=== PATIENT | female | born 1960 | race Caucasian/White ===

== ENCOUNTER 2019-08-12 12:23 | Outpatient (CLI) | payer OTHER, SELFPAY ==
[2019-08-12 12:47] LABS: Basophils Absolute Auto 0.04 K/mm3 (0.00-0.10); Basophils Percent Auto 0.6 % (0.0-1.0); Eosinophils Absolute Auto 0.31 K/mm3 (0.02-0.50); Eosinophils Percent Auto 4.7 % (1.0-6.0); Hematocrit 38.7 % (35.0-49.0); Hemoglobin 12.4 g/dL (12.0-15.0); Immature Granulocyte Absolute 0.02 K/mm3 (0.00-0.00); Immature Granulocyte Percent A 0.3 % (0.0-0.0); Lymphocytes Absolute Auto 1.89 K/mm3 (1.10-4.50); Lymphocytes Percent Auto 28.4 % (18.0-42.0); Mean Corpuscular Hemoglobin 27.1 pg (27.0-31.0); Mean Corpuscular Volume 84.7 fL (78.0-102.0); Mean Platelet Volume 9.3 fl (9.2-11.8); Monocytes Absolute Auto 0.66 K/mm3 (0.10-0.90); Monocytes Percent Auto 9.9 % (2.0-11.0); Neutrophils Absolute Auto 3.7 K/mm3 (1.7-7.2); Neutrophils Percent Auto 56.1 % (50.0-70.0); Platelet Count Result 254 K/mm3 (150-420); Red Blood Count 4.57 M/mm3 (4.20-5.40); Red Cell Distribution Width 15.1 % (11.6-14.4); White Blood Count 6.7 K/mm3 (4.8-10.8)
[2019-08-12 12:48] LABS: Add Urine Microscopic? YES; Appearance Urine Clear (Clear); Bilirubin Urine Negative (Negative); Blood Urine Negative (Negative); Color Urine Yellow (Yellow); Glucose Urine UA Negative (Negative); Ketones Urine Negative (Negative); Leukocyte Esterase Ur 1+ (Negative); Nitrate Urine Negative (Negative); Protein Urine Negative (Negative); Urobilinogen Urine 0.2 mg/dL (0.2-1.0)
[2019-08-12 13:01] LABS: Bacteria Urine 2+ /hpf; RBC Urine 0-2 /hpf (0-2); Squamous Epithelial Cell Urine Moderate /hpf (Few); WBC Urine 16-20 /hpf (0-3)
[2019-08-12 13:37] LABS: Alanine Aminotransferase 39 U/L (14-59); Albumin Level 3.3 g/dL (3.4-5.0); Alkaline Phosphatase 72 U/L (46-116); Anion Gap 13.4 mmol/L (7-16); Aspartate Amino Transferase 25 U/L (15-37); Bilirubin,Total 0.4 mg/dL (0.00-1.00); Blood Urea Nitrogen 18 mg/dL (7-18); Calcium 8.5 mg/dL (8.5-10.1); Carbon Dioxide 26 mmol/L (21-32); Chloride 107 mmol/L (98-108); Cholesterol 158 mg/dL (0-200); Estimated Glomerular Filt Rate 56; Free T3 2.25 pg/mL (2.18-3.98); Free T4 Free Thyroxine 0.89 ng/dL (0.76-1.46); Glucose 88 mg/dL (70-99); HDL Direct 44 mg/dL (40-60); LDL Cholesterol Calculated 97 mg/dL (<130); Osmolality Calculated 294 mOsm/kg (285-295); Potassium 4.4 mmol/L (3.5-5.1); Sodium 142 mmol/L (136-145); Thyroid Stimulating Hormone 4.94 uIU/mL (0.36-3.74); Total Protein 6.9 g/dL (6.4-8.2); Triglycerides 83 mg/dL (0-150)
[2019-08-14 20:14] LABS: Vitamin D 25 Hydroxy 32 ng/mL (30-100)
== END 2019-08-12 12:24 | disposition home or self-care (01) ==
LOC: CHSLAB 12:27
PROVIDERS: PCP Internal Medicine; Visit Provider Internal Medicine
DX: I12.9 Hypertensive chronic kidney disease with stage 1 through stage 4 chronic kidney disease, or unspecified chronic kidney disease (principal); N18.2 Chronic kidney disease, stage 2 (mild); M81.0 Age-related osteoporosis without current pathological fracture; E03.4 Atrophy of thyroid (acquired); E78.2 Mixed hyperlipidemia; E87.2 Acidosis; E21.0 Primary hyperparathyroidism
CPT/HCPCS: 36415; 80053; 80061; 81001; 82306; 84439; 84443; 84481; 85025

== ENCOUNTER 2019-10-24 10:34 | Emergency (ER) | payer OTHER, SELFPAY ==
--- NOTE | ~2019-10-24 | XR_ITS ---
XR chest 2V DATE: 10/24/2019 11:48 INDICATION: Hemoptysis this morning TECHNIQUE: 2 views COMPARISON: 09/08/2012 PA and lateral chest FINDINGS: Normal heart size. There is mild aortic unfolding/tortuosity. No hilar or mediastinal enlar gement is evident. No pulmonary infiltrate or consolidation, pleural effusion or pulmonary vascular congestion or pneumo thorax. Surgical clips, right upper quadrant, likely due to cholecystectomy. Diffuse osteopenia. Rounded approximately 1.5 cm opacity of uncertain significance overlying a mid to lower lumbar verteb ral body on the lateral view. Consider lumbar spine radiographic examination. IMPRESSION: No active cardiopulmonary disease Reviewed, dictated and finalized at location A.
--- NOTE | ~2019-10-24 | CT_ITS ---
EXAMINATION: CTA chest PE protocol DATE: 10/24/2019 12:50 INDICATION: Positive d-dimer. Hemoptysis. TECHNIQUE: Computed tomography angiography (CTA) of the chest was performed with 100 mL Omnipaque-350 intravenous contrast timed to evaluate the pulmonary arteries. Coronal maximum intensity projection 3D-reconstructions were created by the technologist. Automated exposure control and iterative reconst ruction technique were employed. Exam dose: 480.63 mGy-cm total exam DLP. COMPARISON: 10/23/2021 view chest FINDINGS: There is diagnostic contrast enhancement of the pulmonary arteries and no evidence of pulmo nary embolism. No thoracic aortic aneurysm or dissection. No hilar or mediastinal mass lesion or lymphadenopathy. There is mild patchy groundglass density of the lungs which may indicate small airways disease. No pu lmonary consolidation or pulmonary mass lesion is evident. No pleural effusion. No pneumothorax. Postoperative change of the stomach consistent with gastric bypass surgery. Status post cholecystectomy. Prominent bilateral nephrolithiasis. Hemangioma of T12. IMPRESSION: No evidence of pulmonary embolism Status post cholecystectomy Status post gastric bypass surgery. Reviewed, dictated and finalized at Location A. Reviewed, dictated and finalized at location A.
[2019-10-24 11:00] VITALS: BP 152/75; PULSE 57; RESP 16; TEMP 36.7; O2SAT 96
--- NOTE | 2019-10-24 11:15 | ECG_ITS ---
Measurements Intervals [place] Rate: 48 P: 56 OR: 173 QRS: -24 QRSD: 105 T: -23 QT: 453 QTc: 408 Interpretive Statements SINUS BRADYCARDIA EARLY PRECORDIAL R/S TRANSITION VOLTAGE CRITERIA FOR LVH T WAVE ABNORMALITY IN INFERIOR LEADS- CONSIDER ISCHEMIA ABNORMAL ECG Electronically Signed On 10-24-2019 11:30:57 CDT by Jean Mantilla D.O.
[2019-10-24 11:34] LABS: Basophils Absolute Auto 0.04 K/mm3 (0.00-0.10); Basophils Percent Auto 0.4 % (0.0-1.0); Eosinophils Absolute Auto 0.23 K/mm3 (0.02-0.50); Eosinophils Percent Auto 2.6 % (1.0-6.0); Hematocrit 37.6 % (35.0-49.0); Immature Granulocyte Absolute 0.03 K/mm3 (0.00-0.00); Immature Granulocyte Percent A 0.3 % (0.0-0.0); Lymphocytes Absolute Auto 1.68 K/mm3 (1.10-4.50); Lymphocytes Percent Auto 18.8 % (18.0-42.0); Mean Corpuscular HGB Conc 31.9 g/dL (32.0-36.0); Mean Corpuscular Hemoglobin 27.6 pg (27.0-31.0); Mean Corpuscular Volume 86.6 fL (78.0-102.0); Mean Platelet Volume 9.4 fl (9.2-11.8); Monocytes Absolute Auto 0.74 K/mm3 (0.10-0.90); Monocytes Percent Auto 8.3 % (2.0-11.0); Neutrophils Absolute Auto 6.2 K/mm3 (1.7-7.2); Neutrophils Percent Auto 69.6 % (50.0-70.0); Platelet Count Result 321 K/mm3 (150-420); Red Blood Count 4.34 M/mm3 (4.20-5.40); Red Cell Distribution Width 14.6 % (11.6-14.4); White Blood Count 8.9 K/mm3 (4.8-10.8)
[2019-10-24 11:49] LABS: INR 1.1; Partial Thromboplastin Time 26.9 SEC (22.3-31.6); Prothrombin Time 11.4 Seconds (9.64-11.0)
[2019-10-24 11:55] LABS: Alanine Aminotransferase 47 U/L (14-59); Alkaline Phosphatase 84 U/L (46-116); Anion Gap 15.3 mmol/L (7-16); Aspartate Amino Transferase 33 U/L (15-37); Bilirubin,Total 0.3 mg/dL (0.00-1.00); Blood Urea Nitrogen 26 mg/dL (7-18); Calcium 8.9 mg/dL (8.5-10.1); Carbon Dioxide 25 mmol/L (21-32); Chloride 105 mmol/L (98-108); Estimated Glomerular Filt Rate 49; Glucose 95 mg/dL (70-99); Osmolality Calculated 296 mOsm/kg (285-295); Potassium 4.3 mmol/L (3.5-5.1); Sodium 141 mmol/L (136-145); Total Protein 7.6 g/dL (6.4-8.2); Troponin I < 0.02 ng/mL (0.00-0.056)
[2019-10-24 11:56] LABS: D Dimer 0.85 mg/L (0.19-0.50)
[2019-10-24 12:17] LABS: Appearance Urine Sl Cloudy (Clear); Bilirubin Urine Negative (Negative); Color Urine Yellow (Yellow); Glucose Urine UA Negative (Negative); Ketones Urine Negative (Negative); Leukocyte Esterase Ur 3+ (Negative); Nitrate Urine Negative (Negative); Protein Urine 1+ (Negative); Specific Grav Ur 1.015 (1.010-1.020); Urobilinogen Urine 0.2 mg/dL (0.2-1.0); pH Urine 7.5 (5.0-8.0)
[2019-10-24 12:25] LABS: Add Urine Microscopic? YES; Bacteria Urine 1+ /hpf; Blood Urine Trace-Intact (Negative); RBC Urine 0-2 /hpf (0-2); Squamous Epithelial Cell Urine Rare /hpf (Few); WBC Urine 31-50 /hpf (0-3)
--- NOTE | 2019-10-24 13:12 | ED.GENADULT ---
HPI - General Adult General Chief complaint: Upper Respiratory Infection Stated complaint: Coughing up blood Source: patient Mode of arrival: ambulatory History of Present Illness HPI narrative: this is a 59-year-old female with some history of a chronic cough that she has had for 4 months with some nasal discharge and drainage and quite a bit of sputum production that presents with an episode of hemoptysis, where she saw some blood is tinged sputum, with no fever chills no shortness of breath no chest pain no nausea vomiting no diarrhea constipation. Patient has a history of a renal tubular acidosis, with some hyperparathyroidism, with history of trichotillomania and history of kidney stones. Currently the patient denies having shortness of breath cough is currently productive of blood-tinged sputum otherwise mainly related to postnasal drip and chronic cough possibly related to sinus congestion. Patient was also treated for urinary tract infection and recently finished a course of antibiotics, currently there is no dysuria no suprapubic tenderness. Onset (ago): day(s) Severity: mild Exacerbating factors: other ( Coughing) Associated symptoms: cough Treatments prior to arrival: none Related Data Home Medications Medication Instructions Recorded Confirmed amitriptyline 10/24/19 calcitriol 10/24/19 cetirizine [Allergy Relief mg 10/24/19 (cetirizine)] fluoxetine mg 10/24/19 levothyroxine 10/24/19 lisinopril 10/24/19 metoprolol succinate PO 10/24/19 nitrofurantoin monohyd/m-cryst 10/24/19 potassium chloride meq PO 10/24/19 sodium bicarbonate 10/24/19 10/24/19 Allergies Allergy/AdvReac Type Severity Reaction Status Date / Time ciprofloxacin [From Cipro] Allergy Hives Verified 10/24/19 13:04 Review of Systems Review of Systems: All systems reviewed & are unremarkable except as noted in HPI and below [facility] Past Medical History Medical History HTN (hypertension) Hyperparathyroidism Renal tubular acidosis Trichotillomania Exam Const: General: no acute distress and alert Orientation/consciousness: patient oriented x3 HENMT: Head: normal to inspection Ears: TM's normal bilaterally Mouth: Yes Normal oral and palatal mucosa present and Yes moist mucous membranes Throat: posterior oropharynx normal Eyes: Conjunctivae: conjunctivae normal Pupils: Equal, round and reactive pupils present EOM: EOMs intact bilaterally Neck: Neck: normal visual inspection and no lymphadenopathy Chest: Chest palpation & inspection: normal inspection of the chest Resp: Effort & Inspection: normal respiratory effort Auscultation: clear to auscultation bilaterally Cardio: Rate: regular rate and bradycardic GI: GI Palp: Yes Soft to palpation Urinary Catheter: Urinary Catheter: patent and draining Back/Spine/Pelvis: Back: no CVA tenderness Skin: General skin exam: normal color Rashes: no rashes Neuro: General: patient oriented x3 Extrem: General: normal to inspection Course Course Emergency Course: reassessment of patient, patient vitals are stable she is breathing easily and comfortably with currently no cough no fever or chills and no chest pain. Vital Signs Vital signs: Vital Signs Temperature 36.7 C 10/24/19 11:00 Pulse Rate 57 L 10/24/19 11:00 Respiratory Rate 16 10/24/19 11:00 Blood Pressure 152/75 H 10/24/19 11:00 Pulse Oximetry 96 10/24/19 11:00 Temperature 36.7 C 10/24/19 11:00 Pulse Rate 57 L 10/24/19 11:00 Respiratory Rate 16 10/24/19 11:00 Blood Pressure 152/75 H 10/24/19 11:00 Pulse Oximetry 96 10/24/19 11:00 Medical Decision Making Vital Signs Vital Signs: Vital Signs Temperature 36.7 C 10/24/19 11:00 Pulse Rate 57 L 10/24/19 11:00 Respiratory Rate 16 10/24/19 11:00 Blood Pressure 152/75 H 10/24/19 11:00 Pulse Oximetry 96 10/24/19 11:00 Temperature 36.7 C
[2019-10-24 13:28] VITALS: BP 111/62
== END 2019-10-24 13:29 | disposition home or self-care (01) ==
PROVIDERS: Emergency Provider Emergency Medicine; PCP Internal Medicine
DX: J40 Bronchitis, not specified as acute or chronic (principal); R04.2 Hemoptysis
CPT/HCPCS: 36415; 71046; 71275; 80053; 81001; 84484; 85025; 85380; 85610; 85730; 93005; 99284; Q9965

== ENCOUNTER 2019-11-14 09:28 | Outpatient (CLI) | payer OTHER, SELFPAY ==
--- NOTE | ~2019-11-14 | US_ITS ---
EXAMINATION: US retroperitoneal comp DATE: 11/14/2019 11:28 INDICATION: hypertension. Stage III chronic kidney disease. TECHNIQUE: Multiple ultrasound grayscale images of the kidneys were obtained. COMPARISON: CT chest dated 10/24/2019 FINDINGS: The right kidney measures 11.2 x 4.0 x 4.4 cm. The left kidney measures 9.4 x 4.1 x 4.4 cm. The kidne ys demonstrate normal echogenicity. Prominent shadowing stones in calyces throughout the right kidney the largest measuring 1.6 cm. There is no hydronephrosis in either kidney. The bladder is normal. IMPRESSION: 1. Right-sided nephrolithiasis. No hydronephrosis. Reviewed, dictated and finalized at location A.
== END 2019-11-14 09:29 | disposition home or self-care (01) ==
PROVIDERS: PCP Internal Medicine; Visit Provider Internal Medicine Nephrology
DX: I12.9 Hypertensive chronic kidney disease with stage 1 through stage 4 chronic kidney disease, or unspecified chronic kidney disease (principal); N18.3 Chronic kidney disease, stage 3 (moderate)
CPT/HCPCS: 76770

== ENCOUNTER 2019-11-20 11:40 | Outpatient (CLI) | payer OTHER, SELFPAY ==
--- NOTE | ~2019-11-20 | XR_ITS ---
MODIFIED ESOPHAGRAM HISTORY: Dysphagia. TECHNIQUE: Modified barium esophagram was performed on 11/20/2019. I administered fluoroscopy and perf ormed the exam with speech pathologist. Patient was seated for lateral fluoroscopic imaging for rosaline stion of thin liquids, pudding, solids and quantified amounts, followed by thin liquids in uncontroll ed amounts. This was recorded on tape. No fluoroscopic images were recorded. The DAP for this procedu re was 0.994 Gycm2. The amount of fluoroscopy time used during this procedure was 1.3 minutes. FINDINGS: Oral stage: Adequate function. Pharyngeal stage: Adequate function. Cervical/esophageal stage: Adequate function. IMPRESSION: Patient tolerated regular consistency oral feedings in the upright position. Please wesley elate with speech pathologist findings and specific feeding recommendations. Reviewed, dictated and finalized at location D. IMPRESSION: Patient tolerated regular consistency oral feedings in the upright position. Please correlate with speech pathologist findings and specific feedi ng recommendations.
[2019-11-20 13:22] LABS: Add Urine Microscopic? YES; Appearance Urine Clear (Clear); Bilirubin Urine Negative (Negative); Blood Urine Negative (Negative); Color Urine Yellow (Yellow); Glucose Urine UA Negative (Negative); Ketones Urine Negative (Negative); Leukocyte Esterase Ur 1+ (Negative); Nitrate Urine Negative (Negative); Protein Urine Negative (Negative); Specific Grav Ur 1.015 (1.010-1.020); Urobilinogen Urine 0.2 mg/dL (0.2-1.0)
[2019-11-20 13:26] LABS: RBC Urine 0-2 /hpf (0-2); WBC Urine 16-20 /hpf (0-3)
[2019-11-20 13:27] LABS: Bacteria Urine 1+ /hpf; Squamous Epithelial Cell Urine Moderate /hpf (Few)
--- NOTE | 2019-11-20 17:35 | STOPEVAL ---
MODIFED BARIUM SWALLOW EVALUATION: Thank you for referring Louise Moore to [facility]. Attending Provider: Priyank Zepeda MD Referring Provider: ANSON Outpatient Evaluation: BERTA Start: 11/20/19 17:28 Freq: Status: Active Protocol: Document 11/20/19 12:00 BECHERERT (Rec: 11/20/19 17:35 BECHERERT [email or web address]) Therapy Assessment Status Assessment Status Assessment Status Evaluation Outpatient Past Medical History Past Medical History Source of Past Medical History Patient Neurological History Hx Neurological Disorders No Significant History Cardiovascular History Hx Cardiac Disorders No Significant History Respiratory History Hx Respiratory Disorders No Significant History Gastrointestinal History Hx Appendectomy Yes Hx Cholecystectomy Yes Hx Gastric Bypass Surgery Yes Genitourinary History Hx Kidney Stones Yes Endocrine History Hx Hyperthyroidism Yes Hx Other Endocrine Disorders Yes: THYROID SURGERY Psychosocial History Hx Other Psychiatric Disorders Yes: TRICHOTILLOMANIA Evaluation Information Problem Diagnosis dysphagia Onset few years Prior Level of Function Prior Swallow Level Prior Intake Method Oral Prior Diet Regular (Level 7 Diet) Prior Liquid Consistency Thin (Level 0 Diet) Comments Additional Prior Level of Function Reports that she can swallow Comments wrong even with saliva Pain Assessment Timing of Pain Assessment Timing of Pain Assessment Assessment Self Report Self Report Pain Level 0 Pain Scale Pain Scale Used Numeric (1 - 10) Pain Score Pain Score 0: Self Report Modified Barium Swallow Evaluation Recent Swallowing History Reports Dysphagia Yes: I swallow wrong and choke then I have a coughing fit Duration of Dysphagia few years per pt Dentition Comments good Consistency Thin Uncontrolled 1 Other Amount cup and straw Oral Preparatory Symptoms None Oral Phase Symptoms None Pharyngeal Phase Symptoms None Severity of Vallecular Residue None - 0% No Residue Severity of Pyriform Sinus Residue None - 0% No Residue 8 Point Laryngeal Penetration-Aspiration Material Does Not Enter Airway Scale Cervical/Esophageal Symptoms None Solid Consistency Method of Presentation Spoon Oral Preparatory Symptoms None Oral Phase Symptoms None Pharyngeal Phase Symptoms None Severity of Vallecular Residue None - 0% No Residue Severity of Pyriform Sinus Residue None - 0% No Residue 8 Point Laryngeal Penetration-Aspiration Material Does Not Enter Airway Scale
== END 2019-11-20 11:41 | disposition home or self-care (01) ==
LOC: CHSIMG 11:41
PROVIDERS: PCP Internal Medicine; Visit Provider Internal Medicine
DX: R13.10 Dysphagia, unspecified (principal); R31.9 Hematuria, unspecified
CPT/HCPCS: 81001; 87086; 87088; 92611

== ENCOUNTER 2020-06-29 12:06 | Outpatient (CLI) | payer OTHER, SELFPAY ==
[2020-06-29 12:43] LABS: Anion Gap 10 mmol/L (8-16); Blood Urea Nitrogen 18 mg/dL (7-18); Calcium 8.6 mg/dL (8.5-10.1); Carbon Dioxide 26 mmol/L (21-32); Chloride 103 mmol/L (98-108); Estimated Glomerular Filt Rate 46; Glucose 93 mg/dL (70-99); Osmolality Calculated 289 mOsm/kg (285-295); Phosphorus 4.6 mg/dL (2.6-4.7); Potassium 4.3 mmol/L (3.5-5.1); Sodium 139 mmol/L (136-145)
[2020-07-02 12:14] LABS: Vitamin D 25 Hydroxy 29 ng/mL (30-100)
[2020-07-03 14:18] LABS: Parathyroid Intact 48 pg/mL (14-64)
== END 2020-06-29 12:07 | disposition home or self-care (01) ==
PROVIDERS: PCP Internal Medicine
DX: E21.1 Secondary hyperparathyroidism, not elsewhere classified (principal)
CPT/HCPCS: 36415; 80048; 82306; 83970; 84100

== ENCOUNTER 2021-02-01 10:51 | Outpatient (CLI) | payer OTHER, SELFPAY ==
[2021-02-01 11:04] LABS: Collection Time Urine 24 HOURS
[2021-02-01 11:07] LABS: Basophils Absolute Auto 0.04 K/mm3 (0.00-0.10); Basophils Percent Auto 0.4 % (0.0-1.0); Eosinophils Absolute Auto 0.24 K/mm3 (0.02-0.50); Eosinophils Percent Auto 2.3 % (1.0-6.0); Hematocrit 34.4 % (35.0-49.0); Hemoglobin 10.7 g/dL (12.0-15.0); Immature Granulocyte Absolute 0.03 K/mm3 (0.00-0.00); Immature Granulocyte Percent A 0.3 % (0.0-0.0); Lymphocytes Percent Auto 19.5 % (18.0-42.0); Mean Corpuscular HGB Conc 31.1 g/dL (32.0-36.0); Mean Corpuscular Hemoglobin 26.2 pg (27.0-31.0); Mean Corpuscular Volume 84.1 fL (78.0-102.0); Mean Platelet Volume 9.6 fl (9.2-11.8); Monocytes Absolute Auto 0.93 K/mm3 (0.10-0.90); Monocytes Percent Auto 9.1 % (2.0-11.0); Neutrophils Percent Auto 68.4 % (50.0-70.0); Platelet Count Result 300 K/mm3 (150-420); Red Blood Count 4.09 M/mm3 (4.20-5.40); Red Cell Distribution Width 15.1 % (11.6-14.4); White Blood Count 10.2 K/mm3 (4.8-10.8)
[2021-02-01 11:16] LABS: Creatinine Urine 24.95 mg/dL (40-278); Patient Weight 221 Lbs
[2021-02-01 11:18] LABS: Total Volume 24 Hour Urine 3700 ml
[2021-02-01 11:32] LABS: Creatinine Clearance Urine 17.3 ml/min (97-137); Serum Creat 3.11
[2021-02-01 11:35] LABS: Alanine Aminotransferase 35 U/L (14-59); Albumin Level 3.2 g/dL (3.4-5.0); Alkaline Phosphatase 69 U/L (46-116); Anion Gap 9 mmol/L (8-16); Aspartate Amino Transferase 21 U/L (15-37); Bilirubin,Total 0.3 mg/dL (0.00-1.00); Blood Urea Nitrogen 37 mg/dL (7-18); Calcium 9.7 mg/dL (8.5-10.1); Carbon Dioxide 28 mmol/L (21-32); Chloride 103 mmol/L (98-108); Cholesterol 145 mg/dL (0-200); Estimated Glomerular Filt Rate 15; Glucose 91 mg/dL (70-99); HDL Direct 40 mg/dL (40-60); LDL Cholesterol Calculated 79 mg/dL (<130); Osmolality Calculated 298 mOsm/kg (285-295); Potassium 4.5 mmol/L (3.5-5.1); Sodium 140 mmol/L (136-145); Total Protein 7.2 g/dL (6.4-8.2); Triglycerides 129 mg/dL (0-150)
[2021-02-03 10:41] LABS: Parathyroid Intact 6 pg/mL (14-64)
== END 2021-02-01 10:52 | disposition home or self-care (01) ==
LOC: CHSLAB 10:53
PROVIDERS: PCP Internal Medicine; Visit Provider Internal Medicine Nephrology
DX: E21.1 Secondary hyperparathyroidism, not elsewhere classified (principal); I12.9 Hypertensive chronic kidney disease with stage 1 through stage 4 chronic kidney disease, or unspecified chronic kidney disease; N18.2 Chronic kidney disease, stage 2 (mild); E03.4 Atrophy of thyroid (acquired); E78.2 Mixed hyperlipidemia; R73.01 Impaired fasting glucose
CPT/HCPCS: 36415; 80053; 80061; 82575; 83036; 83970; 84100; 85025

== ENCOUNTER 2021-02-02 08:02 | Outpatient (NON) | payer OTHER, SELFPAY ==
[2021-02-02 08:09] LABS: Add Urine Microscopic? YES; Appearance Urine Clear (Clear); Bilirubin Urine Negative (Negative); Blood Urine Negative (Negative); Color Urine Light Yellow (Yellow); Glucose Urine UA Negative (Negative); Ketones Urine Negative (Negative); Leukocyte Esterase Ur 2+ (Negative); Nitrate Urine Negative (Negative); Protein Urine Negative (Negative); Urobilinogen Urine 0.2 mg/dL (0.2-1.0)
[2021-02-02 08:18] LABS: Bacteria Urine Trace /hpf; RBC Urine 0-2 /hpf (0-2); Squamous Epithelial Cell Urine Moderate /hpf (Few)
== END 2021-02-02 08:03 | disposition home or self-care (01) ==
LOC: CHSLAB 08:04
PROVIDERS: Visit Provider Internal Medicine
DX: E03.4 Atrophy of thyroid (acquired) (principal); I12.9 Hypertensive chronic kidney disease with stage 1 through stage 4 chronic kidney disease, or unspecified chronic kidney disease; N18.30 Chronic kidney disease, stage 3 unspecified; E78.2 Mixed hyperlipidemia; R73.01 Impaired fasting glucose
CPT/HCPCS: 81001

== ENCOUNTER 2021-02-05 10:13 | Outpatient (CLI) | payer OTHER, SELFPAY ==
--- NOTE | ~2021-02-05 | US_ITS ---
EXAMINATION: US retroperitoneal comp EXAM DATE: 02/05/2021 10:58 INDICATION: Acute renal impairment. History of kidney stones. TECHNIQUE: Multiple grayscale and Doppler images of the kidneys were obtained (by a technologist who performed the scan) and subsequently reviewed. There is no prior study for comparison. FINDINGS: Diffusely echogenic renal medullas bilaterally, multiple kidney stones. Some of these regio ns do demonstrate shadowing, or focal nephrolithiasis. No hydronephrosis. Bladder is unremarkable. Ri ght kidney measures 10.4 x 4.1 x 3.9 cm, left measuring 9.9 x 4.3 x 4.4 cm. IMPRESSION: Chronic bilateral nephrolithiasis. No hydronephrosis. Reviewed, dictated and finalized at location B.
== END 2021-02-05 10:14 | disposition home or self-care (01) ==
LOC: CHSIMG 10:15
PROVIDERS: PCP Internal Medicine; Visit Provider Internal Medicine Nephrology
DX: Z87.442 Personal history of urinary calculi (principal); N28.9 Disorder of kidney and ureter, unspecified
CPT/HCPCS: 76770

== ENCOUNTER 2021-02-10 09:23 | Outpatient (CLI) | payer OTHER, SELFPAY ==
--- NOTE | ~2021-02-10 | CT_ITS ---
EXAMINATION: CT abdomen pelvis wo con EXAM DATE: 02/10/2021 10:08 INDICATION: Acute the oblique kidney failure/metabolic acidosis/hypoalbuminemia. Abnormal ultrasound. TECHNIQUE: Spiral CT of the abdomen and pelvis was performed without contrast. Axial, coronal and s agittal images of the abdomen and pelvis were reviewed. The dose-length product (DLP) for this exami nation was 1227.44 mGy-cm. The exposure was tailored according to patient size (auto mA exposure con trol), and iterative reconstruction (ASIR) was used as additional dose reduction technique. Correlati on is made to ultrasound 02/05/2021. FINDINGS: The liver, spleen, adrenal glands and pancreas are unremarkable. There are cholecystectomy clips. Large bilateral calyceal stones, up to 2 cm on the right. Probably also medullary nephrocalc inosis. No hydronephrosis or ureteral stones. The uterus is unremarkable. The bladder is unremarka ble. There is no retroperitoneal or pelvic lymphadenopathy. Ileocolic anastomosis material. There are surgical changes consistent with gastric sleeve procedure. There is expected amount of colonic stool. No free intraperitoneal gas. The heart is normal in size. There are no pericardial or pleural effusions. The lung bases are unremarkable. There are no osteoblastic or osteolytic lesions identified. IMPRESSION: 1. Large bilateral nephrolithiasis and probably nephrocalcinosis. 2. Surgical changes. Reviewed, dictated and finalized at location A.
[2021-02-10 10:56] LABS: Appearance Urine Sl Cloudy (Clear); Bilirubin Urine Negative (Negative); Color Urine Light Yellow (Yellow); Glucose Urine UA Negative (Negative); Ketones Urine Negative (Negative); Leukocyte Esterase Ur 3+ (Negative); Nitrate Urine Negative (Negative); Protein Urine Negative (Negative); Specific Grav Ur 1.015 (1.010-1.020); Urobilinogen Urine 0.2 mg/dL (0.2-1.0)
[2021-02-10 11:02] LABS: Add Urine Microscopic? YES; Bacteria Urine Trace /hpf; Blood Urine Trace-lysed (Negative); RBC Urine 0-2 /hpf (0-2); Squamous Epithelial Cell Urine Moderate /hpf (Few)
[2021-02-10 17:16] LABS: Albumin Level 3.4 g/dL (3.4-5.0); Anion Gap 7 mmol/L (8-16); Blood Urea Nitrogen 45 mg/dL (7-18); Calcium 10.1 mg/dL (8.5-10.1); Carbon Dioxide 34 mmol/L (21-32); Chloride 104 mmol/L (98-108); Estimated Glomerular Filt Rate 17; Glucose 77 mg/dL (70-99); Osmolality Calculated 310 mOsm/kg (285-295); Phosphorus 4.7 mg/dL (2.6-4.7); Potassium 4.3 mmol/L (3.5-5.1); Sodium 145 mmol/L (136-145)
[2021-02-13 12:36] LABS: Parathyroid Intact 4 pg/mL (14-64)
== END 2021-02-10 09:24 | disposition home or self-care (01) ==
PROVIDERS: PCP Internal Medicine; Visit Provider Internal Medicine Nephrology
DX: E87.2 Acidosis (principal); N17.8 Other acute kidney failure; Z87.442 Personal history of urinary calculi; E88.09 Other disorders of plasma-protein metabolism, not elsewhere classified
CPT/HCPCS: 36415; 74176; 80069; 81001; 83970; 87086

== ENCOUNTER 2021-03-17 13:01 | Outpatient (CLI) | payer OTHER, SELFPAY ==
[2021-03-17 13:16] LABS: Basophils Absolute Auto 0.03 K/mm3 (0.00-0.10); Basophils Percent Auto 0.4 % (0.0-1.0); Eosinophils Absolute Auto 0.29 K/mm3 (0.02-0.50); Eosinophils Percent Auto 3.9 % (1.0-6.0); Hematocrit 35.8 % (35.0-49.0); Hemoglobin 11.2 g/dL (12.0-15.0); Immature Granulocyte Absolute 0.03 K/mm3 (0.00-0.00); Immature Granulocyte Percent A 0.4 % (0.0-0.0); Lymphocytes Absolute Auto 1.52 K/mm3 (1.10-4.50); Lymphocytes Percent Auto 20.5 % (18.0-42.0); Mean Corpuscular HGB Conc 31.3 g/dL (32.0-36.0); Mean Corpuscular Hemoglobin 26.4 pg (27.0-31.0); Mean Corpuscular Volume 84.4 fL (78.0-102.0); Monocytes Absolute Auto 0.58 K/mm3 (0.10-0.90); Monocytes Percent Auto 7.8 % (2.0-11.0); Platelet Count Result 285 K/mm3 (150-420); Red Blood Count 4.24 M/mm3 (4.20-5.40); Red Cell Distribution Width 16.6 % (11.6-14.4); White Blood Count 7.4 K/mm3 (4.8-10.8)
[2021-03-17 14:10] LABS: Albumin Level 3.1 g/dL (3.4-5.0); Anion Gap 8 mmol/L (8-16); Blood Urea Nitrogen 17 mg/dL (7-18); Calcium 7.9 mg/dL (8.5-10.1); Carbon Dioxide 29 mmol/L (21-32); Chloride 107 mmol/L (98-108); Estimated Glomerular Filt Rate 44; Glucose 97 mg/dL (70-99); Osmolality Calculated 299 mOsm/kg (285-295); Phosphorus 2.4 mg/dL (2.6-4.7); Potassium 4.8 mmol/L (3.5-5.1); Sodium 144 mmol/L (136-145)
[2021-03-20 12:16] LABS: Parathyroid Intact 163 pg/mL (14-64)
[2021-03-21 14:48] LABS: Total Volume 3000 mL; Urine Calcium 2.3 mg/dL
== END 2021-03-17 13:02 | disposition home or self-care (01) ==
LOC: CHSLAB 13:04
PROVIDERS: PCP Internal Medicine; Visit Provider Internal Medicine Nephrology
DX: I12.9 Hypertensive chronic kidney disease with stage 1 through stage 4 chronic kidney disease, or unspecified chronic kidney disease (principal); N18.4 Chronic kidney disease, stage 4 (severe); N25.81 Secondary hyperparathyroidism of renal origin
CPT/HCPCS: 36415; 80069; 82340; 83945; 83970; 85025

== ENCOUNTER 2021-05-06 14:03 | Outpatient (CLI) | payer OTHER, SELFPAY ==
--- NOTE | ~2021-05-06 | XR_ITS ---
EXAMINATION: XR chest 2V 05/06/2021 14:57 INDICATION: Hypertension. Renal surgery. PROCEDURE: 2 view chest COMPARISON: 10/24/2019 FINDINGS: The lungs are clear. The cardiomediastinal silhouette is within normal limits. There are no pleural effusions. There is no pneumothorax suspected. There are healed left rib fractures. IMPRESSION: 1: NO ACUTE CARDIOPULMONARY DISEASE. Reviewed, dictated and finalized at location B. ERTY CLAIM REP
[2021-05-06 14:27] LABS: Basophils Absolute Auto 0.05 K/mm3 (0.00-0.10); Basophils Percent Auto 0.6 % (0.0-1.0); Eosinophils Absolute Auto 0.31 K/mm3 (0.02-0.50); Eosinophils Percent Auto 3.6 % (1.0-6.0); Hematocrit 34.9 % (35.0-49.0); Hemoglobin 10.5 g/dL (12.0-15.0); Immature Granulocyte Absolute 0.02 K/mm3 (0.00-0.00); Immature Granulocyte Percent A 0.2 % (0.0-0.0); Lymphocytes Percent Auto 18.8 % (18.0-42.0); Mean Corpuscular HGB Conc 30.1 g/dL (32.0-36.0); Mean Corpuscular Hemoglobin 25.2 pg (27.0-31.0); Mean Corpuscular Volume 83.7 fL (78.0-102.0); Mean Platelet Volume 9.7 fl (9.2-11.8); Monocytes Absolute Auto 0.64 K/mm3 (0.10-0.90); Monocytes Percent Auto 7.5 % (2.0-11.0); Neutrophils Absolute Auto 5.9 K/mm3 (1.7-7.2); Neutrophils Percent Auto 69.3 % (50.0-70.0); Platelet Count Result 316 K/mm3 (150-420); Red Blood Count 4.17 M/mm3 (4.20-5.40); Red Cell Distribution Width 14.7 % (11.6-14.4); White Blood Count 8.5 K/mm3 (4.8-10.8)
[2021-05-06 14:28] LABS: Add Urine Microscopic? YES; Appearance Urine Clear (Clear); Bilirubin Urine Negative (Negative); Blood Urine Negative (Negative); Color Urine Light Yellow (Yellow); Glucose Urine UA Negative (Negative); Ketones Urine Negative (Negative); Leukocyte Esterase Ur 3+ (Negative); Nitrate Urine Negative (Negative); Protein Urine Negative (Negative); Urobilinogen Urine 0.2 mg/dL (0.2-1.0); pH Urine 7.5 (5.0-8.0)
--- NOTE | 2021-05-06 14:28 | ECG_ITS ---
Measurements Intervals [place] Rate: 58 P: 43 NE: 171 QRS: -36 QRSD: 104 T: 5 QT: 423 QTc: 418 Interpretive Statements SINUS BRADYCARDIA LEFT AXIS DEVIATION EARLY PRECORDIAL R/S TRANSITION VOLTAGE CRITERIA FOR LVH MINIMAL Q WAVES- ANT/HIGH LAT LEADS BORDERLINE T WAVE ABNORMALITY- INFERIOR LEADS BORDERLINE ECG Electronically Signed On 05-06-2021 14:54:52 [employer] by Jean Mantilla D.O.
[2021-05-06 14:36] LABS: Squamous Epithelial Cell Urine Few /hpf (Few); WBC Urine 51-75 /hpf (0-3)
[2021-05-06 14:37] LABS: Bacteria Urine 1+ /hpf
[2021-05-06 14:55] LABS: Alanine Aminotransferase 33 U/L (14-59); Albumin Level 3.1 g/dL (3.4-5.0); Alkaline Phosphatase 89 U/L (46-116); Anion Gap 10 mmol/L (8-16); Aspartate Amino Transferase 18 U/L (15-37); Bilirubin,Total 0.3 mg/dL (0.00-1.00); Blood Urea Nitrogen 21 mg/dL (7-18); Calcium 8.4 mg/dL (8.5-10.1); Carbon Dioxide 27 mmol/L (21-32); Chloride 106 mmol/L (98-108); Estimated Glomerular Filt Rate 42; Glucose 92 mg/dL (70-99); Osmolality Calculated 299 mOsm/kg (285-295); Potassium 4.7 mmol/L (3.5-5.1); Sodium 143 mmol/L (136-145); Total Protein 7.5 g/dL (6.4-8.2)
[2021-05-06 15:31] LABS: Free T4 Free Thyroxine 0.84 ng/dL (0.76-1.46); Thyroid Stimulating Hormone 3.72 uIU/mL (0.36-3.74)
== END 2021-05-06 14:04 | disposition home or self-care (01) ==
PROVIDERS: PCP Internal Medicine; Visit Provider Internal Medicine
DX: Z01.810 Encounter for preprocedural cardiovascular examination (principal); Z01.812 Encounter for preprocedural laboratory examination; I10 Essential (primary) hypertension; E03.9 Hypothyroidism, unspecified; N39.0 Urinary tract infection, site not specified; E87.2 Acidosis
CPT/HCPCS: 36415; 71046; 80053; 81001; 84439; 84443; 84481; 85025; 87086; 87088; 93005

== ENCOUNTER 2021-05-13 12:01 | Outpatient (CLI) | payer OTHER, SELFPAY ==
--- NOTE | ~2021-05-13 | XR_ITS ---
EXAMINATION: XR abdomen/kub 1V EXAM DATE: 05/13/2021 12:31 INDICATION: Back Pain, R Kidney Stone. TECHNIQUE: Frontal projection of the upper abdomen, frontal projection lower abdomen/pelvis for inter pretation. There is no prior study for comparison. FINDINGS: Dense bilateral nephrolithiasis. Cholecystectomy clips. Upper abdominal suture material. M oderate amount of colonic stool. There is no organomegaly. IMPRESSION: Bilateral nephrolithiasis. Reviewed, dictated and finalized at location A. NT INSIGHTS CONSULTANT IMPRESSION: Bilateral nephrolithiasis.
--- NOTE | ~2021-05-13 | XR_ITS ---
EXAMINATION: XR lumbar spine 2-3V EXAM DATE: 05/13/2021 12:31 INDICATION: Back Pain, R Kidney Stone. TECHNIQUE: Lumber spine frontal, lateral, lateral L5-S1 projections for interpretation. There is no prior study for comparison. FINDINGS: Sizable bilateral nephrolithiasis, right more than left. No calcifications identified over the course of the ureters. Moderate lumbar facet arthropathy. The disc heights are maintained. Minima l compression fracture of the L1 vertebral body, which was not present on a CT scan in February, pot entially could be acute and causing patient's back pain. Minimal lumbar levocurvature. Cholecystectom y clips and upper abdominal suture material. IMPRESSION: 1. L1 minimal compression which could be acute. 2. Moderate facet arthropathy. Reviewed, dictated and finalized at location A. ITE HEATER
[2021-05-13 12:56] LABS: Add Urine Microscopic? YES; Appearance Urine Clear (Clear); Bilirubin Urine Negative (Negative); Blood Urine 1+ (Negative); Color Urine Light Yellow (Yellow); Glucose Urine UA Negative (Negative); Ketones Urine Negative (Negative); Leukocyte Esterase Ur 2+ (Negative); Nitrate Urine Negative (Negative); Protein Urine Negative (Negative); Urobilinogen Urine 0.2 mg/dL (0.2-1.0)
[2021-05-13 13:06] LABS: Squamous Epithelial Cell Urine Few /hpf (Few)
[2021-05-13 13:07] LABS: Bacteria Urine Trace /hpf
== END 2021-05-13 12:02 | disposition home or self-care (01) ==
LOC: CHSLAB 12:03
PROVIDERS: PCP Internal Medicine; Visit Provider Nurse Practitioner Family
DX: M54.9 Dorsalgia, unspecified (principal); N20.0 Calculus of kidney
CPT/HCPCS: 72100; 74018; 81001; 87086; 87088

== ENCOUNTER 2021-05-14 19:43 | Emergency (ER) | payer OTHER, SELFPAY ==
--- NOTE | 2021-05-14 19:58 | ED.BACK ---
HPI - Back Pain/Injury General Chief Complaint: Back Pain/Injury Stated Complaint: back pain Source: patient and RN notes reviewed Mode of arrival: ambulatory Limitations: no limitations History of Present Illness HPI Narrative: Patient states that she was coughing significantly about 4 days ago when the pain got much worse. She called her primary care physician had an outpatient x-ray of lumbar spine which showed compression fracture of L1. She said that she is supposed to be getting the possible MRI. She is going to have surgery for a kidney stone with percutaneous lithotripsy in approximately 9 days. MD elicited complaint: back pain Onset (ago): week(s) (1) Timing: intermittent and progressively worsening Severity: moderate Quality: sharp and aching Exacerbating factors: movement Context: other (coughing) Associated symptoms: denies other symptoms Treatments prior to arrival: NSAIDS (yesterday) Work related injury: No Related Data Home Medications Medication Instructions Recorded Confirmed amitriptyline 10 mg PO DAILY 10/24/19 05/14/21 calcitriol 0.5 mcg PO DAILY 10/24/19 05/14/21 cetirizine [Allergy Relief 10 mg PO DAILY 10/24/19 05/14/21 (cetirizine)] fluoxetine 40 mg PO DAILY 10/24/19 05/14/21 levothyroxine 50 mcg PO DAILY 10/24/19 05/14/21 metoprolol succinate 50 mg PO DAILY 10/24/19 05/14/21 potassium chloride 20 meq PO DAILY 10/24/19 05/14/21 sodium bicarbonate 650 mg PO DAILY 10/24/19 05/14/21 Allergies Allergy/AdvReac Type Severity Reaction Status Date / Time ciprofloxacin [From Cipro] Allergy Hives Verified 10/24/19 13:04 Review of Systems Review of Systems: All systems reviewed & are unremarkable except as noted in HPI and below Constitutional: Constitutional: Denies chills and Denies fever(s) [facility] Past Medical History Medical History (Updated 05/14/21 @ 21:31 by Parminder Hensley MD) HTN (hypertension) Hyperparathyroidism Renal tubular acidosis Trichotillomania Surgical History Surgical History (Updated 05/14/21 @ 21:29 by Parminder Hensley MD) H/O gastric bypass H/O knee surgery H/O parathyroidectomy Social History Social History (Updated 05/14/21 @ 21:29 by Parminder Hensley MD) Smoking status: Never smoker Exam Const: General: healthy appearing and no acute distress Nutritional Appearance: well nourished Orientation/consciousness: patient oriented x3 HENMT: Head: normal to inspection Ears: external ears normal Face and sinus: normal facial exam Mouth: Yes moist mucous membranes Eyes: Conjunctivae: conjunctivae normal Pupils: Equal, round and reactive pupils present EOM: EOMs intact bilaterally Neck: Neck: normal visual inspection Resp: Effort & Inspection: normal respiratory effort Auscultation: clear to auscultation bilaterally Cardio: Rate: regular rate Rhythm: regular rhythm GI: GI Palp: Yes Soft to palpation and No Tenderness to palpation present (GI) Auscultation: normal bowel sounds Back/Spine/Pelvis: Cervical Spine: cervical ROM normal Thoracic/Lumbar Spine: straight leg raise negative bilaterally, pain with thoraco-lumbar ROM ( For flexion and backward extension) and lumbar spinal tenderness at L1 and at L2 Skin: General skin exam: normal color Rashes: no rashes Neuro: General: patient oriented x3, moves all extremities and no focal motor deficits Speech: normal speech Gait exam (Neuro): Normal gait present Motor exam (neuro): 5/5 motor strength present throughout Deep tendon reflexes (DTR's): Right patellar reflex intensity grade: 2+, Left patellar reflex intensity grade: 2+, Right ankle reflex intensity grade: 2+ and Left ankle reflex intensity grade: 2+ Extrem: General: normal to inspection and no clubbing, cyanosis or edema Psych: Appearance: grossly normal and well kempt Mental Status: mental status grossly normal Affect: normal affect Attitude: cooperative Thought content: Yes Normal thought content present Course Course Emergency C
[2021-05-14 20:07] VITALS: BP 129/83; PULSE 63; RESP 19; TEMP 37; O2SAT 98
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
[2021-05-14] MEDS: KETOROLAC (*BKC) 60 MG/2 ML VIAL IM (20:59)
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
[2021-05-14 21:40] VITALS: BP 134/95; PULSE 59; RESP 17; O2SAT 95
== END 2021-05-14 21:44 | disposition home or self-care (01) ==
PROVIDERS: Emergency Provider Emergency Medicine; PCP Internal Medicine
DX: S32.010A Wedge compression fracture of first lumbar vertebra, initial encounter for closed fracture (principal)
CPT/HCPCS: 96372; 99283; J1885

== ENCOUNTER 2021-06-04 10:31 | Outpatient (CLI) | payer OTHER, SELFPAY ==
--- NOTE | ~2021-06-04 | XR_ITS ---
EXAMINATION: XR lumbar spine 2-3V EXAM DATE: 06/04/2021 11:23 INDICATION: L1 fracture follow-up. TECHNIQUE: Lumber spine frontal, lateral, lateral L5-S1 projections for interpretation. Comparison is made to prior examination from 05/13/2021. FINDINGS: Development of sclerosis at the previously identified L1 compression fracture, has mild ant erior wedging today, mild progression of height loss compared to prior study. Sclerosis indicates rep arative response. Posterior cortex height appears maintained. The vertebral body and disc heights are otherwise well maintained. No other fractures identified. Mild to moderate lumbar facet arthropathy. Mild lumbar levoscoliosis. Bilateral nephrolithiasis. Sacrum, sacroiliac joints, sacral arcuate line s are intact. IMPRESSION: 1. Mild progression in L1-loss, but also development of sclerosis, reparative response. 2. Mild to moderate facet arthropathy. 3. Nephrolithiasis. Reviewed, dictated and finalized at location A. CONTROLLER
== END 2021-06-04 10:32 | disposition home or self-care (01) ==
LOC: CHSLAB 10:33 → CHSIMG 10:34
PROVIDERS: PCP Internal Medicine; Visit Provider Internal Medicine
DX: S32.019D Unspecified fracture of first lumbar vertebra, subsequent encounter for fracture with routine healing (principal)
CPT/HCPCS: 72100

== ENCOUNTER 2021-06-16 11:44 | Outpatient (CLI) | payer OTHER, SELFPAY ==
[2021-06-16 12:49] LABS: Albumin Level 3.3 g/dL (3.4-5.0); Anion Gap 10 mmol/L (8-16); Blood Urea Nitrogen 14 mg/dL (7-18); Calcium 8.8 mg/dL (8.5-10.1); Carbon Dioxide 27 mmol/L (21-32); Chloride 102 mmol/L (98-108); Estimated Glomerular Filt Rate 43; Glucose 92 mg/dL (70-99); Osmolality Calculated 288 mOsm/kg (285-295); Phosphorus 4.3 mg/dL (2.6-4.7); Potassium 4.5 mmol/L (3.5-5.1); Sodium 139 mmol/L (136-145)
== END 2021-06-16 11:45 | disposition home or self-care (01) ==
LOC: CHSLAB 11:48
PROVIDERS: PCP Internal Medicine; Visit Provider Internal Medicine Nephrology
DX: E87.2 Acidosis (principal); N18.32 Chronic kidney disease, stage 3b
CPT/HCPCS: 36415; 80069

== ENCOUNTER 2021-07-05 12:46 | Outpatient (CLI) | payer OTHER, SELFPAY ==
[2021-07-05 14:06] LABS: Alanine Aminotransferase 71 U/L (14-59); Albumin Level 3.3 g/dL (3.4-5.0); Alkaline Phosphatase 141 U/L (46-116); Anion Gap 10 mmol/L (8-16); Aspartate Amino Transferase 54 U/L (15-37); Bilirubin,Total 0.3 mg/dL (0.00-1.00); Blood Urea Nitrogen 17 mg/dL (7-18); Calcium 8.8 mg/dL (8.5-10.1); Carbon Dioxide 25 mmol/L (21-32); Chloride 103 mmol/L (98-108); Estimated Glomerular Filt Rate 50; Glucose 89 mg/dL (70-99); Osmolality Calculated 286 mOsm/kg (285-295); Phosphorus 4.2 mg/dL (2.6-4.7); Potassium 4.5 mmol/L (3.5-5.1); Sodium 138 mmol/L (136-145); Total Protein 7.4 g/dL (6.4-8.2)
[2021-07-07 22:35] LABS: Vitamin D 25 Hydroxy 29 ng/mL (30-100)
[2021-07-10 22:55] LABS: Parathyroid Intact 140 pg/mL (14-64)
== END 2021-07-05 12:47 | disposition home or self-care (01) ==
LOC: CHSLAB 12:48
PROVIDERS: PCP Internal Medicine
DX: E83.51 Hypocalcemia (principal)
CPT/HCPCS: 36415; 80053; 82306; 83970; 84100

== ENCOUNTER 2021-07-13 16:30 | Outpatient (CLI) | payer OTHER, SELFPAY ==
[2021-07-13 17:10] LABS: Basophils Absolute Auto 0.05 K/mm3 (0.00-0.10); Basophils Percent Auto 0.7 % (0.0-1.0); Eosinophils Absolute Auto 0.22 K/mm3 (0.02-0.50); Hematocrit 33.4 % (35.0-49.0); Immature Granulocyte Absolute 0.01 K/mm3 (0.00-0.00); Immature Granulocyte Percent A 0.1 % (0.0-0.0); Mean Corpuscular HGB Conc 29.9 g/dL (32.0-36.0); Mean Corpuscular Hemoglobin 23.1 pg (27.0-31.0); Mean Corpuscular Volume 77.3 fL (78.0-102.0); Mean Platelet Volume 9.7 fl (9.2-11.8); Monocytes Absolute Auto 0.67 K/mm3 (0.10-0.90); Monocytes Percent Auto 9.3 % (2.0-11.0); Neutrophils Absolute Auto 4.2 K/mm3 (1.7-7.2); Neutrophils Percent Auto 57.9 % (50.0-70.0); Platelet Count Result 307 K/mm3 (150-420); Red Blood Count 4.32 M/mm3 (4.20-5.40); Red Cell Distribution Width 17.3 % (11.6-14.4); White Blood Count 7.2 K/mm3 (4.8-10.8)
[2021-07-13 17:29] LABS: Albumin Level 3.3 g/dL (3.4-5.0); Anion Gap 13 mmol/L (8-16); Blood Urea Nitrogen 16 mg/dL (7-18); Calcium 8.6 mg/dL (8.5-10.1); Carbon Dioxide 23 mmol/L (21-32); Chloride 100 mmol/L (98-108); Estimated Glomerular Filt Rate 43; Glucose 83 mg/dL (70-99); Osmolality Calculated 282 mOsm/kg (285-295); Phosphorus 3.9 mg/dL (2.6-4.7); Sodium 136 mmol/L (136-145)
[2021-07-15 14:55] LABS: Parathyroid Intact 140 pg/mL (14-64)
== END 2021-07-13 16:31 | disposition home or self-care (01) ==
LOC: CHSLAB 16:32
PROVIDERS: PCP Internal Medicine; Visit Provider Internal Medicine Nephrology
DX: E21.0 Primary hyperparathyroidism (principal); I12.9 Hypertensive chronic kidney disease with stage 1 through stage 4 chronic kidney disease, or unspecified chronic kidney disease; N18.32 Chronic kidney disease, stage 3b
CPT/HCPCS: 36415; 80069; 83970; 85025

== ENCOUNTER 2021-08-06 12:39 | Outpatient (CLI) | payer OTHER, SELFPAY ==
[2021-08-06 14:03] LABS: Anion Gap 13 mmol/L (8-16); Blood Urea Nitrogen 14 mg/dL (7-18); Calcium 8.6 mg/dL (8.5-10.1); Carbon Dioxide 24 mmol/L (21-32); Chloride 104 mmol/L (98-108); Estimated Glomerular Filt Rate 52; Ferritin 6 ng/mL (8-252); Glucose 91 mg/dL (70-99); Iron 30 ug/dL (50-170); Osmolality Calculated 292 mOsm/kg (285-295); Percent Iron Saturation 6 % (12-57); Phosphorus 3.5 mg/dL (2.6-4.7); Potassium 4.5 mmol/L (3.5-5.1); Sodium 141 mmol/L (136-145)
[2021-08-09 07:53] LABS: Citric Acid/Creatinine Ratio 294 mg/24 h (100-1300); Total Volume 3300 mL; Urine Calcium 3.4 mg/dL
[2021-08-10 12:55] LABS: Parathyroid Intact 135 pg/mL (14-64); Vitamin D 25 Hydroxy 25 ng/mL (30-100)
== END 2021-08-06 12:40 | disposition home or self-care (01) ==
PROVIDERS: PCP Internal Medicine
DX: N18.31 Chronic kidney disease, stage 3a (principal); D50.8 Other iron deficiency anemias; N25.81 Secondary hyperparathyroidism of renal origin; E83.51 Hypocalcemia; M81.0 Age-related osteoporosis without current pathological fracture; K91.2 Postsurgical malabsorption, not elsewhere classified
CPT/HCPCS: 36415; 80048; 82306; 82340; 82507; 82570; 82728; 83540; 83550; 83970; 84100

== ENCOUNTER 2021-08-07 11:53 | Outpatient (CLI) | payer OTHER, SELFPAY ==
[2021-08-07 12:09] LABS: Occult Blood Negative (Negative)
[2021-08-07 12:10] LABS: Occult Blood Negative (Negative)
[2021-08-07 12:10] LABS: Occult Blood Negative (Negative)
== END 2021-08-07 11:54 | disposition home or self-care (01) ==
LOC: CHSLAB 11:59
PROVIDERS: PCP Internal Medicine; Visit Provider Internal Medicine Nephrology
DX: N18.31 Chronic kidney disease, stage 3a (principal); D50.8 Other iron deficiency anemias; N25.81 Secondary hyperparathyroidism of renal origin
CPT/HCPCS: 82272

== ENCOUNTER 2021-10-12 12:00 | Outpatient (CLI) | payer OTHER, SELFPAY ==
[2021-10-12 12:25] LABS: Appearance Urine Clear (Clear); Basophils Absolute Auto 0.04 K/mm3 (0.00-0.10); Basophils Percent Auto 0.6 % (0.0-1.0); Bilirubin Urine Negative (Negative); Color Urine Light Yellow (Yellow); Eosinophils Absolute Auto 0.27 K/mm3 (0.02-0.50); Eosinophils Percent Auto 4.3 % (1.0-6.0); Glucose Urine UA Negative (Negative); Hematocrit 35.4 % (35.0-49.0); Hemoglobin 10.3 g/dL (12.0-15.0); Immature Granulocyte Absolute 0.01 K/mm3 (0.00-0.00); Immature Granulocyte Percent A 0.2 % (0.0-0.0); Ketones Urine Negative (Negative); Leukocyte Esterase Ur 3+ (Negative); Lymphocytes Absolute Auto 2.03 K/mm3 (1.10-4.50); Lymphocytes Percent Auto 32.1 % (18.0-42.0); Mean Corpuscular HGB Conc 29.1 g/dL (32.0-36.0); Mean Corpuscular Volume 75.5 fL (78.0-102.0); Mean Platelet Volume 9.7 fl (9.2-11.8); Monocytes Absolute Auto 0.62 K/mm3 (0.10-0.90); Monocytes Percent Auto 9.8 % (2.0-11.0); Neutrophils Absolute Auto 3.4 K/mm3 (1.7-7.2); Nitrate Urine Negative (Negative); Platelet Count Result 345 K/mm3 (150-420); Protein Urine Negative (Negative); Red Blood Count 4.69 M/mm3 (4.20-5.40); Red Cell Distribution Width 18.4 % (11.6-14.4); Urobilinogen Urine 0.2 mg/dL (0.2-1.0); White Blood Count 6.3 K/mm3 (4.8-10.8)
[2021-10-12 12:29] LABS: Add Urine Microscopic? YES; Blood Urine Trace-lysed (Negative); RBC Urine None seen /hpf (0-2); WBC Urine 16-20 /hpf (0-3)
[2021-10-12 12:30] LABS: Bacteria Urine 1+ /hpf; Squamous Epithelial Cell Urine Few /hpf (Few)
[2021-10-12 12:41] LABS: Alanine Aminotransferase 35 U/L (14-59); Albumin Level 3.1 g/dL (3.4-5.0); Alkaline Phosphatase 144 U/L (46-116); Anion Gap 6 mmol/L (8-16); Aspartate Amino Transferase 23 U/L (15-37); Bilirubin Direct 0.1 mg/dL (0-0.2); Bilirubin,Total 0.4 mg/dL (0.00-1.00); Blood Urea Nitrogen 9 mg/dL (7-18); Calcium 8.1 mg/dL (8.5-10.1); Carbon Dioxide 28 mmol/L (21-32); Chloride 105 mmol/L (98-108); Estimated Glomerular Filt Rate 55; Glucose 88 mg/dL (70-99); Osmolality Calculated 285 mOsm/kg (285-295); Phosphorus 3.6 mg/dL (2.6-4.7); Potassium 4.1 mmol/L (3.5-5.1); Sodium 139 mmol/L (136-145); Total Protein 7.5 g/dL (6.4-8.2)
[2021-10-13 15:15] LABS: Ferritin 7 ng/mL (8-252); Iron 37 ug/dL (50-170); Percent Iron Saturation 8 % (12-57)
[2021-10-15 04:03] LABS: Parathyroid Intact 199 pg/mL (14-64)
== END 2021-10-12 12:01 | disposition home or self-care (01) ==
PROVIDERS: PCP Internal Medicine; Visit Provider Internal Medicine Nephrology
DX: N18.31 Chronic kidney disease, stage 3a (principal); N39.0 Urinary tract infection, site not specified; D64.0 Hereditary sideroblastic anemia
CPT/HCPCS: 36415; 80053; 81001; 82248; 82728; 83540; 83550; 83970; 84100; 85025; 87077; 87086; 87088; 87186

== ENCOUNTER 2021-11-11 12:22 | Outpatient (CLI) | payer OTHER, SELFPAY ==
--- NOTE | ~2021-11-11 | US_ITS ---
US retroperitoneal comp 11/11/2021 12:58 Procedure: Realtime transabdominal ultrasound of the kidneys and bladder. Indication: Nephrolithiasis Comparison: CT dated 02/10/2021 Findings: Renal echotexture is normal bilaterally without hydronephrosis, contour deforming mass. The re are multiple echogenic foci in both kidneys, consistent with renal stones. No hydronephrosis The r ight kidney measures 9.5 cm and left kidney measures 9.6 cm. Bladder within normal limits. Impression: 1: Bilateral nonobstructing nephrolithiasis. Reviewed, dictated and finalized at location B. Impression: 1: Bilateral nonobstructing nephrolithiasis.
== END 2021-11-11 12:23 | disposition home or self-care (01) ==
LOC: CHSIMG 12:23
PROVIDERS: PCP Internal Medicine; Visit Provider Urology
DX: N20.9 Urinary calculus, unspecified (principal)
CPT/HCPCS: 76770

== ENCOUNTER 2021-11-23 11:51 | Outpatient (CLI) | payer OTHER, SELFPAY ==
--- NOTE | ~2021-11-23 | MM_ITS ---
EXAMINATION: MM screening sammie BI w ally HISTORY: Screening mammogram TECHNIQUE: Craniocaudal and mediolateral oblique 3-D tomosynthesis images were obtained and synthetic 2-D images were generated. CAD analysis was submitted and interpreted. COMPARISON: 09/17/2018, 09/21/2017, 09/08/2016 bilateral screening mammogram examinations BREAST PARENCHYMAL COMPOSITION: The breasts are almost entirely fatty. FINDINGS: There is no evidence of suspicious mass, calcification, or architectural distortion to sugg est malignancy in either breast. There has been no suspicious interval change. IMPRESSION: 1. No mammographic evidence of malignancy. 2. Recommend routine screening mammography in one year. BI-RADS Category 1: Negative Reviewed, dictated and finalized at location A.
[2021-11-23 12:12] LABS: Basophils Absolute Auto 0.04 K/mm3 (0.00-0.10); Basophils Percent Auto 0.6 % (0.0-1.0); Eosinophils Absolute Auto 0.21 K/mm3 (0.02-0.50); Eosinophils Percent Auto 3.1 % (1.0-6.0); Hematocrit 38.3 % (35.0-49.0); Hemoglobin 11.8 g/dL (12.0-15.0); Immature Granulocyte Absolute 0.02 K/mm3 (0.00-0.00); Immature Granulocyte Percent A 0.3 % (0.0-0.0); Lymphocytes Absolute Auto 1.97 K/mm3 (1.10-4.50); Lymphocytes Percent Auto 29.3 % (18.0-42.0); Mean Corpuscular HGB Conc 30.8 g/dL (32.0-36.0); Mean Corpuscular Hemoglobin 24.4 pg (27.0-31.0); Mean Corpuscular Volume 79.1 fL (78.0-102.0); Mean Platelet Volume 9.4 fl (9.2-11.8); Monocytes Absolute Auto 0.61 K/mm3 (0.10-0.90); Monocytes Percent Auto 9.1 % (2.0-11.0); Neutrophils Absolute Auto 3.9 K/mm3 (1.7-7.2); Neutrophils Percent Auto 57.6 % (50.0-70.0); Platelet Count Result 318 K/mm3 (150-420); Red Blood Count 4.84 M/mm3 (4.20-5.40); Red Cell Distribution Width 26.5 % (11.6-14.4); White Blood Count 6.7 K/mm3 (4.8-10.8)
[2021-11-23 12:17] LABS: Add Urine Microscopic? YES; Appearance Urine Clear (Clear); Bilirubin Urine Negative (Negative); Blood Urine Negative (Negative); Color Urine Light Yellow (Yellow); Glucose Urine UA Negative (Negative); Ketones Urine Negative (Negative); Leukocyte Esterase Ur 1+ (Negative); Nitrate Urine Negative (Negative); Protein Urine Negative (Negative); Urobilinogen Urine 0.2 mg/dL (0.2-1.0); pH Urine 7.5 (5.0-8.0)
[2021-11-23 12:24] LABS: Bacteria Urine 1+ /hpf; RBC Urine None seen /hpf (0-2); Squamous Epithelial Cell Urine Few /hpf (Few)
[2021-11-23 12:54] LABS: Ferritin 403 ng/mL (8-252); Iron 86 ug/dL (50-170)
== END 2021-11-23 11:52 | disposition home or self-care (01) ==
PROVIDERS: PCP Internal Medicine
DX: Z12.31 Encounter for screening mammogram for malignant neoplasm of breast (principal); N39.0 Urinary tract infection, site not specified; D50.9 Iron deficiency anemia, unspecified
CPT/HCPCS: 36415; 77063; 77067; 81001; 82728; 83540; 85025; 87086

== ENCOUNTER 2022-02-15 00:33 | Emergency (ER) | payer OTHER, SELFPAY ==
[2022-02-15] VITALS (7 sets, daily range): BP systolic 132–151; BP diastolic 70–95; PULSE 46–60; RESP 16–20; TEMP 35.6–37.2; O2SAT 96–100
--- NOTE | ~2022-02-15 | CT_ITS ---
EXAMINATION: CT abdomen pelvis w con DATE: 02/15/2022 02:35 INDICATION: Abdominal pain, nausea and vomiting TECHNIQUE: Computed tomography (CT) of the abdomen and pelvis was performed with 100 mL Omnipaque-350 intravenous contrast. Automated exposure control and iterative reconstruction technique were employe d. The dose-length product was 990.05 mGy-cm. COMPARISON: 02/10/2021 FINDINGS: The lung bases are clear. Heart size is normal. No pericardial or pleural effusion. Small sliding-typ e hiatal hernia. Postoperative change of prior sleeve gastrectomy with suture line along the greater curvature of the stomach. Cholecystectomy clips the gallbladder fossa. Liver, spleen, pancreas and bi lateral adrenal glands are normal. There are multiple bilateral subcentimeter renal cysts. Bilateral nephrolithiasis with at least 8 stones in the right kidney measuring up to 3 mm and with at least one stones in the left kidney the largest measuring up to 6 mm . Cortical scarring at both kidneys likel y sequela of prior infection or infarction. There is some high attenuation material within the depend ent aspect of the left renal pelvis, unclear whether this represents attenuation fluid such as blood, early excreted contrast or potentially enhancing soft tissue. Bladder, anteverted uterus and bilater al adnexa are unremarkable. Cecal volvulus with prominent dilation of the gas and stool-filled cecum which measures up to 12 cm in maximal diameter with transition point where the proximal descending co moe was twisted around the mesenteric vessels in the region of a surgical clip which may be related t o a reported prior appendectomy. The colon at and distal to the transition point is decompressed. The re is mild dilation of several loops of gas-filled more proximal ileum. No pneumatosis, abscess or fr ee intraperitoneal gas or fluid. No pathologically enlarged abdominal or pelvic lymphadenopathy. A fe w age-indeterminate compression fractures including at L1, L2 and L4 which are new since 02/10/2021. T1 2 hemangioma. IMPRESSION: 1. Obstructing cecal volvulus. 2. Bilateral nonobstructing nephrolithiasis. 3. Some high attenuation material in the dependent aspect of the left renal pelvis which could repres ent hematuria versus less likely excreted contrast or enhancing neoplasm. Correlate with urinalysis a nd would consider follow-up with multiphase pre and postcontrast MRI or when clinically improved. 4. Small sliding-type hiatal hernia. 5. Age-indeterminate L1, L2 and L4 compression fractures new since 02/10/2021. Reviewed, dictated and finalized at location A. IMPRESSION: 1. Obstructing cecal volvulus. 2. Bilateral nonobstructing nephrolithiasis. 3. Some high attenuation material in the dependent aspect of the left renal pel vis which could represent hematuria versus less likely excreted contrast or enh ancing neoplasm. Correlate with urinalysis and would consider follow-up with mu ltiphase pre and postcontrast MRI or when clinically improved. 4. Small sliding-type hiatal hernia. 5. Age-indeterminate L1, L2 and L4 compression fractures new since 02/10/2021.
--- NOTE | 2022-02-15 00:35 | ED.ABDPAIN ---
HPI - Abdominal Pain General Chief Complaint: Abdominal Pain Stated Complaint: abd pain Time Seen by Provider: 02/15/22 00:35 Source: patient Mode of arrival: EMS History of Present Illness HPI narrative: 61-year-old female with a history of hypertension, renal tubular acidosis, hyperparathyroidism status post parathyroidectomy,Trichotillomania, compression fractures, hypothyroidism, iron deficiency anemia, Kidney stones,gastric bypass, status post appendectomy, status post kidney stone removal in May of 2021, presents to the ER with a 4 hour history of -- diffuse abdominal pain. she had similar episodes of abdominal pain in the past. She had a negative colonoscopy in May of last year. -- nausea with multiple episodes of vomiting. No hematemesis or melena. No diarrhea.\ the patient was recently diagnosed with fungal infection for the nails for which she has been started on Terbinafine and fluconazole MD elicited complaint: abdominal pain Pertinent past history: gastritis and kidney stones Onset (ago): hour(s) ( started 4 hours ago) Location: diffuse Severity: severe Quality: aching Radiation: none Migration to: no migration Exacerbating factors: nothing Relieving factors: nothing Associated symptoms: nausea and vomiting Related Data Patient : No Home Medications Medication Instructions Recorded Confirmed amitriptyline 10 mg tablet 10 mg PO BID 10/24/19 02/15/22 calcitriol 0.5 mcg capsule 0.25 mcg PO DAILY 10/24/19 02/15/22 cetirizine 10 mg tablet (Allergy 10 mg PO DAILY 10/24/19 02/15/22 Relief (cetirizine)) fluoxetine 40 mg capsule 40 mg PO BID 10/24/19 02/15/22 levothyroxine 50 mcg tablet 50 mcg PO DAILY 10/24/19 02/15/22 metoprolol succinate 50 mg 50 mg PO DAILY 10/24/19 02/15/22 tablet,extended release 24 hr potassium chloride 20 mEq 20 meq PO DAILY 10/24/19 02/15/22 tablet,extended release(part/cryst) sodium bicarbonate 650 mg tablet 650 mg PO DAILY 10/24/19 02/15/22 cyanocobalamin (vitamin B-12) 2,500 mcg DAILY 02/15/22 02/15/22 doxycycline monohydrate 100 mg 100 mg BID 02/15/22 02/15/22 capsule ferrous sulfate 325 mg (65 mg 325 mg DAILY 02/15/22 02/15/22 iron) tablet (FeroSul) fluconazole 100 mg tablet 100 mg DAILY 02/15/22 02/15/22 fluticasone furoate 2 spray DAILY 02/15/22 02/15/22 terbinafine HCl 250 mg tablet 250 mg DAILY 02/15/22 02/15/22 Allergies Allergy/AdvReac Type Severity Reaction Status Date / Time ciprofloxacin [From Cipro] Allergy Hives Verified 02/15/22 00:44 Review of Systems Review of Systems: All systems reviewed & are unremarkable except as noted in HPI and below Constitutional: Constitutional: Reports as per HPI and Reports no additional constitutional complaints Eyes: Eyes: Reports as per HPI and Reports no additional eye complaints ENT: Reports system reviewed and no additional complaints, except as documented and Reports as per HPI Cardiovascular: Cardiovascular: Reports as per HPI and Reports no additional cardiovascular complaints Respiratory: Respiratory: Reports as per HPI and Reports no additional respiratory complaints Gastrointestinal: Gastrointestinal: Reports as per HPI, Reports no additional gastrointestinal complaints, Reports abdominal pain, Reports nausea and Reports vomiting Genitourinary: Genitourinary: Reports no additional female genitourinary complaints and Reports as per HPI Musculoskeletal: Musculoskeletal: Reports no additional musculoskeletal complaints and Reports as per HPI Integumentary/Breasts: Skin/Breast: Reports system reviewed and no additional complaints, except as docu and Reports as per HPI Neurologic: Reports system reviewed and no additional complaints, except as documented and Reports as per HPI Psychiatric: Psychiatric: Reports no additional psychiatric complaints and Reports as per HPI Endocrine: Endocrine: Reports no additional endocrine complaints and Reports as per HPI Hematologic/Lymphatic: Hematolo
--- NOTE | 2022-02-15 01:08 | ECG_ITS ---
Measurements Intervals [place] Rate: 44 P: 49 MO: 160 QRS: -31 QRSD: 109 T: -5 QT: 510 QTc: 441 Interpretive Statements SINUS BRADYCARDIA LEFT AXIS DEVIATION PATTERN CONSISTENT WITH PULMONARY DISEASE VOLTAGE CRITERIA FOR LVH BORDERLINE T WAVE ABNORMALITY- INFERIOR LEADS BASELINE ARTIFACT- I, II, III, AVR, AVL, AVF, V1-V6 BORDERLINE ECG COMPARED TO ECG 05/06/2021 14:38:50 NO SIGNIFICANT CHANGES Electronically Signed On 02-15-2022 6:34:08 CDT by Jean Mantilla D.O.
[2022-02-15] MEDS: HYDROmorphone HCL INJ (*CRX) 2 MG/ML VIAL 0.5 MG IM (01:18)
[2022-02-15] MEDS: LACTATED RINGERS 1,000 ML 999 ML IV CONT (01:18)
[2022-02-15] MEDS: ONDANSETRON INJ 4 MG/2 ML VIAL IV PUSH ×2 (01:18→06:30)
[2022-02-15] MEDS: diphenhydrAMINE HCl INJ 50 MG/ML VIAL 25 MG IV PUSH (01:18)
[2022-02-15 01:32] LABS: Basophils Absolute Auto 0.04 K/mm3 (0.00-0.10); Basophils Percent Auto 0.3 % (0.0-1.0); Eosinophils Absolute Auto 0.08 K/mm3 (0.02-0.50); Eosinophils Percent Auto 0.7 % (1.0-6.0); Hemoglobin 14.7 g/dL (12.0-15.0); Immature Granulocyte Absolute 0.05 K/mm3 (0.00-0.00); Immature Granulocyte Percent A 0.4 % (0.0-0.0); Lymphocytes Absolute Auto 1.37 K/mm3 (1.10-4.50); Mean Corpuscular HGB Conc 31.3 g/dL (32.0-36.0); Mean Corpuscular Hemoglobin 29.1 pg (27.0-31.0); Mean Corpuscular Volume 93.1 fL (78.0-102.0); Mean Platelet Volume 10.1 fl (9.2-11.8); Monocytes Absolute Auto 0.42 K/mm3 (0.10-0.90); Monocytes Percent Auto 3.7 % (2.0-11.0); Neutrophils Absolute Auto 9.5 K/mm3 (1.7-7.2); Neutrophils Percent Auto 82.9 % (50.0-70.0); Platelet Count Result 239 K/mm3 (150-420); Red Blood Count 5.05 M/mm3 (4.20-5.40); Red Cell Distribution Width 15.7 % (11.6-14.4); White Blood Count 11.4 K/mm3 (4.8-10.8)
[2022-02-15 01:39] LABS: Add Urine Microscopic? YES; Appearance Urine Clear (Clear); Bilirubin Urine Negative (Negative); Blood Urine Negative (Negative); Color Urine Light Yellow (Yellow); Glucose Urine UA Negative (Negative); Ketones Urine Negative (Negative); Leukocyte Esterase Ur Trace (Negative); Nitrate Urine Negative (Negative); Protein Urine Trace (Negative); Urobilinogen Urine 0.2 mg/dL (0.2-1.0)
[2022-02-15 01:43] LABS: INR 1.1; Partial Thromboplastin Time 24.5 SEC (23.90-30.70); Prothrombin Time 12.3 Seconds (9.50-12.10)
[2022-02-15 01:45] LABS: Alanine Aminotransferase 44 U/L (14-59); Albumin Level 3.6 g/dL (3.4-5.0); Alkaline Phosphatase 130 U/L (46-116); Anion Gap 12 mmol/L (8-16); Aspartate Amino Transferase 37 U/L (15-37); Bilirubin,Total 0.3 mg/dL (0.00-1.00); Blood Urea Nitrogen 21 mg/dL (7-18); Calcium 8.5 mg/dL (8.5-10.1); Carbon Dioxide 22 mmol/L (21-32); Chloride 104 mmol/L (98-108); Estimated CRCL calculation 51 ml/min; Estimated Glomerular Filt Rate 50; Glucose 146 mg/dL (70-99); Lipase 390 U/L (73-393); Magnesium 2.6 mg/dL (1.8-2.4); Osmolality Calculated 292 mOsm/kg (285-295); Potassium 4.9 mmol/L (3.5-5.1); Sodium 138 mmol/L (136-145); Total Protein 8.5 g/dL (6.4-8.2)
[2022-02-15 01:57] LABS: Bacteria Urine None seen /hpf; Lactic Acid Reflex 2.5 mmol/L (0.4-2.0); RBC Urine 0-2 /hpf (0-2); Squamous Epithelial Cell Urine Rare /hpf (Few)
[2022-02-15] MEDS: GLUCAGON FOR INJ 1 MG VIAL IV PUSH (01:57)
--- NOTE | 2022-02-15 01:59 | PC.NURSE ---
Pt given glucagon to reverse beta isabela toxicity per ERP.
[2022-02-15 02:23] LABS: Thyroid Stimulating Hormone 24.36 uIU/mL (0.36-3.74)
[2022-02-15] MEDS: SODIUM CHLORIDE 0.9% IV 1,000 ML 999 ML IV CONT (04:01)
[2022-02-15] MEDS: LEVOTHYROXINE SODIUM INJ 100 MCG/5 ML VIAL 50 MCG IV PUSH (04:04)
[2022-02-15 04:28] LABS: Reflex Lactic Acid Yes or No Add Lactic
[2022-02-15 05:22] LABS: Lactic Acid 2.5 mmol/L (0.4-2.0)
== END 2022-02-15 06:47 | disposition short-term general hospital (02) ==
PROVIDERS: Emergency Provider Internal Medicine Critical Care Medicine; PCP Internal Medicine
DX: R10.9 Unspecified abdominal pain (principal); E03.9 Hypothyroidism, unspecified; K56.2 Volvulus; R00.1 Bradycardia, unspecified
CPT/HCPCS: 36415; 74177; 80053; 81001; 83605; 83690; 83735; 84443; 84484; 85025; 85610; 85730; 93005; 96361; 96372; 96374; 96375; 96376; 99285; J1170; J1200; J1610; J2405; J7030; J7120; Q9967

== ENCOUNTER 2022-02-15 08:46 | Inpatient (IN) | payer OTHER, SELFPAY ==
[2022-02-15] VITALS (11 sets, daily range): BP systolic 112–172; BP diastolic 61–86; PULSE 48–74; RESP 14–23; TEMP 35.6–37.2; O2SAT 90–100; BMI 31.2
--- NOTE | ~2022-02-15 | XR_ITS ---
EXAMINATION: XR abdomen NG/feed tube insert DATE: 02/15/2022 11:00 INDICATION: Nasogastric tube placement. TECHNIQUE: An upright view of the abdomen was obtained. COMPARISON: CT abdomen and pelvis 02/15/2022 FINDINGS: The lower abdomen is excluded. There is dilated colon in left upper quadrant, consistent wi th cecal volvulus. Surgical clips in the right upper quadrant are likely from cholecystectomy. IMPRESSION: 1. Nasogastric tube tip in the stomach. 2. Cecal volvulus. Reviewed, dictated and finalized at location A.
[2022-02-15] MEDS: SODIUM CHLORIDE 0.9% IV 1,000 ML 100 ML IV CONT (08:16)
[2022-02-15] MEDS: MORPHINE SULFATE (*CRX) 2 MG/ML INJ IV PUSH (08:17)
[2022-02-15] MEDS: ONDANSETRON INJ 4 MG/2 ML VIAL IV PUSH (08:17)
--- NOTE | 2022-02-15 08:46 | ADMGEN ---
This patient, Louise Moore, was admitted to Medical Room 346-01. Patient/family oriented to hospital policies and general routines including ID bracelet, bed and alarms, visiting hours, pain management, procedures, bathroom and other care routines, personal items, smoking policy, room service/diet, and visiting hours. Information on how to activate the Rapid Response Team has been discussed. Patient/Family are encouraged to report perceived risks to care and to ask questions if they do not understand what they are told or what they should do.
[2022-02-15] MEDS: SODIUM CHLORIDE 0.9% IV 1,000 ML 999 ML IV CONT (09:27)
--- NOTE | 2022-02-15 09:39 | PM.CNGS ---
Assessment and Plan Assessment and plan (1) Cecal volvulus: Code(s): K56.2 - Volvulus Status: Acute Assessment and Plan: CT scan from [facility] reviewed and discussed with the patient in detail. She has evidence of a cecal volvulus and now showing signs of an obstruction. Will place an NG tube for decompression, continue NPO status, IV fluids, and analgesics/antiemetics. She is still having a significant amount of abdominal pain and is very tender on exam. Her lactic acid is 2.5 and WBC 11K. No signs of perforation on the CT, although her cecum is severely dilated. Given the possibility of bowel ischemia, will also add IV Zosyn. I discussed the case with Dr. Manley. We would recommend proceeding with urgent surgical intervention and will work on adding her onto the surgery schedule today. (2) Large bowel obstruction: Code(s): K56.609 - Unspecified intestinal obstruction, unspecified as to partial versus complete obstruction Status: Acute Assessment and Plan: The patient is now showing signs of obstruction secondary to the cecal volvulus. Will place an NG tube for decompression. Continue NPO status, IV fluids, and antiemetics as needed. Will adjust her pain medication, as she is not getting adequate pain control with the IV Morphine. (3) Bradycardia: Code(s): R00.1 - Bradycardia, unspecified Status: Chronic Assessment and Plan: Nursing is working on getting the patient on telemetry. Hospitalist is reviewing her home medications given she is on a beta isabela. (4) Hyperparathyroidism: Code(s): E21.3 - Hyperparathyroidism, unspecified Status: Chronic (5) HTN (hypertension): Code(s): I10 - Essential (primary) hypertension Status: Chronic (6) Renal tubular acidosis: Code(s): N25.89 - Other disorders resulting from impaired renal tubular function Status: Chronic (7) Obesity (BMI 30-39.9): Code(s): E66.9 - Obesity, unspecified Status: Acute Plan I have discussed the patient's case and plan of care with Dr. Manley. History of Present Illness Consult details Consult date: 02/15/22 Reason for consult: other (Cecal volvulus) Requesting physician: Serg Crawley APN-C Narrative: This is a 61-year-old women with a history of hypertension, hyperparathyroidism, renal tubular acidosis, and previous BPD with duodenal switch in 2002. She had a sudden onset of cramping central abdominal pain around 8:00 pm last night. She thought this was related to gas-pains and tried going to the bathroom. She had 2 small soft stools without relief. Her abdominal pain continued to intensify and began radiating across her lower abdomen. She developed nausea and had multiple episodes of vomiting. She then decided to go to [facility] for evaluation. CT scan of the abdomen and pelvis showed a cecal volvulus. Labs showed a WBC count of 11,400, lactic acid 2.5, BUN 21, and creatinine 1.1. Our service was contacted by the ED physician for surgical evaluation of the cecal volvulus and the patient was transferred to our facility for direct admission. She is now seen on the medical floor. She is still having a significant amount of generalized abdominal pain and nausea. She has vomited a few times since admission. She denies any flatus today or through the night. No other complaints at this time. Her last colonoscopy was in May of 2021 reportedly with benign polypectomy. Other than her bariatric surgery, she has had a laparoscopic appendectomy. She reportedly had her gallbladder removed at the time of her gastric surgery. Review of Systems Review of Systems: All systems reviewed & are unremarkable except as noted in HPI and below Constitutional: Constitutional: Reports no additional constitutional complaints, Denies chills, Denies fatigue, Denies fever(s), Denies headache(s) and Denies weakness Eyes: Eyes: Reports no additional eye complaints ENT:
--- NOTE | 2022-02-15 09:58 | PM.IMHP ---
H&P: HPI History of Present Illness Date/Time: 02/15/22 09:58 Chief Complaint: Cecal Volvulus Narrative: This 61-year-old female patient is being admitted to [facility] after being accepted as a transfer patient from outside facility, [facility]. She has a significant past medical history of hypertension, hyperparathyroidism, renal tubular acidosis, trichotillomania, gastric bypass, parathyroidectomy in knee surgery. She presented to outside facility last evening after complaining of a few days of severe abdominal pain that was only worsening and then the development nausea and vomiting. Their workup was performed and CT of the abdomen and pelvis demonstrated an obstructive cecal volvulus, bilateral nonobstructive nephrolithiasis, an age indeterminate compression fractures of the spine. Initial labs demonstrated a lactic acid of 2.5 here as well as an alk-phos of 130, TSH of 24.3 which is not characteristic of patient's normal TSH as review of her previous values was found. Urinalysis also demonstrates trace leukocytosis. Patient has been evaluated by General surgery and they are attempting to add her to the schedule today. In the meantime patient has received a fluid bolus and we will repeat lactic acid, we will order blood cultures x2, and according to surgery patient will be placed on Zosyn. A T4 reflex is ordered as patient may require adjustment of her thyroid medication. She will be kept NPO and we will provide medications for comfort as she does appear to be in distress. At the time of my assessment she has no complaints of chest pain, dyspnea, urinary symptoms, headache, lightheadedness or dizziness. Review of Systems Review of Systems: All systems reviewed & are unremarkable except as noted in HPI and below [facility] Past Medical History Medical History Bradycardia HTN (hypertension) Hyperparathyroidism Hypothyroidism Renal tubular acidosis Trichotillomania Surgical History Surgical History H/O gastric bypass 2002 in [place] - laparoscopic duodenal switch procedure H/O knee surgery H/O parathyroidectomy History of colonoscopy with polypectomy May 2021 with benign polypectomy History of extraction of renal calculus History of laparoscopic appendectomy History of laparoscopic cholecystectomy cholecystectomy during her laparoscopic gastric surgery Family History Family History Other No pertinent family history Social History Social History Smoking status: Never smoker Alcohol intake: never Substance use: current Substance use type: painkillers and prescription drug Occupation/Education: other Additional occupation/education comments: on disability Spiritual care concerns: No Meds Home Medications and Allergies Home Medications Medication Instructions Recorded Confirmed Type amitriptyline 10 mg tablet 10 mg PO BID 10/24/19 02/15/22 History calcitriol 0.5 mcg capsule 0.25 mcg PO DAILY 10/24/19 02/15/22 History cetirizine 10 mg tablet (Allergy 10 mg PO DAILY 10/24/19 02/15/22 History Relief (cetirizine)) fluoxetine 40 mg capsule 40 mg PO BID 10/24/19 02/15/22 History levothyroxine 50 mcg tablet 50 mcg PO DAILY 10/24/19 02/15/22 History metoprolol succinate 50 mg 50 mg PO DAILY 10/24/19 02/15/22 History tablet,extended release 24 hr potassium chloride 20 mEq 20 meq PO DAILY 10/24/19 02/15/22 History tablet,extended release(part/cryst) sodium bicarbonate 650 mg tablet 650 mg PO DAILY 10/24/19 02/15/22 History cyanocobalamin (vitamin B-12) 2,500 mcg PO DAILY 02/15/22 02/15/22 History ferrous sulfate 325 mg (65 mg 325 mg DAILY 02/15/22 02/15/22 History iron) tablet (FeroSul) fluticasone furoate 2 spray DAILY 02/03
[2022-02-15] MEDS: HYDROmorphone HCL INJ (*CRX) 1 MG/ML SYR 0.5 MG IV PUSH (10:41)
[2022-02-15 10:49] LABS: Lactic Acid Reflex 1.4 mmol/L (0.7-2.0)
[2022-02-15 11:21] LABS: Hematocrit 44.3 % (37.0-47.0); Hemoglobin 14.4 g/dL (12.0-15.0)
[2022-02-15 11:27] LABS: Procalcitonin 0.7 ng/mL
[2022-02-15 11:28] LABS: Free T4 Free Thyroxine 1.66 ng/mL (0.78-2.19)
[2022-02-15] MEDS: LACTATED RINGERS 1,000 ML 30 ML IV CONT ×2 (14:20→16:39)
--- NOTE | 2022-02-15 14:26 | WPDHPUPDATE1 ---
History and Physical Update Update Date/Time: 02/15/22 14:26 History and Physical has been reviewed, including an updated exam of the patient. There are NO changes in the patient's condition. Risks, benefits, and alternatives have been discussed and questions answered. Patient agrees to proceed with procedure.
--- NOTE | 2022-02-15 14:37 | WPDANESEPPF ---
Anes - Initial Pre Proc Eval Procedure: Operation Date: 02/15/22 15:00 Proposed Procedures p Open Right Hemicolectomy - Deep Manley DO Date/Time: 02/15/22 14:37 Surgeon: ANDREINA Powell Pre Op Diagnosis: cecal volvulus Patient Data Age: 61 Gender: F Height: 1.65 m Weight: 85.275 kg Last Vital Signs Temp 36.5 C 02/15/22 12:00 Pulse 66 02/15/22 12:00 Resp 15 02/15/22 12:00 BP 153/70 H 02/15/22 12:00 Pulse Ox 94 02/15/22 12:00 O2 Del Method Room Air 02/15/22 07:30 Allergies Allergy/AdvReac Type Severity Reaction Status Date / Time ciprofloxacin [From Cipro] Allergy Hives Verified 02/15/22 00:44 Home Medications Medication Instructions Recorded Confirmed Type amitriptyline 10 mg tablet 10 mg PO BID 10/24/19 02/15/22 History calcitriol 0.5 mcg capsule 0.25 mcg PO DAILY 10/24/19 02/15/22 History cetirizine 10 mg tablet (Allergy 10 mg PO DAILY 10/24/19 02/15/22 History Relief (cetirizine)) fluoxetine 40 mg capsule 40 mg PO BID 10/24/19 02/15/22 History levothyroxine 50 mcg tablet 50 mcg PO DAILY 10/24/19 02/15/22 History metoprolol succinate 50 mg 50 mg PO DAILY 10/24/19 02/15/22 History tablet,extended release 24 hr potassium chloride 20 mEq 20 meq PO DAILY 10/24/19 02/15/22 History tablet,extended release(part/cryst) sodium bicarbonate 650 mg tablet 650 mg PO DAILY 10/24/19 02/15/22 History cyanocobalamin (vitamin B-12) 2,500 mcg PO DAILY 02/15/22 02/15/22 History ferrous sulfate 325 mg (65 mg 325 mg DAILY 02/15/22 02/15/22 History iron) tablet (FeroSul) fluticasone furoate 2 spray DAILY 02/15/22 02/15/22 History Laboratory Tests 02/15/22 02/15/22 02/15/22 09:53 09:53 10:29 Hgb 14.4 g/dL g/dL (12.0-15.0) Hct 44.3 % % (37.0-47.0) Lactic Acid Procalcitonin Free T4 1.66 ng/mL ng/mL (0.78-2.19) Blood Type B Positive Antibody Screen Negative 02/15/22 02/15/22 10:29 10:29 Hgb Hct Lactic Acid 1.4 mmol/L mmol/L (0.7-2.0) Procalcitonin 0.7 ng/mL ng/mL Free T4 Blood Type Antibody Screen Patient hx anesthesia problems: pseudocholinesterase deficiency Family hx anesthesia problems: none Results Review: All pre-operative results and documents have been reviewed as part of the pre-operative evaluation. PENDING SALE TO [facility] Past Medical History Medical History Bradycardia HTN (hypertension) Hyperparathyroidism Hypothyroidism Renal tubular acidosis Trichotillomania Surgical History Surgical History H/O gastric bypass 2002 in [place] - laparoscopic duodenal switch procedure H/O knee surgery H/O parathyroidectomy History of colonoscopy with polypectomy May 2021 with benign polypectomy History of extraction of renal calculus History of laparoscopic appendectomy History of laparoscopic cholecystectomy cholecystectomy during her laparoscopic gastric surgery Family History Family History Other No pertinent family history Social History Social History Smoking status: Never smoker Alcohol intake: never Substance use: current Substance use type: painkillers and prescription drug Occupation/Education: other Additional occupation/education comments: on disability Spiritual care concerns: No Anes - Eval Final PreProcedure Day of Procedure 02/15/22 14:37 Patient weight: obese Heart: regular rate and rhythm Lungs: clear to auscultation Neurological: alert and oriented Last oral intake: >/= 8 hours ASA classification: III Emergent: yes Anesthetic plan: proceed Anesthesia type and monitoring: general ETT and standard monitoring Results Review: All pre-operative
--- NOTE | 2022-02-15 16:31 | W.PM.PROC2 ---
Procedure Note - Detailed Date of Procedure 02/15/22 Pre-op Diagnosis cecal volvulus Post-op Diagnosis Same Procedure Performed Open right hemicolectomy with ileocolic anastomosis Surgeon Deep Manley DO Health Editor Tiarra Coleman NP Anesthesia General Indications This is a 61-year-old woman who began having acute onset of generalized abdominal pain yesterday evening. She presented to [facility] CT was performed showed evidence of a cecal volvulus. She has a significant past surgical history including duodenal switch gastric bypass, appendectomy, and cholecystectomy. She was transferred to [facility] for further treatment. Discussions were made with the patient and decision was made to proceed with open right hemicolectomy. Findings Open right hemicolectomy was performed. The cecum was identified in the left upper quadrant and was massively dilated and twisted. Once the volvulus was untwisted, I was able to adequately assess the cecum for viability. There did appear to be some signs of serosal tear on the surface of the cecum and the cecum was massively dilated and near perforation. Decision was made to perform a right hemicolectomy. I took down some of the ascending colon and hepatic flexure lateral peritoneal attachments to mobilize the ascending colon for resection and anastomosis. The terminal ileum was transected just before the ileocecal valve to preserve as much small bowel as possible with the patient's prior duodenal switch surgery. A [id number] ileocolic anastomosis was performed. The right colon was sent to the lab for pathology. Description of Procedure Procedure as well as risks, benefits, and alternatives were discussed with the patient. Written was obtained placed in chart prior to procedure. Patient was brought to surgical suite. She was placed supine on operating table. Time-out was done to confirm patient and procedure. She was then intubated by the anesthesia department. Her abdomen was prepped and draped in sterile fashion using chlorhexidine prep. A 15 cm vertical midline incision was made using a 10 blade scalpel. Electrocautery was used for hemostasis and for dissection through the subcutaneous tissue. The linea alba was identified and incised at the umbilicus using electrocautery. The peritoneal cavity was entered and the fascial incision was then extended throughout the length of the skin incision using electrocautery. The [place] wound protector was then inserted then the abdomen was carefully inspected. The dilated colon was identified the left upper quadrant and was carefully delivered out through the wound protector. Cecum was untwisted to adequately identify the normal orientation and anatomy. The lateral peritoneal attachments to the ascending colon were then taken down using electrocautery and blunt dissection. The hepatic flexure was also taken down using LigaSure bipolar cautery and electrocautery. This freed up the ascending colon enough to perform a resection and anastomosis. A location on the ascending colon just beyond the cecum was identified for resection and anastomosis. A window was created in the mesocolon using blunt dissection and CASTRO 70 staple was advanced across the colon at this point clamped fired. A window was then created in the mesentery at the terminal ileum just proximal to the ileocecal valve using electrocautery. A CASTRO 75 mm blue load stapler was advanced across the ileum at this point in clamped fired. The remaining mesentery and mesocolon attachments were then taken down using LigaSure bipolar cautery. This freed up the specimen completely and it was then removed and sent to the lab for pathology. The 2 ends of the bowel were inspected and appeared healthy and viable. Two ends of the bowel came together in a [id number] fashion without any tension. Enterotomies were made on the anti mesenteric portion of the ascending colon and terminal ileum using
[2022-02-15] MEDS: fentaNYL CITRATE INJ (*CRX) 100 MCG/2 ML VIAL 25 MCG IV PUSH ×5 (16:49→17:09)
[2022-02-15] MEDS: SODIUM CHLORIDE 0.9% IV 1,000 ML 125 ML IV CONT (17:34)
[2022-02-15] MEDS: HYDROmorphone HCL INJ (*CRX) 1 MG/ML SYR IV PUSH (23:28)
[2022-02-16] VITALS (11 sets, daily range): BP systolic 129–145; BP diastolic 52–72; PULSE 63–100; RESP 16–20; TEMP 36.2–36.9; O2SAT 91–96
[2022-02-16] MEDS: SODIUM CHLORIDE 0.9% IV 1,000 ML 125 ML IV CONT ×3 (03:02→20:03)
[2022-02-16] MEDS: LEVOTHYROXINE SODIUM 50 MCG TABLET PO (05:33)
[2022-02-16 05:38] LABS: Basophils Percent Auto 0.1 % (0.2-1.2); Hematocrit 42.3 % (37.0-47.0); Hemoglobin 13.4 g/dL (12.0-15.0); Immature Granulocyte Absolute 0.04 K/mm3 (0.00-0.031); Immature Granulocyte Percent A 0.3 % (0-0.5); Lymphocytes Absolute Auto 1.15 K/mm3 (0.9-3.2); Lymphocytes Percent Auto 8.1 % (18.3-44.2); Mean Corpuscular HGB Conc 31.7 g/dl (32-36); Mean Corpuscular Hemoglobin 29.5 pg (26-34); Mean Platelet Volume 9.7 fl (7.4-10.4); Monocytes Absolute Auto 1.3 K/mm3 (0.1-0.6); Monocytes Percent Auto 8.8 % (2.6-8.5); Neutrophils Absolute Auto 11.7 K/mm3 (1.3-6.7); Neutrophils Percent Auto 82.7 % (45.5-73.1); Platelet Count Result 235 k/mm3 (150-375); Red Blood Count 4.55 M/mm3 (4.2-5.4); Red Cell Distribution Width 16.2 % (11.5-14.5); White Blood Count 14.1 K/mm3 (4.5-10.0)
[2022-02-16 05:47] LABS: Alanine Aminotransferase 32 U/L (6-35); Albumin Level 3.6 g/dL (3.5-5.1); Alkaline Phosphatase 84 U/L (38-126); Anion Gap 13 mmol/L (8-16); Aspartate Amino Transferase 29 U/L (14-36); Bilirubin,Total 0.7 mg/dL (0.2-1.3); Blood Urea Nitrogen 13 mg/dL (7-17); Calcium 7.5 mg/dL (8.4-10.2); Carbon Dioxide 19 mmol/L (22-30); Chloride 110 mmol/L (98-107); Estimated CRCL calculation 56 ml/min; Estimated Glomerular Filt Rate 56; Glucose 130 mg/dL (65-110); Potassium 4.6 mmol/L (3.4-5.0); Sodium 142 mmol/L (137-145)
--- NOTE | 2022-02-16 07:51 | WPDANESPN ---
Anes - Prog Note Post-Op Date/Time: 02/16/22 07:51 Cardiovascular status: normal Respiratory status: normal Airway patency: baseline Mental status: baseline Post-Op hydration status: normal Vital Signs: Last Vital Signs Temp 36.2 C L 02/16/22 07:07 Pulse 66 02/16/22 07:07 Resp 20 02/16/22 07:07 BP 129/52 L 02/16/22 07:07 Pulse Ox 94 02/16/22 07:07 O2 Del Method Nasal Cannula 02/15/22 20:00 O2 Flow Rate 2 02/15/22 20:00 Pain Score (VAS): 12/12 I/O: Intake & Output 02/15/22 02/15/22 02/16/22 15:59 23:59 07:59 Intake Total 50 250 1100 Output Total 276 565 4312 Balance -350 -535 -300 Laboratory Tests 02/16/22 05:22 02/16/22 05:22 02/15/22 02/15/22 02/15/22 09:53 09:53 10:29 WBC RBC Hgb 14.4 Hct 44.3 MCV MCH MCHC RDW Plt Count MPV Immature Gran % (Auto) Neut % (Auto) Lymph % (Auto) King[place]isher % (Auto) Eos % (Auto) Baso % (Auto) Lymph # (Auto) [place] # (Auto) Eos # (Auto) Baso # (Auto) Abs Immat Gran (auto) Absolute Neuts (auto) Absolute Nucleated RBC Nucleated RBC % Sodium Potassium Chloride Carbon Dioxide Anion Gap BUN Creatinine Estim Creat Clear Calc Estimated GFR Glucose Lactic Acid Calcium Magnesium Total Bilirubin AST ALT Alkaline Phosphatase Total Protein Albumin Procalcitonin Free T4 1.66 Blood Type B Positive Antibody Screen Negative 02/15/22 02/15/22 02/16/22 10:29 10:29 05:22 WBC 14.1 H RBC 4.55 Hgb 13.4 Hct 42.3 MCV 93.0 MCH 29.5 MCHC 31.7 L RDW 16.2 H Plt Count 235 MPV 9.7 Immature Gran % (Auto) 0.3 Neut % (Auto) 82.7 H Lymph % (Auto) 8.1 L King[place]isher % (Auto) 8.8 H Eos % (Auto) 0.0 Baso % (Auto) 0.1 L Lymph # (Auto) 1.15 [place]isher # (Auto) 1.3 H Eos # (Auto) 0.0 Baso # (Auto) 0.0 Abs Immat Gran (auto) 0.04 H Absolute Neuts (auto) 11.7 H Absolute Nucleated RBC 0.0 Nucleated RBC % 0.0 Sodium Potassium Chloride Carbon Dioxide Anion Gap BUN Creatinine Estim Creat Clear Calc Estimated GFR Glucose Lactic Acid 1.4 Calcium Magnesium Total Bilirubin AST ALT Alkaline Phosphatase Total Protein Albumin Procalcitonin 0.7 Free T4 Blood Type Antibody Screen 02/16/22 05:22 WBC RBC Hgb Hct MCV MCH MCHC RDW Plt Count MPV Immature Gran % (Auto) Neut % (Auto) Lymph % (Auto) King[place]isher % (Auto) Eos % (Auto) Baso % (Auto) Lymph # (Auto) [place] # (Auto) Eos # (Auto) Baso # (Auto) Abs Immat Gran (auto) Absolute Neuts (auto) Absolute Nucleated RBC Nucleated RBC % Sodium 142 Potassium 4.6 Chloride 110 H Carbon Dioxide 19 L Anion Gap 13 BUN 13 Creatinine 1.00 Estim Creat Clear Calc 56 Estimated GFR 56 L Glucose 130 H Lactic Acid Calcium 7.5 L Magnesium 2.0 Total Bilirubin 0.7 AST 29 ALT 32 Alkaline Phosphatase 84 Total Protein 7.0 Albumin 3.6 Procalcitonin Free T4 Blood Type Antibody Screen Post-procedural complaints: none Patient Feedback: Patient satisfied with anesthetic care. Other Findings: Patient states she should receive pain medication shortly
[2022-02-16] MEDS: FLUoxetine HCL 20 MG CAPSULE 40 MG PO ×2 (08:13→17:20)
[2022-02-16] MEDS: ENOXAPARIN 40 MG/0.4 ML SYRINGE SUB-Q (08:14)
[2022-02-16] MEDS: calcitrioL 0.25 MCG CAPSULE PO (08:14)
[2022-02-16] MEDS: SODIUM BICARBONATE TAB 650 MG TABLET PO (08:14)
[2022-02-16] MEDS: CYANOCOBALAMIN 500 MCG TABLET 2500 MCG PO (08:14)
[2022-02-16] MEDS: AMITRIPTYLINE HCL 10 MG TABLET PO ×2 (08:14→17:20)
[2022-02-16] MEDS: FLUTICASONE PROPIONATE 0.05% NA SPR 16 GM BTL (*BKC) 2 SPRAY NASAL (08:14)
[2022-02-16] MEDS: POTASSIUM CHLORIDE 20 MEQ TABLET.ER PO (08:14)
[2022-02-16] MEDS: LORATADINE 10 MG TABLET PO (08:14)
[2022-02-16] MEDS: HYDROmorphone HCL INJ (*CRX) 1 MG/ML SYR 0.5 MG IV PUSH ×3 (08:19→17:21)
--- NOTE | 2022-02-16 10:17 | PM.PNGS ---
Progress Note: A&P Assessment and Plan (1) Cecal volvulus: Code(s): K56.2 - Volvulus Status: Inactive Assessment and Plan: Doing well post-op day 1. Will remove NG but will keep her NPO with ice chips. Remove Arrieta catheter. Encouraged getting up to the chair and slowly increasing activity as tolerated. (2) Large bowel obstruction: Code(s): K56.609 - Unspecified intestinal obstruction, unspecified as to partial versus complete obstruction Status: Acute Assessment and Plan: Keep NPO with ice chips for today. Await return of bowel function. Plan I have discussed the patient's case and plan of care with Dr. Manley. Subjective Subjective Date/Time Seen: 02/16/22 10:17 Post Op day: 1 (Right hemicolectomy) Patient reports: still having pain (Incisional pain), no flatus, no bowel movement and afebrile Interval history: Patient seen and examined. She has not yet been out of bed since surgery. She said she would get up to the chair this morning. Her incisional pain is being controlled with the IV analgesics. Per nursing, there has been no output from the NG overnight. Review of Systems Review of Systems: All systems reviewed & are unremarkable except as noted in HPI and below Exam Const: General: comfortable and no acute distress Orientation/consciousness: patient oriented x3 GI: Inspection: other (Less distended) GI Palp: Yes Soft to palpation and Yes Tenderness to palpation present (GI) (Incisional) Auscultation: Hypoactive bowel sounds present Extrem: General: no calf tenderness and no edema Psych: Mental Status: mental status grossly normal Insight: Good insight present (Psych) Objective Data Vital Signs Vital Signs: Vital Signs - 24 hr 02/15/22 12:00 02/15/22 12:00 02/15/22 14:42 Temperature 97.7 F 98.9 F Pulse Rate 58 L 66 60 Respiratory Rate 15 16 Blood Pressure 153/70 H 163/86 H Pulse Oximetry 94 96 Oxygen Delivery Room Air Oxygen Flow Rate 02/15/22 16:30 02/15/22 16:45 02/15/22 17:00 Temperature 97.6 F Pulse Rate 74 63 62 Respiratory Rate 14 23 H 20 Blood Pressure 112/61 127/70 127/65 Pulse Oximetry 95 100 90 Oxygen Delivery Simple Face Mask Simple Face Mask Room Air Oxygen Flow Rate 6 6 02/15/22 17:15 02/15/22 19:07 02/15/22 20:00 Temperature 98.0 F 98.0 F Pulse Rate 65 66 68 Respiratory Rate 16 16 16 Blood Pressure 116/68 127/74 130/70 Pulse Oximetry 93 95 95 Oxygen Delivery Nasal Cannula Oxygen Flow Rate 2 02/15/22 20:00 02/15/22 20:00 02/15/22 23:07 Temperature 98.4 F Pulse Rate 68 67 70 Respiratory Rate 16 16 Blood Pressure 137/65 Pulse Oximetry 95 94 Oxygen Delivery Nasal Cannula Oxygen Flow Rate 2 02/15/22 23:55 02/16/22 00:00 02/16/22 03:07 Temperature 98.4 F 98.1 F Pulse Rate 72 84 72 Respiratory Rate 16 16 Blood Pressure 133/66 130/72 Pulse Oximetry 95 96 Oxygen Delivery Oxygen Flow Rate 02/16/22 04:00 02/16/22 04:00 02/16/22 07:07 Temperature 98.4 F 97.2 F L Pulse Rate 68 69 66 Respiratory Rate 16 20 Blood Pressure 145/66 H 129/52 L Pulse Oximetry 93 94 Oxygen Delivery Oxygen Flow Rate 02/16/22 08:00 02/16/22 08:00 02/16/22 08:00 Temperature 97.2 F L Pulse Rate 66 66 Respiratory Rate 20 Blood Pressure 129/52 L Pulse Oximetry 94 93 Oxygen Delivery Room Air Oxygen Flow Rate Intake/Output Intake/Output: Intake & Output 02/13/22 02/14/22 02/15/22 02/16/22 23:59 23:59 23:59 23:59 Intake Total 300 1100 Output Total 1185 1750 Balance -885 -650 Meds/Results Medications: Active Medications Generic Name Dose Route Start Last Admin Trade Name Freq PRN Reason Stop Dose Admin Amitriptyline HCl 10 mg 02/15/22 09:00 02/16/22 08:14 Amitriptyline Hcl 10 Mg Tablet PO 10 mg BID RODRIGO Administration Calcitriol 0.25 mcg 02/15/22 09:00 02/16/22 08:14 Calcitriol 0.25 Mcg Capsule PO 03/17/22 08:59 0.25 mcg
--- NOTE | 2022-02-16 10:49 | PM.IMPN ---
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 Status post open hemicolectomy with ileocecal anastomosis - postop management per general surgery - continue p.r.n. analgesics and anti-emetics prn - continue IV fluids and saline lock when patient is able to take p.o. - general surgery pulled NG tube today 02/16/2022 - continue Zosyn IV q.6 hours per surgery (2) Abdominal pain: Qualifiers: Abdominal location: right lower quadrant Qualified Code(s): R10.31 - Right lower quadrant pain Code(s): R10.9 - Unspecified abdominal pain Status: Acute Assessment and Plan: Secondary to cecal volvulus. Continue as above. (3) Hypothyroidism: Qualifiers: Hypothyroidism type: acquired Qualified Code(s): E03.9 - Hypothyroidism, unspecified Code(s): E03.9 - Hypothyroidism, unspecified Status: Chronic Assessment and Plan: - TSH 7.7, free T4 1.8 - continue current levothyroxine and repeat thyroid panel in 4-6 weeks - Monitor VS. (4) Bradycardia: Code(s): R00.1 - Bradycardia, unspecified Status: Resolved Assessment and Plan: - presumed medication induced, beta-isabela held prior to surgery - Continue metoprolol with hold parameter - heart rate has been 70s to 100 postop (5) Hyperparathyroidism: Code(s): E21.3 - Hyperparathyroidism, unspecified Status: Chronic Assessment and Plan: calcium 7.5 patient has not been taking her calcitriol due to being NPO. Resume monitor chemistry tomorrow Plan code status: Full code Disposition: Home when medically stable Time Spent With Patient Time with patient: 15 - 25 minutes Subjective Date/time seen: 02/16/22 10:49 Interval history: Patient is a 61-year-old female patient with hypertension, hyperparathyroidism, renal tubular acidosis, trichotillomania, and gastric bypass who was tansferred from [facility] for evaluation of severe abdominal pain with nausea and vomiting. CT abd/pelvis demonstrated obstructive cecal volvulus and nonobstructing b/l nephrolithiasis. She underwent open right hemicolectomy with ileocolic anastomosis on 02/15/22.? Patient reports incisional pain today. She has mild SOB when in significant pain. No nausea or vomiting. NG tube with minimal output. Review of Systems Review of Systems: All systems reviewed & are unremarkable except as noted in HPI and below Exam Narrative: General:??? No acute distress.?Non-toxic appearing. HEENT:??? Normocephalic, bald, pupils equal and round, Sclera anicteric.?moist mucous membranes. Neck:??Supple. No JVD Respiratory:??Respirations are nonlabored.? Lung sounds?diminished bilaterally without adventitious breath sounds Cardiovascular:??Regular rate and rhythm with S1-S2. No murmurs, gallops or rubs. Gastrointestinal:??Abdomen soft, nontender, and nondistended with positive bowel sounds. Midline incision dressing clean, dry and intact. Skin:??Warm and dry.? Complexion normal for ethnicity.? Fair turgor Extremities:??No cyanosis, clubbing, or edema. Radial and pedal pulses? palpable and equal. grossly normal range of motion in all 4 extremities Neurological:??Alert and oriented x4.? Cranial nerves 2-12 are grossly intact. Speech is clear and appropriate. Hand director of rotc equal bilaterally.? no facial droop.? Tongue midline.? Hand grasps and Dorsi/plantar flexion equal bilaterally.? no tremors or fasciculations Psychiatric:? Good eye contact.? Neutral mood and affect.? Cooperative with examination.? Objective Data Vital Signs Vital Signs: Vital Signs - 24 hr 02/15/22 12:00 02/15/22 12:00 02/15/22 14:42 Temperature 97.7 F 98.9 F Pulse Rate 58 L 66 60 Respiratory Rate 15 16 Blood Pressure 153/70 H 163/86 H Pulse Oximetry 94 96 Oxygen Delivery Room Air Oxygen Flow Ra
[2022-02-16 12:53] LABS: Free T4 Free Thyroxine Reflex 1.84 ng/dL (0.78-2.19)
[2022-02-16] MEDS: ACETAMINOPHEN 325 MG TABLET 650 MG PO (15:59)
[2022-02-16] MEDS: HYDROmorphone HCL INJ (*CRX) 1 MG/ML SYR IV PUSH (23:11)
[2022-02-17] VITALS (8 sets, daily range): BP systolic 124–137; BP diastolic 55–69; PULSE 60–78; RESP 16; TEMP 36.3–36.7; O2SAT 95–97
[2022-02-17 02:52] LABS: Total Triiodothyronine (T3) 1.06 NG/ML (0.97-1.69)
[2022-02-17 05:52] LABS: Hematocrit 40.2 % (37.0-47.0); Hemoglobin 12.5 g/dL (12.0-15.0); Mean Corpuscular HGB Conc 31.1 g/dl (32-36); Mean Corpuscular Hemoglobin 29.2 pg (26-34); Mean Corpuscular Volume 93.9 fl (80-100); Mean Platelet Volume 9.6 fl (7.4-10.4); Platelet Count Result 187 k/mm3 (150-375); Red Blood Count 4.28 M/mm3 (4.2-5.4); White Blood Count 9.6 K/mm3 (4.5-10.0)
[2022-02-17 05:52] LABS: Anion Gap 9 mmol/L (8-16); Blood Urea Nitrogen 13 mg/dL (7-17); Calcium 8.4 mg/dL (8.4-10.2); Carbon Dioxide 17 mmol/L (22-30); Chloride 113 mmol/L (98-107); Estimated CRCL calculation 56 ml/min; Estimated Glomerular Filt Rate 56; Glucose 102 mg/dL (65-110); Potassium 4.2 mmol/L (3.4-5.0); Sodium 139 mmol/L (137-145)
[2022-02-17] MEDS: HYDROmorphone HCL INJ (*CRX) 1 MG/ML SYR IV PUSH ×2 (05:59→23:57)
[2022-02-17] MEDS: SODIUM CHLORIDE 0.9% IV 1,000 ML 125 ML IV CONT (06:02)
[2022-02-17] MEDS: LEVOTHYROXINE SODIUM 50 MCG TABLET PO (06:53)
[2022-02-17] MEDS: POTASSIUM CHLORIDE 20 MEQ TABLET.ER PO (09:12)
[2022-02-17] MEDS: LORATADINE 10 MG TABLET PO (09:12)
[2022-02-17] MEDS: FLUoxetine HCL 20 MG CAPSULE 40 MG PO ×2 (09:12→17:24)
[2022-02-17] MEDS: AMITRIPTYLINE HCL 10 MG TABLET PO ×2 (09:12→17:24)
[2022-02-17] MEDS: CYANOCOBALAMIN 500 MCG TABLET 2500 MCG PO (09:12)
[2022-02-17] MEDS: FLUTICASONE PROPIONATE 0.05% NA SPR 16 GM BTL (*BKC) 2 SPRAY NASAL (09:13)
[2022-02-17] MEDS: SODIUM BICARBONATE TAB 650 MG TABLET PO (09:13)
[2022-02-17] MEDS: ENOXAPARIN 40 MG/0.4 ML SYRINGE SUB-Q (09:13)
[2022-02-17] MEDS: calcitrioL 0.25 MCG CAPSULE PO (09:13)
[2022-02-17] MEDS: METOPROLOL SUCCINATE EXT REL 50 MG TABCR PO (09:13)
[2022-02-17] MEDS: ACETAMINOPHEN 325 MG TABLET 650 MG PO (09:16)
--- NOTE | 2022-02-17 09:22 | PM.IMPN ---
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 Status post open hemicolectomy with ileocecal anastomosis - postop management per general surgery - continue p.r.n. analgesics and anti-emetics prn - continue IV fluids and saline lock when patient is able to take p.o. - general surgery pulled NG tube 02/16/2022 - continue Zosyn IV q.6 hours per surgery 02/17/22 awaiting return of bowel function for diet advancement. Encouraged to ambulate frequently in the halls. (2) Abdominal pain: Qualifiers: Abdominal location: right lower quadrant Qualified Code(s): R10.31 - Right lower quadrant pain Code(s): R10.9 - Unspecified abdominal pain Status: Acute Assessment and Plan: Secondary to cecal volvulus. Continue as above. (3) Hypothyroidism: Qualifiers: Hypothyroidism type: acquired Qualified Code(s): E03.9 - Hypothyroidism, unspecified Code(s): E03.9 - Hypothyroidism, unspecified Status: Chronic Assessment and Plan: - TSH 7.7, free T4 1.8 - continue current levothyroxine and repeat thyroid panel in 4-6 weeks - Monitor VS. (4) Bradycardia: Code(s): R00.1 - Bradycardia, unspecified Status: Resolved Assessment and Plan: - presumed medication induced, beta-isabela held prior to surgery - Continue metoprolol with hold parameter - heart rate has been 70s to 100 postop - HR 56-78 bpm. No ectopy. Patient is bradycardic at night. Check Apnea test overnight for GENIA screening (5) Hyperparathyroidism: Code(s): E21.3 - Hyperparathyroidism, unspecified Status: Chronic Assessment and Plan: calcium 7.5 patient has not been taking her calcitriol due to being NPO. Resume monitor chemistry tomorrow 02/17/22 Calcium 8.5. Continue calcitriol. Plan code status: Full code Disposition: Home when medically stable Time Spent With Patient Time with patient: 15 - 25 minutes Subjective Date/time seen: 02/17/22 09:22 Interval history: Patient is a 61-year-old female patient with hypertension, hyperparathyroidism, renal tubular acidosis, trichotillomania, and gastric bypass who was tansferred from [facility] for evaluation of severe abdominal pain with nausea and vomiting. CT abd/pelvis demonstrated obstructive cecal volvulus and nonobstructing b/l nephrolithiasis. She underwent open right hemicolectomy with ileocolic anastomosis on 02/15/22.? No new complaints or overnight events. NG tube was pulled yesterday, but she still is not passing flatus. Review of Systems Review of Systems: All systems reviewed & are unremarkable except as noted in HPI and below Exam Narrative: General:??? No acute distress.?Non-toxic appearing. HEENT:??? Normocephalic, bald, pupils equal and round, Sclera anicteric.?moist mucous membranes. Neck:??Supple. No JVD Respiratory:??Respirations are nonlabored.? Lung sounds?diminished bilaterally without adventitious breath sounds Cardiovascular:??Regular rate and rhythm with S1-S2. No murmurs, gallops or rubs. Gastrointestinal:??Abdomen soft, nontender, and nondistended with hypoative bowel sounds. Midline incision dressing clean, dry and intact. Skin:??Warm and dry.? Complexion normal for ethnicity.? Fair turgor Extremities:??No cyanosis, clubbing, or edema. Radial and pedal pulses? palpable and equal. grossly normal range of motion in all 4 extremities Neurological:??Alert and oriented x4.? Cranial nerves 2-12 are grossly intact. Speech is clear and appropriate. Hand content management specialist equal bilaterally.? no facial droop.? Tongue midline.? Hand grasps and Dorsi/plantar flexion equal bilaterally.? no tremors or fasciculations Psychiatric:? Good eye contact.? Neutral mood and affect.? Cooperative with examination.? Objective Data Vital Signs Vital Signs: Vital Signs - 24 h
--- NOTE | 2022-02-17 13:04 | PM.PNGS ---
Progress Note: A&P Assessment and Plan (1) Cecal volvulus: Code(s): K56.2 - Volvulus Status: Acute Assessment and Plan: Slowly improving. Will allow sips of clear liquids today. Pain is well-controlled. Encouraged increasing activity and ambulating in the halls. Pathology reviewed now but was pending when I saw the patient this morning. (2) Large bowel obstruction: Code(s): K56.609 - Unspecified intestinal obstruction, unspecified as to partial versus complete obstruction Status: Acute Assessment and Plan: Awaiting return of bowel function. Will allow sips of clear liquids today. Plan I have discussed the patient's case and plan of care with Dr. Manley. Subjective Subjective Date/Time Seen: 02/17/22 10:04 Post Op day: 2 (Right hemicolectomy) Patient reports: voiding w/o difficulty, no flatus, no bowel movement and afebrile Interval history: Patient seen and examined. Pain is controlled. She is tolerating activity and sitting in the chair this morning. No specific complaints at this time. Review of Systems Review of Systems: All systems reviewed & are unremarkable except as noted in HPI and below Exam Const: General: comfortable and no acute distress Orientation/consciousness: patient oriented x3 GI: Inspection: incision (healing well, dry and ranulfo intact, no erythema) and other (Less distended) GI Palp: Yes Soft to palpation and Yes Tenderness to palpation present (GI) (incisional) Auscultation: Hypoactive bowel sounds present Extrem: General: no calf tenderness and no edema Psych: Mental Status: mental status grossly normal Insight: Good insight present (Psych) Objective Data Vital Signs Vital Signs: Vital Signs - 24 hr 02/16/22 15:07 02/16/22 16:00 02/16/22 16:00 Temperature 97.5 F L 97.5 F L Pulse Rate 76 76 100 Respiratory Rate 20 20 Blood Pressure 133/62 133/62 Pulse Oximetry 92 92 Oxygen Delivery 02/16/22 19:31 02/16/22 20:00 02/16/22 20:00 Temperature 97.6 F Pulse Rate 63 63 67 Respiratory Rate 16 16 Blood Pressure 131/69 Pulse Oximetry 93 93 Oxygen Delivery Room Air 02/17/22 00:00 02/17/22 04:00 02/17/22 05:51 Temperature 97.4 F L Pulse Rate 67 65 78 Respiratory Rate 16 Blood Pressure 137/55 L Pulse Oximetry 95 Oxygen Delivery 02/17/22 09:13 02/17/22 11:04 02/17/22 09:00 Temperature Pulse Rate 78 Respiratory Rate Blood Pressure Pulse Oximetry Oxygen Delivery Room Air Room Air Intake/Output Intake/Output: Intake & Output 02/14/22 02/15/22 02/16/22 02/17/22 23:59 23:59 23:59 23:59 Intake Total 300 4075 1200 Output Total 1185 2170 800 Balance -885 1905 400 Meds/Results Medications: Active Medications Generic Name Dose Route Start Last Admin Trade Name Freq PRN Reason Stop Dose Admin Acetaminophen 650 mg 02/16/22 15:55 02/17/22 09:16 Acetaminophen 325 Mg Tablet PO 650 mg Q4H PRN Administration Mild Pain (1-3) or Fever Amitriptyline HCl 10 mg 02/15/22 09:00 02/17/22 09:12 Amitriptyline Hcl 10 Mg Tablet PO 10 mg BID RODRIGO Administration Calcitriol 0.25 mcg 02/15/22 09:00 02/17/22 09:13 Calcitriol 0.25 Mcg Capsule PO 03/17/22 08:59 0.25 mcg DAILY RODRIGO Administration Cyanocobalamin 2,500 mcg 02/15/22 09:00 02/17/22 09:12 Cyanocobalamin 500 Mcg Tablet PO 03/17/22 08:59 2,500 mcg DAILY RODRIGO Administration Enoxaparin Sodium 40 mg 02/16/22 09:00 02/17/22 09:13 Enoxaparin 40 Mg/0.4 Ml Syringe SUB-Q 40 mg DAILY RODRIGO Administration Fluoxetine HCl 40 mg 02/15/22 09:00 02/17/22 09:12 Fluoxetine Hcl 20 Mg Capsule PO 40 mg BID RODRIGO Administration Fluticasone Propionate 2 spray 02/15/22 09:00 02/17/22 09:13 Fluticasone Propionate 0.05% Na Spr 16 Gm Btl (*Bkc) NASAL 03/17/22 08:59 2 spray DAILY RODRIGO Administration Hydromorphone HCl 0.5 mg 02/15/22 09:38 02/16/22 17:21 Hydromorphone Hcl Inj (*
[2022-02-17] MEDS: HYDROmorphone HCL INJ (*CRX) 1 MG/ML SYR 0.5 MG IV PUSH (17:23)
[2022-02-17] MEDS: SODIUM CHLORIDE 0.9% IV 1,000 ML 75 ML IV CONT (17:25)
[2022-02-18 04:07] VITALS: BP 111/69; PULSE 62; RESP 18; TEMP 36.3; O2SAT 95
[2022-02-18] MEDS: LEVOTHYROXINE SODIUM 50 MCG TABLET PO (05:49)
[2022-02-18 06:37] LABS: Hematocrit 36.7 % (37.0-47.0); Hemoglobin 11.7 g/dL (12.0-15.0); Mean Corpuscular HGB Conc 31.9 g/dl (32-36); Mean Corpuscular Hemoglobin 29.3 pg (26-34); Mean Platelet Volume 9.5 fl (7.4-10.4); Platelet Count Result 162 k/mm3 (150-375); Red Blood Count 3.99 M/mm3 (4.2-5.4); Red Cell Distribution Width 15.8 % (11.5-14.5); White Blood Count 7.6 K/mm3 (4.5-10.0)
[2022-02-18 06:54] LABS: Anion Gap 13 mmol/L (8-16); Blood Urea Nitrogen 11 mg/dL (7-17); Calcium 7.9 mg/dL (8.4-10.2); Carbon Dioxide 14 mmol/L (22-30); Chloride 113 mmol/L (98-107); Estimated CRCL calculation 63 ml/min; Estimated Glomerular Filt Rate > 60; Glucose 103 mg/dL (65-110); Potassium 3.5 mmol/L (3.4-5.0); Sodium 140 mmol/L (137-145)
--- NOTE | 2022-02-18 09:00 | PM.IMPN ---
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 Status post open hemicolectomy with ileocecal anastomosis - postop management per general surgery - continue p.r.n. analgesics and anti-emetics prn - IV fluid stopped as she is tolerating a diet - general surgery pulled NG tube 02/16/2022 - continue Zosyn IV q.6 hours per surgery - Continuing activity (2) Abdominal pain: Qualifiers: Abdominal location: right lower quadrant Qualified Code(s): R10.31 - Right lower quadrant pain Code(s): R10.9 - Unspecified abdominal pain Status: Acute Assessment and Plan: Secondary to cecal volvulus. Continue as above. (3) Hypothyroidism: Qualifiers: Hypothyroidism type: acquired Qualified Code(s): E03.9 - Hypothyroidism, unspecified Code(s): E03.9 - Hypothyroidism, unspecified Status: Chronic Assessment and Plan: - TSH 7.7, free T4 1.8 - continue current levothyroxine and repeat thyroid panel in 4-6 weeks - Monitor VS. (4) Bradycardia: Code(s): R00.1 - Bradycardia, unspecified Status: Resolved Assessment and Plan: - presumed medication induced, beta-isabela held prior to surgery - Continue metoprolol with hold parameter - heart rate has been 70s to 100 postop - HR 56-78 bpm. No ectopy. Patient is bradycardic at night. Check Apnea test overnight for GENIA screening (5) Hyperparathyroidism: Code(s): E21.3 - Hyperparathyroidism, unspecified Status: Chronic Assessment and Plan: calcium 7.5 patient has not been taking her calcitriol due to being NPO. Resume monitor chemistry tomorrow Current calcium is 7.9 Continue to trend labs Time Spent With Patient Time with patient: Greater than 35 minutes Subjective Date/time seen: 02/18/22 9:00 Interval history: 02/18/22 0900 Patient denies any complaints today. She did state that she was having pain with coughing. She was pretty upset about her cough as she stated that she has drainage in is clear. Her loratadine was continued however I did add a decongestant to try to dry up some of her exercise creations. She did state that she is not having any gas however she is having some rumbling in cramping in her abdomen. She also stated that she is tolerating her diet. She denied any chest pain, shortness of breath, nausea, vomiting. She stated that she is tolerating her tray at this time as well. 02/17/22? 09:22 Patient is a 61-year-old female patient with hypertension, hyperparathyroidism, renal tubular acidosis, trichotillomania, and gastric bypass who was tansferred from [facility] for evaluation of severe abdominal pain with nausea and vomiting. CT abd/pelvis demonstrated obstructive cecal volvulus and nonobstructing b/l nephrolithiasis. She underwent open right hemicolectomy with ileocolic anastomosis on 02/15/22.? No new complaints or overnight events. NG tube was pulled yesterday, but she still is not passing flatus. Review of Systems Review of Systems: All systems reviewed & are unremarkable except as noted in HPI and below Exam Const: General: cooperative, healthy appearing, comfortable, no acute distress, alert, awake and Physically active Nutritional Appearance: average body habitus and well nourished Orientation/consciousness: oriented to person, oriented to place and oriented to time Limitations: no limitations HENMT: General nose exam: Normal nares present Mouth: Yes moist mucous membranes Other: Pt. with noted trichotillomania. Eyes: General: appearance normal, both eyes and all related structures Sclera: sclerae normal Pupils: Equal, round and reactive pupils present EOM: EOMs intact bilaterally Neck: Neck: supple and no JVD Lymphatic: lymphadenopathy not noted Chest: Other: Non tender to palpa
[2022-02-18] MEDS: FLUoxetine HCL 20 MG CAPSULE 40 MG PO ×2 (10:11→16:10)
[2022-02-18] MEDS: POTASSIUM CHLORIDE 20 MEQ TABLET.ER PO (10:11)
[2022-02-18] MEDS: LORATADINE 10 MG TABLET PO (10:11)
--- NOTE | 2022-02-18 10:11 | PM.PNGS ---
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 Tolerating clears. No nausea or vomiting. Pain controlled. Exam GI: Inspection: non-distended and incision (intact with ranulfo) GI Palp: Yes Soft to palpation and Yes Tenderness to palpation present (GI) (incisional) Objective Data Vital Signs Vital Signs: Vital Signs - 24 hr 02/17/22 11:04 02/17/22 14:00 02/17/22 21:11 Temperature 36.7 C 36.3 C L Pulse Rate 60 61 Respiratory Rate 16 16 Blood Pressure 124/69 130/65 Pulse Oximetry 97 96 Oxygen Delivery Room Air 02/17/22 20:00 02/17/22 22:50 02/18/22 04:07 Temperature 36.3 C L Pulse Rate 61 62 Respiratory Rate 16 18 Blood Pressure 111/69 Pulse Oximetry 96 96 95 Oxygen Delivery Room Air Room Air Intake/Output Intake/Output: Intake & Output 02/15/22 02/16/22 02/17/22 02/18/22 23:59 23:59 23:59 23:59 Intake Total 300 4075 3310 1910 Output Total 1185 2170 1700 975 Balance -885 1905 1610 935 Meds/Results Medications: Active Medications Generic Name Dose Route Start Last Admin Trade Name Jerq PRN Reason Stop Dose Admin Acetaminophen 650 mg 02/16/22 15:55 02/17/22 09:16 Acetaminophen 325 Mg Tablet PO 650 mg Q4H PRN Administration Mild Pain (1-3) or Fever Amitriptyline HCl 10 mg 02/15/22 09:00 02/17/22 17:24 Amitriptyline Hcl 10 Mg Tablet PO 10 mg BID RODRIGO Administration Calcitriol 0.25 mcg 02/15/22 09:00 02/17/22 09:13 Calcitriol 0.25 Mcg Capsule PO 03/17/22 08:59 0.25 mcg DAILY RODRIGO Administration Cyanocobalamin 2,500 mcg 02/15/22 09:00 02/17/22 09:12 Cyanocobalamin 500 Mcg Tablet PO 03/17/22 08:59 2,500 mcg DAILY RODRIGO Administration Enoxaparin Sodium 40 mg 02/16/22 09:00 02/17/22 09:13 Enoxaparin 40 Mg/0.4 Ml Syringe SUB-Q 40 mg DAILY RODRIGO Administration Fluoxetine HCl 40 mg 02/15/22 09:00 02/17/22 17:24 Fluoxetine Hcl 20 Mg Capsule PO 40 mg BID RODRIGO Administration Fluticasone Propionate 2 spray 02/15/22 09:00 02/17/22 09:13 Fluticasone Propionate 0.05% Na Spr 16 Gm Btl (*Bkc) NASAL 03/17/22 08:59 2 spray DAILY RODRIGO Administration Hydromorphone HCl 0.5 mg 02/15/22 09:38 02/17/22 17:23 Hydromorphone Hcl Inj (*Crx) 1 Mg/Ml Syr IV PUSH 0.5 mg Q2H PRN Administration Pain Rated 4-6 Hydromorphone HCl 1 mg 02/15/22 09:38 02/17/22 23:57 Hydromorphone Hcl Inj (*Crx) 1 Mg/Ml Syr IV PUSH 1 mg Q2H PRN Administration Pain Rated 7-10 Piperacillin/Tazobactam/Dextrose 3.375 gm in 50 mls @ 100 mls/hr 02/15/22 12:00 02/18/22 06:20 Zosyn 3.375 Gm/D5w 50ml Pm IVPB Infused Q6HR RODRIGO Infusion Levothyroxine Sodium 50 mcg 02/16/22 06:30 02/18/22 05:49 Levothyroxine Sodium 50 Mcg Tablet PO 50 mcg DAILY@0630 RODRIGO Administration Loratadine 10 mg 02/15/22 09:00 02/17/22 09:12 Loratadine 10 Mg Tablet PO 10 mg QAM RODRIGO Administration Metoprolol Succinate 50 mg 02/15/22 09:00 02/17/22 09:13 Metoprolol Succinate Ext Rel 50 Mg Tabcr PO 50 mg DAILY RODRIGO Administration Ondansetron HCl 4 mg 02/15/22 08:02 02/15/22 08:17 Ondansetron Inj 4 Mg/2 Ml Vial IV PUSH 4 mg Q6H PRN Administration Nausea And Vomiting Potassium Chloride 20 meq 02/15/22 09:00 02/17/22 09:12 Potassium Chloride 20 Meq Tablet.Er PO 20 meq DAILY RODRIGO Administration Sodium Bicarbonate 650 mg 02/15/22 09:00 02/17/22 09:13 Sodium Bicarbonate Tab 650 Mg Tablet PO 650 mg DAILY RODRIGO Administration Radiology Results: ITS Impressions Abdomen X-Ray 02/15/22 11:01 IMPRESSION: 1. Nasogastric tube tip in the stomach. 2. Cecal vol
[2022-02-18 10:12] VITALS: PULSE 68
[2022-02-18] MEDS: METOPROLOL SUCCINATE EXT REL 50 MG TABCR PO (10:12)
[2022-02-18] MEDS: calcitrioL 0.25 MCG CAPSULE PO (10:12)
[2022-02-18] MEDS: SODIUM BICARBONATE TAB 650 MG TABLET PO (10:12)
[2022-02-18] MEDS: CYANOCOBALAMIN 500 MCG TABLET 2500 MCG PO (10:13)
[2022-02-18] MEDS: AMITRIPTYLINE HCL 10 MG TABLET PO ×2 (10:14→16:09)
[2022-02-18] MEDS: ENOXAPARIN 40 MG/0.4 ML SYRINGE SUB-Q (10:14)
[2022-02-18] MEDS: FLUTICASONE PROPIONATE 0.05% NA SPR 16 GM BTL (*BKC) 2 SPRAY NASAL (10:15)
[2022-02-18] MEDS: LORATADINE/PSEUDOEPHEDRINE (*CRX) 10/240 MG TABLET ER 24 HR 1 TAB PO (14:01)
[2022-02-18 14:47] VITALS: BP 144/64; PULSE 61; RESP 20; TEMP 36.6; O2SAT 97
[2022-02-18] MEDS: ACETAMINOPHEN 325 MG TABLET 650 MG PO (16:08)
[2022-02-18 19:34] VITALS: BP 123/68; PULSE 62; RESP 18; TEMP 36.1; O2SAT 98
[2022-02-18 20:00] VITALS: PULSE 62; RESP 18; O2SAT 98
[2022-02-19 04:41] VITALS: BP 137/71; PULSE 56; RESP 18; TEMP 36.3; O2SAT 97
[2022-02-19 05:44] LABS: Basophils Percent Auto 0.4 % (0.2-1.2); Eosinophils Absolute Auto 0.2 K/mm3 (0-0.3); Eosinophils Percent Auto 3.6 % (0-4.4); Hematocrit 39.2 % (37.0-47.0); Hemoglobin 12.8 g/dL (12.0-15.0); Immature Granulocyte Absolute 0.04 K/mm3 (0.00-0.031); Immature Granulocyte Percent A 0.6 % (0-0.5); Lymphocytes Absolute Auto 1.11 K/mm3 (0.9-3.2); Lymphocytes Percent Auto 16.6 % (18.3-44.2); Mean Corpuscular HGB Conc 32.7 g/dl (32-36); Mean Corpuscular Hemoglobin 29.8 pg (26-34); Mean Corpuscular Volume 91.4 fl (80-100); Monocytes Absolute Auto 0.7 K/mm3 (0.1-0.6); Monocytes Percent Auto 10.3 % (2.6-8.5); Neutrophils Absolute Auto 4.6 K/mm3 (1.3-6.7); Neutrophils Percent Auto 68.5 % (45.5-73.1); Platelet Count Result 229 k/mm3 (150-375); Red Blood Count 4.29 M/mm3 (4.2-5.4); White Blood Count 6.7 K/mm3 (4.5-10.0)
[2022-02-19 06:08] LABS: Alanine Aminotransferase 27 U/L (6-35); Albumin Level 3.3 g/dL (3.5-5.1); Alkaline Phosphatase 97 U/L (38-126); Anion Gap 10 mmol/L (8-16); Aspartate Amino Transferase 23 U/L (14-36); Bilirubin,Total 0.4 mg/dL (0.2-1.3); Blood Urea Nitrogen 10 mg/dL (7-17); Calcium 8.4 mg/dL (8.4-10.2); Carbon Dioxide 16 mmol/L (22-30); Chloride 115 mmol/L (98-107); Estimated CRCL calculation 70 ml/min; Estimated Glomerular Filt Rate > 60; Glucose 105 mg/dL (65-110); Potassium 3.1 mmol/L (3.4-5.0); Sodium 141 mmol/L (137-145)
[2022-02-19] MEDS: LEVOTHYROXINE SODIUM 50 MCG TABLET PO (06:09)
[2022-02-19] MEDS: BENZOCAINE/MENTHOL (*BKC) 18 EA LOZENGE 1 LOZENGE PO (06:10)
[2022-02-19 09:22] VITALS: PULSE 64
[2022-02-19] MEDS: METOPROLOL SUCCINATE EXT REL 50 MG TABCR PO (09:22)
[2022-02-19] MEDS: calcitrioL 0.25 MCG CAPSULE PO (09:22)
[2022-02-19] MEDS: POTASSIUM CHLORIDE 20 MEQ TABLET.ER PO (09:27)
[2022-02-19] MEDS: FLUoxetine HCL 20 MG CAPSULE 40 MG PO (09:28)
[2022-02-19] MEDS: CYANOCOBALAMIN 500 MCG TABLET 2500 MCG PO (09:28)
[2022-02-19] MEDS: SODIUM BICARBONATE TAB 650 MG TABLET PO (09:28)
[2022-02-19] MEDS: FLUTICASONE PROPIONATE 0.05% NA SPR 16 GM BTL (*BKC) 2 SPRAY NASAL (09:28)
[2022-02-19] MEDS: ENOXAPARIN 40 MG/0.4 ML SYRINGE SUB-Q (09:28)
[2022-02-19] MEDS: AMITRIPTYLINE HCL 10 MG TABLET PO (09:29)
--- NOTE | 2022-02-19 09:30 | PM.DS ---
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 Status post open hemicolectomy with ileocecal anastomosis - postop management per general surgery - continue p.r.n. analgesics and anti-emetics prn - IV fluid stopped as she is tolerating a diet - general surgery pulled NG tube 02/16/2022 - continue Zosyn IV q.6 hours per surgery - Continuing activity (2) Abdominal pain: Qualifiers: Abdominal location: right lower quadrant Qualified Code(s): R10.31 - Right lower quadrant pain Code(s): R10.9 - Unspecified abdominal pain Status: Acute Assessment and Plan: Secondary to cecal volvulus. Continue as above. (3) Hypothyroidism: Qualifiers: Hypothyroidism type: acquired Qualified Code(s): E03.9 - Hypothyroidism, unspecified Code(s): E03.9 - Hypothyroidism, unspecified Status: Chronic Assessment and Plan: - TSH 7.7, free T4 1.8 - continue current levothyroxine and repeat thyroid panel in 4-6 weeks - Monitor VS. (4) Bradycardia: Code(s): R00.1 - Bradycardia, unspecified Status: Resolved Assessment and Plan: - presumed medication induced, beta-isabela held prior to surgery - Continue metoprolol with hold parameter - heart rate has been 70s to 100 postop - HR 56-78 bpm. No ectopy. Patient is bradycardic at night. Check Apnea test overnight for GENIA screening (5) Hyperparathyroidism: Code(s): E21.3 - Hyperparathyroidism, unspecified Status: Chronic Assessment and Plan: calcium 7.5 patient has not been taking her calcitriol due to being NPO. Resume monitor chemistry tomorrow Current calcium is 7.9 Continue to trend labs DS: Summary Hospital Course Hospital Course: Patient is a 5-year-old female with a past medical history of hypertension, hyperparathyroidism, renal tubular acidosis, gastric bypass who presented to the ED from [place] for severe abdominal pain. CT of the abdomen and pelvis demonstrated an obstructive cecal pole this and bilateral nonobstructing nephrolithiasis. Lactic acid was 2.5 upon arrival. General surgery was consulted and patient was taken to the OR. Open right hemicolectomy with ileocolic anastomosis was performed. Postoperatively patient was able to get the NG tube out and tolerating foods. Labs have been stabilized. Abdominal pain has been better and patient is able to move around. Patient has been walking up and down the halls. She has been able to tolerate her pain with just Tylenol. She does have a midline incision with no signs of infection. She denies any current chest pain, shortness of breath, nausea, vomiting, diarrhea, constipation, weakness or fatigue. Labs and vital signs are stable at this time. She is stable for discharge at this time. She did also have a cough and some congestion which has been resolved with loratine D. Status at Discharge Functional status at discharge: independent ambulation Overall status at discharge: patient is progressing back to baseline Time Spent with Patient Time attestation: Total time spent providing and/or coordinating discharge services: 37 minutes Time spent: Greater than 30 minutes Specific discharge activities: Diagnostic testing, chart review, developing a treatment plan, education, care coordination documentation, physical exam, result review Exam Const: General: cooperative, healthy appearing, comfortable, no acute distress, alert, awake and Physically active Nutritional Appearance: average body habitus and well nourished Orientation/consciousness: oriented to person, oriented to place and oriented to time Limitations: no limitations HENMT: General nose exam: Normal nares present Mouth: Yes
[2022-02-19] MEDS: LORATADINE/PSEUDOEPHEDRINE (*CRX) 10/240 MG TABLET ER 24 HR 1 TAB PO (09:33)
--- NOTE | 2022-02-19 10:51 | PM.PNGS ---
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 Transition to oral pain meds Taking only Tylenol so no prescription given. Increase activity home today if Okay with hospitalist. See Dr. Manley in approximately 1 week. Subjective Subjective Date/Time Seen: 02/19/22 09:51 Post Op day: 4 ( Improving nicely) Patient reports: no new complaints, feels better and tolerating a regular diet Review of Systems Review of Systems: All systems reviewed & are unremarkable except as noted in HPI and below Exam GI: Inspection: non-distended and incision (intact with ranulfo) GI Palp: Yes Soft to palpation and Yes Tenderness to palpation present (GI) (incisional) Other: dressing changed. Incision clean and dry. Discussed care with patient. Objective Data Vital Signs Vital Signs: Vital Signs - 24 hr 02/18/22 14:47 02/18/22 19:34 02/18/22 20:00 Temperature 36.6 C 36.1 C L Pulse Rate 61 62 62 Respiratory Rate 20 18 18 Blood Pressure 144/64 H 123/68 Pulse Oximetry 97 98 98 Oxygen Delivery Room Air 02/19/22 04:41 02/19/22 09:22 Temperature 36.3 C L Pulse Rate 56 L 64 Respiratory Rate 18 Blood Pressure 137/71 Pulse Oximetry 97 Oxygen Delivery Intake/Output Intake/Output: Intake & Output 02/16/22 02/17/22 02/18/22 02/19/22 23:59 23:59 23:59 23:59 Intake Total 4075 3310 3510 640 Output Total 2170 1700 2675 1650 Balance 1905 1610 835 -1010 Meds/Results Medications: Active Medications Generic Name Dose Route Start Last Admin Trade Name Freq PRN Reason Stop Dose Admin Acetaminophen 650 mg 02/16/22 15:55 02/18/22 16:08 Acetaminophen 325 Mg Tablet PO 650 mg Q4H PRN Administration Mild Pain (1-3) or Fever Hydrocodone Bitart/Acetaminophen 1 tab 02/18/22 10:10 Hydrocodone/Acetaminophen (*Crx) 5-325 Mg Tablet PO Q4H PRN Pain Rated 4-6 Hydrocodone Bitart/Acetaminophen 2 tab 02/18/22 10:10 Hydrocodone/Acetaminophen (*Crx) 5-325 Mg Tablet PO Q4H PRN Pain Rated 7-10 Amitriptyline HCl 10 mg 02/15/22 09:00 02/19/22 09:29 Amitriptyline Hcl 10 Mg Tablet PO 10 mg BID RODRIGO Administration Benzocaine 1 lozenge 02/19/22 05:25 02/19/22 06:10 Benzocaine/Menthol (*Bkc) 18 Ea Lozenge PO 1 lozenge PRN PRN Administration Sore Throat Calcitriol 0.25 mcg 02/15/22 09:00 02/19/22 09:22 Calcitriol 0.25 Mcg Capsule PO 03/17/22 08:59 0.25 mcg DAILY RODRIGO Administration Cyanocobalamin 2,500 mcg 02/15/22 09:00 02/19/22 09:28 Cyanocobalamin 500 Mcg Tablet PO 03/17/22 08:59 2,500 mcg DAILY RODRIGO Administration Enoxaparin Sodium 40 mg 02/16/22 09:00 02/19/22 09:28 Enoxaparin 40 Mg/0.4 Ml Syringe SUB-Q 40 mg DAILY RODRIGO Administration Fluoxetine HCl 40 mg 02/15/22 09:00 02/19/22 09:28 Fluoxetine Hcl 20 Mg Capsule PO 40 mg BID RODRIGO Administration Fluticasone Propionate 2 spray 02/15/22 09:00 02/19/22 09:28 Fluticasone Propionate 0.05% Na Spr 16 Gm Btl (*Bkc) NASAL 03/17/22 08:59 2 spray DAILY RODRIGO Administration Levothyroxine Sodium 50 mcg 02/16/22 06:30 02/19/22 06:09 Levothyroxine Sodium 50 Mcg Tablet PO 50 mcg DAILY@0630 RODRIGO Administration Loratadine/Pseudoephedrine Sulfate 1 tab 02/18/22 12:30 02/19/22 09:33 Loratadine/Pseudoephedrine (*Crx) 10/240 Mg Tablet Er 24 Hr PO 1 tab QAM RODRIGO Administration Metoprolol Succinate 50 mg 02/15/22 09:00 02/19/22 09:22 Metoprolol Succinate Ext Rel 50 Mg Tabcr PO 50 mg DAILY RODRIGO Administration Ondansetron HCl 4 mg 02/15/22 08:02 02/15/22 08:17 Ondansetron Inj 4 Mg/2 Ml Vial IV PUSH 4 mg Q6H PRN Administration Nausea And Vomiting Potassium Chloride 20 meq 02/15/22 09:00 02/19/22 09:27 Potassium Chloride 20 Meq Tablet.Er PO 20 meq DAILY RODRIGO Admini
== END 2022-02-19 15:13 | disposition home or self-care (01) | DRG 231 ==
PROVIDERS: Nurse Practitioner Adult Health; Nurse Practitioner Family; Surgery; Admitting Provider Internal Medicine; PCP Internal Medicine; Visit Provider Nurse Practitioner
PROC: 0DTF0ZZ Resection of Right Large Intestine, Open Approach (ICD-10-PCS; CPT 44160; principal; 2022-02-15 15:00)
DX: K56.2 Volvulus (principal); N25.89 Other disorders resulting from impaired renal tubular function; E03.9 Hypothyroidism, unspecified; T44.7X5A Adverse effect of beta-adrenoreceptor antagonists, initial encounter; E21.3 Hyperparathyroidism, unspecified; E66.9 Obesity, unspecified; I10 Essential (primary) hypertension; R00.1 Bradycardia, unspecified; R09.81 Nasal congestion; F63.3 Trichotillomania; N20.0 Calculus of kidney; Z98.84 Bariatric surgery status; Z90.89 Acquired absence of other organs; Z90.49 Acquired absence of other specified parts of digestive tract; Z86.010 Personal history of colon polyps; Z68.31 Body mass index [BMI] 31.0-31.9, adult
CPT/HCPCS: 36415; 80048; 80053; 83605; 83735; 84145; 84439; 84443; 84480; 85014; 85018; 85025; 85027; 86850; 86900; 86901; 87040; 88307; 94762; 97161; 97165; 97530; A9270; J1100; J1170; J1650; J2250; J2270; J2405; J2543; J2704; J2710; J3010; J7030; J7120

== ENCOUNTER 2022-03-07 13:38 | Outpatient (CLI) | payer OTHER, SELFPAY ==
--- NOTE | ~2022-03-07 | XR_ITS ---
EXAM: XR sinus min 3V DATE: 03/07/2022 14:06 HISTORY: Right maxillary sinus lump , pain w/ palpation . COMPARISON: None available. FINDINGS: Normal mineralization. The orbits are intact and symmetric. The aerated spaces are clear. No abnormal intracranial calcification. No fracture. IMPRESSION: Normal sinus radiograph findings. Reviewed, dictated and finalized at location K.
== END 2022-03-07 13:39 | disposition home or self-care (01) ==
PROVIDERS: PCP Internal Medicine; Visit Provider Nurse Practitioner Family
DX: M79.89 Other specified soft tissue disorders (principal); R51.9 Headache, unspecified
CPT/HCPCS: 70220

== ENCOUNTER 2022-03-25 14:28 | Outpatient (CLI) | payer OTHER, SELFPAY ==
[2022-03-25 15:26] LABS: Anion Gap 9 mmol/L (8-16); Blood Urea Nitrogen 12 mg/dL (7-18); Calcium 8.2 mg/dL (8.5-10.1); Carbon Dioxide 27 mmol/L (21-32); Chloride 103 mmol/L (98-108); Estimated Glomerular Filt Rate 47; Glucose 86 mg/dL (70-99); Osmolality Calculated 286 mOsm/kg (285-295); Phosphorus 3.9 mg/dL (2.6-4.7); Potassium 4.9 mmol/L (3.5-5.1); Sodium 139 mmol/L (136-145)
[2022-03-28 15:02] LABS: Parathyroid Intact 241 pg/mL (14-64)
[2022-03-29 18:37] LABS: Vitamin D 25 Hydroxy 34 ng/mL (30-100)
== END 2022-03-25 14:29 | disposition home or self-care (01) ==
LOC: CHSLAB 14:31
PROVIDERS: PCP Internal Medicine
DX: E21.1 Secondary hyperparathyroidism, not elsewhere classified (principal)
CPT/HCPCS: 36415; 80048; 82306; 83970; 84100

== ENCOUNTER 2022-03-30 12:55 | Outpatient (CLI) | payer OTHER, SELFPAY ==
[2022-03-30 13:53] LABS: Alanine Aminotransferase 48 U/L (14-59); Albumin Level 3.1 g/dL (3.4-5.0); Alkaline Phosphatase 125 U/L (46-116); Anion Gap 6 mmol/L (8-16); Aspartate Amino Transferase 33 U/L (15-37); Bilirubin,Total 0.3 mg/dL (0.00-1.00); Blood Urea Nitrogen 11 mg/dL (7-18); Carbon Dioxide 27 mmol/L (21-32); Chloride 107 mmol/L (98-108); Estimated Glomerular Filt Rate 57; Glucose 92 mg/dL (70-99); Osmolality Calculated 289 mOsm/kg (285-295); Potassium 4.5 mmol/L (3.5-5.1); Sodium 140 mmol/L (136-145); Total Protein 6.9 g/dL (6.4-8.2)
== END 2022-03-30 12:56 | disposition home or self-care (01) ==
LOC: CHSLAB 12:56
PROVIDERS: PCP Internal Medicine; Visit Provider Internal Medicine
DX: E83.51 Hypocalcemia (principal)
CPT/HCPCS: 36415; 80053

== ENCOUNTER 2022-04-15 11:46 | Outpatient (CLI) | payer OTHER, SELFPAY ==
[2022-04-15 12:03] LABS: Basophils Absolute Auto 0.03 K/mm3 (0.00-0.10); Basophils Percent Auto 0.3 % (0.0-1.0); Eosinophils Absolute Auto 0.35 K/mm3 (0.02-0.50); Eosinophils Percent Auto 3.8 % (1.0-6.0); Hematocrit 43.7 % (35.0-49.0); Hemoglobin 14.3 g/dL (12.0-15.0); Immature Granulocyte Absolute 0.02 K/mm3 (0.00-0.00); Immature Granulocyte Percent A 0.2 % (0.0-0.0); Lymphocytes Absolute Auto 1.84 K/mm3 (1.10-4.50); Lymphocytes Percent Auto 20.2 % (18.0-42.0); Mean Corpuscular HGB Conc 32.7 g/dL (32.0-36.0); Mean Corpuscular Hemoglobin 30.9 pg (27.0-31.0); Mean Corpuscular Volume 94.4 fL (78.0-102.0); Mean Platelet Volume 9.4 fl (9.2-11.8); Monocytes Absolute Auto 0.73 K/mm3 (0.10-0.90); Neutrophils Absolute Auto 6.1 K/mm3 (1.7-7.2); Neutrophils Percent Auto 67.5 % (50.0-70.0); Platelet Count Result 228 K/mm3 (150-420); Red Blood Count 4.63 M/mm3 (4.20-5.40); Red Cell Distribution Width 14.1 % (11.6-14.4); White Blood Count 9.1 K/mm3 (4.8-10.8)
[2022-04-15 13:11] LABS: Albumin Level 3.1 g/dL (3.4-5.0); Anion Gap 10 mmol/L (8-16); Blood Urea Nitrogen 12 mg/dL (7-18); Calcium 8.1 mg/dL (8.5-10.1); Carbon Dioxide 23 mmol/L (21-32); Chloride 108 mmol/L (98-108); Estimated Glomerular Filt Rate 53; Ferritin 44 ng/mL (8-252); Glucose 101 mg/dL (70-99); Iron 68 ug/dL (50-170); Osmolality Calculated 291 mOsm/kg (285-295); Percent Iron Saturation 20 % (12-57); Phosphorus 4.2 mg/dL (2.6-4.7); Potassium 4.7 mmol/L (3.5-5.1); Sodium 141 mmol/L (136-145)
== END 2022-04-15 11:47 | disposition home or self-care (01) ==
LOC: CHSLAB 11:49
PROVIDERS: PCP Internal Medicine; Visit Provider Internal Medicine Nephrology
DX: N25.81 Secondary hyperparathyroidism of renal origin (principal); N18.31 Chronic kidney disease, stage 3a; D63.1 Anemia in chronic kidney disease
CPT/HCPCS: 36415; 80069; 82728; 83540; 83550; 83970; 85025

== ENCOUNTER 2022-04-26 12:21 | Outpatient (CLI) | payer OTHER, SELFPAY ==
[2022-04-26 12:48] LABS: Appearance Urine Clear (Clear); Bilirubin Urine Negative (Negative); Blood Urine Negative (Negative); Glucose Urine UA Negative (Negative); Ketones Urine Negative (Negative); Leukocyte Esterase Ur 3+ (Negative); Nitrate Urine Positive (Negative); Protein Urine Negative (Negative); Urobilinogen Urine 0.2 mg/dL (0.2-1.0)
[2022-04-26 12:51] LABS: Add Urine Microscopic? YES; Color Urine Light Yellow (Yellow)
[2022-04-26 12:55] LABS: Bacteria Urine 3+ /hpf; RBC Urine None seen /hpf (0-2); Squamous Epithelial Cell Urine Few /hpf (Few)
== END 2022-04-26 12:22 | disposition home or self-care (01) ==
LOC: CHSLAB 12:23
PROVIDERS: PCP Internal Medicine; Visit Provider Internal Medicine Nephrology
DX: N18.31 Chronic kidney disease, stage 3a (principal)
CPT/HCPCS: 81001

== ENCOUNTER 2022-05-02 13:12 | Outpatient (CLI) | payer OTHER, SELFPAY ==
[2022-05-02 14:19] LABS: Anion Gap 10 mmol/L (8-16); Blood Urea Nitrogen 13 mg/dL (7-18); Calcium 8.3 mg/dL (8.5-10.1); Carbon Dioxide 25 mmol/L (21-32); Chloride 108 mmol/L (98-108); Estimated Glomerular Filt Rate 58; Glucose 90 mg/dL (70-99); Osmolality Calculated 296 mOsm/kg (285-295); Phosphorus 4.2 mg/dL (2.6-4.7); Potassium 4.9 mmol/L (3.5-5.1); Sodium 143 mmol/L (136-145); Thyroid Stimulating Hormone 5.89 uIU/mL (0.36-3.74)
[2022-05-04 22:29] LABS: Parathyroid Intact 177 pg/mL (14-64)
== END 2022-05-02 13:13 | disposition home or self-care (01) ==
LOC: CHSLAB 13:15
PROVIDERS: PCP Internal Medicine
DX: E83.51 Hypocalcemia (principal); E03.9 Hypothyroidism, unspecified
CPT/HCPCS: 36415; 80048; 83970; 84100; 84443

== ENCOUNTER 2022-07-20 11:50 | Outpatient (CLI) | payer OTHER, SELFPAY ==
[2022-07-20 13:31] LABS: Anion Gap 8 mmol/L (8-16); Blood Urea Nitrogen 20 mg/dL (7-18); Calcium 8.4 mg/dL (8.5-10.1); Carbon Dioxide 24 mmol/L (21-32); Chloride 104 mmol/L (98-108); Estimated Glomerular Filt Rate 54; Glucose 90 mg/dL (70-99); Osmolality Calculated 284 mOsm/kg (285-295); Phosphorus 4.4 mg/dL (2.6-4.7); Potassium 4.9 mmol/L (3.5-5.1); Sodium 136 mmol/L (136-145); Thyroid Stimulating Hormone 3.29 uIU/mL (0.36-3.74)
[2022-07-22 20:48] LABS: Parathyroid Intact 191 pg/mL (14-64)
[2022-07-24 11:00] LABS: Vitamin D 25 Hydroxy 23 ng/mL (30-100)
== END 2022-07-20 11:51 | disposition home or self-care (01) ==
LOC: CHSLAB 11:53
PROVIDERS: PCP Internal Medicine
DX: E21.1 Secondary hyperparathyroidism, not elsewhere classified (principal); E83.51 Hypocalcemia
CPT/HCPCS: 36415; 80048; 82306; 83970; 84100; 84443

== ENCOUNTER 2022-07-28 10:39 | Outpatient (CLI) | payer OTHER, SELFPAY ==
--- NOTE | ~2022-07-28 | CT_ITS ---
EXAMINATION: CT sinus wo con DATE: 07/28/2022 11:04 INDICATION: Sinusitis. TECHNIQUE: Computed tomography (CT) of the paranasal sinuses was performed without intravenous contra st. The dose-length product was 316.52 mGy-cm. Automated exposure control and iterative reconstructio n technique were employed. COMPARISON: None FINDINGS: There is mild mucosal thickening of the ethmoid and maxillary sinuses. Mastoids are pneumat ized. There is demineralization. No air-fluid levels. Rightward nasal septal deviation. Ostiomeatal u nits are patent. IMPRESSION: 1. Mild sinus disease. Reviewed, dictated and finalized at location L. [employer] IMPRESSION: 1. Mild sinus disease.
== END 2022-07-28 10:40 | disposition home or self-care (01) ==
LOC: CHSIMG 10:40
PROVIDERS: PCP Internal Medicine; Visit Provider Otolaryngology
DX: D49.1 Neoplasm of unspecified behavior of respiratory system (principal); J32.9 Chronic sinusitis, unspecified
CPT/HCPCS: 70486

== ENCOUNTER 2022-08-23 11:45 | Outpatient (CLI) | payer OTHER, SELFPAY ==
[2022-08-23 12:23] LABS: Anion Gap 10 mmol/L (8-16); Blood Urea Nitrogen 12 mg/dL (7-18); Calcium 8.5 mg/dL (8.5-10.1); Carbon Dioxide 25 mmol/L (21-32); Chloride 108 mmol/L (98-108); Estimated Glomerular Filt Rate 56; Glucose 92 mg/dL (70-99); Osmolality Calculated 295 mOsm/kg (285-295); Potassium 4.6 mmol/L (3.5-5.1); Sodium 143 mmol/L (136-145)
[2022-08-30 15:21] LABS: Parathyroid Intact 130 pg/mL (14-64)
== END 2022-08-23 11:46 | disposition home or self-care (01) ==
LOC: CHSLAB 11:48
PROVIDERS: PCP Internal Medicine
DX: E21.1 Secondary hyperparathyroidism, not elsewhere classified (principal)
CPT/HCPCS: 36415; 80048; 83970

== ENCOUNTER 2022-10-12 13:21 | Outpatient (CLI) | payer OTHER, SELFPAY ==
[2022-10-12 13:37] LABS: Basophils Absolute Auto 0.05 K/mm3 (0.00-0.10); Basophils Percent Auto 0.8 % (0.0-1.0); Hematocrit 42.9 % (35.0-49.0); Hemoglobin 13.7 g/dL (12.0-15.0); Immature Granulocyte Absolute 0.01 K/mm3 (0.00-0.00); Immature Granulocyte Percent A 0.2 % (0.0-0.0); Lymphocytes Absolute Auto 1.71 K/mm3 (1.10-4.50); Lymphocytes Percent Auto 28.5 % (18.0-42.0); Mean Corpuscular HGB Conc 31.9 g/dL (32.0-36.0); Mean Corpuscular Hemoglobin 30.1 pg (27.0-31.0); Mean Corpuscular Volume 94.3 fL (78.0-102.0); Mean Platelet Volume 9.6 fl (9.2-11.8); Monocytes Absolute Auto 0.59 K/mm3 (0.10-0.90); Monocytes Percent Auto 9.8 % (2.0-11.0); Neutrophils Absolute Auto 3.3 K/mm3 (1.7-7.2); Neutrophils Percent Auto 55.7 % (50.0-70.0); Platelet Count Result 235 K/mm3 (150-420); Red Blood Count 4.55 M/mm3 (4.20-5.40); Red Cell Distribution Width 13.1 % (11.6-14.4)
[2022-10-12 13:58] LABS: Albumin Level 3.2 g/dL (3.4-5.0); Anion Gap 8 mmol/L (8-16); Blood Urea Nitrogen 12 mg/dL (7-18); Calcium 8.5 mg/dL (8.5-10.1); Carbon Dioxide 30 mmol/L (21-32); Chloride 107 mmol/L (98-108); Estimated Glomerular Filt Rate 57; Glucose 83 mg/dL (70-99); Iron 68 ug/dL (50-170); Osmolality Calculated 298 mOsm/kg (285-295); Percent Iron Saturation 15 % (12-57); Phosphorus 3.7 mg/dL (2.6-4.7); Potassium 4.5 mmol/L (3.5-5.1); Sodium 145 mmol/L (136-145)
[2022-10-17 15:35] LABS: Parathyroid Intact 147 pg/mL (14-64)
== END 2022-10-12 13:22 | disposition home or self-care (01) ==
LOC: CHSLAB 13:23
PROVIDERS: PCP Internal Medicine; Visit Provider Internal Medicine Nephrology
DX: N18.31 Chronic kidney disease, stage 3a (principal); N25.81 Secondary hyperparathyroidism of renal origin; I12.9 Hypertensive chronic kidney disease with stage 1 through stage 4 chronic kidney disease, or unspecified chronic kidney disease
CPT/HCPCS: 36415; 80069; 83540; 83550; 83970; 85025

== ENCOUNTER 2022-10-21 15:20 | Emergency (ER) | payer OTHER, SELFPAY ==
[2022-10-21 15:20] VITALS: BP 143/97; PULSE 56; RESP 16; TEMP 36.2; O2SAT 97
--- NOTE | 2022-10-21 16:08 | PC.NURSE ---
pt currently drinking water as she is unable to urinate at this time
--- NOTE | 2022-10-21 16:35 | ED.FEMALEGU ---
HPI - Female Genitourinary General Chief complaint: Urogenital-Female Stated complaint: blood in urine Time Seen by Provider: 10/21/22 16:30 History of Present Illness HPI Narrative: 62-year-old female patient is here with complaints of having blood in the urine x3 today. She has had some burning sensation on urination. She has no abdominal pain. He reports no nausea vomiting or diarrhea. She reports no fever or chills. She is not on any blood thinners. Related Data Home Medications Medication Instructions Recorded Confirmed amitriptyline 10 mg tablet 10 mg PO BID 10/24/19 07/15/22 calcitriol 0.5 mcg capsule 0.25 mcg PO DAILY 10/24/19 07/15/22 cetirizine 10 mg tablet (Allergy 10 mg PO DAILY 10/24/19 07/15/22 Relief (cetirizine)) fluoxetine 40 mg capsule 40 mg PO BID 10/24/19 07/15/22 levothyroxine 50 mcg tablet 50 mcg PO DAILY 10/24/19 07/15/22 metoprolol succinate 50 mg 50 mg PO DAILY 10/24/19 07/15/22 tablet,extended release 24 hr potassium chloride 20 mEq 20 meq PO DAILY 10/24/19 07/15/22 tablet,extended release(part/cryst) sodium bicarbonate 650 mg tablet 650 mg PO DAILY 10/24/19 07/15/22 cyanocobalamin (vitamin B-12) 2,500 mcg PO DAILY 02/15/22 07/15/22 ferrous sulfate 325 mg (65 mg 325 mg DAILY 02/15/22 07/15/22 iron) tablet (FeroSul) fluticasone furoate 2 spray DAILY 02/15/22 07/15/22 beta carotene 30 mg capsule mg PO 02/25/22 07/15/22 calcium carbonate 300 mg (750 mg) 300 mg PO DAILY 02/25/22 07/15/22 chewable tablet (Tums Extra Strength Smoothies) fluconazole 100 mg tablet 100 mg PO DAILY 02/25/22 07/15/22 multivitamin 1 tablet PO DAILY 02/25/22 07/15/22 terbinafine HCl 250 mg tablet 250 mg PO DAILY 02/25/22 07/15/22 sodium bicarbonate 650 mg tablet 650 mg PO BID 07/15/22 07/15/22 Allergies Allergy/AdvReac Type Severity Reaction Status Date / Time ciprofloxacin [From Cipro] Allergy Other Verified 07/15/22 08:53 Review of Systems Review of Systems: All systems reviewed & are unremarkable except as noted in HPI and below PMFSH Past Medical History Medical History Bradycardia HTN (hypertension) Hyperparathyroidism Hypothyroidism Renal tubular acidosis Trichotillomania Surgical History Surgical History H/O gastric bypass 2002 in [place] - laparoscopic duodenal switch procedure H/O knee surgery H/O parathyroidectomy History of colon surgery 02/15/22 Open right hemicolectomy with ileocolic anastomosis History of colonoscopy with polypectomy May 2021 with benign polypectomy History of extraction of renal calculus History of laparoscopic appendectomy History of laparoscopic cholecystectomy cholecystectomy during her laparoscopic gastric surgery Family History Family History (Updated 07/15/22 @ 09:02 by Mady Galvin [facility]) Father Asthma Hypertension Mother Breast cancer Sibling Diabetes mellitus Hypertension Grandparent Cancer Grandparent Diabetes mellitus Cancer Other No pertinent family history Social History Social History Smoking status: Never smoker Alcohol intake: never Substance use: current Substance use type: painkillers and prescription drug Lack of Transportation: No Lack of Food: Never True Current Housing: I Have Housing Concerned About Future Housing: No Difficulty Paying Gas/Electric Bills: No Difficulty Paying for Meds: YES Currently Unemployed: No Education: Bachelor's Degree Difficulty w/ Childcare or Family Care: No Occupation/Education: other Additional occupation/education comments: on disability Spiritual care concerns: No Exam Narrative: Patient is alert and appears in no acute distress. Vital signs are stable and patient is afebrile. HEENT is normal. Lungs are clear bilaterally. Heart tones are regular. Abdomen is soft w
[2022-10-21 17:02] LABS: Appearance Urine Clear (Clear); Bilirubin Urine Negative (Negative); Blood Urine 3+ (Negative); Color Urine Light Yellow (Yellow); Glucose Urine UA Negative (Negative); Ketones Urine Negative (Negative); Leukocyte Esterase Ur 3+ (Negative); Nitrate Urine Negative (Negative); Protein Urine Negative (Negative); Urobilinogen Urine 0.2 mg/dL (0.2-1.0)
[2022-10-21 17:07] LABS: Add Urine Microscopic? YES; Bacteria Urine 1+ /hpf; Squamous Epithelial Cell Urine Few /hpf (Few); WBC Urine >75 /hpf (0-3)
[2022-10-21] MEDS: SULFAMETHOXAZOLE/TRIMETHOPRIM 800/160 MG DS TABLET 1 TAB PO (18:30)
[2022-10-21 18:31] VITALS: BP 144/88; PULSE 54; RESP 20; TEMP 36.9; O2SAT 97
== END 2022-10-21 18:33 | disposition home or self-care (01) ==
PROVIDERS: Emergency Provider Emergency Medicine; PCP Internal Medicine
DX: N39.0 Urinary tract infection, site not specified (principal); I10 Essential (primary) hypertension; E03.9 Hypothyroidism, unspecified
CPT/HCPCS: 81001; 99283; A9270

== ENCOUNTER 2022-10-31 05:01 | Emergency (ER) | payer OTHER, SELFPAY ==
--- NOTE | ~2022-10-31 | XR_ITS ---
EXAMINATION: XR toe 1st LT min 2V DATE: 10/31/2022 05:23 INDICATION: Left great toe pain. Fall. TECHNIQUE: 4 views of left great toe were obtained. COMPARISON: Left foot radiographs 04/06/2014 FINDINGS: Bone alignment is normal. There is a fracture of dorsal base of first distal phalanx with 1 .5 mm displacement. 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 IMPRESSION: 1. Fracture of dorsal base of first distal phalanx. Reviewed, dictated and finalized at location A.
[2022-10-31 05:03] VITALS: BP 141/85; PULSE 68; RESP 18; TEMP 36.8; O2SAT 97
--- NOTE | 2022-10-31 05:26 | ED.GENADULT ---
HPI - General Adult General Chief complaint: Extremity Injury, Lower Stated complaint: Extremity Injury, Lower Source: patient Mode of arrival: ambulatory Limitations: no limitations History of Present Illness HPI narrative: 62-year-old white female actually stubbed her left great toe On her CT post this morning causing it to hyper flex. complains of pain in her left great toe and has 1 spot of blood where it bled out from underneath the nailbed. Hurts to walk on it. she was a little nauseous shortly after doing this. Denies any vomiting otherwise she has no complaints she has been eating drinking stooling voiding fine no other swelling pain injury or cough fever sore throat runny nose rash or itching dizziness or lightheadedness or any other complaints. Related Data Home Medications Medication Instructions Recorded Confirmed amitriptyline 10 mg tablet 10 mg PO BID 10/24/19 10/31/22 calcitriol 0.5 mcg capsule 0.25 mcg PO DAILY 10/24/19 10/31/22 cetirizine 10 mg tablet (Allergy 10 mg PO DAILY 10/24/19 10/31/22 Relief (cetirizine)) fluoxetine 40 mg capsule 40 mg PO BID 10/24/19 10/31/22 levothyroxine 50 mcg tablet 50 mcg PO DAILY 10/24/19 10/31/22 metoprolol succinate 50 mg 50 mg PO DAILY 10/24/19 10/31/22 tablet,extended release 24 hr potassium chloride 20 mEq 20 meq PO DAILY 10/24/19 10/31/22 tablet,extended release(part/cryst) cyanocobalamin (vitamin B-12) 2,500 mcg PO DAILY 02/15/22 10/31/22 ferrous sulfate 325 mg (65 mg 325 mg DAILY 02/15/22 10/31/22 iron) tablet (FeroSul) fluticasone furoate 2 spray DAILY 02/15/22 10/31/22 beta carotene 30 mg capsule mg PO 02/25/22 07/15/22 calcium carbonate 300 mg (750 mg) 300 mg PO DAILY 02/25/22 10/31/22 chewable tablet (Tums Extra Strength Smoothies) fluconazole 100 mg tablet 100 mg PO DAILY 02/25/22 10/31/22 multivitamin 1 tablet PO DAILY 02/25/22 10/31/22 terbinafine HCl 250 mg tablet 250 mg PO DAILY 02/25/22 07/15/22 sodium bicarbonate 650 mg tablet 650 mg PO BID 07/15/22 10/31/22 Allergies Allergy/AdvReac Type Severity Reaction Status Date / Time ciprofloxacin [From Cipro] Allergy Other Verified 10/31/22 05:08 Review of Systems Review of Systems: All systems reviewed & are unremarkable except as noted in HPI and below PMFSH Past Medical History Medical History Bradycardia HTN (hypertension) Hyperparathyroidism Hypothyroidism Renal tubular acidosis Trichotillomania Surgical History Surgical History H/O gastric bypass 2002 in [place] - laparoscopic duodenal switch procedure H/O knee surgery H/O parathyroidectomy History of colon surgery 02/15/22 Open right hemicolectomy with ileocolic anastomosis History of colonoscopy with polypectomy May 2021 with benign polypectomy History of extraction of renal calculus History of laparoscopic appendectomy History of laparoscopic cholecystectomy cholecystectomy during her laparoscopic gastric surgery Family History Family History Father Asthma Hypertension Mother Breast cancer Sibling Diabetes mellitus Hypertension Grandparent Cancer Grandparent Diabetes mellitus Cancer Other No pertinent family history Social History Social History Smoking status: Never smoker Alcohol intake: never Substance use: current Substance use type: painkillers and prescription drug Lack of Transportation: No Lack of Food: Never True Current Housing: I Have Housing Concerned About Future Housing: No Difficulty Paying Gas/Electric Bills: No Difficulty Paying for Meds: YES Currently Unemployed: No Education: Bachelor's Degree Difficulty w/ Childcare or Family Care: No Occupation/Education: other Additional occupation/education comments: on disab
[2022-10-31] MEDS: HYDROcodone/acetaminophen (*CRX) 5-325 MG TABLET 1 TAB PO (05:53)
== END 2022-10-31 06:08 | disposition home or self-care (01) ==
PROVIDERS: Emergency Provider Emergency Medicine; PCP Internal Medicine
DX: S92.422A Displaced fracture of distal phalanx of left great toe, initial encounter for closed fracture (principal); W22.8XXA Striking against or struck by other objects, initial encounter; I10 Essential (primary) hypertension; E03.9 Hypothyroidism, unspecified; E21.3 Hyperparathyroidism, unspecified; Z98.84 Bariatric surgery status; Z90.49 Acquired absence of other specified parts of digestive tract
CPT/HCPCS: 73660; 99283; A9270

== ENCOUNTER 2022-11-23 11:49 | Outpatient (CLI) | payer OTHER, SELFPAY ==
[2022-11-23 12:47] LABS: Anion Gap 9 mmol/L (8-16); Blood Urea Nitrogen 19 mg/dL (7-18); Calcium 8.5 mg/dL (8.5-10.1); Carbon Dioxide 25 mmol/L (21-32); Chloride 107 mmol/L (98-108); Estimated Glomerular Filt Rate 54; Glucose 89 mg/dL (70-99); Osmolality Calculated 293 mOsm/kg (285-295); Phosphorus 3.9 mg/dL (2.6-4.7); Potassium 4.9 mmol/L (3.5-5.1); Sodium 141 mmol/L (136-145)
[2022-11-26 14:04] LABS: Vitamin D 25 Hydroxy 24 ng/mL (30-100)
[2022-11-27 16:08] LABS: Parathyroid Intact 203 pg/mL (14-64)
== END 2022-11-23 11:50 | disposition home or self-care (01) ==
LOC: CHSLAB 11:53
PROVIDERS: PCP Internal Medicine
DX: E03.9 Hypothyroidism, unspecified (principal); E55.9 Vitamin D deficiency, unspecified
CPT/HCPCS: 36415; 80048; 82306; 83970; 84100

== ENCOUNTER 2022-11-25 13:43 | Outpatient (CLI) | payer OTHER, SELFPAY ==
--- NOTE | ~2022-11-25 | MM_ITS ---
EXAMINATION: MM screening sammie BI w ally HISTORY: Screening mammogram TECHNIQUE: Craniocaudal and mediolateral oblique 3-D tomosynthesis images were obtained and synthetic 2-D images were generated. CAD analysis was submitted and interpreted. COMPARISON: 11/23/2021, 09/17/2018, 09/11/2017 BREAST PARENCHYMAL COMPOSITION:The breasts are almost entirely fatty FINDINGS: No suspicious mass, calcification, or architectural distortion are identified in either angely ast to suggest malignancy. There has been no suspicious interval change. IMPRESSION: No mammographic evidence of malignancy. Recommend routine screening mammography in one year. BI-RADS Category 1: Negative Reviewed, dictated and finalized at location .
== END 2022-11-25 13:44 | disposition home or self-care (01) ==
LOC: CHSIMG 13:43
PROVIDERS: PCP Internal Medicine
DX: Z12.31 Encounter for screening mammogram for malignant neoplasm of breast (principal)
CPT/HCPCS: 77063; 77067

== ENCOUNTER 2022-12-08 12:15 | Outpatient (CLI) | payer OTHER, SELFPAY ==
--- NOTE | ~2022-12-08 | XR_ITS ---
AP, oblique, and lateral views of the left great toe Clinical history: Fracture follow-up COMPARISON: 10/31/2022 FINDINGS: There is been partial interval healing of the fractured the dorsal aspect of the distal walters creas of the great toe. Osseous alignment unchanged. There is disuse osteopenia. IMPRESSION: Partial interval healing of fracture of the distal phalanx of the great toe. Reviewed, dictated and finalized at location .
== END 2022-12-08 12:16 | disposition home or self-care (01) ==
LOC: CHSIMG 12:17
PROVIDERS: PCP Internal Medicine; Visit Provider Internal Medicine
DX: S92.422D Displaced fracture of distal phalanx of left great toe, subsequent encounter for fracture with routine healing (principal)
CPT/HCPCS: 73660

== ENCOUNTER 2022-12-30 12:05 | Outpatient (CLI) | payer OTHER, SELFPAY ==
[2022-12-30 12:51] LABS: Cholesterol 154 mg/dL (0-200); HDL Direct 43 mg/dL (40-60); LDL Cholesterol Calculated 91 mg/dL (<130); Triglycerides 100 mg/dL (0-150)
== END 2022-12-30 12:06 | disposition home or self-care (01) ==
LOC: CHSLAB 12:07
PROVIDERS: PCP Internal Medicine; Visit Provider Internal Medicine Cardiovascular Disease
DX: I10 Essential (primary) hypertension (principal)
CPT/HCPCS: 36415; 80061

== ENCOUNTER 2023-01-12 10:21 | Outpatient (CLI) | payer OTHER, SELFPAY ==
--- NOTE | ~2023-01-12 | XR_ITS ---
EXAMINATION: XR toe 1st LT min 2V DATE: 01/12/2023 10:39 INDICATION: Left great toe fracture TECHNIQUE: Dorsal plantar, lateral and oblique views of the left great toe were obtained. COMPARISON: 12/08/2022 and 10/31/2022 FINDINGS: Oblique band of sclerosis extending across the distal aspect of the left first proximal phalanx consi stent with a healing nondisplaced intra-articular fracture which remains in essentially anatomic alig nment without evident fracture gap or step-off at the articular cortex. There is a still ununited min imally distracted small intra-articular fracture involving the dorsal base of the distal phalanx. The fracture margins are smooth but without evident cortication to suggest nonunion but also without rene dent bridging callus. There is a chronic corticated ossicle dorsal to the head of the first proximal phalanx which can be seen dating back to radiograph dated 04/06/2014 which could be either enthesopath ic or sequela of an earlier old trauma. Diffuse osteopenia. No other fractures identified. Mild polya rticular osteoarthritis involving multiple joints throughout the left foot. IMPRESSION: 1. Healing intra-articular fracture at the head of the left first proximal phalanx which remains in e ssentially anatomic alignment. 2. Unchanged minimal distraction of an intra-articular distal ununited likely avulsion fracture at th e dorsal base of the first distal phalanx. Reviewed, dictated and finalized at location L. IMPRESSION: 1. Healing intra-articular fracture at the head of the left first proximal phal anx which remains in essentially anatomic alignment. 2. Unchanged minimal distraction of an intra-articular distal ununited likely a vulsion fracture at the dorsal base of the first distal phalanx.
== END 2023-01-12 10:22 | disposition home or self-care (01) ==
LOC: CHSIMG 10:23
PROVIDERS: PCP Internal Medicine; Visit Provider Internal Medicine
DX: S92.412D Displaced fracture of proximal phalanx of left great toe, subsequent encounter for fracture with routine healing (principal); S92.422A Displaced fracture of distal phalanx of left great toe, initial encounter for closed fracture
CPT/HCPCS: 73660

== ENCOUNTER 2023-03-27 11:51 | Outpatient (CLI) | payer OTHER, SELFPAY ==
[2023-03-27 12:45] LABS: Alanine Aminotransferase 42 U/L (14-59); Albumin Level 3.4 g/dL (3.4-5.0); Alkaline Phosphatase 97 U/L (46-116); Anion Gap 10 mmol/L (8-16); Aspartate Amino Transferase 27 U/L (15-37); Bilirubin,Total 0.3 mg/dL (0.00-1.00); Blood Urea Nitrogen 15 mg/dL (7-18); Calcium 8.9 mg/dL (8.5-10.1); Carbon Dioxide 26 mmol/L (21-32); Chloride 106 mmol/L (98-108); Estimated Glomerular Filt Rate 59; Glucose 86 mg/dL (70-99); Osmolality Calculated 293 mOsm/kg (285-295); Phosphorus 4.2 mg/dL (2.6-4.7); Potassium 4.8 mmol/L (3.5-5.1); Sodium 142 mmol/L (136-145); Total Protein 7.5 g/dL (6.4-8.2)
[2023-03-29 12:23] LABS: Vitamin D 25 Hydroxy 28 ng/mL (30-100)
[2023-03-30 18:57] LABS: Parathyroid Intact 167 pg/mL (14-64)
== END 2023-03-27 11:52 | disposition home or self-care (01) ==
LOC: CHSLAB 11:54
PROVIDERS: PCP Internal Medicine
DX: E21.1 Secondary hyperparathyroidism, not elsewhere classified (principal); K91.2 Postsurgical malabsorption, not elsewhere classified
CPT/HCPCS: 36415; 80053; 82306; 83970; 84100

== ENCOUNTER 2023-04-12 12:06 | Outpatient (CLI) | payer OTHER, SELFPAY ==
[2023-04-12 13:05] LABS: Basophils Absolute Auto 0.04 K/mm3 (0.00-0.10); Basophils Percent Auto 0.6 % (0.0-1.0); Eosinophils Absolute Auto 0.21 K/mm3 (0.02-0.50); Eosinophils Percent Auto 2.9 % (1.0-6.0); Hematocrit 44.4 % (35.0-49.0); Hemoglobin 13.9 g/dL (12.0-15.0); Immature Granulocyte Absolute 0.01 K/mm3 (0.00-0.00); Immature Granulocyte Percent A 0.1 % (0.0-0.0); Lymphocytes Absolute Auto 0.78 K/mm3 (1.10-4.50); Lymphocytes Percent Auto 10.8 % (18.0-42.0); Mean Corpuscular HGB Conc 31.3 g/dL (32.0-36.0); Mean Corpuscular Hemoglobin 28.1 pg (27.0-31.0); Mean Corpuscular Volume 89.7 fL (78.0-102.0); Mean Platelet Volume 9.1 fl (9.2-11.8); Monocytes Absolute Auto 0.53 K/mm3 (0.10-0.90); Monocytes Percent Auto 7.4 % (2.0-11.0); Neutrophils Absolute Auto 5.6 K/mm3 (1.7-7.2); Neutrophils Percent Auto 78.2 % (50.0-70.0); Platelet Count Result 258 K/mm3 (150-420); Red Blood Count 4.95 M/mm3 (4.20-5.40); Red Cell Distribution Width 13.4 % (11.6-14.4); White Blood Count 7.2 K/mm3 (4.8-10.8)
[2023-04-12 13:32] LABS: Albumin Level 3.1 g/dL (3.4-5.0); Anion Gap 10 mmol/L (8-16); Blood Urea Nitrogen 12 mg/dL (7-18); Calcium 8.5 mg/dL (8.5-10.1); Carbon Dioxide 26 mmol/L (21-32); Chloride 104 mmol/L (98-108); Estimated Glomerular Filt Rate 54; Glucose 91 mg/dL (70-99); Osmolality Calculated 289 mOsm/kg (285-295); Phosphorus 3.7 mg/dL (2.6-4.7); Potassium 4.4 mmol/L (3.5-5.1); Sodium 140 mmol/L (136-145)
[2023-04-13 10:38] LABS: Alanine Aminotransferase 40 U/L (14-59); Alkaline Phosphatase 103 U/L (46-116); Aspartate Amino Transferase 29 U/L (15-37); Bilirubin Direct 0.1 mg/dL (0-0.2); Bilirubin,Total 0.4 mg/dL (0.00-1.00); Total Protein 7.4 g/dL (6.4-8.2)
[2023-04-15 21:24] LABS: Parathyroid Intact 156 pg/mL (14-64)
== END 2023-04-12 12:07 | disposition home or self-care (01) ==
LOC: CHSLAB 12:10
PROVIDERS: PCP Internal Medicine
DX: I12.9 Hypertensive chronic kidney disease with stage 1 through stage 4 chronic kidney disease, or unspecified chronic kidney disease (principal); E03.9 Hypothyroidism, unspecified; N18.2 Chronic kidney disease, stage 2 (mild); N25.81 Secondary hyperparathyroidism of renal origin; E87.22 Chronic metabolic acidosis
CPT/HCPCS: 36415; 80069; 80076; 83970; 84443; 85025

== ENCOUNTER 2023-07-11 13:56 | Outpatient (CLI) | payer OTHER, SELFPAY ==
[2023-07-11 14:09] LABS: Basophils Absolute Auto 0.04 K/mm3 (0.00-0.10); Basophils Percent Auto 0.8 % (0.0-1.0); Eosinophils Percent Auto 5.7 % (1.0-6.0); Hematocrit 42.3 % (35.0-49.0); Hemoglobin 13.2 g/dL (12.0-15.0); Immature Granulocyte Absolute 0.01 K/mm3 (0.00-0.00); Immature Granulocyte Percent A 0.2 % (0.0-0.0); Lymphocytes Absolute Auto 1.51 K/mm3 (1.10-4.50); Lymphocytes Percent Auto 28.5 % (18.0-42.0); Mean Corpuscular HGB Conc 31.2 g/dL (32.0-36.0); Mean Corpuscular Hemoglobin 27.4 pg (27.0-31.0); Mean Corpuscular Volume 87.9 fL (78.0-102.0); Mean Platelet Volume 9.4 fl (9.2-11.8); Monocytes Absolute Auto 0.58 K/mm3 (0.10-0.90); Monocytes Percent Auto 10.9 % (2.0-11.0); Neutrophils Absolute Auto 2.9 K/mm3 (1.7-7.2); Neutrophils Percent Auto 53.9 % (50.0-70.0); Platelet Count Result 291 K/mm3 (150-420); Red Blood Count 4.81 M/mm3 (4.20-5.40); Red Cell Distribution Width 14.7 % (11.6-14.4); White Blood Count 5.3 K/mm3 (4.8-10.8)
[2023-07-11 14:12] LABS: Bilirubin Urine Negative (Negative); Glucose Urine UA Negative (Negative); Ketones Urine Negative (Negative); Leukocyte Esterase Ur 3+ (Negative); Nitrate Urine Positive (Negative); Protein Urine Negative (Negative); Specific Grav Ur 1.015 (1.010-1.020); Urobilinogen Urine 0.2 mg/dL (0.2-1.0)
[2023-07-11 14:16] LABS: Blood Urine Trace-lysed (Negative); Color Urine Yellow (Yellow)
[2023-07-11 14:17] LABS: Add Urine Microscopic? YES; Appearance Urine Slightly Cloudy (Clear); Bacteria Urine 1+ /hpf; RBC Urine 0-2 /hpf (0-2); Squamous Epithelial Cell Urine Moderate /hpf (Few)
[2023-07-11 14:57] LABS: Alanine Aminotransferase 99 U/L (14-59); Albumin Level 2.9 g/dL (3.4-5.0); Alkaline Phosphatase 128 U/L (46-116); Anion Gap 7 mmol/L (8-16); Aspartate Amino Transferase 75 U/L (15-37); Bilirubin,Total 0.4 mg/dL (0.00-1.00); Blood Urea Nitrogen 14 mg/dL (7-18); Calcium 8.3 mg/dL (8.5-10.1); Carbon Dioxide 28 mmol/L (21-32); Chloride 105 mmol/L (98-108); Cholesterol 140 mg/dL (0-200); Estimated Glomerular Filt Rate > 60; Ferritin 16 ng/mL (8-252); Free T3 2.21 pg/mL (2.18-3.98); Free T4 Free Thyroxine 1.08 ng/dL (0.76-1.46); Glucose 88 mg/dL (70-99); HDL Direct 43 mg/dL (40-60); Iron 77 ug/dL (50-170); LDL Cholesterol Calculated 84 mg/dL (<130); Osmolality Calculated 289 mOsm/kg (285-295); Potassium 4.8 mmol/L (3.5-5.1); Sodium 140 mmol/L (136-145); Thyroid Stimulating Hormone 3.49 uIU/mL (0.36-3.74); Total Protein 7.1 g/dL (6.4-8.2); Triglycerides 66 mg/dL (0-150)
== END 2023-07-11 13:57 | disposition home or self-care (01) ==
LOC: CHSLAB 13:58
PROVIDERS: PCP Internal Medicine; Visit Provider Internal Medicine
DX: E87.20 Acidosis, unspecified (principal); E03.4 Atrophy of thyroid (acquired); D50.0 Iron deficiency anemia secondary to blood loss (chronic); E53.8 Deficiency of other specified B group vitamins; E78.2 Mixed hyperlipidemia
CPT/HCPCS: 36415; 80053; 80061; 81001; 82728; 83540; 84439; 84443; 84481; 85025

== ENCOUNTER 2023-07-28 08:08 | Outpatient (CLI) | payer OTHER, SELFPAY ==
--- NOTE | ~2023-07-28 | DEXA_ITS ---
Bone Density Report Name: SARAHY RODRIGUEZ Age: 63 Sex: Female Ethnicity: White Date of : 1960 Indication: hyperparathyroidism; prior fracture; end stage renal disease; Referring Provider: UNKNOWN, UNKNOWN Study: Bone densitometry was performed. Exam Date: July 28, 2023 Accession number: [id number] Bone Density: Region BMD T-score Z-score Classification AP Spine(L1-L4) 0.811 -2.1 -0.4 Osteopenia Femoral Neck (Left) 0.550 -2.7 -1.2 Osteoporosis Total Hip (Left) 0.650 -2.4 -1.2 Osteopenia Femoral Neck (Right) 0.500 -3.1 -1.7 Osteoporosis Total Hip (Right) 0.519 -3.5 -2.3 Osteoporosis Femoral Neck Mean 0.525 -2.9 -1.5 Osteoporosis Total Hip Mean 0.584 -2.9 -1.8 Osteoporosis World Health Organization criteria for BMD impression classify patients as: Normal (T-score at or above -1.0), Osteopenia (T-score between -1.0 and -2.5), or Osteoporosis (T-score at or below -2.5). 10-year Fracture Risk: FRAX not reported because: Some T-score for Spine Total or Hip Total or Femoral Neck at or below -2.5 Prior hip or vertebral fracture Treated for osteoporosis Clinical Information Provided by Patient: Have had a previous hip or vertebral fracture Has had a low trauma fracture Is being treated for osteoporosis Has used the following medications: Fosamax (i.e. alendronate) Has the following medical conditions: End stage renal disease, Hyperparathyroidism Patient maximum height was 56 Menopause Age: 44 No regular weight bearing exercise Onset of menses at age 11 Number of children 0 Impression: The patient has established osteoporosis, based on the Right Total Hip T-score and the existence of a prior fracture. The patient has risk factors, including: previous fracture. Discussion: It is important to ask patients whether they are taking their medications and to encourage continued and appropriate compliance with their osteoporosis therapies to reduce fracture risk. It is also important to review their risk factors and encourage appropriate calcium and vitamin D intakes, exercise, fall prevention and other lifestyle measures. Follow-Up: Consider a repeat BMD and Vertebral Fracture Assessment (VFA) exam in 2 years or sooner if medically necessary, to reassess this patient's status. Reported by: Dr. Quinten Driscoll on 07/28/2023 8:43:00 AM. Reviewed, dictated and finalized at location A.
--- NOTE | ~2023-07-28 | US_ITS ---
Limited Abdominal Sonogram: Real-time sonographic imaging of the right upper quadrant was performed. Clinical History: Abnormal liver enzymes Findings: The liver appears mildly echogenic, with no evidence of mass lesion or bile duct dilatatio n. Main portal vein demonstrates normal direction of flow. The gallbladder is absent, compatible prio r cholecystectomy. The common bile duct measures 5 mm. The visualized pancreas, aorta, and IVC are u nremarkable. Impression: Probable fatty infiltration of liver. Status post cholecystectomy. Reviewed, dictated and finalized at location [facility] [employer] Impression: Probable fatty infiltration of liver. Status post cholecystectomy.
== END 2023-07-28 08:09 | disposition home or self-care (01) ==
LOC: CHSIMG 08:15
PROVIDERS: PCP Internal Medicine; Visit Provider Internal Medicine
DX: M81.0 Age-related osteoporosis without current pathological fracture (principal); R74.01 Elevation of levels of liver transaminase levels; Z90.49 Acquired absence of other specified parts of digestive tract; M85.89 Other specified disorders of bone density and structure, multiple sites
CPT/HCPCS: 76705; 77080

== ENCOUNTER 2023-09-25 14:50 | Outpatient (CLI) | payer OTHER, SELFPAY ==
[2023-09-25 15:18] LABS: Basophils Absolute Auto 0.04 K/mm3 (0.00-0.10); Basophils Percent Auto 0.4 % (0.0-1.0); Eosinophils Absolute Auto 0.09 K/mm3 (0.02-0.50); Eosinophils Percent Auto 0.8 % (1.0-6.0); Hematocrit 41.8 % (35.0-49.0); Hemoglobin 13.3 g/dL (12.0-15.0); Immature Granulocyte Absolute 0.04 K/mm3 (0.00-0.00); Immature Granulocyte Percent A 0.4 % (0.0-0.0); Lymphocytes Absolute Auto 1.25 K/mm3 (1.10-4.50); Mean Corpuscular HGB Conc 31.8 g/dL (32-36); Mean Corpuscular Hemoglobin 28.1 pg (27.0-31.0); Mean Corpuscular Volume 88.2 fL (78.0-102.0); Mean Platelet Volume 10.1 fl (9.2-11.8); Monocytes Absolute Auto 1.22 K/mm3 (0.10-0.90); Monocytes Percent Auto 10.7 % (2.0-11.0); Neutrophils Absolute Auto 8.73 K/mm3 (1.70-7.20); Neutrophils Percent Auto 76.7 % (50.0-70.0); Platelet Count Result 244 K/mm3 (150-420); Red Blood Count 4.74 M/mm3 (4.20-5.40); Red Cell Distribution Width 15.3 % (11.6-14.4); White Blood Count 11.4 K/mm3 (4.8-10.8)
[2023-09-25 15:20] LABS: Bilirubin Urine Negative (Negative); Blood Urine Trace-intact (Negative); Color Urine Light Yellow (Yellow); Glucose Urine UA Negative (Negative); Ketones Urine Negative (Negative); Leukocyte Esterase Ur 3+ (Negative); Nitrate Urine Positive (Negative); Protein Urine Trace (Negative); Specific Grav Ur <= 1.005 (1.010-1.020); Urobilinogen Urine 0.2 mg/dL (0.2-1.0)
[2023-09-25 15:30] LABS: Add Urine Microscopic? YES; Appearance Urine Cloudy (Clear); Bacteria Urine 2+ /hpf; RBC Urine 0-2 /hpf (0-2); Squamous Epithelial Cell Urine Few /hpf (Few)
[2023-09-25 15:53] LABS: Alanine Aminotransferase 83 U/L (14-59); Alkaline Phosphatase 179 U/L (46-116); Amylase 42 U/L (25-115); Anion Gap 13 mmol/L (4-12); Aspartate Amino Transferase 55 U/L (15-37); Bilirubin,Total 0.8 mg/dL (0.00-1.00); Blood Urea Nitrogen 15 mg/dL (7-18); CRP 2.6 mg/dL (0.0-0.9); Calcium 8.7 mg/dL (8.5-10.1); Carbon Dioxide 25 mmol/L (21-32); Chloride 102 mmol/L (98-108); Estimated Glomerular Filt Rate 50; Glucose 105 mg/dL (70-99); Lipase 42 U/L (16-77); Osmolality Calculated 290 mOsm/kg (285-295); Potassium 4.2 mmol/L (3.5-5.1); Sodium 140 mmol/L (136-145); Total Protein 7.9 g/dL (6.4-8.2)
[2023-09-25 16:27] LABS: Erythrocyte Sedimentation Rate 16 mm/hr (0-20)
== END 2023-09-25 14:51 | disposition home or self-care (01) ==
LOC: CHSLAB 14:53
PROVIDERS: PCP Internal Medicine; Visit Provider Internal Medicine
DX: R10.84 Generalized abdominal pain (principal)
CPT/HCPCS: 36415; 80053; 81001; 82150; 83605; 83690; 85025; 85652; 86140; 87077; 87086; 87088; 87186

== ENCOUNTER 2023-09-26 14:37 | Outpatient (CLI) | payer OTHER, SELFPAY ==
[2023-09-26 15:49] LABS: Toxigenic C. Diff NEGATIVE (NEGATIVE)
== END 2023-09-26 14:38 | disposition home or self-care (01) ==
LOC: CHSLAB 14:38
PROVIDERS: PCP Internal Medicine; Visit Provider Internal Medicine
DX: R10.84 Generalized abdominal pain (principal)
CPT/HCPCS: 87045; 87177; 87209; 87427; 87449; 87493

== ENCOUNTER 2023-09-27 16:28 | Emergency (ER) | payer OTHER, SELFPAY ==
[2023-09-27] VITALS (14 sets, daily range): BP systolic 127–151; BP diastolic 66–88; PULSE 74–93; RESP 18–20; TEMP 36.1; O2SAT 96–97
--- NOTE | ~2023-09-27 | CT_ITS ---
EXAMINATION: CT abdomen pelvis w con DATE: 09/27/2023 18:33 INDICATION: Low abdominal pain. TECHNIQUE: Computed tomography (CT) of the abdomen and pelvis was performed with 100 mL Omnipaque 350 intravenous contrast. Automated exposure control and iterative reconstruction technique were employe d. The dose-length product was 764.16 mGy-cm. COMPARISON: CT abdomen and pelvis 02/15/2022 FINDINGS: The visualized portions of the lung bases demonstrate minimal atelectasis on the right. No pleural effusion. The heart size is normal. No pericardial effusion. The liver and spleen are normal. There is thrombosis of main portal vein, right and left portal veins and portions of superior mesent nelson vein and splenic vein. There is fat stranding around these veins, consistent with edema and infl ammation. 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 The pancreas and adrenal glands are normal. There is cortical thinning of the kidneys. There are cysts in the kidneys measuring up to 13 mm on the right. There are proximally 7 stones in right kidney measuring up to 5 mm. There are greate r than 10 stones in left kidney measuring up to 5 mm. There is mesenteric gas around the sigmoid colo n. There is mesenteric gas in left upper quadrant. There is a periumbilical ventral hernia containing nonobstructed small bowel. There are changes of right hemicolectomy. There are changes of gastric sl eeve procedure. There are no pathologically enlarged lymph nodes. There is no free intraperitoneal fl uid. There is mild chronic height loss of multiple vertebral bodies. There is a hemangioma in T12 tameka tebral body. IMPRESSION: 1. Acute/subacute thrombosis of main portal vein, right and left portal veins, and portions of superi or mesenteric vein and splenic vein. Developmental of collateral veins around main portal vein (nasim nous transformation of main portal vein). 2. Foci of mesenteric gas in the left upper quadrant and left lower quadrant. 3. Periumbilical ventral hernia containing nonobstructed small bowel. Reviewed, dictated and finalized at location E. IMPRESSION: 1. Acute/subacute thrombosis of main portal vein, right and left portal veins, and portions of superior mesenteric vein and splenic vein. Developmental of col lateral veins around main portal vein (cavernous transformation of main portal vein). 2. Foci of mesenteric gas in the left upper quadrant and left lower quadrant. 3. Periumbilical ventral hernia containing nonobstructed small bowel.
--- NOTE | 2023-09-27 16:41 | ED.ABDPAIN ---
HPI - Abdominal Pain General Chief Complaint: Abdominal Pain Stated Complaint: abdominal pain, vomiting, and dizziness Time Seen by Provider: 09/27/23 16:41 Source: patient Mode of arrival: ambulatory Limitations: no limitations History of Present Illness HPI narrative: 63-year-old female with a history of hypertension, CKD, renal tubular acidosis, hyperparathyroidism status post partial parathyroidectomy, hypothyroidism, compression fracture, iron deficiency anemia kidney stones, status post gastric bypass in 2002, status post right hemicolectomy for cecal volvulus with ileocolic anastomosis on 02/15/2022, status post appendectomy, Status post cholecystectomy, status post kidney stone removal presents to the ER with a 4 day history of -- diffuse abdominal pain. Pain is intermittent. -- Multiple episodes of vomiting today. -- Patient is passing flatus and had a bowel movement this morning. -- Abdominal distension -- patient feels dry and has had decreased urine output no fever or chills. MD elicited complaint: abdominal pain Onset (ago): day(s) ( 4 days) Pain Consistency: intermittent Location: diffuse Severity: moderate Quality: aching Radiation: none Migration to: no migration Exacerbating factors: nothing Relieving factors: nothing Associated symptoms: denies other symptoms, nausea and vomiting Related Data Home Medications Medication Instructions Recorded Confirmed amitriptyline 10 mg tablet 10 mg PO BID 10/24/19 09/27/23 calcitriol 0.5 mcg capsule See Rx Instructions .Route .COMPLEX 10/24/19 09/27/23 cetirizine 10 mg tablet (Allergy 10 mg PO DAILY 10/24/19 09/27/23 Relief (cetirizine)) fluoxetine 40 mg capsule 40 mg PO BID 10/24/19 09/27/23 levothyroxine 50 mcg tablet 50 mcg PO DAILY 10/24/19 09/27/23 metoprolol succinate 50 mg 50 mg PO DAILY 10/24/19 09/27/23 tablet,extended release 24 hr potassium chloride 20 mEq 20 meq PO BID 10/24/19 09/27/23 tablet,extended release(part/cryst) cyanocobalamin (vitamin B-12) 2,500 mcg PO DAILY 02/15/22 09/27/23 beta carotene 30 mg capsule 30 mg PO DAILY 02/25/22 09/27/23 sodium bicarbonate 650 mg tablet See Rx Instructions .Route .COMPLEX 07/15/22 09/27/23 calcium citrate 250 mg PO BID 09/27/23 09/27/23 ergocalciferol (vitamin D2) 1,250 1,250 mcg PO WEEKLY 09/27/23 09/27/23 mcg (50,000 unit) capsule (Vitamin D2) Allergies Allergy/AdvReac Type Severity Reaction Status Date / Time ciprofloxacin [From Cipro] Allergy Other Verified 12/26/22 15:41 Review of Systems Review of Systems: All systems reviewed & are unremarkable except as noted in HPI and below Constitutional: Constitutional: Reports as per HPI and Reports no additional constitutional complaints Eyes: Eyes: Reports as per HPI and Reports no additional eye complaints ENT: Reports system reviewed and no additional complaints, except as documented and Reports as per HPI Cardiovascular: Cardiovascular: Reports as per HPI and Reports no additional cardiovascular complaints Respiratory: Respiratory: Reports as per HPI and Reports no additional respiratory complaints Gastrointestinal: Gastrointestinal: Reports as per HPI, Reports no additional gastrointestinal complaints, Reports abdominal pain, Reports nausea and Reports vomiting Genitourinary: Genitourinary: Reports no additional female genitourinary complaints Musculoskeletal: Musculoskeletal: Reports no additional musculoskeletal complaints and Reports as per HPI Integumentary/Breasts: Skin/Breast: Reports system reviewed and no additional complaints, except as docu and Reports as per HPI Neurologic: Reports system reviewed and no additional complaints, except as documented and Reports as per HPI Psychiatric: Psychiatric: Reports no additional psychiatric complaints and Reports as per HPI Endocrine: Endocrine: Reports no additional endocrine complaints and Reports as per HPI Hematologic/Lymphatic: Hematologic/Lymphatic: Reports no additional hem
--- NOTE | 2023-09-27 16:58 | ECG_ITS ---
SEE SCANNED COPY FOR CONFIRMED REPORT MTDD
[2023-09-27] MEDS: LACTATED RINGERS 1,000 ML 999 ML IV CONT (17:09)
[2023-09-27 17:25] LABS: Basophils Absolute Auto 0.03 K/mm3 (0.00-0.10); Basophils Percent Auto 0.3 % (0.0-1.0); Hematocrit 37.2 % (35.0-49.0); Hemoglobin 12.1 g/dL (12.0-15.0); Immature Granulocyte Absolute 0.04 K/mm3 (0.00-0.00); Immature Granulocyte Percent A 0.4 % (0.0-0.0); Lymphocytes Absolute Auto 0.53 K/mm3 (1.10-4.50); Lymphocytes Percent Auto 5.8 % (18.0-42.0); Mean Corpuscular HGB Conc 32.5 g/dL (32-36); Mean Corpuscular Hemoglobin 27.8 pg (27.0-31.0); Mean Corpuscular Volume 85.5 fL (78.0-102.0); Monocytes Absolute Auto 0.69 K/mm3 (0.10-0.90); Monocytes Percent Auto 7.5 % (2.0-11.0); Platelet Count Result 232 K/mm3 (150-420); Red Blood Count 4.35 M/mm3 (4.20-5.40); Red Cell Distribution Width 15.1 % (11.6-14.4); White Blood Count 9.2 K/mm3 (4.8-10.8)
[2023-09-27 17:39] LABS: INR 1.7; Partial Thromboplastin Time 33.7 Sec (23.9-30.70); Prothrombin Time 17.5 Seconds (9.50-12.1)
--- NOTE | 2023-09-27 17:40 | PC.NURSE ---
Pt resting and reading her book, VSS, call live in reach. POC discussed c pt, awaiting lab results and pt will have CT as ordered.
[2023-09-27 17:48] LABS: Lactic Acid Reflex 1.1 mmol/L (0.4-2.0)
[2023-09-27 17:49] LABS: Alanine Aminotransferase 71 U/L (14-59); Albumin Level 2.6 g/dL (3.4-5.0); Alkaline Phosphatase 166 U/L (46-116); Anion Gap 15 mmol/L (4-12); Aspartate Amino Transferase 46 U/L (15-37); Bilirubin,Total 0.6 mg/dL (0.00-1.00); Blood Urea Nitrogen 16 mg/dL (7-18); Calcium 8.7 mg/dL (8.5-10.1); Carbon Dioxide 20 mmol/L (21-32); Chloride 103 mmol/L (98-108); Estimated CRCL calculation 46 ml/min; Estimated Glomerular Filt Rate 47; Glucose 115 mg/dL (70-99); Lipase 27 U/L (16-77); Magnesium 1.8 mg/dL (1.8-2.4); NT Pro B Type Natriuretic Pept 581 pg/mL (0-125); Osmolality Calculated 288 mOsm/kg (285-295); Potassium 3.6 mmol/L (3.5-5.1); Sodium 138 mmol/L (136-145); Thyroid Stimulating Hormone 4.02 uIU/mL (0.36-3.74); Total Protein 7.7 g/dL (6.4-8.2); Troponin I 12.9 ng/L (0.00-60.4)
[2023-09-27] MEDS: ONDANSETRON INJ 4 MG/2 ML VIAL IV PUSH ×2 (18:29→22:53)
[2023-09-27 18:51] LABS: Appearance Urine Clear (Clear); Bilirubin Urine Negative (Negative); Blood Urine Trace-intact (Negative); Color Urine Light Yellow (Yellow); Glucose Urine UA Negative (Negative); Ketones Urine Negative (Negative); Leukocyte Esterase Ur 3+ LEU/UL (Negative); Nitrate Urine Positive (Negative); Protein Urine Negative (Negative); Specific Grav Ur <= 1.005 (1.010-1.020); Urobilinogen Urine 0.2 mg/dL (0.2-1.0); pH Urine 6.5 (5.0-8.0)
[2023-09-27 18:57] LABS: Add Urine Microscopic? YES; Bacteria Urine 2+ /hpf; Squamous Epithelial Cell Urine Rare /hpf (Few); WBC Urine 16-20 /hpf (0-3)
--- NOTE | 2023-09-27 19:09 | PC.NURSE ---
Report given to LIZET Rodriguez. Pt resting and VSS, POC discussed c pt for transfer. Results of CT discussed c pt.
[2023-09-27] MEDS: PIPERACILLN/TAZ 3.375GM/NS50ML 3.375 GM/50 ML BAG IVPB (19:29)
[2023-09-27] MEDS: HEPARIN SOD/D5W 100 UNITS/ML 25,000 UNITS/250 ML BAG 12 UNITS IV CONT (20:12)
[2023-09-27] MEDS: HEPARIN SODIUM 5,000 UNITS/ML VIAL 5500 UNITS IV PUSH (20:12)
[2023-09-27 20:13] LABS: Immature Reticulocyte Fraction 25.6 % (2.0-16.52); Reticulocyte Hemoglobin Conten 30.3 pg (28.0-35.0); Reticulocyte Percent 1.13 % (0.50-1.50); Reticulocytes Absolute 0.05 M/mm3 (0.02-0.10)
[2023-09-27 20:28] LABS: Lactate Dehydrogenase 208 U/L (81-234)
[2023-09-27 20:35] LABS: Lactic Acid Reflex 0.8 mmol/L (0.4-2.0)
[2023-09-27] MEDS: fentaNYL CITRATE INJ (*CRX) 100 MCG/2 ML VIAL 25 MCG IV PUSH (20:55)
[2023-09-27 20:57] LABS: D Dimer 4.82 mg/L (0.19-0.50)
[2023-09-27] MEDS: LACTATED RINGERS 1,000 ML 150 ML IV CONT (22:10)
--- NOTE | 2023-10-01 12:56 | PC.NURSE ---
URINE CULTURE FINAL REPORT POSITIVE FOR E COLI REPORT FAXED TO [facility] NURSE TO NURSE REPORT GIVEN TO PHILIP HINDS
[2023-10-02 13:24] LABS: Homocysteine 6.2 umol/L (<10.4)
[2023-10-03 21:39] LABS: PS/PT AB IgG <9 U (< OR = 30); PS/PT AB IgM 17 U (< OR = 30)
[2023-10-04 04:43] LABS: Antithrombin III Activity 92 % normal (80-135)
[2023-10-04 13:04] LABS: Anti Cardio Antibody IgM <2.0 MPL-U/mL; Anti Cardiolipin Antibody IgA <2.0 APL-U/mL; Anti Cardiolipin Antibody IgG <2.0 GPL-U/mL
[2023-10-05 14:43] LABS: Factor V (Leiden) Mutation POSITIVE
[2023-10-05 22:58] LABS: Block/Specimen ID NG; CALR Exon 9 Mutation NOT DETECTED (NOT DETECTED); CSF3R Exon 14/17 Mutation NOT DETECTED (NOT DETECTED); Clinical Indication NG; JAK2 Exon 12 Mutation NOT DETECTED (NOT DETECTED); JAK2 V617F Mutation NOT DETECTED (NOT DETECTED); MPL Exon 10 Mutation NOT DETECTED (NOT DETECTED); Specimen Source BLOOD
== END 2023-09-27 22:10 | disposition short-term general hospital (02) ==
PROVIDERS: Emergency Provider Internal Medicine Critical Care Medicine; PCP Internal Medicine
DX: I81 Portal vein thrombosis (principal); K55.9 Vascular disorder of intestine, unspecified; N30.00 Acute cystitis without hematuria; I10 Essential (primary) hypertension; E03.9 Hypothyroidism, unspecified; E21.3 Hyperparathyroidism, unspecified; Z98.84 Bariatric surgery status; Z90.49 Acquired absence of other specified parts of digestive tract; Z98.0 Intestinal bypass and anastomosis status
CPT/HCPCS: 36415; 74177; 80053; 81001; 81219; 81240; 81241; 81270; 81279; 81291; 81339; 81479; 83090; 83605; 83615; 83690; 83735; 83880; 84443; 84484; 85025; 85046; 85300; 85303; 85306; 85380; 85610; 85730; 86146; 86880; 87077; 87086; 87088; 87186; 93005; 96361; 96365; 96366; 96375; 96376; 99285; J1644; J2405; J2543; J3010; J7120; Q9967

== ENCOUNTER 2023-10-09 16:10 | Outpatient (CLI) | payer OTHER, SELFPAY ==
[2023-10-09 16:50] LABS: Albumin Level 2.8 g/dL (3.4-5.0); Anion Gap 8 mmol/L (4-12); Blood Urea Nitrogen 13 mg/dL (7-18); Calcium 7.7 mg/dL (8.5-10.1); Carbon Dioxide 28 mmol/L (21-32); Chloride 104 mmol/L (98-108); Estimated Glomerular Filt Rate 52; Glucose 89 mg/dL (70-99); Osmolality Calculated 289 mOsm/kg (285-295); Phosphorus 3.2 mg/dL (2.6-4.7); Potassium 4.7 mmol/L (3.5-5.1); Sodium 140 mmol/L (136-145)
== END 2023-10-09 16:11 | disposition home or self-care (01) ==
LOC: CHSLAB 16:12
PROVIDERS: PCP Internal Medicine; Visit Provider Internal Medicine Nephrology
DX: E87.22 Chronic metabolic acidosis (principal); N18.2 Chronic kidney disease, stage 2 (mild); E87.6 Hypokalemia
CPT/HCPCS: 36415; 80069

== ENCOUNTER 2023-10-22 03:39 | Emergency (ER) | payer OTHER, SELFPAY ==
[2023-10-22] VITALS (32 sets, daily range): BP systolic 83–119; BP diastolic 47–73; PULSE 58–73; RESP 10–25; TEMP 36.4–36.7; O2SAT 93–100
--- NOTE | ~2023-10-22 | XR_ITS ---
EXAMINATION: XR knee LT min 4V DATE: 10/22/2023 04:52 INDICATION: Left knee pain. Fall. TECHNIQUE: 4 views of left knee were obtained. COMPARISON: Left knee radiographs 12/24/2016 FINDINGS: Bone alignment is normal. No fracture. There is mild tricompartmental osteoarthritis. No kn ee joint effusion. IMPRESSION: 1. Mild left knee osteoarthritis. Reviewed, dictated and finalized at location A.
--- NOTE | ~2023-10-22 | XR_ITS ---
EXAMINATION: XR ribs LT 2V DATE: 10/22/2023 04:52 INDICATION: Left rib pain. TECHNIQUE: 2 views of the left ribs on 3 radiographs were obtained. COMPARISON: Chest 2 views 05/06/2021 FINDINGS: There is no left-sided pneumonia, pleural effusion, or pneumothorax. There are old healed f ractures of left third, fourth, and sixth ribs. IMPRESSION: 1. No acute rib fracture. Reviewed, dictated and finalized at location A. IMPRESSION: 1. No acute rib fracture.
--- NOTE | ~2023-10-22 | CT_ITS ---
EXAMINATION: CT abdomen pelvis w con DATE: 10/22/2023 06:59 INDICATION: Abdominal pain. Diarrhea. TECHNIQUE: Computed tomography (CT) of the abdomen and pelvis was performed with 100 mL Omnipaque 350 intravenous contrast. Automated exposure control and iterative reconstruction technique were employe d. The dose-length product was 727.08 mGy-cm. COMPARISON: CT abdomen and pelvis 09/27/2023 FINDINGS: The visualized portions of the lung bases demonstrate mild atelectasis. No pleural effusion . The heart size is normal. No pericardial effusion. The liver is normal. There is subacute thrombosi s of right and left portal veins, main portal vein, and adjacent portions of the splenic vein and sup erior mesenteric vein with cavernous transformation of main portal vein. There is gas in inferior mes enteric vein. There are surgical changes of the stomach. There are changes of cholecystectomy. The sp chago, pancreas, adrenal glands are normal. There is mild atrophy of the kidneys. There are cysts in t he kidneys measuring up to 13 mm on the right. There are approximately 10 stones in right kidney emigdio uring up to 4 mm. There are greater than 10 stones in left kidney measuring up to 6 mm. There is a ve ntral hernia containing nonobstructed small bowel. There are changes of right hemicolectomy. There ar e no pathologically enlarged lymph nodes. There is no free intraperitoneal fluid. There is edema of t he intra-abdominal fat. There is mild thoracic and lumbar spondylosis. There are chronic compression fractures of L1 and L2. IMPRESSION: 1. Ventral hernia containing nonobstructed small bowel. 2. 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 3. Gas in inferior mesenteric vein, which is nonspecific and can be clinically insignificant or can b e a sign of bowel ischemia/infarct. Reviewed, dictated and finalized at location A. IMPRESSION: 1. Ventral hernia containing nonobstructed small bowel. 2. 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 3. Gas in inferior mesenteric vein, which is nonspecific and can be clinically insignificant or can be a sign of bowel ischemia/infarct.
--- NOTE | ~2023-10-22 | CT_ITS ---
EXAMINATION: CT brain wo con DATE: 10/22/2023 04:53 INDICATION: Dizziness. TECHNIQUE: Computed tomography (CT) of the head was performed without intravenous contrast. The mA wa s adjusted according to patient size. Iterative reconstruction technique was employed. The dose-lengt h product was 605.33 mGy-cm. COMPARISON: None FINDINGS: There is no intracranial hemorrhage, acute infarction, or abnormal intracranial mass lesion . There is an empty sella. The ventricles are normal in size. The orbits are normal. There is mild mu cosal thickening in the paranasal sinuses. The mastoid air cells are normal. IMPRESSION: 1. No etiology for the patient's symptoms. Reviewed, dictated and finalized at location A.
--- NOTE | 2023-10-22 03:51 | PC.NURSE ---
ER provider notified that patient is in room one. Notified provider that blood pressure is low. Patient is alert x 4. Ambulatory to room with aid of cane. Slow to ambulate. When getting into room, patient reports that she was dizzy. Drove herself to the ED
--- NOTE | 2023-10-22 04:02 | ECG_ITS ---
SEE SCANNED COPY FOR CONFIRMED REPORT MTDD
--- NOTE | 2023-10-22 04:04 | PC.NURSE ---
cardiopulmonary notified that ekg was needed. patient talking with staff without difficulty
[2023-10-22] MEDS: SODIUM CHLORIDE 0.9% IV 1,000 ML 999 ML IV CONT (04:12)
--- NOTE | 2023-10-22 04:19 | PC.NURSE ---
blood pressure cuff moved to the left arm. encouraged patient to not move arm while bp pressure is being taken. iv fluids infusing to her right ac. xray at the bedside
--- NOTE | 2023-10-22 04:24 | PC.NURSE ---
lab notified that blood work was ordered
--- NOTE | 2023-10-22 04:42 | PC.NURSE ---
patient returned from radiology. lab at the bedside
[2023-10-22 05:04] LABS: Basophils Absolute Auto 0.03 K/mm3 (0.00-0.10); Basophils Percent Auto 0.4 % (0.0-1.0); Eosinophils Absolute Auto 0.21 K/mm3 (0.02-0.50); Eosinophils Percent Auto 2.9 % (1.0-6.0); Hematocrit 33.5 % (35.0-49.0); Hemoglobin 10.3 g/dL (12.0-15.0); Immature Granulocyte Absolute 0.04 K/mm3 (0.00-0.00); Immature Granulocyte Percent A 0.6 % (0.0-0.0); Lymphocytes Absolute Auto 0.95 K/mm3 (1.10-4.50); Lymphocytes Percent Auto 13.1 % (18.0-42.0); Mean Corpuscular HGB Conc 30.7 g/dL (32-36); Mean Corpuscular Hemoglobin 27.6 pg (27.0-31.0); Mean Corpuscular Volume 89.8 fL (78.0-102.0); Monocytes Absolute Auto 0.72 K/mm3 (0.10-0.90); Monocytes Percent Auto 9.9 % (2.0-11.0); Neutrophils Percent Auto 73.1 % (50.0-70.0); Platelet Count Result 198 K/mm3 (150-420); Red Blood Count 3.73 M/mm3 (4.20-5.40); Red Cell Distribution Width 17.2 % (11.6-14.4); White Blood Count 7.3 K/mm3 (4.8-10.8)
[2023-10-22 05:19] LABS: INR 1.8; Partial Thromboplastin Time 30.1 Sec (23.9-30.70); Prothrombin Time 19.3 Seconds (9.50-12.1)
--- NOTE | 2023-10-22 05:26 | PC.NURSE ---
warm blankets given
--- NOTE | 2023-10-22 06:25 | PC.NURSE ---
patient appears to be sleeping. resp even and unlabored. call light in is reach. pending lab work for ct
[2023-10-22 06:35] LABS: Lactic Acid Reflex 0.9 mmol/L (0.7-2.0)
[2023-10-22 06:37] LABS: Alanine Aminotransferase 58 U/L (6-35); Albumin Level 3.3 g/dL (3.5-5.1); Alkaline Phosphatase 119 U/L (38-126); Anion Gap 6 mmol/L (4-12); Aspartate Amino Transferase 71 U/L (14-36); Bilirubin,Total 0.5 mg/dL (0.2-1.3); Blood Urea Nitrogen 13 mg/dL (7-17); CRP < 0.5 mg/dL (<1.0); Calcium 7.9 mg/dL (8.4-10.2); Carbon Dioxide 23 mmol/L (22-30); Chloride 109 mmol/L (98-107); Estimated CRCL calculation 59 ml/min; Estimated Glomerular Filt Rate > 60; Glucose 100 mg/dL (65-110); Osmolality Calculated 286 mOsm/kg (285-295); Potassium 4.4 mmol/L (3.4-5.0); Sodium 138 mmol/L (137-145)
--- NOTE | 2023-10-22 06:43 | PC.NURSE ---
patient being transported to ct via stretcher
[2023-10-22 06:45] LABS: NT Pro B Type Natriuretic Pept 445 pg/mL (19.9-100); Troponin I < 0.012 ng/mL (0.000-0.034)
--- NOTE | 2023-10-22 06:45 | ED.FALL ---
HPI - Fall General Chief Complaint: Fall <Daniel Martinez MD - Last Filed: 10/22/23 06:51> Stated Complaint: fall, knee pain <Daniel Martinez MD - Last Filed: 10/22/23 06:51> Time Seen by Provider: 10/22/23 07:06 <Daniel Martinez MD - Last Filed: 10/22/23 06:51> Source: patient <Daniel Martinez MD - Last Filed: 10/22/23 06:51> Mode of arrival: ambulatory <Daniel Martinez MD - Last Filed: 10/22/23 06:51> Limitations: no limitations <Daniel Martinez MD - Last Filed: 10/22/23 06:51> History of Present Illness HPI Narrative: this 63-year-old female that presents after she had a dizzy spell and had fall and blood pressure initially 83/72. Patient was complaining of left knee pain and left rib and upper abdomen pain common with no chest pain no shortness of breath no fever chills. Dizziness started earlier in the day and had a fall. Patient with history of hypertension and hypothyroidism with an extensive abdominal surgical history status post right hemicolectomy with ileal colic anastomosis. Thrombosis of the portal veins and is currently on Eliquis and history of gastric bypass. Otherwise no nausea vomiting no dysuria no flank pain. <Daniel Martinez MD - Last Filed: 10/22/23 06:51> MD complaint: fall <Daniel Martinez MD - Last Filed: 10/22/23 06:51> Onset (ago): hour(s) <Daniel Martinez MD - Last Filed: 10/22/23 06:51> Fall from: standing <Daniel Martinez MD - Last Filed: 10/22/23 06:51> Fall witnessed: no <Daniel Martinez MD - Last Filed: 10/22/23 06:51> Prolonged down time: no <Daniel Martinez MD - Last Filed: 10/22/23 06:51> Symptoms prior to fall: dizziness <Daniel Martinez MD - Last Filed: 10/22/23 06:51> Context: tripped/slipped <Daniel Martinez MD - Last Filed: 10/22/23 06:51> Location of injury - extremities: Left: knee ( pain and tenderness) <Daniel Martinez MD - Last Filed: 10/22/23 06:51> Severity: mild <Daniel Martinez MD - Last Filed: 10/22/23 06:51> Related Data Home Medications: Home Medications Medication Instructions Recorded Confirmed amitriptyline 10 mg tablet 10 mg PO BID 10/24/19 10/22/23 calcitriol 0.5 mcg capsule See Rx Instructions .Route .COMPLEX 10/24/19 10/22/23 cetirizine 10 mg tablet (Allergy 10 mg PO DAILY 10/24/19 10/22/23 Relief (cetirizine)) fluoxetine 40 mg capsule 40 mg PO BID 10/24/19 10/22/23 levothyroxine 50 mcg tablet 50 mcg PO DAILY 10/24/19 10/22/23 metoprolol succinate 50 mg 50 mg PO DAILY 10/24/19 10/22/23 tablet,extended release 24 hr potassium chloride 20 mEq 20 meq PO BID 10/24/19 10/22/23 tablet,extended release(part/cryst) cyanocobalamin (vitamin B-12) 2,500 mcg PO DAILY 02/15/22 10/22/23 beta carotene 30 mg capsule 30 mg PO DAILY 02/25/22 10/22/23 sodium bicarbonate 650 mg tablet See Rx Instructions .Route .COMPLEX 07/15/22 10/22/23 calcium citrate 250 mg PO BID 09/27/23 10/22/23 ergocalciferol (vitamin D2) 1,250 1,250 mcg PO WEEKLY 09/27/23 10/22/23 mcg (50,000 unit) capsule (Vitamin D2) <Daniel Martinez MD - Last Filed: 10/22/23 06:51> Allergies/Adverse Reactions: Allergies Allergy/AdvReac Type Severity Reaction Status Date / Time ciprofloxacin [From Cipro] Allergy Other Verified 12/26/22 15:41 <Daniel Martinez MD - Last Filed: 10/22/23 06:51> Review of Systems Review of Systems: All systems reviewed & are unremarkable except as noted in HPI and below <Daniel Martinez MD - Last Filed: 10/22/23 06:51> PMFSH Past Medical History Medical History: Medical History Bradycardia HTN (hypertension) Hyperparathyroidism Hypothyroidism Renal tubular acidosis Trichotillomania <Daniel Martinez MD - Last Filed: 10/22/23 06:51> Surgical History Surgical History: Surgical History (Reviewed 10/22/23 @ 06:48 by Daniel
--- NOTE | 2023-10-22 06:55 | PC.NURSE ---
patient returned from ct
--- NOTE | 2023-10-22 07:01 | PC.NURSE ---
report given to valeria blanton
[2023-10-22] MEDS: ACETAMINOPHEN 325 MG TABLET 650 MG PO (07:35)
[2023-10-22 07:37] LABS: Appearance Urine Clear (Clear); Bilirubin Urine Negative (Negative); Color Urine Light Yellow (Yellow); Glucose Urine UA Negative (Negative); Ketones Urine Negative (Negative); Leukocyte Esterase Ur Negative LEU/UL (Negative); Nitrate Urine Negative (Negative); Protein Urine Negative (Negative); Urobilinogen Urine 0.2 mg/dL (0.2-1.0)
[2023-10-22 07:42] LABS: Add Urine Microscopic? YES; Blood Urine Trace-Lysed (Negative); RBC Urine 0-2 /hpf (0-2)
--- NOTE | 2023-10-28 13:14 | PC.NURSE ---
Final blood culture report: No growth after 5 days, no further action or treatment needed.
== END 2023-10-22 08:00 | disposition home or self-care (01) ==
PROVIDERS: Emergency Medicine; Emergency Provider Emergency Medicine; PCP Internal Medicine
DX: S20.212A Contusion of left front wall of thorax, initial encounter (principal); R10.12 Left upper quadrant pain; E86.0 Dehydration; M25.562 Pain in left knee; W19.XXXA Unspecified fall, initial encounter; I10 Essential (primary) hypertension; E03.9 Hypothyroidism, unspecified; Z90.49 Acquired absence of other specified parts of digestive tract; Z98.0 Intestinal bypass and anastomosis status; Z98.84 Bariatric surgery status; Z79.01 Long term (current) use of anticoagulants
CPT/HCPCS: 36415; 70450; 71100; 73564; 74177; 80053; 81001; 83605; 83735; 83880; 84484; 85025; 85610; 85730; 86140; 87040; 93005; 96360; 99284; A9270; J7030; Q9967

== ENCOUNTER 2023-10-31 11:15 | Outpatient (CLI) | payer OTHER, SELFPAY ==
[2023-10-31 11:43] LABS: Basophils Absolute Auto 0.07 K/mm3 (0.00-0.10); Eosinophils Absolute Auto 0.47 K/mm3 (0.02-0.50); Eosinophils Percent Auto 6.8 % (1.0-6.0); Hematocrit 36.5 % (35.0-49.0); Hemoglobin 11.4 g/dL (12.0-15.0); Immature Granulocyte Absolute 0.03 K/mm3 (0.00-0.00); Immature Granulocyte Percent A 0.4 % (0.0-0.0); Lymphocytes Absolute Auto 1.51 K/mm3 (1.10-4.50); Lymphocytes Percent Auto 21.7 % (18.0-42.0); Mean Corpuscular HGB Conc 31.2 g/dL (32-36); Mean Corpuscular Hemoglobin 27.3 pg (27.0-31.0); Mean Corpuscular Volume 87.3 fL (78.0-102.0); Mean Platelet Volume 9.8 fl (9.2-11.8); Monocytes Absolute Auto 0.74 K/mm3 (0.10-0.90); Monocytes Percent Auto 10.6 % (2.0-11.0); Neutrophils Absolute Auto 4.13 K/mm3 (1.70-7.20); Neutrophils Percent Auto 59.5 % (50.0-70.0); Platelet Count Result 259 K/mm3 (150-420); Red Blood Count 4.18 M/mm3 (4.20-5.40); Red Cell Distribution Width 16.8 % (11.6-14.4)
[2023-10-31 12:49] LABS: Alanine Aminotransferase 76 U/L (14-59); Albumin Level 2.6 g/dL (3.4-5.0); Alkaline Phosphatase 141 U/L (46-116); Anion Gap 9 mmol/L (4-12); Aspartate Amino Transferase 80 U/L (15-37); Bilirubin,Total 0.4 mg/dL (0.00-1.00); Blood Urea Nitrogen 6 mg/dL (7-18); Calcium 7.9 mg/dL (8.5-10.1); Carbon Dioxide 29 mmol/L (21-32); Chloride 105 mmol/L (98-108); Estimated Glomerular Filt Rate > 60; Glucose 91 mg/dL (70-99); Osmolality Calculated 293 mOsm/kg (285-295); Phosphorus 3.2 mg/dL (2.6-4.7); Potassium 4.7 mmol/L (3.5-5.1); Sodium 143 mmol/L (136-145); Thyroid Stimulating Hormone 4.31 uIU/mL (0.36-3.74); Total Protein 6.6 g/dL (6.4-8.2)
[2023-11-01 16:09] LABS: Parathyroid Intact 190 pg/mL (16-77)
== END 2023-10-31 11:16 | disposition home or self-care (01) ==
LOC: CHSLAB 11:19
PROVIDERS: PCP Nurse Practitioner Family; Visit Provider Internal Medicine Nephrology
DX: E86.0 Dehydration (principal); D64.9 Anemia, unspecified
CPT/HCPCS: 36415; 80053; 83970; 84100; 84443; 85025

== ENCOUNTER 2023-11-13 16:21 | Outpatient (CLI) | payer OTHER, SELFPAY ==
[2023-11-13 16:53] LABS: Hematocrit 35.9 % (35.0-49.0); Hemoglobin 11.3 g/dL (12.0-15.0); Immature Reticulocyte Fraction 27.5 % (2.0-16.52); Mean Corpuscular HGB Conc 31.5 g/dL (32-36); Mean Corpuscular Hemoglobin 27.6 pg (27.0-31.0); Mean Corpuscular Volume 87.6 fL (78.0-102.0); Mean Platelet Volume 10.2 fl (9.2-11.8); Platelet Count Result 220 K/mm3 (150-420); Red Cell Distribution Width 16.7 % (11.6-14.4); Reticulocyte Hemoglobin Conten 28.9 pg (28.0-35.0); Reticulocytes Absolute 0.05 M/mm3 (0.02-0.10)
[2023-11-13 17:10] LABS: INR 1.5; Prothrombin Time 15.5 Seconds (9.50-12.1)
[2023-11-13 17:24] LABS: Alanine Aminotransferase 45 U/L (14-59); Albumin Level 2.6 g/dL (3.4-5.0); Alkaline Phosphatase 125 U/L (46-116); Anion Gap 8 mmol/L (4-12); Aspartate Amino Transferase 51 U/L (15-37); Bilirubin,Total 0.4 mg/dL (0.00-1.00); Blood Urea Nitrogen 9 mg/dL (7-18); Calcium 7.6 mg/dL (8.5-10.1); Carbon Dioxide 27 mmol/L (21-32); Chloride 105 mmol/L (98-108); Estimated Glomerular Filt Rate 52; Ferritin 20 ng/mL (8-252); Glucose 89 mg/dL (70-99); Iron 35 ug/dL (50-170); Osmolality Calculated 287 mOsm/kg (285-295); Potassium 4.3 mmol/L (3.5-5.1); Sodium 140 mmol/L (136-145); Total Protein 6.5 g/dL (6.4-8.2)
== END 2023-11-13 16:22 | disposition home or self-care (01) ==
LOC: CHSLAB 16:23
PROVIDERS: PCP Internal Medicine; Visit Provider Internal Medicine
DX: K92.1 Melena (principal)
CPT/HCPCS: 36415; 80053; 82728; 83540; 85027; 85046; 85610; 85730

== ENCOUNTER 2023-11-16 19:07 | Emergency (ER) | payer OTHER, SELFPAY ==
[2023-11-16] VITALS (25 sets, daily range): BP systolic 103–127; BP diastolic 67–86; PULSE 63–73; RESP 12–32; TEMP 36.1; O2SAT 94–100
--- NOTE | 2023-11-16 19:25 | ECG_ITS ---
Test Date: 2023-11-16 19:39:05 Measurements Intervals Meherrin Rate: 71 P: 37 LA: 167 QRS: -34 QRSD: 106 T: -6 QT: 410 QTc: 446 Interpretive Statements SINUS RHYTHM LEFT AXIS DEVIATION [QRS AXIS < -30] BORDERLINE ECG No previous ECG available for comparison Electronically Signed On 11-17-2023 07:21:17 CDT by Daniel Yip M.D.
[2023-11-16 19:39] LABS: Hemoglobin 10.3 g/dL (12.0-15.0); Mean Corpuscular HGB Conc 31.2 g/dL (32-36); Mean Corpuscular Hemoglobin 27.2 pg (27.0-31.0); Mean Corpuscular Volume 87.1 fL (78.0-102.0); Mean Platelet Volume 9.7 fl (9.2-11.8); Platelet Count Result 210 K/mm3 (150-420); Red Blood Count 3.79 M/mm3 (4.20-5.40); Red Cell Distribution Width 16.5 % (11.6-14.4); White Blood Count 6.9 K/mm3 (4.8-10.8)
[2023-11-16 19:41] LABS: Occult Blood Positive (Negative)
[2023-11-16 19:53] LABS: Alanine Aminotransferase 56 U/L (14-59); Albumin Level 2.4 g/dL (3.4-5.0); Alkaline Phosphatase 111 U/L (46-116); Ammonia 55 umol/L (11-32); Anion Gap 9 mmol/L (4-12); Aspartate Amino Transferase 48 U/L (15-37); Bilirubin,Total 0.4 mg/dL (0.00-1.00); Blood Urea Nitrogen 13 mg/dL (7-18); Calcium 7.5 mg/dL (8.5-10.1); Carbon Dioxide 24 mmol/L (21-32); Chloride 108 mmol/L (98-108); Estimated CRCL calculation 48 ml/min; Estimated Glomerular Filt Rate 50; Glucose 104 mg/dL (70-99); INR 1.4; Lipase 48 U/L (16-77); Osmolality Calculated 292 mOsm/kg (285-295); Partial Thromboplastin Time 28.5 Sec (23.9-30.70); Potassium 4.6 mmol/L (3.5-5.1); Sodium 141 mmol/L (136-145); Total Protein 6.5 g/dL (6.4-8.2)
[2023-11-16 19:56] LABS: Lactic Acid Reflex 0.9 mmol/L (0.4-2.0)
--- NOTE | 2023-11-16 20:00 | ED.GIBLEED ---
HPI - GI Bleed General Chief complaint: GI Bleed Stated complaint: blood in stool Time Seen by Provider: 11/16/23 19:16 Source: patient Mode of arrival: ambulatory Limitations: no limitations History of Present Illness HPI Narrative: This is a 63-year-old female that presents with rectal bleed has been persistent over the last couple of days of bright red blood, patient denies abdominal pain no chest pain or shortness of breath no fever chills. Patient is diagnosed with portal vein thrombosis and has been on Eliquis. Patient denies nausea vomiting and no hematuria no dysuria no flank pain. MD complaint: gross hematochezia Onset (ago): day(s) Pain Consistency: constant Severity: moderate Related Data Home Medications Medication Instructions Recorded Confirmed amitriptyline 10 mg tablet 10 mg PO BID 10/24/19 11/16/23 calcitriol 0.5 mcg capsule See Rx Instructions .Route .COMPLEX 10/24/19 11/16/23 cetirizine 10 mg tablet (Allergy 10 mg PO DAILY 10/24/19 11/16/23 Relief (cetirizine)) fluoxetine 40 mg capsule 40 mg PO BID 10/24/19 11/16/23 levothyroxine 50 mcg tablet 50 mcg PO DAILY 10/24/19 11/16/23 metoprolol succinate 50 mg 50 mg PO DAILY 10/24/19 11/16/23 tablet,extended release 24 hr potassium chloride 20 mEq 20 meq PO BID 10/24/19 11/16/23 tablet,extended release(part/cryst) cyanocobalamin (vitamin B-12) 2,500 mcg PO DAILY 02/15/22 11/16/23 beta carotene 30 mg capsule 30 mg PO DAILY 02/25/22 11/16/23 sodium bicarbonate 650 mg tablet See Rx Instructions .Route .COMPLEX 07/15/22 11/16/23 calcium citrate 250 mg PO BID 09/27/23 11/16/23 ergocalciferol (vitamin D2) 1,250 1,250 mcg PO WEEKLY 09/27/23 11/16/23 mcg (50,000 unit) capsule (Vitamin D2) apixaban 5 mg tablet (Eliquis) 5 mg PO BID 11/16/23 11/16/23 Allergies Allergy/AdvReac Type Severity Reaction Status Date / Time ciprofloxacin [From Cipro] Allergy Other Verified 11/16/23 19:18 Review of Systems Review of Systems: All systems reviewed & are unremarkable except as noted in HPI and below PMFSH Past Medical History Medical History Bradycardia HTN (hypertension) Hyperparathyroidism Hypothyroidism Renal tubular acidosis Trichotillomania Surgical History Surgical History H/O gastric bypass 2002 in [place] - laparoscopic duodenal switch procedure H/O knee surgery H/O parathyroidectomy History of colon surgery 02/15/22 Open right hemicolectomy with ileocolic anastomosis History of colonoscopy with polypectomy May 2021 with benign polypectomy History of extraction of renal calculus History of laparoscopic appendectomy History of laparoscopic cholecystectomy cholecystectomy during her laparoscopic gastric surgery Family History Family History Father Asthma Hypertension Mother Breast cancer Sibling Diabetes mellitus Hypertension Grandparent Cancer Grandparent Diabetes mellitus Cancer Other No pertinent family history Social History Social History Smoking status: Never smoker Alcohol intake: never Substance use: current Substance use type: painkillers and prescription drug Lack of Transportation: No Lack of Food: Never True Current Housing: I Have Housing Concerned About Future Housing: No Difficulty Paying Gas/Electric Bills: No Difficulty Paying for Meds: YES Currently Unemployed: No Education: Bachelor's Degree Difficulty w/ Childcare or Family Care: No Occupation/Education: other Additional occupation/education comments: on disability Spiritual care concerns: No Exam Const: General: healthy appearing and no acute distress Nutritional Appearance: well nourished Orientation/consciousness: patient oriented x3 Limitations: no limitations Chest: Chest pa
[2023-11-16] MEDS: SODIUM CHLORIDE 0.9% IV 1,000 ML 999 ML IV CONT (20:05)
[2023-11-16 20:08] LABS: CRP < 0.5 mg/dL (0.0-0.9)
[2023-11-16 20:20] LABS: Band Neutrophils Percent 0 % (0-6); Basophils Absolute Manual 0.06 K/mm3 (0-0.1); Basophils Percent Manual 1 % (0-1); Eosinophils Absolute Manual 0.82 K/mm3 (0.02-0.50); Eosinophils Percent Manual 12 % (1-6); Lymphocytes Absolute Manual 1.58 K/mm3 (1.1-4.5); Lymphocytes Percent Manual 23 % (18-44); Monocytes Absolute Manual 0.62 K/mm3 (0.1-0.90); Monocytes Percent Manual 9 % (3-9); Neutrophils Absolute Manual 3.79 K/mm3 (1.7-7.2); Neutrophils Percent Manual 55 % (46-73); Total Cells Counted 100
[2023-11-16 20:21] LABS: Platelet Estimate Adequate (Adequate); Schistocytes None Seen
[2023-11-16] MEDS: PANTOPRAZOLE SODIUM IV 40 MG VIAL 80 MG IV PUSH (20:53)
== END 2023-11-16 22:24 | disposition short-term general hospital (02) ==
PROVIDERS: Emergency Provider Emergency Medicine; PCP Internal Medicine
DX: K92.2 Gastrointestinal hemorrhage, unspecified (principal); I10 Essential (primary) hypertension; E03.9 Hypothyroidism, unspecified; Z79.01 Long term (current) use of anticoagulants; Z79.899 Other long term (current) drug therapy
CPT/HCPCS: 36415; 80053; 82140; 82272; 83605; 83690; 83735; 85025; 85610; 85730; 86140; 86850; 86900; 86901; 93005; 96361; 96374; 99285; C9113; J7030

== ENCOUNTER 2023-11-22 09:41 | Outpatient (CLI) | payer OTHER, SELFPAY ==
--- NOTE | ~2023-11-22 | US_ITS ---
EXAMINATION: US venous doppler [facility] DATE: 11/22/2023 10:50 INDICATION: Left lower limb swelling. TECHNIQUE: Grayscale ultrasound images without and with compression and Doppler ultrasound images of the left lower extremity veins were obtained. COMPARISON: None. FINDINGS: The visualized portions of left common femoral vein, profunda (deep) femoral vein, femoral vein, popl iteal vein, peroneal veins, posterior tibial veins, and greater saphenous vein outflow are patent. IMPRESSION: 1. No deep venous thrombosis. Reviewed, dictated and finalized at location A.
[2023-11-22 09:57] LABS: Basophils Absolute Auto 0.05 K/mm3 (0.00-0.10); Eosinophils Absolute Auto 0.41 K/mm3 (0.02-0.50); Eosinophils Percent Auto 8.4 % (1.0-6.0); Hematocrit 31.6 % (35.0-49.0); Hemoglobin 10.1 g/dL (12.0-15.0); Immature Granulocyte Absolute 0.02 K/mm3 (0.00-0.00); Immature Granulocyte Percent A 0.4 % (0.0-0.0); Lymphocytes Absolute Auto 1.17 K/mm3 (1.10-4.50); Mean Corpuscular Hemoglobin 27.8 pg (27.0-31.0); Mean Corpuscular Volume 87.1 fL (78.0-102.0); Mean Platelet Volume 9.5 fl (9.2-11.8); Monocytes Absolute Auto 0.55 K/mm3 (0.10-0.90); Monocytes Percent Auto 11.3 % (2.0-11.0); Neutrophils Absolute Auto 2.68 K/mm3 (1.70-7.20); Neutrophils Percent Auto 54.9 % (50.0-70.0); Platelet Count Result 215 K/mm3 (150-420); Red Blood Count 3.63 M/mm3 (4.20-5.40); Red Cell Distribution Width 17.2 % (11.6-14.4); White Blood Count 4.9 K/mm3 (4.8-10.8)
[2023-11-22 10:29] LABS: Alanine Aminotransferase 55 U/L (14-59); Albumin Level 2.5 g/dL (3.4-5.0); Alkaline Phosphatase 89 U/L (46-116); Anion Gap 9 mmol/L (4-12); Aspartate Amino Transferase 63 U/L (15-37); Bilirubin,Total 0.4 mg/dL (0.00-1.00); Blood Urea Nitrogen 10 mg/dL (7-18); Calcium 7.3 mg/dL (8.5-10.1); Carbon Dioxide 22 mmol/L (21-32); Chloride 110 mmol/L (98-108); Estimated Glomerular Filt Rate > 60; Ferritin 18 ng/mL (8-252); Glucose 97 mg/dL (70-99); Iron 19 ug/dL (50-170); Osmolality Calculated 291 mOsm/kg (285-295); Potassium 4.2 mmol/L (3.5-5.1); Sodium 141 mmol/L (136-145); Total Protein 6.1 g/dL (6.4-8.2)
== END 2023-11-22 09:42 | disposition home or self-care (01) ==
PROVIDERS: PCP Internal Medicine; Visit Provider Internal Medicine
DX: D50.9 Iron deficiency anemia, unspecified (principal); I10 Essential (primary) hypertension; M79.89 Other specified soft tissue disorders
CPT/HCPCS: 36415; 80053; 82728; 83540; 85025; 93971

== ENCOUNTER 2023-12-04 14:39 | Outpatient (CLI) | payer OTHER, SELFPAY ==
[2023-12-04 15:04] LABS: Basophils Absolute Auto 0.02 K/mm3 (0.00-0.10); Basophils Percent Auto 0.4 % (0.0-1.0); Eosinophils Absolute Auto 0.23 K/mm3 (0.02-0.50); Eosinophils Percent Auto 4.9 % (1.0-6.0); Hematocrit 30.3 % (35.0-49.0); Hemoglobin 9.5 g/dL (12.0-15.0); Immature Granulocyte Absolute 0.01 K/mm3 (0.00-0.00); Immature Granulocyte Percent A 0.2 % (0.0-0.0); Lymphocytes Absolute Auto 0.86 K/mm3 (1.10-4.50); Lymphocytes Percent Auto 18.3 % (18.0-42.0); Mean Corpuscular HGB Conc 31.4 g/dL (32-36); Mean Corpuscular Hemoglobin 27.1 pg (27.0-31.0); Mean Corpuscular Volume 86.6 fL (78.0-102.0); Mean Platelet Volume 10.5 fl (9.2-11.8); Monocytes Absolute Auto 0.56 K/mm3 (0.10-0.90); Monocytes Percent Auto 11.9 % (2.0-11.0); Neutrophils Absolute Auto 3.01 K/mm3 (1.70-7.20); Neutrophils Percent Auto 64.3 % (50.0-70.0); Platelet Count Result 169 K/mm3 (150-420); Red Cell Distribution Width 16.7 % (11.6-14.4); White Blood Count 4.7 K/mm3 (4.8-10.8)
== END 2023-12-04 14:40 | disposition home or self-care (01) ==
LOC: CHSLAB 14:43
PROVIDERS: PCP Internal Medicine
DX: K92.2 Gastrointestinal hemorrhage, unspecified (principal)
CPT/HCPCS: 36415; 85025

== ENCOUNTER 2023-12-25 14:35 | Outpatient (CLI) | payer OTHER, SELFPAY ==
[2023-12-25 15:11] LABS: Hematocrit 30.5 % (35.0-49.0); Hemoglobin 9.8 g/dL (12.0-15.0); Mean Corpuscular HGB Conc 32.1 g/dL (32-36); Mean Platelet Volume 9.7 fl (9.2-11.8); Platelet Count Result 241 K/mm3 (150-420); Red Blood Count 3.63 M/mm3 (4.20-5.40); White Blood Count 5.8 K/mm3 (4.8-10.8)
[2023-12-25 15:27] LABS: Alanine Aminotransferase 53 U/L (14-59); Albumin Level 2.4 g/dL (3.4-5.0); Alkaline Phosphatase 180 U/L (46-116); Aspartate Amino Transferase 51 U/L (15-37); Bilirubin Direct 0.2 mg/dL (0-0.2); Bilirubin,Total 0.3 mg/dL (0.00-1.00); Iron 21 ug/dL (50-170); Percent Iron Saturation 7 % (12-57); Total Protein 6.5 g/dL (6.4-8.2)
[2023-12-26 06:58] LABS: Hepatitis B Surface Antigen NON-REACTIVE (NON-REACTIVE); Hepatitis C Virus Antibody NON-REACTIVE (NON-REACTIVE)
[2023-12-26 07:33] LABS: Hepatitis A Antibody IgM NON-REACTIVE (NON-REACTIVE); Hepatitis B Core Antibody NON-REACTIVE (NON-REACTIVE)
[2023-12-26 12:33] LABS: Immunoglobulin G 1353 mg/dL (600-1540)
[2024-01-02 12:58] LABS: Actin Antibody (IgG) <20 U (<20)
== END 2023-12-25 14:36 | disposition home or self-care (01) ==
LOC: CHSLAB 14:39
PROVIDERS: PCP Internal Medicine
DX: I81 Portal vein thrombosis (principal)
CPT/HCPCS: 36415; 80074; 80076; 82784; 83516; 83540; 83550; 85027; 86038; 86039

== ENCOUNTER 2024-01-04 11:12 | Outpatient (CLI) | payer OTHER, SELFPAY ==
[2024-01-04 11:34] LABS: Eosinophils Absolute Auto 0.06 K/mm3 (0.02-0.50); Eosinophils Percent Auto 0.7 % (1.0-6.0); Hematocrit 33.3 % (35.0-49.0); Hemoglobin 10.5 g/dL (12.0-15.0); Immature Granulocyte Absolute 0.02 K/mm3 (0.00-0.00); Immature Granulocyte Percent A 0.2 % (0.0-0.0); Lymphocytes Absolute Auto 0.94 K/mm3 (1.10-4.50); Lymphocytes Percent Auto 10.5 % (18.0-42.0); Mean Corpuscular HGB Conc 31.5 g/dL (32-36); Mean Corpuscular Hemoglobin 26.1 pg (27.0-31.0); Mean Corpuscular Volume 82.8 fL (78.0-102.0); Mean Platelet Volume 9.5 fl (9.2-11.8); Monocytes Absolute Auto 0.61 K/mm3 (0.10-0.90); Monocytes Percent Auto 6.8 % (2.0-11.0); Neutrophils Absolute Auto 7.29 K/mm3 (1.70-7.20); Neutrophils Percent Auto 81.8 % (50.0-70.0); Platelet Count Result 306 K/mm3 (150-420); Red Blood Count 4.02 M/mm3 (4.20-5.40); Red Cell Distribution Width 16.6 % (11.6-14.4); White Blood Count 8.9 K/mm3 (4.8-10.8)
[2024-01-04 12:33] LABS: Albumin Level 2.7 g/dL (3.4-5.0); Anion Gap 8 mmol/L (4-12); Blood Urea Nitrogen 15 mg/dL (7-18); Calcium 7.3 mg/dL (8.5-10.1); Carbon Dioxide 27 mmol/L (21-32); Chloride 106 mmol/L (98-108); Estimated Glomerular Filt Rate 59; Glucose 94 mg/dL (70-99); Osmolality Calculated 292 mOsm/kg (285-295); Phosphorus 4.2 mg/dL (2.6-4.7); Potassium 4.9 mmol/L (3.5-5.1); Sodium 141 mmol/L (136-145)
[2024-01-06 12:43] LABS: Parathyroid Intact 199 pg/mL (16-77)
== END 2024-01-04 11:13 | disposition home or self-care (01) ==
LOC: CHSLAB 11:17
PROVIDERS: PCP Internal Medicine; Visit Provider Internal Medicine Nephrology
DX: N18.2 Chronic kidney disease, stage 2 (mild) (principal); I12.9 Hypertensive chronic kidney disease with stage 1 through stage 4 chronic kidney disease, or unspecified chronic kidney disease; N25.81 Secondary hyperparathyroidism of renal origin; I81 Portal vein thrombosis
CPT/HCPCS: 36415; 80069; 83970; 85025

== ENCOUNTER 2024-01-10 11:14 | Outpatient (CLI) | payer OTHER, SELFPAY | END 2024-01-10 11:15 | disposition home or self-care (01) | LOC: CHSLAB 11:16 | PROVIDERS: PCP Internal Medicine; Visit Provider Internal Medicine Hematology | DX: I81 Portal vein thrombosis (principal) | CPT/HCPCS: 36415; 88184; 88185 ==

== ENCOUNTER 2024-01-24 10:52 | Outpatient (CLI) | payer OTHER, SELFPAY ==
[2024-01-24 11:17] LABS: Hematocrit 33.4 % (35.0-49.0); Hemoglobin 10.2 g/dL (12.0-15.0); Mean Corpuscular HGB Conc 30.5 g/dL (32-36); Mean Corpuscular Hemoglobin 25.4 pg (27.0-31.0); Mean Corpuscular Volume 83.3 fL (78.0-102.0); Mean Platelet Volume 9.6 fl (9.2-11.8); Platelet Count Result 177 K/mm3 (150-420); Red Blood Count 4.01 M/mm3 (4.20-5.40); Red Cell Distribution Width 18.3 % (11.6-14.4); White Blood Count 6.5 K/mm3 (4.8-10.8)
[2024-01-24 11:29] LABS: INR 1.2
[2024-01-24 12:32] LABS: Ferritin 17 ng/mL (8-252); Iron 31 ug/dL (50-170)
== END 2024-01-24 10:53 | disposition home or self-care (01) ==
LOC: CHSLAB 10:54
PROVIDERS: PCP Internal Medicine; Visit Provider Internal Medicine
DX: D50.0 Iron deficiency anemia secondary to blood loss (chronic) (principal); I81 Portal vein thrombosis
CPT/HCPCS: 36415; 82728; 83540; 85027; 85610; 85730

== ENCOUNTER 2024-01-30 09:58 | Outpatient (CLI) | payer OTHER, SELFPAY ==
[2024-01-30 10:10] VITALS: BMI 29.7
[2024-01-30 10:26] VITALS: BP 106/60; PULSE 72; RESP 14; TEMP 36.3; O2SAT 99
[2024-01-30] MEDS: IRON SUCROSE COMPLEX 200 MG, IRON SUCROSE COMPLEX 100 MG in SODIUM CHLORIDE 0.9% IV 250 ML 125 MG IVPB (10:30)
[2024-01-30 10:41] LABS: INR 3.9
--- NOTE | 2024-01-30 12:40 | PC.NURSE ---
Patient here for #1 of 3 Venofer infusions. Education given. NO concerns voiced. Infusion administered. SEE MAR. Tolerated well.
[2024-01-30 12:41] VITALS: BP 116/63; PULSE 72; RESP 14; O2SAT 99
== END 2024-01-30 09:59 | disposition home or self-care (01) ==
PROVIDERS: PCP Internal Medicine; Visit Provider Internal Medicine
DX: D50.0 Iron deficiency anemia secondary to blood loss (chronic) (principal)
CPT/HCPCS: 36415; 85610; 96365; 96366; J1756; J7050

== ENCOUNTER 2024-02-06 12:50 | Outpatient (RCR) | payer OTHER, SELFPAY ==
[2024-02-06 13:38] LABS: Prothrombin Time > 90.0 Seconds (9.64-11.0)
[2024-02-06 13:40] LABS: INR 31.1
== END 2024-05-06 23:59 | disposition home or self-care (01) ==
LOC: CHSLAB 12:50
PROVIDERS: PCP Internal Medicine; Visit Provider Internal Medicine
DX: I81 Portal vein thrombosis (principal); Z79.01 Long term (current) use of anticoagulants
CPT/HCPCS: 36415; 85610

== ENCOUNTER 2024-02-06 14:50 | Observation (INO) | payer OTHER, SELFPAY ==
--- NOTE | ~2024-02-06 | CT_ITS ---
EXAMINATION: CT brain wo con DATE: 02/06/2024 17:38 INDICATION: Anticoagulated. TECHNIQUE: Computed tomography (CT) of the head was performed without intravenous contrast. The mA wa s adjusted according to patient size. Iterative reconstruction technique was employed. The dose-lengt h product was 605.33 mGy-cm. COMPARISON: Head CT 10/22/2023 FINDINGS: There is no intracranial hemorrhage, acute infarction, or abnormal intracranial mass lesion . The ventricles are normal in size. There is mild mucosal thickening in the paranasal sinuses. The m astoid air cells are normal. The orbits are normal. IMPRESSION: 1. Normal brain. Reviewed, dictated and finalized at location A. IMPRESSION: 1. Normal brain.
[2024-02-06 14:50] VITALS: BP 125/75; PULSE 65; RESP 18; TEMP 36.6; O2SAT 100
--- NOTE | 2024-02-06 14:51 | ED.RECABL ---
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 She is not bleeding. 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 Patient had elevated INR last week without bleeding and the doctor decreased her Coumadin dose. They rechecked it today and it was still elevated so they sent her to the ER. Initial visit (ago): day(s) (5) Initial visit for: other ( Hepatic venous thrombosis and Coumadin use) Symptoms since prior visit: no new symptoms Context: called for abnormal lab result Associated symptoms: none Treatments prior to arrival: other medications ( Coumadin) Related Data Home Medications Medication Instructions Recorded Confirmed amitriptyline 10 mg tablet 10 mg PO BID 10/24/19 02/06/24 fluoxetine 40 mg capsule 40 mg PO BID 10/24/19 02/06/24 levothyroxine 50 mcg tablet 50 mcg PO DAILY 10/24/19 02/06/24 metoprolol succinate 50 mg 50 mg PO DAILY 10/24/19 02/06/24 tablet,extended release 24 hr potassium chloride 20 mEq 20 meq PO BID 10/24/19 02/06/24 tablet,extended release(part/cryst) cyanocobalamin (vitamin B-12) 2,500 mcg PO DAILY 02/15/22 02/06/24 beta carotene 30 mg capsule 30 mg PO DAILY 02/25/22 02/06/24 sodium bicarbonate 650 mg tablet See Rx Instructions .Route .COMPLEX 07/15/22 02/06/24 calcium citrate 250 mg PO BID 09/27/23 02/06/24 ergocalciferol (vitamin D2) 1,250 1,250 mcg PO WEEKLY 09/27/23 02/06/24 mcg (50,000 unit) capsule (Vitamin D2) calcitriol 0.5 mcg capsule See Rx Instructions .Route .COMPLEX 12/25/23 02/06/24 calcium carbonate (Tums) 200 mg PO BID 12/25/23 02/06/24 pantoprazole 40 mg tablet,delayed 40 mg PO DAILY 12/25/23 02/06/24 release ferrous sulfate 325 mg (65 mg 325 mg PO TID 02/06/24 02/06/24 iron) tablet (FeroSul) warfarin 4 mg tablet 4.5 mg PO DAILY 02/06/24 02/06/24 Allergies Allergy/AdvReac Type Severity Reaction Status Date / Time ciprofloxacin [From Cipro] Allergy Other Verified 02/06/24 14:57 Review of Systems Review of Systems: All systems reviewed & are unremarkable except as noted in HPI and below Constitutional: Constitutional: Reports no additional constitutional complaints Eyes: Eyes: Reports no additional eye complaints ENT: Reports system reviewed and no additional complaints, except as documented Cardiovascular: Cardiovascular: Reports no additional cardiovascular complaints Respiratory: Respiratory: Reports no additional respiratory complaints Gastrointestinal: Gastrointestinal: Reports no additional gastrointestinal complaints Genitourinary: Genitourinary: Reports no additional female genitourinary complaints Musculoskeletal: Musculoskeletal: Reports no additional musculoskeletal complaints Integumentary/Breasts: Skin/Breast: Reports system reviewed and no additional complaints, except as docu Neurologic: Reports system reviewed and no additional complaints, except as documented Psychiatric: Psychiatric: Reports no additional psychiatric complaints Endocrine: Endocrine: Reports no additional endocrine complaints Hematologic/Lymphatic: Hematologic/Lymphatic: Reports no additional hematologic/lymphatic complaints Allergic/Immunologic: Allergic/Immunologic: Reports no additional allergic/immunologic complaints [facility] Past Medical History Medical History Bradycardia HTN (hypertension) Hyperparathyroidism Hypothyroidism Renal tubular acidosis Trichotillomania Surgical History Surgical History H/O gastric bypass 2002 in [place] - laparoscopic duodenal switch procedure H/O knee surgery H/O parathyroidectomy History of colon surgery 02/15/22 [facility]
[2024-02-06 15:20] LABS: Basophils Absolute Auto 0.02 K/mm3 (0.00-0.10); Basophils Percent Auto 0.5 % (0.0-1.0); Eosinophils Absolute Auto 0.06 K/mm3 (0.02-0.50); Eosinophils Percent Auto 1.4 % (1.0-6.0); Hematocrit 33.5 % (35.0-49.0); Hemoglobin 10.4 g/dL (12.0-15.0); Immature Granulocyte Absolute 0.02 K/mm3 (0.00-0.00); Immature Granulocyte Percent A 0.5 % (0.0-0.0); Lymphocytes Absolute Auto 0.86 K/mm3 (1.10-4.50); Lymphocytes Percent Auto 19.5 % (18.0-42.0); Mean Corpuscular Hemoglobin 25.8 pg (27.0-31.0); Mean Corpuscular Volume 83.1 fL (78.0-102.0); Mean Platelet Volume 9.5 fl (9.2-11.8); Monocytes Absolute Auto 0.41 K/mm3 (0.10-0.90); Monocytes Percent Auto 9.3 % (2.0-11.0); Neutrophils Absolute Auto 3.05 K/mm3 (1.70-7.20); Neutrophils Percent Auto 68.8 % (50.0-70.0); Platelet Count Result 160 K/mm3 (150-420); Red Blood Count 4.03 M/mm3 (4.20-5.40); Red Cell Distribution Width 20.3 % (11.6-14.4); White Blood Count 4.4 K/mm3 (4.8-10.8)
--- NOTE | 2024-02-06 15:36 | PC.NURSE ---
PT IS LYING ON STRETCHER TEXTING ON CELL PHONE AT THIS TIME. NAD NOTED. PT IS AWAITING RESULTS. WILL CONTINUE TO MONITOR.
[2024-02-06 15:40] LABS: Partial Thromboplastin Time 56.5 SEC (22.3-31.6)
[2024-02-06 15:44] LABS: Alanine Aminotransferase 75 U/L (14-59); Albumin Level 2.7 g/dL (3.4-5.0); Alkaline Phosphatase 124 U/L (46-116); Anion Gap 8 mmol/L (4-12); Aspartate Amino Transferase 47 U/L (15-37); Bilirubin,Total 0.3 mg/dL (0.00-1.00); Blood Urea Nitrogen 12 mg/dL (7-18); Calcium 8.2 mg/dL (8.5-10.1); Carbon Dioxide 25 mmol/L (21-32); Chloride 106 mmol/L (98-108); Estimated CRCL calculation 52 ml/min; Estimated Glomerular Filt Rate 59; Glucose 88 mg/dL (70-99); INR 31.1; Osmolality Calculated 286 mOsm/kg (285-295); Potassium 3.9 mmol/L (3.5-5.1); Prothrombin Time > 90.0 Seconds (9.64-11.0); Sodium 139 mmol/L (136-145); Total Protein 6.6 g/dL (6.4-8.2)
[2024-02-06] MEDS: PHYTONADIONE 5 MG TABLET 10 MG PO (16:02)
--- NOTE | 2024-02-06 16:49 | PC.NURSE ---
PT IS AWAITING HEAD CT AT THIS TIME. SHE IS AWARE OF PLAN OF CARE. DENIES ANY NEEDS OR COMPLAINTS. WILL CONTINUE TO MONITOR.
[2024-02-06 16:50] VITALS: BP 130/70; PULSE 60; RESP 18; TEMP 36.2; O2SAT 98
[2024-02-06 17:45] VITALS: BP 134/68; PULSE 66; RESP 18; O2SAT 98
--- NOTE | 2024-02-06 18:00 | PC.NURSE ---
PT HAS CHANGED INTO A GOWN, BELONGINGS LIST COMPLETED. PT IS WORKING A CROSSWORD PUZZLE AT THIS TIME. PT DENIES ANY NEEDS OR COMPLAINTS, HAS BEEN CLEARED FOR ADMISSION TO ROOM 203.
[2024-02-06 18:08] VITALS: BP 122/70; PULSE 88; RESP 18; TEMP 36.6; O2SAT 98
--- NOTE | 2024-02-06 18:30 | ADMGEN ---
This patient, Louise Moore, was admitted to 2nd Floor Room 203-1. Patient/family oriented to hospital policies and general routines including ID bracelet, bed and alarms, visiting hours, pain management, procedures, bathroom and other care routines, personal items, smoking policy, room service/diet, and visiting hours. Information on how to activate the Rapid Response Team has been discussed. Patient/Family are encouraged to report perceived risks to care and to ask questions if they do not understand what they are told or what they should do.
[2024-02-06 18:32] VITALS: BP 134/84; PULSE 57; RESP 18; TEMP 36.1; O2SAT 96
[2024-02-06 18:36] VITALS: BMI 28.4
[2024-02-06] MEDS: FLUoxetine HCL 20 MG CAPSULE 40 MG PO (21:08)
[2024-02-06] MEDS: AMITRIPTYLINE HCL 10 MG TABLET PO (21:09)
[2024-02-06] MEDS: SODIUM BICARBONATE TAB 650 MG TABLET 2600 MG PO (21:09)
[2024-02-06 22:40] LABS: Prothrombin Time > 90.0 Seconds (9.64-11.0)
[2024-02-06 22:41] LABS: INR 28.4
--- NOTE | 2024-02-06 22:45 | PC.NURSE ---
Message left for Greg Mcneal, MOSAICIST/Hospitalist, letting her know current Protime is >90 and INR is 28.4. Waiting for call back and new orders.
--- NOTE | 2024-02-06 23:10 | PC.NURSE ---
Attempted to contact Greg Mcneal NP to report critical PT/INR results. No answer, so a message was left on her voice mail.
--- NOTE | 2024-02-06 23:25 | PC.NURSE ---
New orders received and noted for medication and labs.
[2024-02-06 23:44] VITALS: BP 129/74; PULSE 60; RESP 18; TEMP 36.1; O2SAT 100
[2024-02-07] MEDS: PHYTONADIONE 5 MG TABLET 10 MG PO ×2 (03:45→10:27)
[2024-02-07] MEDS: SODIUM BICARBONATE TAB 650 MG TABLET 2600 MG PO (05:42)
[2024-02-07] MEDS: LEVOTHYROXINE SODIUM 50 MCG TABLET PO (05:42)
[2024-02-07 08:00] VITALS: BP 120/70; PULSE 60; RESP 18; TEMP 35.8; O2SAT 97
[2024-02-07 08:56] VITALS: PULSE 60
[2024-02-07] MEDS: FERROUS SULFATE 325 MG TABLET DR BY MOUTH (08:56)
[2024-02-07] MEDS: CYANOCOBALAMIN 1,000 MCG TABLET 2000 MCG PO (08:56)
[2024-02-07] MEDS: CALCIUM CARBONATE (TUMS) 500 MG (200 MG ELEMENTAL) PO (08:56)
[2024-02-07] MEDS: FLUoxetine HCL 20 MG CAPSULE 40 MG PO (08:56)
[2024-02-07] MEDS: CALCIUM CITRATE 200 MG TABLET BY MOUTH (08:56)
[2024-02-07] MEDS: POTASSIUM CHLORIDE 20 MEQ ER TABLET PO (08:56)
[2024-02-07] MEDS: METOPROLOL SUCCINATE EXT REL 50 MG TABCR PO (08:56)
[2024-02-07] MEDS: AMITRIPTYLINE HCL 10 MG TABLET PO (08:57)
[2024-02-07] MEDS: CHOLECALCIFEROL 5,000 UNITS TABLET 5000 UNITS PO (08:57)
[2024-02-07] MEDS: PANTOPRAZOLE 40 MG TABLET PO (08:57)
--- NOTE | 2024-02-07 09:04 | PM.SD2 ---
Same Day Admit/Disch: HPI History of Present Illness Chief complaint: Supratheraputic INR Narrative: Louise Moore is a 63 year old female with a significant past medical history of hypertension, hyperparathyroidism status post parathyroidectomy, trichotillomania, portal vein thrombus, status post cholecystectomy, appendectomy, gastric bypass who presents with abnormal labs. Patient has been under the care of a scientific illustrator for a hepatic venous thrombosis and has been treated with Coumadin however she was noted to have an elevated INR last week without bleeding and the doctor decreased her Coumadin dose at that time. She had a recheck of her labs yesterday which showed that it was still elevated. She was sent to the ER for further workup. Workup in the hospital included a head CT which was negative. Initial labs showed a white blood cell count of 4.4, RBC 4.03, hemoglobin 10.4, PTT greater than 90, INR 31.1, PTT 56.5, AST 47, ALT 75, alk-phos 124. She was given 2 oral doses of vitamin K overnight. [facility] Past Medical History Medical History Bradycardia HTN (hypertension) Hyperparathyroidism Hypothyroidism Renal tubular acidosis Trichotillomania Surgical History Surgical History H/O gastric bypass 2002 in [place] - laparoscopic duodenal switch procedure H/O knee surgery H/O parathyroidectomy History of colon surgery 02/15/22 Open right hemicolectomy with ileocolic anastomosis History of colonoscopy with polypectomy May 2021 with benign polypectomy History of extraction of renal calculus History of laparoscopic appendectomy History of laparoscopic cholecystectomy cholecystectomy during her laparoscopic gastric surgery Family History Family History Father Asthma Hypertension Mother Breast cancer Sibling Diabetes mellitus Hypertension Grandparent Cancer Grandparent Diabetes mellitus Cancer Other No pertinent family history Social History Social History Smoking status: Never smoker Alcohol intake: never Substance use: never Substance use type: does not use Other substance usage details: none Do You Feel Safe in your Home?: Yes Lack of Transportation: No Lack of Food: Never True Current Housing: I Have Housing Concerned About Future Housing: No Difficulty Paying Gas/Electric Bills: No Difficulty Paying for Meds: No Currently Unemployed: No Education: Decline to Answer Difficulty w/ Childcare or Family Care: No Occupation/Education: other Additional occupation/education comments: on disability Spiritual care concerns: No Same Day Admit/Disch: Med Pre-admit Medications Home Medications Medication Instructions Recorded Confirmed Type amitriptyline 10 mg tablet 10 mg PO BID 10/24/19 02/06/24 History fluoxetine 40 mg capsule 40 mg PO BID 10/24/19 02/06/24 History levothyroxine 50 mcg tablet 50 mcg PO DAILY 10/24/19 02/06/24 History metoprolol succinate 50 mg 50 mg PO DAILY 10/24/19 02/06/24 History tablet,extended release 24 hr potassium chloride 20 mEq 20 meq PO BID 10/24/19 02/06/24 History tablet,extended release(part/cryst) cyanocobalamin (vitamin B-12) 2,500 mcg PO DAILY 02/15/22 02/06/24 History beta carotene 30 mg capsule 30 mg PO DAILY 02/25/22 02/06/24 History sodium bicarbonate 650 mg tablet See Rx Instructions .Route .COMPLEX 07/15/22 02/06/24 History calcium citrate 250 mg PO BID 09/27/23 02/06/24 History ergocalciferol (vitamin D2) 1,250 1,250 mcg PO WEEKLY 09/27/23 02/06/24 History mcg (50,000 unit) capsule (Vitamin D2) calcitriol 0.5 mcg capsule See Rx Instructions .Route .COMPLEX 12/25/23 02/06/24 History calcium carbonate (Tums) 200 mg PO BID 12/25/23 02/06/24 History pantoprazole 40 mg tablet,delayed 40 mg
[2024-02-07 09:07] LABS: Hemoglobin 10.7 g/dL (12.0-15.0); Mean Corpuscular HGB Conc 30.6 g/dL (32-36); Mean Corpuscular Hemoglobin 25.5 pg (27.0-31.0); Mean Corpuscular Volume 83.3 fL (78.0-102.0); Mean Platelet Volume 9.7 fl (9.2-11.8); Platelet Count Result 177 K/mm3 (150-420); Red Cell Distribution Width 20.3 % (11.6-14.4); White Blood Count 4.2 K/mm3 (4.8-10.8)
[2024-02-07 09:34] LABS: Prothrombin Time 63.1 Seconds (9.50-12.1)
[2024-02-07 09:36] LABS: INR 6.6
[2024-02-07 10:57] LABS: Alanine Aminotransferase 76 U/L (6-35); Albumin Level 3.4 g/dL (3.5-5.1); Alkaline Phosphatase 107 U/L (38-126); Anion Gap 8 mmol/L (4-12); Aspartate Amino Transferase 74 U/L (14-36); Bilirubin,Total 0.6 mg/dL (0.2-1.3); Blood Urea Nitrogen 13 mg/dL (7-17); Carbon Dioxide 25 mmol/L (22-30); Chloride 105 mmol/L (98-107); Estimated CRCL calculation 57 ml/min; Estimated Glomerular Filt Rate > 60; Glucose 109 mg/dL (65-110); Osmolality Calculated 287 mOsm/kg (285-295); Potassium 3.7 mmol/L (3.4-5.0); Sodium 138 mmol/L (137-145)
--- NOTE | 2024-02-07 11:30 | PC.NURSE ---
Discharge instructions reviewed with patient. All questions answered. Pt ambulated self out for discharge.
--- NOTE | 2024-02-15 09:01 | PC.NURSE ---
discharge call back complete, doing well, sees dr robles oct 2, he had her switch back to eliquis at this time and dc warfarin, no questions about care or dc instructions
== END 2024-02-07 11:30 | disposition home or self-care (01) ==
LOC: CHSED 16:41 → CHS2ND 18:02
PROVIDERS: Nurse Practitioner Family; Admitting Provider Internal Medicine; Emergency Provider Emergency Medicine; PCP Internal Medicine; Visit Provider Internal Medicine
DX: R79.1 Abnormal coagulation profile (principal); I10 Essential (primary) hypertension; E03.9 Hypothyroidism, unspecified; F63.3 Trichotillomania; Z98.84 Bariatric surgery status; Z90.49 Acquired absence of other specified parts of digestive tract; Z98.0 Intestinal bypass and anastomosis status; Z79.01 Long term (current) use of anticoagulants
CPT/HCPCS: 36415; 70450; 80053; 85025; 85027; 85610; 85730; 99285; A9270; G0378

== ENCOUNTER 2024-02-08 12:23 | Outpatient (CLI) | payer OTHER, SELFPAY ==
[2024-02-08 12:55] LABS: INR 2.2
== END 2024-02-08 12:24 | disposition home or self-care (01) ==
LOC: CHSLAB 12:24
PROVIDERS: PCP Internal Medicine; Visit Provider Nurse Practitioner Acute Care
DX: R79.1 Abnormal coagulation profile (principal); I81 Portal vein thrombosis
CPT/HCPCS: 36415; 85610

== ENCOUNTER 2024-02-13 09:57 | Outpatient (CLI) | payer OTHER, SELFPAY ==
[2024-02-13 13:19] LABS: INR 1.4; Prothrombin Time 15.2 Seconds (9.50-12.1)
== END 2024-02-13 09:58 | disposition home or self-care (01) ==
LOC: CHSTREATRM 11:31
PROVIDERS: PCP Internal Medicine; Visit Provider Internal Medicine
DX: D50.0 Iron deficiency anemia secondary to blood loss (chronic) (principal); I81 Portal vein thrombosis; Z79.01 Long term (current) use of anticoagulants
CPT/HCPCS: 36415; 85610; J1756; J7050

== ENCOUNTER 2024-02-24 13:22 | Emergency (ER) | payer OTHER, SELFPAY ==
[2024-02-24 13:26] VITALS: BP 107/73; PULSE 60; RESP 16; TEMP 36.2; O2SAT 97
--- NOTE | 2024-02-24 13:46 | ED.FALL ---
HPI - Fall General Chief Complaint: Fall Stated Complaint: fall injury History of Present Illness HPI Narrative: Patient reports that she suffered a mechanical fall from standing while walking out of her house. She is unsure the exact details but believe she tripped on some combination of the door threshold and or her storm door. She fell forward out of the door and knocked over her garden gnome. She fell forward onto her hands to break her fall. She presents to the emergency department today with complaint of several minor musculoskeletal injuries including an, right rib tenderness, abrasion on her right elbow a little bit of soreness in both of her hands, and a small abrasion on her right knee. Patient feels certain this is a mechanical fall and was not a syncopal event. She denies any LOC in the event. She did knock her hearing aid out of but she does not feel that she hit her head on anything per se more that she rubbed it against something on the ground once she had fallen. Remainder of ROS was negative for fever, chills, nausea, vomiting, headache, vision changes, chest pain, sob, abdominal pain, or changes in diet, bladder, or bowel habits. Related Data Home Medications Medication Instructions Recorded Confirmed amitriptyline 10 mg tablet 10 mg PO BID 10/24/19 02/06/24 fluoxetine 40 mg capsule 40 mg PO BID 10/24/19 02/06/24 levothyroxine 50 mcg tablet 50 mcg PO DAILY 10/24/19 02/06/24 metoprolol succinate 50 mg 50 mg PO DAILY 10/24/19 02/06/24 tablet,extended release 24 hr potassium chloride 20 mEq 20 meq PO BID 10/24/19 02/06/24 tablet,extended release(part/cryst) cyanocobalamin (vitamin B-12) 2,500 mcg PO DAILY 02/15/22 02/06/24 beta carotene 30 mg capsule 30 mg PO DAILY 02/25/22 02/06/24 sodium bicarbonate 650 mg tablet See Rx Instructions .Route .COMPLEX 07/15/22 02/06/24 calcium citrate 250 mg PO BID 09/27/23 02/06/24 ergocalciferol (vitamin D2) 1,250 1,250 mcg PO WEEKLY 09/27/23 02/06/24 mcg (50,000 unit) capsule (Vitamin D2) calcitriol 0.5 mcg capsule See Rx Instructions .Route .COMPLEX 12/25/23 02/06/24 calcium carbonate (Tums) 200 mg PO BID 12/25/23 02/06/24 pantoprazole 40 mg tablet,delayed 40 mg PO DAILY 12/25/23 02/06/24 release ferrous sulfate 325 mg (65 mg 325 mg PO TID 02/06/24 02/06/24 iron) tablet (FeroSul) warfarin 4 mg tablet 4.5 mg PO DAILY 02/06/24 02/06/24 Allergies Allergy/AdvReac Type Severity Reaction Status Date / Time ciprofloxacin [From Cipro] Allergy Other Verified 02/06/24 14:57 [facility] Past Medical History Medical History Bradycardia HTN (hypertension) Hyperparathyroidism Hypothyroidism Renal tubular acidosis Trichotillomania Surgical History Surgical History H/O gastric bypass 2002 in [place] - laparoscopic duodenal switch procedure H/O knee surgery H/O parathyroidectomy History of colon surgery 02/15/22 Open right hemicolectomy with ileocolic anastomosis History of colonoscopy with polypectomy May 2021 with benign polypectomy History of extraction of renal calculus History of laparoscopic appendectomy History of laparoscopic cholecystectomy cholecystectomy during her laparoscopic gastric surgery Family History Family History Father Asthma Hypertension Mother Breast cancer Sibling Diabetes mellitus Hypertension Grandparent Cancer Grandparent Diabetes mellitus Cancer Other No pertinent family history Social History Social History Smoking status: Never smoker Alcohol intake: never Substance use: never Substance use type: does not use Other substance usage details: none Do You Feel Safe in your Home?: Yes Lack of Transportation: No Lack of Food: Never True Current Housing: I Have Housing C
== END 2024-02-24 14:07 | disposition home or self-care (01) ==
PROVIDERS: Emergency Provider Family Medicine; PCP Internal Medicine
DX: S50.311A Abrasion of right elbow, initial encounter (principal); S80.211A Abrasion, right knee, initial encounter; I10 Essential (primary) hypertension; E03.9 Hypothyroidism, unspecified; W01.0XXA Fall on same level from slipping, tripping and stumbling without subsequent striking against object, initial encounter; Y92.008 Other place in unspecified non-institutional (private) residence as the place of occurrence of the external cause
CPT/HCPCS: 99282

== ENCOUNTER 2024-02-27 10:05 | Outpatient (CLI) | payer OTHER, SELFPAY ==
[2024-02-27 10:50] VITALS: BP 102/64; PULSE 60; RESP 18; TEMP 35.7; O2SAT 99
[2024-02-27] MEDS: IRON SUCROSE COMPLEX 300 MG in SODIUM CHLORIDE 0.9% IV 250 ML 125 MG IVPB (11:00)
[2024-02-27 12:33] VITALS: BMI 29.8
[2024-02-27 12:33] LABS: Anion Gap 5 mmol/L (4-12); Blood Urea Nitrogen 9 mg/dL (7-18); Calcium 8.3 mg/dL (8.5-10.1); Carbon Dioxide 29 mmol/L (21-32); Chloride 107 mmol/L (98-108); Estimated Glomerular Filt Rate 56; Glucose 90 mg/dL (70-99); Osmolality Calculated 290 mOsm/kg (285-295); Phosphorus 3.6 mg/dL (2.6-4.7); Potassium 4.1 mmol/L (3.5-5.1); Sodium 141 mmol/L (136-145)
[2024-03-01 15:29] LABS: Parathyroid Intact 138 pg/mL (16-77)
== END 2024-02-27 13:30 | disposition home or self-care (01) ==
PROVIDERS: PCP Internal Medicine
DX: D50.0 Iron deficiency anemia secondary to blood loss (chronic) (principal); E21.1 Secondary hyperparathyroidism, not elsewhere classified; K91.2 Postsurgical malabsorption, not elsewhere classified; Z79.899 Other long term (current) drug therapy
CPT/HCPCS: 36415; 80048; 83970; 84100; 96365; 96366; 96367; J1756; J7050

== ENCOUNTER 2024-03-05 16:14 | Outpatient (CLI) | payer OTHER, SELFPAY ==
[2024-03-05 16:49] LABS: Hematocrit 36.1 % (35.0-49.0); Hemoglobin 11.3 g/dL (12.0-15.0); Mean Corpuscular HGB Conc 31.3 g/dL (32-36); Mean Corpuscular Hemoglobin 27.4 pg (27.0-31.0); Mean Corpuscular Volume 87.4 fL (78.0-102.0); Mean Platelet Volume 10.9 fl (9.2-11.8); Platelet Count Result 174 K/mm3 (150-420); Red Blood Count 4.13 M/mm3 (4.20-5.40); Red Cell Distribution Width 23.2 % (11.6-14.4)
[2024-03-05 17:39] LABS: Add Urine Microscopic? YES; Appearance Urine Clear (Clear); Bilirubin Urine Negative (Negative); Blood Urine 1+ (Negative); Color Urine Light Yellow (Yellow); Glucose Urine UA Negative (Negative); Ketones Urine Negative (Negative); Leukocyte Esterase Ur Trace LEU/UL (Negative); Nitrate Urine Negative (Negative); Protein Urine Negative (Negative); Specific Grav Ur 1.015 (1.010-1.020); Urobilinogen Urine 0.2 mg/dL (0.2-1.0)
[2024-03-05 17:44] LABS: Bacteria Urine Trace /hpf; RBC Urine 0-2 /hpf (0-2); Squamous Epithelial Cell Urine Rare /hpf (Few); WBC Urine 0-3 /hpf (0-3)
[2024-03-05 17:45] LABS: Alanine Aminotransferase 71 U/L (14-59); Albumin Level 2.8 g/dL (3.4-5.0); Alkaline Phosphatase 110 U/L (46-116); Anion Gap 9 mmol/L (4-12); Aspartate Amino Transferase 43 U/L (15-37); Bilirubin,Total 0.3 mg/dL (0.00-1.00); Blood Urea Nitrogen 13 mg/dL (7-18); Calcium 8.4 mg/dL (8.5-10.1); Carbon Dioxide 23 mmol/L (21-32); Chloride 109 mmol/L (98-108); Cholesterol 129 mg/dL (0-200); Estimated Glomerular Filt Rate 46; Ferritin 360 ng/mL (8-252); Free T3 2.07 pg/mL (2.18-3.98); Free T4 Free Thyroxine 0.88 ng/dL (0.76-1.46); Glucose 87 mg/dL (70-99); HDL Direct 49 mg/dL (40-60); Iron 90 ug/dL (50-170); LDL Cholesterol Calculated 66 mg/dL (<130); Osmolality Calculated 291 mOsm/kg (285-295); Potassium 4.8 mmol/L (3.5-5.1); Sodium 141 mmol/L (136-145); Thyroid Stimulating Hormone 8.22 uIU/mL (0.36-3.74); Total Protein 6.4 g/dL (6.4-8.2); Triglycerides 68 mg/dL (0-150)
[2024-03-05 17:46] LABS: Vitamin B12 > 2000 pg/mL (193-986)
[2024-03-11 09:33] LABS: Thyroid Peroxidase Antibodies 1 IU/mL (<9)
== END 2024-03-05 16:15 | disposition home or self-care (01) ==
LOC: CHSLAB 16:17
PROVIDERS: PCP Internal Medicine; Visit Provider Internal Medicine
DX: D50.0 Iron deficiency anemia secondary to blood loss (chronic) (principal); I10 Essential (primary) hypertension; E78.2 Mixed hyperlipidemia; E03.4 Atrophy of thyroid (acquired); R23.1 Pallor; E53.8 Deficiency of other specified B group vitamins; E03.9 Hypothyroidism, unspecified
CPT/HCPCS: 36415; 80053; 80061; 81001; 82607; 82728; 83036; 83540; 84439; 84442; 84443; 84481; 85027; 86376

== ENCOUNTER 2024-03-12 12:56 | Outpatient (CLI) | payer OTHER, SELFPAY ==
--- NOTE | ~2024-03-12 | US_ITS ---
EXAMINATION: US thyroid DATE: 03/12/2024 13:36 INDICATION: Hypothyroidism. TECHNIQUE: Multiple ultrasound images of the thyroid were obtained. COMPARISON: Ultrasound 12/07/2016 FINDINGS: The right thyroid lobe measures 2.8 x 1.1 x 1.6 cm. The left thyroid lobe measures 3.2 x 0.7 x 0.5 c m. In the right thyroid lobe, there is a 12 mm mixed solid and cystic, isoechoic, wider than tall no dule with ill-defined margin without echogenic foci (TI-RADS TR2). IMPRESSION: 1. Right thyroid nodule, likely benign. No follow-up is needed. Reviewed, dictated and finalized at location A.
[2024-03-19 14:36] LABS: Reference Lab Test Name PTT LA REFLEX HEXAGO
== END 2024-03-12 12:57 | disposition home or self-care (01) ==
LOC: CHSIMG 12:58
PROVIDERS: PCP Internal Medicine; Visit Provider Internal Medicine Hematology
DX: E03.9 Hypothyroidism, unspecified (principal); I81 Portal vein thrombosis; E04.1 Nontoxic single thyroid nodule
CPT/HCPCS: 36415; 76536; 85730

== ENCOUNTER 2024-05-06 10:46 | Outpatient (CLI) | payer OTHER, SELFPAY ==
[2024-05-06 11:47] LABS: Thyroid Stimulating Hormone 3.76 uIU/mL (0.36-3.74)
== END 2024-05-06 10:47 | disposition home or self-care (01) ==
LOC: CHSLAB 10:48
PROVIDERS: PCP Internal Medicine
DX: E03.9 Hypothyroidism, unspecified (principal)
CPT/HCPCS: 36415; 84443

== ENCOUNTER 2024-05-30 12:25 | Outpatient (CLI) | payer OTHER, SELFPAY ==
[2024-05-30 12:51] LABS: Appearance Urine Sl Cloudy (Clear); Basophils Absolute Auto 0.04 K/mm3 (0.00-0.10); Bilirubin Urine Negative (Negative); Blood Urine Trace-intact (Negative); Eosinophils Absolute Auto 0.14 K/mm3 (0.02-0.50); Eosinophils Percent Auto 3.5 % (1.0-6.0); Glucose Urine UA Negative (Negative); Hematocrit 39.3 % (35.0-49.0); Hemoglobin 12.6 g/dL (12.0-15.0); Immature Granulocyte Absolute 0.01 K/mm3 (0.00-0.00); Immature Granulocyte Percent A 0.2 % (0.0-0.0); Ketones Urine Negative (Negative); Leukocyte Esterase Ur 3+ LEU/UL (Negative); Lymphocytes Absolute Auto 0.97 K/mm3 (1.10-4.50); Mean Corpuscular HGB Conc 32.1 g/dL (32-36); Mean Corpuscular Hemoglobin 29.7 pg (27.0-31.0); Mean Corpuscular Volume 92.7 fL (78.0-102.0); Mean Platelet Volume 9.4 fl (9.2-11.8); Monocytes Percent Auto 9.9 % (2.0-11.0); Neutrophils Absolute Auto 2.48 K/mm3 (1.70-7.20); Neutrophils Percent Auto 61.4 % (50.0-70.0); Nitrate Urine Positive (Negative); Platelet Count Result 111 K/mm3 (150-420); Protein Urine Negative (Negative); Red Blood Count 4.24 M/mm3 (4.20-5.40); Red Cell Distribution Width 15.5 % (11.6-14.4); Urobilinogen Urine 0.2 mg/dL (0.2-1.0); pH Urine 7.5 (5.0-8.0)
[2024-05-30 13:04] LABS: Add Urine Microscopic? YES; Color Urine Light Yellow (Yellow)
[2024-05-30 13:05] LABS: Bacteria Urine 2+ /hpf; RBC Urine 0-2 /hpf (0-2); Squamous Epithelial Cell Urine Few /hpf (Few); WBC Urine 21-30 /hpf (0-3)
[2024-05-30 14:06] LABS: Alanine Aminotransferase 70 U/L (14-59); Alkaline Phosphatase 107 U/L (46-116); Anion Gap 9 mmol/L (4-12); Aspartate Amino Transferase 37 U/L (15-37); Bilirubin,Total 0.6 mg/dL (0.00-1.00); Blood Urea Nitrogen 12 mg/dL (7-18); Calcium 7.4 mg/dL (8.5-10.1); Carbon Dioxide 27 mmol/L (21-32); Chloride 110 mmol/L (98-108); Cholesterol 147 mg/dL (0-200); Creatine Kinase 88 U/L (26-192); Estimated Glomerular Filt Rate 36; Ferritin 85 ng/mL (8-252); Free T3 1.79 pg/mL (2.18-3.98); Free T4 Free Thyroxine 0.98 ng/dL (0.76-1.46); Glucose 82 mg/dL (70-99); HDL Direct 46 mg/dL (40-60); Iron 87 ug/dL (50-170); LDL Cholesterol Calculated 90 mg/dL (<130); Osmolality Calculated 300 mOsm/kg (285-295); Potassium 4.8 mmol/L (3.5-5.1); Sodium 146 mmol/L (136-145); Thyroid Stimulating Hormone 5.49 uIU/mL (0.36-3.74); Total Protein 6.3 g/dL (6.4-8.2); Triglycerides 57 mg/dL (0-150); Vitamin B12 > 2000 pg/mL (193-986)
== END 2024-05-30 12:26 | disposition home or self-care (01) ==
PROVIDERS: PCP Internal Medicine; Visit Provider Internal Medicine
DX: R82.90 Unspecified abnormal findings in urine (principal); E03.4 Atrophy of thyroid (acquired); N18.2 Chronic kidney disease, stage 2 (mild); M81.0 Age-related osteoporosis without current pathological fracture; D50.0 Iron deficiency anemia secondary to blood loss (chronic); N39.0 Urinary tract infection, site not specified; E53.9 Vitamin B deficiency, unspecified
CPT/HCPCS: 36415; 80053; 80061; 81001; 82550; 82607; 82728; 83540; 84439; 84443; 84481; 85025; 87077; 87086; 87088; 87186

== ENCOUNTER 2024-06-19 14:45 | Outpatient (CLI) | payer OTHER, SELFPAY ==
[2024-06-19 15:01] LABS: Add Urine Microscopic? YES; Appearance Urine Clear (Clear); Bilirubin Urine Negative (Negative); Blood Urine Trace-intact (Negative); Color Urine Yellow (Yellow); Glucose Urine UA Negative (Negative); Ketones Urine Negative (Negative); Leukocyte Esterase Ur 3+ (Negative); Nitrate Urine Negative (Negative); Protein Urine Negative (Negative); Urobilinogen Urine 0.2 mg/dL (0.2-1.0)
[2024-06-19 15:10] LABS: Bacteria Urine 1+ /hpf; RBC Urine 0-2 /hpf (0-2); Squamous Epithelial Cell Urine Few /hpf (Few); WBC Urine 21-30 /hpf (0-3)
[2024-06-19 15:29] LABS: Alanine Aminotransferase 70 U/L (14-59); Alkaline Phosphatase 128 U/L (46-116); Anion Gap 6 mmol/L (4-12); Aspartate Amino Transferase 41 U/L (15-37); Bilirubin,Total 0.7 mg/dL (0.00-1.00); Blood Urea Nitrogen 9 mg/dL (7-18); Calcium 7.8 mg/dL (8.5-10.1); Carbon Dioxide 29 mmol/L (21-32); Chloride 109 mmol/L (98-108); Estimated Glomerular Filt Rate 56; Glucose 92 mg/dL (70-99); Osmolality Calculated 296 mOsm/kg (285-295); Potassium 4.3 mmol/L (3.5-5.1); Sodium 144 mmol/L (136-145); Total Protein 6.5 g/dL (6.4-8.2)
== END 2024-06-19 14:46 | disposition home or self-care (01) ==
PROVIDERS: PCP Internal Medicine; Visit Provider Internal Medicine
DX: E83.51 Hypocalcemia (principal); N18.30 Chronic kidney disease, stage 3 unspecified
CPT/HCPCS: 36415; 80053; 81001; 87086; 87186

== ENCOUNTER 2024-07-16 14:14 | Outpatient (CLI) | payer OTHER, SELFPAY ==
[2024-07-16 14:36] LABS: Hematocrit 41.3 % (35.0-42.0); Hemoglobin 12.9 g/dL (11.7-13.8); Mean Corpuscular HGB Conc 31.2 g/dL (32-36); Mean Corpuscular Hemoglobin 30.1 pg (27.0-31.0); Mean Corpuscular Volume 96.3 fL (78.0-102.0); Platelet Count Result 150 K/mm3 (150-420); Red Blood Count 4.29 M/mm3 (4.20-5.40); Red Cell Distribution Width 15.9 % (11.6-14.4); White Blood Count 5.4 K/mm3 (4.8-10.8)
[2024-07-16 14:52] LABS: Alanine Aminotransferase 64 U/L (14-59); Alkaline Phosphatase 156 U/L (46-116); Anion Gap 9 mmol/L (4-12); Aspartate Amino Transferase 58 U/L (15-37); Bilirubin,Total 0.9 mg/dL (0.00-1.00); Blood Urea Nitrogen 7 mg/dL (7-18); Calcium 7.6 mg/dL (8.5-10.1); Carbon Dioxide 26 mmol/L (21-32); Chloride 107 mmol/L (98-108); Estimated Glomerular Filt Rate 56; Glucose 91 mg/dL (70-99); Osmolality Calculated 292 mOsm/kg (285-295); Potassium 4.1 mmol/L (3.5-5.1); Sodium 142 mmol/L (136-145); Total Protein 7.2 g/dL (6.4-8.2)
--- OUTSIDE RECORDS SUMMARY | 2024-07-16 15:04 | XMS_ITS | Encounter Summary ---
Author Organization [facility] Address [address] [place] [address] Phone Care Team Providers Care Gas Cutter Name Role Phone Priyank Zepeda MD Primary Care Provider Encounter Details Date Type Department Care Team (Late Contact Info) Description 01/03/2020 Orders Only [facility]. [address] [place] [id number] Kristofer Ortiz MD [address] [place] [address] Chronic kidney disease stage 3 (HCC) Social History Tobacco Use Types Packs/Day Years Used Date Smoking Tobacco: Never Smokeless Tobacco: Never Alcohol Use Standard Drinks/Week Comments Never 0 (1 standard drink = 0.6 oz pur e alcohol) AUDIT-C Answer Date Recorded Frequency of Alcohol Consumption Never 05/14/2019 Average Number of Drinks Not on file 019 Frequency of Binge Drinking Not on file 05/05 Comments Unknown Sex and Gender Information Value Date Recorded Sex Assigned at Not on file Legal Sex Female 6:09 PM EDT Gender Identity Not on file Sexual Orientation Not on file documented as of this encounter Plan of Treatment Upcoming Encounters Date Type Department Care Team (Late Contact Info) Description 10/22/2024 10:45 AM CDT Office Visit [facility]. [address] [place] [phone] Kristofer Ortiz MD [address] [place] [address] [id number] documented as of this encounter Visit Diagnoses Diagnosis Chronic kidney disease stage 3 (HCC) documented in this encounter Care Teams Gas Cutter Relationship Specialty Start Date End Date Priyank Zepeda MD [address] [place] [address] PCP - General Internal Medicine 05/17/19 documented as of this encounter
--- OUTSIDE RECORDS SUMMARY | 2024-07-16 15:04 | XMS_ITS ---
Author Organization Unknown Address [address] [place] [phone] Phone Care Team Providers Care Business Excellence Leader Name Role Phone GARFIELD Ashby Attending Unavailable ELIANA VALADEZ CRNA Unavailable NO PCP Primary Unavailable Immunization Immunization Date Status Additional Notes Code Code System MMR 10/23/1992 Completed 03 CVX MMR 12/18/1992 Completed 03 CVX Td (adult), 2 Lf tetanus toxoid, preservative free, adsorbed 10/23/1992 Completed 09 CVX Tdap 12/20/2015 Completed 115 CVX Influenza, split virus, trivalent, preservative 02/27/2013 Completed 141 CVX Influenza, split virus, trivalent, preservative 04/23/2014 Completed 141 CVX Influenza, split virus, quadrivalent, PF 03/23/2016 Completed 150 CVX Influenza, split virus, quadrivalent, PF 02/10/2021 Completed 150 CVX Influenza, split virus, quadrivalent, PF 03/06/2022 Completed 150 CVX Influenza, split virus, quadrivalent, preservative 03/19/2014 Completed 158 C VX Influenza, split virus, quadrivalent, preservative 03/05/2018 Completed 158 C VX Influenza, split virus, quadrivalent, preservative 03/11/2019 Completed 158 C VX Influenza, MDCK, quadrivalen t, PF 03/05/2020 Completed 171 CVX Influenza, MDCK, quadrivalen t, PF 03/27/2023 Completed 171 CVX zoster recombinant 04/17/2023 Completed 187 CVX zoster recombinant 10/09/2023 Completed 187 CVX COVID-19, mRNA, LNP-S, PF, 1 00 mcg/0.5mL dose or 50 mcg/0.25mL dose 08/07/2020 Completed 207 CVX COVID-19, mRNA, LNP-S, PF, 1 00 mcg/0.5mL dose or 50 mcg/0.25mL dose 09/04/2020 Completed 207 CVX COVID-19, mRNA, LNP-S, PF, 3 0 mcg/0.3 mL dose 05/13/2021 Completed 208 CVX COVID-19, mRNA, LNP-S, PF, 3 0 mcg/0.3 mL dose 09/13/2021 Completed 208 CVX COVID-19, mRNA, LNP-S, bivalent, PF, 30 mcg/0.3 mL dose 03/06/2022 Completed 300 CVX RSV, recombinant, protein subunit RSVpreF, adjuvant reconstituted, 0.5 mL, PF 04/17/2023 Completed 303 CV X COVID-19, mRNA, LNP-S, PF, gustavo-sucrose, 30 mcg/0.3 mL 03/27/2023 Completed 309 CVX Social History Type Status Start Date End Date Code Code Syst em Smoking History Never smoker (Never Smoked) 596686843 SNOMED CT Sex Female Vital Signs Vital Sign Value Unit Pickens Value Pickens Unit Date/Time Recent/Initial? Code Code System Body Mass Index 30.45 kg/m2 11/13/2023 14:43 Initial 86781 -5 INC Systolic Blood Pressure 136 mm[Hg] 12/14/2023 08:17 Initial 8480- 6 LOINC Diastolic Blood Pressure 78 mm[Hg] 12/14/2023 08:17 Initial 8462- 4 INC Body Surface Area 1.95 m2 11/13/2023 14:43 Initial 3140- 1 LOINC Height 165.100 0 cm 65.00 in 11/13/2023 14:43 Initial 8302- 2 INC O2 Saturation 99 % 2023 08:17 Initial 59515 -5 INC Pulse 57.0 /min 12/14/2023 08:17 Initial 8867- 4 LOINC Respiration 20 /min 12/14/19 08:17 Initial 9279- 1 LOINC Temperature 36.2 Kait 97.1 F 12/14/19 24 08:17 Initial 8310- 5 LOINC Weight 83.01 kg 183.00 lbs 11/13/2023 14:43 Initial 01497 -7 [facility] Medications Medication Start Date End Date Route Frequency Dose Code Code System Medication Instructions Home Meds Vitamin B12 1000 MCG Sublingual Tablet 12/14/2023 Unknown SUBLINGUAL ONCE A DAY [address] 1000 MCG SUBLINGUAL ONCE A DAY Tums Extra Strength 750 MG Oral Tablet, Chewable 12/14/2023 Unknown ORAL NEEDED 750 MG 3785414 RxNorm TAKE 750 MG ORAL NEEDED Amitriptyline 10MG Oral Tablet 12/14/2023 Unknown ORAL TWICE A DAY 10 MILLIGRA MS 098350 RxNorm TAKE 10 MILLIGRAMS ORAL TWICE A DAY Calcitriol 0.5MCG Oral Capsule, Liquid Filled 12/14/2023 Unknown ORAL TWICE A DAY 2 CAPSULE 095992 RxNorm TAKE 2 CAPSULE ORAL TWICE A DAY Calcium Citrate Powder 12/14/2023 [address] ROUTE NOT APPLICABLE 1 unit(s) RxNorm 1 EACH ROUTE NOT APPLICABLE Eliquis 5MG Oral Tablet 12/14/2023 12/14/19 24 ORAL TWICE A DAY 5 MILLIGRA MS 2492491 RxNorm TAKE 5 MILLIGRAMS ORAL TWICE A DAY FLUoxetine 20MG/5ML Oral Solution 12/14/2023 Unknown ORAL TWICE A DAY 418468 RxNorm TAKE mL ORAL TWICE A DAY Iron 325MG Oral Tablet 12/14/2023 Unknown ORAL THREE TIMES A DAY 325 MILLIGRA MS 615644 RxNorm TAKE 325 MILLIGRAMS ORAL THREE TIMES A DAY Levothyroxine 125MCG Oral Tablet 12/14/2023 Unknown ORAL ONCE A DAY 0.5 TABLET 077346 RxNorm TAKE 0.5 TABLET ORAL ONCE A DAY Loratadine 10MG Oral Tablet 12/14/2023 Unknown ORAL NEEDED 10 MILLIGRA MS 948275 RxNorm TAKE 10 MILLIGRAMS ORAL NEEDED Metoprolol Succinate 50MG Oral Tablet, Extended Release 12/14/2023 Unknown ORAL ONCE A DAY 50 MILLIGRA MS 216654 RxNorm TAKE 50 MILLIGRAMS ORAL ONCE A DAY Potassium Chloride 20MEQ Oral Tablet, Extended Release 12/14/2023 Unknown ORAL TWICE A DAY 20 MEQ 2599161 RxNorm TAKE 20 MEQ ORAL TWICE A DAY Sodium Bicarbonate 650MG Oral Tablet 12/14/2023 Unknown ORAL THREE TIMES A DAY 650 MILLIGRA MS 884068 RxNorm TAKE 650 MILLIGRAMS ORAL THREE TIMES A DAY Tab-A-Ezio 11VN-23MH-881M U-6MCG Oral Tablet 12/14/2023 Unknown ORAL ONCE A DAY 1 unit(s) 577805 RxNorm TAKE 1 EACH ORAL ONCE A DAY BETA CAROTENE 12/14/2023 Unknown BY MOUTH ONCE A DAY 1 TABLET RxNorm TAKE 1 TABLET BY MOUTH ONCE A DAY VITAMIN D2 12/14/2023 Unknown ORAL 1.25 MILLIGRA MS RxNorm TAKE 1.25 MILLIGRAMS ORAL Assessment You had the following problems:CHRONIC KIDNEY DISEASE, STAGE 3A Hospital Discharge Instructions Should you have any questions prior to discharge, please contact a member of your healthcare team. If you have left the hospital and have any questions, please contact your primary care physician. Reason For Referral No Data Found Procedures Procedure Name Date Status Code Code Syste m Vocal cord nodule completed 51105548 SNOMEDC T Fracture of tibia completed 74510884 SNOMEDC T Volvulus completed 2270343 SNOMEDCT APPENDECTOMY completed 55799720 SNOMEDCT Removal of kidney stone completed 6134299 S NOMEDCT Anesthesia for lower intesti nal endoscopic procedures, endoscope introduce 12/14/2023 completed 14084 CPT Gastric bypass completed 135828220 SNOMEDCT History of parathyroidectomy completed 4815716 63443368 SNOMEDCT Colonoscopy, flexible; with biopsy, single or multiple 12/14/2023 completed 90519 CPT Problems Problem Start Date Resolved Date Status Code Code System CHRONIC KIDNEY DISEASE, STAG E 3A active 789583291 SNOMED-CT Allergies and Adverse Reactions Allergy Substance Reaction Severity Start Date Concern Status Code Code System ADHESIVE Itching (SNOMED-CT: 308376583) Active SUCCINYLCHOLINE CHLORIDE HARD TO WAKE UP (SNOMED-CT: null) Active 3565 RxNorm CIPRO REDNESS IV ONLY (SNOMED-CT: null) Mild Active 507260 RxNorm No Known Drug Allergies Active 345330875 SNOMED-CT Plan of Treatment Colonoscopy 12/14/2023 Encounters Encounter Diagnosis Start Date Code Code Sys tem Noninfective gastroenteritis and colitis, unspecified 12/14/2023 SNOMED-CT Personal Care Team Section Performer Name Performer Role Active Date Inactive KIERAN Gilbert PCP - Primary care physician 2024-04-16
--- OUTSIDE RECORDS SUMMARY | 2024-07-16 15:04 | XMS_ITS | Encounter Summary ---
Author Organization [facility] Address [address] [place] [address] Phone Care Team Providers Care Cadmium Liquor Maker Name Role Phone Priyank Zepeda MD Primary Care Provider [phone] Encounter Details Date Type Department Care Team (Late Contact Info) Description 12/06/2019 Orders Only [facility]. [address] [place] [phone] Kristofer Ortiz MD [address] [place] [address] Chronic kidney disease stage 3 [...] Description 10/22/2024 10:45 AM CDT Office Visit [facility]. [address] [place] [id number] Kristofer Ortiz MD [address] [place] [address] [address] documented as of this encounter Visit Diagnoses Diagnosis Chronic kidney disease stage 3 (HCC) documented in this encounter Care Teams Cadmium Liquor Maker Relationship Specialty Start Date End Date Priyank Zepeda MD [address] [place] [address] PCP - General Internal Medicine 05/17/19 documented as of this encounter
--- OUTSIDE RECORDS SUMMARY | 2024-07-16 15:05 | XMS_ITS | Clinical Summary ---
Author Organization [facility] Address [address] [place] [address] Care Team Providers Care Extractor Operator Name Role Phone Priyank Zepeda MD Primary Care Provider [phone] Allergies Active Allergy Reactions Criticality Noted Date Comments Ciprofloxacin Rash Low 11/17/2023 Tape Redness 09/28/2023 Medications calcitriol (ROCALTROL) 0.5 MCG capsule Take 1 capsule (0.5 mcg total) by mouth daily. Active metoprolol succinate ER (TOPROL-XL) 50 MG 24 hr tablet Take 1 tablet (50 mg total) by mouth daily. Active multivitamin (TAB-A-SUDHIR/BETA CAROTENE) tablet Take 1 tablet by mouth daily. Active sodium bicarbonate 650 MG tablet Take 4-5 tablets (2,600-3,250 mg total) by mouth 3 (three) times daily. TAKE 4 TABLETS BY MOUTH DAILY IN THE MORNING, 5 IN THE AFTERNOON, AND 4 AT BEDTIME Active amitriptyline (ELAVIL) 10 MG tablet Take 1 tablet (10 mg total) by mouth 2 (two) times daily. Active FLUoxetine (PROZAC) 20 MG capsule Take 2 capsules (40 mg total) by mouth 2 (two) times daily. Active levothyroxine (SYNTHROID) 125 MCG tablet Take 0.5 tablets (62.5 mcg total) by mouth every morning. Active vitamin D2, ergocalciferol, (DRISDOL) 1.25 mg capsule Take 1 capsule (1.25 mg total) by mouth daily. Active potassium chloride CR (KLOR-CON M) 20 MEQ tablet Take 1 tablet (20 mEq total) by mouth daily. 60 tablet Active Cyanocobalamin (VITAMIN B 12) 250 MCG Lozenge Take 250 mcg by mouth 2 (two) times daily. Active Active Problems Problem Noted Date Diagnosed Date GI bleed 11/16/2023 Portal vein thrombosis 09/28/2023 Social History Tobacco Use Types Packs/Day Years Used Date Smoking Tobacco: Never [facility] Advisorsities Answer Date Recorded In the past 12 months has e [employer], oil, or water [employer] threatened to shut off services in your home? Patient declined 11/17/2023 Humiliation, Afraid, Rape, and Kick questionnair e Answer Date Recorded Within the last year, have y ou been afraid of your partner or ex-partner? No 11/17/2023 Within the last year, have y ou been humiliated or emotionally abused in other ways by your partner or ex-partner? No Within the last year, have y ou been kicked, hit, slapped, or otherwise physically hurt by your partner or ex-partner? No 11/17/2023 Within the last year, have y ou been raped or forced to have any kind of sexual activity by your partner or ex-partner? No 11/17/2023 Overall Financial Resource Strain (CARDIA) Answe r Date Recorded How hard is it for you to pa y for the very basics like food, housing, medical care, and heating? Patient declined 11/17/2023 Hunger Vital Sign Answer Date Recorded Within the past 12 months, y ou worried that your food would run out before you got the money to buy more. Sometimes true Within the past 12 months, t he food you bought just didn't last and you didn't have money to get more. Patient declined PRAPARE - Transportation Answer Date Re corded In the past 12 months, has l ack of transportation kept you from medical appointments or from getting medications? No 11/03 In the past 12 months, has l ack of transportation kept you from meetings, work, or from getting things needed for daily living? No 11/17/2023 Housing Stability Vital Sign Answer Bobby e Recorded In the last 12 months, was t here a time when you were not able to pay the mortgage or rent on time? No 11/17/2023 In the past 12 months, how m any times have you moved where you were living? 1 11/17/2023 At any time in the past 12 m [facility], were you homeless or living in a senior living (including now)? No 11/17/2023 Comments Unknown Sex and Gender Information Value Date Recorded Sex Assigned at Female 10/06/2023 2:40 PM CDT Legal Sex Female 8:47 PM CDT Gender Identity Female 10/06/2023 2:40 PM CDT Sexual Orientation Choose not to disclose 2023 2:40 PM CDT Last Filed Vital Signs Vital Sign Reading Time Taken Comments Blood Pressure 105/52 11/18/2023 12:05 PM CDT Pulse 67 11/18/2023 12:05 PM CDT Temperature 36.7 C (98.1 F) 11/18/2023 12:05 PM CDT Respiratory Rate 18 11/18/2023 4:26 AM CDT Oxygen Saturation 98% 11/18/2023 12:05 PM CDT Inhaled Oxygen Concentration - - Weight 82.2 kg (181 lb 3.5 oz) 11/18/2023 4:26 A M CDT Height 165.1 cm (5' 5 ) 11/17/2023 12:41 AM CDT Body Mass Index 30.16 11/17/2023 12:41 AM CDT Plan of Treatment Health Maintenance Due Date Last Done Comments Hepatitis C 1978 Colorectal Cancer Screening FIT/FOBT (1 Year) 08/06/2022 08/06/2021 Mammogram Screening 11/18/2022 11/18/2020, 0 COVID-19 Vaccine ( season) 2024 03/27/2023, 03/06/2022, 09/13/2021, Additional history exists Influenza Adult (#1) 2024 03/27/2023, 03/06/2022, 02/10/2021, Additional history exists Dexa Scan (General) 2024 Pneumococcal Vaccine: 65+ Years (1 of 1 - PCV) 2024 DTaP, Tdap and Td Vaccines (2 - Td or Tdap) 12/19/2025 12/20/2015, 10/23/1992 RSV Immunization or 60+ Years Completed 04/17/2023 Zoster Vaccines Completed 10/09/2023, 04/17/2023 Meningococcal B Vaccine Aged Out No l onger eligible based on patient's age to complete this topic Meningococcal Vaccine Aged Out No moe ike eligible based on patient's age to complete this topic Pneumococcal Vaccine: Pediatrics (0 to 5 Years) and At-Risk Patients (6 to 64 Years) Aged Out No longer eligible based on patient's age to complete this topic RSV Immunizations Under 20 Months Aged Out No longer eligible based on patient's age to complete this topic Procedures Procedure Name Priority Date/Time Associated Diagnosis Comments MG SCREENING W KINGA RONEL DIGI Routine 11/18/2020 11:10 AM CDT Visit for screening mammogram from Last 3 Months or Most Recently Relevant to Health Maintenance Results * MG SCREENING W KINGA RONEL DIGI (11/18/2020 11:10 AM CDT) Anatomical Region Laterality Modality Breast Bilateral Mammography 11/19/2020 10:0 5 AM CDT Impressions 11/19/2020 10:08 AM CDT IMPRESSION: No interval features to suggest malignancy. In the absence of clinical symptoms, return for annual screening due in one year. RECOMMENDATION: Routine Screening, Bilateral in 1 year ASSESSMENT: ACR BI-RADS 2 - BENIGN FINDING(S) Referred By: COLTON PORRAS Interpreted By: Vickie Funez MD, 11/19/2020 10:05 AM Narrative 11/19/2020 10:08 AM CDT EXAMINATION: BILATERAL SCREENING MAMMOGRAPHY CLINICAL INDICATION: 60 years of age female routine screening. On current department history sheet reports mother with history breast cancer age of diagnosis unspecified. COMPARISON: Screening mammogram(s) 10/22, 09/21, 09/20 TECHNIQUE: Digital CC & MLO views. Tomosynthesis imaging acquisition Study read with the assistance of a computer-aided detection system. TISSUE DENSITY: The breast tissue is almost entirely fatty. FINDINGS: A few scattered calcifications. No suspicious grouping of microcalcifications, architectural distortion, or new dominant suspicious nodule 3 dimensionally demonstrated in either breast. Colton Porras MD MAMMO Final Result from Last 3 Months or Most Recently Relevant to Health Maintenance Insurance [employer] Advance Directives * Full Code (Latest Code Status on File) Date Activated Date Inactivated Comments 11/17/2023 1:12 AM 11/18/2023 5:01 PM * Full Code Date Activated Date Inactivated Comments 09/28/2023 1:27 AM 10/02/2023 3:59 PM Care Teams Extractor Operator Relationship Specialty Start Date End Date Priyank Zepeda MD [address] [place] [address] PCP - General INTERNAL MEDICINE 09/19/19
--- OUTSIDE RECORDS SUMMARY | 2024-07-16 15:05 | XMS_ITS | Encounter Summary ---
Author Organization [facility] Address [address] [place] [address] Care Team Providers Care Port Warden Name Role Phone Priyank Zepeda MD Primary Care Provider [phone] Encounter Details Date Type Department Care Team (Late st Contact Info) Description 10/03/2023 Hospital Follow-up Call [facility] [address] [place] [address] Chelsea Bishop RN Social History Tobacco Use Types Packs/Day Years Used Date Smoking Tobacco: Never [facility] Utilities Answer Date Recorded In the past 12 months has e electric, gas, oil, or water [employer] threatened to shut off services in your home? No 09/28/2023 Humiliation, Afraid, Rape, and Kick questionnair e Answer Date Recorded Within the last year, have y ou been afraid of your partner or ex-partner? No 09/28/2023 Within the last year, have y ou been humiliated or emotionally abused in other ways by your partner or ex-partner? No Within the last year, have y ou been kicked, hit, slapped, or otherwise physically hurt by your partner or ex-partner? No 09/28/2023 Within the last year, have y ou been raped or forced to have any kind of sexual activity by your partner or ex-partner? No 09/28/2023 Overall Financial Resource Strain (CARDIA) Answe r Date Recorded How hard is it for you to pa y for the very basics like food, housing, medical care, and heating? Hard 09/28/2023 Hunger Vital Sign Answer Date Recorded Within the past 12 months, y ou worried that your food would run out before you got the money to buy more. Sometimes true Within the past 12 months, t he food you bought just didn't last and you didn't have money to get more. Sometimes true PRAPARE - Transportation Answer Date Re corded In the past 12 months, has l ack of transportation kept you from medical appointments or from getting medications? No 09/04 In the past 12 months, has l ack of transportation kept you from meetings, work, or from getting things needed for daily living? No 09/28/2023 Housing Stability Vital Sign Answer Bobby e Recorded In the last 12 months, was t here a time when you were not able to pay the mortgage or rent on time? No 09/28/2023 In the past 12 months, how m any times have you moved where you were living? 1 09/28/2023 At any time in the past 12 m [facility], were you homeless or living in a longterm (including now)? No 09/28/2023 Comments Unknown Sex and Gender Information Value Date Recorded Sex Assigned at Female 10/06/2023 2:40 PM CDT Legal Sex Female 8:47 PM CDT Gender Identity Female 10/06/2023 2:40 PM CDT Sexual Orientation Choose not to disclose 2023 2:40 PM CDT documented as of this encounter Functional Status * Are you deaf or do you have serious difficulty hearing Answer Date of Assessment Author Status Yes 09/28/2023 12:37 AM CDT Aggie Nava RN Active * Are you blind or do you have serious difficulty seeing, even when wearing glasses? Answer Date of Assessment Author Status No 09/28/2023 12:37 AM CDT Aggie Nava RN Active * Do you have serious difficulty walking or climbing stairs? Answer Date of Assessment Author Status No 09/28/2023 12:37 AM Aggie Reese RN Active * Do you have difficulty dressing or bathing? Answer Date of Assessment Author Status No 09/28/2023 12:37 AM Aggie Reese RN Active * Because of a physical, mental, or emotional condition, do you have difficulty doing errands alone such as visiting a doctor's office or shopping? Answer Date of Assessment Author Status No 09/28/2023 12:37 AM Aggie Reese RN Active documented as of this encounter Mental Status * Because of a physical, mental, or emotional condition, do you have serious difficulty concentrating, remembering, or making decisions? Answer Entry Date Author Status No 09/28/2023 12:37 AM Aggie Reese RN Active documented in this encounter Plan of Treatment Not on file documented as of this encounter Visit Diagnoses Not on filedocumented in this encounter Care Teams Port Warden Relationship Specialty Start Date End Date Priyank Zepeda MD [address] [place] [address] PCP - General INTERNAL MEDICINE 09/19/19 documented as of this encounter
--- OUTSIDE RECORDS SUMMARY | 2024-07-16 15:05 | XMS_ITS | Clinical Summary ---
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 Gender Identity Not on file Sexual Orientation Not on file Plan of Treatment Health Maintenance Due Date Last Done Comments CERVICAL CANCER SCREENING 1959 FIT Test 1959 FIT-DNA Test 1959 FLEXIBLE SIGMOIDOSCOPY 1959 HEPATITIS C SCREENING 1959 TDAP/TD VACCINE (1 - Tdap) 1970 DEPRESSION SCREENING 1971 HIV SCREENING 1974 COLONOSCOPY 2004 COLORECTAL CANCER SCREENING 2004 Pneumococcal Vaccine: 65+ Years (1 of 1 - PCV) 010 ZOSTER SERIES VACCINE (1 of 2) 2009 BREAST CANCER SCREENING 05/05/2014 OSTEOPOROSIS SCREENING 05/05/2014 COVID-19 VACCINE (2023- season) 2024 INFLUENZA VACCINE (#1) 2024 Insurance [place] Care Teams Manager Global Communications Relationship Specialty Start Date End Date Gayla Villar [address] [place] [address] PCP - General 03/11/02
--- OUTSIDE RECORDS SUMMARY | 2024-07-16 15:05 | XMS_ITS | Data Portability ---
Author Organization [facility], [address] [place] [address] Neurology ([place]) Address [address] [address] Care Team Providers Care Enrollment Advisor Name Role Phone KIERAN CALL Primary Care Provider [phone] Assessment Encounter Date Assessment Date Assessment LastModified by Organization Details LastModified Time 10/17/2023 10/17/2023 - Keep already scheduled appointment with GI -secure an appointment with hematology -follow up with your PCP if needed -Call this office with any questions or concerns [email or web address] Not available 10/17/2023 14:57:46 Plan of Treatment Reminders Order Date Submit Date Provider Last Modified By Organization Details Last Modified Time Details Appointments None record ed. Lab None record ed. Referral None record ed. Procedures None record ed. Surgeries None record ed. Imaging None record ed. Medication Orders None record ed. Patient TargetsNo targets recorded. Patient InstructionsNo instructions recorded. Reason for Referral None Reported. Results Created Date Observation Date Name Description Value Unit Range Abnormal Flag Note LastModifiedBy Organization Detail LastModifiedTime 10/02/19 24 10/02/2023 vitam in D, 25-hy droxy , total , serum vitamin D (25-hydroxy) 53.3 NG/mL 20.0-5 0.0 high <10 NG/mL (dejan re defic iency ) 10 to 19 NG/mL (mild to moder ate defic iency ) 20 to 50 NG/mL (opti mum level s) 51 to 80 NG/mL (incr eased risk of hyper calci uria) >80 NG/mL (toxi city possi ble) ----- 53.3 Not Available [facility] - All Sites [address] [place] [address] [address], [place], [address], 06/05/2024 01:21:09 10/02/19 24 10/02/2023 PTH (para thyro id hormo ne), intac t, serum or plasm a PTH-intact 182.5 pg/mL 18.4-8 0.1 high assay perfo rmed by chemi lumin escen ce metho dolog y using sieme ns centa ur xpt reage nt. patie nt resul ts deter mined by assay s using diffe rent manuf actur ers for metho ds may not BE anni rable . ----- 182.5 Not Available [facility] [address], [address], 06/05/2024 01:21:09 10/02/19 24 10/02/2023 phosp horus , serum or plasm a phosphorus 2 mg/dL 2.5-4. 9 low Not Available Test [facility] [address] [place], [address], 06/05/2024 01:21:08 10/02/19 24 10/02/2023 BMP, blood sodium 140 mmol/ L 136-14 5 Not Available [facility] [address], [place], [address], 06/05/2024 01:21:02 10/02/19 24 10/02/2023 BMP, blood potassium 2.9 mmol/ L 3.5-5. 1 low criti benjamin resul t(s) dial d to and read back by: vicky blanton at: 16:07 :22 10/01 by assp. ----- 2.9 Not Available [facility] [address], [place], [address], 06/05/2024 01:21:02 10/02/19 24 10/02/2023 BMP, blood chloride 110 mmol/ L 98-107 high Not Available [facility] [address], [place], [address], 06/05/2024 01:21:02 10/02/19 24 10/02/2023 BMP, blood CO2 24.9 mmol/ L 21.0-3 2.0 Not Available [facility] [address], [place], [address], 06/05/2024 01:21:02 10/02/19 24 10/02/2023 BMP, blood anion gap 5.1 mmol/ L 5.0-15 .0 Not Available [facility] [address] [facility] [address], [place], [address], 06/05/2024 01:21:02 10/02/19 24 10/02/2023 BMP, blood glucose 116 mg/dL 74-106 high Not Available [facility] [address], [place], [address], 06/05/2024 01:21:02 10/02/19 24 10/02/2023 BMP, blood BUN 11 mg/dL 7-18 Not Available [facility] [address], [place], [address], 06/05/2024 01:21:02 10/02/19 24 10/02/2023 BMP, blood creatinine 0.91 mg/dL 0.55-1 .02 Not Available [facility] [address], [place], [address], 06/05/2024 01:21:02 10/02/19 24 10/02/2023 BMP, blood calcium 7.8 mg/dL 8.5-10 .1 low Not Available [facility] [address] [facility], [place], [address], 06/05/2024 01:21:02 10/02/19 24 10/02/2023 BMP, blood eGFR 70 mL/mi n/1.7 3_M2 >90 low Not Available [facility] [address] [facility] [address], [place], [address], 06/05/2024 01:21:02 10/02/19 24 10/02/2023 BMP, blood calculated osmolality 290 mOsm/ kg refer ence range not estab lishe d ----- 290 Not Available [facility] [address], [place], [address], 06/05/2024 01:21:02 10/02/19 24 10/02/2023 BMP, blood GFR notes GFR refere nces: the estim ated GFR IS calcu lated using the 2020 CKD-e pi equat ion. the follo wing categ ories for gradi ng renal funct ion are recom bairon d by the inter natio nal socie ty of nephr ology (kdig o 2011 clini benjamin pract ice guide line) . g1,no rmal or high: >89 mL/mi n/1.7 3 m2 g2,mi ldly decre ased: 60-89 mL/mi n/1.7 3 m2 g3a,m ildly to moder ately decre ased: 45-59 mL/mi n/1.7 3 m2 G3B,m odera tely to sever shanell decre ased: 30-44 mL/mi n/1.7 3 m2 g4,se verel y decre ased: 15-29 mL/mi n/1.7 3 m2 g5,ki dney failu re: <15 mL/mi n/1.7 3 m2 ----- Not Available [facility] [address], [place], [address], 06/05/2024 01:21:02 01/18/20 24 12/07/2022 imagi ng/di agnos tic resul t No observ ation record ed. Not Available 01/18/2024 03:50:12 04/01/20 24 07/28/2023 imagi ng/di agnos tic resul t No observ ation record ed. [email or web address] Not Available 22:51:05 Result Notes None recorded. Procedures Surgical History Date Name Laterality Status Provider Name and Address Organization Details Recorded Time Appendectomy completed Not Available Health Note 10/16/2023 16:10:23 Colonoscopy with biopsy completed Not Available Health Note 10/16/2023 16:10:23 Removal of gallbladder completed Not Available Health Note 10/16/2023 16:10:23 Imaging Results Imaging Date Name Status LastModified by Organiz ation Details LastModified Time 12/07/2022 imaging/diag nostic result completed Information not available 01/18/2024 03:50:12 07/28/2023 imaging/diag nostic result completed [email or web address] Information not available 04/01/2024 22:51:05 Procedure Notes None recorded. Medical Equipment None Reported. Allergies Allergen ID Allergen Name Allergen Category Reaction Reaction Severity Criticality Documentation Date Start Date Code Code System Note Provider Name and Address Organization Details Recorded Time 387181 adhesive tape environme nt,medica tion rash Not available Not available 07/03/20232013 31980 UNK React ion: Rash; Comme nt: Adhes messi Tape React ion Date: 27 Jul 2012 ; Not Available Not Available Not Available 632912 Cipro medicatio n Not available Not available Not available 07/03/20232013 31476 3 RxNorm Comme nt: React ion Date: 01 Jan 2013 ; Not Available Not Available Not Available 234413 succinylc holine chloride medicatio n Not available Not available Not available 07/03/20232015 3565 RxNorm Not Available Not Available Not Available Medications Name Sig Start Date Stop Date Status Note LastModified by Organization Details LastModified Time Prescription - New active Parts Clerk: MEGHAN NIMESH (Audiology) , Sergey n Form Not Available Not Available Not Available Vitals Date Recorded Body height Oxygen saturation Oxygen saturation in Arterial blood by Pulse oximetry Heart rate Body temperature Respiratory rate Systolic blood pressure Diastolic blood pressure Provider Name and Address Organization Details Last Updated DateTime 4 166.37 cm 97 % 97 % 64 /min 97.7 [degF] 18 /min 123 mm[Hg] 74 mm[Hg] Tina cuello [facility] 4 14:41:31 Social History Question Answer Notes LastModified by Organizat ion Details LastModified Time Do You Have An Advance Directive? Yes [email or web address] Information not available 10/16/2023 What Is Your Level Of Alcohol Consumption? None [email or web address] Information not available 10/16/2023 What Is Your Level Of Caffeine Consumption? Occasional [email or web address] Information not available 10/16/2023 What Is Your Code Status? Full Code [email or web address] Information not available 10/16/2023 Are You Currently Employed? No [email or web address] Information not available 10/16/2023 What Is Your Occupation? None, ?disabled? [email or web address] Information not available 10/16/2023 How Many Times Per Week Do You Exercise? 1-2 Times Per Week [email or web address] Information not available 10/16/2023 Do You Have A Medical Power Of Senior Technical Editor? Yes [email or web address] Information not available 10/16/2023 What Was The Date Of Your Most Recent Tobacco Screening? 10/17/2023 [email or web address] Information not available 10/16/2023 What Is Your Relationship Status? Single [email or web address] Information not available 10/16/2023 Do You Use Any Illicit Or Recreational Drugs? No [email or web address] Information not available 10/16/2023 Sex: Unknown Functional Status Question Answer Note LastModified by Organizat ion Details LastModified Time What is your exercise level? Occasional [email or web address] Information not available 10/16/2023 Mental Status None recorded. Family History Relationship Description Onset Age of this Age Resolved Age Notes LastModified by Organization Details LastModified Time Maternal Grandmother Alzheimer's disease [email or web address] Not available 2023 16:10:22 Maternal Grandmother Arthritis [email or web address] Not available 10/03 16:10:22 Brother Blood coagulation disorder [email or web address] Not available 2023 16:10:22 Brother Diabetes mellitus [email or web address] Not available 2023 16:10:22 Brother Hypertensive disorder [email or web address] Not available 2023 16:10:22 Brother Kidney disease [email or web address] Not available 2023 16:10:22 Mother Family history of malignant neoplasm [email or web address] Not available 2023 16:10:22 Mother Kidney disease [email or web address] Not available 2023 16:10:22 Paternal Grandfather Family history of malignant neoplasm [email or web address] Not available 2023 16:10:22 Paternal Grandfather Diabetes mellitus [email or web address] Not available 2023 16:10:22 Paternal Grandfather Hypertensive disorder [email or web address] Not available 2023 16:10:22 Paternal Grandmother Family history of malignant neoplasm [email or web address] Not available 2023 16:10:22 Father Chronic obstructive pulmonary disease [email or web address] Not available 2023 16:10:22 Father Hypertensive disorder [email or web address] Not available 2023 16:10:22 Notes:Maternal Grandmother h as alzheimer's disease Maternal Grandmother has arthritis Maternal Grandmother has smorgasboard of kidney issues, including renal tubular acidosis; mom only had one kidney, eventually on dialysis ( from eschemic bowel); non-alcoholic cirrhosis of the liver, and related issues: both brothers from it, youngest while on transplant list); severe rheumatoid arthritis; sinus problems; eye surgery (?glaucoma) Brother has bleeding disorder Brother has diabetes Brother has high blood pressure Brother has kidney disease Brother has smorgasboard of kidney issues, including renal tubular acidosis; mom only had one kidney, eventually on dialysis ( from eschemic bowel); non-alcoholic cirrhosis of the liver, and related issues: both brothers from it, youngest while on transplant list); severe rheumatoid arthritis; sinus problems; eye surgery (?glaucoma) Mother has cancer Mother has kidney disease Mother has smorgasboard of kidney issues, including renal tubular acidosis; mom only had one kidney, eventually on dialysis ( from eschemic bowel); non-alcoholic cirrhosis of the liver, and related issues: both brothers from it, youngest while on transplant list); severe rheumatoid arthritis; sinus problems; eye surgery (?glaucoma) Paternal Grandfather has cancer Paternal Grandfather has diabetes Paternal Grandfather has high blood pressure Paternal Grandfather has smorgasboard of kidney issues, including renal tubular acidosis; mom only had one kidney, eventually on dialysis ( from eschemic bowel); non-alcoholic cirrhosis of the liver, and related issues: both brothers from it, youngest while on transplant list); severe rheumatoid arthritis; sinus problems; eye surgery (?glaucoma) Paternal Grandmother has cancer Paternal Grandmother has smorgasboard of kidney issues, including renal tubular acidosis; mom only had one kidney, eventually on dialysis ( from eschemic bowel); non-alcoholic cirrhosis of the liver, and related issues: both brothers from it, youngest while on transplant list); severe rheumatoid arthritis; sinus problems; eye surgery (?glaucoma) Father has copd (chronic obstructive lung disease) Father has high blood pressure Father has smorgasboard of kidney issues, including renal tubular acidosis; mom only had one kidney, eventually on dialysis ( from eschemic bowel); non-alcoholic cirrhosis of the liver, and related issues: both brothers from it, youngest while on transplant list); severe rheumatoid arthritis; sinus problems; eye surgery (?glaucoma) Maternal Grandfather has smorgasboard of kidney issues, including renal tubular acidosis; mom only had one kidney, eventually on dialysis ( from eschemic bowel); non-alcoholic cirrhosis of the liver, and related issues: both brothers from it, youngest while on transplant list); severe rheumatoid arthritis; sinus problems; eye surgery (?glaucoma) Medical History Condition Response High Blood Pressure Y COPD N Depression Y Anxiety Disorder Y Arthritis Y Cancer N Stroke N Fibromyalgia N Kidney Disease Y Bleeding Disorder N Asthma N Seizures N Attention-deficit Hyperactivity Disorder N Thyroid Problems N Anemia Y Diabetes N Hyperlipidemia N Heart Disease N Osteoporosis Y Gynecological HistoryNo gynecological history recorded. Obstetrics History GPAL:G 0 P 0 0 0 0 Past Encounters Encounter ID Performer Location Encounter Start Date Encounter Closed Date Diagnosis/Indication Diagnosis SNOMED-CT Code Diagnosis ICD10 Code Diagnosis Note [id number] DO Catia Melendrez [facility] ([place]) [address] [place] [address] 10/17/2023 14:31:01 10/18/2023 15:51:26 Hospital inpatient stay within past 30 days [id number] 106 Z76.89 Health Concerns Section Related Observation LastModified by Organization Detmorteza ls LastModified Time None Recorded Concern Status LastModified by Organization Details LastModified Time None Recorded Advance Directives Directive Y: Payers Encounter Date Sequence Insurance Name Policy Number Policy Juares Covered Member ID Juares Member ID Guarantor Name 10/17/2023 1 [facility] ON OR AFTER 12/03/20 (MEDICAID REPLACEMENT - HMO) Louise Griffithjordin [id number] Louise Bailey Teresa Notes Date Note Type Note Provider Name and Address Organization Details Recorded Time 10/17/2023 text/html Pt presents to t he office today for a hospital follow up. She finished her antibiotics as prescribed. She has been having loose watery stools. She reports that this is not necessarily new. She was having loose stools prior to her hospitalization and has stool samples with her primary care provider. She denies inc stool or stool that is malodorous. She denies obvious blood in her stool. She has been trying to get in to hematology and is currently waiting for a call to set up an appointment. She has an appointment scheduled for November 01 with GI COTTON CLASSER AIDE for consultation. She is eating and drinking well. She denies n/v. YULISSA MARTINEZ, PRE WAVE ASSEMBLER-C [address] [place] [address], [phone], [facility] 10/17/2023 14:58:51 OBGyn Episode No OBEpisode recorded.
--- OUTSIDE RECORDS SUMMARY | 2024-07-16 15:05 | XMS_ITS | Clinical Summary ---
Author Organization [facility] Facility Address [address] [address] Care Team Providers Care Distribution Warehouse Manager Name Role Phone Priyank Zepeda MD Primary Care Provider [phone] Allergies Active Allergy Reactions Criticality Noted Date Comments Ciprofloxacin Other (see comments) 05/09/2019 Succinylcholine Chloride Other (see comments) 1 07/10/2018 Medications amitriptyline (ELAVIL) 10 MG tablet Take 1 tablet by mouth 2 (two) times a day Active cyanocobalamin (VITAMIN B-12) 2500 MCG tablet Take 1 tablet by mouth 1 (one) time each day Active acetaminophen (TYLENOL) 500 MG tablet Take 1 tablet by mouth every 4 (four) hours if needed Active sodium bicarbonate 650 MG tablet Take 13 tablets by mouth 1 (one) time each day Active levothyroxine (SYNTHROID, LEVOTHROID) 125 MCG tablet Take 50 mcg by mouth 1 (one) time each day Take 0.5 tab daily Active BETA CAROTENE PO Take 7,500 mg by mouth 1 (one) time each day Active FLUoxetine (PROzac) 40 MG capsule Take 40 mg by mouth 2 (two) times a day Active multivitamin-iro i-pdxxxbyl-nghur acid (CENTRUM) chewable tablet Chew 1 tablet in the morning and 1 tablet in the evening. Active calcitriol (ROCALTROL) 0.25 MCG capsule Take 0.5 mcg by mouth 1 (one) time each day 0.5 mcg in am, 0.25 mcg in the north Active metoprolol succinate XL (TOPROL XL) 50 MG 24 hr tablet Take 1 tablet (50 mg total) by mouth 1 (one) time each day Do not crush or chew 30 tablet 11 4 Active potassium chloride (KLOR-CON M20) 20 MEQ CR tablet Take 1 tablet (20 mEq total) by mouth in the morning and 1 tablet (20 mEq total) in the evening. 60 tablet 4 Active apixaban (Eliquis) 5 MG tablet Take 5 mg by mouth in the morning and 5 mg in the evening. Active ergocalciferol 1.25 MG (93339 UT) capsule Take 50,000 Units by mouth in the morning. Active ferrous sulfate 325 (65 Fe) MG EC tablet Take 325 mg by mouth in the morning and 325 mg at noon and 325 mg in the evening. Take with meals. Do not crush, chew, or split.. Active pantoprazole (PROTONIX) 40 MG EC tablet Take 40 mg by mouth 1 (one) time each day before breakfast Do not crush, chew, or split. Active predniSONE (DELTASONE) 10 MG tablet Take 10 mg by mouth 1 (one) time each day Active hydrOXYzine (ATARAX) 10 MG tablet Take 10 mg by mouth every 8 (eight) hours if needed for itching Active calamine lotion Apply topically if needed for itching Active Active Problems Problem Noted Date Diagnosed Date Acidosis 05/09/2019 Chronic kidney disease stage 2 05/09/2019 Essential hypertension 05/09/2019 Primary hyperparathyroidism 05/09/2019 Encounters Date Type Department Care Team Description 05/22/2024 Documentation Only [facility] [address] [place] [phone] Kristofer Ortiz MD 04/29/2024 11:00 AM SOUND EFFECTS TECHNICIAN Office Visit [facility] [address] [place] [phone] Kristofer Ortiz MD Stage 3a chronic kidney disease (HCC) (Primary Dx); Hypertension; Primary hyperparathyroidism (HCC) 04/17/2024 Documentation Only [facility] [address] [place] [address] [phone] Kristofer Ortiz MD from Last 3 Months Family History Medical History Relation Comments No Known Problems Brother Cancer Mother breast Hypertension Mother Kidney disease Mother Kidney disease Sibling Relation Status Comments Brother Father Mother Sibling Social History Tobacco Use Types Packs/Day Years Used Date Smoking Tobacco: Never Smokeless Tobacco: Never Tobacco Cessation:Counseling Given: Not Answered Alcohol Use Standard Drinks/Week Comments Never 0 [...] on file Sexual Orientation Not on file Last Filed Vital Signs Vital Sign Reading Time Taken Comments Blood Pressure 94/61 01/23/2024 1:26 PM CDT Pulse 72 01/23/2024 1:26 PM CDT Temperature 36.7 C (98 F) 01/23/2024 1:26 PM CDT Respiratory Rate 18 05/15/2018 11:00 AM SOUND EFFECTS TECHNICIAN Oxygen Saturation 96% 01/23/2024 1:26 PM CDT Inhaled Oxygen Concentration - - Weight 77.6 kg (171 lb) 01/23/2024 1:26 PM CDT Height 165.1 cm (5' 5 ) 01/23/2024 1:26 PM CDT Body Mass Index 28.46 01/23/2024 1:26 PM CDT Plan of Treatment Upcoming Encounters Date Type Department Care Team (Late st Contact Info) Description 10/22/2024 10:45 AM CDT Office Visit [facility] [address] [facility] [address] [place] [phone] Kristofer Ortiz MD [address] [facility] [address] [place] [address] Health Maintenance Due Date Last Done Comments Breast Cancer Screening 1960 Pneumococcal Vaccine: 65+ Years (1 of 2 - PCV) 1966 Pneumococcal Vaccine: Pediatrics (0 to 5 Years) and At-Risk Patients (6 to 64 Years) (1 of 2 - PCV) 1966 Influenza Vaccine (#1) 2024 3, 03/06/2022, 02/10/2021, Additional history exists Colorectal Cancer Screening: Colonoscopy Discontinued 12/14/2023, 11/04/2021 Hepatitis B Vaccine Aged Out No longe r eligible based on patient's age to complete this topic Insurance [facility] Advance Directives Documents on File Type Date Recorded Patient Stable Helper Expl anation Power of Block Trader 10/25/2021 11:10 AM Othe r - POA Power of Block Trader 10/25/2021 11:10 AM Othe r - POA Care Teams Distribution Warehouse Manager Relationship Specialty Start Date End Date Priyank Zepeda MD [address] [place] [address] PCP - General Internal Medicine 05/17/19
[2024-07-16 15:11] LABS: Strep Group A RT-PCR NOT DETECTED (Negative)
[2024-07-16 15:20] LABS: SARS-CoV-2 RNA PCR Negative (Negative)
[2024-07-16 15:21] LABS: Influenza A QL RT-PCR Positive (Negative); Influenza B QL RT-PCR Negative (Negative); RSV RNA, RT-PCR Negative (Negative)
== END 2024-07-16 14:15 | disposition home or self-care (01) ==
LOC: CHSLAB 14:15
PROVIDERS: PCP Internal Medicine; Visit Provider Internal Medicine
DX: R19.7 Diarrhea, unspecified (principal); J06.9 Acute upper respiratory infection, unspecified
CPT/HCPCS: 36415; 80053; 85027; 87637; 87651

== ENCOUNTER 2024-07-17 10:50 | Outpatient (CLI) | payer OTHER, SELFPAY ==
--- OUTSIDE RECORDS SUMMARY | 2024-07-17 11:43 | XMS_ITS | Encounter Summary ---
Author Organization [facility] Address [address] [facility] [address] [address] [place] [address] Phone Care Team Providers Care Wind Farm Operations Manager Name Role Phone Priyank Zepeda MD Primary Care Provider [phone] Encounter Details Date Type Department Care Team (Late Contact Info) Description 12/06/2019 Orders Only [facility] [address] [facility] [address] [place] [phone] Kristofer Ortiz MD [address] [facility] [address] [place] [address] Chronic kidney disease stage 3 [...] Description 10/22/2024 10:45 AM CDT Office Visit [facility] [address] [facility] [address] [place] [phone] Kristofer Ortiz MD [address] [place] [address] [address] documented as of this encounter Visit Diagnoses Diagnosis Chronic kidney disease stage 3 (HCC) documented in this encounter Care Teams Wind Farm Operations Manager Relationship Specialty Start Date End Date Priyank Zepeda MD [address] [place] [address] PCP - General Internal Medicine 05/17/19 documented as of this encounter
--- OUTSIDE RECORDS SUMMARY | 2024-07-17 11:43 | XMS_ITS | Encounter Summary ---
Author Organization [facility] Address [address] [place] [address] Phone Care Team Providers Care Restrooms Or Lounges Maid Name Role Phone Priyank Zepeda MD Primary Care Provider [phone] Encounter Details Date Type Department Care Team (Late Contact Info) Description 01/03/2020 Orders Only [facility] [address] [facility] [place] [phone] Kristofer Ortiz MD [address] [facility] [place] [address] Chronic kidney disease stage 3 [...] Description 10/22/2024 10:45 AM CDT Office Visit [facility] [address] [facility] [place] [phone] Kristofer Ortiz MD [address] [place] [address] [address] documented as of this encounter Visit Diagnoses Diagnosis Chronic kidney disease stage 3 (HCC) documented in this encounter Care Teams Restrooms Or Lounges Maid Relationship Specialty Start Date End Date Priyank Zepeda MD [address] [place] [address] PCP - General Internal Medicine 05/17/19 documented as of this encounter
--- OUTSIDE RECORDS SUMMARY | 2024-07-17 11:43 | XMS_ITS | Clinical Summary ---
Author Organization [facility] Address [address] [place] [address] Care Team Providers Care Publishing Director Name Role Phone Priyank Zepeda MD Primary Care Provider [phone] Allergies Active Allergy Reactions Criticality Noted Date [...] Packs/Day Years Used Date Smoking Tobacco: Never [facility] Internet Broadcastingities Answer Date Recorded In the past 12 months has e [employer], [employer], oil, or water [employer] threatened to shut off services in your [...] any time in the past 12 m [facility], were you homeless or living in a nursing home (including now)? No 11/17/2023 Comments Unknown Sex [...] Most Recently Relevant to Health Maintenance Insurance [employer] Advance Directives * Full Code (Latest Code Status on File) Date Activated Date Inactivated Comments 11/17/2023 1:12 AM 11/18/2023 5:01 PM * Full Code Date Activated Date Inactivated Comments 09/28/2023 1:27 AM 10/02/2023 3:59 PM Care Teams Publishing Director Relationship Specialty Start Date End Date Priyank Zepeda MD [address] [place] [address] PCP - General INTERNAL MEDICINE 09/19/19
--- OUTSIDE RECORDS SUMMARY | 2024-07-17 11:43 | XMS_ITS | Clinical Summary ---
Author Organization [facility] Address [address] [place] [address] Care Team Providers Care Brick Cleaner Name Role Phone Gayla Villar Primary Care Provider [phone] Social History Tobacco Use Types Packs/Day Years Used Date Smoking Tobacco: Never Assessed Comments Unknown Sex and Gender Information Value Date Recorded Sex Assigned at Not on file Legal Sex Female 4:22 PM PICKER FEEDER Gender Identity Not on file Sexual Orientation [...] VACCINE (#1) 2024 Insurance [place] Care Teams Brick Cleaner Relationship Specialty Start Date End Date Gayla Villar [address] [place] [address] PCP - General 03/11/02
--- OUTSIDE RECORDS SUMMARY | 2024-07-17 11:43 | XMS_ITS | Clinical Summary ---
Author Organization [facility] Facility Address [address] [address] Care Team Providers Care Poker Prop Player Name Role Phone Priyank Zepeda MD Primary Care Provider [phone] Allergies Active Allergy Reactions Criticality Noted Date [...] 2 (two) times a day Active multivitamin-iro t-rjehffqt-wvnsz acid (CENTRUM) chewable tablet Chew 1 tablet [...] in the evening. Active ergocalciferol 1.25 MG (01981 UT) capsule Take 50,000 Units by mouth [...] Department Care Team Description 05/22/2024 Documentation Only [facility] [place] [phone] Kristofer Ortiz MD 04/29/2024 11:00 AM CRANE MAN Office Visit [facility] [address] [place] [address] [phone] Kristofer Ortiz MD Stage 3a chronic kidney disease (HCC) (Primary Dx); Hypertension; Primary hyperparathyroidism (HCC) 04/17/2024 Documentation Only [facility] [address] [place] [address] [phone] Kristofer Ortiz MD from Last 3 Months [...] CDT Respiratory Rate 18 05/15/2018 11:00 AM CRANE MAN Oxygen Saturation 96% 01/23/2024 1:26 PM CDT Inhaled Oxygen Concentration - - Weight 77.6 kg (171 lb) 01/23/2024 1:26 PM CDT Height 165.1 cm (5' 5 ) 01/23/2024 1:26 PM CDT Body Mass Index 28.46 01/23/2024 1:26 PM CDT Plan of Treatment Upcoming Encounters Date Type Department Care Team (Late st Contact Info) Description 10/22/2024 10:45 AM CDT Office Visit [facility] [address] [facility] [address] [place] [address] Kristofer Ortiz MD [address] [facility] [facility] [address] [place] [address] Health Maintenance Due Date Last Done Comments [...] patient's age to complete this topic Insurance [facility] Advance Directives Documents on File Type Date Recorded Patient Desktop Administrator Expl anation Power of Phlebotomist Supervisor/Instructor 10/25/2021 11:10 AM Othe r - POA Power of Phlebotomist Supervisor/Instructor 10/25/2021 11:10 AM Othe r - POA Care Teams Poker Prop Player Relationship Specialty Start Date End Date Priyank Zepeda MD [address] [place] [address] PCP - General Internal Medicine 05/17/19
--- OUTSIDE RECORDS SUMMARY | 2024-07-17 11:43 | XMS_ITS | Encounter Summary ---
Author Organization [facility] Address [address] [place] [address] Care Team Providers Care Process Engineering Manager Name Role Phone Priyank Zepeda MD Primary Care Provider [phone] Encounter Details Date Type Department Care Team (Late st Contact Info) Description 10/03/2023 Hospital Follow-up Call [facility] [address] [place] [address] Chelsea Bishop RN Social History Tobacco Use Types Packs/Day Years Used Date Smoking Tobacco: Never [facility] Utilities Answer Date Recorded In the past 12 months has e electric, gas, oil, or water [employer] threatened to shut off services in your [...] any time in the past 12 m [facility], were you homeless or living in a prison (including now)? No 09/28/2023 Comments Unknown Sex [...] on filedocumented in this encounter Care Teams Process Engineering Manager Relationship Specialty Start Date End Date Priyank Zepeda MD [address] [place] [address] PCP - General INTERNAL MEDICINE 09/19/19 documented as of this encounter
--- OUTSIDE RECORDS SUMMARY | 2024-07-17 11:43 | XMS_ITS ---
Author Organization Unknown Address [address] [place] [phone] Phone Care Team Providers Care Entry Level Electrical Engineer Name Role Phone GARFIELD Ashby Attending Unavailable [...] em Smoking History Never smoker (Never Smoked) [id number] SNOMED CT Sex Female Vital Signs Vital Sign Value Unit Tehama Value Tehama Unit Date/Time Recent/Initial? Code Code System Body Mass Index 30.45 kg/m2 11/13/2023 14:43 Initial 04406 -5 INC Systolic Blood Pressure 136 mm[Hg] 12/14/2023 08:17 Initial 8480- 6 LOINC Diastolic Blood Pressure 78 mm[Hg] 12/14/2023 08:17 Initial 8462- 4 INC Body Surface Area 1.95 m2 11/13/2023 14:43 Initial 3140- 1 LOINC Height 165.100 0 cm 65.00 in 11/13/2023 14:43 Initial 8302- 2 INC O2 Saturation 99 % 2023 08:17 Initial 13078 -5 INC Pulse 57.0 /min 12/14/2023 08:17 Initial 8867- 4 LOINC Respiration 20 /min 12/14/19 08:17 Initial 9279- 1 LOINC Temperature 36.2 Kait 97.1 F 12/14/19 24 08:17 Initial 8310- 5 LOINC Weight 83.01 kg 183.00 lbs 11/13/2023 14:43 Initial 01449 -7 [facility] Medications Medication Start Date End Date Route Frequency Dose Code Code System Medication Instructions Home Meds Vitamin B12 1000 MCG Sublingual Tablet 12/14/2023 Unknown SUBLINGUAL ONCE A DAY [address] 1000 MCG SUBLINGUAL ONCE A DAY Tums Extra Strength 750 MG Oral Tablet, Chewable 12/14/2023 Unknown ORAL NEEDED 750 MG 4527976 RxNorm TAKE 750 MG ORAL NEEDED Amitriptyline 10MG Oral Tablet 12/14/2023 Unknown ORAL TWICE A DAY 10 [place] MS 457640 RxNorm TAKE 10 MILLIGRAMS ORAL TWICE A DAY Calcitriol 0.5MCG Oral Capsule, Liquid Filled 12/14/2023 Unknown ORAL TWICE A DAY 2 CAPSULE 278895 RxNorm TAKE 2 CAPSULE ORAL TWICE A DAY Calcium Citrate Powder 12/14/2023 Unknown ROUTE NOT APPLICABLE 1 unit(s) RxNorm 1 EACH ROUTE NOT APPLICABLE Eliquis 5MG Oral Tablet 12/14/2023 12/14/19 24 ORAL TWICE A DAY 5 MILLIGRA MS 5329730 RxNorm TAKE 5 MILLIGRAMS ORAL TWICE A DAY FLUoxetine 20MG/5ML Oral Solution 12/14/2023 Unknown ORAL TWICE A DAY 168625 RxNorm TAKE mL ORAL TWICE A DAY Iron 325MG Oral Tablet 12/14/2023 Unknown ORAL THREE TIMES A DAY 325 [address] MS 777227 RxNorm TAKE 325 MILLIGRAMS ORAL THREE TIMES A DAY Levothyroxine 125MCG Oral Tablet 12/14/2023 Unknown ORAL ONCE A DAY 0.5 TABLET 164682 RxNorm TAKE 0.5 TABLET ORAL ONCE A DAY Loratadine 10MG Oral Tablet 12/14/2023 Unknown ORAL NEEDED 10 MILLIGRA MS 296175 RxNorm TAKE 10 MILLIGRAMS ORAL NEEDED Metoprolol Succinate 50MG Oral Tablet, Extended Release 12/14/2023 Unknown ORAL ONCE A DAY 50 MILLIGRA MS 887535 RxNorm TAKE 50 MILLIGRAMS ORAL ONCE A DAY Potassium Chloride 20MEQ Oral Tablet, Extended Release 12/14/2023 Unknown ORAL TWICE A DAY 20 MEQ 9855754 RxNorm TAKE 20 MEQ ORAL TWICE A DAY Sodium Bicarbonate 650MG Oral Tablet 12/14/2023 Unknown ORAL THREE TIMES A DAY 650 [address]ILL[address]RA MS 665023 RxNorm TAKE 650 MILLIGRAMS ORAL THREE TIMES A DAY Tab-A-Ezio [id number] U-6MCG Oral Tablet 12/14/2023 Unknown ORAL ONCE A DAY 1 unit(s) 503136 RxNorm TAKE 1 EACH ORAL ONCE A [...] Code Syste m Vocal cord nodule completed 23072007 SNOMEDC T Fracture of tibia completed 70540807 SNOMEDC T Volvulus completed 7063436 SNOMEDCT APPENDECTOMY completed 47096607 SNOMEDCT Removal of kidney stone completed 7506606 S NOMEDCT Anesthesia for lower intesti nal endoscopic procedures, endoscope introduce 12/14/2023 completed 16779 CPT Gastric bypass completed 166575998 SNOMEDCT History of parathyroidectomy completed 9533797 60542006 SNOMEDCT Colonoscopy, flexible; with biopsy, single or multiple 12/14/2023 completed 28764 CPT Problems Problem Start Date Resolved Date Status Code Code System CHRONIC KIDNEY DISEASE, STAG E 3A active 460262852 SNOMED-CT Allergies and Adverse Reactions Allergy Substance Reaction Severity Start Date Concern Status Code Code System ADHESIVE Itching (SNOMED-CT: 194425214) Active SUCCINYLCHOLINE CHLORIDE HARD TO WAKE UP (SNOMED-CT: null) Active 3565 RxNorm CIPRO REDNESS IV ONLY (SNOMED-CT: null) Mild Active 085268 RxNorm No Known Drug Allergies Active 444871990 SNOMED-CT Plan of Treatment Colonoscopy 12/14/2023 Encounters Encounter Diagnosis Start Date Code Code Sys tem Noninfective gastroenteritis and colitis, unspecified 12/14/2023 SNOMED-CT Personal Care Team Section Performer Name Performer Role Active Date Inactive KIERAN Gilbert PCP - Primary care physician 2024-04-16
[2024-07-17 11:50] LABS: Toxigenic C. Diff NEGATIVE (NEGATIVE)
== END 2024-07-17 10:51 | disposition home or self-care (01) ==
LOC: CHSLAB 10:51
PROVIDERS: PCP Internal Medicine; Visit Provider Internal Medicine
DX: J06.9 Acute upper respiratory infection, unspecified (principal); R19.7 Diarrhea, unspecified
CPT/HCPCS: 87493

== ENCOUNTER 2024-07-19 14:36 | Outpatient (CLI) | payer OTHER, SELFPAY ==
--- NOTE | ~2024-07-19 | XR_ITS ---
EXAMINATION: XR chest 2V DATE: 07/19/2024 14:50 INDICATION: Cough and wheezing. TECHNIQUE: Frontal and lateral views of the chest were obtained. COMPARISON: Chest 2 views 10/24/2019 FINDINGS: There is no pneumonia, pleural effusion, or pneumothorax. The heart size is normal. Surgica l clips in the right upper quadrant are likely from cholecystectomy. There are old healed left rib fr actures. IMPRESSION: 1. No acute cardiopulmonary disease. Reviewed, dictated and finalized at location A. IPITATOR OPERATOR
--- OUTSIDE RECORDS SUMMARY | 2024-07-19 14:39 | XMS_ITS | Encounter Summary ---
Author Organization [facility] Address [address] [facility] [address] [address] [place] [address] Phone Care Team Providers Care Molding Machine Operator Helper Name Role Phone Priyank Zepeda MD Primary Care Provider [phone] Encounter Details Date Type Department Care Team (Late Contact Info) Description 01/03/2020 Orders Only [facility] [address] [facility] [address] [place] [address] Kristofer Ortiz MD [address] [facility] [address] [place] [address] Chronic kidney disease stage 3 [...] Description 10/22/2024 10:45 AM CDT Office Visit [facility] [address] [facility] [address] [place] [address] Kristofer Ortiz MD [address] [place] [address] [address] documented as of this encounter Visit Diagnoses Diagnosis Chronic kidney disease stage 3 (HCC) documented in this encounter Care Teams Molding Machine Operator Helper Relationship Specialty Start Date End Date Priyank Zepeda MD [address] [place] [address] PCP - General Internal Medicine 05/17/19 documented as of this encounter
--- OUTSIDE RECORDS SUMMARY | 2024-07-19 14:39 | XMS_ITS | Encounter Summary ---
Author Organization [facility] Address [address] [place] [address] Phone Care Team Providers Care Lift Driver Name Role Phone Priyank Zepeda MD Primary Care Provider [phone] Encounter Details Date Type Department Care Team (Late Contact Info) Description 12/06/2019 Orders Only [facility] [address] [facility] [address] [place] [address] Kristofer Ortiz MD [address] [facility] [place] [address] Chronic kidney disease stage 3 [...] Description 10/22/2024 10:45 AM CDT Office Visit [facility] [address] [facility] [place] [address] Kristofer Ortiz MD [address] [place] [address] [address] documented as of this encounter Visit Diagnoses Diagnosis Chronic kidney disease stage 3 (HCC) documented in this encounter Care Teams Lift Driver Relationship Specialty Start Date End Date Priyank Zepeda MD [address] [place] [address] PCP - General Internal Medicine 05/17/19 documented as of this encounter
--- OUTSIDE RECORDS SUMMARY | 2024-07-19 14:39 | XMS_ITS ---
Author Organization Unknown Address [address] [place] [phone] Phone Care Team Providers Care Round Boner Name Role Phone GARFIELD Ashby Attending Unavailable [...] em Smoking History Never smoker (Never Smoked) 402828923 SNOMED CT Sex Female Vital Signs Vital Sign Value Unit Ogle Value Ogle Unit Date/Time Recent/Initial? Code Code System Body Mass Index 30.45 kg/m2 11/13/2023 14:43 Initial 21709 -5 INC Systolic Blood Pressure 136 mm[Hg] 12/14/2023 08:17 Initial 8480- 6 LOINC Diastolic Blood Pressure 78 mm[Hg] 12/14/2023 08:17 Initial 8462- 4 INC Body Surface Area 1.95 m2 11/13/2023 14:43 Initial 3140- 1 LOINC Height 165.100 0 cm 65.00 in 11/13/2023 14:43 Initial 8302- 2 INC O2 Saturation 99 % 2023 08:17 Initial 76850 -5 INC Pulse 57.0 /min 12/14/2023 08:17 Initial 8867- 4 LOINC Respiration 20 /min 12/14/19 08:17 Initial 9279- 1 LOINC Temperature 36.2 Kait 97.1 F 12/14/19 24 08:17 Initial 8310- 5 LOINC Weight 83.01 kg 183.00 lbs 11/13/2023 14:43 Initial 29378 -7 [facility] Medications Medication Start Date End Date Route Frequency Dose Code Code System Medication Instructions Home Meds Vitamin B12 1000 MCG Sublingual Tablet 12/14/2023 Unknown SUBLINGUAL ONCE A DAY [address] 1000 MCG SUBLINGUAL ONCE A DAY Tums Extra Strength 750 MG Oral Tablet, Chewable 12/14/2023 Unknown ORAL NEEDED 750 MG 5272290 RxNorm TAKE 750 MG ORAL NEEDED Amitriptyline 10MG Oral Tablet 12/14/2023 Unknown ORAL TWICE A DAY 10 MILLIGRA MS 593217 RxNorm TAKE 10 MILLIGRAMS ORAL TWICE A DAY Calcitriol 0.5MCG Oral Capsule, Liquid Filled 12/14/2023 Unknown ORAL TWICE A DAY 2 CAPSULE 483723 RxNorm TAKE 2 CAPSULE ORAL TWICE A DAY Calcium Citrate Powder 12/14/2023 Unknown ROUTE NOT APPLICABLE 1 unit(s) RxNorm 1 EACH ROUTE NOT APPLICABLE Eliquis 5MG Oral Tablet 12/14/2023 12/14/19 24 ORAL TWICE A DAY 5 MILLIGRA MS 7769533 RxNorm TAKE 5 MILLIGRAMS ORAL TWICE A DAY FLUoxetine 20MG/5ML Oral Solution 12/14/2023 Unknown ORAL TWICE A DAY 653382 RxNorm TAKE mL ORAL TWICE A DAY Iron 325MG Oral Tablet 12/14/2023 Unknown ORAL THREE TIMES A DAY 325 MILL[address] MS 647726 RxNorm TAKE 325 MILLIGRAMS ORAL THREE TIMES A DAY Levothyroxine 125MCG Oral Tablet 12/14/2023 Unknown ORAL ONCE A DAY 0.5 TABLET 759469 RxNorm TAKE 0.5 TABLET ORAL ONCE A DAY Loratadine 10MG Oral Tablet 12/14/2023 Unknown ORAL NEEDED 10 MILLIG[address] MS 223298 RxNorm TAKE 10 MILLIGRAMS ORAL NEEDED Metoprolol Succinate 50MG Oral Tablet, Extended Release 12/14/2023 Unknown ORAL ONCE A DAY 50 MILLIGRA MS 572715 RxNorm TAKE 50 MILLIGRAMS ORAL ONCE A DAY Potassium Chloride 20MEQ Oral Tablet, Extended Release 12/14/2023 Unknown ORAL TWICE A DAY 20 MEQ 9758391 RxNorm TAKE 20 MEQ ORAL TWICE A DAY Sodium Bicarbonate 650MG Oral Tablet 12/14/2023 Unknown ORAL THREE TIMES A DAY 650 MILL[address]RA MS 924262 RxNorm TAKE 650 MILLIGRAMS ORAL THREE TIMES A DAY Tab-A-Ezio [id number] U-6MCG Oral Tablet 12/14/2023 Unknown ORAL ONCE A DAY 1 unit(s) 801359 RxNorm TAKE 1 EACH ORAL ONCE A [...] Code Syste m Vocal cord nodule completed 77917618 SNOMEDC T Fracture of tibia completed 97911493 SNOMEDC T Volvulus completed 1094504 SNOMEDCT APPENDECTOMY completed 79096942 SNOMEDCT Removal of kidney stone completed 3121054 S NOMEDCT Anesthesia for lower intesti nal endoscopic procedures, endoscope introduce 12/14/2023 completed 40585 CPT Gastric bypass completed 371772256 SNOMEDCT History of parathyroidectomy completed 9323885 32424560 SNOMEDCT Colonoscopy, flexible; with biopsy, single or multiple 12/14/2023 completed 58370 CPT Problems Problem Start Date Resolved Date Status Code Code System CHRONIC KIDNEY DISEASE, STAG E 3A active 921007006 SNOMED-CT Allergies and Adverse Reactions Allergy Substance Reaction Severity Start Date Concern Status Code Code System ADHESIVE Itching (SNOMED-CT: 928500596) Active SUCCINYLCHOLINE CHLORIDE HARD TO WAKE UP (SNOMED-CT: null) Active 3565 RxNorm CIPRO REDNESS IV ONLY (SNOMED-CT: null) Mild Active 731075 RxNorm No Known Drug Allergies Active 056494427 SNOMED-CT Plan of Treatment Colonoscopy 12/14/2023 Encounters Encounter Diagnosis Start Date Code Code Sys tem Noninfective gastroenteritis and colitis, unspecified 12/14/2023 SNOMED-CT Personal Care Team Section Performer Name Performer Role Active Date Inactive KIERAN Gilbert PCP - Primary care physician 2024-04-16
--- OUTSIDE RECORDS SUMMARY | 2024-07-19 14:40 | XMS_ITS | Clinical Summary ---
Author Organization [facility] Facility Address [address] [address] Care Team Providers Care Apprentice Lineman Third Step Name Role Phone Priyank Zepeda MD Primary Care Provider [phone] Allergies Active Allergy Reactions Criticality Noted Date [...] 2 (two) times a day Active multivitamin-iro a-vzirlcdf-vtsvs acid (CENTRUM) chewable tablet Chew 1 tablet [...] in the evening. Active ergocalciferol 1.25 MG (82309 UT) capsule Take 50,000 Units by mouth [...] Department Care Team Description 05/22/2024 Documentation Only [facility] [address] [facility] [address] [place] [address] Kristofer Ortiz MD 04/29/2024 11:00 AM THREAD WINDER AUTOMATIC Office Visit [facility] [address] [place] [address] Kristofer Ortiz MD Stage 3a chronic kidney disease (HCC) (Primary Dx); Hypertension; Primary hyperparathyroidism (HCC) from Last 3 Months Family History Medical [...] CDT Respiratory Rate 18 05/15/2018 11:00 AM THREAD WINDER AUTOMATIC Oxygen Saturation 96% 01/23/2024 1:26 PM CDT Inhaled Oxygen Concentration - - Weight 77.6 kg (171 lb) 01/23/2024 1:26 PM CDT Height 165.1 cm (5' 5 ) 01/23/2024 1:26 PM CDT Body Mass Index 28.46 01/23/2024 1:26 PM CDT Plan of Treatment Upcoming Encounters Date Type Department Care Team (Late st Contact Info) Description 10/22/2024 10:45 AM CDT Office Visit [facility] [address] [facility] [address] [place] [address] Kristofer Ortiz MD [address] [facility] [address] [place] [address] Health Maintenance Due Date Last Done Comments [...] patient's age to complete this topic Insurance [facility] Advance Directives Documents on File Type Date Recorded Patient Cosmetologist Expl anation Power of Vascular Technician 10/25/2021 11:10 AM Othe r - POA Power of Vascular Technician 10/25/2021 11:10 AM Othe r - POA Care Teams Apprentice Lineman Third Step Relationship Specialty Start Date End Date Priyank Zepeda MD [address] [place] [address] PCP - General Internal Medicine 05/17/19
--- OUTSIDE RECORDS SUMMARY | 2024-07-19 14:40 | XMS_ITS | Clinical Summary ---
Author Organization [facility] Address [address] [place] [address] Care Team Providers Care Help Desk Support Specialist Name Role Phone Priyank Zepeda MD Primary Care Provider [phone] Allergies Active Allergy Reactions Criticality Noted Date [...] Packs/Day Years Used Date Smoking Tobacco: Never [facility] [employer] Answer Date Recorded In the past 12 months has e [employer], [employer], oil, or water [employer] threatened to shut off services in your [...] any time in the past 12 m [facility], were you homeless or living in a [facility] (including now)? No 11/17/2023 Comments Unknown Sex [...] Most Recently Relevant to Health Maintenance Insurance [employer] Advance Directives * Full Code (Latest Code Status on File) Date Activated Date Inactivated Comments 11/17/2023 1:12 AM 11/18/2023 5:01 PM * Full Code Date Activated Date Inactivated Comments 09/28/2023 1:27 AM 10/02/2023 3:59 PM Care Teams Help Desk Support Specialist Relationship Specialty Start Date End Date Priyank Zepeda MD [address] [place] [address] PCP - General INTERNAL MEDICINE 09/19/19
--- OUTSIDE RECORDS SUMMARY | 2024-07-19 14:40 | XMS_ITS | Encounter Summary ---
Author Organization [facility] Address [address] [place] [address] Care Team Providers Care Mapping Analyst Name Role Phone Priyank Zepeda MD Primary Care Provider [phone] Encounter Details Date Type Department Care Team (Late st Contact Info) Description 10/03/2023 Hospital Follow-up Call [facility] [address] [place] [address] Chelsea Bishop RN Social History Tobacco Use Types Packs/Day Years Used Date Smoking Tobacco: Never [facility] Utilities Answer Date Recorded In the past 12 months has e electric, gas, oil, or water [employer] threatened to shut off services in your [...] any time in the past 12 m [facility], were you homeless or living in a jail (including now)? No 09/28/2023 Comments Unknown Sex [...] on filedocumented in this encounter Care Teams Mapping Analyst Relationship Specialty Start Date End Date Priyank Zepeda MD [address] [place] [address] PCP - General INTERNAL MEDICINE 09/19/19 documented as of this encounter
--- OUTSIDE RECORDS SUMMARY | 2024-07-19 14:40 | XMS_ITS | Clinical Summary ---
Author Organization [facility] Address [address] [place] [address] Care Team Providers Care Gasoline Tester Name Role Phone Gayla Villar Primary Care Provider [phone] Social History Tobacco Use Types Packs/Day Years Used Date Smoking Tobacco: Never Assessed Comments Unknown Sex and Gender Information Value Date Recorded Sex Assigned at Not on file Legal Sex Female 4:22 PM COMPLIANCE REPRESENTATIVE Gender Identity Not on file Sexual Orientation [...] VACCINE (#1) 2024 Insurance [place] Care Teams Gasoline Tester Relationship Specialty Start Date End Date Gayla Villar [address] [place] [address] PCP - General 03/11/02
--- OUTSIDE RECORDS SUMMARY | 2024-07-19 14:40 | XMS_ITS | Data Portability ---
Author Organization [facility], [address] [place] [address] Neurology ([place]) Address [address] [address] Care Team Providers Care Threading Machine Feeder Automatic Name Role Phone KIERAN CALL Primary Care Provider [phone] Assessment Encounter Date Assessment Date Assessment LastModified by Organization Details LastModified Time 10/17/2023 10/17/2023 - Keep already scheduled appointment with GI -secure an appointment with hematology -follow up with your PCP if needed -Call this office with any questions or concerns [email or web address] Not available 10/17/2023 14:57:46 Plan of Treatment [...] Abnormal Flag Note LastModifiedBy Organization Detail LastModifiedTime 10/02/1910/02/2023 vitam in D, 25-hy droxy , total [...] city possi ble) ----- 53.3 Not Available [facility] - All Sites [address] [place] [address] 240, [place], [address], 06/05/2024 01:21:09 10/02/19 24 10/02/2023 PTH (para [...] anni rable . ----- 182.5 Not Available [facility] [address], [address], 06/05/2024 01:21:09 10/02/19 24 10/02/2023 phosp horus , serum or plasm a phosphorus 2 mg/dL 2.5-4. 9 low Not Available Test [facility] [address] [place], [address], 06/05/2024 01:21:08 10/02/19 24 10/02/2023 BMP, blood sodium 140 mmol/ L 136-14 5 Not Available [facility] [address], [place], [address], 06/05/2024 01:21:02 10/02/19 24 10/02/2023 BMP, blood potassium 2.9 mmol/ L 3.5-5. 1 low criti benjamin resul t(s) dial d to and read back by: vikcy blanton at: 16:07 :22 10/01 by assp. ----- 2.9 Not Available [facility] [address], [place], [address], 06/05/2024 01:21:02 10/02/19 24 10/02/2023 BMP, blood chloride 110 mmol/ L 98-107 high Not Available [facility] [address], [place], [address], 06/05/2024 01:21:02 10/02/19 24 10/02/2023 BMP, blood CO2 24.9 mmol/ L 21.0-3 2.0 Not Available [facility] [address], [place], [address], 06/05/2024 01:21:02 10/02/19 24 10/02/2023 BMP, blood anion gap 5.1 mmol/ L 5.0-15 .0 Not Available [facility] [address] [facility] [address], [place], [address], 06/05/2024 01:21:02 10/02/19 24 10/02/2023 BMP, blood glucose 116 mg/dL 74-106 high Not Available [place] [address], [place], [address], 06/05/2024 01:21:02 10/02/19 24 10/02/2023 BMP, blood BUN 11 mg/dL 7-18 Not Available [place] [address], [place], [address], 06/05/2024 01:21:02 10/02/19 24 10/02/2023 BMP, blood creatinine 0.91 mg/dL 0.55-1 .02 Not Available [facility] [address], [place], [address], 06/05/2024 01:21:02 10/02/19 24 10/02/2023 BMP, blood calcium 7.8 mg/dL 8.5-10 .1 low Not Available [facility] [address] [facility] [address], [place], [address], 06/05/2024 01:21:02 10/02/19 24 10/02/2023 BMP, blood eGFR 70 mL/mi n/1.7 3_M2 >90 low Not Available [place] [address] [facility], [place], [address], 06/05/2024 01:21:02 10/02/19 24 10/02/2023 BMP, blood calculated osmolality 290 mOsm/ kg refer ence range not estab lishe d ----- 290 Not Available [facility] [address], [place], [address], 06/05/2024 01:21:02 10/02/19 24 10/02/2023 BMP, blood [...] mL/mi n/1.7 3 m2 ----- Not Available [facility] [address], [place], [address], 06/05/2024 01:21:02 01/18/20 24 12/07/2022 imagi ng/di [...] Name and Address Organization Details Recorded Time 769678 adhesive tape environme nt,medica tion rash Not available Not available 07/03/20232013 97405 UNK React ion: Rash; Comme nt: Adhes messi Tape React ion Date: 27 Jul 2012 ; Not Available Not Available Not Available 799245 Cipro medicatio n Not available Not available Not available 07/03/20232013 95630 3 RxNorm Comme nt: React ion Date: 01 Jan 2013 ; Not Available Not Available Not Available 013191 succinylc holine chloride medicatio n Not available Not available Not available 07/03/20232015 3565 RxNorm Not Available Not Available Not Available Medications Name Sig Start Date Stop Date Status Note LastModified by Organization Details LastModified Time Prescription - New active Dredge Worker: MEGHAN NIMESH (Audiology) , Sergey n Form [...] /min 123 mm[Hg] 74 mm[Hg] Tina cuello [facility] 4 14:41:31 Social History Question Answer [...] Do You Have A Medical Power Of Air Breaker Operator? Yes [email or web address] Information not available 10/16/2023 What [...] Stroke N Fibromyalgia N Kidney Disease Y Attention-deficit Hyperactivity Disorder N Thyroid Problems N Anemia Y Diabetes N Bleeding Disorder N Hyperlipidemia N Asthma N Seizures N Heart Disease N Osteoporosis Y Gynecological HistoryNo gynecological history recorded. Obstetrics History GPAL:G 0 P 0 0 0 0 Past Encounters Encounter ID Performer Location Encounter Start Date Encounter Closed Date Diagnosis/Indication Diagnosis SNOMED-CT Code Diagnosis ICD10 Code Diagnosis Note [id number] DO Catia Melendrez [facility] ([place]) [address] [place] [address] 10/17/2023 14:31:01 10/18/2023 15:51:26 Hospital inpatient stay within past 30 days [id number] 106 Z76.89 Health Concerns Section Related Observation LastModified by Organization Detmorteza ls LastModified Time None Recorded Concern Status LastModified by Organization Details LastModified Time None Recorded Advance Directives Directive Y: Payers Encounter Date Sequence Insurance Name Policy Number Policy Juares Covered Member ID Juares Member ID Guarantor Name 10/17/2023 1 [facility] ON OR AFTER 12/03/20 (MEDICAID REPLACEMENT - HMO) Louise Griffithjordin [id number] Louise Bailey Teresa Notes Date Note Type [...] appointment scheduled for November 01 with GI PHARMACY DIRECTOR for consultation. She is eating and drinking well. She denies n/v. YULISSA MARTINEZ, CANDLE MOLDER MACHINE-C [address] [place] [address], [phone], [facility] 10/17/2023 14:58:51 OBGyn Episode No OBEpisode recorded.
== END 2024-07-19 14:37 | disposition home or self-care (01) ==
LOC: CHSIMG 14:37
PROVIDERS: PCP Internal Medicine; Visit Provider Nurse Practitioner Family
DX: R06.2 Wheezing (principal)
CPT/HCPCS: 71046

== ENCOUNTER 2024-07-27 07:43 | Emergency (ER) | payer OTHER, SELFPAY ==
[2024-07-27] VITALS (10 sets, daily range): BP systolic 124–151; BP diastolic 74–94; PULSE 62–76; RESP 18–20; TEMP 37.1; O2SAT 95–99
--- OUTSIDE RECORDS SUMMARY | 2024-07-27 07:50 | XMS_ITS | Encounter Summary ---
Author Organization [facility] Address [address] [facility] [place] [address] Phone Care Team Providers Care Administrative Support Manager Name Role Phone Priyank Zepeda MD Primary Care Provider [phone] Encounter Details Date Type Department Care Team (Late Contact Info) Description 12/06/2019 Orders Only [facility]. [address] [facility] [facility] [address] [place] [address] Kristofer Ortiz MD [address] [facility] [facility] [address] [place] [address] Chronic kidney disease stage 3 [...] Description 10/22/2024 10:45 AM CDT Office Visit [facility] [address] [facility] [facility] [facility] [address] [place] [address] Kristofer Ortiz MD [address] [place] [address] [address] documented as of this encounter Visit Diagnoses Diagnosis Chronic kidney disease stage 3 (HCC) documented in this encounter Care Teams Administrative Support Manager Relationship Specialty Start Date End Date Priyank Zepeda MD [address] [place] [address] PCP - General Internal Medicine 05/17/19 documented as of this encounter
--- OUTSIDE RECORDS SUMMARY | 2024-07-27 07:50 | XMS_ITS ---
Author Organization Unknown Address [address] [place] [phone] Phone Care Team Providers Care Electronic Security Specialist Name Role Phone GARFIELD Ashby Attending Unavailable [...] em Smoking History Never smoker (Never Smoked) 502840651 SNOMED CT Sex Female Vital Signs Vital Sign Value Unit [place] [facility] Date/Time Recent/Initial? Code Code System Body Mass Index 30.45 kg/m2 11/13/2023 14:43 Initial 67733 -5 INC Systolic Blood Pressure 136 mm[Hg] 12/14/2023 08:17 Initial 8480- 6 LOINC Diastolic Blood Pressure 78 mm[Hg] 12/14/2023 08:17 Initial 8462- 4 INC Body Surface Area 1.95 m2 11/13/2023 14:43 Initial 3140- 1 LOINC Height 165.100 0 cm 65.00 in 11/13/2023 14:43 Initial 8302- 2 INC O2 Saturation 99 % 2023 08:17 Initial 60728 -5 INC Pulse 57.0 /min 12/14/2023 08:17 Initial 8867- 4 LOINC Respiration 20 /min 12/14/19 08:17 Initial 9279- 1 LOINC Temperature 36.2 Kait 97.1 F 12/14/19 24 08:17 Initial 8310- 5 LOINC Weight 83.01 kg 183.00 lbs 11/13/2023 14:43 Initial 90109 -7 [facility] Medications Medication Start Date End Date Route Frequency Dose Code Code System Medication Instructions Home Meds Vitamin B12 1000 MCG Sublingual Tablet 12/14/2023 Unknown SUBLINGUAL ONCE A DAY [address] 1000 MCG SUBLINGUAL ONCE A DAY Tums Extra Strength 750 MG Oral Tablet, Chewable 12/14/2023 Unknown ORAL NEEDED 750 MG 9987724 RxNorm TAKE 750 MG ORAL NEEDED Amitriptyline 10MG Oral Tablet 12/14/2023 Unknown ORAL TWICE A DAY 10 MILLIGRA MS 403020 RxNorm TAKE 10 MILLIGRAMS ORAL TWICE A DAY Calcitriol 0.5MCG Oral Capsule, Liquid Filled 12/14/2023 Unknown ORAL TWICE A DAY 2 CAPSULE 711975 RxNorm TAKE 2 CAPSULE ORAL TWICE A DAY Calcium Citrate Powder 12/14/2023 [address] ROUTE NOT APPLICABLE 1 unit(s) RxNorm 1 EACH ROUTE NOT APPLICABLE Eliquis 5MG Oral Tablet 12/14/2023 12/14/19 24 ORAL TWICE A DAY 5 MILLIGRA MS 7954343 RxNorm TAKE 5 MILLIGRAMS ORAL TWICE A DAY FLUoxetine 20MG/5ML Oral Solution 12/14/2023 Unknown ORAL TWICE A DAY 353316 RxNorm TAKE mL ORAL TWICE A DAY Iron 325MG Oral Tablet 12/14/2023 Unknown ORAL THREE TIMES A DAY 325 MILLIGRA MS 547693 RxNorm TAKE 325 MILLIGRAMS ORAL THREE TIMES A DAY Levothyroxine 125MCG Oral Tablet 12/14/2023 Unknown ORAL ONCE A DAY 0.5 TABLET 528398 RxNorm TAKE 0.5 TABLET ORAL ONCE A DAY Loratadine 10MG Oral Tablet 12/14/2023 Unknown ORAL NEEDED 10 MILLIGRA MS 288589 RxNorm TAKE 10 MILLIGRAMS ORAL NEEDED Metoprolol Succinate 50MG Oral Tablet, Extended Release 12/14/2023 Unknown ORAL ONCE A DAY 50 MILLIGRA MS 672440 RxNorm TAKE 50 MILLIGRAMS ORAL ONCE A DAY Potassium Chloride 20MEQ Oral Tablet, Extended Release 12/14/2023 Unknown ORAL TWICE A DAY 20 MEQ 6363091 RxNorm TAKE 20 MEQ ORAL TWICE A DAY Sodium Bicarbonate 650MG Oral Tablet 12/14/2023 Unknown ORAL THREE TIMES A DAY 650 MILLIGRA MS 999419 RxNorm TAKE 650 MILLIGRAMS ORAL THREE TIMES A DAY Tab-A-Ezio [id number]-82PZ-043S U-6MCG Oral Tablet 12/14/2023 Unknown ORAL ONCE A DAY 1 unit(s) 357047 RxNorm TAKE 1 EACH ORAL ONCE A [...] Code Syste m Vocal cord nodule completed 78074617 SNOMEDC T Fracture of tibia completed 90788944 SNOMEDC T Volvulus completed 0066817 SNOMEDCT APPENDECTOMY completed 67317661 SNOMEDCT Removal of kidney stone completed 3966214 S NOMEDCT Anesthesia for lower intesti nal endoscopic procedures, endoscope introduce 12/14/2023 completed 46006 CPT Gastric bypass completed 061488748 SNOMEDCT History of parathyroidectomy completed 4695507 13812080 SNOMEDCT Colonoscopy, flexible; with biopsy, single or multiple 12/14/2023 completed 66751 CPT Problems Problem Start Date Resolved Date Status Code Code System CHRONIC KIDNEY DISEASE, STAG E 3A active 649632756 SNOMED-CT Allergies and Adverse Reactions Allergy Substance Reaction Severity Start Date Concern Status Code Code System ADHESIVE Itching (SNOMED-CT: 519065139) Active SUCCINYLCHOLINE CHLORIDE HARD TO WAKE UP (SNOMED-CT: null) Active 3565 RxNorm CIPRO REDNESS IV ONLY (SNOMED-CT: null) Mild Active 095396 RxNorm No Known Drug Allergies Active 065387070 SNOMED-CT Plan of Treatment Colonoscopy 12/14/2023 Encounters Encounter Diagnosis Start Date Code Code Sys tem Noninfective gastroenteritis and colitis, unspecified 12/14/2023 SNOMED-CT Personal Care Team Section Performer Name Performer Role Active Date Inactive KIERAN Gilbert PCP - Primary care physician 2024-04-16
--- OUTSIDE RECORDS SUMMARY | 2024-07-27 07:51 | XMS_ITS | Clinical Summary ---
Author Organization 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 [place] [address] PCP - General 03/11/02
--- OUTSIDE RECORDS SUMMARY | 2024-07-27 07:51 | XMS_ITS | Data Portability ---
Author Organization [facility], [address] [place] [address] Neurology ([place]) Address [address] [address] Care Team Providers Care Log Preparer Name Role Phone KIERAN CALL Primary Care Provider [phone] Assessment Encounter Date Assessment Date Assessment LastModified by Organization Details LastModified Time 10/17/2023 10/17/2023 - Keep already scheduled appointment with GI -secure an appointment with hematology -follow up with your PCP if needed -Call this office with any questions or concerns [email or web address] Not available 10/17/2023 14:57:46 Plan of Treatment [...] city possi ble) ----- 53.3 Not Available [facility] - All Sites [address] [place] [address] 240, [place], [address], 06/05/2024 01:21:09 10/02/19 24 10/02/2023 PTH (para [...] anni rable . ----- 182.5 Not Available [facility] [address], [address], 06/05/2024 01:21:09 10/02/19 24 10/02/2023 phosp horus , serum or plasm a phosphorus 2 mg/dL 2.5-4. 9 low Not Available Test [facility] [address] [place], [address], 06/05/2024 01:21:08 10/02/19 24 10/02/2023 BMP, blood sodium 140 mmol/ L 136-14 5 Not Available [facility] [address], [place], [address], 06/05/2024 01:21:02 10/02/19 24 10/02/2023 BMP, blood potassium 2.9 mmol/ L 3.5-5. 1 low criti benjamin resul t(s) dial d to and read back by: vicky blanton at: 16:07 :22 10/01 by assp. ----- 2.9 Not Available [facility] [address], [place], [address], 06/05/2024 01:21:02 10/02/19 24 10/02/2023 BMP, blood chloride 110 mmol/ L 98-107 high Not Available [facility] [address], [place], [address], 06/05/2024 01:21:02 10/02/19 24 10/02/2023 BMP, blood CO2 24.9 mmol/ L 21.0-3 2.0 Not Available [facility] [address], [place], [address], 06/05/2024 01:21:02 10/02/19 24 10/02/2023 BMP, blood anion gap 5.1 mmol/ L 5.0-15 .0 Not Available [facility] [address] [facility], [place], [address], 06/05/2024 01:21:02 10/02/19 24 10/02/2023 BMP, blood glucose 116 mg/dL 74-106 high Not Available [place] [address], [place], [address], 06/05/2024 01:21:02 10/02/19 24 10/02/2023 BMP, blood BUN 11 mg/dL 7-18 Not Available [place] [address], [place], [address], 06/05/2024 01:21:02 10/02/19 24 10/02/2023 BMP, blood creatinine 0.91 mg/dL 0.55-1 .02 Not Available [facility] [address], [place], [address], 06/05/2024 01:21:02 10/02/19 24 10/02/2023 BMP, blood calcium 7.8 mg/dL 8.5-10 .1 low Not Available [facility] [address] [facility], [place], [address], 06/05/2024 01:21:02 10/02/19 24 10/02/2023 BMP, blood eGFR 70 mL/mi n/1.7 3_M2 >90 low Not Available [place] [address] [facility] [address], [place], [address], 06/05/2024 01:21:02 10/02/19 24 10/02/2023 BMP, blood calculated osmolality 290 mOsm/ kg refer ence range not estab lishe d ----- 290 Not Available [facility] [address], [place], [address], 06/05/2024 01:21:02 10/02/19 24 10/02/2023 BMP, blood [...] mL/mi n/1.7 3 m2 ----- Not Available [facility] [address], [place], [address], 06/05/2024 01:21:02 01/18/20 24 12/07/2022 imagi ng/di [...] Name and Address Organization Details Recorded Time 867917 adhesive tape environme nt,medica tion rash Not available Not available 07/03/20232013 41101 UNK React ion: Rash; Comme nt: Adhes messi Tape React ion Date: 27 Jul 2012 ; Not Available Not Available Not Available 506595 Cipro medicatio n Not available Not available Not available 07/03/20232013 69633 3 RxNorm Comme nt: React ion Date: 01 Jan 2013 ; Not Available Not Available Not Available 196018 succinylc holine chloride medicatio n Not available Not available Not available 07/03/20232015 3565 RxNorm Not Available Not Available Not Available Medications Name Sig Start Date Stop Date Status Note LastModified by Organization Details LastModified Time Prescription - New active Couples Therapist: MEGHAN NIMESH (Audiology) , Sergey n Form [...] /min 123 mm[Hg] 74 mm[Hg] Tina cuello [facility] 4 14:41:31 Social History Question Answer [...] Do You Have A Medical Power Of Cdl Driver? Yes [email or web address] Information not available 10/16/2023 What [...] eye surgery (?glaucoma) Medical History Condition Response Anxiety Disorder Y Diabetes N Bleeding Disorder N Attention-deficit Hyperactivity Disorder N High Blood Pressure Y Arthritis Y Hyperlipidemia N Cancer N Thyroid Problems N Stroke N Asthma N Depression Y COPD N Seizures N Anemia Y Heart Disease N Fibromyalgia N Osteoporosis Y Kidney Disease Y Gynecological HistoryNo gynecological history recorded. Obstetrics History GPAL:G 0 P 0 0 0 0 Past Encounters Encounter ID Performer Location Encounter Start Date Encounter Closed Date Diagnosis/Indication Diagnosis SNOMED-CT Code Diagnosis ICD10 Code Diagnosis Note [id number] DO Catia Melendrez [facility] ([place]) [address] [place] [address] 10/17/2023 14:31:01 10/18/2023 15:51:26 Hospital inpatient stay within past 30 days [id number] 106 Z76.89 Health Concerns Section Related Observation LastModified by Organization Rayray ls LastModified Time None Recorded Concern Status LastModified by Organization Details LastModified Time None Recorded Advance Directives Directive Y: Payers Encounter Date Sequence Insurance Name Policy Number Policy Juares Covered Member ID Juares Member ID Guarantor Name 10/17/2023 1 [facility] [facility] [facility] ON OR AFTER 12/03/20 (MEDICAID REPLACEMENT - HMO) Louise Griffithjordin [id number] Louise Bailey Teresa Notes Date Note Type [...] appointment scheduled for November 01 with GI SUPERVISOR ASBESTOS REMOVAL for consultation. She is eating and drinking well. She denies n/v. YULISSA MARTINEZ, PERMASTONE MECHANIC-C [address] [place] [address], [id number], [facility] 10/17/2023 14:58:51 OBGyn Episode No OBEpisode recorded.
--- OUTSIDE RECORDS SUMMARY | 2024-07-27 07:51 | XMS_ITS | Clinical Summary ---
Author Organization [facility] Address [address] [place] [address] Care Team Providers Care Brick Tester Name Role Phone Priyank Zepeda MD Primary Care Provider [phone] Allergies Active Allergy Reactions Criticality Noted Date [...] Packs/Day Years Used Date Smoking Tobacco: Never [facility] [employer] Answer Date Recorded In the past 12 months has e [employer], [employer], oil, or water [employer] threatened to shut off services in your [...] any time in the past 12 m [facility], were you homeless or living in a half-way (including now)? No 11/17/2023 Comments Unknown Sex [...] Most Recently Relevant to Health Maintenance Insurance AGUILA Advance Directives * Full Code (Latest Code Status on File) Date Activated Date Inactivated Comments 11/17/2023 1:12 AM 11/18/2023 5:01 PM * Full Code Date Activated Date Inactivated Comments 09/28/2023 1:27 AM 10/02/2023 3:59 PM Care Teams Brick Tester Relationship Specialty Start Date End Date Priyank Zepeda MD [address] [place] [address] PCP - General INTERNAL MEDICINE 09/19/19
--- OUTSIDE RECORDS SUMMARY | 2024-07-27 07:51 | XMS_ITS | Clinical Summary ---
Author Organization [facility] Address [address] [address] Care Team Providers Care Senior Java Software Developer Name Role Phone Priyank Zepeda MD Primary Care Provider [phone] Allergies Active Allergy Reactions Criticality Noted Date [...] 2 (two) times a day Active multivitamin-iro l-manjypnh-mqtcx acid (CENTRUM) chewable tablet Chew 1 tablet [...] in the evening. Active ergocalciferol 1.25 MG (22360 UT) capsule Take 50,000 Units by mouth [...] Department Care Team Description 05/22/2024 Documentation Only [facility]. [address] [place] [address] Kristofer Ortiz MD 04/29/2024 11:00 AM COMPOSITION PROFESSOR Office Visit [facility] [address] [place] [address] Kristofer Ortiz MD Stage 3a chronic kidney [...] CDT Respiratory Rate 18 05/15/2018 11:00 AM COMPOSITION PROFESSOR Oxygen Saturation 96% 01/23/2024 1:26 PM CDT Inhaled Oxygen Concentration - - Weight 77.6 kg (171 lb) 01/23/2024 1:26 PM CDT Height 165.1 cm (5' 5 ) 01/23/2024 1:26 PM CDT Body Mass Index 28.46 01/23/2024 1:26 PM CDT Plan of Treatment Upcoming Encounters Date Type Department Care Team (Late st Contact Info) Description 10/22/2024 10:45 AM CDT Office Visit [facility] 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
--- OUTSIDE RECORDS SUMMARY | 2024-07-27 07:51 | XMS_ITS | Encounter Summary ---
Author Organization [facility] Address [address] [place] [address] Phone Care Team Providers Care Manager Transfusion Name Role Phone Priyank Zepeda MD Primary Care Provider [phone] Encounter Details Date Type Department Care Team (Late Contact Info) Description 01/03/2020 Orders Only [facility] [address] [place] [address] Kristofer Ortiz MD [address] [place] [address] Chronic kidney disease stage 3 [...] Description 10/22/2024 10:45 AM CDT Office Visit [facility] [address] [place] [address] Kristofer Ortiz MD [address] [place] [address] [address] documented as of this encounter Visit Diagnoses Diagnosis Chronic kidney disease stage 3 (HCC) documented in this encounter Care Teams Manager Transfusion Relationship Specialty Start Date End Date Priyank Zepeda MD [address] [place] [address] PCP - General Internal Medicine 05/17/19 documented as of this encounter
--- OUTSIDE RECORDS SUMMARY | 2024-07-27 07:51 | XMS_ITS | Encounter Summary ---
Author Organization [facility] Address [address] [place] [address] Care Team Providers Care Baker Test Name Role Phone Priyank Zepeda MD Primary Care Provider [phone] Encounter Details Date Type Department Care Team (Late st Contact Info) Description 10/03/2023 Hospital Follow-up Call [facility] [address] [place] [address] Chelsea Bishop RN Social History Tobacco Use Types Packs/Day Years Used Date Smoking Tobacco: Never [facility] Utilities Answer Date Recorded In the past 12 months has e electric, gas, oil, or water [employer] threatened to shut off services in your [...] any time in the past 12 m [facility], were you homeless or living in a detention (including now)? No 09/28/2023 Comments Unknown Sex [...] on filedocumented in this encounter Care Teams Baker Test Relationship Specialty Start Date End Date Priyank Zepeda MD [address] [place] [address] PCP - General INTERNAL MEDICINE 09/19/19 documented as of this encounter
--- OUTSIDE RECORDS SUMMARY | 2024-07-27 08:06 | XMS_ITS ---
Author Organization Unknown Address [address] [place] [phone] Phone Care Team Providers Care Automotive Electrician Helper Name Role Phone GARFIELD Ashby Attending Unavailable [...] em Smoking History Never smoker (Never Smoked) 812878102 SNOMED CT Sex Female Vital Signs Vital Sign Value Unit Woodruff Value Woodruff Unit Date/Time Recent/Initial? Code Code System Body Mass Index 30.45 kg/m2 11/13/2023 14:43 Initial 67917 -5 INC Systolic Blood Pressure 136 mm[Hg] 12/14/2023 08:17 Initial 8480- 6 LOINC Diastolic Blood Pressure 78 mm[Hg] 12/14/2023 08:17 Initial 8462- 4 INC Body Surface Area 1.95 m2 11/13/2023 14:43 Initial 3140- 1 LOINC Height 165.100 0 cm 65.00 in 11/13/2023 14:43 Initial 8302- 2 INC O2 Saturation 99 % 2023 08:17 Initial 57637 -5 INC Pulse 57.0 /min 12/14/2023 08:17 Initial 8867- 4 LOINC Respiration 20 /min 12/14/19 08:17 Initial 9279- 1 LOINC Temperature 36.2 Kait 97.1 F 12/14/19 24 08:17 Initial 8310- 5 LOINC Weight 83.01 kg 183.00 lbs 11/13/2023 14:43 Initial 15049 -7 [facility] Medications Medication Start Date End Date Route Frequency Dose Code Code System Medication Instructions Home Meds Vitamin B12 1000 MCG Sublingual Tablet 12/14/2023 Unknown SUBLINGUAL ONCE A DAY [address] 1000 MCG SUBLINGUAL ONCE A DAY Tums Extra Strength 750 MG Oral Tablet, Chewable 12/14/2023 Unknown ORAL NEEDED 750 MG 5253420 RxNorm TAKE 750 MG ORAL NEEDED Amitriptyline 10MG Oral Tablet 12/14/2023 Unknown ORAL TWICE A DAY 10 MILLIGRA MS 985092 RxNorm TAKE 10 MILLIGRAMS ORAL TWICE A DAY Calcitriol 0.5MCG Oral Capsule, Liquid Filled 12/14/2023 Unknown ORAL TWICE A DAY 2 CAPSULE 074453 RxNorm TAKE 2 CAPSULE ORAL TWICE A DAY Calcium Citrate Powder 12/14/2023 Unknown ROUTE NOT APPLICABLE 1 unit(s) RxNorm 1 EACH ROUTE NOT APPLICABLE Eliquis 5MG Oral Tablet 12/14/2023 12/14/19 24 ORAL TWICE A DAY 5 MILLIGRA MS 1421842 RxNorm TAKE 5 MILLIGRAMS ORAL TWICE A DAY FLUoxetine 20MG/5ML Oral Solution 12/14/2023 Unknown ORAL TWICE A DAY 931949 RxNorm TAKE mL ORAL TWICE A DAY Iron 325MG Oral Tablet 12/14/2023 Unknown ORAL THREE TIMES A DAY 325 MILLIGRA MS 328776 RxNorm TAKE 325 MILLIGRAMS ORAL THREE TIMES A DAY Levothyroxine 125MCG Oral Tablet 12/14/2023 Unknown ORAL ONCE A DAY 0.5 TABLET 259995 RxNorm TAKE 0.5 TABLET ORAL ONCE A DAY Loratadine 10MG Oral Tablet 12/14/2023 Unknown ORAL NEEDED 10 MILLIGRA MS 775445 RxNorm TAKE 10 MILLIGRAMS ORAL NEEDED Metoprolol Succinate 50MG Oral Tablet, Extended Release 12/14/2023 Unknown ORAL ONCE A DAY 50 MILLIGRA MS 918912 RxNorm TAKE 50 MILLIGRAMS ORAL ONCE A DAY Potassium Chloride 20MEQ Oral Tablet, Extended Release 12/14/2023 Unknown ORAL TWICE A DAY 20 MEQ 8332176 RxNorm TAKE 20 MEQ ORAL TWICE A DAY Sodium Bicarbonate 650MG Oral Tablet 12/14/2023 Unknown ORAL THREE TIMES A DAY 650 MILLIGRA MS 319319 RxNorm TAKE 650 MILLIGRAMS ORAL THREE TIMES A DAY Tab-A-Ezio [id number]-45PP-563Y U-6MCG Oral Tablet 12/14/2023 Unknown ORAL ONCE A DAY 1 unit(s) 503515 RxNorm TAKE 1 EACH ORAL ONCE A [...] Code Syste m Vocal cord nodule completed 26791080 SNOMEDC T Fracture of tibia completed 69094618 SNOMEDC T Volvulus completed 3785397 SNOMEDCT APPENDECTOMY completed 85555172 SNOMEDCT Removal of kidney stone completed 3761915 S NOMEDCT Anesthesia for lower intesti nal endoscopic procedures, endoscope introduce 12/14/2023 completed 47544 CPT Gastric bypass completed 120881381 SNOMEDCT History of parathyroidectomy completed 4588396 11887468 SNOMEDCT Colonoscopy, flexible; with biopsy, single or multiple 12/14/2023 completed 70279 CPT Problems Problem Start Date Resolved Date Status Code Code System CHRONIC KIDNEY DISEASE, STAG E 3A active 290082375 SNOMED-CT Allergies and Adverse Reactions Allergy Substance Reaction Severity Start Date Concern Status Code Code System ADHESIVE Itching (SNOMED-CT: 959808937) Active SUCCINYLCHOLINE CHLORIDE HARD TO WAKE UP (SNOMED-CT: null) Active 3565 RxNorm CIPRO REDNESS IV ONLY (SNOMED-CT: null) Mild Active 578800 RxNorm No Known Drug Allergies Active 123646745 SNOMED-CT Plan of Treatment Colonoscopy 12/14/2023 Encounters Encounter Diagnosis Start Date Code Code Sys tem Noninfective gastroenteritis and colitis, unspecified 12/14/2023 SNOMED-CT Personal Care Team Section Performer Name Performer Role Active Date Inactive KIERAN Gilbert PCP - Primary care physician 2024-04-16
--- NOTE | 2024-07-27 08:42 | ED_ITS ---
HPI - General Adult General Chief complaint: Abdominal Pain Stated complaint: cough; blood in stool Time Seen by Provider: 07/27/24 07:56 History of Present Illness HPI narrative: patient with a complex past medical history that includes hypertension, depression, renal tubular acidosis, kidney stones, gastric bypass, bowel obstruction with colon resection, umbilical hernia, and hemorrhoids who is already established with GI presents with bright red blood per rectum. Patient reports this is a chronic problem for her over weeks if not months. She reports her symptoms seem somewhat worse today she believes that her coughing is exacerbating Her bleeding. patient has chronic diarrhea at baseline again following with GI for this problem. She estimates this morning 1-2 tsp of blood in the toilet. She has a photo with her that matches this estimate. She is noted to be on Eliquis due to history of blood clot in her liver. She has a large umbilical hernia which is at baseline for her and she denies any pain or discomfort associated with this even with coughing. she endorses some mild intermittent nausea, but no vomiting. She denies abdominal pain. she denies any rectal itching, burning, pain. she denies any black, tarry, sticky stools Of note, patient was diagnosed with influenza a on 07/16/2024 she has had a couple of followups with her primary care for this. she had a recent chest x- ray which did not show any pneumonia.She denies any shortness of breath at this time. She endorses some lateral pain along the costal margin consistent with pleuritic pain. she denies any fever or chills. Denies any urinary symptoms. her reason for visit to the ER today is her bleeding and not related to her respiratory status. Related Data Home Medications ?Medication ?Instructions ?Recorded ?Confirmed ?Last Taken ?Type amitriptyline 10 mg tablet 10 mg PO BID 10/24/19 02/27/24 02/27/24 History fluoxetine 40 mg capsule 40 mg PO BID 10/24/19 02/27/24 02/27/24 History metoprolol succinate 50 mg 50 mg PO DAILY 10/24/19 02/27/24 02/27/24 History tablet,extended release 24 hr potassium chloride 20 mEq 20 meq PO BID 10/24/19 02/27/24 02/27/24 History tablet,extended release(part/cryst) cyanocobalamin (vitamin B-12) 2,500 mcg PO DAILY 02/15/22 02/27/24 02/27/24 History beta carotene 30 mg capsule 30 mg PO DAILY 02/25/22 02/27/24 02/27/24 History sodium bicarbonate 650 mg tablet See Rx Instructions .Route .COMPLEX 07/15/22 02/27/24 02/27/24 History calcium citrate 250 mg PO TID 09/27/23 02/27/24 02/27/24 History ergocalciferol (vitamin D2) 1,250 1,250 mcg PO WEEKLY 09/27/23 02/27/24 02/26/24 History mcg (50,000 unit) capsule (Vitamin D2) calcitriol 0.5 mcg capsule See Rx Instructions .Route .COMPLEX 12/25/23 02/27/24 02/27/24 History calcium carbonate (Tums) 200 mg PO BID 12/25/23 02/27/24 02/27/24 History pantoprazole 40 mg tablet,delayed 40 mg PO BID 12/25/23 02/27/24 02/27/24 History release ferrous sulfate 325 mg (65 mg 325 mg PO TID 02/06/24 02/27/24 02/27/24 History iron) tablet (FeroSul) albuterol sulfate 90 mcg/actuation inhalation 07/27/24 Unknown History aerosol inhaler alendronate 10 mg tablet mg PO 07/27/24 Unknown History apixaban 5 mg tablet (Eliquis) mg PO BID 07/27/24 Unknown History hydroxyzine HCl 25 mg tablet mg 07/27/24 Unknown History levothyroxine 125 mcg tablet mcg 07/27/24 Unknown History neojemlk-oio-htzos acid 0.4 1 tablet PO DAILY 07/27/24 Unknown History mg-lycopene 300 mcg-lutein 250 mcg tablet (Adults 50 Plus) Allergies Allergy/AdvReac Type Severity Reaction Status Date / Time ciprofloxacin (From Cipro) Allergy Other Verified 07/27/24 08:20 [facility] Past Medical History Medical History Bradycardia HTN (hypertension) Hyperparathyroidism Hypothyroidism Renal tubular acidosis Trichotillomania Surgical History Surgical History H/O gastric bypass 2002 in [place] - laparoscopic duodenal switch procedure H/O knee surgery H/O parathyroidectomy History of colon surgery 02/15/22 Open right hemicolectomy with ileocolic anastomosis History of colonoscopy with polypectomy May 2021 with benign polypectomy History of extraction of renal calculus History of laparoscopic appendectomy History of laparoscopic cholecystectomy cholecystectomy during her laparoscopic gastric surgery Family History Family History Father Asthma Hypertension Mother Breast cancer Sibling Diabetes mellitus Hypertension Grandparent Cancer Grandparent Diabetes mellitus Cancer Other No pertinent family history Social History Social History Smoking status: Never smoker Alcohol intake: never Substance use: never Substance use type: does not use Other substance usage details: none Do You Feel Safe in your Home?: Yes Lack of Transportation: No Lack of Food: Never True Current Housing: I Have Housing Concerned About Future Housing: No Difficulty Paying Gas/Electric Bills: No Difficulty Paying for Meds: No Currently Unemployed: No Education: Decline to Answer Difficulty w/ Childcare or Family Care: No Occupation/Education: other Additional occupation/education comments: on disability Spiritual care concerns: No Exam Narrative: GEN: Awake, alert, and appropriate to situation. Well appearing, well nourished, nontoxic, NAD. Patient walking around the ER without issue. HEENT: No rhinorrhea noted, mucous membranes moist. No scleral icterus or conj unctival injection. Patient noted to have a cough which is nonproductive. CV: Normal rate, regular rhythm, S1S2 no M/G/R. 2+ distal pulses all extremities. No peripheral edema noted. PULM: Non-labored respiration. Clear to auscultation bilaterally. No wheezes, rales, rhonchi. GI: Abdomen soft, non -tender to palpation. No rigidity, distention or guarding.? 10 cm umbilical hernia which is soft and easily reducible. NEURO: Normal speech. No lateralizing or focal deficits noted. Course Vital Signs Vital signs: Vital Signs Temperature 37.1 C 07/27/24 07:43 Pulse Rate 76 07/27/24 07:43 Respiratory Rate 18 07/27/24 07:43 Blood Pressure 151/94 H 07/27/24 07:43 Pulse Oximetry 98 07/27/24 07:43 Oxygen Delivery Room Air 07/27/24 07:43 Temperature 37.1 C 07/27/24 07:43 Pulse Rate 76 07/27/24 07:43 Respiratory Rate 18 07/27/24 07:43 Blood Pressure 151/94 H 07/27/24 07:43 Pulse Oximetry 95 07/27/24 07:43 Oxygen Delivery Room Air 07/27/24 07:43 Medical Decision Making MDM Narrative Medical decision making narrative: Patient was placed in Room #:? 1 Independent Historian: none External Source Review: medication list Differential diagnosis includes but not limited to:? likely bleeding internal hemorrhoids, other considerations include bleeding diverticulosis but likely not diverticulitis is patient is well appearing and not complaining of abdominal pain per se, Could be other GI bleeding associated with her surgical history the likely not too high up in the GI tract she is not having black or tarry stools. Medications were Reviewed: Home medications Independently Interpreted by me: CBC Medications, treatment, ED course: CBC to evaluate for acute blood loss. Social situation impacting patients care: patient lives independently in the community Shared decision making:? discussed with patient that she likely has bleeding hemorrhoids and that this may be worse due to just some increased intra- abdominal pressure from her coughing due to having recent flu. Offered her reassurance that at this point she has not lost that the blood to impact her overall blood count and that she does not have anemia. Accepting physician: Whitney DISCHARGE DIAGNOSIS: bleeding hemorrhoids DISPOSITION: home with self-care CONDITION AT DISCHARGE:? stable Vital Signs Vital Signs: Vital Signs Temperature 37.1 C 07/27/24 07:43 Pulse Rate 76 07/27/24 07:43 Respiratory Rate 18 07/27/24 07:43 Blood Pressure 151/94 H 07/27/24 07:43 Pulse Oximetry 98 07/27/24 07:43 Oxygen Delivery Room Air 07/27/24 07:43 Temperature 37.1 C 07/27/24 07:43 Pulse Rate 76 07/27/24 07:43 Respiratory Rate 18 07/27/24 07:43 Blood Pressure 151/94 H 07/27/24 07:43 Pulse Oximetry 95 07/27/24 07:43 Oxygen Delivery Room Air 07/27/24 07:43 Discharge Plan Discharge Clinical Impression: Bleeding internal hemorrhoids Patient Disposition: Home, Self-Care Condition: Stable Instructions: Antibiotic Form, Hemorrhoids (DC) Additional Instructions: you likely have bleeding internal hemorrhoids which are being exacerbated by frequent coughing causing increase in pressure inside of your belly. I cannot tell you for sure however that she do not another source of bleeding at this time especially given your extensive history of abdominal surgeries. That said overall your examination and her lab work are reassuring that you are not bleeding so much at this point that you are in any danger. Please call your GI doctor 1st thing on Monday morning to schedule follow-up appointment. Please return to the emergency department if your bleeding increases significantly or if you develop bleeding to the point where you feel weak, short of breath, or are pale. Return to the emergency department immediately for signs and symptoms of incarcerated hernia including inability to reduce the hernia, intense pain, fever, chills, nausea, vomiting. it appears that you are recovering reasonably well from the flu your lung sounds are clear today and her oxygen saturation looks good. That said if you have worsening shortness of breath or pain in her chest please return to the emergency department immediately. Patient Language: Kenyan Prescriptions: New ondansetron 4 mg tablet,disintegrating 4 mg PO Q8H Qty: 7 0RF No Action cyanocobalamin (vitamin B-12) 2,500 mcg PO DAILY ergocalciferol (vitamin D2) [Vitamin D2] 1,250 mcg (50,000 unit) Capsule 1,250 mcg PO WEEKLY calcium citrate 250 mg calcium Tablet 250 mg PO TID fluoxetine 40 mg capsule 40 mg PO BID metoprolol succinate 50 mg tablet extended release 24 hr 50 mg PO DAILY potassium chloride 20 mEq tablet,ER particles/crystals 20 meq PO BID amitriptyline 10 mg tablet 10 mg PO BID calcitriol 0.5 mcg capsule See Rx Instructions .ROUTE .COMPLEX Rx Instructions: Take 2 capsules 3 x's daily ferrous sulfate [FeroSul] 325 mg (65 mg iron) tablet 325 mg PO TID alendronate 10 mg tablet PO levothyroxine 125 mcg tablet hydroxyzine HCl 25 mg tablet albuterol sulfate 90 mcg/actuation HFA aerosol inhaler INHALATION Eliquis 5 mg tablet PO BID Adults 50 Plus 0.4 mg-300 mcg- 250 mcg tablet 1 tablet PO DAILY sodium bicarbonate 650 mg tablet See Rx Instructions .ROUTE .COMPLEX Rx Instructions: take 4 tabs in morning, 5 in afternoon, and 4 at HS beta carotene 30 mg capsule 30 mg PO DAILY pantoprazole 40 mg tablet,delayed release (DR/EC) 40 mg PO BID calcium carbonate [Tums] 200 mg calcium (500 mg) tablet,chewable 200 mg PO BID Follow-up/Referrals: Priyank Zepeda MD [Primary Care Provider] - Time of Disposition: 09:21
[2024-07-27 08:54] LABS: Hematocrit 43.6 % (35.0-42.0); Mean Corpuscular HGB Conc 32.1 g/dL (32-36); Mean Corpuscular Hemoglobin 29.8 pg (27.0-31.0); Mean Corpuscular Volume 92.8 fL (78.0-102.0); Mean Platelet Volume 9.5 fl (9.2-11.8); Platelet Count Result 195 K/mm3 (150-420); Red Cell Distribution Width 16.7 % (11.6-14.4); White Blood Count 10.6 K/mm3 (4.8-10.8)
[2024-07-27] MEDS: ONDANSETRON HCL ODT 4 MG TABLET PO (09:25)
== END 2024-07-27 09:29 | disposition home or self-care (01) ==
PROVIDERS: Emergency Provider Family Medicine; PCP Internal Medicine
DX: K64.8 Other hemorrhoids (principal); I10 Essential (primary) hypertension; E03.9 Hypothyroidism, unspecified; Z79.01 Long term (current) use of anticoagulants; Z79.899 Other long term (current) drug therapy
CPT/HCPCS: 36415; 85027; 99283; A9270

== ENCOUNTER 2024-07-28 01:38 | Emergency (ER) | payer OTHER, SELFPAY ==
[2024-07-28] VITALS (33 sets, daily range): BP systolic 103–141; BP diastolic 61–91; PULSE 72–93; RESP 15–24; TEMP 36.6–37; O2SAT 94–97
--- NOTE | ~2024-07-28 | CT_ITS ---
EXAMINATION: CT abdomen pelvis w con DATE: 07/28/2024 04:18 INDICATION: Gastrointestinal hemorrhage. TECHNIQUE: Computed tomography (CT) of the abdomen and pelvis was performed with 100 mL Omnipaque 350 intravenous contrast. Automated exposure control and iterative reconstruction technique were employe d. The dose-length product was 390.26 mGy-cm. COMPARISON: CT abdomen and pelvis 10/22/2023 FINDINGS: The visualized portions of the lung bases are clear without pneumonia or pleural effusion. The heart size is normal. No pericardial effusion. There is diffuse hepatic steatosis. There are fox ges of cholecystectomy. There are surgical changes of the stomach. The spleen, pancreas, and adrenal glands are normal. There is cortical thinning of the kidneys. There are cysts in the kidneys measurin g up to 13 mm on the right. There are approximately 4 stones in right kidney measuring up to 4 mm. Th ere are greater than 10 stones in left kidney measuring up to 5 mm. There is a ventral hernia contain ing nonobstructed small bowel. Paraesophageal varices are noted. There is chronic thrombosis of main portal vein with cavernous transformation. There is widespread mucosal hyperemia in the large and sma ll bowel bowel with bowel wall thickening. There is a small volume of ascites. There are no pathologi javid enlarged lymph nodes. There are chronic compression fractures of L1 and L2 vertebral bodies. Th ere is a hemangioma in T12 vertebral body. IMPRESSION: 1. Ventral hernia containing nonobstructed small bowel. 2. Enterocolitis. 3. Small volume of ascites. 4. 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 Reviewed, dictated and finalized at location A. [employer]IN[employer]ARING OFFICER IMPRESSION: 1. Ventral hernia containing nonobstructed small bowel. 2. Enterocolitis. 3. Small volume of ascites. 4. Chronic thrombosis of main portal vein with cavernous transformation and par aesophageal varices.
--- OUTSIDE RECORDS SUMMARY | 2024-07-28 01:41 | XMS_ITS | Encounter Summary ---
Author Organization [facility] Address [address] [place] [address] Phone Care Team Providers Care Lithographic Proofer Apprentice Name Role Phone Priyank Zepeda MD Primary Care Provider [phone] Encounter Details Date Type Department Care Team (Late Contact Info) Description 12/06/2019 Orders Only [facility] [address] [place] [phone] Kristofer Ortiz MD [address] [place] [address] Chronic kidney disease stage 3 [...] Description 10/22/2024 10:45 AM CDT Office Visit [facility] [address] [place] [phone] Kristofer Ortiz MD [address] [place] [address] [address] documented as of this encounter Visit Diagnoses Diagnosis Chronic kidney disease stage 3 (HCC) documented in this encounter Care Teams Lithographic Proofer Apprentice Relationship Specialty Start Date End Date Priyank Zepeda MD [address] [place] [address] PCP - General Internal Medicine 05/17/19 documented as of this encounter
--- OUTSIDE RECORDS SUMMARY | 2024-07-28 01:41 | XMS_ITS | Encounter Summary ---
Author Organization [facility] Address [address] [place] [address] Phone Care Team Providers Care Field Attendant Name Role Phone Priyank Zepeda MD Primary Care Provider [phone] Encounter Details Date Type Department Care Team (Late Contact Info) Description 01/03/2020 Orders Only [facility] [address] [place] [phone] Kristofer Ortiz MD [address] [place] [address] Chronic kidney disease stage 3 [...] Description 10/22/2024 10:45 AM CDT Office Visit [facility] [address] [place] [phone] Kristofer Ortiz MD [address] [place] [address] [address] documented as of this encounter Visit Diagnoses Diagnosis Chronic kidney disease stage 3 (HCC) documented in this encounter Care Teams Field Attendant Relationship Specialty Start Date End Date Priyank Zepeda MD [address] [place] [address] PCP - General Internal Medicine 05/17/19 documented as of this encounter
--- OUTSIDE RECORDS SUMMARY | 2024-07-28 01:41 | XMS_ITS ---
Author Organization Unknown Address [address] [place] [address] [phone] Phone Care Team Providers Care Pull Out Operator Name Role Phone GARFIELD Ashby Attending Unavailable [...] em Smoking History Never smoker (Never Smoked) 264239311 SNOMED CT Sex Female Vital Signs Vital Sign Value Unit [place] Value [place] Unit Date/Time Recent/Initial? Code Code System Body Mass Index 30.45 kg/m2 11/13/2023 14:43 Initial 66056 -5 INC Systolic Blood Pressure 136 mm[Hg] 12/14/2023 08:17 Initial 8480- 6 LOINC Diastolic Blood Pressure 78 mm[Hg] 12/14/2023 08:17 Initial 8462- 4 INC Body Surface Area 1.95 m2 11/13/2023 14:43 Initial 3140- 1 LOINC Height 165.100 0 cm 65.00 in 11/13/2023 14:43 Initial 8302- 2 INC O2 Saturation 99 % 2023 08:17 Initial 78700 -5 INC Pulse 57.0 /min 12/14/2023 08:17 Initial 8867- 4 LOINC Respiration 20 /min 12/14/19 08:17 Initial 9279- 1 LOINC Temperature 36.2 Kait 97.1 F 12/14/19 24 08:17 Initial 8310- 5 LOINC Weight 83.01 kg 183.00 lbs 11/13/2023 14:43 Initial 22021 -7 [facility] Medications Medication Start Date End Date Route Frequency Dose Code Code System Medication Instructions Home Meds Vitamin B12 1000 MCG Sublingual Tablet 12/14/2023 Unknown SUBLINGUAL ONCE A DAY [address] 1000 MCG SUBLINGUAL ONCE A DAY Tums Extra Strength 750 MG Oral Tablet, Chewable 12/14/2023 Unknown ORAL NEEDED 750 MG 9852160 RxNorm TAKE 750 MG ORAL NEEDED Amitriptyline 10MG Oral Tablet 12/14/2023 Unknown ORAL TWICE A DAY 10 MILLIGRA MS 582034 RxNorm TAKE 10 MILLIGRAMS ORAL TWICE A DAY Calcitriol 0.5MCG Oral Capsule, Liquid Filled 12/14/2023 Unknown ORAL TWICE A DAY 2 CAPSULE 355153 RxNorm TAKE 2 CAPSULE ORAL TWICE A DAY Calcium Citrate Powder 12/14/2023 [address] R[address]TE NOT APPLICABLE 1 unit(s) RxNorm 1 E[address] ROUTE NOT APPLICABLE Eliquis 5MG Oral Tablet 12/14/2023 12/14/19 24 ORAL TWICE A DAY 5 MILLIGRA MS 2022462 RxNorm TAKE 5 MILLIGRAMS ORAL TWICE A DAY FLUoxetine 20MG/5ML Oral Solution 12/14/2023 Unknown ORAL TWICE A DAY 189413 RxNorm TAKE mL ORAL TWICE A DAY Iron 325MG Oral Tablet 12/14/2023 Unknown ORAL THREE TIMES A DAY 325 MILLIGRA MS 257085 RxNorm TAKE 325 MILLIGRAMS ORAL THREE TIMES A DAY Levothyroxine 125MCG Oral Tablet 12/14/2023 Unknown ORAL ONCE A DAY 0.5 TABLET 182646 RxNorm TAKE 0.5 TABLET ORAL ONCE A DAY Loratadine 10MG Oral Tablet 12/14/2023 Unknown ORAL NEEDED 10 MILLIGRA MS 047189 RxNorm TAKE 10 MILLIGRAMS ORAL NEEDED Metoprolol Succinate 50MG Oral Tablet, Extended Release 12/14/2023 Unknown ORAL ONCE A DAY 50 MILLIGRA MS 814786 RxNorm TAKE 50 MILLIGRAMS ORAL ONCE A DAY Potassium Chloride 20MEQ Oral Tablet, Extended Release 12/14/2023 Unknown ORAL TWICE A DAY 20 MEQ 6697400 RxNorm TAKE 20 MEQ ORAL TWICE A DAY Sodium Bicarbonate 650MG Oral Tablet 12/14/2023 Unknown ORAL THREE TIMES A DAY 650 MILLIGRA MS 488269 RxNorm TAKE 650 MILLIGRAMS ORAL THREE TIMES A DAY Tab-A-Ezio [id number] U-6MCG Oral Tablet 12/14/2023 Unknown ORAL ONCE A DAY 1 unit(s) 822468 RxNorm TAKE 1 EACH ORAL ONCE A [...] Code Syste m Vocal cord nodule completed 70429563 SNOMEDC T Fracture of tibia completed 67117168 SNOMEDC T Volvulus completed 9600199 SNOMEDCT APPENDECTOMY completed 09319720 SNOMEDCT Removal of kidney stone completed 9231779 S NOMEDCT Anesthesia for lower intesti nal endoscopic procedures, endoscope introduce 12/14/2023 completed 98000 CPT Gastric bypass completed 662431067 SNOMEDCT History of parathyroidectomy completed 9827903 86129117 SNOMEDCT Colonoscopy, flexible; with biopsy, single or multiple 12/14/2023 completed 19788 CPT Problems Problem Start Date Resolved Date Status Code Code System CHRONIC KIDNEY DISEASE, STAG E 3A active 751808990 SNOMED-CT Allergies and Adverse Reactions Allergy Substance Reaction Severity Start Date Concern Status Code Code System ADHESIVE Itching (SNOMED-CT: 526036930) Active SUCCINYLCHOLINE CHLORIDE HARD TO WAKE UP (SNOMED-CT: null) Active 3565 RxNorm CIPRO REDNESS IV ONLY (SNOMED-CT: null) Mild Active 025353 RxNorm No Known Drug Allergies Active 047073672 SNOMED-CT Plan of Treatment Colonoscopy 12/14/2023 Encounters Encounter Diagnosis Start Date Code Code Sys tem Noninfective gastroenteritis and colitis, unspecified 12/14/2023 SNOMED-CT Personal Care Team Section Performer Name Performer Role Active Date Inactive KIERAN Gilbert PCP - Primary care physician 2024-04-16
--- OUTSIDE RECORDS SUMMARY | 2024-07-28 01:42 | XMS_ITS | Clinical Summary ---
Author Organization [facility] Facility Address [address] [address] Care Team Providers Care Manufacturing Engineer Assembly Name Role Phone Priyank Zepeda MD Primary Care Provider [phone] Allergies Active Allergy Reactions Criticality Noted Date [...] 2 (two) times a day Active multivitamin-iro h-edwycxos-elnbu acid (CENTRUM) chewable tablet Chew 1 tablet [...] in the evening. Active ergocalciferol 1.25 MG (77648 UT) capsule Take 50,000 Units by mouth [...] Department Care Team Description 05/22/2024 Documentation Only [facility] [address] [facility] [place] [address] Kristofer Ortiz MD 04/29/2024 11:00 AM AUTOMOBILE DRIVERS Office Visit [facility] [address] [place] [address] Kristofer Ortiz MD Stage 3a chronic kidney [...] CDT Respiratory Rate 18 05/15/2018 11:00 AM AUTOMOBILE DRIVERS Oxygen Saturation 96% 01/23/2024 1:26 PM CDT Inhaled Oxygen Concentration - - Weight 77.6 kg (171 lb) 01/23/2024 1:26 PM CDT Height 165.1 cm (5' 5 ) 01/23/2024 1:26 PM CDT Body Mass Index 28.46 01/23/2024 1:26 PM CDT Plan of Treatment Upcoming Encounters Date Type Department Care Team (Late st Contact Info) Description 10/22/2024 10:45 AM CDT Office Visit [facility] [address] [facility] [address] [address] [place] [address] Kristofer Ortiz MD [address] [place] [address] Health Maintenance Due Date Last Done Comments [...] patient's age to complete this topic Insurance [facility] Advance Directives Documents on File Type Date Recorded Patient Campus Receptionist Expl anation Power of Conflict Resolution Professional 10/25/2021 11:10 AM Othe r - POA Power of Conflict Resolution Professional 10/25/2021 11:10 AM Othe r - POA Care Teams Manufacturing Engineer Assembly Relationship Specialty Start Date End Date Priyank Zepeda MD [address] [place] [address] PCP - General Internal Medicine 05/17/19
--- OUTSIDE RECORDS SUMMARY | 2024-07-28 01:42 | XMS_ITS | Clinical Summary ---
Author Organization [facility] Address [address] [place] [address] Care Team Providers Care Order Dispatcher Chief Name Role Phone Priyank Zepeda MD Primary Care Provider [phone] Allergies Active Allergy Reactions Criticality Noted Date [...] Packs/Day Years Used Date Smoking Tobacco: Never [facility] [employer] Answer Date Recorded In the past 12 months has e [employer], [employer], oil, or water [employer] threatened to shut off services in your [...] living in a prison (including now)? No 11/17/2023 Comments Unknown Sex [...] Most Recently Relevant to Health Maintenance Insurance [employer] Advance Directives * Full Code (Latest Code Status on File) Date Activated Date Inactivated Comments 11/17/2023 1:12 AM 11/18/2023 5:01 PM * Full Code Date Activated Date Inactivated Comments 09/28/2023 1:27 AM 10/02/2023 3:59 PM Care Teams Order Dispatcher Chief Relationship Specialty Start Date End Date Priyank Zepeda MD [address] [place] [address] PCP - General INTERNAL MEDICINE 09/19/19
--- OUTSIDE RECORDS SUMMARY | 2024-07-28 01:42 | XMS_ITS | Encounter Summary ---
Author Organization [facility] Address [address] [place] [address] Care Team Providers Care Service Learning Coordinator Name Role Phone Priyank Zepeda MD Primary Care Provider [phone] Encounter Details Date Type Department Care Team (Late st Contact Info) Description 10/03/2023 Hospital Follow-up Call [facility] Cardiovascular Care Unit [address] [place] [address] Chelsea Bishop RN Social History Tobacco Use Types Packs/Day Years Used Date Smoking Tobacco: Never [facility] Utilities Answer Date Recorded In the past 12 months has e electric, gas, oil, or water [employer] threatened to shut off services in your [...] any time in the past 12 m [facility], were you homeless or living [...] Author Status No 09/28/2023 12:37 AM Aggie eRese RN Active documented in this encounter Plan of Treatment Not on file documented as of this encounter Visit Diagnoses Not on filedocumented in this encounter Care Teams Service Learning Coordinator Relationship Specialty Start Date End Date Priyank Zepeda MD [address] [place] [address] PCP - General INTERNAL MEDICINE 09/19/19 documented as of this encounter
--- OUTSIDE RECORDS SUMMARY | 2024-07-28 01:42 | XMS_ITS | Clinical Summary ---
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 [place] [address] PCP - General 03/11/02
--- NOTE | 2024-07-28 02:34 | PC.NURSE ---
NOTIFIED ELIZABETH WITH LAB THAT PATIENT HAD ORDERS
--- NOTE | 2024-07-28 02:44 | PC.NURSE ---
PATIENT AMBULATED SELF TO THE BATHROOM AND BACK TO ROOM 3
--- OUTSIDE RECORDS SUMMARY | 2024-07-28 02:47 | XMS_ITS ---
Author Organization Unknown Address [address] [place] [phone] Phone Care Team Providers Care Bleach Mixer Name Role Phone GARFIELD Ashby Attending Unavailable [...] em Smoking History Never smoker (Never Smoked) 377429499 SNOMED CT Sex Female Vital Signs Vital Sign Value Unit [place] Value [place] Unit Date/Time Recent/Initial? Code Code System Body Mass Index 30.45 kg/m2 11/13/2023 14:43 Initial 79957 -5 INC Systolic Blood Pressure 136 mm[Hg] 12/14/2023 08:17 Initial 8480- 6 LOINC Diastolic Blood Pressure 78 mm[Hg] 12/14/2023 08:17 Initial 8462- 4 INC Body Surface Area 1.95 m2 11/13/2023 14:43 Initial 3140- 1 LOINC Height 165.100 0 cm 65.00 in 11/13/2023 14:43 Initial 8302- 2 INC O2 Saturation 99 % 2023 08:17 Initial 21943 -5 INC Pulse 57.0 /min 12/14/2023 08:17 Initial 8867- 4 LOINC Respiration 20 /min 12/14/19 08:17 Initial 9279- 1 LOINC Temperature 36.2 Kait 97.1 F 12/14/19 24 08:17 Initial 8310- 5 LOINC Weight 83.01 kg 183.00 lbs 11/13/2023 14:43 Initial 22243 -7 [facility] Medications Medication Start Date End Date Route Frequency Dose Code Code System Medication Instructions Home Meds Vitamin B12 1000 MCG Sublingual Tablet 12/14/2023 Unknown SUBLINGUAL ONCE A DAY [address] 1000 MCG SUBLINGUAL ONCE A DAY Tums Extra Strength 750 MG Oral Tablet, Chewable 12/14/2023 Unknown ORAL NEEDED 750 MG 4460170 RxNorm TAKE 750 MG ORAL NEEDED Amitriptyline 10MG Oral Tablet 12/14/2023 Unknown ORAL TWICE A DAY 10 MILLIGRA MS 046566 RxNorm TAKE 10 MILLIGRAMS ORAL TWICE A DAY Calcitriol 0.5MCG Oral Capsule, Liquid Filled 12/14/2023 Unknown ORAL TWICE A DAY 2 CAPSULE 906691 RxNorm TAKE 2 CAPSULE ORAL TWICE A DAY Calcium Citrate Powder 12/14/2023 [address] ROUTE NOT APPLICABLE 1 unit(s) RxNorm 1 E[address] ROUTE NOT APPLICABLE Eliquis 5MG Oral Tablet 12/14/2023 12/14/19 24 ORAL TWICE A DAY 5 MILLIGRA MS 3183335 RxNorm TAKE 5 MILLIGRAMS ORAL TWICE A DAY FLUoxetine 20MG/5ML Oral Solution 12/14/2023 Unknown ORAL TWICE A DAY 064722 RxNorm TAKE mL ORAL TWICE A DAY Iron 325MG Oral Tablet 12/14/2023 Unknown ORAL THREE TIMES A DAY 325 MILLIGRA MS 595829 RxNorm TAKE 325 MILLIGRAMS ORAL THREE TIMES A DAY Levothyroxine 125MCG Oral Tablet 12/14/2023 Unknown ORAL ONCE A DAY 0.5 TABLET 902441 RxNorm TAKE 0.5 TABLET ORAL ONCE A DAY Loratadine 10MG Oral Tablet 12/14/2023 Unknown ORAL NEEDED 10 MILLIGRA MS 367709 RxNorm TAKE 10 MILLIGRAMS ORAL NEEDED Metoprolol Succinate 50MG Oral Tablet, Extended Release 12/14/2023 Unknown ORAL ONCE A DAY 50 MILLIGRA MS 857443 RxNorm TAKE 50 MILLIGRAMS ORAL ONCE A DAY Potassium Chloride 20MEQ Oral Tablet, Extended Release 12/14/2023 Unknown ORAL TWICE A DAY 20 MEQ 7457530 RxNorm TAKE 20 MEQ ORAL TWICE A DAY Sodium Bicarbonate 650MG Oral Tablet 12/14/2023 Unknown ORAL THREE TIMES A DAY 650 MILLIGRA MS 160756 RxNorm TAKE 650 MILLIGRAMS ORAL THREE TIMES A DAY Tab-A-Ezio [id number] U-6MCG Oral Tablet 12/14/2023 Unknown ORAL ONCE A DAY 1 unit(s) 131736 RxNorm TAKE 1 EACH ORAL ONCE A [...] Code Syste m Vocal cord nodule completed 56099380 SNOMEDC T Fracture of tibia completed 75515259 SNOMEDC T Volvulus completed 2527585 SNOMEDCT APPENDECTOMY completed 07586124 SNOMEDCT Removal of kidney stone completed 3858275 S NOMEDCT Anesthesia for lower intesti nal endoscopic procedures, endoscope introduce 12/14/2023 completed 11248 CPT Gastric bypass completed 732851171 SNOMEDCT History of parathyroidectomy completed 1143150 33275175 SNOMEDCT Colonoscopy, flexible; with biopsy, single or multiple 12/14/2023 completed 97102 CPT Problems Problem Start Date Resolved Date Status Code Code System CHRONIC KIDNEY DISEASE, STAG E 3A active 385133469 SNOMED-CT Allergies and Adverse Reactions Allergy Substance Reaction Severity Start Date Concern Status Code Code System ADHESIVE Itching (SNOMED-CT: 592489336) Active SUCCINYLCHOLINE CHLORIDE HARD TO WAKE UP (SNOMED-CT: null) Active 3565 RxNorm CIPRO REDNESS IV ONLY (SNOMED-CT: null) Mild Active 617817 RxNorm No Known Drug Allergies Active 256168546 SNOMED-CT Plan of Treatment Colonoscopy 12/14/2023 Encounters Encounter Diagnosis Start Date Code Code Sys tem Noninfective gastroenteritis and colitis, unspecified 12/14/2023 SNOMED-CT Personal Care Team Section Performer Name Performer Role Active Date Inactive KIERAN Gilbert PCP - Primary care physician 2024-04-16
--- OUTSIDE RECORDS SUMMARY | 2024-07-28 02:47 | XMS_ITS | Clinical Summary ---
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 [place] [address] PCP - General 03/11/02
--- OUTSIDE RECORDS SUMMARY | 2024-07-28 02:47 | XMS_ITS | Encounter Summary ---
Author Organization [facility] Address [address] [place] [address] Care Team Providers Care Finger Lift Operator Name Role Phone Priyank Zepeda MD Primary Care Provider [phone] Encounter Details Date Type Department Care Team (Late st Contact Info) Description 10/03/2023 Hospital Follow-up Call [facility] Cardiovascular Care Unit [address] [place] [address] Chelsea Bishop RN Social History Tobacco Use Types Packs/Day Years Used Date Smoking Tobacco: Never [facility] Utilities Answer Date Recorded In the past 12 months has e electric, gas, oil, or water [employer] threatened to shut off services in your [...] any time in the past 12 m [facility], were you homeless or living in a fpc (including now)? No 09/28/2023 Comments Unknown Sex [...] on filedocumented in this encounter Care Teams Finger Lift Operator Relationship Specialty Start Date End Date Priyank Zepeda MD [address] [place] [address] PCP - General INTERNAL MEDICINE 09/19/19 documented as of this encounter
--- OUTSIDE RECORDS SUMMARY | 2024-07-28 02:47 | XMS_ITS | Clinical Summary ---
Author Organization [facility] Address [address] [place] [address] Care Team Providers Care Information Systems Audit Manager Name Role Phone Priyank Zepeda MD Primary Care Provider [phone] Allergies Active Allergy Reactions Criticality Noted Date [...] Packs/Day Years Used Date Smoking Tobacco: Never [facility] [employer] Answer Date Recorded In the past 12 months has e [employer], [employer], oil, or water [employer] threatened to shut off services in your [...] any time in the past [address] [facility], were you homeless or living in a chcf (including now)? No 11/17/2023 Comments Unknown Sex [...] Most Recently Relevant to Health Maintenance Insurance [employer] Advance Directives * Full Code (Latest Code Status on File) Date Activated Date Inactivated Comments 11/17/2023 1:12 AM 11/18/2023 5:01 PM * Full Code Date Activated Date Inactivated Comments 09/28/2023 1:27 AM 10/02/2023 3:59 PM Care Teams Information Systems Audit Manager Relationship Specialty Start Date End Date Priyank Zepeda MD [address] [place] [address] PCP - General INTERNAL MEDICINE 09/19/19
--- OUTSIDE RECORDS SUMMARY | 2024-07-28 02:47 | XMS_ITS | Encounter Summary ---
Author Organization [facility] Address [address] [place] [address] Phone Care Team Providers Care Choir Accompanist Name Role Phone Priyank Zepeda MD Primary Care Provider [phone] Encounter Details Date Type Department Care Team (Late Contact Info) Description 12/06/2019 Orders Only [facility] [address] [facility] [address] [place] [address] Kristofer Ortiz MD [address] [facility] [facility] [address] [place] [address] Chronic kidney disease stage 3 [...] Description 10/22/2024 10:45 AM CDT Office Visit [facility] [address] [facility] [facility] [address] [place] [address] Kristofer Ortiz MD [address] [place] [address] [address] documented as of this encounter Visit Diagnoses Diagnosis Chronic kidney disease stage 3 (HCC) documented in this encounter Care Teams Choir Accompanist Relationship Specialty Start Date End Date Priyank Zepeda MD [address] [place] [address] PCP - General Internal Medicine 05/17/19 documented as of this encounter
--- OUTSIDE RECORDS SUMMARY | 2024-07-28 02:47 | XMS_ITS | Encounter Summary ---
Author Organization [facility] Address [address] [facility] [address] [place] [address] Phone Care Team Providers Care Inserter Promotional Item Name Role Phone Priyank Zepeda MD Primary Care Provider [phone] Encounter Details Date Type Department Care Team (Late Contact Info) Description 01/03/2020 Orders Only [facility] [address] [facility] [address] [place] [address] Kristofer Ortiz MD [address] [facility] [address] [place] [address] Chronic kidney disease stage 3 [...] Description 10/22/2024 10:45 AM CDT Office Visit [facility] [address] [facility] [address] [place] [address] Kristofer Ortiz MD [address] [place] [address] [address] documented as of this encounter Visit Diagnoses Diagnosis Chronic kidney disease stage 3 (HCC) documented in this encounter Care Teams Inserter Promotional Item Relationship Specialty Start Date End Date Priyank Zepeda MD [address] [place] [address] PCP - General Internal Medicine 05/17/19 documented as of this encounter
--- OUTSIDE RECORDS SUMMARY | 2024-07-28 02:47 | XMS_ITS | Clinical Summary ---
Author Organization [facility] Facility Address [address] [address] Care Team Providers Care Building Illuminating Engineer Name Role Phone Priyank Zepeda MD Primary Care Provider [phone] Allergies Active Allergy Reactions Criticality Noted Date [...] 2 (two) times a day Active multivitamin-iro l-eiicdxvz-vmusj acid (CENTRUM) chewable tablet Chew 1 tablet [...] in the evening. Active ergocalciferol 1.25 MG (11305 UT) capsule Take 50,000 Units by mouth [...] Department Care Team Description 05/22/2024 Documentation Only [facility] [address] [facility] [address] [place] [address] Kristofer Ortiz MD 04/29/2024 11:00 AM PLASTIC TILE SETTER Office Visit [facility] [address] [place] [address] Kristofer Ortiz MD Stage 3a chronic kidney [...] CDT Respiratory Rate 18 05/15/2018 11:00 AM PLASTIC TILE SETTER Oxygen Saturation 96% 01/23/2024 1:26 PM CDT Inhaled Oxygen Concentration - - Weight 77.6 kg (171 lb) 01/23/2024 1:26 PM CDT Height 165.1 cm (5' 5 ) 01/23/2024 1:26 PM CDT Body Mass Index 28.46 01/23/2024 1:26 PM CDT Plan of Treatment Upcoming Encounters Date Type Department Care Team (Late st Contact Info) Description 10/22/2024 10:45 AM CDT Office Visit [facility] 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
--- NOTE | 2024-07-28 03:01 | ED.GIBLEED ---
HPI - GI Bleed General Chief complaint: GI Bleed <Joshua Almendarez MD - Last Filed: 07/28/24 06:59> Stated complaint: blood in stool <Joshua Almendarez MD - Last Filed: 07/28/24 06:59> Time Seen by Provider: 07/28/24 01:54 <Joshua Almendarez MD - Last Filed: 07/28/24 06:59> History of Present Illness HPI Narrative: Patient returns to the emergency department for the 2nd time in 24 hours. She was given instructions to return if she has more bleeding or feels dizzy or short of breath. She reports that she had approximately 4 additional episodes of bloody stools these were more melanous compared to the bright red blood that she had before and she does in fact show pictures on her phone of additional bloody stools though it is somewhat difficult to estimate the volume of blood from the photos on her phone. the patient has continued to have bloody bowel movements after arrival in the emergency department. She otherwise denies new or different fever, chills, nausea, vomiting. She does endorse some dizziness and weakness. <Joshua Almendarez MD - Last Filed: 07/28/24 06:59> Related Data Home medications: Home Medications ?Medication ?Instructions ?Recorded ?Confirmed ?Last Taken ?Type amitriptyline 10 mg tablet 10 mg PO BID 10/24/19 02/27/24 02/27/24 History fluoxetine 40 mg capsule 40 mg PO BID 10/24/19 02/27/24 02/27/24 History metoprolol succinate 50 mg 50 mg PO DAILY 10/24/19 02/27/24 02/27/24 History tablet,extended release 24 hr potassium chloride 20 mEq 20 meq PO BID 10/24/19 02/27/24 02/27/24 History tablet,extended release(part/cryst) cyanocobalamin (vitamin B-12) 2,500 mcg PO DAILY 02/15/22 02/27/24 02/27/24 History beta carotene 30 mg capsule 30 mg PO DAILY 02/25/22 02/27/24 02/27/24 History sodium bicarbonate 650 mg tablet See Rx Instructions .Route .COMPLEX 07/15/22 02/27/24 02/27/24 History calcium citrate 250 mg PO TID 0402/27/24 02/27/24 History ergocalciferol (vitamin D2) 1,250 1,250 mcg PO WEEKLY 09/27/23 02/27/24 02/26/24 History mcg (50,000 unit) capsule (Vitamin D2) calcitriol 0.5 mcg capsule See Rx Instructions .Route .COMPLEX 12/25/23 02/27/24 02/27/24 History calcium carbonate (Tums) 200 mg PO BID 12/25/23 02/27/24 02/27/24 History pantoprazole 40 mg tablet,delayed 40 mg PO BID 12/25/23 02/27/24 02/27/24 History release ferrous sulfate 325 mg (65 mg 325 mg PO TID 02/06/24 02/27/24 02/27/24 History iron) tablet (FeroSul) albuterol sulfate 90 mcg/actuation inhalation 07/27/24 Unknown History aerosol inhaler alendronate 10 mg tablet mg PO 07/27/24 Unknown History apixaban 5 mg tablet (Eliquis) mg PO BID 07/27/24 Unknown History hydroxyzine HCl 25 mg tablet mg 07/27/24 Unknown History levothyroxine 125 mcg tablet mcg 07/27/24 Unknown History kuucatsb-opd-ylius acid 0.4 1 tablet PO DAILY 07/27/24 Unknown History mg-lycopene 300 mcg-lutein 250 mcg tablet (Adults 50 Plus) <Joshua Almendarez MD - Last Filed: 07/28/24 06:59> Allergies/Adverse reactions: Allergies Allergy/AdvReac Type Severity Reaction Status Date / Time ciprofloxacin (From Cipro) Allergy Other Verified 07/27/24 08:20 <Joshua Almendarez MD - Last Filed: 07/28/24 06:59> [facility]LY [facility] Past Medical History Medical History: Medical History Bradycardia HTN (hypertension) Hyperparathyroidism Hypothyroidism Renal tubular acidosis Trichotillomania <Joshua Almendarez MD - Last Filed: 07/28/24 06:59> Surgical History Surgical History: Surgical History H/O gastric bypass 2002 in [place] - laparoscopic duodenal switch procedure H/O knee surgery H/O parathyroidectomy History of colon surgery 02/15/22 Open right hemicolectomy with ileocolic anastomosis History of colonoscopy with polypectomy May 2021 with benign polypectomy History of extraction of renal calculus History of laparoscopic appendectomy History of laparoscopic cholecystectomy cholecystectomy during her laparoscopic gastric surgery <Joshua Almendarez MD - Last Filed: 07/28/24 06:59> Family History Family History: Family History Father Asthma Hypertension Mother Breast cancer Sibling Diabetes mellitus Hypertension Grandparent Cancer Grandparent Diabetes mellitus Cancer Other No pertinent family history <Joshua Almendarez MD - Last Filed: 07/28/24 06:59> Social History Social History: Social History Smoking status: Never smoker Alcohol intake: never Substance use: never Substance use type: does not use Other substance usage details: none Do You Feel Safe in your Home?: Yes Lack of Transportation: No Lack of Food: Never True Current Housing: I Have Housing Concerned About Future Housing: No Difficulty Paying Gas/Electric Bills: No Difficulty Paying for Meds: No Currently Unemployed: No Education: Decline to Answer Difficulty w/ Childcare or Family Care: No Occupation/Education: other Additional occupation/education comments: on disability Spiritual care concerns: No <Joshua Almendarez MD - Last Filed: 07/28/24 06:59> Exam Narrative: GEN: Awake, alert, and appropriate to situation. no apparent distress is somewhat pale. HEENT: No rhinorrhea noted, mucous membranes moist. No scleral icterus or conjunctival injection. CV: Normal rate, regular rhythm, S1S2 no M/G/R. 2+ distal pulses all extremities. No peripheral edema noted. PULM: Non-labored respiration. Clear to auscultation bilaterally. No wheezes, rales, rhonchi. GI: Abdomen soft, non -tender to palpation. No rigidity, distention or guarding.? Large umbilical hernia unchanged from previous exam. NEURO: Normal speech. No lateralizing or focal deficits noted. patient with multiple photos of bloody bowel movements on her phone <Joshua Almendarez MD - Last Filed: 07/28/24 06:59> Course Course Emergency Course: 0658 - Calls to multiple facilities for transport awaiting return calls <Joshua Almendarez MD - Last Filed: 07/28/24 06:59> Vital Signs Vital signs: Vital Signs Temperature 37.0 C 07/28/24 06:54 Pulse Rate 81 07/28/24 06:54 Respiratory Rate 16 07/28/24 06:54 Blood Pressure 127/84 07/28/24 06:54 Pulse Oximetry 97 07/28/24 06:54 Oxygen Delivery Room Air 07/28/24 06:54 Temperature 36.6 C 07/28/24 07:20 Pulse Rate 85 07/28/24 07:20 Respiratory Rate 16 07/28/24 07:20 Blood Pressure 108/62 07/28/24 07:20 Pulse Oximetry 97 07/28/24 07:20 Oxygen Delivery Room Air 07/28/24 07:20 <Joshua Almendarez MD - Last Filed: 07/28/24 06:59> Vital Signs Temperature 37.0 C 07/28/24 06:54 Pulse Rate 81 07/28/24 06:54 Respiratory Rate 16 07/28/24 06:54 Blood Pressure 127/84 07/28/24 06:54 Pulse Oximetry 97 07/28/24 06:54 Oxygen Delivery Room Air 07/28/24 06:54 Temperature 36.6 C 07/28/24 07:20 Pulse Rate 85 07/28/24 07:20 Respiratory Rate 16 07/28/24 07:20 Blood Pressure 108/62 07/28/24 07:20 Pulse Oximetry 97 07/28/24 07:20 Oxygen Delivery Room Air 07/28/24 07:20 <Shahriar Doe MD - Last Filed: 07/28/24 09:36> MDM - GI Bleed MDM Narrative Medical decision making narrative: Patient was placed in Room #:? 3 Independent Historian: the patient External Source Review: past medical records Differential diagnosis includes but not limited to:? bleeding hemorrhoids, bleeding diverticula, colitis, other GI bleeding related to past surgical history Medications were Reviewed: home medications Independently Interpreted by me: labs Medications, treatment, ED course: patient is brought back into the emergency room and we repeated her CBC which shows a stable hemoglobin within the margin of lab errors but does show a big increase in her white cell count. CT abdomen pelvis was ordered which shows diffuse colonic wall thickening which likely reflects walters colitis. She is also noted to have cirrhosis with evidence of portal hypertension and varices. patient was started on daily azithromycin for treatment of her bloody diarrhea. She is allergic to fluoroquinolones otherwise would of likely used levofloxacin. Social situation impacting patients care: Patient lives alone in it but independently in the community Shared decision making:? patient will need transfer to a higher level of care for evaluation by Gastroenterology Accepting physician: DISCHARGE DIAGNOSIS: DISPOSITION: CONDITION AT DISCHARGE:? <Joshua Almendarez MD - Last Filed: 07/28/24 06:59> Patient was placed in Room #:? 3 Independent Historian: the patient External Source Review: past medical records Differential diagnosis includes but not limited to:? bleeding hemorrhoids, bleeding diverticula, colitis, other GI bleeding related to past surgical history Medications were Reviewed: home medications Independently Interpreted by me: labs Medications, treatment, ED course: patient is brought back into the emergency room and we repeated her CBC which shows a stable hemoglobin within the margin of lab errors but does show a big increase in her white cell count. CT abdomen pelvis was ordered which shows diffuse colonic wall thickening which likely reflects walters colitis. She is also noted to have cirrhosis with evidence of portal hypertension and varices. patient was started on daily azithromycin for treatment of her bloody diarrhea. She is allergic to fluoroquinolones otherwise would of likely used levofloxacin. Social situation impacting patients care: Patient lives alone in it but independently in the community Shared decision making:? patient will need transfer to a higher level of care for evaluation by Gastroenterology Accepting physician: DISCHARGE DIAGNOSIS: DISPOSITION: CONDITION AT DISCHARGE:? discussed case with patient that she is being transferred for multiple findings on the CT scan and elevated WBC. She has GI bleeding as well. Gastroenterology evaluation transfer at this time. She is on Eliquis and iron. <Shahriar Doe MD - Last Filed: 07/28/24 09:36> Lab Data Result diagrams: 07/28/24 03:05 07/28/24 03:04 <Joshua Almendarez MD - Last Filed: 07/28/24 06:59> Labs: Lab Results 07/28/24 07/28/24 07/28/24 Range/Units 03:04 03:05 08:59 WBC 21.4 H* (4.8-10.8) K/mm3 RBC 4.43 (4.20-5.40) M/mm3 Hgb 13.2 (11.7-13.8) g/dL Hct 39.9 (35.0-42.0) % MCV 90.1 (78.0-102.0) fL MCH 29.8 (27.0-31.0) pg MCHC 33.1 (32-36) g/dL RDW 17.0 H (11.6-14.4) % Plt Count 183 (150-420) K/mm3 MPV 9.8 (9.2-11.8) fl Sodium 138 (136-145) mmol/L Potassium 3.2 L (3.5-5.1) mmol/L Chloride 106 (98-108) mmol/L Carbon Dioxide 15 L (21-32) mmol/L Anion Gap 17 H (4-12) mmol/L BUN 16 (7-18) mg/dL Creatinine 1.09 H (0.55-1.02) mg/dL Estim Creat Clear Calc Not Reportable Estimated GFR 50 L (59 - ) Glucose 114 H (70-99) mg/dL Calculated Osmolality 288 (285-295) mOsm/kg Lactic Acid Pending Calcium 7.5 L (8.5-10.1) mg/dL <Joshua Almendarez MD - Last Filed: 07/28/24 06:59> Lab Results 07/28/24 07/28/24 07/28/24 Range/Units 03:04 03:05 08:59 WBC 21.4 H* (4.8-10.8) K/mm3 RBC 4.43 (4.20-5.40) M/mm3 Hgb 13.2 (11.7-13.8) g/dL Hct 39.9 (35.0-42.0) % MCV 90.1 (78.0-102.0) fL MCH 29.8 (27.0-31.0) pg MCHC 33.1 (32-36) g/dL RDW 17.0 H (11.6-14.4) % Plt Count 183 (150-420) K/mm3 MPV 9.8 (9.2-11.8) fl Sodium 138 (136-145) mmol/L Potassium 3.2 L (3.5-5.1) mmol/L Chloride 106 (98-108) mmol/L Carbon Dioxide 15 L (21-32) mmol/L Anion Gap 17 H (4-12) mmol/L BUN 16 (7-18) mg/dL Creatinine 1.09 H (0.55-1.02) mg/dL Estim Creat Clear Calc Not Reportable Estimated GFR 50 L (59 - ) Glucose 114 H (70-99) mg/dL Calculated Osmolality 288 (285-295) mOsm/kg Lactic Acid Pending Calcium 7.5 L (8.5-10.1) mg/dL <Shahriar Doe MD - Last Filed: 07/28/24 09:36> Imaging Data Radiologist's impression: CT scan of the abdomen and pelvis shows IMPRESSION: 1. Ventral hernia containing nonobstructed small bowel. 2. Enterocolitis. 3. Small volume of ascites. 4. 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 <Shahriar Doe MD - Last Filed: 07/28/24 09:36> Discharge Plan Discharge Clinical Impression: Colitis, Acute GI bleeding <Joshua Almendarez MD - Last Filed: 07/28/24 06:59> Patient Disposition: Acute Care Hospital <Joshua Almendarez MD - Last Filed: 07/28/24 06:59> Condition: Stable <Joshua Almendarez MD - Last Filed: 07/28/24 06:59> Patient Language: Tanzanian <Joshua Almendarez MD - Last Filed: 07/28/24 06:59> Prescriptions: No Action cyanocobalamin (vitamin B-12) 2,500 mcg PO DAILY ergocalciferol (vitamin D2) [Vitamin D2] 1,250 mcg (50,000 unit) Capsule 1,250 mcg PO WEEKLY calcium citrate 250 mg calcium Tablet 250 mg PO TID fluoxetine 40 mg capsule 40 mg PO BID metoprolol succinate 50 mg tablet extended release 24 hr 50 mg PO DAILY potassium chloride 20 mEq tablet,ER particles/crystals 20 meq PO BID amitriptyline 10 mg tablet 10 mg PO BID calcitriol 0.5 mcg capsule See Rx Instructions .ROUTE .COMPLEX Rx Instructions: Take 2 capsules 3 x's daily ferrous sulfate [FeroSul] 325 mg (65 mg iron) tablet 325 mg PO TID alendronate 10 mg tablet PO levothyroxine 125 mcg tablet hydroxyzine HCl 25 mg tablet albuterol sulfate 90 mcg/actuation HFA aerosol inhaler INHALATION Eliquis 5 mg tablet PO BID Adults 50 Plus 0.4 mg-300 mcg- 250 mcg tablet 1 tablet PO DAILY ondansetron 4 mg tablet,disintegrating 4 mg PO Q8H Qty: 7 0RF sodium bicarbonate 650 mg tablet See Rx Instructions .ROUTE .COMPLEX Rx Instructions: take 4 tabs in morning, 5 in afternoon, and 4 at HS beta carotene 30 mg capsule 30 mg PO DAILY pantoprazole 40 mg tablet,delayed release (DR/EC) 40 mg PO BID calcium carbonate [Tums] 200 mg calcium (500 mg) tablet,chewable 200 mg PO BID <Joshua Almendarez MD - Last Filed: 07/28/24 06:59> Follow-up/Referrals: Priyank Zepeda MD [Primary Care Provider] - <Joshua Almendarez MD - Last Filed: 07/28/24 06:59> Time of Disposition: 08:04 <Joshua Almendarez MD - Last Filed: 07/28/24 06:59> 08:04 <Shahriar Doe MD - Last Filed: 07/28/24 09:36>
[2024-07-28 03:10] LABS: Hematocrit 39.9 % (35.0-42.0); Hemoglobin 13.2 g/dL (11.7-13.8); Mean Corpuscular HGB Conc 33.1 g/dL (32-36); Mean Corpuscular Hemoglobin 29.8 pg (27.0-31.0); Mean Corpuscular Volume 90.1 fL (78.0-102.0); Mean Platelet Volume 9.8 fl (9.2-11.8); Platelet Count Result 183 K/mm3 (150-420); Red Blood Count 4.43 M/mm3 (4.20-5.40)
[2024-07-28 03:12] LABS: White Blood Count 21.4 K/mm3 (4.8-10.8)
[2024-07-28 03:54] LABS: Anion Gap 17 mmol/L (4-12); Blood Urea Nitrogen 16 mg/dL (7-18); Calcium 7.5 mg/dL (8.5-10.1); Carbon Dioxide 15 mmol/L (21-32); Chloride 106 mmol/L (98-108); Estimated Glomerular Filt Rate 50; Glucose 114 mg/dL (70-99); Osmolality Calculated 288 mOsm/kg (285-295); Potassium 3.2 mmol/L (3.5-5.1); Sodium 138 mmol/L (136-145)
--- NOTE | 2024-07-28 03:58 | PC.NURSE ---
NOTIFIED [facility] WITH RADIOLOGY THAT BMP RESULTS HAVE POSTED
--- NOTE | 2024-07-28 04:02 | PC.NURSE ---
PATIENT TRANSPORTED TO CT VIA STRETCHER
--- NOTE | 2024-07-28 05:00 | PC.NURSE ---
RESTING QUIETLY ON STRETCHER. WAITING ON CT RESULTS. DENIES ANY NEEDS AT THIS TIME. CALL LIGHT IN REACH
--- NOTE | 2024-07-28 05:52 | PC.NURSE ---
APPEARS TO BE SLEEPING. RESP EVEN AND UNLABORED. CURRENTLY WAITING ON CT RESULTS. CALL LIGHT IN REACH
--- NOTE | 2024-07-28 07:03 | PC.NURSE ---
REPORT GIVEN TO MIYA HINDS
[2024-07-28] MEDS: HYDROcodone/acetaminophen (*CRX) 5-325 MG TABLET 1 TAB PO (09:40)
[2024-07-28 09:46] LABS: Lactic Acid Reflex 0.9 mmol/L (0.4-2.0)
== END 2024-07-28 13:10 | disposition short-term general hospital (02) ==
PROVIDERS: Family Medicine; Emergency Provider Emergency Medicine; PCP Internal Medicine
DX: K52.9 Noninfective gastroenteritis and colitis, unspecified (principal); K92.2 Gastrointestinal hemorrhage, unspecified; I10 Essential (primary) hypertension; E03.9 Hypothyroidism, unspecified; Z79.01 Long term (current) use of anticoagulants; Z79.899 Other long term (current) drug therapy
CPT/HCPCS: 36415; 74177; 80048; 83605; 85027; 96365; 96366; 99285; A9270; J0456; Q9967

== ENCOUNTER 2024-08-13 18:58 | Observation (INO) | payer OTHER, SELFPAY ==
[2024-08-13] VITALS (34 sets, daily range): BP systolic 92–122; BP diastolic 54–103; PULSE 66–81; RESP 14–24; TEMP 36.3; O2SAT 96–100
--- NOTE | ~2024-08-13 | XR_ITS ---
EXAMINATION: XR chest 1V portable DATE: 08/13/2024 20:06 INDICATION: Weakness. TECHNIQUE: A single frontal view of the chest was obtained. COMPARISON: Chest 2 views 07/19/2024 FINDINGS: The lung volumes are small. There is no pneumonia, pleural effusion, or pneumothorax. The h eart size is normal. Surgical clips in the right upper quadrant are likely from cholecystectomy. IMPRESSION: 1. No acute cardiopulmonary disease. Reviewed, dictated and finalized at location A.
--- OUTSIDE RECORDS SUMMARY | 2024-08-13 19:08 | XMS_ITS | Clinical Summary ---
Author Organization [facility] Address [address] [address] Phone Care Team Providers Care Retail Field Representative Name Role Phone Priyank Zepeda MD Primary Care Provider [phone] Allergies No known active allergies Encounters Date Type Department Care Team Description 08/13/2024 2:30 PM CDT [facility] [address] [place] [address] Eloisa Ruiz, PT PT - [facility] START OF CARE 08/13/2024 Plan of Care Documentation [facility] [address] [place], [place] [id number] from Last 3 Months Social History Tobacco Use Types Packs/Day Years Used Date Smoking Tobacco: Never Assessed Comments Unknown Sex and Gender Information Value Date Recorded Sex Assigned at Not on file Legal Sex Female 11:40 PM CDT Gender Identity Not on file Sexual Orientation Not on file Last Filed Vital Signs Vital Sign Reading Time Taken Comments Blood Pressure 114/62 08/13/2024 2:28 PM CDT Pulse 62 08/13/2024 2:28 PM CDT Temperature 36.5 C (97.7 F) 08/13/2024 2:28 PM CDT Respiratory Rate 16 08/13/2024 2:28 PM CDT Oxygen Saturation 97% 08/13/2024 2:28 PM CDT Inhaled Oxygen Concentration - - Weight - - Height 165.1 cm (5' 5 ) 08/13/2024 2:28 PM CDT Body Mass Index - - Plan of Treatment Upcoming Encounters Date Type Department Care Team (Late st Contact Info) Description 08/15/2024 1:00 AM CDT Home Care Visit [address] [address] Viola Richard, CLINICAL SUPERVISOR [place] 08/16/2024 1:00 AM CDT Home Care Visit [address] [address] Moni Mendoza OT 08/20/2024 1:00 AM CDT Home Care Visit [address] [address] Viola Ricahrd, CLINICAL SUPERVISOR [place] 08/22/2024 1:00 AM CDT Home Care Visit [facility] [address] Viola Richard, CLINICAL SUPERVISOR [place] 08/26/2024 1:00 AM CDT Home Care Visit [facility] [address] Viola Richard, CLINICAL SUPERVISOR [place] 08/28/2024 1:00 AM CDT Home Care Visit [address] [address] Viola Richard, CLINICAL SUPERVISOR [place] 09/02/2024 1:00 AM CDT Home Care Visit [address] [address] Eloisa Ruiz, PT 09/04/2024 1:00 AM CDT Home Care Visit [facility] [address] Viola Richard, CLINICAL SUPERVISOR [place] Health Maintenance Due Date Last Done Comments DEXA Bone Density 1959 Hepatitis C Virus (HCV) Screening 1959 Pap Smear 1980 Cervical Cancer Screening (CCS) 1989 HPV/Cotest 1989 Colonoscopy 2004 Colorectal Cancer Screening 2004 Cologuard 2009 Immunochemical Fecal Occult Blood 2009 Mammogram 11/18/2021 11/18/2020, 11/03, 11/01/2019 SARS-COV-2 Immunization ( season) 2024 03/19/2024, 03/27/2023, 03/06/2022, Additional history exists TdaP Immunization Completed 12/20/2015 Respiratory Syncytial Virus (RSV) Immunization (Adult) Completed 04/17/2023 Zoster Immunization Completed 10/09/2023, Influenza Immunization Completed , 03/27/2023, 03/06/2022, Additional history exists Pneumococcal Immunization (50+ years) Completed 03/19/2024 Hepatitis B Immunization Aged Out No longer eligible based on patient's age to complete this topic Meningococcal Immunization (ACWY) Aged Out No longer eligible based on patient's age to complete this topic Rotavirus Immunization Aged Out No lo nger eligible based on patient's age to complete this topic Insurance MEDICAID [employer] Care Teams Retail Field Representative Relationship Specialty Start Date End Date Priyank Zepeda MD [address] [place] [address] PCP - General Internal Medicine 08/08/24
--- OUTSIDE RECORDS SUMMARY | 2024-08-13 19:08 | XMS_ITS | Clinical Summary ---
Author Organization [facility] Facility Address [address] [address] Care Team Providers Care Campus Recruiting Intern Name Role Phone Priyank Zepeda MD Primary Care Provider [phone] Allergies Active Allergy Reactions Criticality Noted Date [...] Active sodium bicarbonate 650 MG tablet Take 650 mg by mouth in the morning and 650 mg in the evening and 650 mg before bedtime. Active levothyroxine (SYNTHROID, LEVOTHROID) 125 MCG tablet Take 50 mcg by mouth 1 (one) time each day Take 0.5 tab daily Active BETA CAROTENE PO Take 7,500 mg by mouth 1 (one) time each day Active FLUoxetine (PROzac) 40 MG capsule Take 40 mg by mouth 2 (two) times a day Active calcitriol (ROCALTROL) 0.25 MCG capsule Take 1 mcg by mouth in the morning and 1 mcg at noon and 1 mcg in the evening. 0.5 mcg in am, 0.25 mcg in the north. Active apixaban (Eliquis) 5 MG tablet Take 5 mg by mouth in the morning and 5 mg in the evening. Active ferrous sulfate 325 (65 Fe) MG EC tablet Take 325 mg by mouth 1 (one) time each day with breakfast Do not crush, chew, or split. Active pantoprazole (PROTONIX) 40 MG EC tablet Take 40 mg by mouth in the morning and 40 mg in the evening. Do not crush, chew, or split.. Active hydrOXYzine (ATARAX) 10 MG tablet Take 10 mg by mouth every 8 (eight) hours if needed for itching Active calamine lotion Apply topically if needed for itching Active folic acid (FOLVITE) 1 MG tablet Take 1 mg by mouth in the morning. 5 Active furosemide (LASIX) 40 MG tablet Take 40 mg by mouth in the morning. 5 Active pancrelipase, Izp-Xpqv-Wcjh, (CREON) 43314-01159 units capsule Take 1 capsule by mouth in the morning and 1 capsule at noon and 1 capsule in the evening. Take with meals. 5 Active Cholecalciferol (Vitamin D3) 1.25 MG (36865 UT) capsule Take 50,000 Units by mouth in the morning and 50,000 Units in the evening. Active multivitamin-ir hp-xnmohlos-fbl ic acid (CENTRUM) chewable tablet Chew 1 tablet in the morning and 1 tablet in the evening. 08/10/19 25 Discontinu ed(Therapy completed) metoprolol succinate XL (TOPROL XL) 50 MG 24 hr tablet Take 1 tablet (50 mg total) by mouth 1 (one) time each day Do not crush or chew 30 tablet 4 08/10/19 25 Discontinu ed(Therapy completed) potassium chloride (KLOR-CON M20) 20 MEQ CR tablet Take 1 tablet (20 mEq total) by mouth in the morning and 1 tablet (20 mEq total) in the evening. 60 tablet 4 08/10/19 25 Discontinu ed(Therapy completed) ergocalciferol 1.25 MG (93128 UT) capsule Take 50,000 Units by mouth in the morning. 08/10/19 25 Discontinu ed(Therapy completed) predniSONE (DELTASONE) 10 MG tablet Take 10 mg by mouth 1 (one) time each day 03/07/20 25 Discontinu ed(Therapy completed) Active Problems Problem Noted Date Diagnosed Date Acidosis 05/09/2019 Chronic kidney disease stage 2 05/09/2019 Essential hypertension 05/09/2019 Primary hyperparathyroidism 05/09/2019 Encounters Date Type Department Care Team Description 05/22/2024 Documentation Only [facility]. [address] [place] [address] Kristofer Ortiz MD from Last 3 Months [...] CDT Respiratory Rate 18 05/15/2018 11:00 AM ASSEMBLY LEADER Oxygen Saturation 96% 01/23/2024 1:26 PM CDT Inhaled Oxygen Concentration - - Weight 77.6 kg (171 lb) 01/23/2024 1:26 PM CDT Height 165.1 cm (5' 5 ) 01/23/2024 1:26 PM CDT Body Mass Index 28.46 01/23/2024 1:26 PM CDT Plan of Treatment Upcoming Encounters Date Type Department Care Team (Late st Contact Info) Description 10/22/2024 10:45 AM CDT Office Visit [facility] [address] [place] [address] Kristofer Ortiz MD [address] [place] [address] Health Maintenance Due Date Last Done Comments Breast Cancer Screening 1960 Pneumococcal Vaccine: 65+ Years (1 of 2 - PCV) 1965 Pneumococcal Vaccine: Pediatrics (0 to 5 Years) and At-Risk Patients (6 to 64 Years) (1 of 2 - PCV) 1965 Colorectal Cancer Screening: Colonoscopy Discontinued 12/14/2023, 11/04/2021 Influenza Vaccine Completed 03/19/2024, , 03/06/2022, Additional history exists Hepatitis B Vaccine Aged Out No longe r eligible based on patient's age to complete this topic Insurance [facility] Advance Directives Documents on File Type Date Recorded 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
--- OUTSIDE RECORDS SUMMARY | 2024-08-13 19:08 | XMS_ITS | Data Portability ---
Author Organization [facility], [address] [place] [address] Neurology ([place]) Address [address] [address] Care Team Providers Care Lung Splitter Name Role Phone KIERAN CALL Primary Care Provider Assessment Encounter Date Assessment Date Assessment LastModified by Organization Details LastModified Time 10/17/2023 10/17/2023 - Keep already scheduled appointment with GI -secure an appointment with hematology -follow up with your PCP if needed -Call this office with any questions or concerns [email or web address] Not available 10/17/2023 14:57:46 Plan of Treatment [...] city possi ble) ----- 53.3 Not Available [facility] - All Sites [address] [place] [address] [address], [place], [address], 06/05/2024 01:21:09 10/02/19 24 10/02/2023 PTH (para [...] anni rable . ----- 182.5 Not Available [facility] [address], [address], 06/05/2024 01:21:09 10/02/19 24 10/02/2023 phosp horus , serum or plasm a phosphorus 2 mg/dL 2.5-4. 9 low Not Available Test [facility] [address] [place], [address], 06/05/2024 01:21:08 10/02/19 24 10/02/2023 BMP, blood sodium 140 mmol/ L 136-14 5 Not Available [facility] [address], [place], [address], 06/05/2024 01:21:02 10/02/19 24 10/02/2023 BMP, blood potassium 2.9 mmol/ L 3.5-5. 1 low criti benjamin resul t(s) dial d to and read back by: vicky blanton at: 16:07 :22 10/01 by assp. ----- 2.9 Not Available [facility] [address], [place], [address], 06/05/2024 01:21:02 10/02/19 24 10/02/2023 BMP, blood chloride 110 mmol/ L 98-107 high Not Available [facility] [address], [place], [address], 06/05/2024 01:21:02 10/02/19 24 10/02/2023 BMP, blood CO2 24.9 mmol/ L 21.0-3 2.0 Not Available [facility] [address], [place], [address], 06/05/2024 01:21:02 10/02/19 24 10/02/2023 BMP, blood anion gap 5.1 mmol/ L 5.0-15 .0 Not Available [facility] [address] [facility] [address], [place], [address], 06/05/2024 01:21:02 10/02/19 24 10/02/2023 BMP, blood glucose 116 mg/dL 74-106 high Not Available [facility] [address], [place], [address], 06/05/2024 01:21:02 10/02/19 24 10/02/2023 BMP, blood BUN 11 mg/dL 7-18 Not Available [facility] [address], [place], [address], 06/05/2024 01:21:02 10/02/19 24 10/02/2023 BMP, blood creatinine 0.91 mg/dL 0.55-1 .02 Not Available [facility] [address], [place], [address], 06/05/2024 01:21:02 10/02/19 24 10/02/2023 BMP, blood calcium 7.8 mg/dL 8.5-10 .1 low Not Available [facility] [address] [facility] [address], [place], [address], 06/05/2024 01:21:02 10/02/19 24 10/02/2023 BMP, blood eGFR 70 mL/mi n/1.7 3_M2 >90 low Not Available [place] [address] [facility] [address], [place], [address], 06/05/2024 01:21:02 10/02/19 24 10/02/2023 BMP, blood calculated osmolality 290 mOsm/ kg refer ence range not estab lishe d ----- 290 Not Available [facility] [address], [place], [address], 06/05/2024 01:21:02 10/02/19 24 10/02/2023 BMP, blood [...] mL/mi n/1.7 3 m2 ----- Not Available [facility] [address], [place], [address], 06/05/2024 01:21:02 01/18/20 24 12/07/2022 imagi ng/di [...] Name and Address Organization Details Recorded Time 424679 adhesive tape environme nt,medica tion rash Not available Not available 07/03/20232013 66395 UNK React ion: Rash; Comme nt: Adhes messi Tape React ion Date: 27 Jul 2012 ; Not Available Not Available Not Available 055663 Cipro medicatio n Not available Not available Not available 07/03/20232013 88971 3 RxNorm Comme nt: React ion Date: 01 Jan 2013 ; Not Available Not Available Not Available 305416 succinylc holine chloride medicatio n Not available Not available Not available 07/03/20232015 3565 RxNorm Not Available Not Available Not Available Medications Name Sig Start Date Stop Date Status Note LastModified by Organization Details LastModified Time Prescription - New active Children[facility]S Program Coordinator: MEGHAN NIMESH (Audiology) , Sergey n Form [...] /min 123 mm[Hg] 74 mm[Hg] Tina cuello [facility] 4 14:41:31 Social History Question Answer [...] Do You Have A Medical Power Of Transition Coach? Yes [email or web address] Information not available 10/16/2023 What [...] eye surgery (?glaucoma) Medical History Condition Response Attention-deficit Hyperactivity Disorder N High Blood Pressure Y Thyroid Problems N COPD N Depression Y Anemia Y Diabetes N Anxiety Disorder Y Bleeding Disorder N Arthritis Y Hyperlipidemia N Cancer N Stroke N Asthma N Seizures N Heart Disease N Fibromyalgia N Osteoporosis Y Kidney Disease Y Gynecological HistoryNo gynecological history recorded. Obstetrics History GPAL:G 0 P 0 0 0 0 Past Encounters Encounter ID Performer Location Encounter Start Date Encounter Closed Date Diagnosis/Indication Diagnosis SNOMED-CT Code Diagnosis ICD10 Code Diagnosis Note [id number] DO Catia Melendrez [facility] ([place]) [address] [place] [address] 10/17/2023 14:31:01 10/18/2023 15:51:26 Hospital inpatient stay within past 30 days 1075731952 106 Z76.89 Health Concerns Section Related Observation LastModified by Organization Detmorteza ls LastModified Time None Recorded Concern Status LastModified by Organization Details LastModified Time None Recorded Advance Directives Directive Y: Payers Encounter Date Sequence Insurance Name Policy Number Policy Juares Covered Member ID Juares Member ID Guarantor Name 10/17/2023 1 [facility] ON OR AFTER 12/03/20 (MEDICAID REPLACEMENT - HMO) Louise Griffithjordin [id number] Louise Bailey Teresa Notes Date Note Type [...] appointment scheduled for November 01 with GI TABLE WORKER PACKAGER for consultation. She is eating and drinking well. She denies n/v. YULISSA MARTINEZ, BACTERIOLOGIST DAIRY-C [address] [place] [address], [id number], [facility] 10/17/2023 14:58:51 OBGyn Episode No OBEpisode recorded.
--- OUTSIDE RECORDS SUMMARY | 2024-08-13 19:08 | XMS_ITS | Encounter Summary ---
Author Organization [facility] Address [address] [place] [address] Phone Care Team Providers Care Receptionist Scheduler Name Role Phone Priyank Zepeda MD Primary Care Provider [phone] Encounter Details Date Type Department Care Team (Late Contact Info) Description 12/06/2019 Orders Only [facility]. [address] [place] [address] Kristofer Ortiz MD [address] [place] [address] Chronic kidney disease stage 3 [...] Description 10/22/2024 10:45 AM CDT Office Visit [facility] [address] [place] [address] Kristofer Ortiz MD [address] [place] [address] [address] documented as of this encounter Visit Diagnoses Diagnosis Chronic kidney disease stage 3 (HCC) documented in this encounter Care Teams Receptionist Scheduler Relationship Specialty Start Date End Date Priyank Zepeda MD [address] [place] [address] PCP - General Internal Medicine 05/17/19 documented as of this encounter
--- OUTSIDE RECORDS SUMMARY | 2024-08-13 19:08 | XMS_ITS | Encounter Summary ---
Author Organization [facility] Address [address] [place] [address] Phone Care Team Providers Care Surg Tech Name Role Phone Priyank Zepeda MD Primary Care Provider [phone] Encounter Details Date Type Department Care Team (Late Contact Info) Description 01/03/2020 Orders Only [facility] [address] [place] [address] Kristofer Ortiz MD [address] [place] [address] Chronic kidney disease stage 3 [...] Description 10/22/2024 10:45 AM CDT Office Visit [facility] [address] [place] [address] Kristofer Ortiz MD [address] [place] [address] [address] documented as of this encounter Visit Diagnoses Diagnosis Chronic kidney disease stage 3 (HCC) documented in this encounter Care Teams Surg Tech Relationship Specialty Start Date End Date Priyank Zepeda MD [address] [place] [address] PCP - General Internal Medicine 05/17/19 documented as of this encounter
--- OUTSIDE RECORDS SUMMARY | 2024-08-13 19:08 | XMS_ITS | Encounter Summary ---
Author Organization [facility] Address [address] [place] [address] Phone Care Team Providers Care Assembler Camper Name Role Phone Priyank Zepeda MD Primary Care Provider [phone] Encounter Details Date Type Department Care Team (Late st Contact Info) Description 08/13/2024 Plan of Care Documentation [address] [address] Social History Tobacco Use Types Packs/Day Years [...] 08/15/2024 1:00 AM CDT Home Care Visit [address] [address] Viola Richard, PANTRY GOODS WORKER [place] 08/16/2024 1:00 AM CDT Home Care Visit [address] [address] Moni Mendoza OT 08/20/2024 1:00 AM CDT Home Care Visit [address] [address] Viola Richard, [employer] [employer] [place] 08/22/2024 1:00 AM CDT Home Care Visit [address] [address] Viola Richard, [employer]TRY [employer] WORK[place] 08/26/2024 1:00 AM CD[facility] [address] [place] [address] Viola Richard, [employer] [place] 08/28/2024 1:00 AM CDT [facility] [address] [place] [address] Viola Richard, [employer] WORK[place] 09/02/2024 1:00 AM CDT [facility] [address] [place] [address] Eloisa Ruiz, PT 09/04/2024 1:00 AM CDT Home Care Visit [address] [address] Viola Richard, [employer]TRY [employer] WORKER [place] documented as of this encounter Visit Diagnoses Not on filedocumented in this encounter Care Teams Assembler Camper Relationship Specialty Start Date End Date Priyank Zepeda MD [address] [place] [address] PCP - General Internal Medicine 08/08/24 documented as of this encounter
--- OUTSIDE RECORDS SUMMARY | 2024-08-13 19:08 | XMS_ITS ---
Author Organization Unknown Address [address] [place] [phone] Phone Care Team Providers Care Accounting Assistant Name Role Phone GARFIELD Ashby Attending Unavailable [...] em Smoking History Never smoker (Never Smoked) [id number] SNOMED CT Sex Female Vital Signs Vital Sign Value Unit Chilton Value Chilton Unit Date/Time Recent/Initial? Code Code System Body Mass Index 30.45 kg/m2 11/13/2023 14:43 Initial 17888 -5 INC Systolic Blood Pressure 136 mm[Hg] 12/14/2023 08:17 Initial 8480- 6 LOINC Diastolic Blood Pressure 78 mm[Hg] 12/14/2023 08:17 Initial 8462- 4 INC Body Surface Area 1.95 m2 11/13/2023 14:43 Initial 3140- 1 LOINC Height 165.100 0 cm 65.00 in 11/13/2023 14:43 Initial 8302- 2 INC O2 Saturation 99 % 2023 08:17 Initial 36008 -5 INC Pulse 57.0 /min 12/14/2023 08:17 Initial 8867- 4 LOINC Respiration 20 /min 12/14/19 08:17 Initial 9279- 1 LOINC Temperature 36.2 Kait 97.1 F 12/14/19 24 08:17 Initial 8310- 5 LOINC Weight 83.01 kg 183.00 lbs 11/13/2023 14:43 Initial 87978 -7 [facility] Medications Medication Start Date End Date Route Frequency Dose Code Code System Medication Instructions Home Meds Vitamin B12 1000 MCG Sublingual Tablet 12/14/2023 Unknown SUBLINGUAL ONCE A DAY [address] 1000 MCG SUBLINGUAL ONCE A DAY Tums Extra Strength 750 MG Oral Tablet, Chewable 12/14/2023 Unknown ORAL NEEDED 750 MG 0139579 RxNorm TAKE 750 MG ORAL NEEDED Amitriptyline 10MG Oral Tablet 12/14/2023 Unknown ORAL TWICE A DAY 10 MILLIGRA MS 073275 RxNorm TAKE 10 MILLIGRAMS ORAL TWICE A DAY Calcitriol 0.5MCG Oral Capsule, Liquid Filled 12/14/2023 Unknown ORAL TWICE A DAY 2 CAPSULE 322681 RxNorm TAKE 2 CAPSULE ORAL TWICE A DAY Calcium Citrate Powder 12/14/[address] NOT APPLICABLE 1 unit(s) RxNorm 1 EACH ROUTE NOT APPLICABLE Eliquis 5MG Oral Tablet 12/14/2023 12/14/19 24 ORAL TWICE A DAY 5 MILLIGRA MS 1690563 RxNorm TAKE 5 MILLIGRAMS ORAL TWICE A DAY FLUoxetine 20MG/5ML Oral Solution 12/14/2023 Unknown ORAL TWICE A DAY 908039 RxNorm TAKE mL ORAL TWICE A DAY Iron 325MG Oral Tablet 12/14/2023 Unknown ORAL THREE TIMES A DAY 325 MILLIGRA MS 648267 RxNorm TAKE 325 MILLIGRAMS ORAL THREE TIMES A DAY Levothyroxine 125MCG Oral Tablet 12/14/2023 Unknown ORAL ONCE A DAY 0.5 TABLET 399352 RxNorm TAKE 0.5 TABLET ORAL ONCE A DAY Loratadine 10MG Oral Tablet 12/14/2023 Unknown ORAL NEEDED 10 MILLIGRA MS 304950 RxNorm TAKE 10 MILLIGRAMS ORAL NEEDED Metoprolol Succinate 50MG Oral Tablet, Extended Release 12/14/2023 Unknown ORAL ONCE A DAY 50 MILLIGRA MS 160347 RxNorm TAKE 50 MILLIGRAMS ORAL ONCE A DAY Potassium Chloride 20MEQ Oral Tablet, Extended Release 12/14/2023 Unknown ORAL TWICE A DAY 20 MEQ 6732583 RxNorm TAKE 20 MEQ ORAL TWICE A DAY Sodium Bicarbonate 650MG Oral Tablet 12/14/2023 Unknown ORAL THREE TIMES A DAY 650 MILLIGRA MS 183300 RxNorm TAKE 650 MILLIGRAMS ORAL THREE TIMES A DAY Tab-A-Ezio [id number]-807D U-6MCG Oral Tablet 12/14/2023 Unknown ORAL ONCE A DAY 1 unit(s) 872762 RxNorm TAKE 1 EACH ORAL ONCE A [...] Code Syste m Vocal cord nodule completed 69227751 SNOMEDC T Fracture of tibia completed 12585652 SNOMEDC T Volvulus completed 7132061 SNOMEDCT APPENDECTOMY completed 24632449 SNOMEDCT Removal of kidney stone completed 1556706 S NOMEDCT Anesthesia for lower intesti nal endoscopic procedures, endoscope introduce 12/14/2023 completed 80412 CPT Gastric bypass completed 334807433 SNOMEDCT History of parathyroidectomy completed 4057707 97297693 SNOMEDCT Colonoscopy, flexible; with biopsy, single or multiple 12/14/2023 completed 64526 CPT Problems Problem Start Date Resolved Date Status Code Code System CHRONIC KIDNEY DISEASE, STAG E 3A active 212867440 SNOMED-CT Allergies and Adverse Reactions Allergy Substance Reaction Severity Start Date Concern Status Code Code System ADHESIVE Itching (SNOMED-CT: 064188242) Active SUCCINYLCHOLINE CHLORIDE HARD TO WAKE UP (SNOMED-CT: null) Active 3565 RxNorm CIPRO REDNESS IV ONLY (SNOMED-CT: null) Mild Active 510184 RxNorm No Known Drug Allergies Active 967678647 SNOMED-CT Plan of Treatment Colonoscopy 12/14/2023 Encounters Encounter Diagnosis Start Date Code Code Sys tem Noninfective gastroenteritis and colitis, unspecified 12/14/2023 SNOMED-CT Personal Care Team Section Performer Name Performer Role Active Date Inactive KIERAN Gilbert PCP - Primary care physician 2024-04-16
--- OUTSIDE RECORDS SUMMARY | 2024-08-13 19:08 | XMS_ITS | Clinical Summary ---
Author Organization [facility] Address [address] [place] [address] Care Team Providers Care Arcade Technician Name Role Phone Priyank Zepead MD Primary Care Provider [phone] Allergies Active Allergy Reactions Criticality Noted Date [...] Packs/Day Years Used Date Smoking Tobacco: Never [facility] [employer] Answer Date Recorded In the past 12 months has e [employer], [employer], oil, or water [employer] threatened to shut off services in your [...] any time in the past 12 m [facility], were you homeless or living in a snf (including now)? No 11/17/2023 Comments Unknown Sex [...] Most Recently Relevant to Health Maintenance Insurance BURNS Advance Directives * Full Code (Latest Code Status on File) Date Activated Date Inactivated Comments 11/17/2023 1:12 AM 11/18/2023 5:01 PM * Full Code Date Activated Date Inactivated Comments 09/28/2023 1:27 AM 10/02/2023 3:59 PM Care Teams Arcade Technician Relationship Specialty Start Date End Date Priyank Zepeda MD [address] [place] [address] PCP - General INTERNAL MEDICINE 09/19/19
--- OUTSIDE RECORDS SUMMARY | 2024-08-13 19:08 | XMS_ITS | Clinical Summary ---
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 [place] [address] PCP - General 03/11/02
--- OUTSIDE RECORDS SUMMARY | 2024-08-13 19:08 | XMS_ITS | Encounter Summary ---
Author Organization [facility] Address [address] [place] [address] Phone Care Team Providers Care Exercise Science Internship Name Role Phone Priyank Zepeda MD Primary Care Provider [phone] Reason for Visit * Auth/Cert (Routine) Specialty Diagnoses / Procedures Referred By Contac t Referred To Contact Referral ID Status Reason Start Date Expiration Date Visits Re quested Visits Authorized [id number] 1 1 Encounter Details Date Type Department Care Team (Late st Contact Info) Description 08/13/2024 2:30 PM CDT [facility] [address] [place] [address] Eloisa Ruiz, PT PT - [place] START OF CARE Social History Tobacco Use Types Packs/Day Years Used Date Smoking Tobacco: Never Assessed Comments Unknown Sex and Gender Information Value Date Recorded Sex Assigned at Not on file Legal Sex Female 11:40 PM CDT Gender Identity Not on file Sexual Orientation Not on file documented as of this encounter Last Filed Vital Signs Vital Sign Reading [...] PM CDT Body Mass Index - - documented in this encounter Plan of Treatment Upcoming Encounters Date Type Department Care Team (Late st Contact Info) Description 08/15/2024 1:00 AM CDT Home Care Visit [address] [address] Viola Richard, MEDICAL CENTER DIRECTOR [place] 08/16/2024 1:00 AM [facility] [address] [place] [address] Moni Mendoza OT 08/20/2024 1:00 AM CDT Home Care Visit [address] [address] Viola Richard, MEDICAL CENTER DIRECTOR [place] 08/22/2024 1:00 AM CD[facility] [address] [address] Viloa Richard, MEDICAL CENTER DIRECT[place] 08/26/2024 1:00 AM CDT Home Care Visit [address] [address] Viola Richard, MEDICAL CENTER DIRECT[place] 08/28/2024 1:00 AM CDT Home Care Visit [address] [address] Viola Richard, MEDICAL CENTER DIRECT[place] 09/02/2024 1:00 AM CDT Home Care Visit [address] [address] Eloisa Ruiz, PT 09/04/2024 1:00 AM CDT [facility] [address] [address] Viola Richard, MEDICAL CENTER DIRECTOR [place] documented as of this encounter Visit Diagnoses Not on filedocumented in this encounter Home Health Visit - Actions and Narratives Narratives Pt was admitted to [facility] ER) from 07/28/24-08/07/24 with c/o bloody and black stool. She had an EGD completed which showed non-bleeding ulcers. She was found to be anemic and to have abnormal labs. She received 3 blood transfusions while inpatient. Pt returned home with orders for [facility] PT/OT. She followed up with her PCP yesterday and had labwork done. Pt does report that she had a fall while in [place] [facility] and has a fracture of her lumbar spine. Pt states that she will have an evaluation for a homemaker soon. PMH : CKD, mood disorder, portal hypertension, portal vein thrombosis, Budd Chiari syndrome, gastric bypass, R tibial plateau fracture documented in this encounter Care Teams Exercise Science Internship Relationship Specialty Start Date End Date Priyank Zepeda MD [address] [place] [address] PCP - General Internal Medicine 08/08/24 documented as of this encounter
--- OUTSIDE RECORDS SUMMARY | 2024-08-13 19:08 | XMS_ITS | Encounter Summary ---
Author Organization [facility] Address [address] [place] [address] Care Team Providers Care Head Waiter Name Role Phone Priyank Zepeda MD Primary Care Provider [phone] Encounter Details Date Type Department Care Team (Late st Contact Info) Description 10/03/2023 Hospital Follow-up Call [facility] Care Unit [address] [place] [address] Chelsea Bishop RN Social History Tobacco Use Types Packs/Day Years Used Date Smoking Tobacco: Never [facility] Utilities Answer Date Recorded In the past 12 months has e electric, gas, oil, or water [employer] threatened to shut off services in your [...] any time in the past 12 [facility], were you homeless or living in a care home (including now)? No 09/28/2023 Comments Unknown Sex [...] on filedocumented in this encounter Care Teams Head Waiter Relationship Specialty Start Date End Date Priyank Zepeda MD [address] [place] [address] PCP - General INTERNAL MEDICINE 09/19/19 documented as of this encounter
--- OUTSIDE RECORDS SUMMARY | 2024-08-13 19:09 | XMS_ITS | Referral Summary ---
Author Organization [facility] Address [address] [place] [address] Care Team Providers Care Manager Transmission Name Role Phone Priyank Zepeda MD Primary Care Provider [phone] Source Comments [facility],non-owned Affiliates and Associated Physician Practices is amultiple site organization consisting of ambulatory clinics and hospital sitesin [place], [place], [place] and [place]. This disclosure is being madepursuant to the Care Everywhere program and may not contain all information available regarding this patient. 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 Alwaysverify current medications with the patient. Medication Sig Dispensed Refills Start Date End Date Status apixaban (Eliquis) 5 MG tablet Take 1 (one) tablet by mouth 2 times daily Active ondansetron (Zofran) 4 MG tablet Take 1 (one) tablet by mouth every 8 hours as needed for Nausea/Vomitin g Active amitriptyline (Elavil) 10 MG tablet Take 1 (one) tablet by mouth 2 times daily Active FLUoxetine (PROzac) 40 MG capsule Take 1 (one) capsule by mouth 2 times daily Active cyanocobalamin (Vitamin B-12) 500 MCG tablet Take 5 (five) tablets by mouth once daily Active Beta Carotene 15 MG Take 30 mg by mouth once daily Active alendronate (Fosamax) 10 MG tablet Take 1 (one) tablet by mouth daily before breakfast Active levothyroxine (Synthroid) 125 MCG tablet Take 1 (one) tablet by mouth daily before breakfast Active Nutritional Supplements (Ensure High Protein) LIQD Take 1 container by mouth 2 times daily for 30 days 5 09/01/19 25 Active cholestyramine light (Questran Light; Prevalite) 4 g packet Mix 1 packet as directed and take by mouth once daily 42 Each 5 Active ferrous sulfate 325 (65 FE) MG tablet Take 1 (one) tablet by mouth once daily after lunch 30 tablet 5 Active folic acid (Folvite) 1 MG tablet Take 1 (one) tablet by mouth once daily 30 tablet 5 Active pantoprazole EC (Protonix) 40 MG tablet Take 1 (one) tablet by mouth 2 times daily, before breakfast and supper 60 tablet 5 Active sucralfate (Carafate) 1 GM/10ML suspension Take 10 mL by mouth 4 times daily - before meals & nightly 420 mL 5 Active Cholecalciferol (vitamin D3) 1.25 MG (30682 UT) capsule Take 1 (one) capsule by mouth every 7 days 5 capsule 5 Active furosemide (Lasix) 40 MG tablet Take 1 (one) tablet by mouth once daily 30 tablet 5 Active Calcium Carbonate Antacid (calcium carbonate, 500 mg elemental Ca/5 mL,) 1250 MG/5ML suspension Take 10 mL by mouth 3 times daily with meals 473 mL 1 5 Active pancrelipase (Creon 24,000) 19819-89442 units capsule Take 1 (one) capsule by mouth 3 times daily with meals 100 capsule 5 Active calcitriol (Rocaltrol) 0.5 MCG capsule Take 2 (two) capsules by mouth 3 times daily 180 capsule 5 Active sodium bicarbonate 650 MG tablet Take 1 (one) tablet by mouth 3 times daily 90 tablet 5 Active metoprolol succinate XL 24hr (Toprol XL) 50 MG tablet Take 1 (one) tablet by mouth once daily 08/08/19 25 Discontinued(Cli nical Decision) potassium chloride ER (Klor-Con M) 20 MEQ tablet Take 1 (one) tablet by mouth 2 times daily 08/08/19 25 Discontinued(Cli nical Decision) sodium bicarbonate 650 MG tablet Take 1 (one) tablet by mouth 4 times daily 08/08/19 25 Discontinued(Dos e Adjustment) Calcium Citrate 250 MG Take 3 (three) tablets by mouth 3 times daily 08/08/19 25 Discontinued(Cli nical Decision) pantoprazole EC (Protonix) 40 MG tablet Take 1 (one) tablet by mouth once daily 08/08/19 25 Discontinued(Dos e Adjustment) calcium carbonate (Tums) 500 MG chew tablet Take 200 mg by mouth 2 times daily 08/08/19 25 Discontinued(Cli nical Decision) calcitriol (Rocaltrol) 0.25 MCG capsule Take 2 (two) capsules by mouth 3 times daily 08/08/19 25 Discontinued(Dos e Adjustment) ferrous sulfate 325 (65 FE) MG tablet Take 1 (one) tablet by mouth 3 times daily 08/08/19 25 Discontinued(Dos e Adjustment) Calcium Carbonate Antacid (calcium carbonate, 500 mg elemental Ca/5 mL,) 1250 MG/5ML suspension Take 10 mL by mouth 3 times daily with meals 473 mL 1 5 08/08/19 25 Discontinued sodium bicarbonate 650 MG tablet Take 1 (one) tablet by mouth 3 times daily 90 tablet 5 08/08/19 25 Discontinued pancrelipase (Creon 24,000) 46066-52852 units capsule Take 1 (one) capsule by mouth 3 times daily with meals 90 capsule 5 08/08/19 25 Discontinued calcitriol (Rocaltrol) 0.5 MCG capsule Take 2 (two) capsules by mouth 3 times daily 180 capsule 5 08/08/19 25 Discontinued Active Problems Problem Noted Date Diagnosed Date Back pain 08/02/2024 Colitis 07/28/2024 Gastrointestinal hemorrhage with melena 07/28/19 Immunizations Name Administration Dates Next Due COVID Blockchain 12+YR 30MCG/0.3mL 03/19/2024 INFLUENZA VACCINE, CELL CULT URE, TRIV. (FLUCELVAX TRIVALENT; 6MO+), 0.5 ML (CCIIV3) 03/19/2024 Zoster Hzv Vacc Recombinant Inj Im 10/09/2023, Social History Tobacco Use Types Packs/Day Years Used Date Smoking Tobacco: Never Smokeless Tobacco: Never Tobacco Cessation:Counseling Given: Not Answered Alcohol Use Standard Drinks/Week Comments Never 0 (1 standard drink = 0.6 oz pur e alcohol) AUDIT-C Answer Date Recorded Q1: How often do you have a drink containing alcohol? Never 07/28/2024 Q2: How many drinks containi ng alcohol do you have on a typical day when you are drinking? Patient does not drink Q3: How often do you have si x or more drinks on one occasion? Never 07/28/2024 Overall Financial Resource Strain (CARDIA) Answe r Date Recorded How hard is it for you to pa y for the very basics like food, housing, medical care, and heating? Somewhat hard 07/28/2024 [facility] [place] [facility] - Occupational Stress Questionnaire Answer Date Recorded Do you feel stress - tense, restless, nervous, or anxious, or unable to sleep at night because your mind is troubled all the time - these days? Not at all 07/28/2024 Hunger Vital Sign Answer Date Recorded Within the past 12 months, y ou worried that your food would run out before you got the money to buy more. Never true 07/28/19 25 Within the past 12 months, t he food you bought just didn't last and you didn't have money to get more. Never true 07/28/2024 PRAPARE - Transportation Answer Date Re corded In the past 12 months, has l ack of transportation kept you from medical appointments or from getting medications? Yes 07/07 In the past 12 months, has l ack of transportation kept you from meetings, work, or from getting things needed for daily living? No 07/28/2024 Housing Stability Vital Sign Answer Bobby e Recorded In the last 12 months, was t here a time when you were not able to pay the mortgage or rent on time? No 07/28/2024 In the past 12 months, how m any times have you moved where you were living? 0 07/28/2024 At any time in the past 12 m [facility], were you homeless or living in a intermediate (including now)? No 07/28/2024 Sex and Gender Information Value Date Recorded Sex Assigned at Not on file Gender Identity Not on file Sexual Orientation Not on file Last Filed Vital Signs Vital Sign Reading Time Taken Comments Blood Pressure 112/78 08/07/2024 2:44 PM [facility] Pulse 93 08/07/2024 2:44 PM [facility] Temperature 37.5 C (99.5 F) 08/07/2024 11:33 AM [facility] Respiratory Rate 18 08/07/2024 11:3 3 AM [facility] Oxygen Saturation 97% 08/07/2024 2:44 PM [facility] Inhaled Oxygen Concentration - - Weight 87.5 kg (192 lb 14.4 oz) 025 12:04 AM [facility] Height 165.1 cm (5' 5 ) 07/28/2024 4:01 PM [facility] Body Mass Index 32.1 07/28/2024 4:01 PM [facility] Functional Status Functional Status Response Date of Assess ment Is person deaf or have serious hearing difficult y? Yes 07/28/2024 Is person blind or have serious difficulty seein g? No 07/28/2024 Does person have serious dif ficulty walking/climbing stairs? No 07/28/2024 Does person have difficulty dressing/bathing? No 07/28/2024 Does person have difficulty doing errands alone? No 07/28/2024 Cognitive Status Response Date of Assessm ent Does person have difficulty concentrating/remembering/making decisions? No 07/28/2024 Plan of Treatment Not on file Procedures Procedure Name Priority Date/Time Associated Diagnosis Comments CARDIAC RHYTHM STRIP ORDER 08/08/2024 11:03 PM [facility] APHERESIS/TRANSFUSIO N ORDER 08/08/2024 11:03 PM [facility] B-TYPE NATRIURETIC PEPTIDE AM Draw 08/07/2024 1:59 AM [facility] COMPREHENSIVE METABOLIC PANEL AM Draw 08/07/2024 1:59 AM [facility] VAS BILATERAL VENOUS DUPLEX LE PENDING DISCHARGE 08/06/2024 2:30 PM [facility] Bilateral leg edema MAGNESIUM BLOOD Routine 08/06/2024 6:07 AM [facility] BASIC METABOLIC PANEL (CALCIUM TOTAL) Routine 08/06/2024 6:07 AM [facility] PHOSPHORUS BLOOD Routine 08/06/2024 6:07 AM [facility] MRI LUMBAR SPINE WO CONTRAST Routine 08/05/2024 9:48 AM [facility] Acute midline low back pain without sciatica PHOSPHORUS BLOOD Routine 08/05/2024 6:53 AM [facility] COMPREHENSIVE METABOLIC PANEL AM Draw 08/05/2024 6:53 AM [facility] MAGNESIUM BLOOD AM Draw 08/05/2024 6:53 AM [facility] CBC W AUTO DIFFERENTIAL AM Draw 08/05/2024 6:53 AM [facility] PROTEIN URINE TIMED QUANTITATIVE Routine 08/04/2024 1:55 PM [facility] URIC ACID URINE TIMED Routine 08/04/2024 1:55 PM [facility] CREATININE CLEARANCE URINE TIMED + BLOOD Routine 08/04/2024 1:55 PM [facility] CALCIUM URINE TIMED Routine 08/04/2024 1 :55 PM [facility] COMPREHENSIVE METABOLIC PANEL AM Draw 08/04/2024 6:55 AM [facility] MAGNESIUM BLOOD AM Draw 08/04/2024 6:55 AM [facility] CBC W AUTO DIFFERENTIAL AM Draw 08/04/2024 6:55 AM [facility] URINALYSIS REFLEX TO MICROSCOPIC NO CULTURE Routine 08/03/2024 12:49 PM [facility] COMPREHENSIVE METABOLIC PANEL AM Draw 08/03/2024 9:26 AM [facility] MAGNESIUM BLOOD AM Draw 08/03/2024 9:26 AM [facility] CBC W AUTO DIFFERENTIAL AM Draw 08/03/2024 9:26 AM [facility] XR LUMBAR SPINE 2 OR 3VW Routine 08/02/2024 2:10 PM [facility] Acute midline low back pain without sciatica PTH INTACT W/O CALCIUM Routine 08/02/2024 3:19 AM [facility] MAGNESIUM BLOOD AM Draw 08/02/2024 3:19 AM [facility] RENAL FUNCTION PANEL AM Draw 08/02/2024 3:19 AM [facility] CBC W AUTO DIFFERENTIAL AM Draw 08/02/2024 3:19 AM [facility] CALCIUM BLOOD STAT 08/01/2024 3:41 AM [facility] MAGNESIUM BLOOD AM Draw 08/01/2024 1:20 AM [facility] RENAL FUNCTION PANEL AM Draw 08/01/2024 1:20 AM [facility] CBC W AUTO DIFFERENTIAL AM Draw 08/01/2024 1:20 AM [facility] HGB HCT PANEL Timed 07/31/2024 7:39 AM [facility] TRANSFUSE RED BLOOD CELL LEUKOREDUCED UNIT(S) Routine 07/31/2024 3:40 AM [facility] PREPARE RBC LEUKOREDUCED UNIT Routine 07/31/2024 3:35 AM [facility] MAGNESIUM BLOOD AM Draw 07/31/2024 2:15 AM [facility] RENAL FUNCTION PANEL AM Draw 07/31/2024 2:15 AM [facility] CBC W AUTO DIFFERENTIAL AM Draw 07/31/2024 2:15 AM [facility] VITAMIN D 25-HYDROXY AM Draw 07/31/2024 2:15 AM [facility] VITAMIN B12 AM Draw 07/31/2024 2:15 AM [facility] FOLATE Routine 07/31/2024 2:15 AM [facility] IRON + TRANSFERRIN PANEL Routine 07/31/2024 2:15 AM [facility] HGB HCT PANEL Timed 07/30/2024 10:03 AM [facility] TRANSFUSE RED BLOOD CELL LEUKOREDUCED UNIT(S) Routine 07/30/2024 5:20 AM [facility] PREPARE RBC LEUKOREDUCED UNIT Routine 07/30/2024 5:15 AM [facility] BLOOD TYPE VERIFICATION Routine 07/30/2024 2:06 AM [facility] CBC W/O DIFFERENTIAL AM Draw 07/30/2024 2:06 AM [facility] PT-INR AM Draw 07/30/2024 2:06 AM [facility] BASIC METABOLIC PANEL (CALCIUM TOTAL) AM Draw 07/30/2024 2:06 AM [facility] HGB HCT PANEL Timed 07/29/2024 9:08 PM [facility] US ABDOMEN LIMITED Routine 07/29/2024 2: 29 PM [facility] Gastrointestinal hemorrhage with melena HGB HCT PANEL Routine 07/29/2024 10:19 AM [facility] PT-INR AM Draw 07/29/2024 10:19 AM [facility] NC ED EGD FLEX TRANSORAL DX 07/29/2024 8:30 AM [facility] EGD Routine 07/29/2024 6:57 AM [facility] CBC W/O DIFFERENTIAL Routine 07/29/2024 6:42 AM [facility] COMPREHENSIVE METABOLIC PANEL Routine 07/29/2024 6:42 AM [facility] MAGNESIUM BLOOD Routine 07/29/2024 6:42 AM [facility] PHOSPHORUS BLOOD Routine 07/29/2024 6:42 AM [facility] CULTURE BLOOD Timed 07/28/2024 10:03 PM [facility] CULTURE BLOOD Timed 07/28/2024 8:16 PM [facility] TYPE + SCREEN PANEL Routine 07/28/2024 6 :52 PM [facility] COMPREHENSIVE METABOLIC PANEL STAT 07/28/2024 5:25 PM [facility] CBC W/O DIFFERENTIAL STAT 07/28/2024 5:25 PM [facility] from Last 3 Months Results * CARDIAC RHYTHM STRIP ORDER (08/08/2024 11:03 PM [facility]) Narrative 08/08/2024 11:03 PM [facility] Ordered by an unspecified provider. Scanned Document CARDIAC SERVICES ORD ERABLES * APHERESIS/TRANSFUSION ORDER (08/08/2024 11:03 PM [facility]) Narrative 08/08/2024 11:03 PM [facility] Ordered by an unspecified provider. Scanned Document NURSING - VITAL SIGN S AND ASSESSMENT * B-TYPE NATRIURETIC PEPTIDE (08/07/2024 1:59 AM [facility]) BNP 35 <=100 pg/mL 08/07/2024 2:52 AM [facility] Blood BLOOD SPECIMEN / Unknown Venipuncture / Unknown 08/07/2024 1:59 AM [facility] 08/07/2024 2:19 AM [facility] Chika Chew MD LAB - CHEMISTRY AIDEN KEVIN [facility] [address] [place] [address] * (ABNORMAL) COMPREHENSIVE METABOLIC PANEL (08/07/2024 1:59 AM [facility]) Only the most recent of6 resultswithin the time period is included. Glucose 97 70 - 99 mg/dL 08/07/2024 2:55 AM [facility] Sodium 136 136 - 145 mmol/L 08/07/2024 2:55 AM [facility] Potassium 3.9 3.5 - 5.1 mmol/L 08/07/2024 2:55 AM [facility] Chloride 104 98 - 107 mmol/L 08/07/2024 2:55 AM [facility] CO2 23 22 - 29 mmol/L 08/07/2024 2:55 AM [facility] Calcium 6.8(L) 8.4 - 10.4 mg/dL 08/07/2024 2:55 AM [facility] Anion Gap 9 6 - 16 mmol/L 08/07/2024 2:55 AM [facility] BUN 9 7 - 26 mg/dL 08/07/2024 2:55 AM [facility] Creatinine 0.95 0.57 - 1.11 mg/dL 08/07/2024 2:55 AM [facility] Alkaline Phosphatase 91 40 - 150 U/L 08/07/2024 2:55 AM [facility] ALT 21 0 - 55 U/L 08/07/2024 2:55 AM [facility] AST 28 5 - 34 U/L 08/07/2024 2:55 AM [facility] Protein Total 4.9(L) 6.4 - 8.3 gm/dL 08/07/2024 2:55 AM [facility] Albumin 2.1(L) 3.4 - 5.0 gm/dL 08/07/2024 2:55 AM [facility] Bilirubin Total 0.6 0.2 - 1.2 mg/dL 08/07/2024 2:55 AM [facility] eGFR by CKD-EPI 66(L) >=90 mL/min/1.7 3 m2 08/07/2024 2:55 AM [facility] Blood BLOOD SPECIMEN / Unknown Venipuncture / Unknown 08/07/2024 1:59 AM [facility] 08/07/2024 2:19 AM [facility] Chika Chew MD LAB - CHEMISTRY ORDE DORITA [facility] Organization Address City/State/[facility] Co de Phone Number [facility] [address] [place], [place] [phone] * VAS Bilateral Venous Duplex Le (08/06/2024 2:30 PM [facility]) Anatomical Region Laterality Modality Lower Extremity Ultrasound 08/06/2024 1:50 PM [facility] Narrative Procedure Note Jorge Barakat MD - 08/07/2024 [facility] [id number] [place] [id number] Lower Extremity Venous Ultrasound Report Pat.Name: SARAHY RODRIGUEZ Pat.ID: [id number] .Date: 08/06/2024 Exam Time: 1:50:00 PM Study Type:LE Venous Age: 1 1960,64Y Sex: FEMALE Sonogrphr: Bihn Eldridge RVT Pat. Stat.:Inpatient Room: 511 ICD - 9: R60.0 CPT - 4: 05574 Reason for Study: Bilateral leg edema History / Clinical: CKD, Liver cirrhosis Procedures: Lower Extremity Venous - Bilateral Race: 1 Visit ID: [id number] ++++++++++++++++++++++++++++++++++++ SUMMARY: ++++++++++++++++++++++++++++++++++++ There is no evidence of an acute deep or superficial venous thrombosis in either the right or left lower extremity. ++++++++++++++++++++++++++++++++++++ FINDINGS: ++++++++++++++++++++++++++++++++++++ Procedure: Venous duplex imaging of both lower extremities was performed using color flow and spectral Doppler analysis. Study Quality: Technically difficult exam due to edema. Bilateral: All vessels seen appear patent and compressible. There was spontaneous and phasic flow seen in all the proximal major veins of both lower extremities. Appropriate augmentation with distal compression. Comments: Significant fluid identified in the superficial tissue of both legs. Signed 08/07/2024 07:57 AM Jorge Barakat MD Chika Chew MD VASCULAR LAB ORDERAB LES * (ABNORMAL) BASIC METABOLIC PANEL (CALCIUM TOTAL) (08/06/2024 6:07 AM [facility]) Only the most recent of2 resultswithin the time period is included. Glucose 87 70 - 99 mg/dL 08/06/2024 8:46 AM [facility] Sodium 137 136 - 145 mmol/L 08/06/2024 8:46 AM [facility] Potassium 3.0(L) 3.5 - 5.1 mmol/L 08/06/2024 8:46 AM [facility] Chloride 103 98 - 107 mmol/L 08/06/2024 8:46 AM [facility] CO2 27 22 - 29 mmol/L 08/06/2024 8:46 AM [facility] Calcium 6.7(L) 8.4 - 10.4 mg/dL 08/06/2024 8:46 AM [facility] Anion Gap 7 6 - 16 mmol/L 08/06/2024 8:46 AM [facility] BUN 7 7 - 26 mg/dL 08/06/2024 8:46 AM [facility] Creatinine 0.81 0.57 - 1.11 mg/dL 08/06/2024 8:46 AM [facility] eGFR by CKD-EPI 81(L) >=90 mL/min/1.7 3 m2 08/06/2024 8:46 AM [facility] Blood BLOOD SPECIMEN / Unknown Venipuncture / Unknown 08/06/2024 6:07 AM [facility] 08/06/2024 6:11 AM [facility] Chika Chew MD LAB - CHEMISTRY ORDKyle KEVIN Performing Organization Address [facility] Co de Phone Number [facility] [id number] [place] [id number] * PHOSPHORUS BLOOD (08/06/2024 6:07 AM [facility]) Only the most recent of3 resultswithin the time period is included. Phosphorus 3.7 2.5 - 4.5 mg/dL 08/06/2024 6:27 AM [facility] Blood BLOOD SPECIMEN / Unknown Venipuncture / Unknown 08/06/2024 6:07 AM [facility] 08/06/2024 6:11 AM [facility] Miguel Angel Mccain MD LAB - CHEMISTRY ORDKyle KEVIN Performing Organization Address [facility] Co de Phone Number [facility] [id number] [place] [address] [phone] * MAGNESIUM BLOOD (08/06/2024 6:07 AM [facility]) Only the most recent of8 resultswithin the time period is included. Magnesium 1.7 1.6 - 2.6 mg/dL 08/06/2024 8:43 AM [facility] Blood BLOOD SPECIMEN / Unknown Venipuncture / Unknown 08/06/2024 6:07 AM [facility] 08/06/2024 6:11 AM [facility] Chika Chew MD LAB - CHEMISTRY AIDEN KEVIN Performing Organization Address [facility] Co de Phone Number [facility] [id number] [place] [address] [phone] * MRI Lumbar Spine Wo Contrast (08/05/2024 9:48 AM [facility]) Anatomical Region Laterality Modality Spine Magnetic Resonan ce 08/05/2024 9:51 AM [facility] Impressions 08/05/2024 11:53 AM [facility] IMPRESSION: Multilevel degenerative disc and joint disease. Mild foraminal narrowing at L3-L4 and L4-L5 levels. No canal narrowing seen. Minimal superior endplate compression at T12, associated with mild marrow edema, less than 25% loss of vertical height. Edited by Tressa Phillips on 08/05/2024 10:17 AM > Interpreting Provider: Stefani Zepeda MD on 08/05/2024 11:53 AM Narrative 08/05/2024 11:53 AM [facility] PROCEDURE: MRI LUMBAR SPINE WO CONTRAST DATE/TIME OF EXAM: 08/05/2024 9:49 AM CLINICAL INFORMATION: None relevant/not provided if blank. Indication: M54.50: Low back pain, unspecified Additional History: COMPARISON: None. TECHNIQUE: Lumbar spine MRI was performed without contrast. FINDINGS: Normal curvature of the lumbar spine is maintained. Vertebral body hemangioma at T12. There is minimal superior endplate compression at T12, associated with mild marrow edema. There is less than 25% loss of vertical height. Also noted, minimal superior endplate compression at L1 without associated marrow edema. Inferior endplate Schmorl's node at L1. Vertebral body hemangioma in right aspect of L1 as well. Conus terminates at L1. Distal cord and conus signal intensity is normal. Visualized portions of the abdomen and pelvis do not reveal significant mass or lymphadenopathy. T12-L1: No disc bulge. No foraminal or canal narrowing seen. L1-L2: There is no disc bulge. No foraminal or canal narrowing seen. L2-L3: There is mild diffuse bulge. Mild facet hypertrophy. Mild left foraminal narrowing. No canal narrowing seen. L3-L4: There is mild diffuse bulge. Mild facet hypertrophy. No canal narrowing. There is mild bilateral foraminal narrowing seen. L4-L5: Diffuse disc bulge. Bilateral facet hypertrophy. No canal narrowing. There is mild bilateral foraminal narrowing seen. L5-S1: There is mild diffuse bulge. Bilateral facet hypertrophy. No canal narrowing. No foraminal narrowing seen. Procedure Note Stefani Zepeda MD - 08/05/2024 PROCEDURE: MRI LUMBAR SPINE WO CONTRAST DATE/TIME OF EXAM: 08/05/2024 9:49 AM CLINICAL INFORMATION: None relevant/not provided if blank. Indication: M54.50: Low back pain, unspecified Additional History: COMPARISON: None. TECHNIQUE: Lumbar spine MRI was performed without contrast. FINDINGS: Normal curvature of the lumbar spine is maintained. Vertebral body hemangioma at T12. There is minimal superior endplate compression atT12, associated with mild marrow edema. There is less than 25% loss ofvertical height. Also noted, minimal superior endplate compression at L1 without associated marrow edema. Inferior endplate Schmorl's node at L1.Vertebral body hemangioma in right aspect of L1 as well. Conus terminates at L1. Distal cord and conus signal intensity is normal. Visualized portions of the abdomen and pelvis do not reveal significant mass orlymphadenopathy. T12-L1: No disc bulge. No foraminal or canal narrowing seen. L1-L2: There is no disc bulge. No foraminal or canal narrowing seen. L2-L3: There is mild diffuse bulge. Mild facet hypertrophy. Mild left foraminal narrowing. No canal narrowing seen. L3-L4: There is mild diffuse bulge. Mild facet hypertrophy. No canal narrowing. There is mild bilateral foraminal narrowing seen. L4-L5: Diffuse disc bulge. Bilateral facet hypertrophy. No canalnarrowing. There is mild bilateral foraminal narrowing seen. L5-S1: There is mild diffuse bulge. Bilateral facet hypertrophy. Nocanal narrowing. No foraminal narrowing seen. IMPRESSION: Multilevel degenerative disc and joint disease. Mild foraminal narrowingat L3-L4 and L4-L5 levels. No canal narrowing seen. Minimal superiorendplate compression at T12, associated with mild marrow edema, less than 25%loss of vertical height. Edited by Tressa Phillips on 08/05/2024 10:17 AM > Interpreting Provider: Stefani Zepeda MD on 08/05/2024 11:53 AM Miguel Angel Mccain MD MR ORDERABLES * (ABNORMAL) CBC W AUTO DIFFERENTIAL (08/05/2024 6:53 AM [facility]) Only the most recent of6 resultswithin the time period is included. WBC 6.8 4.0 - 10.7 x10E9/L 08/05/2024 7:01 AM [facility] RBC Count 2.80(L) 3.90 - 5.20 x10E12/L 08/05/2024 7:01 AM [facility] Hemoglobin 8.6(L) 11.9 - 15.8 g/dL 08/05/2024 7:01 AM [facility] Hematocrit 26.3(L) 34.8 - 46.1 % 08/05/2024 7:01 AM [facility] MCV 93.9 80.0 - 98.0 fL 08/05/2024 7:01 AM [facility] MCH 30.7 26.7 - 33.6 pg 08/05/2024 7:01 AM [facility] MCHC 32.7 31.7 - 36.3 g/dL 08/05/2024 7:01 AM [facility] RDW-CV 17.6(H) 11.3 - 14.8 % 08/05/2024 7:01 AM [facility] Platelet Count 111(L) 150 - 420 x10E9/L 08/05/2024 7:01 AM [facility] MPV 10.1 7.8 - 11.4 fL 08/05/2024 7:01 AM [facility] Neutrophil % 70.0 41.0 - 74.0 % 08/05/2024 7:01 AM [facility] Lymphocyte % 13.8(L) 17.0 - 47.0 % 08/05/2024 7:01 AM [facility] Monocyte % 11.7(H) 3.0 - 11.0 % 08/05/2024 7:01 AM [facility] Eosinophil % 3.7 0.0 - 7.0 % 08/05/2024 7:01 AM [facility] Basophil % 0.4 0.0 - 1.6 % 08/05/2024 7:01 AM [facility] Immature Granulocytes % 0.4 0.0 - 1.0 % 08/05/2024 7:01 AM [facility] Neutrophil Absolute 4.76 1.60 - 7.50 x10E9/L 08/05/2024 7:01 AM [facility] Lymphocyte Absolute 0.94(L) 1.00 - 4.40 x10E9/L 08/05/2024 7:01 AM [facility] Monocyte Absolute 0.80 0.15 - 1.00 x10E9/L 08/05/2024 7:01 AM [facility] Eosinophil Absolute 0.25 0.00 - 0.60 x10E9/L 08/05/2024 7:01 AM [facility] Basophil Absolute 0.03 0.00 - 0.13 x10E9/L 08/05/2024 7:01 AM [facility] Blood BLOOD SPECIMEN / Unknown Venipuncture / Unknown 08/05/2024 6:53 AM [facility] 08/05/2024 6:57 AM [facility] Miguel Angel Mccain MD LAB - HEMATOLOGY ORD ERABLES [facility] [address] [place] [address] * URIC ACID URINE TIMED (08/04/2024 1:55 PM [facility]) Pathologist [facility] Uric Acid 24 Hour Urine 205.0 142.3 - 713.2 mg/24 hr 08/06/2024 11:10 AM [facility] ([facility]) Uric Acid Urine 20.5 Not Estab. mg/dL 08/06/2024 11:10 AM [facility] ([facility]) Urine TIMED URINE SPECIMEN / Unknown Timed Urine Volume Measurement / Unknown 08/04/2024 1:55 PM [facility] 08/04/2024 2:02 PM [facility] Narrative [facility] ([facility]) - 08/06/2024 11:10 AM [facility] Performed at: [address] [id number] [employer] Checker: El Sood PhD, Phone: [phone] Pete Olmos MD LAB - URINE CHEMISTR Y ORDERABLES Performing Organization Address City/[facility]/ZIP Co de Phone Number [facility] ([facility]) [address] [place] [address] * PROTEIN URINE TIMED QUANTITATIVE (08/04/2024 1:55 PM [facility]) Volume 24 Hour Urine 1,000 mL 08/04/2024 2:25 PM [facility] Collection Time Hours 24 hrs 08/04/2024 2:25 PM [facility] Protein 24 Hour Urine 72 <300 mg/24hr 08/04/2024 2:25 PM [facility] Protein Urine 7.2 <11.9 mg/dL 08/04/2024 2:25 PM [facility] Urine TIMED URINE SPECIMEN / Unknown Timed Urine Volume Measurement / Unknown 08/04/2024 1:55 PM [facility] 08/04/2024 2:02 PM [facility] Pete Olmos MD LAB - URINE CHEMISTR Y ORDERABLES [facility] [address] [place], [place] [id number] * CREATININE CLEARANCE URINE TIMED + BLOOD (08/04/2024 1:55 PM [facility]) Volume 24 Hour Urine 1,000 mL 08/04/2024 2:28 PM [facility] Collection Time Hours 24 hrs 08/04/2024 2:28 PM [facility] Height Inches 65 inches 08/04/2024 2:28 PM [facility] Weight in Pounds 160 pounds 08/04/2024 2:28 PM [facility] Surface Area 1.80 08/04/2024 2:28 PM [facility] Creatinine 0.81 0.57 - 1.11 mg/dL 08/04/2024 2:28 PM [facility] Creatinine Urine 82.74 mg/dL 08/04/2024 2:28 PM [facility] Creatinine 24 Hour Urine 827 710 - 1,650 mg/24hr 08/04/2024 2:28 PM [facility] Creatinine Clearance 68 66 - 165 mL/min/1.73 m2 08/04/2024 2:28 PM [facility] Urine TIMED URINE SPECIMEN / Unknown Timed Urine Volume Measurement / Unknown 08/04/2024 1:55 PM [facility] 08/04/2024 2:02 PM [facility] Pete Olmos MD LAB - URINE CHEMISTR Y ORDERABLES [facility] [address] [place] [address] * (ABNORMAL) CALCIUM URINE TIMED (08/04/2024 1:55 PM [facility]) Calcium Random Urine <2.0 Not Established mg/dL 08/04/2024 7:00 PM [facility] Collection Time Timed Urine 24 Hrs 08/04/2024 7:00 PM [facility] Calcium 24 Hour Urine <20(L) 50 - 300 mg/24 hrs 08/04/2024 7:00 PM [facility] Comment:Unable to calculate excretion rate because the analyte concentration is outside the instrument measuring range. Volume Timed Urine 1,000 mL 08/04/2024 7:00 PM [facility] Urine TIMED URINE SPECIMEN / Unknown Timed Urine Volume Measurement / Unknown 08/04/2024 1:55 PM [facility] 08/04/2024 2:02 PM [facility] Pete Olmos MD LAB - URINE CHEMISTR Y ORDERABLES Performing Organization Address City/[facility]/ZIP Co de Phone Number [id number] [place] [address], [facility] [phone] * (ABNORMAL) URINALYSIS REFLEX TO MICROSCOPIC NO CULTURE (08/03/2024 12:49 PM [facility]) Color UA Yellow Yellow, Straw 08/03/2024 1:30 PM [facility] Clarity UA Clear Clear 08/03/2024 1:30 PM [facility] Glucose UA Normal Normal 08/03/2024 1:30 PM [facility] Bilirubin UA Negative Negative 08/03/2024 1:30 PM [facility] Ketone UA Negative Negative 08/03/2024 1:30 PM [facility] Specific [place] UA 1.013 1.005 - 1.030 08/03/2024 1:30 PM [facility] Blood UA Negative Negative 08/03/2024 1:30 PM [facility] pH UA 7.5 5.0 - 9.0 pH 08/03/2024 1:30 PM [facility] Protein UA Negative Negative 08/03/2024 1:30 PM [facility] Urobilinogen UA Normal Normal mg/dL 08/03/2024 1:30 PM [facility] Nitrite UA Negative Negative 08/03/2024 1:30 PM [facility] Leukocyte UA 75 JAQUI/uL(A) Negative 08/03/2024 1:30 PM [facility] RBC UA 0-2 0 - 5 # /hpf 08/03/2024 1:30 PM [facility] WBC UA 6-10(A) 0 - 5 # /hpf 08/03/2024 1:30 PM [facility] Bacteria UA Trace(A) None Seen 08/03/2024 1:30 PM [facility] Squamous Epithelial Cells 0-2 0 - 5 /hpf 08/03/2024 1:30 PM [facility] Budding Yeast Few(A) None seen /hpf 08/03/2024 1:30 PM [facility] Urine URINE SPECIMEN OBTAINED BY CLEAN CATCH PROCEDURE / Unknown Collection / Unknown 08/03/2024 12:49 PM [facility] 08/03/2024 12:53 PM [facility] Narrative [facility] - 08/03/2024 1:30 PM [facility] Pete Olmos MD LAB - URINALYSIS ORD ERABLES [facility] [address] [place] [id number] * XR Lumbar Spine 2 or 3Vw (08/02/2024 2:10 PM [facility]) Anatomical Region Laterality Modality Spine Computed Radiogr aphy 08/02/2024 2:26 PM [facility] Narrative 08/02/2024 2:29 PM [facility] EXAM: XR LUMBAR SPINE 2 OR 3VW INDICATION: M54.50: Low back pain, unspecified COMPARISON: None FINDINGS: The last fully formed disc space will be labeled as L5-S1. There are hypoplastic or absent ribs at T12. Diffuse osteopenia. Normal alignment. Mild anterior wedging of the L1 vertebral body concerning for possible acute compression fracture. Mild degenerative endplate changes scattered throughout the lumbar spine. > Interpreting Provider: Jamarcus Tirado MD on 08/02/2024 2:29 PM Procedure Note Jamarcus Tirado MD - 08/02/2024 EXAM: XR LUMBAR SPINE 2 OR 3VW INDICATION: M54.50: Low back pain, unspecified COMPARISON: None FINDINGS: The last fully formed disc space will be labeled as L5-S1. There are hypoplastic or absent ribs at T12. Diffuse osteopenia. Normal alignment. Mild anterior wedging of the L1 vertebral body concerning for possible acute compression fracture. Mild degenerative endplate changes scattered throughout the lumbar spine. > Interpreting Provider: Jamarcus Tirado MD on 08/02/2024 2:29 PM Miguel Angel Mccain MD DIAGNOSTIC IMAGING O RDERABLES * (ABNORMAL) PTH INTACT W/O CALCIUM (08/02/2024 3:19 AM [facility]) PTH Intact 275.2(H) 8.7 - 77.1 pg/mL 08/02/2024 4:05 AM [facility] Blood BLOOD SPECIMEN / Unknown Venipuncture / Unknown 08/02/2024 3:19 AM [facility] 08/02/2024 3:30 AM [facility] Miguel Angel Mccain MD [facility] Organization Address City/State/ZIP Co de Phone Number [facility] [address] [place] [address] * (ABNORMAL) RENAL FUNCTION PANEL (08/02/2024 3:19 AM [facility]) Only the most recent of3 resultswithin the time period is included. Glucose 112(H) 70 - 99 mg/dL 08/02/2024 4:06 AM [facility] Sodium 140 136 - 145 mmol/L 08/02/2024 4:06 AM [facility] Potassium 3.1(L) 3.5 - 5.1 mmol/L 08/02/2024 4:06 AM [facility] Chloride 103 98 - 107 mmol/L 08/02/2024 4:06 AM [facility] CO2 28 22 - 29 mmol/L 08/02/2024 4:06 AM [facility] Calcium 5.8(LL) 8.4 - 10.4 mg/dL 08/02/2024 4:06 AM [facility] Anion Gap 9 6 - 16 mmol/L 08/02/2024 4:06 AM [facility] BUN 4(L) 7 - 26 mg/dL 08/02/2024 4:06 AM [facility] Creatinine 0.75 0.57 - 1.11 mg/dL 08/02/2024 4:06 AM [facility] Albumin 2.4(L) 3.4 - 5.0 gm/dL 08/02/2024 4:06 AM [facility] Phosphorus 2.4(L) 2.5 - 4.5 mg/dL 08/02/2024 4:06 AM [facility] eGFR by CKD-EPI 88(L) >=90 mL/min/1.7 3 m2 08/02/2024 4:06 AM [facility] Blood BLOOD SPECIMEN / Unknown Venipuncture / Unknown 08/02/2024 3:19 AM [facility] 08/02/2024 3:30 AM [facility] Miguel Angel Mccain MD LAB - CHEMISTRY ORDE DORITA Performing Organization Address City/[facility]/ZIP Co de Phone Number [facility] [address] [place] [address] * (ABNORMAL) CALCIUM BLOOD (08/01/2024 3:41 AM [facility]) [facility] Calcium 5.4(LL) 8.4 - 10.4 mg/dL 08/01/2024 4:21 AM [facility] Blood BLOOD SPECIMEN / Unknown Venipuncture / Unknown 08/01/2024 3:41 AM [facility] 08/01/2024 3:52 AM [facility] Peewee Esquivel DO LAB - CHEMISTRY ORDE DORITA Performing Organization Address [facility] Co de Phone Number [facility] [address] [place] [address] * (ABNORMAL) HGB HCT PANEL (07/31/2024 7:39 AM [facility]) Only the most recent of4 resultswithin the time period is included. Pathologist [facility] Hemoglobin 8.3(L) 11.9 - 15.8 g/dL 07/31/2024 7:47 AM [facility] Hematocrit 23.7(L) 34.8 - 46.1 % 07/31/2024 7:47 AM [facility] Blood BLOOD SPECIMEN / Unknown Venipuncture / Unknown 07/31/2024 7:39 AM [facility] 07/31/2024 7:43 AM [facility] Cruz Whitfield MD LAB - HEMATOLOGY OR DERABLES Performing Organization Address City/[facility]/ZIP Co de Phone Number [facility] [address] [place] [address] * TRANSFUSE RED BLOOD CELL LEUKOREDUCED UNIT(S) (07/31/2024 5:59 AM [facility]) Peewee Esquivel DO NURSING - BLOOD PROD TRANSFUSION * PREPARE (CROSSMATCH) RBC UNIT(S), 1 Units (07/31/2024 3:35 AM [facility]) Only the most recent of2 resultswithin the time period is included. [facility] Unit Description AS1 LR PRBC [facility] B[facility]OD [facility] Unit ABO B [facility] Unit Rh POS [facility] Product Number R02 [facility] B[facility] Unit Donor # [id number] [facility] C BLOOD BANK Unit Status transfused [facility] BL OOD BANK Product Code [id number] [facility] BL OOD BANK Blood Type Barcode 7300 [facility] Expiration Date [id number] [facility] B[facility] Blood Bank BLOOD SPECIMEN / Unknown 07/28/2024 8:53 PM [facility] Miguel Angel Mccain MD LAB - BLOOD BANK ORD ERABLES Performing Organization Address City/[facility]/ZIP Co de Phone Number [facility]ANK [id number] [place] [address], [facility] [phone] * (ABNORMAL) VITAMIN D 25-HYDROXY (07/31/2024 2:15 AM [facility]) [facility] Vitamin D, 25 Hydroxy 12.3(L) 30 - 80 ng/mL 07/31/2024 3:23 AM [facility] Blood BLOOD SPECIMEN / Unknown Venipuncture / Unknown 07/31/2024 2:15 AM [facility] 07/31/2024 2:22 AM [facility] Narrative [facility] - 07/31/2024 3:23 AM [facility] Vitamin D Status: Deficiency <20 ng/mL Insufficiency 20-30 ng/mL Sufficiency 30-100 ng/mL Toxicity >100 ng/mL Miguel Angel Mccain MD LAB - CHEMISTRY AIDEN KEVIN Performing Organization Address City/[facility]/ZIP Co de Phone Number [facility] [id number] [place] [phone] * (ABNORMAL) FOLATE (07/31/2024 2:15 AM [facility]) Pathologist [facility] Folate 5.2(L) 7.0 - 31.4 ng/mL 07/31/2024 3:23 AM [facility] Blood BLOOD SPECIMEN / Unknown Venipuncture / Unknown 07/31/2024 2:15 AM [facility] 07/31/2024 2:22 AM [facility] Miguel Angel Mccain MD LAB - CHEMISTRY AIDEN KEVIN Performing Organization Address [facility] de Phone Number [facility] [id number] [place] [id number] * (ABNORMAL) VITAMIN B12 (07/31/2024 2:15 AM [facility]) Pathologist [facility] Vitamin B12 >2,000(H) 213 - 816 pg/mL 07/31/2024 3:27 AM [facility] Blood BLOOD SPECIMEN / Unknown Venipuncture / Unknown 07/31/2024 2:15 AM [facility] 07/31/2024 2:22 AM [facility] Miguel Angel Mccain MD LAB - CHEMISTRY AIDEN KEVIN Performing Organization Address [facility] de Phone Number [facility] [id number] [place] [phone] * (ABNORMAL) IRON + TRANSFERRIN PANEL (07/31/2024 2:15 AM [facility]) Pathologist [facility] Iron 84 40 - 150 ug/dL 07/31/2024 2:55 AM [facility] Transferrin 123(L) 174 - 382 mg/dL 07/31/2024 2:55 AM [facility] TIBC Calculated 154(L) 240 - 450 ug/dL 07/31/2024 2:55 AM [facility] Iron Saturation % 55(H) 20 - 50 % 07/31/2024 2:55 AM [facility] Blood BLOOD SPECIMEN / Unknown Venipuncture / Unknown 07/31/2024 2:15 AM [facility] 07/31/2024 2:22 AM [facility] Miguel Angel Mccain MD LAB - CHEMISTRY AIDEN KEVIN Performing Organization Address [facility] Co de Phone Number [facility] [address] [place] [address] * TRANSFUSE RED BLOOD CELL LEUKOREDUCED UNIT(S) (07/30/2024 7:41 AM [facility]) Peewee Esquivel DO NURSING - BLOOD PROD TRANSFUSION * BLOOD TYPE VERIFICATION (07/30/2024 2:06 AM [facility]) Pathologist [facility] ABO Rh B POS 07/30/2024 4:2 5 AM [facility] Blood Bank BLOOD SPECIMEN / Unknown Venipuncture / Unknown 07/30/2024 2:06 AM [facility] 07/30/2024 3:11 AM [facility] Yi Grier MD LAB - BLOOD BANK JUJU WASSERMAN Performing Organization Address [facility] Co de Phone Number [facility] B[facility] BANK [address] [place], [place] [id number], [facility] [phone] * (ABNORMAL) PT-INR (07/30/2024 2:06 AM [facility]) Only the most recent of2 resultswithin the time period is included. Pathologist [facility] PT 19.8(H) 12.1 - 14.8 sec 07/30/2024 3:12 AM [facility] Comment:This result represen ts a significant difference from this patient's most recent previous value. Clinical correlation is therefore recommended. INR 1.7(H) 0.9 - 1.1 07/30/2024 3:12 AM [facility] Blood BLOOD SPECIMEN / Unknown Venipuncture / Unknown 07/30/2024 2:06 AM [facility] 07/30/2024 2:27 AM [facility] - 07/30/2024 3:12 AM [facility] Conventional Warfarin Anticoagulant Therapy: INR Reference Range: 2.0-3.0 Intensive Warfarin Anticoagulant Therapy: INR Reference Range: 2.5-3.5 Yi Grier MD LAB - COAGULATION OR DERABLES [facility] [address] [place] [address] * (ABNORMAL) CBC W/O DIFFERENTIAL (07/30/2024 2:06 AM [facility]) Only the most recent of3 resultswithin the time period is included. WBC 12.5(H) 4.0 - 10.7 x10E9/L 07/30/2024 2:30 AM [facility] RBC Count 2.06(L) 3.90 - 5.20 x10E12/L 07/30/2024 2:30 AM [facility] Hemoglobin 6.4(L) 11.9 - 15.8 g/dL 07/30/2024 2:30 AM [facility] Hematocrit 18.7(L) 34.8 - 46.1 % 07/30/2024 2:30 AM [facility] MCV 90.8 80.0 - 98.0 fL 07/30/2024 2:30 AM [facility] MCH 31.1 26.7 - 33.6 pg 07/30/2024 2:30 AM [facility] MCHC 34.2 31.7 - 36.3 g/dL 07/30/2024 2:30 AM [facility] RDW-CV 18.1(H) 11.3 - 14.8 % 07/30/2024 2:30 AM [facility] Platelet Count 161 150 - 420 x10E9/L 07/30/2024 2:30 AM [facility] MPV 10.0 7.8 - 11.4 fL 07/30/2024 2:30 AM [facility] Blood BLOOD SPECIMEN / Unknown Venipuncture / Unknown 07/30/2024 2:06 AM [facility] 07/30/2024 2:27 AM [facility] Yi Grier MD LAB - HEMATOLOGY ORD ERABLES [facility] [address] [place] [address] * US ABDOMEN LIMITED (RUQ) (07/29/2024 2:29 PM [facility]) Anatomical Region Laterality Modality Abdomen Ultrasound 07/29/2024 3:34 PM [facility] Impressions 07/30/2024 10:05 AM [facility] IMPRESSION: 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 Hepatic steatosis with a mass right lobe most consistent with focal fatty sparing. Lack of ability to compare to the outside images result in decreased sensitivity. > Interpreting Provider: Kameron Sprague MD on 07/30/2024 10:05 AM Narrative 07/30/2024 10:05 AM [facility] PROCEDURE: US ABDOMEN LIMITED, DATE/TIME OF EXAM: 07/29/2024 2:29 PM, LOCATION [facility] INDICATION: K92.1: Melena ADDITIONAL CLINICAL INFORMATION: Ordering Provider Reason For Exam: Technologist Note: Additional: Abnormal prior CT scan. Cavernous transformation of the portal vein, history of known portal venous thrombosis COMPARISON None. Technique: Grayscale and color images of the abdomen Findings: Right kidney-9.1 x 4.0 x 4.4 cm CBD-6 mm. Nonvisualization of the gallbladder consistent with post cholecystectomy. The imaged portions of pancreas is obscured by overlying bowel gas. The liver is echogenic consistent with steatosis. Tiny amount of free fluid adjacent liver consistent with small amount of ascites. Absence of normal flow within the portal vein consistent with patient's history of cavernous transformation. CBD caliber is normal at 6 mm. Tortuous vessels in the area the luiza hepatis consistent with cavernous transformation Suggested mass right lobe of the liver cyst in a background of underlying hyper echogenicity consistent with steatosis. This measures 2.5 x 1.6 cm. This most suggestive of focal area of fatty sparing. Blood vessels extend through this region again consistent with focal fatty sparing. Procedure Note Kameron Sprague MD - 07/30/2024 PROCEDURE: US ABDOMEN LIMITED, DATE/TIME OF EXAM: 07/29/2024 2:29 PM, LOCATION [facility] INDICATION: K92.1: Melena ADDITIONAL CLINICAL INFORMATION: Ordering Provider Reason For Exam: Technologist Note: Additional: Abnormal prior CT scan. Cavernous transformation of theportal vein, history of known portal venous thrombosis COMPARISON None. Technique: Grayscale and color images of the abdomen Findings: Right kidney-9.1 x 4.0 x 4.4 cm CBD-6 mm. Nonvisualization of the gallbladder consistent with postcholecystectomy. The imaged portions of pancreas is obscured by overlying bowel gas. The liver is echogenic consistent with steatosis. Tiny amount of free fluid adjacent liver consistent with small amount of ascites. Absence ofnormal flow within the portal vein consistent with patient's history ofcavernous transformation. CBD caliber is normal at 6 mm. Tortuous vessels in thearea the luiza hepatis consistent with cavernous transformation Suggested mass right lobe of the liver cyst in a background ofunderlying hyper echogenicity consistent with steatosis. This measures 2.5 x 1.6cm. This most suggestive of focal area of fatty sparing. Blood vesselsextend through this region again consistent with focal fatty sparing. 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 Hepatic steatosis with a mass right lobe most consistent with focalfatty sparing. Lack of ability to compare to the outside images result in decreased sensitivity. > Interpreting Provider: Kameron Sprague MD on 07/30/2024 10:05 AM Fabio Santos MD US ORDERABLES * EGD (07/29/2024 6:57 AM [facility]) Report Endoscopy POC _ Patient Name: Sarahy Rodriguez Procedure Date: 07/29/2024 6:57 AM Date of : 1960 Admit Type: Inpatient Age: 64 Gender: Female Attending MD: Cathleen Estrada MD, [id number] _ Procedure: Upper GI endoscopy Indications: Melena Providers: Cathleen Estrada MD (Doctor) Patient Profile: 64yo female with hx of gastric bypass (20yrs ago) with melena here for EGD Referring MD: Priyank Zepeda MD (Referring MD), Ania Josue MD (Referring MD) Medicines: Monitored Anesthesia Care Complications: No immediate complications. _ Estimated Blood Loss: Estimated blood loss: none. Procedure: Pre-Anesthesia Assessment: - Prior to the procedure, a History and Physical was performed, and patient medications, allergies and sensitivities were reviewed. The patient's tolerance of previous anesthesia was reviewed. - The risks and benefits of the procedure and the sedation options and risks were discussed with the patient. All questions were answered and informed consent was obtained. - Prior Anticoagulants: The patient has taken Eliquis (apixaban), last dose was 3 days prior to procedure. - Prior Aspirin/ NSAID therapy: The patient has taken no aspirin or NSAID medications. - ASA Grade Assessment: III - A patient with severe systemic disease. After obtaining informed consent, the endoscope was passed under direct vision. Throughout the procedure, the patient's blood pressure, pulse, and oxygen saturations were monitored continuously. The Endoscope was introduced through the mouth, and advanced to the jejunum. The upper GI endoscopy was accomplished without difficulty. The patient tolerated the procedure well. The upper GI endoscopy was accomplished without difficulty. The patient tolerated the procedure well. Findings: The examined esophagus was normal. The entire examined stomach was normal. Two non-bleeding superficial ulcers with a clean ulcer base (Rogelio Class III) were found at the anastomosis. The largest lesion was 7 mm in largest dimension. There was evidence of a patent Gastrojejunostomy in the duodenal bulb. This was characterized by ulceration. _ Impression: - Normal esophagus. - Normal stomach. - Non-bleeding jejunal ulcers with a clean ulcer base (Rogelio Class III). - Patent Gastrojejunostomy, characterized by ulceration was found. - No specimens collected. Recommendation: - Return patient to [facility] for [facility] care. - Clear liquid diet - Monitor H/H - If has recurrent Hb drop may consider colonoscopy. If Hb remains stable then consider restarting Eliquis and monitoring. - Further recommendations per inpatient GI notes Procedure Code(s): --- Professional --- 99707, Esophagogastroduoden oscopy, flexible, transoral; diagnostic, including collection of specimen(s) by brushing or washing, when performed (separate procedure) --- Technical --- 73108, Esophagogastroduoden oscopy, flexible, transoral; diagnostic, including collection of specimen(s) by brushing or washing, when performed (separate procedure) Diagnosis Code(s): --- Professional --- K28.9, Gastrojejunal ulcer, unspecified as acute or chronic, without hemorrhage or perforation Z98.890, Other specified postprocedural states K92.1, Melena (includes Hematochezia) --- Technical --- K28.9, Gastrojejunal ulcer, unspecified as acute or chronic, without hemorrhage or perforation Z98.890, Other specified postprocedural states K92.1, Melena (includes Hematochezia) CPT copyright 2020 [employer]. All rights reserved. The codes documented in this report are preliminary and upon voyage management system operator review may be revised to meet current compliance requirements. Cathleen Estrada MD 07/29/2024 9:00:40 AM Number of Addenda: 0 Note Initiated On: 07/29/2024 6:57 AM [facility] ENDOSCOPY 07/29/2024 6:57 AM [facility] Narrative Procedure Note Cathleen Estrada MD - 07/29/2024 9:01 AM CST EGD done for melena. Findings showed evidence of previous gastric bypasssurgery. There were 2 small anastomotic ulcers. These ulcers weresuperficial and nonbleeding. There was no active bleeding. Remaining EGDwas normal. Follow H&H daily. Clear liquid diet today. If hemoglobinremains stable would consider restarting Eliquis and monitoring. Ifhemoglobin continues to drop then would consider colonoscopy for furtherevaluation. Ania Josue MD GI PROCEDURE ORDERAB LES [facility] [place] [address] * CULTURE BLOOD (07/28/2024 10:03 PM [facility]) Only the most recent of2 resultswithin the time period is included. Culture No growth day 5 LINO 08/03/2024 1:30 AM [facility] MICROBIOLOGY Blood PERIPHERAL BLOOD / Unknown Venipuncture / Unknown 07/28/2024 10:03 PM [facility] 07/28/2024 10:07 PM [facility] Fabio Santos MD LAB - MICROBIOLOGY O RDERABLES [facility] MICROBIOLOGY [address] [place] [id number], [facility] [phone] * TYPE + SCREEN PANEL (07/28/2024 6:52 PM [facility]) ABO Rh B POS 07/28/2024 9:52 PM [facility] BLOOD BANK Comment:No history; collect retype. 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
--- OUTSIDE RECORDS SUMMARY | 2024-08-13 19:09 | XMS_ITS | Clinical Summary ---
Author Organization [facility] Address [address] [place] [address] Care Team Providers Care Broadcast Checker Name Role Phone Priyank Zepeda MD Primary Care Provider [phone] Source Comments [facility],non-owned Affiliates and Associated Physician Practices is amultiple site organization consisting of ambulatory clinics and hospital sitesin [place], [place], [place] and [place]. This disclosure is being madepursuant to the Care Everywhere program and may not contain all information available regarding this patient. Last updated 18.[facility] Allergies Active Allergy Reactions Criticality Noted Date [...] 5 Active Cholecalciferol (vitamin D3) 1.25 MG (22199 UT) capsule Take 1 (one) capsule by mouth every 7 days 5 capsule 5 Active furosemide (Lasix) 40 MG tablet Take 1 (one) tablet by mouth once daily 30 tablet 5 Active Calcium Carbonate Antacid (calcium carbonate, 500 mg elemental Ca/5 mL,) 1250 MG/5ML suspension Take 10 mL by mouth 3 times daily with meals 473 mL 1 5 Active pancrelipase (Creon 24,000) 77503-17554 units capsule Take 1 (one) capsule by [...] 5 08/08/19 25 Discontinued pancrelipase (Creon 24,000) 06100-77305 units capsule Take 1 (one) capsule by mouth 3 times daily with meals 90 capsule 5 08/08/19 25 Discontinued calcitriol (Rocaltrol) 0.5 MCG capsule Take 2 (two) capsules by mouth 3 times daily 180 capsule 5 08/08/19 25 Discontinued Active Problems Problem Noted Date Diagnosed Date Back pain 08/02/2024 Colitis 07/28/2024 Gastrointestinal hemorrhage with melena 07/28/19 25 Encounters Date Type Department Care Team Description 07/29/2024 8:42 AM ACCOUNTS ADMINISTRATOR Anesthesia Event [facility] [address] [place] [address] Bozena Osullivan DO Boyce, Lisa C, PAMELA-JOCY 07/29/2024 8:30 AM ACCOUNTS ADMINISTRATOR - 07/29/2024 9:00 AM ACCOUNTS ADMINISTRATOR Surgery [facility] [address] [place] [address] Cathleen Estrada MD ESOPHAGOGASTRODUODENOSCOPY (EGD) DIAGNOSTIC 07/28/2024 2:19 PM ACCOUNTS ADMINISTRATOR - 08/07/2024 4:44 PM ACCOUNTS ADMINISTRATOR Hospital Encounter [facility] [id number] [place] [id number] Yi Grier MD Fatima, Noor E, MD Zhu, He, MD Kumar, Hanesh, MD Sampath, Roshni, MD Hospitalist Discharge Disposition: Home or Self Care 07/28/2024 Travel from Last 3 Months Immunizations Name Administration Dates Next Due COVID PFIZER 12+YR 30MCG/0.3mL 03/19/2024 INFLUENZA VACCINE, CELL CULT [...] medical care, and heating? Somewhat hard 07/28/2024 [place] [facility] [facility] - Occupational Stress [...] any time in the past [facility], were you homeless or living in a fpc (including now)? No 07/28/2024 Sex and Gender Information Value Date Recorded Sex Assigned at Not on file Gender Identity Not on file Sexual Orientation Not on file Last Filed Vital Signs Vital Sign Reading Time Taken Comments Blood Pressure 112/78 08/07/2024 2:44 PM ACCOUNTS ADMINISTRATOR Pulse 93 08/07/2024 2:44 PM ACCOUNTS ADMINISTRATOR Temperature 37.5 C (99.5 F) 08/07/2024 11:33 AM ACCOUNTS ADMINISTRATOR Respiratory Rate 18 08/07/2024 11:3 3 AM ACCOUNTS ADMINISTRATOR Oxygen Saturation 97% 08/07/2024 2:44 PM ACCOUNTS ADMINISTRATOR Inhaled Oxygen Concentration - - Weight 87.5 kg (192 lb 14.4 oz) 025 12:04 AM ACCOUNTS ADMINISTRATOR Height 165.1 cm (5' 5 ) 07/28/2024 4:01 PM ACCOUNTS ADMINISTRATOR Body Mass Index 32.1 07/28/2024 4:01 PM ACCOUNTS ADMINISTRATOR Plan of Treatment Health Maintenance Due Date Last Done Comments BONE DENSITY TESTING 1960 COLOGUARD (AGES 45-75) - COLON CA SCREENING [address] COLONOGRAPHY - COLON CA SCREENING 1960 FIT - COLON CA SCREENING 1960 FLEX SIG - COLON CA SCREENING 1960 LIPID TESTING 1959 PAP SMEAR 1959 HIV SCREENING 1974 HEPATITIS C SCREENING 06/21/1977 DTAP/TDAP/TD VACCINES (1 - Tdap) 1978 PNEUMOCOCCAL VACCINE 50+ (1 of 1 - PCV) 2009 MAMMOGRAM 11/18/2022 11/18/2020, 11/03, 11/01/2019 DEPRESSION SCREENING 06/05/2024 COLONOSCOPY - COLON CA SCREENING 12/13/2033 12/14/2023 Colorectal Cancer Screening 12/13/2033 Respiratory Syncytial Virus (RSV) Vaccine Pt: or over 60 yrs (1 - 1-dose 75+ series) 2034 ZOSTER VACCINE Completed 10/09/2023, 04/17/2023 COVID-19 VACCINE Completed 03/19/2024, , 03/06/2022, Additional history exists INFLUENZA VACCINE Completed 03/19/2024, , 03/06/2022, Additional history exists HEPATITIS B VACCINE Aged Out No longe r eligible based on patient's age to complete this topic HIB VACCINE Aged Out No longer eligi ble based on patient's age to complete this topic HPV VACCINE Aged Out No longer eligi ble based on patient's age to complete this topic MENINGOCOCCAL (Group B) VACCINE Aged Out No longer eligible based on patient's age to complete this topic MENINGOCOCCAL VACCINE Aged Out No moe ike eligible based on patient's age to complete this topic Procedures Procedure Name Priority Date/Time Associated Diagnosis Comments CARDIAC RHYTHM STRIP ORDER 08/08/2024 11:03 PM ACCOUNTS ADMINISTRATOR APHERESIS/TRANSFUSIO N ORDER 08/08/2024 11:03 PM ACCOUNTS ADMINISTRATOR B-TYPE NATRIURETIC PEPTIDE AM Draw 08/07/2024 1:59 AM ACCOUNTS ADMINISTRATOR COMPREHENSIVE METABOLIC PANEL AM Draw 08/07/2024 1:59 AM ACCOUNTS ADMINISTRATOR VAS BILATERAL VENOUS DUPLEX LE PENDING DISCHARGE 08/06/2024 2:30 PM ACCOUNTS ADMINISTRATOR Bilateral leg edema MAGNESIUM BLOOD Routine 08/06/2024 6:07 AM ACCOUNTS ADMINISTRATOR BASIC METABOLIC PANEL (CALCIUM TOTAL) Routine 08/06/2024 6:07 AM ACCOUNTS ADMINISTRATOR PHOSPHORUS BLOOD Routine 08/06/2024 6:07 AM ACCOUNTS ADMINISTRATOR MRI LUMBAR SPINE WO CONTRAST Routine 08/05/2024 9:48 AM ACCOUNTS ADMINISTRATOR Acute midline low back pain without sciatica PHOSPHORUS BLOOD Routine 08/05/2024 6:53 AM ACCOUNTS ADMINISTRATOR COMPREHENSIVE METABOLIC PANEL AM Draw 08/05/2024 6:53 AM ACCOUNTS ADMINISTRATOR MAGNESIUM BLOOD AM Draw 08/05/2024 6:53 AM ACCOUNTS ADMINISTRATOR CBC W AUTO DIFFERENTIAL AM Draw 08/05/2024 6:53 AM ACCOUNTS ADMINISTRATOR PROTEIN URINE TIMED QUANTITATIVE Routine 08/04/2024 1:55 PM ACCOUNTS ADMINISTRATOR URIC ACID URINE TIMED Routine 08/04/2024 1:55 PM ACCOUNTS ADMINISTRATOR CREATININE CLEARANCE URINE TIMED + BLOOD Routine 08/04/2024 1:55 PM ACCOUNTS ADMINISTRATOR CALCIUM URINE TIMED Routine 08/04/2024 1 :55 PM ACCOUNTS ADMINISTRATOR COMPREHENSIVE METABOLIC PANEL AM Draw 08/04/2024 6:55 AM ACCOUNTS ADMINISTRATOR MAGNESIUM BLOOD AM Draw 08/04/2024 6:55 AM ACCOUNTS ADMINISTRATOR CBC W AUTO DIFFERENTIAL AM Draw 08/04/2024 6:55 AM ACCOUNTS ADMINISTRATOR URINALYSIS REFLEX TO MICROSCOPIC NO CULTURE Routine 08/03/2024 12:49 PM ACCOUNTS ADMINISTRATOR COMPREHENSIVE METABOLIC PANEL AM Draw 08/03/2024 9:26 AM ACCOUNTS ADMINISTRATOR MAGNESIUM BLOOD AM Draw 08/03/2024 9:26 AM ACCOUNTS ADMINISTRATOR CBC W AUTO DIFFERENTIAL AM Draw 08/03/2024 9:26 AM ACCOUNTS ADMINISTRATOR XR LUMBAR SPINE 2 OR 3VW Routine 08/02/2024 2:10 PM ACCOUNTS ADMINISTRATOR Acute midline low back pain without sciatica PTH INTACT W/O CALCIUM Routine 08/02/2024 3:19 AM ACCOUNTS ADMINISTRATOR MAGNESIUM BLOOD AM Draw 08/02/2024 3:19 AM ACCOUNTS ADMINISTRATOR RENAL FUNCTION PANEL AM Draw 08/02/2024 3:19 AM ACCOUNTS ADMINISTRATOR CBC W AUTO DIFFERENTIAL AM Draw 08/02/2024 3:19 AM ACCOUNTS ADMINISTRATOR CALCIUM BLOOD STAT 08/01/2024 3:41 AM ACCOUNTS ADMINISTRATOR MAGNESIUM BLOOD AM Draw 08/01/2024 1:20 AM ACCOUNTS ADMINISTRATOR RENAL FUNCTION PANEL AM Draw 08/01/2024 1:20 AM ACCOUNTS ADMINISTRATOR CBC W AUTO DIFFERENTIAL AM Draw 08/01/2024 1:20 AM ACCOUNTS ADMINISTRATOR HGB HCT PANEL Timed 07/31/2024 7:39 AM ACCOUNTS ADMINISTRATOR TRANSFUSE RED BLOOD CELL LEUKOREDUCED UNIT(S) Routine 07/31/2024 3:40 AM ACCOUNTS ADMINISTRATOR PREPARE RBC LEUKOREDUCED UNIT Routine 07/31/2024 3:35 AM ACCOUNTS ADMINISTRATOR MAGNESIUM BLOOD AM Draw 07/31/2024 2:15 AM ACCOUNTS ADMINISTRATOR RENAL FUNCTION PANEL AM Draw 07/31/2024 2:15 AM ACCOUNTS ADMINISTRATOR CBC W AUTO DIFFERENTIAL AM Draw 07/31/2024 2:15 AM ACCOUNTS ADMINISTRATOR VITAMIN D 25-HYDROXY AM Draw 07/31/2024 2:15 AM ACCOUNTS ADMINISTRATOR VITAMIN B12 AM Draw 07/31/2024 2:15 AM ACCOUNTS ADMINISTRATOR FOLATE Routine 07/31/2024 2:15 AM ACCOUNTS ADMINISTRATOR IRON + TRANSFERRIN PANEL Routine 07/31/2024 2:15 AM ACCOUNTS ADMINISTRATOR HGB HCT PANEL Timed 07/30/2024 10:03 AM ACCOUNTS ADMINISTRATOR TRANSFUSE RED BLOOD CELL LEUKOREDUCED UNIT(S) Routine 07/30/2024 5:20 AM ACCOUNTS ADMINISTRATOR PREPARE RBC LEUKOREDUCED UNIT Routine 07/30/2024 5:15 AM ACCOUNTS ADMINISTRATOR BLOOD TYPE VERIFICATION Routine 07/30/2024 2:06 AM ACCOUNTS ADMINISTRATOR CBC W/O DIFFERENTIAL AM Draw 07/30/2024 2:06 AM ACCOUNTS ADMINISTRATOR PT-INR AM Draw 07/30/2024 2:06 AM ACCOUNTS ADMINISTRATOR BASIC METABOLIC PANEL (CALCIUM TOTAL) AM Draw 07/30/2024 2:06 AM ACCOUNTS ADMINISTRATOR HGB HCT PANEL Timed 07/29/2024 9:08 PM ACCOUNTS ADMINISTRATOR US ABDOMEN LIMITED Routine 07/29/2024 2: 29 PM ACCOUNTS ADMINISTRATOR Gastrointestinal hemorrhage with melena HGB HCT PANEL Routine 07/29/2024 10:19 AM ACCOUNTS ADMINISTRATOR PT-INR AM Draw 07/29/2024 10:19 AM ACCOUNTS ADMINISTRATOR GA ED EGD FLEX TRANSORAL DX 07/29/2024 8:30 AM ACCOUNTS ADMINISTRATOR EGD Routine 07/29/2024 6:57 AM ACCOUNTS ADMINISTRATOR CBC W/O DIFFERENTIAL Routine 07/29/2024 6:42 AM ACCOUNTS ADMINISTRATOR COMPREHENSIVE METABOLIC PANEL Routine 07/29/2024 6:42 AM ACCOUNTS ADMINISTRATOR MAGNESIUM BLOOD Routine 07/29/2024 6:42 AM ACCOUNTS ADMINISTRATOR PHOSPHORUS BLOOD Routine 07/29/2024 6:42 AM ACCOUNTS ADMINISTRATOR CULTURE BLOOD Timed 07/28/2024 10:03 PM ACCOUNTS ADMINISTRATOR CULTURE BLOOD Timed 07/28/2024 8:16 PM ACCOUNTS ADMINISTRATOR TYPE + SCREEN PANEL Routine 07/28/2024 6 :52 PM ACCOUNTS ADMINISTRATOR COMPREHENSIVE METABOLIC PANEL STAT 07/28/2024 5:25 PM ACCOUNTS ADMINISTRATOR CBC W/O DIFFERENTIAL STAT 07/28/2024 5:25 PM ACCOUNTS ADMINISTRATOR from Last 3 Months Results * CARDIAC RHYTHM STRIP ORDER (08/08/2024 11:03 PM ACCOUNTS ADMINISTRATOR) Narrative 08/08/2024 11:03 PM ACCOUNTS ADMINISTRATOR Ordered by an unspecified provider. Scanned Document CARDIAC SERVICES ORD ERABLES * APHERESIS/TRANSFUSION ORDER (08/08/2024 11:03 PM ACCOUNTS ADMINISTRATOR) Narrative 08/08/2024 11:03 PM ACCOUNTS ADMINISTRATOR Ordered by an unspecified provider. Scanned Document NURSING - VITAL SIGN S AND ASSESSMENT * B-TYPE NATRIURETIC PEPTIDE (08/07/2024 1:59 AM ACCOUNTS ADMINISTRATOR) BNP 35 <=100 pg/mL 08/07/2024 2:52 AM ACCOUNTS ADMINISTRATOR [facility] Blood BLOOD SPECIMEN / Unknown Venipuncture / Unknown 08/07/2024 1:59 AM ACCOUNTS ADMINISTRATOR 08/07/2024 2:19 AM ACCOUNTS ADMINISTRATOR Chika Chew MD LAB - CHEMISTRY ORDE DORITA [facility] [address] [place] [address] * (ABNORMAL) COMPREHENSIVE METABOLIC PANEL (08/07/2024 1:59 AM ACCOUNTS ADMINISTRATOR) Only the most recent of6 resultswithin the time period is included. Glucose 97 70 - 99 mg/dL 08/07/2024 2:55 AM ACCOUNTS ADMINISTRATOR [facility] Sodium 136 136 - 145 mmol/L 08/07/2024 2:55 AM [facility] Potassium 3.9 3.5 - 5.1 mmol/L 08/07/2024 2:55 AM [facility] Chloride 104 98 - 107 mmol/L 08/07/2024 2:55 AM [facility] CO2 23 22 - 29 mmol/L 08/07/2024 2:55 AM [facility] Calcium 6.8(L) 8.4 - 10.4 mg/dL 08/07/2024 2:55 AM [facility] Anion Gap 9 6 - 16 mmol/L 08/07/2024 2:55 AM [facility] BUN 9 7 - 26 mg/dL 08/07/2024 2:55 AM [facility] Creatinine 0.95 0.57 - 1.11 mg/dL 08/07/2024 2:55 AM [facility] Alkaline Phosphatase 91 40 - 150 U/L 08/07/2024 2:55 AM [facility] ALT 21 0 - 55 U/L 08/07/2024 2:55 AM [facility] AST 28 5 - 34 U/L 08/07/2024 2:55 AM [facility] Protein Total 4.9(L) 6.4 - 8.3 gm/dL 08/07/2024 2:55 AM [facility] Albumin 2.1(L) 3.4 - 5.0 gm/dL 08/07/2024 2:55 AM [facility] Bilirubin Total 0.6 0.2 - 1.2 mg/dL 08/07/2024 2:55 AM [facility] eGFR by CKD-EPI 66(L) >=90 mL/min/1.7 3 m2 08/07/2024 2:55 AM [facility] Blood BLOOD SPECIMEN / Unknown Venipuncture / Unknown 08/07/2024 1:59 AM ACCOUNTS ADMINISTRATOR 08/07/2024 2:19 AM [facility] Chika Chew MD LAB - CHEMISTRY AIDEN KEVIN [facility] Organization Address City/State/ZIP Co de Phone Number [facility] [address] [place] [address] * VAS Bilateral Venous Duplex Le (08/06/2024 2:30 PM ACCOUNTS ADMINISTRATOR) Anatomical Region Laterality Modality Lower Extremity Ultrasound 08/06/2024 1:50 PM ACCOUNTS ADMINISTRATOR Narrative Procedure Note Jorge Barakat MD - 08/07/[address] [address] Lower Extremity Venous Ultrasound Report Pat.Name: SARAHY RODRIGUEZ Pat.ID: [id number] St.Date: 08/06/2024 Exam Time: 1:50:00 PM Study Type:LE Venous Age: 1 1960,64Y Sex: FEMALE Sonogrphr: Binh Eldridge RVT Pat. Stat.:Inpatient Room: [facility] ICD - 9: R60.0 CPT - 4: 93111 Reason for Study: Bilateral leg edema History / Clinical: CKD, Liver cirrhosis Procedures: Lower Extremity Venous - Bilateral Race: 1 Visit ID: [id number] ++++++++++++++++++++++++++++++++++++ SUMMARY: ++++++++++++++++++++++++++++++++++++ There is no evidence [...] METABOLIC PANEL (CALCIUM TOTAL) (08/06/2024 6:07 AM ACCOUNTS ADMINISTRATOR) Only the most recent of2 resultswithin the time period is included. Glucose 87 70 - 99 mg/dL 08/06/2024 8:46 AM [facility] Sodium 137 136 - 145 mmol/L 08/06/2024 8:46 AM [facility] Potassium 3.0(L) 3.5 - 5.1 mmol/L 08/06/2024 8:46 AM [facility] Chloride 103 98 - 107 mmol/L 08/06/2024 8:46 AM [facility] CO2 27 22 - 29 mmol/L 08/06/2024 8:46 AM [facility] Calcium 6.7(L) 8.4 - 10.4 mg/dL 08/06/2024 8:46 AM [facility] Anion Gap 7 6 - 16 mmol/L 08/06/2024 8:46 AM [facility] BUN 7 7 - 26 mg/dL 08/06/2024 8:46 AM [facility] Creatinine 0.81 0.57 - 1.11 mg/dL 08/06/2024 8:46 AM [facility] eGFR by CKD-EPI 81(L) >=90 mL/min/1.7 3 m2 08/06/2024 8:46 AM [facility] Blood BLOOD SPECIMEN / Unknown Venipuncture / Unknown 08/06/2024 6:07 AM ACCOUNTS ADMINISTRATOR 08/06/2024 6:11 AM [facility] Cihka Chew MD LAB - CHEMISTRY AIDEN KEVIN [facility] Organization Address City/State/ZIP Co de Phone Number [facility] [address] [place] [address] * PHOSPHORUS BLOOD (08/06/2024 6:07 AM ACCOUNTS ADMINISTRATOR) Only the most recent of3 resultswithin the time period is included. Phosphorus 3.7 2.5 - 4.5 mg/dL 08/06/2024 6:27 AM ACCOUNTS ADMINISTRATOR [facility] Blood BLOOD SPECIMEN / Unknown Venipuncture / Unknown 08/06/2024 6:07 AM ACCOUNTS ADMINISTRATOR 08/06/2024 6:11 AM ACCOUNTS ADMINISTRATOR Miguel Angel Mccain MD LAB - CHEMISTRY ORDKyle KEVIN Performing Organization Address [facility] de Phone Number [facility] [address] [place] [address] * MAGNESIUM BLOOD (08/06/2024 6:07 AM ACCOUNTS ADMINISTRATOR) Only the most recent of8 resultswithin the time period is included. Magnesium 1.7 1.6 - 2.6 mg/dL 08/06/2024 8:43 AM ACCOUNTS ADMINISTRATOR [facility] Blood BLOOD SPECIMEN / Unknown Venipuncture / Unknown 08/06/2024 6:07 AM ACCOUNTS ADMINISTRATOR 08/06/2024 6:11 AM ACCOUNTS ADMINISTRATOR Chika Chew MD LAB - CHEMISTRY AIDEN KEVIN Performing Organization Address [facility] de Phone Number [facility] [address] [place] [address] * MRI Lumbar Spine Wo Contrast (08/05/2024 9:48 AM ACCOUNTS ADMINISTRATOR) Anatomical Region Laterality Modality Spine Magnetic Resonan ce 08/05/2024 9:51 AM ACCOUNTS ADMINISTRATOR Impressions 08/05/2024 11:53 AM ACCOUNTS ADMINISTRATOR IMPRESSION: Multilevel degenerative disc and joint disease. Mild foraminal narrowing at L3-L4 and L4-L5 levels. No canal narrowing seen. Minimal superior endplate compression at T12, associated with mild marrow edema, less than 25% loss of vertical height. Edited by Tressa Phillips on 08/05/2024 10:17 AM > Interpreting Provider: Stefani Zepeda MD on 08/05/2024 11:53 AM Narrative 08/05/2024 11:53 AM ACCOUNTS ADMINISTRATOR PROCEDURE: MRI LUMBAR SPINE WO CONTRAST DATE/TIME [...] CBC W AUTO DIFFERENTIAL (08/05/2024 6:53 AM ACCOUNTS ADMINISTRATOR) Only the most recent of6 resultswithin the time period is included. WBC 6.8 4.0 - 10.7 x10E9/L 08/05/2024 7:01 AM ACCOUNTS ADMINISTRATOR [facility] RBC Count 2.80(L) 3.90 - 5.20 x10E12/L 08/05/2024 7:01 AM ACCOUNTS ADMINISTRATOR [facility] Hemoglobin 8.6(L) 11.9 - 15.8 g/dL 08/05/2024 7:01 AM ACCOUNTS ADMINISTRATOR [facility] Hematocrit 26.3(L) 34.8 - 46.1 % 08/05/2024 7:01 AM ACCOUNTS ADMINISTRATOR [facility] MCV 93.9 80.0 - 98.0 fL 08/05/2024 7:01 AM ACCOUNTS ADMINISTRATOR [facility] MCH 30.7 26.7 - 33.6 pg 08/05/2024 7:01 AM ACCOUNTS ADMINISTRATOR [facility] MCHC 32.7 31.7 - 36.3 g/dL 08/05/2024 7:01 AM ACCOUNTS ADMINISTRATOR [facility] RDW-CV 17.6(H) 11.3 - 14.8 % 08/05/2024 7:01 AM [facility] Platelet Count 111(L) 150 - 420 x10E9/L 08/05/2024 7:01 AM [facility] MPV 10.1 7.8 - 11.4 fL 08/05/2024 7:01 AM [facility] Neutrophil % 70.0 41.0 - 74.0 % 08/05/2024 7:01 AM [facility] Lymphocyte % 13.8(L) 17.0 - 47.0 % 08/05/2024 7:01 AM [facility] Monocyte % 11.7(H) 3.0 - 11.0 % 08/05/2024 7:01 AM [facility] Eosinophil % 3.7 0.0 - 7.0 % 08/05/2024 7:01 AM [facility] Basophil % 0.4 0.0 - 1.6 % 08/05/2024 7:01 AM [facility] Immature Granulocytes % 0.4 0.0 - 1.0 % 08/05/2024 7:01 AM [facility] Neutrophil Absolute 4.76 1.60 - 7.50 x10E9/L 08/05/2024 7:01 AM [facility] Lymphocyte Absolute 0.94(L) 1.00 - 4.40 x10E9/L 08/05/2024 7:01 AM [facility] Monocyte Absolute 0.80 0.15 - 1.00 x10E9/L 08/05/2024 7:01 AM [facility] Eosinophil Absolute 0.25 0.00 - 0.60 x10E9/L 08/05/2024 7:01 AM [facility] Basophil Absolute 0.03 0.00 - 0.13 x10E9/L 08/05/2024 7:01 AM [facility] Blood BLOOD SPECIMEN / Unknown Venipuncture / Unknown 08/05/2024 6:53 AM ACCOUNTS ADMINISTRATOR 08/05/2024 6:57 AM [facility] Miguel Angel Mccain MD LAB - HEMATOLOGY ORD ERABLES [facility] [address] [place] [address] * URIC ACID URINE TIMED (08/04/2024 1:55 PM ACCOUNTS ADMINISTRATOR) Uric Acid 24 Hour Urine 205.0 142.3 - 713.2 mg/24 hr 08/06/2024 11:10 AM [facility] ([facility]) Uric Acid Urine 20.5 Not Estab. mg/dL 08/06/2024 11:10 AM [facility] ([facility]) Urine TIMED URINE SPECIMEN / Unknown Timed Urine Volume Measurement / Unknown 08/04/2024 1:55 PM ACCOUNTS ADMINISTRATOR 08/04/2024 2:02 PM ACCOUNTS ADMINISTRATOR Narrative [facility] ([facility]) - 08/06/2024 11:10 AM ACCOUNTS ADMINISTRATOR Performed at: - [address] [id number] [employer] Instructor: El Sood PhD, Phone: [phone] Pete Olmos MD LAB - URINE CHEMISTR Y ORDERABLES Performing Organization Address City/[facility] Co de Phone Number [facility] ([facility]) [address] [place] [address] * PROTEIN URINE TIMED QUANTITATIVE (08/04/2024 1:55 PM ACCOUNTS ADMINISTRATOR) Volume 24 Hour Urine 1,000 mL 08/04/2024 2:25 PM ACCOUNTS ADMINISTRATOR [facility] Collection Time Hours 24 hrs 08/04/2024 2:25 PM ACCOUNTS ADMINISTRATOR [facility] Protein 24 Hour Urine 72 <300 mg/24hr 08/04/2024 2:25 PM ACCOUNTS ADMINISTRATOR [facility] Protein Urine 7.2 <11.9 mg/dL 08/04/2024 2:25 PM ACCOUNTS ADMINISTRATOR [facility] Urine TIMED URINE SPECIMEN / Unknown Timed Urine Volume Measurement / Unknown 08/04/2024 1:55 PM ACCOUNTS ADMINISTRATOR 08/04/2024 2:02 PM ACCOUNTS ADMINISTRATOR Pete Olmos MD LAB - URINE CHEMISTR Y ORDERABLES [facility] [address] [place] [id number] * CREATININE CLEARANCE URINE TIMED + BLOOD (08/04/2024 1:55 PM ACCOUNTS ADMINISTRATOR) Volume 24 Hour Urine 1,000 mL 08/04/2024 2:28 PM [facility] Collection Time Hours 24 hrs 08/04/2024 2:28 PM [facility] Height Inches 65 inches 08/04/2024 2:28 PM [facility] Weight in Pounds 160 pounds 08/04/2024 2:28 PM [facility] Surface Area 1.80 08/04/2024 2:28 PM [facility] Creatinine 0.81 0.57 - 1.11 mg/dL 08/04/2024 2:28 PM [facility] Creatinine Urine 82.74 mg/dL 08/04/2024 2:28 PM [facility] Creatinine 24 Hour Urine 827 710 - 1,650 mg/24hr 08/04/2024 2:28 PM [facility] Creatinine Clearance 68 66 - 165 mL/min/1.73 m2 08/04/2024 2:28 PM [facility] Urine TIMED URINE SPECIMEN / Unknown Timed Urine Volume Measurement / Unknown 08/04/2024 1:55 PM ACCOUNTS ADMINISTRATOR 08/04/2024 2:02 PM [facility] Pete Olmos MD LAB - URINE CHEMISTR Y ORDERABLES [facility] [address] [place] [address] * (ABNORMAL) CALCIUM URINE TIMED (08/04/2024 1:55 PM [facility]) Calcium Random Urine <2.0 Not Established mg/dL 08/04/2024 7:00 PM [facility] Collection Time Timed Urine 24 Hrs 08/04/2024 7:00 PM [facility] Calcium 24 Hour Urine <20(L) 50 - 300 mg/24 hrs 08/04/2024 7:00 PM [facility] Comment:Unable to calculate excretion rate because the analyte concentration is outside the instrument measuring range. Volume Timed Urine 1,000 mL 08/04/2024 7:00 PM [facility] Urine TIMED URINE SPECIMEN / Unknown Timed Urine Volume Measurement / Unknown 08/04/2024 1:55 PM ACCOUNTS ADMINISTRATOR 08/04/2024 2:02 PM ACCOUNTS ADMINISTRATOR Pete Olmos MD LAB - URINE CHEMISTR Y ORDERABLES [facility] [address] [place] [address], [place] [phone] * (ABNORMAL) URINALYSIS REFLEX TO MICROSCOPIC NO CULTURE (08/03/2024 12:49 PM ACCOUNTS ADMINISTRATOR) Color UA Yellow Yellow, Straw 08/03/2024 1:30 PM ACCOUNTS ADMINISTRATOR [facility] Clarity UA Clear Clear 08/03/2024 1:30 PM ACCOUNTS ADMINISTRATOR [facility] Glucose UA Normal Normal 08/03/2024 1:30 PM ACCOUNTS ADMINISTRATOR [facility] Bilirubin UA Negative Negative 08/03/2024 1:30 PM ACCOUNTS ADMINISTRATOR [facility] Ketone UA Negative Negative 08/03/2024 1:30 PM ACCOUNTS ADMINISTRATOR [facility] Specific Friendly UA 1.013 1.005 - 1.030 08/03/2024 1:30 PM ACCOUNTS ADMINISTRATOR [facility] Blood UA Negative Negative 08/03/2024 1:30 PM ACCOUNTS ADMINISTRATOR [facility] pH UA 7.5 5.0 - 9.0 pH 08/03/2024 1:30 PM ACCOUNTS ADMINISTRATOR [facility] Protein UA Negative Negative 08/03/2024 1:30 PM ACCOUNTS ADMINISTRATOR [facility] Urobilinogen UA Normal Normal mg/dL 08/03/2024 1:30 PM ACCOUNTS ADMINISTRATOR [facility] Nitrite UA Negative Negative 08/03/2024 1:30 PM ACCOUNTS ADMINISTRATOR [facility] Leukocyte UA 75 JAQUI/uL(A) Negative 08/03/2024 1:30 PM ACCOUNTS ADMINISTRATOR [facility] RBC UA 0-2 0 - 5 # /hpf 08/03/2024 1:30 PM ACCOUNTS ADMINISTRATOR [facility] WBC UA 6-10(A) 0 - 5 # /hpf 08/03/2024 1:30 PM ACCOUNTS ADMINISTRATOR [facility] Bacteria UA Trace(A) None Seen 08/03/2024 1:30 PM ACCOUNTS ADMINISTRATOR [facility] Squamous Epithelial Cells 0-2 0 - 5 /hpf 08/03/2024 1:30 PM ACCOUNTS ADMINISTRATOR [facility] Budding Yeast Few(A) None seen /hpf 08/03/2024 1:30 PM ACCOUNTS ADMINISTRATOR [facility] Urine URINE SPECIMEN OBTAINED BY CLEAN CATCH PROCEDURE / Unknown Collection / Unknown 08/03/2024 12:49 PM ACCOUNTS ADMINISTRATOR 08/03/2024 12:53 PM ACCOUNTS ADMINISTRATOR Narrative [facility] - 08/03/2024 1:30 PM ACCOUNTS ADMINISTRATOR Pete Olmos MD LAB - URINALYSIS ORD ERABLES [facility] [address] [place] [address] * XR Lumbar Spine 2 or 3Vw (08/02/2024 2:10 PM ACCOUNTS ADMINISTRATOR) Anatomical Region Laterality Modality Spine Computed Radiogr aphy 08/02/2024 2:26 PM ACCOUNTS ADMINISTRATOR Narrative 08/02/2024 2:29 PM ACCOUNTS ADMINISTRATOR EXAM: XR LUMBAR SPINE 2 OR 3VW [...] PTH INTACT W/O CALCIUM (08/02/2024 3:19 AM ACCOUNTS ADMINISTRATOR) PTH Intact 275.2(H) 8.7 - 77.1 pg/mL 08/02/2024 4:05 AM [facility] Blood BLOOD SPECIMEN / Unknown Venipuncture / Unknown 08/02/2024 3:19 AM ACCOUNTS ADMINISTRATOR 08/02/2024 3:30 AM [facility] Miguel Angel Mccain MD LAB - CHEMISTRY AIDEN KEVIN [facility] Organization Address City/State/ZIP Co de Phone Number [facility] [address] [place] [address] * (ABNORMAL) RENAL FUNCTION PANEL (08/02/2024 3:19 AM ACCOUNTS ADMINISTRATOR) Only the most recent of3 resultswithin the time period is included. Glucose 112(H) 70 - 99 mg/dL 08/02/2024 4:06 AM [facility] Sodium 140 136 - 145 mmol/L 08/02/2024 4:06 AM [facility] Potassium 3.1(L) 3.5 - 5.1 mmol/L 08/02/2024 4:06 AM [facility] Chloride 103 98 - 107 mmol/L 08/02/2024 4:06 AM [facility] CO2 28 22 - 29 mmol/L 08/02/2024 4:06 AM [facility] Calcium 5.8(LL) 8.4 - 10.4 mg/dL 08/02/2024 4:06 AM [facility] Anion Gap 9 6 - 16 mmol/L 08/02/2024 4:06 AM [facility] BUN 4(L) 7 - 26 mg/dL 08/02/2024 4:06 AM [facility] Creatinine 0.75 0.57 - 1.11 mg/dL 08/02/2024 4:06 AM [facility] Albumin 2.4(L) 3.4 - 5.0 gm/dL 08/02/2024 4:06 AM [facility] Phosphorus 2.4(L) 2.5 - 4.5 mg/dL 08/02/2024 4:06 AM [facility] eGFR by CKD-EPI 88(L) >=90 mL/min/1.7 3 m2 08/02/2024 4:06 AM [facility] Blood BLOOD SPECIMEN / Unknown Venipuncture / Unknown 08/02/2024 3:19 AM ACCOUNTS ADMINISTRATOR 08/02/2024 3:30 AM ACCOUNTS ADMINISTRATOR Miguel Angel Mccain MD LAB - CHEMISTRY AIDEN KEVIN Performing Organization Address [facility] de Phone Number [facility] [address] [place] [address] * (ABNORMAL) CALCIUM BLOOD (08/01/2024 3:41 AM ACCOUNTS ADMINISTRATOR) Calcium 5.4(LL) 8.4 - 10.4 mg/dL 08/01/2024 4:21 AM ACCOUNTS ADMINISTRATOR [facility] Blood BLOOD SPECIMEN / Unknown Venipuncture / Unknown 08/01/2024 3:41 AM ACCOUNTS ADMINISTRATOR 08/01/2024 3:52 AM ACCOUNTS ADMINISTRATOR Peewee Esquivel DO LAB - CHEMISTRY AIDEN KEVIN Performing Organization Address [facility] de Phone Number [facility] [address] [place] [address] * (ABNORMAL) HGB HCT PANEL (07/31/2024 7:39 AM ACCOUNTS ADMINISTRATOR) Only the most recent of4 resultswithin the time period is included. Hemoglobin 8.3(L) 11.9 - 15.8 g/dL 07/31/2024 7:47 AM ACCOUNTS ADMINISTRATOR [facility] Hematocrit 23.7(L) 34.8 - 46.1 % 07/31/2024 7:47 AM ACCOUNTS ADMINISTRATOR [facility] Blood BLOOD SPECIMEN / Unknown Venipuncture / Unknown 07/31/2024 7:39 AM ACCOUNTS ADMINISTRATOR 07/31/2024 7:43 AM ACCOUNTS ADMINISTRATOR Cruz Whitfield MD LAB - HEMATOLOGY OR DERABLES Performing Organization Address [facility] de Phone Number [facility] [address] [place] [address] * TRANSFUSE RED BLOOD CELL LEUKOREDUCED UNIT(S) (07/31/2024 5:59 AM ACCOUNTS ADMINISTRATOR) Peewee Esquivel DO NURSING - BLOOD PROD TRANSFUSION * PREPARE (CROSSMATCH) RBC UNIT(S), 1 Units (07/31/2024 3:35 AM ACCOUNTS ADMINISTRATOR) Only the most recent of2 resultswithin the time period is included. Pathologist [facility] Unit Description AS1 LR PRBC [facility] Unit ABO B [facility] Rh POS [facility] Product Number R02 [facility] Unit Donor # [id number] [facility] Unit Status transfused [facility] Product [facility] [id number] [facility] Blood Type Barcode 7300 [facility] Expiration Date [id number] D [facility] Blood Bank BLOOD SPECIMEN / Unknown 07/28/2024 8:53 PM ACCOUNTS ADMINISTRATOR Miguel Angel Mccain MD LAB - BLOOD BANK ORD ERABLES Performing Organization Address City/[facility]/ZIP Co de Phone Number [facility] [address] [place], [place] [address] [phone] * (ABNORMAL) VITAMIN D 25-HYDROXY (07/31/2024 2:15 AM ACCOUNTS ADMINISTRATOR) Pathologist [facility] Vitamin D, 25 Hydroxy 12.3(L) 30 - 80 ng/mL 07/31/2024 3:23 AM ACCOUNTS ADMINISTRATOR [facility] Blood BLOOD SPECIMEN / Unknown Venipuncture / Unknown 07/31/2024 2:15 AM ACCOUNTS ADMINISTRATOR 07/31/2024 2:22 AM ACCOUNTS ADMINISTRATOR Narrative [facility] - 07/31/2024 3:23 AM ACCOUNTS ADMINISTRATOR Vitamin D Status: Deficiency <20 ng/mL Insufficiency 20-30 ng/mL Sufficiency 30-100 ng/mL Toxicity >100 ng/mL Migue lAngel Mccain MD LAB - CHEMISTRY ORDE DORITA [facility] [id number] [place] [address] * (ABNORMAL) FOLATE (07/31/2024 2:15 AM ACCOUNTS ADMINISTRATOR) Pathologist [facility] Folate 5.2(L) 7.0 - 31.4 ng/mL 07/31/2024 3:23 AM ACCOUNTS ADMINISTRATOR [facility] Blood BLOOD SPECIMEN / Unknown Venipuncture / Unknown 07/31/2024 2:15 AM ACCOUNTS ADMINISTRATOR 07/31/2024 2:22 AM ACCOUNTS ADMINISTRATOR Miguel Angel Mccain MD LAB - CHEMISTRY AIDEN KEVIN Performing Organization Address [facility] Co de Phone Number [facility] [id number] [place] [address] * (ABNORMAL) VITAMIN B12 (07/31/2024 2:15 AM ACCOUNTS ADMINISTRATOR) Vitamin B12 >2,000(H) 213 - 816 pg/mL 07/31/2024 3:27 AM ACCOUNTS ADMINISTRATOR [facility] Blood BLOOD SPECIMEN / Unknown Venipuncture / Unknown 07/31/2024 2:15 AM ACCOUNTS ADMINISTRATOR 07/31/2024 2:22 AM ACCOUNTS ADMINISTRATOR Miguel Angel Mccain MD LAB - CHEMISTRY AIDEN KEVIN Performing Organization Address [facility] de Phone Number [facility] [address] [place] [address] * (ABNORMAL) IRON + TRANSFERRIN PANEL (07/31/2024 2:15 AM ACCOUNTS ADMINISTRATOR) Pathologist [facility] Iron 84 40 - 150 ug/dL 07/31/2024 2:55 AM ACCOUNTS ADMINISTRATOR [facility] Transferrin 123(L) 174 - 382 mg/dL 07/31/2024 2:55 AM ACCOUNTS ADMINISTRATOR [facility] TIBC Calculated 154(L) 240 - 450 ug/dL 07/31/2024 2:55 AM ACCOUNTS ADMINISTRATOR [facility] Iron Saturation % 55(H) 20 - 50 % 07/31/2024 2:55 AM ACCOUNTS ADMINISTRATOR [facility] Blood BLOOD SPECIMEN / Unknown Venipuncture / Unknown 07/31/2024 2:15 AM ACCOUNTS ADMINISTRATOR 07/31/2024 2:22 AM ACCOUNTS ADMINISTRATOR Miguel Angel Mccain MD LAB - CHEMISTRY AIDEN KEVIN Performing Organization Address [facility] Co de Phone Number [facility] [address] [place] [address] * TRANSFUSE RED BLOOD CELL LEUKOREDUCED UNIT(S) (07/30/2024 7:41 AM ACCOUNTS ADMINISTRATOR) Peewee Esquivel NURSING - BLOOD PROD TRANSFUSION * BLOOD TYPE VERIFICATION (07/30/2024 2:06 AM ACCOUNTS ADMINISTRATOR) ABO Rh B POS 07/30/2024 4:2 5 AM ACCOUNTS ADMINISTRATOR [facility] Blood Bank BLOOD SPECIMEN / Unknown Venipuncture / Unknown 07/30/2024 2:06 AM ACCOUNTS ADMINISTRATOR 07/30/2024 3:11 AM ACCOUNTS ADMINISTRATOR Yi Grier MD LAB - BLOOD BANK ORD ERABLES Performing Organization Address City/[facility] Co de Phone Number [facility] [address] [phone] * (ABNORMAL) PT-INR (07/30/2024 2:06 AM ACCOUNTS ADMINISTRATOR) Only the most recent of2 resultswithin the time period is included. PT 19.8(H) 12.1 - 14.8 sec 07/30/2024 3:12 AM ACCOUNTS ADMINISTRATOR [facility] Comment:This result represen ts a significant difference from this patient's most recent previous value. Clinical correlation is therefore recommended. INR 1.7(H) 0.9 - 1.1 07/30/2024 3:12 AM ACCOUNTS ADMINISTRATOR [facility] Blood BLOOD SPECIMEN / Unknown Venipuncture / Unknown 07/30/2024 2:06 AM ACCOUNTS ADMINISTRATOR 07/30/2024 2:27 AM ACCOUNTS ADMINISTRATOR Narrative [facility] - 07/30/2024 3:12 AM ACCOUNTS ADMINISTRATOR Conventional Warfarin Anticoagulant Therapy: INR Reference Range: 2.0-3.0 Intensive Warfarin Anticoagulant Therapy: INR Reference Range: 2.5-3.5 Yi Grier MD LAB - COAGULATION OR DERABLES Performing Organization Address City/[facility] Co de Phone Number [facility] [address] [place] [phone] * (ABNORMAL) CBC W/O DIFFERENTIAL (07/30/2024 2:06 AM ACCOUNTS ADMINISTRATOR) Only the most recent of3 resultswithin the time period is included. WBC 12.5(H) 4.0 - 10.7 x10E9/L 07/30/2024 2:30 AM [facility] RBC Count 2.06(L) 3.90 - 5.20 x10E12/L 07/30/2024 2:30 AM [facility] Hemoglobin 6.4(L) 11.9 - 15.8 g/dL 07/30/2024 2:30 AM [facility] Hematocrit 18.7(L) 34.8 - 46.1 % 07/30/2024 2:30 AM [facility] MCV 90.8 80.0 - 98.0 fL 07/30/2024 2:30 AM [facility] MCH 31.1 26.7 - 33.6 pg 07/30/2024 2:30 AM [facility] MCHC 34.2 31.7 - 36.3 g/dL 07/30/2024 2:30 AM [facility] RDW-CV 18.1(H) 11.3 - 14.8 % 07/30/2024 2:30 AM [facility] Platelet Count 161 150 - 420 x10E9/L 07/30/2024 2:30 AM [facility] MPV 10.0 7.8 - 11.4 fL 07/30/2024 2:30 AM [facility] Blood BLOOD SPECIMEN / Unknown Venipuncture / Unknown 07/30/2024 2:06 AM ACCOUNTS ADMINISTRATOR 07/30/2024 2:27 AM ACCOUNTS ADMINISTRATOR Yi Grier MD LAB - HEMATOLOGY ORD ERABLES [facility] [address] [place] [address] * US ABDOMEN LIMITED (RUQ) (07/29/2024 2:29 PM ACCOUNTS ADMINISTRATOR) Anatomical Region Laterality Modality Abdomen Ultrasound 07/29/2024 3:34 PM ACCOUNTS ADMINISTRATOR Impressions 07/30/2024 10:05 AM ACCOUNTS ADMINISTRATOR IMPRESSION: 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 Hepatic steatosis with a mass right lobe most consistent with focal fatty sparing. Lack of ability to compare to the outside images result in decreased sensitivity. > Interpreting Provider: Kameron Sprague MD on 07/30/2024 10:05 AM Narrative 07/30/2024 10:05 AM ACCOUNTS ADMINISTRATOR PROCEDURE: US ABDOMEN LIMITED, DATE/TIME OF EXAM: 07/29/2024 2:29 PM, LOCATION [facility] INDICATION: K92.1: Melena ADDITIONAL CLINICAL INFORMATION: [...] DATE/TIME OF EXAM: 07/29/2024 2:29 PM, LOCATION [facility] INDICATION: K92.1: Melena ADDITIONAL CLINICAL INFORMATION: [...] on 07/30/2024 10:05 AM Fabio Santos MD ORDERABLES * EGD (07/29/2024 6:57 AM ACCOUNTS ADMINISTRATOR) Report Endoscopy POC _ Patient Name: Sarahy Rodriguez Procedure Date: 07/29/2024 6:57 AM Date of : 1960 Admit Type: Inpatient Age: 64 Gender: Female Attending MD: Cathleen Estrada MD, [id number] _ Procedure: Upper GI endoscopy Indications: Melena [...] GI notes Procedure Code(s): --- Professional --- 71626, Esophagogastroduoden oscopy, flexible, transoral; diagnostic, including collection of specimen(s) by brushing or washing, when performed (separate procedure) --- Technical --- 75545, Esophagogastroduoden oscopy, flexible, transoral; diagnostic, including collection [...] states K92.1, Melena (includes Hematochezia) CPT copyright 2021 [employer]. All rights reserved. The codes documented in this report are preliminary and upon traffic or system dispatcher review may be revised to meet current compliance requirements. Cathleen Estrada MD 07/29/2024 9:00:40 AM Number of Addenda: 0 Note Initiated On: 07/29/2024 6:57 AM [facility] 07/29/2024 6:57 AM ACCOUNTS ADMINISTRATOR Narrative Procedure Note Cathleen Estrada MD - [...] Ania Josue MD GI PROCEDURE ORDERAB LES Performing Organization Address City/[facility] Co de Phone Number [facility] [place] [address] * CULTURE BLOOD (07/28/2024 10:03 PM ACCOUNTS ADMINISTRATOR) Only the most recent of2 resultswithin the time period is included. Culture No growth day 5 LINO 08/03/2024 1:30 AM ACCOUNTS ADMINISTRATOR [facility] Blood PERIPHERAL BLOOD / Unknown Venipuncture / Unknown 07/28/2024 10:03 PM ACCOUNTS ADMINISTRATOR 07/28/2024 10:07 PM ACCOUNTS ADMINISTRATOR Fabio Santos MD LAB - MICROBIOLOGY O RDERABLES Performing Organization Address [facility] Co de Phone Number [facility] [address] [place] [address], [facility] [phone] * TYPE + SCREEN PANEL (07/28/2024 6:52 PM ACCOUNTS ADMINISTRATOR) ABO Rh B POS 07/28/2024 9:52 PM ACCOUNTS ADMINISTRATOR [facility] Comment:No history; collect retype. Antibody Screen NEG 9:52 PM ACCOUNTS ADMINISTRATOR [facility] Blood Bank BLOOD SPECIMEN / Unknown Venipuncture / Unknown 07/28/2024 6:52 PM ACCOUNTS ADMINISTRATOR 07/28/2024 8:53 PM ACCOUNTS ADMINISTRATOR Fabio Santos MD LAB - BLOOD BANK ORD ERABLES Performing Organization Address [facility] Co de Phone Number [facility] [address] [place] [address], [facility] [phone] from Last 3 Months Advance Directives Documents on File Type Date Recorded Patient Night Guard Expl anation Adv Directive/Living Will/POA 08/08/2024 10:51 PM Adv Directive/Living Will/POA 08/01/2024 8:23 PM Adv Directive/Living Will/POA 07/31/2024 7:48 PM * Full Code (Latest Code Status on File) Date Activated Date Inactivated Comments 07/28/2024 3:11 PM 08/07/2024 5:49 PM Care Teams Broadcast Checker Relationship Specialty Start Date End Date Priyank Zepeda MD [address] [place] [phone] PCP - General 02/23/22
--- OUTSIDE RECORDS SUMMARY | 2024-08-13 19:09 | XMS_ITS | Patient Health Summary ---
Author Organization [facility] Address [address] [place] [address] Care Team Providers Care Care Director Rn Name Role Phone Priyank Zepeda MD Primary Care Provider [phone] Note from [facility],non-owned Affiliates and Associated Physician Practices is amultiple site organization consisting of ambulatory clinics and hospital sitesin [place], [place], [place] and [place]. This disclosure is being madepursuant to the Care Everywhere program and may not contain all information available regarding this patient. Last updated 18.[facility] Allergies * Adhesive Sensitivity(Itching) * Ciprofloxacin(Itching) * Succinylcholine(Other) Medications * Be aware that medications may not be up to date on this document. Alwaysverify current medications with the patient. * apixaban (Eliquis) 5 MG tablet Take 1 (one) tablet by mouth 2 times daily * ondansetron (Zofran) 4 MG tablet Take 1 (one) tablet by mouth every 8 hours as needed for Nausea/Vomiting * amitriptyline (Elavil) 10 MG tablet Take 1 (one) tablet by mouth 2 times daily * FLUoxetine (PROzac) 40 MG capsule Take 1 (one) capsule by mouth 2 times daily * cyanocobalamin (Vitamin B-12) 500 MCG tablet Take 5 (five) tablets by mouth once daily * Beta Carotene 15 MG Take 30 mg by mouth once daily * alendronate (Fosamax) 10 MG tablet Take 1 (one) tablet by mouth daily before breakfast * levothyroxine (Synthroid) 125 MCG tablet Take 1 (one) tablet by mouth daily before breakfast * Nutritional Supplements (Ensure High Protein) LIQD(Started 08/01/2024) Take 1 container by mouth 2 times daily for 30 days * cholestyramine light (Questran Light; Prevalite) 4 g packet(Started 08/07/2024) Mix 1 packet as directed and take by mouth once daily * ferrous sulfate 325 (65 FE) MG tablet(Started 08/07/2024) Take 1 (one) tablet by mouth once daily after lunch * folic acid (Folvite) 1 MG tablet(Started 08/08/2024) Take 1 (one) tablet by mouth once daily * pantoprazole EC (Protonix) 40 MG tablet(Started 08/07/2024) Take 1 (one) tablet by mouth 2 times daily, before breakfast and supper * sucralfate (Carafate) 1 GM/10ML suspension(Started 08/07/2024) Take 10 mL by mouth 4 times daily - before meals & nightly * Cholecalciferol (vitamin D3) 1.25 MG (03720 UT) capsule(Started 08/09/2024) Take 1 (one) capsule by mouth every 7 days * furosemide (Lasix) 40 MG tablet(Started 08/07/2024) Take 1 (one) tablet by mouth once daily * Calcium Carbonate Antacid (calcium carbonate, 500 mg elemental Ca/5 mL,) 1250 MG/5ML suspension(Started 08/07/2024) Take 10 mL by mouth 3 times daily with meals 1 refill by 08/07/2025 * pancrelipase (Creon 24,000) 39891-72876 units capsule(Started 08/07/2024) Take 1 (one) capsule by mouth 3 times daily with meals * calcitriol (Rocaltrol) 0.5 MCG capsule(Started 08/07/2024) Take 2 (two) capsules by mouth 3 times daily * sodium bicarbonate 650 MG tablet(Started 08/07/2024) Take 1 (one) tablet by mouth 3 times daily Ended Medications* metoprolol succinate XL 24hr (Toprol XL) 50 MG tablet (Discontinued) Take 1 (one) tablet by mouth once daily * potassium chloride ER (Klor-Con M) 20 MEQ tablet(Discontinued) Take 1 (one) tablet by mouth 2 times daily * sodium bicarbonate 650 MG tablet(Discontinued) Take 1 (one) tablet by mouth 4 times daily * Calcium Citrate 250 MG(Discontinued) Take 3 (three) tablets by mouth 3 times daily * pantoprazole EC (Protonix) 40 MG tablet(Discontinued) Take 1 (one) tablet by mouth once daily * calcium carbonate (Tums) 500 MG chew tablet(Discontinued) Take 200 mg by mouth 2 times daily * calcitriol (Rocaltrol) 0.25 MCG capsule(Discontinued) Take 2 (two) capsules by mouth 3 times daily * ferrous sulfate 325 (65 FE) MG tablet(Discontinued) Take 1 (one) tablet by mouth 3 times daily * Calcium Carbonate Antacid (calcium carbonate, 500 mg elemental Ca/5 mL,) 1250 MG/5ML suspension(Started 08/07/2024)(Discontinued) Take 10 mL by mouth 3 times daily with meals 2 refills by 08/07/2025 * sodium bicarbonate 650 MG tablet(Started 08/07/2024)(Discontinued) Take 1 (one) tablet by mouth 3 times daily * pancrelipase (Creon 24,000) 34041-27025 units capsule(Started 08/07/2024) (Discontinued) Take 1 (one) capsule by mouth 3 times daily with meals * calcitriol (Rocaltrol) 0.5 MCG capsule(Started 08/07/2024)(Discontinued) Take 2 (two) capsules by mouth 3 times daily Active Problems Problem Noted Date Diagnosed Date Back pain 08/02/2024 Colitis 07/28/2024 Gastrointestinal hemorrhage with melena 07/28/19 25 Immunizations * COVID PFIZER 12+YR 30MCG/0.3mL(Given 03/19/2024) * INFLUENZA VACCINE, CELL CULTURE, TRIV. (FLUCELVAX TRIVALENT; 6MO+), 0.5 ML (CCIIV3)(Given 03/19/2024) * Zoster Hzv Vacc Recombinant Inj Im(Given 10/09/2023, 04/17/2023) Social History Tobacco Use Types Packs/Day Years [...] medical care, and heating? Somewhat hard 07/28/2024 [facility] Occupat ional Health - Occupational Stress [...] in the past 12 m [facility], were you homeless or living in a skilled nursing (including now)? No 07/28/2024 Sex and Gender Information Value Date Recorded Sex Assigned at Not on file Gender Identity Not on file Sexual Orientation Not on file Last Filed Vital Signs Vital Sign Reading Time Taken Comments Blood Pressure 112/78 08/07/2024 2:44 PM ROUTE DRIVER Pulse 93 08/07/2024 2:44 PM ROUTE DRIVER Temperature 37.5 C (99.5 F) 08/07/2024 11:33 AM ROUTE DRIVER Respiratory Rate 18 08/07/2024 11:3 3 AM ROUTE DRIVER Oxygen Saturation 97% 08/07/2024 2:44 PM ROUTE DRIVER Inhaled Oxygen Concentration - - Weight 87.5 kg (192 lb 14.4 oz) 025 12:04 AM ROUTE DRIVER Height 165.1 cm (5' 5 ) 07/28/2024 4:01 PM ROUTE DRIVER Body Mass Index 32.1 07/28/2024 4:01 PM ROUTE DRIVER Procedures * CARDIAC RHYTHM STRIP ORDER(Performed 08/08/2024) * APHERESIS/TRANSFUSION ORDER(Performed 08/08/2024) * B-TYPE NATRIURETIC PEPTIDE(Performed 08/07/2024) * COMPREHENSIVE METABOLIC PANEL(Performed 08/07/2024) * VAS BILATERAL VENOUS DUPLEX LE(Performed 08/06/2024) Performed for Bilateral leg edema * MAGNESIUM BLOOD(Performed 08/06/2024) * BASIC METABOLIC PANEL (CALCIUM TOTAL)(Performed 08/06/2024) * PHOSPHORUS BLOOD(Performed 08/06/2024) * MRI LUMBAR SPINE WO CONTRAST(Performed 08/05/2024) Performed for Acute midline low back pain without sciatica * PHOSPHORUS BLOOD(Performed 08/05/2024) * COMPREHENSIVE METABOLIC PANEL(Performed 08/05/2024) * MAGNESIUM BLOOD(Performed 08/05/2024) * CBC W AUTO DIFFERENTIAL(Performed 08/05/2024) * PROTEIN URINE TIMED QUANTITATIVE(Performed 08/04/2024) * URIC ACID URINE TIMED(Performed 08/04/2024) * CREATININE CLEARANCE URINE TIMED + BLOOD(Performed 08/04/2024) * CALCIUM URINE TIMED(Performed 08/04/2024) * COMPREHENSIVE METABOLIC PANEL(Performed 08/04/2024) * MAGNESIUM BLOOD(Performed 08/04/2024) * CBC W AUTO DIFFERENTIAL(Performed 08/04/2024) * URINALYSIS REFLEX TO MICROSCOPIC NO CULTURE(Performed 08/03/2024) * COMPREHENSIVE METABOLIC PANEL(Performed 08/03/2024) * MAGNESIUM BLOOD(Performed 08/03/2024) * CBC W AUTO DIFFERENTIAL(Performed 08/03/2024) * XR LUMBAR SPINE 2 OR 3VW(Performed 08/02/2024) Performed for Acute midline low back pain without sciatica * PTH INTACT W/O CALCIUM(Performed 08/02/2024) * MAGNESIUM BLOOD(Performed 08/02/2024) * RENAL FUNCTION PANEL(Performed 08/02/2024) * CBC W AUTO DIFFERENTIAL(Performed 08/02/2024) * CALCIUM BLOOD(Performed 08/01/2024) * MAGNESIUM BLOOD(Performed 08/01/2024) * RENAL FUNCTION PANEL(Performed 08/01/2024) * CBC W AUTO DIFFERENTIAL(Performed 08/01/2024) * HGB HCT PANEL(Performed 07/31/2024) * TRANSFUSE RED BLOOD CELL LEUKOREDUCED UNIT(S)(Performed 07/31/2024) * PREPARE RBC LEUKOREDUCED UNIT(Performed 07/31/2024) * MAGNESIUM BLOOD(Performed 07/31/2024) * RENAL FUNCTION PANEL(Performed 07/31/2024) * CBC W AUTO DIFFERENTIAL(Performed 07/31/2024) * VITAMIN D 25-HYDROXY(Performed 07/31/2024) * VITAMIN B12(Performed 07/31/2024) * FOLATE(Performed 07/31/2024) * IRON + TRANSFERRIN PANEL(Performed 07/31/2024) * HGB HCT PANEL(Performed 07/30/2024) * TRANSFUSE RED BLOOD CELL LEUKOREDUCED UNIT(S)(Performed 07/30/2024) * PREPARE RBC LEUKOREDUCED UNIT(Performed 07/30/2024) * BLOOD TYPE VERIFICATION(Performed 07/30/2024) * CBC W/O DIFFERENTIAL(Performed 07/30/2024) * PT-INR(Performed 07/30/2024) * BASIC METABOLIC PANEL (CALCIUM TOTAL)(Performed 07/30/2024) * HGB HCT PANEL(Performed 07/29/2024) * US ABDOMEN LIMITED(Performed 07/29/2024) Performed for Gastrointestinal hemorrhage with melena * HGB HCT PANEL(Performed 07/29/2024) * PT-INR(Performed 07/29/2024) * SC ED EGD FLEX TRANSORAL DX(Performed 07/29/2024) * EGD(Performed 07/29/2024) * CBC W/O DIFFERENTIAL(Performed 07/29/2024) * COMPREHENSIVE METABOLIC PANEL(Performed 07/29/2024) * MAGNESIUM BLOOD(Performed 07/29/2024) * PHOSPHORUS BLOOD(Performed 07/29/2024) * CULTURE BLOOD(Performed 07/28/2024) * CULTURE BLOOD(Performed 07/28/2024) * TYPE + SCREEN PANEL(Performed 07/28/2024) * COMPREHENSIVE METABOLIC PANEL(Performed 07/28/2024) * CBC W/O DIFFERENTIAL(Performed 07/28/2024) Results * CARDIAC RHYTHM STRIP ORDER (08/08/2024 11:03 PM ROUTE DRIVER) Narrative 08/08/2024 11:03 PM ROUTE DRIVER Ordered by an unspecified provider. Scanned Document CARDIAC SERVICES ORD ERABLES * APHERESIS/TRANSFUSION ORDER (08/08/2024 11:03 PM ROUTE DRIVER) Narrative 08/08/2024 11:03 PM ROUTE DRIVER Ordered by an unspecified provider. Scanned Document NURSING - VITAL SIGN S AND ASSESSMENT * B-TYPE NATRIURETIC PEPTIDE (08/07/2024 1:59 AM ROUTE DRIVER) [facility] BNP 35 <=100 pg/mL 08/07/2024 2:52 AM ROUTE DRIVER [facility] Blood BLOOD SPECIMEN / Unknown Venipuncture / Unknown 08/07/2024 1:59 AM ROUTE DRIVER 08/07/2024 2:19 AM ROUTE DRIVER Chika Chew MD LAB - CHEMISTRY AIDEN KEVIN [facility] [address] [place] [address] * (ABNORMAL) COMPREHENSIVE METABOLIC PANEL (08/07/2024 1:59 AM ROUTE DRIVER) Only the most recent of6 resultswithin the time period is included. [facility] Glucose 97 70 - 99 mg/dL 08/07/2024 2:55 AM ROUTE DRIVER [facility] Sodium 136 136 - 145 mmol/L 08/07/2024 2:55 AM ROUTE DRIVER [facility] Potassium 3.9 3.5 - 5.1 mmol/L 08/07/2024 2:55 AM [facility] Chloride 104 98 - 107 mmol/L 08/07/2024 2:55 AM ROUTE DRIVER [facility] CO2 23 22 - 29 mmol/L 08/07/2024 2:55 AM ROUTE DRIVER [facility] Calcium 6.8(L) 8.4 - 10.4 mg/dL 08/07/2024 2:55 AM ROUTE DRIVER [facility] Anion Gap 9 6 - 16 mmol/L 08/07/2024 2:55 AM [facility] BUN 9 7 - 26 mg/dL 08/07/2024 2:55 AM [facility] Creatinine 0.95 0.57 - 1.11 mg/dL 08/07/2024 2:55 AM [facility] Alkaline Phosphatase 91 40 - 150 U/L 08/07/2024 2:55 AM [facility] ALT 21 0 - 55 U/L 08/07/2024 2:55 AM [facility] AST 28 5 - 34 U/L 08/07/2024 2:55 AM [facility] Protein Total 4.9(L) 6.4 - 8.3 gm/dL 08/07/2024 2:55 AM [facility] Albumin 2.1(L) 3.4 - 5.0 gm/dL 08/07/2024 2:55 AM [facility] Bilirubin Total 0.6 0.2 - 1.2 mg/dL 08/07/2024 2:55 AM [facility] eGFR by CKD-EPI 66(L) >=90 mL/min/1.7 3 m2 08/07/2024 2:55 AM [facility] Blood BLOOD SPECIMEN / Unknown Venipuncture / Unknown 08/07/2024 1:59 AM ROUTE DRIVER 08/07/2024 2:19 AM ROUTE DRIVER Chika Chew MD [facility] Organization Address City/State/ZIP Co de Phone Number [facility] [address] [place] [id number] * VAS Bilateral Venous Duplex Le (08/06/2024 2:30 PM ROUTE DRIVER) Anatomical Region Laterality Modality Lower Extremity Ultrasound 08/06/2024 1:50 PM ROUTE DRIVER Narrative Procedure Note Jorge Barakat MD - 08/07/[address] [address] Lower Extremity Venous Ultrasound Report Pat.Name: SARAHY RODRIGUEZ Pat.ID: [id number] .Date: 08/06/2024 Exam Time: 1:50:00 PM Study Type:LE Venous Age: 1 1960,64Y Sex: FEMALE Sonogrphr: Binh Eldridge RVT Pat. Stat.:Inpatient Room: [facility] ICD - 9: R60.0 CPT - 4: 72627 Reason for Study: Bilateral leg edema History / Clinical: CKD, Liver cirrhosis Procedures: Lower Extremity Venous - Bilateral Race: 1 Visit ID: [id number] ++++++++++++++++++++++++++++++++++++ SUMMARY: ++++++++++++++++++++++++++++++++++++ There is no evidence [...] METABOLIC PANEL (CALCIUM TOTAL) (08/06/2024 6:07 AM ROUTE DRIVER) Only the most recent of2 resultswithin the time period is included. [facility] Glucose 87 70 - 99 mg/dL 08/06/2024 8:46 AM ROUTE DRIVER [facility] Sodium 137 136 - 145 mmol/L 08/06/2024 8:46 AM ROUTE DRIVER [facility] Potassium 3.0(L) 3.5 - 5.1 mmol/L 08/06/2024 8:46 AM [facility] Chloride 103 98 - 107 mmol/L 08/06/2024 8:46 AM [facility] CO2 27 22 - 29 mmol/L 08/06/2024 8:46 AM [facility] Calcium 6.7(L) 8.4 - 10.4 mg/dL 08/06/2024 8:46 AM [facility] Anion Gap 7 6 - 16 mmol/L 08/06/2024 8:46 AM [facility] BUN 7 7 - 26 mg/dL 08/06/2024 8:46 AM [facility] Creatinine 0.81 0.57 - 1.11 mg/dL 08/06/2024 8:46 AM [facility] eGFR by CKD-EPI 81(L) >=90 mL/min/1.7 3 m2 08/06/2024 8:46 AM [facility] Blood BLOOD SPECIMEN / Unknown Venipuncture / Unknown 08/06/2024 6:07 AM ROUTE DRIVER 08/06/2024 6:11 AM ROUTE DRIVER Chika Chew MD LAB - CHEMISTRY ORDKyle KEVIN Performing Organization Address City/[facility]/ZIP Co de Phone Number [facility] [address] [place] [address] * PHOSPHORUS BLOOD (08/06/2024 6:07 AM ROUTE DRIVER) Only the most recent of3 resultswithin the time period is included. Phosphorus 3.7 2.5 - 4.5 mg/dL 08/06/2024 6:27 AM [facility] Blood BLOOD SPECIMEN / Unknown Venipuncture / Unknown 08/06/2024 6:07 AM ROUTE DRIVER 08/06/2024 6:11 AM ROUTE DRIVER Miguel Angel Mccain MD LAB - CHEMISTRY ORDKyle KEVIN Performing Organization Address [facility]/ZIP Co de Phone Number [facility] [address] [place] [address] * MAGNESIUM BLOOD (08/06/2024 6:07 AM ROUTE DRIVER) Only the most recent of8 resultswithin the time period is included. Magnesium 1.7 1.6 - 2.6 mg/dL 08/06/2024 8:43 AM ROUTE DRIVER [facility] Blood BLOOD SPECIMEN / Unknown Venipuncture / Unknown 08/06/2024 6:07 AM ROUTE DRIVER 08/06/2024 6:11 AM ROUTE DRIVER Chika Chew MD LAB - CHEMISTRY AIDEN KEVIN [facility] [address] [place] [address] * MRI Lumbar Spine Wo Contrast (08/05/2024 9:48 AM ROUTE DRIVER) Anatomical Region Laterality Modality Spine Magnetic Resonan ce 08/05/2024 9:51 AM ROUTE DRIVER Impressions 08/05/2024 11:53 AM ROUTE DRIVER IMPRESSION: Multilevel degenerative disc and joint disease. Mild foraminal narrowing at L3-L4 and L4-L5 levels. No canal narrowing seen. Minimal superior endplate compression at T12, associated with mild marrow edema, less than 25% loss of vertical height. Edited by Tressa Phillips on 08/05/2024 10:17 AM > Interpreting Provider: Stefani Zepeda MD on 08/05/2024 11:53 AM Narrative 08/05/2024 11:53 AM ROUTE DRIVER PROCEDURE: MRI LUMBAR SPINE WO CONTRAST DATE/TIME [...] CBC W AUTO DIFFERENTIAL (08/05/2024 6:53 AM ROUTE DRIVER) Only the most recent of6 resultswithin the time period is included. WBC 6.8 4.0 - 10.7 x10E9/L 08/05/2024 7:01 AM [facility] RBC Count 2.80(L) 3.90 - 5.20 x10E12/L 08/05/2024 7:01 AM [facility] Hemoglobin 8.6(L) 11.9 - 15.8 g/dL 08/05/2024 7:01 AM [facility] Hematocrit 26.3(L) 34.8 - 46.1 % 08/05/2024 7:01 AM [facility] MCV 93.9 80.0 - 98.0 fL 08/05/2024 7:01 AM [facility] MCH 30.7 26.7 - 33.6 pg 08/05/2024 7:01 AM [facility] MCHC 32.7 31.7 - 36.3 g/dL 08/05/2024 7:01 AM [facility] RDW-CV 17.6(H) 11.3 - 14.8 % 08/05/2024 7:01 AM [facility] Platelet Count 111(L) 150 - 420 x10E9/L 08/05/2024 7:01 AM [facility] MPV 10.1 7.8 - 11.4 fL 08/05/2024 7:01 AM [facility] Neutrophil % 70.0 41.0 - 74.0 % 08/05/2024 7:01 AM [facility] Lymphocyte % 13.8(L) 17.0 - 47.0 % 08/05/2024 7:01 AM [facility] Monocyte % 11.7(H) 3.0 - 11.0 % 08/05/2024 7:01 AM [facility] Eosinophil % 3.7 0.0 - 7.0 % 08/05/2024 7:01 AM [facility] Basophil % 0.4 0.0 - 1.6 % 08/05/2024 7:01 AM [facility] Immature Granulocytes % 0.4 0.0 - 1.0 % 08/05/2024 7:01 AM [facility] Neutrophil Absolute 4.76 1.60 - 7.50 x10E9/L 08/05/2024 7:01 AM [facility] Lymphocyte Absolute 0.94(L) 1.00 - 4.40 x10E9/L 08/05/2024 7:01 AM [facility] Monocyte Absolute 0.80 0.15 - 1.00 x10E9/L 08/05/2024 7:01 AM [facility] Eosinophil Absolute 0.25 0.00 - 0.60 x10E9/L 08/05/2024 7:01 AM [facility] Basophil Absolute 0.03 0.00 - 0.13 x10E9/L 08/05/2024 7:01 AM [facility] Blood BLOOD SPECIMEN / Unknown Venipuncture / Unknown 08/05/2024 6:53 AM ROUTE DRIVER 08/05/2024 6:57 AM [facility] Miguel Angel Mccain MD LAB - HEMATOLOGY ORD ERABLES Performing Organization Address City/State/[place] Co de Phone Number [facility] [address] [place] [address] * URIC ACID URINE TIMED (08/04/2024 1:55 PM ROUTE DRIVER) Pathologist [facility] Uric Acid 24 Hour Urine 205.0 142.3 - 713.2 mg/24 hr 08/06/2024 11:10 AM ROUTE DRIVER [facility] ([facility]) Uric Acid Urine 20.5 Not Estab. mg/dL 08/06/2024 11:10 AM [facility] ([facility]) Urine TIMED URINE SPECIMEN / Unknown Timed Urine Volume Measurement / Unknown 08/04/2024 1:55 PM ROUTE DRIVER 08/04/2024 2:02 PM ROUTE DRIVER Narrative [facility] ([facility]) - 08/06/2024 11:10 AM ROUTE DRIVER Performed at: 01 - [facility] [address] [place], [place] [id number] Airframe Design Engineer: El Sood PhD, Phone: [phone] Pete Olmos MD LAB - URINE CHEMISTR Y ORDERABLES Performing Organization Address City/[facility]/[place] Co de Phone Number [facility] ([facility]) [address] [place] [address] * PROTEIN URINE TIMED QUANTITATIVE (08/04/2024 1:55 PM ROUTE DRIVER) Volume 24 Hour Urine 1,000 mL 08/04/2024 2:25 PM ROUTE DRIVER [facility] Collection Time Hours 24 hrs 08/04/2024 2:25 PM ROUTE DRIVER [facility] Protein 24 Hour Urine 72 <300 mg/24hr 08/04/2024 2:25 PM ROUTE DRIVER [facility] Protein Urine 7.2 <11.9 mg/dL 08/04/2024 2:25 PM ROUTE DRIVER [facility] Urine TIMED URINE SPECIMEN / Unknown Timed Urine Volume Measurement / Unknown 08/04/2024 1:55 PM ROUTE DRIVER 08/04/2024 2:02 PM ROUTE DRIVER Pete Olmos MD LAB - URINE CHEMISTR Y ORDERABLES Performing Organization Address City/[facility]/ZIP Co de Phone Number [facility] [address] [place] [phone] * CREATININE CLEARANCE URINE TIMED + BLOOD (08/04/2024 1:55 PM ROUTE DRIVER) Volume 24 Hour Urine 1,000 mL 08/04/2024 2:28 PM ROUTE DRIVER [facility] Collection Time Hours 24 hrs 08/04/2024 2:28 PM ROUTE DRIVER [facility] Height Inches 65 inches 08/04/2024 2:28 PM ROUTE DRIVER [facility] Weight in Pounds 160 pounds 08/04/2024 2:28 PM ROUTE DRIVER [facility] Surface Area 1.80 08/04/2024 2:28 PM ROUTE DRIVER [facility] Creatinine 0.81 0.57 - 1.11 mg/dL 08/04/2024 2:28 PM [facility] Creatinine Urine 82.74 mg/dL 08/04/2024 2:28 PM [facility] Creatinine 24 Hour Urine 827 710 - 1,650 mg/24hr 08/04/2024 2:28 PM [facility] Creatinine Clearance 68 66 - 165 mL/min/1.73 m2 08/04/2024 2:28 PM [facility] Urine TIMED URINE SPECIMEN / Unknown Timed Urine Volume Measurement / Unknown 08/04/2024 1:55 PM ROUTE DRIVER 08/04/2024 2:02 PM ROUTE DRIVER Pete Olmos MD LAB - URINE CHEMISTR Y ORDERABLES [facility] [address] [place], [place] [id number] * (ABNORMAL) CALCIUM URINE TIMED (08/04/2024 1:55 PM ROUTE DRIVER) Pathologist [facility] Calcium Random Urine <2.0 Not Established mg/dL 08/04/2024 7:00 PM [facility] Collection Time Timed Urine 24 Hrs 08/04/2024 7:00 PM [facility] Calcium 24 Hour Urine <20(L) 50 - 300 mg/24 hrs 08/04/2024 7:00 PM [facility] Comment:Unable to calculate excretion rate because the analyte concentration is outside the instrument measuring range. Volume Timed Urine 1,000 mL 08/04/2024 7:00 PM [facility] Urine TIMED URINE SPECIMEN / Unknown Timed Urine Volume Measurement / Unknown 08/04/2024 1:55 PM ROUTE DRIVER 08/04/2024 2:02 PM ROUTE DRIVER Pete Olmos MD LAB - URINE CHEMISTR Y ORDERABLES [facility] [address] [place] [address], [facility] [phone] * (ABNORMAL) URINALYSIS REFLEX TO MICROSCOPIC NO CULTURE (08/03/2024 12:49 PM ROUTE DRIVER) Color UA Yellow Yellow, Straw 08/03/2024 1:30 PM ROUTE DRIVER [facility] Clarity UA Clear Clear 08/03/2024 1:30 PM ROUTE DRIVER [facility] Glucose UA Normal Normal 08/03/2024 1:30 PM ROUTE DRIVER [facility] Bilirubin UA Negative Negative 08/03/2024 1:30 PM ROUTE DRIVER [facility] Ketone UA Negative Negative 08/03/2024 1:30 PM ROUTE DRIVER [facility] Specific [place] UA 1.013 1.005 - 1.030 08/03/2024 1:30 PM R[address]TE DRIVER [facility] Blood UA Negative Negative 08/03/2024 1:30 PM R[address]TE DRIVER [facility] pH UA 7.5 5.0 - 9.0 pH 08/03/2024 1:30 PM R[address]TE DRIVER [facility] Protein UA Negative Negative 08/03/2024 1:30 PM R[address]TE DRIVER [facility] Urobilinogen UA Normal Normal mg/dL 08/03/2024 1:30 PM R[address]TE DRIVER [facility] Nitrite UA Negative Negative 08/03/2024 1:30 PM R[address]TE DRIVER [facility] Leukocyte UA 75 JAQUI/uL(A) Negative 08/03/2024 1:30 PM R[address]TE DRIVER [facility] RBC UA 0-2 0 - 5 # /hpf 08/03/2024 1:30 PM R[address] DRIVER [facility] WBC UA 6-10(A) 0 - 5 # /hpf 08/03/2024 1:30 PM [address] DRIVER [facility] Bacteria UA Trace(A) None Seen 08/03/2024 1:30 PM [address] DRIVER [facility] Squamous Epithelial Cells 0-2 0 - 5 /hpf 08/03/2024 1:30 PM R[address]TE DRIVER [facility] Budding Yeast Few(A) None seen /hpf 08/03/2024 1:30 PM ROUTE DRIVER [facility] Urine URINE SPECIMEN OBTAINED BY CLEAN CATCH PROCEDURE / Unknown Collection / Unknown 08/03/2024 12:49 PM ROUTE DRIVER 08/03/2024 12:53 PM ROUTE DRIVER Narrative [facility] - 08/03/2024 1:30 PM ROUTE DRIVER Pete Olmos MD LAB - URINALYSIS ORD ERABLES [facility] [id number] [place] [address] * XR Lumbar Spine 2 or 3Vw (08/02/2024 2:10 PM ROUTE DRIVER) Anatomical Region Laterality Modality Spine Computed Radiogr aphy 08/02/2024 2:26 PM ROUTE DRIVER Narrative 08/02/2024 2:29 PM ROUTE DRIVER EXAM: XR LUMBAR SPINE 2 OR 3VW [...] PTH INTACT W/O CALCIUM (08/02/2024 3:19 AM ROUTE DRIVER) PTH Intact 275.2(H) 8.7 - 77.1 pg/mL 08/02/2024 4:05 AM ROUTE DRIVER [facility] Blood BLOOD SPECIMEN / Unknown Venipuncture / Unknown 08/02/2024 3:19 AM ROUTE DRIVER 08/02/2024 3:30 AM ROUTE DRIVER Miguel Angel Mccain MD LAB - CHEMISTRY [facility]EN [facility] Organization Address City/State/ZIP Co de Phone Number [facility] [address] [place] [address] * (ABNORMAL) RENAL FUNCTION PANEL (08/02/2024 3:19 AM ROUTE DRIVER) Only the most recent of3 resultswithin the time period is included. Glucose 112(H) 70 - 99 mg/dL 08/02/2024 4:06 AM [facility] Sodium 140 136 - 145 mmol/L 08/02/2024 4:06 AM [facility] Potassium 3.1(L) 3.5 - 5.1 mmol/L 08/02/2024 4:06 AM [facility] Chloride 103 98 - 107 mmol/L 08/02/2024 4:06 AM [facility] CO2 28 22 - 29 mmol/L 08/02/2024 4:06 AM [facility] Calcium 5.8(LL) 8.4 - 10.4 mg/dL 08/02/2024 4:06 AM [facility] Anion Gap 9 6 - 16 mmol/L 08/02/2024 4:06 AM [facility] BUN 4(L) 7 - 26 mg/dL 08/02/2024 4:06 AM [facility] Creatinine 0.75 0.57 - 1.11 mg/dL 08/02/2024 4:06 AM [facility] Albumin 2.4(L) 3.4 - 5.0 gm/dL 08/02/2024 4:06 AM [facility] Phosphorus 2.4(L) 2.5 - 4.5 mg/dL 08/02/2024 4:06 AM [facility] eGFR by CKD-EPI 88(L) >=90 mL/min/1.7 3 m2 08/02/2024 4:06 AM [facility] Blood BLOOD SPECIMEN / Unknown Venipuncture / Unknown 08/02/2024 3:19 AM ROUTE DRIVER 08/02/2024 3:30 AM [facility] Miguel Angel Mccain MD LAB - CHEMISTRY AIDEN KEVIN [facility] [address] [place] [address] * (ABNORMAL) CALCIUM BLOOD (08/01/2024 3:41 AM [facility]) Calcium 5.4(LL) 8.4 - 10.4 mg/dL 08/01/2024 4:21 AM ROUTE DRIVER [facility] Blood BLOOD SPECIMEN / Unknown Venipuncture / Unknown 08/01/2024 3:41 AM ROUTE DRIVER 08/01/2024 3:52 AM ROUTE DRIVER Peewee Esquivel DO LAB - CHEMISTRY ORDKyle KEVIN Performing Organization Address [facility] [place] de Phone Number [facility] [id number] [place] [address] [phone] * (ABNORMAL) HGB HCT PANEL (07/31/2024 7:39 AM ROUTE DRIVER) Only the most recent of4 resultswithin the time period is included. Pathologist [facility] Hemoglobin 8.3(L) 11.9 - 15.8 g/dL 07/31/2024 7:47 AM ROUTE DRIVER [facility] Hematocrit 23.7(L) 34.8 - 46.1 % 07/31/2024 7:47 AM ROUTE DRIVER [facility] Blood BLOOD SPECIMEN / Unknown Venipuncture / Unknown 07/31/2024 7:39 AM ROUTE DRIVER 07/31/2024 7:43 AM ROUTE DRIVER Cruz Whitfield MD LAB - HEMATOLOGY OR DERABLES Performing Organization Address [facility]/[facility] de Phone Number [facility] [id number] [place] [address] [phone] * TRANSFUSE RED BLOOD CELL LEUKOREDUCED UNIT(S) (07/31/2024 5:59 AM ROUTE DRIVER) Peewee Esquivel DO NURSING - BLOOD PROD TRANSFUSION * PREPARE (CROSSMATCH) RBC UNIT(S), 1 Units (07/31/2024 3:35 AM ROUTE DRIVER) Only the most recent of2 resultswithin the time period is included. Pathologist [facility] Unit Description AS1 LR PRBC [facility] ABO B [facility] Unit Rh POS DP BLOOD BANK Product Number R02 DP BLOOD BANK Unit Donor # [id number] DPH C BLOOD BANK Unit Status transfused DP BL OOD BANK Product Code [id number] [facility] Blood Type Barcode 7300 [facility] Expiration Date [id number] D [facility]YCHIATRIC BLOOD BANK Blood Bank BLOOD SPECIMEN / Unknown 07/28/2024 8:53 PM ROUTE DRIVER Miguel Angel Mccain MD LAB - BLOOD BANK ORD ERABLES Performing Organization Address [facility] [place]/[facility] Co de Phone Number [facility] [id number] [place], [place] [id number] [phone] * (ABNORMAL) VITAMIN D 25-HYDROXY (07/31/2024 2:15 AM ROUTE DRIVER) Pathologist [facility] Vitamin D, 25 Hydroxy 12.3(L) 30 - 80 ng/mL 07/31/2024 3:23 AM ROUTE DRIVER [facility] Blood BLOOD SPECIMEN / Unknown Venipuncture / Unknown 07/31/2024 2:15 AM ROUTE DRIVER 07/31/2024 2:22 AM ROUTE DRIVER Narrative [facility] - 07/31/2024 3:23 AM ROUTE DRIVER Vitamin D Status: Deficiency <20 ng/mL Insufficiency 20-30 ng/mL Sufficiency 30-100 ng/mL Toxicity >100 ng/mL Miguel Angel Mccain MD LAB - CHEMISTRY AIDEN KEVIN Performing Organization Address [facility] [place]/[facility] Co de Phone Number [facility] [address] [place] [address] * (ABNORMAL) FOLATE (07/31/2024 2:15 AM ROUTE DRIVER) Pathologist [facility] Folate 5.2(L) 7.0 - 31.4 ng/mL 07/31/2024 3:23 AM ROUTE DRIVER [facility] Blood BLOOD SPECIMEN / Unknown Venipuncture / Unknown 07/31/2024 2:15 AM ROUTE DRIVER 07/31/2024 2:22 AM ROUTE DRIVER Miguel Angel Mccain MD LAB - CHEMISTRY AIDEN KEVIN Performing Organization Address [facility]/[facility] Co de Phone Number [facility] [address] [place] [address] [phone] * (ABNORMAL) VITAMIN B12 (07/31/2024 2:15 AM ROUTE DRIVER) [facility] Vitamin B12 >2,000(H) 213 - 816 pg/mL 07/31/2024 3:27 AM ROUTE DRIVER [facility] Blood BLOOD SPECIMEN / Unknown Venipuncture / Unknown 07/31/2024 2:15 AM ROUTE DRIVER 07/31/2024 2:22 AM ROUTE DRIVER Miguel Angel Mccain MD LAB - CHEMISTRY ORDKyle KEVIN Performing Organization Address [facility] [place]/[facility] de Phone Number [facility] [id number] [place] [phone] * (ABNORMAL) IRON + TRANSFERRIN PANEL (07/31/2024 2:15 AM ROUTE DRIVER) Iron 84 40 - 150 ug/dL 07/31/2024 2:55 AM ROUTE DRIVER [facility] Transferrin 123(L) 174 - 382 mg/dL 07/31/2024 2:55 AM ROUTE DRIVER [facility] TIBC Calculated 154(L) 240 - 450 ug/dL 07/31/2024 2:55 AM ROUTE DRIVER [facility] Iron Saturation % 55(H) 20 - 50 % 07/31/2024 2:55 AM ROUTE DRIVER [facility] Blood BLOOD SPECIMEN / Unknown Venipuncture / Unknown 07/31/2024 2:15 AM ROUTE DRIVER 07/31/2024 2:22 AM ROUTE DRIVER Miguel Angel Mccain MD LAB - CHEMISTRY ORDKyle KEVIN Performing Organization Address [facility] de Phone Number [facility] [id number] [place] [phone] * TRANSFUSE RED BLOOD CELL LEUKOREDUCED UNIT(S) (07/30/2024 7:41 AM ROUTE DRIVER) Peewee Esquivel DO NURSING - BLOOD PROD TRANSFUSION * BLOOD TYPE VERIFICATION (07/30/2024 2:06 AM ROUTE DRIVER) ABO Rh B POS 07/30/2024 4:2 5 AM ROUTE DRIVER [facility] Blood Bank BLOOD SPECIMEN / Unknown Venipuncture / Unknown 07/30/2024 2:06 AM ROUTE DRIVER 07/30/2024 3:11 AM ROUTE DRIVER Yi Grier MD LAB - BLOOD BANK ORD ERABLES Performing Organization Address [facility] [place]/[facility] Co de Phone Number [facility] [address] [phone] * (ABNORMAL) PT-INR (07/30/2024 2:06 AM ROUTE DRIVER) Only the most recent of2 resultswithin the time period is included. PT 19.8(H) 12.1 - 14.8 sec 07/30/2024 3:12 AM ROUTE DRIVER [facility] Comment:This result represen ts a significant difference from this patient's most recent previous value. Clinical correlation is therefore recommended. INR 1.7(H) 0.9 - 1.1 07/30/2024 3:12 AM ROUTE DRIVER [facility] Blood BLOOD SPECIMEN / Unknown Venipuncture / Unknown 07/30/2024 2:06 AM ROUTE DRIVER 07/30/2024 2:27 AM ROUTE DRIVER Narrative [facility] - 07/30/2024 3:12 AM ROUTE DRIVER Conventional Warfarin Anticoagulant Therapy: INR Reference Range: 2.0-3.0 Intensive Warfarin Anticoagulant Therapy: INR Reference Range: 2.5-3.5 Yi Grier MD LAB - COAGULATION OR DERABLES Performing Organization Address [facility]/[facility] Co de Phone Number [facility] [address] [place] [address] * (ABNORMAL) CBC W/O DIFFERENTIAL (07/30/2024 2:06 AM ROUTE DRIVER) Only the most recent of3 resultswithin the time period is included. WBC 12.5(H) 4.0 - 10.7 x10E9/L 07/30/2024 2:30 AM ROUTE DRIVER [facility] RBC Count 2.06(L) 3.90 - 5.20 x10E12/L 07/30/2024 2:30 AM ROUTE DRIVER [facility] Hemoglobin 6.4(L) 11.9 - 15.8 g/dL 07/30/2024 2:30 AM ROUTE DRIVER [facility] Hematocrit 18.7(L) 34.8 - 46.1 % 07/30/2024 2:30 AM ROUTE DRIVER [facility] MCV 90.8 80.0 - 98.0 fL 07/30/2024 2:30 AM ROUTE DRIVER [facility] MCH 31.1 26.7 - 33.6 pg 07/30/2024 2:30 AM [facility] MCHC 34.2 31.7 - 36.3 g/dL 07/30/2024 2:30 AM ROUTE DRIVER [facility] RDW-CV 18.1(H) 11.3 - 14.8 % 07/30/2024 2:30 AM ROUTE DRIVER [facility] Platelet Count 161 150 - 420 x10E9/L 07/30/2024 2:30 AM [facility] MPV 10.0 7.8 - 11.4 fL 07/30/2024 2:30 AM [facility] Blood BLOOD SPECIMEN / Unknown Venipuncture / Unknown 07/30/2024 2:06 AM ROUTE DRIVER 07/30/2024 2:27 AM ROUTE DRIVER Yi Grier MD LAB - HEMATOLOGY ORD ERABLES [facility] [address] [place] [phone] * US ABDOMEN LIMITED (RUQ) (07/29/2024 2:29 PM ROUTE DRIVER) Anatomical Region Laterality Modality Abdomen Ultrasound 07/29/2024 3:34 PM ROUTE DRIVER Impressions 07/30/2024 10:05 AM ROUTE DRIVER IMPRESSION: 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 Hepatic steatosis with a mass right lobe most consistent with focal fatty sparing. Lack of ability to compare to the outside images result in decreased sensitivity. > Interpreting Provider: Kameron Sprague MD on 07/30/2024 10:05 AM Narrative 07/30/2024 10:05 AM ROUTE DRIVER PROCEDURE: US ABDOMEN LIMITED, DATE/TIME OF EXAM: 07/29/2024 2:29 PM, LOCATION [facility] INDICATION: K92.1: Melena ADDITIONAL CLINICAL INFORMATION: Ordering [...] DATE/TIME OF EXAM: 07/29/2024 2:29 PM, LOCATION [facility] INDICATION: K92.1: Melena ADDITIONAL CLINICAL INFORMATION: Ordering [...] US ORDERABLES * EGD (07/29/2024 6:57 AM ROUTE DRIVER) Report Endoscopy POC _ Patient Name: Sarahy Rodriguez Procedure Date: 07/29/2024 6:57 AM Date of : 1960 Admit Type: Inpatient Age: 64 Gender: Female Attending MD: Cathleen Estrada MD, [id number] _ Procedure: Upper GI endoscopy Indications: Melena [...] GI notes Procedure Code(s): --- Professional --- 87624, Esophagogastroduoden oscopy, flexible, transoral; diagnostic, including collection of specimen(s) by brushing or washing, when performed (separate procedure) --- Technical --- 93807, Esophagogastroduoden oscopy, flexible, transoral; diagnostic, including collection [...] K92.1, Melena (includes Hematochezia) CPT copyright 2020 [employer]. All rights reserved. The codes documented in this report are preliminary and upon forensic specialist review may be revised to meet current compliance requirements. Cathleen Estrada MD 07/29/2024 9:00:40 AM Number of Addenda: 0 Note Initiated On: 07/29/2024 6:57 AM [facility] 07/29/2024 6:57 AM ROUTE DRIVER Narrative Procedure Note Cathleen Estrada MD - [...] Ania Josue MD GI PROCEDURE ORDERAB LES [facility] [place] [place] [address] * CULTURE BLOOD (07/28/2024 10:03 PM ROUTE DRIVER) Only the most recent of2 resultswithin the time period is included. Culture No growth day 5 LINO 08/03/2024 1:30 AM ROUTE DRIVER [facility] Blood PERIPHERAL BLOOD / Unknown Venipuncture / Unknown 07/28/2024 10:03 PM ROUTE DRIVER 07/28/2024 10:07 PM ROUTE DRIVER Fabio Santos MD LAB - MICROBIOLOGY O RDERABLES [facility] [address] [place] [address], [facility] [phone] * TYPE + SCREEN PANEL (07/28/2024 6:52 PM ROUTE DRIVER) ABO Rh B POS 07/28/2024 9:52 PM ROUTE DRIVER [facility] Comment:No history; collect retype. Antibody Screen NEG 9:52 PM ROUTE DRIVER [facility] Blood Bank BLOOD SPECIMEN / Unknown Venipuncture / Unknown 07/28/2024 6:52 PM ROUTE DRIVER 07/28/2024 8:53 PM ROUTE DRIVER Fabio Santos MD LAB - BLOOD BANK ORD ERABLES Performing Organization Address City/[facility]/ZIP Co de Phone Number [facility] [address] [phone] Care Teams Care Director Rn Relationship Specialty Start Date End Date Priyank Zepeda MD [address] [place] [address] PCP - General 02/23/22
--- NOTE | 2024-08-13 19:37 | ECG_ITS ---
Test Date: 2024-08-13 22:54:17 Measurements Intervals [place] Rate: 68 P: 46 FL: 162 QRS: -43 QRSD: 121 T: -19 QT: 434 QTc: 462 Interpretive Statements SINUS RHYTHM LEFT AXIS DEVIATION [QRS AXIS < -30] Compared to ECG 11/16/2023 19:39:05 NO SIGNIFICANT CHANGES Electronically Signed On 08-14-2024 13:15:04 CDT by Isidoro Joy M.D.
--- NOTE | 2024-08-13 19:37 | ED_ITS ---
HPI - General Adult General Chief complaint: Recheck/Abnormal Lab/Rx Stated complaint: edema Time Seen by Provider: 08/13/24 19:37 Source: patient Mode of arrival: ambulatory Limitations: no limitations History of Present Illness HPI narrative: PATIENT IS 64 YEARS OLD WHITE FEMALE, PAST MEDICAL HISTORY OF BRADYCARDIA, HYPERTENSION, HYPERPARATHYROIDISM, HYPOTHYROIDISM, RENAL FAILURE, GASTRIC BYPASS, PARATHYROIDECTOMY, RIGHT HEMICOLECTOMY WITH ILEOCOLIC ANASTOMOSIS, APPENDECTOMY, CHOLECYSTECTOMY REFERRED TO THE EMERGENCY ROOM BY HER FAMILY PHYSICIAN BECAUSE OF ELECTROLYTE IMBALANCE. PATIENT GOT DISCHARGE FROM [facility] ON August AFTER 11 DAYS HOSPITALIZATION FOR RECTAL BLEED. PATIENT IS TELLING ME THAT SHE HAD SWELLING LEGS WHILE WAS IN THE HOSPITAL AND STARTED ON LASIX TWICE A DAY. PATIENT REPORT THAT SHE USED TO BE ON POTASSIUM WHICH DISCONTINUED WHILE WAS IN THE HOSPITAL. PATIENT WHEN SEE HER FAMILY PHYSICIAN YESTERDAY FOR FOLLOW-UP AFTER BEING DISCHARGED FROM [facility] ON . PATIENT WAS ASYMPTOMATIC AT THAT TIME. PATIENT RECEIVED A PHONE CALL TODAY TO GO TO THE EMERGENCY ROOM IMMEDIATELY BECAUSE OF ELECTROLYTE IMBALANCE. PATIENT STILL ASYMPTOMATIC EXCEPT CHRONIC DIARRHEA WHICH IS NOT DIFFERENT THAN BEFORE. PATIENT DENIES ANY FEVER OR CHILLS OR NAUSEA OR VOMITING CHEST PAIN OR SHORTNESS OF BREATH. Related Data Home Medications ?Medication ?Instructions ?Recorded ?Confirmed ?Last Taken ?Type amitriptyline 10 mg tablet 10 mg PO BID 10/24/19 02/27/24 02/27/24 History fluoxetine 40 mg capsule 40 mg PO BID 10/24/19 02/27/24 02/27/24 History metoprolol succinate 50 mg 50 mg PO DAILY 10/24/19 02/27/24 02/27/24 History tablet,extended release 24 hr potassium chloride 20 mEq 20 meq PO BID 10/24/19 02/27/24 02/27/24 History tablet,extended release(part/cryst) cyanocobalamin (vitamin B-12) 2,500 mcg PO DAILY 02/15/22 02/27/24 02/27/24 History beta carotene 30 mg capsule 30 mg PO DAILY 02/25/22 02/27/24 02/27/24 History sodium bicarbonate 650 mg tablet See Rx Instructions .Route .COMPLEX 07/15/22 02/27/24 02/27/24 History calcium citrate 250 mg PO TID 09/27/23 02/27/24 02/27/24 History ergocalciferol (vitamin D2) 1,250 1,250 mcg PO WEEKLY 09/27/23 02/27/24 02/26/24 History mcg (50,000 unit) capsule (Vitamin D2) calcitriol 0.5 mcg capsule See Rx Instructions .Route .COMPLEX 12/25/23 02/27/24 02/27/24 History calcium carbonate (Tums) 200 mg PO BID 12/25/23 02/27/24 02/27/24 History pantoprazole 40 mg tablet,delayed 40 mg PO BID 12/25/23 02/27/24 02/27/24 History release ferrous sulfate 325 mg (65 mg 325 mg PO TID 02/06/24 02/27/24 02/27/24 History iron) tablet (FeroSul) albuterol sulfate 90 mcg/actuation inhalation 07/27/24 Unknown History aerosol inhaler alendronate 10 mg tablet mg PO 07/27/24 Unknown History apixaban 5 mg tablet (Eliquis) mg PO BID 07/27/24 Unknown History hydroxyzine HCl 25 mg tablet mg 07/27/24 Unknown History levothyroxine 125 mcg tablet mcg 07/27/24 Unknown History rkybpbfb-bay-rmoxp acid 0.4 1 tablet PO DAILY 07/27/24 Unknown History mg-lycopene 300 mcg-lutein 250 mcg tablet (Adults 50 Plus) Allergies Allergy/AdvReac Type Severity Reaction Status Date / Time ciprofloxacin (From Cipro) Allergy Other Verified 07/27/24 08:20 Review of Systems 2 Review of Systems: All systems reviewed & are unremarkable except as noted in HPI and below PMFSH Past Medical History Medical History Bradycardia Hypothyroidism Hyperparathyroidism HTN (hypertension) Renal tubular acidosis Trichotillomania Surgical History Surgical History History of colon surgery 02/15/22 Open right hemicolectomy with ileocolic anastomosis History of extraction of renal calculus History of colonoscopy with polypectomy May 2021 with benign polypectomy History of laparoscopic cholecystectomy cholecystectomy during her laparoscopic gastric surgery History of laparoscopic appendectomy H/O knee surgery H/O gastric bypass 2002 in [place] - laparoscopic duodenal switch procedure H/O parathyroidectomy Family History Family History Father Asthma Hypertension Mother Breast cancer Sibling Diabetes mellitus Hypertension Grandparent Cancer Grandparent Diabetes mellitus Cancer Other No pertinent family history Social History Social History Smoking status: Never smoker Alcohol intake: never Substance use: never Substance use type: does not use Other substance usage details: none Do You Feel Safe in your Home?: Yes Lack of Transportation: No Lack of Food: Never True Current Housing: I Have Housing Concerned About Future Housing: No Difficulty Paying Gas/Electric Bills: No Difficulty Paying for Meds: No Currently Unemployed: No Education: Decline to Answer Difficulty w/ Childcare or Family Care: No Occupation/Education: other Additional occupation/education comments: on disability Spiritual care concerns: No Exam 2 Narrative: GENERAL APPEARANCE: WELL-DEVELOPED, WELL-NOURISHED SKIN: NORMAL COLOR , 3+ EDEMA OF THE LOWER EXTREMITY BILATERALLY HEAD: NORMOCEPHALIC, NONTRAUMATIC EYES: CLEAR CONJUNCTIVA ENT: OROPHARYNX NORMAL, EARS NORMAL, NOSE NORMAL NECK: SUPPLE, NONTENDER CHEST AND RESPIRATORY: AIRWAY PATENT, NO RESPIRATORY DISTRESS, NO ACCESSORY MUSCLE USE HEART: REGULAR RATE/RHYTHM ABDOMEN: SOFT, NONTENDER, SOFT VENTRAL HERNIA,NO ORGANOMEGALY, QUIET BOWEL SOUNDS VASCULAR: NORMAL PERIPHERAL PULSES, NORMAL CAPILLARY REFILL. MUSCULOSKELETAL: NORMAL RANGE OF MOTION, NONTENDER BACK NEUROLOGIC: ALERT AND ORIENTED ?3, DEPUTY ATTORNEY GENERAL IS NORMAL TESTED, NO GROSS MOTOR DEFICIT Course Vital Signs Vital signs: Vital Signs Temperature 36.3 C L 08/13/24 18:58 Pulse Rate 80 08/13/24 18:58 Respiratory Rate 16 08/13/24 18:58 Blood Pressure 111/77 08/13/24 18:58 Pulse Oximetry 99 08/13/24 18:58 Oxygen Delivery Room Air 08/13/24 18:58 Temperature 36.3 C L 08/13/24 18:58 Pulse Rate 80 08/13/24 18:58 Respiratory Rate 16 08/13/24 18:58 Blood Pressure 111/77 08/13/24 18:58 Pulse Oximetry 99 08/13/24 18:58 Oxygen Delivery Room Air 08/13/24 18:58 Medical Decision Making MDM Narrative Medical decision making narrative: PATIENT REFERRED TO THE EMERGENCY ROOM BY HER FAMILY PHYSICIAN BECAUSE OF HYPOKALEMIA AND HYPOCALCEMIA VITAL SIGNS ARE STABLE PHYSICAL EXAMINATION SIGNIFICANT FOR ABDOMINAL HERNIA WHICH IS SOFT AND REDUCIBLE, 3+ EDEMA LOWER EXTREMITY BILATERALLY. DIFFERENTIAL DIAGNOSIS INCLUDE ELECTROLYTE IMBALANCE, HYPOKALEMIA, HYPOCALCEMIA, HYPOMAGNESEMIA BLOOD WORKUP TODAY INCLUDES CBC, CMP, MAGNESIUM LEVEL, PHOSPHORUS LEVEL, SHOWED HEMOGLOBIN OF 10.3, POTASSIUM OF 2.4, CREATININE 1.2, CALCIUM 6.1, MAGNESIUM 1.2, AST 69, ALT 39, ALKALINE PHOSPHATASE 160, BNP 816, TOTAL PROTEIN 5.9, ALBUMIN 2.1 CHEST X-RAY SHOWED NO ACUTE ABNORMALITIES PATIENT USUALLY GO TO [facility], ALL HER SPECIALIST WORKING OVER THERE. DECLINED TO GO BACK TO [facility] AGAIN. PATIENT IS HEMODYNAMICALLY STABLE Differential Diagnosis Differential Diagnosis: ABOVE Vital Signs Vital Signs: Vital Signs Temperature 36.3 C L 08/13/24 18:58 Pulse Rate 80 08/13/24 18:58 Respiratory Rate 16 08/13/24 18:58 Blood Pressure 111/77 08/13/24 18:58 Pulse Oximetry 99 08/13/24 18:58 Oxygen Delivery Room Air 08/13/24 18:58 Temperature 36.3 C L 08/13/24 18:58 Pulse Rate 80 08/13/24 18:58 Respiratory Rate 16 08/13/24 18:58 Blood Pressure 111/77 08/13/24 18:58 Pulse Oximetry 99 08/13/24 18:58 Oxygen Delivery Room Air 08/13/24 18:58 Lab Data 08/13/24 19:56 08/13/24 19:56 Labs: Lab Results 08/13/24 Range/Units 19:56 WBC 4.2 L (4.8-10.8) K/mm3 RBC 3.40 L (4.20-5.40) M/mm3 Hgb 10.3 L (11.7-13.8) g/dL Hct 33.2 L (35.0-42.0) % MCV 97.6 (78.0-102.0) fL MCH 30.3 (27.0-31.0) pg MCHC 31.0 L (32-36) g/dL RDW 17.6 H (11.6-14.4) % Plt Count 240 (150-420) K/mm3 MPV 9.9 (9.2-11.8) fl Immature Gran % (Auto) 0.2 H (0.0-0.0) % Neut % (Auto) 77.0 H (50.0-70.0) % Lymph % (Auto) 13.3 L (18.0-42.0) % [place] % (Auto) 7.4 (2.0-11.0) % Eos % (Auto) 1.4 (1.0-6.0) % Baso % (Auto) 0.7 (0.0-1.0) % Lymph # (Auto) 0.56 L (1.10-4.50) K/mm3 [place] # (Auto) 0.31 (0.10-0.90) K/mm3 Eos # (Auto) 0.06 (0.02-0.50) K/mm3 Baso # (Auto) 0.03 (0.00-0.10) K/mm3 Abs Immat Gran (auto) 0.01 H (0.00-0.00) K/mm3 Absolute Neuts (auto) 3.23 (1.70-7.20) K/mm3 Absolute Nucleated RBC 0.00 (0.00-0.00) K/mm3 Nucleated RBC % 0.0 (0-0.0) % PT 12.9 H (9.50-12.1) Seconds INR 1.2 APTT 27.6 (23.9-30.70) Sec Sodium 143 (136-145) mmol/L Potassium 2.4 L* (3.5-5.1) mmol/L Chloride 108 (98-108) mmol/L Carbon Dioxide 26 (21-32) mmol/L Anion Gap 9 (4-12) mmol/L BUN 13 (7-18) mg/dL Creatinine 1.26 H (0.55-1.02) mg/dL Estim Creat Clear Calc 43 ml/min Estimated GFR 43 L (59 - ) Glucose 113 H (70-99) mg/dL Calculated Osmolality 297 H (285-295) mOsm/kg Calcium 6.1 L (8.5-10.1) mg/dL Phosphorus 3.7 (2.6-4.7) mg/dL Magnesium 1.6 L (1.8-2.4) mg/dL Total Bilirubin 0.6 (0.00-1.00) mg/dL AST 69 H (15-37) U/L ALT 39 (14-59) U/L Alkaline Phosphatase 160 H (46-116) U/L NT-Pro-B Natriuret Pep 816 H (0-125) pg/mL Total Protein 5.9 L (6.4-8.2) g/dL Albumin 2.1 L (3.4-5.0) g/dL Imaging Data Radiologist's impression: Impressions Chest X-Ray 08/13/24 20:15 IMPRESSION: 1. No acute cardiopulmonary disease. ECG Data EKG #1: Attestation: I personally reviewed and interpreted this ECG as follows: ECG completion date: 08/13/24 Interpretation: NORMAL SINUS RHYTHM AT 71 BEATS PER MINUTE, LEFT AXIS DEVIATION, BORDERLINE EKG, NO PREVIOUS EKG AVAILABLE FOR COMPARISON Critical Care Time Critical Care Time Critical Care Time: No Discharge Plan Discharge Clinical Impression: Hypokalemia, Hypocalcemia, Hypomagnesemia, Leg edema Patient Disposition: Still a Patient Condition: Stable Patient Language: Divehi Prescriptions: No Action cyanocobalamin (vitamin B-12) 2,500 mcg PO DAILY ergocalciferol (vitamin D2) [Vitamin D2] 1,250 mcg (50,000 unit) Capsule 1,250 mcg PO WEEKLY calcium citrate 250 mg calcium Tablet 250 mg PO TID fluoxetine 40 mg capsule 40 mg PO BID metoprolol succinate 50 mg tablet extended release 24 hr 50 mg PO DAILY potassium chloride 20 mEq tablet,ER particles/crystals 20 meq PO BID amitriptyline 10 mg tablet 10 mg PO BID calcitriol 0.5 mcg capsule See Rx Instructions .ROUTE .COMPLEX Rx Instructions: Take 2 capsules 3 x's daily ferrous sulfate [FeroSul] 325 mg (65 mg iron) tablet 325 mg PO TID alendronate 10 mg tablet PO levothyroxine 125 mcg tablet hydroxyzine HCl 25 mg tablet albuterol sulfate 90 mcg/actuation HFA aerosol inhaler INHALATION Eliquis 5 mg tablet PO BID Adults 50 Plus 0.4 mg-300 mcg- 250 mcg tablet 1 tablet PO DAILY ondansetron 4 mg tablet,disintegrating 4 mg PO Q8H Qty: 7 0RF sodium bicarbonate 650 mg tablet See Rx Instructions .ROUTE .COMPLEX Rx Instructions: take 4 tabs in morning, 5 in afternoon, and 4 at HS beta carotene 30 mg capsule 30 mg PO DAILY pantoprazole 40 mg tablet,delayed release (DR/EC) 40 mg PO BID calcium carbonate [Tums] 200 mg calcium (500 mg) tablet,chewable 200 mg PO BID Follow-up/Referrals: Priyank Zepeda MD [Primary Care Provider] -
--- OUTSIDE RECORDS SUMMARY | 2024-08-13 19:46 | XMS_ITS | Encounter Summary ---
Author Organization [facility] Address [address] [place] [address] Phone Care Team Providers Care Adjunct Instructor Name Role Phone Priyank Zepeda MD Primary Care Provider [phone] Encounter Details Date Type Department Care Team (Late Contact Info) Description 01/03/2020 Orders Only [facility] [address] [place] [address] Kristofer Ortiz MD [address] [place] [address] Chronic kidney disease stage 3 [...] Description 10/22/2024 10:45 AM CDT Office Visit [facility] [address] [place] [phone] Kristofer Ortiz MD [address] [place] [address] [address] documented as of this encounter Visit Diagnoses Diagnosis Chronic kidney disease stage 3 (HCC) documented in this encounter Care Teams Adjunct Instructor Relationship Specialty Start Date End Date Priyank Zepeda MD [address] [place] [address] PCP - General Internal Medicine 05/17/19 documented as of this encounter
--- OUTSIDE RECORDS SUMMARY | 2024-08-13 19:46 | XMS_ITS | Clinical Summary ---
Author Organization [facility] Address [address] [place] [address] Care Team Providers Care Logistics Officer Name Role Phone Priyank Zepeda MD Primary Care Provider [phone] Allergies Active Allergy Reactions Criticality Noted Date [...] Years Used Date Smoking Tobacco: Never [facility] [employer]ities Answer Date Recorded In the past 12 months has e [employer], oil, or water [employer] threatened to shut off services in your [...] time in the past 12 m [facility], were you homeless or living in a usp (including now)? No 11/17/2023 Comments Unknown Sex [...] Most Recently Relevant to Health Maintenance Insurance [employer] Advance Directives * Full Code (Latest Code Status on File) Date Activated Date Inactivated Comments 11/17/2023 1:12 AM 11/18/2023 5:01 PM * Full Code Date Activated Date Inactivated Comments 09/28/2023 1:27 AM 10/02/2023 3:59 PM Care Teams Logistics Officer Relationship Specialty Start Date End Date Priyank Zepeda MD [address] [place] [address] PCP - General INTERNAL MEDICINE 09/19/19
--- OUTSIDE RECORDS SUMMARY | 2024-08-13 19:46 | XMS_ITS | Encounter Summary ---
Author Organization [facility] Address [address] [place] [address] Care Team Providers Care Hat Band Attacher Name Role Phone Priyank Zepeda MD Primary Care Provider [phone] Encounter Details Date Type Department Care Team (Late st Contact Info) Description 10/03/2023 Hospital Follow-up Call [facility] Unit [address] [place] [address] Chelsea Bishop RN Social History Tobacco Use Types Packs/Day Years Used Date Smoking Tobacco: Never [facility] Utilities Answer Date Recorded In the past 12 months has e electric, gas, oil, or water [employer] threatened to shut off services in your [...] any time in the past 12 m [facility], were you homeless or living [...] on filedocumented in this encounter Care Teams Hat Band Attacher Relationship Specialty Start Date End Date Priyank Zepeda MD [address] [place] [address] PCP - General INTERNAL MEDICINE 09/19/19 documented as of this encounter
--- OUTSIDE RECORDS SUMMARY | 2024-08-13 19:46 | XMS_ITS ---
Author Organization Unknown Address [address] [place] [id number] Phone Care Team Providers Care Fire Control Technician Name Role Phone GARFIELD Ashby Attending Unavailable [...] em Smoking History Never smoker (Never Smoked) 826280274 SNOMED CT Sex Female Vital Signs Vital Sign Value Unit Routt Value Routt Unit Date/Time Recent/Initial? Code Code System Body Mass Index 30.45 kg/m2 11/13/2023 14:43 Initial 50919 -5 INC Systolic Blood Pressure 136 mm[Hg] 12/14/2023 08:17 Initial 8480- 6 LOINC Diastolic Blood Pressure 78 mm[Hg] 12/14/2023 08:17 Initial 8462- 4 INC Body Surface Area 1.95 m2 11/13/2023 14:43 Initial 3140- 1 LOINC Height 165.100 0 cm 65.00 in 11/13/2023 14:43 Initial 8302- 2 INC O2 Saturation 99 % 2023 08:17 Initial 79973 -5 INC Pulse 57.0 /min 12/14/2023 08:17 Initial 8867- 4 LOINC Respiration 20 /min 12/14/19 08:17 Initial 9279- 1 LOINC Temperature 36.2 Kait 97.1 F 12/14/19 24 08:17 Initial 8310- 5 LOINC Weight 83.01 kg 183.00 lbs 11/13/2023 14:43 Initial 68726 -7 [facility] Medications Medication Start Date End Date Route Frequency Dose Code Code System Medication Instructions Home Meds Vitamin B12 1000 MCG Sublingual Tablet 12/14/2023 Unknown SUBLINGUAL ONCE A DAY [address] 1000 MCG SUBLINGUAL ONCE A DAY Tums Extra Strength 750 MG Oral Tablet, Chewable 12/14/2023 Unknown ORAL NEEDED 750 MG 9280481 RxNorm TAKE 750 MG ORAL NEEDED Amitriptyline 10MG Oral Tablet 12/14/2023 Unknown ORAL TWICE A DAY 10 MILLIGRA MS 168834 RxNorm TAKE 10 MILLIGRAMS ORAL TWICE A DAY Calcitriol 0.5MCG Oral Capsule, Liquid Filled 12/14/2023 Unknown ORAL TWICE A DAY 2 CAPSULE 419340 RxNorm TAKE 2 CAPSULE ORAL TWICE A DAY Calcium Citrate Powder 12/14/2023 Unknown ROUTE NOT APPLICABLE 1 unit(s) RxNorm 1 EACH ROUTE NOT APPLICABLE Eliquis 5MG Oral Tablet 12/14/2023 12/14/19 24 ORAL TWICE A DAY 5 MILLIGRA MS 4743790 RxNorm TAKE 5 MILLIGRAMS ORAL TWICE A DAY FLUoxetine 20MG/5ML Oral Solution 12/14/2023 Unknown ORAL TWICE A DAY 869182 RxNorm TAKE mL ORAL TWICE A DAY Iron 325MG Oral Tablet 12/14/2023 Unknown ORAL THREE TIMES A DAY 325 MILLIGRA MS 641975 RxNorm TAKE 325 MILLIGRAMS ORAL THREE TIMES A DAY Levothyroxine 125MCG Oral Tablet 12/14/2023 Unknown ORAL ONCE A DAY 0.5 TABLET 412429 RxNorm TAKE 0.5 TABLET ORAL ONCE A DAY Loratadine 10MG Oral Tablet 12/14/2023 Unknown ORAL NEEDED 10 MILLIGRA MS 072005 RxNorm TAKE 10 MILLIGRAMS ORAL NEEDED Metoprolol Succinate 50MG Oral Tablet, Extended Release 12/14/2023 Unknown ORAL ONCE A DAY 50 MILLIGRA MS 893493 RxNorm TAKE 50 MILLIGRAMS ORAL ONCE A DAY Potassium Chloride 20MEQ Oral Tablet, Extended Release 12/14/2023 Unknown ORAL TWICE A DAY 20 MEQ 1753404 RxNorm TAKE 20 MEQ ORAL TWICE A DAY Sodium Bicarbonate 650MG Oral Tablet 12/14/2023 Unknown ORAL THREE TIMES A DAY 650 MILLIGRA MS 793722 RxNorm TAKE 650 MILLIGRAMS ORAL THREE TIMES A DAY Tab-A-Ezio 48HG-69HN-064P U-6MCG Oral Tablet 12/14/2023 Unknown ORAL ONCE A DAY 1 unit(s) 364846 RxNorm TAKE 1 EACH ORAL ONCE A [...] Code Syste m Vocal cord nodule completed 75000249 SNOMEDC T Fracture of tibia completed 14546040 SNOMEDC T Volvulus completed 4155995 SNOMEDCT APPENDECTOMY completed 38221629 SNOMEDCT Removal of kidney stone completed 5624872 S NOMEDCT Anesthesia for lower intesti nal endoscopic procedures, endoscope introduce 12/14/2023 completed 06836 CPT Gastric bypass completed 333251108 SNOMEDCT History of parathyroidectomy completed 8324311 57532150 SNOMEDCT Colonoscopy, flexible; with biopsy, single or multiple 12/14/2023 completed 97978 CPT Problems Problem Start Date Resolved Date Status Code Code System CHRONIC KIDNEY DISEASE, STAG E 3A active 676569949 SNOMED-CT Allergies and Adverse Reactions Allergy Substance Reaction Severity Start Date Concern Status Code Code System ADHESIVE Itching (SNOMED-CT: 850985161) Active SUCCINYLCHOLINE CHLORIDE HARD TO WAKE UP (SNOMED-CT: null) Active 3565 RxNorm CIPRO REDNESS IV ONLY (SNOMED-CT: null) Mild Active 602785 RxNorm No Known Drug Allergies Active 685741381 SNOMED-CT Plan of Treatment Colonoscopy 12/14/2023 Encounters Encounter Diagnosis Start Date Code Code Sys tem Noninfective gastroenteritis and colitis, unspecified 12/14/2023 SNOMED-CT Personal Care Team Section Performer Name Performer Role Active Date Inactive KIERAN Gilbert PCP - Primary care physician 2024-04-16
--- OUTSIDE RECORDS SUMMARY | 2024-08-13 19:46 | XMS_ITS | Encounter Summary ---
Author Organization [facility] Address [address] [place] [address] Phone Care Team Providers Care Translator And Interpreter Name Role Phone Priyank Zepeda MD Primary Care Provider [phone] Encounter Details Date Type Department Care Team (Late Contact Info) Description 12/06/2019 Orders Only [facility] [address] [place] [address] Kristofer Ortiz MD [address] [place] [address] Chronic kidney disease stage 3 [...] Description 10/22/2024 10:45 AM CDT Office Visit [facility] [address] [place] [address] Kristofer Ortiz MD [address] [place] [address] [address] documented as of this encounter Visit Diagnoses Diagnosis Chronic kidney disease stage 3 (HCC) documented in this encounter Care Teams Translator And Interpreter Relationship Specialty Start Date End Date Priyank Zepeda MD [address] [place] [address] PCP - General Internal Medicine 05/17/19 documented as of this encounter
--- OUTSIDE RECORDS SUMMARY | 2024-08-13 19:47 | XMS_ITS | Clinical Summary ---
Author Organization [facility] Address [address] [address] Care Team Providers Care Boring Mill Operator Name Role Phone Priyank Zepeda MD Primary Care Provider [phone] Allergies Active Allergy Reactions Criticality Noted Date [...] mouth in the morning. 5 Active pancrelipase, Edl-Qvja-Yqcf, (CREON) 887[address] units capsule Take 1 capsule by mouth in the morning and 1 capsule at noon and 1 capsule in the evening. Take with meals. 5 Active Cholecalciferol (Vitamin D3) 1.25 MG (32751 UT) capsule Take 50,000 Units by mouth in the morning and 50,000 Units in the evening. Active multivitamin-ir ng-nurtjgas-wkp ic acid (CENTRUM) chewable tablet Chew 1 [...] 25 Discontinu ed(Therapy completed) ergocalciferol 1.25 MG (51863 UT) capsule Take 50,000 Units by mouth [...] Department Care Team Description 05/22/2024 Documentation Only [facility] [address] [address] Kristofer Ortiz MD from Last [...] CDT Respiratory Rate 18 05/15/2018 11:00 AM SPOOL HAULER Oxygen Saturation 96% 01/23/2024 1:26 PM CDT Inhaled Oxygen Concentration - - Weight 77.6 kg (171 lb) 01/23/2024 1:26 PM CDT Height 165.1 cm (5' 5 ) 01/23/2024 1:26 PM CDT Body Mass Index 28.46 01/23/2024 1:26 PM CDT Plan of Treatment Upcoming Encounters Date Type Department Care Team (Late st Contact Info) Description 10/22/2024 10:45 AM CDT Office Visit [facility] [address] [address] Kristofer Ortiz MD [address] [address] Health Maintenance Due Date Last Done Comments [...] patient's age to complete this topic Insurance [facility] Advance Directives Documents on File Type Date Recorded Patient Pharmacy Aide Expl anation Power of .Net Programmer 10/25/2021 11:10 AM Othe r - POA Power of .Net Programmer 10/25/2021 11:10 AM Othe r - POA Care Teams Boring Mill Operator Relationship Specialty Start Date End Date Priyank Zepeda MD [address] [place] [address] PCP - General Internal Medicine 05/17/19
--- OUTSIDE RECORDS SUMMARY | 2024-08-13 19:47 | XMS_ITS | Clinical Summary ---
Author Organization [facility] Address [address] [place] [address] Care Team Providers Care Sugar Controller Name Role Phone Gayla Villar Primary Care Provider [phone] Social History Tobacco Use Types Packs/Day Years Used Date Smoking Tobacco: Never Assessed Comments Unknown Sex and Gender Information Value Date Recorded Sex Assigned at Not on file Legal Sex Female 4:22 PM [employer] Gender Identity Not on file Sexual Orientation [...] 75+ series) 2034 Insurance [place] Care Teams Sugar Controller Relationship Specialty Start Date End Date Gayla Villar [address] [place] [address] PCP - General 03/11/02
--- OUTSIDE RECORDS SUMMARY | 2024-08-13 19:47 | XMS_ITS | Patient Health Summary ---
Author Organization [facility] Address [address] [place] [address] Care Team Providers Care Windsurfing Instructor Name Role Phone Priyank Zepeda MD Primary Care Provider [phone] Note from [facility],non-owned Affiliates and Associated Physician Practices is amultiple site organization consisting of ambulatory clinics and hospital sitesin [place], [place], [place] and [place]. This disclosure is being madepursuant to the Care Everywhere program and may not contain all information available regarding this patient. Last updated 18.[facility] Allergies * Adhesive Sensitivity(Itching) * Ciprofloxacin(Itching) * [...] nightly * Cholecalciferol (vitamin D3) 1.25 MG (00396 UT) capsule(Started 08/09/2024) Take 1 (one) capsule by mouth every 7 days * furosemide (Lasix) 40 MG tablet(Started 08/07/2024) Take 1 (one) tablet by mouth once daily * Calcium Carbonate Antacid (calcium carbonate, 500 mg elemental Ca/5 mL,) 1250 MG/5ML suspension(Started 08/07/2024) Take 10 mL by mouth 3 times daily with meals 1 refill by 08/07/2025 * pancrelipase (Creon 24,000) 24928-26796 units capsule(Started 08/07/2024) Take 1 (one) capsule [...] 3 times daily * pancrelipase (Creon 24,000) 44421-24531 units capsule(Started 08/07/2024) (Discontinued) Take 1 (one) [...] medical care, and heating? Somewhat hard 07/28/2024 [facility] - Occupational Stress [...] any time in the past 12 m [facility], were you homeless or living in a residential (including now)? No 07/28/2024 Sex and Gender Information Value Date Recorded Sex Assigned at Not on file Gender Identity Not on file Sexual Orientation Not on file Last Filed Vital Signs Vital Sign Reading Time Taken Comments Blood Pressure 112/78 08/07/2024 2:44 PM NEON TUBE PUMPER Pulse 93 08/07/2024 2:44 PM [employer] T[employer]BE PU[employer]ER Temperature 37.5 C (99.5 F) 08/07/2024 11:33 AM NEON TUBE PUMPER Respiratory Rate 18 08/07/2024 11:3 3 AM NE[employer] TUBE PUMPER Oxygen Saturation 97% 08/07/2024 2:44 PM NE[employer] TUBE PUMPER Inhaled Oxygen Concentration - - Weight 87.5 kg (192 lb 14.4 oz) 025 12:04 AM NE[employer] TUBE PUMPER Height 165.1 cm (5' 5 ) 07/28/2024 4:01 PM [employer] TUBE PUMPER Body Mass Index 32.1 07/28/2024 4:01 PM [employer] TUBE PU[employer]ER Procedures * CARDIAC RHYTHM STRIP ORDER(Performed 08/08/2024) [...] HCT PANEL(Performed 07/29/2024) * PT-INR(Performed 07/29/2024) * ME ED EGD FLEX TRANSORAL DX(Performed 07/29/2024) * EGD(Performed 07/29/2024) * CBC W/O DIFFERENTIAL(Performed 07/29/2024) * COMPREHENSIVE METABOLIC PANEL(Performed 07/29/2024) * MAGNESIUM BLOOD(Performed 07/29/2024) * PHOSPHORUS BLOOD(Performed 07/29/2024) * CULTURE BLOOD(Performed 07/28/2024) * CULTURE BLOOD(Performed 07/28/2024) * TYPE + SCREEN PANEL(Performed 07/28/2024) * COMPREHENSIVE METABOLIC PANEL(Performed 07/28/2024) * CBC W/O DIFFERENTIAL(Performed 07/28/2024) Results * CARDIAC RHYTHM STRIP ORDER (08/08/2024 11:03 PM NEON TUBE PUMPER) Narrative 08/08/2024 11:03 PM NE[employer] TUBE PUMPER Ordered by an unspecified provider. Scanned Document CARDIAC SERVICES ORD ERABLES * APHERESIS/TRANSFUSION ORDER (08/08/2024 11:03 PM NEON TUBE PUMPER) Narrative 08/08/2024 11:03 PM NE[employer] TUBE PUMPER Ordered by an unspecified provider. Scanned Document NURSING - VITAL SIGN S AND ASSESSMENT * B-TYPE NATRIURETIC PEPTIDE (08/07/2024 1:59 AM NEON TUBE PUMPER) [facility] BNP 35 <=100 pg/mL 08/07/2024 2:52 AM NEON TUBE PUMPER [facility] Blood BLOOD SPECIMEN / Unknown Venipuncture / Unknown 08/07/2024 1:59 AM NEON TUBE PUMPER 08/07/2024 2:19 AM NE[employer] TUBE PUMPER Chika Chew MD LAB - CHEMISTRY AIDEN KEVIN [facility] [address] [place] [address] * (ABNORMAL) COMPREHENSIVE METABOLIC PANEL (08/07/2024 1:59 AM NEON TUBE PUMPER) Only the most recent of6 resultswithin the time period is included. [facility] Glucose 97 70 - 99 mg/dL 08/07/2024 2:55 AM NEON TUBE PUMPER [facility] Sodium 136 136 - 145 mmol/L 08/07/2024 2:55 AM NEON TUBE PUMPER [facility] Potassium 3.9 3.5 - 5.1 mmol/L 08/07/2024 2:55 AM [facility] Chloride 104 98 - 107 mmol/L 08/07/2024 2:55 AM NEON TUBE PUMPER [facility] CO2 23 22 - 29 mmol/L 08/07/2024 2:55 AM NEON TUBE PUMPER [facility] Calcium 6.8(L) 8.4 - 10.4 mg/dL 08/07/2024 2:55 AM NEON TUBE PUMPER [facility] Anion Gap 9 6 - 16 mmol/L 08/07/2024 2:55 AM [facility] BUN 9 7 - 26 mg/dL 08/07/2024 2:55 AM [facility] Creatinine 0.95 0.57 - 1.11 mg/dL 08/07/2024 2:55 AM [facility] Alkaline Phosphatase 91 40 - 150 U/L 08/07/2024 2:55 AM [facility] ALT 21 0 - 55 U/L 08/07/2024 2:55 AM [facility] AST 28 5 - 34 U/L 08/07/2024 2:55 AM [facility] Protein Total 4.9(L) 6.4 - 8.3 gm/dL 08/07/2024 2:55 AM [facility] Albumin 2.1(L) 3.4 - 5.0 gm/dL 08/07/2024 2:55 AM [facility] Bilirubin Total 0.6 0.2 - 1.2 mg/dL 08/07/2024 2:55 AM [facility] eGFR by CKD-EPI 66(L) >=90 mL/min/1.7 3 m2 08/07/2024 2:55 AM [facility] Blood BLOOD SPECIMEN / Unknown Venipuncture / Unknown 08/07/2024 1:59 AM NE[employer] TUBE PUMPER 08/07/2024 2:19 AM NE[employer] TUBE PUMPER Chika Chew MD [facility] Organization Address City/State/ZIP Co de Phone Number [facility] [address] [place] [id number] * VAS Bilateral Venous Duplex Le (08/06/2024 2:30 PM NEON TUBE PUMPER) Anatomical Region Laterality Modality Lower Extremity Ultrasound 08/06/2024 1:50 PM NE[employer] TUBE PUMPER Narrative Procedure Note Jorge Barakat MD - 08/07/[address] [address] Lower Extremity Venous Ultrasound Report Pat.Name: SARAHY RODRIGUEZ Pat.ID: [id number] .Date: 08/06/2024 Exam Time: 1:50:00 PM Study Type:LE Venous Age: 1 1960,64Y Sex: FEMALE Sonogrphr: Binh Eldridge RVT Pat. Stat.:Inpatient Room: [facility] ICD - 9: R60.0 CPT - 4: 02258 Reason for Study: Bilateral leg edema History / Clinical: CKD, Liver cirrhosis Procedures: Lower Extremity Venous - Bilateral Race: 1 Visit ID: [id number] ++++++++++++++++++++++++++++++++++++ SUMMARY: ++++++++++++++++++++++++++++++++++++ There is no evidence [...] METABOLIC PANEL (CALCIUM TOTAL) (08/06/2024 6:07 AM NEON TUBE PUMPER) Only the most recent of2 resultswithin the time period is included. [facility] Glucose 87 70 - 99 mg/dL 08/06/2024 8:46 AM [facility]UBE PU[facility] Sodium 137 136 - 145 mmol/L 08/06/2024 8:46 AM NE[employer] TUBE PUMPER [facility] Potassium 3.0(L) 3.5 - 5.1 mmol/L 08/06/2024 8:46 AM [facility] Chloride 103 98 - 107 mmol/L 08/06/2024 8:46 AM [facility] CO2 27 22 - 29 mmol/L 08/06/2024 8:46 AM [facility] Calcium 6.7(L) 8.4 - 10.4 mg/dL 08/06/2024 8:46 AM [facility] Anion Gap 7 6 - 16 mmol/L 08/06/2024 8:46 AM [facility] BUN 7 7 - 26 mg/dL 08/06/2024 8:46 AM [facility] Creatinine 0.81 0.57 - 1.11 mg/dL 08/06/2024 8:46 AM [facility] eGFR by CKD-EPI 81(L) >=90 mL/min/1.7 3 m2 08/06/2024 8:46 AM [facility] Blood BLOOD SPECIMEN / Unknown Venipuncture / Unknown 08/06/2024 6:07 AM NEON TUBE PUMPER 08/06/2024 6:11 AM NEON TUBE PUMPER Chika Chew MD LAB - CHEMISTRY ORDKyle KEVIN Performing Organization Address City/[facility]/ZIP Co de Phone Number [facility] [address] [place] [address] * PHOSPHORUS BLOOD (08/06/2024 6:07 AM NEON TUBE PUMPER) Only the most recent of3 resultswithin the time period is included. Phosphorus 3.7 2.5 - 4.5 mg/dL 08/06/2024 6:27 AM [facility] Blood BLOOD SPECIMEN / Unknown Venipuncture / Unknown 08/06/2024 6:07 AM NEON TUBE PUMPER 08/06/2024 6:11 AM NE[employer] TUBE PUMPER Miguel Angel Mccain MD LAB - CHEMISTRY ORDKyle KEVIN Performing Organization Address [facility]/ZIP Co de Phone Number [facility] [address] [place] [address] * MAGNESIUM BLOOD (08/06/2024 6:07 AM NEON TUBE PUMPER) Only the most recent of8 resultswithin the time period is included. Magnesium 1.7 1.6 - 2.6 mg/dL 08/06/2024 8:43 AM NEON TUBE PUMPER [facility] Blood BLOOD SPECIMEN / Unknown Venipuncture / Unknown 08/06/2024 6:07 AM NEON TUBE PUMPER 08/06/2024 6:11 AM NEON TUBE PUMPER Chika Chew MD LAB - CHEMISTRY AIDEN KEVIN [facility] [address] [place] [address] * MRI Lumbar Spine Wo Contrast (08/05/2024 9:48 AM NEON TUBE PUMPER) Anatomical Region Laterality Modality Spine Magnetic Resonan ce 08/05/2024 9:51 AM NEON TUBE PUMPER Impressions 08/05/2024 11:53 AM NEON TUBE PUMPER IMPRESSION: Multilevel degenerative disc and joint disease. Mild foraminal narrowing at L3-L4 and L4-L5 levels. No canal narrowing seen. Minimal superior endplate compression at T12, associated with mild marrow edema, less than 25% loss of vertical height. Edited by Tressa Phillips on 08/05/2024 10:17 AM > Interpreting Provider: Stefani Zepeda MD on 08/05/2024 11:53 AM Narrative 08/05/2024 11:53 AM NEON TUBE PUMPER PROCEDURE: MRI LUMBAR SPINE WO CONTRAST DATE/TIME [...] CBC W AUTO DIFFERENTIAL (08/05/2024 6:53 AM NEON TUBE PUMPER) Only the most recent of6 resultswithin the time period is included. WBC 6.8 4.0 - 10.7 x10E9/L 08/05/2024 7:01 AM [facility] RBC Count 2.80(L) 3.90 - 5.20 x10E12/L 08/05/2024 7:01 AM [facility] Hemoglobin 8.6(L) 11.9 - 15.8 g/dL 08/05/2024 7:01 AM [facility] Hematocrit 26.3(L) 34.8 - 46.1 % 08/05/2024 7:01 AM [facility] MCV 93.9 80.0 - 98.0 fL 08/05/2024 7:01 AM [facility] MCH 30.7 26.7 - 33.6 pg 08/05/2024 7:01 AM [facility] MCHC 32.7 31.7 - 36.3 g/dL 08/05/2024 7:01 AM [facility] RDW-CV 17.6(H) 11.3 - 14.8 % 08/05/2024 7:01 AM [facility] Platelet Count 111(L) 150 - 420 x10E9/L 08/05/2024 7:01 AM [facility] MPV 10.1 7.8 - 11.4 fL 08/05/2024 7:01 AM [facility] Neutrophil % 70.0 41.0 - 74.0 % 08/05/2024 7:01 AM [facility] Lymphocyte % 13.8(L) 17.0 - 47.0 % 08/05/2024 7:01 AM [facility] Monocyte % 11.7(H) 3.0 - 11.0 % 08/05/2024 7:01 AM [facility] Eosinophil % 3.7 0.0 - 7.0 % 08/05/2024 7:01 AM [facility] Basophil % 0.4 0.0 - 1.6 % 08/05/2024 7:01 AM [facility] Immature Granulocytes % 0.4 0.0 - 1.0 % 08/05/2024 7:01 AM [facility] Neutrophil Absolute 4.76 1.60 - 7.50 x10E9/L 08/05/2024 7:01 AM [facility] Lymphocyte Absolute 0.94(L) 1.00 - 4.40 x10E9/L 08/05/2024 7:01 AM [facility] Monocyte Absolute 0.80 0.15 - 1.00 x10E9/L 08/05/2024 7:01 AM [facility] Eosinophil Absolute 0.25 0.00 - 0.60 x10E9/L 08/05/2024 7:01 AM [facility] Basophil Absolute 0.03 0.00 - 0.13 x10E9/L 08/05/2024 7:01 AM [facility] Blood BLOOD SPECIMEN / Unknown Venipuncture / Unknown 08/05/2024 6:53 AM NEON TUBE PUMPER 08/05/2024 6:57 AM [facility] Miguel Angel Mccain MD LAB - HEMATOLOGY ORD ERABLES Performing Organization Address City/State/[facility] Co de Phone Number [facility] [address] [place] [address] * URIC ACID URINE TIMED (08/04/2024 1:55 PM NEON TUBE PUMPER) Pathologist [facility] Uric Acid 24 Hour Urine 205.0 142.3 - 713.2 mg/24 hr 08/06/2024 11:10 AM NEON TUBE PUMPER [facility] ([facility]) Uric Acid Urine 20.5 Not Estab. mg/dL 08/06/2024 11:10 AM [facility] ([facility]) Urine TIMED URINE SPECIMEN / Unknown Timed Urine Volume Measurement / Unknown 08/04/2024 1:55 PM NEON TUBE PUMPER 08/04/2024 2:02 PM NEON TUBE PUMPER Narrative [facility] ([facility]) - 08/06/2024 11:10 AM NEON TUBE PUMPER Performed at: 01 - [facility] [address] [place], [place] [id number] Superintendent Police: El Sood PhD, Phone: [phone] Pete Olmos MD LAB - URINE CHEMISTR Y ORDERABLES Performing Organization Address City/[facility] Co de Phone Number [facility] ([facility]) [address] [place] [address] * PROTEIN URINE TIMED QUANTITATIVE (08/04/2024 1:55 PM NEON TUBE PUMPER) Volume 24 Hour Urine 1,000 mL 08/04/2024 2:25 PM NEON TUBE PUMPER [facility] Collection Time Hours 24 hrs 08/04/2024 2:25 PM NEON TUBE PUMPER [facility] Protein 24 Hour Urine 72 <300 mg/24hr 08/04/2024 2:25 PM NEON TUBE PUMPER [facility] Protein Urine 7.2 <11.9 mg/dL 08/04/2024 2:25 PM NEON TUBE PUMPER [facility] Urine TIMED URINE SPECIMEN / Unknown Timed Urine Volume Measurement / Unknown 08/04/2024 1:55 PM NEON TUBE PUMPER 08/04/2024 2:02 PM NEON TUBE PUMPER Pete Olmos MD LAB - URINE CHEMISTR Y ORDERABLES Performing Organization Address City/[facility]/ZIP Co de Phone Number [facility] [address] [place] [id number] * CREATININE CLEARANCE URINE TIMED + BLOOD (08/04/2024 1:55 PM NEON TUBE PUMPER) Volume 24 Hour Urine 1,000 mL 08/04/2024 2:28 PM [facility] TUBE PUMPER [facility] Collection Time Hours 24 hrs 08/04/2024 2:28 PM NEON TUBE PUMPER [facility] Height Inches 65 inches 08/04/2024 2:28 PM [facility] TUBE PUMPER [facility] Weight in Pounds 160 pounds 08/04/2024 2:28 PM [employer] TUBE PUMPER [facility] Surface Area 1.80 08/04/2024 2:28 PM NEON TUBE PUMPER [facility] Creatinine 0.81 0.57 - 1.11 mg/dL 08/04/2024 2:28 PM [facility] Creatinine Urine 82.74 mg/dL 08/04/2024 2:28 PM [facility] Creatinine 24 Hour Urine 827 710 - 1,650 mg/24hr 08/04/2024 2:28 PM [facility] Creatinine Clearance 68 66 - 165 mL/min/1.73 m2 08/04/2024 2:28 PM [facility] Urine TIMED URINE SPECIMEN / Unknown Timed Urine Volume Measurement / Unknown 08/04/2024 1:55 PM NEON TUBE PUMPER 08/04/2024 2:02 PM NEON TUBE PUMPER Pete Olmos MD LAB - URINE CHEMISTR Y ORDERABLES [facility] [address] [place], [place] [id number] * (ABNORMAL) CALCIUM URINE TIMED (08/04/2024 1:55 PM NEON TUBE PUMPER) Pathologist [facility] Calcium Random Urine <2.0 Not [...] Volume Measurement / Unknown 08/04/2024 1:55 PM NEON TUBE PUMPER 08/04/2024 2:02 PM NEON TUBE PUMPER Pete Olmos MD LAB - URINE CHEMISTR Y ORDERABLES [facility] [address] [place] [address], [facility] [phone] * (ABNORMAL) URINALYSIS REFLEX TO MICROSCOPIC NO CULTURE (08/03/2024 12:49 PM NEON TUBE PUMPER) Color UA Yellow Yellow, Straw 08/03/2024 1:30 PM NEON TUBE PUMPER [facility] Clarity UA Clear Clear 08/03/2024 1:30 PM NEON TUBE PUMPER [facility] Glucose UA Normal Normal 08/03/2024 1:30 PM NEON TUBE PUMPER [facility] Bilirubin UA Negative Negative 08/03/2024 1:30 PM NEON TUBE PUMPER [facility] Ketone UA Negative Negative 08/03/2024 1:30 PM NEON TUBE PUMPER [facility] Specific [place] UA 1.013 1.005 - 1.030 08/03/2024 1:30 PM NEON TUBE PUMPER [facility] Blood UA Negative Negative 08/03/2024 1:30 PM NEON TUBE PUMPER [facility] pH UA 7.5 5.0 - 9.0 pH 08/03/2024 1:30 PM NEON TUBE PUMPER [facility] Protein UA Negative Negative 08/03/2024 1:30 PM NEON TUBE PUMPER [facility] Urobilinogen UA Normal Normal mg/dL 08/03/2024 1:30 PM NEON TUBE PUMPER [facility] Nitrite UA Negative Negative 08/03/2024 1:30 PM NEON TUBE PUMPER [facility] Leukocyte UA 75 JAQUI/uL(A) Negative 08/03/2024 1:30 PM NEON TUBE PUMPER [facility] RBC UA 0-2 0 - 5 # /hpf 08/03/2024 1:30 PM NEON TUBE PUMPER [facility] WBC UA 6-10(A) 0 - 5 # /hpf 08/03/2024 1:30 PM NEON TUBE PUMPER [facility] Bacteria UA Trace(A) None Seen 08/03/2024 1:30 PM NEON TUBE PUMPER [facility] Squamous Epithelial Cells 0-2 0 - 5 /hpf 08/03/2024 1:30 PM NEON TUBE PUMPER [facility] Budding Yeast Few(A) None seen /hpf 08/03/2024 1:30 PM NEON TUBE PUMPER [facility] Urine URINE SPECIMEN OBTAINED BY CLEAN CATCH PROCEDURE / Unknown Collection / Unknown 08/03/2024 12:49 PM NEON TUBE PUMPER 08/03/2024 12:53 PM NEON TUBE PUMPER Narrative [facility] - 08/03/2024 1:30 PM NEON TUBE PUMPER Pete Olmos MD LAB - URINALYSIS ORD ERABLES [facility] [address] [place] [address] * XR Lumbar Spine 2 or 3Vw (08/02/2024 2:10 PM NEON TUBE PUMPER) Anatomical Region Laterality Modality Spine Computed Radiogr aphy 08/02/2024 2:26 PM NEON TUBE PUMPER Narrative 08/02/2024 2:29 PM NEON TUBE PUMPER EXAM: XR LUMBAR SPINE 2 OR 3VW [...] PTH INTACT W/O CALCIUM (08/02/2024 3:19 AM NEON TUBE PUMPER) PTH Intact 275.2(H) 8.7 - 77.1 pg/mL 08/02/2024 4:05 AM NEON TUBE PUMPER [facility] Blood BLOOD SPECIMEN / Unknown Venipuncture / Unknown 08/02/2024 3:19 AM NEON TUBE PUMPER 08/02/2024 3:30 AM NE[employer] TUBE PUMPER Miguel Angel Mccain MD LAB - CHEMISTRY AIDEN KEVIN [facility] Organization Address City/State/ZIP Co de Phone Number [facility] [address] [place] [address] * (ABNORMAL) RENAL FUNCTION PANEL (08/02/2024 3:19 AM NEON TUBE PUMPER) Only the most recent of3 resultswithin the time period is included. Glucose 112(H) 70 - 99 mg/dL 08/02/2024 4:06 AM [facility] Sodium 140 136 - 145 mmol/L 08/02/2024 4:06 AM [facility] Potassium 3.1(L) 3.5 - 5.1 mmol/L 08/02/2024 4:06 AM [facility] Chloride 103 98 - 107 mmol/L 08/02/2024 4:06 AM [facility] CO2 28 22 - 29 mmol/L 08/02/2024 4:06 AM [facility] Calcium 5.8(LL) 8.4 - 10.4 mg/dL 08/02/2024 4:06 AM [facility] Anion Gap 9 6 - 16 mmol/L 08/02/2024 4:06 AM [facility] BUN 4(L) 7 - 26 mg/dL 08/02/2024 4:06 AM [facility] Creatinine 0.75 0.57 - 1.11 mg/dL 08/02/2024 4:06 AM [facility] Albumin 2.4(L) 3.4 - 5.0 gm/dL 08/02/2024 4:06 AM [facility] Phosphorus 2.4(L) 2.5 - 4.5 mg/dL 08/02/2024 4:06 AM [facility] eGFR by CKD-EPI 88(L) >=90 mL/min/1.7 3 m2 08/02/2024 4:06 AM [facility] Blood BLOOD SPECIMEN / Unknown Venipuncture / Unknown 08/02/2024 3:19 AM NEON TUBE PUMPER 08/02/2024 3:30 AM [facility] Miguel Angel Mccain MD LAB - CHEMISTRY AIDEN KEVIN [facility] [address] [place] [address] * (ABNORMAL) CALCIUM BLOOD (08/01/2024 3:41 AM [facility]) Calcium 5.4(LL) 8.4 - 10.4 mg/dL 08/01/2024 4:21 AM NEON TUBE PUMPER [facility] Blood BLOOD SPECIMEN / Unknown Venipuncture / Unknown 08/01/2024 3:41 AM [employer] 08/01/2024 3:52 AM [employer] Peewee Esquivel DO LAB - CHEMISTRY ORDKyle KEVIN Performing Organization Address [facility] de Phone Number [facility] [id number] [place] [address] [phone] * (ABNORMAL) HGB HCT PANEL (07/31/2024 7:39 AM [employer]) Only the most recent of4 resultswithin the time period is included. Pathologist [facility] Hemoglobin 8.3(L) 11.9 - 15.8 g/dL 07/31/2024 7:47 AM [employer] [facility] Hematocrit 23.7(L) 34.8 - 46.1 % 07/31/2024 7:47 AM [employer] [facility] Blood BLOOD SPECIMEN / Unknown Venipuncture / Unknown 07/31/2024 7:39 AM [employer] 07/31/2024 7:43 AM [employer] Cruz Whitfield MD LAB - HEMATOLOGY OR DERABLES Performing Organization Address [facility] de Phone Number [facility] [id number] [place] [address] [phone] * TRANSFUSE RED BLOOD CELL LEUKOREDUCED UNIT(S) (07/31/2024 5:59 AM [employer]) Peewee Esquivel DO NURSING - BLOOD PROD TRANSFUSION * PREPARE (CROSSMATCH) RBC UNIT(S), 1 Units (07/31/2024 3:35 AM [employer]) Only the most recent of2 resultswithin the time period is included. Pathologist [facility] Unit Description AS1 LR PRBC [facility] Unit ABO B [facility] Unit Rh POS DP BLOOD [facility]ANK Product Number R02 DP BLOOD BANK Unit Donor # [id number] [facility] BLOOD BANK Unit Status transfused DP BL OOD BANK Product Code [id number] [facility] Blood Type Barcode 7300 [facility] Expiration Date [id number] D [facility] Blood Bank BLOOD SPECIMEN / Unknown 07/28/2024 8:53 PM [employer] Miguel Angel Mccain MD LAB - BLOOD BANK ORD ERABLES Performing Organization Address [facility] Co de Phone Number [facility] [id number] [place], [place] [id number] [phone] * (ABNORMAL) VITAMIN D 25-HYDROXY (07/31/2024 2:15 AM [employer]) Pathologist [facility] Vitamin D, 25 Hydroxy 12.3(L) 30 - 80 ng/mL 07/31/2024 3:23 AM [employer] [facility] Blood BLOOD SPECIMEN / Unknown Venipuncture / Unknown 07/31/2024 2:15 AM [employer] 07/31/2024 2:22 AM [employer]ER Narrative [facility] - 07/31/2024 3:23 AM NEON TUBE PUMPER Vitamin D Status: Deficiency <20 ng/mL Insufficiency 20-30 ng/mL Sufficiency 30-100 ng/mL Toxicity >100 ng/mL Miguel Angel Mccain MD LAB - CHEMISTRY AIDEN KEVIN Performing Organization Address [facility] Co de Phone Number [facility] [address] [place] [address] * (ABNORMAL) FOLATE (07/31/2024 2:15 AM NEON TUBE PUMPER) Pathologist [facility] Folate 5.2(L) 7.0 - 31.4 ng/mL 07/31/2024 3:23 AM NEON TUBE PUMPER [facility] Blood BLOOD SPECIMEN / Unknown Venipuncture / Unknown 07/31/2024 2:15 AM NEON TUBE PUMPER 07/31/2024 2:22 AM NEON TUBE PUMPER Miguel Angel Mccain MD LAB - CHEMISTRY AIDEN KEVIN Performing Organization Address [facility] Co de Phone Number [facility] [address] [place] [address] [phone] * (ABNORMAL) VITAMIN B12 (07/31/2024 2:15 AM NEON TUBE PUMPER) [facility] Vitamin B12 >2,000(H) 213 - 816 pg/mL 07/31/2024 3:27 AM NEON TUBE PUMPER [facility] Blood BLOOD SPECIMEN / Unknown Venipuncture / Unknown 07/31/2024 2:15 AM NEON TUBE PUMPER 07/31/2024 2:22 AM NEON TUBE PUMPER Miguel Angel Mccain MD LAB - CHEMISTRY ORDKyle KEVIN Performing Organization Address [facility] de Phone Number [facility] [id number] [place] [phone] * (ABNORMAL) IRON + TRANSFERRIN PANEL (07/31/2024 2:15 AM NEON TUBE PUMPER) Iron 84 40 - 150 ug/dL 07/31/2024 2:55 AM NEON TUBE PUMPER [facility] Transferrin 123(L) 174 - 382 mg/dL 07/31/2024 2:55 AM NEON TUBE PUMPER [facility] TIBC Calculated 154(L) 240 - 450 ug/dL 07/31/2024 2:55 AM NEON TUBE PUMPER [facility] Iron Saturation % 55(H) 20 - 50 % 07/31/2024 2:55 AM NEON TUBE PUMPER [facility] Blood BLOOD SPECIMEN / Unknown Venipuncture / Unknown 07/31/2024 2:15 AM NEON TUBE PUMPER 07/31/2024 2:22 AM NEON TUBE PUMPER Miguel Angel Mccain MD LAB - CHEMISTRY ORDKyle KEVIN Performing Organization Address [facility] de Phone Number [facility] [id number] [place] [phone] * TRANSFUSE RED BLOOD CELL LEUKOREDUCED UNIT(S) (07/30/2024 7:41 AM NEON TUBE PUMPER) Peewee Esquivel DO NURSING - BLOOD PROD TRANSFUSION * BLOOD TYPE VERIFICATION (07/30/2024 2:06 AM NEON TUBE PUMPER) ABO Rh B POS 07/30/2024 4:2 5 AM NEON TUBE PUMPER [facility] Blood Bank BLOOD SPECIMEN / Unknown Venipuncture / Unknown 07/30/2024 2:06 AM NEON TUBE PUMPER 07/30/2024 3:11 AM NEON TUBE PUMPER Yi Grier MD LAB - BLOOD BANK ORD ERABLES Performing Organization Address [facility] Co de Phone Number [facility] [address] [phone] * (ABNORMAL) PT-INR (07/30/2024 2:06 AM NEON TUBE PUMPER) Only the most recent of2 resultswithin the time period is included. PT 19.8(H) 12.1 - 14.8 sec 07/30/2024 3:12 AM NEON TUBE PUMPER [facility] Comment:This result represen ts a significant difference from this patient's most recent previous value. Clinical correlation is therefore recommended. INR 1.7(H) 0.9 - 1.1 07/30/2024 3:12 AM NEON TUBE PUMPER [facility] Blood BLOOD SPECIMEN / Unknown Venipuncture / Unknown 07/30/2024 2:06 AM NEON TUBE PUMPER 07/30/2024 2:27 AM NEON TUBE PUMPER Narrative [facility] - 07/30/2024 3:12 AM NEON TUBE PUMPER Conventional Warfarin Anticoagulant Therapy: INR Reference Range: 2.0-3.0 Intensive Warfarin Anticoagulant Therapy: INR Reference Range: 2.5-3.5 Yi Grier MD LAB - COAGULATION OR DERABLES Performing Organization Address [facility] Co de Phone Number [facility] [address] [place] [address] * (ABNORMAL) CBC W/O DIFFERENTIAL (07/30/2024 2:06 AM NEON TUBE PUMPER) Only the most recent of3 resultswithin the time period is included. WBC 12.5(H) 4.0 - 10.7 x10E9/L 07/30/2024 2:30 AM NEON TUBE PUMPER [facility] RBC Count 2.06(L) 3.90 - 5.20 x10E12/L 07/30/2024 2:30 AM NEON TUBE PUMPER [facility] Hemoglobin 6.4(L) 11.9 - 15.8 g/dL 07/30/2024 2:30 AM NEON TUBE PUMPER [facility] Hematocrit 18.7(L) 34.8 - 46.1 % 07/30/2024 2:30 AM NEON TUBE PUMPER [facility] MCV 90.8 80.0 - 98.0 fL 07/30/2024 2:30 AM NEON TUBE PUMPER [facility] MCH 31.1 26.7 - 33.6 pg 07/30/2024 2:30 AM [facility] MCHC 34.2 31.7 - 36.3 g/dL 07/30/2024 2:30 AM NEON TUBE PUMPER [facility] RDW-CV 18.1(H) 11.3 - 14.8 % 07/30/2024 2:30 AM NEON TUBE PUMPER [facility] Platelet Count 161 150 - 420 x10E9/L 07/30/2024 2:30 AM [facility] MPV 10.0 7.8 - 11.4 fL 07/30/2024 2:30 AM 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 Hepatic steatosis with a mass right lobe most consistent with focal fatty sparing. Lack of ability to compare to the outside images result in decreased sensitivity. > Interpreting Provider: Kameron Sprague MD on 07/30/2024 10:05 AM Narrative 07/30/2024 10:05 AM NEON TUBE PUMPER PROCEDURE: US ABDOMEN LIMITED, DATE/TIME OF EXAM: 07/29/2024 2:29 PM, LOCATION [facility] INDICATION: K92.1: Melena ADDITIONAL CLINICAL INFORMATION: Ordering [...] DATE/TIME OF EXAM: 07/29/2024 2:29 PM, LOCATION [facility] INDICATION: K92.1: Melena ADDITIONAL CLINICAL INFORMATION: Ordering [...] US ORDERABLES * EGD (07/29/2024 6:57 AM NEON TUBE PUMPER) Report Endoscopy POC _ Patient Name: Sarahy Rodriguez Procedure Date: 07/29/2024 6:57 AM Date of : 1960 Admit Type: Inpatient Age: 64 Gender: Female Attending MD: Cathleen Estrada MD, [id number] _ Procedure: Upper GI endoscopy Indications: Melena [...] GI notes Procedure Code(s): --- Professional --- 64114, Esophagogastroduoden oscopy, flexible, transoral; diagnostic, including collection of specimen(s) by brushing or washing, when performed (separate procedure) --- Technical --- 12014, Esophagogastroduoden oscopy, flexible, transoral; diagnostic, including collection [...] K92.1, Melena (includes Hematochezia) CPT copyright 2020 [employer]. All rights reserved. The codes documented in this report are preliminary and upon senior enlisted advisor review may be revised to meet current compliance requirements. Cathleen Estrada MD 07/29/2024 9:00:40 AM Number of Addenda: 0 Note Initiated On: 07/29/2024 6:57 AM [facility] END[facility] 07/29/2024 6:57 AM NEON TUBE PUMPER Narrative Procedure Note Cathleen Estrada MD - [...] GI PROCEDURE ORDERAB LES [facility] [place] [address] * CULTURE BLOOD (07/28/2024 10:03 PM NEON TUBE PUMPER) Only the most recent of2 resultswithin the time period is included. Culture No growth day 5 LINO 08/03/2024 1:30 AM NEON TUBE PUMPER [facility] MICROBIOLOGY Blood PERIPHERAL BLOOD / Unknown Venipuncture / Unknown 07/28/2024 10:03 PM NEON TUBE PUMPER 07/28/2024 10:07 PM NEON TUBE PUMPER Fabio Santos MD LAB - MICROBIOLOGY O RDERABLES [facility]CRO[facility] [address] [place] [address], [facility] [phone] * TYPE + SCREEN PANEL (07/28/2024 6:52 PM NEON TUBE PUMPER) ABO Rh B POS 07/28/2024 9:52 PM NEON TUBE PUMPER [facility] Comment:No history; collect retype. Antibody Screen NEG 9:52 PM NEON TUBE PUMPER [facility] Blood Bank BLOOD SPECIMEN / Unknown Venipuncture / Unknown 07/28/2024 6:52 PM NEON TUBE PUMPER 07/28/2024 8:53 PM NEON TUBE PUMPER Fabio Santos MD LAB - BLOOD BANK ORD ERABLES Performing Organization Address City/[facility]/ZIP Co de Phone Number [facility] [address] [phone] Care Teams Windsurfing Instructor Relationship Specialty Start Date End Date Priyank Zepeda MD [address] [place] [address] PCP - General 02/23/22
--- OUTSIDE RECORDS SUMMARY | 2024-08-13 19:47 | XMS_ITS | Encounter Summary ---
Author Organization [facility] Address [address] [place] [address] Phone Care Team Providers Care Binder Technician Name Role Phone Priyank Zepeda MD Primary Care Provider [phone] Reason for Visit * Auth/Cert (Routine) Specialty Diagnoses / Procedures Referred By Contac t Referred To Contact Referral ID Status Reason Start Date Expiration Date Visits Re quested Visits Authorized [id number] 1 1 Encounter Details Date Type Department Care Team (Late st Contact Info) Description 08/13/2024 2:30 PM CDT [facility] [address] [place] [address] Eloisa Ruiz, PT PT - OASIS START [...] 08/15/2024 1:00 AM CDT Home Care Visit [address] [address] Viola Richard, FIELD CARE MANAGER [place] 08/16/2024 1:00 AM [facility] [address] [place] [address] Moni Mendoza OT 08/20/2024 1:00 AM CDT Home Care Visit [address] [address] Viola Richard, FIELD CARE MANAGER [place] 08/22/2024 1:00 AM CD[facility] [address] [address] Viola Richard, FIELD CARE MANAGER [place] 08/26/2024 1:00 AM CDT Home Care Visit [address] [address] Viola Richard, FIELD CARE MANAGER [place] 08/28/2024 1:00 AM CDT Home Care Visit [address] [address] Viola Richard, FIELD CARE MANAGER [place] 09/02/2024 1:00 AM CDT Home Care Visit [address] [address] Eloisa Ruiz, PT 09/04/2024 1:00 AM CDT [facility] [address] [address] Viola Richard, FIELD CARE MANAGER [place] documented as of this encounter Visit Diagnoses Not on filedocumented in this encounter Home Health Visit - Actions and Narratives Narratives Pt was admitted to [facility] ER) from 07/28/24-08/07/24 with c/o bloody and black stool. She had an EGD completed which showed non-bleeding ulcers. She was found to be anemic and to have abnormal labs. She received 3 blood transfusions while inpatient. Pt returned home with orders for [facility] PT/OT. She followed up with her PCP yesterday and had labwork done. Pt does report that she had a fall while in [facility] and has a fracture of her lumbar spine. Pt states that she will have an evaluation for a homemaker soon. PMH : CKD, mood disorder, portal hypertension, portal vein thrombosis, Budd Chiari syndrome, gastric bypass, R tibial plateau fracture documented in this encounter Care Teams Binder Technician Relationship Specialty Start Date End Date Priyank Zepeda MD [address] [place] [address] PCP - General Internal Medicine 08/08/24 documented as of this encounter
--- OUTSIDE RECORDS SUMMARY | 2024-08-13 19:47 | XMS_ITS | Referral Summary ---
Author Organization [facility] Address [address] [facility] [place] [address] Care Team Providers Care Vice President Global Advertising Sales Name Role Phone Priyank Zepeda MD Primary Care Provider [phone] Source Comments [facility],non-owned Affiliates and Associated Physician Practices is amultiple site organization consisting of ambulatory clinics and hospital sitesin [place], [place], [place] and [place]. This disclosure is being madepursuant to the Care Everywhere program and may not contain all information available regarding this patient. Last updated 18.[facility] Encounters Date Type Department Care Team Description 07/28/2024 2:19 PM BROACHING MACHINE OPERATOR - 08/07/2024 4:44 PM BROACHING MACHINE OPERATOR Hospital Encounter [facility] 5N Pulmonary Med [address] [place] [address] [phone] Yi Grier MD Fatima, Noor E, MD Zhu, He, MD Kumar, Hanesh, MD Sampath, Roshni, MD Hospitalist Discharge Disposition: Home or Self Care 07/29/2024 8:42 AM BROACHING MACHINE OPERATOR Anesthesia Event [facility] [address] [place] [address] [phone] Bozena Osullivan, Mary Ryan, GAS PLANT OPERATOR-OPERATIONS RESEARCH ANALYST 07/29/2024 8:30 AM BROACHING MACHINE OPERATOR - 07/29/2024 9:00 AM BROACHING MACHINE OPERATOR Surgery [facility] [address] [place] [phone] Cathleen Estrada MD ESOPHAGOGASTRODUODENOSCOPY (EGD) DIAGNOSTIC [...] 5 Active Cholecalciferol (vitamin D3) 1.25 MG (98540 UT) capsule Take 1 (one) capsule by mouth every 7 days 5 capsule 5 Active furosemide (Lasix) 40 MG tablet Take 1 (one) tablet by mouth once daily 30 tablet 5 Active Calcium Carbonate Antacid (calcium carbonate, 500 mg elemental Ca/5 mL,) 1250 MG/5ML suspension Take 10 mL by mouth 3 times daily with meals 473 mL 1 5 Active pancrelipase (Creon 24,000) 55126-14365 units capsule Take 1 (one) capsule by [...] 5 08/08/19 25 Discontinued pancrelipase (Creon 24,000) 29522-00758 units capsule Take 1 (one) capsule by mouth 3 times daily with meals 90 capsule 5 08/08/19 25 Discontinued calcitriol (Rocaltrol) 0.5 MCG capsule Take 2 (two) capsules by mouth 3 times daily 180 capsule 5 08/08/19 25 Discontinued Active Problems Problem Noted Date Diagnosed Date Back pain 08/02/2024 Colitis 07/28/2024 Gastrointestinal hemorrhage with melena 07/28/19 Immunizations Name Administration Dates Next Due COVID JumpCloud 12+YR 30MCG/0.3mL 03/19/2024 INFLUENZA VACCINE, CELL CULT [...] medical care, and heating? Somewhat hard 07/28/2024 [facility] Occupat ional [facility] - Occupational Stress [...] any time in the past 12 m [facility], were you homeless or living in a senior care (including now)? No 07/28/2024 Sex and Gender Information Value Date Recorded Sex Assigned at Not on file Gender Identity Not on file Sexual Orientation Not on file Last Filed Vital Signs Vital Sign Reading Time Taken Comments Blood Pressure 112/78 08/07/2024 2:44 PM BROACHING MACHINE OPERATOR Pulse 93 08/07/2024 2:44 PM BROACHING MACHINE OPERATOR Temperature 37.5 C (99.5 F) 08/07/2024 11:33 AM BROACHING MACHINE OPERATOR Respiratory Rate 18 08/07/2024 11:3 3 AM BROACHING MACHINE OPERATOR Oxygen Saturation 97% 08/07/2024 2:44 PM BROACHING MACHINE OPERATOR Inhaled Oxygen Concentration - - Weight 87.5 kg (192 lb 14.4 oz) 025 12:04 AM BROACHING MACHINE OPERATOR Height 165.1 cm (5' 5 ) 07/28/2024 4:01 PM BROACHING MACHINE OPERATOR Body Mass Index 32.1 07/28/2024 4:01 PM BROACHING MACHINE OPERATOR Functional Status Functional Status Response Date of [...] CARDIAC RHYTHM STRIP ORDER 08/08/2024 11:03 PM BROACHING MACHINE OPERATOR APHERESIS/TRANSFUSIO N ORDER 08/08/2024 11:03 PM BROACHING MACHINE OPERATOR B-TYPE NATRIURETIC PEPTIDE AM Draw 08/07/2024 1:59 AM BROACHING MACHINE OPERATOR COMPREHENSIVE METABOLIC PANEL AM Draw 08/07/2024 1:59 AM BROACHING MACHINE OPERATOR VAS BILATERAL VENOUS DUPLEX LE PENDING DISCHARGE 08/06/2024 2:30 PM BROACHING MACHINE OPERATOR Bilateral leg edema MAGNESIUM BLOOD Routine 08/06/2024 6:07 AM BROACHING MACHINE OPERATOR BASIC METABOLIC PANEL (CALCIUM TOTAL) Routine 08/06/2024 6:07 AM BROACHING MACHINE OPERATOR PHOSPHORUS BLOOD Routine 08/06/2024 6:07 AM BROACHING MACHINE OPERATOR MRI LUMBAR SPINE WO CONTRAST Routine 08/05/2024 9:48 AM BROACHING MACHINE OPERATOR Acute midline low back pain without sciatica PHOSPHORUS BLOOD Routine 08/05/2024 6:53 AM BROACHING MACHINE OPERATOR COMPREHENSIVE METABOLIC PANEL AM Draw 08/05/2024 6:53 AM BROACHING MACHINE OPERATOR MAGNESIUM BLOOD AM Draw 08/05/2024 6:53 AM BROACHING MACHINE OPERATOR CBC W AUTO DIFFERENTIAL AM Draw 08/05/2024 6:53 AM BROACHING MACHINE OPERATOR PROTEIN URINE TIMED QUANTITATIVE Routine 08/04/2024 1:55 PM BROACHING MACHINE OPERATOR URIC ACID URINE TIMED Routine 08/04/2024 1:55 PM BROACHING MACHINE OPERATOR CREATININE CLEARANCE URINE TIMED + BLOOD Routine 08/04/2024 1:55 PM BROACHING MACHINE OPERATOR CALCIUM URINE TIMED Routine 08/04/2024 1 :55 PM BROACHING MACHINE OPERATOR COMPREHENSIVE METABOLIC PANEL AM Draw 08/04/2024 6:55 AM BROACHING MACHINE OPERATOR MAGNESIUM BLOOD AM Draw 08/04/2024 6:55 AM BROACHING MACHINE OPERATOR CBC W AUTO DIFFERENTIAL AM Draw 08/04/2024 6:55 AM BROACHING MACHINE OPERATOR URINALYSIS REFLEX TO MICROSCOPIC NO CULTURE Routine 08/03/2024 12:49 PM BROACHING MACHINE OPERATOR COMPREHENSIVE METABOLIC PANEL AM Draw 08/03/2024 9:26 AM BROACHING MACHINE OPERATOR MAGNESIUM BLOOD AM Draw 08/03/2024 9:26 AM BROACHING MACHINE OPERATOR CBC W AUTO DIFFERENTIAL AM Draw 08/03/2024 9:26 AM BROACHING MACHINE OPERATOR XR LUMBAR SPINE 2 OR 3VW Routine 08/02/2024 2:10 PM BROACHING MACHINE OPERATOR Acute midline low back pain without sciatica PTH INTACT W/O CALCIUM Routine 08/02/2024 3:19 AM BROACHING MACHINE OPERATOR MAGNESIUM BLOOD AM Draw 08/02/2024 3:19 AM BROACHING MACHINE OPERATOR RENAL FUNCTION PANEL AM Draw 08/02/2024 3:19 AM BROACHING MACHINE OPERATOR CBC W AUTO DIFFERENTIAL AM Draw 08/02/2024 3:19 AM BROACHING MACHINE OPERATOR CALCIUM BLOOD STAT 08/01/2024 3:41 AM BROACHING MACHINE OPERATOR MAGNESIUM BLOOD AM Draw 08/01/2024 1:20 AM BROACHING MACHINE OPERATOR RENAL FUNCTION PANEL AM Draw 08/01/2024 1:20 AM BROACHING MACHINE OPERATOR CBC W AUTO DIFFERENTIAL AM Draw 08/01/2024 1:20 AM BROACHING MACHINE OPERATOR HGB HCT PANEL Timed 07/31/2024 7:39 AM BROACHING MACHINE OPERATOR TRANSFUSE RED BLOOD CELL LEUKOREDUCED UNIT(S) Routine 07/31/2024 3:40 AM BROACHING MACHINE OPERATOR PREPARE RBC LEUKOREDUCED UNIT Routine 07/31/2024 3:35 AM BROACHING MACHINE OPERATOR MAGNESIUM BLOOD AM Draw 07/31/2024 2:15 AM BROACHING MACHINE OPERATOR RENAL FUNCTION PANEL AM Draw 07/31/2024 2:15 AM BROACHING MACHINE OPERATOR CBC W AUTO DIFFERENTIAL AM Draw 07/31/2024 2:15 AM BROACHING MACHINE OPERATOR VITAMIN D 25-HYDROXY AM Draw 07/31/2024 2:15 AM BROACHING MACHINE OPERATOR VITAMIN B12 AM Draw 07/31/2024 2:15 AM BROACHING MACHINE OPERATOR FOLATE Routine 07/31/2024 2:15 AM BROACHING MACHINE OPERATOR IRON + TRANSFERRIN PANEL Routine 07/31/2024 2:15 AM BROACHING MACHINE OPERATOR HGB HCT PANEL Timed 07/30/2024 10:03 AM BROACHING MACHINE OPERATOR TRANSFUSE RED BLOOD CELL LEUKOREDUCED UNIT(S) Routine 07/30/2024 5:20 AM BROACHING MACHINE OPERATOR PREPARE RBC LEUKOREDUCED UNIT Routine 07/30/2024 5:15 AM BROACHING MACHINE OPERATOR BLOOD TYPE VERIFICATION Routine 07/30/2024 2:06 AM BROACHING MACHINE OPERATOR CBC W/O DIFFERENTIAL AM Draw 07/30/2024 2:06 AM BROACHING MACHINE OPERATOR PT-INR AM Draw 07/30/2024 2:06 AM BROACHING MACHINE OPERATOR BASIC METABOLIC PANEL (CALCIUM TOTAL) AM Draw 07/30/2024 2:06 AM BROACHING MACHINE OPERATOR HGB HCT PANEL Timed 07/29/2024 9:08 PM BROACHING MACHINE OPERATOR US ABDOMEN LIMITED Routine 07/29/2024 2: 29 PM BROACHING MACHINE OPERATOR Gastrointestinal hemorrhage with melena HGB HCT PANEL Routine 07/29/2024 10:19 AM BROACHING MACHINE OPERATOR PT-INR AM Draw 07/29/2024 10:19 AM BROACHING MACHINE OPERATOR MD ED EGD FLEX TRANSORAL DX 07/29/2024 8:30 AM BROACHING MACHINE OPERATOR EGD Routine 07/29/2024 6:57 AM BROACHING MACHINE OPERATOR CBC W/O DIFFERENTIAL Routine 07/29/2024 6:42 AM BROACHING MACHINE OPERATOR COMPREHENSIVE METABOLIC PANEL Routine 07/29/2024 6:42 AM BROACHING MACHINE OPERATOR MAGNESIUM BLOOD Routine 07/29/2024 6:42 AM BROACHING MACHINE OPERATOR PHOSPHORUS BLOOD Routine 07/29/2024 6:42 AM BROACHING MACHINE OPERATOR CULTURE BLOOD Timed 07/28/2024 10:03 PM BROACHING MACHINE OPERATOR CULTURE BLOOD Timed 07/28/2024 8:16 PM BROACHING MACHINE OPERATOR TYPE + SCREEN PANEL Routine 07/28/2024 6 :52 PM BROACHING MACHINE OPERATOR COMPREHENSIVE METABOLIC PANEL STAT 07/28/2024 5:25 PM BROACHING MACHINE OPERATOR CBC W/O DIFFERENTIAL STAT 07/28/2024 5:25 PM BROACHING MACHINE OPERATOR from Last 3 Months Results * CARDIAC RHYTHM STRIP ORDER (08/08/2024 11:03 PM BROACHING MACHINE OPERATOR) Narrative 08/08/2024 11:03 PM BROACHING MACHINE OPERATOR Ordered by an unspecified provider. Scanned Document CARDIAC SERVICES ORD ERABLES * APHERESIS/TRANSFUSION ORDER (08/08/2024 11:03 PM BROACHING MACHINE OPERATOR) Narrative 08/08/2024 11:03 PM BROACHING MACHINE OPERATOR Ordered by an unspecified provider. Scanned Document NURSING - VITAL SIGN S AND ASSESSMENT * B-TYPE NATRIURETIC PEPTIDE (08/07/2024 1:59 AM BROACHING MACHINE OPERATOR) BNP 35 <=100 pg/mL 08/07/2024 2:52 AM [facility] Blood BLOOD SPECIMEN / Unknown Venipuncture / Unknown 08/07/2024 1:59 AM BROACHING MACHINE OPERATOR 08/07/2024 2:19 AM BROACHING MACHINE OPERATOR Chika Chew MD LAB - CHEMISTRY AIDEN KEVIN [facility] [address] [place] [address] * (ABNORMAL) COMPREHENSIVE METABOLIC PANEL (08/07/2024 1:59 AM BROACHING MACHINE OPERATOR) Only the most recent of6 resultswithin the time period is included. Glucose 97 70 - 99 mg/dL 08/07/2024 2:55 AM [facility] Sodium 136 136 - 145 mmol/L 08/07/2024 2:55 AM [facility] Potassium 3.9 3.5 - 5.1 mmol/L 08/07/2024 2:55 AM [facility] Chloride 104 98 - 107 mmol/L 08/07/2024 2:55 AM [facility] CO2 23 22 - 29 mmol/L 08/07/2024 2:55 AM [facility] Calcium 6.8(L) 8.4 - 10.4 mg/dL 08/07/2024 2:55 AM [facility] Anion Gap 9 6 - 16 mmol/L 08/07/2024 2:55 AM [facility] BUN 9 7 - 26 mg/dL 08/07/2024 2:55 AM [facility] Creatinine 0.95 0.57 - 1.11 mg/dL 08/07/2024 2:55 AM [facility] Alkaline Phosphatase 91 40 - 150 U/L 08/07/2024 2:55 AM [facility] ALT 21 0 - 55 U/L 08/07/2024 2:55 AM [facility] AST 28 5 - 34 U/L 08/07/2024 2:55 AM [facility] Protein Total 4.9(L) 6.4 - 8.3 gm/dL 08/07/2024 2:55 AM BROACHING MACHINE OPERATOR [facility] Albumin 2.1(L) 3.4 - 5.0 gm/dL 08/07/2024 2:55 AM BROACHING MACHINE OPERATOR [facility] Bilirubin Total 0.6 0.2 - 1.2 mg/dL 08/07/2024 2:55 AM BROACHING MACHINE OPERATOR [facility] eGFR by CKD-EPI 66(L) >=90 mL/min/1.7 3 m2 08/07/2024 2:55 AM BROACHING MACHINE OPERATOR [facility] Blood BLOOD SPECIMEN / Unknown Venipuncture / Unknown 08/07/2024 1:59 AM BROACHING MACHINE OPERATOR 08/07/2024 2:19 AM BROACHING MACHINE OPERATOR Chika Chew MD LAB - CHEMISTRY ORDE DORITA [facility] Organization Address City/State/[facility] Co de Phone Number [facility] [address] [place], [place] [phone] * VAS Bilateral Venous Duplex Le (08/06/2024 2:30 PM BROACHING MACHINE OPERATOR) Anatomical Region Laterality Modality Lower Extremity Ultrasound 08/06/2024 1:50 PM BROACHING MACHINE OPERATOR Narrative Procedure Note Jorge Barakat MD - 08/07/2024 [facility] [id number] [place] [phone] Lower Extremity Venous Ultrasound Report Pat.Name: SARAHY RODRIGUEZ Pat.ID: [id number] .Date: 08/06/2024 Exam Time: 1:50:00 PM Study Type:LE Venous Age: 1 1960,64Y Sex: FEMALE Sonogrphr: Binh Eldridge RVT Pat. Stat.:Inpatient Room: 511 ICD - 9: R60.0 CPT - 4: 85336 Reason for Study: Bilateral leg edema History / Clinical: CKD, Liver cirrhosis Procedures: Lower Extremity Venous - Bilateral Race: 1 Visit ID: [id number] ++++++++++++++++++++++++++++++++++++ SUMMARY: ++++++++++++++++++++++++++++++++++++ There is no evidence [...] METABOLIC PANEL (CALCIUM TOTAL) (08/06/2024 6:07 AM BROACHING MACHINE OPERATOR) Only the most recent of2 resultswithin the time period is included. Glucose 87 70 - 99 mg/dL 08/06/2024 8:46 AM [facility] Sodium 137 136 - 145 mmol/L 08/06/2024 8:46 AM [facility] Potassium 3.0(L) 3.5 - 5.1 mmol/L 08/06/2024 8:46 AM [facility] Chloride 103 98 - 107 mmol/L 08/06/2024 8:46 AM [facility] CO2 27 22 - 29 mmol/L 08/06/2024 8:46 AM [facility] Calcium 6.7(L) 8.4 - 10.4 mg/dL 08/06/2024 8:46 AM [facility] Anion Gap 7 6 - 16 mmol/L 08/06/2024 8:46 AM [facility] BUN 7 7 - 26 mg/dL 08/06/2024 8:46 AM [facility] Creatinine 0.81 0.57 - 1.11 mg/dL 08/06/2024 8:46 AM BROACHING MACHINE OPERATOR [facility] eGFR by CKD-EPI 81(L) >=90 mL/min/1.7 3 m2 08/06/2024 8:46 AM BROACHING MACHINE OPERATOR [facility] Blood BLOOD SPECIMEN / Unknown Venipuncture / Unknown 08/06/2024 6:07 AM BROACHING MACHINE OPERATOR 08/06/2024 6:11 AM BROACHING MACHINE OPERATOR Chika Chew MD LAB - CHEMISTRY ORDKyle KEVIN Performing Organization Address [facility] Co de Phone Number [facility] [id number] [place] [phone] * PHOSPHORUS BLOOD (08/06/2024 6:07 AM BROACHING MACHINE OPERATOR) Only the most recent of3 resultswithin the time period is included. Phosphorus 3.7 2.5 - 4.5 mg/dL 08/06/2024 6:27 AM BROACHING MACHINE OPERATOR [facility] Blood BLOOD SPECIMEN / Unknown Venipuncture / Unknown 08/06/2024 6:07 AM BROACHING MACHINE OPERATOR 08/06/2024 6:11 AM BROACHING MACHINE OPERATOR Miguel Angel Mccain MD LAB - CHEMISTRY ORDKyle KEVIN Performing Organization Address [facility] Co de Phone Number [facility] [id number] [place] [address] [phone] * MAGNESIUM BLOOD (08/06/2024 6:07 AM BROACHING MACHINE OPERATOR) Only the most recent of8 resultswithin the time period is included. Magnesium 1.7 1.6 - 2.6 mg/dL 08/06/2024 8:43 AM BROACHING MACHINE OPERATOR [facility] Blood BLOOD SPECIMEN / Unknown Venipuncture / Unknown 08/06/2024 6:07 AM BROACHING MACHINE OPERATOR 08/06/2024 6:11 AM BROACHING MACHINE OPERATOR Chika Chew MD LAB - CHEMISTRY AIDEN KEVIN Performing Organization Address [facility] Co de Phone Number [facility] [id number] [place] [address] [phone] * MRI Lumbar Spine Wo Contrast (08/05/2024 9:48 AM BROACHING MACHINE OPERATOR) Anatomical Region Laterality Modality Spine Magnetic Resonan ce 08/05/2024 9:51 AM BROACHING MACHINE OPERATOR Impressions 08/05/2024 11:53 AM BROACHING MACHINE OPERATOR IMPRESSION: Multilevel degenerative disc and joint disease. Mild foraminal narrowing at L3-L4 and L4-L5 levels. No canal narrowing seen. Minimal superior endplate compression at T12, associated with mild marrow edema, less than 25% loss of vertical height. Edited by Tressa Phillips on 08/05/2024 10:17 AM > Interpreting Provider: Stefani Zepeda MD on 08/05/2024 11:53 AM Narrative 08/05/2024 11:53 AM BROACHING MACHINE OPERATOR PROCEDURE: MRI LUMBAR SPINE WO CONTRAST DATE/TIME [...] CBC W AUTO DIFFERENTIAL (08/05/2024 6:53 AM BROACHING MACHINE OPERATOR) Only the most recent of6 resultswithin the time period is included. WBC 6.8 4.0 - 10.7 x10E9/L 08/05/2024 7:01 AM [facility] RBC Count 2.80(L) 3.90 - 5.20 x10E12/L 08/05/2024 7:01 AM [facility] Hemoglobin 8.6(L) 11.9 - 15.8 g/dL 08/05/2024 7:01 AM [facility] Hematocrit 26.3(L) 34.8 - 46.1 % 08/05/2024 7:01 AM [facility] MCV 93.9 80.0 - 98.0 fL 08/05/2024 7:01 AM [facility] MCH 30.7 26.7 - 33.6 pg 08/05/2024 7:01 AM [facility] MCHC 32.7 31.7 - 36.3 g/dL 08/05/2024 7:01 AM [facility] RDW-CV 17.6(H) 11.3 - 14.8 % 08/05/2024 7:01 AM [facility] Platelet Count 111(L) 150 - 420 x10E9/L 08/05/2024 7:01 AM [facility] MPV 10.1 7.8 - 11.4 fL 08/05/2024 7:01 AM [facility] Neutrophil % 70.0 41.0 - 74.0 % 08/05/2024 7:01 AM [facility] Lymphocyte % 13.8(L) 17.0 - 47.0 % 08/05/2024 7:01 AM [facility] Monocyte % 11.7(H) 3.0 - 11.0 % 08/05/2024 7:01 AM [facility] Eosinophil % 3.7 0.0 - 7.0 % 08/05/2024 7:01 AM [facility] Basophil % 0.4 0.0 - 1.6 % 08/05/2024 7:01 AM [facility] Immature Granulocytes % 0.4 0.0 - 1.0 % 08/05/2024 7:01 AM [facility] Neutrophil Absolute 4.76 1.60 - 7.50 x10E9/L 08/05/2024 7:01 AM [facility] Lymphocyte Absolute 0.94(L) 1.00 - 4.40 x10E9/L 08/05/2024 7:01 AM BROACHING MACHINE OPERATOR [facility] Monocyte Absolute 0.80 0.15 - 1.00 x10E9/L 08/05/2024 7:01 AM BROACHING MACHINE OPERATOR [facility] Eosinophil Absolute 0.25 0.00 - 0.60 x10E9/L 08/05/2024 7:01 AM BROACHING MACHINE OPERATOR [facility] Basophil Absolute 0.03 0.00 - 0.13 x10E9/L 08/05/2024 7:01 AM BROACHING MACHINE OPERATOR [facility] Blood BLOOD SPECIMEN / Unknown Venipuncture / Unknown 08/05/2024 6:53 AM BROACHING MACHINE OPERATOR 08/05/2024 6:57 AM BROACHING MACHINE OPERATOR Miguel Angel Mccain MD LAB - HEMATOLOGY ORD ERABLES [facility] [address] [place] [address] * URIC ACID URINE TIMED (08/04/2024 1:55 PM BROACHING MACHINE OPERATOR) Pathologist [facility] Uric Acid 24 Hour Urine 205.0 142.3 - 713.2 mg/24 hr 08/06/2024 11:10 AM BROACHING MACHINE OPERATOR [facility] ([facility]) Uric Acid Urine 20.5 Not Estab. mg/dL 08/06/2024 11:10 AM BROACHING MACHINE OPERATOR [facility] ([facility]) Urine TIMED URINE SPECIMEN / Unknown Timed Urine Volume Measurement / Unknown 08/04/2024 1:55 PM BROACHING MACHINE OPERATOR 08/04/2024 2:02 PM BROACHING MACHINE OPERATOR Narrative [facility] ([facility]) - 08/06/2024 11:10 AM BROACHING MACHINE OPERATOR Performed at: [address] [id number] Dials Supervisor: El Sood PhD, Phone: [phone] Pete Olmos MD LAB - URINE CHEMISTR Y ORDERABLES Performing Organization Address City/[facility]/ZIP Co de Phone Number [facility] ([facility]) [address] [place] [address] * PROTEIN URINE TIMED QUANTITATIVE (08/04/2024 1:55 PM BROACHING MACHINE OPERATOR) Volume 24 Hour Urine 1,000 mL 08/04/2024 2:25 PM BROACHING MACHINE OPERATOR [facility] Collection Time Hours 24 hrs 08/04/2024 2:25 PM [facility] Protein 24 Hour Urine 72 <300 mg/24hr 08/04/2024 2:25 PM BROACHING MACHINE OPERATOR [facility] Protein Urine 7.2 <11.9 mg/dL 08/04/2024 2:25 PM BROACHING MACHINE OPERATOR [facility] Urine TIMED URINE SPECIMEN / Unknown Timed Urine Volume Measurement / Unknown 08/04/2024 1:55 PM BROACHING MACHINE OPERATOR 08/04/2024 2:02 PM BROACHING MACHINE OPERATOR Pete Olmos MD LAB - URINE CHEMISTR Y ORDERABLES [facility] [address] [place], [place] [id number] * CREATININE CLEARANCE URINE TIMED + BLOOD (08/04/2024 1:55 PM [facility]) Volume 24 Hour Urine 1,000 mL 08/04/2024 2:28 PM [facility] Collection Time Hours 24 hrs 08/04/2024 2:28 PM [facility] Height Inches 65 inches 08/04/2024 2:28 PM [facility] Weight in Pounds 160 pounds 08/04/2024 2:28 PM [facility] Surface Area 1.80 08/04/2024 2:28 PM [facility] Creatinine 0.81 0.57 - 1.11 mg/dL 08/04/2024 2:28 PM [facility] Creatinine Urine 82.74 mg/dL 08/04/2024 2:28 PM [facility] Creatinine 24 Hour Urine 827 710 - 1,650 mg/24hr 08/04/2024 2:28 PM [facility] Creatinine Clearance 68 66 - 165 mL/min/1.73 m2 08/04/2024 2:28 PM [facility] Urine TIMED URINE SPECIMEN / Unknown Timed Urine Volume Measurement / Unknown 08/04/2024 1:55 PM BROACHING MACHINE OPERATOR 08/04/2024 2:02 PM BROACHING MACHINE OPERATOR Pete Olmos MD LAB - URINE CHEMISTR Y ORDERABLES [facility] [address] [place] [address] * (ABNORMAL) CALCIUM URINE TIMED (08/04/2024 1:55 PM BROACHING MACHINE OPERATOR) Calcium Random Urine <2.0 Not Established mg/dL 08/04/2024 7:00 PM [facility] Collection Time Timed Urine 24 Hrs 08/04/2024 7:00 PM [facility] Calcium 24 Hour Urine <20(L) 50 - 300 mg/24 hrs 08/04/2024 7:00 PM [facility] Comment:Unable to calculate excretion rate because the analyte concentration is outside the instrument measuring range. Volume Timed Urine 1,000 mL 08/04/2024 7:00 PM [facility] Urine TIMED URINE SPECIMEN / Unknown Timed Urine Volume Measurement / Unknown 08/04/2024 1:55 PM BROACHING MACHINE OPERATOR 08/04/2024 2:02 PM BROACHING MACHINE OPERATOR Pete Olmos MD LAB - URINE CHEMISTR Y ORDERABLES Performing Organization Address City/[facility]/ZIP Co de Phone Number [id number] [place] [address], [facility] [phone] * (ABNORMAL) URINALYSIS REFLEX TO MICROSCOPIC NO CULTURE (08/03/2024 12:49 PM BROACHING MACHINE OPERATOR) Color UA Yellow Yellow, Straw 08/03/2024 1:30 PM BROACHING MACHINE OPERATOR [facility] Clarity UA Clear Clear 08/03/2024 1:30 PM BROACHING MACHINE OPERATOR [facility] Glucose UA Normal Normal 08/03/2024 1:30 PM BROACHING MACHINE OPERATOR [facility] Bilirubin UA Negative Negative 08/03/2024 1:30 PM BROACHING MACHINE OPERATOR [facility] Ketone UA Negative Negative 08/03/2024 1:30 PM BROACHING MACHINE OPERATOR [facility] Specific Union UA 1.013 1.005 - 1.030 08/03/2024 1:30 PM BROACHING MACHINE OPERATOR [facility] Blood UA Negative Negative 08/03/2024 1:30 PM BROACHING MACHINE OPERATOR [facility] pH UA 7.5 5.0 - 9.0 pH 08/03/2024 1:30 PM BROACHING MACHINE OPERATOR [facility] Protein UA Negative Negative 08/03/2024 1:30 PM BROACHING MACHINE OPERATOR [facility] Urobilinogen UA Normal Normal mg/dL 08/03/2024 1:30 PM BROACHING MACHINE OPERATOR [facility] Nitrite UA Negative Negative 08/03/2024 1:30 PM BROACHING MACHINE OPERATOR [facility] Leukocyte UA 75 JAQUI/uL(A) Negative 08/03/2024 1:30 PM BROACHING MACHINE OPERATOR [facility] RBC UA 0-2 0 - 5 # /hpf 08/03/2024 1:30 PM BROACHING MACHINE OPERATOR [facility] WBC UA 6-10(A) 0 - 5 # /hpf 08/03/2024 1:30 PM BROACHING MACHINE OPERATOR [facility] Bacteria UA Trace(A) None Seen 08/03/2024 1:30 PM BROACHING MACHINE OPERATOR [facility] Squamous Epithelial Cells 0-2 0 - 5 /hpf 08/03/2024 1:30 PM BROACHING MACHINE OPERATOR [facility] Budding Yeast Few(A) None seen /hpf 08/03/2024 1:30 PM BROACHING MACHINE OPERATOR [facility] Urine URINE SPECIMEN OBTAINED BY CLEAN CATCH PROCEDURE / Unknown Collection / Unknown 08/03/2024 12:49 PM BROACHING MACHINE OPERATOR 08/03/2024 12:53 PM BROACHING MACHINE OPERATOR Narrative [facility] HOSPITAL LAB[facility]ATORY - 08/03/2024 1:30 PM BROACHING MACHINE OPERATOR Pete Olmos MD LAB - URINALYSIS ORD ERABLES [facility] [address] [place] [phone] * XR Lumbar Spine 2 or 3Vw (08/02/2024 2:10 PM BROACHING MACHINE OPERATOR) Anatomical Region Laterality Modality Spine Computed Radiogr aphy 08/02/2024 2:26 PM BROACHING MACHINE OPERATOR Narrative 08/02/2024 2:29 PM BROACHING MACHINE OPERATOR EXAM: XR LUMBAR SPINE 2 OR 3VW [...] PTH INTACT W/O CALCIUM (08/02/2024 3:19 AM BROACHING MACHINE OPERATOR) PTH Intact 275.2(H) 8.7 - 77.1 pg/mL 08/02/2024 4:05 AM BROACHING MACHINE OPERATOR [facility] Blood BLOOD SPECIMEN / Unknown Venipuncture / Unknown 08/02/2024 3:19 AM BROACHING MACHINE OPERATOR 08/02/2024 3:30 AM BROACHING MACHINE OPERATOR Miguel Angel Mccain MD [facility] Organization Address City/State/ZIP Co de Phone Number [facility] [address] [place] [address] * (ABNORMAL) RENAL FUNCTION PANEL (08/02/2024 3:19 AM BROACHING MACHINE OPERATOR) Only the most recent of3 resultswithin the time period is included. Glucose 112(H) 70 - 99 mg/dL 08/02/2024 4:06 AM BROACHING MACHINE OPERATOR [facility] Sodium 140 136 - 145 mmol/L 08/02/2024 4:06 AM BROACHING MACHINE OPERATOR [facility] Potassium 3.1(L) 3.5 - 5.1 mmol/L 08/02/2024 4:06 AM BROACHING MACHINE OPERATOR [facility] Chloride 103 98 - 107 mmol/L 08/02/2024 4:06 AM BROACHING MACHINE OPERATOR [facility] CO2 28 22 - 29 mmol/L 08/02/2024 4:06 AM BROACHING MACHINE OPERATOR [facility] Calcium 5.8(LL) 8.4 - 10.4 mg/dL 08/02/2024 4:06 AM [facility] Anion Gap 9 6 - 16 mmol/L 08/02/2024 4:06 AM [facility] BUN 4(L) 7 - 26 mg/dL 08/02/2024 4:06 AM [facility] Creatinine 0.75 0.57 - 1.11 mg/dL 08/02/2024 4:06 AM [facility] Albumin 2.4(L) 3.4 - 5.0 gm/dL 08/02/2024 4:06 AM [facility] Phosphorus 2.4(L) 2.5 - 4.5 mg/dL 08/02/2024 4:06 AM [facility] eGFR by CKD-EPI 88(L) >=90 mL/min/1.7 3 m2 08/02/2024 4:06 AM [facility] Blood BLOOD SPECIMEN / Unknown Venipuncture / Unknown 08/02/2024 3:19 AM BROACHING MACHINE OPERATOR 08/02/2024 3:30 AM BROACHING MACHINE OPERATOR Miguel Angel Mccain MD LAB - CHEMISTRY ORDE DORITA Performing Organization Address City/[facility]/ZIP Co de Phone Number [facility] [address] [place] [address] * (ABNORMAL) CALCIUM BLOOD (08/01/2024 3:41 AM BROACHING MACHINE OPERATOR) [facility] [address] [facility] Calcium 5.4(LL) 8.4 - 10.4 mg/dL 08/01/2024 4:21 AM BROACHING MACHINE OPERATOR [facility] Blood BLOOD SPECIMEN / Unknown Venipuncture / Unknown 08/01/2024 3:41 AM BROACHING MACHINE OPERATOR 08/01/2024 3:52 AM BROACHING MACHINE OPERATOR Peewee Esquivel DO LAB - CHEMISTRY ORDE DORITA Performing Organization Address [facility] Co de Phone Number [facility] [address] [place] [address] * (ABNORMAL) HGB HCT PANEL (07/31/2024 7:39 AM BROACHING MACHINE OPERATOR) Only the most recent of4 resultswithin the time period is included. Pathologist [facility] Hemoglobin 8.3(L) 11.9 - 15.8 g/dL 07/31/2024 7:47 AM BROACHING MACHINE OPERATOR [facility] Hematocrit 23.7(L) 34.8 - 46.1 % 07/31/2024 7:47 AM BROACHING MACHINE OPERATOR [facility] Blood BLOOD SPECIMEN / Unknown Venipuncture / Unknown 07/31/2024 7:39 AM BROACHING MACHINE OPERATOR 07/31/2024 7:43 AM BROACHING MACHINE OPERATOR Cruz Whitfield MD LAB - HEMATOLOGY OR DERABLES Performing Organization Address City/[facility]/ZIP Co de Phone Number [facility] [address] [place] [address] * TRANSFUSE RED BLOOD CELL LEUKOREDUCED UNIT(S) (07/31/2024 5:59 AM BROACHING MACHINE OPERATOR) Peewee Esquivel DO NURSING - BLOOD PROD TRANSFUSION * PREPARE (CROSSMATCH) RBC UNIT(S), 1 Units (07/31/2024 3:35 AM BROACHING MACHINE OPERATOR) Only the most recent of2 resultswithin the time period is included. [facility] [address] [facility] Unit Description AS1 LR PRBC [facility] Unit ABO B [facility] Unit Rh POS [facility] Product Number R02 [facility] Unit Donor # [id number] [facility] Unit Status transfused [facility] Product Code [id number] [facility] Blood Type Barcode 7300 [facility] Expiration Date [id number] D [facility] Blood Bank BLOOD SPECIMEN / Unknown 07/28/2024 8:53 PM BROACHING MACHINE OPERATOR Miguel Angel Mccain MD LAB - BLOOD BANK ORD ERABLES Performing Organization Address City/[facility]/ZIP Co de Phone Number [facility] [id number] [place] [address], [facility] [phone] * (ABNORMAL) VITAMIN D 25-HYDROXY (07/31/2024 2:15 AM BROACHING MACHINE OPERATOR) [facility] [address] [facility] Vitamin D, 25 Hydroxy 12.3(L) 30 - 80 ng/mL 07/31/2024 3:23 AM BROACHING MACHINE OPERATOR [facility] Blood BLOOD SPECIMEN / Unknown Venipuncture / Unknown 07/31/2024 2:15 AM BROACHING MACHINE OPERATOR 07/31/2024 2:22 AM BROACHING MACHINE OPERATOR Narrative [facility] - 07/31/2024 3:23 AM BROACHING MACHINE OPERATOR Vitamin D Status: Deficiency <20 ng/mL Insufficiency 20-30 ng/mL Sufficiency 30-100 ng/mL Toxicity >100 ng/mL Miguel Angel Mccain MD LAB - CHEMISTRY AIDEN KEVIN Performing Organization Address City/[facility]/ZIP Co de Phone Number [facility] [id number] [place] [phone] * (ABNORMAL) FOLATE (07/31/2024 2:15 AM BROACHING MACHINE OPERATOR) Pathologist [facility] Folate 5.2(L) 7.0 - 31.4 ng/mL 07/31/2024 3:23 AM BROACHING MACHINE OPERATOR [facility] Blood BLOOD SPECIMEN / Unknown Venipuncture / Unknown 07/31/2024 2:15 AM BROACHING MACHINE OPERATOR 07/31/2024 2:22 AM BROACHING MACHINE OPERATOR Miguel Angel Mccain MD LAB - CHEMISTRY AIDEN KEVIN Performing Organization Address [facility] de Phone Number [facility] [id number] [place] [address] * (ABNORMAL) VITAMIN B12 (07/31/2024 2:15 AM BROACHING MACHINE OPERATOR) Pathologist [facility] Vitamin B12 >2,000(H) 213 - 816 pg/mL 07/31/2024 3:27 AM BROACHING MACHINE OPERATOR [facility] Blood BLOOD SPECIMEN / Unknown Venipuncture / Unknown 07/31/2024 2:15 AM BROACHING MACHINE OPERATOR 07/31/2024 2:22 AM BROACHING MACHINE OPERATOR Miguel Angel Mccain MD LAB - CHEMISTRY AIDEN KEVIN Performing Organization Address [facility] de Phone Number [facility] [id number] [place] [phone] * (ABNORMAL) IRON + TRANSFERRIN PANEL (07/31/2024 2:15 AM BROACHING MACHINE OPERATOR) Pathologist [facility] Iron 84 40 - 150 ug/dL 07/31/2024 2:55 AM BROACHING MACHINE OPERATOR [facility] Transferrin 123(L) 174 - 382 mg/dL 07/31/2024 2:55 AM BROACHING MACHINE OPERATOR [facility] TIBC Calculated 154(L) 240 - 450 ug/dL 07/31/2024 2:55 AM BROACHING MACHINE OPERATOR [facility] Iron Saturation % 55(H) 20 - 50 % 07/31/2024 2:55 AM BROACHING MACHINE OPERATOR [facility] Blood BLOOD SPECIMEN / Unknown Venipuncture / Unknown 07/31/2024 2:15 AM BROACHING MACHINE OPERATOR 07/31/2024 2:22 AM BROACHING MACHINE OPERATOR Miguel Angel Mccain MD LAB - CHEMISTRY AIDEN KEVIN Performing Organization Address [facility] Co de Phone Number [facility] [address] [place] [address] * TRANSFUSE RED BLOOD CELL LEUKOREDUCED UNIT(S) (07/30/2024 7:41 AM BROACHING MACHINE OPERATOR) Peewee Esquivel DO NURSING - BLOOD PROD TRANSFUSION * BLOOD TYPE VERIFICATION (07/30/2024 2:06 AM BROACHING MACHINE OPERATOR) Pathologist [facility] ABO Rh B POS 07/30/2024 4:2 5 AM BROACHING MACHINE OPERATOR [facility] Blood Bank BLOOD SPECIMEN / Unknown Venipuncture / Unknown 07/30/2024 2:06 AM BROACHING MACHINE OPERATOR 07/30/2024 3:11 AM BROACHING MACHINE OPERATOR Yi Grier MD LAB - BLOOD BANK JUJU WASSERMAN Performing Organization Address [facility] Co de Phone Number [facility] [address] [place], [place] [phone], [facility] [phone] * (ABNORMAL) PT-INR (07/30/2024 2:06 AM BROACHING MACHINE OPERATOR) Only the most recent of2 resultswithin the time period is included. Pathologist [facility] PT 19.8(H) 12.1 - 14.8 sec 07/30/2024 3:12 AM BROACHING MACHINE OPERATOR [facility] Comment:This result represen ts a significant difference from this patient's most recent previous value. Clinical correlation is therefore recommended. INR 1.7(H) 0.9 - 1.1 07/30/2024 3:12 AM [facility] Blood BLOOD SPECIMEN / Unknown Venipuncture / Unknown 07/30/2024 2:06 AM BROACHING MACHINE OPERATOR 07/30/2024 2:27 AM BROACHING MACHINE OPERATOR [facility] LABORATORY - 07/30/2024 3:12 AM BROACHING MACHINE OPERATOR Conventional Warfarin Anticoagulant Therapy: INR Reference Range: 2.0-3.0 Intensive Warfarin Anticoagulant Therapy: INR Reference Range: 2.5-3.5 Yi Grier MD LAB - COAGULATION OR DERABLES [facility] [address] [place] [address] * (ABNORMAL) CBC W/O DIFFERENTIAL (07/30/2024 2:06 AM [facility]) Only the most recent of3 resultswithin the time period is included. WBC 12.5(H) 4.0 - 10.7 x10E9/L 07/30/2024 2:30 AM [facility] RBC Count 2.06(L) 3.90 - 5.20 x10E12/L 07/30/2024 2:30 AM [facility] Hemoglobin 6.4(L) 11.9 - 15.8 g/dL 07/30/2024 2:30 AM [facility] Hematocrit 18.7(L) 34.8 - 46.1 % 07/30/2024 2:30 AM [facility] MCV 90.8 80.0 - 98.0 fL 07/30/2024 2:30 AM [facility] MCH 31.1 26.7 - 33.6 pg 07/30/2024 2:30 AM [facility] MCHC 34.2 31.7 - 36.3 g/dL 07/30/2024 2:30 AM [facility] RDW-CV 18.1(H) 11.3 - 14.8 % 07/30/2024 2:30 AM [facility] Platelet Count 161 150 - 420 x10E9/L 07/30/2024 2:30 AM [facility] MPV 10.0 7.8 - 11.4 fL 07/30/2024 2:30 AM BROACHING MACHINE OPERATOR [facility] Blood BLOOD SPECIMEN / Unknown Venipuncture / Unknown 07/30/2024 2:06 AM BROACHING MACHINE OPERATOR 07/30/2024 2:27 AM BROACHING MACHINE OPERATOR Yi Grier MD LAB - HEMATOLOGY ORD ERABLES [facility] [address] [place] [address] * US ABDOMEN LIMITED (RUQ) (07/29/2024 2:29 PM BROACHING MACHINE OPERATOR) Anatomical Region Laterality Modality Abdomen Ultrasound 07/29/2024 3:34 PM BROACHING MACHINE OPERATOR Impressions 07/30/2024 10:05 AM BROACHING MACHINE OPERATOR IMPRESSION: 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 Hepatic steatosis with a mass right lobe most consistent with focal fatty sparing. Lack of ability to compare to the outside images result in decreased sensitivity. > Interpreting Provider: Kameron Sprague MD on 07/30/2024 10:05 AM Narrative 07/30/2024 10:05 AM BROACHING MACHINE OPERATOR PROCEDURE: US ABDOMEN LIMITED, DATE/TIME OF EXAM: 07/29/2024 2:29 PM, LOCATION [facility] INDICATION: K92.1: Melena ADDITIONAL CLINICAL INFORMATION: [...] DATE/TIME OF EXAM: 07/29/2024 2:29 PM, LOCATION [facility] INDICATION: K92.1: Melena ADDITIONAL CLINICAL INFORMATION: [...] US ORDERABLES * EGD (07/29/2024 6:57 AM BROACHING MACHINE OPERATOR) Report Endoscopy POC _ Patient Name: Sarahy Rodriguez Procedure Date: 07/29/2024 6:57 AM Date of : 1960 Admit Type: Inpatient Age: 64 Gender: Female Attending MD: Cathleen Estrada MD, [id number] _ Procedure: Upper GI endoscopy Indications: Melena [...] GI notes Procedure Code(s): --- Professional --- 38926, Esophagogastroduoden oscopy, flexible, transoral; diagnostic, including collection of specimen(s) by brushing or washing, when performed (separate procedure) --- Technical --- 55810, Esophagogastroduoden oscopy, flexible, transoral; diagnostic, including collection [...] K92.1, Melena (includes Hematochezia) CPT copyright 2020 [employer]. All rights reserved. The codes documented in this report are preliminary and upon group contract analyst review may be revised to meet current compliance requirements. Cathleen Estrada MD 07/29/2024 9:00:40 AM Number of Addenda: 0 Note Initiated On: 07/29/2024 6:57 AM [facility] 07/29/2024 6:57 AM BROACHING MACHINE OPERATOR Narrative Procedure Note Cathleen Estrada MD - [...] Ania Josue MD GI PROCEDURE ORDERAB LES [facility] [place] [address] * CULTURE BLOOD (07/28/2024 10:03 PM BROACHING MACHINE OPERATOR) Only the most recent of2 resultswithin the time period is included. Culture No growth day 5 LINO 08/03/2024 1:30 AM BROACHING MACHINE OPERATOR [facility] MICROBIOLOGY Blood PERIPHERAL BLOOD / Unknown Venipuncture / Unknown 07/28/2024 10:03 PM BROACHING MACHINE OPERATOR 07/28/2024 10:07 PM BROACHING MACHINE OPERATOR Fabio Santos MD LAB - MICROBIOLOGY O RDERABLES [facility] [address] [place] [address], [facility] [phone] * TYPE + SCREEN PANEL (07/28/2024 6:52 PM BROACHING MACHINE OPERATOR) ABO Rh B POS 07/28/2024 9:52 PM BROACHING MACHINE OPERATOR [facility] Comment:No history; collect retype. Antibody Screen NEG 9:52 PM BROACHING MACHINE OPERATOR [facility] Blood Bank BLOOD SPECIMEN / Unknown Venipuncture / Unknown 07/28/2024 6:52 PM BROACHING MACHINE OPERATOR 07/28/2024 8:53 PM BROACHING MACHINE OPERATOR Fabio Santos MD LAB - BLOOD BANK ORD ERABLES [facility] [address] [place] [id number] [phone] from Last 3 Months Advance Directives Documents on File Type Date Recorded Patient Field Worker Expl anation Adv Directive/Living Will/POA 08/08/2024 10:51 PM Adv Directive/Living Will/POA 08/01/2024 8:23 PM Adv Directive/Living Will/POA 07/31/2024 7:48 PM * Full Code (Latest Code Status on File) Date Activated Date Inactivated Comments 07/28/2024 3:11 PM 08/07/2024 5:49 PM Care Teams Vice President Global Advertising Sales Relationship Specialty Start Date End Date Priyank Zepeda MD [address] [place] [phone] PCP - General 02/23/22
--- OUTSIDE RECORDS SUMMARY | 2024-08-13 19:47 | XMS_ITS | Encounter Summary ---
Author Organization [facility] Address [address] [place] [address] Phone Care Team Providers Care Weapons Specialist Name Role Phone Priyank Zepeda MD Primary Care Provider [phone] Encounter Details Date Type Department Care Team (Late st Contact Info) Description 08/13/2024 Plan of Care Documentation [address] [address] Social History Tobacco Use Types Packs/Day Years [...] 08/15/2024 1:00 AM CDT Home Care Visit [address] [address] Viola Richard, TOUR NARRATOR [place] 08/16/2024 1:00 AM CDT Home Care Visit [address] [address] Moni Mendoza OT 08/20/2024 1:00 AM CDT Home Care Visit [address] [address] Viola Richard, TOUR NARRATOR [place] 08/22/2024 1:00 AM CDT Home Care Visit [address] [address] Viola Richard, TOUR NARRATOR [place] 08/26/2024 1:00 AM CDT [facility] [address] [place] [address] Viola Richard, TOUR NARRATOR [place] 08/28/2024 1:00 AM CDT [facility] [address] [place] [address] Viola Richard, TOUR NARRATOR [place] 09/02/2024 1:00 AM CDT [facility] [address] [place] [address] Eloisa Ruiz, PT 09/04/2024 1:00 AM CDT Home Care Visit [address] [address] Viola Richard, TOUR NARRATOR [place] documented as of this encounter Visit Diagnoses Not on filedocumented in this encounter Care Teams Weapons Specialist Relationship Specialty Start Date End Date Priyank Zepeda MD [address] [place] [address] PCP - General Internal Medicine 08/08/24 documented as of this encounter
--- OUTSIDE RECORDS SUMMARY | 2024-08-13 19:47 | XMS_ITS | Clinical Summary ---
Author Organization [facility] Address [address] [address] Phone Care Team Providers Care Superintendent Tests Name Role Phone Priyank Zepeda MD Primary Care Provider Allergies No known active allergies Encounters Date Type Department Care Team Description 08/13/2024 2:30 PM CD[facility] [address] [place] [address] Eloisa Ruiz, PT PT - [place] START OF CARE 08/13/2024 Plan of Care Documentation [facility] [address] [place], [place] [phone] from Last 3 Months Social History Tobacco [...] 08/15/2024 1:00 AM CDT Home Care Visit [address] [address] Viola Richard, LAND SURVEYOR ASSISTANT [place] 08/16/2024 1:00 AM CDT Home Care Visit [address] [address] Moni Mendoza OT 08/20/2024 1:00 AM CDT Home Care Visit [address] [address] Viola Richard, LAND SURVEYOR ASSISTANT [place] 08/22/2024 1:00 AM CDT Home Care Visit [address] [address] Viola Richard, [place] SURVE[place]IST[place] 08/26/2024 1:00 AM CDT Home Care Visit [address] [address] Viola Richard, [place] SURVE[place] 08/28/2024 1:00 AM CDT Home Care Visit [address] [address] Viola Richard, [place] SURVE[place]IST[place] 09/02/2024 1:00 AM CDT Home Care Visit [address] [address] Eloisa Ruiz, PT 09/04/2024 1:00 AM CDT Home Care Visit [address] [address] Viola Richard, LAND SURVEYOR ASSISTANT [place] Health Maintenance Due Date Last Done [...] Insurance MEDICAID [employer] Care Teams Superintendent Tests Relationship Specialty Start Date End Date Priyank Zepeda MD [address] [place] [address] PCP - General Internal Medicine 08/08/24
--- OUTSIDE RECORDS SUMMARY | 2024-08-13 19:48 | XMS_ITS | Clinical Summary ---
Author Organization [facility] [employer] Address [address] [place] [address] Care Team Providers Care Candy Cutter Machine Name Role Phone Priyank Zepeda MD Primary Care Provider [phone] Source Comments [facility],non-owned Affiliates and Associated Physician Practices is amultiple site organization consisting of ambulatory clinics and hospital sitesin [place], [place], [place] and [place]. This disclosure is being madepursuant to the Care Everywhere program and may not contain all information available regarding this patient. Last updated 18.[facility] [employer] Allergies Active Allergy Reactions Criticality Noted Date [...] 5 Active Cholecalciferol (vitamin D3) 1.25 MG (19963 UT) capsule Take 1 (one) capsule by mouth every 7 days 5 capsule 5 Active furosemide (Lasix) 40 MG tablet Take 1 (one) tablet by mouth once daily 30 tablet 5 Active Calcium Carbonate Antacid (calcium carbonate, 500 mg elemental Ca/5 mL,) 1250 MG/5ML suspension Take 10 mL by mouth 3 times daily with meals 473 mL 1 5 Active pancrelipase (Creon 24,000) 59400-34539 units capsule Take 1 (one) capsule by [...] 5 08/08/19 25 Discontinued pancrelipase (Creon 24,000) 42260-43110 units capsule Take 1 (one) capsule by [...] Department Care Team Description 07/29/2024 8:42 AM OBJECT ORIENTED PROGRAMMER Anesthesia Event [facility] [address] [place] [address] Bozena Osullivan DO Boyce, Lisa C, PAMELA-JOCY 07/29/2024 8:30 AM OBJECT ORIENTED PROGRAMMER - 07/29/2024 9:00 AM OBJECT ORIENTED PROGRAMMER Surgery [facility] [address] [place] [address] Cathleen Estrada MD ESOPHAGOGASTRODUODENOSCOPY (EGD) DIAGNOSTIC 07/28/2024 2:19 PM OBJECT ORIENTED PROGRAMMER - 08/07/2024 4:44 PM OBJECT ORIENTED PROGRAMMER Hospital Encounter [facility] [id number] [place] [address] Yi Grier MD Fatima, Noor E, MD [...] medical care, and heating? Somewhat hard 07/28/2024 [place] Pierre Part of Occupat ional Health - Occupational Stress [...] any time in the past 12 [facility], were you homeless or living in a penitentiary (including now)? No 07/28/2024 Sex and Gender Information Value Date Recorded Sex Assigned at Not on file Gender Identity Not on file Sexual Orientation Not on file Last Filed Vital Signs Vital Sign Reading Time Taken Comments Blood Pressure 112/78 08/07/2024 2:44 PM OBJECT ORIENTED PROGRAMMER Pulse 93 08/07/2024 2:44 PM OBJECT ORIENTED PROGRAMMER Temperature 37.5 C (99.5 F) 08/07/2024 11:33 AM OBJECT ORIENTED PROGRAMMER Respiratory Rate 18 08/07/2024 11:3 3 AM OBJECT ORIENTED PROGRAMMER Oxygen Saturation 97% 08/07/2024 2:44 PM OBJECT ORIENTED PROGRAMMER Inhaled Oxygen Concentration - - Weight 87.5 kg (192 lb 14.4 oz) 025 12:04 AM OBJECT ORIENTED PROGRAMMER Height 165.1 cm (5' 5 ) 07/28/2024 4:01 PM OBJECT ORIENTED PROGRAMMER Body Mass Index 32.1 07/28/2024 4:01 PM OBJECT ORIENTED PROGRAMMER Plan of Treatment Health Maintenance Due Date [...] CARDIAC RHYTHM STRIP ORDER 08/08/2024 11:03 PM OBJECT ORIENTED PROGRAMMER APHERESIS/TRANSFUSIO N ORDER 08/08/2024 11:03 PM OBJECT ORIENTED PROGRAMMER B-TYPE NATRIURETIC PEPTIDE AM Draw 08/07/2024 1:59 AM OBJECT ORIENTED PROGRAMMER COMPREHENSIVE METABOLIC PANEL AM Draw 08/07/2024 1:59 AM OBJECT ORIENTED PROGRAMMER VAS BILATERAL VENOUS DUPLEX LE PENDING DISCHARGE 08/06/2024 2:30 PM OBJECT ORIENTED PROGRAMMER Bilateral leg edema MAGNESIUM BLOOD Routine 08/06/2024 6:07 AM OBJECT ORIENTED PROGRAMMER BASIC METABOLIC PANEL (CALCIUM TOTAL) Routine 08/06/2024 6:07 AM OBJECT ORIENTED PROGRAMMER PHOSPHORUS BLOOD Routine 08/06/2024 6:07 AM OBJECT ORIENTED PROGRAMMER MRI LUMBAR SPINE WO CONTRAST Routine 08/05/2024 9:48 AM OBJECT ORIENTED PROGRAMMER Acute midline low back pain without sciatica PHOSPHORUS BLOOD Routine 08/05/2024 6:53 AM OBJECT ORIENTED PROGRAMMER COMPREHENSIVE METABOLIC PANEL AM Draw 08/05/2024 6:53 AM OBJECT ORIENTED PROGRAMMER MAGNESIUM BLOOD AM Draw 08/05/2024 6:53 AM OBJECT ORIENTED PROGRAMMER CBC W AUTO DIFFERENTIAL AM Draw 08/05/2024 6:53 AM OBJECT ORIENTED PROGRAMMER PROTEIN URINE TIMED QUANTITATIVE Routine 08/04/2024 1:55 PM OBJECT ORIENTED PROGRAMMER URIC ACID URINE TIMED Routine 08/04/2024 1:55 PM OBJECT ORIENTED PROGRAMMER CREATININE CLEARANCE URINE TIMED + BLOOD Routine 08/04/2024 1:55 PM OBJECT ORIENTED PROGRAMMER CALCIUM URINE TIMED Routine 08/04/2024 1 :55 PM OBJECT ORIENTED PROGRAMMER COMPREHENSIVE METABOLIC PANEL AM Draw 08/04/2024 6:55 AM OBJECT ORIENTED PROGRAMMER MAGNESIUM BLOOD AM Draw 08/04/2024 6:55 AM OBJECT ORIENTED PROGRAMMER CBC W AUTO DIFFERENTIAL AM Draw 08/04/2024 6:55 AM OBJECT ORIENTED PROGRAMMER URINALYSIS REFLEX TO MICROSCOPIC NO CULTURE Routine 08/03/2024 12:49 PM OBJECT ORIENTED PROGRAMMER COMPREHENSIVE METABOLIC PANEL AM Draw 08/03/2024 9:26 AM OBJECT ORIENTED PROGRAMMER MAGNESIUM BLOOD AM Draw 08/03/2024 9:26 AM OBJECT ORIENTED PROGRAMMER CBC W AUTO DIFFERENTIAL AM Draw 08/03/2024 9:26 AM OBJECT ORIENTED PROGRAMMER XR LUMBAR SPINE 2 OR 3VW Routine 08/02/2024 2:10 PM OBJECT ORIENTED PROGRAMMER Acute midline low back pain without sciatica PTH INTACT W/O CALCIUM Routine 08/02/2024 3:19 AM OBJECT ORIENTED PROGRAMMER MAGNESIUM BLOOD AM Draw 08/02/2024 3:19 AM OBJECT ORIENTED PROGRAMMER RENAL FUNCTION PANEL AM Draw 08/02/2024 3:19 AM OBJECT ORIENTED PROGRAMMER CBC W AUTO DIFFERENTIAL AM Draw 08/02/2024 3:19 AM OBJECT ORIENTED PROGRAMMER CALCIUM BLOOD STAT 08/01/2024 3:41 AM OBJECT ORIENTED PROGRAMMER MAGNESIUM BLOOD AM Draw 08/01/2024 1:20 AM OBJECT ORIENTED PROGRAMMER RENAL FUNCTION PANEL AM Draw 08/01/2024 1:20 AM OBJECT ORIENTED PROGRAMMER CBC W AUTO DIFFERENTIAL AM Draw 08/01/2024 1:20 AM OBJECT ORIENTED PROGRAMMER HGB HCT PANEL Timed 07/31/2024 7:39 AM OBJECT ORIENTED PROGRAMMER TRANSFUSE RED BLOOD CELL LEUKOREDUCED UNIT(S) Routine 07/31/2024 3:40 AM OBJECT ORIENTED PROGRAMMER PREPARE RBC LEUKOREDUCED UNIT Routine 07/31/2024 3:35 AM OBJECT ORIENTED PROGRAMMER MAGNESIUM BLOOD AM Draw 07/31/2024 2:15 AM OBJECT ORIENTED PROGRAMMER RENAL FUNCTION PANEL AM Draw 07/31/2024 2:15 AM OBJECT ORIENTED PROGRAMMER CBC W AUTO DIFFERENTIAL AM Draw 07/31/2024 2:15 AM OBJECT ORIENTED PROGRAMMER VITAMIN D 25-HYDROXY AM Draw 07/31/2024 2:15 AM OBJECT ORIENTED PROGRAMMER VITAMIN B12 AM Draw 07/31/2024 2:15 AM OBJECT ORIENTED PROGRAMMER FOLATE Routine 07/31/2024 2:15 AM OBJECT ORIENTED PROGRAMMER IRON + TRANSFERRIN PANEL Routine 07/31/2024 2:15 AM OBJECT ORIENTED PROGRAMMER HGB HCT PANEL Timed 07/30/2024 10:03 AM OBJECT ORIENTED PROGRAMMER TRANSFUSE RED BLOOD CELL LEUKOREDUCED UNIT(S) Routine 07/30/2024 5:20 AM OBJECT ORIENTED PROGRAMMER PREPARE RBC LEUKOREDUCED UNIT Routine 07/30/2024 5:15 AM OBJECT ORIENTED PROGRAMMER BLOOD TYPE VERIFICATION Routine 07/30/2024 2:06 AM OBJECT ORIENTED PROGRAMMER CBC W/O DIFFERENTIAL AM Draw 07/30/2024 2:06 AM OBJECT ORIENTED PROGRAMMER PT-INR AM Draw 07/30/2024 2:06 AM OBJECT ORIENTED PROGRAMMER BASIC METABOLIC PANEL (CALCIUM TOTAL) AM Draw 07/30/2024 2:06 AM OBJECT ORIENTED PROGRAMMER HGB HCT PANEL Timed 07/29/2024 9:08 PM OBJECT ORIENTED PROGRAMMER US ABDOMEN LIMITED Routine 07/29/2024 2: 29 PM OBJECT ORIENTED PROGRAMMER Gastrointestinal hemorrhage with melena HGB HCT PANEL Routine 07/29/2024 10:19 AM OBJECT ORIENTED PROGRAMMER PT-INR AM Draw 07/29/2024 10:19 AM OBJECT ORIENTED PROGRAMMER VA ED EGD FLEX TRANSORAL DX 07/29/2024 8:30 AM OBJECT ORIENTED PROGRAMMER EGD Routine 07/29/2024 6:57 AM OBJECT ORIENTED PROGRAMMER CBC W/O DIFFERENTIAL Routine 07/29/2024 6:42 AM OBJECT ORIENTED PROGRAMMER COMPREHENSIVE METABOLIC PANEL Routine 07/29/2024 6:42 AM OBJECT ORIENTED PROGRAMMER MAGNESIUM BLOOD Routine 07/29/2024 6:42 AM OBJECT ORIENTED PROGRAMMER PHOSPHORUS BLOOD Routine 07/29/2024 6:42 AM OBJECT ORIENTED PROGRAMMER CULTURE BLOOD Timed 07/28/2024 10:03 PM OBJECT ORIENTED PROGRAMMER CULTURE BLOOD Timed 07/28/2024 8:16 PM OBJECT ORIENTED PROGRAMMER TYPE + SCREEN PANEL Routine 07/28/2024 6 :52 PM OBJECT ORIENTED PROGRAMMER COMPREHENSIVE METABOLIC PANEL STAT 07/28/2024 5:25 PM OBJECT ORIENTED PROGRAMMER CBC W/O DIFFERENTIAL STAT 07/28/2024 5:25 PM OBJECT ORIENTED PROGRAMMER from Last 3 Months Results * CARDIAC RHYTHM STRIP ORDER (08/08/2024 11:03 PM OBJECT ORIENTED PROGRAMMER) Narrative 08/08/2024 11:03 PM OBJECT ORIENTED PROGRAMMER Ordered by an unspecified provider. Scanned Document CARDIAC SERVICES ORD ERABLES * APHERESIS/TRANSFUSION ORDER (08/08/2024 11:03 PM OBJECT ORIENTED PROGRAMMER) Narrative 08/08/2024 11:03 PM OBJECT ORIENTED PROGRAMMER Ordered by an unspecified provider. Scanned Document NURSING - VITAL SIGN S AND ASSESSMENT * B-TYPE NATRIURETIC PEPTIDE (08/07/2024 1:59 AM OBJECT ORIENTED PROGRAMMER) BNP 35 <=100 pg/mL 08/07/2024 2:52 AM OBJECT ORIENTED PROGRAMMER [facility] Blood BLOOD SPECIMEN / Unknown Venipuncture / Unknown 08/07/2024 1:59 AM OBJECT ORIENTED PROGRAMMER 08/07/2024 2:19 AM OBJECT ORIENTED PROGRAMMER Chika Chew MD LAB - CHEMISTRY ORDE DORITA [facility] [address] [place] [address] * (ABNORMAL) COMPREHENSIVE METABOLIC PANEL (08/07/2024 1:59 AM OBJECT ORIENTED PROGRAMMER) Only the most recent of6 resultswithin the time period is included. Glucose 97 70 - 99 mg/dL 08/07/2024 2:55 AM OBJECT ORIENTED PROGRAMMER [facility] Sodium 136 136 - 145 mmol/L 08/07/2024 2:55 AM [facility] Potassium 3.9 3.5 - 5.1 mmol/L 08/07/2024 2:55 AM [facility] Chloride 104 98 - 107 mmol/L 08/07/2024 2:55 AM [facility] CO2 23 22 - 29 mmol/L 08/07/2024 2:55 AM [facility] Calcium 6.8(L) 8.4 - 10.4 mg/dL 08/07/2024 2:55 AM [facility] Anion Gap 9 6 - 16 mmol/L 08/07/2024 2:55 AM [facility] BUN 9 7 - 26 mg/dL 08/07/2024 2:55 AM [facility] Creatinine 0.95 0.57 - 1.11 mg/dL 08/07/2024 2:55 AM [facility] Alkaline Phosphatase 91 40 - 150 U/L 08/07/2024 2:55 AM [facility] ALT 21 0 - 55 U/L 08/07/2024 2:55 AM [facility] AST 28 5 - 34 U/L 08/07/2024 2:55 AM [facility] Protein Total 4.9(L) 6.4 - 8.3 gm/dL 08/07/2024 2:55 AM [facility] Albumin 2.1(L) 3.4 - 5.0 gm/dL 08/07/2024 2:55 AM [facility] Bilirubin Total 0.6 0.2 - 1.2 mg/dL 08/07/2024 2:55 AM [facility] eGFR by CKD-EPI 66(L) >=90 mL/min/1.7 3 m2 08/07/2024 2:55 AM [facility] Blood BLOOD SPECIMEN / Unknown Venipuncture / Unknown 08/07/2024 1:59 AM OBJECT ORIENTED PROGRAMMER 08/07/2024 2:19 AM [facility] Chika Chew MD LAB - CHEMISTRY AIDEN KEVIN [facility] Organization Address City/State/ZIP Co de Phone Number [facility] [address] [place] [address] * VAS Bilateral Venous Duplex Le (08/06/2024 2:30 PM OBJECT ORIENTED PROGRAMMER) Anatomical Region Laterality Modality Lower Extremity Ultrasound 08/06/2024 1:50 PM OBJECT ORIENTED PROGRAMMER Narrative Procedure Note Jorge Barakat MD - 08/07/[address] [address] Lower Extremity Venous Ultrasound Report Pat.Name: SARAHY RODRIGUEZ Pat.ID: [id number] St.Date: 08/06/2024 Exam Time: 1:50:00 PM Study Type:LE Venous Age: 1 1960,64Y Sex: FEMALE Sonogrphr: Binh Eldridge RVT Pat. Stat.:Inpatient Room: [facility] ICD - 9: R60.0 CPT - 4: 28520 Reason for Study: Bilateral leg edema History / Clinical: CKD, Liver cirrhosis Procedures: Lower Extremity Venous - Bilateral Race: 1 Visit ID: [id number] ++++++++++++++++++++++++++++++++++++ SUMMARY: ++++++++++++++++++++++++++++++++++++ There is no evidence [...] METABOLIC PANEL (CALCIUM TOTAL) (08/06/2024 6:07 AM OBJECT ORIENTED PROGRAMMER) Only the most recent of2 resultswithin the time period is included. Glucose 87 70 - 99 mg/dL 08/06/2024 8:46 AM [facility] Sodium 137 136 - 145 mmol/L 08/06/2024 8:46 AM [facility] Potassium 3.0(L) 3.5 - 5.1 mmol/L 08/06/2024 8:46 AM [facility] Chloride 103 98 - 107 mmol/L 08/06/2024 8:46 AM [facility] CO2 27 22 - 29 mmol/L 08/06/2024 8:46 AM [facility] Calcium 6.7(L) 8.4 - 10.4 mg/dL 08/06/2024 8:46 AM [facility] Anion Gap 7 6 - 16 mmol/L 08/06/2024 8:46 AM [facility] BUN 7 7 - 26 mg/dL 08/06/2024 8:46 AM [facility] Creatinine 0.81 0.57 - 1.11 mg/dL 08/06/2024 8:46 AM [facility] eGFR by CKD-EPI 81(L) >=90 mL/min/1.7 3 m2 08/06/2024 8:46 AM [facility] Blood BLOOD SPECIMEN / Unknown Venipuncture / Unknown 08/06/2024 6:07 AM OBJECT ORIENTED PROGRAMMER 08/06/2024 6:11 AM [facility] Chika Chew MD LAB - CHEMISTRY AIDEN KEVIN [facility] Organization Address City/State/ZIP Co de Phone Number [facility] [address] [place] [address] * PHOSPHORUS BLOOD (08/06/2024 6:07 AM OBJECT ORIENTED PROGRAMMER) Only the most recent of3 resultswithin the time period is included. Phosphorus 3.7 2.5 - 4.5 mg/dL 08/06/2024 6:27 AM OBJECT ORIENTED PROGRAMMER [facility] Blood BLOOD SPECIMEN / Unknown Venipuncture / Unknown 08/06/2024 6:07 AM OBJECT ORIENTED PROGRAMMER 08/06/2024 6:11 AM OBJECT ORIENTED PROGRAMMER Miguel Angel Mccain MD LAB - CHEMISTRY ORDKyle KEVIN Performing Organization Address [facility] de Phone Number [facility] [address] [place] [address] * MAGNESIUM BLOOD (08/06/2024 6:07 AM OBJECT ORIENTED PROGRAMMER) Only the most recent of8 resultswithin the time period is included. Magnesium 1.7 1.6 - 2.6 mg/dL 08/06/2024 8:43 AM OBJECT ORIENTED PROGRAMMER [facility] Blood BLOOD SPECIMEN / Unknown Venipuncture / Unknown 08/06/2024 6:07 AM OBJECT ORIENTED PROGRAMMER 08/06/2024 6:11 AM OBJECT ORIENTED PROGRAMMER Chika Chew MD LAB - CHEMISTRY AIDEN KEVIN Performing Organization Address [facility] de Phone Number [facility] [address] [place] [address] * MRI Lumbar Spine Wo Contrast (08/05/2024 9:48 AM OBJECT ORIENTED PROGRAMMER) Anatomical Region Laterality Modality Spine Magnetic Resonan ce 08/05/2024 9:51 AM OBJECT ORIENTED PROGRAMMER Impressions 08/05/2024 11:53 AM OBJECT ORIENTED PROGRAMMER IMPRESSION: Multilevel degenerative disc and joint disease. Mild foraminal narrowing at L3-L4 and L4-L5 levels. No canal narrowing seen. Minimal superior endplate compression at T12, associated with mild marrow edema, less than 25% loss of vertical height. Edited by Tressa Phillips on 08/05/2024 10:17 AM > Interpreting Provider: Stefani Zepeda MD on 08/05/2024 11:53 AM Narrative 08/05/2024 11:53 AM OBJECT ORIENTED PROGRAMMER PROCEDURE: MRI LUMBAR SPINE WO CONTRAST DATE/TIME [...] CBC W AUTO DIFFERENTIAL (08/05/2024 6:53 AM OBJECT ORIENTED PROGRAMMER) Only the most recent of6 resultswithin the time period is included. WBC 6.8 4.0 - 10.7 x10E9/L 08/05/2024 7:01 AM OBJECT ORIENTED PROGRAMMER [facility] RBC Count 2.80(L) 3.90 - 5.20 x10E12/L 08/05/2024 7:01 AM OBJECT ORIENTED PROGRAMMER [facility] Hemoglobin 8.6(L) 11.9 - 15.8 g/dL 08/05/2024 7:01 AM OBJECT ORIENTED PROGRAMMER [facility] Hematocrit 26.3(L) 34.8 - 46.1 % 08/05/2024 7:01 AM OBJECT ORIENTED PROGRAMMER [facility] MCV 93.9 80.0 - 98.0 fL 08/05/2024 7:01 AM OBJECT ORIENTED PROGRAMMER [facility] MCH 30.7 26.7 - 33.6 pg 08/05/2024 7:01 AM OBJECT ORIENTED PROGRAMMER [facility] MCHC 32.7 31.7 - 36.3 g/dL 08/05/2024 7:01 AM OBJECT ORIENTED PROGRAMMER [facility] RDW-CV 17.6(H) 11.3 - 14.8 % 08/05/2024 7:01 AM [facility] Platelet Count 111(L) 150 - 420 x10E9/L 08/05/2024 7:01 AM [facility] MPV 10.1 7.8 - 11.4 fL 08/05/2024 7:01 AM [facility] Neutrophil % 70.0 41.0 - 74.0 % 08/05/2024 7:01 AM [facility] Lymphocyte % 13.8(L) 17.0 - 47.0 % 08/05/2024 7:01 AM [facility] Monocyte % 11.7(H) 3.0 - 11.0 % 08/05/2024 7:01 AM [facility] Eosinophil % 3.7 0.0 - 7.0 % 08/05/2024 7:01 AM [facility] Basophil % 0.4 0.0 - 1.6 % 08/05/2024 7:01 AM [facility] Immature Granulocytes % 0.4 0.0 - 1.0 % 08/05/2024 7:01 AM [facility] Neutrophil Absolute 4.76 1.60 - 7.50 x10E9/L 08/05/2024 7:01 AM [facility] Lymphocyte Absolute 0.94(L) 1.00 - 4.40 x10E9/L 08/05/2024 7:01 AM [facility] Monocyte Absolute 0.80 0.15 - 1.00 x10E9/L 08/05/2024 7:01 AM [facility] Eosinophil Absolute 0.25 0.00 - 0.60 x10E9/L 08/05/2024 7:01 AM [facility] Basophil Absolute 0.03 0.00 - 0.13 x10E9/L 08/05/2024 7:01 AM [facility] Blood BLOOD SPECIMEN / Unknown Venipuncture / Unknown 08/05/2024 6:53 AM OBJECT ORIENTED PROGRAMMER 08/05/2024 6:57 AM [facility] Miguel Angel Mccain MD LAB - HEMATOLOGY ORD ERABLES [facility] [address] [place] [address] * URIC ACID URINE TIMED (08/04/2024 1:55 PM OBJECT ORIENTED PROGRAMMER) Uric Acid 24 Hour Urine 205.0 142.3 - 713.2 mg/24 hr 08/06/2024 11:10 AM [facility] ([facility]) Uric Acid Urine 20.5 Not Estab. mg/dL 08/06/2024 11:10 AM [facility] ([facility]) Urine TIMED URINE SPECIMEN / Unknown Timed Urine Volume Measurement / Unknown 08/04/2024 1:55 PM OBJECT ORIENTED PROGRAMMER 08/04/2024 2:02 PM OBJECT ORIENTED PROGRAMMER Narrative [facility] ([facility]) - 08/06/2024 11:10 AM OBJECT ORIENTED PROGRAMMER Performed at: - [address] [id number] High Pressure Cleaner: El oSod PhD, Phone: [phone] Pete Olmos MD LAB - URINE CHEMISTR Y ORDERABLES Performing Organization Address City/[facility] Co de Phone Number [facility] ([facility]) [address] [place] [address] * PROTEIN URINE TIMED QUANTITATIVE (08/04/2024 1:55 PM OBJECT ORIENTED PROGRAMMER) Volume 24 Hour Urine 1,000 mL 08/04/2024 2:25 PM OBJECT ORIENTED PROGRAMMER [facility] Collection Time Hours 24 hrs 08/04/2024 2:25 PM OBJECT ORIENTED PROGRAMMER [facility] Protein 24 Hour Urine 72 <300 mg/24hr 08/04/2024 2:25 PM OBJECT ORIENTED PROGRAMMER [facility] Protein Urine 7.2 <11.9 mg/dL 08/04/2024 2:25 PM OBJECT ORIENTED PROGRAMMER [facility] Urine TIMED URINE SPECIMEN / Unknown Timed Urine Volume Measurement / Unknown 08/04/2024 1:55 PM OBJECT ORIENTED PROGRAMMER 08/04/2024 2:02 PM OBJECT ORIENTED PROGRAMMER Pete Olmos MD LAB - URINE CHEMISTR Y ORDERABLES [facility] [address] [place] [id number] * CREATININE CLEARANCE URINE TIMED + BLOOD (08/04/2024 1:55 PM OBJECT ORIENTED PROGRAMMER) Volume 24 Hour Urine 1,000 mL 08/04/2024 2:28 PM [facility] Collection Time Hours 24 hrs 08/04/2024 2:28 PM [facility] Height Inches 65 inches 08/04/2024 2:28 PM [facility] Weight in Pounds 160 pounds 08/04/2024 2:28 PM [facility] Surface Area 1.80 08/04/2024 2:28 PM [facility] Creatinine 0.81 0.57 - 1.11 mg/dL 08/04/2024 2:28 PM [facility] Creatinine Urine 82.74 mg/dL 08/04/2024 2:28 PM [facility] Creatinine 24 Hour Urine 827 710 - 1,650 mg/24hr 08/04/2024 2:28 PM [facility] Creatinine Clearance 68 66 - 165 mL/min/1.73 m2 08/04/2024 2:28 PM [facility] Urine TIMED URINE SPECIMEN / Unknown Timed Urine Volume Measurement / Unknown 08/04/2024 1:55 PM OBJECT ORIENTED PROGRAMMER 08/04/2024 2:02 PM [facility] Pete Olmos MD LAB - URINE CHEMISTR Y ORDERABLES [facility] [address] [place] [address] * (ABNORMAL) CALCIUM URINE TIMED (08/04/2024 1:55 PM [facility]) Calcium Random Urine <2.0 Not Established mg/dL 08/04/2024 7:00 PM [facility] Collection Time Timed Urine 24 Hrs 08/04/2024 7:00 PM [facility] Calcium 24 Hour Urine <20(L) 50 - 300 mg/24 hrs 08/04/2024 7:00 PM [facility] Comment:Unable to calculate excretion rate because the analyte concentration is outside the instrument measuring range. Volume Timed Urine 1,000 mL 08/04/2024 7:00 PM [facility] Urine TIMED URINE SPECIMEN / Unknown Timed Urine Volume Measurement / Unknown 08/04/2024 1:55 PM OBJECT ORIENTED PROGRAMMER 08/04/2024 2:02 PM OBJECT ORIENTED PROGRAMMER Pete Olmos MD LAB - URINE CHEMISTR Y ORDERABLES [facility] [address] [place] [address], [place] [phone] * (ABNORMAL) URINALYSIS REFLEX TO MICROSCOPIC NO CULTURE (08/03/2024 12:49 PM OBJECT ORIENTED PROGRAMMER) Color UA Yellow Yellow, Straw 08/03/2024 1:30 PM OBJECT ORIENTED PROGRAMMER [facility] Clarity UA Clear Clear 08/03/2024 1:30 PM OBJECT ORIENTED PROGRAMMER [facility] Glucose UA Normal Normal 08/03/2024 1:30 PM OBJECT ORIENTED PROGRAMMER [facility] Bilirubin UA Negative Negative 08/03/2024 1:30 PM OBJECT ORIENTED PROGRAMMER [facility] Ketone UA Negative Negative 08/03/2024 1:30 PM OBJECT ORIENTED PROGRAMMER [facility] Specific [place] UA 1.013 1.005 - 1.030 08/03/2024 1:30 PM OBJECT ORIENTED PROGRAMMER [facility] Blood UA Negative Negative 08/03/2024 1:30 PM OBJECT ORIENTED PROGRAMMER [facility] pH UA 7.5 5.0 - 9.0 pH 08/03/2024 1:30 PM OBJECT ORIENTED PROGRAMMER [facility] Protein UA Negative Negative 08/03/2024 1:30 PM OBJECT ORIENTED PROGRAMMER [facility] Urobilinogen UA Normal Normal mg/dL 08/03/2024 1:30 PM OBJECT ORIENTED PROGRAMMER [facility] Nitrite UA Negative Negative 08/03/2024 1:30 PM OBJECT ORIENTED PROGRAMMER [facility] Leukocyte UA 75 JAQUI/uL(A) Negative 08/03/2024 1:30 PM OBJECT ORIENTED PROGRAMMER [facility] RBC UA 0-2 0 - 5 # /hpf 08/03/2024 1:30 PM OBJECT ORIENTED PROGRAMMER [facility] WBC UA 6-10(A) 0 - 5 # /hpf 08/03/2024 1:30 PM OBJECT ORIENTED PROGRAMMER [facility] Bacteria UA Trace(A) None Seen 08/03/2024 1:30 PM OBJECT ORIENTED PROGRAMMER [facility] Squamous Epithelial Cells 0-2 0 - 5 /hpf 08/03/2024 1:30 PM OBJECT ORIENTED PROGRAMMER [facility] Budding Yeast Few(A) None seen /hpf 08/03/2024 1:30 PM OBJECT ORIENTED PROGRAMMER [facility] Urine URINE SPECIMEN OBTAINED BY CLEAN CATCH PROCEDURE / Unknown Collection / Unknown 08/03/2024 12:49 PM OBJECT ORIENTED PROGRAMMER 08/03/2024 12:53 PM OBJECT ORIENTED PROGRAMMER Narrative [facility] - 08/03/2024 1:30 PM OBJECT ORIENTED PROGRAMMER Pete Olmos MD LAB - URINALYSIS ORD ERABLES [facility] [id number] [place] [address] * XR Lumbar Spine 2 or 3Vw (08/02/2024 2:10 PM OBJECT ORIENTED PROGRAMMER) Anatomical Region Laterality Modality Spine Computed Radiogr aphy 08/02/2024 2:26 PM OBJECT ORIENTED PROGRAMMER Narrative 08/02/2024 2:29 PM OBJECT ORIENTED PROGRAMMER EXAM: XR LUMBAR SPINE 2 OR 3VW [...] PTH INTACT W/O CALCIUM (08/02/2024 3:19 AM OBJECT ORIENTED PROGRAMMER) PTH Intact 275.2(H) 8.7 - 77.1 pg/mL 08/02/2024 4:05 AM [facility] Blood BLOOD SPECIMEN / Unknown Venipuncture / Unknown 08/02/2024 3:19 AM OBJECT ORIENTED PROGRAMMER 08/02/2024 3:30 AM [facility] Miguel Angel Mccain MD LAB - CHEMISTRY AIDEN KEVIN [facility] Organization Address City/State/ZIP Co de Phone Number [facility] [address] [place] [address] * (ABNORMAL) RENAL FUNCTION PANEL (08/02/2024 3:19 AM OBJECT ORIENTED PROGRAMMER) Only the most recent of3 resultswithin the time period is included. Glucose 112(H) 70 - 99 mg/dL 08/02/2024 4:06 AM [facility] Sodium 140 136 - 145 mmol/L 08/02/2024 4:06 AM [facility] Potassium 3.1(L) 3.5 - 5.1 mmol/L 08/02/2024 4:06 AM [facility] Chloride 103 98 - 107 mmol/L 08/02/2024 4:06 AM [facility] CO2 28 22 - 29 mmol/L 08/02/2024 4:06 AM [facility] Calcium 5.8(LL) 8.4 - 10.4 mg/dL 08/02/2024 4:06 AM [facility] Anion Gap 9 6 - 16 mmol/L 08/02/2024 4:06 AM [facility] BUN 4(L) 7 - 26 mg/dL 08/02/2024 4:06 AM [facility] Creatinine 0.75 0.57 - 1.11 mg/dL 08/02/2024 4:06 AM [facility] Albumin 2.4(L) 3.4 - 5.0 gm/dL 08/02/2024 4:06 AM [facility] Phosphorus 2.4(L) 2.5 - 4.5 mg/dL 08/02/2024 4:06 AM [facility] eGFR by CKD-EPI 88(L) >=90 mL/min/1.7 3 m2 08/02/2024 4:06 AM [facility] Blood BLOOD SPECIMEN / Unknown Venipuncture / Unknown 08/02/2024 3:19 AM OBJECT ORIENTED PROGRAMMER 08/02/2024 3:30 AM OBJECT ORIENTED PROGRAMMER Miguel Angel Mccain MD LAB - CHEMISTRY AIDEN KEVIN Performing Organization Address [facility] de Phone Number [facility] [address] [place] [address] * (ABNORMAL) CALCIUM BLOOD (08/01/2024 3:41 AM OBJECT ORIENTED PROGRAMMER) Calcium 5.4(LL) 8.4 - 10.4 mg/dL 08/01/2024 4:21 AM OBJECT ORIENTED PROGRAMMER [facility] Blood BLOOD SPECIMEN / Unknown Venipuncture / Unknown 08/01/2024 3:41 AM OBJECT ORIENTED PROGRAMMER 08/01/2024 3:52 AM OBJECT ORIENTED PROGRAMMER Peewee Esquivel DO LAB - CHEMISTRY AIDEN KEVIN Performing Organization Address [facility] de Phone Number [facility] [address] [place] [address] * (ABNORMAL) HGB HCT PANEL (07/31/2024 7:39 AM OBJECT ORIENTED PROGRAMMER) Only the most recent of4 resultswithin the time period is included. Hemoglobin 8.3(L) 11.9 - 15.8 g/dL 07/31/2024 7:47 AM OBJECT ORIENTED PROGRAMMER [facility] Hematocrit 23.7(L) 34.8 - 46.1 % 07/31/2024 7:47 AM OBJECT ORIENTED PROGRAMMER [facility] Blood BLOOD SPECIMEN / Unknown Venipuncture / Unknown 07/31/2024 7:39 AM OBJECT ORIENTED PROGRAMMER 07/31/2024 7:43 AM OBJECT ORIENTED PROGRAMMER Cruz Whitfield MD LAB - HEMATOLOGY OR DERABLES Performing Organization Address [facility] de Phone Number [facility] [address] [place] [phone] * TRANSFUSE RED BLOOD CELL LEUKOREDUCED UNIT(S) (07/31/2024 5:59 AM OBJECT ORIENTED PROGRAMMER) Peewee Esquivel DO NURSING - BLOOD PROD TRANSFUSION * PREPARE (CROSSMATCH) RBC UNIT(S), 1 Units (07/31/2024 3:35 AM OBJECT ORIENTED PROGRAMMER) Only the most recent of2 resultswithin the time period is included. Pathologist [facility] Unit Description AS1 LR PRBC [facility] Unit ABO B [facility] Unit Rh POS [facility] Product Number R02 [facility] Unit Donor # [id number] [facility] Unit Status transfused DP BL OOD BANK Product Code [id number] [facility] Blood Type Barcode 7300 [facility] Expiration Date [id number] D [facility] Blood Bank BLOOD SPECIMEN / Unknown 07/28/2024 8:53 PM OBJECT ORIENTED PROGRAMMER Miguel Angel Mccain MD LAB - BLOOD BANK ORD ERABLES Performing Organization Address City/[facility]/ZIP Co de Phone Number [facility] [address] [place], [place] [address] [phone] * (ABNORMAL) VITAMIN D 25-HYDROXY (07/31/2024 2:15 AM OBJECT ORIENTED PROGRAMMER) Pathologist [facility] Vitamin D, 25 Hydroxy 12.3(L) 30 - 80 ng/mL 07/31/2024 3:23 AM OBJECT ORIENTED PROGRAMMER [facility] Blood BLOOD SPECIMEN / Unknown Venipuncture / Unknown 07/31/2024 2:15 AM OBJECT ORIENTED PROGRAMMER 07/31/2024 2:22 AM OBJECT ORIENTED PROGRAMMER Narrative [facility] - 07/31/2024 3:23 AM OBJECT ORIENTED PROGRAMMER Vitamin D Status: Deficiency <20 ng/mL Insufficiency 20-30 ng/mL Sufficiency 30-100 ng/mL Toxicity >100 ng/mL Miguel Angel Mccain MD LAB - CHEMISTRY ORDE DORITA [facility] [id number] [place] [address] * (ABNORMAL) FOLATE (07/31/2024 2:15 AM OBJECT ORIENTED PROGRAMMER) Pathologist [facility] Folate 5.2(L) 7.0 - 31.4 ng/mL 07/31/2024 3:23 AM OBJECT ORIENTED PROGRAMMER [facility] Blood BLOOD SPECIMEN / Unknown Venipuncture / Unknown 07/31/2024 2:15 AM OBJECT ORIENTED PROGRAMMER 07/31/2024 2:22 AM OBJECT ORIENTED PROGRAMMER Miguel Angel Mccain MD LAB - CHEMISTRY AIDEN KEVIN Performing Organization Address [facility] Co de Phone Number [facility] [id number] [place] [address] * (ABNORMAL) VITAMIN B12 (07/31/2024 2:15 AM OBJECT ORIENTED PROGRAMMER) Vitamin B12 >2,000(H) 213 - 816 pg/mL 07/31/2024 3:27 AM OBJECT ORIENTED PROGRAMMER [facility] Blood BLOOD SPECIMEN / Unknown Venipuncture / Unknown 07/31/2024 2:15 AM OBJECT ORIENTED PROGRAMMER 07/31/2024 2:22 AM OBJECT ORIENTED PROGRAMMER Miguel Angel Mccain MD LAB - CHEMISTRY AIDEN KEVIN Performing Organization Address [facility] de Phone Number [facility] [address] [place] [phone] * (ABNORMAL) IRON + TRANSFERRIN PANEL (07/31/2024 2:15 AM OBJECT ORIENTED PROGRAMMER) Pathologist [facility] Iron 84 40 - 150 ug/dL 07/31/2024 2:55 AM OBJECT ORIENTED PROGRAMMER [facility] Transferrin 123(L) 174 - 382 mg/dL 07/31/2024 2:55 AM OBJECT ORIENTED PROGRAMMER [facility] TIBC Calculated 154(L) 240 - 450 ug/dL 07/31/2024 2:55 AM OBJECT ORIENTED PROGRAMMER [facility] Iron Saturation % 55(H) 20 - 50 % 07/31/2024 2:55 AM OBJECT ORIENTED PROGRAMMER [facility] Blood BLOOD SPECIMEN / Unknown Venipuncture / Unknown 07/31/2024 2:15 AM OBJECT ORIENTED PROGRAMMER 07/31/2024 2:22 AM OBJECT ORIENTED PROGRAMMER Miguel Angel Mccain MD LAB - CHEMISTRY AIDEN KEVIN Performing Organization Address [facility] Co de Phone Number [facility] [address] [place] [phone] * TRANSFUSE RED BLOOD CELL LEUKOREDUCED UNIT(S) (07/30/2024 7:41 AM OBJECT ORIENTED PROGRAMMER) Peewee Esquivel NURSING - BLOOD PROD TRANSFUSION * BLOOD TYPE VERIFICATION (07/30/2024 2:06 AM OBJECT ORIENTED PROGRAMMER) ABO Rh B POS 07/30/2024 4:2 5 AM OBJECT ORIENTED PROGRAMMER [facility] Blood Bank BLOOD SPECIMEN / Unknown Venipuncture / Unknown 07/30/2024 2:06 AM OBJECT ORIENTED PROGRAMMER 07/30/2024 3:11 AM OBJECT ORIENTED PROGRAMMER Yi Grier MD LAB - BLOOD BANK ORD ERABLES Performing Organization Address City/[facility] Co de Phone Number [facility] [address] [phone] * (ABNORMAL) PT-INR (07/30/2024 2:06 AM OBJECT ORIENTED PROGRAMMER) Only the most recent of2 resultswithin the time period is included. PT 19.8(H) 12.1 - 14.8 sec 07/30/2024 3:12 AM OBJECT ORIENTED PROGRAMMER [facility] Comment:This result represen ts a significant difference from this patient's most recent previous value. Clinical correlation is therefore recommended. INR 1.7(H) 0.9 - 1.1 07/30/2024 3:12 AM OBJECT ORIENTED PROGRAMMER [facility] Blood BLOOD SPECIMEN / Unknown Venipuncture / Unknown 07/30/2024 2:06 AM OBJECT ORIENTED PROGRAMMER 07/30/2024 2:27 AM OBJECT ORIENTED PROGRAMMER Narrative [facility] - 07/30/2024 3:12 AM OBJECT ORIENTED PROGRAMMER Conventional Warfarin Anticoagulant Therapy: INR Reference Range: 2.0-3.0 Intensive Warfarin Anticoagulant Therapy: INR Reference Range: 2.5-3.5 Yi Grier MD LAB - COAGULATION OR DERABLES Performing Organization Address City/[facility] Co de Phone Number [facility] [address] [place] [phone] * (ABNORMAL) CBC W/O DIFFERENTIAL (07/30/2024 2:06 AM OBJECT ORIENTED PROGRAMMER) Only the most recent of3 resultswithin the time period is included. WBC 12.5(H) 4.0 - 10.7 x10E9/L 07/30/2024 2:30 AM [facility] RBC Count 2.06(L) 3.90 - 5.20 x10E12/L 07/30/2024 2:30 AM [facility] Hemoglobin 6.4(L) 11.9 - 15.8 g/dL 07/30/2024 2:30 AM [facility] Hematocrit 18.7(L) 34.8 - 46.1 % 07/30/2024 2:30 AM [facility] MCV 90.8 80.0 - 98.0 fL 07/30/2024 2:30 AM [facility] MCH 31.1 26.7 - 33.6 pg 07/30/2024 2:30 AM [facility] MCHC 34.2 31.7 - 36.3 g/dL 07/30/2024 2:30 AM [facility] RDW-CV 18.1(H) 11.3 - 14.8 % 07/30/2024 2:30 AM [facility] Platelet Count 161 150 - 420 x10E9/L 07/30/2024 2:30 AM [facility] MPV 10.0 7.8 - 11.4 fL 07/30/2024 2:30 AM [facility] Blood BLOOD SPECIMEN / Unknown Venipuncture / Unknown 07/30/2024 2:06 AM OBJECT ORIENTED PROGRAMMER 07/30/2024 2:27 AM OBJECT ORIENTED PROGRAMMER Yi Grier MD LAB - HEMATOLOGY ORD ERABLES [facility] [address] [place] [address] * US ABDOMEN LIMITED (RUQ) (07/29/2024 2:29 PM OBJECT ORIENTED PROGRAMMER) Anatomical Region Laterality Modality Abdomen Ultrasound 07/29/2024 3:34 PM OBJECT ORIENTED PROGRAMMER Impressions 07/30/2024 10:05 AM OBJECT ORIENTED PROGRAMMER IMPRESSION: 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 Hepatic steatosis with a mass right lobe most consistent with focal fatty sparing. Lack of ability to compare to the outside images result in decreased sensitivity. > Interpreting Provider: Kameron Sprague MD on 07/30/2024 10:05 AM Narrative 07/30/2024 10:05 AM OBJECT ORIENTED PROGRAMMER PROCEDURE: US ABDOMEN LIMITED, DATE/TIME OF EXAM: 07/29/2024 2:29 PM, LOCATION [facility] INDICATION: K92.1: Melena ADDITIONAL CLINICAL INFORMATION: [...] DATE/TIME OF EXAM: 07/29/2024 2:29 PM, LOCATION [facility] INDICATION: K92.1: Melena ADDITIONAL CLINICAL INFORMATION: [...] MD ORDERABLES * EGD (07/29/2024 6:57 AM OBJECT ORIENTED PROGRAMMER) Report Endoscopy POC _ Patient Name: Sarahy Rodriguez Procedure Date: 07/29/2024 6:57 AM Date of : 1960 Admit Type: Inpatient Age: 64 Gender: Female Attending MD: Cathleen Estrada MD, [id number] _ Procedure: Upper GI endoscopy Indications: Melena [...] GI notes Procedure Code(s): --- Professional --- 94872, Esophagogastroduoden oscopy, flexible, transoral; diagnostic, including collection of specimen(s) by brushing or washing, when performed (separate procedure) --- Technical --- 95760, Esophagogastroduoden oscopy, flexible, transoral; diagnostic, including collection [...] K92.1, Melena (includes Hematochezia) CPT copyright 2021 [employer]. All rights reserved. The codes documented in this report are preliminary and upon label coder review may be revised to meet current compliance requirements. Cathleen Estrada MD 07/29/2024 9:00:40 AM Number of Addenda: 0 Note Initiated On: 07/29/2024 6:57 AM [facility] 07/29/2024 6:57 AM OBJECT ORIENTED PROGRAMMER Narrative Procedure Note Cathleen Estrada MD - [...] GI PROCEDURE ORDERAB LES Performing Organization Address City/[facility] Co de Phone Number [facility] [place] [address] * CULTURE BLOOD (07/28/2024 10:03 PM OBJECT ORIENTED PROGRAMMER) Only the most recent of2 resultswithin the time period is included. Culture No growth day 5 LINO 08/03/2024 1:30 [address]GRAMMER [facility] Blood PERIPHERAL BLOOD / Unknown Venipuncture / Unknown 07/28/2024 10:03 PM OBJECT ORIENTED PROGRAMMER 07/28/2024 10:07 PM OBJECT ORIENTED PROGRAMMER Fabio Santos MD LAB - MICROBIOLOGY O RDERABLES Performing Organization Address [facility] Co de Phone Number [facility] MICROBIOLOGY [address] [place] [address], [facility] [phone] * TYPE + SCREEN PANEL (07/28/2024 6:52 PM OBJECT ORIENTED PROGRAMMER) ABO Rh B POS 07/28/2024 9:52 PM OBJECT ORIENTED PROGRAMMER [facility] Comment:No history; collect retype. Antibody Screen NEG 9:52 PM OBJECT ORIENTED PROGRAMMER [facility] Blood Bank BLOOD SPECIMEN / Unknown Venipuncture / Unknown 07/28/2024 6:52 PM OBJECT ORIENTED PROGRAMMER 07/28/2024 8:53 PM OBJECT ORIENTED PROGRAMMER Fabio Santos MD LAB - BLOOD BANK ORD ERABLES Performing Organization Address [facility] Co de Phone Number [facility] [address] [place] [address], [facility] [phone] from Last 3 Months Advance Directives Documents on File Type Date Recorded Patient Watch Assembly Instructor Expl anation Adv Directive/Living Will/POA 08/08/2024 10:51 PM Adv Directive/Living Will/POA 08/01/2024 8:23 PM Adv Directive/Living Will/POA 07/31/2024 7:48 PM * Full Code (Latest Code Status on File) Date Activated Date Inactivated Comments 07/28/2024 3:11 PM 08/07/2024 5:49 PM Care Teams Candy Cutter Machine Relationship Specialty Start Date End Date Priyank Zepeda MD [address] [place] [phone] PCP - General 02/23/22
[2024-08-13 19:59] LABS: Basophils Absolute Auto 0.03 K/mm3 (0.00-0.10); Basophils Percent Auto 0.7 % (0.0-1.0); Eosinophils Absolute Auto 0.06 K/mm3 (0.02-0.50); Eosinophils Percent Auto 1.4 % (1.0-6.0); Hematocrit 33.2 % (35.0-42.0); Hemoglobin 10.3 g/dL (11.7-13.8); Immature Granulocyte Absolute 0.01 K/mm3 (0.00-0.00); Immature Granulocyte Percent A 0.2 % (0.0-0.0); Lymphocytes Absolute Auto 0.56 K/mm3 (1.10-4.50); Lymphocytes Percent Auto 13.3 % (18.0-42.0); Mean Corpuscular Hemoglobin 30.3 pg (27.0-31.0); Mean Corpuscular Volume 97.6 fL (78.0-102.0); Mean Platelet Volume 9.9 fl (9.2-11.8); Monocytes Absolute Auto 0.31 K/mm3 (0.10-0.90); Monocytes Percent Auto 7.4 % (2.0-11.0); Neutrophils Absolute Auto 3.23 K/mm3 (1.70-7.20); Platelet Count Result 240 K/mm3 (150-420); Red Cell Distribution Width 17.6 % (11.6-14.4); White Blood Count 4.2 K/mm3 (4.8-10.8)
[2024-08-13 20:13] LABS: INR 1.2; Partial Thromboplastin Time 27.6 Sec (23.9-30.70); Prothrombin Time 12.9 Seconds (9.50-12.1)
[2024-08-13 20:20] LABS: Alanine Aminotransferase 39 U/L (14-59); Albumin Level 2.1 g/dL (3.4-5.0); Alkaline Phosphatase 160 U/L (46-116); Aspartate Amino Transferase 69 U/L (15-37); Bilirubin,Total 0.6 mg/dL (0.00-1.00); Blood Urea Nitrogen 13 mg/dL (7-18); Carbon Dioxide 26 mmol/L (21-32); Estimated CRCL calculation 43 ml/min; Estimated Glomerular Filt Rate 43; Glucose 113 mg/dL (70-99); Magnesium 1.6 mg/dL (1.8-2.4); NT Pro B Type Natriuretic Pept 816 pg/mL (0-125); Phosphorus 3.7 mg/dL (2.6-4.7); Total Protein 5.9 g/dL (6.4-8.2)
[2024-08-13 20:27] LABS: Anion Gap 9 mmol/L (4-12); Calcium 6.1 mg/dL (8.5-10.1); Chloride 108 mmol/L (98-108); Osmolality Calculated 297 mOsm/kg (285-295); Sodium 143 mmol/L (136-145)
[2024-08-13 20:29] LABS: Potassium 2.4 mmol/L (3.5-5.1)
[2024-08-13] MEDS: KCL 40 MEQ/0.9% SOD CHL 1,000 ML 100 ML IV CONT (21:34)
[2024-08-13] MEDS: MAGNESIUM SULF 2 GM/WATER 50ML 2 GM/50 ML BAG IVPB (21:36)
[2024-08-13] MEDS: POTASSIUM CHLORIDE 20 MEQ ER TABLET 40 MEQ PO (21:37)
[2024-08-13] MEDS: CALCIUM GLUC 2,000 MG/NS 100ML 2,000 MG/100 ML BAG 100 MG IVPB (21:39)
[2024-08-13] MEDS: CALCIUM CARBONATE (OSCAL) 500 MG TABLET 1000 MG (23:26)
[2024-08-13] MEDS: CALCIUM CARBONATE (OSCAL) 250 MG TABLET 1250 MG PO (23:26)
[2024-08-14] VITALS (12 sets, daily range): BP systolic 98–146; BP diastolic 58–84; PULSE 66–105; RESP 14–19; TEMP 36–36.8; O2SAT 90–100; BMI 32.3
--- NOTE | 2024-08-14 01:01 | ADMGEN ---
This patient, Louise Moore, was admitted to 2nd Floor Room 203-1. Patient oriented to hospital policies and general routines including ID bracelet, bed and alarms, visiting hours, pain management, procedures, bathroom and other care routines, personal items, smoking policy, room service/diet, and visiting hours. Information on how to activate the Rapid Response Team has been discussed. Patient are encouraged to report perceived risks to care and to ask questions if they do not understand what they are told or what they should do.
[2024-08-14 05:34] LABS: Anion Gap 10 mmol/L (4-12); Blood Urea Nitrogen 12 mg/dL (7-18); Carbon Dioxide 24 mmol/L (21-32); Chloride 110 mmol/L (98-108); Estimated CRCL calculation 51 ml/min; Estimated Glomerular Filt Rate 51; Glucose 84 mg/dL (70-99); Magnesium 1.7 mg/dL (1.8-2.4); Osmolality Calculated 296 mOsm/kg (285-295); Sodium 144 mmol/L (136-145)
[2024-08-14 05:38] LABS: Calcium 5.9 mg/dL (8.5-10.1); Potassium 2.5 mmol/L (3.5-5.1)
[2024-08-14] MEDS: POTASSIUM CHLORIDE 20 MEQ ER TABLET 40 MEQ PO (06:46)
[2024-08-14] MEDS: KCL 20 MEQ/SW 100 ML 100 ML 50 MEQ IVPB (06:46)
[2024-08-14] MEDS: CALCIUM GLUC 2,000 MG/NS 100ML 2,000 MG/100 ML BAG 100 MG IVPB (06:58)
--- OUTSIDE RECORDS SUMMARY | 2024-08-14 07:27 | XMS_ITS | Encounter Summary ---
Author Organization [facility] Address [address] [place] [address] Phone Care Team Providers Care Microsoft Windows Engineer Name Role Phone Priyank Zepeda MD Primary Care Provider [phone] Reason for Visit * Reason Onset Date Comments Medication Management 08/13/2024 Encounter Details Date Type Department Care Team (Late st Contact Info) Description [facility]/13[facility] [address] [place] [address] Eloisa Ruiz, PT Medication Management Social History Tobacco Use Types Packs/Day Years Used Date Smoking Tobacco: Never Assessed Comments Unknown Sex and Gender Information Value Date Recorded Sex Assigned at Not on file Legal Sex Female 11:40 PM CDT Gender Identity Not on file Sexual Orientation Not on file documented as of this encounter Miscellaneous Notes * Telephone Encounter - Eloisa Ruiz, PT - 08/13/2024 10:37 PM CDT S - Medication discrepancies B - Current [facility] patient admitted on 08/13/24 for PT and OT services related to GI bleed,abnormal labs. A - Patient reports that she is currently taking the following OTC meds : beta carotene 7500mcg 1x daily; vitamin b12 2500mcg 1x daily R - Please review the above med discrepancies and update the medication list in EPIC to reflect theany changes. Notify Home Health when complete to facilitate patient education. documented in this encounter Plan of Treatment Upcoming Encounters Date Type Department Care Team (Late st Contact Info) Description 08/15/2024 1:00 AM CDT Home Care Visit [address] [address] [address] Richard, [place] 08/16/2024 1:00 AM CDT Home Care Visit [address] [address] Moni Mendoza OT 08/20/2024 1:00 AM CDT Home Care Visit [address] [address] [address] [place], [place] 08/22/2024 1:00 AM CDT Home Care Visit [address] [address] [place] Richard, [place] 08/26/2024 1:00 AM CDT Home Care Visit [address] [address] Viola Richard K, [place] 08/28/2024 1:00 AM CDT Home Care Visit [address] [address] [place] Richard, [place] 09/02/2024 1:00 AM CDT Home Care Visit [address] [address] Eloisa Ruiz, PT 09/04/2024 1:00 AM CDT Home Care Visit [address] [address] [address], [place] documented as of this encounter Visit Diagnoses Not on filedocumented in this encounter Care Teams Microsoft Windows Engineer Relationship Specialty Start Date End Date Priyank Zepeda MD [address] [place] [address] PCP - General Internal Medicine 08/08/24 documented as of this encounter
--- OUTSIDE RECORDS SUMMARY | 2024-08-14 07:27 | XMS_ITS ---
Author Organization Unknown Address [address] [place] [phone] Phone Care Team Providers Care Government Minister Name Role Phone GARFIELD Ashby Attending Unavailable [...] em Smoking History Never smoker (Never Smoked) [id number] SNOMED CT Sex Female Vital Signs Vital Sign Value Unit Shannon Value Shannon Unit Date/Time Recent/Initial? Code Code System Body Mass Index 30.45 kg/m2 11/13/2023 14:43 Initial 30540 -5 INC Systolic Blood Pressure 136 mm[Hg] 12/14/2023 08:17 Initial 8480- 6 LOINC Diastolic Blood Pressure 78 mm[Hg] 12/14/2023 08:17 Initial 8462- 4 INC Body Surface Area 1.95 m2 11/13/2023 14:43 Initial 3140- 1 LOINC Height 165.100 0 cm 65.00 in 11/13/2023 14:43 Initial 8302- 2 INC O2 Saturation 99 % 2023 08:17 Initial 37377 -5 INC Pulse 57.0 /min 12/14/2023 08:17 Initial 8867- 4 LOINC Respiration 20 /min 12/14/19 08:17 Initial 9279- 1 LOINC Temperature 36.2 Kait 97.1 F 12/14/19 24 08:17 Initial 8310- 5 LOINC Weight 83.01 kg 183.00 lbs 11/13/2023 14:43 Initial 75164 -7 [facility] Medications Medication Start Date End Date Route Frequency Dose Code Code System Medication Instructions Home Meds Vitamin B12 1000 MCG Sublingual Tablet 12/14/2023 Unknown SUBLINGUAL ONCE A DAY [address] 1000 MCG SUBLINGUAL ONCE A DAY Tums Extra Strength 750 MG Oral Tablet, Chewable 12/14/2023 Unknown ORAL NEEDED 750 MG 6967495 RxNorm TAKE 750 MG ORAL NEEDED Amitriptyline 10MG Oral Tablet 12/14/2023 Unknown ORAL TWICE A DAY 10 MILLIGRA MS 562097 RxNorm TAKE 10 MILLIGRAMS ORAL TWICE A DAY Calcitriol 0.5MCG Oral Capsule, Liquid Filled 12/14/2023 Unknown ORAL TWICE A DAY 2 CAPSULE 671196 RxNorm TAKE 2 CAPSULE ORAL TWICE A DAY Calcium Citrate Powder 12/14/[address]TE NOT APPLICABLE 1 unit(s) RxNorm 1 EACH ROUTE NOT APPLICABLE Eliquis 5MG Oral Tablet 12/14/2023 12/14/19 24 ORAL TWICE A DAY 5 MILLIGRA MS 0669263 RxNorm TAKE 5 MILLIGRAMS ORAL TWICE A DAY FLUoxetine 20MG/5ML Oral Solution 12/14/2023 Unknown ORAL TWICE A DAY 065424 RxNorm TAKE mL ORAL TWICE A DAY Iron 325MG Oral Tablet 12/14/2023 Unknown ORAL THREE TIMES A DAY 325 MILLIGRA MS 424137 RxNorm TAKE 325 MILLIGRAMS ORAL THREE TIMES A DAY Levothyroxine 125MCG Oral Tablet 12/14/2023 Unknown ORAL ONCE A DAY 0.5 TABLET 438784 RxNorm TAKE 0.5 TABLET ORAL ONCE A DAY Loratadine 10MG Oral Tablet 12/14/2023 Unknown ORAL NEEDED 10 MILLIGRA MS 559138 RxNorm TAKE 10 MILLIGRAMS ORAL NEEDED Metoprolol Succinate 50MG Oral Tablet, Extended Release 12/14/2023 Unknown ORAL ONCE A DAY 50 MILLIGRA MS 345273 RxNorm TAKE 50 MILLIGRAMS ORAL ONCE A DAY Potassium Chloride 20MEQ Oral Tablet, Extended Release 12/14/2023 Unknown ORAL TWICE A DAY 20 MEQ 9482758 RxNorm TAKE 20 MEQ ORAL TWICE A DAY Sodium Bicarbonate 650MG Oral Tablet 12/14/2023 Unknown ORAL THREE TIMES A DAY 650 MILLIGRA MS 630171 RxNorm TAKE 650 MILLIGRAMS ORAL THREE TIMES A DAY Tab-A-Ezio [id number]-[id number] U-6MCG Oral Tablet 12/14/2023 Unknown ORAL ONCE A DAY 1 unit(s) 692931 RxNorm TAKE 1 EACH ORAL ONCE A [...] Code Syste m Vocal cord nodule completed 38074901 SNOMEDC T Fracture of tibia completed 93745716 SNOMEDC T Volvulus completed 8679938 SNOMEDCT APPENDECTOMY completed 36843952 SNOMEDCT Removal of kidney stone completed 0745745 S NOMEDCT Anesthesia for lower intesti nal endoscopic procedures, endoscope introduce 12/14/2023 completed 77249 CPT Gastric bypass completed 620939714 SNOMEDCT History of parathyroidectomy completed 8434054 09645217 SNOMEDCT Colonoscopy, flexible; with biopsy, single or multiple 12/14/2023 completed 39249 CPT Problems Problem Start Date Resolved Date Status Code Code System CHRONIC KIDNEY DISEASE, STAG E 3A active [id number] SNOMED-CT Allergies and Adverse Reactions Allergy Substance Reaction Severity Start Date Concern Status Code Code System ADHESIVE Itching (SNOMED-CT: 086997385) Active SUCCINYLCHOLINE CHLORIDE HARD TO WAKE UP (SNOMED-CT: null) Active 3565 RxNorm CIPRO REDNESS IV ONLY (SNOMED-CT: null) Mild Active 805735 RxNorm No Known Drug Allergies Active 584593659 SNOMED-CT Plan of Treatment Colonoscopy 12/14/2023 Encounters Encounter Diagnosis Start Date Code Code Sys tem Noninfective gastroenteritis and colitis, unspecified 12/14/2023 SNOMED-CT Personal Care Team Section Performer Name Performer Role Active Date Inactive KIERAN Gilbert PCP - Primary care physician 2024-04-16
--- OUTSIDE RECORDS SUMMARY | 2024-08-14 07:28 | XMS_ITS | Encounter Summary ---
Author Organization [facility] Address [address] [facility] [address] [place] [address] Phone Care Team Providers Care Wood Boatbuilder Apprentice Name Role Phone Priyank Zepeda MD Primary Care Provider [phone] Encounter Details Date Type Department Care Team (Late Contact Info) Description 12/06/2019 Orders Only [facility] [address] [facility] [address] [place] [phone] Kristofer Ortiz MD [address] [facility] [facility] [address] [place] [address] Chronic kidney disease stage 3 [...] Description 10/22/2024 10:45 AM CDT Office Visit [facility] [address] [facility] [facility] [address] [place] [phone] Kristofer Ortiz MD [address] [place] [address] [address] documented as of this encounter Visit Diagnoses Diagnosis Chronic kidney disease stage 3 (HCC) documented in this encounter Care Teams Wood Boatbuilder Apprentice Relationship Specialty Start Date End Date Priyank Zepeda MD [address] [place] [address] PCP - General Internal Medicine 05/17/19 documented as of this encounter
--- OUTSIDE RECORDS SUMMARY | 2024-08-14 07:28 | XMS_ITS | Encounter Summary ---
Author Organization [facility] Address [address] [facility] [address] [place] [address] Phone Care Team Providers Care See Supervisor Name Role Phone Priyank Zepeda MD Primary Care Provider [phone] Encounter Details Date Type Department Care Team (Late Contact Info) Description 01/03/2020 Orders Only [facility] [address] [facility] [address] [place] [phone] Kristofer Ortiz MD [address] [facility] [address] [place] [address] Chronic kidney disease stage 3 [...] Description 10/22/2024 10:45 AM CDT Office Visit [facility] [address] [facility] [address] [place] [address] Kristofer Ortiz MD [address] [place] [address] [address] documented as of this encounter Visit Diagnoses Diagnosis Chronic kidney disease stage 3 (HCC) documented in this encounter Care Teams See Supervisor Relationship Specialty Start Date End Date Priyank Zepeda MD [address] [place] [address] PCP - General Internal Medicine 05/17/19 documented as of this encounter
--- OUTSIDE RECORDS SUMMARY | 2024-08-14 07:29 | XMS_ITS | Clinical Summary ---
Author Organization [facility] Address [address] [place] [address] Care Team Providers Care Job Change Crew Member Name Role Phone Priyank Zepeda MD Primary Care Provider [phone] Allergies Active Allergy Reactions Criticality Noted Date [...] Packs/Day Years Used Date Smoking Tobacco: Never [facility] [employer] Answer Date Recorded In the past 12 months has e [employer], [employer], oil, or water [email or web address] threatened to shut off services in your [...] any time in the past 12 m [facility], were you homeless or living in a detention (including now)? No 11/17/2023 Comments Unknown Sex [...] Most Recently Relevant to Health Maintenance Insurance [employer] Advance Directives * Full Code (Latest Code Status on File) Date Activated Date Inactivated Comments 11/17/2023 1:12 AM 11/18/2023 5:01 PM * Full Code Date Activated Date Inactivated Comments 09/28/2023 1:27 AM 10/02/2023 3:59 PM Care Teams Job Change Crew Member Relationship Specialty Start Date End Date Priyank Zepeda MD [address] [place] [address] PCP - General INTERNAL MEDICINE 09/19/19
--- OUTSIDE RECORDS SUMMARY | 2024-08-14 07:29 | XMS_ITS | Clinical Summary ---
Author Organization [facility] Address [address] [address] Phone Care Team Providers Care Director Of Public Relations Name Role Phone Priyank Zepeda MD Primary Care Provider [phone] Allergies No known active allergies Medications calcium carbonate 1250 (500 Ca) MG Chewable Tablet Take 1 Tablet by mouth 2 times daily. Active apixaban (Eliquis) 5 MG Tablet Take 5 mg by mouth 2 times daily. Active furosemide (LASIX) 40 MG Tablet Take 40 mg by mouth daily. Active folic acid (FOLVITE) 1 MG Tablet Take 1 mg by mouth daily. Active amitriptyline (ELAVIL) 10 MG Tablet Take 10 mg by mouth 2 times daily. Active Ergocalciferol (VITAMIN D2 PO) Take 2.5 mg by mouth daily. Active calcitRIOL (ROCALTROL) 0.5 MCG Capsule Take 1 mcg by mouth 3 times daily. Active acetaminophen (TYLENOL) 500 MG Tablet Take 1,000 mg by mouth every 6 hours as needed for Mild or more severe pain. Active sodium bicarbonate 650 MG Tablet Take 650 mg by mouth 3 times daily. Active FLUoxetine (PROZAC) 40 MG Capsule Take 40 mg by mouth 2 times daily. Active hydrOXYzine (ATARAX) 25 MG Tablet Take 25 mg by mouth. every 6-8 hours prn for severe itching Active ferrous sulfate 325 (65 Fe) MG Tablet Take 325 mg by mouth 3 times daily. Active levothyroxine (SYNTHROID) 125 MCG Tablet Take 0.5 Tablets by mouth daily. Active alendronate (FOSAMAX) 10 MG Tablet Take 10 mg by mouth. every morning on empty stomach with 8 oz of water, nothong else for 30 minutes, dont lay down. Active pantoprazole (PROTONIX) 40 MG Tablet Delayed Response Take 40 mg by mouth 2 times daily. Active Encounters Date Type Department Care Team Description 08/13/2024 2:30 PM CDT Home Care Visit [address] [address] Eloisa Ruiz, PT PT - [facility] START OF CARE 08/13/[address] [address] Eloisa Ruiz, PT Medication Management 08/13/2024 Plan of Care Documentation [address] [address] from Last 3 Months Social History Tobacco [...] 08/15/2024 1:00 AM CDT Home Care Visit [address] [address] Viola Richard PTA [place] 08/16/2024 1:00 AM CDT Home Care Visit [address] [address] Moni Mendoza OT 08/20/2024 1:00 AM CDT Home Care Visit [address] [address] Viola Richard, RN [place] 08/22/2024 1:00 AM CDT Home Care Visit [address] [address] Viola Richard, [place] 08/26/2024 1:00 AM CDT Home Care Visit [address] [address] Viola Richard, [place] 08/28/2024 1:00 AM CDT Home Care Visit [address] [address] Viola Richard, [place] 09/02/2024 1:00 AM CDT Home Care Visit [address] [address] Eloisa Ruiz, PT 09/04/2024 1:00 AM CDT Home Care Visit [address] [address] Viola Richard, [place] Health Maintenance Due Date Last Done Comments [...] Zoster Immunization Completed 10/09/2023, Influenza Immunization Completed 4, 03/27/2023, 03/06/2022, Additional history exists Pneumococcal Immunization [...] this topic Insurance MEDICAID [employer] Advance Directives * Full Code (Latest Code Status on File) Date Activated Date Inactivated Comments 08/13/2024 10:26 PM Care Teams Director Of Public Relations Relationship Specialty Start Date End Date Priyank Zepeda MD [address] [place] [address] PCP - General Internal Medicine 08/08/24
--- OUTSIDE RECORDS SUMMARY | 2024-08-14 07:29 | XMS_ITS | Encounter Summary ---
Author Organization [facility] Address [address] [place] [address] Phone Care Team Providers Care Ground Helper Street Railway Name Role Phone Priyank Zepeda MD Primary Care Provider [phone] Reason for Visit * Auth/Cert (Routine) Specialty Diagnoses / Procedures Referred By Contac t Referred To Contact Referral ID Status Reason Start Date Expiration Date Visits Re quested Visits Authorized [id number] 1 1 Encounter Details Date Type Department Care Team (Late st Contact Info) Description 08/13/2024 2:30 PM [facility] [address] [place] [address] Eloisa Ruiz, PT PT - [facility] START [...] 08/15/2024 1:00 AM CDT Home Care Visit [address] [address] Viola Richard, [place] 08/16/2024 1:00 AM CDT Home Care Visit [address] [address] Moni Mendoza OT 08/20/2024 1:00 AM CDT Home Care Visit [address] [address] Viola Richard, [place] 08/22/2024 1:00 AM CDT Home Care Visit [address] [address] Viola Richard, [place] 08/26/2024 1:00 AM CDT Home Care Visit [address] [address] Viola Richard, [place] 08/28/2024 1:00 AM CDT Home Care Visit [address] [address] Viola Richard, [place] 09/02/2024 1:00 AM CDT Home Care Visit [address] [address] Eloisa Ruiz, PT 09/04/2024 1:00 AM CDT Home Care Visit [address] [address] Viola Richard, [place] documented as of this encounter Visit Diagnoses Not on filedocumented in this encounter Home Health Visit - Care Plan Visit Details Visit Type -PT - [facility] START OF CARE Discipline -Physical Therapy Problems Problem Description Start Date Status Goals Interve ntions PT COMPREHENSIVE Disciplines: Physical Therapy 08/13/2024 Active 1 goal linked to scheduled/documente d intervention 1 goal intervention scheduled/documente d in this visit Goals Goal Associated Problem Outcome Goal Met? Visit Notes PT Edema Management Description: Short Term Goal: Patient will demonstrate consistent implementation of therapeutic edema management principles including: rest, elevation, ankle pumps and therapeutic exercise as indicated. To be met by 08-23-24. PT COMPREHENSIVE No Interventions Intervention Associated Problem/Goal Status Variance Visit Notes PT Edema Management Description: Instruct on edema management techniques. Problem:PT COMPREHENSIVE Goal:PT Edema Management Completed Skilled instruction provided to Patient on edema management techniques including: rest, elevation and ankle pumps. Response verbalize understanding. documented in this encounter Care Teams Ground [employer] [address] Railway Relationship Specialty Start Date End Date Priyank Zepeda MD [address] [place] [address] PCP - General Internal Medicine 08/08/24 documented as of this encounter
--- OUTSIDE RECORDS SUMMARY | 2024-08-14 07:29 | XMS_ITS | Encounter Summary ---
Author Organization [facility] Address [address] [place] [address] Care Team Providers Care Union Representative Name Role Phone Priyank Zepeda MD Primary Care Provider [phone] Encounter Details Date Type Department Care Team (Late st Contact Info) Description 10/03/2023 Hospital Follow-up Call [facility] [address] [place] [address] Chelsea Bishop RN Social History Tobacco Use Types Packs/Day Years Used Date Smoking Tobacco: Never [facility] Utilities Answer Date Recorded In the past 12 months has e electric, gas, oil, or water [employer] threatened to shut off services in your [...] any time in the past 12 m [facility], were you homeless or living in a [...] on filedocumented in this encounter Care Teams Union Representative Relationship Specialty Start Date End Date Priyank Zepeda MD [address] [place] [address] PCP - General INTERNAL MEDICINE 09/19/19 documented as of this encounter
--- OUTSIDE RECORDS SUMMARY | 2024-08-14 07:29 | XMS_ITS | Encounter Summary ---
Author Organization [facility] Address [address] [place] [address] Phone Care Team Providers Care Cyber Policy And Strategy Planner Name Role Phone Priyank Zepeda MD Primary Care Provider [phone] Encounter Details Date Type Department Care Team (Late st Contact Info) Description 08/13/2024 Plan of Care Documentation [address] [address] Social History Tobacco Use Types Packs/Day Years [...] 08/15/2024 1:00 AM CDT Home Care Visit [address] [address] Viola Richard, [place] 08/16/2024 1:00 AM CDT Home Care Visit [address] [address] Moni Mendoza OT 08/20/2024 1:00 AM CDT Home Care Visit [address] [address] Viola Richard, [place] 08/22/2024 1:00 AM CDT Home Care Visit [address] [address] Viola Richard, [place] 08/26/2024 1:00 AM CD[facility] [address] [place] [address] Viola Richard, [place]IG[place] 08/28/2024 1:00 AM CD[facility] [address] [place] [address] Viola Richard, [place]IG[place] 09/02/2024 1:00 AM CDT [facility] [address] [place] [address] Eloisa Ruiz, PT 09/04/2024 1:00 AM CDT Home Care Visit [address] [address] Viola Richard, [place] RIGGER [place] documented as of this encounter Visit Diagnoses Not on filedocumented in this encounter Care Teams Cyber Policy And Strategy Planner Relationship Specialty Start Date End Date Priyank Zepeda MD [address] [place] [address] PCP - General Internal Medicine 08/08/24 documented as of this encounter
--- OUTSIDE RECORDS SUMMARY | 2024-08-14 07:30 | XMS_ITS | Clinical Summary ---
Author Organization [facility] [employer] Address [address] [place] [address] Care Team Providers Care Incinerator Plant Supervisor Name Role Phone Priyank Zepeda MD Primary Care Provider [phone] Source Comments [facility],non-owned Affiliates and Associated Physician Practices is amultiple site organization consisting of ambulatory clinics and hospital sitesin [place], [place], [place] and [place]. This disclosure is being madepursuant to the Care Everywhere program and may not contain all information available regarding this patient. Last updated 18.[facility] [employer] Allergies Active Allergy Reactions Criticality Noted Date [...] 5 Active Cholecalciferol (vitamin D3) 1.25 MG (88448 UT) capsule Take 1 (one) capsule by mouth every 7 days 5 capsule 5 Active furosemide (Lasix) 40 MG tablet Take 1 (one) tablet by mouth once daily 30 tablet 5 Active Calcium Carbonate Antacid (calcium carbonate, 500 mg elemental Ca/5 mL,) 1250 MG/5ML suspension Take 10 mL by mouth 3 times daily with meals 473 mL 1 5 Active pancrelipase (Creon 24,000) 26923-07102 units capsule Take 1 (one) capsule by [...] 5 08/08/19 25 Discontinued pancrelipase (Creon 24,000) 76366-14708 units capsule Take 1 (one) capsule by [...] Department Care Team Description 07/29/2024 8:42 AM MONTESSORI LEAD TEACHER Anesthesia Event [facility] [address] [place] [address] Bozena Osullivan DO Boyce, Lisa C, PAMELA-JOCY 07/29/2024 8:30 AM M[employer]ESSORI LEAD TEACHER - 07/29/2024 9:00 AM M[employer]ESSORI LEAD TEACHER Surgery [facility] [address] [place] [address] Cathleen Estrada MD ESOPHAGOGASTRODUODENOSCOPY (EGD) DIAGNOSTIC 07/28/2024 2:19 PM M[employer]ESSORI LEAD TEACHER - 08/07/2024 4:44 PM MONTESSORI LEAD TEACHER Hospital Encounter [facility] [address] [place] [id number] Yi Grier MD Fatima, Noor E, MD [...] medical care, and heating? Somewhat hard 07/28/2024 [facility] - Occupational Stress [...] any time in the past 12 m [facility], were you homeless or living in a prison (including now)? No 07/28/2024 Sex and Gender Information Value Date Recorded Sex Assigned at Not on file Gender Identity Not on file Sexual Orientation Not on file Last Filed Vital Signs Vital Sign Reading Time Taken Comments Blood Pressure 112/78 08/07/2024 2:44 PM [employer] LEAD TEACHER Pulse 93 08/07/2024 2:44 PM M[employer]ESSORI LEAD TEACHER Temperature 37.5 C (99.5 F) 08/07/2024 11:33 AM M[employer]ESSORI LEAD TEACHER Respiratory Rate 18 08/07/2024 11:3 3 AM M[employer]ESSORI LEAD TEACHER Oxygen Saturation 97% 08/07/2024 2:44 PM M[employer]ESSORI LEAD TEACHER Inhaled Oxygen Concentration - - Weight 87.5 kg (192 lb 14.4 oz) 025 12:04 AM M[employer]ESSORI LEAD TEACHER Height 165.1 cm (5' 5 ) 07/28/2024 4:01 PM M[employer]ESSORI LEAD TEACHER Body Mass Index 32.1 07/28/2024 4:01 PM MONTESSORI LEAD TEACHER Plan of Treatment Health Maintenance Due Date [...] complete this topic MENINGOCOCCAL (Group B) VACCINE SHARED DECISION-MAKING Aged Out No longer eligible based on patient's age to complete this topic MENINGOCOCCAL GROUPS A/C/Y/W VACCINE Aged Out No longer eligible based on patient's age to complete this topic Procedures Procedure Name Priority Date/Time Associated Diagnosis Comments CARDIAC RHYTHM STRIP ORDER 08/08/2024 11:03 PM M[employer]ESSORI LEAD TEACHER APHERESIS/TRANSFUSIO N ORDER 08/08/2024 11:03 PM M[employer]ESSORI LEAD TEACHER B-TYPE NATRIURETIC PEPTIDE AM Draw 08/07/2024 1:59 AM M[employer]ESSORI LEAD TEACHER COMPREHENSIVE METABOLIC PANEL AM Draw 08/07/2024 1:59 AM MONTESSORI LEAD TEACHER VAS BILATERAL VENOUS DUPLEX LE PENDING DISCHARGE 08/06/2024 2:30 PM MONTESSORI LEAD TEACHER Bilateral leg edema MAGNESIUM BLOOD Routine 08/06/2024 6:07 AM M[employer]ESSORI LEAD TEACHER BASIC METABOLIC PANEL (CALCIUM TOTAL) Routine 08/06/2024 6:07 AM M[employer]ESSORI LEAD TEACHER PHOSPHORUS BLOOD Routine 08/06/2024 6:07 AM MONTESSORI LEAD TEACHER MRI LUMBAR SPINE WO CONTRAST Routine 08/05/2024 9:48 AM M[employer]ESSORI LEAD TEACHER Acute midline low back pain without sciatica PHOSPHORUS BLOOD Routine 08/05/2024 6:53 AM M[employer]ESSORI LEAD TEACHER COMPREHENSIVE METABOLIC PANEL AM Draw 08/05/2024 6:53 AM M[employer]ESSORI LEAD TEACHER MAGNESIUM BLOOD AM Draw 08/05/2024 6:53 AM M[employer]ESSORI LEAD TEACHER CBC W AUTO DIFFERENTIAL AM Draw 08/05/2024 6:53 AM MONTESSORI LEAD TEACHER PROTEIN URINE TIMED QUANTITATIVE Routine 08/04/2024 1:55 PM M[employer]ESSORI LEAD TEACHER URIC ACID URINE TIMED Routine 08/04/2024 1:55 PM MONTESSORI LEAD TEACHER CREATININE CLEARANCE URINE TIMED + BLOOD Routine 08/04/2024 1:55 PM MONTESSORI LEAD TEACHER CALCIUM URINE TIMED Routine 08/04/2024 1 :55 PM M[employer]ESSORI LEAD TEACHER COMPREHENSIVE METABOLIC PANEL AM Draw 08/04/2024 6:55 AM MONTESSORI LEAD TEACHER MAGNESIUM BLOOD AM Draw 08/04/2024 6:55 AM MONTESSORI LEAD TEACHER CBC W AUTO DIFFERENTIAL AM Draw 08/04/2024 6:55 AM MONTESSORI LEAD TEACHER URINALYSIS REFLEX TO MICROSCOPIC NO CULTURE Routine 08/03/2024 12:49 PM MONTESSORI LEAD TEACHER COMPREHENSIVE METABOLIC PANEL AM Draw 08/03/2024 9:26 AM MONTESSORI LEAD TEACHER MAGNESIUM BLOOD AM Draw 08/03/2024 9:26 AM MONTESSORI LEAD TEACHER CBC W AUTO DIFFERENTIAL AM Draw 08/03/2024 9:26 AM MONTESSORI LEAD TEACHER XR LUMBAR SPINE 2 OR 3VW Routine 08/02/2024 2:10 PM M[employer]ESSORI LEAD TEACHER Acute midline low back pain without sciatica PTH INTACT W/O CALCIUM Routine 08/02/2024 3:19 AM M[employer]ESSORI LEAD TEACHER MAGNESIUM BLOOD AM Draw 08/02/2024 3:19 AM MONTESSORI LEAD TEACHER RENAL FUNCTION PANEL AM Draw 08/02/2024 3:19 AM MONTESSORI LEAD TEACHER CBC W AUTO DIFFERENTIAL AM Draw 08/02/2024 3:19 AM MONTESSORI LEAD TEACHER CALCIUM BLOOD STAT 08/01/2024 3:41 AM MONTESSORI LEAD TEACHER MAGNESIUM BLOOD AM Draw 08/01/2024 1:20 AM MONTESSORI LEAD TEACHER RENAL FUNCTION PANEL AM Draw 08/01/2024 1:20 AM MONTESSORI LEAD TEACHER CBC W AUTO DIFFERENTIAL AM Draw 08/01/2024 1:20 AM MONTESSORI LEAD TEACHER HGB HCT PANEL Timed 07/31/2024 7:39 AM MONTESSORI LEAD TEACHER TRANSFUSE RED BLOOD CELL LEUKOREDUCED UNIT(S) Routine 07/31/2024 3:40 AM MONTESSORI LEAD TEACHER PREPARE RBC LEUKOREDUCED UNIT Routine 07/31/2024 3:35 AM MONTESSORI LEAD TEACHER MAGNESIUM BLOOD AM Draw 07/31/2024 2:15 AM MONTESSORI LEAD TEACHER RENAL FUNCTION PANEL AM Draw 07/31/2024 2:15 AM MONTESSORI LEAD TEACHER CBC W AUTO DIFFERENTIAL AM Draw 07/31/2024 2:15 AM MONTESSORI LEAD TEACHER VITAMIN D 25-HYDROXY AM Draw 07/31/2024 2:15 AM M[employer]ESSORI LEAD TEACHER VITAMIN B12 AM Draw 07/31/2024 2:15 AM MONTESSORI LEAD TEACHER FOLATE Routine 07/31/2024 2:15 AM M[employer]ESSORI LEAD TEACHER IRON + TRANSFERRIN PANEL Routine 07/31/2024 2:15 AM MONTESSORI LEAD TEACHER HGB HCT PANEL Timed 07/30/2024 10:03 AM MONTESSORI LEAD TEACHER TRANSFUSE RED BLOOD CELL LEUKOREDUCED UNIT(S) Routine 07/30/2024 5:20 AM MONTESSORI LEAD TEACHER PREPARE RBC LEUKOREDUCED UNIT Routine 07/30/2024 5:15 AM MONTESSORI LEAD TEACHER BLOOD TYPE VERIFICATION Routine 07/30/2024 2:06 AM MONTESSORI LEAD TEACHER CBC W/O DIFFERENTIAL AM Draw 07/30/2024 2:06 AM MONTESSORI LEAD TEACHER PT-INR AM Draw 07/30/2024 2:06 AM MONTESSORI LEAD TEACHER BASIC METABOLIC PANEL (CALCIUM TOTAL) AM Draw 07/30/2024 2:06 AM MONTESSORI LEAD TEACHER HGB HCT PANEL Timed 07/29/2024 9:08 PM M[employer]ESSORI LEAD TEACHER US ABDOMEN LIMITED Routine 07/29/2024 2: 29 PM M[employer]ESS[employer]I LEAD TEACHER Gastrointestinal hemorrhage with melena HGB HCT PANEL Routine 07/29/2024 10:19 AM MONTESSORI LEAD TEACHER PT-INR AM Draw 07/29/2024 10:19 AM MONTESSORI LEAD TEACHER W[place] ED EGD FLEX TRANSORAL DX 07/29/2024 8:30 AM MONTESSORI LEAD TEACHER EGD Routine 07/29/2024 6:57 AM MONTESSORI LEAD TEACHER CBC W/O DIFFERENTIAL Routine 07/29/2024 6:42 AM MONTESSORI LEAD TEACHER COMPREHENSIVE METABOLIC PANEL Routine 07/29/2024 6:42 AM MONTESSORI LEAD TEACHER MAGNESIUM BLOOD Routine 07/29/2024 6:42 AM MONTESSORI LEAD TEACHER PHOSPHORUS BLOOD Routine 07/29/2024 6:42 AM MONTESSORI LEAD TEACHER CULTURE BLOOD Timed 07/28/2024 10:03 PM M[employer]ESSORI LEAD TEACHER CULTURE BLOOD Timed 07/28/2024 8:16 PM M[employer]ESSORI LEAD TEACHER TYPE + SCREEN PANEL Routine 07/28/2024 6 :52 PM MONTESSORI LEAD TEACHER COMPREHENSIVE METABOLIC PANEL STAT 07/28/2024 5:25 PM MONTESSORI LEAD TEACHER CBC W/O DIFFERENTIAL STAT 07/28/2024 5:25 PM MONTESSORI LEAD TEACHER from Last 3 Months Results * CARDIAC RHYTHM STRIP ORDER (08/08/2024 11:03 PM MONTESSORI LEAD TEACHER) Narrative 08/08/2024 11:03 PM [employer]ESSORI LEAD TEACHER Ordered by an unspecified provider. Scanned Document CARDIAC SERVICES ORD ERABLES * APHERESIS/TRANSFUSION ORDER (08/08/2024 11:03 PM MONTESSORI LEAD TEACHER) Narrative 08/08/2024 11:03 PM M[employer]ESSORI LEAD TEACHER Ordered by an unspecified provider. Scanned Document NURSING - VITAL SIGN S AND ASSESSMENT * B-TYPE NATRIURETIC PEPTIDE (08/07/2024 1:59 AM MONTESSORI LEAD TEACHER) Pathologist [facility] BNP 35 <=100 pg/mL 08/07/2024 2:52 AM MONTESSORI LEAD TEACHER [facility] Blood BLOOD SPECIMEN / Unknown Venipuncture / Unknown 08/07/2024 1:59 AM MONTESSORI LEAD TEACHER 08/07/2024 2:19 AM MONTESSORI LEAD TEACHER Chika Chew MD LAB - CHEMISTRY AIDEN KEVIN [facility] [address] [place] [address] * (ABNORMAL) COMPREHENSIVE METABOLIC PANEL (08/07/2024 1:59 AM MONTESSORI LEAD TEACHER) Only the most recent of6 resultswithin the time period is included. Pathologist [facility] Glucose 97 70 - 99 mg/dL 08/07/2024 2:55 AM [facility] Sodium 136 136 - 145 mmol/L 08/07/2024 2:55 AM [facility] Potassium 3.9 3.5 - 5.1 mmol/L 08/07/2024 2:55 AM [facility] Chloride 104 98 - 107 mmol/L 08/07/2024 2:55 AM [facility] CO2 23 22 - 29 mmol/L 08/07/2024 2:55 AM [facility] Calcium 6.8(L) 8.4 - 10.4 mg/dL 08/07/2024 2:55 AM [facility] Anion Gap 9 6 - 16 mmol/L 08/07/2024 2:55 AM [facility] BUN 9 7 - 26 mg/dL 08/07/2024 2:55 AM [facility] Creatinine 0.95 0.57 - 1.11 mg/dL 08/07/2024 2:55 AM [facility] Alkaline Phosphatase 91 40 - 150 U/L 08/07/2024 2:55 AM [facility] ALT 21 0 - 55 U/L 08/07/2024 2:55 AM [facility] AST 28 5 - 34 U/L 08/07/2024 2:55 AM [facility] Protein Total 4.9(L) 6.4 - 8.3 gm/dL 08/07/2024 2:55 AM [facility] Albumin 2.1(L) 3.4 - 5.0 gm/dL 08/07/2024 2:55 AM [facility] Bilirubin Total 0.6 0.2 - 1.2 mg/dL 08/07/2024 2:55 AM [facility] eGFR by CKD-EPI 66(L) >=90 mL/min/1.7 3 m2 08/07/2024 2:55 AM [facility] Blood BLOOD SPECIMEN / Unknown Venipuncture / Unknown 08/07/2024 1:59 AM [facility] 08/07/2024 2:19 AM [facility] Chika Chew MD LAB - CHEMISTRY AIDEN KEVIN [facility] Organization Address City/State/ZIP Co de Phone Number [facility] [address] [place] [address] * VAS Bilateral Venous Duplex Le (08/06/2024 2:30 PM M[employer]ESSORI LEAD TEACHER) Anatomical Region Laterality Modality Lower Extremity Ultrasound 08/06/2024 1:50 PM M[employer]ESSORI LEAD TEACHER Narrative Procedure Note Jorge Barakat MD - 08/07/[address] [address] Lower Extremity Venous Ultrasound Report Pat.Name: SARAHY RODRIGUEZ Pat.ID: [id number] St.Date: 08/06/2024 Exam Time: 1:50:00 PM Study Type:LE Venous Age: 1 1960,64Y Sex: FEMALE Sonogrphr: Binh Eldridge RVT Pat. Stat.:Inpatient Room: [facility] ICD - 9: R60.0 CPT - 4: 81194 Reason for Study: Bilateral leg edema History / Clinical: CKD, Liver cirrhosis Procedures: Lower Extremity Venous - Bilateral Race: 1 Visit ID: [id number] ++++++++++++++++++++++++++++++++++++ SUMMARY: ++++++++++++++++++++++++++++++++++++ There is no evidence [...] METABOLIC PANEL (CALCIUM TOTAL) (08/06/2024 6:07 AM MONTESSORI LEAD TEACHER) Only the most recent of2 resultswithin the time period is included. Glucose 87 70 - 99 mg/dL 08/06/2024 8:46 AM [facility] Sodium 137 136 - 145 mmol/L 08/06/2024 8:46 AM [facility] Potassium 3.0(L) 3.5 - 5.1 mmol/L 08/06/2024 8:46 AM [facility] Chloride 103 98 - 107 mmol/L 08/06/2024 8:46 AM [facility] CO2 27 22 - 29 mmol/L 08/06/2024 8:46 AM [facility] Calcium 6.7(L) 8.4 - 10.4 mg/dL 08/06/2024 8:46 AM [facility] Anion Gap 7 6 - 16 mmol/L 08/06/2024 8:46 AM [facility] BUN 7 7 - 26 mg/dL 08/06/2024 8:46 AM [facility] Creatinine 0.81 0.57 - 1.11 mg/dL 08/06/2024 8:46 AM [facility] eGFR by CKD-EPI 81(L) >=90 mL/min/1.7 3 m2 08/06/2024 8:46 AM [facility] Blood BLOOD SPECIMEN / Unknown Venipuncture / Unknown 08/06/2024 6:07 AM M[employer]OR[employer] LEAD TEACHER 08/06/2024 6:11 AM [facility] Chika Chew MD LAB - CHEMISTRY AIDEN KEVIN [facility] Organization Address City/State/ZIP Co de Phone Number [facility] [address] [place] [address] * PHOSPHORUS BLOOD (08/06/2024 6:07 AM M[employer]ESSORI LEAD TEACHER) Only the most recent of3 resultswithin the time period is included. Phosphorus 3.7 2.5 - 4.5 mg/dL 08/06/2024 6:27 AM M[employer]ESSORI LEAD TEACHER [facility] Blood BLOOD SPECIMEN / Unknown Venipuncture / Unknown 08/06/2024 6:07 AM M[employer]ESSORI LEAD TEACHER 08/06/2024 6:11 AM M[employer]ESSORI LEAD TEACHER Miguel Angel Mccain MD LAB - CHEMISTRY ORDE [facility] Performing Organization Address [facility] Co de Phone Number [facility] [address] [place] [address] * MAGNESIUM BLOOD (08/06/2024 6:07 AM MONTESSORI LEAD TEACHER) Only the most recent of8 resultswithin the time period is included. Magnesium 1.7 1.6 - 2.6 mg/dL 08/06/2024 8:43 AM MONTESSORI LEAD TEACHER [facility] Blood BLOOD SPECIMEN / Unknown Venipuncture / Unknown 08/06/2024 6:07 AM M[employer]ESSORI LEAD TEACHER 08/06/2024 6:11 AM M[employer]ESSORI LEAD TEACHER Chika Chew MD LAB - CHEMISTRY ORDKyle KEVIN Performing Organization Address [facility] de Phone Number [facility] [address] [place] [address] * MRI Lumbar Spine Wo Contrast (08/05/2024 9:48 AM MONTESSORI LEAD TEACHER) Anatomical Region Laterality Modality Spine Magnetic Resonan ce 08/05/2024 9:51 AM M[employer]ESSORI LEAD TEACHER Impressions 08/05/2024 11:53 AM MONTESSORI LEAD TEACHER IMPRESSION: Multilevel degenerative disc and joint disease. Mild foraminal narrowing at L3-L4 and L4-L5 levels. No canal narrowing seen. Minimal superior endplate compression at T12, associated with mild marrow edema, less than 25% loss of vertical height. Edited by Tressa Phillips on 08/05/2024 10:17 AM > Interpreting Provider: Stefani Zepeda MD on 08/05/2024 11:53 AM Narrative 08/05/2024 11:53 AM M[employer]ESSORI LEAD TEACHER PROCEDURE: MRI LUMBAR SPINE WO CONTRAST DATE/TIME [...] CBC W AUTO DIFFERENTIAL (08/05/2024 6:53 AM MONTESSORI LEAD TEACHER) Only the most recent of6 resultswithin the time period is included. WBC 6.8 4.0 - 10.7 x10E9/L 08/05/2024 7:01 AM MONTESSORI LEAD TEACHER [facility] RBC Count 2.80(L) 3.90 - 5.20 x10E12/L 08/05/2024 7:01 AM MONTESSORI LEAD TEACHER [facility] Hemoglobin 8.6(L) 11.9 - 15.8 g/dL 08/05/2024 7:01 AM MONTESSORI LEAD TEACHER [facility] Hematocrit 26.3(L) 34.8 - 46.1 % 08/05/2024 7:01 AM MONTESSORI LEAD TEACHER [facility] MCV 93.9 80.0 - 98.0 fL 08/05/2024 7:01 AM MONTESSORI LEAD TEACHER [facility] MCH 30.7 26.7 - 33.6 pg 08/05/2024 7:01 AM MONTESSORI LEAD TEACHER [facility] MCHC 32.7 31.7 - 36.3 g/dL 08/05/2024 7:01 AM MONTESSORI LEAD TEACHER [facility] RDW-CV 17.6(H) 11.3 - 14.8 % 08/05/2024 7:01 AM [facility] Platelet Count 111(L) 150 - 420 x10E9/L 08/05/2024 7:01 AM [facility] MPV 10.1 7.8 - 11.4 fL 08/05/2024 7:01 AM [facility] Neutrophil % 70.0 41.0 - 74.0 % 08/05/2024 7:01 AM [facility] Lymphocyte % 13.8(L) 17.0 - 47.0 % 08/05/2024 7:01 AM [facility] Monocyte % 11.7(H) 3.0 - 11.0 % 08/05/2024 7:01 AM [facility] Eosinophil % 3.7 0.0 - 7.0 % 08/05/2024 7:01 AM [facility] Basophil % 0.4 0.0 - 1.6 % 08/05/2024 7:01 AM [facility] Immature Granulocytes % 0.4 0.0 - 1.0 % 08/05/2024 7:01 AM [facility] Neutrophil Absolute 4.76 1.60 - 7.50 x10E9/L 08/05/2024 7:01 AM [facility] Lymphocyte Absolute 0.94(L) 1.00 - 4.40 x10E9/L 08/05/2024 7:01 AM [facility] Monocyte Absolute 0.80 0.15 - 1.00 x10E9/L 08/05/2024 7:01 AM [facility] Eosinophil Absolute 0.25 0.00 - 0.60 x10E9/L 08/05/2024 7:01 AM [facility] Basophil Absolute 0.03 0.00 - 0.13 x10E9/L 08/05/2024 7:01 AM [facility] Blood BLOOD SPECIMEN / Unknown Venipuncture / Unknown 08/05/2024 6:53 AM M[employer]OR[employer] LEAD TEACHER 08/05/2024 6:57 AM M[employer]ESSORI LEAD TEACHER Miguel Angel Mccain MD LAB - HEMATOLOGY ORD ERABLES [facility] [address] [place] [address] * URIC ACID URINE TIMED (08/04/2024 1:55 PM M[employer]ESSORI LEAD TEACHER) Uric Acid 24 Hour Urine 205.0 142.3 - 713.2 mg/24 hr 08/06/2024 11:10 AM MONTESSORI LEAD TEACHER [facility] ([facility]) Uric Acid Urine 20.5 Not Estab. mg/dL 08/06/2024 11:10 AM [facility] ([facility]) Urine TIMED URINE SPECIMEN / Unknown Timed Urine Volume Measurement / Unknown 08/04/2024 1:55 PM M[employer]ORI LEAD TEACHER 08/04/2024 2:02 PM MONTESSORI LEAD TEACHER Narrative [facility] ([facility]) - 08/06/2024 11:10 AM MONTESSORI LEAD TEACHER Performed at: 01 - [address] [id number] Dispute Resolution Specialist: El Sood PhD, Phone: [phone] Pete Olmos MD LAB - URINE CHEMISTR Y ORDERABLES Performing Organization Address City/[facility]/ZIP Co de Phone Number [facility] ([facility]) [address] [place] [address] * PROTEIN URINE TIMED QUANTITATIVE (08/04/2024 1:55 PM MONTESSORI LEAD TEACHER) Volume 24 Hour Urine 1,000 mL 08/04/2024 2:25 PM MONTESSORI LEAD TEACHER [facility] Collection Time Hours 24 hrs 08/04/2024 2:25 PM MONTESSORI LEAD TEACHER [facility] Protein 24 Hour Urine 72 <300 mg/24hr 08/04/2024 2:25 PM MONTESSORI LEAD TEACHER [facility] Protein Urine 7.2 <11.9 mg/dL 08/04/2024 2:25 PM MONTESSORI LEAD TEACHER [facility] Urine TIMED URINE SPECIMEN / Unknown Timed Urine Volume Measurement / Unknown 08/04/2024 1:55 PM MONTESSORI LEAD TEACHER 08/04/2024 2:02 PM MONTESSORI LEAD TEACHER Pete Olmos MD LAB - URINE CHEMISTR Y ORDERABLES [facility] [address] [place] [address] * CREATININE CLEARANCE URINE TIMED + BLOOD (08/04/2024 1:55 PM MONTESSORI LEAD TEACHER) Volume 24 Hour Urine 1,000 mL 08/04/2024 2:28 PM [facility] Collection Time Hours 24 hrs 08/04/2024 2:28 PM [facility] Height Inches 65 inches 08/04/2024 2:28 PM [facility] Weight in Pounds 160 pounds 08/04/2024 2:28 PM [facility] Surface Area 1.80 08/04/2024 2:28 PM [facility] Creatinine 0.81 0.57 - 1.11 mg/dL 08/04/2024 2:28 PM [facility] Creatinine Urine 82.74 mg/dL 08/04/2024 2:28 PM [facility] Creatinine 24 Hour Urine 827 710 - 1,650 mg/24hr 08/04/2024 2:28 PM [facility] Creatinine Clearance 68 66 - 165 mL/min/1.73 m2 08/04/2024 2:28 PM [facility] Urine TIMED URINE SPECIMEN / Unknown Timed Urine Volume Measurement / Unknown 08/04/2024 1:55 PM MONTESSORI LEAD TEACHER 08/04/2024 2:02 PM [facility] Pete Olmos MD LAB - URINE CHEMISTR Y ORDERABLES [facility] [address] [place] [address] * (ABNORMAL) CALCIUM URINE TIMED (08/04/2024 1:55 PM [facility]) Calcium Random Urine <2.0 Not Established mg/dL 08/04/2024 7:00 PM [facility] Collection Time Timed Urine 24 Hrs 08/04/2024 7:00 PM [facility] Calcium 24 Hour Urine <20(L) 50 - 300 mg/24 hrs 08/04/2024 7:00 PM [facility] Comment:Unable to calculate excretion rate because the analyte concentration is outside the instrument measuring range. Volume Timed Urine 1,000 mL 08/04/2024 7:00 PM [facility] Urine TIMED URINE SPECIMEN / Unknown Timed Urine Volume Measurement / Unknown 08/04/2024 1:55 PM M[employer]ESSORI LEAD TEACHER 08/04/2024 2:02 PM M[employer]ESSORI LEAD TEACH[employer] Pete Olmos MD LAB - URINE CHEMISTR Y ORDERABLES [facility] [address] [place] [address], [facility] [phone] * (ABNORMAL) URINALYSIS REFLEX TO MICROSCOPIC NO CULTURE (08/03/2024 12:49 PM [employer]) Color UA Yellow Yellow, Straw 08/03/2024 1:30 PM [employer] Clarity UA Clear Clear 08/03/2024 1:30 PM [employer] Glucose UA Normal Normal 08/03/2024 1:30 PM [employer] Bilirubin UA Negative Negative 08/03/2024 1:30 PM [employer] Ketone UA Negative Negative 08/03/2024 1:30 PM [employer] [facility] Specific [place] UA 1.013 1.005 - 1.030 08/03/2024 1:30 PM [employer] Blood UA Negative Negative 08/03/2024 1:30 PM [employer] [facility] pH UA 7.5 5.0 - 9.0 pH 08/03/2024 1:30 PM [employer] [facility] Protein UA Negative Negative 08/03/2024 1:30 PM [employer] Urobilinogen UA Normal Normal mg/dL 08/03/2024 1:30 PM [employer] [facility] Nitrite UA Negative Negative 08/03/2024 1:30 PM [employer] [facility] Leukocyte UA 75 JAQUI/uL(A) Negative 08/03/2024 1:30 PM [employer] [facility] RBC UA 0-2 0 - 5 # /hpf 08/03/2024 1:30 PM [employer] [facility] WBC UA 6-10(A) 0 - 5 # /hpf 08/03/2024 1:30 PM [employer] [facility] Bacteria UA Trace(A) None Seen 08/03/2024 1:30 PM [employer] [facility] Squamous Epithelial Cells 0-2 0 - 5 /hpf 08/03/2024 1:30 PM [employer] [facility] Budding Yeast Few(A) None seen /hpf 08/03/2024 1:30 PM [employer] [facility] Urine URINE SPECIMEN OBTAINED BY CLEAN CATCH PROCEDURE / Unknown Collection / Unknown 08/03/2024 12:49 PM [employer] 08/03/2024 12:53 PM [employer] Narrative [facility] - 08/03/2024 1:30 PM [employer] Pete Olmos MD LAB - URINALYSIS ORD ERABLES [facility] [address] [place] [address] * XR Lumbar Spine 2 or 3Vw (08/02/2024 2:10 PM [employer]) Anatomical Region Laterality Modality Spine Computed Radiogr aphy 08/02/2024 2:26 PM [employer] Narrative 08/02/2024 2:29 PM [employer] EXAM: XR LUMBAR SPINE 2 OR 3VW [...] PTH INTACT W/O CALCIUM (08/02/2024 3:19 AM [employer]) PTH Intact 275.2(H) 8.7 - 77.1 pg/mL 08/02/2024 4:05 AM [facility] Blood BLOOD SPECIMEN / Unknown Venipuncture / Unknown 08/02/2024 3:19 AM M[employer]ESSORI LEAD TEACHER 08/02/2024 3:30 AM [facility] Miguel Angel Mccain MD LAB - CHEMISTRY AIDEN KEVIN [facility] Organization Address City/State/ZIP Co de Phone Number [facility] [address] [place] [address] * (ABNORMAL) RENAL FUNCTION PANEL (08/02/2024 3:19 AM MONTESSORI LEAD TEACHER) Only the most recent of3 resultswithin the time period is included. Glucose 112(H) 70 - 99 mg/dL 08/02/2024 4:06 AM [facility] Sodium 140 136 - 145 mmol/L 08/02/2024 4:06 AM [facility] Potassium 3.1(L) 3.5 - 5.1 mmol/L 08/02/2024 4:06 AM [facility] Chloride 103 98 - 107 mmol/L 08/02/2024 4:06 AM [facility] CO2 28 22 - 29 mmol/L 08/02/2024 4:06 AM [facility] Calcium 5.8(LL) 8.4 - 10.4 mg/dL 08/02/2024 4:06 AM [facility] Anion Gap 9 6 - 16 mmol/L 08/02/2024 4:06 AM [facility] BUN 4(L) 7 - 26 mg/dL 08/02/2024 4:06 AM [facility] Creatinine 0.75 0.57 - 1.11 mg/dL 08/02/2024 4:06 AM [facility] Albumin 2.4(L) 3.4 - 5.0 gm/dL 08/02/2024 4:06 AM [facility] Phosphorus 2.4(L) 2.5 - 4.5 mg/dL 08/02/2024 4:06 AM [facility] eGFR by CKD-EPI 88(L) >=90 mL/min/1.7 3 m2 08/02/2024 4:06 AM [facility] Blood BLOOD SPECIMEN / Unknown Venipuncture / Unknown 08/02/2024 3:19 AM [employer] LEAD TEACHER 08/02/2024 3:30 AM [employer] LEAD TEACHER Miguel Angel Mccain MD LAB - CHEMISTRY AIDEN KEVIN Performing Organization Address [facility]/[place] de Phone Number [facility] [id number] [place] [address] * (ABNORMAL) CALCIUM BLOOD (08/01/2024 3:41 AM M[employer]ESSORI LEAD TEACHER) Pathologist [facility] Calcium 5.4(LL) 8.4 - 10.4 mg/dL 08/01/2024 4:21 AM M[employer]ESSOR[employer] LEAD TEACHER [facility] Blood BLOOD SPECIMEN / Unknown Venipuncture / Unknown 08/01/2024 3:41 AM M[employer]ESSORI LEAD TEACHER 08/01/2024 3:52 AM [employer] LEAD TEACHER Peewee Esquivel DO LAB - CHEMISTRY AIDEN KEVIN Performing Organization Address [facility] de Phone Number [facility] [address] [place] [address] * (ABNORMAL) HGB HCT PANEL (07/31/2024 7:39 AM MONTESSORI LEAD TEACHER) Only the most recent of4 resultswithin the time period is included. Pathologist [facility] Hemoglobin 8.3(L) 11.9 - 15.8 g/dL 07/31/2024 7:47 AM M[employer]ESSORI LEAD TEACHER [facility] Hematocrit 23.7(L) 34.8 - 46.1 % 07/31/2024 7:47 AM M[employer]ESSORI LEAD TEACHER [facility] Blood BLOOD SPECIMEN / Unknown Venipuncture / Unknown 07/31/2024 7:39 AM M[employer]ESSORI LEAD TEACHER 07/31/2024 7:43 AM MONTESSORI LEAD TEACHER Cruz Whitfield MD LAB - HEMATOLOGY OR DERABLES Performing Organization Address [facility]/[place] de Phone Number [facility] [address] [place] [address] * TRANSFUSE RED BLOOD CELL LEUKOREDUCED UNIT(S) (07/31/2024 5:59 AM MONTESSORI LEAD TEACHER) Peewee Esquivel DO NURSING - BLOOD PROD TRANSFUSION * PREPARE (CROSSMATCH) RBC UNIT(S), 1 Units (07/31/2024 3:35 AM MONTESSORI LEAD TEACHER) Only the most recent of2 resultswithin the time period is included. Pathologist [facility] Unit Description AS1 LR PRBC [facility] Unit ABO B [facility] Rh POS [facility] Product Number R02 [facility] Unit Donor # [id number] DP C BLOOD BANK Unit Status transfused DP BL OOD BANK Product Code [id number] [facility] Blood Type Barcode 7300 [facility] Expiration Date [id number] D [facility] Blood Bank BLOOD SPECIMEN / Unknown 07/28/2024 8:53 PM [employer] LEAD TEACHER Miguel Angel Mccain MD LAB - BLOOD BANK ORD ERABLES Performing Organization Address [facility]/[place] de Phone Number [facility] [address] [place] [address] * (ABNORMAL) VITAMIN D 25-HYDROXY (07/31/2024 2:15 AM MONTESSORI LEAD TEACHER) Pathologist [facility] Vitamin D, 25 Hydroxy 12.3(L) 30 - 80 ng/mL 07/31/2024 3:23 AM M[employer]ESSORI LEAD TEACHER [facility] Blood BLOOD SPECIMEN / Unknown Venipuncture / Unknown 07/31/2024 2:15 AM M[employer]ESSORI LEAD TEACHER 07/31/2024 2:22 AM MONTESSORI LEAD TEACHER Narrative [facility] - 07/31/2024 3:23 AM M[employer]ESSOR[employer] LEAD TEACHER Vitamin D Status: Deficiency <20 ng/mL Insufficiency 20-30 ng/mL Sufficiency 30-100 ng/mL Toxicity >100 ng/mL Miguel Angel Mccain MD LAB - CHEMISTRY ORDE RABUTE Performing Organization Address [facility] Co de Phone Number [facility] [address] [place] [address] * (ABNORMAL) FOLATE (07/31/2024 2:15 AM MONTESSORI LEAD TEACHER) Pathologist [facility] Folate 5.2(L) 7.0 - 31.4 ng/mL 07/31/2024 3:23 AM M[employer]ESSORI LEAD TEACHER [facility] Blood BLOOD SPECIMEN / Unknown Venipuncture / Unknown 07/31/2024 2:15 AM M[employer]ESSORI LEAD TEACHER 07/31/2024 2:22 AM M[employer] LEAD TEACHER Miguel Angel Mccain MD LAB - CHEMISTRY AIDEN KEVIN Performing Organization Address [facility] de Phone Number [facility] [id number] [place] [address] * (ABNORMAL) VITAMIN B12 (07/31/2024 2:15 AM MONTESSORI LEAD TEACHER) Pathologist [facility] Vitamin B12 >2,000(H) 213 - 816 pg/mL 07/31/2024 3:27 AM MONTESSORI LEAD TEACHER [facility] Blood BLOOD SPECIMEN / Unknown Venipuncture / Unknown 07/31/2024 2:15 AM MONTESSORI LEAD TEACHER 07/31/2024 2:22 AM M[employer]ESSOR[employer] LEAD TEACHER Miguel Angel Mccain MD LAB - CHEMISTRY AIDEN KEVIN Performing Organization Address [facility] de Phone Number [facility] [address] [place] [address] * (ABNORMAL) IRON + TRANSFERRIN PANEL (07/31/2024 2:15 AM MONTESSORI LEAD TEACHER) Pathologist [facility] Iron 84 40 - 150 ug/dL 07/31/2024 2:55 AM MONTESSORI LEAD TEACHER [facility] Transferrin 123(L) 174 - 382 mg/dL 07/31/2024 2:55 AM M[employer]ESSORI LEAD TEACHER [facility] TIBC Calculated 154(L) 240 - 450 ug/dL 07/31/2024 2:55 AM MONTESSORI LEAD TEACHER [facility] Iron Saturation % 55(H) 20 - 50 % 07/31/2024 2:55 AM M[employer]ESSORI LEAD TEACHER [facility] Blood BLOOD SPECIMEN / Unknown Venipuncture / Unknown 07/31/2024 2:15 AM M[employer]ESSORI LEAD TEACHER 07/31/2024 2:22 AM M[employer]ESSORI LEAD TEACHER Miguel Angel Mccain MD LAB - CHEMISTRY AIDEN KEVIN Performing Organization Address [facility]/[place] de Phone Number [facility] [address] [place] [address] * TRANSFUSE RED BLOOD CELL LEUKOREDUCED UNIT(S) (07/30/2024 7:41 AM MONTESSORI LEAD TEACHER) Peewee Esquivel DO NURSING - BLOOD PROD TRANSFUSION * BLOOD TYPE VERIFICATION (07/30/2024 2:06 AM MONTESSORI LEAD TEACHER) ABO Rh B POS 07/30/2024 4:2 5 AM MONTESSORI LEAD TEACHER [facility] Blood Bank BLOOD SPECIMEN / Unknown Venipuncture / Unknown 07/30/2024 2:06 AM M[employer]ESSORI LEAD TEACHER 07/30/2024 3:11 AM [employer]ESSORI LEAD TEACHER Yi Grier MD LAB - BLOOD BANK ORD ERABLES Performing Organization Address City/[facility] Co de Phone Number [facility] [id number] [place] [address] * (ABNORMAL) PT-INR (07/30/2024 2:06 AM MONTESSORI LEAD TEACHER) Only the most recent of2 resultswithin the time period is included. Pathologist [facility] PT 19.8(H) 12.1 - 14.8 sec 07/30/2024 3:12 AM MONTESSORI LEAD TEACHER [facility] Comment:This result represen ts a significant difference from this patient's most recent previous value. Clinical correlation is therefore recommended. INR 1.7(H) 0.9 - 1.1 07/30/2024 3:12 AM M[employer]ESSORI LEAD TEACHER [facility] Blood BLOOD SPECIMEN / Unknown Venipuncture / Unknown 07/30/2024 2:06 AM M[employer]ESSORI LEAD TEACHER 07/30/2024 2:27 AM MONTESSORI LEAD TEACHER Narrative [facility] - 07/30/2024 3:12 AM MONTESSORI LEAD TEACHER Conventional Warfarin Anticoagulant Therapy: INR Reference Range: 2.0-3.0 Intensive Warfarin Anticoagulant Therapy: INR Reference Range: 2.5-3.5 Yi Grier MD LAB - COAGULATION OR DERABLES Performing Organization Address City/[facility]/ZIP Co de Phone Number [facility] [address] [place] [address] * (ABNORMAL) CBC W/O DIFFERENTIAL (07/30/2024 2:06 AM MONTESSORI LEAD TEACHER) Only the most recent of3 resultswithin the time period is included. WBC 12.5(H) 4.0 - 10.7 x10E9/L 07/30/2024 2:30 AM [facility] RBC Count 2.06(L) 3.90 - 5.20 x10E12/L 07/30/2024 2:30 AM [facility] Hemoglobin 6.4(L) 11.9 - 15.8 g/dL 07/30/2024 2:30 AM [facility] Hematocrit 18.7(L) 34.8 - 46.1 % 07/30/2024 2:30 AM [facility] MCV 90.8 80.0 - 98.0 fL 07/30/2024 2:30 AM [facility] MCH 31.1 26.7 - 33.6 pg 07/30/2024 2:30 AM [facility] MCHC 34.2 31.7 - 36.3 g/dL 07/30/2024 2:30 AM [facility] RDW-CV 18.1(H) 11.3 - 14.8 % 07/30/2024 2:30 AM [facility] Platelet Count 161 150 - 420 x10E9/L 07/30/2024 2:30 AM [facility] MPV 10.0 7.8 - 11.4 fL 07/30/2024 2:30 AM [facility] Blood BLOOD SPECIMEN / Unknown Venipuncture / Unknown 07/30/2024 2:06 AM [employer] LEAD TEACHER 07/30/2024 2:27 AM [employer] LEAD TEACHER Yi Grier MD LAB - HEMATOLOGY ORD ERABLES [facility] [address] [place] [address] * US ABDOMEN LIMITED (RUQ) (07/29/2024 2:29 PM MONTESSORI LEAD TEACHER) Anatomical Region Laterality Modality Abdomen Ultrasound 07/29/2024 3:34 PM [employer]ESSORI LEAD TEACHER Impressions 07/30/2024 10:05 AM [employer]ESSORI LEAD TEACHER IMPRESSION: 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 Hepatic steatosis with a mass right lobe most consistent with focal fatty sparing. Lack of ability to compare to the outside images result in decreased sensitivity. > Interpreting Provider: Kameron Sprague MD on 07/30/2024 10:05 AM Narrative 07/30/2024 10:05 AM [employer]ESSORI LEAD TEACHER PROCEDURE: US ABDOMEN LIMITED, DATE/TIME OF EXAM: 07/29/2024 2:29 PM, LOCATION [facility] INDICATION: K92.1: Melena ADDITIONAL CLINICAL INFORMATION: [...] DATE/TIME OF EXAM: 07/29/2024 2:29 PM, LOCATION [facility] INDICATION: K92.1: Melena ADDITIONAL CLINICAL INFORMATION: [...] MD ORDERABLES * EGD (07/29/2024 6:57 AM M[employer]ESSORI LEAD TEACHER) Report Endoscopy POC _ Patient Name: Sarahy Rodriguez Procedure Date: 07/29/2024 6:57 AM Date of : 1960 Admit Type: Inpatient Age: 64 Gender: Female Attending MD: Cathleen Estrada MD, [id number] _ Procedure: Upper GI endoscopy Indications: Melena [...] GI notes Procedure Code(s): --- Professional --- 16151, Esophagogastroduoden oscopy, flexible, transoral; diagnostic, including collection of specimen(s) by brushing or washing, when performed (separate procedure) --- Technical --- 25585, Esophagogastroduoden oscopy, flexible, transoral; diagnostic, including collection [...] states K92.1, Melena (includes Hematochezia) CPT copyright 202 [employer]. All rights reserved. The codes documented in this report are preliminary and upon custom home installer review may be revised to meet current compliance requirements. Cathleen Estrada MD 07/29/2024 9:00:40 AM Number of Addenda: 0 Note Initiated On: 07/29/2024 6:57 AM [facility] 07/29/2024 6:57 AM MONTESSORI LEAD TEACHER Narrative Procedure Note Cathleen Estrada MD - [...] GI PROCEDURE ORDERAB LES Performing Organization Address [facility] Co de Phone Number [facility] [place] [address] * CULTURE BLOOD (07/28/2024 10:03 PM MONTESSORI LEAD TEACHER) Only the most recent of2 resultswithin the time period is included. Culture No growth day 5 LINO 08/03/2024 1:30 AM MONTESSORI LEAD TEACHER [facility] Blood PERIPHERAL BLOOD / Unknown Venipuncture / Unknown 07/28/2024 10:03 PM M[employer]ESSORI LEAD TEACHER 07/28/2024 10:07 PM M[employer]ESSORI LEAD TEACHER Fabio Santos MD LAB - MICROBIOLOGY O RDERABLES Performing Organization Address [facility] Co de Phone Number [facility] [address] [place] [address], [facility] [phone] * TYPE + SCREEN PANEL (07/28/2024 6:52 PM MONTESSORI LEAD TEACHER) ABO Rh B POS 07/28/2024 9:52 PM MONTESSORI LEAD TEACHER [facility] Comment:No history; collect retype. Antibody Screen NEG 9:52 PM MONTESSORI LEAD TEACHER [facility] Blood Bank BLOOD SPECIMEN / Unknown Venipuncture / Unknown 07/28/2024 6:52 PM MONTESSORI LEAD TEACHER 07/28/2024 8:53 PM MONTESSORI LEAD TEACHER Fabio Santos MD LAB - BLOOD BANK ORD ERABLES Performing Organization Address [facility] Co de Phone Number [facility] [address] [place] [address], [facility] [phone] from Last 3 Months Advance Directives Documents on File Type Date Recorded Patient Mounter Clarinets Expl anation Adv Directive/Living Will/POA 08/08/2024 10:51 PM Adv Directive/Living Will/POA 08/01/2024 8:23 PM Adv Directive/Living Will/POA 07/31/2024 7:48 PM * Full Code (Latest Code Status on File) Date Activated Date Inactivated Comments 07/28/2024 3:11 PM 08/07/2024 5:49 PM Care Teams Incinerator Plant Supervisor Relationship Specialty Start Date End Date Priyank Zepeda MD [address] [place] [address] PCP - General 02/23/22
--- OUTSIDE RECORDS SUMMARY | 2024-08-14 07:30 | XMS_ITS | Clinical Summary ---
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 [place] [address] PCP - General 03/11/02
--- OUTSIDE RECORDS SUMMARY | 2024-08-14 07:30 | XMS_ITS | Referral Summary ---
Author Organization [facility] Address [address] [place] [address] Care Team Providers Care Priming Machine Operator Name Role Phone Priyank Zepeda MD Primary Care Provider [phone] Source Comments [facility],non-owned Affiliates and Associated Physician Practices is amultiple site organization consisting of ambulatory clinics and hospital sitesin [place], [place], [place] and [place]. This disclosure is being madepursuant to the Care Everywhere program and may not contain all information available regarding this patient. Last updated 18.[facility] Encounters Date Type Department Care Team Description 07/28/2024 2:19 PM VETERINARY VIRUS SERUM INSPECTOR - 08/07/2024 4:44 PM VETERINARY VIRUS SERUM INSPECTOR Hospital Encounter [facility] 5N Pulmonary Med [address] [place] [address] [phone] Yi Grier MD Fatima, Noor E, MD Zhu, He, MD Kumar, Hanesh, MD Sampath, Roshni, MD Hospitalist Discharge Disposition: Home or Self Care 07/29/2024 8:42 AM VETERINARY VIRUS SERUM INSPECTOR Anesthesia Event [facility] [address] [place] [address] [phone] Bozena Osullivan, Mary Ryan, HOSPITALIST PROGRAM DIRECTOR-MEDICAL REVIEWER 07/29/2024 8:30 AM VETERINARY VIRUS SERUM INSPECTOR - 07/29/2024 9:00 AM VETERINARY VIRUS SERUM INSPECTOR Surgery [facility] [address] [place] [id number] Cathleen Estrada MD ESOPHAGOGASTRODUODENOSCOPY (EGD) DIAGNOSTIC [...] 5 Active Cholecalciferol (vitamin D3) 1.25 MG (59859 UT) capsule Take 1 (one) capsule by mouth every 7 days 5 capsule 5 Active furosemide (Lasix) 40 MG tablet Take 1 (one) tablet by mouth once daily 30 tablet 5 Active Calcium Carbonate Antacid (calcium carbonate, 500 mg elemental Ca/5 mL,) 1250 MG/5ML suspension Take 10 mL by mouth 3 times daily with meals 473 mL 1 5 Active pancrelipase (Creon 24,000) 03197-41642 units capsule Take 1 (one) capsule by [...] 5 08/08/19 25 Discontinued pancrelipase (Creon 24,000) 70630-08987 units capsule Take 1 (one) capsule by mouth 3 times daily with meals 90 capsule 5 08/08/19 25 Discontinued calcitriol (Rocaltrol) 0.5 MCG capsule Take 2 (two) capsules by mouth 3 times daily 180 capsule 5 08/08/19 25 Discontinued Active Problems Problem Noted Date Diagnosed Date Back pain 08/02/2024 Colitis 07/28/2024 Gastrointestinal hemorrhage with melena 07/28/19 Immunizations Name Administration Dates Next Due COVID Bubble & Balm 12+YR 30MCG/0.3mL 03/19/2024 INFLUENZA VACCINE, CELL CULT [...] medical care, and heating? Somewhat hard 07/28/2024 [facility] [place] [facility] Occupat ional [facility] - Occupational Stress [...] any time in the past 12 m [facility], were you homeless or living in a fdc (including now)? No 07/28/2024 Sex and Gender Information Value Date Recorded Sex Assigned at Not on file Gender Identity Not on file Sexual Orientation Not on file Last Filed Vital Signs Vital Sign Reading Time Taken Comments Blood Pressure 112/78 08/07/2024 2:44 PM VETERINARY VIRUS SERUM INSPECTOR Pulse 93 08/07/2024 2:44 PM VETERINARY VIRUS SERUM INSPECTOR Temperature 37.5 C (99.5 F) 08/07/2024 11:33 AM VETERINARY VIRUS SERUM INSPECTOR Respiratory Rate 18 08/07/2024 11:3 3 AM VETERINARY VIRUS SERUM INSPECTOR Oxygen Saturation 97% 08/07/2024 2:44 PM VETERINARY VIRUS SERUM INSPECTOR Inhaled Oxygen Concentration - - Weight 87.5 kg (192 lb 14.4 oz) 025 12:04 AM VETERINARY VIRUS SERUM INSPECTOR Height 165.1 cm (5' 5 ) 07/28/2024 4:01 PM VETERINARY VIRUS SERUM INSPECTOR Body Mass Index 32.1 07/28/2024 4:01 PM VETERINARY VIRUS SERUM INSPECTOR Functional Status Functional Status Response Date of [...] CARDIAC RHYTHM STRIP ORDER 08/08/2024 11:03 PM VETERINARY VIRUS SERUM INSPECTOR APHERESIS/TRANSFUSIO N ORDER 08/08/2024 11:03 PM VETERINARY VIRUS SERUM INSPECTOR B-TYPE NATRIURETIC PEPTIDE AM Draw 08/07/2024 1:59 AM VETERINARY VIRUS SERUM INSPECTOR COMPREHENSIVE METABOLIC PANEL AM Draw 08/07/2024 1:59 AM VETERINARY VIRUS SERUM INSPECTOR VAS BILATERAL VENOUS DUPLEX LE PENDING DISCHARGE 08/06/2024 2:30 PM VETERINARY VIRUS SERUM INSPECTOR Bilateral leg edema MAGNESIUM BLOOD Routine 08/06/2024 6:07 AM VETERINARY VIRUS SERUM INSPECTOR BASIC METABOLIC PANEL (CALCIUM TOTAL) Routine 08/06/2024 6:07 AM VETERINARY VIRUS SERUM INSPECTOR PHOSPHORUS BLOOD Routine 08/06/2024 6:07 AM VETERINARY VIRUS SERUM INSPECTOR MRI LUMBAR SPINE WO CONTRAST Routine 08/05/2024 9:48 AM VETERINARY VIRUS SERUM INSPECTOR Acute midline low back pain without sciatica PHOSPHORUS BLOOD Routine 08/05/2024 6:53 AM VETERINARY VIRUS SERUM INSPECTOR COMPREHENSIVE METABOLIC PANEL AM Draw 08/05/2024 6:53 AM VETERINARY VIRUS SERUM INSPECTOR MAGNESIUM BLOOD AM Draw 08/05/2024 6:53 AM VETERINARY VIRUS SERUM INSPECTOR CBC W AUTO DIFFERENTIAL AM Draw 08/05/2024 6:53 AM VETERINARY VIRUS SERUM INSPECTOR PROTEIN URINE TIMED QUANTITATIVE Routine 08/04/2024 1:55 PM VETERINARY VIRUS SERUM INSPECTOR URIC ACID URINE TIMED Routine 08/04/2024 1:55 PM VETERINARY VIRUS SERUM INSPECTOR CREATININE CLEARANCE URINE TIMED + BLOOD Routine 08/04/2024 1:55 PM VETERINARY VIRUS SERUM INSPECTOR CALCIUM URINE TIMED Routine 08/04/2024 1 :55 PM VETERINARY VIRUS SERUM INSPECTOR COMPREHENSIVE METABOLIC PANEL AM Draw 08/04/2024 6:55 AM VETERINARY VIRUS SERUM INSPECTOR MAGNESIUM BLOOD AM Draw 08/04/2024 6:55 AM VETERINARY VIRUS SERUM INSPECTOR CBC W AUTO DIFFERENTIAL AM Draw 08/04/2024 6:55 AM VETERINARY VIRUS SERUM INSPECTOR URINALYSIS REFLEX TO MICROSCOPIC NO CULTURE Routine 08/03/2024 12:49 PM VETERINARY VIRUS SERUM INSPECTOR COMPREHENSIVE METABOLIC PANEL AM Draw 08/03/2024 9:26 AM VETERINARY VIRUS SERUM INSPECTOR MAGNESIUM BLOOD AM Draw 08/03/2024 9:26 AM VETERINARY VIRUS SERUM INSPECTOR CBC W AUTO DIFFERENTIAL AM Draw 08/03/2024 9:26 AM VETERINARY VIRUS SERUM INSPECTOR XR LUMBAR SPINE 2 OR 3VW Routine 08/02/2024 2:10 PM VETERINARY VIRUS SERUM INSPECTOR Acute midline low back pain without sciatica PTH INTACT W/O CALCIUM Routine 08/02/2024 3:19 AM VETERINARY VIRUS SERUM INSPECTOR MAGNESIUM BLOOD AM Draw 08/02/2024 3:19 AM VETERINARY VIRUS SERUM INSPECTOR RENAL FUNCTION PANEL AM Draw 08/02/2024 3:19 AM VETERINARY VIRUS SERUM INSPECTOR CBC W AUTO DIFFERENTIAL AM Draw 08/02/2024 3:19 AM VETERINARY VIRUS SERUM INSPECTOR CALCIUM BLOOD STAT 08/01/2024 3:41 AM VETERINARY VIRUS SERUM INSPECTOR MAGNESIUM BLOOD AM Draw 08/01/2024 1:20 AM VETERINARY VIRUS SERUM INSPECTOR RENAL FUNCTION PANEL AM Draw 08/01/2024 1:20 AM VETERINARY VIRUS SERUM INSPECTOR CBC W AUTO DIFFERENTIAL AM Draw 08/01/2024 1:20 AM VETERINARY VIRUS SERUM INSPECTOR HGB HCT PANEL Timed 07/31/2024 7:39 AM VETERINARY VIRUS SERUM INSPECTOR TRANSFUSE RED BLOOD CELL LEUKOREDUCED UNIT(S) Routine 07/31/2024 3:40 AM VETERINARY VIRUS SERUM INSPECTOR PREPARE RBC LEUKOREDUCED UNIT Routine 07/31/2024 3:35 AM VETERINARY VIRUS SERUM INSPECTOR MAGNESIUM BLOOD AM Draw 07/31/2024 2:15 AM VETERINARY VIRUS SERUM INSPECTOR RENAL FUNCTION PANEL AM Draw 07/31/2024 2:15 AM VETERINARY VIRUS SERUM INSPECTOR CBC W AUTO DIFFERENTIAL AM Draw 07/31/2024 2:15 AM VETERINARY VIRUS SERUM INSPECTOR VITAMIN D 25-HYDROXY AM Draw 07/31/2024 2:15 AM VETERINARY VIRUS SERUM INSPECTOR VITAMIN B12 AM Draw 07/31/2024 2:15 AM VETERINARY VIRUS SERUM INSPECTOR FOLATE Routine 07/31/2024 2:15 AM VETERINARY VIRUS SERUM INSPECTOR IRON + TRANSFERRIN PANEL Routine 07/31/2024 2:15 AM VETERINARY VIRUS SERUM INSPECTOR HGB HCT PANEL Timed 07/30/2024 10:03 AM VETERINARY VIRUS SERUM INSPECTOR TRANSFUSE RED BLOOD CELL LEUKOREDUCED UNIT(S) Routine 07/30/2024 5:20 AM VETERINARY VIRUS SERUM INSPECTOR PREPARE RBC LEUKOREDUCED UNIT Routine 07/30/2024 5:15 AM VETERINARY VIRUS SERUM INSPECTOR BLOOD TYPE VERIFICATION Routine 07/30/2024 2:06 AM VETERINARY VIRUS SERUM INSPECTOR CBC W/O DIFFERENTIAL AM Draw 07/30/2024 2:06 AM VETERINARY VIRUS SERUM INSPECTOR PT-INR AM Draw 07/30/2024 2:06 AM VETERINARY VIRUS SERUM INSPECTOR BASIC METABOLIC PANEL (CALCIUM TOTAL) AM Draw 07/30/2024 2:06 AM VETERINARY VIRUS SERUM INSPECTOR HGB HCT PANEL Timed 07/29/2024 9:08 PM VETERINARY VIRUS SERUM INSPECTOR US ABDOMEN LIMITED Routine 07/29/2024 2: 29 PM VETERINARY VIRUS SERUM INSPECTOR Gastrointestinal hemorrhage with melena HGB HCT PANEL Routine 07/29/2024 10:19 AM VETERINARY VIRUS SERUM INSPECTOR PT-INR AM Draw 07/29/2024 10:19 AM VETERINARY VIRUS SERUM INSPECTOR AR ED EGD FLEX TRANSORAL DX 07/29/2024 8:30 AM VETERINARY VIRUS SERUM INSPECTOR EGD Routine 07/29/2024 6:57 AM VETERINARY VIRUS SERUM INSPECTOR CBC W/O DIFFERENTIAL Routine 07/29/2024 6:42 AM VETERINARY VIRUS SERUM INSPECTOR COMPREHENSIVE METABOLIC PANEL Routine 07/29/2024 6:42 AM VETERINARY VIRUS SERUM INSPECTOR MAGNESIUM BLOOD Routine 07/29/2024 6:42 AM VETERINARY VIRUS SERUM INSPECTOR PHOSPHORUS BLOOD Routine 07/29/2024 6:42 AM VETERINARY VIRUS SERUM INSPECTOR CULTURE BLOOD Timed 07/28/2024 10:03 PM VETERINARY VIRUS SERUM INSPECTOR CULTURE BLOOD Timed 07/28/2024 8:16 PM VETERINARY VIRUS SERUM INSPECTOR TYPE + SCREEN PANEL Routine 07/28/2024 6 :52 PM VETERINARY VIRUS SERUM INSPECTOR COMPREHENSIVE METABOLIC PANEL STAT 07/28/2024 5:25 PM VETERINARY VIRUS SERUM INSPECTOR CBC W/O DIFFERENTIAL STAT 07/28/2024 5:25 PM VETERINARY VIRUS SERUM INSPECTOR from Last 3 Months Results * CARDIAC RHYTHM STRIP ORDER (08/08/2024 11:03 PM VETERINARY VIRUS SERUM INSPECTOR) Narrative 08/08/2024 11:03 PM VETERINARY VIRUS SERUM INSPECTOR Ordered by an unspecified provider. Scanned Document CARDIAC SERVICES ORD ERABLES * APHERESIS/TRANSFUSION ORDER (08/08/2024 11:03 PM VETERINARY VIRUS SERUM INSPECTOR) Narrative 08/08/2024 11:03 PM VETERINARY VIRUS SERUM INSPECTOR Ordered by an unspecified provider. Scanned Document NURSING - VITAL SIGN S AND ASSESSMENT * B-TYPE NATRIURETIC PEPTIDE (08/07/2024 1:59 AM VETERINARY VIRUS SERUM INSPECTOR) BNP 35 <=100 pg/mL 08/07/2024 2:52 AM [facility] Blood BLOOD SPECIMEN / Unknown Venipuncture / Unknown 08/07/2024 1:59 AM VETERINARY VIRUS SERUM INSPECTOR 08/07/2024 2:19 AM VETERINARY VIRUS SERUM INSPECTOR Chika Chew MD LAB - CHEMISTRY AIDEN KEVIN [facility] [address] [place] [address] * (ABNORMAL) COMPREHENSIVE METABOLIC PANEL (08/07/2024 1:59 AM VETERINARY VIRUS SERUM INSPECTOR) Only the most recent of6 resultswithin the time period is included. Glucose 97 70 - 99 mg/dL 08/07/2024 2:55 AM [facility] Sodium 136 136 - 145 mmol/L 08/07/2024 2:55 AM [facility] Potassium 3.9 3.5 - 5.1 mmol/L 08/07/2024 2:55 AM [facility] Chloride 104 98 - 107 mmol/L 08/07/2024 2:55 AM [facility] CO2 23 22 - 29 mmol/L 08/07/2024 2:55 AM [facility] Calcium 6.8(L) 8.4 - 10.4 mg/dL 08/07/2024 2:55 AM [facility] Anion Gap 9 6 - 16 mmol/L 08/07/2024 2:55 AM [facility] BUN 9 7 - 26 mg/dL 08/07/2024 2:55 AM [facility] Creatinine 0.95 0.57 - 1.11 mg/dL 08/07/2024 2:55 AM [facility] Alkaline Phosphatase 91 40 - 150 U/L 08/07/2024 2:55 AM [facility] ALT 21 0 - 55 U/L 08/07/2024 2:55 AM [facility] AST 28 5 - 34 U/L 08/07/2024 2:55 AM [facility] Protein Total 4.9(L) 6.4 - 8.3 gm/dL 08/07/2024 2:55 AM VETERINARY VIRUS SERUM INSPECTOR [facility] Albumin 2.1(L) 3.4 - 5.0 gm/dL 08/07/2024 2:55 AM VETERINARY VIRUS SERUM INSPECTOR [facility] Bilirubin Total 0.6 0.2 - 1.2 mg/dL 08/07/2024 2:55 AM VETERINARY VIRUS SERUM INSPECTOR [facility] eGFR by CKD-EPI 66(L) >=90 mL/min/1.7 3 m2 08/07/2024 2:55 AM VETERINARY VIRUS SERUM INSPECTOR [facility] Blood BLOOD SPECIMEN / Unknown Venipuncture / Unknown 08/07/2024 1:59 AM VETERINARY VIRUS SERUM INSPECTOR 08/07/2024 2:19 AM VETERINARY VIRUS SERUM INSPECTOR Chika Chew MD LAB - CHEMISTRY ORDE DORITA [facility] Organization Address City/State/[facility] Co de Phone Number [facility] [address] [place], [place] [phone] * VAS Bilateral Venous Duplex Le (08/06/2024 2:30 PM VETERINARY VIRUS SERUM INSPECTOR) Anatomical Region Laterality Modality Lower Extremity Ultrasound 08/06/2024 1:50 PM VETERINARY VIRUS SERUM INSPECTOR Narrative Procedure Note Jorge Barakat MD - 08/07/2024 [facility] [id number] [place] [id number] Lower Extremity Venous Ultrasound Report Pat.Name: SARAHY RODRIGUEZ Pat.ID: [id number] .Date: 08/06/2024 Exam Time: 1:50:00 PM Study Type:LE Venous Age: 1 1960,64Y Sex: FEMALE Sonogrphr: Binh Eldridge RVT Pat. Stat.:Inpatient Room: 511 ICD - 9: R60.0 CPT - 4: 68883 Reason for Study: Bilateral leg edema History / Clinical: CKD, Liver cirrhosis Procedures: Lower Extremity Venous - Bilateral Race: 1 Visit ID: [id number] ++++++++++++++++++++++++++++++++++++ SUMMARY: ++++++++++++++++++++++++++++++++++++ There is no evidence [...] METABOLIC PANEL (CALCIUM TOTAL) (08/06/2024 6:07 AM VETERINARY VIRUS SERUM INSPECTOR) Only the most recent of2 resultswithin the time period is included. Glucose 87 70 - 99 mg/dL 08/06/2024 8:46 AM [facility] Sodium 137 136 - 145 mmol/L 08/06/2024 8:46 AM [facility] Potassium 3.0(L) 3.5 - 5.1 mmol/L 08/06/2024 8:46 AM [facility] Chloride 103 98 - 107 mmol/L 08/06/2024 8:46 AM [facility] CO2 27 22 - 29 mmol/L 08/06/2024 8:46 AM [facility] Calcium 6.7(L) 8.4 - 10.4 mg/dL 08/06/2024 8:46 AM [facility] Anion Gap 7 6 - 16 mmol/L 08/06/2024 8:46 AM [facility] BUN 7 7 - 26 mg/dL 08/06/2024 8:46 AM [facility] Creatinine 0.81 0.57 - 1.11 mg/dL 08/06/2024 8:46 AM VETERINARY VIRUS SERUM INSPECTOR [facility] eGFR by CKD-EPI 81(L) >=90 mL/min/1.7 3 m2 08/06/2024 8:46 AM VETERINARY VIRUS SERUM INSPECTOR [facility] Blood BLOOD SPECIMEN / Unknown Venipuncture / Unknown 08/06/2024 6:07 AM VETERINARY VIRUS SERUM INSPECTOR 08/06/2024 6:11 AM VETERINARY VIRUS SERUM INSPECTOR Chika Chew MD LAB - CHEMISTRY ORDKyle KEVIN Performing Organization Address [facility] Co de Phone Number [facility] [phone] [place] [phone] * PHOSPHORUS BLOOD (08/06/2024 6:07 AM VETERINARY VIRUS SERUM INSPECTOR) Only the most recent of3 resultswithin the time period is included. Phosphorus 3.7 2.5 - 4.5 mg/dL 08/06/2024 6:27 AM VETERINARY VIRUS SERUM INSPECTOR [facility] Blood BLOOD SPECIMEN / Unknown Venipuncture / Unknown 08/06/2024 6:07 AM VETERINARY VIRUS SERUM INSPECTOR 08/06/2024 6:11 AM VETERINARY VIRUS SERUM INSPECTOR Miguel Angel Mccain MD LAB - CHEMISTRY ORDKyle KEVIN Performing Organization Address [facility] Co de Phone Number [facility] [phone] [place] [address] [phone] * MAGNESIUM BLOOD (08/06/2024 6:07 AM VETERINARY VIRUS SERUM INSPECTOR) Only the most recent of8 resultswithin the time period is included. Magnesium 1.7 1.6 - 2.6 mg/dL 08/06/2024 8:43 AM VETERINARY VIRUS SERUM INSPECTOR [facility] Blood BLOOD SPECIMEN / Unknown Venipuncture / Unknown 08/06/2024 6:07 AM VETERINARY VIRUS SERUM INSPECTOR 08/06/2024 6:11 AM VETERINARY VIRUS SERUM INSPECTOR Chika Chew MD LAB - CHEMISTRY AIDEN KEVIN Performing Organization Address [facility] Co de Phone Number [facility] [phone] [place] [address] [phone] * MRI Lumbar Spine Wo Contrast (08/05/2024 9:48 AM VETERINARY VIRUS SERUM INSPECTOR) Anatomical Region Laterality Modality Spine Magnetic Resonan ce 08/05/2024 9:51 AM VETERINARY VIRUS SERUM INSPECTOR Impressions 08/05/2024 11:53 AM VETERINARY VIRUS SERUM INSPECTOR IMPRESSION: Multilevel degenerative disc and joint disease. Mild foraminal narrowing at L3-L4 and L4-L5 levels. No canal narrowing seen. Minimal superior endplate compression at T12, associated with mild marrow edema, less than 25% loss of vertical height. Edited by Tressa Phillips on 08/05/2024 10:17 AM > Interpreting Provider: Stefani Zepeda MD on 08/05/2024 11:53 AM Narrative 08/05/2024 11:53 AM VETERINARY VIRUS SERUM INSPECTOR PROCEDURE: MRI LUMBAR SPINE WO CONTRAST DATE/TIME [...] CBC W AUTO DIFFERENTIAL (08/05/2024 6:53 AM VETERINARY VIRUS SERUM INSPECTOR) Only the most recent of6 resultswithin the time period is included. WBC 6.8 4.0 - 10.7 x10E9/L 08/05/2024 7:01 AM [facility] RBC Count 2.80(L) 3.90 - 5.20 x10E12/L 08/05/2024 7:01 AM [facility] Hemoglobin 8.6(L) 11.9 - 15.8 g/dL 08/05/2024 7:01 AM [facility] Hematocrit 26.3(L) 34.8 - 46.1 % 08/05/2024 7:01 AM [facility] MCV 93.9 80.0 - 98.0 fL 08/05/2024 7:01 AM [facility] MCH 30.7 26.7 - 33.6 pg 08/05/2024 7:01 AM [facility] MCHC 32.7 31.7 - 36.3 g/dL 08/05/2024 7:01 AM [facility] RDW-CV 17.6(H) 11.3 - 14.8 % 08/05/2024 7:01 AM [facility] Platelet Count 111(L) 150 - 420 x10E9/L 08/05/2024 7:01 AM [facility] MPV 10.1 7.8 - 11.4 fL 08/05/2024 7:01 AM [facility] Neutrophil % 70.0 41.0 - 74.0 % 08/05/2024 7:01 AM [facility] Lymphocyte % 13.8(L) 17.0 - 47.0 % 08/05/2024 7:01 AM [facility] Monocyte % 11.7(H) 3.0 - 11.0 % 08/05/2024 7:01 AM [facility] Eosinophil % 3.7 0.0 - 7.0 % 08/05/2024 7:01 AM [facility] Basophil % 0.4 0.0 - 1.6 % 08/05/2024 7:01 AM [facility] Immature Granulocytes % 0.4 0.0 - 1.0 % 08/05/2024 7:01 AM [facility] Neutrophil Absolute 4.76 1.60 - 7.50 x10E9/L 08/05/2024 7:01 AM [facility] Lymphocyte Absolute 0.94(L) 1.00 - 4.40 x10E9/L 08/05/2024 7:01 AM VETERINARY VIRUS SERUM INSPECTOR [facility] Monocyte Absolute 0.80 0.15 - 1.00 x10E9/L 08/05/2024 7:01 AM VETERINARY VIRUS SERUM INSPECTOR [facility] Eosinophil Absolute 0.25 0.00 - 0.60 x10E9/L 08/05/2024 7:01 AM VETERINARY VIRUS SERUM INSPECTOR [facility] Basophil Absolute 0.03 0.00 - 0.13 x10E9/L 08/05/2024 7:01 AM VETERINARY VIRUS SERUM INSPECTOR [facility] Blood BLOOD SPECIMEN / Unknown Venipuncture / Unknown 08/05/2024 6:53 AM VETERINARY VIRUS SERUM INSPECTOR 08/05/2024 6:57 AM VETERINARY VIRUS SERUM INSPECTOR Miguel Angel Mccain MD LAB - HEMATOLOGY ORD ERABLES [facility] [address] [place] [address] * URIC ACID URINE TIMED (08/04/2024 1:55 PM VETERINARY VIRUS SERUM INSPECTOR) Pathologist [facility] Uric Acid 24 Hour Urine 205.0 142.3 - 713.2 mg/24 hr 08/06/2024 11:10 AM VETERINARY VIRUS SERUM INSPECTOR [facility] ([facility]) Uric Acid Urine 20.5 Not Estab. mg/dL 08/06/2024 11:10 AM VETERINARY VIRUS SERUM INSPECTOR [facility] ([facility]) Urine TIMED URINE SPECIMEN / Unknown Timed Urine Volume Measurement / Unknown 08/04/2024 1:55 PM VETERINARY VIRUS SERUM INSPECTOR 08/04/2024 2:02 PM VETERINARY VIRUS SERUM INSPECTOR Narrative [facility] ([facility]) - 08/06/2024 11:10 AM VETERINARY VIRUS SERUM INSPECTOR Performed at: [address] [id number] Rail Washer: El Sood PhD, Phone: [phone] Pete Olmos MD LAB - URINE CHEMISTR Y ORDERABLES Performing Organization Address City/[facility]/ZIP Co de Phone Number [facility] ([facility]) [address] [place] [address] * PROTEIN URINE TIMED QUANTITATIVE (08/04/2024 1:55 PM VETERINARY VIRUS SERUM INSPECTOR) Volume 24 Hour Urine 1,000 mL 08/04/2024 2:25 PM VETERINARY VIRUS SERUM INSPECTOR [facility] Collection Time Hours 24 hrs 08/04/2024 2:25 PM [facility] Protein 24 Hour Urine 72 <300 mg/24hr 08/04/2024 2:25 PM VETERINARY VIRUS SERUM INSPECTOR [facility] Protein Urine 7.2 <11.9 mg/dL 08/04/2024 2:25 PM VETERINARY VIRUS SERUM INSPECTOR [facility] Urine TIMED URINE SPECIMEN / Unknown Timed Urine Volume Measurement / Unknown 08/04/2024 1:55 PM VETERINARY VIRUS SERUM INSPECTOR 08/04/2024 2:02 PM VETERINARY VIRUS SERUM INSPECTOR Pete Olmos MD LAB - URINE CHEMISTR Y ORDERABLES [facility] [address] [place], [place] [id number] * CREATININE CLEARANCE URINE TIMED + BLOOD (08/04/2024 1:55 PM [facility]) Volume 24 Hour Urine 1,000 mL 08/04/2024 2:28 PM [facility] Collection Time Hours 24 hrs 08/04/2024 2:28 PM [facility] Height Inches 65 inches 08/04/2024 2:28 PM [facility] Weight in Pounds 160 pounds 08/04/2024 2:28 PM [facility] Surface Area 1.80 08/04/2024 2:28 PM [facility] Creatinine 0.81 0.57 - 1.11 mg/dL 08/04/2024 2:28 PM [facility] Creatinine Urine 82.74 mg/dL 08/04/2024 2:28 PM [facility] Creatinine 24 Hour Urine 827 710 - 1,650 mg/24hr 08/04/2024 2:28 PM [facility] Creatinine Clearance 68 66 - 165 mL/min/1.73 m2 08/04/2024 2:28 PM [facility] Urine TIMED URINE SPECIMEN / Unknown Timed Urine Volume Measurement / Unknown 08/04/2024 1:55 PM [facility] 08/04/2024 2:02 PM [facility] [employer] Pete Olmos MD LAB - URINE CHEMISTR Y ORDERABLES [facility] [address] [place] [address] * (ABNORMAL) CALCIUM URINE TIMED (08/04/2024 1:55 PM [facility]) Calcium Random Urine <2.0 Not Established mg/dL 08/04/2024 7:00 PM [facility] Collection Time Timed Urine 24 Hrs 08/04/2024 7:00 PM [facility] Calcium 24 Hour Urine <20(L) 50 - 300 mg/24 hrs 08/04/2024 7:00 PM [facility] Comment:Unable to calculate excretion rate because the analyte concentration is outside the instrument measuring range. Volume Timed Urine 1,000 mL 08/04/2024 7:00 PM [facility] Urine TIMED URINE SPECIMEN / Unknown Timed Urine Volume Measurement / Unknown 08/04/2024 1:55 PM [facility] 08/04/2024 2:02 PM [facility] [employer] Pete Olmos MD LAB - URINE CHEMISTR Y ORDERABLES Performing Organization Address City/[facility]/ZIP Co de Phone Number [id number] [place] [address], [facility] [phone] * (ABNORMAL) URINALYSIS REFLEX TO MICROSCOPIC NO CULTURE (08/03/2024 12:49 PM [facility] [employer] [employer]) Color UA Yellow Yellow, Straw 08/03/2024 1:30 PM [facility] [employer] Clarity UA Clear Clear 08/03/2024 1:30 PM [facility] [employer] [facility] Glucose UA Normal Normal 08/03/2024 1:30 PM [facility] [employer] Bilirubin UA Negative Negative 08/03/2024 1:30 PM [facility] [employer] [facility] Ketone UA Negative Negative 08/03/2024 1:30 PM VETERINARY VIRUS SERUM INSPECTOR [facility] Specific Gifford UA 1.013 1.005 - 1.030 08/03/2024 1:30 PM VETERINARY VIRUS SERUM INSPECTOR [facility] Blood UA Negative Negative 08/03/2024 1:30 PM VETERINARY VIRUS SERUM INSPECTOR [facility] pH UA 7.5 5.0 - 9.0 pH 08/03/2024 1:30 PM VETERINARY VIRUS SERUM INSPECTOR [facility] Protein UA Negative Negative 08/03/2024 1:30 PM VETERINARY VIRUS SERUM INSPECTOR [facility] Urobilinogen UA Normal Normal mg/dL 08/03/2024 1:30 PM VETERINARY VIRUS SERUM INSPECTOR [facility] Nitrite UA Negative Negative 08/03/2024 1:30 PM VETERINARY VIRUS SERUM INSPECTOR [facility] Leukocyte UA 75 JAQUI/uL(A) Negative 08/03/2024 1:30 PM VETERINARY VIRUS SERUM INSPECTOR [facility] RBC UA 0-2 0 - 5 # /hpf 08/03/2024 1:30 PM VETERINARY VIRUS SERUM INSPECTOR [facility] WBC UA 6-10(A) 0 - 5 # /hpf 08/03/2024 1:30 PM VETERINARY VIRUS SERUM INSPECTOR [facility] Bacteria UA Trace(A) None Seen 08/03/2024 1:30 PM VETERINARY VIRUS SERUM INSPECTOR [facility] Squamous Epithelial Cells 0-2 0 - 5 /hpf 08/03/2024 1:30 PM VETERINARY VIRUS SERUM INSPECTOR [facility] Budding Yeast Few(A) None seen /hpf 08/03/2024 1:30 PM VETERINARY VIRUS SERUM INSPECTOR [facility] Urine URINE SPECIMEN OBTAINED BY CLEAN CATCH PROCEDURE / Unknown Collection / Unknown 08/03/2024 12:49 PM VETERINARY VIRUS SERUM INSPECTOR 08/03/2024 12:53 PM VETERINARY VIRUS SERUM INSPECTOR Narrative [facility] - 08/03/2024 1:30 PM VETERINARY VIRUS SERUM INSPECTOR Pete Olmos MD LAB - URINALYSIS ORD ERABLES [facility] [address] [place] [id number] * XR Lumbar Spine 2 or 3Vw (08/02/2024 2:10 PM VETERINARY VIRUS SERUM INSPECTOR) Anatomical Region Laterality Modality Spine Computed Radiogr aphy 08/02/2024 2:26 PM VETERINARY VIRUS SERUM INSPECTOR Narrative 08/02/2024 2:29 PM VETERINARY VIRUS SERUM INSPECTOR EXAM: XR LUMBAR SPINE 2 OR 3VW [...] PTH INTACT W/O CALCIUM (08/02/2024 3:19 AM VETERINARY VIRUS SERUM INSPECTOR) PTH Intact 275.2(H) 8.7 - 77.1 pg/mL 08/02/2024 4:05 AM VETERINARY VIRUS SERUM INSPECTOR [facility] Blood BLOOD SPECIMEN / Unknown Venipuncture / Unknown 08/02/2024 3:19 AM VETERINARY VIRUS SERUM INSPECTOR 08/02/2024 3:30 AM VETERINARY VIRUS SERUM INSPECTOR Miguel Angel Mccain MD [facility] Organization Address City/State/ZIP Co de Phone Number [facility] [address] [place] [address] * (ABNORMAL) RENAL FUNCTION PANEL (08/02/2024 3:19 AM VETERINARY VIRUS SERUM INSPECTOR) Only the most recent of3 resultswithin the time period is included. Glucose 112(H) 70 - 99 mg/dL 08/02/2024 4:06 AM VETERINARY VIRUS SERUM INSPECTOR [facility] Sodium 140 136 - 145 mmol/L 08/02/2024 4:06 AM VETERINARY VIRUS SERUM INSPECTOR [facility] Potassium 3.1(L) 3.5 - 5.1 mmol/L 08/02/2024 4:06 AM VETERINARY VIRUS SERUM INSPECTOR [facility] Chloride 103 98 - 107 mmol/L 08/02/2024 4:06 AM VETERINARY VIRUS SERUM INSPECTOR [facility] CO2 28 22 - 29 mmol/L 08/02/2024 4:06 AM VETERINARY VIRUS SERUM INSPECTOR [facility] Calcium 5.8(LL) 8.4 - 10.4 mg/dL 08/02/2024 4:06 AM [facility] Anion Gap 9 6 - 16 mmol/L 08/02/2024 4:06 AM [facility] BUN 4(L) 7 - 26 mg/dL 08/02/2024 4:06 AM [facility] Creatinine 0.75 0.57 - 1.11 mg/dL 08/02/2024 4:06 AM [facility] Albumin 2.4(L) 3.4 - 5.0 gm/dL 08/02/2024 4:06 AM [facility] Phosphorus 2.4(L) 2.5 - 4.5 mg/dL 08/02/2024 4:06 AM [facility] eGFR by CKD-EPI 88(L) >=90 mL/min/1.7 3 m2 08/02/2024 4:06 AM [facility] Blood BLOOD SPECIMEN / Unknown Venipuncture / Unknown 08/02/2024 3:19 AM VETERINARY VIRUS SERUM INSPECTOR 08/02/2024 3:30 AM VETERINARY VIRUS SERUM INSPECTOR Miguel Angel Mccain MD LAB - CHEMISTRY ORDE DORITA Performing Organization Address City/[facility]/ZIP Co de Phone Number [facility] [address] [place] [address] * (ABNORMAL) CALCIUM BLOOD (08/01/2024 3:41 AM VETERINARY VIRUS SERUM INSPECTOR) [facility] Calcium 5.4(LL) 8.4 - 10.4 mg/dL 08/01/2024 4:21 AM VETERINARY VIRUS SERUM INSPECTOR [facility] Blood BLOOD SPECIMEN / Unknown Venipuncture / Unknown 08/01/2024 3:41 AM VETERINARY VIRUS SERUM INSPECTOR 08/01/2024 3:52 AM VETERINARY VIRUS SERUM INSPECTOR Peewee Esquivel DO LAB - CHEMISTRY ORDE DORITA Performing Organization Address [facility] Co de Phone Number [facility] [address] [place] [address] * (ABNORMAL) HGB HCT PANEL (07/31/2024 7:39 AM VETERINARY VIRUS SERUM INSPECTOR) Only the most recent of4 resultswithin the time period is included. Pathologist [facility] Hemoglobin 8.3(L) 11.9 - 15.8 g/dL 07/31/2024 7:47 AM VETERINARY VIRUS SERUM INSPECTOR [facility] Hematocrit 23.7(L) 34.8 - 46.1 % 07/31/2024 7:47 AM VETERINARY VIRUS SERUM INSPECTOR [facility] Blood BLOOD SPECIMEN / Unknown Venipuncture / Unknown 07/31/2024 7:39 AM VETERINARY VIRUS SERUM INSPECTOR 07/31/2024 7:43 AM VETERINARY VIRUS SERUM INSPECTOR Cruz Whitfield MD LAB - HEMATOLOGY OR DERABLES Performing Organization Address City/[facility]/ZIP Co de Phone Number [facility] [address] [place] [address] * TRANSFUSE RED BLOOD CELL LEUKOREDUCED UNIT(S) (07/31/2024 5:59 AM VETERINARY VIRUS SERUM INSPECTOR) Peewee Esquivel DO NURSING - BLOOD PROD TRANSFUSION * PREPARE (CROSSMATCH) RBC UNIT(S), 1 Units (07/31/2024 3:35 AM VETERINARY VIRUS SERUM INSPECTOR) Only the most recent of2 resultswithin the time period is included. [facility] Unit Description AS1 LR PRBC [facility] Unit ABO B [facility] Unit Rh POS [facility] Product [facility] R02 [facility] Unit Donor # [id number] [facility] Unit Status transfused [facility] Product [facility] [id number] [facility] Blood Type Barcode 7300 [facility] Expiration Date [id number] D [facility] Blood Bank BLOOD SPECIMEN / Unknown 07/28/2024 8:53 PM VETERINARY VIRUS SERUM INSPECTOR Miguel Angel Mccain MD LAB - BLOOD BANK ORD ERABLES Performing Organization Address City/[facility]/ZIP Co de Phone Number [facility] [id number] [place] [address], [facility] [phone] * (ABNORMAL) VITAMIN D 25-HYDROXY (07/31/2024 2:15 AM VETERINARY VIRUS SERUM INSPECTOR) [facility] Vitamin D, 25 Hydroxy 12.3(L) 30 - 80 ng/mL 07/31/2024 3:23 AM VETERINARY VIRUS SERUM INSPECTOR [facility] Blood BLOOD SPECIMEN / Unknown Venipuncture / Unknown 07/31/2024 2:15 AM VETERINARY VIRUS SERUM INSPECTOR 07/31/2024 2:22 AM VETERINARY VIRUS SERUM INSPECTOR Narrative [facility] - 07/31/2024 3:23 AM VETERINARY VIRUS SERUM INSPECTOR Vitamin D Status: Deficiency <20 ng/mL Insufficiency 20-30 ng/mL Sufficiency 30-100 ng/mL Toxicity >100 ng/mL Miguel Angel Mccain MD LAB - CHEMISTRY AIDEN KEVIN Performing Organization Address City/[facility]/ZIP Co de Phone Number [facility] [id number] [place] [phone] * (ABNORMAL) FOLATE (07/31/2024 2:15 AM VETERINARY VIRUS SERUM INSPECTOR) Pathologist [facility] Folate 5.2(L) 7.0 - 31.4 ng/mL 07/31/2024 3:23 AM VETERINARY VIRUS SERUM INSPECTOR [facility] Blood BLOOD SPECIMEN / Unknown Venipuncture / Unknown 07/31/2024 2:15 AM VETERINARY VIRUS SERUM INSPECTOR 07/31/2024 2:22 AM VETERINARY VIRUS SERUM INSPECTOR Miguel Angel Mccain MD LAB - CHEMISTRY AIDEN KEVIN Performing Organization Address [facility] de Phone Number [facility] [id number] [place] [address] * (ABNORMAL) VITAMIN B12 (07/31/2024 2:15 AM VETERINARY VIRUS SERUM INSPECTOR) Pathologist [facility] Vitamin B12 >2,000(H) 213 - 816 pg/mL 07/31/2024 3:27 AM VETERINARY VIRUS SERUM INSPECTOR [facility] Blood BLOOD SPECIMEN / Unknown Venipuncture / Unknown 07/31/2024 2:15 AM VETERINARY VIRUS SERUM INSPECTOR 07/31/2024 2:22 AM VETERINARY VIRUS SERUM INSPECTOR Miguel Angel Mccain MD LAB - CHEMISTRY AIDEN KEVIN Performing Organization Address [facility] de Phone Number [facility] [id number] [place] [phone] * (ABNORMAL) IRON + TRANSFERRIN PANEL (07/31/2024 2:15 AM VETERINARY VIRUS SERUM INSPECTOR) Pathologist [facility] Iron 84 40 - 150 ug/dL 07/31/2024 2:55 AM VETERINARY VIRUS SERUM INSPECTOR [facility] Transferrin 123(L) 174 - 382 mg/dL 07/31/2024 2:55 AM VETERINARY VIRUS SERUM INSPECTOR [facility] TIBC Calculated 154(L) 240 - 450 ug/dL 07/31/2024 2:55 AM VETERINARY VIRUS SERUM INSPECTOR [facility] Iron Saturation % 55(H) 20 - 50 % 07/31/2024 2:55 AM VETERINARY VIRUS SERUM INSPECTOR [facility] Blood BLOOD SPECIMEN / Unknown Venipuncture / Unknown 07/31/2024 2:15 AM VETERINARY VIRUS SERUM INSPECTOR 07/31/2024 2:22 AM VETERINARY VIRUS SERUM INSPECTOR Miguel Angel Mccain MD LAB - CHEMISTRY AIDEN KEVIN Performing Organization Address [facility] Co de Phone Number [facility] [address] [place] [address] * TRANSFUSE RED BLOOD CELL LEUKOREDUCED UNIT(S) (07/30/2024 7:41 AM VETERINARY VIRUS SERUM INSPECTOR) Peewee Esquivel DO NURSING - BLOOD PROD TRANSFUSION * BLOOD TYPE VERIFICATION (07/30/2024 2:06 AM VETERINARY VIRUS SERUM INSPECTOR) Pathologist [facility] ABO Rh B POS 07/30/2024 4:2 5 AM VETERINARY VIRUS SERUM INSPECTOR [facility] Blood Bank BLOOD SPECIMEN / Unknown Venipuncture / Unknown 07/30/2024 2:06 AM VETERINARY VIRUS SERUM INSPECTOR 07/30/2024 3:11 AM VETERINARY VIRUS SERUM INSPECTOR Yi Grier MD LAB - BLOOD BANK JUJU WASSERMAN Performing Organization Address [facility] Co de Phone Number [facility] [address] [place], [place] [id number], [facility] [phone] * (ABNORMAL) PT-INR (07/30/2024 2:06 AM VETERINARY VIRUS SERUM INSPECTOR) Only the most recent of2 resultswithin the time period is included. Pathologist [facility] PT 19.8(H) 12.1 - 14.8 sec 07/30/2024 3:12 AM VETERINARY VIRUS SERUM INSPECTOR [facility] Comment:This result represen ts a significant difference from this patient's most recent previous value. Clinical correlation is therefore recommended. INR 1.7(H) 0.9 - 1.1 07/30/2024 3:12 AM [facility] Blood BLOOD SPECIMEN / Unknown Venipuncture / Unknown 07/30/2024 2:06 AM VETERINARY VIRUS SERUM INSPECTOR 07/30/2024 2:27 AM VETERINARY VIRUS SERUM INSPECTOR [facility] - 07/30/2024 3:12 AM VETERINARY VIRUS SERUM INSPECTOR Conventional Warfarin Anticoagulant Therapy: INR Reference Range: 2.0-3.0 Intensive Warfarin Anticoagulant Therapy: INR Reference Range: 2.5-3.5 Yi Grier MD LAB - COAGULATION OR DERABLES [facility] [address] [place] [address] * (ABNORMAL) CBC W/O DIFFERENTIAL (07/30/2024 2:06 AM [facility]) Only the most recent of3 resultswithin the time period is included. WBC 12.5(H) 4.0 - 10.7 x10E9/L 07/30/2024 2:30 AM [facility] RBC Count 2.06(L) 3.90 - 5.20 x10E12/L 07/30/2024 2:30 AM [facility] Hemoglobin 6.4(L) 11.9 - 15.8 g/dL 07/30/2024 2:30 AM [facility] Hematocrit 18.7(L) 34.8 - 46.1 % 07/30/2024 2:30 AM [facility] MCV 90.8 80.0 - 98.0 fL 07/30/2024 2:30 AM [facility] MCH 31.1 26.7 - 33.6 pg 07/30/2024 2:30 AM [facility] MCHC 34.2 31.7 - 36.3 g/dL 07/30/2024 2:30 AM [facility] RDW-CV 18.1(H) 11.3 - 14.8 % 07/30/2024 2:30 AM [facility] Platelet Count 161 150 - 420 x10E9/L 07/30/2024 2:30 AM [facility] MPV 10.0 7.8 - 11.4 fL 07/30/2024 2:30 AM VETERINARY VIRUS SERUM INSPECTOR [facility] Blood BLOOD SPECIMEN / Unknown Venipuncture / Unknown 07/30/2024 2:06 AM VETERINARY VIRUS SERUM INSPECTOR 07/30/2024 2:27 AM VETERINARY VIRUS SERUM INSPECTOR Yi Grier MD LAB - HEMATOLOGY ORD ERABLES 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 Hepatic steatosis with a mass right lobe most consistent with focal fatty sparing. Lack of ability to compare to the outside images result in decreased sensitivity. > Interpreting Provider: Kameron Sprague MD on 07/30/2024 10:05 AM Narrative 07/30/2024 10:05 AM VETERINARY VIRUS SERUM INSPECTOR PROCEDURE: US ABDOMEN LIMITED, DATE/TIME OF EXAM: 07/29/2024 2:29 PM, LOCATION [facility] INDICATION: K92.1: Melena ADDITIONAL CLINICAL [...] DATE/TIME OF EXAM: 07/29/2024 2:29 PM, LOCATION [facility] INDICATION: K92.1: Melena ADDITIONAL CLINICAL [...] US ORDERABLES * EGD (07/29/2024 6:57 AM VETERINARY VIRUS SERUM INSPECTOR) Report Endoscopy POC _ Patient Name: Sarahy Rodriguez Procedure Date: 07/29/2024 6:57 AM Date of : 1960 Admit Type: Inpatient Age: 64 Gender: Female Attending MD: Cathleen Estrada MD, [id number] _ Procedure: Upper GI endoscopy Indications: Melena [...] GI notes Procedure Code(s): --- Professional --- 22968, Esophagogastroduoden oscopy, flexible, transoral; diagnostic, including collection of specimen(s) by brushing or washing, when performed (separate procedure) --- Technical --- 16999, Esophagogastroduoden oscopy, flexible, transoral; diagnostic, including collection [...] K92.1, Melena (includes Hematochezia) CPT copyright 2020 [employer]. All rights reserved. The codes documented in this report are preliminary and upon skatesman review may be revised to meet current compliance requirements. Cathleen Estrada MD 07/29/2024 9:00:40 AM Number of Addenda: 0 Note Initiated On: 07/29/2024 6:57 AM [facility] 07/29/2024 6:57 AM VETERINARY VIRUS SERUM INSPECTOR Narrative Procedure Note Cathleen Estrada MD - [...] Ania Josue MD GI PROCEDURE ORDERAB LES [facility] [place] [address] * CULTURE BLOOD (07/28/2024 10:03 PM VETERINARY VIRUS SERUM INSPECTOR) Only the most recent of2 resultswithin the time period is included. Culture No growth day 5 LINO 08/03/2024 1:30 AM VETERINARY VIRUS SERUM INSPECTOR [facility] Blood PERIPHERAL BLOOD / Unknown Venipuncture / Unknown 07/28/2024 10:03 PM VETERINARY VIRUS SERUM INSPECTOR 07/28/2024 10:07 PM VETERINARY VIRUS SERUM INSPECTOR Fabio Santos MD LAB - MICROBIOLOGY O RDERABLES [facility] [address] [place] [address], [facility] [phone] * TYPE + SCREEN PANEL (07/28/2024 6:52 PM VETERINARY VIRUS SERUM INSPECTOR) ABO Rh B POS 07/28/2024 9:52 PM VETERINARY VIRUS SERUM INSPECTOR [facility] Comment:No history; collect retype. Antibody Screen NEG 9:52 PM VETERINARY VIRUS SERUM INSPECTOR [facility] Blood Bank BLOOD SPECIMEN / Unknown Venipuncture / Unknown 07/28/2024 6:52 PM VETERINARY VIRUS SERUM INSPECTOR 07/28/2024 8:53 PM VETERINARY VIRUS SERUM INSPECTOR Fabio Santos MD LAB - BLOOD BANK ORD ERABLES 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
--- OUTSIDE RECORDS SUMMARY | 2024-08-14 07:30 | XMS_ITS | Clinical Summary ---
Author Organization [facility] Facility Address [address] [address] Care Team Providers Care Concrete Block Mason Name Role Phone Priyank Zepeda MD Primary Care Provider [phone] Allergies Active Allergy Reactions Criticality Noted Date [...] mouth in the morning. 5 Active pancrelipase, Mxf-Pqhh-Xalx, (CREON) 76406-33541 units capsule Take 1 capsule by mouth in the morning and 1 capsule at noon and 1 capsule in the evening. Take with meals. 5 Active Cholecalciferol (Vitamin D3) 1.25 MG (91002 UT) capsule Take 50,000 Units by mouth in the morning and 50,000 Units in the evening. Active multivitamin-ir ou-qekgodaj-ljx ic acid (CENTRUM) chewable tablet Chew 1 [...] 25 Discontinu ed(Therapy completed) ergocalciferol 1.25 MG (80991 UT) capsule Take 50,000 Units by mouth [...] Department Care Team Description 05/22/2024 Documentation Only [facility] Evgeny. [address] [place] [address] Kristofer Ortiz MD from Last [...] CDT Respiratory Rate 18 05/15/2018 11:00 AM HIP HOP ARTIST Oxygen Saturation 96% 01/23/2024 1:26 PM CDT Inhaled Oxygen Concentration - - Weight 77.6 kg (171 lb) 01/23/2024 1:26 PM CDT Height 165.1 cm (5' 5 ) 01/23/2024 1:26 PM CDT Body Mass Index 28.46 01/23/2024 1:26 PM CDT Plan of Treatment Upcoming Encounters Date Type Department Care Team (Late st Contact Info) Description 10/22/2024 10:45 AM CDT Office Visit [facility] Evgeny. [address] [place] [address] Kristofer Ortiz MD [address] [place] [address] Health Maintenance Due Date Last Done Comments [...] patient's age to complete this topic Insurance [facility] Advance Directives Documents on File Type Date Recorded Patient Roller Hand Expl anation Power of Health Promotion Educator 10/25/2021 11:10 AM Othe r - POA Power of Health Promotion Educator 10/25/2021 11:10 AM Othe r - POA Care Teams Concrete Block Mason Relationship Specialty Start Date End Date Priyank Zepeda MD [address] [place] [address] PCP - General Internal Medicine 05/17/19
--- OUTSIDE RECORDS SUMMARY | 2024-08-14 07:30 | XMS_ITS | Patient Health Summary ---
Author Organization [facility] Address [address] [place] [address] Care Team Providers Care Field Liability Generalist Name Role Phone Priyank Zepeda MD Primary Care Provider [phone] Note from [facility],non-owned Affiliates and Associated Physician Practices is amultiple site organization consisting of ambulatory clinics and hospital sitesin [place], [place], [place] and [place]. This disclosure is being madepursuant to the Care Everywhere program and may not contain all information available regarding this patient. Last updated 18.[facility] Allergies * Adhesive Sensitivity(Itching) * Ciprofloxacin(Itching) * [...] nightly * Cholecalciferol (vitamin D3) 1.25 MG (23256 UT) capsule(Started 08/09/2024) Take 1 (one) capsule by mouth every 7 days * furosemide (Lasix) 40 MG tablet(Started 08/07/2024) Take 1 (one) tablet by mouth once daily * Calcium Carbonate Antacid (calcium carbonate, 500 mg elemental Ca/5 mL,) 1250 MG/5ML suspension(Started 08/07/2024) Take 10 mL by mouth 3 times daily with meals 1 refill by 08/07/2025 * pancrelipase (Creon 24,000) 27131-99611 units capsule(Started 08/07/2024) Take 1 (one) capsule [...] 3 times daily * pancrelipase (Creon 24,000) [id number] units capsule(Started 08/07/2024) (Discontinued) Take 1 (one) [...] medical care, and heating? Somewhat hard 07/28/2024 [facility] - [facility] [...] living in a [facility] (including now)? No 07/28/2024 Sex and Gender Information Value Date Recorded Sex Assigned at Not on file Gender Identity Not on file Sexual Orientation Not on file Last Filed Vital Signs Vital Sign Reading Time Taken Comments Blood Pressure 112/78 08/07/2024 2:44 PM SENIOR IT SECURITY ANALYST Pulse 93 08/07/2024 2:44 PM SENIOR IT SECURITY ANALYST Temperature 37.5 C (99.5 F) 08/07/2024 11:33 AM SENIOR IT SECURITY ANALYST Respiratory Rate 18 08/07/2024 11:3 3 AM SENIOR IT SECURITY ANALYST Oxygen Saturation 97% 08/07/2024 2:44 PM SENIOR IT SECURITY ANALYST Inhaled Oxygen Concentration - - Weight 87.5 kg (192 lb 14.4 oz) 025 12:04 AM SENIOR IT SECURITY ANALYST Height 165.1 cm (5' 5 ) 07/28/2024 4:01 PM SENIOR IT SECURITY ANALYST Body Mass Index 32.1 07/28/2024 4:01 PM SENIOR IT SECURITY ANALYST Procedures * CARDIAC RHYTHM STRIP ORDER(Performed 08/08/2024) [...] HCT PANEL(Performed 07/29/2024) * PT-INR(Performed 07/29/2024) * [place] ED EGD FLEX TRANSORAL DX(Performed 07/29/2024) * EGD(Performed 07/29/2024) * CBC W/O DIFFERENTIAL(Performed 07/29/2024) * COMPREHENSIVE METABOLIC PANEL(Performed 07/29/2024) * MAGNESIUM BLOOD(Performed 07/29/2024) * PHOSPHORUS BLOOD(Performed 07/29/2024) * CULTURE BLOOD(Performed 07/28/2024) * CULTURE BLOOD(Performed 07/28/2024) * TYPE + SCREEN PANEL(Performed 07/28/2024) * COMPREHENSIVE METABOLIC PANEL(Performed 07/28/2024) * CBC W/O DIFFERENTIAL(Performed 07/28/2024) Results * CARDIAC RHYTHM STRIP ORDER (08/08/2024 11:03 PM SENIOR IT SECURITY ANALYST) Narrative 08/08/2024 11:03 PM SENIOR IT SECURITY ANALYST Ordered by an unspecified provider. Scanned Document CARDIAC SERVICES ORD ERABLES * APHERESIS/TRANSFUSION ORDER (08/08/2024 11:03 PM SENIOR IT SECURITY ANALYST) Narrative 08/08/2024 11:03 PM SENIOR IT SECURITY ANALYST Ordered by an unspecified provider. Scanned Document NURSING - VITAL SIGN S AND ASSESSMENT * B-TYPE NATRIURETIC PEPTIDE (08/07/2024 1:59 AM SENIOR IT SECURITY ANALYST) [facility] BNP 35 <=100 pg/mL 08/07/2024 2:52 AM SENIOR IT SECURITY ANALYST [facility] Blood BLOOD SPECIMEN / Unknown Venipuncture / Unknown 08/07/2024 1:59 AM SENIOR IT SECURITY ANALYST 08/07/2024 2:19 AM SENIOR IT SECURITY ANALYST Chika Chew MD LAB - CHEMISTRY AIDEN KEVIN [facility] [address] [place] [address] * (ABNORMAL) COMPREHENSIVE METABOLIC PANEL (08/07/2024 1:59 AM SENIOR IT SECURITY ANALYST) Only the most recent of6 resultswithin the time period is included. [facility] Glucose 97 70 - 99 mg/dL 08/07/2024 2:55 AM SENIOR IT SECURITY ANALYST [facility] Sodium 136 136 - 145 mmol/L 08/07/2024 2:55 AM SENIOR IT SECURITY ANALYST [facility] Potassium 3.9 3.5 - 5.1 mmol/L 08/07/2024 2:55 AM [facility] Chloride 104 98 - 107 mmol/L 08/07/2024 2:55 AM SENIOR IT SECURITY ANALYST [facility] CO2 23 22 - 29 mmol/L 08/07/2024 2:55 AM SENIOR IT SECURITY ANALYST [facility] Calcium 6.8(L) 8.4 - 10.4 mg/dL 08/07/2024 2:55 AM SENIOR IT SECURITY ANALYST [facility] Anion Gap 9 6 - 16 mmol/L 08/07/2024 2:55 AM [facility] BUN 9 7 - 26 mg/dL 08/07/2024 2:55 AM [facility] Creatinine 0.95 0.57 - 1.11 mg/dL 08/07/2024 2:55 AM [facility] Alkaline Phosphatase 91 40 - 150 U/L 08/07/2024 2:55 AM [facility] ALT 21 0 - 55 U/L 08/07/2024 2:55 AM [facility] AST 28 5 - 34 U/L 08/07/2024 2:55 AM [facility] Protein Total 4.9(L) 6.4 - 8.3 gm/dL 08/07/2024 2:55 AM [facility] Albumin 2.1(L) 3.4 - 5.0 gm/dL 08/07/2024 2:55 AM [facility] Bilirubin Total 0.6 0.2 - 1.2 mg/dL 08/07/2024 2:55 AM [facility] eGFR by CKD-EPI 66(L) >=90 mL/min/1.7 3 m2 08/07/2024 2:55 AM [facility] Blood BLOOD SPECIMEN / Unknown Venipuncture / Unknown 08/07/2024 1:59 AM SENIOR IT SECURITY ANALYST 08/07/2024 2:19 AM SENIOR IT SECURITY ANALYST Chika Chew MD [facility] Organization Address City/State/ZIP Co de Phone Number [facility] [address] [place] [address] * VAS Bilateral Venous Duplex Le (08/06/2024 2:30 PM SENIOR IT SECURITY ANALYST) Anatomical Region Laterality Modality Lower Extremity Ultrasound 08/06/2024 1:50 PM SENIOR IT SECURITY ANALYST Narrative Procedure Note Jorge Barakat MD - 08/07/[address] [address] Lower Extremity Venous Ultrasound Report Pat.Name: SARAHY RODRIGUEZ Pat.ID: [id number] .Date: 08/06/2024 Exam Time: 1:50:00 PM Study Type:LE Venous Age: 1 1960,64Y Sex: FEMALE Sonogrphr: Binh Eldridge RVT Pat. Stat.:Inpatient Room: [facility] ICD - 9: R60.0 CPT - 4: 30028 Reason for Study: Bilateral leg edema History / Clinical: CKD, Liver cirrhosis Procedures: Lower Extremity Venous - Bilateral Race: 1 Visit ID: [id number] ++++++++++++++++++++++++++++++++++++ SUMMARY: ++++++++++++++++++++++++++++++++++++ There is no evidence [...] METABOLIC PANEL (CALCIUM TOTAL) (08/06/2024 6:07 AM SENIOR IT SECURITY ANALYST) Only the most recent of2 resultswithin the time period is included. [facility] Glucose 87 70 - 99 mg/dL 08/06/2024 8:46 AM SENIOR IT SECURITY ANALYST [facility] Sodium 137 136 - 145 mmol/L 08/06/2024 8:46 AM SENIOR IT SECURITY ANALYST [facility] Potassium 3.0(L) 3.5 - 5.1 mmol/L 08/06/2024 8:46 AM [facility] Chloride 103 98 - 107 mmol/L 08/06/2024 8:46 AM [facility] CO2 27 22 - 29 mmol/L 08/06/2024 8:46 AM [facility] Calcium 6.7(L) 8.4 - 10.4 mg/dL 08/06/2024 8:46 AM [facility] Anion Gap 7 6 - 16 mmol/L 08/06/2024 8:46 AM [facility] BUN 7 7 - 26 mg/dL 08/06/2024 8:46 AM [facility] Creatinine 0.81 0.57 - 1.11 mg/dL 08/06/2024 8:46 AM [facility] eGFR by CKD-EPI 81(L) >=90 mL/min/1.7 3 m2 08/06/2024 8:46 AM [facility] Blood BLOOD SPECIMEN / Unknown Venipuncture / Unknown 08/06/2024 6:07 AM SENIOR IT SECURITY ANALYST 08/06/2024 6:11 AM SENIOR IT SECURITY ANALYST Chika Chew MD LAB - CHEMISTRY ORDKyle KEVIN Performing Organization Address City/[facility]/ZIP Co de Phone Number [facility] [address] [place] [address] * PHOSPHORUS BLOOD (08/06/2024 6:07 AM SENIOR IT SECURITY ANALYST) Only the most recent of3 resultswithin the time period is included. Phosphorus 3.7 2.5 - 4.5 mg/dL 08/06/2024 6:27 AM [facility] Blood BLOOD SPECIMEN / Unknown Venipuncture / Unknown 08/06/2024 6:07 AM SENIOR IT SECURITY ANALYST 08/06/2024 6:11 AM SENIOR IT SECURITY ANALYST Miguel Angel Mccain MD LAB - CHEMISTRY ORDKyle KEVIN Performing Organization Address [facility]/ZIP Co de Phone Number [facility] [address] [place] [address] * MAGNESIUM BLOOD (08/06/2024 6:07 AM SENIOR IT SECURITY ANALYST) Only the most recent of8 resultswithin the time period is included. Magnesium 1.7 1.6 - 2.6 mg/dL 08/06/2024 8:43 AM SENIOR IT SECURITY ANALYST [facility] Blood BLOOD SPECIMEN / Unknown Venipuncture / Unknown 08/06/2024 6:07 AM SENIOR IT SECURITY ANALYST 08/06/2024 6:11 AM SENIOR IT SECURITY ANALYST Chika Chew MD LAB - CHEMISTRY AIDEN KEVIN [facility] [address] [place] [address] * MRI Lumbar Spine Wo Contrast (08/05/2024 9:48 AM SENIOR IT SECURITY ANALYST) Anatomical Region Laterality Modality Spine Magnetic Resonan ce 08/05/2024 9:51 AM SENIOR IT SECURITY ANALYST Impressions 08/05/2024 11:53 AM SENIOR IT SECURITY ANALYST IMPRESSION: Multilevel degenerative disc and joint disease. Mild foraminal narrowing at L3-L4 and L4-L5 levels. No canal narrowing seen. Minimal superior endplate compression at T12, associated with mild marrow edema, less than 25% loss of vertical height. Edited by Tressa Phillpis on 08/05/2024 10:17 AM > Interpreting Provider: Stefani Zepeda MD on 08/05/2024 11:53 AM Narrative 08/05/2024 11:53 AM SENIOR IT SECURITY ANALYST PROCEDURE: MRI LUMBAR SPINE WO CONTRAST DATE/TIME [...] CBC W AUTO DIFFERENTIAL (08/05/2024 6:53 AM SENIOR IT SECURITY ANALYST) Only the most recent of6 resultswithin the time period is included. WBC 6.8 4.0 - 10.7 x10E9/L 08/05/2024 7:01 AM [facility] RBC Count 2.80(L) 3.90 - 5.20 x10E12/L 08/05/2024 7:01 AM [facility] Hemoglobin 8.6(L) 11.9 - 15.8 g/dL 08/05/2024 7:01 AM [facility] Hematocrit 26.3(L) 34.8 - 46.1 % 08/05/2024 7:01 AM [facility] MCV 93.9 80.0 - 98.0 fL 08/05/2024 7:01 AM [facility] MCH 30.7 26.7 - 33.6 pg 08/05/2024 7:01 AM [facility] MCHC 32.7 31.7 - 36.3 g/dL 08/05/2024 7:01 AM [facility] RDW-CV 17.6(H) 11.3 - 14.8 % 08/05/2024 7:01 AM [facility] Platelet Count 111(L) 150 - 420 x10E9/L 08/05/2024 7:01 AM [facility] MPV 10.1 7.8 - 11.4 fL 08/05/2024 7:01 AM [facility] Neutrophil % 70.0 41.0 - 74.0 % 08/05/2024 7:01 AM [facility] Lymphocyte % 13.8(L) 17.0 - 47.0 % 08/05/2024 7:01 AM [facility] Monocyte % 11.7(H) 3.0 - 11.0 % 08/05/2024 7:01 AM [facility] Eosinophil % 3.7 0.0 - 7.0 % 08/05/2024 7:01 AM [facility] Basophil % 0.4 0.0 - 1.6 % 08/05/2024 7:01 AM [facility] Immature Granulocytes % 0.4 0.0 - 1.0 % 08/05/2024 7:01 AM [facility] Neutrophil Absolute 4.76 1.60 - 7.50 x10E9/L 08/05/2024 7:01 AM [facility] Lymphocyte Absolute 0.94(L) 1.00 - 4.40 x10E9/L 08/05/2024 7:01 AM [facility] Monocyte Absolute 0.80 0.15 - 1.00 x10E9/L 08/05/2024 7:01 AM [facility] Eosinophil Absolute 0.25 0.00 - 0.60 x10E9/L 08/05/2024 7:01 AM [facility] Basophil Absolute 0.03 0.00 - 0.13 x10E9/L 08/05/2024 7:01 AM [facility] Blood BLOOD SPECIMEN / Unknown Venipuncture / Unknown 08/05/2024 6:53 AM SENIOR IT SECURITY ANALYST 08/05/2024 6:57 AM [facility] Miguel Angel Mccain MD LAB - HEMATOLOGY ORD ERABLES Performing Organization Address City/State/[facility] Co de Phone Number [facility] [address] [place] [address] * URIC ACID URINE TIMED (08/04/2024 1:55 PM SENIOR IT SECURITY ANALYST) Pathologist [facility] Uric Acid 24 Hour Urine 205.0 142.3 - 713.2 mg/24 hr 08/06/2024 11:10 AM SENIOR IT SECURITY ANALYST [facility] ([facility]) Uric Acid Urine 20.5 Not Estab. mg/dL 08/06/2024 11:10 AM [facility] ([facility]) Urine TIMED URINE SPECIMEN / Unknown Timed Urine Volume Measurement / Unknown 08/04/2024 1:55 PM SENIOR IT SECURITY ANALYST 08/04/2024 2:02 PM SENIOR IT SECURITY ANALYST Narrative [facility] ([facility]) - 08/06/2024 11:10 AM SENIOR IT SECURITY ANALYST Performed at: [facility] - [facility] [address] [place], [place] [id number] [employer]isher: El Sood PhD, Phone: [phone] Pete Olmos MD LAB - URINE CHEMISTR Y ORDERABLES Performing Organization Address City/[facility] Co de Phone Number [facility] ([facility]) [address] [place] [address] * PROTEIN URINE TIMED QUANTITATIVE (08/04/2024 1:55 PM SENIOR IT SECURITY ANALYST) Volume 24 Hour Urine 1,000 mL 08/04/2024 2:25 PM SENIOR IT SECURITY ANALYST [facility] Collection Time Hours 24 hrs 08/04/2024 2:25 PM SENIOR IT SECURITY ANALYST [facility] Protein 24 Hour Urine 72 <300 mg/24hr 08/04/2024 2:25 PM SENIOR IT SECURITY ANALYST [facility] Protein Urine 7.2 <11.9 mg/dL 08/04/2024 2:25 PM SENIOR IT SECURITY ANALYST [facility] Urine TIMED URINE SPECIMEN / Unknown Timed Urine Volume Measurement / Unknown 08/04/2024 1:55 PM SENIOR IT SECURITY ANALYST 08/04/2024 2:02 PM SENIOR IT SECURITY ANALYST Pete Olmos MD LAB - URINE CHEMISTR Y ORDERABLES Performing Organization Address City/[facility]/ZIP Co de Phone Number [facility] [address] [place] [phone] * CREATININE CLEARANCE URINE TIMED + BLOOD (08/04/2024 1:55 PM SENIOR IT SECURITY ANALYST) Volume 24 Hour Urine 1,000 mL 08/04/2024 2:28 PM SENIOR IT SECURITY ANALYST [facility] Collection Time Hours 24 hrs 08/04/2024 2:28 PM SENIOR IT SECURITY ANALYST [facility] Height Inches 65 inches 08/04/2024 2:28 PM SENIOR IT SECURITY ANALYST [facility] Weight in Pounds 160 pounds 08/04/2024 2:28 PM SENIOR IT SECURITY ANALYST [facility] Surface Area 1.80 08/04/2024 2:28 PM SENIOR IT SECURITY ANALYST [facility] Creatinine 0.81 0.57 - 1.11 mg/dL 08/04/2024 2:28 PM [facility] Creatinine Urine 82.74 mg/dL 08/04/2024 2:28 PM [facility] Creatinine 24 Hour Urine 827 710 - 1,650 mg/24hr 08/04/2024 2:28 PM [facility] Creatinine Clearance 68 66 - 165 mL/min/1.73 m2 08/04/2024 2:28 PM [facility] Urine TIMED URINE SPECIMEN / Unknown Timed Urine Volume Measurement / Unknown 08/04/2024 1:55 PM SENIOR IT SECURITY ANALYST 08/04/2024 2:02 PM SENIOR IT SECURITY ANALYST Pete Olmos MD LAB - URINE CHEMISTR Y ORDERABLES [facility] [address] [place], [place] [phone] * (ABNORMAL) CALCIUM URINE TIMED (08/04/2024 1:55 PM SENIOR IT SECURITY ANALYST) Pathologist [facility] Calcium Random Urine <2.0 Not Established mg/dL 08/04/2024 7:00 PM [facility] Collection Time Timed Urine 24 Hrs 08/04/2024 7:00 PM [facility] Calcium 24 Hour Urine <20(L) 50 - 300 mg/24 hrs 08/04/2024 7:00 PM [facility] Comment:Unable to calculate excretion rate because the analyte concentration is outside the instrument measuring range. Volume Timed Urine 1,000 mL 08/04/2024 7:00 PM [facility] Urine TIMED URINE SPECIMEN / Unknown Timed Urine Volume Measurement / Unknown 08/04/2024 1:55 PM SENIOR IT SECURITY ANALYST 08/04/2024 2:02 PM SENIOR IT SECURITY ANALYST Pete Olmos MD LAB - URINE CHEMISTR Y ORDERABLES [facility] [address] [place] [address], [facility] [phone] * (ABNORMAL) URINALYSIS REFLEX TO MICROSCOPIC NO CULTURE (08/03/2024 12:49 PM SENIOR IT SECURITY ANALYST) Color UA Yellow Yellow, Straw 08/03/2024 1:30 PM SENIOR IT SECURITY ANALYST [facility] Clarity UA Clear Clear 08/03/2024 1:30 PM SENIOR IT SECURITY ANALYST [facility] Glucose UA Normal Normal 08/03/2024 1:30 PM SENIOR IT SECURITY ANALYST [facility] Bilirubin UA Negative Negative 08/03/2024 1:30 PM SENIOR IT SECURITY ANALYST [facility] Ketone UA Negative Negative 08/03/2024 1:30 PM SENIOR IT SECURITY ANALYST [facility] Specific [place] UA 1.013 1.005 - 1.030 08/03/2024 1:30 PM SENIOR IT SECURITY ANALYST [facility] Blood UA Negative Negative 08/03/2024 1:30 PM SENIOR IT SECURITY ANALYST [facility] pH UA 7.5 5.0 - 9.0 pH 08/03/2024 1:30 PM SENIOR IT SECURITY ANALYST [facility] Protein UA Negative Negative 08/03/2024 1:30 PM SENIOR IT SECURITY ANALYST [facility] Urobilinogen UA Normal Normal mg/dL 08/03/2024 1:30 PM SENIOR IT SECURITY ANALYST [facility] Nitrite UA Negative Negative 08/03/2024 1:30 PM SENIOR IT SECURITY ANALYST [facility] Leukocyte UA 75 JAQUI/uL(A) Negative 08/03/2024 1:30 PM SENIOR IT SECURITY ANALYST [facility] RBC UA 0-2 0 - 5 # /hpf 08/03/2024 1:30 PM SENIOR IT SECURITY ANALYST [facility] WBC UA 6-10(A) 0 - 5 # /hpf 08/03/2024 1:30 PM SENIOR IT SECURITY ANALYST [facility] Bacteria UA Trace(A) None Seen 08/03/2024 1:30 PM SENIOR IT SECURITY ANALYST [facility] Squamous Epithelial Cells 0-2 0 - 5 /hpf 08/03/2024 1:30 PM SENIOR IT SECURITY ANALYST [facility] Budding Yeast Few(A) None seen /hpf 08/03/2024 1:30 PM SENIOR IT SECURITY ANALYST [facility] Urine URINE SPECIMEN OBTAINED BY CLEAN CATCH PROCEDURE / Unknown Collection / Unknown 08/03/2024 12:49 PM SENIOR IT SECURITY ANALYST 08/03/2024 12:53 PM SENIOR IT SECURITY ANALYST Narrative [facility] - 08/03/2024 1:30 PM SENIOR IT SECURITY ANALYST Pete Olmos MD LAB - URINALYSIS ORD ERABLES [facility] [address] [place] [address] * XR Lumbar Spine 2 or 3Vw (08/02/2024 2:10 PM SENIOR IT SECURITY ANALYST) Anatomical Region Laterality Modality Spine Computed Radiogr aphy 08/02/2024 2:26 PM SENIOR IT SECURITY ANALYST Narrative 08/02/2024 2:29 PM SENIOR IT SECURITY ANALYST EXAM: XR LUMBAR SPINE 2 OR 3VW [...] PTH INTACT W/O CALCIUM (08/02/2024 3:19 AM SENIOR IT SECURITY ANALYST) PTH Intact 275.2(H) 8.7 - 77.1 pg/mL 08/02/2024 4:05 AM SENIOR IT SECURITY ANALYST [facility] Blood BLOOD SPECIMEN / Unknown Venipuncture / Unknown 08/02/2024 3:19 AM SENIOR IT SECURITY ANALYST 08/02/2024 3:30 AM SENIOR IT SECURITY ANALYST Miguel Angel Mccain MD LAB - CHEMISTRY AIDEN KEVIN [facility] Organization Address City/State/ZIP Co de Phone Number [facility] [address] [place] [address] * (ABNORMAL) RENAL FUNCTION PANEL (08/02/2024 3:19 AM SENIOR IT SECURITY ANALYST) Only the most recent of3 resultswithin the time period is included. Glucose 112(H) 70 - 99 mg/dL 08/02/2024 4:06 AM [facility] Sodium 140 136 - 145 mmol/L 08/02/2024 4:06 AM [facility] Potassium 3.1(L) 3.5 - 5.1 mmol/L 08/02/2024 4:06 AM [facility] Chloride 103 98 - 107 mmol/L 08/02/2024 4:06 AM [facility] CO2 28 22 - 29 mmol/L 08/02/2024 4:06 AM [facility] Calcium 5.8(LL) 8.4 - 10.4 mg/dL 08/02/2024 4:06 AM [facility] Anion Gap 9 6 - 16 mmol/L 08/02/2024 4:06 AM [facility] BUN 4(L) 7 - 26 mg/dL 08/02/2024 4:06 AM [facility] Creatinine 0.75 0.57 - 1.11 mg/dL 08/02/2024 4:06 AM [facility] Albumin 2.4(L) 3.4 - 5.0 gm/dL 08/02/2024 4:06 AM [facility] Phosphorus 2.4(L) 2.5 - 4.5 mg/dL 08/02/2024 4:06 AM [facility] eGFR by CKD-EPI 88(L) >=90 mL/min/1.7 3 m2 08/02/2024 4:06 AM [facility] Blood BLOOD SPECIMEN / Unknown Venipuncture / Unknown 08/02/2024 3:19 AM SENIOR IT SECURITY ANALYST 08/02/2024 3:30 AM [facility] Miguel Angel Mccain MD LAB - CHEMISTRY AIDEN KEVIN [facility] [id number] [place] [address] * (ABNORMAL) CALCIUM BLOOD (08/01/2024 3:41 AM [facility]) Calcium 5.4(LL) 8.4 - 10.4 mg/dL 08/01/2024 4:21 AM SENIOR IT SECURITY ANALYST [facility] Blood BLOOD SPECIMEN / Unknown Venipuncture / Unknown 08/01/2024 3:41 AM SENIOR IT SECURITY ANALYST 08/01/2024 3:52 AM SENIOR IT SECURITY ANALYST Peewee Esquivel DO LAB - CHEMISTRY ORDKyle KEVIN Performing Organization Address [facility] de Phone Number [facility] [id number] [place] [address] [phone] * (ABNORMAL) HGB HCT PANEL (07/31/2024 7:39 AM SENIOR IT SECURITY ANALYST) Only the most recent of4 resultswithin the time period is included. Pathologist [facility] Hemoglobin 8.3(L) 11.9 - 15.8 g/dL 07/31/2024 7:47 AM SENIOR IT SECURITY ANALYST [facility] Hematocrit 23.7(L) 34.8 - 46.1 % 07/31/2024 7:47 AM SENIOR IT SECURITY ANALYST [facility] Blood BLOOD SPECIMEN / Unknown Venipuncture / Unknown 07/31/2024 7:39 AM SENIOR IT SECURITY ANALYST 07/31/2024 7:43 AM SENIOR IT SECURITY ANALYST Cruz Whitfield MD LAB - HEMATOLOGY OR DERABLES Performing Organization Address [facility] de Phone Number [facility] [id number] [place] [address] [phone] * TRANSFUSE RED BLOOD CELL LEUKOREDUCED UNIT(S) (07/31/2024 5:59 AM SENIOR IT SECURITY ANALYST) Peewee Esquivel DO NURSING - BLOOD PROD TRANSFUSION * PREPARE (CROSSMATCH) RBC UNIT(S), 1 Units (07/31/2024 3:35 AM SENIOR IT SECURITY ANALYST) Only the most recent of2 resultswithin the time period is included. Pathologist [facility] Unit Description AS1 LR PRBC [facility] ABO B [facility] Rh POS [facility] B[facility] Product Number [id number] [facility] Donor # [id number] [facility] C BLOOD BANK Unit Status transfused [facility] BL OOD BANK Product Code [id number] [facility] Blood Type Barcode 7300 [facility] Expiration Date [id number] D [facility] Blood Bank BLOOD SPECIMEN / Unknown 07/28/2024 8:53 PM SENIOR IT SECURITY ANALYST Miguel Angel Mccain MD LAB - BLOOD BANK ORD ERABLES Performing Organization Address [facility] Co de Phone Number [facility] [id number] [place], [place] [id number] [phone] * (ABNORMAL) VITAMIN D 25-HYDROXY (07/31/2024 2:15 AM SENIOR IT SECURITY ANALYST) Pathologist [facility] Vitamin D, 25 Hydroxy 12.3(L) 30 - 80 ng/mL 07/31/2024 3:23 AM SENIOR IT SECURITY ANALYST [facility] Blood BLOOD SPECIMEN / Unknown Venipuncture / Unknown 07/31/2024 2:15 AM SENIOR IT SECURITY ANALYST 07/31/2024 2:22 AM SENIOR IT SECURITY ANALYST Narrative [facility] - 07/31/2024 3:23 AM SENIOR IT SECURITY ANALYST Vitamin D Status: Deficiency <20 ng/mL Insufficiency 20-30 ng/mL Sufficiency 30-100 ng/mL Toxicity >100 ng/mL Miguel Angel Mccain MD LAB - CHEMISTRY AIDEN KEVIN Performing Organization Address [facility] Co de Phone Number [facility] [address] [place] [address] * (ABNORMAL) FOLATE (07/31/2024 2:15 AM SENIOR IT SECURITY ANALYST) Pathologist [facility] Folate 5.2(L) 7.0 - 31.4 ng/mL 07/31/2024 3:23 AM SENIOR IT SECURITY ANALYST [facility] Blood BLOOD SPECIMEN / Unknown Venipuncture / Unknown 07/31/2024 2:15 AM SENIOR IT SECURITY ANALYST 07/31/2024 2:22 AM SENIOR IT SECURITY ANALYST Miguel Angel Mccain MD LAB - CHEMISTRY AIDEN KEVIN Performing Organization Address [facility] Co de Phone Number [facility] [address] [place] [address] [phone] * (ABNORMAL) VITAMIN B12 (07/31/2024 2:15 AM SENIOR IT SECURITY ANALYST) [facility] Vitamin B12 >2,000(H) 213 - 816 pg/mL 07/31/2024 3:27 AM SENIOR IT SECURITY ANALYST [facility] Blood BLOOD SPECIMEN / Unknown Venipuncture / Unknown 07/31/2024 2:15 AM SENIOR IT SECURITY ANALYST 07/31/2024 2:22 AM SENIOR IT SECURITY ANALYST Miguel Angel Mccain MD LAB - CHEMISTRY ORDKyle KEVIN Performing Organization Address [facility] de Phone Number [facility] [id number] [place] [phone] * (ABNORMAL) IRON + TRANSFERRIN PANEL (07/31/2024 2:15 AM SENIOR IT SECURITY ANALYST) Iron 84 40 - 150 ug/dL 07/31/2024 2:55 AM SENIOR IT SECURITY ANALYST [facility] Transferrin 123(L) 174 - 382 mg/dL 07/31/2024 2:55 AM SENIOR IT SECURITY ANALYST [facility] TIBC Calculated 154(L) 240 - 450 ug/dL 07/31/2024 2:55 AM SENIOR IT SECURITY ANALYST [facility] Iron Saturation % 55(H) 20 - 50 % 07/31/2024 2:55 AM SENIOR IT SECURITY ANALYST [facility] Blood BLOOD SPECIMEN / Unknown Venipuncture / Unknown 07/31/2024 2:15 AM SENIOR IT SECURITY ANALYST 07/31/2024 2:22 AM SENIOR IT SECURITY ANALYST Miguel Angel Mccain MD LAB - CHEMISTRY ORDKyle KEVIN Performing Organization Address [facility] de Phone Number [facility] [id number] [place] [phone] * TRANSFUSE RED BLOOD CELL LEUKOREDUCED UNIT(S) (07/30/2024 7:41 AM SENIOR IT SECURITY ANALYST) Peewee Esquivel DO NURSING - BLOOD PROD TRANSFUSION * BLOOD TYPE VERIFICATION (07/30/2024 2:06 AM SENIOR IT SECURITY ANALYST) ABO Rh B POS 07/30/2024 4:2 5 AM SENIOR IT SECURITY ANALYST [facility] Blood Bank BLOOD SPECIMEN / Unknown Venipuncture / Unknown 07/30/2024 2:06 AM SENIOR IT SECURITY ANALYST 07/30/2024 3:11 AM SENIOR IT SECURITY ANALYST Yi Grier MD LAB - BLOOD BANK ORD ERABLES Performing Organization Address [facility] Co de Phone Number [facility] [address] [phone] * (ABNORMAL) PT-INR (07/30/2024 2:06 AM SENIOR IT SECURITY ANALYST) Only the most recent of2 resultswithin the time period is included. PT 19.8(H) 12.1 - 14.8 sec 07/30/2024 3:12 AM SENIOR IT SECURITY ANALYST [facility] Comment:This result represen ts a significant difference from this patient's most recent previous value. Clinical correlation is therefore recommended. INR 1.7(H) 0.9 - 1.1 07/30/2024 3:12 AM SENIOR IT SECURITY ANALYST [facility] Blood BLOOD SPECIMEN / Unknown Venipuncture / Unknown 07/30/2024 2:06 AM SENIOR IT SECURITY ANALYST 07/30/2024 2:27 AM SENIOR IT SECURITY ANALYST Narrative [facility] - 07/30/2024 3:12 AM SENIOR IT SECURITY ANALYST Conventional Warfarin Anticoagulant Therapy: INR Reference Range: 2.0-3.0 Intensive Warfarin Anticoagulant Therapy: INR Reference Range: 2.5-3.5 Yi Grier MD LAB - COAGULATION OR DERABLES Performing Organization Address [facility] Co de Phone Number [facility] [address] [place] [address] * (ABNORMAL) CBC W/O DIFFERENTIAL (07/30/2024 2:06 AM SENIOR IT SECURITY ANALYST) Only the most recent of3 resultswithin the time period is included. WBC 12.5(H) 4.0 - 10.7 x10E9/L 07/30/2024 2:30 AM SENIOR IT SECURITY ANALYST [facility] RBC Count 2.06(L) 3.90 - 5.20 x10E12/L 07/30/2024 2:30 AM SENIOR IT SECURITY ANALYST [facility] Hemoglobin 6.4(L) 11.9 - 15.8 g/dL 07/30/2024 2:30 AM SENIOR IT SECURITY ANALYST [facility] Hematocrit 18.7(L) 34.8 - 46.1 % 07/30/2024 2:30 AM SENIOR IT SECURITY ANALYST [facility] MCV 90.8 80.0 - 98.0 fL 07/30/2024 2:30 AM SENIOR IT SECURITY ANALYST [facility] MCH 31.1 26.7 - 33.6 pg 07/30/2024 2:30 AM [facility] MCHC 34.2 31.7 - 36.3 g/dL 07/30/2024 2:30 AM SENIOR IT SECURITY ANALYST [facility] RDW-CV 18.1(H) 11.3 - 14.8 % 07/30/2024 2:30 AM SENIOR IT SECURITY ANALYST [facility] Platelet Count 161 150 - 420 x10E9/L 07/30/2024 2:30 AM [facility] MPV 10.0 7.8 - 11.4 fL 07/30/2024 2:30 AM [facility] Blood BLOOD SPECIMEN / Unknown Venipuncture / Unknown 07/30/2024 2:06 AM SENIOR IT SECURITY ANALYST 07/30/2024 2:27 AM SENIOR IT SECURITY ANALYST Yi Grier MD LAB - HEMATOLOGY ORD ERABLES [facility] [address] [place] [place] [phone] * US ABDOMEN LIMITED (RUQ) (07/29/2024 2:29 PM SENIOR IT SECURITY ANALYST) Anatomical Region Laterality Modality Abdomen Ultrasound 07/29/2024 3:34 PM SENIOR IT SECURITY ANALYST Impressions 07/30/2024 10:05 AM SENIOR IT SECURITY ANALYST IMPRESSION: 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 Hepatic steatosis with a mass right lobe most consistent with focal fatty sparing. Lack of ability to compare to the outside images result in decreased sensitivity. > Interpreting Provider: Kameron Sprague MD on 07/30/2024 10:05 AM Narrative 07/30/2024 10:05 AM SENIOR IT SECURITY ANALYST PROCEDURE: US ABDOMEN LIMITED, DATE/TIME OF EXAM: 07/29/2024 2:29 PM, LOCATION [facility] INDICATION: K92.1: Melena ADDITIONAL CLINICAL INFORMATION: [...] DATE/TIME OF EXAM: 07/29/2024 2:29 PM, LOCATION [facility] INDICATION: K92.1: Melena ADDITIONAL CLINICAL INFORMATION: [...] US ORDERABLES * EGD (07/29/2024 6:57 AM SENIOR IT SECURITY ANALYST) Report Endoscopy POC _ Patient Name: Sarahy Rodriguez Procedure Date: 07/29/2024 6:57 AM Date of : 1960 Admit Type: Inpatient Age: 64 Gender: Female Attending MD: Cathleen Estrada MD, [id number] _ Procedure: Upper GI endoscopy Indications: Melena [...] GI notes Procedure Code(s): --- Professional --- 63081, Esophagogastroduoden oscopy, flexible, transoral; diagnostic, including collection of specimen(s) by brushing or washing, when performed (separate procedure) --- Technical --- 01880, Esophagogastroduoden oscopy, flexible, transoral; diagnostic, including collection [...] K92.1, Melena (includes Hematochezia) CPT copyright 2020 [employer]. All rights reserved. The codes documented in this report are preliminary and upon implementation director review may be revised to meet current compliance requirements. aCthleen Estrada MD 07/29/2024 9:00:40 AM Number of Addenda: 0 Note Initiated On: 07/29/2024 6:57 AM [facility] 07/29/2024 6:57 AM SENIOR IT SECURITY ANALYST Narrative Procedure Note Cathleen Estrada MD - [...] Ania Josue MD GI PROCEDURE ORDERAB LES [facility] [place] [address] * CULTURE BLOOD (07/28/2024 10:03 PM SENIOR IT SECURITY ANALYST) Only the most recent of2 resultswithin the time period is included. Culture No growth day 5 LINO 08/03/2024 1:30 AM SENIOR IT SECURITY ANALYST [facility] Blood PERIPHERAL BLOOD / Unknown Venipuncture / Unknown 07/28/2024 10:03 PM SENIOR IT SECURITY ANALYST 07/28/2024 10:07 PM SENIOR IT SECURITY ANALYST Fabio Santos MD LAB - MICROBIOLOGY O RDERABLES [facility] [address] [place] [address], [facility] [phone] * TYPE + SCREEN PANEL (07/28/2024 6:52 PM SENIOR IT SECURITY ANALYST) ABO Rh B POS 07/28/2024 9:52 PM SENIOR IT SECURITY ANALYST [facility] Comment:No history; collect retype. Antibody Screen NEG 9:52 PM SENIOR IT SECURITY ANALYST [facility] Blood Bank BLOOD SPECIMEN / Unknown Venipuncture / Unknown 07/28/2024 6:52 PM SENIOR IT SECURITY ANALYST 07/28/2024 8:53 PM SENIOR IT SECURITY ANALYST Fabio Santos MD LAB - BLOOD BANK ORD ERABLES Performing Organization Address City/[facility]/ZIP Co de Phone Number [facility] [address] [phone] Care Teams Field Liability Generalist Relationship Specialty Start Date End Date Priyank Zepeda MD [address] [place] [address] PCP - General 02/23/22
--- NOTE | 2024-08-14 08:59 | PC.NURSE ---
Spoke with Dr. Zepeda office who sent last office note with current med list. Went over all meds with Louise who confirms yes, that is the list but Im unsure when I last took the meds the right way.
[2024-08-14 09:41] LABS: Hemoglobin 9.7 g/dL (11.7-13.8); Mean Corpuscular HGB Conc 31.3 g/dL (32-36); Mean Corpuscular Hemoglobin 30.4 pg (27.0-31.0); Mean Corpuscular Volume 97.2 fL (78.0-102.0); Mean Platelet Volume 9.4 fl (9.2-11.8); Platelet Count Result 244 K/mm3 (150-420); Red Blood Count 3.19 M/mm3 (4.20-5.40); Red Cell Distribution Width 17.7 % (11.6-14.4); White Blood Count 3.6 K/mm3 (4.8-10.8)
[2024-08-14] MEDS: CALCIUM CARBONATE (OSCAL) 500 MG TABLET PO (09:56)
[2024-08-14] MEDS: POTASSIUM CHLORIDE 20 MEQ PACKET (FOR LIQUID) 40 MEQ PO ×2 (09:57→17:23)
[2024-08-14 10:00] LABS: Alanine Aminotransferase 38 U/L (14-59); Alkaline Phosphatase 148 U/L (46-116); Anion Gap 5 mmol/L (4-12); Aspartate Amino Transferase 50 U/L (15-37); Bilirubin,Total 0.4 mg/dL (0.00-1.00); Blood Urea Nitrogen 12 mg/dL (7-18); Calcium 6.1 mg/dL (8.5-10.1); Carbon Dioxide 27 mmol/L (21-32); Chloride 112 mmol/L (98-108); Estimated CRCL calculation 48 ml/min; Estimated Glomerular Filt Rate 48; Glucose 105 mg/dL (70-99); Osmolality Calculated 297 mOsm/kg (285-295); Potassium 4.3 mmol/L (3.5-5.1); Sodium 144 mmol/L (136-145); Total Protein 5.5 g/dL (6.4-8.2)
[2024-08-14] MEDS: FLUoxetine HCL 20 MG CAPSULE 40 MG PO ×2 (10:33→17:23)
[2024-08-14] MEDS: CALCIUM CARBONATE (TUMS) 500 MG (200 MG ELEMENTAL) PO ×2 (10:33→17:23)
[2024-08-14] MEDS: PANTOPRAZOLE 40 MG TABLET PO ×2 (10:34→17:23)
[2024-08-14] MEDS: calcitrioL 0.25 MCG CAPSULE 0.5 MCG PO ×2 (10:34→20:49)
[2024-08-14] MEDS: LEVOTHYROXINE SODIUM 100 MCG, LEVOTHYROXINE SODIUM 25 MCG 125 MCG PO (10:34)
[2024-08-14] MEDS: APIXABAN 2.5 MG TABLET 5 MG BY MOUTH ×2 (10:34→20:49)
[2024-08-14] MEDS: AMITRIPTYLINE HCL 10 MG TABLET PO ×2 (10:35→17:23)
--- NOTE | 2024-08-14 11:38 | P.HP_ITS ---
H&P: HPI History of Present Illness Date/Time: 08/14/24 11:38 Chief Complaint: Electrolyte abnormalities Narrative: Patient is a 64-year-old female who presented to emergency department from her primary care physician who had called her after electrolyte abnormalities requesting to seek treatment. patient has a past medical history of hypothyroidism, hyperparathyroid hypertension, CKD, Gi bleed, ortal vein thrombus, status post cholecystectomy, appendectomy, gastric bypass who presents with abnormal labs. Patient has been under the care of a curtain stitcher for a hepatic venous thrombosis and was recently hospitalized with GI bleed at which time they had initiated the patient on IV Lasix for lower extremity edema but had discontinued her oral potassium supplement as well as calcium supplement. patient has been following with it operations analyst over at [facility] she was found to calcium of 6.1 and potassium of 2.4. patient denied any complaints no chest pain, palpitations, shortness of breath, nausea, vomiting, or dizziness. EKG showed SR at 68. The ER physician had called over to [facility] for possible transferred due to hypocalcemia patient was placed on a current wait list, she admitted to the medical unit upstairs while awaiting transfer will continue to monitor with cardiac monitoring system and continue with replenishment of potassium calcium. Review of Systems Review of Systems: All systems reviewed & are unremarkable except as noted in HPI and below PMFSH Past Medical History Medical History (Updated 08/14/24 @ 11:46 by Dora Mcneal APRN) Hypocalcemia Hypokalemia Portal vein thrombosis CKD (chronic kidney disease) Bradycardia Hypothyroidism Hyperparathyroidism HTN (hypertension) Renal tubular acidosis Trichotillomania Surgical History Surgical History History of colon surgery 02/15/22 Open right hemicolectomy with ileocolic anastomosis History of extraction of renal calculus History of colonoscopy with polypectomy May 2021 with benign polypectomy History of laparoscopic cholecystectomy cholecystectomy during her laparoscopic gastric surgery History of laparoscopic appendectomy H/O knee surgery H/O gastric bypass 2002 in [place] - laparoscopic duodenal switch procedure H/O parathyroidectomy Family History Family History Father Asthma Hypertension Mother Breast cancer Sibling Diabetes mellitus Hypertension Grandparent Cancer Grandparent Diabetes mellitus Cancer Other No pertinent family history Social History Social History Smoking status: Never smoker Second hand tobacco smoke exposure: No Alcohol intake: never Substance use: never Substance use type: does not use Other substance usage details: none Do You Feel Safe in your Home?: Yes Lack of Transportation: No Lack of Food: Never True Current Housing: I Have Housing Concerned About Future Housing: No Difficulty Paying Gas/Electric Bills: No Difficulty Paying for Meds: No Currently Unemployed: No Education: Bachelor's Degree Difficulty w/ Childcare or Family Care: No Occupation/Education: other Additional occupation/education comments: on disability Spiritual care concerns: No Meds Home Medications and Allergies Home Medications ?Medication ?Instructions ?Recorded ?Confirmed ?Type amitriptyline 10 mg tablet 10 mg PO BID 10/24/19 08/14/24 History fluoxetine 40 mg capsule 40 mg PO BID 10/24/19 08/14/24 History metoprolol succinate 50 mg 50 mg PO DAILY 10/24/19 08/14/24 History tablet,extended release 24 hr potassium chloride 20 mEq 20 meq PO BID 10/24/19 08/14/24 History tablet,extended release(part/cryst) cyanocobalamin (vitamin B-12) 2,500 mcg PO DAILY 02/15/22 08/14/24 History beta carotene 30 mg capsule 30 mg PO DAILY 02/25/22 08/14/24 History sodium bicarbonate 650 mg tablet See Rx Instructions .Route .COMPLEX 07/15/22 08/14/24 History calcium citrate 760 mg PO BID 09/27/23 08/14/24 History ergocalciferol (vitamin D2) 1,250 1,250 mcg PO WEEKLY 09/27/23 08/14/24 History mcg (50,000 unit) capsule (Vitamin D2) calcitriol 0.5 mcg capsule 0.25 mcg PO Q12H 12/25/23 08/14/24 History calcium carbonate (Tums) 200 mg PO BID 12/25/23 08/14/24 History pantoprazole 40 mg tablet,delayed 40 mg PO BID 12/25/23 08/14/24 History release ferrous sulfate 325 mg (65 mg 325 mg PO TID 02/06/24 08/14/24 History iron) tablet (FeroSul) albuterol sulfate 90 mcg/actuation 2 puff inhalation Q4-6H PRN 07/27/24 08/14/24 History aerosol inhaler shortness of breath or wheezing alendronate 10 mg tablet 10 mg PO DAILY 07/27/24 08/14/24 History apixaban 5 mg tablet (Eliquis) 5 mg PO BID 07/27/24 08/14/24 History hydroxyzine HCl 25 mg tablet 25 mg PO Q6-8H PRN itching 07/27/24 08/14/24 History levothyroxine 125 mcg tablet 125 mcg PO DAILY@0630 07/27/24 08/14/24 History Allergies Allergy/AdvReac Type Severity Reaction Status Date / Time ciprofloxacin (From [facility]) Allergy Other Verified 08/14/24 00:24 Vital Signs Vital Signs - 24 hr 08/13/24 18:58 08/13/24 18:58 08/13/24 19:00 Temperature 97.4 F L Pulse Rate 80 78 Respiratory Rate 16 Blood Pressure 111/77 Pulse Oximetry 99 Oxygen Delivery Room Air Room Air 08/13/24 19:21 08/13/24 19:30 08/13/24 19:47 Temperature Pulse Rate 73 71 Respiratory Rate 19 23 H 19 Blood Pressure Pulse Oximetry 100 96 97 Oxygen Delivery 08/13/24 20:00 08/13/24 20:02 08/13/24 20:16 Temperature Pulse Rate 74 81 72 Respiratory Rate 20 16 Blood Pressure Pulse Oximetry 100 Oxygen Delivery 08/13/24 20:32 08/13/24 20:47 08/13/24 21:00 Temperature Pulse Rate 73 73 76 Respiratory Rate 18 17 Blood Pressure Pulse Oximetry 97 97 Oxygen Delivery 08/13/24 21:02 08/13/24 21:15 08/13/24 21:16 Temperature Pulse Rate 80 73 72 Respiratory Rate 17 18 23 H Blood Pressure 114/59 L Pulse Oximetry 97 99 98 Oxygen Delivery 08/13/24 21:30 08/13/24 21:31 08/13/24 21:45 Temperature Pulse Rate 71 74 70 Respiratory Rate 18 20 21 H Blood Pressure 102/61 102/62 Pulse Oximetry 99 99 100 Oxygen Delivery 08/13/24 21:46 08/13/24 22:00 08/13/24 22:01 Temperature Pulse Rate 71 69 68 Respiratory Rate 15 20 Blood Pressure Pulse Oximetry 100 100 Oxygen Delivery 08/13/24 22:15 08/13/24 22:16 08/13/24 22:30 Temperature Pulse Rate 68 71 66 Respiratory Rate 18 22 H 18 Blood Pressure 110/62 99/62 L Pulse Oximetry 99 99 100 Oxygen Delivery 08/13/24 22:31 08/13/24 22:45 08/13/24 22:46 Temperature Pulse Rate 68 66 66 Respiratory Rate 19 20 18 Blood Pressure 103/59 L Pulse Oximetry 97 97 99 Oxygen Delivery 08/13/24 23:00 08/13/24 23:00 08/13/24 23:01 Temperature Pulse Rate 70 68 68 Respiratory Rate 20 18 Blood Pressure 100/58 L Pulse Oximetry 98 99 Oxygen Delivery 08/13/24 23:15 08/13/24 23:16 08/13/24 23:30 Temperature Pulse Rate 70 68 76 Respiratory Rate 22 H 14 24 H Blood Pressure 92/54 L Pulse Oximetry 100 99 99 Oxygen Delivery 08/13/24 23:31 08/13/24 23:45 08/13/24 23:46 Temperature Pulse Rate 69 67 68 Respiratory Rate 19 18 19 Blood Pressure 122/103 H 102/59 L Pulse Oximetry 100 98 98 Oxygen Delivery 08/14/24 00:00 08/14/24 00:00 08/14/24 00:01 Temperature Pulse Rate 66 68 69 Respiratory Rate 18 18 Blood Pressure 99/59 L Pulse Oximetry 98 97 Oxygen Delivery 08/14/24 00:15 08/14/24 00:16 08/14/24 00:30 Temperature Pulse Rate 66 68 68 Respiratory Rate 17 18 16 Blood Pressure 101/59 L 98/58 L Pulse Oximetry 96 97 97 Oxygen Delivery 08/14/24 00:31 08/14/24 01:56 08/14/24 04:00 Temperature Pulse Rate 69 69 70 Respiratory Rate 17 17 Blood Pressure Pulse Oximetry 97 97 Oxygen Delivery Room Air 08/14/24 04:00 Temperature 97.7 F Pulse Rate 70 Respiratory Rate 17 Blood Pressure 112/58 L Pulse Oximetry 100 Oxygen Delivery Room Air Exam Narrative: * GENERAL: Alert and oriented x 3. No acute distress. * EYES: PERRLA. * HEENT: Moist mucous membranes. * LUNGS: Clear to auscultation bilaterally. No accessory muscle use. * CARDIOVASCULAR: Regular rate and rhythm. No murmur. No JVD. S1-S2No palpable masses. * EXTREMITIES: 2-3+ pitting edema BLE. Non-tender, Umbilical Hernia * SKIN: No rashes or lesions. Skin warm, dry. * NEUROLOGIC: No focal neurological deficits. CN II-XII grossly intact * PSYCHIATRIC: Appropriate mood and affect. Good judgement and insight. H&P: Results Labs Labs: Short CBC 08/13/24 08/14/24 Range/Units 19:56 09:23 WBC 4.2 L 3.6 L (4.8-10.8) K/mm3 Hgb 10.3 L 9.7 L (11.7-13.8) g/dL Hct 33.2 L 31.0 L (35.0-42.0) % Plt Count 240 244 (150-420) K/mm3 BMP 08/13/24 08/14/24 08/14/24 19:56 05:18 09:23 Sodium 143 144 144 Potassium 2.4 L* 2.5 L 4.3 Chloride 108 110 H 112 H Carbon Dioxide 26 24 27 BUN 13 12 12 Creatinine 1.26 H 1.07 H 1.13 H Glucose 113 H 84 105 H Calcium 6.1 L 5.9 L* 6.1 L Liver Function 08/13/24 08/14/24 Range/Units 19:56 09:23 Total Bilirubin 0.6 0.4 (0.00-1.00) mg/dL AST 69 H 50 H (15-37) U/L ALT 39 38 (14-59) U/L Alkaline Phosphatase 160 H 148 H (46-116) U/L Albumin 2.1 L 2.0 L (3.4-5.0) g/dL Assessment and Plan Assessment and plan (1) Hypocalcemia: Code(s): E83.51 - Hypocalcemia Status: Acute Assessment and Plan: * calcium 6.1 POA>5.9 * Received calcium carbonate and calcium Gluconate * Resumed home calcitriol and calcium citrate * EKG reviewed SR * Continue with cardiac monitoring (2) Hypothyroidism: Qualifiers: Hypothyroidism type: acquired Qualified Code(s): E03.9 - Hypothyroidism, unspecified Code(s): E03.9 - Hypothyroidism, unspecified Status: Chronic Assessment and Plan: * resumed levothyroxine (3) Portal vein thrombosis: Code(s): I81 - Portal vein thrombosis Status: Acute Assessment and Plan: patient with recent GI bleed was cleared to resume her Eliquis * resumed Eliquis * is following with Hematology outpatient (4) Hypokalemia: Code(s): E87.6 - Hypokalemia Status: Acute Assessment and Plan: patient states while hospitalized a couple weeks ago they had discontinued her oral supplements continued her on Lasix * 2.4 POA * received 160meq * card boxer * will start Potassium PO 40 BID while on Lasix (5) Hypomagnesemia: Code(s): E83.42 - Hypomagnesemia Status: Acute Assessment and Plan: * Replenished * F/U mag * cardiac Monitoring (6) Leg edema: Code(s): R60.0 - Localized edema Status: Acute Assessment and Plan: * 3+ pitting edema BLE Patient reports it has improved since her hospitalization but is when the edema started * resumed Lasix 40 daily PO * Elevated when at rest * Philip wrap Plan Code status: Full code per patient DVT prophylaxis: Eliquis Stress ulcer prophylaxis: Protonix 40 daily PT/OT notes: Ambulatory Disposition: Patient continues admission for hypokalemia and hypocalcemia will continue to replenish with a continuous card boxer until stabilized patient was placed on a wait list at [facility] to see her it operations analyst. Patient can discharged home once electrolytes stabilized. Quality VTE Prophylaxis VTE prophylaxis: pharmacologic ordered -Patient's previous records reviewed on admission -ER notes reviewed in detail on admission -discussed all findings and current treatment plan with patient/Family/POA -Consultations reviewed for recommendations -Patient's disposition for safe discharge discussed with case management rn Dictation performed by [employer] direct speech recognition software, therefore banana expert variants and typographical errors may occur. Hospitalist MIPS Advance Care Plan I have confirmed that the patient's Advanced Care Plan is present, code status is documented, or surrogate decision maker is listed in patient medical record.: Yes Medication Reconciliation I have utilized all available resources to obtain, update and review the patients current medications (includes all prescriptions, OTC, herbals, cannabis, and nutritional supplements).: Yes The patient is not eligible for med reconciliation; the patient is in a emergent medical situation where delaying treatment would jeopardize the patients health.: No
[2024-08-14] MEDS: FERROUS SULFATE 325 MG TABLET DR BY MOUTH ×2 (14:36→17:23)
[2024-08-14 23:43] LABS: Add Urine Microscopic? YES; Appearance Urine Clear (Clear); Bilirubin Urine Negative (Negative); Blood Urine 2+ (Negative); Color Urine Light Yellow (Yellow); Glucose Urine UA Negative (Negative); Ketones Urine Negative (Negative); Leukocyte Esterase Ur 2+ LEU/UL (Negative); Nitrate Urine Negative (Negative); Protein Urine Negative (Negative); Specific Grav Ur 1.015 (1.010-1.020); Urobilinogen Urine 0.2 mg/dL (0.2-1.0); pH Urine 6.5 (5.0-8.0)
[2024-08-14 23:51] LABS: RBC Urine 0-2 /hpf (0-2)
[2024-08-14 23:52] LABS: Bacteria Urine Trace /hpf; Squamous Epithelial Cell Urine Few /hpf (Few)
[2024-08-15] VITALS: BP 120/73; PULSE 87; PULSE 90; RESP 17; TEMP 36.6; O2SAT 97
[2024-08-15 04:00] VITALS: BP 127/75; PULSE 85; PULSE 86; RESP 16; TEMP 36.3; O2SAT 97
[2024-08-15 05:38] LABS: Hematocrit 28.6 % (35.0-42.0); Mean Corpuscular HGB Conc 31.5 g/dL (32-36); Mean Corpuscular Hemoglobin 30.4 pg (27.0-31.0); Mean Corpuscular Volume 96.6 fL (78.0-102.0); Mean Platelet Volume 9.3 fl (9.2-11.8); Platelet Count Result 213 K/mm3 (150-420); Red Blood Count 2.96 M/mm3 (4.20-5.40); Red Cell Distribution Width 17.9 % (11.6-14.4); White Blood Count 3.7 K/mm3 (4.8-10.8)
[2024-08-15 05:51] LABS: Alanine Aminotransferase 30 U/L (14-59); Albumin Level 1.8 g/dL (3.4-5.0); Alkaline Phosphatase 148 U/L (46-116); Anion Gap 9 mmol/L (4-12); Aspartate Amino Transferase 40 U/L (15-37); Bilirubin,Total 0.5 mg/dL (0.00-1.00); Blood Urea Nitrogen 10 mg/dL (7-18); Calcium 6.3 mg/dL (8.5-10.1); Carbon Dioxide 22 mmol/L (21-32); Chloride 113 mmol/L (98-108); Estimated CRCL calculation 52 ml/min; Estimated Glomerular Filt Rate 53; Glucose 92 mg/dL (70-99); Osmolality Calculated 297 mOsm/kg (285-295); Potassium 3.6 mmol/L (3.5-5.1); Sodium 144 mmol/L (136-145); Total Protein 5.1 g/dL (6.4-8.2)
[2024-08-15] MEDS: ACETAMINOPHEN 325 MG TABLET 650 MG PO (06:11)
[2024-08-15] MEDS: LEVOTHYROXINE SODIUM 100 MCG, LEVOTHYROXINE SODIUM 25 MCG 125 MCG PO (06:11)
[2024-08-15 08:00] VITALS: BP 117/55; PULSE 60; PULSE 79; RESP 14; TEMP 37.1; O2SAT 90
[2024-08-15] MEDS: calcitrioL 0.25 MCG CAPSULE 0.5 MCG PO (09:33)
[2024-08-15] MEDS: FLUoxetine HCL 20 MG CAPSULE 40 MG PO (09:34)
[2024-08-15] MEDS: SODIUM BICARBONATE TAB 650 MG TABLET 1950 MG PO (09:34)
[2024-08-15] MEDS: APIXABAN 2.5 MG TABLET 5 MG BY MOUTH (09:35)
[2024-08-15] MEDS: FUROSEMIDE 40 MG TABLET PO (09:35)
[2024-08-15] MEDS: FERROUS SULFATE 325 MG TABLET DR BY MOUTH ×2 (09:35→13:35)
[2024-08-15] MEDS: AMITRIPTYLINE HCL 10 MG TABLET PO (09:35)
[2024-08-15] MEDS: PANTOPRAZOLE 40 MG TABLET PO (09:35)
[2024-08-15] MEDS: CALCIUM CARBONATE (TUMS) 500 MG (200 MG ELEMENTAL) PO (09:35)
[2024-08-15] MEDS: POTASSIUM CHLORIDE 20 MEQ PACKET (FOR LIQUID) 40 MEQ PO (09:37)
[2024-08-15] MEDS: ALBUMIN HUMAN 25% 25 GM/100 ML 100 ML IVPB (10:30)
--- NOTE | 2024-08-15 10:40 | P.DS_ITS ---
DS: Admitting Diagnosis Discharge Date 08/15/2024 Admitting Diagnosis Hypokalemia/hypocalcemia DS: Discharge Diagnosis Discharge Diagnosis (1) Hypocalcemia: Code(s): E83.51 - Hypocalcemia Status: Acute Assessment and Plan: * calcium 6.1 POA>5.9 * Received calcium carbonate and calcium Gluconate * Resumed home calcitriol and calcium citrate * EKG reviewed SR * Continue with cardiac monitoring (2) Hypothyroidism: Qualifiers: Hypothyroidism type: acquired Qualified Code(s): E03.9 - Hypothyroidism, unspecified Code(s): E03.9 - Hypothyroidism, unspecified Status: Chronic Assessment and Plan: * resumed levothyroxine (3) Portal vein thrombosis: Code(s): I81 - Portal vein thrombosis Status: Acute Assessment and Plan: patient with recent GI bleed was cleared to resume her Eliquis * resumed Eliquis * is following with Hematology outpatient (4) Hypokalemia: Code(s): E87.6 - Hypokalemia Status: Acute Assessment and Plan: patient states while hospitalized a couple weeks ago they had discontinued her oral supplements continued her on Lasix * 2.4 POA * received 160meq * monitor tech * will start Potassium PO 40 BID while on Lasix (5) Hypomagnesemia: Code(s): E83.42 - Hypomagnesemia Status: Acute Assessment and Plan: * Replenished * F/U mag * cardiac Monitoring (6) Leg edema: Code(s): R60.0 - Localized edema Status: Acute Assessment and Plan: * 3+ pitting edema BLE Patient reports it has improved since her hospitalization but is when the edema started * resumed Lasix 40 daily PO * Elevated when at rest * Philip wrap Plan Disposition: Discharged to Home DS: Summary Hospital Course Reason for hospitalization: Hypokalemia/hypocalcemia Hospital Course: Patient was a 64-year-old female who presented to emergency department from her primary care physician who had called her after electrolyte abnormalities requesting to seek treatment. patient has a past medical history of hypothyroidism, hyperparathyroid hypertension, CKD, Gi bleed, ortal vein thrombus, status post cholecystectomy, appendectomy, gastric bypass who presents with abnormal labs. Patient has been under the care of a mender knit goods for a hepatic venous thrombosis and was recently hospitalized with GI bleed at which time they had initiated the patient on IV Lasix for lower extremity edema but had discontinued her oral potassium supplement as well as calcium supplement. patient has been following with building maintenance supervisor over at [facility] she was found to calcium of 5.9 and potassium of 2.4. patient denied any complaints no chest pain, palpitations, shortness of breath, nausea, vomiting, or dizziness. EKG showed SR at 68. The ER physician had called over to [facility] for possible transferred due to hypocalcemia patient was placed on a current wait list, she admitted to the medical unit upstairs. We continued to replenish her potassium and calcium during admission. She remained on Continuous cardiac monitoring with cardiac events or no cardiac arrhythmias noted. patient still with acute complaints except for bilateral lower extremity swelling which she had been previously started on Lasix no reported mild improvement. patient received multiple doses of IV potassium and oral as well calcium gluconate IV resumed patient's oral supplements of potassium and calcium she had improvement with potassium at 3.6 and calcium had improved to 6.3. patient is seen and assessed date discharge no acute distress and had no complaints denied any chest pain, shortness breath palpitations, tingling or cramping of extremities. patient's labs reviewed, vitals stable patient was discharged to home. I increased her oral potassium to 40 mEq b.i.d. and resumed her Lasix 40 mg daily as well as adding spironolactone to help manage her lower extremity edema. patient was provided an order for follow-up CMP/CBC next week will evaluate her electrolytes plan for follow-up with her building maintenance supervisor as well as primary care physician she was educated to decrease her potassium to daily if follow-up labs show a potassium over 5.0. patient acknowledged and agreed with discharge plan. Status at Discharge Functional status at discharge: independent ambulation Overall status at discharge: patient is back to baseline Time Spent with Patient Time attestation: Total time spent providing and/or coordinating discharge services: Time spent: Greater than 30 minutes Exam Narrative: * GENERAL: Alert and oriented x 3. No acute distress. * EYES: PERRLA. * HEENT: Moist mucous membranes. * LUNGS: Clear to auscultation bilaterally. No accessory muscle use. * CARDIOVASCULAR: Regular rate and rhythm. No murmur. No JVD. S1-S2No palpable masses. * EXTREMITIES: 2-3+ pitting edema BLE. Non-tender, Umbilical Hernia * SKIN: No rashes or lesions. Skin warm, dry. * NEUROLOGIC: No focal neurological deficits. CN II-XII grossly intact * PSYCHIATRIC: Appropriate mood and affect. Good judgement and insight. DS: Data Data Completed and Pending Labs on day of discharge: Labs from last 24 hours 08/15/24 08/14/24 05:13 23:38 WBC 3.7 L RBC 2.96 L Hgb 9.0 L Hct 28.6 L MCV 96.6 MCH 30.4 MCHC 31.5 L RDW 17.9 H Plt Count 213 MPV 9.3 Sodium 144 Potassium 3.6 Chloride 113 H Carbon Dioxide 22 Anion Gap 9 BUN 10 Creatinine 1.04 H Estim Creat Clear Calc 52 Estimated GFR 53 L Glucose 92 Calculated Osmolality 297 H Calcium 6.3 L Total Bilirubin 0.5 AST 40 H ALT 30 Alkaline Phosphatase 148 H Total Protein 5.1 L Albumin 1.8 L Urine Color Light yellow Urine Appearance Clear Urine pH 6.5 Ur Specific [place] 1.015 Urine Protein Negative Urine Glucose (UA) Negative Urine Ketones Negative Ur Blood (Man) 2+ H Urine Nitrate Negative Urine Bilirubin Negative Urine Urobilinogen 0.2 Leukocyte Esterase Rfl 2+ H Urine RBC 0-2 Urine WBC 10-15 H Ur Squamous Epith Cells Few Urine Bacteria Trace Discharge Plan Discharge Attending physician on discharge: Johann Gillespie Consulting providers: Dora Mcneal Discharging Clinician: Dora Mcneal Anticipated Discharge Date/Time: 08/15/24 10:24 Patient Disposition: Home, Self-Care Activity: may shower and as tolerated Diet: regular Discharge Instructions: Low Calcium/Low Potassium * Continue with supplements as prescribed * I have provided and order for follow up CBC/CMP to be completed next week to evaluate electrolytes * I have discontinued your alendronate at this time because this can cause worsening hypocalcemia (Low calcium) * Please and make follow-up with your Seed Specialist * Please reduce your oral potassium to Daily if your follow-up potassium is greater then 5.0 Bilateral lower leg swelling; * Continue with Lasix 40mg daily I have also added spironolactone * I have also provided a prescription for potassium supplement please take while you are taking lasix * You will need close monitoring of your renal function while on Lasix please follow-up with your division human resources manager * Please Philip wrap legs or apply compression stockings may remove when at rest * elevate lower extremities when at rest * I recommend a 1.5L to 2L fluid restriction How can you care for yourself at home? ? Keep track of any new symptoms or changes in your symptoms. ? Rest until you feel better. ? Be safe with medicines. Take your medicines exactly as prescribed. Call your doctor if you think you are having a problem with your medicine. ? Do not drive after taking a prescription pain medicine. ? Ensure to follow-up with primary care physician as indicated and provide updated medication list provided to you at discharge. When should you call for help? Call 911 anytime you think you may need emergency care. For example, call if: ? You passed out (lost consciousness). Call your doctor now or seek immediate medical care if: ? You have new symptoms like fever, difficulty breathing, Chest pain, vomiting, or rash. ? You have new or different pain. ? You are confused and are having trouble thinking clearly. ? Your symptoms are getting worse. Watch closely for changes in your health, and be sure to contact your doctor if: ? You do not get better as expected. Patient Instructions: Antibiotic Form, Hypokalemia (DC), Leg Edema (ED), Hypocalcemia (DC), Edema (DC) Patient Language: Kazakh Stand Alone Forms: General Discharge Information Follow-up/Referrals: Priyank Zepeda MD [Primary Care Provider] - 1 week (Review follow-up labs) Discharge Medications: New furosemide 40 mg Tablet 40 mg PO DAILY Qty: 30 0RF sodium bicarbonate 650 mg Tablet 1,950 mg PO DAILY Qty: 90 0RF spironolactone 25 mg tablet 25 mg PO DAILY Qty: 30 0RF Continued cyanocobalamin (vitamin B-12) 2,500 mcg PO DAILY ergocalciferol (vitamin D2) [Vitamin D2] 1,250 mcg (50,000 unit) Capsule 1,250 mcg PO WEEKLY Patient Comments: On Mondays calcium citrate 250 mg calcium Tablet 760 mg PO BID Rx Instructions: 760MG/3.5GRAM ORAL GRANULES BID fluoxetine 40 mg capsule 40 mg PO BID amitriptyline 10 mg tablet 10 mg PO BID calcitriol 0.5 mcg capsule 0.25 mcg PO Q12H Rx Instructions: 2 CAPSULES IN THE MORNING AND EVENING ferrous sulfate [FeroSul] 325 mg (65 mg iron) tablet 325 mg PO TID levothyroxine 125 mcg tablet 125 mcg PO DAILY@0630 albuterol sulfate 90 mcg/actuation HFA aerosol inhaler 2 puff INHALATION Q4-6H PRN (Reason: shortness of breath or wheezing) Eliquis 5 mg tablet 5 mg PO BID beta carotene 30 mg capsule 30 mg PO DAILY pantoprazole 40 mg tablet,delayed release (DR/EC) 40 mg PO BID calcium carbonate [Tums] 200 mg calcium (500 mg) tablet,chewable 200 mg PO BID Changed potassium chloride 20 mEq tablet,ER particles/crystals 40 meq PO BID Qty: 60 0RF Discontinued metoprolol succinate 50 mg tablet extended release 24 hr 50 mg PO DAILY alendronate 10 mg tablet 10 mg PO DAILY Rx Instructions: daily hydroxyzine HCl 25 mg tablet 25 mg PO Q6-8H PRN (Reason: itching) sodium bicarbonate 650 mg tablet See Rx Instructions .ROUTE .COMPLEX Rx Instructions: take 4 tabs in morning, 5 in afternoon, and 4 at HS Other Ambulatory Orders: Complete Blood Count no Diff (Routine) Timeframe: 1 Week Location: Determined by Patient Ordered By: Dora Mcneal Comprehensive Metabolic Panel (Routine) Timeframe: 1 Week Location: Determined by Patient Ordered By: Dora Mcneal Date of admission: 08/13/24 23:42 Primary Care Provider: Priyank Zepeda Admitting Provider: Johann Gillespie Attending physician on admission: Johann Gillsepie Condition: Stable Quality VTE Prophylaxis VTE prophylaxis: pharmacologic ordered -Patient's previous records reviewed on admission -ER notes reviewed in detail on admission -discussed all findings and current treatment plan with patient/Family/POA -Consultations reviewed for recommendations -Patient's disposition for safe discharge discussed with heel caser Dictation performed by [employer] direct speech recognition software, therefore shipwright helper variants and typographical errors may occur. Hospitalist MIPS Heart Failure (Exclusion) Patient has history of Heart Transplant or Left Ventricular Assistive Device?: No IF YES, STOP HERE Heart Failure (Qualifier) Patient has current or prior documentation of LVEF less than or equal to 40%, or mod/servere depressed LVSF?: No IF NO, STOP HERE
--- NOTE | 2024-08-15 11:38 | PC.NURSE ---
Spoke with Louise informing she needed to follow up with Dr. Zepeda in 1 week. She indicated should would make the appointment and have her blood work completed so he could go over it while she was there.
[2024-08-15 12:00] VITALS: BP 117/55; PULSE 60; PULSE 89; RESP 14; TEMP 37.1; O2SAT 94
--- NOTE | 2024-08-15 18:00 | PC.NURSE ---
Discaharge isntructions reviewed with patient. Pt transported via wheelchair and assisted into private vehicle.
--- NOTE | 2024-08-16 09:23 | PC.NURSE ---
Discharge call back complete, received dc instructions question regarding compression stockings, reviewed with patient, could use lake if current ones are too small, states is planning to order a larger size, too hard to wrap legs with lake by herself.
== END 2024-08-15 18:00 | disposition home or self-care (01) ==
LOC: CHSED 23:42 → CHS2ND 08-14 07:22
PROVIDERS: Nurse Practitioner Family; Admitting Provider Internal Medicine; Emergency Provider Emergency Medicine; PCP Internal Medicine; Visit Provider Internal Medicine
DX: E87.6 Hypokalemia (principal); E83.51 Hypocalcemia; E83.42 Hypomagnesemia; R60.0 Localized edema; I81 Portal vein thrombosis; I12.9 Hypertensive chronic kidney disease with stage 1 through stage 4 chronic kidney disease, or unspecified chronic kidney disease; N18.9 Chronic kidney disease, unspecified; E03.9 Hypothyroidism, unspecified; E89.2 Postprocedural hypoparathyroidism; K42.9 Umbilical hernia without obstruction or gangrene; Z90.49 Acquired absence of other specified parts of digestive tract; Z98.84 Bariatric surgery status; Z79.01 Long term (current) use of anticoagulants; Z79.51 Long term (current) use of inhaled steroids; Z79.899 Other long term (current) drug therapy
CPT/HCPCS: 36415; 71045; 80048; 80053; 81001; 83735; 83880; 84100; 85025; 85027; 85610; 85730; 87086; 87088; 93005; 96365; 96366; 96367; 96375; 99285; A9270; G0378; G0379; J0613; J3475; J3480; J7050; P9047

== ENCOUNTER 2024-08-22 11:01 | Outpatient (CLI) | payer OTHER, SELFPAY ==
[2024-08-22 11:16] LABS: Hematocrit 33.3 % (35.0-42.0); Hemoglobin 10.2 g/dL (11.7-13.8); Mean Corpuscular HGB Conc 30.6 g/dL (32-36); Mean Corpuscular Hemoglobin 30.6 pg (27.0-31.0); Mean Platelet Volume 9.2 fl (9.2-11.8); Platelet Count Result 237 K/mm3 (150-420); Red Blood Count 3.33 M/mm3 (4.20-5.40); Red Cell Distribution Width 17.3 % (11.6-14.4); White Blood Count 5.6 K/mm3 (4.8-10.8)
[2024-08-22 11:54] LABS: Alanine Aminotransferase 34 U/L (14-59); Albumin Level 2.3 g/dL (3.4-5.0); Alkaline Phosphatase 206 U/L (46-116); Anion Gap 11 mmol/L (4-12); Aspartate Amino Transferase 29 U/L (15-37); Bilirubin,Total 0.6 mg/dL (0.00-1.00); Blood Urea Nitrogen 11 mg/dL (7-18); Calcium 7.9 mg/dL (8.5-10.1); Carbon Dioxide 19 mmol/L (21-32); Chloride 113 mmol/L (98-108); Estimated Glomerular Filt Rate 50; Glucose 89 mg/dL (70-99); Osmolality Calculated 294 mOsm/kg (285-295); Potassium 4.2 mmol/L (3.5-5.1); Sodium 143 mmol/L (136-145)
--- OUTSIDE RECORDS SUMMARY | 2024-08-22 12:02 | XMS_ITS | Clinical Summary ---
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 [place] [address] PCP - General 03/11/02
--- OUTSIDE RECORDS SUMMARY | 2024-08-22 12:02 | XMS_ITS | Data Portability ---
Author Organization [facility], [address] [place] [address] Neurology ([place]) Address [address] [address] Care Team Providers Care Soils Technician Name Role Phone KIERAN CALL Primary Care Provider Assessment Encounter Date Assessment Date Assessment LastModified by Organization Details LastModified Time 10/17/2023 10/17/2023 - Keep already scheduled appointment with GI -secure an appointment with hematology -follow up with your PCP if needed -Call this office with any questions or concerns [email or web address] Not available 10/17/2023 14:57:46 Plan of Treatment [...] city possi ble) ----- 53.3 Not Available [facility] - All Sites [address] [place] [address] [address], [place], [address], 06/05/2024 01:21:09 10/02/19 24 10/02/2023 PTH (para [...] anni rable . ----- 182.5 Not Available [facility] [address], [address], 06/05/2024 01:21:09 10/02/19 24 10/02/2023 phosp horus , serum or plasm a phosphorus 2 mg/dL 2.5-4. 9 low Not Available Test [facility] [address] [place], [address], 06/05/2024 01:21:08 10/02/19 24 10/02/2023 BMP, blood sodium 140 mmol/ L 136-14 5 Not Available [facility] [address], [place], [address], 06/05/2024 01:21:02 10/02/19 24 10/02/2023 BMP, blood potassium 2.9 mmol/ L 3.5-5. 1 low criti benjamin resul t(s) dial d to and read back by: vicky blanton at: 16:07 :22 10/01 by assp. ----- 2.9 Not Available [facility] [address], [place], [address], 06/05/2024 01:21:02 10/02/19 24 10/02/2023 BMP, blood chloride 110 mmol/ L 98-107 high Not Available [facility] [address], [place], [address], 06/05/2024 01:21:02 10/02/19 24 10/02/2023 BMP, blood CO2 24.9 mmol/ L 21.0-3 2.0 Not Available [facility] [address], [place], [address], 06/05/2024 01:21:02 10/02/19 24 10/02/2023 BMP, blood anion gap 5.1 mmol/ L 5.0-15 .0 Not Available [facility] [address] [facility] [address], [place], [address], 06/05/2024 01:21:02 10/02/19 24 10/02/2023 BMP, blood glucose 116 mg/dL 74-106 high Not Available [place] [address], [place], [address], 06/05/2024 01:21:02 10/02/19 24 10/02/2023 BMP, blood BUN 11 mg/dL 7-18 Not Available [place] [address], [place], [address], 06/05/2024 01:21:02 10/02/19 24 10/02/2023 BMP, blood creatinine 0.91 mg/dL 0.55-1 .02 Not Available [facility] [address], [place], [address], 06/05/2024 01:21:02 10/02/19 24 10/02/2023 BMP, blood calcium 7.8 mg/dL 8.5-10 .1 low Not Available [facility] [address] [facility] [address], [place], [address], 06/05/2024 01:21:02 10/02/19 24 10/02/2023 BMP, blood eGFR 70 mL/mi n/1.7 3_M2 >90 low Not Available [place] [address] [facility] [address], [place], [address], 06/05/2024 01:21:02 10/02/19 24 10/02/2023 BMP, blood calculated osmolality 290 mOsm/ kg refer ence range not estab lishe d ----- 290 Not Available [facility] [address], [place], [address], 06/05/2024 01:21:02 10/02/19 24 10/02/2023 BMP, blood [...] mL/mi n/1.7 3 m2 ----- Not Available [facility] [address], [place], [address], 06/05/2024 01:21:02 01/18/20 24 12/07/2022 imagi ng/di [...] Name and Address Organization Details Recorded Time 639585 adhesive tape environme nt,medica tion rash Not available Not available 07/03/20232013 33751 UNK React ion: Rash; Comme nt: Adhes messi Tape React ion Date: 27 Jul 2012 ; Not Available Not Available Not Available 127226 Cipro medicatio n Not available Not available Not available 07/03/20232013 56662 3 RxNorm Comme nt: React ion Date: 01 Jan 2013 ; Not Available Not Available Not Available 797343 succinylc holine chloride medicatio n Not available Not available Not available 07/03/20232015 3565 RxNorm Not Available Not Available Not Available Medications Name Sig Start Date Stop Date Status Note LastModified by Organization Details LastModified Time Prescription - New active Division Supervisor: MEGHAN NIMESH (Audiology) , Sergey n Form [...] Do You Have A Medical Power Of Certified Dental Assistant? Yes [email or web address] Information not available 10/16/2023 What [...] eye surgery (?glaucoma) Medical History Condition Response Diabetes N Anxiety Disorder Y Bleeding Disorder N Attention-deficit Hyperactivity Disorder N High Blood Pressure Y Arthritis Y Hyperlipidemia N Cancer N Stroke N Thyroid Problems N Asthma N Depression Y COPD N Anemia Y Seizures N Heart Disease N Fibromyalgia N Osteoporosis Y Kidney Disease Y Gynecological HistoryNo gynecological history recorded. Obstetrics History GPAL:G 0 P 0 0 0 0 Past Encounters Encounter ID Performer Location Encounter Start Date Encounter Closed Date Diagnosis/Indication Diagnosis SNOMED-CT Code Diagnosis ICD10 Code Diagnosis Note [id number] DO Catia Melendrez [facility] ([place]) [address] [place] [address] 10/17/2023 14:31:01 10/18/2023 15:51:26 Hospital inpatient stay within past 30 days [id number] 106 Z76.89 Health Concerns Section Related Observation LastModified by Organization Rayray ls LastModified Time None Recorded Concern Status LastModified by Organization Details LastModified Time None Recorded Advance Directives Directive Y: Payers Encounter Date Sequence Insurance Name Policy Number Policy Juares Covered Member ID Juares Member ID Guarantor Name 10/17/2023 1 [facility] ON OR AFTER 12/03/20 (MEDICAID REPLACEMENT - HMO) Louise Griffithjordin [id number] Louise Bailey Teresa Notes Date Note Type [...] appointment scheduled for November 01 with GI KNIFE CUTTER for consultation. She is eating and drinking well. She denies n/v. YULISSA MARTINEZ, CHIP APPLYING MACHINE TENDER-C [address] [place] [address], [phone], [facility] 10/17/2023 14:58:51 OBGyn Episode No OBEpisode recorded.
--- OUTSIDE RECORDS SUMMARY | 2024-08-22 12:02 | XMS_ITS ---
Author Organization Unknown Address [address] [place] [phone] Phone Care Team Providers Care Hr Specialist Name Role Phone GARFIELD Ashby Attending [...] em Smoking History Never smoker (Never Smoked) 921238330 SNOMED CT Sex Female Vital Signs Vital Sign Value Unit Washita Value Washita Unit Date/Time Recent/Initial? Code Code System Body Mass Index 30.45 kg/m2 11/13/2023 14:43 Initial 48536 -5 INC Systolic Blood Pressure 136 mm[Hg] 12/14/2023 08:17 Initial 8480- 6 LOINC Diastolic Blood Pressure 78 mm[Hg] 12/14/2023 08:17 Initial 8462- 4 INC Body Surface Area 1.95 m2 11/13/2023 14:43 Initial 3140- 1 LOINC Height 165.100 0 cm 65.00 in 11/13/2023 14:43 Initial 8302- 2 INC O2 Saturation 99 % 2023 08:17 Initial 52938 -5 INC Pulse 57.0 /min 12/14/2023 08:17 Initial 8867- 4 LOINC Respiration 20 /min 12/14/19 08:17 Initial 9279- 1 LOINC Temperature 36.2 Kait 97.1 F 12/14/19 24 08:17 Initial 8310- 5 LOINC Weight 83.01 kg 183.00 lbs 11/13/2023 14:43 Initial 08805 -7 [facility] Medications Medication Start Date End Date Route Frequency Dose Code Code System Medication Instructions Home Meds Vitamin B12 1000 MCG Sublingual Tablet 12/14/2023 Unknown SUBLINGUAL ONCE A DAY [address] 1000 MCG SUBLINGUAL ONCE A DAY Tums Extra Strength 750 MG Oral Tablet, Chewable 12/14/2023 Unknown ORAL NEEDED 750 MG 6366052 RxNorm TAKE 750 MG ORAL NEEDED Amitriptyline 10MG Oral Tablet 12/14/2023 Unknown ORAL TWICE A DAY 10 MILLIGRA MS 077603 RxNorm TAKE 10 MILLIGRAMS ORAL TWICE A DAY Calcitriol 0.5MCG Oral Capsule, Liquid Filled 12/14/2023 Unknown ORAL TWICE A DAY 2 CAPSULE 699478 RxNorm TAKE 2 CAPSULE ORAL TWICE A DAY Calcium Citrate Powder 12/14/2023 Unknown ROUTE NOT APPLICABLE 1 unit(s) RxNorm 1 EACH ROUTE NOT APPLICABLE Eliquis 5MG Oral Tablet 12/14/2023 12/14/19 24 ORAL TWICE A DAY 5 MILLIGRA MS 8532779 RxNorm TAKE 5 MILLIGRAMS ORAL TWICE A DAY FLUoxetine 20MG/5ML Oral Solution 12/14/2023 Unknown ORAL TWICE A DAY 477928 RxNorm TAKE mL ORAL TWICE A DAY Iron 325MG Oral Tablet 12/14/2023 Unknown ORAL THREE TIMES A DAY 325 MILLIGRA MS 668497 RxNorm TAKE 325 MILLIGRAMS ORAL THREE TIMES A DAY Levothyroxine 125MCG Oral Tablet 12/14/2023 Unknown ORAL ONCE A DAY 0.5 TABLET 597282 RxNorm TAKE 0.5 TABLET ORAL ONCE A DAY Loratadine 10MG Oral Tablet 12/14/2023 Unknown ORAL NEEDED 10 MILLIGRA MS 546364 RxNorm TAKE 10 MILLIGRAMS ORAL NEEDED Metoprolol Succinate 50MG Oral Tablet, Extended Release 12/14/2023 Unknown ORAL ONCE A DAY 50 MILLIGRA MS 316213 RxNorm TAKE 50 MILLIGRAMS ORAL ONCE A DAY Potassium Chloride 20MEQ Oral Tablet, Extended Release 12/14/2023 Unknown ORAL TWICE A DAY 20 MEQ 6242093 RxNorm TAKE 20 MEQ ORAL TWICE A DAY Sodium Bicarbonate 650MG Oral Tablet 12/14/2023 Unknown ORAL THREE TIMES A DAY 650 MILLIGRA MS 841231 RxNorm TAKE 650 MILLIGRAMS ORAL THREE TIMES A DAY Tab-A-Ezio [id number] U-6MCG Oral Tablet 12/14/2023 Unknown ORAL ONCE A DAY 1 unit(s) 946211 RxNorm TAKE 1 EACH ORAL ONCE A [...] Code Syste m Vocal cord nodule completed 02598853 SNOMEDC T Fracture of tibia completed 08043289 SNOMEDC T Volvulus completed 7372659 SNOMEDCT APPENDECTOMY completed 76645205 SNOMEDCT Removal of kidney stone completed 3858443 S NOMEDCT Anesthesia for lower intesti nal endoscopic procedures, endoscope introduce 12/14/2023 completed 78973 CPT Gastric bypass completed 802027030 SNOMEDCT History of parathyroidectomy completed 4111439 60086642 SNOMEDCT Colonoscopy, flexible; with biopsy, single or multiple 12/14/2023 completed 61477 CPT Problems Problem Start Date Resolved Date Status Code Code System CHRONIC KIDNEY DISEASE, STAG E 3A active 256938936 SNOMED-CT Allergies and Adverse Reactions Allergy Substance Reaction Severity Start Date Concern Status Code Code System ADHESIVE Itching (SNOMED-CT: 821348667) Active SUCCINYLCHOLINE CHLORIDE HARD TO WAKE UP (SNOMED-CT: null) Active 3565 RxNorm CIPRO REDNESS IV ONLY (SNOMED-CT: null) Mild Active 922255 RxNorm No Known Drug Allergies Active 339914386 SNOMED-CT Plan of Treatment Colonoscopy 12/14/2023 Encounters Encounter Diagnosis Start Date Code Code Sys tem Noninfective gastroenteritis and colitis, unspecified 12/14/2023 SNOMED-CT Personal Care Team Section Performer Name Performer Role Active Date Inactive KIERAN Gilbert PCP - Primary care physician 2024-04-16
--- OUTSIDE RECORDS SUMMARY | 2024-08-22 12:02 | XMS_ITS | Encounter Summary ---
Author Organization [facility] Address [address] [place] [address] Phone Care Team Providers Care Clean Up Person Name Role Phone Priyank Zepeda MD Primary Care Provider Encounter Details Date Type Department Care Team (Late Contact Info) Description 12/06/2019 Orders Only [facility] [address] [place] [phone] Kristofer Ortiz MD [address] [place] [address] Chronic kidney disease stage 3 [...] Description 10/22/2024 10:45 AM CDT Office Visit [facility] [address] [place] [phone] Kristofer Ortiz MD [address] [place] [address] [address] documented as of this encounter Visit Diagnoses Diagnosis Chronic kidney disease stage 3 (HCC) documented in this encounter Care Teams Clean Up Person Relationship Specialty Start Date End Date Priyank Zepeda MD [address] [place] [address] PCP - General Internal Medicine 05/17/19 documented as of this encounter
--- OUTSIDE RECORDS SUMMARY | 2024-08-22 12:02 | XMS_ITS | Encounter Summary ---
Author Organization [facility] Address [address] [place] [address] Phone Care Team Providers Care Director Mobile Media Solutions Name Role Phone Priyank Zepeda MD Primary Care Provider [phone] Reason for Visit * Reason Onset Date Comments Medication Management 08/16/2024 Encounter Details Date Type Department Care Team (Late st Contact Info) Description 08/16[facility]20[facility] [address] [place] [address] Eloisa Ruiz, PT Medication Management Social History [...] Telephone Encounter - Eloisa Ruiz, PT - 08/16/2024 3:33 PM CDT S - Medication discrepancies B - Current [facility] patient [facility] observation at [facility] for low potassium from /08/15/24. A -changes on DC med list : now taking calcium citrate 250mg, take 760mg 2x/day spironolactone - has not picked up calcitriol 0.5mg has changed to : take 2 capsules in the morning and evening albuterol sulfate 90 mcg 2 puff inhalation eveyr 4-6 hours prn for SOB and wheezing Levothyroxine 125 mcg changed to : take 1 daily I HAVE REQUESTED A VERBAL ORDER FROM HER PCP FOR A NURSE TO EVAL I FEEL I AM STRUGGLING WITH GETTING HER MED LIST TO BE CORRECT Pt follows up with her PCP on Monday08/23/24. R - Please review the above med discrepancies and update the medication list in EPIC to reflect theany changes. Notify Home Health when complete to facilitate patient education. documented in this encounter Plan of Treatment Upcoming Encounters Date Type Department Care Team (Late st Contact Info) Description 08/22/2024 1:00 PM CDT [facility] [address] [place] [address] Viola Richard, WASH HELPER [place] 08/23/2024 1:00 AM CDT [facility] [address] [place] [address] Asia Salazar, CABLE WAY OPERATOR [place] 08/27/2024 1:00 AM CDT [facility] [address] [place] [address] Asia Salazar, [place] 08/27/2024 11:00 AM CDT [facility] [address] [place] [address] Viola Richard, WASH HELPER [place] 08/29/2024 11:00 AM CDT [facility] [address] [place] [address] Viola Richard, WASH HELPER [place] 08/30/2024 1:00 AM CDT [facility] [address] [place] [address] Asia Salazar, [place] 09/02/2024 1:00 AM CDT [facility] [address] [place] [address] Eloisa Ruiz, PT 09/04/2024 1:00 AM CDT [facility] [address] [place] [address] Viola Richard, WASH HELPER [place] 09/04/2024 2:00 AM CDT [facility] [address] [place] [address] Asia Salazar OTA [place] 09/06/2024 1:00 AM CDT [facility] [address] [place] [address] Asia Salazar OTA [place] 09/10/2024 1:00 AM CDT Home Care Visit [address] [address] Moni Mendoza OT 09/12/2024 1:00 AM CDT Home Care Visit [facility] [address] Asia Salazar, [facility] documented as of this encounter Visit Diagnoses Not on filedocumented in this encounter Care Teams Director Mobile Media [employer] Relationship Specialty Start Date End Date Priyank Zepeda MD [address] [place] [address] PCP - General Internal Medicine 08/08/24 documented as of this encounter
--- OUTSIDE RECORDS SUMMARY | 2024-08-22 12:02 | XMS_ITS | Encounter Summary ---
Author Organization [facility] Address [address] [facility] [address] [facility] [place] [address] Phone Care Team Providers Care Ultrasound Technologist Sonographer Name Role Phone Priyank Zepeda MD Primary Care Provider [phone] Encounter Details Date Type Department Care Team (Late Contact Info) Description 01/03/2020 Orders Only [facility]. [address] [facility] [address] [place] [address] Kristofer Ortiz MD [address] [facility] [address] [place] [address] Chronic kidney disease stage 3 [...] Description 10/22/2024 10:45 AM CDT Office Visit [facility] [address] [facility] [address] [place] [phone] Kristofer Ortiz MD [address] [place] [address] [address] documented as of this encounter Visit Diagnoses Diagnosis Chronic kidney disease stage 3 (HCC) documented in this encounter Care Teams Ultrasound Technologist Sonographer Relationship Specialty Start Date End Date Priyank Zepeda MD [address] [place] [address] PCP - General Internal Medicine 05/17/19 documented as of this encounter
--- OUTSIDE RECORDS SUMMARY | 2024-08-22 12:02 | XMS_ITS | Clinical Summary ---
Author Organization [facility] Address [address] [address] Care Team Providers Care Automatic Cigar Wrapper Tender Name Role Phone Priyank Zepeda MD Primary Care Provider [phone] Allergies Active Allergy Reactions Criticality Noted Date [...] mouth in the morning. 5 Active pancrelipase, Vgd-Gvmc-Ozma, (CREON) [address] units capsule Take 1 capsule by mouth in the morning and 1 capsule at noon and 1 capsule in the evening. Take with meals. 5 Active Cholecalciferol (Vitamin D3) 1.25 MG (42821 UT) capsule Take 50,000 Units by mouth in the morning and 50,000 Units in the evening. Active multivitamin-ir lv-gcymvpug-irp ic acid (CENTRUM) chewable tablet Chew 1 [...] 25 Discontinu ed(Therapy completed) ergocalciferol 1.25 MG (82930 UT) capsule Take 50,000 Units by mouth in the morning. 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 [address] [facility] [facility] [address] [place] [phone] Kristofer Ortiz MD [address] [facility] [place] [address] Health Maintenance Due Date Last Done Comments [...] to complete this topic Insurance [facility] Advance Directives Documents on File Type Date Recorded Patient Metal Expediter Expl anation Power of Trust Administrator 10/25/2021 11:10 AM Othe r - POA Power of Trust Administrator 10/25/2021 11:10 AM Othe r - POA Care Teams Automatic Cigar Wrapper Tender Relationship Specialty Start Date End Date Priyank Zepeda MD [address] [place] [address] PCP - General Internal Medicine 05/17/19
--- OUTSIDE RECORDS SUMMARY | 2024-08-22 12:02 | XMS_ITS | Encounter Summary ---
Author Organization [facility] Address [address] [place] [address] Phone Care Team Providers Care Laser Set Up Operator Name Role Phone Priyank Zepeda MD Primary Care Provider [phone] Reason for Visit * Reason Onset Date Comments Medication Management 08/13/2024 Encounter Details Date Type Department Care Team (Late st Contact Info) Description 08/13/2024 [facility] [address] [place] [address] Eloisa Ruiz, PT Medication Management Social History [...] 08/22/2024 1:00 PM CDT Home Care Visit [address] [address] Viola Richard, LADIES ATTENDANT [place] 08/23/2024 1:00 AM CDT Home Care Visit [facility] [address] Asia Salazar, [place] 08/27/2024 1:00 AM CDT Home Care Visit [facility] [address] Asia Salazar, [place] 08/27/2024 11:00 AM CDT Home Care Visit [facility] [address] Viola Richard, LADIES ATTENDANT [place] 08/29/2024 11:00 AM CDT Home Care Visit [facility] [address] Viola Richard, LADIES ATTENDANT [place] 08/30/2024 1:00 AM CDT Home Care Visit [facility] [address] Asia Salazar, [place] 09/02/2024 1:00 AM CDT Home Care Visit [facility] [address] Eloisa Ruiz, PT 09/04/2024 1:00 AM CDT [facility] [address] [place] [address] Viola Richard, LADIES ATTENDANT [place] 09/04/2024 2:00 AM CDT [facility] [address] [place] [address] Asia Salazar, TECHNICAL REPORT WRITER [place] 09/06/2024 1:00 AM CDT Home Care Visit [facility] [address] Asia Salazar, TECHNICAL REPORT WRITER [place] 09/10/2024 1:00 AM CDT [facility] [address] [place] [address] Moni Mendoza OT 09/12/2024 1:00 AM CDT [facility] [address] [place] [address] Asia Salazar, [facility] documented as of this encounter Visit Diagnoses Not on filedocumented in this encounter Care Teams Laser Set Up Operator Relationship Specialty Start Date End Date Priyank Zepeda MD [address] [place] [address] PCP - General Internal Medicine 08/08/24 documented as of this encounter
--- OUTSIDE RECORDS SUMMARY | 2024-08-22 12:02 | XMS_ITS | Clinical Summary ---
Author Organization [facility] Address [address] [address] Phone Care Team Providers Care Travel Assistant Name Role Phone Priyank Zepeda MD Primary Care Provider [phone] Allergies No known active allergies Medications calcium [...] mg by mouth 2 times daily. Active ferrous sulfate 325 (65 Fe) MG Tablet Take 325 mg by mouth 3 times daily. Active levothyroxine (SYNTHROID) 125 MCG Tablet Take 0.5 Tablets by mouth daily. Active pantoprazole (PROTONIX) 40 MG Tablet Delayed Response Take 40 mg by mouth 2 times daily. Active Potassium Chloride ER (KLORCON) 20 MEQ Tablet Controlled Release Take 40 mEq by mouth 2 times daily. take 2 tablets by mouth (40MEQ), twice a day 08/16/19 Active triamcinolone (KENALOG) 0.1 % Cream Apply 0.1 % 2 times daily. Apply a thin layer to the affected areas by topical route 2 times per day 08/13/19 Active Pancrelipase, Pwe-Vtqw-Vlri, (CREON PO) Take 24,000 Units by mouth 3 times daily (with meals). Take 1 capsule by mouth 3 times daily with meals 08/08/19 Active spironolactone (ALDACTONE) 25 MG Tablet Take 25 mg by mouth daily. 08/21/19 Active BETA CAROTENE PO Take 7,500 mcg by mouth daily. 08/21/19 Active Cyanocobalamin (VITAMIN B12 PO) Take 2,500 mcg by mouth daily. 08/21/19 Active pancrelipase, lipase-protease -amylase, (Creon) [address]-[address] Particles Take 1 Capsule by mouth 3 times daily. 3 times daily with meals 08/21/19 Active triamcinolone (KENALOG) 0.1 % Cream Apply 1 Application 2 times daily. Apply a thin layer to the affected areas (bilateral feet). 08/21/19 Active albuterol (ProAir HFA) 108 (90 Base) MCG/ACT Aerosol Solution take 2 Puffs by inhalation every 4 hours as needed for Wheezing. 08/21/19 Active hydrOXYzine (ATARAX) 25 MG Tablet Take 25 mg by mouth. every 6-8 hours prn for severe itching Discontinu ed(Discont inued by another clinician) alendronate (FOSAMAX) 10 MG Tablet Take 10 mg by mouth. every morning on empty stomach with 8 oz of water, nothong else for 30 minutes, dont lay down. Discontinu ed(Discont inued by another clinician) Encounters Date Type Department Care Team Description 08/20/2024 12:00 PM CDT Home Care Visit [address] [address] Mary Perez RN SN - [facility] INITIAL EVALUATION 08/20/2024 11:15 AM CDT Home Care Visit [facility] [address] Moni Mendoza, OT OT - HOME VISIT 08/20/2024 10:00 AM CDT Home Care Visit [facility] [address] Viola Richard, DEVELOPMENT ADVISOR [place] - HOME VISIT 08/20/2024 Travel 08/18/2024 Home Care Visit [facility] [address] Eloisa Ruiz, PT CARE CONFERENCE 08/16/2024 1:30 PM CDT Home Care Visit [facility] [address] Eloisa Ruiz, PT PT - HOME VISIT 08/16/2024 12:45 PM CDT Home Care Visit [facility] [address] Moni Mendoza, OT OT - INITIAL EVALUATION 08/16/[address] [address] Eloisa Ruiz, PT Medication Management 08/14/2024 Home Care Visit [facility] [address] Eloisa Ruiz, PT TELEPHONE ENCOUNTER 08/14/2024 Home Care Visit [facility] [address] Eloisa Ruiz, PT TELEPHONE ENCOUNTER 08/13/2024 2:30 PM CDT Home Care Visit [facility] [address] Eloisa Ruiz, PT PT - [place] START OF CARE 08/13/[address] [address] Eloisa Ruiz, PT Medication Management 08/13/2024 Plan of Care Documentation [address] [address] from Last 3 Months Social History Tobacco Use Types Packs/Day Years Used Date Smoking Tobacco: Never Assessed Comments Unknown Sex and Gender Information Value Date Recorded Sex Assigned at Not on file Legal Sex Female 11:40 PM CDT Gender Identity Not on file Sexual Orientation Not on file Last Filed Vital Signs Vital Sign Reading Time Taken Comments Blood Pressure 130/68 08/20/2024 3:42 PM CDT Pulse 92 08/20/2024 3:42 PM CDT Temperature 36.7 C (98.1 F) 08/20/2024 3:42 PM CDT Respiratory Rate 18 08/20/2024 3:42 PM CDT Oxygen Saturation 98% 08/20/2024 3:42 PM CDT Inhaled Oxygen Concentration - - Weight - - Height 165.1 cm (5' 5 ) 08/16/2024 1:33 PM CDT Body Mass Index - - Plan of Treatment Upcoming Encounters Date Type Department Care Team (Late st Contact Info) Description 08/22/2024 1:00 PM CDT Home Care Visit [address] [address] Viola Richard, DEVELOPMENT ADVISOR [place] 08/23/2024 1:00 AM CDT Home Care Visit [address] [address] Asia Salazar OTA [place] 08/27/2024 1:00 AM CDT Home Care Visit [address] [address] Asia Salazar OTA [place] 08/27/2024 11:00 AM CDT Home Care Visit [facility] [address] Viola Richard DEVELOPMENT ADVISOR [place] 08/29/2024 11:00 AM CDT Home Care Visit [facility] [address] Viola Richard, DEVELOPMENT ADVISOR [place] 08/30/2024 1:00 AM CDT Home Care Visit [facility] [address] Asia Salazar OTA [place] 09/02/2024 1:00 AM CD[facility] [address] [place] [address] Eloisa Ruiz, PT 09/04/2024 1:00 AM CDT [facility] [address] [place] [address] Viola Richard, DEVELOPMENT ADVISOR [place] 09/04/2024 2:00 AM CDT [facility] [address] [place] [address] Asia Salazar, SALES FORCE ADMINISTRATOR [place] 09/06/2024 1:00 AM CDT [facility] [address] [place] [address] Asia Salazar, SALES FORCE ADMINISTRATOR [place] 09/10/2024 1:00 AM CDT Home Care Visit [facility] [address] Moni Mendoza OT 09/12/2024 1:00 AM CDT Home Care Visit [facility] [address] Asia Salazar, [facility] Health Maintenance Due Date Last Done Comments [...] Insurance MEDICAID [employer] Advance Directives Documents on File Type Date Recorded Patient Multimedia Manager Expl anation Power of Retail Associate Manager Bilingual for Health Care 08/14/2024 12:10 PM POA HC 07/30/2024 * Full Code (Latest Code Status on File) Date Activated Date Inactivated Comments 08/13/2024 10:26 PM Care Teams Travel Assistant Relationship Specialty Start Date End Date Priyank Zepeda MD [address] [place] [address] PCP - General Internal Medicine 08/08/24
--- OUTSIDE RECORDS SUMMARY | 2024-08-22 12:02 | XMS_ITS | Clinical Summary ---
Author Organization [facility] Address [address] [place] [address] Care Team Providers Care Fuel Verification Technician Name Role Phone Priyank Zepeda MD Primary Care Provider [phone] Source Comments [facility],non-owned Affiliates and Associated Physician Practices is amultiple site organization consisting of ambulatory clinics and hospital sitesin [place], [place], [place] and [place]. This disclosure is being madepursuant to the Care Everywhere program and may not contain all information available regarding this patient. Last updated 18.[facility] Allergies Active Allergy Reactions Criticality Noted Date [...] 5 Active Cholecalciferol (vitamin D3) 1.25 MG (73681 UT) capsule Take 1 (one) capsule by mouth every 7 days 5 capsule 5 Active furosemide (Lasix) 40 MG tablet Take 1 (one) tablet by mouth once daily 30 tablet 5 Active Calcium Carbonate Antacid (calcium carbonate, 500 mg elemental Ca/5 mL,) 1250 MG/5ML suspension Take 10 mL by mouth 3 times daily with meals 473 mL 1 5 Active pancrelipase (Creon 24,000) 30472-11040 units capsule Take 1 (one) capsule by [...] 5 08/08/19 25 Discontinued pancrelipase (Creon 24,000) 71764-46511 units capsule Take 1 (one) capsule by [...] Department Care Team Description 07/29/2024 8:42 AM MANAGER STRATE[employer]IC MARKETING Anesthesia Event [facility] [address] [place] [address] Bozena Osullivan DO Boyce, Lisa C, PAMELA-JOCY 07/29/2024 8:30 AM MANAGER STRATE[employer] MARKETING - 07/29/2024 9:00 AM MANAGER STRATEGIC MARKETING Surgery [facility] [address] [place] [address] Cathleen Estrada MD ESOPHAGOGASTRODUODENOSCOPY (EGD) DIAGNOSTIC 07/28/2024 2:19 PM MANAGER STR[employer]IC MARKETING - 08/07/2024 4:44 PM MANAGER STRATE[employer]IC MARKETING Hospital Encounter [facility] [id number] [place] [address] Yi Grier MD Fatima, Noor E, MD [...] medical care, and heating? Somewhat hard 07/28/2024 [facility] - Occupational Stress [...] Comments Blood Pressure 112/78 08/07/2024 2:44 PM MANAGER STR[employer]IC MARKETING Pulse 93 08/07/2024 2:44 PM MANAGER [employer]IC MARKETING Temperature 37.5 C (99.5 F) 08/07/2024 11:33 AM MANAGER STRATE[employer]IC MARKETING Respiratory Rate 18 08/07/2024 11:3 3 AM MANAGER STRATE[employer]IC MARKETING Oxygen Saturation 97% 08/07/2024 2:44 PM MANAGER STR[employer]IC MARKETING Inhaled Oxygen Concentration - - Weight 87.5 kg (192 lb 14.4 oz) 025 12:04 AM MANAGER STR[employer]IC MARKETING Height 165.1 cm (5' 5 ) 07/28/2024 4:01 PM MANAGER STRATE[employer]IC MARKETING Body Mass Index 32.1 07/28/2024 4:01 PM MANAGER [employer]IC MARKETING Plan of Treatment Health Maintenance Due Date [...] CARDIAC RHYTHM STRIP ORDER 08/08/2024 11:03 PM MANAGER [employer]IC MARKETING APHERESIS/TRANSFUSIO N ORDER 08/08/2024 11:03 PM MANAGER STRATE[employer]IC MARKETING B-TYPE NATRIURETIC PEPTIDE AM Draw 08/07/2024 1:59 AM MANAGER STRATE[employer]IC MARKETING COMPREHENSIVE METABOLIC PANEL AM Draw 08/07/2024 1:59 AM MANAGER STRATE[employer]IC MARKETING VAS BILATERAL VENOUS DUPLEX LE PENDING DISCHARGE 08/06/2024 2:30 PM MANAGER STR[employer]IC MARKETING Bilateral leg edema MAGNESIUM BLOOD Routine 08/06/2024 6:07 AM MANAGER STRATE[employer]IC MARKETING BASIC METABOLIC PANEL (CALCIUM TOTAL) Routine 08/06/2024 6:07 AM MANAGER STRATE[employer]IC MARKETING PHOSPHORUS BLOOD Routine 08/06/2024 6:07 AM MANAGER STRATE[employer]IC MARKETING MRI LUMBAR SPINE WO CONTRAST Routine 08/05/2024 9:48 AM MANAGER [employer]IC MARKETING Acute midline low back pain without sciatica PHOSPHORUS BLOOD Routine 08/05/2024 6:53 AM MANAGER STRATE[employer]IC MARKETING COMPREHENSIVE METABOLIC PANEL AM Draw 08/05/2024 6:53 AM MANAGER STRATE[employer]IC MARKETING MAGNESIUM BLOOD AM Draw 08/05/2024 6:53 AM MANAGER STR[employer]IC MARKETING CBC W AUTO DIFFERENTIAL AM Draw 08/05/2024 6:53 AM MANAGER STRATE[employer]IC MARKETING PROTEIN URINE TIMED QUANTITATIVE Routine 08/04/2024 1:55 PM MANAGER STRATE[employer]IC MARKETING URIC ACID URINE TIMED Routine 08/04/2024 1:55 PM MANAGER STRATEGIC MARKETING CREATININE CLEARANCE URINE TIMED + BLOOD Routine 08/04/2024 1:55 PM MANAGER STRATEGIC MARKETING CALCIUM URINE TIMED Routine 08/04/2024 1 :55 PM MANAGER STRATEGIC MARKETING COMPREHENSIVE METABOLIC PANEL AM Draw 08/04/2024 6:55 AM MANAGER STRATEGIC MARKETING MAGNESIUM BLOOD AM Draw 08/04/2024 6:55 AM MANAGER STRATE[employer]IC MARKETING CBC W AUTO DIFFERENTIAL AM Draw 08/04/2024 6:55 AM MANAGER STRATEGIC MARKETING URINALYSIS REFLEX TO MICROSCOPIC NO CULTURE Routine 08/03/2024 12:49 PM MANAGER STRATE[employer]IC MARKETING COMPREHENSIVE METABOLIC PANEL AM Draw 08/03/2024 9:26 AM MANAGER STRATEGIC MARKETING MAGNESIUM BLOOD AM Draw 08/03/2024 9:26 AM MANAGER STRATEGIC MARKETING CBC W AUTO DIFFERENTIAL AM Draw 08/03/2024 9:26 AM MANAGER STRATE[employer]IC MARKETING XR LUMBAR SPINE 2 OR 3VW Routine 08/02/2024 2:10 PM MANAGER [employer] MARKETING Acute midline low back pain without sciatica PTH INTACT W/O CALCIUM Routine 08/02/2024 3:19 AM MANAGER STRATEGIC MARKETING MAGNESIUM BLOOD AM Draw 08/02/2024 3:19 AM MANAGER STRATE[employer]IC MARKETING RENAL FUNCTION PANEL AM Draw 08/02/2024 3:19 AM MANAGER STRATE[employer]IC MARKETING CBC W AUTO DIFFERENTIAL AM Draw 08/02/2024 3:19 AM MANAGER STRATEGIC MARKETING CALCIUM BLOOD STAT 08/01/2024 3:41 AM MANAGER STRATEGIC MARKETING MAGNESIUM BLOOD AM Draw 08/01/2024 1:20 AM MANAGER STRATE[employer]IC MARKETING RENAL FUNCTION PANEL AM Draw 08/01/2024 1:20 AM MANAGER STR[employer]IC MARKETING CBC W AUTO DIFFERENTIAL AM Draw 08/01/2024 1:20 AM MANAGER STRATEGIC MARKETING HGB HCT PANEL Timed 07/31/2024 7:39 AM MANAGER STRATEGIC MARKETING TRANSFUSE RED BLOOD CELL LEUKOREDUCED UNIT(S) Routine 07/31/2024 3:40 AM MANAGER STRATEGIC MARKETING PREPARE RBC LEUKOREDUCED UNIT Routine 07/31/2024 3:35 AM MANAGER STRATEGIC MARKETING MAGNESIUM BLOOD AM Draw 07/31/2024 2:15 AM MANAGER STRATEGIC MARKETING RENAL FUNCTION PANEL AM Draw 07/31/2024 2:15 AM MANAGER STRATE[employer]IC MARKETING CBC W AUTO DIFFERENTIAL AM Draw 07/31/2024 2:15 AM MANAGER STRATE[employer]IC MARKETING VITAMIN D 25-HYDROXY AM Draw 07/31/2024 2:15 AM MANAGER STRATE[employer]IC MARKETING VITAMIN B12 AM Draw 07/31/2024 2:15 AM MANAGER STRATEGIC MARKETING FOLATE Routine 07/31/2024 2:15 AM MANAGER STRATEGIC MARKETING IRON + TRANSFERRIN PANEL Routine 07/31/2024 2:15 AM MANAGER STRATEGIC MARKETING HGB HCT PANEL Timed 07/30/2024 10:03 AM MANAGER STRATEGIC MARKETING TRANSFUSE RED BLOOD CELL LEUKOREDUCED UNIT(S) Routine 07/30/2024 5:20 AM MANAGER STRATEGIC MARKETING PREPARE RBC LEUKOREDUCED UNIT Routine 07/30/2024 5:15 AM MANAGER STRATEGIC MARKETING BLOOD TYPE VERIFICATION Routine 07/30/2024 2:06 AM MANAGER STRATEGIC MARKETING CBC W/O DIFFERENTIAL AM Draw 07/30/2024 2:06 AM MANAGER STRATEGIC MARKETING PT-INR AM Draw 07/30/2024 2:06 AM MANAGER STRATEGIC MARKETING BASIC METABOLIC PANEL (CALCIUM TOTAL) AM Draw 07/30/2024 2:06 AM MANAGER STRATEGIC MARKETING HGB HCT PANEL Timed 07/29/2024 9:08 PM MANAGER STRATE[employer]IC MARKETING US ABDOMEN LIMITED Routine 07/29/2024 2: 29 PM MANAGER [employer] MARKETING Gastrointestinal hemorrhage with melena HGB HCT PANEL Routine 07/29/2024 10:19 AM MANAGER STRATEGIC MARKETING PT-INR AM Draw 07/29/2024 10:19 AM MANAGER STRATEGIC MARKETING OH ED EGD FLEX TRANSORAL DX 07/29/2024 8:30 AM MANAGER STRATEGIC MARKETING EGD Routine 07/29/2024 6:57 AM MANAGER STRATEGIC MARKETING CBC W/O DIFFERENTIAL Routine 07/29/2024 6:42 AM MANAGER STRATEGIC MARKETING COMPREHENSIVE METABOLIC PANEL Routine 07/29/2024 6:42 AM MANAGER STRATEGIC MARKETING MAGNESIUM BLOOD Routine 07/29/2024 6:42 AM MANAGER STRATEGIC MARKETING PHOSPHORUS BLOOD Routine 07/29/2024 6:42 AM MANAGER STRATE[employer]IC MARKETING CULTURE BLOOD Timed 07/28/2024 10:03 PM MANAGER STRATEGIC MARKETING CULTURE BLOOD Timed 07/28/2024 8:16 PM MANAGER STR[employer]IC MARKETING TYPE + SCREEN PANEL Routine 07/28/2024 6 :52 PM MANAGER STRATEGIC MARKETING COMPREHENSIVE METABOLIC PANEL STAT 07/28/2024 5:25 PM MANAGER STRATEGIC MARKETING CBC W/O DIFFERENTIAL STAT 07/28/2024 5:25 PM MANAGER STRATEGIC MARKETING from Last 3 Months Results * CARDIAC RHYTHM STRIP ORDER (08/08/2024 11:03 PM MANAGER STRATEGIC MARKETING) Narrative 08/08/2024 11:03 PM MANAGER STR[employer] MARKETING Ordered by an unspecified provider. Scanned Document CARDIAC SERVICES ORD ERABLES * APHERESIS/TRANSFUSION ORDER (08/08/2024 11:03 PM MANAGER STRATEGIC MARKETING) Narrative 08/08/2024 11:03 PM MANAGER STR[employer]IC MARKETING Ordered by an unspecified provider. Scanned Document NURSING - VITAL SIGN S AND ASSESSMENT * B-TYPE NATRIURETIC PEPTIDE (08/07/2024 1:59 AM MANAGER STRATEGIC MARKETING) Pathologist [facility] BNP 35 <=100 pg/mL 08/07/2024 2:52 AM MANAGER STRATEGIC MARKETING [facility] Blood BLOOD SPECIMEN / Unknown Venipuncture / Unknown 08/07/2024 1:59 AM MANAGER STRATEGIC MARKETING 08/07/2024 2:19 AM MANAGER STRATEGIC MARKETING Chika Chew MD LAB - CHEMISTRY AIDEN KEVIN [facility] [address] [place] [address] * (ABNORMAL) COMPREHENSIVE METABOLIC PANEL (08/07/2024 1:59 AM MANAGER STRATEGIC MARKETING) Only the most recent of6 resultswithin the time period is included. Pathologist [facility] Glucose 97 70 - 99 mg/dL 08/07/2024 2:55 AM [facility] Sodium 136 136 - 145 mmol/L 08/07/2024 2:55 AM [facility] Potassium 3.9 3.5 - 5.1 mmol/L 08/07/2024 2:55 AM [facility] Chloride 104 98 - 107 mmol/L 08/07/2024 2:55 AM [facility] CO2 23 22 - 29 mmol/L 08/07/2024 2:55 AM [facility] Calcium 6.8(L) 8.4 - 10.4 mg/dL 08/07/2024 2:55 AM [facility] Anion Gap 9 6 - 16 mmol/L 08/07/2024 2:55 AM [facility] BUN 9 7 - 26 mg/dL 08/07/2024 2:55 AM [facility] Creatinine 0.95 0.57 - 1.11 mg/dL 08/07/2024 2:55 AM [facility] Alkaline Phosphatase 91 40 - 150 U/L 08/07/2024 2:55 AM [facility] ALT 21 0 - 55 U/L 08/07/2024 2:55 AM [facility] AST 28 5 - 34 U/L 08/07/2024 2:55 AM [facility] Protein Total 4.9(L) 6.4 - 8.3 gm/dL 08/07/2024 2:55 AM [facility] Albumin 2.1(L) 3.4 - 5.0 gm/dL 08/07/2024 2:55 AM [facility] Bilirubin Total 0.6 0.2 - 1.2 mg/dL 08/07/2024 2:55 AM [facility] eGFR by CKD-EPI 66(L) >=90 mL/min/1.7 3 m2 08/07/2024 2:55 AM [facility] Blood BLOOD SPECIMEN / Unknown Venipuncture / Unknown 08/07/2024 1:59 AM [facility] 08/07/2024 2:19 AM [facility] Chika Chew MD LAB - CHEMISTRY AIDEN KEVIN [facility] ([place], [place]) Organization Address City/State/ZIP Co de Phone Number [facility] [address] [place] [address] * VAS Bilateral Venous Duplex Le (08/06/2024 2:30 PM MANAGER STRATE[employer]IC MARKETING) Anatomical Region Laterality Modality Lower Extremity Ultrasound 08/06/2024 1:50 PM MANAGER STRATE[employer]IC MARKETING Narrative Procedure Note Jorge Barakat MD - 08/07/[address] [address] Lower Extremity Venous Ultrasound Report Pat.Name: SARAHY RODRIGUEZ Pat.ID: [id number] St.Date: 08/06/2024 Exam Time: 1:50:00 PM Study Type:LE Venous Age: 1 1960,64Y Sex: FEMALE Sonogrphr: Binh Eldridge RVT Pat. Stat.:Inpatient Room: [facility] ICD - 9: R60.0 CPT - 4: 68920 Reason for Study: Bilateral leg edema History / Clinical: CKD, Liver cirrhosis Procedures: Lower Extremity Venous - Bilateral Race: 1 Visit ID: [id number] ++++++++++++++++++++++++++++++++++++ SUMMARY: ++++++++++++++++++++++++++++++++++++ There is no evidence [...] METABOLIC PANEL (CALCIUM TOTAL) (08/06/2024 6:07 AM MANAGER STRATEGIC MARKETING) Only the most recent of2 resultswithin the time period is included. Glucose 87 70 - 99 mg/dL 08/06/2024 8:46 AM [facility] Sodium 137 136 - 145 mmol/L 08/06/2024 8:46 AM [facility] Potassium 3.0(L) 3.5 - 5.1 mmol/L 08/06/2024 8:46 AM [facility] Chloride 103 98 - 107 mmol/L 08/06/2024 8:46 AM [facility] CO2 27 22 - 29 mmol/L 08/06/2024 8:46 AM [facility] Calcium 6.7(L) 8.4 - 10.4 mg/dL 08/06/2024 8:46 AM [facility] Anion Gap 7 6 - 16 mmol/L 08/06/2024 8:46 AM [facility] BUN 7 7 - 26 mg/dL 08/06/2024 8:46 AM [facility] Creatinine 0.81 0.57 - 1.11 mg/dL 08/06/2024 8:46 AM [facility] eGFR by CKD-EPI 81(L) >=90 mL/min/1.7 3 m2 08/06/2024 8:46 AM [facility] Blood BLOOD SPECIMEN / Unknown Venipuncture / Unknown 08/06/2024 6:07 AM MANAGER [employer]ETING 08/06/2024 6:11 AM [facility] Chika Chew MD LAB - CHEMISTRY AIDEN KEVIN [facility] ([place], [place]) Organization Address City/State/ZIP Co de Phone Number [facility] [address] [place] [address] * PHOSPHORUS BLOOD (08/06/2024 6:07 AM MANAGER STR[employer] MARKETING) Only the most recent of3 resultswithin the time period is included. Phosphorus 3.7 2.5 - 4.5 mg/dL 08/06/2024 6:27 AM MANAGER STRATEGIC MARKETING [facility] Blood BLOOD SPECIMEN / Unknown Venipuncture / Unknown 08/06/2024 6:07 AM MANAGER STR[employer]IC MARKETING 08/06/2024 6:11 AM MANAGER STRATEGIC MARKETING Miguel Angel Mccain MD LAB - CHEMISTRY ORDE [facility] Performing Organization Address [facility] Co de Phone Number [facility] [address] [place] [address] * MAGNESIUM BLOOD (08/06/2024 6:07 AM MANAGER STRATE[employer]IC MARKETING) Only the most recent of8 resultswithin the time period is included. Magnesium 1.7 1.6 - 2.6 mg/dL 08/06/2024 8:43 AM MANAGER STRATEGIC MARKETING [facility] Blood BLOOD SPECIMEN / Unknown Venipuncture / Unknown 08/06/2024 6:07 AM MANAGER STR[employer]IC MARKETING 08/06/2024 6:11 AM MANAGER STRATEGIC MARKETING Chika Chew MD LAB - CHEMISTRY ORDKyle KEVIN Performing Organization Address [facility] de Phone Number [facility] [address] [place] [address] * MRI Lumbar Spine Wo Contrast (08/05/2024 9:48 AM MANAGER STRATE[employer] MARKETING) Anatomical Region Laterality Modality Spine Magnetic Resonan ce 08/05/2024 9:51 AM MANAGER STRATE[employer]IC MARKETING Impressions 08/05/2024 11:53 AM MANAGER STRATE[employer]IC MARKETING IMPRESSION: Multilevel degenerative disc and joint disease. Mild foraminal narrowing at L3-L4 and L4-L5 levels. No canal narrowing seen. Minimal superior endplate compression at T12, associated with mild marrow edema, less than 25% loss of vertical height. Edited by Tressa Phillips on 08/05/2024 10:17 AM > Interpreting Provider: Stefani Zepeda MD on 08/05/2024 11:53 AM Narrative 08/05/2024 11:53 AM MANAGER [employer] MARKETING PROCEDURE: MRI LUMBAR SPINE WO CONTRAST DATE/TIME [...] Zepeda MD on 08/05/2024 11:53 AM Miguel nAgel Mccain MD MR ORDERABLES * (ABNORMAL) CBC W AUTO DIFFERENTIAL (08/05/2024 6:53 AM MANAGER STRATE[employer]IC MARKETING) Only the most recent of6 resultswithin the time period is included. WBC 6.8 4.0 - 10.7 x10E9/L 08/05/2024 7:01 AM MANAGER STRATEGIC MARKETING [facility] RBC Count 2.80(L) 3.90 - 5.20 x10E12/L 08/05/2024 7:01 AM MANAGER STRATEGIC MARKETING [facility] Hemoglobin 8.6(L) 11.9 - 15.8 g/dL 08/05/2024 7:01 AM MANAGER STRATEGIC MARKETING [facility] Hematocrit 26.3(L) 34.8 - 46.1 % 08/05/2024 7:01 AM MANAGER STRATEGIC MARKETING [facility] MCV 93.9 80.0 - 98.0 fL 08/05/2024 7:01 AM MANAGER STRATEGIC MARKETING [facility] MCH 30.7 26.7 - 33.6 pg 08/05/2024 7:01 AM MANAGER STRATEGIC MARKETING [facility] MCHC 32.7 31.7 - 36.3 g/dL 08/05/2024 7:01 AM MANAGER STRATEGIC MARKETING [facility] RDW-CV 17.6(H) 11.3 - 14.8 % 08/05/2024 7:01 AM [facility] Platelet Count 111(L) 150 - 420 x10E9/L 08/05/2024 7:01 AM [facility] MPV 10.1 7.8 - 11.4 fL 08/05/2024 7:01 AM [facility] Neutrophil % 70.0 41.0 - 74.0 % 08/05/2024 7:01 AM [facility] Lymphocyte % 13.8(L) 17.0 - 47.0 % 08/05/2024 7:01 AM [facility] Monocyte % 11.7(H) 3.0 - 11.0 % 08/05/2024 7:01 AM [facility] Eosinophil % 3.7 0.0 - 7.0 % 08/05/2024 7:01 AM [facility] Basophil % 0.4 0.0 - 1.6 % 08/05/2024 7:01 AM [facility] Immature Granulocytes % 0.4 0.0 - 1.0 % 08/05/2024 7:01 AM [facility] Neutrophil Absolute 4.76 1.60 - 7.50 x10E9/L 08/05/2024 7:01 AM [facility] Lymphocyte Absolute 0.94(L) 1.00 - 4.40 x10E9/L 08/05/2024 7:01 AM [facility] Monocyte Absolute 0.80 0.15 - 1.00 x10E9/L 08/05/2024 7:01 AM [facility] Eosinophil Absolute 0.25 0.00 - 0.60 x10E9/L 08/05/2024 7:01 AM [facility] Basophil Absolute 0.03 0.00 - 0.13 x10E9/L 08/05/2024 7:01 AM [facility] Blood BLOOD SPECIMEN / Unknown Venipuncture / Unknown 08/05/2024 6:53 AM MANAGER [employer] MARKETING 08/05/2024 6:57 AM MANAGER STRATE[employer]IC MARKETING Miguel Angel Mccain MD LAB - HEMATOLOGY ORD ERABLES [facility] [address] [place] [address] * URIC ACID URINE TIMED (08/04/2024 1:55 PM MANAGER [employer] MARKETING) Uric Acid 24 Hour Urine 205.0 142.3 - 713.2 mg/24 hr 08/06/2024 11:10 AM MANAGER STRATEGIC MARKETING [facility] ([facility]) Uric Acid Urine 20.5 Not Estab. mg/dL 08/06/2024 11:10 AM [facility] ([facility]) Urine TIMED URINE SPECIMEN / Unknown Timed Urine Volume Measurement / Unknown 08/04/2024 1:55 PM MANAGER [employer] MARKETING 08/04/2024 2:02 PM MANAGER STRATEGIC MARKETING Narrative [facility] ([facility]) - 08/06/2024 11:10 AM MANAGER STRATE[employer]IC MARKETING Performed at: 01 - [address] [id number] [employer] Worker: El Sood PhD, Phone: [phone] Pete Olmos MD LAB - URINE CHEMISTR Y ORDERABLES Performing Organization Address City/[facility]/ZIP Co de Phone Number [facility] ([facility]) [address] [place] [address] * PROTEIN URINE TIMED QUANTITATIVE (08/04/2024 1:55 PM MANAGER STR[employer] MARKETING) Volume 24 Hour Urine 1,000 mL 08/04/2024 2:25 PM MANAGER STRATEGIC MARKETING [facility] Collection Time Hours 24 hrs 08/04/2024 2:25 PM MANAGER STRATEGIC MARKETING [facility] Protein 24 Hour Urine 72 <300 mg/24hr 08/04/2024 2:25 PM MANAGER STRATEGIC MARKETING [facility] Protein Urine 7.2 <11.9 mg/dL 08/04/2024 2:25 PM MANAGER STRATEGIC MARKETING [facility] Urine TIMED URINE SPECIMEN / Unknown Timed Urine Volume Measurement / Unknown 08/04/2024 1:55 PM MANAGER STR[employer]IC MARKETING 08/04/2024 2:02 PM MANAGER STRATE[employer]IC MARKETING Pete Olmos MD LAB - URINE CHEMISTR Y ORDERABLES [facility] [address] [place] [address] * CREATININE CLEARANCE URINE TIMED + BLOOD (08/04/2024 1:55 PM MANAGER STR[employer]IC MARKETING) Volume 24 Hour Urine 1,000 mL 08/04/2024 2:28 PM [facility] Collection Time Hours 24 hrs 08/04/2024 2:28 PM [facility] Height Inches 65 inches 08/04/2024 2:28 PM [facility] Weight in Pounds 160 pounds 08/04/2024 2:28 PM [facility] Surface Area 1.80 08/04/2024 2:28 PM [facility] Creatinine 0.81 0.57 - 1.11 mg/dL 08/04/2024 2:28 PM [facility] Creatinine Urine 82.74 mg/dL 08/04/2024 2:28 PM [facility] Creatinine 24 Hour Urine 827 710 - 1,650 mg/24hr 08/04/2024 2:28 PM [facility] Creatinine Clearance 68 66 - 165 mL/min/1.73 m2 08/04/2024 2:28 PM [facility] Urine TIMED URINE SPECIMEN / Unknown Timed Urine Volume Measurement / Unknown 08/04/2024 1:55 PM MANAGER STR[employer]IC MARKETING 08/04/2024 2:02 PM [facility] Pete Olmos MD LAB - URINE CHEMISTR Y ORDERABLES [facility] [address] [place] [address] * (ABNORMAL) CALCIUM URINE TIMED (08/04/2024 1:55 PM [facility]) Calcium Random Urine <2.0 Not Established mg/dL 08/04/2024 7:00 PM [facility] Collection Time Timed Urine 24 Hrs 08/04/2024 7:00 PM [facility] Calcium 24 Hour Urine <20(L) 50 - 300 mg/24 hrs 08/04/2024 7:00 PM [facility] Comment:Unable to calculate excretion rate because the analyte concentration is outside the instrument measuring range. Volume Timed Urine 1,000 mL 08/04/2024 7:00 PM [facility] Urine TIMED URINE SPECIMEN / Unknown Timed Urine Volume Measurement / Unknown 08/04/2024 1:55 PM MANAGER STR[employer]IC MARKETING 08/04/2024 2:02 PM MANAGER STRATE[employer]IC MARKETING Pete Olmos MD LAB - URINE CHEMISTR Y ORDERABLES [facility] [address] [place] [address], [facility] [phone] * (ABNORMAL) URINALYSIS REFLEX TO MICROSCOPIC NO CULTURE (08/03/2024 12:49 PM MANAGER STR[employer] MARKETING) Color UA Yellow Yellow, Straw 08/03/2024 1:30 PM MANAGER [employer]ETING [facility] Clarity UA Clear Clear 08/03/2024 1:30 PM MANAGER [employer]ETING [facility] Glucose UA Normal Normal 08/03/2024 1:30 PM MANAGER [employer]ETING [facility] Bilirubin UA Negative Negative 08/03/2024 1:30 PM MANAGER [employer]ING [facility] Ketone UA Negative Negative 08/03/2024 1:30 PM MANAGER [employer] MARKETING [facility] Specific [place] UA 1.013 1.005 - 1.030 08/03/2024 1:30 PM MANAGER [employer] [facility] Blood UA Negative Negative 08/03/2024 1:30 PM MANAGER [employer]ING [facility] pH UA 7.5 5.0 - 9.0 pH 08/03/2024 1:30 PM MANAGER [employer]ETING [facility] Protein UA Negative Negative 08/03/2024 1:30 PM MANAGER [employer] MARKETING [facility] Urobilinogen UA Normal Normal mg/dL 08/03/2024 1:30 PM MANAGER [employer] MARKETING [facility] Nitrite UA Negative Negative 08/03/2024 1:30 PM MANAGER STRATEGIC MARKETING [facility] Leukocyte UA 75 JAQUI/uL(A) Negative 08/03/2024 1:30 PM MANAGER STR[employer] MARKETING [facility] RBC UA 0-2 0 - 5 # /hpf 08/03/2024 1:30 PM MANAGER STR[employer]IC MARKETING [facility] WBC UA 6-10(A) 0 - 5 # /hpf 08/03/2024 1:30 PM MANAGER [employer] MARKETING [facility] Bacteria UA Trace(A) None Seen 08/03/2024 1:30 PM MANAGER STR[employer] MARKETING [facility] Squamous Epithelial Cells 0-2 0 - 5 /hpf 08/03/2024 1:30 PM MANAGER STR[employer] MARKETING [facility] Budding Yeast Few(A) None seen /hpf 08/03/2024 1:30 PM MANAGER STR[employer] MARKETING [facility] Urine URINE SPECIMEN OBTAINED BY CLEAN CATCH PROCEDURE / Unknown Collection / Unknown 08/03/2024 12:49 PM MANAGER [employer] MARKETING 08/03/2024 12:53 PM MANAGER STR[employer]IC MARKETING Narrative [facility] - 08/03/2024 1:30 PM MANAGER STR[employer] MARKETING Pete Olmos MD LAB - URINALYSIS ORD ERABLES [facility] [address] [place] [address] * XR Lumbar Spine 2 or 3Vw (08/02/2024 2:10 PM MANAGER [employer] MARKETING) Anatomical Region Laterality Modality Spine Computed Radiogr aphy 08/02/2024 2:26 PM MANAGER STRATEGIC MARKETING Narrative 08/02/2024 2:29 PM MANAGER STRATEGIC MARKETING EXAM: XR LUMBAR SPINE 2 OR 3VW [...] PTH INTACT W/O CALCIUM (08/02/2024 3:19 AM MANAGER STRATEGIC MARKETING) PTH Intact 275.2(H) 8.7 - 77.1 pg/mL 08/02/2024 4:05 AM [facility] Blood BLOOD SPECIMEN / Unknown Venipuncture / Unknown 08/02/2024 3:19 AM MANAGER STRATEGIC MARKETING 08/02/2024 3:30 AM [facility] Miguel Angel Mccain MD LAB - CHEMISTRY AIDEN KEVIN [facility] ([place], [place]) Organization Address City/State/ZIP Co de Phone Number [facility] [address] [place] [address] * (ABNORMAL) RENAL FUNCTION PANEL (08/02/2024 3:19 AM MANAGER STRATEGIC MARKETING) Only the most recent of3 resultswithin the time period is included. Glucose 112(H) 70 - 99 mg/dL 08/02/2024 4:06 AM [facility] Sodium 140 136 - 145 mmol/L 08/02/2024 4:06 AM [facility] Potassium 3.1(L) 3.5 - 5.1 mmol/L 08/02/2024 4:06 AM [facility] Chloride 103 98 - 107 mmol/L 08/02/2024 4:06 AM [facility] CO2 28 22 - 29 mmol/L 08/02/2024 4:06 AM [facility] Calcium 5.8(LL) 8.4 - 10.4 mg/dL 08/02/2024 4:06 AM [facility] Anion Gap 9 6 - 16 mmol/L 08/02/2024 4:06 AM [facility] BUN 4(L) 7 - 26 mg/dL 08/02/2024 4:06 AM [facility] Creatinine 0.75 0.57 - 1.11 mg/dL 08/02/2024 4:06 AM [facility] Albumin 2.4(L) 3.4 - 5.0 gm/dL 08/02/2024 4:06 AM [facility] Phosphorus 2.4(L) 2.5 - 4.5 mg/dL 08/02/2024 4:06 AM [facility] eGFR by CKD-EPI 88(L) >=90 mL/min/1.7 3 m2 08/02/2024 4:06 AM [facility] Blood BLOOD SPECIMEN / Unknown Venipuncture / Unknown 08/02/2024 3:19 AM MANAGER STRATEGIC MARKETING 08/02/2024 3:30 AM MANAGER STRATEGIC MARKETING Miguel Angel Mccain MD LAB - CHEMISTRY AIDEN KEVIN Performing Organization Address [facility] de Phone Number [facility] [id number] [place] [address] * (ABNORMAL) CALCIUM BLOOD (08/01/2024 3:41 AM MANAGER STRATEGIC MARKETING) Pathologist [facility] Calcium 5.4(LL) 8.4 - 10.4 mg/dL 08/01/2024 4:21 AM MANAGER STRATEGIC MARKETING [facility] Blood BLOOD SPECIMEN / Unknown Venipuncture / Unknown 08/01/2024 3:41 AM MANAGER STRATEGIC MARKETING 08/01/2024 3:52 AM MANAGER STRATEGIC MARKETING Peewee Esquivel DO LAB - CHEMISTRY AIDEN KEVIN Performing Organization Address [facility] de Phone Number [facility] [address] [place] [address] * (ABNORMAL) HGB HCT PANEL (07/31/2024 7:39 AM MANAGER STRATEGIC MARKETING) Only the most recent of4 resultswithin the time period is included. Pathologist [facility] Hemoglobin 8.3(L) 11.9 - 15.8 g/dL 07/31/2024 7:47 AM MANAGER STRATEGIC MARKETING [facility] Hematocrit 23.7(L) 34.8 - 46.1 % 07/31/2024 7:47 AM MANAGER STRATEGIC MARKETING [facility] Blood BLOOD SPECIMEN / Unknown Venipuncture / Unknown 07/31/2024 7:39 AM MANAGER STRATEGIC MARKETING 07/31/2024 7:43 AM MANAGER STRATEGIC MARKETING Cruz Whitfield MD LAB - HEMATOLOGY OR DERABLES Performing Organization Address [facility] de Phone Number [facility] [address] [place] [address] * TRANSFUSE RED BLOOD CELL LEUKOREDUCED UNIT(S) (07/31/2024 5:59 AM MANAGER STRATEGIC MARKETING) Peewee Esquivel DO NURSING - BLOOD PROD TRANSFUSION * PREPARE (CROSSMATCH) RBC UNIT(S), 1 Units (07/31/2024 3:35 AM MANAGER STRATEGIC MARKETING) Only the most recent of2 resultswithin the time period is included. Pathologist [facility] Unit Description AS1 LR PRBC [facility] Unit ABO B [facility] Rh POS [facility] Product Number R02 [facility] Donor # [id number] DP C BLOOD BANK Unit Status transfused DP BL OOD BANK Product Code [id number] [facility] Blood Type Barcode 7300 [facility] Expiration Date [id number] D [facility] Blood Bank BLOOD SPECIMEN / Unknown 07/28/2024 8:53 PM MANAGER STRATEGIC MARKETING Miguel Angel Mccain MD LAB - BLOOD BANK ORD ERABLES Performing Organization Address [facility] de Phone Number [facility] [address] [place] [address] * (ABNORMAL) VITAMIN D 25-HYDROXY (07/31/2024 2:15 AM MANAGER STRATEGIC MARKETING) Pathologist [facility] Vitamin D, 25 Hydroxy 12.3(L) 30 - 80 ng/mL 07/31/2024 3:23 AM MANAGER STRATEGIC MARKETING [facility] Blood BLOOD SPECIMEN / Unknown Venipuncture / Unknown 07/31/2024 2:15 AM MANAGER STRATEGIC MARKETING 07/31/2024 2:22 AM MANAGER STRATEGIC MARKETING Narrative [facility] - 07/31/2024 3:23 AM MANAGER STRATEGIC MARKETING Vitamin D Status: Deficiency <20 ng/mL Insufficiency 20-30 ng/mL Sufficiency 30-100 ng/mL Toxicity >100 ng/mL Miguel Angel Mccain MD LAB - CHEMISTRY ORDE RABUTE Performing Organization Address [facility] Co de Phone Number [facility] [address] [place] [address] * (ABNORMAL) FOLATE (07/31/2024 2:15 AM MANAGER STRATEGIC MARKETING) Pathologist [facility] Folate 5.2(L) 7.0 - 31.4 ng/mL 07/31/2024 3:23 AM MANAGER STRATEGIC MARKETING [facility] Blood BLOOD SPECIMEN / Unknown Venipuncture / Unknown 07/31/2024 2:15 AM MANAGER STRATEGIC MARKETING 07/31/2024 2:22 AM MANAGER STRATEGIC MARKETING Miguel Angel Mccain MD LAB - CHEMISTRY AIDEN KEVIN Performing Organization Address [facility] de Phone Number [facility] [id number] [place] [address] * (ABNORMAL) VITAMIN B12 (07/31/2024 2:15 AM MANAGER STRATEGIC MARKETING) Pathologist [facility] Vitamin B12 >2,000(H) 213 - 816 pg/mL 07/31/2024 3:27 AM MANAGER STRATEGIC MARKETING [facility] Blood BLOOD SPECIMEN / Unknown Venipuncture / Unknown 07/31/2024 2:15 AM MANAGER STRATEGIC MARKETING 07/31/2024 2:22 AM MANAGER STRATEGIC MARKETING Miguel Angel Mccain MD LAB - CHEMISTRY AIDEN KEVIN Performing Organization Address [facility] de Phone Number [facility] [address] [place] [address] * (ABNORMAL) IRON + TRANSFERRIN PANEL (07/31/2024 2:15 AM MANAGER STRATEGIC MARKETING) Pathologist [facility] Iron 84 40 - 150 ug/dL 07/31/2024 2:55 AM MANAGER STRATEGIC MARKETING [facility] Transferrin 123(L) 174 - 382 mg/dL 07/31/2024 2:55 AM MANAGER STRATEGIC MARKETING [facility] TIBC Calculated 154(L) 240 - 450 ug/dL 07/31/2024 2:55 AM MANAGER STRATEGIC MARKETING [facility] Iron Saturation % 55(H) 20 - 50 % 07/31/2024 2:55 AM MANAGER STRATEGIC MARKETING [facility] Blood BLOOD SPECIMEN / Unknown Venipuncture / Unknown 07/31/2024 2:15 AM MANAGER STRATEGIC MARKETING 07/31/2024 2:22 AM MANAGER STRATEGIC MARKETING Miguel Angel Mccain MD LAB - CHEMISTRY AIDEN KEVIN Performing Organization Address [facility] de Phone Number [facility] [address] [place] [address] * TRANSFUSE RED BLOOD CELL LEUKOREDUCED UNIT(S) (07/30/2024 7:41 AM MANAGER STRATEGIC MARKETING) Peewee Esquivel DO NURSING - BLOOD PROD TRANSFUSION * BLOOD TYPE VERIFICATION (07/30/2024 2:06 AM MANAGER STRATEGIC MARKETING) ABO Rh B POS 07/30/2024 4:2 5 AM MANAGER STRATEGIC MARKETING [facility] Blood Bank BLOOD SPECIMEN / Unknown Venipuncture / Unknown 07/30/2024 2:06 AM MANAGER STRATEGIC MARKETING 07/30/2024 3:11 AM MANAGER STRATEGIC MARKETING Yi Grier MD LAB - BLOOD BANK ORD ERABLES Performing Organization Address City/[facility] Co de Phone Number [facility] [id number] [place] [address] * (ABNORMAL) PT-INR (07/30/2024 2:06 AM MANAGER STRATEGIC MARKETING) Only the most recent of2 resultswithin the time period is included. Pathologist [facility] PT 19.8(H) 12.1 - 14.8 sec 07/30/2024 3:12 AM MANAGER STRATEGIC MARKETING [facility] Comment:This result represen ts a significant difference from this patient's most recent previous value. Clinical correlation is therefore recommended. INR 1.7(H) 0.9 - 1.1 07/30/2024 3:12 AM MANAGER STRATEGIC MARKETING [facility] Blood BLOOD SPECIMEN / Unknown Venipuncture / Unknown 07/30/2024 2:06 AM MANAGER STRATEGIC MARKETING 07/30/2024 2:27 AM MANAGER STRATEGIC MARKETING Narrative [facility] - 07/30/2024 3:12 AM MANAGER STRATEGIC MARKETING Conventional Warfarin Anticoagulant Therapy: INR Reference Range: 2.0-3.0 Intensive Warfarin Anticoagulant Therapy: INR Reference Range: 2.5-3.5 Yi Grier MD LAB - COAGULATION OR DERABLES Performing Organization Address City/[facility]/ZIP Co de Phone Number [facility] [address] [place] [address] * (ABNORMAL) CBC W/O DIFFERENTIAL (07/30/2024 2:06 AM MANAGER STRATEGIC MARKETING) Only the most recent of3 resultswithin the time period is included. WBC 12.5(H) 4.0 - 10.7 x10E9/L 07/30/2024 2:30 AM [facility] RBC Count 2.06(L) 3.90 - 5.20 x10E12/L 07/30/2024 2:30 AM [facility] Hemoglobin 6.4(L) 11.9 - 15.8 g/dL 07/30/2024 2:30 AM [facility] Hematocrit 18.7(L) 34.8 - 46.1 % 07/30/2024 2:30 AM [facility] MCV 90.8 80.0 - 98.0 fL 07/30/2024 2:30 AM [facility] MCH 31.1 26.7 - 33.6 pg 07/30/2024 2:30 AM [facility] MCHC 34.2 31.7 - 36.3 g/dL 07/30/2024 2:30 AM [facility] RDW-CV 18.1(H) 11.3 - 14.8 % 07/30/2024 2:30 AM [facility] Platelet Count 161 150 - 420 x10E9/L 07/30/2024 2:30 AM [facility] MPV 10.0 7.8 - 11.4 fL 07/30/2024 2:30 AM [facility] Blood BLOOD SPECIMEN / Unknown Venipuncture / Unknown 07/30/2024 2:06 AM MANAGER STRATEGIC MARKETING 07/30/2024 2:27 AM MANAGER STRATEGIC MARKETING Yi Grier MD LAB - HEMATOLOGY ORD ERABLES [facility] [address] [place] [address] * US ABDOMEN LIMITED (RUQ) (07/29/2024 2:29 PM MANAGER STRATEGIC MARKETING) Anatomical Region Laterality Modality Abdomen Ultrasound 07/29/2024 3:34 PM MANAGER STRATEGIC MARKETING Impressions 07/30/2024 10:05 AM MANAGER STRATEGIC MARKETING IMPRESSION: 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 Hepatic steatosis with a mass right lobe most consistent with focal fatty sparing. Lack of ability to compare to the outside images result in decreased sensitivity. > Interpreting Provider: Kameron Sprague MD on 07/30/2024 10:05 AM Narrative 07/30/2024 10:05 AM MANAGER STRATEGIC MARKETING PROCEDURE: US ABDOMEN LIMITED, DATE/TIME OF EXAM: 07/29/2024 2:29 PM, LOCATION [facility] INDICATION: K92.1: Melena ADDITIONAL [...] DATE/TIME OF EXAM: 07/29/2024 2:29 PM, LOCATION [facility] INDICATION: K92.1: Melena ADDITIONAL [...] MD ORDERABLES * EGD (07/29/2024 6:57 AM MANAGER STRATEGIC MARKETING) Report Endoscopy POC _ Patient Name: Sarahy Rodriguez Procedure Date: 07/29/2024 6:57 AM Date of : 1960 Admit Type: Inpatient Age: 64 Gender: Female Attending MD: Cathleen Estrada MD, [id number] _ Procedure: Upper GI endoscopy Indications: Melena [...] GI notes Procedure Code(s): --- Professional --- 38104, Esophagogastroduoden oscopy, flexible, transoral; diagnostic, including collection of specimen(s) by brushing or washing, when performed (separate procedure) --- Technical --- 99414, Esophagogastroduoden oscopy, flexible, transoral; diagnostic, including collection [...] K92.1, Melena (includes Hematochezia) CPT copyright 202 [employer]. All rights reserved. The codes documented in this report are preliminary and upon pharmacognosist review may be revised to meet current compliance requirements. Cathleen Estrada MD 07/29/2024 9:00:40 AM Number of Addenda: 0 Note Initiated On: 07/29/2024 6:57 AM [facility] 07/29/2024 6:57 AM MANAGER STRATEGIC MARKETING Narrative Procedure Note Cathleen Estrada MD - [...] GI PROCEDURE ORDERAB LES Performing Organization Address [facility] Co de Phone Number [facility] [place] [address] * CULTURE BLOOD (07/28/2024 10:03 PM MANAGER STRATEGIC MARKETING) Only the most recent of2 resultswithin the time period is included. Culture No growth day 5 LINO 08/03/2024 1:30 AM MANAGER STRATEGIC MARKETING [facility] Blood PERIPHERAL BLOOD / Unknown Venipuncture / Unknown 07/28/2024 10:03 PM MANAGER STRATEGIC MARKETING 07/28/2024 10:07 PM MANAGER STRATEGIC MARKETING Fabio Santos MD LAB - MICROBIOLOGY O RDERABLES Performing Organization Address [facility] Co de Phone Number [facility] [address] [place] [address], [facility] [phone] * TYPE + SCREEN PANEL (07/28/2024 6:52 PM MANAGER STRATEGIC MARKETING) ABO Rh B POS 07/28/2024 9:52 PM MANAGER STRATEGIC MARKETING [facility] Comment:No history; collect retype. Antibody Screen NEG 9:52 PM MANAGER STRATEGIC MARKETING [facility] Blood Bank BLOOD SPECIMEN / Unknown Venipuncture / Unknown 07/28/2024 6:52 PM MANAGER STRATEGIC MARKETING 07/28/2024 8:53 PM MANAGER STRATEGIC MARKETING Fabio Santos MD LAB - BLOOD BANK ORD ERABLES Performing Organization Address [facility] Co de Phone Number [facility] [address] [place] [address], [facility] [phone] from Last 3 Months Advance Directives Documents on File Type Date Recorded Patient Program Management Analyst Expl anation Adv Directive/Living Will/POA 08/08/2024 10:51 PM Adv Directive/Living Will/POA 08/01/2024 8:23 PM Adv Directive/Living Will/POA 07/31/2024 7:48 PM * Full Code (Latest Code Status on File) Date Activated Date Inactivated Comments 07/28/2024 3:11 PM 08/07/2024 5:49 PM Care Teams Fuel Verification Technician Relationship Specialty Start Date End Date Priyank Zepeda MD [address] [place] [address] PCP - General 02/23/22
--- OUTSIDE RECORDS SUMMARY | 2024-08-22 12:02 | XMS_ITS | Encounter Summary ---
Author Organization [facility] Address [address] [place] [address] Phone Care Team Providers Care Etl Manager Name Role Phone Priyank Zepeda MD Primary Care Provider [phone] Reason for Visit * Auth/Cert (Routine) Specialty Diagnoses / Procedures Referred By Contac t Referred To Contact Referral ID Status Reason Start Date Expiration Date Visits Re quested Visits Authorized [id number] 1 8 Encounter Details Date Type Department Care Team (Late st Contact Info) Description 08/13/2024 2:30 PM CDT Home Care Visit [facility] [address] [place] [address] Eloisa Ruiz, PT PT - OASIS START [...] 08/22/2024 1:00 PM CDT Home Care Visit [address] [address] Viola Richard, EVAPORATIVE COOLER INSTALLER [place] 08/23/2024 1:00 AM CDT Home Care Visit [address] [address] Asia Salazar, [place] 08/27/2024 1:00 AM CDT Home Care Visit [address] [address] Asia Salazar, FRANCHISE SALES DIRECTOR [place] 08/27/2024 11:00 AM CDT Home Care Visit [address] [address] Viola Richard, EVAPORATIVE COOLER INSTALL[place] 08/29/2024 11:00 AM CDT Home Care Visit [address] [address] Viola Richard, EVAPORATIVE CO[place] 08/30/2024 1:00 AM CDT Home Care Visit [address] [address] Asia Salazar, FRANCHISE SALES DIRECTOR [place] 09/02/2024 1:00 AM CDT Home Care Visit [address] [address] Eloisa Ruiz, PT 09/04/2024 1:00 AM CDT Home Care Visit [address] [address] Viola Richard, EVAPORATIVE COOLER INSTALLER [place] 09/04/2024 2:00 AM CDT Home Care Visit [address] [address] Asia Salazar, [place] 09/06/2024 1:00 AM CDT Home Care Visit [address] [address] Laws, [place] 09/10/2024 1:00 AM CDT Home Care Visit [facility] [address] [place] [address] Moni Mendoza OT 09/12/2024 1:00 AM CDT Home Care Visit [facility] [address] [place] [address] Asia Salazar O[place] documented as of this encounter Visit Diagnoses [...] understanding. documented in this encounter Care Teams Etl Manager Relationship Specialty Start Date End Date Priyank Zepeda MD [address] [place] [address] PCP - General Internal Medicine 08/08/24 documented as of this encounter
--- OUTSIDE RECORDS SUMMARY | 2024-08-22 12:02 | XMS_ITS | Encounter Summary ---
Author Organization [facility] Address [address] [place] [address] Care Team Providers Care High School Guidance Counselor Name Role Phone Priyank Zepeda MD Primary Care Provider [phone] Encounter Details Date Type Department Care Team (Late st Contact Info) Description 10/03/2023 Hospital Follow-up Call [facility] [address] [place] [address] Chelsea Bishop RN Social History Tobacco Use Types Packs/Day Years Used Date Smoking Tobacco: Never [facility] Utilities Answer Date Recorded In the past 12 months has e electric, gas, oil, or water [employer] threatened to shut off services in your [...] were you homeless or living in a [place] health care facility (including now)? No 09/28/2023 Comments Unknown Sex [...] on filedocumented in this encounter Care Teams High School Guidance Counselor Relationship Specialty Start Date End Date Priyank Zepeda MD [address] [place] [address] PCP - General INTERNAL MEDICINE 09/19/19 documented as of this encounter
--- OUTSIDE RECORDS SUMMARY | 2024-08-22 12:02 | XMS_ITS | Clinical Summary ---
Author Organization [facility] Address [address] [place] [address] Care Team Providers Care Nut Sifter Name Role Phone Priyank Zepeda MD Primary Care Provider [phone] Allergies Active Allergy Reactions Criticality Noted Date [...] Packs/Day Years Used Date Smoking Tobacco: Never [facility] CustomMadeities Answer Date Recorded In the past 12 months has e [employer], [employer], oil, or water [employer] threatened to shut off services in your [...] were you homeless or living in a long term (including now)? No 11/17/2023 Comments Unknown Sex [...] Most Recently Relevant to Health Maintenance Insurance [employer] Advance Directives * Full Code (Latest Code Status on File) Date Activated Date Inactivated Comments 11/17/2023 1:12 AM 11/18/2023 5:01 PM * Full Code Date Activated Date Inactivated Comments 09/28/2023 1:27 AM 10/02/2023 3:59 PM Care Teams Nut Sifter Relationship Specialty Start Date End Date Priyank Zepeda MD [address] [place] [address] PCP - General INTERNAL MEDICINE 09/19/19
== END 2024-08-22 11:02 | disposition home or self-care (01) ==
LOC: CHSLAB 11:02
PROVIDERS: PCP Internal Medicine; Visit Provider Nurse Practitioner Family
DX: I81 Portal vein thrombosis (principal); E87.6 Hypokalemia; E83.51 Hypocalcemia
CPT/HCPCS: 36415; 80053; 85027

== ENCOUNTER 2024-08-24 22:04 | Emergency (ER) | payer OTHER, SELFPAY ==
--- OUTSIDE RECORDS SUMMARY | 2024-08-24 22:06 | XMS_ITS | Encounter Summary ---
Author Organization [facility] Address [address] [place] [address] Phone Care Team Providers Care Transformer Tester Name Role Phone Priyank Zepeda MD Primary Care Provider [phone] Encounter Details Date Type Department Care Team (Late Contact Info) Description 12/06/2019 Orders Only [facility]. [address] [place] [phone] Kristofer Ortiz MD [address] [place] [address] Chronic kidney disease stage 3 [...] Description 10/22/2024 10:45 AM CDT Office Visit [facility]. [address] [place] [phone] Kristofer Ortiz MD [address] [place] [address] [address] documented as of this encounter Visit Diagnoses Diagnosis Chronic kidney disease stage 3 (HCC) documented in this encounter Care Teams Transformer Tester Relationship Specialty Start Date End Date Priyank Zepeda MD [address] [place] [address] PCP - General Internal Medicine 05/17/19 documented as of this encounter
--- OUTSIDE RECORDS SUMMARY | 2024-08-24 22:06 | XMS_ITS | Clinical Summary ---
Author Organization [facility] Address [address] [address] Phone Care Team Providers Care Compensation And Hris Analyst Name Role Phone Priyank Zepeda MD Primary Care Provider [phone] Allergies No known active allergies Medications calcium [...] 2 times per day 08/13/19 Active Pancrelipase, Dyw-Kylv-Plvo, (CREON PO) Take 24,000 Units by mouth [...] daily. 08/21/19 Active pancrelipase, lipase-protease -amylase, (Creon) [address] Particles Take 1 Capsule [...] Encounters Date Type Department Care Team Description 08/23/2024 12:00 PM CDT Home Care Visit [facility] [address] [place] [address] Asia Slaazar OTA OT - HOME VISIT 08/22/2024 1:00 PM CDT [facility] [address] Viola Richard, EQUITY STRUCTURER PT - HOME VISIT 08/20/2024 12:00 PM CDT Home Care Visit [address] [address] Mary Perez RN SN - [facility] INITIAL EVALUATION 08/20/2024 11:15 AM CDT Home Care Visit [address] [address] Moni Mendoza, OT OT - HOME VISIT 08/20/2024 10:00 AM CDT Home Care Visit [address] [address] Viola Richard, EQUITY STRUCTURER PT - HOME VISIT 08/20/2024 Travel 08/18/2024 Home Care Visit [address] [address] Eloisa Ruiz, PT CARE CONFERENCE 08/16/2024 1:30 PM CDT Home Care Visit [address] [address] Eloisa Ruiz, PT PT - HOME VISIT 08/16/2024 12:45 PM CDT Home Care Visit [address] [address] Moni Mendoza, OT OT - INITIAL EVALUATION 08/16/[address] [address] Eloisa Ruiz, PT Medication Management 08/14/2024 Home Care Visit [address] [address] Eloisa Ruiz, PT TELEPHONE ENCOUNTER 08/14/2024 Home Care Visit [address] [address] Eloisa Ruiz, PT TELEPHONE ENCOUNTER 08/13/2024 2:30 PM CDT Home Care Visit [address] [address] Eloisa Ruiz, PT PT - [place] START OF CARE 08/13/[address] [address] Eloisa Ruiz, PT Medication Management 08/13/2024 Plan of Care Documentation [address] [address] from Last 3 Months Social History Tobacco Use Types Packs/Day Years Used Date Smoking Tobacco: Never Assessed Comments Unknown Sex and Gender Information Value Date Recorded Sex Assigned at Not on file Legal Sex Female 11:40 PM CDT Gender Identity Not on file Sexual Orientation Not on file Last Filed Vital Signs Vital Sign Reading Time Taken Comments Blood Pressure 124/82 08/23/2024 12:24 PM CDT Pulse 88 08/23/2024 12:24 PM CDT Temperature 36.2 C (97.2 F) 08/23/2024 12:24 PM CDT Respiratory Rate 18 08/23/2024 12:24 PM CDT Oxygen Saturation 99% 08/23/2024 12:24 PM CDT Inhaled Oxygen Concentration - - Weight - - Height 165.1 cm (5' 5 ) 08/16/2024 1:33 PM CDT Body Mass Index - - Plan of Treatment Upcoming Encounters Date Type Department Care Team (Late st Contact Info) Description 08/27/2024 1:00 AM CDT Home Care Visit [address] [address] Asia Salazar OTA [place] 08/27/2024 11:00 AM CDT Home Care Visit [facility] [address] Viola Richard, EQUITY STRUCTURER [place] 08/28/2024 1:00 AM CDT Home Care Visit [address] [address] Mary Perez RN [place] 08/29/2024 11:00 AM CDT Home Care Visit [address] [address] Viola Richard, EQUITY STRUCTURER [place] 08/30/2024 1:00 AM CDT Home Care Visit [facility] [address] Asia Salazar ENROLLED NURSE [place] 09/02/2024 1:00 AM CDT Home Care Visit [facility] [address] Eloisa Ruiz, PT 09/03/2024 1:00 AM CDT Home Care Visit [address] [address] Mary Perez RN [place] 09/04/2024 1:00 AM CD[facility] [address] [place] [address] Viola Richard, EQUITY STRUCTURER [place] 09/04/2024 2:00 AM CDT Home Care Visit [address] [address] Asia Salazar [place] 09/06/2024 1:00 AM CDT Home Care Visit [address] [address] Asia Salazar [place] 09/10/2024 1:00 AM CDT Home Care Visit [address] [address] Moni Mendoza OT 09/11/2024 1:00 AM CDT Home Care Visit [address] [address] Mary Perez, [place] 09/12/2024 1:00 AM CDT [facility] [address] [place] [address] Asia Salazar, ENROLLED NURSE [place] Health Maintenance Due Date Last Done Comments [...] Documents on File Type Date Recorded Patient Melter Assistant Expl anation Power of After School Program Assistant for Health Care 08/14/2024 12:10 PM POA HC 07/30/2024 * Full Code (Latest Code Status on File) Date Activated Date Inactivated Comments 08/13/2024 10:26 PM Care Teams Compensation And Hris Analyst Relationship Specialty Start Date End Date Priyank Zepeda MD [address] [place] [address] PCP - General Internal Medicine 08/08/24
--- OUTSIDE RECORDS SUMMARY | 2024-08-24 22:06 | XMS_ITS | Encounter Summary ---
Author Organization [facility] Address [address] [place] [address] Phone Care Team Providers Care Algebra Tutor Name Role Phone Priyank Zepeda MD Primary Care Provider [phone] Encounter Details Date Type Department Care Team (Late Contact Info) Description 01/03/2020 Orders Only [facility]. [address] [place] [phone] Kristofer Ortiz MD [address] [place] [address] Chronic kidney disease stage 3 [...] Description 10/22/2024 10:45 AM CDT Office Visit [facility]. [address] [place] [phone] Kristofer Ortiz MD [address] [place] [address] [address] documented as of this encounter Visit Diagnoses Diagnosis Chronic kidney disease stage 3 (HCC) documented in this encounter Care Teams Algebra Tutor Relationship Specialty Start Date End Date Priyank Zepeda MD [address] [place] [address] PCP - General Internal Medicine 05/17/19 documented as of this encounter
--- OUTSIDE RECORDS SUMMARY | 2024-08-24 22:06 | XMS_ITS | Encounter Summary ---
Author Organization [facility] Address [address] [place] [address] Phone Care Team Providers Care White Shoe Ragger Name Role Phone Priyank Valdez MD Primary Care Provider [phone] Reason for Visit * Auth/Cert (Routine) Specialty Diagnoses / Procedures Referred By Contjose t Referred To Contact Referral ID Status Reason Start Date Expiration Date Visits Re quested Visits Authorized [id number] 1 8 Encounter Details Date Type Department Care Team (Late Contact Info) Description 08/23/2024 12:00 PM CD[facility] [address] [place] [address] Asia Salazar, [place] OT - HOME VISIT Social History Tobacco Use Types Packs/Day Years [...] Concentration - - Weight - - Height - - Body Mass Index - - documented in this encounter Plan of Treatment Upcoming Encounters Date Type Department Care Team (Late Contact Info) Description 08/27/2024 1:00 AM CDT [facility] [address] [place] [address] Asia Salazar, COMPUTER ARCHITECT [place] 08/27/2024 11:00 AM CDT [facility] [address] [place] [address] Viola Richard MOTION PICTURE SET GRIP [place] 08/28/2024 1:00 AM CDT [facility] [address] [place] [address] Mary Perez RN [place] 08/29/2024 11:00 AM CD[facility] [address] [place] [address] Viola Richard, MOTION PICTURE SET GRIP [place] 08/30/2024 1:00 AM CD[facility] [address] [place] [address] Asia Salazar, COMPUTER ARCHITECT [place] 09/02/2024 1:00 AM CD[facility] [address] [place] [address] Eloisa Ruiz, PT 09/03/2024 1:00 AM CDT Home Care Visit [address] [address] Mary Perez RN [place] 09/04/2024 1:00 AM CDT [facility] [address] [place] [address] Viola Richard, MOTION PICTURE SET GRIP [place] 09/04/2024 2:00 AM CDT [facility] [address] [place] [address] Asia Salazar, COMPUTER ARCHITECT [place] 09/06/2024 1:00 AM CDT [facility] [address] [place] [address] Asia Salazar, [place] 09/10/2024 1:00 AM CDT [facility] [address] [place] [address] Moni Mendoza OT 09/11/2024 1:00 AM CDT [facility] [address] [place] [address] Mary Perez RN [place] 09/12/2024 1:00 AM CDT [facility] [address] [place] [address] Asia Salazar OTA [place] documented as of this encounter Visit Diagnoses Not on filedocumented in this encounter Home Health Visit - Care Plan Visit Details Visit Type -OT - HOME VISIT Discipline -Occupational Therapy Problems Problem Description Start Date Status Goals Interve ntions ALL HH VITAL SIGN PARAMETERS Disciplines: All Home Care 08/13/2024 Active - 1 problem intervention scheduled/documen lexis in this visit OCCUPATIONAL THERAPY EVALUATION ORDER (O) Disciplines: Occupational Therapy Occupational Therapy General Order 08/16/2024 Active 1 goal linked to scheduled/document ed intervention 1 goal intervention scheduled/documen lexis in this visit OT COMPREHENSIVE Disciplines: Occupational Therapy 08/16/2024 Active 2 goals linked to scheduled/document ed interventions 2 goal interventions scheduled/documen lexis in this visit Goals Goal Associated Problem Outcome Goal Met? Visit Notes Occupational Therapy Evaluation Description: After assessing the patient and discussing the patient's goals the following were identified. Patient Centered Employment Coach Goal: to be independent with shower Target date: 09/14/24 OCCUPATIONAL THERAPY EVALUATION ORDER (O) No OT Homemaking Description: Short Term Goal: Patient will demonstrate ability to complete meal prep at standing level with cane as needed with independence. To be met by 09/14/24. Employment Coach Goal: Patient will demonstrate ability to complete laundry at standing level with cane as needed with independence. To be met by 09/14/24. OT COMPREHENSIVE No OT Bathing Description: Short Term Goal: Patient will demonstrate the ability to complete total body bathing at tub level while sitting with tub bench, hand held shower, grab bars and long handled sponge as needed with independence. To be met by 09/14/24. OT COMPREHENSIVE No Interventions Intervention Associated Problem/Goal Status Variance Visit Notes All HH Vital Sign Parameters (Order Only) Description: Standard parameters to report to physician (unless patient specific parameters are ordered) - Applicable to all disciplines involved in patient's plan of care: Systolic blood pressure less than 90 Systolic blood pressure greater than 160 and/or diastolic blood pressure greater than 100 at rest unless due to uncontrolled pain or missed dose of antihypertensive medication. Blood Pressure greater than 140/90 for 3 consecutive readings occurring in at least two separate visits. Pulse greater than 110 at rest or less than 50 Respirations greater than 24 at rest or less than 10 Temperature greater than 101 degrees Fahrenheit New or increased edema Pulse ox less than 90% at rest on room air or while wearing prescribed oxygen, if ordered. Uncontrolled pain: chronic pain that changes in character or increases, pain that interferes with activity daily, or pain that is reported as unacceptable by the patient after use of prescribed pain control measures. Problem:ALL VITAL SIGN PARAMETERS Completed OT Evaluation (Order Only) Description: 64 y.o. female was admitted to [facility] (from [facility] ER) from 07/28/24-08/07/24 with c/o bloody and black stool. She had an EGD completed which showed non-bleeding ulcers. She was also found to be anemic and to have abnormal labs. She received 3 blood transfusions while inpatient. Pt returned home with orders for [facility] PT/OT. She followed up with her PCP and had labwork done. She was subsequently hospitalized from 08/14/24 to 08/15 at [facility] for hypokalemia and hypocalcemia. Pt lives alone in a ground floor apt. She reports the she has the support of her synagogue family but most of her family lives out of town. She is currently in the process of being evaluated through [facility] for a homemaker. Pt is alert and oriented x 4 and has fair-good understanding of her medications. Pt reports that at baseline, she is sedentary but is able to care for herself including her self care, driving, and errands. She is incontinent of bowels and bladder and states that a lot of this issue came after she had her gastric bypass surgery. Other than falling in the ER, pt denies any other recent falls. She presents with pitting B LE edema from feet to knees with beginning weeping. PMH : CKD, mood disorder, portal hypertension, portal vein thrombosis, Budd Chiari syndrome, gastric bypass, R tibial plateau fracture Occupational Therapy to evaluate and treat for: ADLs, IADLs, DME recommendations, energy conservation Other contributing issues: Pt is anxious to have a homemaker assigned to her. Patient and Priyank Valdez MD are in agreement with plan of care. Perform pulse oximetry PRN for intermittent assessment and/ or respiratory distress. Problem:OCCUPATIONA L THERAPY EVALUATION ORDER (O) Goal:Occupational Therapy Evaluation Completed OT Homemaking Description: Instruct on homemaking techniques and safety. Equipment as needed. Problem:OT COMPREHENSIVE Goal:OT Homemaking Completed Patient performed homemaking for laundry with joint protection with stand by assist. Education provided fall prevention, energy conservation, adaptive equipment use and use of assistive device. Instruction provided to Patient. Response verbalize understanding. Pt retrieved clothing from dryer without use of AD as Pt declined to follow through with recommendations to utilize. Pt education on keeping all laundry supplies at level reach, use of alundry basket on wheels for safe transport, use of exotic dancer to retrieve clothing at bottom of washer and back of dryer, use of laundry pods and/or bottle with spout for easy pouring in order to eliminate need to garbage pick up man heavy bottle and pour detergent. Additional education to follow with Pt displaying fair understanding this date. Pt education on safe transport of lightweight food/drink items using new walker basket and demonstration on safe transport of heavier items using scoot method across counter. Pt admits attempting to carry most items while also manipulating standard walker. Will continue to address safety with meal prep in order to increase safety with task. OT Bathing Description: Instruct on bathing techniques and safety. ADL equipment as needed. Problem:OT COMPREHENSIVE Goal:OT Bathing Patient refused Pt declined due to limited time and scheduled MD appt directly after OT home visit with Kamala Perez to pick her up. documented in this encounter Care Teams White Shoe Ragger Relationship Specialty Start Date End Date Priyank Valdez MD [address] [place] [address] PCP - General Internal Medicine 08/08/24 documented as of this encounter
--- OUTSIDE RECORDS SUMMARY | 2024-08-24 22:06 | XMS_ITS | Encounter Summary ---
Author Organization [facility] Address [address] [place] [address] Phone Care Team Providers Care Machine Group Leader Name Role Phone Priyank Zepeda MD Primary Care Provider [phone] Reason for Visit * Reason Onset Date Comments Medication Management 08/13/2024 Encounter Details Date Type Department Care Team (Late st Contact Info) Description 08/13/2024 [facility] [address] [place] [address] Eloisa Ruiz, PT Medication Management Social History [...] 08/27/2024 1:00 AM CDT Home Care Visit [address] [address] Asia Salazar, TWILL CUTTER [place] 08/27/2024 11:00 AM CDT Home Care Visit [address] [address] Viola Richard, AIR TECHNICIAN [place] 08/28/2024 1:00 AM CDT Home Care Visit [address] [address] Mary Perez, LIZET [place] 08/29/2024 11:00 AM CDT Home Care Visit [address] [address] Viola Richard, AIR TECHNICIAN [place] 08/30/2024 1:00 AM CDT Home Care Visit [address] [address] Asia Salazar, TWILL CUTTER [place] 09/02/2024 1:00 AM CDT Home Care Visit [address] [address] Eloisa Ruiz, PT 09/03/2024 1:00 AM CDT Home Care Visit [address] [address] Mary Perez RN [place] 09/04/2024 1:00 AM CDT Home Care Visit [address] [address] Viola Richard, AIR TECHNICIAN [place] 09/04/2024 2:00 AM CDT Home Care Visit [address] [address] Asia Salazar, TWILL CUTTER [place] 09/06/2024 1:00 AM CDT Home Care Visit [address] [address] Asia Salazar, [place] 09/10/2024 1:00 AM CDT [facility] [address] [place] [address] Moni Mendoza OT 09/11/2024 1:00 AM CDT [facility] [address] [place] [address] Mary Perez RN [place] 09/12/2024 1:00 AM CDT [facility] [address] [place] [address] Asia Salazar OTA [place] documented as of this encounter Visit Diagnoses Not on filedocumented in this encounter Care Teams Machine Group Leader Relationship Specialty Start Date End Date Priyank Zepeda MD [address] [place] [address] PCP - General Internal Medicine 08/08/24 documented as of this encounter
--- OUTSIDE RECORDS SUMMARY | 2024-08-24 22:06 | XMS_ITS ---
Author Organization Unknown Address [address] [place] [id number] Phone Care Team Providers Care Shop Steward Name Role Phone GARFIELD Ashby Attending Unavailable [...] em Smoking History Never smoker (Never Smoked) 229586062 SNOMED CT Sex Female Vital Signs Vital Sign Value Unit Stafford Value Stafford Unit Date/Time Recent/Initial? Code Code System Body Mass Index 30.45 kg/m2 11/13/2023 14:43 Initial 20218 -5 INC Systolic Blood Pressure 136 mm[Hg] 12/14/2023 08:17 Initial 8480- 6 LOINC Diastolic Blood Pressure 78 mm[Hg] 12/14/2023 08:17 Initial 8462- 4 INC Body Surface Area 1.95 m2 11/13/2023 14:43 Initial 3140- 1 LOINC Height 165.100 0 cm 65.00 in 11/13/2023 14:43 Initial 8302- 2 INC O2 Saturation 99 % 2023 08:17 Initial 16182 -5 INC Pulse 57.0 /min 12/14/2023 08:17 Initial 8867- 4 LOINC Respiration 20 /min 12/14/19 08:17 Initial 9279- 1 LOINC Temperature 36.2 Kait 97.1 F 12/14/19 24 08:17 Initial 8310- 5 LOINC Weight 83.01 kg 183.00 lbs 11/13/2023 14:43 Initial 57714 -7 [facility] Medications Medication Start Date End Date Route Frequency Dose Code Code System Medication Instructions Home Meds Vitamin B12 1000 MCG Sublingual Tablet 12/14/2023 Unknown SUBLINGUAL ONCE A DAY [address] 1000 MCG SUBLINGUAL ONCE A DAY Tums Extra Strength 750 MG Oral Tablet, Chewable 12/14/2023 Unknown ORAL NEEDED 750 MG 6005847 RxNorm TAKE 750 MG ORAL NEEDED Amitriptyline 10MG Oral Tablet 12/14/2023 Unknown ORAL TWICE A DAY 10 MILLIGRA MS 892163 RxNorm TAKE 10 MILLIGRAMS ORAL TWICE A DAY Calcitriol 0.5MCG Oral Capsule, Liquid Filled 12/14/2023 Unknown ORAL TWICE A DAY 2 CAPSULE 537108 RxNorm TAKE 2 CAPSULE ORAL TWICE A DAY Calcium Citrate Powder 12/14/2023 [address] ROUTE NOT APPLICABLE 1 unit(s) RxNorm 1 EACH ROUTE NOT APPLICABLE Eliquis 5MG Oral Tablet 12/14/2023 12/14/19 24 ORAL TWICE A DAY 5 MILLIGRA MS 8690781 RxNorm TAKE 5 MILLIGRAMS ORAL TWICE A DAY FLUoxetine 20MG/5ML Oral Solution 12/14/2023 Unknown ORAL TWICE A DAY 754537 RxNorm TAKE mL ORAL TWICE A DAY Iron 325MG Oral Tablet 12/14/2023 Unknown ORAL THREE TIMES A DAY 325 MILLIGRA MS 746051 RxNorm TAKE 325 MILLIGRAMS ORAL THREE TIMES A DAY Levothyroxine 125MCG Oral Tablet 12/14/2023 Unknown ORAL ONCE A DAY 0.5 TABLET 562213 RxNorm TAKE 0.5 TABLET ORAL ONCE A DAY Loratadine 10MG Oral Tablet 12/14/2023 Unknown ORAL NEEDED 10 MILLIGRA MS 300325 RxNorm TAKE 10 MILLIGRAMS ORAL NEEDED Metoprolol Succinate 50MG Oral Tablet, Extended Release 12/14/2023 Unknown ORAL ONCE A DAY 50 MILLIGRA MS 410497 RxNorm TAKE 50 MILLIGRAMS ORAL ONCE A DAY Potassium Chloride 20MEQ Oral Tablet, Extended Release 12/14/2023 Unknown ORAL TWICE A DAY 20 MEQ 9309764 RxNorm TAKE 20 MEQ ORAL TWICE A DAY Sodium Bicarbonate 650MG Oral Tablet 12/14/2023 Unknown ORAL THREE TIMES A DAY 650 MILLIGRA MS 992068 RxNorm TAKE 650 MILLIGRAMS ORAL THREE TIMES A DAY Tab-A-Ezio [id number]-[id number] U-6MCG Oral Tablet 12/14/2023 Unknown ORAL ONCE A DAY 1 unit(s) 508311 RxNorm TAKE 1 EACH ORAL ONCE A [...] Code Syste m Vocal cord nodule completed 82425838 SNOMEDC T Fracture of tibia completed 84680794 SNOMEDC T Volvulus completed 5043410 SNOMEDCT APPENDECTOMY completed 31320040 SNOMEDCT Removal of kidney stone completed 2931848 S NOMEDCT Anesthesia for lower intesti nal endoscopic procedures, endoscope introduce 12/14/2023 completed 34208 CPT Gastric bypass completed 069711780 SNOMEDCT History of parathyroidectomy completed 5298073 01997825 SNOMEDCT Colonoscopy, flexible; with biopsy, single or multiple 12/14/2023 completed 94050 CPT Problems Problem Start Date Resolved Date Status Code Code System CHRONIC KIDNEY DISEASE, STAG E 3A active 395277776 SNOMED-CT Allergies and Adverse Reactions Allergy Substance Reaction Severity Start Date Concern Status Code Code System ADHESIVE Itching (SNOMED-CT: 340887875) Active SUCCINYLCHOLINE CHLORIDE HARD TO WAKE UP (SNOMED-CT: null) Active 3565 RxNorm CIPRO REDNESS IV ONLY (SNOMED-CT: null) Mild Active 690512 RxNorm No Known Drug Allergies Active 217173381 SNOMED-CT Plan of Treatment Colonoscopy 12/14/2023 Encounters Encounter Diagnosis Start Date Code Code Sys tem Noninfective gastroenteritis and colitis, unspecified 12/14/2023 SNOMED-CT Personal Care Team Section Performer Name Performer Role Active Date Inactive KIERAN Gilbert PCP - Primary care physician 2024-04-16
--- OUTSIDE RECORDS SUMMARY | 2024-08-24 22:07 | XMS_ITS | Clinical Summary ---
Author Organization Merg[facility] with [facility] Address [address] [place] [address] Care Team Providers Care Blood Bank Laboratory Technician Name Role Phone Gayla Villar Primary Care Provider [phone] Social History Tobacco Use Types Packs/Day Years Used Date Smoking Tobacco: Never Assessed Comments Unknown Sex and Gender Information Value Date Recorded Sex Assigned at Not on file Legal Sex Female 4:22 PM SYSTEM DEVELOPMENT MANAGER Gender Identity Not on file Sexual Orientation [...] 75+ series) 2034 [place] Care Teams Blood Bank Laboratory Technician Relationship Specialty Start Date End Date Gayla Villar [address] [place] [address] PCP - General 03/11/02
--- OUTSIDE RECORDS SUMMARY | 2024-08-24 22:07 | XMS_ITS | Clinical Summary ---
Author Organization [facility] Address [address] [place] [address] Care Team Providers Care Generator Assembler Name Role Phone Priyank Zepeda MD Primary Care Provider [phone] Source Comments [facility],non-owned Affiliates and Associated Physician Practices is amultiple site organization consisting of ambulatory clinics and hospital sitesin [place], [place], [place] and [place]. This disclosure is being madepursuant to the Care Everywhere program and may not contain all information available regarding this patient. Last updated 18.[facility] Allergies Active Allergy Reactions Criticality Noted Date [...] 5 Active Cholecalciferol (vitamin D3) 1.25 MG (60596 UT) capsule Take 1 (one) capsule by mouth every 7 days 5 capsule 5 Active furosemide (Lasix) 40 MG tablet Take 1 (one) tablet by mouth once daily 30 tablet 5 Active Calcium Carbonate Antacid (calcium carbonate, 500 mg elemental Ca/5 mL,) 1250 MG/5ML suspension Take 10 mL by mouth 3 times daily with meals 473 mL 1 5 Active pancrelipase (Creon 24,000) 45708-08310 units capsule Take 1 (one) capsule by [...] 5 08/08/19 25 Discontinued pancrelipase (Creon 24,000) 55488-43351 units capsule Take 1 (one) capsule by [...] Department Care Team Description 07/29/2024 8:42 AM PRINTING PRESS MACHINIST Anesthesia Event [facility] [address] [place] [address] Bozena Osullivan DO Boyce, Lisa C, PAMELA-JOCY 07/29/2024 8:30 AM PRINTING PRESS MACHINIST - 07/29/2024 9:00 AM PRINTING PRESS MACHINIST Surgery [facility] [address] [place] [address] Cathleen Estrada MD ESOPHAGOGASTRODUODENOSCOPY (EGD) DIAGNOSTIC 07/28/2024 2:19 PM PRINTING PRESS MACHINIST - 08/07/2024 4:44 PM PRINTING PRESS MACHINIST Hospital Encounter [facility] [id number] [place] [address] Yi Grier MD Fatima, Noor E, MD [...] medical care, and heating? Somewhat hard 07/28/2024 [facility] - Occupational Stress [...] any time in the past 12 m [facility], were you homeless or living in a mcc (including now)? No 07/28/2024 Sex and Gender Information Value Date Recorded Sex Assigned at Not on file Gender Identity Not on file Sexual Orientation Not on file Last Filed Vital Signs Vital Sign Reading Time Taken Comments Blood Pressure 112/78 08/07/2024 2:44 PM PRINTING PRESS MACHINIST Pulse 93 08/07/2024 2:44 PM PRINTING PRESS MACHINIST Temperature 37.5 C (99.5 F) 08/07/2024 11:33 AM PRINTING PRESS MACHINIST Respiratory Rate 18 08/07/2024 11:3 3 AM PRINTING PRESS MACHINIST Oxygen Saturation 97% 08/07/2024 2:44 PM PRINTING PRESS MACHINIST Inhaled Oxygen Concentration - - Weight 87.5 kg (192 lb 14.4 oz) 025 12:04 AM PRINTING PRESS MACHINIST Height 165.1 cm (5' 5 ) 07/28/2024 4:01 PM PRINTING PRESS MACHINIST Body Mass Index 32.1 07/28/2024 4:01 PM PRINTING PRESS MACHINIST Plan of Treatment Health Maintenance Due Date [...] CARDIAC RHYTHM STRIP ORDER 08/08/2024 11:03 PM PRINTING PRESS MACHINIST APHERESIS/TRANSFUSIO N ORDER 08/08/2024 11:03 PM PRINTING PRESS MACHINIST B-TYPE NATRIURETIC PEPTIDE AM Draw 08/07/2024 1:59 AM PRINTING PRESS MACHINIST COMPREHENSIVE METABOLIC PANEL AM Draw 08/07/2024 1:59 AM PRINTING PRESS MACHINIST VAS BILATERAL VENOUS DUPLEX LE PENDING DISCHARGE 08/06/2024 2:30 PM PRINTING PRESS MACHINIST Bilateral leg edema MAGNESIUM BLOOD Routine 08/06/2024 6:07 AM PRINTING PRESS MACHINIST BASIC METABOLIC PANEL (CALCIUM TOTAL) Routine 08/06/2024 6:07 AM PRINTING PRESS MACHINIST PHOSPHORUS BLOOD Routine 08/06/2024 6:07 AM PRINTING PRESS MACHINIST MRI LUMBAR SPINE WO CONTRAST Routine 08/05/2024 9:48 AM PRINTING PRESS MACHINIST Acute midline low back pain without sciatica PHOSPHORUS BLOOD Routine 08/05/2024 6:53 AM PRINTING PRESS MACHINIST COMPREHENSIVE METABOLIC PANEL AM Draw 08/05/2024 6:53 AM PRINTING PRESS MACHINIST MAGNESIUM BLOOD AM Draw 08/05/2024 6:53 AM PRINTING PRESS MACHINIST CBC W AUTO DIFFERENTIAL AM Draw 08/05/2024 6:53 AM PRINTING PRESS MACHINIST PROTEIN URINE TIMED QUANTITATIVE Routine 08/04/2024 1:55 PM PRINTING PRESS MACHINIST URIC ACID URINE TIMED Routine 08/04/2024 1:55 PM PRINTING PRESS MACHINIST CREATININE CLEARANCE URINE TIMED + BLOOD Routine 08/04/2024 1:55 PM PRINTING PRESS MACHINIST CALCIUM URINE TIMED Routine 08/04/2024 1 :55 PM PRINTING PRESS MACHINIST COMPREHENSIVE METABOLIC PANEL AM Draw 08/04/2024 6:55 AM PRINTING PRESS MACHINIST MAGNESIUM BLOOD AM Draw 08/04/2024 6:55 AM PRINTING PRESS MACHINIST CBC W AUTO DIFFERENTIAL AM Draw 08/04/2024 6:55 AM PRINTING PRESS MACHINIST URINALYSIS REFLEX TO MICROSCOPIC NO CULTURE Routine 08/03/2024 12:49 PM PRINTING PRESS MACHINIST COMPREHENSIVE METABOLIC PANEL AM Draw 08/03/2024 9:26 AM PRINTING PRESS MACHINIST MAGNESIUM BLOOD AM Draw 08/03/2024 9:26 AM PRINTING PRESS MACHINIST CBC W AUTO DIFFERENTIAL AM Draw 08/03/2024 9:26 AM PRINTING PRESS MACHINIST XR LUMBAR SPINE 2 OR 3VW Routine 08/02/2024 2:10 PM PRINTING PRESS MACHINIST Acute midline low back pain without sciatica PTH INTACT W/O CALCIUM Routine 08/02/2024 3:19 AM PRINTING PRESS MACHINIST MAGNESIUM BLOOD AM Draw 08/02/2024 3:19 AM PRINTING PRESS MACHINIST RENAL FUNCTION PANEL AM Draw 08/02/2024 3:19 AM PRINTING PRESS MACHINIST CBC W AUTO DIFFERENTIAL AM Draw 08/02/2024 3:19 AM PRINTING PRESS MACHINIST CALCIUM BLOOD STAT 08/01/2024 3:41 AM PRINTING PRESS MACHINIST MAGNESIUM BLOOD AM Draw 08/01/2024 1:20 AM PRINTING PRESS MACHINIST RENAL FUNCTION PANEL AM Draw 08/01/2024 1:20 AM PRINTING PRESS MACHINIST CBC W AUTO DIFFERENTIAL AM Draw 08/01/2024 1:20 AM PRINTING PRESS MACHINIST HGB HCT PANEL Timed 07/31/2024 7:39 AM PRINTING PRESS MACHINIST TRANSFUSE RED BLOOD CELL LEUKOREDUCED UNIT(S) Routine 07/31/2024 3:40 AM PRINTING PRESS MACHINIST PREPARE RBC LEUKOREDUCED UNIT Routine 07/31/2024 3:35 AM PRINTING PRESS MACHINIST MAGNESIUM BLOOD AM Draw 07/31/2024 2:15 AM PRINTING PRESS MACHINIST RENAL FUNCTION PANEL AM Draw 07/31/2024 2:15 AM PRINTING PRESS MACHINIST CBC W AUTO DIFFERENTIAL AM Draw 07/31/2024 2:15 AM PRINTING PRESS MACHINIST VITAMIN D 25-HYDROXY AM Draw 07/31/2024 2:15 AM PRINTING PRESS MACHINIST VITAMIN B12 AM Draw 07/31/2024 2:15 AM PRINTING PRESS MACHINIST FOLATE Routine 07/31/2024 2:15 AM PRINTING PRESS MACHINIST IRON + TRANSFERRIN PANEL Routine 07/31/2024 2:15 AM PRINTING PRESS MACHINIST HGB HCT PANEL Timed 07/30/2024 10:03 AM PRINTING PRESS MACHINIST TRANSFUSE RED BLOOD CELL LEUKOREDUCED UNIT(S) Routine 07/30/2024 5:20 AM PRINTING PRESS MACHINIST PREPARE RBC LEUKOREDUCED UNIT Routine 07/30/2024 5:15 AM PRINTING PRESS MACHINIST BLOOD TYPE VERIFICATION Routine 07/30/2024 2:06 AM PRINTING PRESS MACHINIST CBC W/O DIFFERENTIAL AM Draw 07/30/2024 2:06 AM PRINTING PRESS MACHINIST PT-INR AM Draw 07/30/2024 2:06 AM PRINTING PRESS MACHINIST BASIC METABOLIC PANEL (CALCIUM TOTAL) AM Draw 07/30/2024 2:06 AM PRINTING PRESS MACHINIST HGB HCT PANEL Timed 07/29/2024 9:08 PM PRINTING PRESS MACHINIST US ABDOMEN LIMITED Routine 07/29/2024 2: 29 PM PRINTING PRESS MACHINIST Gastrointestinal hemorrhage with melena HGB HCT PANEL Routine 07/29/2024 10:19 AM PRINTING PRESS MACHINIST PT-INR AM Draw 07/29/2024 10:19 AM PRINTING PRESS MACHINIST IN ED EGD FLEX TRANSORAL DX 07/29/2024 8:30 AM PRINTING PRESS MACHINIST EGD Routine 07/29/2024 6:57 AM PRINTING PRESS MACHINIST CBC W/O DIFFERENTIAL Routine 07/29/2024 6:42 AM PRINTING PRESS MACHINIST COMPREHENSIVE METABOLIC PANEL Routine 07/29/2024 6:42 AM PRINTING PRESS MACHINIST MAGNESIUM BLOOD Routine 07/29/2024 6:42 AM PRINTING PRESS MACHINIST PHOSPHORUS BLOOD Routine 07/29/2024 6:42 AM PRINTING PRESS MACHINIST CULTURE BLOOD Timed 07/28/2024 10:03 PM PRINTING PRESS MACHINIST CULTURE BLOOD Timed 07/28/2024 8:16 PM PRINTING PRESS MACHINIST TYPE + SCREEN PANEL Routine 07/28/2024 6 :52 PM PRINTING PRESS MACHINIST COMPREHENSIVE METABOLIC PANEL STAT 07/28/2024 5:25 PM PRINTING PRESS MACHINIST CBC W/O DIFFERENTIAL STAT 07/28/2024 5:25 PM PRINTING PRESS MACHINIST from Last 3 Months Results * CARDIAC RHYTHM STRIP ORDER (08/08/2024 11:03 PM PRINTING PRESS MACHINIST) Narrative 08/08/2024 11:03 PM PRINTING PRESS MACHINIST Ordered by an unspecified provider. Scanned Document CARDIAC SERVICES ORD ERABLES * APHERESIS/TRANSFUSION ORDER (08/08/2024 11:03 PM PRINTING PRESS MACHINIST) Narrative 08/08/2024 11:03 PM PRINTING PRESS MACHINIST Ordered by an unspecified provider. Scanned Document NURSING - VITAL SIGN S AND ASSESSMENT * B-TYPE NATRIURETIC PEPTIDE (08/07/2024 1:59 AM PRINTING PRESS MACHINIST) Pathologist [facility] BNP 35 <=100 pg/mL 08/07/2024 2:52 AM PRINTING PRESS MACHINIST [facility] Blood BLOOD SPECIMEN / Unknown Venipuncture / Unknown 08/07/2024 1:59 AM PRINTING PRESS MACHINIST 08/07/2024 2:19 AM PRINTING PRESS MACHINIST Chika Chew MD LAB - CHEMISTRY AIDEN KEVIN [facility] [address] [place] [address] * (ABNORMAL) COMPREHENSIVE METABOLIC PANEL (08/07/2024 1:59 AM PRINTING PRESS MACHINIST) Only the most recent of6 resultswithin the time period is included. Pathologist [facility] Glucose 97 70 - 99 mg/dL 08/07/2024 2:55 AM [facility] Sodium 136 136 - 145 mmol/L 08/07/2024 2:55 AM [facility] Potassium 3.9 3.5 - 5.1 mmol/L 08/07/2024 2:55 AM [facility] Chloride 104 98 - 107 mmol/L 08/07/2024 2:55 AM [facility] CO2 23 22 - 29 mmol/L 08/07/2024 2:55 AM [facility] Calcium 6.8(L) 8.4 - 10.4 mg/dL 08/07/2024 2:55 AM [facility] Anion Gap 9 6 - 16 mmol/L 08/07/2024 2:55 AM [facility] BUN 9 7 - 26 mg/dL 08/07/2024 2:55 AM [facility] Creatinine 0.95 0.57 - 1.11 mg/dL 08/07/2024 2:55 AM [facility] Alkaline Phosphatase 91 40 - 150 U/L 08/07/2024 2:55 AM [facility] ALT 21 0 - 55 U/L 08/07/2024 2:55 AM [facility] AST 28 5 - 34 U/L 08/07/2024 2:55 AM [facility] Protein Total 4.9(L) 6.4 - 8.3 gm/dL 08/07/2024 2:55 AM [facility] Albumin 2.1(L) 3.4 - 5.0 gm/dL 08/07/2024 2:55 AM [facility] Bilirubin Total 0.6 0.2 - 1.2 mg/dL 08/07/2024 2:55 AM [facility] eGFR by CKD-EPI 66(L) >=90 mL/min/1.7 3 m2 08/07/2024 2:55 AM [facility] Blood BLOOD SPECIMEN / Unknown Venipuncture / Unknown 08/07/2024 1:59 AM [facility] 08/07/2024 2:19 AM [facility] Chika Chew MD LAB - CHEMISTRY AIDEN KEVIN [facility] Organization Address City/State/ZIP Co de Phone Number [facility] [address] [place] [address] * VAS Bilateral Venous Duplex Le (08/06/2024 2:30 PM PRINTING PRESS MACHINIST) Anatomical Region Laterality Modality Lower Extremity Ultrasound 08/06/2024 1:50 PM PRINTING PRESS MACHINIST Narrative Procedure Note Jorge Barakat MD - 08/07/[address] [address] Lower Extremity Venous Ultrasound Report Pat.Name: SARAHY RODRIGUEZ Pat.ID: [id number] St.Date: 08/06/2024 Exam Time: 1:50:00 PM Study Type:LE Venous Age: 1 1960,64Y Sex: FEMALE Sonogrphr: Binh Eldridge RVT Pat. Stat.:Inpatient Room: [facility] ICD - 9: R60.0 CPT - 4: 47160 Reason for Study: Bilateral leg edema History / Clinical: CKD, Liver cirrhosis Procedures: Lower Extremity Venous - Bilateral Race: 1 Visit ID: [id number] ++++++++++++++++++++++++++++++++++++ SUMMARY: ++++++++++++++++++++++++++++++++++++ There is no evidence [...] METABOLIC PANEL (CALCIUM TOTAL) (08/06/2024 6:07 AM PRINTING PRESS MACHINIST) Only the most recent of2 resultswithin the time period is included. Glucose 87 70 - 99 mg/dL 08/06/2024 8:46 AM [facility] Sodium 137 136 - 145 mmol/L 08/06/2024 8:46 AM [facility] Potassium 3.0(L) 3.5 - 5.1 mmol/L 08/06/2024 8:46 AM [facility] Chloride 103 98 - 107 mmol/L 08/06/2024 8:46 AM [facility] CO2 27 22 - 29 mmol/L 08/06/2024 8:46 AM [facility] Calcium 6.7(L) 8.4 - 10.4 mg/dL 08/06/2024 8:46 AM [facility] Anion Gap 7 6 - 16 mmol/L 08/06/2024 8:46 AM [facility] BUN 7 7 - 26 mg/dL 08/06/2024 8:46 AM [facility] Creatinine 0.81 0.57 - 1.11 mg/dL 08/06/2024 8:46 AM [facility] eGFR by CKD-EPI 81(L) >=90 mL/min/1.7 3 m2 08/06/2024 8:46 AM [facility] Blood BLOOD SPECIMEN / Unknown Venipuncture / Unknown 08/06/2024 6:07 AM PRINTING PRESS MACHINIST 08/06/2024 6:11 AM [facility] Chika Chew MD LAB - CHEMISTRY AIDNE KEVIN [facility] Organization Address City/State/ZIP Co de Phone Number [facility] [address] [place] [address] * PHOSPHORUS BLOOD (08/06/2024 6:07 AM PRINTING PRESS MACHINIST) Only the most recent of3 resultswithin the time period is included. Phosphorus 3.7 2.5 - 4.5 mg/dL 08/06/2024 6:27 AM PRINTING PRESS MACHINIST [facility] Blood BLOOD SPECIMEN / Unknown Venipuncture / Unknown 08/06/2024 6:07 AM PRINTING PRESS MACHINIST 08/06/2024 6:11 AM PRINTING PRESS MACHINIST Miguel Angel Mccain MD LAB - CHEMISTRY ORDE [facility] Performing Organization Address [facility] Co de Phone Number [facility] [address] [place] [address] * MAGNESIUM BLOOD (08/06/2024 6:07 AM PRINTING PRESS MACHINIST) Only the most recent of8 resultswithin the time period is included. Magnesium 1.7 1.6 - 2.6 mg/dL 08/06/2024 8:43 AM PRINTING PRESS MACHINIST [facility] Blood BLOOD SPECIMEN / Unknown Venipuncture / Unknown 08/06/2024 6:07 AM PRINTING PRESS MACHINIST 08/06/2024 6:11 AM PRINTING PRESS MACHINIST Chika Chew MD LAB - CHEMISTRY ORDKyle KEVIN Performing Organization Address [facility] de Phone Number [facility] [address] [place] [address] * MRI Lumbar Spine Wo Contrast (08/05/2024 9:48 AM PRINTING PRESS MACHINIST) Anatomical Region Laterality Modality Spine Magnetic Resonan ce 08/05/2024 9:51 AM PRINTING PRESS MACHINIST Impressions 08/05/2024 11:53 AM PRINTING PRESS MACHINIST IMPRESSION: Multilevel degenerative disc and joint disease. Mild foraminal narrowing at L3-L4 and L4-L5 levels. No canal narrowing seen. Minimal superior endplate compression at T12, associated with mild marrow edema, less than 25% loss of vertical height. Edited by Tressa Phillips on 08/05/2024 10:17 AM > Interpreting Provider: Stefani Zepeda MD on 08/05/2024 11:53 AM Narrative 08/05/2024 11:53 AM PRINTING PRESS MACHINIST PROCEDURE: MRI LUMBAR SPINE WO CONTRAST DATE/TIME [...] CBC W AUTO DIFFERENTIAL (08/05/2024 6:53 AM PRINTING PRESS MACHINIST) Only the most recent of6 resultswithin the time period is included. WBC 6.8 4.0 - 10.7 x10E9/L 08/05/2024 7:01 AM PRINTING PRESS MACHINIST [facility] RBC Count 2.80(L) 3.90 - 5.20 x10E12/L 08/05/2024 7:01 AM PRINTING PRESS MACHINIST [facility] Hemoglobin 8.6(L) 11.9 - 15.8 g/dL 08/05/2024 7:01 AM PRINTING PRESS MACHINIST [facility] Hematocrit 26.3(L) 34.8 - 46.1 % 08/05/2024 7:01 AM PRINTING PRESS MACHINIST [facility] MCV 93.9 80.0 - 98.0 fL 08/05/2024 7:01 AM PRINTING PRESS MACHINIST [facility] MCH 30.7 26.7 - 33.6 pg 08/05/2024 7:01 AM PRINTING PRESS MACHINIST [facility] MCHC 32.7 31.7 - 36.3 g/dL 08/05/2024 7:01 AM PRINTING PRESS MACHINIST [facility] RDW-CV 17.6(H) 11.3 - 14.8 % 08/05/2024 7:01 AM [facility] Platelet Count 111(L) 150 - 420 x10E9/L 08/05/2024 7:01 AM [facility] MPV 10.1 7.8 - 11.4 fL 08/05/2024 7:01 AM [facility] Neutrophil % 70.0 41.0 - 74.0 % 08/05/2024 7:01 AM [facility] Lymphocyte % 13.8(L) 17.0 - 47.0 % 08/05/2024 7:01 AM [facility] Monocyte % 11.7(H) 3.0 - 11.0 % 08/05/2024 7:01 AM [facility] Eosinophil % 3.7 0.0 - 7.0 % 08/05/2024 7:01 AM [facility] Basophil % 0.4 0.0 - 1.6 % 08/05/2024 7:01 AM [facility] Immature Granulocytes % 0.4 0.0 - 1.0 % 08/05/2024 7:01 AM [facility] Neutrophil Absolute 4.76 1.60 - 7.50 x10E9/L 08/05/2024 7:01 AM [facility] Lymphocyte Absolute 0.94(L) 1.00 - 4.40 x10E9/L 08/05/2024 7:01 AM [facility] Monocyte Absolute 0.80 0.15 - 1.00 x10E9/L 08/05/2024 7:01 AM [facility] Eosinophil Absolute 0.25 0.00 - 0.60 x10E9/L 08/05/2024 7:01 AM [facility] Basophil Absolute 0.03 0.00 - 0.13 x10E9/L 08/05/2024 7:01 AM [facility] Blood BLOOD SPECIMEN / Unknown Venipuncture / Unknown 08/05/2024 6:53 AM PRINTING PRESS MACHINIST 08/05/2024 6:57 AM PRINTING PRESS MACHINIST Miguel Angel Mccain MD LAB - HEMATOLOGY ORD ERABLES [facility] [address] [place] [address] * URIC ACID URINE TIMED (08/04/2024 1:55 PM PRINTING PRESS MACHINIST) Uric Acid 24 Hour Urine 205.0 142.3 - 713.2 mg/24 hr 08/06/2024 11:10 AM PRINTING PRESS MACHINIST [facility] ([facility]) Uric Acid Urine 20.5 Not Estab. mg/dL 08/06/2024 11:10 AM [facility] ([facility]) Urine TIMED URINE SPECIMEN / Unknown Timed Urine Volume Measurement / Unknown 08/04/2024 1:55 PM PRINTING PRESS MACHINIST 08/04/2024 2:02 PM PRINTING PRESS MACHINIST Narrative [facility] ([facility]) - 08/06/2024 11:10 AM PRINTING PRESS MACHINIST Performed at: [address] - [address] [id number] [place] Fisher: El Sood PhD, Phone: [phone] Pete Olmos MD LAB - URINE CHEMISTR Y ORDERABLES Performing Organization Address City/[facility]/ZIP Co de Phone Number [facility] ([facility]) [address] [place] [address] * PROTEIN URINE TIMED QUANTITATIVE (08/04/2024 1:55 PM PRINTING PRESS MACHINIST) Volume 24 Hour Urine 1,000 mL 08/04/2024 2:25 PM PRINTING PRESS MACHINIST [facility] Collection Time Hours 24 hrs 08/04/2024 2:25 PM PRINTING PRESS MACHINIST [facility] Protein 24 Hour Urine 72 <300 mg/24hr 08/04/2024 2:25 PM PRINTING PRESS MACHINIST [facility] Protein Urine 7.2 <11.9 mg/dL 08/04/2024 2:25 PM PRINTING PRESS MACHINIST [facility] Urine TIMED URINE SPECIMEN / Unknown Timed Urine Volume Measurement / Unknown 08/04/2024 1:55 PM PRINTING PRESS MACHINIST 08/04/2024 2:02 PM PRINTING PRESS MACHINIST Pete Olmos MD LAB - URINE CHEMISTR Y ORDERABLES [facility] [address] [place] [address] * CREATININE CLEARANCE URINE TIMED + BLOOD (08/04/2024 1:55 PM PRINTING PRESS MACHINIST) Volume 24 Hour Urine 1,000 mL 08/04/2024 2:28 PM [facility] Collection Time Hours 24 hrs 08/04/2024 2:28 PM [facility] Height Inches 65 inches 08/04/2024 2:28 PM [facility] Weight in Pounds 160 pounds 08/04/2024 2:28 PM [facility] Surface Area 1.80 08/04/2024 2:28 PM [facility] Creatinine 0.81 0.57 - 1.11 mg/dL 08/04/2024 2:28 PM [facility] Creatinine Urine 82.74 mg/dL 08/04/2024 2:28 PM [facility] Creatinine 24 Hour Urine 827 710 - 1,650 mg/24hr 08/04/2024 2:28 PM [facility] Creatinine Clearance 68 66 - 165 mL/min/1.73 m2 08/04/2024 2:28 PM [facility] Urine TIMED URINE SPECIMEN / Unknown Timed Urine Volume Measurement / Unknown 08/04/2024 1:55 PM PRINTING PRESS MACHINIST 08/04/2024 2:02 PM [facility] Pete Olmos MD LAB - URINE CHEMISTR Y ORDERABLES [facility] [address] [place] [address] * (ABNORMAL) CALCIUM URINE TIMED (08/04/2024 1:55 PM [facility]) Calcium Random Urine <2.0 Not Established mg/dL 08/04/2024 7:00 PM [facility] Collection Time Timed Urine 24 Hrs [...] Volume Measurement / Unknown 08/04/2024 1:55 PM [employer] MACHINIST 08/04/2024 2:02 PM [employer] MACHINIST Pete Olmos MD LAB - URINE CHEMISTR Y ORDERABLES [facility] [address] [place] [address], [facility] [phone] * (ABNORMAL) URINALYSIS REFLEX TO MICROSCOPIC NO CULTURE (08/03/2024 12:49 PM [employer] MACHINIST) Color UA Yellow Yellow, Straw 08/03/2024 1:30 PM [employer] MACHIN[facility] Clarity UA Clear Clear 08/03/2024 1:30 PM [employer] MACHIN[facility] Glucose UA Normal Normal 08/03/2024 1:30 PM [employer] MACHIN[facility] Bilirubin UA Negative Negative 08/03/2024 1:30 PM [employer] MACHIN[facility] Ketone UA Negative Negative 08/03/2024 1:30 PM [employer] PR[employer] MACHIN[facility] Specific [place] UA 1.013 1.005 - 1.030 08/03/2024 1:30 PM [employer] MACHIN[facility] Blood UA Negative Negative 08/03/2024 1:30 PM [employer] MACHIN[facility] pH UA 7.5 5.0 - 9.0 pH 08/03/2024 1:30 PM [employer] MACHIN[facility] Protein UA Negative Negative 08/03/2024 1:30 PM PR[employer] PR[employer] MACHIN[facility] Urobilinogen UA Normal Normal mg/dL 08/03/2024 1:30 PM [employer] PR[employer] MACHIN[employer] [facility] Nitrite UA Negative Negative 08/03/2024 1:30 PM PRINTING PRESS MACHINIST [facility] Leukocyte UA 75 JAQUI/uL(A) Negative 08/03/2024 1:30 PM PR[employer]ING PR[employer] MACHINIST [facility] RBC UA 0-2 0 - 5 # /hpf 08/03/2024 1:30 PM PR[employer]ING PR[employer] MACHINIST [facility] WBC UA 6-10(A) 0 - 5 # /hpf 08/03/2024 1:30 PM [employer] MACHIN[employer] [facility] Bacteria UA Trace(A) None Seen 08/03/2024 1:30 PM PRINTING PR[employer] MACHINIST [facility] Squamous Epithelial Cells 0-2 0 - 5 /hpf 08/03/2024 1:30 PM PR[employer]ING PR[employer] MACHINIST [facility] Budding Yeast Few(A) None seen /hpf 08/03/2024 1:30 PM PRINTING PR[employer] MACHINIST [facility] Urine URINE SPECIMEN OBTAINED BY CLEAN CATCH PROCEDURE / Unknown Collection / Unknown 08/03/2024 12:49 PM [employer]ING PR[employer] MACHINIST 08/03/2024 12:53 PM PRINTING PR[employer] MACHINIST Narrative [facility] - 08/03/2024 1:30 PM PRINTING PR[employer] MACHINIST Pete Olmos MD LAB - URINALYSIS ORD ERABLES [facility] [address] [place] [address] * XR Lumbar Spine 2 or 3Vw (08/02/2024 2:10 PM PR[employer]ING [employer] MACHINIST) Anatomical Region Laterality Modality Spine Computed Radiogr aphy 08/02/2024 2:26 PM PRINTING PR[employer] MACHINIST Narrative 08/02/2024 2:29 PM PRINTING PR[employer] MACHINIST EXAM: XR LUMBAR SPINE 2 OR 3VW [...] PTH INTACT W/O CALCIUM (08/02/2024 3:19 AM PRINTING PRESS MACHINIST) PTH Intact 275.2(H) 8.7 - 77.1 pg/mL 08/02/2024 4:05 AM [facility] Blood BLOOD SPECIMEN / Unknown Venipuncture / Unknown 08/02/2024 3:19 AM PRINTING PRESS MACHINIST 08/02/2024 3:30 AM [facility] Miguel Angel Mccain MD LAB - CHEMISTRY AIDEN KEVIN [facility] Organization Address City/State/ZIP Co de Phone Number [facility] [address] [place] [address] * (ABNORMAL) RENAL FUNCTION PANEL (08/02/2024 3:19 AM PRINTING PRESS MACHINIST) Only the most recent of3 resultswithin the time period is included. Glucose 112(H) 70 - 99 mg/dL 08/02/2024 4:06 AM [facility] Sodium 140 136 - 145 mmol/L 08/02/2024 4:06 AM [facility] Potassium 3.1(L) 3.5 - 5.1 mmol/L 08/02/2024 4:06 AM [facility] Chloride 103 98 - 107 mmol/L 08/02/2024 4:06 AM [facility] CO2 28 22 - 29 mmol/L 08/02/2024 4:06 AM [facility] Calcium 5.8(LL) 8.4 - 10.4 mg/dL 08/02/2024 4:06 AM [facility] Anion Gap 9 6 - 16 mmol/L 08/02/2024 4:06 AM [facility] BUN 4(L) 7 - 26 mg/dL 08/02/2024 4:06 AM [facility] Creatinine 0.75 0.57 - 1.11 mg/dL 08/02/2024 4:06 AM [facility] Albumin 2.4(L) 3.4 - 5.0 gm/dL 08/02/2024 4:06 AM [facility] Phosphorus 2.4(L) 2.5 - 4.5 mg/dL 08/02/2024 4:06 AM [facility] eGFR by CKD-EPI 88(L) >=90 mL/min/1.7 3 m2 08/02/2024 4:06 AM [facility] Blood BLOOD SPECIMEN / Unknown Venipuncture / Unknown 08/02/2024 3:19 AM PRINTING PRESS MACHINIST 08/02/2024 3:30 AM PRINTING PRESS MACHINIST Miguel Angel Mccain MD LAB - CHEMISTRY AIDEN KEVIN Performing Organization Address [facility] de Phone Number [facility] [id number] [place] [address] * (ABNORMAL) CALCIUM BLOOD (08/01/2024 3:41 AM PRINTING PRESS MACHINIST) Pathologist [facility] Calcium 5.4(LL) 8.4 - 10.4 mg/dL 08/01/2024 4:21 AM PRINTING PRESS MACHINIST [facility] Blood BLOOD SPECIMEN / Unknown Venipuncture / Unknown 08/01/2024 3:41 AM PRINTING PRESS MACHINIST 08/01/2024 3:52 AM PRINTING PRESS MACHINIST Peewee Esquivel DO LAB - CHEMISTRY AIDEN KEVIN Performing Organization Address [facility] de Phone Number [facility] [address] [place] [address] * (ABNORMAL) HGB HCT PANEL (07/31/2024 7:39 AM PRINTING PRESS MACHINIST) Only the most recent of4 resultswithin the time period is included. Pathologist [facility] Hemoglobin 8.3(L) 11.9 - 15.8 g/dL 07/31/2024 7:47 AM PRINTING PRESS MACHINIST [facility] Hematocrit 23.7(L) 34.8 - 46.1 % 07/31/2024 7:47 AM PRINTING PRESS MACHINIST [facility] Blood BLOOD SPECIMEN / Unknown Venipuncture / Unknown 07/31/2024 7:39 AM PRINTING PRESS MACHINIST 07/31/2024 7:43 AM PRINTING PRESS MACHINIST Cruz Whitfield MD LAB - HEMATOLOGY OR DERABLES Performing Organization Address [facility] de Phone Number [facility] [address] [place] [address] * TRANSFUSE RED BLOOD CELL LEUKOREDUCED UNIT(S) (07/31/2024 5:59 AM PRINTING PRESS MACHINIST) Peewee Esquivel DO NURSING - BLOOD PROD TRANSFUSION * PREPARE (CROSSMATCH) RBC UNIT(S), 1 Units (07/31/2024 3:35 AM PRINTING PRESS MACHINIST) Only the most recent of2 resultswithin the time period is included. Pathologist [facility] Unit Description AS1 LR PRBC [facility] Unit ABO B [facility] Rh POS [facility] Product Number R02 [facility] Unit Donor # [id number] DP C BLOOD BANK Unit Status transfused DP BL OOD BANK Product Code [id number] [facility] Blood Type Barcode 7300 [facility] Expiration Date [id number] D [facility] Blood Bank BLOOD SPECIMEN / Unknown 07/28/2024 8:53 PM PRINTING PRESS MACHINIST Miguel Angel Mccain MD LAB - BLOOD BANK ORD ERABLES Performing Organization Address [facility] de Phone Number [facility] [address] [place] [address] * (ABNORMAL) VITAMIN D 25-HYDROXY (07/31/2024 2:15 AM PRINTING PRESS MACHINIST) Pathologist [facility] Vitamin D, 25 Hydroxy 12.3(L) 30 - 80 ng/mL 07/31/2024 3:23 AM PRINTING PRESS MACHINIST [facility] Blood BLOOD SPECIMEN / Unknown Venipuncture / Unknown 07/31/2024 2:15 AM PRINTING PRESS MACHINIST 07/31/2024 2:22 AM PRINTING PRESS MACHINIST Narrative [facility] - 07/31/2024 3:23 AM PRINTING PRESS MACHINIST Vitamin D Status: Deficiency <20 ng/mL Insufficiency 20-30 ng/mL Sufficiency 30-100 ng/mL Toxicity >100 ng/mL Miguel Angel Mccain MD LAB - CHEMISTRY ORDE RABUTE Performing Organization Address [facility] Co de Phone Number [facility] [address] [place] [address] * (ABNORMAL) FOLATE (07/31/2024 2:15 AM PRINTING PRESS MACHINIST) Pathologist [facility] Folate 5.2(L) 7.0 - 31.4 ng/mL 07/31/2024 3:23 AM PRINTING PRESS MACHINIST [facility] Blood BLOOD SPECIMEN / Unknown Venipuncture / Unknown 07/31/2024 2:15 AM PRINTING PRESS MACHINIST 07/31/2024 2:22 AM PRINTING PRESS MACHINIST Miguel Angel Mccain MD LAB - CHEMISTRY AIDEN KEVIN Performing Organization Address [facility] de Phone Number [facility] [id number] [place] [address] * (ABNORMAL) VITAMIN B12 (07/31/2024 2:15 AM PRINTING PRESS MACHINIST) Pathologist [facility] Vitamin B12 >2,000(H) 213 - 816 pg/mL 07/31/2024 3:27 AM PRINTING PRESS MACHINIST [facility] Blood BLOOD SPECIMEN / Unknown Venipuncture / Unknown 07/31/2024 2:15 AM PRINTING PRESS MACHINIST 07/31/2024 2:22 AM PRINTING PRESS MACHINIST Miguel Angel Mccain MD LAB - CHEMISTRY AIDEN KEVIN Performing Organization Address [facility] de Phone Number [facility] [address] [place] [address] * (ABNORMAL) IRON + TRANSFERRIN PANEL (07/31/2024 2:15 AM PRINTING PRESS MACHINIST) Pathologist [facility] Iron 84 40 - 150 ug/dL 07/31/2024 2:55 AM PRINTING PRESS MACHINIST [facility] Transferrin 123(L) 174 - 382 mg/dL 07/31/2024 2:55 AM PRINTING PRESS MACHINIST [facility] TIBC Calculated 154(L) 240 - 450 ug/dL 07/31/2024 2:55 AM PRINTING PRESS MACHINIST [facility] Iron Saturation % 55(H) 20 - 50 % 07/31/2024 2:55 AM PRINTING PRESS MACHINIST [facility] Blood BLOOD SPECIMEN / Unknown Venipuncture / Unknown 07/31/2024 2:15 AM PRINTING PRESS MACHINIST 07/31/2024 2:22 AM PRINTING PRESS MACHINIST Miguel Angel Mccain MD LAB - CHEMISTRY AIDEN KEVIN Performing Organization Address [facility] de Phone Number [facility] [address] [place] [address] * TRANSFUSE RED BLOOD CELL LEUKOREDUCED UNIT(S) (07/30/2024 7:41 AM PRINTING PRESS MACHINIST) Peewee Esquivel DO NURSING - BLOOD PROD TRANSFUSION * BLOOD TYPE VERIFICATION (07/30/2024 2:06 AM PRINTING PRESS MACHINIST) ABO Rh B POS 07/30/2024 4:2 5 AM PRINTING PRESS MACHINIST [facility] Blood Bank BLOOD SPECIMEN / Unknown Venipuncture / Unknown 07/30/2024 2:06 AM PRINTING PRESS MACHINIST 07/30/2024 3:11 AM PRINTING PRESS MACHINIST Yi Grier MD LAB - BLOOD BANK ORD ERABLES Performing Organization Address City/[facility] Co de Phone Number [facility] [address] [place] [address] * (ABNORMAL) PT-INR (07/30/2024 2:06 AM PRINTING PRESS MACHINIST) Only the most recent of2 resultswithin the time period is included. Pathologist [facility] PT 19.8(H) 12.1 - 14.8 sec 07/30/2024 3:12 AM PRINTING PRESS MACHINIST [facility] Comment:This result represen ts a significant difference from this patient's most recent previous value. Clinical correlation is therefore recommended. INR 1.7(H) 0.9 - 1.1 07/30/2024 3:12 AM PRINTING PRESS MACHINIST [facility] Blood BLOOD SPECIMEN / Unknown Venipuncture / Unknown 07/30/2024 2:06 AM PRINTING PRESS MACHINIST 07/30/2024 2:27 AM PRINTING PRESS MACHINIST Narrative [facility] - 07/30/2024 3:12 AM PRINTING PRESS MACHINIST Conventional Warfarin Anticoagulant Therapy: INR Reference Range: 2.0-3.0 Intensive Warfarin Anticoagulant Therapy: INR Reference Range: 2.5-3.5 Yi Grier MD LAB - COAGULATION OR DERABLES Performing Organization Address City/[facility]/ZIP Co de Phone Number [facility] [address] [place] [address] * (ABNORMAL) CBC W/O DIFFERENTIAL (07/30/2024 2:06 AM PRINTING PRESS MACHINIST) Only the most recent of3 resultswithin the time period is included. WBC 12.5(H) 4.0 - 10.7 x10E9/L 07/30/2024 2:30 AM [facility] RBC Count 2.06(L) 3.90 - 5.20 x10E12/L 07/30/2024 2:30 AM [facility] Hemoglobin 6.4(L) 11.9 - 15.8 g/dL 07/30/2024 2:30 AM [facility] Hematocrit 18.7(L) 34.8 - 46.1 % 07/30/2024 2:30 AM [facility] MCV 90.8 80.0 - 98.0 fL 07/30/2024 2:30 AM [facility] MCH 31.1 26.7 - 33.6 pg 07/30/2024 2:30 AM [facility] MCHC 34.2 31.7 - 36.3 g/dL 07/30/2024 2:30 AM [facility] RDW-CV 18.1(H) 11.3 - 14.8 % 07/30/2024 2:30 AM [facility] Platelet Count 161 150 - 420 x10E9/L 07/30/2024 2:30 AM [facility] MPV 10.0 7.8 - 11.4 fL 07/30/2024 2:30 AM [facility] Blood BLOOD SPECIMEN / Unknown Venipuncture / Unknown 07/30/2024 2:06 AM PRINTING PRESS MACHINIST 07/30/2024 2:27 AM PRINTING PRESS MACHINIST Yi Grier MD LAB - HEMATOLOGY ORD ERABLES [facility] [address] [place] [address] * US ABDOMEN LIMITED (RUQ) (07/29/2024 2:29 PM PRINTING PRESS MACHINIST) Anatomical Region Laterality Modality Abdomen Ultrasound 07/29/2024 3:34 PM PRINTING PRESS MACHINIST Impressions 07/30/2024 10:05 AM PRINTING PRESS MACHINIST IMPRESSION: 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 Hepatic steatosis with a mass right lobe most consistent with focal fatty sparing. Lack of ability to compare to the outside images result in decreased sensitivity. > Interpreting Provider: Kameron Sprague MD on 07/30/2024 10:05 AM Narrative 07/30/2024 10:05 AM PRINTING PRESS MACHINIST PROCEDURE: US ABDOMEN LIMITED, DATE/TIME OF EXAM: [...] MD ORDERABLES * EGD (07/29/2024 6:57 AM PRINTING PRESS MACHINIST) Report Endoscopy POC _ Patient Name: Sarahy Rodriguez Procedure Date: 07/29/2024 6:57 AM Date of : 1960 Admit Type: Inpatient Age: 64 Gender: Female Attending MD: Cathleen Estrada MD, [id number] _ Procedure: Upper GI endoscopy Indications: Melena [...] GI notes Procedure Code(s): --- Professional --- 56860, Esophagogastroduoden oscopy, flexible, transoral; diagnostic, including collection of specimen(s) by brushing or washing, when performed (separate procedure) --- Technical --- 04621, Esophagogastroduoden oscopy, flexible, transoral; diagnostic, including collection [...] K92.1, Melena (includes Hematochezia) CPT copyright 202 [employer]. All rights reserved. The codes documented in this report are preliminary and upon him coder review may be revised to meet current compliance requirements. Cathleen Estrada MD 07/29/2024 9:00:40 AM Number of Addenda: 0 Note Initiated On: 07/29/2024 6:57 AM [facility] 07/29/2024 6:57 AM PRINTING PRESS MACHINIST Narrative Procedure Note Cathleen Estrada MD - [...] GI PROCEDURE ORDERAB LES Performing Organization Address [facility] Co de Phone Number [facility] [place] [address] * CULTURE BLOOD (07/28/2024 10:03 PM PRINTING PRESS MACHINIST) Only the most recent of2 resultswithin the time period is included. Culture No growth day 5 LINO 08/03/2024 1:30 AM PRINTING PRESS MACHINIST [facility] Blood PERIPHERAL BLOOD / Unknown Venipuncture / Unknown 07/28/2024 10:03 PM PRINTING PRESS MACHINIST 07/28/2024 10:07 PM PRINTING PRESS MACHINIST Fabio Santos MD LAB - MICROBIOLOGY O RDERABLES Performing Organization Address [facility] Co de Phone Number [facility] [address] [place] [address], [facility] [phone] * TYPE + SCREEN PANEL (07/28/2024 6:52 PM PRINTING PRESS MACHINIST) ABO Rh B POS 07/28/2024 9:52 PM PRINTING PRESS MACHINIST [facility] Comment:No history; collect retype. Antibody Screen NEG 9:52 PM PRINTING PRESS MACHINIST [facility] Blood Bank BLOOD SPECIMEN / Unknown Venipuncture / Unknown 07/28/2024 6:52 PM PRINTING PRESS MACHINIST 07/28/2024 8:53 PM PRINTING PRESS MACHINIST Fabio Santos MD LAB - BLOOD BANK ORD ERABLES Performing Organization Address [facility] Co de Phone Number [facility] [address] [place] [address], [facility] [phone] from Last 3 Months Advance Directives Documents on File Type Date Recorded Patient Respiratory Tech Expl anation Adv Directive/Living Will/POA 08/08/2024 10:51 PM Adv Directive/Living Will/POA 08/01/2024 8:23 PM Adv Directive/Living Will/POA 07/31/2024 7:48 PM * Full Code (Latest Code Status on File) Date Activated Date Inactivated Comments 07/28/2024 3:11 PM 08/07/2024 5:49 PM Care Teams Generator Assembler Relationship Specialty Start Date End Date Priyank Zepeda MD [address] [place] [address] PCP - General 02/23/22
--- OUTSIDE RECORDS SUMMARY | 2024-08-24 22:07 | XMS_ITS | Clinical Summary ---
Author Organization [facility] Address [address] [place] [address] Care Team Providers Care Afternoon Nanny Name Role Phone Priyank Zepeda MD Primary Care Provider [phone] Allergies Active Allergy Reactions Criticality Noted Date [...] Used Date Smoking Tobacco: Never [facility] Yoyoities Answer Date Recorded In the past 12 months has e [employer], [employer], oil, or water [employer] threatened to shut off services in your [...] any time in the past 12 m [facility], were you homeless or living in a residential (including now)? No 11/17/2023 Comments Unknown Sex [...] Most Recently Relevant to Health Maintenance Insurance [employer] Advance Directives * Full Code (Latest Code Status on File) Date Activated Date Inactivated Comments 11/17/2023 1:12 AM 11/18/2023 5:01 PM * Full Code Date Activated Date Inactivated Comments 09/28/2023 1:27 AM 10/02/2023 3:59 PM Care Teams Afternoon Nanny Relationship Specialty Start Date End Date Priyank Zepeda MD [address] [place] [address] PCP - General INTERNAL MEDICINE 09/19/19
--- OUTSIDE RECORDS SUMMARY | 2024-08-24 22:07 | XMS_ITS | Encounter Summary ---
Author Organization [facility] Address [address] [place] [address] Care Team Providers Care Administrative Services Assistant Name Role Phone Priyank Zepeda MD Primary Care Provider [phone] Encounter Details Date Type Department Care Team (Late st Contact Info) Description 10/03/2023 Hospital Follow-up Call [facility] [address] [place] [address] Chelsea Bishop RN Social History Tobacco Use Types Packs/Day Years Used Date Smoking Tobacco: Never [facility] Utilities Answer Date Recorded In the past 12 months has e electric, gas, oil, or water [employer] threatened to shut off services in your [...] in the past 12 m [facility], were you homeless or living in a usp (including now)? No 09/28/2023 Comments Unknown Sex [...] on filedocumented in this encounter Care Teams Administrative Services Assistant Relationship Specialty Start Date End Date Priyank Zepeda MD [address] [place] [address] PCP - General INTERNAL MEDICINE 09/19/19 documented as of this encounter
--- OUTSIDE RECORDS SUMMARY | 2024-08-24 22:07 | XMS_ITS | Encounter Summary ---
Author Organization [facility] Address [address] [place] [address] Phone Care Team Providers Care Manager Product Marketing Name Role Phone Priyank Zepeda MD Primary Care Provider [phone] Reason for Visit * Reason Onset Date Comments Medication Management 08/16/2024 Encounter Details Date Type Department Care Team (Late st Contact Info) Description [facility]20[facility] [address] [place] [address] Eloisa Ruiz, PT Medication Management Social History Tobacco Use Types Packs/Day Years Used Date Smoking Tobacco: Never Assessed Comments Unknown Sex and Gender Information Value Date Recorded Sex Assigned at Not on file Legal Sex Female 11:40 PM CDT Gender Identity Not on file Sexual Orientation Not on file documented as of this encounter Miscellaneous Notes * Telephone Encounter - Eloisa uRiz, PT - 08/16/2024 3:33 PM CDT S - Medication discrepancies B - Current [facility] patient [facility] for low potassium from /08/15/24. A -changes [...] 08/27/2024 1:00 AM CD[facility] [address] [address] 08/27/2024 11:00 AM CDT [facility] [address] [address] 08/28/2024 1:00 AM CDT [facility] [address] [place] [address] Mary Perez RN [place] 08/29/2024 11:00 AM CDT [facility] [address] [place] [address] Viola Richard, CLIENT SUPPORT MANAGER CT 08/30/2024 1:00 AM CDT [facility] [address] [address] 09/02/2024 1:00 AM CDT [facility] [address] [place] [address] Eloisa Ruiz, PT 09/03/2024 1:00 AM CDT [facility] [address] [place] [address] Mary Perez RN [place] 09/04/2024 1:00 AM CDT [facility] [address] [address] 09/04/2024 2:00 AM CDT Home Care Visit [facility] [address] 09/06/2024 1:00 AM CDT [facility] [address] [place] [address] 09/10/2024 1:00 AM CDT Home Care Visit [facility] [address] Moni Mendoza OT 09/11/2024 1:00 AM CDT Home Care Visit [facility] [address] 09/12/2024 1:00 AM CDT Home Care Visit [facility] [address] Asia Salazar, [facility] documented as of this encounter Visit Diagnoses Not on filedocumented in this encounter Care Teams Manager Product Marketing Relationship Specialty Start Date End Date Priyank Zepeda MD [address] [place] [address] PCP - General Internal Medicine 08/08/24 documented as of this encounter
--- OUTSIDE RECORDS SUMMARY | 2024-08-24 22:07 | XMS_ITS | Clinical Summary ---
Author Organization [facility] Address [address] [address] Care Team Providers Care Blister Rust Eradicator Name Role Phone Priyank Zepeda MD Primary Care Provider [phone] Allergies Active Allergy Reactions Criticality Noted Date [...] mouth in the morning. 5 Active pancrelipase, Sbc-Qjih-Mxib, (CREON) 59173-[address] units capsule Take 1 capsule by mouth in the morning and 1 capsule at noon and 1 capsule in the evening. Take with meals. 5 Active Cholecalciferol (Vitamin D3) 1.25 MG (82682 UT) capsule Take 50,000 Units by mouth in the morning and 50,000 Units in the evening. Active multivitamin-ir nc-kqzairte-xep ic acid (CENTRUM) chewable tablet Chew 1 [...] 25 Discontinu ed(Therapy completed) ergocalciferol 1.25 MG (25716 UT) capsule Take 50,000 Units by mouth [...] CDT Respiratory Rate 18 05/15/2018 11:00 AM PIPE WASHER Oxygen Saturation 96% 01/23/2024 1:26 PM CDT Inhaled Oxygen Concentration - - Weight 77.6 kg (171 lb) 01/23/2024 1:26 PM CDT Height 165.1 cm (5' 5 ) 01/23/2024 1:26 PM CDT Body Mass Index 28.46 01/23/2024 1:26 PM CDT Plan of Treatment Upcoming Encounters Date Type Department Care Team (Late st Contact Info) Description 10/22/2024 10:45 AM CDT Office Visit [facility] Evgeny. [address] [facility] [address] [place] [phone] Kristofer Ortiz MD [address] [facility] [address] [place] [address] Health Maintenance Due Date Last Done Comments [...] patient's age to complete this topic Insurance [facility] Advance Directives Documents on File Type Date Recorded Patient Government Clerk Expl anation Power of Data Modeler 10/25/2021 11:10 AM Othe r - POA Power of Data Modeler 10/25/2021 11:10 AM Othe r - POA Care Teams Blister Rust Eradicator Relationship Specialty Start Date End Date Priyank Zepeda MD [address] [place] [address] PCP - General Internal Medicine 05/17/19
--- OUTSIDE RECORDS SUMMARY | 2024-08-24 22:07 | XMS_ITS | Data Portability ---
Author Organization [facility], [address] [place] [address] Neurology ([place]) Address [address] [address] Care Team Providers Care Air Intercept Controller Supervisor Name Role Phone KIERAN CALL Primary Care Provider [phone] Assessment Encounter Date Assessment Date Assessment LastModified by Organization Details LastModified Time 10/17/2023 10/17/2023 - Keep already scheduled appointment with GI -secure an appointment with hematology -follow up with your PCP if needed -Call this office with any questions or concerns [email or web address] Not available 10/17/2023 14:57:46 Plan of Treatment [...] city possi ble) ----- 53.3 Not Available [facility] - All Sites [address] [place] [address] 240, [place], [address], 06/05/2024 01:21:09 10/02/19 24 10/02/2023 PTH (para [...] anni rable . ----- 182.5 Not Available [facility] [address], [address], 06/05/2024 01:21:09 10/02/19 24 10/02/2023 phosp horus , serum or plasm a phosphorus 2 mg/dL 2.5-4. 9 low Not Available Test [facility] [address] [place], [address], 06/05/2024 01:21:08 10/02/19 24 10/02/2023 BMP, blood sodium 140 mmol/ L 136-14 5 Not Available [facility] [address], [place], [address], 06/05/2024 01:21:02 10/02/19 24 10/02/2023 BMP, blood potassium 2.9 mmol/ L 3.5-5. 1 low criti bnejamin resul t(s) dial d to and read back by: vicky blanton at: 16:07 :22 10/01 by assp. ----- 2.9 Not Available [facility] [address], [place], [address], 06/05/2024 01:21:02 10/02/19 24 10/02/2023 BMP, blood chloride 110 mmol/ L 98-107 high Not Available [facility] [address], [place], [address], 06/05/2024 01:21:02 10/02/19 24 10/02/2023 BMP, blood CO2 24.9 mmol/ L 21.0-3 2.0 Not Available [facility] [address], [place], [address], 06/05/2024 01:21:02 10/02/19 24 10/02/2023 BMP, blood anion gap 5.1 mmol/ L 5.0-15 .0 Not Available [facility] [address], [place], [address], 06/05/2024 01:21:02 10/02/19 24 10/02/2023 BMP, blood glucose 116 mg/dL 74-106 high Not Available [facility] [address], [place], [address], 06/05/2024 01:21:02 10/02/19 24 10/02/2023 BMP, blood BUN 11 mg/dL 7-18 Not Available [facility] [address], [place], [address], 06/05/2024 01:21:02 10/02/19 24 10/02/2023 BMP, blood creatinine 0.91 mg/dL 0.55-1 .02 Not Available [facility] [address], [place], [address], 06/05/2024 01:21:02 10/02/19 24 10/02/2023 BMP, blood calcium 7.8 mg/dL 8.5-10 .1 low Not Available [facility] [address], [place], [address], 06/05/2024 01:21:02 10/02/19 24 10/02/2023 BMP, blood eGFR 70 mL/mi n/1.7 3_M2 >90 low Not Available [place] [address] [facility] [address], [place], [address], 06/05/2024 01:21:02 10/02/19 24 10/02/2023 BMP, blood calculated osmolality 290 mOsm/ kg refer ence range not estab lishe d ----- 290 Not Available [facility] [address], [place], [address], 06/05/2024 01:21:02 10/02/19 24 10/02/2023 BMP, blood [...] mL/mi n/1.7 3 m2 ----- Not Available [facility] [address], [place], [address], 06/05/2024 01:21:02 01/18/20 24 12/07/2022 imagi ng/di [...] Name and Address Organization Details Recorded Time 018272 adhesive tape environme nt,medica tion rash Not available Not available 07/03/20232013 99436 UNK React ion: Rash; Comme nt: Adhes messi Tape React ion Date: 27 Jul 2012 ; Not Available Not Available Not Available 292793 Cipro medicatio n Not available Not available Not available 07/03/20232013 61617 3 RxNorm Comme nt: React ion Date: 01 Jan 2013 ; Not Available Not Available Not Available 594356 succinylc holine chloride medicatio n Not available Not available Not available 07/03/20232015 3565 RxNorm Not Available Not Available Not Available Medications Name Sig Start Date Stop Date Status Note LastModified by Organization Details LastModified Time Prescription - New active Information Clerk: MEGHAN NIMESH (Audiology) , Sergey n [...] /min 123 mm[Hg] 74 mm[Hg] Tina cuello [facility] 4 14:41:31 Social History Question Answer [...] Do You Have A Medical Power Of Interline Clerk? Yes [id number] Information not available 10/16/2023 What [...] SNOMED-CT Code Diagnosis ICD10 Code Diagnosis Note [id number] DO Catia Melendrez 4th Trauma Surgery ([place]) [address] [place] [address] 10/17/2023 14:31:01 10/18/2023 15:51:26 Hospital inpatient stay within past 30 days [id number] 106 Z76.89 Health Concerns Section Related Observation LastModified by Organization Detmorteza ls LastModified Time None Recorded Concern Status LastModified by Organization Details LastModified Time None Recorded Advance Directives Directive Y: Payers Encounter Date Sequence Insurance Name Policy Number Policy Juares Covered Member ID Juares Member ID Guarantor Name 10/17/2023 1 [facility] ON OR AFTER 12/03/20 (MEDICAID REPLACEMENT - HMO) Louise Griffithjordin [id number] Louise Bailey Teresa Notes Date Note Type [...] appointment scheduled for November 01 with GI SQUEEGEE TENDER for consultation. She is eating and drinking well. She denies n/v. YULISSA MARTINEZ, GLUE SPREADING MACHINE OPERATOR-C [address] [place] [address], [phone], [facility] 10/17/2023 14:58:51 OBGyn Episode No OBEpisode recorded.
--- NOTE | 2024-08-24 22:16 | ED.GIBLEED ---
HPI - GI Bleed General Chief complaint: GI Bleed Stated complaint: RECTAL BLEEDING Time Seen by Provider: 08/24/24 22:13 Source: patient and family Mode of arrival: wheelchair History of Present Illness HPI Narrative: this is a 64-year-old female with history of hyperparathyroidism, with history of GI bleed on Eliquis for a portal vein thrombosis with some history of lower extremity edema was recently at [facility] had a workup for GI bleed and had an upper endoscopy at that time. Patient is concerned that she saw a little flecks of black stool otherwise has 2+ pitting edema in lower extremities bilaterally with no shortness of breath no chest pain no fever chills no nausea vomiting. Patient had recent and endoscopy performed which showed superficial ulcers with a clean ulcer base with that were found at her and a stim [place] site with nonbleeding jejunal ulcer with a clean ulcer base. Normal stomach normal esophagus were found on her upper GI endoscopy performed [facility]. Onset (ago): week(s) Pain Consistency: intermittent Severity: mild Related Data Home Medications ?Medication ?Instructions ?Recorded ?Confirmed ?Last Taken ?Type amitriptyline 10 mg tablet 10 mg PO BID 10/24/19 08/14/24 02/27/24 History fluoxetine 40 mg capsule 40 mg PO BID 10/24/19 08/14/24 02/27/24 History cyanocobalamin (vitamin B-12) 2,500 mcg PO DAILY 02/15/22 08/14/24 02/27/24 History beta carotene 30 mg capsule 30 mg PO DAILY 02/25/22 08/14/24 02/27/24 History calcium citrate 760 mg PO BID 09/27/23 08/14/24 02/27/24 History ergocalciferol (vitamin D2) 1,250 1,250 mcg PO WEEKLY 09/27/23 08/14/24 02/26/24 History mcg (50,000 unit) capsule (Vitamin D2) calcitriol 0.5 mcg capsule 0.25 mcg PO Q12H 12/25/23 08/14/24 02/27/24 History calcium carbonate (Tums) 200 mg PO BID 12/25/23 08/14/24 02/27/24 History pantoprazole 40 mg tablet,delayed 40 mg PO BID 12/25/23 08/14/24 02/27/24 History release ferrous sulfate 325 mg (65 mg 325 mg PO TID 02/06/24 08/14/24 02/27/24 History iron) tablet (FeroSul) albuterol sulfate 90 mcg/actuation 2 puff inhalation Q4-6H PRN 07/27/24 08/14/24 Unknown History aerosol inhaler shortness of breath or wheezing apixaban 5 mg tablet (Eliquis) 5 mg PO BID 07/27/24 08/14/24 Unknown History levothyroxine 125 mcg tablet 125 mcg PO DAILY@0630 07/27/24 08/14/24 Unknown History Allergies Allergy/AdvReac Type Severity Reaction Status Date / Time ciprofloxacin (From Cipro) Allergy Other Verified 08/14/24 00:24 Review of Systems Review of Systems: All systems reviewed & are unremarkable except as noted in HPI and below PMFSH Past Medical History Medical History Hypocalcemia Hypokalemia Portal vein thrombosis CKD (chronic kidney disease) Bradycardia Hypothyroidism Hyperparathyroidism HTN (hypertension) Renal tubular acidosis Trichotillomania Surgical History Surgical History History of colon surgery 02/15/22 Open right hemicolectomy with ileocolic anastomosis History of extraction of renal calculus History of colonoscopy with polypectomy May 2021 with benign polypectomy History of laparoscopic cholecystectomy cholecystectomy during her laparoscopic gastric surgery History of laparoscopic appendectomy H/O knee surgery H/O gastric bypass 2002 in [facility] - laparoscopic duodenal switch procedure H/O parathyroidectomy Family History Family History Father Asthma Hypertension Mother Breast cancer Sibling Diabetes mellitus Hypertension Grandparent Cancer Grandparent Diabetes mellitus Cancer Other No pertinent family history Social History Social History Smoking status: Never smoker Second hand tobacco smoke exposure: No Alcohol intake: never Substance use: never Substance use type: does not use Other substance usage details: none Do You Feel Safe in your Home?: Yes Lack of Transportation: No Lack of Food: Never True Current Housing: I Have Housing Concerned About Future Housing: No Difficulty Paying Gas/Electric Bills: No Difficulty Paying for Meds: No Currently Unemployed: No Education: Bachelor's Degree Difficulty w/ Childcare or Family Care: No Occupation/Education: other Additional occupation/education comments: on disability Spiritual care concerns: No Exam Const: General: healthy appearing, no acute distress and alert Nutritional Appearance: well nourished and obese Orientation/consciousness: patient oriented x3 Limitations: no limitations HENMT: Head: normal to inspection Neck: Neck: normal visual inspection Chest: Chest palpation & inspection: normal inspection of the chest Resp: Effort & Inspection: normal respiratory effort Auscultation: clear to auscultation bilaterally Cardio: Rate: regular rate Rhythm: regular rhythm GI: GI Palp: Yes Soft to palpation Auscultation: normal bowel sounds Other: Rectal exam shows external hemorrhoids with no acute bleeding and digital rectal exam showed no evidence of dark tarrry stools or overt bleeding. : General: Yes bladder normal to palpation Skin: General skin exam: normal color Rashes: no rashes Neuro: General: patient oriented x3, moves all extremities and no meningeal signs Course Course Emergency Course: Patient had IV placed and 40 of IV Lasix administered for bilateral lower extremity edema, patient had digital rectal exam performed which showed external hemorrhoids that were nonbleeding, with no black tarry stool and no overt blood per rectum. Labs performed and reviewed with patient. Critical Care Time Critical Care Time Critical Care Time: No Discharge Plan Discharge Patient Language: Belarusian Prescriptions: No Action cyanocobalamin (vitamin B-12) 2,500 mcg PO DAILY ergocalciferol (vitamin D2) [Vitamin D2] 1,250 mcg (50,000 unit) Capsule 1,250 mcg PO WEEKLY Patient Comments: On Mondays calcium citrate 250 mg calcium Tablet 760 mg PO BID Rx Instructions: 760MG/3.5GRAM ORAL GRANULES BID fluoxetine 40 mg capsule 40 mg PO BID amitriptyline 10 mg tablet 10 mg PO BID calcitriol 0.5 mcg capsule 0.25 mcg PO Q12H Rx Instructions: 2 CAPSULES IN THE MORNING AND EVENING ferrous sulfate [FeroSul] 325 mg (65 mg iron) tablet 325 mg PO TID levothyroxine 125 mcg tablet 125 mcg PO DAILY@0630 albuterol sulfate 90 mcg/actuation HFA aerosol inhaler 2 puff INHALATION Q4-6H PRN (Reason: shortness of breath or wheezing) Eliquis 5 mg tablet 5 mg PO BID furosemide 40 mg Tablet 40 mg PO DAILY Qty: 30 0RF sodium bicarbonate 650 mg Tablet 1,950 mg PO DAILY Qty: 90 0RF spironolactone 25 mg tablet 25 mg PO DAILY Qty: 30 0RF potassium chloride 20 mEq tablet,ER particles/crystals 40 meq PO BID Qty: 60 0RF beta carotene 30 mg capsule 30 mg PO DAILY pantoprazole 40 mg tablet,delayed release (DR/EC) 40 mg PO BID calcium carbonate [Tums] 200 mg calcium (500 mg) tablet,chewable 200 mg PO BID Follow-up/Referrals: Priyank Zepeda MD [Primary Care Provider] -
[2024-08-24 22:20] VITALS: BP 161/92; PULSE 94; RESP 16; TEMP 36.6; O2SAT 99
--- NOTE | 2024-08-24 22:33 | PC.NURSE ---
Called Zahraa in Lab @ 10:25 to let her know that she had labs in 2.
--- OUTSIDE RECORDS SUMMARY | 2024-08-24 22:34 | XMS_ITS | Encounter Summary ---
Author Organization [facility] Address [address] [place] [address] Phone Care Team Providers Care Maitre D Name Role Phone Priyank Valdez MD Primary Care Provider [phone] Reason for Visit * Auth/Cert (Routine) Specialty Diagnoses / Procedures Referred By Contjose t Referred To Contact Referral ID Status Reason Start Date Expiration Date Visits Re quested Visits Authorized [id number] 1 8 Encounter Details Date Type Department Care Team (Late Contact Info) Description 08/23/2024 12:00 PM CDT [facility] [address] [place] [address] Asia Salazar, [place] OT - HOME VISIT Social History Tobacco [...] 08/27/2024 1:00 AM CDT [facility] [address] [place] [address] Asia Salazar, LANGUAGE TEACHER [place] 08/27/2024 11:00 AM CDT [facility] [address] [place] [address] Viola Richard SELVAGE MACHINE OPERATOR [place] 08/28/2024 1:00 AM CDT [facility] [address] [place] [address] Mary Perez RN [place] 08/29/2024 11:00 AM CDT [facility] [address] [place] [address] Viola Richard, SELVAGE MACHINE OPERATOR [place] 08/30/2024 1:00 AM CDT [facility] [address] [place] [address] Asia Salazar, LANGUAGE TEACHER [place] 09/02/2024 1:00 AM CDT [facility] [address] [place] [address] Eloisa Ruiz, PT 09/03/2024 1:00 AM CDT Home Care Visit [address] [address] Mary Perez RN [place] 09/04/2024 1:00 AM CDT [facility] [address] [place] [address] Viola Richard, SELVAGE MACHINE OPERATOR [place] 09/04/2024 2:00 AM CDT [facility] [address] [place] [address] Asia Salazar, LANGUAGE TEACHER [place] 09/06/2024 1:00 AM CDT [facility] [address] [place] [address] Asia Salazar, [place] 09/10/2024 1:00 AM CDT [facility] [address] [place] [address] Moni Mendoza OT 09/11/2024 1:00 AM CDT [facility] [address] [place] [address] Mary Perez RN [place] 09/12/2024 1:00 AM CDT [facility] [address] [place] [address] Asia Salazar OTA [place] documented as of [...] goals the following were identified. Patient Centered Call Center Operator Goal: to be independent with shower Target date: 09/14/24 OCCUPATIONAL THERAPY EVALUATION ORDER (O) No OT Homemaking Description: Short Term Goal: Patient will demonstrate ability to complete meal prep at standing level with cane as needed with independence. To be met by 09/14/24. Call Center Operator Goal: Patient will demonstrate ability to complete [...] Description: 64 y.o. female was admitted to [facility] (from [facility] ER) from 07/28/24-08/07/24 with c/o bloody and black stool. She had an EGD completed which showed non-bleeding ulcers. She was also found to be anemic and to have abnormal labs. She received 3 blood transfusions while inpatient. Pt returned home with orders for [facility] PT/OT. She followed up with her PCP and had labwork done. She was subsequently hospitalized from 08/14/24 to 08/15 at [facility] for hypokalemia and hypocalcemia. Pt lives alone in a ground floor apt. She reports the she has the support of her sabianist family but most of her family lives out of town. She is currently in the process of being evaluated through [facility] for a homemaker. Pt is alert and [...] on wheels for safe transport, use of cold roll packer sheet iron to retrieve clothing at bottom of washer and back of dryer, use of laundry pods and/or bottle with spout for easy pouring in order to eliminate need to cotton picker heavy bottle and pour detergent. Additional education [...] up. documented in this encounter Care Teams Maitre D Relationship Specialty Start Date End Date Priyank Valdez MD [address] [place] [address] PCP - General Internal Medicine 08/08/24 documented as of this encounter
--- OUTSIDE RECORDS SUMMARY | 2024-08-24 22:35 | XMS_ITS | Encounter Summary ---
Author Organization [facility] Address [address] [facility] [address] [place] [address] Phone Care Team Providers Care Circuit Board Repair Technician Name Role Phone Priyank Zepeda MD Primary Care Provider [phone] Encounter Details Date Type Department Care Team (Late Contact Info) Description 12/06/2019 Orders Only [facility]. [address] [facility] [address] [place] [phone] Kristofer Ortiz MD [address] [facility] [address] [place] [address] Chronic kidney disease stage 3 [...] Description 10/22/2024 10:45 AM CDT Office Visit [facility]. [address] [facility] [address] [place] [id number] Kristofer Ortiz MD [address] [place] [address] [address] documented as of this encounter Visit Diagnoses Diagnosis Chronic kidney disease stage 3 (HCC) documented in this encounter Care Teams Circuit Board Repair Technician Relationship Specialty Start Date End Date Priyank Zepeda MD [address] [place] [address] PCP - General Internal Medicine 05/17/19 documented as of this encounter
--- OUTSIDE RECORDS SUMMARY | 2024-08-24 22:35 | XMS_ITS | Clinical Summary ---
Author Organization [facility] Address [address] [address] Care Team Providers Care Control Systems Engineer Name Role Phone Priyank Zepeda MD Primary Care Provider [phone] Allergies Active Allergy Reactions Criticality Noted Date [...] mouth in the morning. 5 Active pancrelipase, Wvu-Zxvg-Tcmp, (CREON) 995[address] units capsule Take 1 capsule by mouth in the morning and 1 capsule at noon and 1 capsule in the evening. Take with meals. 5 Active Cholecalciferol (Vitamin D3) 1.25 MG (71033 UT) capsule Take 50,000 Units by mouth in the morning and 50,000 Units in the evening. Active multivitamin-ir tg-hgiwshzh-uhr ic acid (CENTRUM) chewable tablet Chew 1 [...] 25 Discontinu ed(Therapy completed) ergocalciferol 1.25 MG (50691 UT) capsule Take 50,000 Units by mouth [...] CDT Respiratory Rate 18 05/15/2018 11:00 AM MANAGER OF LOSS PREVENTION OPERATIONS Oxygen Saturation 96% 01/23/2024 1:26 PM CDT Inhaled Oxygen Concentration - - Weight 77.6 kg (171 lb) 01/23/2024 1:26 PM CDT Height 165.1 cm (5' 5 ) 01/23/2024 1:26 PM CDT Body Mass Index 28.46 01/23/2024 1:26 PM CDT Plan of Treatment Upcoming Encounters Date Type Department Care Team (Late st Contact Info) Description 10/22/2024 10:45 AM CDT Office Visit [facility]. [address] [facility] [address] [place] [phone] Kristofer Ortiz MD [address] [facility] [address] [place] [address] Health Maintenance Due Date Last Done Comments [...] age to complete this topic Insurance [facility] Advance Directives Documents on File Type Date Recorded Patient Surgery Technician Expl anation Power of Chief School Finance Officer 10/25/2021 11:10 AM Othe r - POA Power of Chief School Finance Officer 10/25/2021 11:10 AM Othe r - POA Care Teams Control Systems Engineer Relationship Specialty Start Date End Date Priyank Zepeda MD [address] [place] [address] PCP - General Internal Medicine 05/17/19
--- OUTSIDE RECORDS SUMMARY | 2024-08-24 22:35 | XMS_ITS | Encounter Summary ---
Author Organization [facility] Address [address] [place] [address] Phone Care Team Providers Care Group Rooms Coordinator Name Role Phone Priyank Zepeda MD Primary Care Provider [phone] Reason for Visit * Reason Onset Date Comments Medication Management 08/16/2024 Encounter Details Date Type Department Care Team (Late st Contact Info) Description 08/16/2024 [facility] [address] [place] [address] Eloisa Ruiz, PT Medication Management Social History Tobacco Use Types Packs/Day Years Used Date Smoking Tobacco: Never Assessed Comments Unknown Sex and Gender Information Value Date Recorded Sex Assigned at Not on file Legal Sex Female 11:40 PM CDT Gender Identity Not on file Sexual Orientation Not on file documented as of this encounter Miscellaneous Notes * Telephone Encounter - Elosia Ruiz, PT - 08/16/2024 3:33 PM CDT S - Medication discrepancies B - [facility] at [facility] for low potassium from /08/15/24. A [...] 08/27/2024 1:00 AM CDT [facility] [address] [address] Asia Salazar OTA [place] 08/27/2024 11:00 AM CDT [facility] [address] [address] Viola Richard PTA ID 08/28/2024 1:00 AM CDT [facility] [address] [place] [address] Mary Perez RN [place] 08/29/2024 11:00 AM CDT [facility] [address] [place] [address] Viola Richard, PRODUCTION LEADER [place] 08/30/2024 1:00 AM CDT [facility] [address] [address] Asia Salazar OTA ID 09/02/2024 1:00 AM CDT [facility] [address] [place] [address] Eloisa Ruiz, PT 09/03/2024 1:00 AM CDT [facility] [address] [place] [address] Mary Perez RN [place] 09/04/2024 1:00 AM CDT [facility] [address] [address] Viola Harris PTA ID 09/04/2024 2:00 AM CDT Home Care Visit [address] [address] Asia Salazar OTA ID 09/06/2024 1:00 AM CD[facility] [address] [place] [address] Asia Salazar OTA ID 09/10/2024 1:00 AM CDT Home Care Visit [address] [address] Moni Mendoza OT 09/11/2024 1:00 AM CDT Home Care Visit [address] [address] Mary Perez RN [place] 09/12/2024 1:00 AM CDT Home Care Visit [address] [address] Asia Salazar, [facility] documented as of this encounter Visit Diagnoses Not on filedocumented in this encounter Care Teams Group Rooms Coordinator Relationship Specialty Start Date End Date Priyank Zepeda MD [address] [place] [address] PCP - General Internal Medicine 08/08/24 documented as of this encounter
--- OUTSIDE RECORDS SUMMARY | 2024-08-24 22:35 | XMS_ITS | Encounter Summary ---
Author Organization [facility] Address [address] [place] [address] Phone Care Team Providers Care Line Painting Machine Operator Name Role Phone Priyank Zepeda MD Primary Care Provider Reason for Visit * Reason Onset Date Comments Medication Management 08/13/2024 Encounter Details Date Type Department Care Team (Late st Contact Info) Description 08/13[facility]20[facility] [address] [place] [address] Eloisa Ruiz, PT Medication Management Social History [...] 08/27/2024 1:00 AM CDT Home Care Visit [address] [address] Asia Salazar, TRUCK BODY BUILDER [place] 08/27/2024 11:00 AM CDT Home Care Visit [address] [address] Viola Richard, RADIOLOGY TRANSCRIPTIONIST [place] 08/28/2024 1:00 AM CDT Home Care Visit [address] [address] Mary Perez, [place] 08/29/2024 11:00 AM CDT Home Care Visit [address] [address] Viola Richard, RADIOLOGY TRANSCRIPTIONIST [place] 08/30/2024 1:00 AM CDT Home Care Visit [address] [address] Asia Salazar, TRUCK BODY BUILDER [place] 09/02/2024 1:00 AM CDT Home Care Visit [address] [address] Eloisa Ruiz, PT 09/03/2024 1:00 AM CDT Home Care Visit [address] [address] Mary Perez RN [place] 09/04/2024 1:00 AM CDT Home Care Visit [address] [address] Viola Richard, RADIOLOGY TRANSCRIPTIONIST [place] 09/04/2024 2:00 AM CDT Home Care Visit [address] [address] Asia Salazar, TRUCK BODY BUILDER [place] 09/06/2024 1:00 AM CDT Home Care Visit [address] [address] Asia Salazar, [place] 09/10/2024 1:00 AM CDT Home [facility] Visit [facility] [address] [place] [address] Moni Mendoza OT 09/11/2024 1:00 AM CDT [facility] [address] [place] [address] Mary Perez RN [place] 09/12/2024 1:00 AM CDT [facility] [address] [place] [address] Asia Salazar OTA [place] documented as of this encounter Visit Diagnoses Not on filedocumented in this encounter Care Teams Line Painting Machine Operator Relationship Specialty Start Date End Date Priyank Zepeda MD [address] [place] [address] PCP - General Internal Medicine 08/08/24 documented as of this encounter
--- OUTSIDE RECORDS SUMMARY | 2024-08-24 22:35 | XMS_ITS | Encounter Summary ---
Author Organization [facility] Address [address] [place] [address] Care Team Providers Care Sales And Service Engineer Name Role Phone Priyank Zepeda MD Primary Care Provider [phone] Encounter Details Date Type Department Care Team (Late st Contact Info) Description 10/03/2023 Hospital Follow-up Call [facility] [address] [place] [address] Chelsea Bishop RN Social History Tobacco Use Types Packs/Day Years Used Date Smoking Tobacco: Never [facility] Utilities Answer Date Recorded In the past 12 months has e electric, gas, oil, or water [employer] threatened to shut off services in your [...] any time in the past 12 m [facility], were you homeless or living in a fdc (including now)? No 09/28/2023 Comments Unknown Sex [...] on filedocumented in this encounter Care Teams Sales And Service Engineer Relationship Specialty Start Date End Date Priyank Zepeda MD [address] [place] [address] PCP - General INTERNAL MEDICINE 09/19/19 documented as of this encounter
--- OUTSIDE RECORDS SUMMARY | 2024-08-24 22:35 | XMS_ITS | Clinical Summary ---
Author Organization [facility] Address [address] [address] Phone Care Team Providers Care Windmill Mechanic Name Role Phone Priyank Zepeda MD Primary Care Provider [phone] Allergies No known active allergies Medications calcium [...] 2 times per day 08/13/19 Active Pancrelipase, Zgz-Onfk-Kuvk, (CREON PO) Take 24,000 Units by mouth [...] daily. 08/21/19 Active pancrelipase, lipase-protease -amylase, (Creon) [address] Particles Take 1 Capsule [...] 08/23/2024 12:00 PM CDT Home Care Visit [facility] [address] [place] [address] Asia Salazar OTA OT - HOME VISIT 08/22/2024 1:00 PM CDT [facility] Care Visit [facility] [address] [address] Viola Richard, MATERNITY FLOOR SUPERVISOR PT - HOME VISIT 08/20/2024 12:00 PM CDT Home Care Visit [address] [address] Mary Perez RN SN - [facility] INITIAL EVALUATION 08/20/2024 11:15 AM CDT Home Care Visit [address] [address] Moni Mendoza, OT OT - HOME VISIT 08/20/2024 10:00 AM CDT Home Care Visit [address] [address] Viola Richard, MATERNITY FLOOR SUPERVISOR PT - HOME VISIT 08/20/2024 Travel 08/18/2024 Home Care Visit [address] [address] Eloisa Ruiz, PT CARE CONFERENCE 08/16/2024 1:30 PM CDT Home Care Visit [address] [address] Eloisa Ruiz, PT PT - HOME VISIT 08/16/2024 12:45 PM CDT Home Care Visit [address] [address] Moni Mendoza, OT OT - INITIAL EVALUATION 08/16/[address] [address] Eloisa Ruiz, PT Medication Management 08/14/2024 Home Care Visit [address] [address] Eloisa Ruiz, PT TELEPHONE ENCOUNTER 08/14/2024 Home Care Visit [address] [address] Eloisa Ruiz, PT TELEPHONE ENCOUNTER 08/13/2024 2:30 PM CDT Home Care Visit [address] [address] Eloisa Ruiz, PT PT - [facility] START OF CARE 08/13/[address] [address] Eloisa Ruiz, PT Medication Management 08/13/2024 Plan of Care Documentation [address] [address] from Last 3 Months Social History Tobacco [...] 08/27/2024 1:00 AM CDT Home Care Visit [address] [address] Asia Salazar OTA [place] 08/27/2024 11:00 AM CDT Home Care Visit [address] [address] Viola Richard, MATERNITY FLOOR SUPERVISOR [place] 08/28/2024 1:00 AM CDT Home Care Visit [address] [address] Mary Perez RN [place] 08/29/2024 11:00 AM CDT Home Care Visit [address] [address] Viola Richard, MATERNITY FLOOR SUPERVISOR [place] 08/30/2024 1:00 AM CDT Home Care Visit [address] [address] Asia Salazar PUBLIC RELATIONS ACCOUNT SUPERVISOR [place] 09/02/2024 1:00 AM CDT Home Care Visit [address] [address] Eloisa Ruiz, PT 09/03/2024 1:00 AM CDT Home Care Visit [address] [address] Mary Perez RN [place] 09/04/2024 1:00 AM CD[facility] [address] [place] [address] Viola Richard, MATERNITY FLOOR SUPERVISOR [place] 09/04/2024 2:00 AM CDT Home Care Visit [address] [address] Asia Salazar [place] 09/06/2024 1:00 AM CDT Home Care Visit [address] [address] Asia Salazar [place] 09/10/2024 1:00 AM CDT Home Care Visit [address] [address] Moni Mendoza OT 09/11/2024 1:00 AM CDT Home Care Visit [address] [address] Mary Perez, [place] 09/12/2024 1:00 AM CD[facility] [address] [place] [address] Asia Salazar, PUBLIC RELATIONS ACCOUNT SUPERVISOR [place] Health Maintenance Due Date Last Done Comments [...] Documents on File Type Date Recorded Patient Chart Writer Expl anation Power of Pathology Supervisor for Health Care 08/14/2024 12:10 PM POA HC 07/30/2024 * Full Code (Latest Code Status on File) Date Activated Date Inactivated Comments 08/13/2024 10:26 PM Care Teams Windmill Mechanic Relationship Specialty Start Date End Date Priyank Zepeda MD [address] [place] [address] PCP - General Internal Medicine 08/08/24
--- OUTSIDE RECORDS SUMMARY | 2024-08-24 22:35 | XMS_ITS | Clinical Summary ---
Author Organization [facility] Address [address] [place] [address] Care Team Providers Care Zigzag Appliquer Name Role Phone Priyank Zepeda MD Primary Care Provider [phone] Allergies Active Allergy Reactions Criticality Noted Date [...] Packs/Day Years Used Date Smoking Tobacco: Never [facility] [email or web address] Answer Date Recorded In the past 12 months has e [employer], [employer], oil, or water [employer] threatened to shut off services in your [...] any time in the past 12 m [facility], were you homeless or living in a correction (including now)? No 11/17/2023 Comments Unknown Sex [...] Most Recently Relevant to Health Maintenance Insurance [employer] Advance Directives * Full Code (Latest Code Status on File) Date Activated Date Inactivated Comments 11/17/2023 1:12 AM 11/18/2023 5:01 PM * Full Code Date Activated Date Inactivated Comments 09/28/2023 1:27 AM 10/02/2023 3:59 PM Care Teams Zigzag Appliquer Relationship Specialty Start Date End Date Priyank Zepeda MD [address] [place] [address] PCP - General INTERNAL MEDICINE 09/19/19
--- OUTSIDE RECORDS SUMMARY | 2024-08-24 22:35 | XMS_ITS ---
Author Organization Unknown Address [address] [place] [phone] Phone Care Team Providers Care Property Utilization Officer Name Role Phone GARFIELD Ashby Attending Unavailable [...] em Smoking History Never smoker (Never Smoked) 377311200 SNOMED CT Sex Female Vital Signs Vital Sign Value Unit [place] [facility] [place] Date/Time Recent/Initial? Code Code System Body Mass Index 30.45 kg/m2 11/13/2023 14:43 Initial 67444 -5 INC Systolic Blood Pressure 136 mm[Hg] 12/14/2023 08:17 Initial 8480- 6 LOINC Diastolic Blood Pressure 78 mm[Hg] 12/14/2023 08:17 Initial 8462- 4 INC Body Surface Area 1.95 m2 11/13/2023 14:43 Initial 3140- 1 LOINC Height 165.100 0 cm 65.00 in 11/13/2023 14:43 Initial 8302- 2 INC O2 Saturation 99 % 2023 08:17 Initial 08827 -5 INC Pulse 57.0 /min 12/14/2023 08:17 Initial 8867- 4 LOINC Respiration 20 /min 12/14/19 08:17 Initial 9279- 1 LOINC Temperature 36.2 Kait 97.1 F 12/14/19 24 08:17 Initial 8310- 5 LOINC Weight 83.01 kg 183.00 lbs 11/13/2023 14:43 Initial 80033 -7 [facility] Medications Medication Start Date End Date Route Frequency Dose Code Code System Medication Instructions Home Meds Vitamin B12 1000 MCG Sublingual Tablet 12/14/2023 Unknown SUBLINGUAL ONCE A DAY [address] 1000 MCG SUBLINGUAL ONCE A DAY Tums Extra Strength 750 MG Oral Tablet, Chewable 12/14/2023 Unknown ORAL NEEDED 750 MG 7660838 RxNorm TAKE 750 MG ORAL NEEDED Amitriptyline 10MG Oral Tablet 12/14/2023 Unknown ORAL TWICE A DAY 10 MILLIGRA MS 863614 RxNorm TAKE 10 MILLIGRAMS ORAL TWICE A DAY Calcitriol 0.5MCG Oral Capsule, Liquid Filled 12/14/2023 Unknown ORAL TWICE A DAY 2 CAPSULE 406396 RxNorm TAKE 2 CAPSULE ORAL TWICE A DAY Calcium Citrate Powder 12/14/[address] R[address]TE NOT APPLICABLE 1 unit(s) RxNorm 1 EACH ROUTE NOT APPLICABLE Eliquis 5MG Oral Tablet 12/14/2023 12/14/19 24 ORAL TWICE A DAY 5 MILLIGRA MS 9692012 RxNorm TAKE 5 MILLIGRAMS ORAL TWICE A DAY FLUoxetine 20MG/5ML Oral Solution 12/14/2023 Unknown ORAL TWICE A DAY 373074 RxNorm TAKE mL ORAL TWICE A DAY Iron 325MG Oral Tablet 12/14/2023 Unknown ORAL THREE TIMES A DAY 325 MILLIGRA MS 023350 RxNorm TAKE 325 MILLIGRAMS ORAL THREE TIMES A DAY Levothyroxine 125MCG Oral Tablet 12/14/2023 Unknown ORAL ONCE A DAY 0.5 TABLET 611071 RxNorm TAKE 0.5 TABLET ORAL ONCE A DAY Loratadine 10MG Oral Tablet 12/14/2023 Unknown ORAL NEEDED 10 MILLIGRA MS 269609 RxNorm TAKE 10 MILLIGRAMS ORAL NEEDED Metoprolol Succinate 50MG Oral Tablet, Extended Release 12/14/2023 Unknown ORAL ONCE A DAY 50 MILLIGRA MS 155219 RxNorm TAKE 50 MILLIGRAMS ORAL ONCE A DAY Potassium Chloride 20MEQ Oral Tablet, Extended Release 12/14/2023 Unknown ORAL TWICE A DAY 20 MEQ 6171158 RxNorm TAKE 20 MEQ ORAL TWICE A DAY Sodium Bicarbonate 650MG Oral Tablet 12/14/2023 Unknown ORAL THREE TIMES A DAY 650 MILLIGRA MS 892273 RxNorm TAKE 650 MILLIGRAMS ORAL THREE TIMES A DAY Tab-A-Ezio [id number] U-6MCG Oral Tablet 12/14/2023 Unknown ORAL ONCE A DAY 1 unit(s) 856152 RxNorm TAKE 1 EACH ORAL ONCE A [...] Code Syste m Vocal cord nodule completed 58967107 SNOMEDC T Fracture of tibia completed 87431061 SNOMEDC T Volvulus completed 8285207 SNOMEDCT APPENDECTOMY completed 40319830 SNOMEDCT Removal of kidney stone completed 1342248 S NOMEDCT Anesthesia for lower intesti nal endoscopic procedures, endoscope introduce 12/14/2023 completed 29611 CPT Gastric bypass completed 214582932 SNOMEDCT History of parathyroidectomy completed 5426711 16763415 SNOMEDCT Colonoscopy, flexible; with biopsy, single or multiple 12/14/2023 completed 53474 CPT Problems Problem Start Date Resolved Date Status Code Code System CHRONIC KIDNEY DISEASE, STAG E 3A active 777857970 SNOMED-CT Allergies and Adverse Reactions Allergy Substance Reaction Severity Start Date Concern Status Code Code System ADHESIVE Itching (SNOMED-CT: 915759520) Active SUCCINYLCHOLINE CHLORIDE HARD TO WAKE UP (SNOMED-CT: null) Active 3565 RxNorm CIPRO REDNESS IV ONLY (SNOMED-CT: null) Mild Active 108249 RxNorm No Known Drug Allergies Active 795315217 SNOMED-CT Plan of Treatment Colonoscopy 12/14/2023 Encounters Encounter Diagnosis Start Date Code Code Sys tem Noninfective gastroenteritis and colitis, unspecified 12/14/2023 SNOMED-CT Personal Care Team Section Performer Name Performer Role Active Date Inactive KIERAN Gilbert PCP - Primary care physician 2024-04-16
--- OUTSIDE RECORDS SUMMARY | 2024-08-24 22:35 | XMS_ITS | Clinical Summary ---
Author Organization [facility] [employer] Address [address] [place] [address] Care Team Providers Care Loan Collector Name Role Phone Priyank Zepeda MD Primary Care Provider [phone] Source Comments [facility],non-owned Affiliates and Associated Physician Practices is amultiple site organization consisting of ambulatory clinics and hospital sitesin [place], [place], [place] and [place]. This disclosure is being madepursuant to the Care Everywhere program and may not contain all information available regarding this patient. Last updated 18.[facility] [employer] Allergies Active Allergy Reactions Criticality Noted Date [...] 5 Active Cholecalciferol (vitamin D3) 1.25 MG (37459 UT) capsule Take 1 (one) capsule by mouth every 7 days 5 capsule 5 Active furosemide (Lasix) 40 MG tablet Take 1 (one) tablet by mouth once daily 30 tablet 5 Active Calcium Carbonate Antacid (calcium carbonate, 500 mg elemental Ca/5 mL,) 1250 MG/5ML suspension Take 10 mL by mouth 3 times daily with meals 473 mL 1 5 Active pancrelipase (Creon 24,000) 59642-41997 units capsule Take 1 (one) capsule by [...] 5 08/08/19 25 Discontinued pancrelipase (Creon 24,000) 74984-75196 units capsule Take 1 (one) capsule by [...] Department Care Team Description 07/29/2024 8:42 AM CERTIFIED MASSAGE THERAPIST Anesthesia Event [facility]ly [facility] [address] [place] [address] Bozena Osullivan DO Boyce, Lisa C, PAMELA-JCOY 07/29/2024 8:30 AM CERTIFIED MASSAGE THERAPIST - 07/29/2024 9:00 AM CERTIFIED MASSAGE THERAPIST Surgery [facility] [address] [place] [address] Cathleen Estrada MD ESOPHAGOGASTRODUODENOSCOPY (EGD) DIAGNOSTIC 07/28/2024 2:19 PM CERTIFIED MASSAGE THERAPIST - 08/07/2024 4:44 PM CERTIFIED MASSAGE THERAPIST Hospital Encounter [facility] 5N Pulmonary Med [id number] [place] [address] Yi Grier MD Fatima, Noor E, MD [...] medical care, and heating? Somewhat hard 07/28/2024 [facility] - Occupational Stress [...] any time in the past 12 m [facility], were you homeless or living in a retirement (including now)? No 07/28/2024 Sex and Gender Information Value Date Recorded Sex Assigned at Not on file Gender Identity Not on file Sexual Orientation Not on file Last Filed Vital Signs Vital Sign Reading Time Taken Comments Blood Pressure 112/78 08/07/2024 2:44 PM CERTIFIED MASSAGE THERAPIST Pulse 93 08/07/2024 2:44 PM CERTIFIED MASSAGE THERAPIST Temperature 37.5 C (99.5 F) 08/07/2024 11:33 AM CERTIFIED MASSAGE THERAPIST Respiratory Rate 18 08/07/2024 11:3 3 AM CERTIFIED MASSAGE THERAPIST Oxygen Saturation 97% 08/07/2024 2:44 PM CERTIFIED MASSAGE THERAPIST Inhaled Oxygen Concentration - - Weight 87.5 kg (192 lb 14.4 oz) 025 12:04 AM CERTIFIED MASSAGE THERAPIST Height 165.1 cm (5' 5 ) 07/28/2024 4:01 PM CERTIFIED MASSAGE THERAPIST Body Mass Index 32.1 07/28/2024 4:01 PM CERTIFIED MASSAGE THERAPIST Plan of Treatment Health Maintenance Due Date [...] CARDIAC RHYTHM STRIP ORDER 08/08/2024 11:03 PM CERTIFIED MASSAGE THERAPIST APHERESIS/TRANSFUSIO N ORDER 08/08/2024 11:03 PM CERTIFIED MASSAGE THERAPIST B-TYPE NATRIURETIC PEPTIDE AM Draw 08/07/2024 1:59 AM CERTIFIED MASSAGE THERAPIST COMPREHENSIVE METABOLIC PANEL AM Draw 08/07/2024 1:59 AM CERTIFIED MASSAGE THERAPIST VAS BILATERAL VENOUS DUPLEX LE PENDING DISCHARGE 08/06/2024 2:30 PM CERTIFIED MASSAGE THERAPIST Bilateral leg edema MAGNESIUM BLOOD Routine 08/06/2024 6:07 AM CERTIFIED MASSAGE THERAPIST BASIC METABOLIC PANEL (CALCIUM TOTAL) Routine 08/06/2024 6:07 AM CERTIFIED MASSAGE THERAPIST PHOSPHORUS BLOOD Routine 08/06/2024 6:07 AM CERTIFIED MASSAGE THERAPIST MRI LUMBAR SPINE WO CONTRAST Routine 08/05/2024 9:48 AM CERTIFIED MASSAGE THERAPIST Acute midline low back pain without sciatica PHOSPHORUS BLOOD Routine 08/05/2024 6:53 AM CERTIFIED MASSAGE THERAPIST COMPREHENSIVE METABOLIC PANEL AM Draw 08/05/2024 6:53 AM CERTIFIED MASSAGE THERAPIST MAGNESIUM BLOOD AM Draw 08/05/2024 6:53 AM CERTIFIED MASSAGE THERAPIST CBC W AUTO DIFFERENTIAL AM Draw 08/05/2024 6:53 AM CERTIFIED MASSAGE THERAPIST PROTEIN URINE TIMED QUANTITATIVE Routine 08/04/2024 1:55 PM CERTIFIED MASSAGE THERAPIST URIC ACID URINE TIMED Routine 08/04/2024 1:55 PM CERTIFIED MASSAGE THERAPIST CREATININE CLEARANCE URINE TIMED + BLOOD Routine 08/04/2024 1:55 PM CERTIFIED MASSAGE THERAPIST CALCIUM URINE TIMED Routine 08/04/2024 1 :55 PM CERTIFIED MASSAGE THERAPIST COMPREHENSIVE METABOLIC PANEL AM Draw 08/04/2024 6:55 AM CERTIFIED MASSAGE THERAPIST MAGNESIUM BLOOD AM Draw 08/04/2024 6:55 AM CERTIFIED MASSAGE THERAPIST CBC W AUTO DIFFERENTIAL AM Draw 08/04/2024 6:55 AM CERTIFIED MASSAGE THERAPIST URINALYSIS REFLEX TO MICROSCOPIC NO CULTURE Routine 08/03/2024 12:49 PM CERTIFIED MASSAGE THERAPIST COMPREHENSIVE METABOLIC PANEL AM Draw 08/03/2024 9:26 AM CERTIFIED MASSAGE THERAPIST MAGNESIUM BLOOD AM Draw 08/03/2024 9:26 AM CERTIFIED MASSAGE THERAPIST CBC W AUTO DIFFERENTIAL AM Draw 08/03/2024 9:26 AM CERTIFIED MASSAGE THERAPIST XR LUMBAR SPINE 2 OR 3VW Routine 08/02/2024 2:10 PM CERTIFIED MASSAGE THERAPIST Acute midline low back pain without sciatica PTH INTACT W/O CALCIUM Routine 08/02/2024 3:19 AM CERTIFIED MASSAGE THERAPIST MAGNESIUM BLOOD AM Draw 08/02/2024 3:19 AM CERTIFIED MASSAGE THERAPIST RENAL FUNCTION PANEL AM Draw 08/02/2024 3:19 AM CERTIFIED MASSAGE THERAPIST CBC W AUTO DIFFERENTIAL AM Draw 08/02/2024 3:19 AM CERTIFIED MASSAGE THERAPIST CALCIUM BLOOD STAT 08/01/2024 3:41 AM CERTIFIED MASSAGE THERAPIST MAGNESIUM BLOOD AM Draw 08/01/2024 1:20 AM CERTIFIED MASSAGE THERAPIST RENAL FUNCTION PANEL AM Draw 08/01/2024 1:20 AM CERTIFIED MASSAGE THERAPIST CBC W AUTO DIFFERENTIAL AM Draw 08/01/2024 1:20 AM CERTIFIED MASSAGE THERAPIST HGB HCT PANEL Timed 07/31/2024 7:39 AM CERTIFIED MASSAGE THERAPIST TRANSFUSE RED BLOOD CELL LEUKOREDUCED UNIT(S) Routine 07/31/2024 3:40 AM CERTIFIED MASSAGE THERAPIST PREPARE RBC LEUKOREDUCED UNIT Routine 07/31/2024 3:35 AM CERTIFIED MASSAGE THERAPIST MAGNESIUM BLOOD AM Draw 07/31/2024 2:15 AM CERTIFIED MASSAGE THERAPIST RENAL FUNCTION PANEL AM Draw 07/31/2024 2:15 AM CERTIFIED MASSAGE THERAPIST CBC W AUTO DIFFERENTIAL AM Draw 07/31/2024 2:15 AM CERTIFIED MASSAGE THERAPIST VITAMIN D 25-HYDROXY AM Draw 07/31/2024 2:15 AM CERTIFIED MASSAGE THERAPIST VITAMIN B12 AM Draw 07/31/2024 2:15 AM CERTIFIED MASSAGE THERAPIST FOLATE Routine 07/31/2024 2:15 AM CERTIFIED MASSAGE THERAPIST IRON + TRANSFERRIN PANEL Routine 07/31/2024 2:15 AM CERTIFIED MASSAGE THERAPIST HGB HCT PANEL Timed 07/30/2024 10:03 AM CERTIFIED MASSAGE THERAPIST TRANSFUSE RED BLOOD CELL LEUKOREDUCED UNIT(S) Routine 07/30/2024 5:20 AM CERTIFIED MASSAGE THERAPIST PREPARE RBC LEUKOREDUCED UNIT Routine 07/30/2024 5:15 AM CERTIFIED MASSAGE THERAPIST BLOOD TYPE VERIFICATION Routine 07/30/2024 2:06 AM CERTIFIED MASSAGE THERAPIST CBC W/O DIFFERENTIAL AM Draw 07/30/2024 2:06 AM CERTIFIED MASSAGE THERAPIST PT-INR AM Draw 07/30/2024 2:06 AM CERTIFIED MASSAGE THERAPIST BASIC METABOLIC PANEL (CALCIUM TOTAL) AM Draw 07/30/2024 2:06 AM CERTIFIED MASSAGE THERAPIST HGB HCT PANEL Timed 07/29/2024 9:08 PM CERTIFIED MASSAGE THERAPIST US ABDOMEN LIMITED Routine 07/29/2024 2: 29 PM CERTIFIED MASSAGE THERAPIST Gastrointestinal hemorrhage with melena HGB HCT PANEL Routine 07/29/2024 10:19 AM CERTIFIED MASSAGE THERAPIST PT-INR AM Draw 07/29/2024 10:19 AM CERTIFIED MASSAGE THERAPIST MA ED EGD FLEX TRANSORAL DX 07/29/2024 8:30 AM CERTIFIED MASSAGE THERAPIST EGD Routine 07/29/2024 6:57 AM CERTIFIED MASSAGE THERAPIST CBC W/O DIFFERENTIAL Routine 07/29/2024 6:42 AM CERTIFIED MASSAGE THERAPIST COMPREHENSIVE METABOLIC PANEL Routine 07/29/2024 6:42 AM CERTIFIED MASSAGE THERAPIST MAGNESIUM BLOOD Routine 07/29/2024 6:42 AM CERTIFIED MASSAGE THERAPIST PHOSPHORUS BLOOD Routine 07/29/2024 6:42 AM CERTIFIED MASSAGE THERAPIST CULTURE BLOOD Timed 07/28/2024 10:03 PM CERTIFIED MASSAGE THERAPIST CULTURE BLOOD Timed 07/28/2024 8:16 PM CERTIFIED MASSAGE THERAPIST TYPE + SCREEN PANEL Routine 07/28/2024 6 :52 PM CERTIFIED MASSAGE THERAPIST COMPREHENSIVE METABOLIC PANEL STAT 07/28/2024 5:25 PM CERTIFIED MASSAGE THERAPIST CBC W/O DIFFERENTIAL STAT 07/28/2024 5:25 PM CERTIFIED MASSAGE THERAPIST from Last 3 Months Results * CARDIAC RHYTHM STRIP ORDER (08/08/2024 11:03 PM CERTIFIED MASSAGE THERAPIST) Narrative 08/08/2024 11:03 PM CERTIFIED MASSAGE THERAPIST Ordered by an unspecified provider. Scanned Document CARDIAC SERVICES ORD ERABLES * APHERESIS/TRANSFUSION ORDER (08/08/2024 11:03 PM CERTIFIED MASSAGE THERAPIST) Narrative 08/08/2024 11:03 PM CERTIFIED MASSAGE THERAPIST Ordered by an unspecified provider. Scanned Document NURSING - VITAL SIGN S AND ASSESSMENT * B-TYPE NATRIURETIC PEPTIDE (08/07/2024 1:59 AM CERTIFIED MASSAGE THERAPIST) Pathologist [facility] BNP 35 <=100 pg/mL 08/07/2024 2:52 AM CERTIFIED MASSAGE THERAPIST [facility] Blood BLOOD SPECIMEN / Unknown Venipuncture / Unknown 08/07/2024 1:59 AM CERTIFIED MASSAGE THERAPIST 08/07/2024 2:19 AM CERTIFIED MASSAGE THERAPIST Chika Chew MD LAB - CHEMISTRY AIDEN KEVIN [facility] [address] [place] [address] * (ABNORMAL) COMPREHENSIVE METABOLIC PANEL (08/07/2024 1:59 AM CERTIFIED MASSAGE THERAPIST) Only the most recent of6 resultswithin the time period is included. Pathologist [facility] Glucose 97 70 - 99 mg/dL 08/07/2024 2:55 AM [facility] Sodium 136 136 - 145 mmol/L 08/07/2024 2:55 AM [facility] Potassium 3.9 3.5 - 5.1 mmol/L 08/07/2024 2:55 AM [facility] Chloride 104 98 - 107 mmol/L 08/07/2024 2:55 AM [facility] CO2 23 22 - 29 mmol/L 08/07/2024 2:55 AM [facility] Calcium 6.8(L) 8.4 - 10.4 mg/dL 08/07/2024 2:55 AM [facility] Anion Gap 9 6 - 16 mmol/L 08/07/2024 2:55 AM [facility] BUN 9 7 - 26 mg/dL 08/07/2024 2:55 AM [facility] Creatinine 0.95 0.57 - 1.11 mg/dL 08/07/2024 2:55 AM [facility] Alkaline Phosphatase 91 40 - 150 U/L 08/07/2024 2:55 AM [facility] ALT 21 0 - 55 U/L 08/07/2024 2:55 AM [facility] AST 28 5 - 34 U/L 08/07/2024 2:55 AM [facility] Protein Total 4.9(L) 6.4 - 8.3 gm/dL 08/07/2024 2:55 AM [facility] Albumin 2.1(L) 3.4 - 5.0 gm/dL 08/07/2024 2:55 AM [facility] Bilirubin Total 0.6 0.2 - 1.2 mg/dL 08/07/2024 2:55 AM [facility] eGFR by CKD-EPI 66(L) >=90 mL/min/1.7 3 m2 08/07/2024 2:55 AM [facility] Blood BLOOD SPECIMEN / Unknown Venipuncture / Unknown 08/07/2024 1:[address] [facility] 08/07/2024 2:[address] [facility] Chika Chew MD LAB - CHEMISTRY AIDEN KEVIN [facility] Organization Address City/State/ZIP Co de Phone Number [facility] [address] [place] [address] * VAS Bilateral Venous Duplex Le (08/06/2024 2:30 PM CERTIFIED MASSAGE THERAPIST) Anatomical Region Laterality Modality Lower Extremity Ultrasound 08/06/2024 1:50 PM CERTIFIED MASSAGE THERAPIST Narrative Procedure Note Jorge Barakat MD - 08/07/[address] [address] Lower Extremity Venous Ultrasound Report Pat.Name: SARAHY RODRIGUEZ Pat.ID: [id number] St.Date: 08/06/2024 Exam Time: 1:50:00 PM Study Type:LE Venous Age: 1 1960,64Y Sex: FEMALE Sonogrphr: Binh Eldridge RVT Pat. Stat.:Inpatient Room: [facility] ICD - 9: R60.0 CPT - 4: 47609 Reason for Study: Bilateral leg edema History / Clinical: CKD, Liver cirrhosis Procedures: Lower Extremity Venous - Bilateral Race: 1 Visit ID: [id number] ++++++++++++++++++++++++++++++++++++ SUMMARY: ++++++++++++++++++++++++++++++++++++ There is no evidence [...] METABOLIC PANEL (CALCIUM TOTAL) (08/06/2024 6:07 AM CERTIFIED MASSAGE THERAPIST) Only the most recent of2 resultswithin the time period is included. Glucose 87 70 - 99 mg/dL 08/06/2024 8:46 AM [facility] Sodium 137 136 - 145 mmol/L 08/06/2024 8:46 AM [facility] Potassium 3.0(L) 3.5 - 5.1 mmol/L 08/06/2024 8:46 AM [facility] Chloride 103 98 - 107 mmol/L 08/06/2024 8:46 AM [facility] CO2 27 22 - 29 mmol/L 08/06/2024 8:46 AM [facility] Calcium 6.7(L) 8.4 - 10.4 mg/dL 08/06/2024 8:46 AM [facility] Anion Gap 7 6 - 16 mmol/L 08/06/2024 8:46 AM [facility] BUN 7 7 - 26 mg/dL 08/06/2024 8:46 AM [facility] Creatinine 0.81 0.57 - 1.11 mg/dL 08/06/2024 8:46 AM [facility] eGFR by CKD-EPI 81(L) >=90 mL/min/1.7 3 m2 08/06/2024 8:46 AM [facility] Blood BLOOD SPECIMEN / Unknown Venipuncture / Unknown 08/06/2024 6:07 AM CERTIFIED MASSAGE THERAPIST 08/06/2024 6:[address] [facility] Chika Chew MD LAB - CHEMISTRY AIDEN KEVIN [facility] Organization Address City/State/ZIP Co de Phone Number [facility] [address] [place] [address] * PHOSPHORUS BLOOD (08/06/2024 6:07 AM CERTIFIED MASSAGE THERAPIST) Only the most recent of3 resultswithin the time period is included. Phosphorus 3.7 2.5 - 4.5 mg/dL 08/06/2024 6:27 AM CERTIFIED MASSAGE THERAPIST [facility] Blood BLOOD SPECIMEN / Unknown Venipuncture / Unknown 08/06/2024 6:07 AM CERTIFIED MASSAGE THERAPIST 08/06/2024 6:11 AM CERTIFIED MASSAGE THERAPIST Miguel Angel Mccain MD LAB - CHEMISTRY OR[facility] Performing Organization Address [facility] Co de Phone Number [facility] [address] [place] [address] * MAGNESIUM BLOOD (08/06/2024 6:07 AM CERTIFIED MASSAGE THERAPIST) Only the most recent of8 resultswithin the time period is included. Magnesium 1.7 1.6 - 2.6 mg/dL 08/06/2024 8:43 AM CERTIFIED MASSAGE THERAPIST [facility] Blood BLOOD SPECIMEN / Unknown Venipuncture / Unknown 08/06/2024 6:07 AM CERTIFIED MASSAGE THERAPIST 08/06/2024 6:11 AM CERTIFIED MASSAGE THERAPIST Chika Chew MD LAB - CHEMISTRY ORDKyle KEVIN Performing Organization Address [facility] de Phone Number [facility] [address] [place] [address] * MRI Lumbar Spine Wo Contrast (08/05/2024 9:48 AM CERTIFIED MASSAGE THERAPIST) Anatomical Region Laterality Modality Spine Magnetic Resonan ce 08/05/2024 9:51 AM CERTIFIED MASSAGE THERAPIST Impressions 08/05/2024 11:53 AM CERTIFIED MASSAGE THERAPIST IMPRESSION: Multilevel degenerative disc and joint disease. Mild foraminal narrowing at L3-L4 and L4-L5 levels. No canal narrowing seen. Minimal superior endplate compression at T12, associated with mild marrow edema, less than 25% loss of vertical height. Edited by Tressa Phillips on 08/05/2024 10:17 AM > Interpreting Provider: Stefani Zepeda MD on 08/05/2024 11:53 AM Narrative 08/05/2024 11:53 AM CERTIFIED MASSAGE THERAPIST PROCEDURE: MRI LUMBAR SPINE WO CONTRAST DATE/TIME [...] CBC W AUTO DIFFERENTIAL (08/05/2024 6:53 AM CERTIFIED MASSAGE THERAPIST) Only the most recent of6 resultswithin the time period is included. WBC 6.8 4.0 - 10.7 x10E9/L 08/05/2024 7:01 AM CERTIFIED MASSAGE THERAPIST [facility] RBC Count 2.80(L) 3.90 - 5.20 x10E12/L 08/05/2024 7:01 AM CERTIFIED MASSAGE THERAPIST [facility] Hemoglobin 8.6(L) 11.9 - 15.8 g/dL 08/05/2024 7:01 AM CERTIFIED MASSAGE THERAPIST [facility] Hematocrit 26.3(L) 34.8 - 46.1 % 08/05/2024 7:01 AM CERTIFIED MASSAGE THERAPIST [facility] MCV 93.9 80.0 - 98.0 fL 08/05/2024 7:01 AM CERTIFIED MASSAGE THERAPIST [facility] MCH 30.7 26.7 - 33.6 pg 08/05/2024 7:01 AM CERTIFIED MASSAGE THERAPIST [facility] MCHC 32.7 31.7 - 36.3 g/dL 08/05/2024 7:01 AM CERTIFIED MASSAGE THERAPIST [facility] RDW-CV 17.6(H) 11.3 - 14.8 % 08/05/2024 7:01 AM [facility] Platelet Count 111(L) 150 - 420 x10E9/L 08/05/2024 7:01 AM [facility] MPV 10.1 7.8 - 11.4 fL 08/05/2024 7:01 AM [facility] Neutrophil % 70.0 41.0 - 74.0 % 08/05/2024 7:01 AM [facility] Lymphocyte % 13.8(L) 17.0 - 47.0 % 08/05/2024 7:01 AM [facility] Monocyte % 11.7(H) 3.0 - 11.0 % 08/05/2024 7:01 AM [facility] Eosinophil % 3.7 0.0 - 7.0 % 08/05/2024 7:01 AM [facility] Basophil % 0.4 0.0 - 1.6 % 08/05/2024 7:01 AM [facility] Immature Granulocytes % 0.4 0.0 - 1.0 % 08/05/2024 7:01 AM [facility] Neutrophil Absolute 4.76 1.60 - 7.50 x10E9/L 08/05/2024 7:01 AM [facility] Lymphocyte Absolute 0.94(L) 1.00 - 4.40 x10E9/L 08/05/2024 7:01 AM [facility] Monocyte Absolute 0.80 0.15 - 1.00 x10E9/L 08/05/2024 7:01 AM [facility] Eosinophil Absolute 0.25 0.00 - 0.60 x10E9/L 08/05/2024 7:01 AM [facility] Basophil Absolute 0.03 0.00 - 0.13 x10E9/L 08/05/2024 7:01 AM [facility] Blood BLOOD SPECIMEN / Unknown Venipuncture / Unknown 08/05/2024 6:53 AM CERTIFIED MASSAGE THERAPIST 08/05/2024 6:57 AM CERTIFIED MASSAGE THERAPIST Miguel Angel Mccain MD LAB - HEMATOLOGY ORD ERABLES [facility] [address] [place] [address] * URIC ACID URINE TIMED (08/04/2024 1:55 PM CERTIFIED MASSAGE THERAPIST) Uric Acid 24 Hour Urine 205.0 142.3 - 713.2 mg/24 hr 08/06/2024 11:10 AM CERTIFIED MASSAGE THERAPIST [facility] ([facility]) Uric Acid Urine 20.5 Not Estab. mg/dL 08/06/2024 11:[address] [facility] ([facility]) Urine TIMED URINE SPECIMEN / Unknown Timed Urine Volume Measurement / Unknown 08/04/2024 1:55 PM CERTIFIED MASSAGE THERAPIST 08/04/2024 2:02 PM CERTIFIED MASSAGE THERAPIST Narrative [facility] ([facility]) - 08/06/2024 11:10 AM CERTIFIED MASSAGE THERAPIST Performed at: 01 - [address] [id number] [employer]: El Sood PhD, Phone: [phone] Pete Olmos MD LAB - URINE CHEMISTR Y ORDERABLES Performing Organization Address City/[facility]/ZIP Co de Phone Number [facility] ([facility]) [address] [place] [address] * PROTEIN URINE TIMED QUANTITATIVE (08/04/2024 1:55 PM CERTIFIED MASSAGE THERAPIST) Volume 24 Hour Urine 1,000 mL 08/04/2024 2:25 PM CERTIFIED MASSAGE THERAPIST [facility] Collection Time Hours 24 hrs 08/04/2024 2:25 PM CERTIFIED MASSAGE THERAPIST [facility] Protein 24 Hour Urine 72 <300 mg/24hr 08/04/2024 2:25 PM CERTIFIED MASSAGE THERAPIST [facility] Protein Urine 7.2 <11.9 mg/dL 08/04/2024 2:25 PM CERTIFIED MASSAGE THERAPIST [facility] Urine TIMED URINE SPECIMEN / Unknown Timed Urine Volume Measurement / Unknown 08/04/2024 1:55 PM CERTIFIED MASSAGE THERAPIST 08/04/2024 2:02 PM CERTIFIED MASSAGE THERAPIST Pete Olmos MD LAB - URINE CHEMISTR Y ORDERABLES [facility] [address] [place] [address] * CREATININE CLEARANCE URINE TIMED + BLOOD (08/04/2024 1:55 PM CERTIFIED MASSAGE THERAPIST) Volume 24 Hour Urine 1,000 mL 08/04/2024 2:28 PM [facility] Collection Time Hours 24 hrs 08/04/2024 2:28 PM [facility] Height Inches 65 inches 08/04/2024 2:28 PM [facility] Weight in Pounds 160 pounds 08/04/2024 2:28 PM [facility] Surface Area 1.80 08/04/2024 2:28 PM [facility] Creatinine 0.81 0.57 - 1.11 mg/dL 08/04/2024 2:28 PM [facility] Creatinine Urine 82.74 mg/dL 08/04/2024 2:28 PM [facility] Creatinine 24 Hour Urine 827 710 - 1,650 mg/24hr 08/04/2024 2:28 PM [facility] Creatinine Clearance 68 66 - 165 mL/min/1.73 m2 08/04/2024 2:28 PM [facility] Urine TIMED URINE SPECIMEN / Unknown Timed Urine Volume Measurement / Unknown 08/04/2024 1:55 PM CERTIFIED MASSAGE THERAPIST 08/04/2024 2:[address] [facility] Pete Olmos MD LAB - URINE CHEMISTR Y ORDERABLES [facility] [address] [place] [address] * (ABNORMAL) CALCIUM URINE TIMED (08/04/2024 1:[address] [facility]) Calcium Random Urine <2.0 Not Established mg/dL 08/04/2024 7:00 PM [facility] Collection Time Timed Urine 24 Hrs 08/04/2024 7:00 PM [facility] Calcium 24 Hour Urine <20(L) 50 - 300 mg/24 hrs 08/04/2024 7:00 PM [facility] Comment:Unable to calculate excretion rate because the analyte concentration is outside the instrument measuring range. Volume Timed Urine 1,000 mL 08/04/2024 7:00 PM [facility] Urine TIMED URINE SPECIMEN / Unknown Timed Urine Volume Measurement / Unknown 08/04/2024 1:55 PM CERTIFIED MASSAGE THERAPIST 08/04/2024 2:02 PM CERTIFIED MASSAGE THERAPIST Pete Olmos MD LAB - URINE CHEMISTR Y ORDERABLES [facility] [address] [place] [address], [facility] [phone] * (ABNORMAL) URINALYSIS REFLEX TO MICROSCOPIC NO CULTURE (08/03/2024 12:49 PM CERTIFIED MASSAGE THERAPIST) Color UA Yellow Yellow, Straw 08/03/2024 1:30 PM CERTIFIED MASSAGE THERAPIST [facility] Clarity UA Clear Clear 08/03/2024 1:30 PM CERTIFIED MASSAGE THERAPIST [facility] Glucose UA Normal Normal 08/03/2024 1:30 PM CERTIFIED MASSAGE THERAPIST [facility] Bilirubin UA Negative Negative 08/03/2024 1:30 PM CERTIFIED MASSAGE THERAPIST [facility] Ketone UA Negative Negative 08/03/2024 1:30 PM CERTIFIED MASSAGE THERAPIST [facility] Specific [place] UA 1.013 1.005 - 1.030 08/03/2024 1:30 PM CERTIFIED MASSAGE THERAPIST [facility] Blood UA Negative Negative 08/03/2024 1:30 PM CERTIFIED MASSAGE THERAPIST [facility] pH UA 7.5 5.0 - 9.0 pH 08/03/2024 1:30 PM CERTIFIED MASSAGE THERAPIST [facility] Protein UA Negative Negative 08/03/2024 1:30 PM CERTIFIED MASSAGE THERAPIST [facility] Urobilinogen UA Normal Normal mg/dL 08/03/2024 1:30 PM CERTIFIED MASSAGE THERAPIST [facility] Nitrite UA Negative Negative 08/03/2024 1:30 PM CERTIFIED MASSAGE THERAPIST [facility] Leukocyte UA 75 JAQUI/uL(A) Negative 08/03/2024 1:30 PM CERTIFIED MASSAGE THERAPIST [facility] RBC UA 0-2 0 - 5 # /hpf 08/03/2024 1:30 PM CERTIFIED MASSAGE THERAPIST [facility] WBC UA 6-10(A) 0 - 5 # /hpf 08/03/2024 1:30 PM CERTIFIED MASSAGE THERAPIST [facility] Bacteria UA Trace(A) None Seen 08/03/2024 1:30 PM CERTIFIED MASSAGE THERAPIST [facility] Squamous Epithelial Cells 0-2 0 - 5 /hpf 08/03/2024 1:30 PM CERTIFIED MASSAGE THERAPIST [facility] Budding Yeast Few(A) None seen /hpf 08/03/2024 1:30 PM CERTIFIED MASSAGE THERAPIST [facility] Urine URINE SPECIMEN OBTAINED BY CLEAN CATCH PROCEDURE / Unknown Collection / Unknown 08/03/2024 12:49 PM CERTIFIED MASSAGE THERAPIST 08/03/2024 12:53 PM CERTIFIED MASSAGE THERAPIST Narrative [facility] - 08/03/2024 1:30 PM CERTIFIED MASSAGE THERAPIST Pete Olmos MD LAB - URINALYSIS ORD ERABLES [facility] [address] [place] [address] * XR Lumbar Spine 2 or 3Vw (08/02/2024 2:10 PM CERTIFIED MASSAGE THERAPIST) Anatomical Region Laterality Modality Spine Computed Radiogr aphy 08/02/2024 2:26 PM CERTIFIED MASSAGE THERAPIST Narrative 08/02/2024 2:29 PM CERTIFIED MASSAGE THERAPIST EXAM: XR LUMBAR SPINE 2 OR 3VW [...] PTH INTACT W/O CALCIUM (08/02/2024 3:19 AM CERTIFIED MASSAGE THERAPIST) PTH Intact 275.2(H) 8.7 - 77.1 pg/mL 08/02/2024 4:05 AM [facility] Blood BLOOD SPECIMEN / Unknown Venipuncture / Unknown 08/02/2024 3:19 AM CERTIFIED MASSAGE THERAPIST 08/02/2024 3:[address] [facility] Miguel Angel Mccain MD LAB - CHEMISTRY AIDEN KEVIN [facility] Organization Address City/State/ZIP Co de Phone Number [facility] [address] [place] [address] * (ABNORMAL) RENAL FUNCTION PANEL (08/02/2024 3:19 AM CERTIFIED MASSAGE THERAPIST) Only the most recent of3 resultswithin the time period is included. Glucose 112(H) 70 - 99 mg/dL 08/02/2024 4:06 AM [facility] Sodium 140 136 - 145 mmol/L 08/02/2024 4:06 AM [facility] Potassium 3.1(L) 3.5 - 5.1 mmol/L 08/02/2024 4:06 AM [facility] Chloride 103 98 - 107 mmol/L 08/02/2024 4:06 AM [facility] CO2 28 22 - 29 mmol/L 08/02/2024 4:06 AM [facility] Calcium 5.8(LL) 8.4 - 10.4 mg/dL 08/02/2024 4:06 AM [facility] Anion Gap 9 6 - 16 mmol/L 08/02/2024 4:06 AM [facility] BUN 4(L) 7 - 26 mg/dL 08/02/2024 4:06 AM [facility] Creatinine 0.75 0.57 - 1.11 mg/dL 08/02/2024 4:06 AM [facility] Albumin 2.4(L) 3.4 - 5.0 gm/dL 08/02/2024 4:06 AM [facility] Phosphorus 2.4(L) 2.5 - 4.5 mg/dL 08/02/2024 4:06 AM [facility] eGFR by CKD-EPI 88(L) >=90 mL/min/1.7 3 m2 08/02/2024 4:06 AM [facility] Blood BLOOD SPECIMEN / Unknown Venipuncture / Unknown 08/02/2024 3:19 AM CERTIFIED MASSAGE THERAPIST 08/02/2024 3:30 AM CERTIFIED MASSAGE THERAPIST Miguel Angel Mccain MD LAB - CHEMISTRY AIDEN KEVIN Performing Organization Address [facility] de Phone Number [facility] [id number] [place] [address] * (ABNORMAL) CALCIUM BLOOD (08/01/2024 3:41 AM CERTIFIED MASSAGE THERAPIST) Pathologist [facility] Calcium 5.4(LL) 8.4 - 10.4 mg/dL 08/01/2024 4:21 AM CERTIFIED MASSAGE THERAPIST [facility] Blood BLOOD SPECIMEN / Unknown Venipuncture / Unknown 08/01/2024 3:41 AM CERTIFIED MASSAGE THERAPIST 08/01/2024 3:52 AM CERTIFIED MASSAGE THERAPIST Peewee Esquivel DO LAB - CHEMISTRY AIDEN KEVIN Performing Organization Address [facility] de Phone Number [facility] [address] [place] [address] * (ABNORMAL) HGB HCT PANEL (07/31/2024 7:39 AM CERTIFIED MASSAGE THERAPIST) Only the most recent of4 resultswithin the time period is included. Pathologist [facility] Hemoglobin 8.3(L) 11.9 - 15.8 g/dL 07/31/2024 7:47 AM CERTIFIED MASSAGE THERAPIST [facility] Hematocrit 23.7(L) 34.8 - 46.1 % 07/31/2024 7:47 AM CERTIFIED MASSAGE THERAPIST [facility] Blood BLOOD SPECIMEN / Unknown Venipuncture / Unknown 07/31/2024 7:39 AM CERTIFIED MASSAGE THERAPIST 07/31/2024 7:43 AM CERTIFIED MASSAGE THERAPIST Cruz Whitfield MD LAB - HEMATOLOGY OR DERABLES Performing Organization Address [facility] de Phone Number [facility] [address] [place] [address] * TRANSFUSE RED BLOOD CELL LEUKOREDUCED UNIT(S) (07/31/2024 5:59 AM CERTIFIED MASSAGE THERAPIST) Peewee Esquivel DO NURSING - BLOOD PROD TRANSFUSION * PREPARE (CROSSMATCH) RBC UNIT(S), 1 Units (07/31/2024 3:35 AM CERTIFIED MASSAGE THERAPIST) Only the most recent of2 resultswithin the time period is included. Pathologist [facility] Unit Description AS1 LR PRBC [facility] Unit ABO B [facility] Rh POS [facility] Product Number R02 [facility] Donor # [id number] DP C BLOOD BANK Unit Status transfused DP BL OOD BANK Product Code [id number] [facility] Blood Type Barcode 7300 [facility] Expiration Date [id number] D [facility] Blood Bank BLOOD SPECIMEN / Unknown 07/28/2024 8:53 PM CERTIFIED MASSAGE THERAPIST Miguel Angel Mccain MD LAB - BLOOD BANK ORD ERABLES Performing Organization Address [facility] de Phone Number [facility] [address] [place] [address] * (ABNORMAL) VITAMIN D 25-HYDROXY (07/31/2024 2:15 AM CERTIFIED MASSAGE THERAPIST) Pathologist [facility] Vitamin D, 25 Hydroxy 12.3(L) 30 - 80 ng/mL 07/31/2024 3:23 AM CERTIFIED MASSAGE THERAPIST [facility] Blood BLOOD SPECIMEN / Unknown Venipuncture / Unknown 07/31/2024 2:15 AM CERTIFIED MASSAGE THERAPIST 07/31/2024 2:22 AM CERTIFIED MASSAGE THERAPIST Narrative [facility] - 07/31/2024 3:23 AM CERTIFIED MASSAGE THERAPIST Vitamin D Status: Deficiency <20 ng/mL Insufficiency 20-30 ng/mL Sufficiency 30-100 ng/mL Toxicity >100 ng/mL Miguel Angel Mccain MD LAB - CHEMISTRY ORDE RABUTE Performing Organization Address [facility] Co de Phone Number [facility] [address] [place] [address] * (ABNORMAL) FOLATE (07/31/2024 2:15 AM CERTIFIED MASSAGE THERAPIST) Pathologist [facility] Folate 5.2(L) 7.0 - 31.4 ng/mL 07/31/2024 3:23 AM CERTIFIED MASSAGE THERAPIST [facility] Blood BLOOD SPECIMEN / Unknown Venipuncture / Unknown 07/31/2024 2:15 AM CERTIFIED MASSAGE THERAPIST 07/31/2024 2:22 AM CERTIFIED MASSAGE THERAPIST Miguel Angel Mccain MD LAB - CHEMISTRY AIDEN KEVIN Performing Organization Address [facility] de Phone Number [facility] [id number] [place] [address] * (ABNORMAL) VITAMIN B12 (07/31/2024 2:15 AM CERTIFIED MASSAGE THERAPIST) Pathologist [facility] Vitamin B12 >2,000(H) 213 - 816 pg/mL 07/31/2024 3:27 AM CERTIFIED MASSAGE THERAPIST [facility] Blood BLOOD SPECIMEN / Unknown Venipuncture / Unknown 07/31/2024 2:15 AM CERTIFIED MASSAGE THERAPIST 07/31/2024 2:22 AM CERTIFIED MASSAGE THERAPIST Miguel Angel Mccain MD LAB - CHEMISTRY AIDEN KEVIN Performing Organization Address [facility] de Phone Number [facility] [address] [place] [phone] * (ABNORMAL) IRON + TRANSFERRIN PANEL (07/31/2024 2:15 AM CERTIFIED MASSAGE THERAPIST) Pathologist [facility] Iron 84 40 - 150 ug/dL 07/31/2024 2:55 AM CERTIFIED MASSAGE THERAPIST [facility] Transferrin 123(L) 174 - 382 mg/dL 07/31/2024 2:55 AM CERTIFIED MASSAGE THERAPIST [facility] TIBC Calculated 154(L) 240 - 450 ug/dL 07/31/2024 2:55 AM CERTIFIED MASSAGE THERAPIST [facility] Iron Saturation % 55(H) 20 - 50 % 07/31/2024 2:55 AM CERTIFIED MASSAGE THERAPIST [facility] Blood BLOOD SPECIMEN / Unknown Venipuncture / Unknown 07/31/2024 2:15 AM CERTIFIED MASSAGE THERAPIST 07/31/2024 2:22 AM CERTIFIED MASSAGE THERAPIST Miguel Angel Mccain MD LAB - CHEMISTRY AIDEN KEVIN Performing Organization Address [facility] de Phone Number [facility] [address] [place] [address] * TRANSFUSE RED BLOOD CELL LEUKOREDUCED UNIT(S) (07/30/2024 7:41 AM CERTIFIED MASSAGE THERAPIST) Peewee Esquivel DO NURSING - BLOOD PROD TRANSFUSION * BLOOD TYPE VERIFICATION (07/30/2024 2:06 AM CERTIFIED MASSAGE THERAPIST) ABO Rh B POS 07/30/2024 4:2 5 AM CERTIFIED MASSAGE THERAPIST [facility] Blood Bank BLOOD SPECIMEN / Unknown Venipuncture / Unknown 07/30/2024 2:06 AM CERTIFIED MASSAGE THERAPIST 07/30/2024 3:11 AM CERTIFIED MASSAGE THERAPIST Yi Grier MD LAB - BLOOD BANK ORD ERABLES Performing Organization Address City/[facility] Co de Phone Number [facility] [id number] [place] [address] * (ABNORMAL) PT-INR (07/30/2024 2:06 AM CERTIFIED MASSAGE THERAPIST) Only the most recent of2 resultswithin the time period is included. Pathologist [facility] PT 19.8(H) 12.1 - 14.8 sec 07/30/2024 3:12 AM CERTIFIED MASSAGE THERAPIST [facility] Comment:This result represen ts a significant difference from this patient's most recent previous value. Clinical correlation is therefore recommended. INR 1.7(H) 0.9 - 1.1 07/30/2024 3:12 AM CERTIFIED MASSAGE THERAPIST [facility] Blood BLOOD SPECIMEN / Unknown Venipuncture / Unknown 07/30/2024 2:06 AM CERTIFIED MASSAGE THERAPIST 07/30/2024 2:27 AM CERTIFIED MASSAGE THERAPIST Narrative [facility] - 07/30/2024 3:12 AM CERTIFIED MASSAGE THERAPIST Conventional Warfarin Anticoagulant Therapy: INR Reference Range: 2.0-3.0 Intensive Warfarin Anticoagulant Therapy: INR Reference Range: 2.5-3.5 Yi Grier MD LAB - COAGULATION OR DERABLES Performing Organization Address City/[facility]/ZIP Co de Phone Number [facility] [address] [place] [address] * (ABNORMAL) CBC W/O DIFFERENTIAL (07/30/2024 2:06 AM CERTIFIED MASSAGE THERAPIST) Only the most recent of3 resultswithin the time period is included. WBC 12.5(H) 4.0 - 10.7 x10E9/L 07/30/2024 2:30 AM [facility] RBC Count 2.06(L) 3.90 - 5.20 x10E12/L 07/30/2024 2:30 AM [facility] Hemoglobin 6.4(L) 11.9 - 15.8 g/dL 07/30/2024 2:30 AM [facility] Hematocrit 18.7(L) 34.8 - 46.1 % 07/30/2024 2:30 AM [facility] MCV 90.8 80.0 - 98.0 fL 07/30/2024 2:30 AM [facility] MCH 31.1 26.7 - 33.6 pg 07/30/2024 2:30 AM [facility] MCHC 34.2 31.7 - 36.3 g/dL 07/30/2024 2:30 AM [facility] RDW-CV 18.1(H) 11.3 - 14.8 % 07/30/2024 2:30 AM [facility] Platelet Count 161 150 - 420 x10E9/L 07/30/2024 2:30 AM [facility] MPV 10.0 7.8 - 11.4 fL 07/30/2024 2:30 AM [facility] Blood BLOOD SPECIMEN / Unknown Venipuncture / Unknown 07/30/2024 2:06 AM CERTIFIED MASSAGE THERAPIST 07/30/2024 2:27 AM CERTIFIED MASSAGE THERAPIST Yi Grier MD LAB - HEMATOLOGY ORD ERABLES [facility] [address] [place] [address] * US ABDOMEN LIMITED (RUQ) (07/29/2024 2:29 PM CERTIFIED MASSAGE THERAPIST) Anatomical Region Laterality Modality Abdomen Ultrasound 07/29/2024 3:34 PM CERTIFIED MASSAGE THERAPIST Impressions 07/30/2024 10:05 AM CERTIFIED MASSAGE THERAPIST IMPRESSION: 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 Hepatic steatosis with a mass right lobe most consistent with focal fatty sparing. Lack of ability to compare to the outside images result in decreased sensitivity. > Interpreting Provider: Kameron Sprague MD on 07/30/2024 10:05 AM Narrative 07/30/2024 10:05 AM CERTIFIED MASSAGE THERAPIST PROCEDURE: US ABDOMEN LIMITED, DATE/TIME OF EXAM: 07/29/2024 2:29 PM, LOCATION [facility] INDICATION: K92.1: Melena ADDITIONAL CLINICAL [...] DATE/TIME OF EXAM: 07/29/2024 2:29 PM, LOCATION [facility] INDICATION: K92.1: Melena ADDITIONAL CLINICAL [...] MD ORDERABLES * EGD (07/29/2024 6:57 AM CERTIFIED MASSAGE THERAPIST) Report Endoscopy POC _ Patient Name: Sarahy Rodriguez Procedure Date: 07/29/2024 6:57 AM Date of : 1960 Admit Type: Inpatient Age: 64 Gender: Female Attending MD: Cathleen Estrada MD, [id number] _ Procedure: Upper GI endoscopy Indications: Melena [...] GI notes Procedure Code(s): --- Professional --- 53655, Esophagogastroduoden oscopy, flexible, transoral; diagnostic, including collection of specimen(s) by brushing or washing, when performed (separate procedure) --- Technical --- 20478, Esophagogastroduoden oscopy, flexible, transoral; diagnostic, including collection [...] K92.1, Melena (includes Hematochezia) CPT copyright 202 [employer]. All rights reserved. The codes documented in this report are preliminary and upon bottle labeler review may be revised to meet current compliance requirements. Cathleen Estrada MD 07/29/2024 9:00:40 AM Number of Addenda: 0 Note Initiated On: 07/29/2024 6:57 AM [facility] 07/29/2024 6:57 AM CERTIFIED MASSAGE THERAPIST Narrative Procedure Note Cathleen Estrada MD - [...] GI PROCEDURE ORDERAB LES Performing Organization Address [facility] Co de Phone Number [facility] [place] [place] [address] * CULTURE BLOOD (07/28/2024 10:03 PM CERTIFIED MASSAGE THERAPIST) Only the most recent of2 resultswithin the time period is included. Culture No growth day 5 LINO 08/03/2024 1:30 [address] M[address]AGE THER[address] [facility] MICROBIOLOGY Blood PERIPHERAL BLOOD / Unknown Venipuncture / Unknown 07/28/2024 10:03 PM CERTIFIED MASSAGE THERAPIST 07/28/2024 10:07 PM CERTIFIED MASSAGE THERAPIST Fabio Santos MD LAB - MICROBIOLOGY O RDERABLES Performing Organization Address [facility] Co de Phone Number [facility] MICRO[facility]OLOG[facility] [address] [place] [address], [facility] [phone] * TYPE + SCREEN PANEL (07/28/2024 6:52 PM CERTIFIED MASSAGE THERAPIST) ABO Rh B POS 07/28/2024 9:52 PM CERTIFIED MASSAGE THERAPIST [facility] Comment:No history; collect retype. Antibody Screen NEG 9:52 PM CERTIFIED MASSAGE THERAPIST [facility] Blood Bank BLOOD SPECIMEN / Unknown Venipuncture / Unknown 07/28/2024 6:52 PM CERTIFIED MASSAGE THERAPIST 07/28/2024 8:53 PM CERTIFIED MASSAGE THERAPIST Fabio Santos MD LAB - BLOOD BANK ORD ERABLES Performing Organization Address [facility] Co de Phone Number [facility] [address] [place] [address], [facility] [phone] from Last 3 Months Advance Directives Documents on File Type Date Recorded Patient Law Clerk Expl anation Adv Directive/Living Will/POA 08/08/2024 10:51 PM Adv Directive/Living Will/POA 08/01/2024 8:23 PM Adv Directive/Living Will/POA 07/31/2024 7:48 PM * Full Code (Latest Code Status on File) Date Activated Date Inactivated Comments 07/28/2024 3:11 PM 08/07/2024 5:49 PM Care Teams Loan Collector Relationship Specialty Start Date End Date Priyank Zepeda MD [address] [place] [address] PCP - General 02/23/22
--- OUTSIDE RECORDS SUMMARY | 2024-08-24 22:35 | XMS_ITS | Encounter Summary ---
Author Organization [facility] Address [address] [place] [address] Phone Care Team Providers Care Switchboard Wirer Name Role Phone Priyank Zepeda MD Primary Care Provider [phone] Encounter Details Date Type Department Care Team (Late Contact Info) Description 01/03/2020 Orders Only [facility] [address] [place] [phone] Kristofer Ortiz MD [address] [place] [address] Chronic kidney disease stage 3 [...] Description 10/22/2024 10:45 AM CDT Office Visit [facility] [address] [place] [phone] Kristofer Ortiz MD [address] [place] [address] [address] documented as of this encounter Visit Diagnoses Diagnosis Chronic kidney disease stage 3 (HCC) documented in this encounter Care Teams Switchboard Wirer Relationship Specialty Start Date End Date Priyank Zepeda MD [address] [place] [address] PCP - General Internal Medicine 05/17/19 documented as of this encounter
[2024-08-24 22:51] LABS: Occult Blood Negative (Negative)
[2024-08-24 22:53] LABS: Basophils Absolute Auto 0.03 K/mm3 (0.00-0.10); Basophils Percent Auto 0.5 % (0.0-1.0); Eosinophils Absolute Auto 0.07 K/mm3 (0.02-0.50); Eosinophils Percent Auto 1.2 % (1.0-6.0); Hematocrit 32.9 % (35.0-42.0); Hemoglobin 10.4 g/dL (11.7-13.8); Immature Granulocyte Absolute 0.03 K/mm3 (0.00-0.00); Immature Granulocyte Percent A 0.5 % (0.0-0.0); Lymphocytes Absolute Auto 0.58 K/mm3 (1.10-4.50); Lymphocytes Percent Auto 9.8 % (18.0-42.0); Mean Corpuscular HGB Conc 31.6 g/dL (32-36); Mean Corpuscular Hemoglobin 30.8 pg (27.0-31.0); Mean Corpuscular Volume 97.3 fL (78.0-102.0); Mean Platelet Volume 9.1 fl (9.2-11.8); Monocytes Absolute Auto 0.48 K/mm3 (0.10-0.90); Monocytes Percent Auto 8.1 % (2.0-11.0); Neutrophils Absolute Auto 4.72 K/mm3 (1.70-7.20); Neutrophils Percent Auto 79.9 % (50.0-70.0); Platelet Count Result 227 K/mm3 (150-420); Red Blood Count 3.38 M/mm3 (4.20-5.40); Red Cell Distribution Width 17.6 % (11.6-14.4); White Blood Count 5.9 K/mm3 (4.8-10.8)
[2024-08-24] MEDS: FUROSEMIDE INJ 40 MG/4 ML VIAL IV PUSH (22:56)
[2024-08-24 23:09] LABS: INR 1.2; Partial Thromboplastin Time 30.8 Sec (23.9-30.70); Prothrombin Time 13.1 Seconds (9.50-12.1)
[2024-08-24 23:12] LABS: Lactic Acid Reflex 0.9 mmol/L (0.4-2.0)
[2024-08-24 23:16] LABS: Alanine Aminotransferase 40 U/L (14-59); Albumin Level 2.4 g/dL (3.4-5.0); Alkaline Phosphatase 195 U/L (46-116); Anion Gap 14 mmol/L (4-12); Aspartate Amino Transferase 34 U/L (15-37); Bilirubin,Total 0.5 mg/dL (0.00-1.00); Blood Urea Nitrogen 13 mg/dL (7-18); Calcium 7.9 mg/dL (8.5-10.1); Carbon Dioxide 16 mmol/L (21-32); Chloride 111 mmol/L (98-108); Estimated CRCL calculation 53 ml/min; Estimated Glomerular Filt Rate 48; Lipase 36 U/L (16-77); NT Pro B Type Natriuretic Pept 631 pg/mL (0-125); Potassium 4.2 mmol/L (3.5-5.1); Sodium 141 mmol/L (136-145); Total Protein 6.5 g/dL (6.4-8.2)
[2024-08-24 23:22] LABS: Glucose 95 mg/dL (70-99); Osmolality Calculated 292 mOsm/kg (285-295)
[2024-08-24 23:36] VITALS: BP 127/75; PULSE 74; RESP 18; TEMP 36.4; O2SAT 98
== END 2024-08-24 23:37 | disposition home or self-care (01) ==
PROVIDERS: Emergency Provider Emergency Medicine; PCP Internal Medicine
DX: R60.9 Edema, unspecified (principal); I12.9 Hypertensive chronic kidney disease with stage 1 through stage 4 chronic kidney disease, or unspecified chronic kidney disease; N18.9 Chronic kidney disease, unspecified; E03.9 Hypothyroidism, unspecified; Z79.01 Long term (current) use of anticoagulants
CPT/HCPCS: 36415; 80053; 82272; 83605; 83690; 83880; 85025; 85610; 85730; 96374; 99284; J1940

== ENCOUNTER 2024-09-06 14:11 | Outpatient (CLI) | payer OTHER, SELFPAY ==
--- NOTE | ~2024-09-06 | CT_ITS ---
CLINICAL INDICATION: Hematuria COMPARISON: 07/28/2024. TECHNIQUE: Multiple contiguous axial images of the abdomen and pelvis were performed both prior to an d following the administration of with 100 mL Omnipaque-350 intravenous contrast The dose-length product (DLP) was 2230.90 mGy-cm. Automated exposure control and iterative reconstruction technique were employed. FINDINGS/OBSERVATIONS: Visualized lower thorax: The bilateral lung bases are clear. The heart is of normal size, without pericardial effusion. Small hiatal hernia is present. Liver: The liver demonstrates heterogeneous enhancement. Cavernous transformation of vein is present, unchanged from prior. Gallbladder and biliary system: The gallbladder is surgically absent. Pancreas: Fatty atrophy of the pancreas without ductal dilatation. Spleen: The spleen enhances homogeneously and remains enlarged measuring 15 cm in longitudinal dimension. Kidneys: Bulky calcifications within the bilateral kidneys, unchanged from prior. Subcentimeter rounded foci of fluid attenuation within the bilateral kidneys, too small to characteri ze but statistically representing cysts. The remainder of the bilateral kidneys otherwise enhance symmetrically without hydronephrosis. Adrenal glands: Unremarkable. Gastrointestinal tract: Postoperative change within the upper abdomen. Retained oral contrast within the colon, from prior evaluation. Vasculature: Cavernous transformation of portal vein, as detailed above. Lymph nodes: No pathologically enlarged or morphologically suspicious lymph nodes within the retroperitoneum or at the root of the mesentery. Pelvic structures: Intra-abdominal ascites, increased from prior. The bladder is distended, and otherwise unremarkable. No abnormal contrast enhancement within the bladder. The uterus is anteverted and anteflexed and somewhat atrophic. Body wall and musculoskeletal: Bowel containing, nonobstructing umbilical hernia, unchanged from prior. Compression of the superior endplate of T12 and L1, demonstrating progression from prior examination. The remainder of the vertebral bodies are unremarkable. IMPRESSION: No acute findings within the abdomen or pelvis, as detailed above. No abnormal contrast enhancement is appreciated within the bladder or along the course of the bilater al ureters. Cavernous transformation of the portal vein. Moderate intra-abdominal ascites. Significant splenomegaly. Progression of the superior compression of the vertebral bodies of T12 and L1. Reviewed, dictated and finalized at location A. IMPRESSION: No acute findings within the abdomen or pelvis, as detailed above. No abnormal contrast enhancement is appreciated within the bladder or along the course of the bilateral ureters. Cavernous transformation of the portal vein. Moderate intra-abdominal ascites. Significant splenomegaly. Progression of the superior compression of the vertebral bodies of T12 and L1.
--- OUTSIDE RECORDS SUMMARY | 2024-09-06 14:18 | XMS_ITS ---
Author Organization Unknown Address [address] [place] [phone] Phone Care Team Providers Care Chief Radiologic Technologist Name Role Phone GARFIELD Ashby Attending Unavailable [...] em Smoking History Never smoker (Never Smoked) [id number] SNOMED CT Sex Female Vital Signs Vital Sign Value Unit [place] Value [place] Unit Date/Time Recent/Initial? Code Code System Body Mass Index 30.45 kg/m2 11/13/2023 14:43 Initial 32919 -5 INC Systolic Blood Pressure 136 mm[Hg] 12/14/2023 08:17 Initial 8480- 6 LOINC Diastolic Blood Pressure 78 mm[Hg] 12/14/2023 08:17 Initial 8462- 4 INC Body Surface Area 1.95 m2 11/13/2023 14:43 Initial 3140- 1 LOINC Height 165.100 0 cm 65.00 in 11/13/2023 14:43 Initial 8302- 2 INC O2 Saturation 99 % 2023 08:17 Initial 35700 -5 INC Pulse 57.0 /min 12/14/2023 08:17 Initial 8867- 4 LOINC Respiration 20 /min 12/14/19 08:17 Initial 9279- 1 LOINC Temperature 36.2 Kait 97.1 F 12/14/19 24 08:17 Initial 8310- 5 LOINC Weight 83.01 kg 183.00 lbs 11/13/2023 14:43 Initial 49303 -7 [facility] Medications Medication Start Date End Date Route Frequency Dose Code Code System Medication Instructions Home Meds Vitamin B12 1000 MCG Sublingual Tablet 12/14/2023 Unknown SUBLINGUAL ONCE A DAY [address] 1000 MCG SUBLINGUAL ONCE A DAY Tums Extra Strength 750 MG Oral Tablet, Chewable 12/14/2023 Unknown ORAL NEEDED 750 MG 4434419 RxNorm TAKE 750 MG ORAL NEEDED Amitriptyline 10MG Oral Tablet 12/14/2023 Unknown ORAL TWICE A DAY 10 MILLIGRA MS 366592 RxNorm TAKE 10 MILLIGRAMS ORAL TWICE A DAY Calcitriol 0.5MCG Oral Capsule, Liquid Filled 12/14/2023 Unknown ORAL TWICE A DAY 2 CAPSULE 451114 RxNorm TAKE 2 CAPSULE ORAL TWICE A DAY Calcium Citrate Powder 12/14/[address]TE NOT APPLICABLE 1 unit(s) RxNorm 1 EACH ROUTE NOT APPLICABLE Eliquis 5MG Oral Tablet 12/14/2023 12/14/19 24 ORAL TWICE A DAY 5 MILLIGRA MS 6781963 RxNorm TAKE 5 MILLIGRAMS ORAL TWICE A DAY FLUoxetine 20MG/5ML Oral Solution 12/14/2023 Unknown ORAL TWICE A DAY 029777 RxNorm TAKE mL ORAL TWICE A DAY Iron 325MG Oral Tablet 12/14/2023 Unknown ORAL THREE TIMES A DAY 325 MILLIGRA MS 778884 RxNorm TAKE 325 MILLIGRAMS ORAL THREE TIMES A DAY Levothyroxine 125MCG Oral Tablet 12/14/2023 Unknown ORAL ONCE A DAY 0.5 TABLET 386710 RxNorm TAKE 0.5 TABLET ORAL ONCE A DAY Loratadine 10MG Oral Tablet 12/14/2023 Unknown ORAL NEEDED 10 MILLIGRA MS 440771 RxNorm TAKE 10 MILLIGRAMS ORAL NEEDED Metoprolol Succinate 50MG Oral Tablet, Extended Release 12/14/2023 Unknown ORAL ONCE A DAY 50 MILLIGRA MS 451171 RxNorm TAKE 50 MILLIGRAMS ORAL ONCE A DAY Potassium Chloride 20MEQ Oral Tablet, Extended Release 12/14/2023 Unknown ORAL TWICE A DAY 20 MEQ 3571614 RxNorm TAKE 20 MEQ ORAL TWICE A DAY Sodium Bicarbonate 650MG Oral Tablet 12/14/2023 Unknown ORAL THREE TIMES A DAY 650 MILLIGRA MS 586652 RxNorm TAKE 650 MILLIGRAMS ORAL THREE TIMES A DAY Tab-A-Ezio [id number] U-6MCG Oral Tablet 12/14/2023 Unknown ORAL ONCE A DAY 1 unit(s) 383233 RxNorm TAKE 1 EACH ORAL ONCE A [...] Code Syste m Vocal cord nodule completed 09111783 SNOMEDC T Fracture of tibia completed 16711697 SNOMEDC T Volvulus completed 1477357 SNOMEDCT APPENDECTOMY completed 34368239 SNOMEDCT Removal of kidney stone completed 7719887 S NOMEDCT Anesthesia for lower intesti nal endoscopic procedures, endoscope introduce 12/14/2023 completed 83064 CPT Gastric bypass completed 482035258 SNOMEDCT History of parathyroidectomy completed 5836297 68344131 SNOMEDCT Colonoscopy, flexible; with biopsy, single or multiple 12/14/2023 completed 14580 CPT Problems Problem Start Date Resolved Date Status Code Code System CHRONIC KIDNEY DISEASE, STAG E 3A active 580009731 SNOMED-CT Allergies and Adverse Reactions Allergy Substance Reaction Severity Start Date Concern Status Code Code System ADHESIVE Itching (SNOMED-CT: 074796896) Active SUCCINYLCHOLINE CHLORIDE HARD TO WAKE UP (SNOMED-CT: null) Active 3565 RxNorm CIPRO REDNESS IV ONLY (SNOMED-CT: null) Mild Active 358421 RxNorm No Known Drug Allergies Active 589701986 SNOMED-CT Plan of Treatment Colonoscopy 12/14/2023 Encounters Encounter Diagnosis Start Date Code Code Sys tem Noninfective gastroenteritis and colitis, unspecified 12/14/2023 SNOMED-CT Personal Care Team Section Performer Name Performer Role Active Date Inactive KIERAN Gilbert PCP - Primary care physician 2024-04-16
--- OUTSIDE RECORDS SUMMARY | 2024-09-06 14:18 | XMS_ITS | Encounter Summary ---
Author Organization [facility] Address [address] [facility] [address] [place] [address] Phone Care Team Providers Care Printed Circuit Boards Pinner Name Role Phone Priyank Zepeda MD Primary Care Provider [phone] Encounter Details Date Type Department Care Team (Late Contact Info) Description 01/03/2020 Orders Only [facility]. [address] [facility] [address] [place] [phone] Kristofer Ortiz MD [address] [facility] [address] [place] [address] Chronic kidney disease stage 3 [...] Description 10/22/2024 10:45 AM CDT Office Visit [facility]. [address] [facility] [address] [place] [phone] Kristofer Ortiz MD [address] [place] [address] [address] documented as of this encounter Visit Diagnoses Diagnosis Chronic kidney disease stage 3 (HCC) documented in this encounter Care Teams Printed Circuit Boards Pinner Relationship Specialty Start Date End Date Priyank Zepeda MD [address] [place] [address] PCP - General Internal Medicine 05/17/19 documented as of this encounter
--- OUTSIDE RECORDS SUMMARY | 2024-09-06 14:18 | XMS_ITS | Encounter Summary ---
Author Organization [facility] Address [address] [place] [address] Phone Care Team Providers Care Visual Merchandising Director Name Role Phone Priyank Zepeda MD Primary Care Provider [phone] Encounter Details Date Type Department Care Team (Late st Contact Info) Description 09/04/2024 [facility] [address] [place] [address] Priyank Zepeda MD [address] [place] [address] Secondary hyperparathyroidism of renal origin (HCC); Vitamin D deficiency, unspecified; Hypothyroidism, unspecified Social History Tobacco Use Types Packs/Day Years [...] Care Team (Late st Contact Info) Description 09/10/2024 2:30 PM CDT Home Care Visit [address] [address] Viola Richard PTA [place] 09/11/2024 1:00 AM CDT [facility] [address] [place] [address] Mary Perez RN [place] 09/11/2024 8:45 AM CDT [facility] [address] [place] [address] Moni Mendoza OT 09/12/2024 1:00 AM CDT Home Care Visit [address] [address] Asia Salazar OTA [place] 09/13/2024 1:30 PM CDT Home Care Visit [address] [address] Viola Richard, OPTION TRADER [place] 09/16/2024 1:00 AM CDT Home Care Visit [address] [address] Eloisa Ruiz, PT Scheduled Orders Name Type Priority Associated Diagnoses Orde r Schedule EXTRA TUBES Lab Routine Secondary hyperparathyroidism of renal origin (HCC) Vitamin D deficiency, unspecified Hypothyroidism, unspecified Ordered: 09/04/2024 EXTRA TUBES Lab Routine Secondary hyperparathyroidism of renal origin (HCC) Vitamin D deficiency, unspecified Hypothyroidism, unspecified Ordered: 09/04/2024 documented as of this encounter Procedures Procedure Name Priority Date/Time Associated Diagnosis Comments VITAMIN D, 25 HYDROXY TOTAL Routine 09/04/2024 4:55 PM CDT Secondary hyperparathyroidism of renal origin (HCC) Vitamin D deficiency, unspecified Hypothyroidism, unspecified CBC WITH AUTO DIFFERENTIAL Routine 09/04/2024 4:55 PM CDT Secondary hyperparathyroidism of renal origin (HCC) Vitamin D deficiency, unspecified Hypothyroidism, unspecified THYROID STIMULATING HORMONE (TSH) Routine 09/04/2024 4:55 PM CDT Secondary hyperparathyroidism of renal origin (HCC) Vitamin D deficiency, unspecified Hypothyroidism, unspecified PHOSPHORUS (PO4) Routine 09/04/2024 4:55 PM CDT Secondary hyperparathyroidism of renal origin (HCC) Vitamin D deficiency, unspecified Hypothyroidism, unspecified CMP (COMPREHENSIVE METABOLIC PANEL) Routine 09/04/2024 4:55 PM CDT Secondary hyperparathyroidism of renal origin (HCC) Vitamin D deficiency, unspecified Hypothyroidism, unspecified COMPLETE BLOOD COUNT (CBC) WITH DIFF Routine 09/04/2024 4:55 PM CDT Secondary hyperparathyroidism of renal origin (HCC) Vitamin D deficiency, unspecified Hypothyroidism, unspecified PREALBUMIN (PAB) Routine 09/04/2024 4:55 PM CDT Secondary hyperparathyroidism of renal origin (HCC) Vitamin D deficiency, unspecified Hypothyroidism, unspecified documented in this encounter Results * (ABNORMAL) CBC WITH AUTO DIFFERENTIAL (09/04/2024 4:55 PM CDT) WBC 4.62 4.00 - 12.00 10(3)/mcL 09/04/2024 6:44 PM CDT [facility] RBC 3.31(L) 3.80 - 5.30 10(6)/mcL 09/04/2024 6:44 PM CDT [facility] HEMOGLOBIN (HGB) 10.2(L) 12.0 - 15.8 g/dL 09/04/2024 6:44 PM CDT [facility] HEMATOCRIT (HCT) 32.3(L) 36.0 - 47.0 % 09/04/2024 6:44 PM CDT [facility] MCV 97.6(H) 82.0 - 96.0 fL 09/04/2024 6:44 PM CDT [facility] MCH 30.8 26.0 - 34.0 pg 09/04/2024 6:44 PM CDT [facility] MCHC 31.6 31.0 - 36.0 g/dL 09/04/2024 6:44 PM CDT [facility] PLATELET COUNT 240 140 - 440 10(3)/mcL 09/04/2024 6:44 PM CDT [facility] RDW 18.8(H) 11.8 - 15.5 % 09/04/2024 6:44 PM CDT [facility] MPV 9.8 9.7 - 12.4 fL 09/04/2024 6:44 PM CDT [facility] NEUTROPHILS 75.4(H) 47.0 - 73.0 % 09/04/2024 6:44 PM CDT [facility] LYMPHOCYTES 11.9(L) 18.0 - 42.0 % 09/04/2024 6:44 PM CDT [facility] MONOCYTES 9.3 4.0 - 12.0 % 09/04/2024 6:44 PM CDT [facility] EOSINOPHILS 2.8 0.0 - 5.0 % 09/04/2024 6:44 PM CDT [facility] BASOPHILS 0.6 0.0 - 1.0 % 09/04/2024 6:44 PM CDT [facility] ABSOLUTE NEUTROPHILS 3.48 1.60 - 7.70 10(3)/mcL 09/04/2024 6:44 PM CDT [facility] ABSOLUTE LYMPHOCYTES 0.55(L) 1.30 - 3.20 10(3)/[facility] 09/04/2024 6:44 PM CDT [facility] ABSOLUTE MONOCYTES 0.43 0.20 - 1.00 10(3)/mcL 09/04/2024 6:44 PM CDT [facility] ABSOLUTE EOSINOPHIL 0.13 0.00 - 0.40 10(3)/mcL 09/04/2024 6:44 PM CDT [facility] ABSOLUTE BASOPHILS 0.03 0.00 - 0.10 10(3)/mcL 09/04/2024 6:44 PM CDT [facility] NRBC PER 100 WBC 0 09/05/19 6:44 PM CDT [facility] RESULTS ARE CONSISTENT WITH PERIPHERAL SMEAR REVIEW Yes 09/04/2024 6:44 PM CDT [facility] RBC MORPHOLOGY CONSISTENT WITH INDICES Yes 09/04/2024 6:44 PM CDT [facility] Blood No Phlebotomy Charged / Unknown 09/04/2024 4:55 PM CDT 09/04/2024 6:06 PM CDT Priyank Zepeda MD HEMATOLOGY ORDERABLES Final R esult [facility] [address] [place] [address] * (ABNORMAL) PREALBUMIN (PAB) (09/04/2024 4:55 PM CDT) PRE ALBUMIN 13(L) 14 - 37 mg/dL 09/05/2024 6:00 PM CDT [facility] Blood No Phlebotomy Charged / Unknown 09/04/2024 4:55 PM CDT 09/04/2024 6:06 PM CDT Priyank Zepeda MD CHEMISTRY ORDERABLES Final Re sult Performing Organization Address City/[facility]/ZIP Co de Phone Number [facility] [address] [place] [address], * VITAMIN D, 25 HYDROXY TOTAL (09/04/2024 4:55 PM CDT) VITAMIN D, 25 HYDROX 19.0 ng/mL 09/04/2024 6:55 PM CDT [facility] Blood No Phlebotomy Charged / Unknown 09/04/2024 4:55 PM CDT 09/04/2024 6:06 PM CDT Narrative [facility] - 09/04/2024 6:55 PM CDT Published reference ranges for Vitamin D vary depending on time and place and method of testing, and on patient's age, sex, ethnicity and levels of other measured analytes such as parathormone, calcium and phosphorus. The result should be evaluated in conjunction with clinical findings and suspicions. [place] [employer] and [employer]ocrine Clinical Practice Guidelines: Status Vitamin D levels (ng/mL) Deficient <=20 At risk of inadequacy 21-29 Sufficient 30-100 Centers of Disease Control and Prevention Guidelines: Status Vitamin D levels (ng/mL) Deficient <13 At risk of inadequacy 13-19 Sufficient 20-50 Possibly harmful >50 References: [place] [employer], 2010 Dietary reference intakes for calcium and vitamin D. [place]: The National Academies Press. Yo M, Blayne N, Sara LEES, et al., Evaluation, treatment, and prevention of Vitamin D deficiency: an Endocrinology Clinical Practice Guideline. JCEM 2011 96: 7 2891-5592. Kiet Bailey, Dario Cotton, Yemi D, et al., Vitamin D Status: [place], 2729-1609, [facility] data brief, no. 59, MD Lance: [facility] Statistics. 2011. Priyank Zepeda MD CHEMISTRY ORDERABLES Final Re sult Performing Organization Address City/[facility]/ZIP Co de Phone Number [facility] [place] [address] * (ABNORMAL) THYROID STIMULATING HORMONE (TSH) (09/04/2024 4:55 PM CDT) TSH 9.593(H) 0.300 - 5.000 mIU/L 09/04/2024 6:56 PM CDT [facility] Blood No Phlebotomy Charged / Unknown 09/04/2024 4:55 PM CDT 09/04/2024 6:06 PM CDT Priyank Zepeda MD CHEMISTRY ORDERABLES Final Re sult Performing Organization Address City/[facility]/ZIP Co de Phone Number [facility] [place] [address] * (ABNORMAL) PHOSPHORUS (PO4) (09/04/2024 4:55 PM CDT) PHOSPHORUS 2.3(L) 2.5 - 4.5 mg/dL 09/04/2024 6:39 PM CDT [facility] Blood No Phlebotomy Charged / Unknown 09/04/2024 4:55 PM CDT 09/04/2024 6:06 PM CDT Priyank Zepeda MD CHEMISTRY ORDERABLES Final Re sult [facility] [address] [place] [address] * (ABNORMAL) CMP (COMPREHENSIVE METABOLIC PANEL) (09/04/2024 4:55 PM CDT) SODIUM 143 136 - 145 mmol/L 09/04/2024 6:39 PM CDT [facility] POTASSIUM 4.0 3.5 - 5.1 mmol/L 09/04/2024 6:39 PM CDT [facility] CHLORIDE 114(H) 98 - 107 mmol/L 09/04/2024 6:39 PM CDT [facility] CO2, VENOUS 23 22 - 30 mmol/L 09/04/2024 6:39 PM CDT [facility] ANION GAP 10.0 <18.0 mmol/L 09/04/2024 6:39 PM CDT [facility] GLUCOSE 87 70 - 99 mg/dL 09/04/2024 6:39 PM CDT [facility] BUN 10 10 - 20 mg/dL 09/04/2024 6:39 PM CDT [facility] CREATININE, BLOOD 0.77 0.60 - 1.00 mg/dL 09/04/2024 6:39 PM CDT [facility] BUN/CREATININE RATIO 13 12 - 20 ratio 09/04/2024 6:39 PM CDT [facility] TOTAL PROTEIN 6.8 6.0 - 8.0 g/dL 09/04/2024 6:39 PM CDT [facility] ALBUMIN 2.7(L) 3.5 - 5.0 g/dL 09/04/2024 6:39 PM CDT [facility] A/G RATIO 0.7(L) 1.0 - 2.2 09/04/2024 6:39 PM CDT [facility] CALCIUM 8.2(L) 8.7 - 10.5 mg/dL 09/04/2024 6:39 PM CDT [facility] T BILI 0.4 0.2 - 1.2 mg/dL 09/04/2024 6:39 PM CDT [facility] SGOT (AST) 52(H) <43 U/L 09/04/2024 6:39 PM CDT [facility] SGPT (ALT) 37 <56 U/L 09/04/2024 6:39 PM CDT [facility] ALKALINE PHOSPHATASE 137 40 - 150 U/L 09/04/2024 6:39 PM CDT [facility] GFR, ESTIMATED >60 >=60 09/04/2024 6:39 PM CDT [facility] Comment: Creatinine Clearance is the preferred criteria for selecting drug dose adjustments in renally impaired patients. The GFR is provided as additional pertinent clinical information. GFR is reported in mL/min/1.73 sq m. Calculation based on the Chronic Kidney Disease Epidemiology Collaboration (CKD- EPI) equation refit without adjustment for race. GFR, EST. >60 >=60 025 6:39 PM CDT [facility] GFR, EST. NONAFRICAN >60 >=60 09/04/2024 6:39 PM CDT [facility] Blood No Phlebotomy Charged / Unknown 09/04/2024 4:55 PM CDT 09/04/2024 6:06 PM CDT us Priyank Zepeda MD CHEMISTRY ORDERABLES Final Re sult [facility] [place] [address] documented in this encounter Visit Diagnoses Diagnosis Secondary hyperparathyroidism of renal origin (HCC) Secondary hyperparathyroidism (of renal origin) Vitamin D deficiency, unspecified Hypothyroidism, unspecified documented in this encounter Care Teams Visual Merchandising Director Relationship Specialty Start Date End Date Priyank Zepeda MD [address] [place] [address] PCP - General Internal Medicine 08/08/24 documented as of this encounter
--- OUTSIDE RECORDS SUMMARY | 2024-09-06 14:18 | XMS_ITS | Encounter Summary ---
Author Organization [facility] Address [address] [place] [address] Phone Care Team Providers Care Fiscal Accounting Clerk Name Role Phone Priyank Valdez MD Primary Care Provider [phone] Reason for Visit * Auth/Cert (Routine) Specialty Diagnoses / Procedures Referred By Sejal t Referred To Contact Referral ID Status Reason Start Date Expiration Date Visits Re quested Visits Authorized [id number] 1 8 Encounter Details Date Type Department Care Team (Late st Contact Info) Description 09/06/2024 10:00 AM CDT [facility] [address] [place] [address] Asia Salazar OTA [place] OT - HOME VISIT Social History Tobacco [...] Sign Reading Time Taken Comments Blood Pressure 110/75 09/06/2024 11:08 AM CDT Pulse 88 09/06/2024 11:08 AM CDT Temperature 36.3 C (97.3 F) 09/06/2024 11:08 AM CDT Respiratory Rate 18 09/06/2024 11:08 AM CDT Oxygen Saturation 98% 09/06/2024 11:08 AM CDT Inhaled Oxygen Concentration - - Weight 81.3 kg (179 lb 2 oz) 09/06/2024 11:08 AM CDT Height - - Body Mass Index 29.81 08/16/2024 1:33 PM CDT documented in this encounter Plan of Treatment Upcoming Encounters Date Type Department Care Team (Late st Contact Info) Description 09/10/2024 2:30 PM CDT Home Care Visit [address] [address] Viola Richard, [place]UM [place] 09/11/2024 1:00 AM CDT Home Care Visit [address] [address] Mary Perez RN [place] 09/11/2024 8:45 AM CDT Home Care Visit [address] [address] Moni Mendoza OT 09/12/2024 1:00 AM CDT Home Care Visit [address] [address] Asia Salazar OTA [place] 09/13/2024 1:30 PM CDT Home Care Visit [address] [address] Viola Richard, MUSEUM GUIDE [place] 09/16/2024 1:00 AM CDT Home Care Visit [address] [address] Eloisa Ruiz, PT documented as of this encounter Visit Diagnoses Not on filedocumented in this encounter Home Health Visit - Care Plan Visit Details Visit Type -OT - HOME VISIT Discipline -Occupational Therapy Problems Problem Description Start Date Status Goals Interve ntions ALL HH VITAL SIGN PARAMETERS Disciplines: All Home Care 08/13/2024 Active - 1 problem intervention scheduled/document ed in this visit OCCUPATIONAL THERAPY EVALUATION ORDER (O) Disciplines: Occupational Therapy Occupational Therapy General Order 08/16/2024 Active 1 goal linked to scheduled/documen lexis intervention 1 goal intervention scheduled/document ed in this visit OT COMPREHENSIVE Disciplines: Occupational Therapy 08/16/2024 Active 1 goal linked to scheduled/documen lexis intervention 1 goal intervention scheduled/document ed in this visit Goals Goal Associated Problem Outcome Goal Met? Visit Notes Occupational Therapy Evaluation Description: After assessing the patient and discussing the patient's goals the following were identified. Patient Centered Liner Reroll Tender Goal: to be independent with shower Target date: 09/14/24 OCCUPATIONAL THERAPY EVALUATION ORDER (O) No OT Homemaking Description: Short Term Goal: Patient will demonstrate ability to complete meal prep at standing level with cane as needed with independence. To be met by 09/14/24. Liner Reroll Tender Goal: Patient will demonstrate ability to complete laundry at standing level with cane as needed with independence. To be met by 09/14/24. OT COMPREHENSIVE No Interventions Intervention Associated Problem/Goal Status Variance Visit Notes All Vital Sign Parameters (Order Only) Description: Standard [...] Description: 64 y.o. female was admitted to [facility] (from [facility]) from 07/28/24-08/07/24 with c/o bloody and black stool. She had an EGD completed which showed non-bleeding ulcers. She was also found to be anemic and to have abnormal labs. She received 3 blood transfusions while inpatient. Pt returned home with orders for [facility] PT/OT. She followed up with her PCP and had labwork done. She was subsequently hospitalized from 08/14/24 to 08/15 at [facility] for hypokalemia and hypocalcemia. Pt lives alone in a ground floor apt. She reports the she has the support of her orthodoxy family but most of her family lives out of town. She is currently in the process of being evaluated through [facility] for a homemaker. Pt is alert and [...] for intermittent assessment and/ or respiratory distress. Problem:OCCUPATIONAL THERAPY EVALUATION ORDER (O) Goal:Occupational Therapy Evaluation Completed OT Homemaking Description: Instruct on homemaking techniques and safety. Equipment as needed. Problem:OT COMPREHENSIVE Goal:OT Homemaking Completed Patient performed homemaking for laundry with walker with stand by assist. Education provided fall prevention, energy conservation, adaptive equipment use and use of assistive device. Instruction provided to Patient. Response verbalize understanding, return demonstration and reinforcement needed for compliance. Pt completed set up and organization of laundry room/area with focus on improving safety and functional performance with task by placing all needed items at safe reach. Pt simulated reaching in washer and dryer with SBA of visual cues for safe positioning of 2ww, recommendations for use of venetian blind tape cutter or tongs to retrieve hard to reach clothing, recommendations for use of over the sholder bag to transport laundry for folding and putting away, and sitting to fold. Continued recommendations for use of laundry pods and/or use of detergent with spout dispenser in order to limit need to show operations supervisor heavy detergent bottle. Pt continued education on various laundry carts with wheels. Pt reports CG service to begin in near future. documented in this encounter Care Teams Fiscal Accounting Clerk Relationship Specialty Start Date End Date Priyank Valdez MD [address] [place] [address] PCP - General Internal Medicine 08/08/24 documented as of this encounter
--- OUTSIDE RECORDS SUMMARY | 2024-09-06 14:18 | XMS_ITS | Encounter Summary ---
Author Organization [facility] Address [address] [place] [address] Phone Care Team Providers Care Temper Mill Roller Name Role Phone Priyank Zepeda MD Primary Care Provider [phone] Encounter Details Date Type Department Care Team (Late Contact Info) Description 12/06/2019 Orders Only [facility] [address] [place] [id number] Kristofer Ortiz MD [address] [place] [address] Chronic kidney disease stage 3 [...] Description 10/22/2024 10:45 AM CDT Office Visit [facility] [address] [place] [phone] Kristofer Ortiz MD [address] [place] [address] [address] documented as of this encounter Visit Diagnoses Diagnosis Chronic kidney disease stage 3 (HCC) documented in this encounter Care Teams Temper Mill Roller Relationship Specialty Start Date End Date Priyank Zepeda MD [address] [place] [address] PCP - General Internal Medicine 05/17/19 documented as of this encounter
--- OUTSIDE RECORDS SUMMARY | 2024-09-06 14:18 | XMS_ITS | Encounter Summary ---
Author Organization [facility] Address [address] [place] [address] Phone Care Team Providers Care Night Monitor Name Role Phone Priyank Zepeda MD Primary Care Provider Reason for Visit * Auth/Cert (Routine) Specialty Diagnoses / Procedures Referred By Contac t Referred To Contact Referral ID Status Reason Start Date Expiration Date Visits Re quested Visits Authorized [id number] 8 Encounter Details Date Type Department Care Team (Late Contact Info) Description 09/06/2024 Home Care Visit [facility] [address] [place] [address] CASE COMMUNICATION Social History Tobacco Use Types Packs/Day Years Used Date Smoking Tobacco: Never Assessed Comments Unknown Sex and Gender Information Value Date Recorded Sex Assigned at Not on file Legal Sex Female 11:40 PM CDT Gender Identity Not on file Sexual Orientation Not on file documented as of this encounter Plan of Treatment Upcoming Encounters Date Type Department Care Team (Late Contact Info) Description 09/10/2024 2:30 PM CDT [facility] [address] [place] [address] [address] 09/11/2024 1:00 AM CDT [facility] [address] [place] [address] [address] 09/11/2024 8:45 AM CDT Home Care Visit [address] [address] Moni Mendoza OT 09/12/2024 1:00 AM CDT [facility] Visit [facility] [address] [place] [address] Asia Salazar [place] 09/13/2024 1:30 PM CDT [facility] [address] [place] [address] Viola Richard, FORENSIC PHOTOGRAPHER CT 09/16/2024 1:00 AM CDT [facility] [address] [place] [address] Eloisa Ruiz, PT documented as of this encounter Visit Diagnoses Not on filedocumented in this encounter Care Teams Night Monitor Relationship Specialty Start Date End Date Priyank Zepeda MD [address] [place] [address] PCP - General Internal Medicine 08/08/24 documented as of this encounter
--- OUTSIDE RECORDS SUMMARY | 2024-09-06 14:18 | XMS_ITS | Encounter Summary ---
Author Organization [facility] Address [address] [place] [address] Phone Care Team Providers Care Veneer Marker Name Role Phone Priyank Zepeda MD Primary Care Provider [phone] Reason for Visit * Reason Onset Date Comments Medication Management 08/13/2024 Encounter Details Date Type Department Care Team (Late st Contact Info) Description 08/13/[facility] [address] [place] [address] Eloisa Ruiz, PT Medication Management Social History [...] 09/10/2024 2:30 PM CDT Home Care Visit [address] [address] Viola Richard, FINANCIAL SERVICES SPECIALIST [place] 09/11/2024 1:00 AM CDT Home Care Visit [address] [address] Mary Perez RN [place] 09/11/2024 8:45 AM CDT Home Care Visit [address] [address] Moni Mendoza OT 09/12/2024 1:00 AM CDT Home Care Visit [address] [address] Asia Salazar OTA [place] 09/13/2024 1:30 PM CDT Home Care Visit [address] [address] Viola Richard, FINANCIAL SERVICES SPECIALIST [place] 09/16/2024 1:00 AM CDT Home Care Visit [address] [address] Eloisa Ruiz, PT documented as of this encounter Visit Diagnoses Not on filedocumented in this encounter Care Teams Veneer Marker Relationship Specialty Start Date End Date Priyank Zepeda MD [address] [place] [address] PCP - General Internal Medicine 08/08/24 documented as of this encounter
--- OUTSIDE RECORDS SUMMARY | 2024-09-06 14:19 | XMS_ITS | Clinical Summary ---
Author Organization [facility] Address [address] [address] Phone Care Team Providers Care Forecast Analyst Name Role Phone Priyank Zepeda MD Primary Care Provider [phone] Allergies No known active allergies Medications calcium [...] 2 times per day 08/13/19 Active Pancrelipase, Aof-Emqf-Vipy, (CREON PO) Take 24,000 Units by mouth [...] daily. 08/21/19 Active pancrelipase, lipase-protease -amylase, (Creon) [address] Particles Take 1 Capsule [...] Encounters Date Type Department Care Team Description 09/06/2024 10:00 AM CDT [facility] [address] [place] [address] Asia Salazar OTA OT - HOME VISIT 09/06/2024 [facility] [address] [place] [address] Asia Salazar OTA CASE COMMUNICATION 09/04/2024 2:00 PM CDT Home Care Visit [address] [address] Mary Perez RN SN - LAB 09/04/2024 10:30 AM CDT Home Care Visit [address] [address] Viola Richard [employer] PT - HOME VISIT 09/04/2024 [facility] [address] [place] [address] Priyank Zepeda MD Secondary hyperparathyroidism of renal origin (HCC); Vitamin D deficiency, unspecified; Hypothyroidism, unspecified 09/04/2024 Travel 09/03/2024 12:30 PM CDT Home Care Visit [address] [address] Asia Salazar OTA OT - HOME VISIT 09/03/2024 11:00 AM CDT Home Care Visit [address] [address] Lawanda Fragoso LPN SN - HOME VISIT 09/02/2024 12:00 PM CDT Home Care Visit [address] [address] Eloisa Ruiz, PT PT - REASSESSMENT 08/30/2024 10:30 AM CDT Home Care Visit [address] [address] Asia Salazar LEGAL COUNSEL OT - HOME VISIT 08/29/2024 9:30 AM CDT Home Care Visit [address] [address] Viola Richard, [employer] PT - HOME VISIT 08/29/2024 Travel 08/28/2024 9:30 AM CDT Home Care Visit [address] [address] Asia Salazar, LEGAL COUNSEL OT - HOME VISIT 08/27/2024 1:00 PM CDT Home Care Visit [address] [address] Mary Perez, RN SN - HOME VISIT 08/27/2024 11:00 AM CDT Home Care Visit [address] [address] Viola Richard, [employer] PT - HOME VISIT 08/27/2024 Travel 08/23/2024 12:00 PM CDT Home Care Visit [address] [address] Asia Salazar, LEGAL COUNSEL OT - HOME VISIT 08/22/2024 1:00 PM CDT Home Care Visit [address] [address] Viola Richard, [employer] PT - HOME VISIT 08/20/2024 12:00 PM CDT Home Care Visit [address] [address] Mary Perez, RN SN - HOME HEALTH INITIAL EVALUATION 08/20/2024 11:15 AM CDT Home Care Visit [address] [address] Moni Mendoza, OT OT - HOME VISIT 08/20/2024 10:00 AM CDT Home Care Visit [address] [address] Viola Richard, [employer] PT - HOME VISIT 08/20/2024 Travel 08/18/2024 Home Care Visit [address] [address] Eloisa Ruiz, PT CARE CONFERENCE 08/16/2024 1:30 PM CDT Home Care Visit [address] [address] Eloisa Ruiz, PT PT - HOME VISIT 08/16/2024 12:45 PM CDT Home Care Visit [address] [address] Moni Mendoza OT OT - INITIAL EVALUATION 08/16/[address] [address] Eloisa Ruiz, PT Medication Management 08/14/2024 Home Care Visit [address] [address] Eloisa Ruiz, PT TELEPHONE ENCOUNTER 08/14/2024 Home Care Visit [address] [address] Eloisa Ruiz, PT TELEPHONE ENCOUNTER 08/13/2024 2:30 PM CDT Home Care Visit [address] [address] Eloisa Ruiz, PT PT - OASIS START OF CARE 08/13/[address] [address] Eloisa Ruiz, PT Medication Management 08/13/2024 Plan of Care Documentation [address] [address] from Last 3 Months Social History Tobacco [...] 2 oz) 09/06/2024 11:08 AM CDT Height 165.1 cm (5' 5 ) 08/16/2024 1:33 PM CDT Body Mass Index 29.81 08/16/2024 1:33 PM CDT Plan of Treatment Upcoming Encounters Date Type Department Care Team (Late st Contact Info) Description 09/10/2024 2:30 PM CDT Home Care Visit [address] [address] Viola Richard, [employer] [place] 09/11/2024 1:00 AM CDT Home Care Visit [address] [address] Mary Perez RN [place] 09/11/2024 8:45 AM CDT Home Care Visit [address] [address] Moni Mendoza OT 09/12/2024 1:00 AM CDT Home Care Visit [address] [address] Asia Salazar OTA [place] 09/13/2024 1:30 PM CDT Home Care Visit [address] [address] Viola Richard, [employer] [place] 09/16/2024 1:00 AM CDT Home Care Visit [address] [address] Eloisa Ruiz, PT Health Maintenance Due Date Last Done Comments [...] Procedure Name Priority Date/Time Associated Diagnosis Comments CBC WITH AUTO DIFFERENTIAL Routine 09/04/2024 4:55 PM CDT Secondary hyperparathyroidism of renal origin (HCC) Vitamin D deficiency, unspecified Hypothyroidism, unspecified COMPLETE BLOOD COUNT (CBC) WITH DIFF Routine 09/04/2024 4:55 PM CDT Secondary hyperparathyroidism of renal origin (HCC) Vitamin D deficiency, unspecified Hypothyroidism, unspecified PREALBUMIN (PAB) Routine 09/04/2024 4:55 PM CDT Secondary hyperparathyroidism of renal origin (HCC) Vitamin D deficiency, unspecified Hypothyroidism, unspecified VITAMIN D, 25 HYDROXY TOTAL Routine 09/04/2024 [...] (HCC) Vitamin D deficiency, unspecified Hypothyroidism, unspecified from Last 3 Months Results * VITAMIN D, 25 HYDROXY TOTAL (09/04/2024 4:55 PM CDT) VITAMIN D, 25 HYDROX 19.0 ng/mL 09/04/2024 6:55 PM CDT [facility] Blood No Phlebotomy Charged / Unknown 09/04/2024 4:55 PM CDT 09/04/2024 6:06 PM CDT Narrative [facility] - 09/04/2024 6:55 PM CDT Published reference ranges for Vitamin D vary depending on time and place and method of testing, and on patient's age, sex, ethnicity and levels of other measured analytes such as parathormone, calcium and phosphorus. The result should be evaluated in conjunction with clinical findings and suspicions. [employer] and Endocrine Clinical Practice Guidelines: Status Vitamin D levels (ng/mL) Deficient <=20 At risk of inadequacy 21-29 Sufficient 30-100 Centers of Disease Control and Prevention Guidelines: Status Vitamin D levels (ng/mL) Deficient <13 At risk of inadequacy 13-19 Sufficient 20-50 Possibly harmful >50 References: [employer], 2010 Dietary reference intakes for calcium and vitamin D. [place]: The National Academies Press. Yo M, Blayne N, Sara LEES, et al., Evaluation, treatment, and prevention of Vitamin D deficiency: an Endocrinology Clinical Practice Guideline. JCEM 2011 96: 7 6237-1291. Kiet A, Dario C, Yemi D, et al., Vitamin D Status: [place], 7302-7273, [facility] data brief, no. 59, MD [place]: National Center for Health Statistics. 2011. us Priyank Zepeda MD CHEMISTRY ORDERABLES Final Re sult [facility] [address] [place] [address] * (ABNORMAL) CBC WITH AUTO DIFFERENTIAL (09/04/2024 4:55 PM CDT) WBC 4.62 4.00 - 12.00 10(3)/mcL 09/04/2024 6:44 PM CDT [facility] RBC 3.31(L) 3.80 - 5.30 10(6)/mcL 09/04/2024 6:44 PM CDT [facility] HEMOGLOBIN (HGB) 10.2(L) 12.0 - 15.8 g/dL 09/04/2024 6:44 PM CDT [facility] HEMATOCRIT (HCT) 32.3(L) 36.0 - 47.0 % 09/04/2024 6:44 PM CDT [facility] MCV 97.6(H) 82.0 - 96.0 fL 09/04/2024 6:44 PM CDT [facility] MCH 30.8 26.0 - 34.0 pg 09/04/2024 6:44 PM CDT [facility] MCHC 31.6 31.0 - 36.0 g/dL 09/04/2024 6:44 PM CDT [facility] PLATELET COUNT 240 140 - 440 10(3)/mcL 09/04/2024 6:44 PM CDT [facility] RDW 18.8(H) 11.8 - 15.5 % 09/04/2024 6:44 PM CDT [facility] MPV 9.8 9.7 - 12.4 fL 09/04/2024 6:44 PM CDT [facility] NEUTROPHILS 75.4(H) 47.0 - 73.0 % 09/04/2024 6:44 PM CDT [facility] LYMPHOCYTES 11.9(L) 18.0 - 42.0 % 09/04/2024 6:44 PM CDT [facility] MONOCYTES 9.3 4.0 - 12.0 % 09/04/2024 6:44 PM CDT [facility] EOSINOPHILS 2.8 0.0 - 5.0 % 09/04/2024 6:44 PM CDT [facility] BASOPHILS 0.6 0.0 - 1.0 % 09/04/2024 6:44 PM CDT [facility] ABSOLUTE NEUTROPHILS 3.48 1.60 - 7.70 10(3)/mcL 09/04/2024 6:44 PM CDT [facility] ABSOLUTE LYMPHOCYTES 0.55(L) 1.30 - 3.20 10(3)/[facility] 09/04/2024 6:44 PM CDT [facility] ABSOLUTE MONOCYTES 0.43 0.20 - 1.00 10(3)/[facility] 09/04/2024 6:44 PM CDT [facility] ABSOLUTE EOSINOPHIL 0.13 0.00 - 0.40 10(3)/[facility] 09/04/2024 6:44 PM CDT [facility] ABSOLUTE BASOPHILS 0.03 0.00 - 0.10 10(3)/[facility] 09/04/2024 6:44 PM CDT [facility] NRBC PER 100 WBC 0 09/05/19 25 6:44 PM CDT [facility] RESULTS ARE CONSISTENT WITH PERIPHERAL SMEAR REVIEW Yes 09/04/2024 6:44 PM CDT [facility] RBC MORPHOLOGY CONSISTENT WITH INDICES Yes 09/04/2024 6:44 PM CDT [facility] Blood No Phlebotomy Charged / Unknown 09/04/2024 4:55 PM CDT 09/04/2024 6:06 PM CDT us Priyank Zepeda MD HEMATOLOGY ORDERABLES Final R esult [facility] [address] [place] [address] * (ABNORMAL) THYROID STIMULATING HORMONE (TSH) (09/04/2024 4:55 PM CDT) TSH 9.593(H) 0.300 - 5.000 mIU/L 09/04/2024 6:56 PM CDT [facility] Blood No Phlebotomy Charged / Unknown 09/04/2024 4:55 PM CDT 09/04/2024 6:06 PM CDT us Priyank Zepeda MD CHEMISTRY ORDERABLES Final Re sult [facility] [address] [place] [address] * (ABNORMAL) PHOSPHORUS (PO4) (09/04/2024 4:55 PM CDT) PHOSPHORUS 2.3(L) 2.5 - 4.5 mg/dL 09/04/2024 6:39 PM CDT [facility] Blood No Phlebotomy Charged / Unknown 09/04/2024 4:55 PM CDT 09/04/2024 6:06 PM CDT us Priyank Zepeda MD CHEMISTRY ORDERABLES Final Re sult Performing Organization Address City/[facility]/ZIP Co de Phone Number [facility] [address] [place] [address] * (ABNORMAL) CMP (COMPREHENSIVE METABOLIC PANEL) (09/04/2024 4:55 PM CDT) SODIUM 143 136 - 145 mmol/L 09/04/2024 6:39 PM CDT [facility] POTASSIUM 4.0 3.5 - 5.1 mmol/L 09/04/2024 6:39 PM CDT [facility] CHLORIDE 114(H) 98 - 107 mmol/L 09/04/2024 6:39 PM CDT [facility] CO2, VENOUS 23 22 - 30 mmol/L 09/04/2024 6:39 PM CDT [facility] ANION GAP 10.0 <18.0 mmol/L 09/04/2024 6:39 PM CDT [facility] GLUCOSE 87 70 - 99 mg/dL 09/04/2024 6:39 PM CDT [facility] BUN 10 10 - 20 mg/dL 09/04/2024 6:39 PM CDT [facility] CREATININE, BLOOD 0.77 0.60 - 1.00 mg/dL 09/04/2024 6:39 PM [facility] BUN/CREATININE RATIO 13 12 - 20 ratio 09/04/2024 6:39 PM [facility] TOTAL PROTEIN 6.8 6.0 - 8.0 g/dL 09/04/2024 6:39 PM [facility] ALBUMIN 2.7(L) 3.5 - 5.0 g/dL 09/04/2024 6:39 PM [facility] A/G RATIO 0.7(L) 1.0 - 2.2 09/04/2024 6:39 PM [facility] CALCIUM 8.2(L) 8.7 - 10.5 mg/dL 09/04/2024 6:39 PM [facility] T BILI 0.4 0.2 - 1.2 mg/dL 09/04/2024 6:39 PM [facility] SGOT (AST) 52(H) <43 U/L 09/04/2024 6:39 PM [facility] SGPT (ALT) 37 <56 U/L 09/04/2024 6:39 PM [facility] ALKALINE PHOSPHATASE 137 40 - 150 U/L 09/04/2024 6:39 PM [facility] GFR, ESTIMATED >60 >=60 09/04/2024 6:39 PM [facility] Comment: Creatinine Clearance is the preferred criteria for selecting drug dose adjustments in renally impaired patients. The GFR is provided as additional pertinent clinical information. GFR is reported in mL/min/1.73 sq m. Calculation based on the Chronic Kidney Disease Epidemiology Collaboration (CKD- EPI) equation refit without adjustment for race. GFR, EST. >60 >=60 025 6:39 PM [facility] GFR, EST. NONAFRICAN >60 >=60 09/04/2024 6:39 PM [facility] Blood No Phlebotomy Charged / Unknown 09/04/2024 4:55 PM CDT 09/04/2024 6:06 PM CDT us Priyank Zepeda MD CHEMISTRY ORDERABLES Final Re sult [facility] [address] [place] [address] * (ABNORMAL) PREALBUMIN (PAB) (09/04/2024 4:55 PM CDT) PRE ALBUMIN 13(L) 14 - 37 mg/dL 09/05/2024 6:00 PM CDT [facility] Blood No Phlebotomy Charged / Unknown 09/04/2024 4:55 PM CDT 09/04/2024 6:06 PM CDT us Priyank Zepeda MD CHEMISTRY ORDERABLES Final Re sult [facility] [address] [place] [address], from Last 3 Months Insurance MEDICAID [employer] Advance Directives Documents on File Type Date Recorded 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 Dimension Stone Expl anation Power of Outside Sales Representative for Health Care 08/26/2024 9:18 AM POA- Power of Outside Sales Representative for Health Care 08/26/2024 9:18 AM POA-HC Power of Outside Sales Representative for Health Care 08/26/2024 9:13 AM POA-HC Power of Outside Sales Representative for Health Care 08/26/2024 9:08 AM POA-HC Power of Outside Sales Representative for Health Care 08/14/2024 12:10 PM POA HC 07/30/2024 * Full Code (Latest Code Status on File) Date Activated Date Inactivated Comments 08/13/2024 10:26 PM Care Teams Forecast Analyst Relationship Specialty Start Date End Date Priyank Zepeda MD [address] [id number] PCP - General Internal Medicine 08/08/24
--- OUTSIDE RECORDS SUMMARY | 2024-09-06 14:19 | XMS_ITS | Clinical Summary ---
Author Organization [facility] [employer] Address [address] [place] [address] Care Team Providers Care Data Center Technician Name Role Phone Priyank Zepeda MD Primary Care Provider [phone] Source Comments [facility],non-owned Affiliates and Associated Physician Practices is amultiple site organization consisting of ambulatory clinics and hospital sitesin [place], [place], [place]. This disclosure is being madepursuant to the Care Everywhere program and may not contain all information available regarding this patient. Last updated 18.[facility] [employer] Allergies Active Allergy Reactions Criticality Noted Date [...] every 8 hours as needed for Nausea/Vomiting Active amitriptyline (Elavil) 10 MG tablet Take [...] tablet by mouth daily before breakfast Active cholestyramine light (Questran Light; Prevalite) 4 g packet Mix 1 packet as directed and take by mouth once daily 42 Each 08/07/2024 Active ferrous sulfate 325 (65 FE) MG tablet Take 1 (one) tablet by mouth once daily after lunch 30 tablet 08/07/2024 Active folic acid (Folvite) 1 MG tablet Take 1 (one) tablet by mouth once daily 30 tablet 08/08/2024 Active pantoprazole EC (Protonix) 40 MG tablet Take 1 (one) tablet by mouth 2 times daily, before breakfast and supper 60 tablet 08/07/2024 Active sucralfate (Carafate) 1 GM/10ML suspension Take 10 mL by mouth 4 times daily - before meals & nightly 420 mL 08/07/2024 Active Cholecalciferol (vitamin D3) 1.25 MG (44904 UT) capsule Take 1 (one) capsule by mouth every 7 days 5 capsule 08/09/2024 Active furosemide (Lasix) 40 MG tablet Take 1 (one) tablet by mouth once daily 30 tablet 08/07/2024 Active Calcium Carbonate Antacid (calcium carbonate, 500 mg elemental Ca/5 mL,) 1250 MG/5ML suspension Take 10 mL by mouth 3 times daily with meals 473 mL 1 08/07/2024 Active pancrelipase (Creon 24,000) 72570-70344 units capsule Take 1 (one) capsule by mouth 3 times daily with meals 100 capsule 08/07/2024 Active calcitriol (Rocaltrol) 0.5 MCG capsule Take 2 (two) capsules by mouth 3 times daily 180 capsule 08/07/2024 Active sodium bicarbonate 650 MG tablet Take 1 (one) tablet by mouth 3 times daily 90 tablet 08/07/2024 Active Nutritional Supplements (Ensure High Protein) LIQD Take 1 container by mouth 2 times daily for 30 days 08/01/2024 08/31/2024 Active Problems Problem Noted Date Diagnosed Date Back pain 08/02/2024 Colitis 07/28/2024 Gastrointestinal hemorrhage with melena 07/28/19 25 Encounters Date Type Department Care Team Description 07/29/2024 8:42 AM J2EE PROGRAMMER Anesthesia Event [facility] - Endoscopy Services [address] [place] [id number] Bozena Osullivan, Mary Ryan, TEST HOLE DRILLER-JOCY 07/29/2024 8:30 AM J2EE PROGRAMMER - 07/29/2024 9:00 AM J2EE PROGRAMMER Surgery [facility] - Endoscopy Services [address] [place] [id number] Cathleen Estrada MD ESOPHAGOGASTRODUODENOSCOPY (EGD) DIAGNOSTIC 07/28/2024 2:19 PM J2EE PROGRAMMER - 08/07/2024 4:44 PM J2EE PROGRAMMER Hospital Encounter [facility] Pulmonary Med [address] [place] [id number] Yi Grier MD Fatima, Noor E, MD Zhu, He, MD Kumar, Hanesh, MD Sampath, MD Sarah Hospitalist Discharge Disposition: Home or Self Care [...] medical care, and heating? Somewhat hard 07/28/2024 [facility] Emma of Occupat ional Health - Occupational Stress [...] any time in the past [address] [facility], were you homeless or living in a fci (including now)? No 07/28/2024 Sex and Gender Information Value Date Recorded Sex Assigned at Not on file Gender Identity Not on file Sexual Orientation Not on file Last Filed Vital Signs Vital Sign Reading Time Taken Comments Blood Pressure 112/78 08/07/2024 2:44 PM J2EE PROGRAMMER Pulse 93 08/07/2024 2:44 PM J2EE PROGRAMMER Temperature 37.5 C (99.5 F) 08/07/2024 11:33 AM J2EE PROGRAMMER Respiratory Rate 18 08/07/2024 11:3 3 AM J2EE PROGRAMMER Oxygen Saturation 97% 08/07/2024 2:44 PM J2EE PROGRAMMER Inhaled Oxygen Concentration - - Weight 87.5 kg (192 lb 14.4 oz) 025 12:04 AM J2EE PROGRAMMER Height 165.1 cm (5' 5 ) 07/28/2024 4:01 PM J2EE PROGRAMMER Body Mass Index 32.1 07/28/2024 4:01 PM J2EE PROGRAMMER Plan of Treatment Health Maintenance Due [...] CARDIAC RHYTHM STRIP ORDER 08/08/2024 11:03 PM J2EE PROGRAMMER APHERESIS/TRANSFUSIO N ORDER 08/08/2024 11:03 PM J2EE PROGRAMMER B-TYPE NATRIURETIC PEPTIDE AM Draw 08/07/2024 1:59 AM J2EE PROGRAMMER COMPREHENSIVE METABOLIC PANEL AM Draw 08/07/2024 1:59 AM J2EE PROGRAMMER VAS BILATERAL VENOUS DUPLEX LE PENDING DISCHARGE 08/06/2024 2:30 PM J2EE PROGRAMMER Bilateral leg edema MAGNESIUM BLOOD Routine 08/06/2024 6:07 AM J2EE PROGRAMMER BASIC METABOLIC PANEL (CALCIUM TOTAL) Routine 08/06/2024 6:07 AM J2EE PROGRAMMER PHOSPHORUS BLOOD Routine 08/06/2024 6:07 AM J2EE PROGRAMMER MRI LUMBAR SPINE WO CONTRAST Routine 08/05/2024 9:48 AM J2EE PROGRAMMER Acute midline low back pain without sciatica PHOSPHORUS BLOOD Routine 08/05/2024 6:53 AM J2EE PROGRAMMER COMPREHENSIVE METABOLIC PANEL AM Draw 08/05/2024 6:53 AM J2EE PROGRAMMER MAGNESIUM BLOOD AM Draw 08/05/2024 6:53 AM J2EE PROGRAMMER CBC W AUTO DIFFERENTIAL AM Draw 08/05/2024 6:53 AM J2EE PROGRAMMER PROTEIN URINE TIMED QUANTITATIVE Routine 08/04/2024 1:55 PM J2EE PROGRAMMER URIC ACID URINE TIMED Routine 08/04/2024 1:55 PM J2EE PROGRAMMER CREATININE CLEARANCE URINE TIMED + BLOOD Routine 08/04/2024 1:55 PM J2EE PROGRAMMER CALCIUM URINE TIMED Routine 08/04/2024 1 :55 PM J2EE PROGRAMMER COMPREHENSIVE METABOLIC PANEL AM Draw 08/04/2024 6:55 AM J2EE PROGRAMMER MAGNESIUM BLOOD AM Draw 08/04/2024 6:55 AM J2EE PROGRAMMER CBC W AUTO DIFFERENTIAL AM Draw 08/04/2024 6:55 AM J2EE PROGRAMMER URINALYSIS REFLEX TO MICROSCOPIC NO CULTURE Routine 08/03/2024 12:49 PM J2EE PROGRAMMER COMPREHENSIVE METABOLIC PANEL AM Draw 08/03/2024 9:26 AM J2EE PROGRAMMER MAGNESIUM BLOOD AM Draw 08/03/2024 9:26 AM J2EE PROGRAMMER CBC W AUTO DIFFERENTIAL AM Draw 08/03/2024 9:26 AM J2EE PROGRAMMER XR LUMBAR SPINE 2 OR 3VW Routine 08/02/2024 2:10 PM J2EE PROGRAMMER Acute midline low back pain without sciatica PTH INTACT W/O CALCIUM Routine 08/02/2024 3:19 AM J2EE PROGRAMMER MAGNESIUM BLOOD AM Draw 08/02/2024 3:19 AM J2EE PROGRAMMER RENAL FUNCTION PANEL AM Draw 08/02/2024 3:19 AM J2EE PROGRAMMER CBC W AUTO DIFFERENTIAL AM Draw 08/02/2024 3:19 AM J2EE PROGRAMMER CALCIUM BLOOD STAT 08/01/2024 3:41 AM J2EE PROGRAMMER MAGNESIUM BLOOD AM Draw 08/01/2024 1:20 AM J2EE PROGRAMMER RENAL FUNCTION PANEL AM Draw 08/01/2024 1:20 AM J2EE PROGRAMMER CBC W AUTO DIFFERENTIAL AM Draw 08/01/2024 1:20 AM J2EE PROGRAMMER HGB HCT PANEL Timed 07/31/2024 7:39 AM J2EE PROGRAMMER TRANSFUSE RED BLOOD CELL LEUKOREDUCED UNIT(S) Routine 07/31/2024 3:40 AM J2EE PROGRAMMER PREPARE RBC LEUKOREDUCED UNIT Routine 07/31/2024 3:35 AM J2EE PROGRAMMER MAGNESIUM BLOOD AM Draw 07/31/2024 2:15 AM J2EE PROGRAMMER RENAL FUNCTION PANEL AM Draw 07/31/2024 2:15 AM J2EE PROGRAMMER CBC W AUTO DIFFERENTIAL AM Draw 07/31/2024 2:15 AM J2EE PROGRAMMER VITAMIN D 25-HYDROXY AM Draw 07/31/2024 2:15 AM J2EE PROGRAMMER VITAMIN B12 AM Draw 07/31/2024 2:15 AM J2EE PROGRAMMER FOLATE Routine 07/31/2024 2:15 AM J2EE PROGRAMMER IRON + TRANSFERRIN PANEL Routine 07/31/2024 2:15 AM J2EE PROGRAMMER HGB HCT PANEL Timed 07/30/2024 10:03 AM J2EE PROGRAMMER TRANSFUSE RED BLOOD CELL LEUKOREDUCED UNIT(S) Routine 07/30/2024 5:20 AM J2EE PROGRAMMER PREPARE RBC LEUKOREDUCED UNIT Routine 07/30/2024 5:15 AM J2EE PROGRAMMER BLOOD TYPE VERIFICATION Routine 07/30/2024 2:06 AM J2EE PROGRAMMER CBC W/O DIFFERENTIAL AM Draw 07/30/2024 2:06 AM J2EE PROGRAMMER PT-INR AM Draw 07/30/2024 2:06 AM J2EE PROGRAMMER BASIC METABOLIC PANEL (CALCIUM TOTAL) AM Draw 07/30/2024 2:06 AM J2EE PROGRAMMER HGB HCT PANEL Timed 07/29/2024 9:08 PM J2EE PROGRAMMER US ABDOMEN LIMITED Routine 07/29/2024 2: 29 PM J2EE PROGRAMMER Gastrointestinal hemorrhage with melena HGB HCT PANEL Routine 07/29/2024 10:19 AM J2EE PROGRAMMER PT-INR AM Draw 07/29/2024 10:19 AM J2EE PROGRAMMER MS ED EGD FLEX TRANSORAL DX 07/29/2024 8:30 AM J2EE PROGRAMMER EGD Routine 07/29/2024 6:57 AM J2EE PROGRAMMER CBC W/O DIFFERENTIAL Routine 07/29/2024 6:42 AM J2EE PROGRAMMER COMPREHENSIVE METABOLIC PANEL Routine 07/29/2024 6:42 AM J2EE PROGRAMMER MAGNESIUM BLOOD Routine 07/29/2024 6:42 AM J2EE PROGRAMMER PHOSPHORUS BLOOD Routine 07/29/2024 6:42 AM J2EE PROGRAMMER CULTURE BLOOD Timed 07/28/2024 10:03 PM J2EE PROGRAMMER CULTURE BLOOD Timed 07/28/2024 8:16 PM J2EE PROGRAMMER TYPE + SCREEN PANEL Routine 07/28/2024 6 :52 PM J2EE PROGRAMMER COMPREHENSIVE METABOLIC PANEL STAT 07/28/2024 5:25 PM J2EE PROGRAMMER CBC W/O DIFFERENTIAL STAT 07/28/2024 5:25 PM J2EE PROGRAMMER from Last 3 Months Results * CARDIAC RHYTHM STRIP ORDER (08/08/2024 11:03 PM J2EE PROGRAMMER) Narrative 08/08/2024 11:03 PM J2EE PROGRAMMER Ordered by an unspecified provider. Scanned Document CARDIAC SERVICES ORD ERABLES * APHERESIS/TRANSFUSION ORDER (08/08/2024 11:03 PM J2EE PROGRAMMER) Narrative 08/08/2024 11:03 PM J2EE PROGRAMMER Ordered by an unspecified provider. Scanned Document NURSING - VITAL SIGN S AND ASSESSMENT * B-TYPE NATRIURETIC PEPTIDE (08/07/2024 1:59 AM J2EE PROGRAMMER) BNP 35 <=100 pg/mL 08/07/2024 2:52 AM J2EE PROGRAMMER [facility] Blood BLOOD SPECIMEN / Unknown Venipuncture / Unknown 08/07/2024 1:59 AM J2EE PROGRAMMER 08/07/2024 2:19 AM J2EE PROGRAMMER Chika Chew MD LAB - CHEMISTRY ORDE DORITA [facility] [address] [place] [address] * (ABNORMAL) COMPREHENSIVE METABOLIC PANEL (08/07/2024 1:59 AM [facility]) Only the most recent of6 resultswithin the time period is included. Glucose 97 70 - 99 mg/dL 08/07/2024 2:55 AM [facility] Sodium 136 136 - 145 mmol/L 08/07/2024 2:55 AM [facility] Potassium 3.9 3.5 - 5.1 mmol/L 08/07/2024 2:55 AM [facility] Chloride 104 98 - 107 mmol/L 08/07/2024 2:55 AM [facility] CO2 23 22 - 29 mmol/L 08/07/2024 2:55 AM [facility] Calcium 6.8(L) 8.4 - 10.4 mg/dL 08/07/2024 2:55 AM [facility] Anion Gap 9 6 - 16 mmol/L 08/07/2024 2:55 AM [facility] BUN 9 7 - 26 mg/dL 08/07/2024 2:55 AM [facility] Creatinine 0.95 0.57 - 1.11 mg/dL 08/07/2024 2:55 AM [facility] Alkaline Phosphatase 91 40 - 150 U/L 08/07/2024 2:55 AM [facility] ALT 21 0 - 55 U/L 08/07/2024 2:55 AM [facility] AST 28 5 - 34 U/L 08/07/2024 2:55 AM [facility] Protein Total 4.9(L) 6.4 - 8.3 gm/dL 08/07/2024 2:55 AM [facility] Albumin 2.1(L) 3.4 - 5.0 gm/dL 08/07/2024 2:55 AM [facility] Bilirubin Total 0.6 0.2 - 1.2 mg/dL 08/07/2024 2:55 AM [facility] eGFR by CKD-EPI 66(L) >=90 mL/min/1.7 3 m2 08/07/2024 2:55 AM [facility] Blood BLOOD SPECIMEN / Unknown Venipuncture / Unknown 08/07/2024 1:59 AM J2EE PROGRAMMER 08/07/2024 2:19 AM J2EE PROGRAMMER Chika Chew MD LAB - CHEMISTRY AIDEN KEVIN [facility] [address] [place] [id number] * VAS Bilateral Venous Duplex Le (08/06/2024 2:30 PM J2EE PROGRAMMER) Anatomical Region Laterality Modality Lower Extremity Ultrasound 08/06/2024 1:50 PM J2EE PROGRAMMER Narrative Procedure Note Jorge Barakat MD - 08/07/[address] [address] Lower Extremity Venous Ultrasound Report Pat.Name: JENNIFER SARAHY Lynn Pat.ID: [id number] .Date: 08/06/2024 Exam Time: 1:50:00 PM Study Type:LE Venous Age: 1 1960,64Y Sex: FEMALE Sonogrphr: Binh Eldridge RVT Pat. Stat.:Inpatient Room: [facility] ICD - 9: R60.0 CPT - 4: 34288 Reason for Study: Bilateral leg edema History / Clinical: CKD, Liver cirrhosis Procedures: Lower Extremity Venous - Bilateral Race: 1 Visit ID: [id number] ++++++++++++++++++++++++++++++++++++ SUMMARY: ++++++++++++++++++++++++++++++++++++ There is no evidence [...] METABOLIC PANEL (CALCIUM TOTAL) (08/06/2024 6:07 AM J2EE PROGRAMMER) Only the most recent of2 resultswithin the time period is included. Pathologist [facility] Glucose 87 70 - 99 mg/dL 08/06/2024 8:46 AM [facility] Sodium 137 136 - 145 mmol/L 08/06/2024 8:46 AM [facility] Potassium 3.0(L) 3.5 - 5.1 mmol/L 08/06/2024 8:46 AM [facility] Chloride 103 98 - 107 mmol/L 08/06/2024 8:46 AM [facility] CO2 27 22 - 29 mmol/L 08/06/2024 8:46 AM [facility] Calcium 6.7(L) 8.4 - 10.4 mg/dL 08/06/2024 8:46 AM [facility] Anion Gap 7 6 - 16 mmol/L 08/06/2024 8:46 AM [facility] BUN 7 7 - 26 mg/dL 08/06/2024 8:46 AM [facility] Creatinine 0.81 0.57 - 1.11 mg/dL 08/06/2024 8:46 AM [facility] eGFR by CKD-EPI 81(L) >=90 mL/min/1.7 3 m2 08/06/2024 8:46 AM [facility] Blood BLOOD SPECIMEN / Unknown Venipuncture / Unknown 08/06/2024 6:07 AM J2EE PROGRAMMER 08/06/2024 6:11 AM J2EE PROGRAMMER Chika Chew MD LAB - CHEMISTRY AIDEN KEVIN [facility] Organization Address City/State/ZIP Co de Phone Number [facility] [address] [place] [address] * PHOSPHORUS BLOOD (08/06/2024 6:07 AM J2EE PROGRAMMER) Only the most recent of3 resultswithin the time period is included. Phosphorus 3.7 2.5 - 4.5 mg/dL 08/06/2024 6:27 AM J2EE PROGRAMMER [facility] Blood BLOOD SPECIMEN / Unknown Venipuncture / Unknown 08/06/2024 6:07 AM J2EE PROGRAMMER 08/06/2024 6:11 AM J2EE PROGRAMMER Miguel Angel Mccain MD LAB - CHEMISTRY ORDE [facility] Performing Organization Address [facility]/ZIP Co de Phone Number [facility] [address] [place], [place] [id number] * MAGNESIUM BLOOD (08/06/2024 6:07 AM J2EE PROGRAMMER) Only the most recent of8 resultswithin the time period is included. Magnesium 1.7 1.6 - 2.6 mg/dL 08/06/2024 8:43 AM J2EE PROGRAMMER [facility] Blood BLOOD SPECIMEN / Unknown Venipuncture / Unknown 08/06/2024 6:07 AM J2EE PROGRAMMER 08/06/2024 6:11 AM J2EE PROGRAMMER Chika Chew MD LAB - CHEMISTRY [facility] Performing Organization Address [facility] Co de Phone Number [facility] [address] [place] [address] * MRI Lumbar Spine Wo Contrast (08/05/2024 9:48 AM J2EE PROGRAMMER) Anatomical Region Laterality Modality Spine Magnetic Resonan ce 08/05/2024 9:51 AM J2EE PROGRAMMER Impressions 08/05/2024 11:53 AM J2EE PROGRAMMER IMPRESSION: Multilevel degenerative disc and joint disease. Mild foraminal narrowing at L3-L4 and L4-L5 levels. No canal narrowing seen. Minimal superior endplate compression at T12, associated with mild marrow edema, less than 25% loss of vertical height. Edited by Tressa Phillips on 08/05/2024 10:17 AM > Interpreting Provider: Stefani Zepeda MD on 08/05/2024 11:53 AM Narrative 08/05/2024 11:53 AM J2EE PROGRAMMER PROCEDURE: MRI LUMBAR SPINE WO CONTRAST [...] CBC W AUTO DIFFERENTIAL (08/05/2024 6:53 AM J2EE PROGRAMMER) Only the most recent of6 resultswithin the time period is included. WBC 6.8 4.0 - 10.7 x10E9/L 08/05/2024 7:01 AM J2EE PROGRAMMER [facility] RBC Count 2.80(L) 3.90 - 5.20 x10E12/L 08/05/2024 7:01 AM J2EE PROGRAMMER [facility] Hemoglobin 8.6(L) 11.9 - 15.8 g/dL 08/05/2024 7:01 AM J2EE PROGRAMMER [facility] Hematocrit 26.3(L) 34.8 - 46.1 % 08/05/2024 7:01 AM J2EE PROGRAMMER [facility] MCV 93.9 80.0 - 98.0 fL 08/05/2024 7:01 AM J2EE PROGRAMMER [facility] MCH 30.7 26.7 - 33.6 pg 08/05/2024 7:01 AM [facility] MCHC 32.7 31.7 - 36.3 g/dL 08/05/2024 7:01 AM [facility] RDW-CV 17.6(H) 11.3 - 14.8 % 08/05/2024 7:01 AM [facility] Platelet Count 111(L) 150 - 420 x10E9/L 08/05/2024 7:01 AM [facility] MPV 10.1 7.8 - 11.4 fL 08/05/2024 7:01 AM [facility] Neutrophil % 70.0 41.0 - 74.0 % 08/05/2024 7:01 AM [facility] Lymphocyte % 13.8(L) 17.0 - 47.0 % 08/05/2024 7:01 AM [facility] Monocyte % 11.7(H) 3.0 - 11.0 % 08/05/2024 7:01 AM [facility] Eosinophil % 3.7 0.0 - 7.0 % 08/05/2024 7:01 AM [facility] Basophil % 0.4 0.0 - 1.6 % 08/05/2024 7:01 AM [facility] Immature Granulocytes % 0.4 0.0 - 1.0 % 08/05/2024 7:01 AM [facility] Neutrophil Absolute 4.76 1.60 - 7.50 x10E9/L 08/05/2024 7:01 AM [facility] Lymphocyte Absolute 0.94(L) 1.00 - 4.40 x10E9/L 08/05/2024 7:01 AM [facility] Monocyte Absolute 0.80 0.15 - 1.00 x10E9/L 08/05/2024 7:01 AM [facility] Eosinophil Absolute 0.25 0.00 - 0.60 x10E9/L 08/05/2024 7:01 AM [facility] Basophil Absolute 0.03 0.00 - 0.13 x10E9/L 08/05/2024 7:01 AM [facility] Blood BLOOD SPECIMEN / Unknown Venipuncture / Unknown 08/05/2024 6:53 AM J2EE PROGRAMMER 08/05/2024 6:57 AM J2EE PROGRAMMER Miguel Angel Mccain MD LAB - HEMATOLOGY ORD ERABLES [facility] [address] [place] [address] * URIC ACID URINE TIMED (08/04/2024 1:55 PM J2EE PROGRAMMER) Uric Acid 24 Hour Urine 205.0 142.3 - 713.2 mg/24 hr 08/06/2024 11:10 AM J2EE PROGRAMMER [facility] ([facility]) Uric Acid Urine 20.5 Not Estab. mg/dL 08/06/2024 11:10 AM J2EE PROGRAMMER [facility] ([facility]) Urine TIMED URINE SPECIMEN / Unknown Timed Urine Volume Measurement / Unknown 08/04/2024 1:55 PM J2EE PROGRAMMER 08/04/2024 2:02 PM J2EE PROGRAMMER Narrative [facility] ([facility]) - 08/06/2024 11:10 AM J2EE PROGRAMMER Performed at: [address] - [address] [id number] Discotheque Dancer: El Sood PhD, Phone: [phone] Pete Olmos MD LAB - URINE CHEMISTR Y ORDERABLES Performing Organization Address City/[facility] Co de Phone Number [facility] ([facility]) [address] [place] [address] * PROTEIN URINE TIMED QUANTITATIVE (08/04/2024 1:55 PM J2EE PROGRAMMER) Volume 24 Hour Urine 1,000 mL 08/04/2024 2:25 PM J2EE PROGRAMMER [facility] Collection Time Hours 24 hrs 08/04/2024 2:25 PM J2EE PROGRAMMER [facility] Protein 24 Hour Urine 72 <300 mg/24hr 08/04/2024 2:25 PM J2EE PROGRAMMER [facility] Protein Urine 7.2 <11.9 mg/dL 08/04/2024 2:25 PM J2EE PROGRAMMER [facility] Urine TIMED URINE SPECIMEN / Unknown Timed Urine Volume Measurement / Unknown 08/04/2024 1:55 PM J2EE PROGRAMMER 08/04/2024 2:02 PM J2EE PROGRAMMER Pete Olmos MD LAB - URINE CHEMISTR Y ORDERABLES Performing Organization Address [facility] de Phone Number [facility] [id number] [place] [id number] * CREATININE CLEARANCE URINE TIMED + BLOOD (08/04/2024 1:55 PM J2EE PROGRAMMER) Volume 24 Hour Urine 1,000 mL 08/04/2024 2:28 PM [facility] Collection Time Hours 24 hrs 08/04/2024 2:28 PM [facility] Height Inches 65 inches 08/04/2024 2:28 PM [facility] Weight in Pounds 160 pounds 08/04/2024 2:28 PM [facility] Surface Area 1.80 08/04/2024 2:28 PM [facility] Creatinine 0.81 0.57 - 1.11 mg/dL 08/04/2024 2:28 PM [facility] Creatinine Urine 82.74 mg/dL 08/04/2024 2:28 PM [facility] Creatinine 24 Hour Urine 827 710 - 1,650 mg/24hr 08/04/2024 2:28 PM [facility] Creatinine Clearance 68 66 - 165 mL/min/1.73 m2 08/04/2024 2:28 PM [facility] Urine TIMED URINE SPECIMEN / Unknown Timed Urine Volume Measurement / Unknown 08/04/2024 1:55 PM J2EE PROGRAMMER 08/04/2024 2:02 PM J2EE PROGRAMMER Pete Olmos MD LAB - URINE CHEMISTR Y ORDERABLES Performing Organization Address [facility] Co de Phone Number [facility] [address] [place] [address] * (ABNORMAL) CALCIUM URINE TIMED (08/04/2024 1:55 PM J2EE PROGRAMMER) Calcium Random Urine <2.0 Not Established mg/dL 08/04/2024 7:00 PM [facility] Collection Time Timed Urine 24 Hrs 08/04/2024 7:00 PM [facility] Calcium 24 Hour Urine <20(L) 50 - 300 mg/24 hrs 08/04/2024 7:00 PM [facility] Comment:Unable to calculate excretion rate because the analyte concentration is outside the instrument measuring range. Volume Timed Urine 1,000 mL 08/04/2024 7:00 PM [facility] Urine TIMED URINE SPECIMEN / Unknown Timed Urine Volume Measurement / Unknown 08/04/2024 1:55 PM J2EE PROGRAMMER 08/04/2024 2:02 PM J2EE PROGRAMMER Pete Olmos MD LAB - URINE CHEMISTR Y ORDERABLES [facility] [address] [place] [address], [facility] [phone] * (ABNORMAL) URINALYSIS REFLEX TO MICROSCOPIC NO CULTURE (08/03/2024 12:49 PM J2EE PROGRAMMER) Color UA Yellow Yellow, Straw 08/03/2024 1:30 PM J2EE PROGRAMMER [facility] Clarity UA Clear Clear 08/03/2024 1:30 PM J2EE PROGRAMMER [facility] Glucose UA Normal Normal 08/03/2024 1:30 PM J2EE PROGRAMMER [facility] Bilirubin UA Negative Negative 08/03/2024 1:30 PM J2EE PROGRAMMER [facility] Ketone UA Negative Negative 08/03/2024 1:30 PM J2EE PROGRAMMER [facility] Specific [place] UA 1.013 1.005 - 1.030 08/03/2024 1:30 PM J2EE PROGRAMMER [facility] Blood UA Negative Negative 08/03/2024 1:30 PM J2EE PROGRAMMER [facility] pH UA 7.5 5.0 - 9.0 pH 08/03/2024 1:30 PM J2EE PROGRAMMER [facility] Protein UA Negative Negative 08/03/2024 1:30 PM J2EE PROGRAMMER [facility] Urobilinogen UA Normal Normal mg/dL 08/03/2024 1:30 PM J2EE PROGRAMMER [facility] Nitrite UA Negative Negative 08/03/2024 1:30 PM J2EE PROGRAMMER [facility] Leukocyte UA 75 JAQUI/uL(A) Negative 08/03/2024 1:30 PM J2EE PROGRAMMER [facility] RBC UA 0-2 0 - 5 # /hpf 08/03/2024 1:30 PM J2EE PROGRAMMER [facility] WBC UA 6-10(A) 0 - 5 # /hpf 08/03/2024 1:30 PM J2EE PROGRAMMER [facility] Bacteria UA Trace(A) None Seen 08/03/2024 1:30 PM J2EE PROGRAMMER [facility] Squamous Epithelial Cells 0-2 0 - 5 /hpf 08/03/2024 1:30 PM J2EE PROGRAMMER [facility] Budding Yeast Few(A) None seen /hpf 08/03/2024 1:30 PM J2EE PROGRAMMER [facility] Urine URINE SPECIMEN OBTAINED BY CLEAN CATCH PROCEDURE / Unknown Collection / Unknown 08/03/2024 12:49 PM J2EE PROGRAMMER 08/03/2024 12:53 PM J2EE PROGRAMMER Narrative [facility] - 08/03/2024 1:30 PM J2EE PROGRAMMER Pete Olmos MD LAB - URINALYSIS ORD ERABLES [facility] [id number] [place] [address] * XR Lumbar Spine 2 or 3Vw (08/02/2024 2:10 PM J2EE PROGRAMMER) Anatomical Region Laterality Modality Spine Computed Radiogr aphy 08/02/2024 2:26 PM J2EE PROGRAMMER Narrative 08/02/2024 2:29 PM J2EE PROGRAMMER EXAM: XR LUMBAR SPINE 2 OR [...] PTH INTACT W/O CALCIUM (08/02/2024 3:19 AM J2EE PROGRAMMER) PTH Intact 275.2(H) 8.7 - 77.1 pg/mL 08/02/2024 4:05 AM [facility] Blood BLOOD SPECIMEN / Unknown Venipuncture / Unknown 08/02/2024 3:19 AM J2EE PROGRAMMER 08/02/2024 3:30 AM J2EE PROGRAMMER Miguel Angel Mccain MD LAB - CHEMISTRY AIDEN KEVIN [facility] [address] [place] [address] * (ABNORMAL) RENAL FUNCTION PANEL (08/02/2024 3:19 AM J2EE PROGRAMMER) Only the most recent of3 resultswithin the time period is included. Pathologist [facility] Glucose 112(H) 70 - 99 mg/dL 08/02/2024 4:06 AM [facility] Sodium 140 136 - 145 mmol/L 08/02/2024 4:06 AM [facility] Potassium 3.1(L) 3.5 - 5.1 mmol/L 08/02/2024 4:06 AM [facility] Chloride 103 98 - 107 mmol/L 08/02/2024 4:06 AM [facility] CO2 28 22 - 29 mmol/L 08/02/2024 4:06 AM [facility] Calcium 5.8(LL) 8.4 - 10.4 mg/dL 08/02/2024 4:06 AM [facility] Anion Gap 9 6 - 16 mmol/L 08/02/2024 4:06 AM [facility] BUN 4(L) 7 - 26 mg/dL 08/02/2024 4:06 AM [facility] Creatinine 0.75 0.57 - 1.11 mg/dL 08/02/2024 4:06 AM [facility] Albumin 2.4(L) 3.4 - 5.0 gm/dL 08/02/2024 4:06 AM [facility] Phosphorus 2.4(L) 2.5 - 4.5 mg/dL 08/02/2024 4:06 AM J2EE PROGRAMMER [facility] eGFR by CKD-EPI 88(L) >=90 mL/min/1.7 3 m2 08/02/2024 4:06 AM J2EE PROGRAMMER [facility] Blood BLOOD SPECIMEN / Unknown Venipuncture / Unknown 08/02/2024 3:19 AM J2EE PROGRAMMER 08/02/2024 3:30 AM J2EE PROGRAMMER Miguel Angel Mccain MD LAB - CHEMISTRY AIDEN KEVIN Performing Organization Address [facility] de Phone Number [facility] [address] [place] [address] * (ABNORMAL) CALCIUM BLOOD (08/01/2024 3:41 AM J2EE PROGRAMMER) Calcium 5.4(LL) 8.4 - 10.4 mg/dL 08/01/2024 4:21 AM J2EE PROGRAMMER [facility] Blood BLOOD SPECIMEN / Unknown Venipuncture / Unknown 08/01/2024 3:41 AM J2EE PROGRAMMER 08/01/2024 3:52 AM J2EE PROGRAMMER Peewee Esquivel DO LAB - CHEMISTRY AIDEN KEVIN Performing Organization Address [facility] de Phone Number [facility] [address] [place] [address] * (ABNORMAL) HGB HCT PANEL (07/31/2024 7:39 AM J2EE PROGRAMMER) Only the most recent of4 resultswithin the time period is included. Hemoglobin 8.3(L) 11.9 - 15.8 g/dL 07/31/2024 7:47 AM J2EE PROGRAMMER [facility] Hematocrit 23.7(L) 34.8 - 46.1 % 07/31/2024 7:47 AM J2EE PROGRAMMER [facility] Blood BLOOD SPECIMEN / Unknown Venipuncture / Unknown 07/31/2024 7:39 AM J2EE PROGRAMMER 07/31/2024 7:43 AM J2EE PROGRAMMER Cruz Whitfield MD LAB - HEMATOLOGY OR DERABLES Performing Organization Address City/[facility]/ZIP Co de Phone Number [facility] [address] [place], [place] [id number] * TRANSFUSE RED BLOOD CELL LEUKOREDUCED UNIT(S) (07/31/2024 5:59 AM J2EE PROGRAMMER) Peewee Esquivel DO NURSING - BLOOD PROD TRANSFUSION * PREPARE (CROSSMATCH) RBC UNIT(S), 1 Units (07/31/2024 3:35 AM J2EE PROGRAMMER) Only the most recent of2 resultswithin the time period is included. Pathologist [facility] Unit Description AS1 LR PRBC [facility] Unit ABO B [facility] Rh POS [facility] Product Number R02 [facility] Unit Donor # [id number] [facility] Unit Status transfused [facility] Product Code [id number] [facility] Blood Type Barcode 7300 [facility] Expiration Date [id number] D [facility] Blood Bank BLOOD SPECIMEN / Unknown 07/28/2024 8:53 PM J2EE PROGRAMMER Miguel Angel Mccain MD LAB - BLOOD BANK ORD ERABLES Performing Organization Address [facility] de Phone Number [facility] [address] [place] [address] * (ABNORMAL) VITAMIN D 25-HYDROXY (07/31/2024 2:15 AM J2EE PROGRAMMER) [facility] Vitamin D, 25 Hydroxy 12.3(L) 30 - 80 ng/mL 07/31/2024 3:23 AM J2EE PROGRAMMER [facility] Blood BLOOD SPECIMEN / Unknown Venipuncture / Unknown 07/31/2024 2:15 AM J2EE PROGRAMMER 07/31/2024 2:22 AM J2EE PROGRAMMER Narrative [facility] - 07/31/2024 3:23 AM J2EE PROGRAMMER Vitamin D Status: Deficiency <20 ng/mL Insufficiency 20-30 ng/mL Sufficiency 30-100 ng/mL Toxicity >100 ng/mL Miguel Angel Mccain MD LAB - CHEMISTRY ORDE DORITA Performing Organization Address [facility] Co de Phone Number [facility] [address] [place] [address] * (ABNORMAL) FOLATE (07/31/2024 2:15 AM J2EE PROGRAMMER) Folate 5.2(L) 7.0 - 31.4 ng/mL 07/31/2024 3:23 AM J2EE PROGRAMMER [facility] Blood BLOOD SPECIMEN / Unknown Venipuncture / Unknown 07/31/2024 2:15 AM J2EE PROGRAMMER 07/31/2024 2:22 AM J2EE PROGRAMMER Miguel Angel Mccain MD LAB - CHEMISTRY AIDEN KEVIN Performing Organization Address [facility]/ZIP Co de Phone Number [facility] [address] [place] [phone] * (ABNORMAL) VITAMIN B12 (07/31/2024 2:15 AM J2EE PROGRAMMER) Pathologist [facility] Vitamin B12 >2,000(H) 213 - 816 pg/mL 07/31/2024 3:27 AM J2EE PROGRAMMER [facility] Blood BLOOD SPECIMEN / Unknown Venipuncture / Unknown 07/31/2024 2:15 AM J2EE PROGRAMMER 07/31/2024 2:22 AM J2EE PROGRAMMER Miguel Angel Mccain MD LAB - CHEMISTRY AIDEN KEVIN Performing Organization Address [facility] de Phone Number [facility] [address] [place] [phone] * (ABNORMAL) IRON + TRANSFERRIN PANEL (07/31/2024 2:15 AM J2EE PROGRAMMER) Pathologist [facility] Iron 84 40 - 150 ug/dL 07/31/2024 2:55 AM J2EE PROGRAMMER [facility] Transferrin 123(L) 174 - 382 mg/dL 07/31/2024 2:55 AM J2EE PROGRAMMER [facility] TIBC Calculated 154(L) 240 - 450 ug/dL 07/31/2024 2:55 AM J2EE PROGRAMMER [facility] Iron Saturation % 55(H) 20 - 50 % 07/31/2024 2:55 AM J2EE PROGRAMMER [facility] Blood BLOOD SPECIMEN / Unknown Venipuncture / Unknown 07/31/2024 2:15 AM J2EE PROGRAMMER 07/31/2024 2:22 AM J2EE PROGRAMMER Miguel Angel Mccain MD LAB - CHEMISTRY AIDEN KEVIN Performing Organization Address [facility] Co de Phone Number [facility] [address] [place] [address] * TRANSFUSE RED BLOOD CELL LEUKOREDUCED UNIT(S) (07/30/2024 7:41 AM J2EE PROGRAMMER) Peewee Esquivel NURSING - BLOOD PROD TRANSFUSION * BLOOD TYPE VERIFICATION (07/30/2024 2:06 AM J2EE PROGRAMMER) ABO Rh B POS 07/30/2024 4:2 5 AM J2EE PROGRAMMER [facility] Blood Bank BLOOD SPECIMEN / Unknown Venipuncture / Unknown 07/30/2024 2:06 AM J2EE PROGRAMMER 07/30/2024 3:11 AM J2EE PROGRAMMER Yi Grier MD LAB - BLOOD BANK ORD LISY Performing Organization Address [facility] Co de Phone Number [facility] [address] [place] [address] * (ABNORMAL) PT-INR (07/30/2024 2:06 AM J2EE PROGRAMMER) Only the most recent of2 resultswithin the time period is included. PT 19.8(H) 12.1 - 14.8 sec 07/30/2024 3:12 AM J2EE PROGRAMMER [facility] Comment:This result represen ts a significant difference from this patient's most recent previous value. Clinical correlation is therefore recommended. INR 1.7(H) 0.9 - 1.1 07/30/2024 3:12 AM J2EE PROGRAMMER [facility] Blood BLOOD SPECIMEN / Unknown Venipuncture / Unknown 07/30/2024 2:06 AM J2EE PROGRAMMER 07/30/2024 2:27 AM J2EE PROGRAMMER Narrative [facility] - 07/30/2024 3:12 AM J2EE PROGRAMMER Conventional Warfarin Anticoagulant Therapy: INR Reference Range: 2.0-3.0 Intensive Warfarin Anticoagulant Therapy: INR Reference Range: 2.5-3.5 Yi Grier MD LAB - COAGULATION OR DERABLES [facility] [address] [place] [address] * (ABNORMAL) CBC W/O DIFFERENTIAL (07/30/2024 2:06 AM J2EE PROGRAMMER) Only the most recent of3 resultswithin the time period is included. WBC 12.5(H) 4.0 - 10.7 x10E9/L 07/30/2024 2:30 AM [facility] RBC Count 2.06(L) 3.90 - 5.20 x10E12/L 07/30/2024 2:30 AM [facility] Hemoglobin 6.4(L) 11.9 - 15.8 g/dL 07/30/2024 2:30 AM [facility] Hematocrit 18.7(L) 34.8 - 46.1 % 07/30/2024 2:30 AM [facility] MCV 90.8 80.0 - 98.0 fL 07/30/2024 2:30 AM [facility] MCH 31.1 26.7 - 33.6 pg 07/30/2024 2:30 AM [facility] MCHC 34.2 31.7 - 36.3 g/dL 07/30/2024 2:30 AM [facility] RDW-CV 18.1(H) 11.3 - 14.8 % 07/30/2024 2:30 AM [facility] Platelet Count 161 150 - 420 x10E9/L 07/30/2024 2:30 AM [facility] MPV 10.0 7.8 - 11.4 fL 07/30/2024 2:30 AM [facility] Blood BLOOD SPECIMEN / Unknown Venipuncture / Unknown 07/30/2024 2:06 AM J2EE PROGRAMMER 07/30/2024 2:27 AM J2EE PROGRAMMER Yi Grier MD LAB - HEMATOLOGY ORD ERABLES [facility] [address] [place] [address] * US ABDOMEN LIMITED (RUQ) (07/29/2024 2:29 PM J2EE PROGRAMMER) Anatomical Region Laterality Modality Abdomen Ultrasound 07/29/2024 3:34 PM J2EE PROGRAMMER Impressions 07/30/2024 10:05 AM J2EE PROGRAMMER IMPRESSION: 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 Hepatic steatosis with a mass right lobe most consistent with focal fatty sparing. Lack of ability to compare to the outside images result in decreased sensitivity. > Interpreting Provider: Kameron Sprague MD on 07/30/2024 10:05 AM Narrative 07/30/2024 10:05 AM J2EE PROGRAMMER PROCEDURE: US ABDOMEN LIMITED, DATE/TIME OF EXAM: 07/29/2024 2:29 PM, LOCATION [facility] INDICATION: K92.1: Melena ADDITIONAL CLINICAL INFORMATION: [...] DATE/TIME OF EXAM: 07/29/2024 2:29 PM, LOCATION [facility] INDICATION: K92.1: Melena ADDITIONAL CLINICAL INFORMATION: [...] MD ORDERABLES * EGD (07/29/2024 6:57 AM J2EE PROGRAMMER) Report Endoscopy POC _ Patient Name: Sarahy Moore Procedure Date: 07/29/2024 6:57 AM Date of : 1960 Admit Type: Inpatient Age: 64 Gender: Female Attending MD: Cathleen Estrada MD, [id number] _ Procedure: Upper GI endoscopy Indications: Melena [...] GI notes Procedure Code(s): --- Professional --- 26770, Esophagogastroduoden oscopy, flexible, transoral; diagnostic, including collection of specimen(s) by brushing or washing, when performed (separate procedure) --- Technical --- 64160, Esophagogastroduoden oscopy, flexible, transoral; diagnostic, including collection [...] K92.1, Melena (includes Hematochezia) CPT copyright 2020 [employer]. All rights reserved. The codes documented in this report are preliminary and upon sampling theory teacher review may be revised to meet current compliance requirements. Cathleen Estrada MD 07/29/2024 9:00:40 AM Number of Addenda: 0 Note Initiated On: 07/29/2024 6:57 AM [facility] 07/29/2024 6:57 AM J2EE PROGRAMMER Narrative Procedure Note Cathleen Estrada MD [...] GI PROCEDURE ORDERAB LES Performing Organization Address [facility] Co de Phone Number [facility] [place] [address] * CULTURE BLOOD (07/28/2024 10:03 PM J2EE PROGRAMMER) Only the most recent of2 resultswithin the time period is included. Culture No growth day 5 LINO 08/03/2024 1:30 AM J2EE PROGRAMMER [facility] Blood PERIPHERAL BLOOD / Unknown Venipuncture / Unknown 07/28/2024 10:03 PM J2EE PROGRAMMER 07/28/2024 10:07 PM J2EE PROGRAMMER Fabio Santos MD LAB - MICROBIOLOGY O RDERABLES Performing Organization Address [facility] Co de Phone Number [facility] [address] [place] [address], [facility] [phone] * TYPE + SCREEN PANEL (07/28/2024 6:52 PM J2EE PROGRAMMER) ABO Rh B POS 07/28/2024 9:52 PM J2EE PROGRAMMER [facility] Comment:No history; collect retype. Antibody Screen NEG 9:52 PM J2EE PROGRAMMER [facility] Blood Bank BLOOD SPECIMEN / Unknown Venipuncture / Unknown 07/28/2024 6:52 PM J2EE PROGRAMMER 07/28/2024 8:53 PM J2EE PROGRAMMER Fabio Santos MD LAB - BLOOD BANK ORD ERABLES Performing Organization Address [facility] Co de Phone Number [facility] [address] [place] [address], [facility] [phone] from Last 3 Months Advance Directives Documents on File Type Date Recorded Patient Medical Attendant Expl anation Adv Directive/Living Will/POA 08/08/2024 10:51 PM Adv Directive/Living Will/POA 08/01/2024 8:23 PM Adv Directive/Living Will/POA 07/31/2024 7:48 PM * Full Code (Latest Code Status on File) Date Activated Date Inactivated Comments 07/28/2024 3:11 PM 08/07/2024 5:49 PM Care Teams Data Center Technician Relationship Specialty Start Date End Date Priyank Zepeda MD [address] [place] [phone] PCP - General 02/23/22
--- OUTSIDE RECORDS SUMMARY | 2024-09-06 14:19 | XMS_ITS | Clinical Summary ---
Author Organization [facility] Facility Address [address] [address] Care Team Providers Care Day Care Supervisor Name Role Phone Priyank Zepeda MD Primary Care Provider [phone] Allergies Active Allergy Reactions Criticality Noted Date [...] mouth in the morning. 5 Active pancrelipase, Kjs-Exkj-Tpvv, (CREON) 60394-97645 units capsule Take 1 capsule by mouth in the morning and 1 capsule at noon and 1 capsule in the evening. Take with meals. 5 Active Cholecalciferol (Vitamin D3) 1.25 MG (91179 UT) capsule Take 50,000 Units by mouth in the morning and 50,000 Units in the evening. Active multivitamin-ir dv-ioevkogn-nsi ic acid (CENTRUM) chewable tablet Chew 1 [...] 25 Discontinu ed(Therapy completed) ergocalciferol 1.25 MG (79066 UT) capsule Take 50,000 Units by mouth [...] CDT Respiratory Rate 18 05/15/2018 11:00 AM ELECTROPLATER Oxygen Saturation 96% 01/23/2024 1:26 PM CDT Inhaled Oxygen Concentration - - Weight 77.6 kg (171 lb) 01/23/2024 1:26 PM CDT Height 165.1 cm (5' 5 ) 01/23/2024 1:26 PM CDT Body Mass Index 28.46 01/23/2024 1:26 PM CDT Plan of Treatment Upcoming Encounters Date Type Department Care Team (Late st Contact Info) Description 10/22/2024 10:45 AM CDT Office Visit [facility] Evgeny. [address] [place] [phone] Kristofer Ortiz MD [address] [place] [phone] Health Maintenance Due Date Last Done Comments [...] Documents on File Type Date Recorded Patient Pipe Stripper Expl anation Power of Coffee Roaster 10/25/2021 11:10 AM Othe r - POA Power of Coffee Roaster 10/25/2021 11:10 AM Othe r - POA Care Teams Day Care Supervisor Relationship Specialty Start Date End Date Priyank Zepeda MD [address] [place] [address] PCP - General Internal Medicine 05/17/19
--- OUTSIDE RECORDS SUMMARY | 2024-09-06 14:19 | XMS_ITS | Encounter Summary ---
Author Organization [facility] Address [address] [facility] [place] [address] Phone Care Team Providers Care Assistant Account Manager Name Role Phone Priyank Zepeda MD Primary Care Provider [phone] Reason for Visit * Reason Onset Date Comments Medication Management 08/16/2024 Encounter Details Date Type Department Care Team (Late st Contact Info) Description [facility] [address] [place] [address] Eloisa Ruiz, PT Medication Management Social History [...] [facility] Home Health patient was observation at [facility] for low potassium from /08/15/24. A -changes [...] 09/10/2024 2:30 PM CDT Home Care Visit [address] [address] Viola Richard PTA [place] 09/11/2024 1:00 AM CD[facility] [address] [address] Mary Perez RN [place] 09/11/2024 8:45 AM CDT [facility] [address] [place] [address] Moni Mendoza OT 09/12/2024 1:00 AM CDT [facility] [address] [address] Asia Salazar OTA [place] 09/13/2024 1:30 PM CDT [facility] [address] [address] Viola Richard PTA [place] 09/16/2024 1:00 AM CDT [facility] [address] [address] Eloisa Ruiz, PT documented as of this encounter Visit Diagnoses Not on filedocumented in this encounter Care Teams Assistant Account Manager Relationship Specialty Start Date End Date Priyank Zepeda MD [address] [place] [address] PCP - General Internal Medicine 08/08/24 documented as of this encounter
--- OUTSIDE RECORDS SUMMARY | 2024-09-06 14:19 | XMS_ITS | Clinical Summary ---
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 [place] [address] PCP - General 03/11/02
--- OUTSIDE RECORDS SUMMARY | 2024-09-06 14:19 | XMS_ITS | Data Portability ---
Author Organization [facility], [address] [place] [address] Neurology ([place]) Address [address] [address] Care Team Providers Care Mail Clerk Name Role Phone KIERAN CALL Primary Care Provider Assessment Encounter Date Assessment Date Assessment LastModified by Organization Details LastModified Time 10/17/2023 10/17/2023 - Keep already scheduled appointment with GI -secure an appointment with hematology -follow up with your PCP if needed -Call this office with any questions or concerns Not available 10/17/2023 14:57:46 Plan of Treatment [...] 53.3 NG/mL 20.0-5 0.0 high <10 NG/mL (deajn re defic iency ) 10 to 19 NG/mL (mild to moder ate defic iency ) 20 to 50 NG/mL (opti mum level s) 51 to 80 NG/mL (incr eased risk of hyper calci uria) >80 NG/mL (toxi city possi ble) ----- 53.3 Not Available [facility] ([facility] - All Sites [address] [place] [address] [address], [place], [address], 06/05/2024 01:21:09 10/02/19 24 10/02/2023 PTH (para [...] anni rable . ----- 182.5 Not Available [facility] [address], [address], 06/05/2024 01:21:09 10/02/19 24 10/02/2023 phosp horus , serum or plasm a phosphorus 2 mg/dL 2.5-4. 9 low Not Available Test [facility] [address] [place], [address], 06/05/2024 01:21:08 10/02/19 24 10/02/2023 BMP, blood sodium 140 mmol/ L 136-14 5 Not Available [facility] [address], [place], [address], 06/05/2024 01:21:02 10/02/19 24 10/02/2023 BMP, blood potassium 2.9 mmol/ L 3.5-5. 1 low criti benjamin resul t(s) dial d to and read back by: vicky blanton at: 16:07 :22 10/01 by assp. ----- 2.9 Not Available [facility] [address], [place], [address], 06/05/2024 01:21:02 10/02/19 24 10/02/2023 BMP, blood chloride 110 mmol/ L 98-107 high Not Available [facility] [address], [place], [address], 06/05/2024 01:21:02 10/02/19 24 10/02/2023 BMP, blood CO2 24.9 mmol/ L 21.0-3 2.0 Not Available [facility] [address], [place], [address], 06/05/2024 01:21:02 10/02/19 24 10/02/2023 BMP, blood anion gap 5.1 mmol/ L 5.0-15 .0 Not Available [facility] [address], [place], [address], 06/05/2024 01:21:02 10/02/19 24 10/02/2023 BMP, blood glucose 116 mg/dL 74-106 high Not Available [place] [address], [place], [address], 06/05/2024 01:21:02 10/02/19 24 10/02/2023 BMP, blood BUN 11 mg/dL 7-18 Not Available [place] [address], [place], [address], 06/05/2024 01:21:02 10/02/19 24 10/02/2023 BMP, blood creatinine 0.91 mg/dL 0.55-1 .02 Not Available [facility] [address], [place], [address], 06/05/2024 01:21:02 10/02/19 24 10/02/2023 BMP, blood calcium 7.8 mg/dL 8.5-10 .1 low Not Available [facility] [address], [place], [address], 06/05/2024 01:21:02 10/02/19 24 10/02/2023 BMP, blood eGFR 70 mL/mi n/1.7 3_M2 >90 low Not Available [place] [address] [facility] [address], [place], [address], 06/05/2024 01:21:02 10/02/19 24 10/02/2023 BMP, blood calculated osmolality 290 mOsm/ kg refer ence range not estab lishe d ----- 290 Not Available [facility] [address], [place], [address], 06/05/2024 01:21:02 10/02/19 24 10/02/2023 BMP, blood [...] mL/mi n/1.7 3 m2 ----- Not Available [facility] [address], [place], [address], 06/05/2024 01:21:02 01/18/20 24 12/07/2022 imagi ng/di [...] Name and Address Organization Details Recorded Time 500308 adhesive tape environme nt,medica tion rash Not available Not available 07/03/20232013 53955 UNK React ion: Rash; Comme nt: Adhes messi Tape React ion Date: 27 Jul 2012 ; Not Available Not Available Not Available 535117 Cipro medicatio n Not available Not available Not available 07/03/20232013 64575 3 RxNorm Comme nt: React ion Date: 01 Jan 2013 ; Not Available Not Available Not Available 070184 succinylc holine chloride medicatio n Not available Not available Not available 07/03/20232015 3565 RxNorm Not Available Not Available Not Available Medications Name Sig Start Date Stop Date Status Note LastModified by Organization Details LastModified Time Prescription - New active Counsellors: MEGHAN NIMESH (Audiology) , Sergey n Form [...] /min 123 mm[Hg] 74 mm[Hg] Tina cuello [facility] 4 14:41:31 Social History Question Answer Notes [...] Do You Have A Medical Power Of Coding And Reimbursement Specialist? Yes [id number] Information not available 10/16/2023 What [...] SNOMED-CT Code Diagnosis ICD10 Code Diagnosis Note [id number] DO Catia Melendrez [facility] ([place]) [address] [place] [address] 10/17/2023 14:31:01 10/18/2023 15:51:26 Hospital inpatient stay within past 30 days [id number] 106 Z76.89 Health Concerns Section Related Observation LastModified by Organization Rayray ls LastModified Time None Recorded Concern Status LastModified by Organization Details LastModified Time None Recorded Advance Directives Directive Y: Payers Encounter Date Sequence Insurance Name Policy Number Policy Juares Covered Member ID Juares Member ID Guarantor Name 10/17/2023 1 [facility] ON OR AFTER 12/03/20 (MEDICAID REPLACEMENT - HMO) Louise Griffithjordin [id number] Louise Bailey Teresa Notes Date Note Type [...] appointment scheduled for November 01 with GI FORESTRY SUPERVISOR for consultation. She is eating and drinking well. She denies n/v. YULISSA MARTINEZ, SERVER DEVELOPER-C [address] [place] [address], [phone], [facility] 10/17/2023 14:58:51 OBGyn Episode No OBEpisode recorded.
--- OUTSIDE RECORDS SUMMARY | 2024-09-06 14:19 | XMS_ITS | Encounter Summary ---
Author Organization [facility] Address [address] [place] [address] Care Team Providers Care Licensed Mental Health Professional Name Role Phone Priyank Zepeda MD Primary Care Provider [phone] Encounter Details Date Type Department Care Team (Late st Contact Info) Description 10/03/2023 Hospital Follow-up Call [facility] Cardiovascular Care Unit [address] [place] [address] Chelsea Bishop RN Social History Tobacco Use Types Packs/Day Years Used Date Smoking Tobacco: Never [facility] Utilities Answer Date Recorded In the past 12 months has e electric, gas, oil, or water [employer] threatened to shut off services in your [...] any time in the past 12 m [facility], were you homeless or living in a intermediate (including now)? No 09/28/2023 Comments Unknown Sex [...] on filedocumented in this encounter Care Teams Licensed Mental Health Professional Relationship Specialty Start Date End Date Priyank Zepeda MD [address] [place] [address] PCP - General INTERNAL MEDICINE 09/19/19 documented as of this encounter
--- OUTSIDE RECORDS SUMMARY | 2024-09-06 14:19 | XMS_ITS | Clinical Summary ---
Author Organization [facility] Address [address] [place] [address] Care Team Providers Care Prop Sawyer Name Role Phone Priyank Zepeda MD Primary Care Provider [phone] Allergies Active Allergy Reactions Criticality Noted Date Comments Ciprofloxacin Rash Low 11/17/2023 Tape Redness 09/28/2023 Medications calcitriol (ROCALTROL) 0.5 MCG capsule Take 1 capsule (0.5 mcg total) by mouth daily. Active metoprolol succinate ER (TOPROL-XL) 50 MG 24 hr tablet Take 1 tablet (50 mg total) by mouth daily. Active multivitamin (TAB-A-SDUHIR/BETA CAROTENE) tablet Take 1 tablet by mouth [...] Packs/Day Years Used Date Smoking Tobacco: Never [facility] [employer] Answer Date Recorded In the past 12 months has e [employer], [employer], oil, or water [employer] threatened to shut off services in your [...] in the past [address] [facility], were you homeless or living in a retirement (including now)? No 11/17/2023 Comments Unknown Sex [...] 2024 03/27/2023, 03/06/2022, 09/13/2021, Additional history exists Dexa Scan (General) 2024 [...] Most Recently Relevant to Health Maintenance Insurance AULT Advance Directives * Full Code (Latest Code Status on File) Date Activated Date Inactivated Comments 11/17/2023 1:12 AM 11/18/2023 5:01 PM * Full Code Date Activated Date Inactivated Comments 09/28/2023 1:27 AM 10/02/2023 3:59 PM Care Teams Prop Sawyer Relationship Specialty Start Date End Date Priyank Zepeda MD [address] [place] [address] PCP - General INTERNAL MEDICINE 09/19/19
[2024-09-06 14:32] LABS: Basophils Absolute Auto 0.04 K/mm3 (0.00-0.10); Basophils Percent Auto 0.8 % (0.0-1.0); Eosinophils Absolute Auto 0.14 K/mm3 (0.02-0.50); Eosinophils Percent Auto 2.9 % (1.0-6.0); Hematocrit 33.4 % (35.0-42.0); Hemoglobin 10.4 g/dL (11.7-13.8); Immature Granulocyte Absolute 0.01 K/mm3 (0.00-0.00); Immature Granulocyte Percent A 0.2 % (0.0-0.0); Lymphocytes Absolute Auto 0.57 K/mm3 (1.10-4.50); Lymphocytes Percent Auto 11.8 % (18.0-42.0); Mean Corpuscular HGB Conc 31.1 g/dL (32-36); Mean Corpuscular Hemoglobin 30.2 pg (27.0-31.0); Mean Corpuscular Volume 97.1 fL (78.0-102.0); Mean Platelet Volume 9.9 fl (9.2-11.8); Monocytes Absolute Auto 0.45 K/mm3 (0.10-0.90); Monocytes Percent Auto 9.3 % (2.0-11.0); Neutrophils Absolute Auto 3.63 K/mm3 (1.70-7.20); Platelet Count Result 227 K/mm3 (150-420); Red Blood Count 3.44 M/mm3 (4.20-5.40); Red Cell Distribution Width 18.7 % (11.6-14.4); White Blood Count 4.8 K/mm3 (4.8-10.8)
[2024-09-06 14:50] LABS: Alanine Aminotransferase 41 U/L (14-59); Albumin Level 2.5 g/dL (3.4-5.0); Alkaline Phosphatase 164 U/L (46-116); Anion Gap 7 mmol/L (4-12); Aspartate Amino Transferase 58 U/L (15-37); Bilirubin,Total 0.6 mg/dL (0.00-1.00); Blood Urea Nitrogen 11 mg/dL (7-18); Calcium 8.1 mg/dL (8.5-10.1); Carbon Dioxide 26 mmol/L (21-32); Chloride 109 mmol/L (98-108); Estimated Glomerular Filt Rate > 60; Glucose 95 mg/dL (70-99); Osmolality Calculated 293 mOsm/kg (285-295); Potassium 4.8 mmol/L (3.5-5.1); Sodium 142 mmol/L (136-145); Total Protein 6.7 g/dL (6.4-8.2)
== END 2024-09-06 14:12 | disposition home or self-care (01) ==
LOC: CHSLAB 14:15
PROVIDERS: PCP Internal Medicine; Visit Provider Internal Medicine
DX: N36.8 Other specified disorders of urethra (principal); R10.30 Lower abdominal pain, unspecified; R18.8 Other ascites; R16.1 Splenomegaly, not elsewhere classified; M48.54XA Collapsed vertebra, not elsewhere classified, thoracic region, initial encounter for fracture
CPT/HCPCS: 36415; 74178; 80053; 85025; Q9967

== ENCOUNTER 2024-10-08 10:25 | Outpatient (CLI) | payer OTHER, SELFPAY ==
[2024-10-08 10:35] VITALS: BP 127/75; PULSE 86; RESP 16; TEMP 36.5; O2SAT 97
[2024-10-08 10:37] VITALS: BMI 32.3
[2024-10-08] MEDS: IRON SUCROSE COMPLEX 300 MG in SODIUM CHLORIDE 0.9% IV 235 ML 125 MG IVPB (10:45)
[2024-10-08 10:50] LABS: Hematocrit 33.3 % (35.0-42.0); Hemoglobin 10.2 g/dL (11.7-13.8); Mean Corpuscular HGB Conc 30.6 g/dL (32-36); Mean Corpuscular Hemoglobin 28.6 pg (27.0-31.0); Mean Corpuscular Volume 93.3 fL (78.0-102.0); Platelet Count Result 138 K/mm3 (150-420); Red Blood Count 3.57 M/mm3 (4.20-5.40); Red Cell Distribution Width 15.8 % (11.6-14.4); White Blood Count 3.9 K/mm3 (4.8-10.8)
[2024-10-08 11:24] LABS: Band Neutrophils Percent 0 % (0-6); Basophils Absolute Manual 0.03 K/mm3 (0-0.1); Basophils Percent Manual 1 % (0-1); Eosinophils Absolute Manual 0.15 K/mm3 (0.02-0.50); Eosinophils Percent Manual 4 % (1-6); Lymphocytes Absolute Manual 0.85 K/mm3 (1.1-4.5); Lymphocytes Percent Manual 22 % (18-44); Monocytes Absolute Manual 0.35 K/mm3 (0.1-0.90); Monocytes Percent Manual 9 % (3-9); Neutrophils Absolute Manual 2.49 K/mm3 (1.7-7.2); Neutrophils Percent Manual 64 % (46-73); Platelet Estimate Adequate (Adequate); Total Cells Counted 100
--- OUTSIDE RECORDS SUMMARY | 2024-10-08 11:25 | XMS_ITS | Clinical Summary ---
Author Organization [facility] Address [address] [address] Phone Care Team Providers Care Infusion Pharmacist Name Role Phone Priyank Zepeda MD Primary Care Provider [phone] Allergies No known active allergies Medications calcium [...] tablets by mouth (40MEQ), twice a day Active triamcinolone (KENALOG) 0.1 % Cream Apply 0.1 % 2 times daily. Apply a thin layer to the affected areas by topical route 2 times per day Active Pancrelipase, Tbz-Kgmw-Louf, (CREON PO) Take 24,000 Units by mouth 3 times daily (with meals). Take 1 capsule by mouth 3 times daily with meals Active spironolactone (ALDACTONE) 25 MG Tablet Take 25 mg by mouth daily. Active BETA CAROTENE PO Take 7,500 mcg by mouth daily. Active Cyanocobalamin (VITAMIN B12 PO) Take 2,500 mcg by mouth daily. Active pancrelipase, lipase-protease- amylase, (Creon) [address] Particles Take 1 Capsule by mouth 3 times daily. 3 times daily with meals Active triamcinolone (KENALOG) 0.1 % Cream Apply 1 Application 2 times daily. Apply a thin layer to the affected areas (bilateral feet). Active albuterol (ProAir HFA) 108 (90 Base) MCG/ACT Aerosol Solution take 2 Puffs by inhalation every 4 hours as needed for Wheezing. Active Encounters Date Type Department Care Team Description 09/16/2024 1:30 PM CDT Home Care Visit [address] [address] Eloisa Ruiz, PT PT - OASIS DISCHARGE 09/15/2024 Nurse Triage [address] [address] Virginia Andres, RN Blood in Stools 09/12/2024 2:00 PM CDT Home Care Visit [address] [address] Viola Richard, ROLL DOUGH DIVIDER PT - HOME VISIT 09/12/2024 10:00 AM CDT Home Care Visit [address] [address] Mary Perez, RN SN - DISCIPLINE DISCHARGE 09/12/2024 Travel 09/11/2024 1:30 PM CDT Home Care Visit [address] [address] Moni Mendoza OT OT - DISCIPLINE DISCHARGE 09/10/2024 2:30 PM CDT Home Care Visit [address] [address] Viola Richard, ROLL DOUGH DIVIDER PT - HOME VISIT 09/06/2024 10:00 AM CDT Home Care Visit [address] [address] Asia Salazar, BARRY OT - HOME VISIT 09/06/2024 Home Care Visit [address] [address] Asia Salazar, BARRY CASE COMMUNICATION 09/04/2024 2:00 PM CDT Home Care Visit [address] [address] Mary Perez, RN SN - LAB 09/04/2024 10:30 AM CDT Home Care Visit [address] [address] Viola Richard, ROLL DOUGH DIVIDER PT - HOME VISIT 09/04/2024 Lab Requisition [facility] [address] [place] [address] Priyank Zepeda MD Secondary hyperparathyroidism of renal origin (HCC); Vitamin D deficiency, unspecified; Hypothyroidism, unspecified 09/04/2024 Travel 09/03/2024 12:30 PM CDT Home Care Visit [address] [address] Asia Salazar, BARRY OT - HOME VISIT 09/03/2024 11:00 AM CDT Home Care Visit [address] [address] Lawanda Fragoso LPN SN - HOME VISIT 09/02/2024 12:00 PM CDT Home Care Visit [address] [address] Eloisa Ruiz, PT PT - REASSESSMENT 08/30/2024 10:30 AM CDT Home Care Visit [address] [address] Asia Salazar, HOSPICE ART THERAPIST OT - HOME VISIT 08/29/2024 9:30 AM CDT Home Care Visit [address] [address] Viola Richard, ROLL DOUGH DIVIDER PT - HOME VISIT 08/29/2024 Travel 08/28/2024 9:30 AM CDT Home Care Visit [address] [address] Asia Salazar, BARRY OT - HOME VISIT 08/27/2024 1:00 PM CDT Home Care Visit [address] [address] Mary Perez RN SN - HOME VISIT 08/27/2024 11:00 AM CDT Home Care Visit [address] [address] Viola Richard, ROLL DOUGH DIVIDER PT - HOME VISIT 08/27/2024 Travel 08/23/2024 12:00 PM CDT Home Care Visit [address] [address] Asia Salazar, BARRY OT - HOME VISIT 08/22/2024 1:00 PM CDT Home Care Visit [address] [address] Viola Richard, ROLL DOUGH DIVIDER PT - HOME VISIT 08/20/2024 12:00 PM CDT Home Care Visit [address] [address] Mary Perez RN SN - HOME HEALTH INITIAL EVALUATION 08/20/2024 11:15 AM CDT Home Care Visit [address] [address] Moni Mendoza, OT OT - HOME VISIT 08/20/2024 10:00 AM CDT Home Care Visit [address] [address] Viola Richard, ROLL DOUGH DIVIDER PT - HOME VISIT 08/20/2024 Travel 08/18/2024 Home Care Visit [address] [address] Eloisa Ruiz, PT CARE CONFERENCE 08/16/2024 1:30 PM CDT Home Care Visit [address] [address] Eloisa Ruiz, PT PT - HOME VISIT 08/16/2024 12:45 PM CDT Home Care Visit [address] [address] Moni Mendoza, OT OT - INITIAL EVALUATION 08/16/[address] [address] Eloisa Ruiz, PT Medication Management 08/14/2024 Home Care Visit [address] [address] Eloisa Ruiz, PT TELEPHONE ENCOUNTER 08/14/2024 Home Care Visit [address] [address] Eloisa Ruiz, PT TELEPHONE ENCOUNTER 08/13/2024 2:30 PM CDT Home Care Visit [address] [address] Eloisa Ruiz, PT PT - OASIS START OF CARE 08/13/[address] [address] Eloisa Ruiz, PT Medication Management 08/13/2024 Plan of Care Documentation [address] [address] from Last 3 Months Social History Tobacco Use Types Packs/Day Years Used Date Smoking Tobacco: Never Assessed Comments Unknown Sex and Gender Information Value Date Recorded Sex Assigned at Not on file Legal Sex Female 11:40 PM CDT Gender Identity Not on file Sexual Orientation Not on file Last Filed Vital Signs Vital Sign Reading Time Taken Comments Blood Pressure 110/78 09/16/2024 1:41 PM CDT Pulse 78 09/16/2024 1:41 PM CDT Temperature 36.5 C (97.7 F) 09/16/2024 1:41 PM CDT Respiratory Rate 16 09/16/2024 1:41 PM CDT Oxygen Saturation 97% 09/16/2024 1:41 PM CDT Inhaled Oxygen Concentration - - Weight 77.6 kg (171 lb) 09/16/2024 1:41 PM CDT Height 165.1 cm (5' 5 ) 08/16/2024 1:33 PM CDT Body Mass Index 28.46 08/16/2024 1:33 PM CDT Plan of Treatment Health Maintenance Due [...] HYDROX 19.0 ng/mL 09/04/2024 6:55 PM CDT [facility] Blood No Phlebotomy Charged / Unknown 09/04/2024 4:55 PM CDT 09/04/2024 6:06 PM CDT Narrative [facility] - 09/04/2024 6:55 PM CDT Published reference ranges for Vitamin D vary depending on time and place and method of testing, and on patient's age, sex, ethnicity and levels of other measured analytes such as parathormone, calcium and phosphorus. The result should be evaluated in conjunction with clinical findings and suspicions. [employer] of [employer] and Endocrine Clinical Practice Guidelines: Status Vitamin D levels (ng/mL) Deficient <=20 At risk of inadequacy 21-29 Sufficient 30-100 Centers of Disease Control and Prevention Guidelines: Status Vitamin D levels (ng/mL) Deficient <13 At risk of inadequacy 13-19 Sufficient 20-50 Possibly harmful >50 References: [employer] of Medicine, 2010 Dietary reference intakes for calcium and vitamin D. [place]: The National Academies Press. Yo M, Blayne N, Sara LEES, et al., Evaluation, treatment, and prevention of Vitamin D deficiency: an Endocrinology Clinical Practice Guideline. JCEM 2011 96: 7 6324-3616. Kiet A, Dario C, Yemi D, et al., Vitamin D Status: [place], , [facility] data brief, no. 59, MD Lance: National Center for Health Statistics. 2011. us Priyank Zepeda MD CHEMISTRY ORDERABLES Final Re sult [facility] [address] [place] [address] * (ABNORMAL) CBC WITH AUTO DIFFERENTIAL (09/04/2024 4:55 PM CDT) WBC 4.62 4.00 - 12.00 10(3)/mcL 09/04/2024 6:44 PM CDT [facility] RBC 3.31(L) 3.80 - 5.30 10(6)/mcL 09/04/2024 6:44 PM CDT [facility] HEMOGLOBIN (HGB) 10.2(L) 12.0 - 15.8 g/dL 09/04/2024 6:44 PM CDT [facility] HEMATOCRIT (HCT) 32.3(L) 36.0 - 47.0 % 09/04/2024 6:[address] [facility] MCV 97.6(H) 82.0 - 96.0 fL 09/04/2024 6:[address] MCH 30.8 26.0 - 34.0 pg 09/04/2024 6:[address] [facility] MCHC 31.6 31.0 - 36.0 g/dL 09/04/2024 6:[address] [facility] PLATELET COUNT 240 140 - 440 10(3)/mcL 09/04/2024 6:44 PM CDT [facility] RDW 18.8(H) 11.8 - 15.5 % 09/04/2024 6:44 PM CDT [facility] MPV 9.8 9.7 - 12.4 fL 09/04/2024 6:[address] NEUTROPHILS 75.4(H) 47.0 - 73.0 % 09/04/2024 6:[address] [facility] LYMPHOCYTES 11.9(L) 18.0 - 42.0 % 09/04/2024 6:[address] [facility] MONOCYTES 9.3 4.0 - 12.0 % 09/04/2024 6:44 PM CDT [facility] EOSINOPHILS 2.8 0.0 - 5.0 % 09/04/2024 6:[address] [facility] BASOPHILS 0.6 0.0 - 1.0 % 09/04/2024 6:44 PM CDT [facility] ABSOLUTE NEUTROPHILS 3.48 1.60 - 7.70 10(3)/mcL 09/04/2024 6:[address] [facility] ABSOLUTE LYMPHOCYTES 0.55(L) 1.30 - 3.20 10(3)/mcL 09/04/2024 6:[address] [facility] ABSOLUTE MONOCYTES 0.43 0.20 - 1.00 10(3)/mcL 09/04/2024 6:[address] [facility] ABSOLUTE EOSINOPHIL 0.13 0.00 - 0.40 10(3)/mcL 09/04/2024 6:44 PM CDT [facility] ABSOLUTE BASOPHILS 0.03 0.00 - 0.10 10(3)/mcL 09/04/2024 6:[address] [facility] NRBC PER 100 WBC 0 09/05/19 6:[address] [facility] RESULTS ARE CONSISTENT WITH PERIPHERAL SMEAR REVIEW Yes 09/04/2024 6:[address] [facility] RBC MORPHOLOGY CONSISTENT WITH INDICES Yes 09/04/2024 6:[address] [facility] Blood No Phlebotomy Charged / Unknown 09/04/2024 4:55 PM CDT 09/04/2024 6:06 PM CDT us Priyank Zepeda MD HEMATOLOGY ORDERABLES Final R esult Performing Organization Address City/[facility]/ZIP Co de Phone Number [facility] [address] [place] [address] * (ABNORMAL) THYROID STIMULATING HORMONE (TSH) (09/04/2024 4:55 PM CDT) [facility] TSH 9.593(H) 0.300 - 5.000 mIU/L 09/04/2024 6:[address] [facility] Blood No Phlebotomy Charged / Unknown 09/04/2024 4:55 PM CDT 09/04/2024 6:06 PM CDT us Priyank Zepeda MD CHEMISTRY ORDERABLES Final Re sult [facility] [address] [place] [address] * (ABNORMAL) PHOSPHORUS (PO4) (09/04/2024 4:55 PM CDT) PHOSPHORUS 2.3(L) 2.5 - 4.5 mg/dL 09/04/2024 6:[address] [facility] Blood No Phlebotomy Charged / Unknown 09/04/2024 4:55 PM CDT 09/04/2024 6:06 PM CDT us Priyank Zepeda MD CHEMISTRY ORDERABLES Final Re sult [facility] [address] [place] [address] * (ABNORMAL) CMP (COMPREHENSIVE METABOLIC PANEL) (09/04/2024 4:55 PM CDT) Pathologist [facility] SODIUM 143 136 - 145 mmol/L 09/04/2024 6:39 PM CDT [facility] POTASSIUM 4.0 3.5 - 5.1 mmol/L 09/04/2024 6:39 PM CDT [facility] CHLORIDE 114(H) 98 - 107 mmol/L 09/04/2024 6:39 PM CDT [facility] CO2, VENOUS 23 22 - 30 mmol/L 09/04/2024 6:39 PM CDT [facility] ANION GAP 10.0 <18.0 mmol/L 09/04/2024 6:39 PM CDT [facility] GLUCOSE 87 70 - 99 mg/dL 09/04/2024 6:39 PM CDT [facility] BUN 10 10 - 20 mg/dL 09/04/2024 6:39 PM CDT [facility] CREATININE, BLOOD 0.77 0.60 - 1.00 mg/dL 09/04/2024 6:39 PM CDT [facility] BUN/CREATININE RATIO 13 12 - 20 ratio 09/04/2024 6:39 PM CDT [facility] TOTAL PROTEIN 6.8 6.0 - 8.0 g/dL 09/04/2024 6:39 PM CDT [facility] ALBUMIN 2.7(L) 3.5 - 5.0 g/dL 09/04/2024 6:[address] [facility] A/G RATIO 0.7(L) 1.0 - 2.2 09/04/2024 6:[address] [facility] CALCIUM 8.2(L) 8.7 - 10.5 mg/dL 09/04/2024 6:[address] [facility] T BILI 0.4 0.2 - 1.2 mg/dL 09/04/2024 6:[address] [facility] SGOT (AST) 52(H) <43 U/L 09/04/2024 6:[address] [facility] SGPT (ALT) 37 <56 U/L 09/04/2024 6:[address] [facility] ALKALINE PHOSPHATASE 137 40 - 150 U/L 09/04/2024 6:[address] [facility] GFR, ESTIMATED >60 >=60 09/04/2024 6:[address] [facility] Comment: Creatinine Clearance is the preferred criteria for selecting drug dose adjustments in renally impaired patients. The GFR is provided as additional pertinent clinical information. GFR is reported in mL/min/1.73 sq m. Calculation based on the Chronic Kidney Disease Epidemiology Collaboration (CKD- EPI) equation refit without adjustment for race. GFR, EST. >60 >=60 025 6:[address] [facility] GFR, EST. NONAFRICAN >60 >=60 09/04/2024 6:39 PM CDT [facility] Blood No Phlebotomy Charged / Unknown 09/04/2024 4:55 PM CDT 09/04/2024 6:06 PM CDT us Priyank Zepdea MD CHEMISTRY ORDERABLES Final Re sult [facility] [address] [place] [address] * (ABNORMAL) PREALBUMIN (PAB) (09/04/2024 4:55 PM CDT) PRE ALBUMIN 13(L) 14 - 37 mg/dL 09/05/2024 6:00 PM CDT [facility] Blood No Phlebotomy Charged / Unknown 09/04/2024 4:55 PM CDT 09/04/2024 6:06 PM CDT us Priyank Zepeda MD CHEMISTRY ORDERABLES Final Re sult [facility] [address] [place] [address], from Last 3 Months Insurance MEDICAID [employer] Advance Directives Documents on File Type Date Recorded Patient Make Up Artist Expl anation Power of Watermaster for Health Care 08/26/2024 9:18 AM POA-HC Power of Watermaster for Health Care 08/26/2024 9:18 AM POA-HC Power of Watermaster for Health Care 08/26/2024 9:13 AM POA-HC Power of Watermaster for Health Care 08/26/2024 9:08 AM POA-HC Power of Watermaster for Health Care 08/14/2024 12:10 PM POA HC 07/30/2024 * Full Code (Latest Code Status on File) Date Activated Date Inactivated Comments 08/13/2024 10:26 PM Care Teams Infusion Pharmacist Relationship Specialty Start Date End Date Priyank Zepeda MD [address] [place] [address] PCP - General Internal Medicine 08/08/24
--- OUTSIDE RECORDS SUMMARY | 2024-10-08 11:25 | XMS_ITS ---
Author Organization Unknown Address [address] [place] [phone] Phone Care Team Providers Care Pinner [employer]ards Name Role Phone GARFIELD Ashby Attending Unavailable [...] em Smoking History Never smoker (Never Smoked) 153295505 SNOMED CT Sex Female Vital Signs Vital Sign Value Unit [place] Value [place] Unit Date/Time Recent/Initial? Code Code System Body Mass Index 30.45 kg/m2 11/13/2023 14:43 Initial 80358 -5 INC Systolic Blood Pressure 136 mm[Hg] 12/14/2023 08:17 Initial 8480- 6 LOINC Diastolic Blood Pressure 78 mm[Hg] 12/14/2023 08:17 Initial 8462- 4 INC Body Surface Area 1.95 m2 11/13/2023 14:43 Initial 3140- 1 LOINC Height 165.100 0 cm 65.00 in 11/13/2023 14:43 Initial 8302- 2 INC O2 Saturation 99 % 2023 08:17 Initial 01696 -5 INC Pulse 57.0 /min 12/14/2023 08:17 Initial 8867- 4 LOINC Respiration 20 /min 12/14/19 08:17 Initial 9279- 1 LOINC Temperature 36.2 Kait 97.1 F 12/14/19 24 08:17 Initial 8310- 5 LOINC Weight 83.01 kg 183.00 lbs 11/13/2023 14:43 Initial 86033 -7 [facility] Medications Medication Start Date End Date Route Frequency Dose Code Code System Medication Instructions Home Meds Vitamin B12 1000 MCG Sublingual Tablet 12/14/2023 Unknown SUBLINGUAL ONCE A DAY [address] 1000 MCG SUBLINGUAL ONCE A DAY Tums Extra Strength 750 MG Oral Tablet, Chewable 12/14/2023 Unknown ORAL NEEDED 750 MG 8201443 RxNorm TAKE 750 MG ORAL NEEDED Amitriptyline 10MG Oral Tablet 12/14/2023 Unknown ORAL TWICE A DAY 10 MILLIGRA MS 133685 RxNorm TAKE 10 MILLIGRAMS ORAL TWICE A DAY Calcitriol 0.5MCG Oral Capsule, Liquid Filled 12/14/2023 Unknown ORAL TWICE A DAY 2 CAPSULE 159772 RxNorm TAKE 2 CAPSULE ORAL TWICE A DAY Calcium Citrate Powder 12/14/2023 [address] ROUTE NOT APPLICABLE 1 unit(s) RxNorm 1 EACH ROUTE NOT APPLICABLE Eliquis 5MG Oral Tablet 12/14/2023 12/14/19 24 ORAL TWICE A DAY 5 MILLIGRA MS 3660295 RxNorm TAKE 5 MILLIGRAMS ORAL TWICE A DAY FLUoxetine 20MG/5ML Oral Solution 12/14/2023 Unknown ORAL TWICE A DAY 752105 RxNorm TAKE mL ORAL TWICE A DAY Iron 325MG Oral Tablet 12/14/2023 Unknown ORAL THREE TIMES A DAY 325 MILLIGRA MS 354837 RxNorm TAKE 325 MILLIGRAMS ORAL THREE TIMES A DAY Levothyroxine 125MCG Oral Tablet 12/14/2023 Unknown ORAL ONCE A DAY 0.5 TABLET 171910 RxNorm TAKE 0.5 TABLET ORAL ONCE A DAY Loratadine 10MG Oral Tablet 12/14/2023 Unknown ORAL NEEDED 10 MILLIGRA MS 267932 RxNorm TAKE 10 MILLIGRAMS ORAL NEEDED Metoprolol Succinate 50MG Oral Tablet, Extended Release 12/14/2023 Unknown ORAL ONCE A DAY 50 MILLIGRA MS 987811 RxNorm TAKE 50 MILLIGRAMS ORAL ONCE A DAY Potassium Chloride 20MEQ Oral Tablet, Extended Release 12/14/2023 Unknown ORAL TWICE A DAY 20 MEQ 2527452 RxNorm TAKE 20 MEQ ORAL TWICE A DAY Sodium Bicarbonate 650MG Oral Tablet 12/14/2023 Unknown ORAL THREE TIMES A DAY 650 MILLIGRA MS 976905 RxNorm TAKE 650 MILLIGRAMS ORAL THREE TIMES A DAY Tab-A-Ezio [id number]-[id number] U-6MCG Oral Tablet 12/14/2023 Unknown ORAL ONCE A DAY 1 unit(s) 761279 RxNorm TAKE 1 EACH ORAL ONCE A [...] Code Syste m Vocal cord nodule completed 92097668 SNOMEDC T Fracture of tibia completed 12267375 SNOMEDC T Volvulus completed 5251456 SNOMEDCT APPENDECTOMY completed 77439783 SNOMEDCT Removal of kidney stone completed 0483416 S NOMEDCT Anesthesia for lower intesti nal endoscopic procedures, endoscope introduce 12/14/2023 completed 03449 CPT Gastric bypass completed 085461760 SNOMEDCT History of parathyroidectomy completed 2616636 58276381 SNOMEDCT Colonoscopy, flexible; with biopsy, single or multiple 12/14/2023 completed 36000 CPT Problems Problem Start Date Resolved Date Status Code Code System CHRONIC KIDNEY DISEASE, STAG E 3A active 394644596 SNOMED-CT Allergies and Adverse Reactions Allergy Substance Reaction Severity Start Date Concern Status Code Code System ADHESIVE Itching (SNOMED-CT: 467737069) Active SUCCINYLCHOLINE CHLORIDE HARD TO WAKE UP (SNOMED-CT: null) Active 3565 RxNorm CIPRO REDNESS IV ONLY (SNOMED-CT: null) Mild Active 148986 RxNorm No Known Drug Allergies Active 123548581 SNOMED-CT Plan of Treatment Colonoscopy 12/14/2023 Encounters Encounter Diagnosis Start Date Code Code Sys tem Noninfective gastroenteritis and colitis, unspecified 12/14/2023 SNOMED-CT Personal Care Team Section Performer Name Performer Role Active Date Inactive KIERAN Gilbert PCP - Primary care physician 2024-04-16
--- OUTSIDE RECORDS SUMMARY | 2024-10-08 11:25 | XMS_ITS | Encounter Summary ---
Author Organization [facility] Address [address] [place] [address] Phone Care Team Providers Care Flight Follower Name Role Phone Priyank Zepeda MD Primary Care Provider [phone] Encounter Details Date Type Department Care Team (Late Contact Info) Description 01/03/2020 Orders Only [facility]. [address] [place] [phone] Kristofer Ortiz MD [address] [place] [address] Chronic kidney disease stage 3 [...] Description 10/22/2024 10:45 AM CDT Office Visit [facility]. [address] [place] [phone] Kristofer Ortiz MD [address] [place] [address] [address] documented as of this encounter Visit Diagnoses Diagnosis Chronic kidney disease stage 3 (HCC) documented in this encounter Care Teams Flight Follower Relationship Specialty Start Date End Date Priyank Zepeda MD [address] [place] [address] PCP - General Internal Medicine 05/17/19 documented as of this encounter
--- OUTSIDE RECORDS SUMMARY | 2024-10-08 11:25 | XMS_ITS | Clinical Summary ---
Author Organization [facility] Address [address] [place] [address] Care Team Providers Care Metal Mold Dresser Name Role Phone Priyank Zepeda MD Primary Care Provider [phone] Allergies Active Allergy Reactions Criticality Noted Date [...] Packs/Day Years Used Date Smoking Tobacco: Never [facility] [employer]Grabberities Answer Date Recorded In the past 12 months has e [employer], [employer], oil, or water [employer] threatened to shut off services in your [...] any time in the past 12 m [facility], were you homeless or living in [...] Date Last Done Comments Hepatitis C 1977 Pneumococcal Vaccine: 50+ Years (1 of 1 - PCV) 2009 Colorectal Cancer Screening FIT/FOBT (1 Year) 08/06/2022 08/06/2021 Mammogram Screening 11/18/2022 11/18/2020, 0 COVID-19 Vaccine ( season) 2024 03/27/2023, 03/06/2022, 09/13/2021, Additional history exists Dexa Scan (General) 2024 DTaP, Tdap and Td Vaccines (2 [...] Most Recently Relevant to Health Maintenance Insurance [employer] Advance Directives * Full Code (Latest Code Status on File) Date Activated Date Inactivated Comments 11/17/2023 1:12 AM 11/18/2023 5:01 PM * Full Code Date Activated Date Inactivated Comments 09/28/2023 1:27 AM 10/02/2023 3:59 PM Care Teams Metal Mold Dresser Relationship Specialty Start Date End Date Priyank Zepeda MD [address] [place] [address] PCP - General INTERNAL MEDICINE 09/19/19
--- OUTSIDE RECORDS SUMMARY | 2024-10-08 11:25 | XMS_ITS | Encounter Summary ---
Author Organization [facility] Address [address] [place] [address] Care Team Providers Care Rn Plasma Center Name Role Phone Priyank Zepeda MD Primary Care Provider [phone] Encounter Details Date Type Department Care Team (Late st Contact Info) Description 10/03/2023 Hospital Follow-up Call [facility] Unit [address] [place] [address] Chelsea Bishop RN Social History Tobacco Use Types Packs/Day Years Used Date Smoking Tobacco: Never [facility] Utilities Answer Date Recorded In the past 12 months has e electric, gas, oil, or water [employer] threatened to shut off services in your [...] on filedocumented in this encounter Care Teams Rn Plasma Center Relationship Specialty Start Date End Date Priyank Zepeda MD [address] [place] [address] PCP - General INTERNAL MEDICINE 09/19/19 documented as of this encounter
--- OUTSIDE RECORDS SUMMARY | 2024-10-08 11:25 | XMS_ITS | Encounter Summary ---
Author Organization [facility] Address [address] [place] [address] Phone Care Team Providers Care Employment Law Attorney Name Role Phone Priyank Zepeda MD Primary Care Provider [phone] Reason for Visit * Reason Onset Date Comments Medication Management 08/16/2024 Encounter Details Date Type Department Care Team (Late st Contact Info) Description 08/16/2024 [facility]phone [facility] [address] [place] [address] Eloisa Ruiz, PT Medication Management Social History [...] [facility] patient was observation at [facility] for low potassium from /08/15/24. A -changes [...] on filedocumented in this encounter Care Teams Employment Law Attorney Relationship Specialty Start Date End Date Priyank Zepeda MD [address] [place] [address] PCP - General Internal Medicine 08/08/24 documented as of this encounter
--- OUTSIDE RECORDS SUMMARY | 2024-10-08 11:25 | XMS_ITS | Clinical Summary ---
Author Organization [facility] Facility Address [address] [address] Care Team Providers Care Special Deputy Sheriff Name Role Phone Priyank Zepeda MD Primary Care Provider [phone] Allergies Active Allergy Reactions Criticality Noted Date [...] mouth in the morning. 5 Active pancrelipase, Lqp-Mwri-Uvnx, (CREON) 23763-62516 units capsule Take 1 capsule by mouth in the morning and 1 capsule at noon and 1 capsule in the evening. Take with meals. 5 Active Cholecalciferol (Vitamin D3) 1.25 MG (27738 UT) capsule Take 50,000 Units by mouth in the morning and 50,000 Units in the evening. Active Active Problems Problem Noted Date Diagnosed [...] CDT Respiratory Rate 18 05/15/2018 11:00 AM SYSTEMS LIBRARIAN Oxygen Saturation 96% 01/23/2024 1:26 PM CDT Inhaled Oxygen Concentration - - Weight 77.6 kg (171 lb) 01/23/2024 1:26 PM CDT Height 165.1 cm (5' 5 ) 01/23/2024 1:26 PM CDT Body Mass Index 28.46 01/23/2024 1:26 PM CDT Plan of Treatment Upcoming Encounters Date Type Department Care Team (Late st Contact Info) Description 10/22/2024 10:45 AM CDT Office Visit [facility] Evgeny. [address] [facility] [address] [place] [address] Kristofer Ortiz MD [address] [facility] [address] [place] [address] Health Maintenance Due Date Last Done Comments Breast Cancer Screening 1960 Pneumococcal Vaccine: 50+ Years (1 of 2 - PCV) 1978 Colorectal Cancer Screening: Colonoscopy Discontinued 12/14/2023, 11/04/2021 Influenza Vaccine Completed 03/19/2024, , 03/06/2022, Additional history exists Hepatitis B Vaccine Aged Out No longe r eligible based on patient's age to complete this topic Insurance [facility] Advance Directives Documents on File Type Date Recorded Patient Cinder Crew Worker Expl anation Power of Activity Therapist 10/25/2021 11:10 AM Othe r - POA Power of Activity Therapist 10/25/2021 11:10 AM Othe r - POA Care Teams Special Deputy Sheriff Relationship Specialty Start Date End Date Priyank Zepeda MD [address] [place] [address] PCP - General Internal Medicine 05/17/19
--- OUTSIDE RECORDS SUMMARY | 2024-10-08 11:25 | XMS_ITS | Encounter Summary ---
Author Organization [facility] Address [address] [place] [address] Phone Care Team Providers Care Serials Librarian Name Role Phone Priyank Zepeda MD Primary Care Provider [phone] Reason for Visit * Reason Onset Date Comments Medication Management 08/13/2024 Encounter Details Date Type Department Care Team (Late st Contact Info) Description 08/13/2024 [facility] [address] [place] [address] Eloisa Ruiz, PT Medication Management Social History [...] on filedocumented in this encounter Care Teams Serials Librarian Relationship Specialty Start Date End Date Priyank Zepeda MD [address] [place] [address] PCP - General Internal Medicine 08/08/24 documented as of this encounter
--- OUTSIDE RECORDS SUMMARY | 2024-10-08 11:25 | XMS_ITS | Clinical Summary ---
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 [place] [address] PCP - General 03/11/02
--- OUTSIDE RECORDS SUMMARY | 2024-10-08 11:25 | XMS_ITS | Data Portability ---
Author Organization [facility], [address] [place] [address] Neurology ([place]) Address [address] [address] Care Team Providers Care Chief Solution Architect Name Role Phone KIERAN CALL Primary Care Provider Assessment Encounter Date Assessment Date Assessment LastModified by Organization Details LastModified Time 10/17/2023 10/17/2023 - Keep already scheduled appointment with GI -secure an appointment with hematology -follow up with your PCP if needed -Call this office with any questions or concerns [email or web address] Not available 10/17/2023 14:57:46 Plan of Treatment [...] city possi ble) ----- 53.3 Not Available [facility] - All Sites [address] [place] [address] [address], [place], [address], 06/05/2024 01:21:09 10/02/19 24 10/02/2023 PTH (para [...] . ----- 182.5 Not Available [facility] [address], [address], 06/05/2024 01:21:09 10/02/19 24 10/02/2023 phosp horus , serum or plasm a phosphorus 2 mg/dL 2.5-4. 9 low Not Available [facility] [address] [place], [address], 06/05/2024 01:21:08 10/02/19 24 10/02/2023 BMP, blood sodium 140 mmol/ L 136-14 5 Not Available [facility] [address], [place], [address], 06/05/2024 01:21:02 10/02/19 24 10/02/2023 BMP, blood potassium 2.9 mmol/ L 3.5-5. 1 low criti benjamin resul t(s) dial d to and read back by: vicky blanton at: 16:07 :22 10/01 by assp. ----- 2.9 Not Available [facility] [address], [place], [address], 06/05/2024 01:21:02 10/02/19 24 10/02/2023 BMP, blood chloride 110 mmol/ L 98-107 high Not Available [facility] [address], [place], [address], 06/05/2024 01:21:02 10/02/19 24 10/02/2023 BMP, blood CO2 24.9 mmol/ L 21.0-3 2.0 Not Available [facility] [address], [place], [address], 06/05/2024 01:21:02 10/02/19 24 10/02/2023 BMP, blood anion gap 5.1 mmol/ L 5.0-15 .0 Not Available [facility] [address] [facility] [address], [place], [address], 06/05/2024 01:21:02 10/02/19 24 10/02/2023 BMP, blood glucose 116 mg/dL 74-106 high Not Available [facility] [address], [place], [address], 06/05/2024 01:21:02 10/02/19 24 10/02/2023 BMP, blood BUN 11 mg/dL 7-18 Not Available [facility] [address], [place], [address], 06/05/2024 01:21:02 10/02/19 24 10/02/2023 BMP, blood creatinine 0.91 mg/dL 0.55-1 .02 Not Available [facility] [address], [place], [address], 06/05/2024 01:21:02 10/02/19 24 10/02/2023 BMP, blood calcium 7.8 mg/dL 8.5-10 .1 low Not Available [facility] [address] [facility] [address], [place], [address], 06/05/2024 01:21:02 10/02/19 24 10/02/2023 BMP, blood eGFR 70 mL/mi n/1.7 3_M2 >90 low Not Available [facility] [address] [facility] [address], [place], [address], 06/05/2024 01:21:02 10/02/19 24 10/02/2023 BMP, blood calculated osmolality 290 mOsm/ kg refer ence range not estab lishe d ----- 290 Not Available [facility] [address], [place], [address], 06/05/2024 01:21:02 10/02/19 24 10/02/2023 BMP, blood [...] n/1.7 3 m2 ----- Not Available [facility] [address], [place], [address], 06/05/2024 01:21:02 01/18/20 24 12/07/2022 imagi ng/di agnos tic resul t No observ ation record ed. Not Available 01/18/2024 03:50:12 04/01/20 24 07/28/2023 imagi ng/di agnos tic resul t No observ ation record ed. [email or web address] Not Available 22:51:05 10/02/19 25 11/18/2020 imagi ng/di agnos tic resul t No observ ation record ed. [email or web address] Not Available 03:58:39 Result Notes None recorded. Procedures Surgical History [...] completed [email or web address] Information not available 04/01/2024 22:51:05 11/18/2020 imaging/diag nostic result completed [email or web address] Information not available 10/01/2024 03:58:39 Procedure Notes None recorded. Medical Equipment None Reported. Allergies Allergen ID Allergen Name Allergen Category Reaction Reaction Severity Criticality Documentation Date Start Date Code Code System Note Provider Name and Address Organization Details Recorded Time 675339 adhesive tape environme nt,medica tion rash Not available Not available 07/03/20232013 78763 UNK React ion: Rash; Comme nt: Adhes messi Tape React ion Date: 27 Jul 2012 ; Not Available [facility] 22:47:28 664026 Cipro medicatio n Not available Not available Not available 07/03/20232013 70977 3 RxNorm Comme nt: React ion Date: 01 Jan 2013 ; Not Available [facility] 22:47:29 090771 succinylc holine chloride medicatio n Not available Not available Not available 07/03/20232015 3565 RxNorm Not Available [facility] 22:47:29 Medications Name Sig Start Date Stop Date Status Note LastModified by Organization Details LastModified Time Prescription - New active Last Sawyer: NIMESH CHRISTIANSON (Audiology) , Sergey n Form Not Available Not Available Not Available Vitals Date Recorded Body height Oxygen saturation Oxygen saturation in Arterial blood by Pulse oximetry Heart rate Body temperature Respiratory rate Systolic blood pressure Diastolic blood pressure Provider Name and Address Organization Details Last Updated DateTime 166.37 cm 97 % 97 % 64 /min 97.7 [degF] 18 /min 123 mm[Hg] 74 mm[Hg] Tina cuello [facility] 14:41:31 Social History Question Answer Notes LastModified by Pharmaxis Details LastModified Time Do You Have An [...] Do You Have A Medical Power Of Store Loss Prevention Manager? Yes [email or web address] Information not available 10/16/2023 What [...] SNOMED-CT Code Diagnosis ICD10 Code Diagnosis Note [id number] [facility] ([place]) [address] [place] [address] 10/17/2023 14:31:01 10/18/2023 15:51:26 Hospital inpatient stay within past 30 days [id number] 106 Z76.89 Health Concerns Section Related Observation LastModified by Organization Detai ls LastModified Time None Recorded Concern Status LastModified by Organization Details LastModified Time None Recorded Advance Directives Directive Y: Payers Encounter Date Sequence Insurance Name Policy Number Policy Juares Covered Member ID Juares Member ID Guarantor Name 10/17/2023 1 [facility] ON OR AFTER 12/03/20 (MEDICAID REPLACEMENT - HMO) Louise Moore [id number] Louise Moore Notes Date Note Type Note Provider Name [...] appointment scheduled for November 01 with GI STERILISATION TECHNICIAN for consultation. She is eating and drinking well. She denies n/v. YULISSA MARTINEZ, FIELD CROPS HARVEST MACHINE OPERATOR-C [address] [facility], [place], [address], [facility] 10/17/2023 14:58:51 OBGyn Episode No OBEpisode recorded.
--- OUTSIDE RECORDS SUMMARY | 2024-10-08 11:25 | XMS_ITS | Encounter Summary ---
Author Organization [facility] Address [address] [place] [address] Phone Care Team Providers Care Parking Technician Name Role Phone Priyank Zepeda MD Primary Care Provider [phone] Encounter Details Date Type Department Care Team (Late st Contact Info) Description 09/04/2024 [facility] [address] [place] [address] Priyank Zepeda MD [address] [place] [address] Secondary hyperparathyroidism of renal origin [...] as of this encounter Plan of Treatment Scheduled Orders Name Type Priority Associated Diagnoses [...] - 12.00 10(3)/mcL 09/04/2024 6:44 PM CDT [facility] RBC 3.31(L) 3.80 - 5.30 10(6)/mcL 09/04/2024 6:44 PM CDT [facility] HEMOGLOBIN (HGB) 10.2(L) 12.0 - 15.8 g/dL 09/04/2024 6:44 PM CDT [facility] HEMATOCRIT (HCT) 32.3(L) 36.0 - 47.0 % 09/04/2024 6:44 PM CDT [facility] MCV 97.6(H) 82.0 - 96.0 fL 09/04/2024 6:44 PM CDT [facility] MCH 30.8 26.0 - 34.0 pg 09/04/2024 6:44 PM CDT [facility] MCHC 31.6 31.0 - 36.0 g/dL 09/04/2024 6:44 PM CDT [facility] PLATELET COUNT 240 140 - 440 10(3)/mcL 09/04/2024 6:44 PM CDT [facility] RDW 18.8(H) 11.8 - 15.5 % 09/04/2024 6:44 PM CDT [facility] MPV 9.8 9.7 - 12.4 fL 09/04/2024 6:44 PM CDT [facility] NEUTROPHILS 75.4(H) 47.0 - 73.0 % 09/04/2024 6:44 PM CDT [facility] LYMPHOCYTES 11.9(L) 18.0 - 42.0 % 09/04/2024 6:44 PM CDT [facility] MONOCYTES 9.3 4.0 - 12.0 % 09/04/2024 6:44 PM CDT [facility] EOSINOPHILS 2.8 0.0 - 5.0 % 09/04/2024 6:44 PM CDT [facility] BASOPHILS 0.6 0.0 - 1.0 % 09/04/2024 6:44 PM CDT [facility] ABSOLUTE NEUTROPHILS 3.48 1.60 - 7.70 10(3)/mcL 09/04/2024 6:44 PM CDT [facility] ABSOLUTE LYMPHOCYTES 0.55(L) 1.30 - 3.20 10(3)/mcL 09/04/2024 6:44 PM CDT [facility] ABSOLUTE MONOCYTES 0.43 0.20 - 1.00 10(3)/mcL 09/04/2024 6:44 PM CDT [facility] ABSOLUTE EOSINOPHIL 0.13 0.00 - 0.40 10(3)/mcL 09/04/2024 6:44 PM CDT [facility] ABSOLUTE BASOPHILS 0.03 0.00 - 0.10 10(3)/mcL 09/04/2024 6:44 PM CDT [facility] NRBC PER 100 WBC 0 09/05/19 6:44 PM CDT [facility] RESULTS ARE CONSISTENT WITH PERIPHERAL SMEAR REVIEW Yes 09/04/2024 6:44 PM CDT [facility] RBC MORPHOLOGY CONSISTENT WITH INDICES Yes 09/04/2024 6:44 PM CDT [facility] Blood No Phlebotomy Charged / Unknown 09/04/2024 4:55 PM CDT 09/04/2024 6:06 PM CDT us Priyank Zepeda MD HEMATOLOGY ORDERABLES Final R esult [facility] [place] [address] * (ABNORMAL) PREALBUMIN (PAB) (09/04/2024 4:55 PM CDT) Pathologist [facility] PRE ALBUMIN 13(L) 14 - 37 mg/dL 09/05/2024 6:00 PM CDT [facility] Blood No Phlebotomy Charged / Unknown 09/04/2024 4:55 PM CDT 09/04/2024 6:06 PM CDT us Priyank Zepeda MD CHEMISTRY ORDERABLES Final Re sult [facility] [address] [place] [address], * VITAMIN D, 25 HYDROXY TOTAL (09/04/2024 4:55 PM CDT) VITAMIN D, 25 HYDROX 19.0 ng/mL 09/04/2024 6:55 PM CDT [facility] Blood No Phlebotomy Charged / Unknown 09/04/2024 4:55 PM CDT 09/04/2024 6:06 PM CDT Narrative [facility] - 09/04/2024 6:55 PM CDT Published reference ranges for Vitamin D vary depending on time and place and method of testing, and on patient's age, sex, ethnicity and levels of other measured analytes such as parathormone, calcium and phosphorus. The result should be evaluated in conjunction with clinical findings and suspicions. [place] [employer] Clinical Practice Guidelines: Status Vitamin D levels (ng/mL) Deficient <=20 At risk of inadequacy 21-29 Sufficient 30-100 Centers of Disease Control and Prevention Guidelines: Status Vitamin D levels (ng/mL) Deficient <13 At risk of inadequacy 13-19 Sufficient 20-50 Possibly harmful >50 References: [place] [employer], 2010 Dietary reference intakes for calcium and vitamin D. [place]: The National Academies Press. Yo M, Blayne N, Sara LEES, et al., Evaluation, treatment, and prevention of Vitamin D deficiency: an Endocrinology Clinical Practice Guideline. JCEM 2011 96: 7 8460-5872. Kiet A, Dario C, Yemi D, et al., Vitamin D Status: [place], , TXHS data brief, no. 59, [place]: National Center for Health Statistics. 2011. us Priyank Zepeda MD CHEMISTRY ORDERABLES Final Re sult [facility] [place] [address] * (ABNORMAL) THYROID STIMULATING HORMONE (TSH) (09/04/2024 4:55 PM CDT) TSH 9.593(H) 0.300 - 5.000 mIU/L 09/04/2024 6:56 PM CDT [facility] Blood No Phlebotomy Charged / Unknown 09/04/2024 4:55 PM CDT 09/04/2024 6:06 PM CDT us Priyank Zepeda MD CHEMISTRY ORDERABLES Final Re sult [facility] [address] [place] [address] * (ABNORMAL) PHOSPHORUS (PO4) (09/04/2024 4:55 PM CDT) PHOSPHORUS 2.3(L) 2.5 - 4.5 mg/dL 09/04/2024 6:39 PM CDT [facility] Blood No Phlebotomy Charged / Unknown 09/04/2024 4:55 PM CDT 09/04/2024 6:06 PM CDT us Priyank Zepeda MD CHEMISTRY ORDERABLES Final Re sult Performing Organization Address City/[facility]/ZIP Co de Phone Number [facility] [place] [address] * (ABNORMAL) CMP (COMPREHENSIVE METABOLIC PANEL) (09/04/2024 4:55 PM CDT) SODIUM 143 136 - 145 mmol/L 09/04/2024 6:39 PM CDT [facility] POTASSIUM 4.0 3.5 - 5.1 mmol/L 09/04/2024 6:39 PM CDT [facility] CHLORIDE 114(H) 98 - 107 mmol/L 09/04/2024 6:39 PM CDT [facility] CO2, VENOUS 23 22 - 30 mmol/L 09/04/2024 6:39 PM CDT [facility] ANION GAP 10.0 <18.0 mmol/L 09/04/2024 6:39 PM CDT [facility] GLUCOSE 87 70 - 99 mg/dL 09/04/2024 6:39 PM CDT [facility] BUN 10 10 - 20 mg/dL 09/04/2024 6:39 PM CDT [facility] CREATININE, BLOOD 0.77 0.60 - 1.00 mg/dL 09/04/2024 6:39 PM [facility] BUN/CREATININE RATIO 13 12 - 20 ratio 09/04/2024 6:39 PM [facility] TOTAL PROTEIN 6.8 6.0 - 8.0 g/dL 09/04/2024 6:39 PM [facility] ALBUMIN 2.7(L) 3.5 - 5.0 g/dL 09/04/2024 6:39 PM [facility] A/G RATIO 0.7(L) 1.0 - 2.2 09/04/2024 6:39 PM [facility] CALCIUM 8.2(L) 8.7 - 10.5 mg/dL 09/04/2024 6:39 PM [facility] T BILI 0.4 0.2 - 1.2 mg/dL 09/04/2024 6:39 PM [facility] SGOT (AST) 52(H) <43 U/L 09/04/2024 6:39 PM [facility] SGPT (ALT) 37 <56 U/L 09/04/2024 6:39 PM [facility] ALKALINE PHOSPHATASE 137 40 - 150 U/L 09/04/2024 6:39 PM [facility] GFR, ESTIMATED >60 >=60 09/04/2024 6:39 PM [facility] Comment: Creatinine Clearance is the preferred criteria for selecting drug dose adjustments in renally impaired patients. The GFR is provided as additional pertinent clinical information. GFR is reported in mL/min/1.73 sq m. Calculation based on the Chronic Kidney Disease Epidemiology Collaboration (CKD- EPI) equation refit without adjustment for race. GFR, EST. >60 >=60 025 6:39 PM [facility] GFR, EST. NONAFRICAN >60 >=60 09/04/2024 6:39 PM [facility] Blood No Phlebotomy Charged / Unknown 09/04/2024 4:55 PM CDT 09/04/2024 6:06 PM CDT us Priyank Zepeda MD CHEMISTRY ORDERABLES Final Re sult [facility] [place] [address] documented in this encounter Visit Diagnoses Diagnosis Secondary hyperparathyroidism of renal origin (HCC) Secondary hyperparathyroidism (of renal origin) Vitamin D deficiency, unspecified Hypothyroidism, unspecified documented in this encounter Care Teams Parking Technician Relationship Specialty Start Date End Date Priyank Zepeda MD [address] [place] [address] PCP - General Internal Medicine 08/08/24 documented as of this encounter
--- OUTSIDE RECORDS SUMMARY | 2024-10-08 11:25 | XMS_ITS | Encounter Summary ---
Author Organization [facility] Address [address] [facility] [place] [address] Phone Care Team Providers Care Booking Prizer Name Role Phone Priyank Zepeda MD Primary Care Provider [phone] Encounter Details Date Type Department Care Team (Late Contact Info) Description 12/06/2019 Orders Only [facility] Evgeny. [address] [facility] [facility] [place] [address] Kristofer Ortiz MD [address] [facility] [place] [address] Chronic kidney disease stage 3 [...] Description 10/22/2024 10:45 AM CDT Office Visit [facility]. [address] [facility] [place] [address] Kristofer Ortiz MD [address] [place] [address] [address] documented as of this encounter Visit Diagnoses Diagnosis Chronic kidney disease stage 3 (HCC) documented in this encounter Care Teams Booking Prizer Relationship Specialty Start Date End Date rPiyank Zepeda MD [address] [place] [address] PCP - General Internal Medicine 05/17/19 documented as of this encounter
--- OUTSIDE RECORDS SUMMARY | 2024-10-08 11:26 | XMS_ITS | Clinical Summary ---
Author Organization [facility] Address [address] [place] [address] Care Team Providers Care Energy Trading Analyst Name Role Phone Priyank Zepeda MD Primary Care Provider [phone] Source Comments [facility],non-owned Affiliates and Associated Physician Practices is amultiple site organization consisting of ambulatory clinics and hospital sitesin [place], [place], [place] and [place]. This disclosure is being madepursuant to the Care Everywhere program and may not contain all information available regarding this patient. Last updated 18.[facility] Allergies Active Allergy Reactions Criticality Noted Date Comments Adhesive Sensitivity Itching 07/28/2024 Ciprofloxacin Itching 07/28/2024 Succinylcholine Other 10/20/2015 Medications * Be aware that medications may not be up to date on this document. Alwaysverify current medications with the patient. apixaban (Eliquis) 5 MG tablet Take 1 [...] by mouth once daily 42 Each 08/07/2024 1:10 PM ROOM CLEANER 5 Active ferrous sulfate 325 (65 FE) MG tablet Take 1 (one) tablet by mouth once daily after lunch 30 tablet 08/07/2024 1:10 PM ROOM CLEANER 5 Active folic acid (Folvite) 1 MG tablet Take 1 (one) tablet by mouth once daily 30 tablet 08/07/2024 1:10 PM ROOM CLEANER 5 Active pantoprazole EC (Protonix) 40 MG tablet Take 1 (one) tablet by mouth 2 times daily, before breakfast and supper 60 tablet 08/07/2024 1:10 PM ROOM CLEANER 5 Active sucralfate (Carafate) 1 GM/10ML suspension Take 10 mL by mouth 4 times daily - before meals & nightly 420 mL 08/07/2024 1:10 PM ROOM CLEANER 5 Active Cholecalciferol (vitamin D3) 1.25 MG (22038 UT) capsule Take 1 (one) capsule by mouth every 7 days 5 capsule 5 Active furosemide (Lasix) 40 MG tablet Take 1 (one) tablet by mouth once daily 30 tablet 08/07/2024 1:10 PM ROOM CLEANER 5 Active Calcium Carbonate Antacid (calcium carbonate, 500 mg elemental Ca/5 mL,) 1250 MG/5ML suspension Take 10 mL by mouth 3 times daily with meals 473 mL 1 5 Active pancrelipase (Creon 24,000) 47996-99976 units capsule Take 1 (one) capsule by mouth 3 times daily with meals 100 capsule 5 Active calcitriol (Rocaltrol) 0.5 MCG capsule Take 2 (two) capsules by mouth 3 times daily 180 capsule 5 Active sodium bicarbonate 650 MG tablet Take 1 (one) tablet by mouth 3 times daily 90 tablet 5 Active Active Problems Problem Noted Date Diagnosed Date Back pain 08/02/2024 Colitis 07/28/2024 Gastrointestinal hemorrhage with melena 07/28/19 25 Encounters Date Type Department Care Team Description 07/29/2024 8:42 AM ROOM CLEANER Anesthesia Event [facility] [address] [place] [id number] Bozena Osullivan, Mary Ryan, ASSOCIATE PROFESSOR OF EDUCATION-COOK PRESSURE 07/29/2024 8:30 AM ROOM CLEANER - 07/29/2024 9:00 AM ROOM CLEANER Surgery [facility] [address] [place] [id number] Cathleen Estrada MD ESOPHAGOGASTRODUODENOSCOPY (EGD) DIAGNOSTIC 07/28/2024 2:19 PM ROOM CLEANER - 08/07/2024 4:44 PM ROOM CLEANER Hospital Encounter DP 5N Pulmonary Med [address] [place] [id number] Yi Grier MD Fatima, Noor E, MD Zhu, He, MD Kumar, Hanesh, MD Sampath, MD Sarah Hospitalist Discharge Disposition: Home or Self Care 07/28/2024 Travel from Last 3 Months Immunizations Immunization Administration Dates Next Due COVID PFIZER 12+YR [...] medical care, and heating? Somewhat hard 07/28/2024 [facility] - Occupational Stress [...] any time in the past 12 [facility], were you homeless or living in a senior care (including now)? No 07/28/2024 Comments Unknown Sex and Gender Information Value Date Recorded Sex Assigned at Not on file Legal Sex Female 9:40 AM CDT Gender Identity Not on file Sexual Orientation Not on file Last Filed Vital Signs Vital Sign Reading Time Taken Comments Blood Pressure 112/78 08/07/2024 2:44 PM ROOM CLEANER Pulse 93 08/07/2024 2:44 PM ROOM CLEANER Temperature 37.5 C (99.5 F) 08/07/2024 11:33 AM ROOM CLEANER Respiratory Rate 18 08/07/2024 11:3 3 AM ROOM CLEANER Oxygen Saturation 97% 08/07/2024 2:44 PM ROOM CLEANER Inhaled Oxygen Concentration - - Weight 87.5 kg (192 lb 14.4 oz) 025 12:04 AM ROOM CLEANER Height 165.1 cm (5' 5 ) 07/28/2024 4:01 PM ROOM CLEANER Body Mass Index 32.1 07/28/2024 4:01 PM ROOM CLEANER Plan of Treatment Health Maintenance Due Date [...] 11/18/2022 11/18/2020, 11/03, 11/01/2019 DEPRESSION SCREENING 06/05/2024 COVID-19 VACCINE ( season) 2024 03/19/2024, 03/27/2023, 03/06/2022, Additional history exists COLONOSCOPY - COLON CA SCREENING 12/13/2033 12/14/2023 Colorectal Cancer Screening 12/13/2033 Respiratory Syncytial Virus (RSV) Vaccine Pt: or over 60 yrs (1 - 1-dose 75+ series) 2034 ZOSTER VACCINE Completed 10/09/2023, 04/17/2023 INFLUENZA VACCINE Completed 03/19/2024, , 03/06/2022, Additional [...] CARDIAC RHYTHM STRIP ORDER 08/08/2024 11:03 PM ROOM CLEANER APHERESIS/TRANSFUSIO N ORDER 08/08/2024 11:03 PM ROOM CLEANER B-TYPE NATRIURETIC PEPTIDE AM Draw 08/07/2024 1:59 AM ROOM CLEANER COMPREHENSIVE METABOLIC PANEL AM Draw 08/07/2024 1:59 AM ROOM CLEANER VAS BILATERAL VENOUS DUPLEX LE PENDING DISCHARGE 08/06/2024 2:30 PM ROOM CLEANER Bilateral leg edema MAGNESIUM BLOOD Routine 08/06/2024 6:07 AM ROOM CLEANER BASIC METABOLIC PANEL (CALCIUM TOTAL) Routine 08/06/2024 6:07 AM ROOM CLEANER PHOSPHORUS BLOOD Routine 08/06/2024 6:07 AM ROOM CLEANER MRI LUMBAR SPINE WO CONTRAST Routine 08/05/2024 9:48 AM ROOM CLEANER Acute midline low back pain without sciatica PHOSPHORUS BLOOD Routine 08/05/2024 6:53 AM ROOM CLEANER COMPREHENSIVE METABOLIC PANEL AM Draw 08/05/2024 6:53 AM ROOM CLEANER MAGNESIUM BLOOD AM Draw 08/05/2024 6:53 AM ROOM CLEANER CBC W AUTO DIFFERENTIAL AM Draw 08/05/2024 6:53 AM ROOM CLEANER PROTEIN URINE TIMED QUANTITATIVE Routine 08/04/2024 1:55 PM ROOM CLEANER URIC ACID URINE TIMED Routine 08/04/2024 1:55 PM ROOM CLEANER CREATININE CLEARANCE URINE TIMED + BLOOD Routine 08/04/2024 1:55 PM ROOM CLEANER CALCIUM URINE TIMED Routine 08/04/2024 1 :55 PM ROOM CLEANER COMPREHENSIVE METABOLIC PANEL AM Draw 08/04/2024 6:55 AM ROOM CLEANER MAGNESIUM BLOOD AM Draw 08/04/2024 6:55 AM ROOM CLEANER CBC W AUTO DIFFERENTIAL AM Draw 08/04/2024 6:55 AM ROOM CLEANER URINALYSIS REFLEX TO MICROSCOPIC NO CULTURE Routine 08/03/2024 12:49 PM ROOM CLEANER COMPREHENSIVE METABOLIC PANEL AM Draw 08/03/2024 9:26 AM ROOM CLEANER MAGNESIUM BLOOD AM Draw 08/03/2024 9:26 AM ROOM CLEANER CBC W AUTO DIFFERENTIAL AM Draw 08/03/2024 9:26 AM ROOM CLEANER XR LUMBAR SPINE 2 OR 3VW Routine 08/02/2024 2:10 PM ROOM CLEANER Acute midline low back pain without sciatica PTH INTACT W/O CALCIUM Routine 08/02/2024 3:19 AM ROOM CLEANER MAGNESIUM BLOOD AM Draw 08/02/2024 3:19 AM ROOM CLEANER RENAL FUNCTION PANEL AM Draw 08/02/2024 3:19 AM ROOM CLEANER CBC W AUTO DIFFERENTIAL AM Draw 08/02/2024 3:19 AM ROOM CLEANER CALCIUM BLOOD STAT 08/01/2024 3:41 AM ROOM CLEANER MAGNESIUM BLOOD AM Draw 08/01/2024 1:20 AM ROOM CLEANER RENAL FUNCTION PANEL AM Draw 08/01/2024 1:20 AM ROOM CLEANER CBC W AUTO DIFFERENTIAL AM Draw 08/01/2024 1:20 AM ROOM CLEANER HGB HCT PANEL Timed 07/31/2024 7:39 AM ROOM CLEANER TRANSFUSE RED BLOOD CELL LEUKOREDUCED UNIT(S) Routine 07/31/2024 3:40 AM ROOM CLEANER PREPARE RBC LEUKOREDUCED UNIT Routine 07/31/2024 3:35 AM ROOM CLEANER MAGNESIUM BLOOD AM Draw 07/31/2024 2:15 AM ROOM CLEANER RENAL FUNCTION PANEL AM Draw 07/31/2024 2:15 AM ROOM CLEANER CBC W AUTO DIFFERENTIAL AM Draw 07/31/2024 2:15 AM ROOM CLEANER VITAMIN D 25-HYDROXY AM Draw 07/31/2024 2:15 AM ROOM CLEANER VITAMIN B12 AM Draw 07/31/2024 2:15 AM ROOM CLEANER FOLATE Routine 07/31/2024 2:15 AM ROOM CLEANER IRON + TRANSFERRIN PANEL Routine 07/31/2024 2:15 AM ROOM CLEANER HGB HCT PANEL Timed 07/30/2024 10:03 AM ROOM CLEANER TRANSFUSE RED BLOOD CELL LEUKOREDUCED UNIT(S) Routine 07/30/2024 5:20 AM ROOM CLEANER PREPARE RBC LEUKOREDUCED UNIT Routine 07/30/2024 5:15 AM ROOM CLEANER BLOOD TYPE VERIFICATION Routine 07/30/2024 2:06 AM ROOM CLEANER CBC W/O DIFFERENTIAL AM Draw 07/30/2024 2:06 AM ROOM CLEANER PT-INR AM Draw 07/30/2024 2:06 AM ROOM CLEANER BASIC METABOLIC PANEL (CALCIUM TOTAL) AM Draw 07/30/2024 2:06 AM ROOM CLEANER HGB HCT PANEL Timed 07/29/2024 9:08 PM ROOM CLEANER US ABDOMEN LIMITED Routine 07/29/2024 2: 29 PM ROOM CLEANER Gastrointestinal hemorrhage with melena HGB HCT PANEL Routine 07/29/2024 10:19 AM ROOM CLEANER PT-INR AM Draw 07/29/2024 10:19 AM ROOM CLEANER AR ED EGD FLEX TRANSORAL DX 07/29/2024 8:30 AM ROOM CLEANER EGD Routine 07/29/2024 6:57 AM ROOM CLEANER CBC W/O DIFFERENTIAL Routine 07/29/2024 6:42 AM ROOM CLEANER COMPREHENSIVE METABOLIC PANEL Routine 07/29/2024 6:42 AM ROOM CLEANER MAGNESIUM BLOOD Routine 07/29/2024 6:42 AM ROOM CLEANER PHOSPHORUS BLOOD Routine 07/29/2024 6:42 AM ROOM CLEANER CULTURE BLOOD Timed 07/28/2024 10:03 PM ROOM CLEANER CULTURE BLOOD Timed 07/28/2024 8:16 PM ROOM CLEANER TYPE + SCREEN PANEL Routine 07/28/2024 6 :52 PM ROOM CLEANER COMPREHENSIVE METABOLIC PANEL STAT 07/28/2024 5:25 PM ROOM CLEANER CBC W/O DIFFERENTIAL STAT 07/28/2024 5:25 PM ROOM CLEANER from Last 3 Months Results * CARDIAC RHYTHM STRIP ORDER (08/08/2024 11:03 PM ROOM CLEANER) Narrative 08/08/2024 11:03 PM ROOM CLEANER Ordered by an unspecified provider. us Scanned Document CARDIAC SERVICES ORDERABLES Fin al Result * APHERESIS/TRANSFUSION ORDER (08/08/2024 11:03 PM ROOM CLEANER) Narrative 08/08/2024 11:03 PM ROOM CLEANER Ordered by an unspecified provider. us Scanned Document NURSING - VITAL SIGNS AND ASSES SMENT Final Result * B-TYPE NATRIURETIC PEPTIDE (08/07/2024 1:59 AM ROOM CLEANER) BNP 35 <=100 pg/mL 08/07/2024 2:52 AM ROOM CLEANER [facility] Blood BLOOD SPECIMEN / Unknown Venipuncture / Unknown 08/07/2024 1:59 AM ROOM CLEANER 08/07/2024 2:19 AM ROOM CLEANER Chika Chew MD LAB - CHEMISTRY ORDERABLES Final Result [facility] [address] [place] [address] * (ABNORMAL) COMPREHENSIVE METABOLIC PANEL (08/07/2024 1:59 AM ROOM CLEANER) Only the most recent of6 resultswithin the time period is included. Glucose 97 70 - 99 mg/dL 08/07/2024 2:55 AM [facility] Sodium 136 136 - 145 mmol/L 08/07/2024 2:55 AM [facility] Potassium 3.9 3.5 - 5.1 mmol/L 08/07/2024 2:55 AM [facility] Chloride 104 98 - 107 mmol/L 08/07/2024 2:55 AM [facility] CO2 23 22 - 29 mmol/L 08/07/2024 2:55 AM [facility] Calcium 6.8(L) 8.4 - 10.4 mg/dL 08/07/2024 2:55 AM [facility] Anion Gap 9 6 - 16 mmol/L 08/07/2024 2:55 AM [facility] BUN 9 7 - 26 mg/dL 08/07/2024 2:55 AM [facility] Creatinine 0.95 0.57 - 1.11 mg/dL 08/07/2024 2:55 AM [facility] Alkaline Phosphatase 91 40 - 150 U/L 08/07/2024 2:55 AM [facility] ALT 21 0 - 55 U/L 08/07/2024 2:55 AM [facility] AST 28 5 - 34 U/L 08/07/2024 2:55 AM [facility] Protein Total 4.9(L) 6.4 - 8.3 gm/dL 08/07/2024 2:55 AM [facility] Albumin 2.1(L) 3.4 - 5.0 gm/dL 08/07/2024 2:55 AM [facility] Bilirubin Total 0.6 0.2 - 1.2 mg/dL 08/07/2024 2:55 AM ROOM CLEANER [facility] eGFR by CKD-EPI 66(L) >=90 mL/min/1.7 3 m2 08/07/2024 2:55 AM ROOM CLEANER [facility] Blood BLOOD SPECIMEN / Unknown Venipuncture / Unknown 08/07/2024 1:59 AM ROOM CLEANER 08/07/2024 2:19 AM ROOM CLEANER us Chika Chew MD LAB - CHEMISTRY ORDERABLES Final Result [facility] [address] [place] [address] * VAS Bilateral Venous Duplex Le (08/06/2024 2:30 PM ROOM CLEANER) Anatomical Region Laterality Modality Lower Extremity Ultrasound 08/06/2024 1:50 PM ROOM CLEANER Narrative Procedure Note Jorge Barakat MD - 08/07/2024 [facility] [id number] [place] [id number] Lower Extremity Venous Ultrasound Report Pat.Name: SARAHY RODRIGUEZ.ID: [id number] .Date: 08/06/2024 Exam Time: 1:50:00 PM Study Type:LE Venous Age: 1 1960,64Y Sex: FEMALE Sonogrphr: Binh Eldridge RVT Pat. Stat.:Inpatient Room: [facility] ICD - 9: R60.0 CPT - 4: 89591 Reason for Study: Bilateral leg edema History / Clinical: CKD, Liver cirrhosis Procedures: Lower Extremity Venous - Bilateral Race: 1 Visit ID: [id number] ++++++++++++++++++++++++++++++++++++ SUMMARY: ++++++++++++++++++++++++++++++++++++ There is no evidence [...] Barakat MD Chika Chew MD VASCULAR LAB ORDERABLES Edited * (ABNORMAL) BASIC METABOLIC PANEL (CALCIUM TOTAL) (08/06/2024 6:07 AM ROOM CLEANER) Only the most recent of2 resultswithin the time period is included. Glucose 87 70 - 99 mg/dL 08/06/2024 8:46 AM [facility] Sodium 137 136 - 145 mmol/L 08/06/2024 8:46 AM [facility] Potassium 3.0(L) 3.5 - 5.1 mmol/L 08/06/2024 8:46 AM [facility] Chloride 103 98 - 107 mmol/L 08/06/2024 8:46 AM [facility] CO2 27 22 - 29 mmol/L 08/06/2024 8:46 AM [facility] Calcium 6.7(L) 8.4 - 10.4 mg/dL 08/06/2024 8:46 AM [facility] Anion Gap 7 6 - 16 mmol/L 08/06/2024 8:46 AM [facility] BUN 7 7 - 26 mg/dL 08/06/2024 8:46 AM [facility] Creatinine 0.81 0.57 - 1.11 mg/dL 08/06/2024 8:46 AM [facility] eGFR by CKD-EPI 81(L) >=90 mL/min/1.7 3 m2 08/06/2024 8:46 AM ROOM CLEANER [facility] Blood BLOOD SPECIMEN / Unknown Venipuncture / Unknown 08/06/2024 6:07 AM ROOM CLEANER 08/06/2024 6:11 AM ROOM CLEANER Chika Chew MD LAB - CHEMISTRY ORDERABLES Final Result Performing Organization Address [facility] de Phone Number [facility] [address] [place] [address] * PHOSPHORUS BLOOD (08/06/2024 6:07 AM ROOM CLEANER) Only the most recent of3 resultswithin the time period is included. Phosphorus 3.7 2.5 - 4.5 mg/dL 08/06/2024 6:27 AM ROOM CLEANER [facility] Blood BLOOD SPECIMEN / Unknown Venipuncture / Unknown 08/06/2024 6:07 AM ROOM CLEANER 08/06/2024 6:11 AM ROOM CLEANER Miguel Angel Mccain MD LAB - CHEMISTRY ORDERABLES Final Result Performing Organization Address [facility] de Phone Number [facility] [address] [place] [address] * MAGNESIUM BLOOD (08/06/2024 6:07 AM ROOM CLEANER) Only the most recent of8 resultswithin the time period is included. Magnesium 1.7 1.6 - 2.6 mg/dL 08/06/2024 8:43 AM ROOM CLEANER [facility] Blood BLOOD SPECIMEN / Unknown Venipuncture / Unknown 08/06/2024 6:07 AM ROOM CLEANER 08/06/2024 6:11 AM ROOM CLEANER Chika Chew MD LAB - CHEMISTRY ORDERABLES Final Result Performing Organization Address [facility] de Phone Number [facility] [address] [place] [address] * MRI Lumbar Spine Wo Contrast (08/05/2024 9:48 AM ROOM CLEANER) Anatomical Region Laterality Modality Spine Magnetic Resonan ce 08/05/2024 9:51 AM ROOM CLEANER Impressions 08/05/2024 11:53 AM ROOM CLEANER IMPRESSION: Multilevel degenerative disc and joint disease. Mild foraminal narrowing at L3-L4 and L4-L5 levels. No canal narrowing seen. Minimal superior endplate compression at T12, associated with mild marrow edema, less than 25% loss of vertical height. Edited by Tressa Phillips on 08/05/2024 10:17 AM > Interpreting Provider: Stefani Zepeda MD on 08/05/2024 11:53 AM Narrative 08/05/2024 11:53 AM ROOM CLEANER PROCEDURE: MRI LUMBAR SPINE WO CONTRAST DATE/TIME [...] Stefani Zepeda MD on 08/05/2024 11:53 AM [facility] Kalyn BERNSTEIN MR ORDERABLES Final Result * (ABNORMAL) CBC W AUTO DIFFERENTIAL (08/05/2024 6:53 AM ROOM CLEANER) Only the most recent of6 resultswithin the time period is included. WBC 6.8 4.0 - 10.7 x10E9/L 08/05/2024 7:01 AM ROOM CLEANER [facility] RBC Count 2.80(L) 3.90 - 5.20 x10E12/L 08/05/2024 7:01 AM [facility] Hemoglobin 8.6(L) 11.9 - 15.8 g/dL 08/05/2024 7:01 AM [facility] Hematocrit 26.3(L) 34.8 - 46.1 % 08/05/2024 7:01 AM [facility] MCV 93.9 80.0 - 98.0 fL 08/05/2024 7:01 AM [facility] MCH 30.7 26.7 - 33.6 pg 08/05/2024 7:01 AM [facility] MCHC 32.7 31.7 - 36.3 g/dL 08/05/2024 7:01 AM [facility] RDW-CV 17.6(H) 11.3 - 14.8 % 08/05/2024 7:01 AM [facility] Platelet Count 111(L) 150 - 420 x10E9/L 08/05/2024 7:01 AM [facility] MPV 10.1 7.8 - 11.4 fL 08/05/2024 7:01 AM [facility] Neutrophil % 70.0 41.0 - 74.0 % 08/05/2024 7:01 AM [facility] Lymphocyte % 13.8(L) 17.0 - 47.0 % 08/05/2024 7:01 AM [facility] Monocyte % 11.7(H) 3.0 - 11.0 % 08/05/2024 7:01 AM [facility] Eosinophil % 3.7 0.0 - 7.0 % 08/05/2024 7:01 AM [facility] Basophil % 0.4 0.0 - 1.6 % 08/05/2024 7:01 AM [facility] Immature Granulocytes % 0.4 0.0 - 1.0 % 08/05/2024 7:01 AM [facility] Neutrophil Absolute 4.76 1.60 - 7.50 x10E9/L 08/05/2024 7:01 AM [facility] Lymphocyte Absolute 0.94(L) 1.00 - 4.40 x10E9/L 08/05/2024 7:01 AM [facility] Monocyte Absolute 0.80 0.15 - 1.00 x10E9/L 08/05/2024 7:01 AM ROOM CLEANER [facility] Eosinophil Absolute 0.25 0.00 - 0.60 x10E9/L 08/05/2024 7:01 AM ROOM CLEANER [facility] Basophil Absolute 0.03 0.00 - 0.13 x10E9/L 08/05/2024 7:01 AM ROOM CLEANER [facility] Blood BLOOD SPECIMEN / Unknown Venipuncture / Unknown 08/05/2024 6:53 AM ROOM CLEANER 08/05/2024 6:57 AM ROOM CLEANER Miguel Angel Mccain MD LAB - HEMATOLOGY ORDERABLES Manisha l Result [facility] [address] [place] [id number] * URIC ACID URINE TIMED (08/04/2024 1:55 PM ROOM CLEANER) Uric Acid 24 Hour Urine 205.0 142.3 - 713.2 mg/24 hr 08/06/2024 11:10 AM ROOM CLEANER [facility] ([facility]) Uric Acid Urine 20.5 Not Estab. mg/dL 08/06/2024 11:10 AM [facility] ([facility]) Urine TIMED URINE SPECIMEN / Unknown Timed Urine Volume Measurement / Unknown 08/04/2024 1:55 PM ROOM CLEANER 08/04/2024 2:02 PM ROOM CLEANER Narrative [facility] ([facility]) - 08/06/2024 11:10 AM ROOM CLEANER Performed at: [address] [place] [address] [id number] E Commerce Marketing Manager: El Sood PhD, Phone: [phone] us Pete Olmos MD LAB - URINE CHEMISTRY ORDERABLE S Final Result Performing Organization Address City/[facility]/ZIP Co de Phone Number [facility] ([facility]) [address] [place] [address] * PROTEIN URINE TIMED QUANTITATIVE (08/04/2024 1:55 PM ROOM CLEANER) Volume 24 Hour Urine 1,000 mL 08/04/2024 2:25 PM ROOM CLEANER [facility] Collection Time Hours 24 hrs 08/04/2024 2:25 PM ROOM CLEANER [facility] Protein 24 Hour Urine 72 <300 mg/24hr 08/04/2024 2:25 PM ROOM CLEANER [facility] Protein Urine 7.2 <11.9 mg/dL 08/04/2024 2:25 PM ROOM CLEANER [facility] Urine TIMED URINE SPECIMEN / Unknown Timed Urine Volume Measurement / Unknown 08/04/2024 1:55 PM ROOM CLEANER 08/04/2024 2:02 PM ROOM CLEANER Pete Olmos MD LAB - URINE CHEMISTRY ORDERABLE S Final Result [facility] [address] [place] [address] * CREATININE CLEARANCE URINE TIMED + BLOOD (08/04/2024 1:55 PM ROOM CLEANER) [facility] Signature Volume 24 Hour Urine 1,000 mL 08/04/2024 2:28 PM [facility] Collection Time Hours 24 hrs 08/04/2024 2:28 PM [facility] Height Inches 65 inches 08/04/2024 2:28 PM [facility] Weight in Pounds 160 pounds 08/04/2024 2:28 PM [facility] Surface Area 1.80 08/04/2024 2:28 PM [facility] Creatinine 0.81 0.57 - 1.11 mg/dL 08/04/2024 2:28 PM [facility] Creatinine Urine 82.74 mg/dL 08/04/2024 2:28 PM [facility] Creatinine 24 Hour Urine 827 710 - 1,650 mg/24hr 08/04/2024 2:28 PM [facility] Creatinine Clearance 68 66 - 165 mL/min/1.73 m2 08/04/2024 2:28 PM [facility] Urine TIMED URINE SPECIMEN / Unknown Timed Urine Volume Measurement / Unknown 08/04/2024 1:55 PM ROOM CLEANER 08/04/2024 2:02 PM ROOM CLEANER Pete Olmos MD LAB - URINE CHEMISTRY ORDERABLE S Final Result [facility] [address] [place] [id number] * (ABNORMAL) CALCIUM URINE TIMED (08/04/2024 1:55 PM ROOM CLEANER) Calcium Random Urine <2.0 Not Established mg/dL 08/04/2024 7:00 PM [facility] Collection Time Timed Urine 24 [...] Volume Measurement / Unknown 08/04/2024 1:55 PM ROOM CLEANER 08/04/2024 2:02 PM ROOM CLEANER Pete Olmos MD LAB - URINE CHEMISTRY ORDERABLE S Final Result Performing Organization Address [facility] de Phone Number [facility] [address] [place] [address], [facility] [phone] * (ABNORMAL) URINALYSIS REFLEX TO MICROSCOPIC NO CULTURE (08/03/2024 12:49 PM ROOM CLEANER) Color UA Yellow Yellow, Straw 08/03/2024 1:30 PM ROOM CLEANER [facility] Clarity UA Clear Clear 08/03/2024 1:30 PM ROOM CLEANER [facility] Glucose UA Normal Normal 08/03/2024 1:30 PM ROOM CLEANER [facility] Bilirubin UA Negative Negative 08/03/2024 1:30 PM ROOM CLEANER [facility] Ketone UA Negative Negative 08/03/2024 1:30 PM ROOM CLEANER [facility] Specific [place] UA 1.013 1.005 - 1.030 08/03/2024 1:30 PM ROOM CLEANER [facility] Blood UA Negative Negative 08/03/2024 1:30 PM ROOM CLEANER [facility] pH UA 7.5 5.0 - 9.0 pH 08/03/2024 1:30 PM ROOM CLEANER [facility] Protein UA Negative Negative 08/03/2024 1:30 PM ROOM CLEANER [facility] Urobilinogen UA Normal Normal mg/dL 08/03/2024 1:30 PM ROOM CLEANER [facility] Nitrite UA Negative Negative 08/03/2024 1:30 PM ROOM CLEANER [facility] Leukocyte UA 75 JAQUI/uL(A) Negative 08/03/2024 1:30 PM ROOM CLEANER [facility] RBC UA 0-2 0 - 5 # /hpf 08/03/2024 1:30 PM ROOM CLEANER [facility] WBC UA 6-10(A) 0 - 5 # /hpf 08/03/2024 1:30 PM ROOM CLEANER [facility] Bacteria UA Trace(A) None Seen 08/03/2024 1:30 PM ROOM CLEANER [facility] Squamous Epithelial Cells 0-2 0 - 5 /hpf 08/03/2024 1:30 PM ROOM CLEANER [facility] Budding Yeast Few(A) None seen /hpf 08/03/2024 1:30 PM ROOM CLEANER [facility] Urine URINE SPECIMEN OBTAINED BY CLEAN CATCH PROCEDURE / Unknown Collection / Unknown 08/03/2024 12:49 PM ROOM CLEANER 08/03/2024 12:53 PM ROOM CLEANER Narrative [facility] - 08/03/2024 1:30 PM ROOM CLEANER Pete Olmos MD LAB - URINALYSIS ORDERABLES Fin al Result [facility] [address] [place] [address] * XR Lumbar Spine 2 or 3Vw (08/02/2024 2:10 PM ROOM CLEANER) Anatomical Region Laterality Modality Spine Computed Radiogr aphy 08/02/2024 2:26 PM ROOM CLEANER Narrative 08/02/2024 2:29 PM ROOM CLEANER EXAM: XR LUMBAR SPINE 2 OR 3VW [...] PM Miguel Angel Mccain MD DIAGNOSTIC IMAGING ORDERABLES Fi nal Result * (ABNORMAL) PTH INTACT W/O CALCIUM (08/02/2024 3:19 AM ROOM CLEANER) PTH Intact 275.2(H) 8.7 - 77.1 pg/mL 08/02/2024 4:05 AM [facility] Blood BLOOD SPECIMEN / Unknown Venipuncture / Unknown 08/02/2024 3:19 AM ROOM CLEANER 08/02/2024 3:30 AM ROOM CLEANER Miguel Angel Mccain MD LAB - CHEMISTRY ORDERABLES Final Result [facility] [address] [place] [address] * (ABNORMAL) RENAL FUNCTION PANEL (08/02/2024 3:19 AM ROOM CLEANER) Only the most recent of3 resultswithin the time period is included. Glucose 112(H) 70 - 99 mg/dL 08/02/2024 4:06 AM [facility] Sodium 140 136 - 145 mmol/L 08/02/2024 4:06 AM [facility] Potassium 3.1(L) 3.5 - 5.1 mmol/L 08/02/2024 4:06 AM [facility] Chloride 103 98 - 107 mmol/L 08/02/2024 4:06 AM [facility] CO2 28 22 - 29 mmol/L 08/02/2024 4:06 AM [facility] Calcium 5.8(LL) 8.4 - 10.4 mg/dL 08/02/2024 4:06 AM [facility] Anion Gap 9 6 - 16 mmol/L 08/02/2024 4:06 AM [facility] BUN 4(L) 7 - 26 mg/dL 08/02/2024 4:06 AM [facility] Creatinine 0.75 0.57 - 1.11 mg/dL 08/02/2024 4:06 AM [facility] Albumin 2.4(L) 3.4 - 5.0 gm/dL 08/02/2024 4:06 AM [facility] Phosphorus 2.4(L) 2.5 - 4.5 mg/dL 08/02/2024 4:06 AM [facility] eGFR by CKD-EPI 88(L) >=90 mL/min/1.7 3 m2 08/02/2024 4:06 AM [facility] Blood BLOOD SPECIMEN / Unknown Venipuncture / Unknown 08/02/2024 3:19 AM ROOM CLEANER 08/02/2024 3:30 AM ROOM CLEANER us Miguel Angel Mccain MD LAB - CHEMISTRY ORDERABLES Final Result Performing Organization Address City/[facility]/ZIP Co de Phone Number [facility] [address] [place] [address] * (ABNORMAL) CALCIUM BLOOD (08/01/2024 3:41 AM ROOM CLEANER) [facility] Calcium 5.4(LL) 8.4 - 10.4 mg/dL 08/01/2024 4:21 AM [facility] Blood BLOOD SPECIMEN / Unknown Venipuncture / Unknown 08/01/2024 3:41 AM ROOM CLEANER 08/01/2024 3:52 AM ROOM CLEANER Peewee Esquivel DO LAB - CHEMISTRY ORDERABLES Final Result Performing Organization Address [facility] Co de Phone Number [facility] [address] [place], [place] [id number] * (ABNORMAL) HGB HCT PANEL (07/31/2024 7:39 AM ROOM CLEANER) Only the most recent of4 resultswithin the time period is included. Pathologist [facility] Hemoglobin 8.3(L) 11.9 - 15.8 g/dL 07/31/2024 7:47 AM ROOM CLEANER [facility] Hematocrit 23.7(L) 34.8 - 46.1 % 07/31/2024 7:47 AM ROOM CLEANER [facility] Blood BLOOD SPECIMEN / Unknown Venipuncture / Unknown 07/31/2024 7:39 AM ROOM CLEANER 07/31/2024 7:43 AM ROOM CLEANER us Cruz Whitfield MD LAB - HEMATOLOGY ORDERABLES Final Result Performing Organization Address City/[facility]/ZIP Co de Phone Number [facility] [address] [place] [address] * TRANSFUSE RED BLOOD CELL LEUKOREDUCED UNIT(S) (07/31/2024 5:59 AM ROOM CLEANER) us Peewee Esquivel DO NURSING - BLOOD PROD TRANSFUSION Final Result * PREPARE (CROSSMATCH) RBC UNIT(S), 1 Units (07/31/2024 3:35 AM ROOM CLEANER) Only the most recent of2 resultswithin the time period is included. [facility] Unit Description AS1 LR PRBC [facility] Unit ABO B [facility] Unit Rh POS [facility] Product Number R02 [facility] Unit Donor # [id number] [facility] BLOOD BANK Unit Status transfused [facility] Product Code [id number] [facility] Blood Type Barcode 7300 [facility] Expiration Date [id number] D [facility] Blood Bank BLOOD SPECIMEN / Unknown 07/28/2024 8:53 PM ROOM CLEANER Miguel Angel Mccain MD LAB - BLOOD BANK ORDERABLES Manisha l Result Performing Organization Address City/[facility]/ZIP Co de Phone Number [facility] [address] [place] [address], [facility] [phone] * (ABNORMAL) VITAMIN D 25-HYDROXY (07/31/2024 2:15 AM ROOM CLEANER) [facility] Vitamin D, 25 Hydroxy 12.3(L) 30 - 80 ng/mL 07/31/2024 3:23 AM ROOM CLEANER [facility] Blood BLOOD SPECIMEN / Unknown Venipuncture / Unknown 07/31/2024 2:15 AM ROOM CLEANER 07/31/2024 2:22 AM ROOM CLEANER Narrative [facility] - 07/31/2024 3:23 AM ROOM CLEANER Vitamin D Status: Deficiency <20 ng/mL Insufficiency 20-30 ng/mL Sufficiency 30-100 ng/mL Toxicity >100 ng/mL Miguel Angel Mccain MD LAB - CHEMISTRY ORDERABLES Final Result Performing Organization Address City/[facility] Co de Phone Number [facility] [address] [place] [address] * (ABNORMAL) FOLATE (07/31/2024 2:15 AM ROOM CLEANER) Folate 5.2(L) 7.0 - 31.4 ng/mL 07/31/2024 3:23 AM ROOM CLEANER [facility] Blood BLOOD SPECIMEN / Unknown Venipuncture / Unknown 07/31/2024 2:15 AM ROOM CLEANER 07/31/2024 2:22 AM ROOM CLEANER Miguel Angel Mccain MD LAB - CHEMISTRY ORDERABLES Final Result Performing Organization Address [facility] de Phone Number [facility] [address] [place] [address] * (ABNORMAL) VITAMIN B12 (07/31/2024 2:15 AM ROOM CLEANER) Vitamin B12 >2,000(H) 213 - 816 pg/mL 07/31/2024 3:27 AM ROOM CLEANER [facility] Blood BLOOD SPECIMEN / Unknown Venipuncture / Unknown 07/31/2024 2:15 AM ROOM CLEANER 07/31/2024 2:22 AM ROOM CLEANER Miguel Angel Mccain MD LAB - CHEMISTRY ORDERABLES Final Result Performing Organization Address [facility] Co de Phone Number [facility] [phone] [place] [address] * (ABNORMAL) IRON + TRANSFERRIN PANEL (07/31/2024 2:15 AM ROOM CLEANER) Iron 84 40 - 150 ug/dL 07/31/2024 2:55 AM ROOM CLEANER [facility] Transferrin 123(L) 174 - 382 mg/dL 07/31/2024 2:55 AM ROOM CLEANER [facility] TIBC Calculated 154(L) 240 - 450 ug/dL 07/31/2024 2:55 AM ROOM CLEANER [facility] Iron Saturation % 55(H) 20 - 50 % 07/31/2024 2:55 AM ROOM CLEANER [facility] Blood BLOOD SPECIMEN / Unknown Venipuncture / Unknown 07/31/2024 2:15 AM ROOM CLEANER 07/31/2024 2:22 AM ROOM CLEANER Miguel Angel Mccain MD LAB - CHEMISTRY ORDERABLES Final Result Performing Organization Address [facility] Co de Phone Number [facility] [address] [place] [address] * TRANSFUSE RED BLOOD CELL LEUKOREDUCED UNIT(S) (07/30/2024 7:41 AM ROOM CLEANER) Peewee Esquivel DO NURSING - BLOOD PROD TRANSFUSION Final Result * BLOOD TYPE VERIFICATION (07/30/2024 2:06 AM ROOM CLEANER) ABO Rh B POS 07/30/2024 4:2 5 AM ROOM CLEANER [facility] Blood Bank BLOOD SPECIMEN / Unknown Venipuncture / Unknown 07/30/2024 2:06 AM ROOM CLEANER 07/30/2024 3:11 AM ROOM CLEANER Yi Grier MD LAB - BLOOD BANK ORDERABLES F inal Result Performing Organization Address [facility] Co de Phone Number [facility] [id number] [place] [address], [facility] [phone] * (ABNORMAL) PT-INR (07/30/2024 2:06 AM ROOM CLEANER) Only the most recent of2 resultswithin the time period is included. PT 19.8(H) 12.1 - 14.8 sec 07/30/2024 3:12 AM ROOM CLEANER [facility] Comment:This result represen ts a significant difference from this patient's most recent previous value. Clinical correlation is therefore recommended. INR 1.7(H) 0.9 - 1.1 07/30/2024 3:12 AM [facility] Blood BLOOD SPECIMEN / Unknown Venipuncture / Unknown 07/30/2024 2:06 AM ROOM CLEANER 07/30/2024 2:27 AM ROOM CLEANER Narrative [facility] - 07/30/2024 3:12 AM ROOM CLEANER Conventional Warfarin Anticoagulant Therapy: INR Reference Range: 2.0-3.0 Intensive Warfarin Anticoagulant Therapy: INR Reference Range: 2.5-3.5 Yi Grier MD LAB - COAGULATION ORDERABLES Final Result [facility] [address] [place] [address] * (ABNORMAL) CBC W/O DIFFERENTIAL (07/30/2024 2:06 AM [facility]) Only the most recent of3 resultswithin the time period is included. WBC 12.5(H) 4.0 - 10.7 x10E9/L 07/30/2024 2:30 AM [facility] RBC Count 2.06(L) 3.90 - 5.20 x10E12/L 07/30/2024 2:30 AM [facility] Hemoglobin 6.4(L) 11.9 - 15.8 g/dL 07/30/2024 2:30 AM [facility] Hematocrit 18.7(L) 34.8 - 46.1 % 07/30/2024 2:30 AM [facility] MCV 90.8 80.0 - 98.0 fL 07/30/2024 2:30 AM [facility] MCH 31.1 26.7 - 33.6 pg 07/30/2024 2:30 AM [facility] MCHC 34.2 31.7 - 36.3 g/dL 07/30/2024 2:30 AM [facility] RDW-CV 18.1(H) 11.3 - 14.8 % 07/30/2024 2:30 AM [facility] Platelet Count 161 150 - 420 x10E9/L 07/30/2024 2:30 AM ROOM CLEANER [facility] MPV 10.0 7.8 - 11.4 fL 07/30/2024 2:30 AM ROOM CLEANER [facility] Blood BLOOD SPECIMEN / Unknown Venipuncture / Unknown 07/30/2024 2:06 AM ROOM CLEANER 07/30/2024 2:27 AM ROOM CLEANER us Yi Grier MD LAB - HEMATOLOGY ORDERABLES F inal Result [facility] [address] [place] [address] * US ABDOMEN LIMITED (RUQ) (07/29/2024 2:29 PM ROOM CLEANER) Anatomical Region Laterality Modality Abdomen Ultrasound 07/29/2024 3:34 PM ROOM CLEANER Impressions 07/30/2024 10:05 AM ROOM CLEANER IMPRESSION: 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 Hepatic steatosis with a mass right lobe most consistent with focal fatty sparing. Lack of ability to compare to the outside images result in decreased sensitivity. > Interpreting Provider: Kameron Sprague MD on 07/30/2024 10:05 AM Narrative 07/30/2024 10:05 AM ROOM CLEANER PROCEDURE: US ABDOMEN LIMITED, DATE/TIME OF EXAM: 07/29/2024 2:29 PM, LOCATION [facility] INDICATION: K92.1: Melena ADDITIONAL CLINICAL INFORMATION: Ordering [...] OF EXAM: 07/29/2024 2:29 PM, LOCATION [facility] INDICATION: K92.1: Melena ADDITIONAL CLINICAL INFORMATION: Ordering [...] Kameron Sprague MD on 07/30/2024 10:05 AM us Fabio Santos MD ORDERABLES Final Result * EGD (07/29/2024 6:57 AM ROOM CLEANER) Report Endoscopy POC _ Patient Name: Sarahy Rodriguez Procedure Date: 07/29/2024 6:57 AM Date of : 1960 Admit Type: Inpatient Age: 64 Gender: Female Attending MD: Cathleen Estrada MD, [id number] _ Procedure: Upper GI endoscopy Indications: Melena [...] GI notes Procedure Code(s): --- Professional --- 58282, Esophagogastroduoden oscopy, flexible, transoral; diagnostic, including collection of specimen(s) by brushing or washing, when performed (separate procedure) --- Technical --- 06265, Esophagogastroduoden oscopy, flexible, transoral; diagnostic, including collection [...] K92.1, Melena (includes Hematochezia) CPT copyright 2020 [employer]. All rights reserved. The codes documented in this report are preliminary and upon switch crew supervisor review may be revised to meet current compliance requirements. Cathleen Estrada MD 07/29/2024 9:00:40 AM Number of Addenda: 0 Note Initiated On: 07/29/2024 6:57 AM [facility] 07/29/2024 6:57 AM ROOM CLEANER Narrative Procedure Note Cathleen Estrada MD - [...] for furtherevaluation. Ania Josue MD GI PROCEDURE ORDERABLES Edited Result - Final [facility] [place] [address] * CULTURE BLOOD (07/28/2024 10:03 PM ROOM CLEANER) Only the most recent of2 resultswithin the time period is included. Culture No growth day 5 LINO 08/03/2024 1:30 AM ROOM CLEANER [facility] Blood PERIPHERAL BLOOD / Unknown Venipuncture / Unknown 07/28/2024 10:03 PM ROOM CLEANER 07/28/2024 10:07 PM ROOM CLEANER Fabio Santos MD LAB - MICROBIOLOGY ORDERABLES F inal Result [facility] [address] [place] [address], [facility] [phone] * TYPE + SCREEN PANEL (07/28/2024 6:52 PM ROOM CLEANER) ABO Rh B POS 07/28/2024 9:52 PM ROOM CLEANER [facility] Comment:No history; collect retype. Antibody Screen NEG 9:52 PM ROOM CLEANER [facility] Blood Bank BLOOD SPECIMEN / Unknown Venipuncture / Unknown 07/28/2024 6:52 PM ROOM CLEANER 07/28/2024 8:53 PM ROOM CLEANER Fabio Santos MD LAB - BLOOD BANK ORDERABLES Fin al Result Performing Organization Address City/[facility]/ZIP Co de Phone Number [facility] [address] [place] [address], [facility] [phone] from Last 3 Months Insurance [facility] Advance Directives Documents on File Type Date Recorded Patient Motor Hotel Manager Expl anation Adv Directive/Living Will/POA 08/08/2024 10:51 PM Adv Directive/Living Will/POA 08/01/2024 8:23 PM Adv Directive/Living Will/POA 07/31/2024 7:48 PM * Full Code (Latest Code Status on File) Date Activated Date Inactivated Comments 07/28/2024 3:11 PM 08/07/2024 5:49 PM Care Teams Energy Trading Analyst Relationship Specialty Start Date End Date Priyank Zepeda MD [address] [place] [address] PCP - General 02/23/22
[2024-10-08 11:34] LABS: Albumin Level 2.9 g/dL (3.4-5.0); Anion Gap 9 mmol/L (4-12); Blood Urea Nitrogen 13 mg/dL (7-18); Calcium 8.3 mg/dL (8.5-10.1); Carbon Dioxide 25 mmol/L (21-32); Chloride 105 mmol/L (98-108); Estimated CRCL calculation 55 ml/min; Estimated Glomerular Filt Rate 56; Glucose 90 mg/dL (70-99); Osmolality Calculated 288 mOsm/kg (285-295); Phosphorus 3.2 mg/dL (2.6-4.7); Sodium 139 mmol/L (136-145); Thyroid Stimulating Hormone 8.45 uIU/mL (0.36-3.74)
[2024-10-08 12:37] VITALS: BP 132/77; PULSE 72; RESP 14; O2SAT 97
--- NOTE | 2024-10-08 12:46 | PC.NURSE ---
Patient here for #1 of 3 IV Venofer infusions. Has had Venofer infusions in the past. Education given. No concerns voiced. Infusion administered. SEE MAR/patient care notes. Tolerated well.
[2024-10-09 14:09] LABS: Parathyroid Intact 158 pg/mL (16-77)
== END 2024-10-08 10:26 | disposition home or self-care (01) ==
PROVIDERS: PCP Internal Medicine
DX: D50.9 Iron deficiency anemia, unspecified (principal); I81 Portal vein thrombosis; F45.8 Other somatoform disorders; E03.9 Hypothyroidism, unspecified; N18.31 Chronic kidney disease, stage 3a; E21.0 Primary hyperparathyroidism
CPT/HCPCS: 36415; 80069; 83970; 84443; 85025; 96365; 96366; J1756; J7050

== ENCOUNTER 2024-10-16 11:48 | Outpatient (CLI) | payer OTHER, SELFPAY ==
--- OUTSIDE RECORDS SUMMARY | 2024-10-16 11:53 | XMS_ITS ---
Author Organization Unknown Address [address] [place] [phone] Phone Care Team Providers Care Inner Tube Inserter Name Role Phone GARFIELD Ashby Attending Unavailable [...] em Smoking History Never smoker (Never Smoked) [id number] SNOMED CT Sex Female Vital Signs Vital Sign Value Unit Girard Value Girard Unit Date/Time Recent/Initial? Code Code System Body Mass Index 30.45 kg/m2 11/13/2023 14:43 Initial 96761 -5 INC Systolic Blood Pressure 136 mm[Hg] 12/14/2023 08:17 Initial 8480- 6 LOINC Diastolic Blood Pressure 78 mm[Hg] 12/14/2023 08:17 Initial 8462- 4 INC Body Surface Area 1.95 m2 11/13/2023 14:43 Initial 3140- 1 LOINC Height 165.100 0 cm 65.00 in 11/13/2023 14:43 Initial 8302- 2 INC O2 Saturation 99 % 2023 08:17 Initial 73039 -5 INC Pulse 57.0 /min 12/14/2023 08:17 Initial 8867- 4 LOINC Respiration 20 /min 12/14/19 08:17 Initial 9279- 1 LOINC Temperature 36.2 Kait 97.1 F 12/14/19 24 08:17 Initial 8310- 5 LOINC Weight 83.01 kg 183.00 lbs 11/13/2023 14:43 Initial 38183 -7 [facility] Medications Medication Start Date End Date Route Frequency Dose Code Code System Medication Instructions Home Meds Vitamin B12 1000 MCG Sublingual Tablet 12/14/2023 Unknown SUBLINGUAL ONCE A DAY [address] 1000 MCG SUBLINGUAL ONCE A DAY Tums Extra Strength 750 MG Oral Tablet, Chewable 12/14/2023 Unknown ORAL NEEDED 750 MG 7941364 RxNorm TAKE 750 MG ORAL NEEDED Amitriptyline 10MG Oral Tablet 12/14/2023 Unknown ORAL TWICE A DAY 10 MILLIGRA MS 971340 RxNorm TAKE 10 MILLIGRAMS ORAL TWICE A DAY Calcitriol 0.5MCG Oral Capsule, Liquid Filled 12/14/2023 Unknown ORAL TWICE A DAY 2 CAPSULE 958827 RxNorm TAKE 2 CAPSULE ORAL TWICE A DAY Calcium Citrate Powder 12/14/[address]TE NOT APPLICABLE 1 unit(s) RxNorm 1 EACH ROUTE NOT APPLICABLE Eliquis 5MG Oral Tablet 12/14/2023 12/14/19 24 ORAL TWICE A DAY 5 MILLIGRA MS 1580680 RxNorm TAKE 5 MILLIGRAMS ORAL TWICE A DAY FLUoxetine 20MG/5ML Oral Solution 12/14/2023 Unknown ORAL TWICE A DAY 710847 RxNorm TAKE mL ORAL TWICE A DAY Iron 325MG Oral Tablet 12/14/2023 Unknown ORAL THREE TIMES A DAY 325 M[address]RA MS 813947 RxNorm TAKE 325 MILLIGRAMS ORAL THREE TIMES A DAY Levothyroxine 125MCG Oral Tablet 12/14/2023 Unknown ORAL ONCE A DAY 0.5 TABLET 607349 RxNorm TAKE 0.5 TABLET ORAL ONCE A DAY Loratadine 10MG Oral Tablet 12/14/2023 Unknown ORAL NEEDED 10 MILLIGRA MS 937309 RxNorm TAKE 10 MILLIGRAMS ORAL NEEDED Metoprolol Succinate 50MG Oral Tablet, Extended Release 12/14/2023 Unknown ORAL ONCE A DAY 50 MILLIGRA MS 354506 RxNorm TAKE 50 MILLIGRAMS ORAL ONCE A DAY Potassium Chloride 20MEQ Oral Tablet, Extended Release 12/14/2023 Unknown ORAL TWICE A DAY 20 MEQ 6946634 RxNorm TAKE 20 MEQ ORAL TWICE A DAY Sodium Bicarbonate 650MG Oral Tablet 12/14/2023 Unknown ORAL THREE TIMES A DAY 650 MILLIGRA MS 361142 RxNorm TAKE 650 MILLIGRAMS ORAL THREE TIMES A DAY Tab-A-Ezio [id number] U-6MCG Oral Tablet 12/14/2023 Unknown ORAL ONCE A DAY 1 unit(s) 787922 RxNorm TAKE 1 EACH ORAL ONCE A [...] Code Syste m Vocal cord nodule completed 30626959 SNOMEDC T Fracture of tibia completed 33036607 SNOMEDC T Volvulus completed 1443846 SNOMEDCT APPENDECTOMY completed 35581922 SNOMEDCT Removal of kidney stone completed 4945249 S NOMEDCT Anesthesia for lower intesti nal endoscopic procedures, endoscope introduce 12/14/2023 completed 00199 CPT Gastric bypass completed 004532111 SNOMEDCT History of parathyroidectomy completed 1676441 47742641 SNOMEDCT Colonoscopy, flexible; with biopsy, single or multiple 12/14/2023 completed 40219 CPT Problems Problem Start Date Resolved Date Status Code Code System CHRONIC KIDNEY DISEASE, STAG E 3A active 812466299 SNOMED-CT Allergies and Adverse Reactions Allergy Substance Reaction Severity Start Date Concern Status Code Code System ADHESIVE Itching (SNOMED-CT: 811089986) Active SUCCINYLCHOLINE CHLORIDE HARD TO WAKE UP (SNOMED-CT: null) Active 3565 RxNorm CIPRO REDNESS IV ONLY (SNOMED-CT: null) Mild Active 039524 RxNorm No Known Drug Allergies Active 270122930 SNOMED-CT Plan of Treatment Colonoscopy 12/14/2023 Encounters Encounter Diagnosis Start Date Code Code Sys tem Noninfective gastroenteritis and colitis, unspecified 12/14/2023 SNOMED-CT Personal Care Team Section Performer Name Performer Role Active Date Inactive KIERAN Gilbert PCP - Primary care physician 2024-04-16
--- OUTSIDE RECORDS SUMMARY | 2024-10-16 11:53 | XMS_ITS | Encounter Summary ---
Author Organization [facility] Address [address] [facility] [address] [place] [address] Phone Care Team Providers Care Clerical Manager Name Role Phone Priyank Zepeda MD Primary Care Provider [phone] Encounter Details Date Type Department Care Team (Late Contact Info) Description 12/06/2019 Orders Only [facility]. [address] [facility] [address] [place] [phone] Kristofer Ortiz MD [address] [facility] [address] [place] [address] Chronic kidney disease stage 3 [...] Description 10/22/2024 10:45 AM CDT Office Visit [facility]. [address] [facility] [address] [place] [phone] Kristofer Ortiz MD [address] [place] [address] [address] documented as of this encounter Visit Diagnoses Diagnosis Chronic kidney disease stage 3 (HCC) documented in this encounter Care Teams Clerical Manager Relationship Specialty Start Date End Date Priyank Zepeda MD [address] [place] [address] PCP - General Internal Medicine 05/17/19 documented as of this encounter
--- OUTSIDE RECORDS SUMMARY | 2024-10-16 11:53 | XMS_ITS | Encounter Summary ---
Author Organization [facility] Address [address] [facility] [address] [place] [address] Phone Care Team Providers Care Database Modeler Name Role Phone Priyank Zepeda MD Primary Care Provider [phone] Encounter Details Date Type Department Care Team (Late Contact Info) Description 01/03/2020 Orders Only [facility]. [address] [facility] [address] [place] [phone] Kristofer Ortiz MD [address] [facility] [address] [place] [address] Chronic kidney disease stage 3 [...] Description 10/22/2024 10:45 AM CDT Office Visit [facility]. [address] [facility] [address] [place] [phone] Kristofer Ortiz MD [address] [place] [address] [address] documented as of this encounter Visit Diagnoses Diagnosis Chronic kidney disease stage 3 (HCC) documented in this encounter Care Teams Database Modeler Relationship Specialty Start Date End Date Priyank Zepeda MD [address] [place] [address] PCP - General Internal Medicine 05/17/19 documented as of this encounter
--- OUTSIDE RECORDS SUMMARY | 2024-10-16 11:53 | XMS_ITS | Encounter Summary ---
Author Organization [facility] Address [address] [place] [address] Phone Care Team Providers Care Aircraft Steel Fabricator Name Role Phone Priyank Zepeda MD Primary Care Provider [phone] Encounter Details Date Type Department Care Team (Late st Contact Info) Description 09/04/2024 [facility] [address] [place] [address] Priyank Zepeda MD [address] [place] [address] Secondary hyperparathyroidism of renal origin [...] - 47.0 % 09/04/2024 6:44 PM CDT [facility] MCV 97.6(H) 82.0 - 96.0 fL 09/04/2024 6:44 PM CDT [facility] MCH 30.8 26.0 - 34.0 pg 09/04/2024 6:44 PM CDT [facility] MCHC 31.6 31.0 - 36.0 g/dL 09/04/2024 6:44 PM CDT [facility] PLATELET COUNT 240 140 - 440 10(3)/mcL 09/04/2024 6:44 PM CDT [facility] RDW 18.8(H) 11.8 - 15.5 % 09/04/2024 6:44 PM CDT [facility] MPV 9.8 9.7 - 12.4 fL 09/04/2024 6:44 PM CDT [facility] NEUTROPHILS 75.4(H) 47.0 - 73.0 % 09/04/2024 6:44 PM CDT [facility] LYMPHOCYTES 11.9(L) 18.0 - 42.0 % 09/04/2024 6:44 PM CDT [facility] MONOCYTES 9.3 4.0 - 12.0 % 09/04/2024 6:44 PM CDT [facility] EOSINOPHILS 2.8 0.0 - 5.0 % 09/04/2024 6:44 PM CDT [facility] BASOPHILS 0.6 0.0 - 1.0 % 09/04/2024 6:44 PM CDT [facility] ABSOLUTE NEUTROPHILS 3.48 1.60 - 7.70 10(3)/mcL 09/04/2024 6:44 PM CDT [facility] ABSOLUTE LYMPHOCYTES 0.55(L) 1.30 - 3.20 10(3)/mcL 09/04/2024 6:44 PM CDT [facility] ABSOLUTE MONOCYTES 0.43 0.20 - 1.00 10(3)/mcL 09/04/2024 6:44 PM CDT [facility] ABSOLUTE EOSINOPHIL 0.13 0.00 - 0.40 10(3)/mcL 09/04/2024 6:44 PM CDT [facility] ABSOLUTE BASOPHILS 0.03 0.00 - 0.10 10(3)/mcL 09/04/2024 6:44 PM CDT [facility] NRBC PER 100 WBC 0 09/05/19 6:44 PM CDT [facility] RESULTS ARE CONSISTENT WITH PERIPHERAL SMEAR REVIEW Yes 09/04/2024 6:44 PM CDT [facility] RBC MORPHOLOGY CONSISTENT WITH INDICES Yes 09/04/2024 6:44 PM CDT [facility] Blood No Phlebotomy Charged / Unknown 09/04/2024 4:55 PM CDT 09/04/2024 6:06 PM CDT us Priyank Zepeda MD HEMATOLOGY ORDERABLES Final R esult [facility] [address] [place] [address] * (ABNORMAL) PREALBUMIN (PAB) (09/04/2024 4:55 PM CDT) Pathologist [facility] PRE ALBUMIN 13(L) 14 - 37 mg/dL 09/05/2024 6:00 PM CDT [facility] Blood No Phlebotomy Charged / Unknown 09/04/2024 4:55 PM CDT 09/04/2024 6:06 PM CDT us Priyank Zepeda MD CHEMISTRY ORDERABLES Final Re sult [facility] [address] [place] [address], * VITAMIN D, 25 HYDROXY TOTAL (09/04/2024 4:55 PM CDT) VITAMIN D, 25 HYDROX 19.0 ng/mL 09/04/2024 6:55 PM CDT [facility] Blood No Phlebotomy Charged / Unknown 09/04/2024 4:55 PM CDT 09/04/2024 6:06 PM CDT Narrative [facility] - 09/04/2024 6:55 PM CDT Published reference ranges for Vitamin D vary depending on time and place and method of testing, and on patient's age, sex, ethnicity and levels of other measured analytes such as parathormone, calcium and phosphorus. The result should be evaluated in conjunction with clinical findings and suspicions. [employer] and [employer] Clinical Practice Guidelines: Status Vitamin D levels (ng/mL) Deficient <=20 At risk of inadequacy 21-29 Sufficient 30-100 Centers of Disease Control and Prevention Guidelines: Status Vitamin D levels (ng/mL) Deficient <13 At risk of inadequacy 13-19 Sufficient 20-50 Possibly harmful >50 References: [employer], 2010 Dietary reference intakes for calcium and vitamin D. [place]: The National Academies Press. Yo M, Blayne N, Sara LEES, et al., Evaluation, treatment, and prevention of Vitamin D deficiency: an Endocrinology Clinical Practice Guideline. JCEM 2011 96: 7 7691-6329. Kiet A, Dario C, Yemi D, et al., Vitamin D Status: [place], , MIHS data brief, no. 59, [place]: National Center for Health Statistics. 2011. us Priyank Zepeda MD CHEMISTRY ORDERABLES Final Re sult [facility] [address] [place] [address] * (ABNORMAL) THYROID STIMULATING HORMONE (TSH) (09/04/2024 4:55 PM CDT) TSH 9.593(H) 0.300 - 5.000 mIU/L 09/04/2024 6:56 PM CDT [facility] Blood No Phlebotomy Charged / Unknown 09/04/2024 4:55 PM CDT 09/04/2024 6:06 PM CDT us Priyank Zepeda MD CHEMISTRY ORDERABLES Final Re sult [facility] [address] [place] [address] * (ABNORMAL) PHOSPHORUS (PO4) (09/04/2024 4:55 PM CDT) PHOSPHORUS 2.3(L) 2.5 - 4.5 mg/dL 09/04/2024 6:39 PM CDT [facility] Blood No Phlebotomy Charged / Unknown 09/04/2024 4:55 PM CDT 09/04/2024 6:06 PM CDT us Priyank Zepeda MD CHEMISTRY ORDERABLES Final Re sult Performing Organization Address City/[facility]/ZIP Co de Phone Number [facility] [address] [place] [address] * (ABNORMAL) CMP (COMPREHENSIVE METABOLIC PANEL) (09/04/2024 4:55 PM CDT) SODIUM 143 136 - 145 mmol/L 09/04/2024 6:39 PM CDT [facility] POTASSIUM 4.0 3.5 - 5.1 mmol/L 09/04/2024 6:39 PM CDT [facility] CHLORIDE 114(H) 98 - 107 mmol/L 09/04/2024 6:39 PM CDT [facility] CO2, VENOUS 23 22 - 30 mmol/L 09/04/2024 6:39 PM CDT [facility] ANION GAP 10.0 <18.0 mmol/L 09/04/2024 6:39 PM CDT [facility] GLUCOSE 87 70 - 99 mg/dL 09/04/2024 6:39 PM CDT [facility] BUN 10 10 - 20 mg/dL 09/04/2024 6:39 PM CDT [facility] CREATININE, BLOOD 0.77 0.60 - 1.00 mg/dL 09/04/2024 6:39 PM [facility] BUN/CREATININE RATIO 13 12 - 20 ratio 09/04/2024 6:39 PM [facility] TOTAL PROTEIN 6.8 6.0 - 8.0 g/dL 09/04/2024 6:39 PM [facility] ALBUMIN 2.7(L) 3.5 - 5.0 g/dL 09/04/2024 6:39 PM [facility] A/G RATIO 0.7(L) 1.0 - 2.2 09/04/2024 6:39 PM [facility] CALCIUM 8.2(L) 8.7 - 10.5 mg/dL 09/04/2024 6:39 PM [facility] T BILI 0.4 0.2 - 1.2 mg/dL 09/04/2024 6:39 PM [facility] SGOT (AST) 52(H) <43 U/L 09/04/2024 6:39 PM [facility] SGPT (ALT) 37 <56 U/L 09/04/2024 6:39 PM [facility] ALKALINE PHOSPHATASE 137 40 - 150 U/L 09/04/2024 6:39 PM [facility] GFR, ESTIMATED >60 >=60 09/04/2024 6:39 PM [facility] Comment: Creatinine Clearance is the preferred criteria for selecting drug dose adjustments in renally impaired patients. The GFR is provided as additional pertinent clinical information. GFR is reported in mL/min/1.73 sq m. Calculation based on the Chronic Kidney Disease Epidemiology Collaboration (CKD- EPI) equation refit without adjustment for race. GFR, EST. >60 >=60 025 6:39 PM [facility] GFR, EST. NONAFRICAN >60 >=60 09/04/2024 6:39 PM [facility] Blood No Phlebotomy Charged / Unknown 09/04/2024 4:55 PM CDT 09/04/2024 6:06 PM CDT us Priyank Zepeda MD CHEMISTRY ORDERABLES Final Re sult [facility] [address] [place] [address] documented in this encounter Visit Diagnoses Diagnosis Secondary hyperparathyroidism of renal origin (HCC) Secondary hyperparathyroidism (of renal origin) Vitamin D deficiency, unspecified Hypothyroidism, unspecified documented in this encounter Care Teams Aircraft Steel Fabricator Relationship Specialty Start Date End Date Priyank Zepeda MD [address] [place] [address] PCP - General Internal Medicine 08/08/24 documented as of this encounter
--- OUTSIDE RECORDS SUMMARY | 2024-10-16 11:53 | XMS_ITS | Encounter Summary ---
Author Organization [facility] Address [address] [place] [address] Phone Care Team Providers Care Women Nurse Name Role Phone Priyank Zepeda MD Primary Care Provider [phone] Reason for Visit * Reason Onset Date Comments Medication Management 08/13/2024 Encounter Details Date Type Department Care Team (Late st Contact Info) Description 08/13/2024 [facility] [address] [place] [address] Eloisa Ruiz, PT Medication Management Social History [...] on filedocumented in this encounter Care Teams Women Nurse Relationship Specialty Start Date End Date Priyank Zepeda MD [address] [place] [address] PCP - General Internal Medicine 08/08/24 documented as of this encounter
--- OUTSIDE RECORDS SUMMARY | 2024-10-16 11:54 | XMS_ITS | Clinical Summary ---
Author Organization [facility] Address [address] [address] Care Team Providers Care Returned Item Clerk Name Role Phone Priyank Zepeda MD Primary Care Provider [phone] Allergies Active Allergy Reactions Criticality Noted Date [...] mouth in the morning. 5 Active pancrelipase, Dco-Snrf-Muxi, (CREON) 75360-[address] units capsule Take 1 capsule by mouth in the morning and 1 capsule at noon and 1 capsule in the evening. Take with meals. 5 Active Cholecalciferol (Vitamin D3) 1.25 MG (46586 UT) capsule Take 50,000 Units by mouth in the morning and 50,000 Units in the evening. Active Active Problems Problem Noted Date Diagnosed Date Acidosis 05/09/2019 Chronic kidney disease stage 2 05/09/2019 Essential hypertension 05/09/2019 Primary hyperparathyroidism 05/09/2019 Encounters Date Type Department Care Team Description 10/10/2024 Documentation Only [facility]. 2 [facility] [address] [address] Kristofer Ortiz MD from Last 3 [...] CDT Respiratory Rate 18 05/15/2018 11:00 AM ART THERAPY CERTIFIED SUPERVISOR Oxygen Saturation 96% 01/23/2024 1:26 PM CDT Inhaled Oxygen Concentration - - Weight 77.6 kg (171 lb) 01/23/2024 1:26 PM CDT Height 165.1 cm (5' 5 ) 01/23/2024 1:26 PM CDT Body Mass Index 28.46 01/23/2024 1:26 PM CDT Plan of Treatment Upcoming Encounters Date Type Department Care Team (Late st Contact Info) Description 10/22/2024 10:45 AM CDT Office Visit [facility]. 2 [facility] [address] [place] [address] Kristofer Ortiz MD [address] [facility] [address] [place] [address] Health Maintenance Due Date Last Done Comments Breast Cancer Screening 1960 Pneumococcal Vaccine: 50+ Years (1 of 2 - PCV) 1978 Colorectal Cancer Screening: Colonoscopy Discontinued 12/14/2023, 11/04/2021 Influenza Vaccine Completed 03/19/2024, , 03/06/2022, Additional history exists Hepatitis B Vaccine Aged Out No longe r eligible based on patient's age to complete this topic Insurance [facility] Advance Directives Documents on File Type Date Recorded Patient [employer] Power of Armored Car Messenger 10/25/2021 11:10 AM Othe r - POA Power of Armored Car Messenger 10/25/2021 11:10 AM Othe r - POA Care Teams Returned Item Clerk Relationship Specialty Start Date End Date Priyank Zepeda MD [address] [place] [address] PCP - General Internal Medicine 05/17/19
--- OUTSIDE RECORDS SUMMARY | 2024-10-16 11:54 | XMS_ITS | Clinical Summary ---
Author Organization [facility] Address [address] [address] Phone Care Team Providers Care [employer] Name Role Phone Priyank Zepeda MD Primary Care Provider [phone] Allergies No known active allergies Medications calcium [...] route 2 times per day Active Pancrelipase, Bmz-Yeeo-Iwdr, (CREON PO) Take 24,000 Units by mouth 3 times daily (with meals). Take 1 capsule by mouth 3 times daily with meals Active spironolactone (ALDACTONE) 25 MG Tablet Take 25 mg by mouth daily. Active BETA CAROTENE PO Take 7,500 mcg by mouth daily. Active Cyanocobalamin (VITAMIN B12 PO) Take 2,500 mcg by mouth daily. Active pancrelipase, lipase-protease- amylase, (Creon) [address]-[address] Particles Take 1 Capsule [...] 09/16/2024 1:30 PM CDT Home Care Visit [address] [address] Eloisa Ruiz, PT PT - OASIS DISCHARGE 09/15/2024 Nurse Triage [address] [address] Virginia Andres, RN Blood in Stools 09/12/2024 2:00 PM CDT Home Care Visit [address] [address] Voila Richard, SENIOR STATISTICIAN PT - HOME VISIT 09/12/2024 10:00 AM CDT Home Care Visit [address] [address] Mary Perez, RN SN - DISCIPLINE DISCHARGE 09/12/2024 Travel 09/11/2024 1:30 PM CDT Home Care Visit [address] [address] Moni Mendoza OT OT - DISCIPLINE DISCHARGE 09/10/2024 2:30 PM CDT Home Care Visit [address] [address] Viola Richard, SENIOR STATISTICIAN PT - HOME VISIT 09/06/2024 10:00 AM CDT Home Care Visit [address] [address] Asia Salazar, BARRY OT - HOME VISIT 09/06/2024 Home Care Visit [address] [address] Asia Salazar, BARRY CASE COMMUNICATION 09/04/2024 2:00 PM CDT Home Care Visit [address] [address] Mary Perez, RN SN - LAB 09/04/2024 10:30 AM CDT Home Care Visit [address] [address] Viola Richard, SENIOR STATISTICIAN PT - HOME VISIT 09/04/2024 Lab Requisition [facility] [address] [place] [address] Priyank Zepeda MD Secondary hyperparathyroidism of renal origin (HCC); Vitamin D deficiency, unspecified; Hypothyroidism, unspecified 09/04/2024 Travel 09/03/2024 12:30 PM CDT Home Care Visit [address] [address] Asia Salazar, AG SERVICE MANAGER OT - HOME VISIT 09/03/2024 11:00 AM CDT Home Care Visit [address] [address] Lawanda Fragoso LPN SN - HOME VISIT 09/02/2024 12:00 PM CDT Home Care Visit [address] [address] Eloisa Ruiz, PT PT - REASSESSMENT 08/30/2024 10:30 AM CDT Home Care Visit [address] [address] Asia Salazar, BARRY OT - HOME VISIT 08/29/2024 9:30 AM CDT Home Care Visit [address] [address] Viola Richard, SENIOR STATISTICIAN PT - HOME VISIT 08/29/2024 Travel 08/28/2024 9:30 AM CDT Home Care Visit [address] [address] Asia Salazar, AG SERVICE MANAGER OT - HOME VISIT 08/27/2024 1:00 PM CDT Home Care Visit [address] [address] Mary Perez RN SN - HOME VISIT 08/27/2024 11:00 AM CDT Home Care Visit [address] [address] Viola Richard, SENIOR STATISTICIAN PT - HOME VISIT 08/27/2024 Travel 08/23/2024 12:00 PM CDT Home Care Visit [address] [address] Asia Salazar, BARRY OT - HOME VISIT 08/22/2024 1:00 PM CDT Home Care Visit [address] [address] Viola Richard, SENIOR STATISTICIAN PT - HOME VISIT 08/20/2024 12:00 PM CDT Home Care Visit [address] [address] Mary Perez RN SN - HOME HEALTH INITIAL EVALUATION 08/20/2024 11:15 AM CDT Home Care Visit [address] [address] Moni Mendoza, OT OT - HOME VISIT 08/20/2024 10:00 AM CDT Home Care Visit [address] [address] Viola Richard, SENIOR STATISTICIAN PT - HOME VISIT 08/20/2024 Travel 08/18/2024 Home Care Visit [address] [address] Eloisa Ruiz, PT CARE CONFERENCE 08/16/2024 1:30 PM CDT Home Care Visit [address] [address] Eloisa Ruiz, PT PT - HOME VISIT 08/16/2024 12:45 PM CDT Home Care Visit [address] [address] Moni Mendoza, OT OT - INITIAL EVALUATION 08/16/[address] [address] Eloisa Ruiz, PT Medication Management 08/14/2024 Home Care Visit [address] [address] Eloisa Ruiz, PT TELEPHONE ENCOUNTER 08/14/2024 Home Care Visit [address] [address] Eloisa Ruiz, PT TELEPHONE ENCOUNTER 08/13/2024 2:30 PM CDT Home Care Visit [address] [address] Eloisa Riuz, PT PT - OASIS START OF CARE 08/13/[address] [address] Eloisa Ruiz, PT Medication Management 08/13/2024 Plan of Care Documentation [address] [address] from Last 3 Months Social History Tobacco [...] 19.0 ng/mL 09/04/2024 6:55 PM CDT [facility] Blood No Phlebotomy Charged / Unknown 09/04/2024 4:55 PM CDT 09/04/2024 6:06 PM CDT Narrative [facility] - 09/04/2024 6:55 PM CDT Published reference ranges for Vitamin D vary depending on time and place and method of testing, and on patient's age, sex, ethnicity and levels of other measured analytes such as parathormone, calcium and phosphorus. The result should be evaluated in conjunction with clinical findings and suspicions. [employer] and Endocrine Clinical Practice Guidelines: Status Vitamin D levels (ng/mL) Deficient <=20 At risk of inadequacy 21-29 Sufficient 30-100 Centers of Disease Control and Prevention Guidelines: Status Vitamin D levels (ng/mL) Deficient <13 At risk of inadequacy 13-19 Sufficient 20-50 Possibly harmful >50 References: [employer], 2010 Dietary reference intakes for calcium and vitamin D. [place]: The National Academies Press. Yo M, Blayne N, Sara LEES, et al., Evaluation, treatment, and prevention of Vitamin D deficiency: an Endocrinology Clinical Practice Guideline. JCEM 2011 96: 7 4415-4494. Kiet A, Dario C, Yemi D, et al., Vitamin D Status: [place], , [facility] data brief, no. 59, MD [place]: National Center for Health Statistics. 2011. us Priyank Zepeda MD CHEMISTRY ORDERABLES Final Re sult [facility] [place] [address] * (ABNORMAL) CBC WITH AUTO DIFFERENTIAL (09/04/2024 4:55 PM CDT) WBC 4.62 4.00 - 12.00 10(3)/mcL 09/04/2024 6:44 PM CDT [facility] RBC 3.31(L) 3.80 - 5.30 10(6)/mcL 09/04/2024 6:44 PM CDT [facility] HEMOGLOBIN (HGB) 10.2(L) 12.0 - 15.8 g/dL 09/04/2024 6:44 PM CDT [facility] HEMATOCRIT (HCT) 32.3(L) 36.0 - 47.0 % 09/04/2024 6:44 PM CDT [facility] MCV 97.6(H) 82.0 - 96.0 fL 09/04/2024 6:44 PM CDT [facility] MCH 30.8 26.0 - 34.0 pg 09/04/2024 6:44 PM CDT [facility] MCHC 31.6 31.0 - 36.0 g/dL 09/04/2024 6:44 PM CDT [facility] PLATELET COUNT 240 140 - 440 10(3)/mcL 09/04/2024 6:44 PM CDT [facility] RDW 18.8(H) 11.8 - 15.5 % 09/04/2024 6:44 PM CDT [facility] MPV 9.8 9.7 - 12.4 fL 09/04/2024 6:44 PM CDT [facility] NEUTROPHILS 75.4(H) 47.0 - 73.0 % 09/04/2024 6:44 PM CDT [facility] LYMPHOCYTES 11.9(L) 18.0 - 42.0 % 09/04/2024 6:44 PM CDT [facility] MONOCYTES 9.3 4.0 - 12.0 % 09/04/2024 6:44 PM CDT [facility] EOSINOPHILS 2.8 0.0 - 5.0 % 09/04/2024 6:44 PM CDT [facility] BASOPHILS 0.6 0.0 - 1.0 % 09/04/2024 6:44 PM CDT [facility] ABSOLUTE NEUTROPHILS 3.48 1.60 - 7.70 10(3)/mcL 09/04/2024 6:44 PM CDT [facility] ABSOLUTE LYMPHOCYTES 0.55(L) 1.30 - 3.20 10(3)/mcL 09/04/2024 6:44 PM CDT [facility] ABSOLUTE MONOCYTES 0.43 0.20 - 1.00 10(3)/mcL 09/04/2024 6:44 PM CDT [facility] ABSOLUTE EOSINOPHIL 0.13 0.00 - 0.40 10(3)/mcL 09/04/2024 6:44 PM CDT [facility] ABSOLUTE BASOPHILS 0.03 0.00 - 0.10 10(3)/mcL 09/04/2024 6:44 PM CDT [facility] NRBC PER 100 WBC 0 09/05/19 6:44 PM CDT [facility] RESULTS ARE CONSISTENT WITH PERIPHERAL SMEAR REVIEW Yes 09/04/2024 6:44 PM CDT [facility] RBC MORPHOLOGY CONSISTENT WITH INDICES Yes 09/04/2024 6:44 PM CDT [facility] Blood No Phlebotomy Charged / Unknown 09/04/2024 4:55 PM CDT 09/04/2024 6:06 PM CDT us Priyank Zepeda MD HEMATOLOGY ORDERABLES Final R esult Performing Organization Address City/[facility]/ZIP Co de Phone Number [facility] [place] [address] * (ABNORMAL) THYROID STIMULATING HORMONE (TSH) (09/04/2024 4:55 PM CDT) [facility] TSH 9.593(H) 0.300 - 5.000 mIU/L 09/04/2024 6:56 PM CDT [facility] Blood No Phlebotomy Charged / Unknown 09/04/2024 4:55 PM CDT 09/04/2024 6:06 PM CDT us Priyank Zepeda MD CHEMISTRY ORDERABLES Final Re sult [facility] [place] [address] * (ABNORMAL) PHOSPHORUS (PO4) (09/04/2024 4:55 PM CDT) PHOSPHORUS 2.3(L) 2.5 - 4.5 mg/dL 09/04/2024 6:39 PM CDT [facility] Blood No Phlebotomy Charged / Unknown 09/04/2024 4:55 PM CDT 09/04/2024 6:06 PM CDT us Priyank Zepeda MD CHEMISTRY ORDERABLES Final Re sult [facility] [place] [address] * (ABNORMAL) CMP (COMPREHENSIVE METABOLIC PANEL) (09/04/2024 4:55 PM CDT) Pathologist [facility] SODIUM 143 136 - 145 mmol/L 09/04/2024 6:39 PM CDT [facility] POTASSIUM 4.0 3.5 - 5.1 mmol/L 09/04/2024 6:39 PM CDT [facility] CHLORIDE 114(H) 98 - 107 mmol/L 09/04/2024 6:39 PM CDT [facility] CO2, VENOUS 23 22 - 30 mmol/L 09/04/2024 6:39 PM CDT [facility] ANION GAP 10.0 <18.0 mmol/L 09/04/2024 6:39 PM CDT [facility] GLUCOSE 87 70 - 99 mg/dL 09/04/2024 6:39 PM CDT [facility] BUN 10 10 - 20 mg/dL 09/04/2024 6:39 PM CDT [facility] CREATININE, BLOOD 0.77 0.60 - 1.00 mg/dL 09/04/2024 6:39 PM CDT [facility] BUN/CREATININE RATIO 13 12 - 20 ratio 09/04/2024 6:39 PM CDT [facility] TOTAL PROTEIN 6.8 6.0 - 8.0 g/dL 09/04/2024 6:39 PM CDT [facility] ALBUMIN 2.7(L) 3.5 - 5.0 g/dL 09/04/2024 6:39 PM CDT [facility] A/G RATIO 0.7(L) 1.0 - 2.2 09/04/2024 6:39 PM CDT [facility] CALCIUM 8.2(L) 8.7 - 10.5 mg/dL 09/04/2024 6:39 PM CDT [facility] T BILI 0.4 0.2 - 1.2 mg/dL 09/04/2024 6:39 PM CDT [facility] SGOT (AST) 52(H) <43 U/L 09/04/2024 6:39 PM CDT [facility] SGPT (ALT) 37 <56 U/L 09/04/2024 6:39 PM CDT [facility] ALKALINE PHOSPHATASE 137 40 - 150 U/L 09/04/2024 6:39 PM CDT [facility] GFR, ESTIMATED >60 >=60 09/04/2024 6:39 PM CDT [facility] Comment: Creatinine Clearance is the preferred criteria for selecting drug dose adjustments in renally impaired patients. The GFR is provided as additional pertinent clinical information. GFR is reported in mL/min/1.73 sq m. Calculation based on the Chronic Kidney Disease Epidemiology Collaboration (CKD- EPI) equation refit without adjustment for race. GFR, EST. >60 >=60 025 6:39 PM CDT [facility] GFR, EST. NONAFRICAN >60 >=60 09/04/2024 6:39 PM CDT [facility] Blood No Phlebotomy Charged / Unknown 09/04/2024 4:55 PM CDT 09/04/2024 6:06 PM CDT us Priyank Zepeda MD CHEMISTRY ORDERABLES Final Re sult [facility] [place] [address] * (ABNORMAL) PREALBUMIN (PAB) (09/04/2024 4:55 PM CDT) PRE ALBUMIN 13(L) 14 - 37 mg/dL 09/05/2024 6:00 PM CDT [facility] Blood No Phlebotomy Charged / Unknown 09/04/2024 4:55 PM CDT 09/04/2024 6:06 PM CDT us Priyank Zepeda MD CHEMISTRY ORDERABLES Final Re sult [facility] [address] [place] [address], from Last 3 Months Insurance MEDICAID [employer] Advance Directives Documents on File Type Date Recorded Patient Pearl Stringer Expl anation Power of Communications Coordinator for Health Care 08/26/2024 9:18 AM POA-HC Power of Communications Coordinator for Health Care 08/26/2024 9:18 AM POA-HC Power of Communications Coordinator for Health Care 08/26/2024 9:13 AM POA-HC Power of Communications Coordinator for Health Care 08/26/2024 9:08 AM POA-HC Power of Communications Coordinator for Health Care 08/14/2024 12:10 PM POA HC 07/30/2024 * Full Code (Latest Code Status on File) Date Activated Date Inactivated Comments 08/13/2024 10:26 PM Care Teams [employer] Relationship Specialty Start Date End Date Priyank Zepeda MD [address] [place] [address] PCP - General Internal Medicine 08/08/24
--- OUTSIDE RECORDS SUMMARY | 2024-10-16 11:54 | XMS_ITS | Clinical Summary ---
Author Organization [facility] Press Play Address [address] [place] [address] Care Team Providers Care Auto Body Mechanic Name Role Phone Priyank Zepeda MD Primary Care Provider [phone] Source Comments [facility],non-owned Affiliates and Associated Physician Practices is amultiple site organization consisting of ambulatory clinics and hospital sitesin [place], [place], [place] and [place]. This disclosure is being madepursuant to the Care Everywhere program and may not contain all information available regarding this patient. Last updated 18.[facility] Press Play Allergies Active Allergy Reactions Criticality Noted Date [...] once daily 42 Each 08/07/2024 1:10 PM [facility] 5 Active ferrous sulfate 325 (65 FE) MG tablet Take 1 (one) tablet by mouth once daily after lunch 30 tablet 08/07/2024 1:10 PM [facility] 5 Active folic acid (Folvite) 1 MG tablet Take 1 (one) tablet by mouth once daily 30 tablet 08/07/2024 1:10 PM [facility] 5 Active pantoprazole EC (Protonix) 40 MG tablet Take 1 (one) tablet by mouth 2 times daily, before breakfast and supper 60 tablet 08/07/2024 1:10 PM [facility] 5 Active sucralfate (Carafate) 1 GM/10ML suspension Take 10 mL by mouth 4 times daily - before meals & nightly 420 mL 08/07/2024 1:10 PM [facility] 5 Active Cholecalciferol (vitamin D3) 1.25 MG (19563 UT) capsule Take 1 (one) capsule by mouth every 7 days 5 capsule 5 Active furosemide (Lasix) 40 MG tablet Take 1 (one) tablet by mouth once daily 30 tablet 08/07/2024 1:10 PM [facility] 5 Active Calcium Carbonate Antacid (calcium carbonate, 500 mg elemental Ca/5 mL,) 1250 MG/5ML suspension Take 10 mL by mouth 3 times daily with meals 473 mL 1 5 Active pancrelipase (Creon 24,000) 92545-91578 units capsule Take 1 (one) capsule by [...] Department Care Team Description 07/29/2024 8:42 AM [facility] Anesthesia Event [facility] [address] [place] [id number] Bozena Osullivan, Mary Ryan, PRIMARY COUNSELOR-SUSPECT ARTIST 07/29/2024 8:30 AM [facility] - 07/29/2024 9:00 AM [facility] Surgery [facility] [address] [place] [id number] Cathleen Estrada MD ESOPHAGOGASTRODUODENOSCOPY (EGD) DIAGNOSTIC 07/28/2024 2:19 PM [facility] - 08/07/2024 4:44 PM [facility] Hospital Encounter [facility] [address] [place] [id number] Yi Grier MD Fatima, Noor E, MD [...] medical care, and heating? Somewhat hard 07/28/2024 [facility] [place] [facility] Occup[facility] - Occupational Stress [...] any time in the past 12 m [facility], were you homeless or living in a jail (including now)? No 07/28/2024 Comments Unknown Sex and Gender Information Value Date Recorded Sex Assigned at Not on file Legal Sex Female 9:40 AM CDT Gender Identity Not on file Sexual Orientation Not on file Last Filed Vital Signs Vital Sign Reading Time Taken Comments Blood Pressure 112/78 08/07/2024 2:44 PM [facility] Pulse 93 08/07/2024 2:44 PM [facility] Temperature 37.5 C (99.5 F) 08/07/2024 11:33 AM [facility] Respiratory Rate 18 08/07/2024 11:3 3 AM [facility] Oxygen Saturation 97% 08/07/2024 2:44 PM [facility] Inhaled Oxygen Concentration - - Weight 87.5 kg (192 lb 14.4 oz) 03/05/2 025 12:04 AM [facility] Height 165.1 cm (5' 5 ) 07/28/2024 4:01 PM [facility] Body Mass Index 32.1 07/28/2024 4:01 PM [facility] Plan of Treatment Health Maintenance Due Date [...] CARDIAC RHYTHM STRIP ORDER 08/08/2024 11:03 PM [facility] APHERESIS/TRANSFUSIO N ORDER 08/08/2024 11:03 PM [facility] B-TYPE NATRIURETIC PEPTIDE AM Draw 08/07/2024 1:59 AM [facility] COMPREHENSIVE METABOLIC PANEL AM Draw 08/07/2024 1:59 AM [facility] VAS BILATERAL VENOUS DUPLEX LE PENDING DISCHARGE 08/06/2024 2:30 PM [facility] Bilateral leg edema MAGNESIUM BLOOD Routine 08/06/2024 6:07 AM [facility] BASIC METABOLIC PANEL (CALCIUM TOTAL) Routine 08/06/2024 6:07 AM [facility] PHOSPHORUS BLOOD Routine 08/06/2024 6:07 AM [facility] MRI LUMBAR SPINE WO CONTRAST Routine 08/05/2024 9:48 AM [facility] Acute midline low back pain without sciatica PHOSPHORUS BLOOD Routine 08/05/2024 6:53 AM [facility] COMPREHENSIVE METABOLIC PANEL AM Draw 08/05/2024 6:53 AM [facility] MAGNESIUM BLOOD AM Draw 08/05/2024 6:53 AM [facility] CBC W AUTO DIFFERENTIAL AM Draw 08/05/2024 6:53 AM [facility] PROTEIN URINE TIMED QUANTITATIVE Routine 08/04/2024 1:55 PM [facility] URIC ACID URINE TIMED Routine 08/04/2024 1:55 PM [facility] CREATININE CLEARANCE URINE TIMED + BLOOD Routine 08/04/2024 1:55 PM [facility] CALCIUM URINE TIMED Routine 08/04/2024 1 :55 PM [facility] COMPREHENSIVE METABOLIC PANEL AM Draw 08/04/2024 6:55 AM [facility] MAGNESIUM BLOOD AM Draw 08/04/2024 6:55 AM [facility] CBC W AUTO DIFFERENTIAL AM Draw 08/04/2024 6:55 AM [facility] URINALYSIS REFLEX TO MICROSCOPIC NO CULTURE Routine 08/03/2024 12:49 PM [facility] COMPREHENSIVE METABOLIC PANEL AM Draw 08/03/2024 9:26 AM [facility] MAGNESIUM BLOOD AM Draw 08/03/2024 9:26 AM [facility] CBC W AUTO DIFFERENTIAL AM Draw 08/03/2024 9:26 AM [facility] XR LUMBAR SPINE 2 OR 3VW Routine 08/02/2024 2:10 PM [facility] Acute midline low back pain without sciatica PTH INTACT W/O CALCIUM Routine 08/02/2024 3:19 AM [facility] MAGNESIUM BLOOD AM Draw 08/02/2024 3:19 AM [facility] RENAL FUNCTION PANEL AM Draw 08/02/2024 3:19 AM [facility] CBC W AUTO DIFFERENTIAL AM Draw 08/02/2024 3:19 AM [facility] CALCIUM BLOOD STAT 08/01/2024 3:41 AM [facility] MAGNESIUM BLOOD AM Draw 08/01/2024 1:20 AM [facility] RENAL FUNCTION PANEL AM Draw 08/01/2024 1:20 AM [facility] CBC W AUTO DIFFERENTIAL AM Draw 08/01/2024 1:20 AM [facility] HGB HCT PANEL Timed 07/31/2024 7:39 AM [facility] TRANSFUSE RED BLOOD CELL LEUKOREDUCED UNIT(S) Routine 07/31/2024 3:40 AM [facility] PREPARE RBC LEUKOREDUCED UNIT Routine 07/31/2024 3:35 AM [facility] MAGNESIUM BLOOD AM Draw 07/31/2024 2:15 AM [facility] RENAL FUNCTION PANEL AM Draw 07/31/2024 2:15 AM [facility] CBC W AUTO DIFFERENTIAL AM Draw 07/31/2024 2:15 AM [facility] VITAMIN D 25-HYDROXY AM Draw 07/31/2024 2:15 AM [facility] VITAMIN B12 AM Draw 07/31/2024 2:15 AM [facility] FOLATE Routine 07/31/2024 2:15 AM [facility] IRON + TRANSFERRIN PANEL Routine 07/31/2024 2:15 AM [facility] HGB HCT PANEL Timed 07/30/2024 10:03 AM [facility] TRANSFUSE RED BLOOD CELL LEUKOREDUCED UNIT(S) Routine 07/30/2024 5:20 AM [facility] PREPARE RBC LEUKOREDUCED UNIT Routine 07/30/2024 5:15 AM [facility] BLOOD TYPE VERIFICATION Routine 07/30/2024 2:06 AM [facility] CBC W/O DIFFERENTIAL AM Draw 07/30/2024 2:06 AM [facility] PT-INR AM Draw 07/30/2024 2:06 AM [facility] BASIC METABOLIC PANEL (CALCIUM TOTAL) AM Draw 07/30/2024 2:06 AM [facility] HGB HCT PANEL Timed 07/29/2024 9:08 PM [facility] US ABDOMEN LIMITED Routine 07/29/2024 2: 29 PM [facility] Gastrointestinal hemorrhage with melena HGB HCT PANEL Routine 07/29/2024 10:19 AM [facility] PT-INR AM Draw 07/29/2024 10:19 AM [facility] MA ED EGD FLEX TRANSORAL DX 07/29/2024 8:30 AM [facility] EGD Routine 07/29/2024 6:57 AM [facility] CBC W/O DIFFERENTIAL Routine 07/29/2024 6:42 AM [facility] COMPREHENSIVE METABOLIC PANEL Routine 07/29/2024 6:42 AM [facility] MAGNESIUM BLOOD Routine 07/29/2024 6:42 AM [facility] PHOSPHORUS BLOOD Routine 07/29/2024 6:42 AM [facility] CULTURE BLOOD Timed 07/28/2024 10:03 PM [facility] CULTURE BLOOD Timed 07/28/2024 8:16 PM [facility] TYPE + SCREEN PANEL Routine 07/28/2024 6 :52 PM [facility] COMPREHENSIVE METABOLIC PANEL STAT 07/28/2024 5:25 PM [facility] CBC W/O DIFFERENTIAL STAT 07/28/2024 5:25 PM [facility] from Last 3 Months Results * CARDIAC RHYTHM STRIP ORDER (08/08/2024 11:03 PM [facility]) Narrative 08/08/2024 11:03 PM [facility] Ordered by an unspecified provider. us Scanned Document CARDIAC SERVICES ORDERABLES Fin al Result * APHERESIS/TRANSFUSION ORDER (08/08/2024 11:03 PM [facility]) Narrative 08/08/2024 11:03 PM [facility] Ordered by an unspecified provider. us Scanned Document NURSING - VITAL SIGNS AND ASSES SMENT Final Result * B-TYPE NATRIURETIC PEPTIDE (08/07/2024 1:59 AM [facility]) BNP 35 <=100 pg/mL 08/07/2024 2:52 AM [facility] Blood BLOOD SPECIMEN / Unknown Venipuncture / Unknown 08/07/2024 1:59 AM [facility] 08/07/2024 2:19 AM [facility] Chika Chew MD LAB - CHEMISTRY ORDERABLES Final Result [facility] [address] [place] [address] * (ABNORMAL) COMPREHENSIVE METABOLIC PANEL (08/07/2024 1:59 AM [facility]) Only the most recent of6 resultswithin the time period is included. Glucose 97 70 - 99 mg/dL 08/07/2024 2:55 AM [facility] Sodium 136 136 - 145 mmol/L 08/07/2024 2:55 AM [facility] Potassium 3.9 3.5 - 5.1 mmol/L 08/07/2024 2:55 AM [facility] Chloride 104 98 - 107 mmol/L 08/07/2024 2:55 AM [facility] CO2 23 22 - 29 mmol/L 08/07/2024 2:55 AM [facility] Calcium 6.8(L) 8.4 - 10.4 mg/dL 08/07/2024 2:55 AM [facility] Anion Gap 9 6 - 16 mmol/L 08/07/2024 2:55 AM [facility] BUN 9 7 - 26 mg/dL 08/07/2024 2:55 AM [facility] Creatinine 0.95 0.57 - 1.11 mg/dL 08/07/2024 2:55 AM [facility] Alkaline Phosphatase 91 40 - 150 U/L 08/07/2024 2:55 AM [facility] ALT 21 0 - 55 U/L 08/07/2024 2:55 AM [facility] AST 28 5 - 34 U/L 08/07/2024 2:55 AM [facility] Protein Total 4.9(L) 6.4 - 8.3 gm/dL 08/07/2024 2:55 AM [facility] Albumin 2.1(L) 3.4 - 5.0 gm/dL 08/07/2024 2:55 AM [facility] Bilirubin Total 0.6 0.2 - 1.2 mg/dL 08/07/2024 2:55 AM [facility] eGFR by CKD-EPI 66(L) >=90 mL/min/1.7 3 m2 08/07/2024 2:55 AM [facility] Blood BLOOD SPECIMEN / Unknown Venipuncture / Unknown 08/07/2024 1:59 AM [facility] 08/07/2024 2:19 AM [facility] us Chika Chew MD LAB - CHEMISTRY ORDERABLES Final Result [facility] [address] [place] [address] * VAS Bilateral Venous Duplex Le (08/06/2024 2:30 PM [facility]) Anatomical Region Laterality Modality Lower Extremity Ultrasound 08/06/2024 1:50 PM [facility] [facility] Narrative Procedure Note Jorge Barakat MD - 08/07/2024 [facility] [address] [place] [id number] Lower Extremity Venous Ultrasound Report Pat.Name: SARAHY RODRIGUEZ.ID: [id number] .Date: 08/06/2024 Exam Time: 1:50:00 PM Study Type:LE Venous Age: 1 1960,64Y Sex: FEMALE Sonogrphr: Binh Eldridge RVT Pat. Stat.:Inpatient Room: [facility] ICD - 9: R60.0 CPT - 4: 70358 Reason for Study: Bilateral leg edema History / Clinical: CKD, Liver cirrhosis Procedures: Lower Extremity Venous - Bilateral Race: 1 Visit ID: [id number] ++++++++++++++++++++++++++++++++++++ SUMMARY: ++++++++++++++++++++++++++++++++++++ There is no evidence [...] METABOLIC PANEL (CALCIUM TOTAL) (08/06/2024 6:07 AM [facility]) Only the most recent of2 resultswithin the time period is included. Pathologist [facility] Glucose 87 70 - 99 mg/dL 08/06/2024 8:46 AM [facility] Sodium 137 136 - 145 mmol/L 08/06/2024 8:46 AM [facility] Potassium 3.0(L) 3.5 - 5.1 mmol/L 08/06/2024 8:46 AM [facility] Chloride 103 98 - 107 mmol/L 08/06/2024 8:46 AM [facility] CO2 27 22 - 29 mmol/L 08/06/2024 8:46 AM [facility] Calcium 6.7(L) 8.4 - 10.4 mg/dL 08/06/2024 8:46 AM [facility] Anion Gap 7 6 - 16 mmol/L 08/06/2024 8:46 AM [facility] BUN 7 7 - 26 mg/dL 08/06/2024 8:46 AM [facility] Creatinine 0.81 0.57 - 1.11 mg/dL 08/06/2024 8:46 AM [facility] eGFR by CKD-EPI 81(L) >=90 mL/min/1.7 3 m2 08/06/2024 8:46 AM [facility] Blood BLOOD SPECIMEN / Unknown Venipuncture / Unknown 08/06/2024 6:07 AM [facility] 08/06/2024 6:11 AM [facility] Chika Chew MD LAB - CHEMISTRY ORDERABLES Final Result Performing Organization Address [facility] de Phone Number [facility] [address] [place] [phone] * PHOSPHORUS BLOOD (08/06/2024 6:07 AM [facility]) Only the most recent of3 resultswithin the time period is included. Phosphorus 3.7 2.5 - 4.5 mg/dL 08/06/2024 6:27 AM [facility] Blood BLOOD SPECIMEN / Unknown Venipuncture / Unknown 08/06/2024 6:07 AM [facility] 08/06/2024 6:11 AM [facility] Miguel Angel Mccain MD LAB - CHEMISTRY ORDERABLES Final Result Performing Organization Address [facility] de Phone Number [facility] [address] [place] [phone] * MAGNESIUM BLOOD (08/06/2024 6:07 AM [facility]) Only the most recent of8 resultswithin the time period is included. Magnesium 1.7 1.6 - 2.6 mg/dL 08/06/2024 8:43 AM [facility] Blood BLOOD SPECIMEN / Unknown Venipuncture / Unknown 08/06/2024 6:07 AM [facility] 08/06/2024 6:11 AM [facility] Chika Chew MD LAB - CHEMISTRY ORDERABLES Final Result Performing Organization Address [facility] de Phone Number [facility] [address] [place] [phone] * MRI Lumbar Spine Wo Contrast (08/05/2024 9:48 AM [facility]) Anatomical Region Laterality Modality Spine Magnetic Resonan ce 08/05/2024 9:51 AM [facility] Impressions 08/05/2024 11:53 AM [facility] IMPRESSION: Multilevel degenerative disc and joint disease. Mild foraminal narrowing at L3-L4 and L4-L5 levels. No canal narrowing seen. Minimal superior endplate compression at T12, associated with mild marrow edema, less than 25% loss of vertical height. Edited by Tressa Phillips on 08/05/2024 10:17 AM > Interpreting Provider: Stefani Zepeda MD on 08/05/2024 11:53 AM Narrative 08/05/2024 11:53 AM [facility] PROCEDURE: MRI LUMBAR SPINE WO CONTRAST DATE/TIME [...] Stefani Zepeda MD on 08/05/2024 11:[address] [facility] Kalyn BERNSTEIN MR ORDERABLES Final Result * (ABNORMAL) CBC W AUTO DIFFERENTIAL (08/05/2024 6:53 AM [facility]) Only the most recent of6 resultswithin the time period is included. WBC 6.8 4.0 - 10.7 x10E9/L 08/05/2024 7:01 AM [facility] RBC Count 2.80(L) 3.90 - 5.20 x10E12/L 08/05/2024 7:01 AM [facility] Hemoglobin 8.6(L) 11.9 - 15.8 g/dL 08/05/2024 7:01 AM [facility] Hematocrit 26.3(L) 34.8 - 46.1 % 08/05/2024 7:01 AM [facility] MCV 93.9 80.0 - 98.0 fL 08/05/2024 7:01 AM [facility] MCH 30.7 26.7 - 33.6 pg 08/05/2024 7:01 AM [facility] MCHC 32.7 31.7 - 36.3 g/dL 08/05/2024 7:01 AM [facility] RDW-CV 17.6(H) 11.3 - 14.8 % 08/05/2024 7:01 AM [facility] Platelet Count 111(L) 150 - 420 x10E9/L 08/05/2024 7:01 AM [facility] MPV 10.1 7.8 - 11.4 fL 08/05/2024 7:01 AM [facility] Neutrophil % 70.0 41.0 - 74.0 % 08/05/2024 7:01 AM [facility] Lymphocyte % 13.8(L) 17.0 - 47.0 % 08/05/2024 7:01 AM [facility] [id number]|2024-10-16 12:00:00|2024-10-16 12:00:00|XMS_ITS|BKG DAEMON|External Medical Summaries|[id number]|" Clinical Summary Created on: October 16, 2024 Drea Crow : 11/12/2008 Sex: Female Author Organization [facility] Health Address [address] [place] [address] [place] [address] Care Team Providers Care Auto Body Mechanic Name Role Phone Jackelyn Obrien MD Primary Care Provider [phone] Source Comments [facility] [employer],non-owned Affiliates and Associated Physician Practices is amultiple site organization consisting of ambulatory clinics and hospital sitesin [place], [place], [place] and [place]. This disclosure is being madepursuant to the Care Everywhere program and may not contain all information available regarding this patient. Last updated 18.[facility] Allergies No known active allergies Medications * Be aware that medications may not be up to date on this document. Alwaysverify current medications with the patient. ibuprofen (ADVIL; MOTRIN) 100 MG/5ML SUSP suspension Take 15 mL by mouth every 6 hours as needed for Pain. 150 mL 0 08/25/2014 Active Active Problems Problem Noted Date Diagnosed Date Radius and ulna distal fracture 04/12/2016 Social History Tobacco Use Types Packs/Day Years Used Date Smoking Tobacco: Passive Smo ke Exposure - Never Smoker Comments No Sex and Gender Information Value Date Recorded Sex Assigned at Not on file Legal Sex Female 5:41 PM CDT Gender Identity Not on file Sexual Orientation Not on file Last Filed Vital Signs Vital Sign Reading Time Taken Comments Blood Pressure 119/62 08/25/2014 7:15 PM CDT Pulse 90 08/25/2014 7:15 PM CDT Temperature 37.4 C (99.3 F) 08/25/2014 7:15 PM CDT Respiratory Rate 20 08/25/2014 7:15 PM CDT Oxygen Saturation 98% 08/25/2014 7:15 PM CDT Inhaled Oxygen Concentration - - Weight 38.7 kg (85 lb 5.1 oz) 06/09/2016 2:35 PM [facility] Height 130.5 cm (4' 3.38 ) 06/09/2016 2:35 PM CS T Body Mass Index 22.72 06/09/2016 2:35 PM [facility] Body Mass Index Percentile 96.42% 06/09/2016 2:3 5 PM [facility] Growth Chart: CDC (Girls, 2- 20 Years) Plan of Treatment Health Maintenance Due Date Last Done Comments HEPATITIS B VACCINE (1 of 3 - 3-dose series) 11/12/2007 IPV VACCINE (1 of 3 - 4-dose series) 01/12/2008 HEPATITIS A VACCINE (1 of 2 - 2-dose series) 11/11/2008 MMR VACCINE (1 of 2 - Standa rd series) 11/11/2008 WELL CHILD CHECK 11/11/2010 DTAP/TDAP/TD VACCINES (1 - Tdap) 11/11/2014 VARICELLA VACCINE (1 of 2 - 13+ 2-dose series) 11/11/2020 HIV SCREENING 11/11/2022 HPV VACCINE (1 - 3-dose series) 11/11/2022 CHLAMYDIA/GONORRHEA SCREENING 11/12/2023 MENINGOCOCCAL (Group B) VACC INE SHARED DECISION-MAKING (1 of 2 - Standard) 11/12/2023 MENINGOCOCCAL GROUPS A/C/Y/W VACCINE (1 - 2-dose series) 11/12/2023 COVID-19 VACCINE (1 - 2023-2 5 season) 2024 DEPRESSION SCREENING 06/05/2024 INFLUENZA VACCINE (Season Ended) 2025 ZOSTER VACCINE (1 of 2) 11/11/2057 HIB VACCINE Aged Out No longer eligi ble based on patient's age to complete this topic PNEUMOCOCCAL VACCINE Aged Out No long er eligible based on patient's age to complete this topic Insurance [facility] [place] [address] HEALTH CARE [facility] CARE Care Teams Auto Body Mechanic Relationship Specialty Start Date End Date Jackelyn Obrien MD [address] [facility] [address] [place] [address] PCP - General Pediatrics 08/25/14 "
--- OUTSIDE RECORDS SUMMARY | 2024-10-16 11:54 | XMS_ITS | Encounter Summary ---
Author Organization [facility] Address [address] [place] [address] Phone Care Team Providers Care Polysilicon Preparation Worker Name Role Phone Priyank Zepeda MD Primary Care Provider [phone] Reason for Visit * Reason Onset Date Comments Medication Management 08/16/2024 Encounter Details Date Type Department Care Team (Late st Contact Info) Description 08/16/2024 Telephone [facility] [address] [place] [address] Eloisa Ruiz, PT Medication Management Social History Tobacco Use Types Packs/Day Years Used Date Smoking Tobacco: Never Assessed Comments Unknown Sex and Gender Information Value Date Recorded Sex Assigned at Not on file Legal Sex Female 11:40 PM CDT Gender Identity Not on file Sexual Orientation Not on file documented as of this encounter Miscellaneous Notes * Telephone Encounter - Eloisa Riuz, PT - 08/16/2024 3:33 PM CDT S - Medication discrepancies B - [facility] patient [facility] observation at [facility] for low potassium from /08/15/24. A [...] on filedocumented in this encounter Care Teams Polysilicon Preparation Worker Relationship Specialty Start Date End Date Priyank Zepeda MD [address] [place] [address] PCP - General Internal Medicine 08/08/24 documented as of this encounter
--- OUTSIDE RECORDS SUMMARY | 2024-10-16 11:54 | XMS_ITS | Encounter Summary ---
Author Organization [facility] Address [address] [place] [address] Care Team Providers Care Field Control Inspector Name Role Phone Priyank Zepeda MD Primary Care Provider [phone] Encounter Details Date Type Department Care Team (Late st Contact Info) Description 10/03/2023 Hospital Follow-up Call [facility] Cardiovascular Care Unit [address] [place] [address] Chelsea Bishop RN Social History Tobacco Use Types Packs/Day Years Used Date Smoking Tobacco: Never [facility] Utilities Answer Date Recorded In the past 12 months has e electric, gas, oil, or water Training Advisor threatened to shut off services in your [...] any time in the past 12 m [facility], were you homeless or living in a half-way (including now)? No 09/28/2023 Comments Unknown Sex [...] on filedocumented in this encounter Care Teams Field Control Inspector Relationship Specialty Start Date End Date Priyank Zepeda MD [address] [place] [address] PCP - General INTERNAL MEDICINE 09/19/19 documented as of this encounter
--- OUTSIDE RECORDS SUMMARY | 2024-10-16 11:54 | XMS_ITS | Clinical Summary ---
Author Organization [facility] Address [address] [place] [address] Care Team Providers Care Dairy Machine Operator Farmworker Name Role Phone Priyank Zepeda MD Primary Care Provider [phone] Allergies Active Allergy Reactions Criticality Noted Date [...] Packs/Day Years Used Date Smoking Tobacco: Never [facility] Ramamiaities Answer Date Recorded In the past 12 months has e [employer], [employer], oil, or water [employer] threatened to shut off services in your [...] time in the past 12 m [facility], were you homeless or living in [...] 1:27 AM 10/02/2023 3:59 PM Care Teams Dairy Machine Operator Farmworker Relationship Specialty Start Date End Date Priyank Zepeda MD [address] [place] [address] PCP - General INTERNAL MEDICINE 09/19/19
--- OUTSIDE RECORDS SUMMARY | 2024-10-16 11:54 | XMS_ITS | Clinical Summary ---
Author Organization [facility] Address [address] [place] [address] Care Team Providers Care Vacuum Closing Machine Operator Name Role Phone Gayla Villar Primary Care Provider [phone] Social History Tobacco Use Types Packs/Day Years Used Date Smoking Tobacco: Never Assessed Comments Unknown Sex and Gender Information Value Date Recorded Sex Assigned at Not on file Legal Sex Female 4:22 PM NEWSPAPER WRITER Gender Identity Not on file Sexual Orientation Not on file Plan of Treatment Health Maintenance Due Date Last Done Comments CERVICAL CANCER SCREENING 1959 FIT Test 1959 FIT-DNA Test 1959 FLEXIBLE SIGMOIDOSCOPY 1959 HEPATITIS C SCREENING 1959 TDAP/TD VACCINE (1 - Tdap) 1970 DEPRESSION SCREENING 1971 HIV SCREENING 1974 COLONOSCOPY 2004 COLORECTAL CANCER SCREENING 2004 Pneumococcal Vaccine: 50+ Years (1 of 1 - PCV) 010 ZOSTER SERIES VACCINE (1 of 2) 2009 BREAST CANCER SCREENING 05/05/2014 OSTEOPOROSIS SCREENING 05/05/2014 COVID-19 VACCINE ( season) 2024 INFLUENZA VACCINE (Season Ended) 2025 Adult RSV VACCINE (1 - 1-dose 75+ series) 2034 [place] Care Teams Vacuum Closing Machine Operator Relationship Specialty Start Date End Date Gayla Villar [address] [place] [address] PCP - General 03/11/02
--- OUTSIDE RECORDS SUMMARY | 2024-10-16 11:54 | XMS_ITS | Data Portability ---
Author Organization [facility], [address] [place] [address] Neurology ([place]) Address [address] [address] Care Team Providers Care Firer Locomotive Name Role Phone KIERAN CALL Primary Care Provider [phone] Assessment Encounter Date Assessment Date Assessment LastModified by Organization Details LastModified Time 10/17/2023 10/17/2023 - Keep already scheduled appointment with GI -secure an appointment with hematology -follow up with your PCP if needed -Call this office with any questions or concerns [phone] Not available 10/17/2023 14:57:46 Plan of Treatment [...] city possi ble) ----- 53.3 Not Available [facility], [facility] - All Sites [address] [place] [address] [address], [place], [address], 06/05/2024 01:21:09 10/02/19 24 10/02/2023 PTH (para [...] anni rable . ----- 182.5 Not Available [facility] [address], [address], 06/05/2024 01:21:09 10/02/19 24 10/02/2023 phosp horus , serum or plasm a phosphorus 2 mg/dL 2.5-4. 9 low Not Available Test [facility] [address] [place], [address], 06/05/2024 01:21:08 10/02/19 24 10/02/2023 BMP, blood sodium 140 mmol/ L 136-14 5 Not Available [facility] [address], [place], [address], 06/05/2024 01:21:02 10/02/19 24 10/02/2023 BMP, blood potassium 2.9 mmol/ L 3.5-5. 1 low criti benjamin resul t(s) dial d to and read back by: vicky blanton at: 16:07 :22 10/01 by assp. ----- 2.9 Not Available [facility] [address], [place], [address], 06/05/2024 01:21:02 10/02/19 24 10/02/2023 BMP, blood chloride 110 mmol/ L 98-107 high Not Available [facility] [address], [place], [address], 06/05/2024 01:21:02 10/02/19 24 10/02/2023 BMP, blood CO2 24.9 mmol/ L 21.0-3 2.0 Not Available [facility] [address], [place], [address], 06/05/2024 01:21:02 10/02/19 24 10/02/2023 BMP, blood anion gap 5.1 mmol/ L 5.0-15 .0 Not Available [facility] [address], [place], [address], 06/05/2024 01:21:02 10/02/19 24 10/02/2023 BMP, blood glucose 116 mg/dL 74-106 high Not Available [place] [address], [place], [address], 06/05/2024 01:21:02 10/02/19 24 10/02/2023 BMP, blood BUN 11 mg/dL 7-18 Not Available [place] [address], [place], [address], 06/05/2024 01:21:02 10/02/19 24 10/02/2023 BMP, blood creatinine 0.91 mg/dL 0.55-1 .02 Not Available [facility] [address], [place], [address], 06/05/2024 01:21:02 10/02/19 24 10/02/2023 BMP, blood calcium 7.8 mg/dL 8.5-10 .1 low Not Available [facility] [address], [place], [address], 06/05/2024 01:21:02 10/02/19 24 10/02/2023 BMP, blood eGFR 70 mL/mi n/1.7 3_M2 >90 low Not Available [place] [address] [facility] [address], [place], [address], 06/05/2024 01:21:02 10/02/19 24 10/02/2023 BMP, blood calculated osmolality 290 mOsm/ kg refer ence range not estab lishe d ----- 290 Not Available [facility] [address], [place], [address], 06/05/2024 01:21:02 10/02/19 24 10/02/2023 BMP, blood [...] mL/mi n/1.7 3 m2 ----- Not Available [facility] [address], [place], [address], 06/05/2024 01:21:02 01/18/20 24 12/07/2022 imagi ng/di [...] Name and Address Organization Details Recorded Time 441346 adhesive tape environme nt,medica tion rash Not available Not available 07/03/20232013 89984 UNK React ion: Rash; Comme nt: Adhes messi Tape React ion Date: 27 Jul 2012 ; Not Available [facility] 22:47:28 279265 Cipro medicatio n Not available Not available Not available 07/03/20232013 94949 3 RxNorm Comme nt: React ion Date: 01 Jan 2013 ; Not Available [facility] 22:47:29 000519 succinylc holine chloride medicatio n Not available Not available Not available 07/03/20232015 3565 RxNorm Not Available [facility] 22:47:29 Medications Name Sig Start Date Stop Date Status Note LastModified by Organization Details LastModified Time Prescription - New active Employment Services Director: NIMESH CHRISTIANSON (Audiology) , Sergey n Form [...] /min 123 mm[Hg] 74 mm[Hg] Tina cuello [facility] 14:41:31 Social History Question Answer Notes LastModified by [email or web address] Details LastModified Time Do You Have An Advance Directive? Yes [email or web address] Information not available 10/16/2023 What Is Your Level Of Caffeine Consumption? Occasional [email or web address] Information not available 10/16/2023 What Is Your Code Status? Full Code [email or web address] Information not available 10/16/2023 How Many Times Per Week Do You Exercise? 1-2 Times Per Week [email or web address] Information not available 10/16/2023 Do You Have A Medical Power Of Personnel Generalist Manager? Yes [email or web address] Information not available 10/16/2023 What Was The Date Of Your Most Recent Tobacco Screening? 10/17/2023 [email or web address] Information not available 10/16/2023 What Is Your Relationship Status? Single [email or web address] Information not available 10/16/2023 Sex: Unknown Functional Status Question Answer Note LastModified by [email or web address] Details LastModified Time Do you use any illicit or recreational drugs? No [email or web address] Information not available 10/16/2023 What is your level of alcohol consumption? None [email or web address] Information not available 10/16/2023 Are you currently employed? No [email or web address] Information not available 10/16/2023 What is your occupation? None, ?disabled? [email or web address] Information not available 10/16/2023 What is your exercise level? Occasional [email or web address] [...] SNOMED-CT Code Diagnosis ICD10 Code Diagnosis Note [id number] [facility] ([place] [address] [place] [address] 10/17/2023 14:31:01 10/18/2023 15:51:26 Hospital inpatient stay within past 30 days 8521941448 106 Z76.89 Health Concerns Section Related Observation LastModified by Organization Detai ls LastModified Time None Recorded Concern Status LastModified by Organization Details LastModified Time None Recorded Advance Directives Directive Y: Payers Insurance Date Sequence Insurance Name Policy Number Policy Juares Covered Member ID Juares Member ID Guarantor Name 11/20/2023 1 [facility] ON OR AFTER 12/03/20 (MEDICAID REPLACEMENT - HMO) Louise Moore [id number] Louise Moore 10/02/2023 1 *SELF PAY* Sh nadeem Moore Notes Date Note Type Note Provider [...] appointment scheduled for November 01 with GI NICKEL PLATER for consultation. She is eating and drinking well. She denies n/v. YULISSA MARTINEZ, STEAM HAMMER OPERATOR-C [address] [place] [address], [id number], [facility] 10/17/2023 14:58:51 OBGyn Episode No OBEpisode recorded.
== END 2024-10-16 11:49 | disposition home or self-care (01) ==
LOC: CHSLAB 11:52
PROVIDERS: PCP Internal Medicine
DX: R39.9 Unspecified symptoms and signs involving the genitourinary system (principal)
CPT/HCPCS: 87077; 87086; 87088; 87186

== ENCOUNTER 2024-10-21 10:07 | Outpatient (CLI) | payer OTHER, SELFPAY ==
[2024-10-21 10:16] VITALS: BMI 32.3
[2024-10-21 10:30] VITALS: BP 124/62; PULSE 68; RESP 16; TEMP 36.5; O2SAT 97
[2024-10-21] MEDS: IRON SUCROSE COMPLEX 300 MG in SODIUM CHLORIDE 0.9% IV 235 ML 125 MG IVPB (10:30)
--- OUTSIDE RECORDS SUMMARY | 2024-10-21 10:43 | XMS_ITS ---
Author Organization Unknown Address [address] [place] [phone] Phone Care Team Providers Care Stitch Burnisher Name Role Phone GARFIELD Ashby Attending Unavailable [...] em Smoking History Never smoker (Never Smoked) [id number] SNOMED CT Sex Female Vital Signs Vital Sign Value Unit [place] Value [place] Unit Date/Time Recent/Initial? Code Code System Body Mass Index 30.45 kg/m2 11/13/2023 14:43 Initial 72210 -5 INC Systolic Blood Pressure 136 mm[Hg] 12/14/2023 08:17 Initial 8480- 6 LOINC Diastolic Blood Pressure 78 mm[Hg] 12/14/2023 08:17 Initial 8462- 4 INC Body Surface Area 1.95 m2 11/13/2023 14:43 Initial 3140- 1 LOINC Height 165.100 0 cm 65.00 in 11/13/2023 14:43 Initial 8302- 2 INC O2 Saturation 99 % 2023 08:17 Initial 34817 -5 INC Pulse 57.0 /min 12/14/2023 08:17 Initial 8867- 4 LOINC Respiration 20 /min 12/14/19 08:17 Initial 9279- 1 LOINC Temperature 36.2 Kait 97.1 F 12/14/19 24 08:17 Initial 8310- 5 LOINC Weight 83.01 kg 183.00 lbs 11/13/2023 14:43 Initial 63490 -7 [facility] Medications Medication Start Date End Date Route Frequency Dose Code Code System Medication Instructions Home Meds Vitamin B12 1000 MCG Sublingual Tablet 12/14/2023 Unknown SUBLINGUAL ONCE A DAY [address] 1000 MCG SUBLINGUAL ONCE A DAY Tums Extra Strength 750 MG Oral Tablet, Chewable 12/14/2023 Unknown ORAL NEEDED 750 MG 9464699 RxNorm TAKE 750 MG ORAL NEEDED Amitriptyline 10MG Oral Tablet 12/14/2023 Unknown ORAL TWICE A DAY 10 MILLIGRA MS 645118 RxNorm TAKE 10 MILLIGRAMS ORAL TWICE A DAY Calcitriol 0.5MCG Oral Capsule, Liquid Filled 12/14/2023 Unknown ORAL TWICE A DAY 2 CAPSULE 474244 RxNorm TAKE 2 CAPSULE ORAL TWICE A DAY Calcium Citrate Powder 12/14/2023 [address] R[address]TE NOT APPLICABLE 1 unit(s) RxNorm 1 EACH ROUTE NOT APPLICABLE Eliquis 5MG Oral Tablet 12/14/2023 12/14/19 24 ORAL TWICE A DAY 5 MILLIGRA MS 5371798 RxNorm TAKE 5 MILLIGRAMS ORAL TWICE A DAY FLUoxetine 20MG/5ML Oral Solution 12/14/2023 Unknown ORAL TWICE A DAY 395102 RxNorm TAKE mL ORAL TWICE A DAY Iron 325MG Oral Tablet 12/14/2023 Unknown ORAL THREE TIMES A DAY 325 MILLIGRA MS 398339 RxNorm TAKE 325 MILLIGRAMS ORAL THREE TIMES A DAY Levothyroxine 125MCG Oral Tablet 12/14/2023 Unknown ORAL ONCE A DAY 0.5 TABLET 909566 RxNorm TAKE 0.5 TABLET ORAL ONCE A DAY Loratadine 10MG Oral Tablet 12/14/2023 Unknown ORAL NEEDED 10 MILLIGRA MS 698007 RxNorm TAKE 10 MILLIGRAMS ORAL NEEDED Metoprolol Succinate 50MG Oral Tablet, Extended Release 12/14/2023 Unknown ORAL ONCE A DAY 50 MILLIGRA MS 057617 RxNorm TAKE 50 MILLIGRAMS ORAL ONCE A DAY Potassium Chloride 20MEQ Oral Tablet, Extended Release 12/14/2023 Unknown ORAL TWICE A DAY 20 MEQ 0534591 RxNorm TAKE 20 MEQ ORAL TWICE A DAY Sodium Bicarbonate 650MG Oral Tablet 12/14/2023 Unknown ORAL THREE TIMES A DAY 650 MILLIGRA MS 165832 RxNorm TAKE 650 MILLIGRAMS ORAL THREE TIMES A DAY Tab-A-Ezio 35BJ-23MP-004U U-6MCG Oral Tablet 12/14/2023 Unknown ORAL ONCE A DAY 1 unit(s) 974116 RxNorm TAKE 1 EACH ORAL ONCE A [...] Code Syste m Vocal cord nodule completed 36802600 SNOMEDC T Fracture of tibia completed 51863959 SNOMEDC T Volvulus completed 4293109 SNOMEDCT APPENDECTOMY completed 78460773 SNOMEDCT Removal of kidney stone completed 2192894 S NOMEDCT Anesthesia for lower intesti nal endoscopic procedures, endoscope introduce 12/14/2023 completed 08460 CPT Gastric bypass completed 947029129 SNOMEDCT History of parathyroidectomy completed 1775720 98719877 SNOMEDCT Colonoscopy, flexible; with biopsy, single or multiple 12/14/2023 completed 10330 CPT Problems Problem Start Date Resolved Date Status Code Code System CHRONIC KIDNEY DISEASE, STAG E 3A active 223239337 SNOMED-CT Allergies and Adverse Reactions Allergy Substance Reaction Severity Start Date Concern Status Code Code System ADHESIVE Itching (SNOMED-CT: 610438935) Active SUCCINYLCHOLINE CHLORIDE HARD TO WAKE UP (SNOMED-CT: null) Active 3565 RxNorm CIPRO REDNESS IV ONLY (SNOMED-CT: null) Mild Active 172573 RxNorm No Known Drug Allergies Active 452526731 SNOMED-CT Plan of Treatment Colonoscopy 12/14/2023 Encounters Encounter Diagnosis Start Date Code Code Sys tem Noninfective gastroenteritis and colitis, unspecified 12/14/2023 SNOMED-CT Personal Care Team Section Performer Name Performer Role Active Date Inactive KIERAN Gilbert PCP - Primary care physician 2024-04-16
--- OUTSIDE RECORDS SUMMARY | 2024-10-21 10:43 | XMS_ITS | Clinical Summary ---
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 [place] [address] PCP - General 03/11/02
--- OUTSIDE RECORDS SUMMARY | 2024-10-21 10:43 | XMS_ITS | Encounter Summary ---
Author Organization [facility] Address [address] [facility] [place] [address] Phone Care Team Providers Care Dry Plasterer Helper Name Role Phone Priyank Zepeda MD Primary Care Provider [phone] Reason for Visit * Reason Onset Date Comments Medication Management 08/16/2024 Encounter Details Date Type Department Care Team (Late st Contact Info) Description [facility]/16[facility] [address] [place] [address] Eloisa Ruiz, PT Medication Management Social History [...] [facility] patient was observation at [facility] for low potassium from /08/15/24. A [...] on filedocumented in this encounter Care Teams Dry Plasterer Helper Relationship Specialty Start Date End Date Priyank Zepeda MD [address] [place] [address] PCP - General Internal Medicine 08/08/24 documented as of this encounter
--- OUTSIDE RECORDS SUMMARY | 2024-10-21 10:43 | XMS_ITS | Clinical Summary ---
Author Organization [facility] Facility Address [address] [address] Care Team Providers Care Fiber Design Engineer Name Role Phone Priyank Zepeda MD Primary Care Provider [phone] Allergies Active Allergy Reactions Criticality Noted Date [...] mouth in the morning. 5 Active pancrelipase, Mds-Ckxz-Vnnm, (CREON) 97[address] units capsule Take 1 capsule by mouth in the morning and 1 capsule at noon and 1 capsule in the evening. Take with meals. 5 Active Cholecalciferol (Vitamin D3) 1.25 MG (74247 UT) capsule Take 50,000 Units by mouth in the morning and 50,000 Units in the evening. Active Active Problems Problem Noted Date Diagnosed Date Acidosis 05/09/2019 Chronic kidney disease stage 2 05/09/2019 Essential hypertension 05/09/2019 Primary hyperparathyroidism 05/09/2019 Encounters Date Type Department Care Team Description 10/10/2024 Documentation Only [facility] Evgeny. [address] [facility] [address] [address] Kristofer Ortiz MD from Last [...] CDT Respiratory Rate 18 05/15/2018 11:00 AM CAPACITY PLANNING ENGINEER Oxygen Saturation 96% 01/23/2024 1:26 PM CDT Inhaled Oxygen Concentration - - Weight 77.6 kg (171 lb) 01/23/2024 1:26 PM CDT Height 165.1 cm (5' 5 ) 01/23/2024 1:26 PM CDT Body Mass Index 28.46 01/23/2024 1:26 PM CDT Plan of Treatment Upcoming Encounters Date Type Department Care Team (Late st Contact Info) Description 10/22/2024 10:45 AM CDT Office Visit [facility] Evgeny. [address] [facility] [address] [place] [address] Kristofer Ortiz MD [address] [facility] [address] [place] [address] Health Maintenance Due Date Last Done Comments Breast Cancer Screening 1959 Pneumococcal Vaccine: 50+ Years (1 of 2 - PCV) 1978 Colorectal Cancer Screening: Colonoscopy Discontinued 12/14/2023, 11/04/2021 Influenza Vaccine Completed 03/19/2024, , 03/06/2022, Additional history exists Hepatitis B Vaccine Aged Out No longe r eligible based on patient's age to complete this topic Insurance [facility] Advance Directives Documents on File Type Date Recorded Patient Wheat Buyer Expl anation Power of Wheat Buyer 10/25/2021 11:10 AM Othe r - POA Power of Wheat Buyer 10/25/2021 11:10 AM Othe r - POA Care Teams Fiber Design Engineer Relationship Specialty Start Date End Date Priyank Zepeda MD [address] [place] [address] PCP - General Internal Medicine 05/17/19
--- OUTSIDE RECORDS SUMMARY | 2024-10-21 10:43 | XMS_ITS | Clinical Summary ---
Author Organization [facility] [employer] Address [address] [place] [address] Care Team Providers Care Multineedle Shirrer Name Role Phone Priyank Zepeda MD Primary Care Provider [phone] Source Comments [facility],non-owned Affiliates and Associated Physician Practices is amultiple site organization consisting of ambulatory clinics and hospital sitesin [place], [place], [place] and [place]. This disclosure is being madepursuant to the Care Everywhere program and may not contain all information available regarding this patient. Last updated 18.[facility] [employer] Allergies Active Allergy Reactions Criticality Noted Date [...] once daily 42 Each 08/07/2024 1:10 PM ELECTRIC MOTOR ANALYST 5 Active ferrous sulfate 325 (65 FE) MG tablet Take 1 (one) tablet by mouth once daily after lunch 30 tablet 08/07/2024 1:10 PM ELECTRIC MOTOR ANALYST 5 Active folic acid (Folvite) 1 MG tablet Take 1 (one) tablet by mouth once daily 30 tablet 08/07/2024 1:10 PM ELECTRIC MOTOR ANALYST 5 Active pantoprazole EC (Protonix) 40 MG tablet Take 1 (one) tablet by mouth 2 times daily, before breakfast and supper 60 tablet 08/07/2024 1:10 PM ELECTRIC MOTOR ANALYST 5 Active sucralfate (Carafate) 1 GM/10ML suspension Take 10 mL by mouth 4 times daily - before meals & nightly 420 mL 08/07/2024 1:10 PM ELECTRIC MOTOR ANALYST 5 Active Cholecalciferol (vitamin D3) 1.25 MG (48525 UT) capsule Take 1 (one) capsule by mouth every 7 days 5 capsule 5 Active furosemide (Lasix) 40 MG tablet Take 1 (one) tablet by mouth once daily 30 tablet 08/07/2024 1:10 PM ELECTRIC MOTOR ANALYST 5 Active Calcium Carbonate Antacid (calcium carbonate, 500 mg elemental Ca/5 mL,) 1250 MG/5ML suspension Take 10 mL by mouth 3 times daily with meals 473 mL 1 5 Active pancrelipase (Creon 24,000) 62687-91367 units capsule Take 1 (one) capsule by [...] Department Care Team Description 07/29/2024 8:42 AM ELECTRIC MOTOR ANALYST Anesthesia Event [facility] [address] [place] [address] Bozena Osullivan, Mary Ryan, MOTORCYCLE SUBASSEMBLY 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 Somewhat hard 07/28/2024 [facility] [place] [facility] Occup[facility] - Occupational Stress [...] time in the past 12 m [facility], were you homeless or living in a assisted (including now)? No 07/28/2024 Comments Unknown Sex and Gender Information Value Date Recorded Sex Assigned at Not on file Legal Sex Female 9:40 AM CDT Gender Identity Not on file Sexual Orientation Not on file Last Filed Vital Signs Vital Sign Reading Time Taken Comments Blood Pressure 112/78 08/07/2024 2:44 PM ELECTRIC MOTOR ANALYST Pulse 93 08/07/2024 2:44 PM ELECTRIC MOTOR ANALYST Temperature 37.5 C (99.5 F) 08/07/2024 11:33 AM ELECTRIC MOTOR ANALYST Respiratory Rate 18 08/07/2024 11:3 3 AM ELECTRIC MOTOR ANALYST Oxygen Saturation 97% 08/07/2024 2:44 PM ELECTRIC MOTOR ANALYST Inhaled Oxygen Concentration - - Weight 87.5 kg (192 lb 14.4 oz) 03/05/2 025 12:04 AM ELECTRIC MOTOR ANALYST Height 165.1 cm (5' 5 ) 07/28/2024 4:01 PM ELECTRIC MOTOR ANALYST Body Mass Index 32.1 07/28/2024 4:01 PM ELECTRIC MOTOR ANALYST Plan of Treatment Health Maintenance Due Date [...] CARDIAC RHYTHM STRIP ORDER 08/08/2024 11:03 PM ELECTRIC MOTOR ANALYST APHERESIS/TRANSFUSIO N ORDER 08/08/2024 11:03 PM ELECTRIC MOTOR ANALYST B-TYPE NATRIURETIC PEPTIDE AM Draw 08/07/2024 1:59 AM ELECTRIC MOTOR ANALYST COMPREHENSIVE METABOLIC PANEL AM Draw 08/07/2024 1:59 AM ELECTRIC MOTOR ANALYST VAS BILATERAL VENOUS DUPLEX LE PENDING DISCHARGE 08/06/2024 2:30 PM ELECTRIC MOTOR ANALYST Bilateral leg edema MAGNESIUM BLOOD Routine 08/06/2024 6:07 AM ELECTRIC MOTOR ANALYST BASIC METABOLIC PANEL (CALCIUM TOTAL) Routine 08/06/2024 6:07 AM ELECTRIC MOTOR ANALYST PHOSPHORUS BLOOD Routine 08/06/2024 6:07 AM ELECTRIC MOTOR ANALYST MRI LUMBAR SPINE WO CONTRAST Routine 08/05/2024 9:48 AM ELECTRIC MOTOR ANALYST Acute midline low back pain without sciatica PHOSPHORUS BLOOD Routine 08/05/2024 6:53 AM ELECTRIC MOTOR ANALYST COMPREHENSIVE METABOLIC PANEL AM Draw 08/05/2024 6:53 AM ELECTRIC MOTOR ANALYST MAGNESIUM BLOOD AM Draw 08/05/2024 6:53 AM ELECTRIC MOTOR ANALYST CBC W AUTO DIFFERENTIAL AM Draw 08/05/2024 6:53 AM ELECTRIC MOTOR ANALYST PROTEIN URINE TIMED QUANTITATIVE Routine 08/04/2024 1:55 PM ELECTRIC MOTOR ANALYST URIC ACID URINE TIMED Routine 08/04/2024 1:55 PM ELECTRIC MOTOR ANALYST CREATININE CLEARANCE URINE TIMED + BLOOD Routine 08/04/2024 1:55 PM ELECTRIC MOTOR ANALYST CALCIUM URINE TIMED Routine 08/04/2024 1 :55 PM ELECTRIC MOTOR ANALYST COMPREHENSIVE METABOLIC PANEL AM Draw 08/04/2024 6:55 AM ELECTRIC MOTOR ANALYST MAGNESIUM BLOOD AM Draw 08/04/2024 6:55 AM ELECTRIC MOTOR ANALYST CBC W AUTO DIFFERENTIAL AM Draw 08/04/2024 6:55 AM ELECTRIC MOTOR ANALYST URINALYSIS REFLEX TO MICROSCOPIC NO CULTURE Routine 08/03/2024 12:49 PM ELECTRIC MOTOR ANALYST COMPREHENSIVE METABOLIC PANEL AM Draw 08/03/2024 9:26 AM ELECTRIC MOTOR ANALYST MAGNESIUM BLOOD AM Draw 08/03/2024 9:26 AM ELECTRIC MOTOR ANALYST CBC W AUTO DIFFERENTIAL AM Draw 08/03/2024 9:26 AM ELECTRIC MOTOR ANALYST XR LUMBAR SPINE 2 OR 3VW Routine 08/02/2024 2:10 PM ELECTRIC MOTOR ANALYST Acute midline low back pain without sciatica PTH INTACT W/O CALCIUM Routine 08/02/2024 3:19 AM ELECTRIC MOTOR ANALYST MAGNESIUM BLOOD AM Draw 08/02/2024 3:19 AM ELECTRIC MOTOR ANALYST RENAL FUNCTION PANEL AM Draw 08/02/2024 3:19 AM ELECTRIC MOTOR ANALYST CBC W AUTO DIFFERENTIAL AM Draw 08/02/2024 3:19 AM ELECTRIC MOTOR ANALYST CALCIUM BLOOD STAT 08/01/2024 3:41 AM ELECTRIC MOTOR ANALYST MAGNESIUM BLOOD AM Draw 08/01/2024 1:20 AM ELECTRIC MOTOR ANALYST RENAL FUNCTION PANEL AM Draw 08/01/2024 1:20 AM ELECTRIC MOTOR ANALYST CBC W AUTO DIFFERENTIAL AM Draw 08/01/2024 1:20 AM ELECTRIC MOTOR ANALYST HGB HCT PANEL Timed 07/31/2024 7:39 AM ELECTRIC MOTOR ANALYST TRANSFUSE RED BLOOD CELL LEUKOREDUCED UNIT(S) Routine 07/31/2024 3:40 AM ELECTRIC MOTOR ANALYST PREPARE RBC LEUKOREDUCED UNIT Routine 07/31/2024 3:35 AM ELECTRIC MOTOR ANALYST MAGNESIUM BLOOD AM Draw 07/31/2024 2:15 AM ELECTRIC MOTOR ANALYST RENAL FUNCTION PANEL AM Draw 07/31/2024 2:15 AM ELECTRIC MOTOR ANALYST CBC W AUTO DIFFERENTIAL AM Draw 07/31/2024 2:15 AM ELECTRIC MOTOR ANALYST VITAMIN D 25-HYDROXY AM Draw 07/31/2024 2:15 AM ELECTRIC MOTOR ANALYST VITAMIN B12 AM Draw 07/31/2024 2:15 AM ELECTRIC MOTOR ANALYST FOLATE Routine 07/31/2024 2:15 AM ELECTRIC MOTOR ANALYST IRON + TRANSFERRIN PANEL Routine 07/31/2024 2:15 AM ELECTRIC MOTOR ANALYST HGB HCT PANEL Timed 07/30/2024 10:03 AM ELECTRIC MOTOR ANALYST TRANSFUSE RED BLOOD CELL LEUKOREDUCED UNIT(S) Routine 07/30/2024 5:20 AM ELECTRIC MOTOR ANALYST PREPARE RBC LEUKOREDUCED UNIT Routine 07/30/2024 5:15 AM ELECTRIC MOTOR ANALYST BLOOD TYPE VERIFICATION Routine 07/30/2024 2:06 AM ELECTRIC MOTOR ANALYST CBC W/O DIFFERENTIAL AM Draw 07/30/2024 2:06 AM ELECTRIC MOTOR ANALYST PT-INR AM Draw 07/30/2024 2:06 AM ELECTRIC MOTOR ANALYST BASIC METABOLIC PANEL (CALCIUM TOTAL) AM Draw 07/30/2024 2:06 AM ELECTRIC MOTOR ANALYST HGB HCT PANEL Timed 07/29/2024 9:08 PM ELECTRIC MOTOR ANALYST US ABDOMEN LIMITED Routine 07/29/2024 2: 29 PM ELECTRIC MOTOR ANALYST Gastrointestinal hemorrhage with melena HGB HCT PANEL Routine 07/29/2024 10:19 AM ELECTRIC MOTOR ANALYST PT-INR AM Draw 07/29/2024 10:19 AM ELECTRIC MOTOR ANALYST NV ED EGD FLEX TRANSORAL DX 07/29/2024 8:30 AM ELECTRIC MOTOR ANALYST EGD Routine 07/29/2024 6:57 AM ELECTRIC MOTOR ANALYST CBC W/O DIFFERENTIAL Routine 07/29/2024 6:42 AM ELECTRIC MOTOR ANALYST COMPREHENSIVE METABOLIC PANEL Routine 07/29/2024 6:42 AM ELECTRIC MOTOR ANALYST MAGNESIUM BLOOD Routine 07/29/2024 6:42 AM ELECTRIC MOTOR ANALYST PHOSPHORUS BLOOD Routine 07/29/2024 6:42 AM ELECTRIC MOTOR ANALYST CULTURE BLOOD Timed 07/28/2024 10:03 PM ELECTRIC MOTOR ANALYST CULTURE BLOOD Timed 07/28/2024 8:16 PM ELECTRIC MOTOR ANALYST TYPE + SCREEN PANEL Routine 07/28/2024 6 :52 PM ELECTRIC MOTOR ANALYST COMPREHENSIVE METABOLIC PANEL STAT 07/28/2024 5:25 PM ELECTRIC MOTOR ANALYST CBC W/O DIFFERENTIAL STAT 07/28/2024 5:25 PM ELECTRIC MOTOR ANALYST from Last 3 Months Results * CARDIAC RHYTHM STRIP ORDER (08/08/2024 11:03 PM ELECTRIC MOTOR ANALYST) Narrative 08/08/2024 11:03 PM ELECTRIC MOTOR ANALYST Ordered by an unspecified provider. us Scanned Document CARDIAC SERVICES ORDERABLES Fin al Result * APHERESIS/TRANSFUSION ORDER (08/08/2024 11:03 PM ELECTRIC MOTOR ANALYST) Narrative 08/08/2024 11:03 PM ELECTRIC MOTOR ANALYST Ordered by an unspecified provider. us Scanned Document NURSING - VITAL SIGNS AND ASSES SMENT Final Result * B-TYPE NATRIURETIC PEPTIDE (08/07/2024 1:59 AM ELECTRIC MOTOR ANALYST) BNP 35 <=100 pg/mL 08/07/2024 2:52 AM ELECTRIC MOTOR ANALYST [facility] Blood BLOOD SPECIMEN / Unknown Venipuncture / Unknown 08/07/2024 1:59 AM ELECTRIC MOTOR ANALYST 08/07/2024 2:19 AM ELECTRIC MOTOR ANALYST Chika Chew MD LAB - CHEMISTRY ORDERABLES Final Result [facility] [address] [place] [address] * (ABNORMAL) COMPREHENSIVE METABOLIC PANEL (08/07/2024 1:59 AM ELECTRIC MOTOR ANALYST) Only the most recent of6 resultswithin the time period is included. Glucose 97 70 - 99 mg/dL 08/07/2024 2:55 AM [facility] Sodium 136 136 - 145 mmol/L 08/07/2024 2:55 AM [facility] Potassium 3.9 3.5 - 5.1 mmol/L 08/07/2024 2:55 AM [facility] Chloride 104 98 - 107 mmol/L 08/07/2024 2:55 AM [facility] CO2 23 22 - 29 mmol/L 08/07/2024 2:55 AM [facility] Calcium 6.8(L) 8.4 - 10.4 mg/dL 08/07/2024 2:55 AM [facility] Anion Gap 9 6 - 16 mmol/L 08/07/2024 2:55 AM [facility] BUN 9 7 - 26 mg/dL 08/07/2024 2:55 AM [facility] Creatinine 0.95 0.57 - 1.11 mg/dL 08/07/2024 2:55 AM [facility] Alkaline Phosphatase 91 40 - 150 U/L 08/07/2024 2:55 AM [facility] ALT 21 0 - 55 U/L 08/07/2024 2:55 AM [facility] AST 28 5 - 34 U/L 08/07/2024 2:55 AM [facility] Protein Total 4.9(L) 6.4 - 8.3 gm/dL 08/07/2024 2:55 AM [facility] Albumin 2.1(L) 3.4 - 5.0 gm/dL 08/07/2024 2:55 AM [facility] Bilirubin Total 0.6 0.2 - 1.2 mg/dL 08/07/2024 2:55 AM ELECTRIC MOTOR ANALYST [facility] eGFR by CKD-EPI 66(L) >=90 mL/min/1.7 3 m2 08/07/2024 2:55 AM ELECTRIC MOTOR ANALYST [facility] Blood BLOOD SPECIMEN / Unknown Venipuncture / Unknown 08/07/2024 1:59 AM ELECTRIC MOTOR ANALYST 08/07/2024 2:19 AM ELECTRIC MOTOR ANALYST us Chika Chew MD LAB - CHEMISTRY ORDERABLES Final Result [facility] [address] [place] [address] * VAS Bilateral Venous Duplex Le (08/06/2024 2:30 PM ELECTRIC MOTOR ANALYST) Anatomical Region Laterality Modality Lower Extremity Ultrasound 08/06/2024 1:50 PM ELECTRIC MOTOR ANALYST Narrative Procedure Note Jorge Barakat MD - 08/07/2024 [facility] [address] [place] [address] Lower Extremity Venous Ultrasound Report Pat.Name: SARAHY RODRIGUEZ.ID: [id number] .Date: 08/06/2024 Exam Time: 1:50:00 PM Study Type:LE Venous Age: 1 1960,64Y Sex: FEMALE Sonogrphr: Binh Eldridge RVT Pat. Stat.:Inpatient Room: [facility] ICD - 9: R60.0 CPT - 4: 99773 Reason for Study: Bilateral leg edema History / Clinical: CKD, Liver cirrhosis Procedures: Lower Extremity Venous - Bilateral Race: 1 Visit ID: [id number] ++++++++++++++++++++++++++++++++++++ SUMMARY: ++++++++++++++++++++++++++++++++++++ There is no evidence [...] METABOLIC PANEL (CALCIUM TOTAL) (08/06/2024 6:07 AM ELECTRIC MOTOR ANALYST) Only the most recent of2 resultswithin the time period is included. Pathologist [facility] Glucose 87 70 - 99 mg/dL 08/06/2024 8:46 AM [facility] Sodium 137 136 - 145 mmol/L 08/06/2024 8:46 AM [facility] Potassium 3.0(L) 3.5 - 5.1 mmol/L 08/06/2024 8:46 AM [facility] Chloride 103 98 - 107 mmol/L 08/06/2024 8:46 AM [facility] CO2 27 22 - 29 mmol/L 08/06/2024 8:46 AM [facility] Calcium 6.7(L) 8.4 - 10.4 mg/dL 08/06/2024 8:46 AM [facility] Anion Gap 7 6 - 16 mmol/L 08/06/2024 8:46 AM [facility] BUN 7 7 - 26 mg/dL 08/06/2024 8:46 AM [facility] Creatinine 0.81 0.57 - 1.11 mg/dL 08/06/2024 8:46 AM [facility] eGFR by CKD-EPI 81(L) >=90 mL/min/1.7 3 m2 08/06/2024 8:46 AM ELECTRIC MOTOR ANALYST [facility] Blood BLOOD SPECIMEN / Unknown Venipuncture / Unknown 08/06/2024 6:07 AM ELECTRIC MOTOR ANALYST 08/06/2024 6:11 AM ELECTRIC MOTOR ANALYST Chika Chew MD LAB - CHEMISTRY ORDERABLES Final Result Performing Organization Address [facility] de Phone Number [facility] [address] [place] [address] * PHOSPHORUS BLOOD (08/06/2024 6:07 AM ELECTRIC MOTOR ANALYST) Only the most recent of3 resultswithin the time period is included. Phosphorus 3.7 2.5 - 4.5 mg/dL 08/06/2024 6:27 AM ELECTRIC MOTOR ANALYST [facility] Blood BLOOD SPECIMEN / Unknown Venipuncture / Unknown 08/06/2024 6:07 AM ELECTRIC MOTOR ANALYST 08/06/2024 6:11 AM ELECTRIC MOTOR ANALYST Miguel Angel Mccain MD LAB - CHEMISTRY ORDERABLES Final Result Performing Organization Address [facility] de Phone Number [facility] [address] [place] [address] * MAGNESIUM BLOOD (08/06/2024 6:07 AM ELECTRIC MOTOR ANALYST) Only the most recent of8 resultswithin the time period is included. Magnesium 1.7 1.6 - 2.6 mg/dL 08/06/2024 8:43 AM ELECTRIC MOTOR ANALYST [facility] Blood BLOOD SPECIMEN / Unknown Venipuncture / Unknown 08/06/2024 6:07 AM ELECTRIC MOTOR ANALYST 08/06/2024 6:11 AM ELECTRIC MOTOR ANALYST Chika Chew MD LAB - CHEMISTRY ORDERABLES Final Result Performing Organization Address [facility] de Phone Number [facility] [address] [place] [address] * MRI Lumbar Spine Wo Contrast (08/05/2024 9:48 AM ELECTRIC MOTOR ANALYST) Anatomical Region Laterality Modality Spine Magnetic Resonan ce 08/05/2024 9:51 AM ELECTRIC MOTOR ANALYST Impressions 08/05/2024 11:53 AM ELECTRIC MOTOR ANALYST IMPRESSION: Multilevel degenerative disc and joint disease. Mild foraminal narrowing at L3-L4 and L4-L5 levels. No canal narrowing seen. Minimal superior endplate compression at T12, associated with mild marrow edema, less than 25% loss of vertical height. Edited by Tressa Phillips on 08/05/2024 10:17 AM > Interpreting Provider: Stefani Zepeda MD on 08/05/2024 11:53 AM Narrative 08/05/2024 11:53 AM ELECTRIC MOTOR ANALYST PROCEDURE: MRI LUMBAR SPINE WO CONTRAST [...] narrowing. No foraminal narrowing seen. Procedure Note tSefani Zepeda MD - 08/05/2024 PROCEDURE: MRI LUMBAR [...] Stefani Zepeda MD on 08/05/2024 11:53 AM [facility] Kalyn BERNSTEIN MR ORDERABLES Final Result * (ABNORMAL) CBC W AUTO DIFFERENTIAL (08/05/2024 6:53 AM ELECTRIC MOTOR ANALYST) Only the most recent of6 resultswithin the time period is included. WBC 6.8 4.0 - 10.7 x10E9/L 08/05/2024 7:01 AM ELECTRIC MOTOR ANALYST [facility] RBC Count 2.80(L) 3.90 - 5.20 x10E12/L 08/05/2024 7:01 AM ELECTRIC MOTOR ANALYST [facility] Hemoglobin 8.6(L) 11.9 - 15.8 g/dL 08/05/2024 7:01 AM [facility] Hematocrit 26.3(L) 34.8 - 46.1 % 08/05/2024 7:01 AM [facility] MCV 93.9 80.0 - 98.0 fL 08/05/2024 7:01 AM ELECTRIC MOTOR ANALYST [facility] MCH 30.7 26.7 - 33.6 pg 08/05/2024 7:01 AM ELECTRIC MOTOR ANALYST [facility] MCHC 32.7 31.7 - 36.3 g/dL 08/05/2024 7:01 AM [facility] RDW-CV 17.6(H) 11.3 - 14.8 % 08/05/2024 7:01 AM [facility] Platelet Count 111(L) 150 - 420 x10E9/L 08/05/2024 7:01 AM [facility] MPV 10.1 7.8 - 11.4 fL 08/05/2024 7:01 AM [facility] Neutrophil % 70.0 41.0 - 74.0 % 08/05/2024 7:01 AM [facility] Lymphocyte % 13.8(L) 17.0 - 47.0 % 08/05/2024 7:01 AM [facility] [id number]|2024-10-21 10:59:00|2024-10-21 10:59:00|XMS_ITS|CARLOS MANUEL SAUCEDO|External Medical Summaries|[id number]|" Patient Summary 2.1.2 Created on: October 21, 2024 CHARLETTE CHAIREZ : 07/14/1956 Sex: Female Author Organization Unknown Address [address] [place], [place] [id number] Phone Care Team Providers Care Multineedle Shirrer Name Role Phone CRISTA Frank Attending Unavailable Immunization Immunization Date Status Additional Notes Code Code System DT (pediatric) 09/21/2004 Completed 28 CVX Pneumococcal conjugate PCV 13 09/28/2020 Completed 133 CVX Influenza, split virus, quadrivalent, preservative 04/12/2021 Completed 158 C VX Influenza, split virus, quadrivalent, preservative 03/07/2022 Completed 158 C VX Influenza, split virus, quadrivalent, preservative 03/20/2023 Completed 158 C VX zoster recombinant 01/10/2019 Completed 187 CVX zoster recombinant 05/14/2019 Completed 187 CVX Results DIG 3D COREEN SCREENING BILATER AL - Completed: 02/19/2024 13:33 LOINC: See Scanned Image Attachment for Report Dictated By: Trans Initials: XX Trans Date: 02/22/24 12:37 <<REPDIST>> Social History Type Status Start Date End Date Code Code Syst em Smoking History Never smoker (Never Smoked) 884618942 SNOMED CT Sex Female Assessment You had the following problems:UNSPECIFIED ABNORMALITIES OF BREATHING Hospital Discharge Instructions Should you have any questions prior to discharge, please contact a member of your healthcare team. If you have left the hospital and have any questions, please contact your primary care physician. Reason For Referral No Data Found Problems Problem Start Date Resolved Date Status Code Code System UNSPECIFIED ABNORMALITIES OF BREATHING active 441458216 SNOMED-CT Allergies and Adverse Reactions Allergy Substance Reaction Severity Start Date Concern Status Code Code System ERYTHROMYCIN Rash (SNOMED-CT: 036765212) Active 4053 RxNorm METRONIDAZOLE Active 6922 RxNorm AMOXAPINE Active 722 RxNorm GEMFIBROZIL Active 4719 RxNorm PRAVASTATIN SODIUM Fever (SNOMED-CT: 484087998) Active 733316 RxNorm EPINEPHRINE HCL-SODIUM CHLORIDE HEART PALPITATIONS (SNOMED-CT: null) Active 3992 RxNorm Plan of Treatment CT Abdomen/Pelvis W Contrast (70808) CT Chest/Lung W Contrast (05380) 2022 CT Abdomen/Pelvis W Contrast (10700) CT Chest/Lung W Contrast (61045) 2022 Bone Density Dexa 02/23/2024 Digital Coreen Screen Bilateral (23842) Encounters Encounter Diagnosis Start Date Code Code Sys tem Screening mammography 02/19/2024 83595308 SNOMED -CT Personal Care Team Section Performer Name Performer Role Active Date Inactive Da te Imaging Narrative Notes [facility] 02/22/2024 12:38 [facility] [address] [place], [place] [address] RADIOLOGY REPORT Patient Number: [id number] Patient Name: CONTRERAS CAIN Type: O/P MR Number: [id number] : 07/14/1956 Age: 67 Sex: F Room #: Admit Date: 02/19/24 Discharge Date 02/19/24 Ordering Physician: CRISTA Frank Family Physician: CRISTA Bates Physician: X-Ray Number : [id number] DIG 3D COREEN SCREENING BILATERA [id number] COMPLETE:02/19/24 13:33 [id number] (REASONS-DIG 3D COREEN SCREENING BILATERAL: screening See Scanned Image Attachment for Report Dictated By: Trans Initials: XX Trans Date: 02/22/24 12:37 <<REPDIST>> "
--- OUTSIDE RECORDS SUMMARY | 2024-10-21 10:43 | XMS_ITS | Encounter Summary ---
Author Organization [facility] Address [address] [place] [address] Phone Care Team Providers Care Stone Grader Name Role Phone Priyank Zepeda MD Primary Care Provider [phone] Encounter Details Date Type Department Care Team (Late Contact Info) Description 12/06/2019 Orders Only [facility]. [address] [place] [phone] Kristofer Ortiz MD [address] [place] [address] Chronic kidney disease stage 3 [...] Description 10/22/2024 10:45 AM CDT Office Visit [facility]. [address] [place] [phone] Kristofer Ortiz MD [address] [place] [address] [address] documented as of this encounter Visit Diagnoses Diagnosis Chronic kidney disease stage 3 (HCC) documented in this encounter Care Teams Stone Grader Relationship Specialty Start Date End Date Priyank Zepeda MD [address] [place] [address] PCP - General Internal Medicine 05/17/19 documented as of this encounter
--- OUTSIDE RECORDS SUMMARY | 2024-10-21 10:43 | XMS_ITS | Encounter Summary ---
Author Organization [facility] Address [address] [place] [address] Phone Care Team Providers Care Supervisor Knitting Name Role Phone Priyank Zepeda MD Primary Care Provider [phone] Reason for Visit * Reason Onset Date Comments Medication Management 08/13/2024 Encounter Details Date Type Department Care Team (Late st Contact Info) Description 08/13/2024 Telephone [facility] [address] [place] [address] Eloisa Ruiz, PT Medication Management Social History [...] on filedocumented in this encounter Care Teams Supervisor Knitting Relationship Specialty Start Date End Date Priyank Zepeda MD [address] [place] [address] PCP - General Internal Medicine 08/08/24 documented as of this encounter
--- OUTSIDE RECORDS SUMMARY | 2024-10-21 10:43 | XMS_ITS | Encounter Summary ---
Author Organization [facility] Address [address] [place] [address] Phone Care Team Providers Care Activated Sludge Attendant Name Role Phone Priyank Zepeda MD Primary Care Provider [phone] Encounter Details Date Type Department Care Team (Late Contact Info) Description 01/03/2020 Orders Only [facility]. [address] [place] [id number] Kristofer Ortiz MD [address] [place] [address] Chronic kidney disease stage 3 [...] Description 10/22/2024 10:45 AM CDT Office Visit [facility]. [address] [place] [id number] Kristofer Ortiz MD [address] [place] [address] [id number] documented as of this encounter Visit Diagnoses Diagnosis Chronic kidney disease stage 3 (HCC) documented in this encounter Care Teams Activated Sludge Attendant Relationship Specialty Start Date End Date Priyank Zepeda MD [address] [place] [address] PCP - General Internal Medicine 05/17/19 documented as of this encounter
--- OUTSIDE RECORDS SUMMARY | 2024-10-21 10:43 | XMS_ITS | Clinical Summary ---
Author Organization [facility] Address [address] [place] [address] Care Team Providers Care Talent Acquisition Assistant Name Role Phone Priyank Zepeda MD Primary Care Provider [phone] Allergies Active Allergy Reactions Criticality Noted Date [...] Packs/Day Years Used Date Smoking Tobacco: Never [facility] [employer] Answer Date Recorded In the past 12 months has e [employer], [employer], oil, or water [employer] threatened to shut off services in your [...] any time in the past 12 [facility], were you homeless or living in a jail (including now)? No 11/17/2023 Comments Unknown Sex [...] FINDING(S) Referred By: COLTON PORRAS Interpreted By: Vicike Funez MD, 11/19/2020 10:05 AM Narrative 11/19/2020 [...] 1:27 AM 10/02/2023 3:59 PM Care Teams Talent Acquisition Assistant Relationship Specialty Start Date End Date Priyank Zepeda MD [address] [place] [address] PCP - General INTERNAL MEDICINE 09/19/19
--- OUTSIDE RECORDS SUMMARY | 2024-10-21 10:43 | XMS_ITS | Data Portability ---
Author Organization [facility], [address] [place] [address] Neurology ([place]) Address [address] [address] Care Team Providers Care Editor & Co Founder Name Role Phone KIERAN CALL Primary Care Provider Assessment Encounter Date Assessment Date Assessment LastModified by Organization Details LastModified Time 10/17/2023 10/17/2023 - Keep already scheduled appointment with GI -secure an appointment with hematology -follow up with your PCP if needed -Call this office with any questions or concerns [email or web address] Not available 10/17/2023 14:57:46 Plan of Treatment [...] city possi ble) ----- 53.3 Not Available [facility] - All Sites [address] [place] [address] [address], [place], [address], 06/05/2024 01:21:09 10/02/19 24 10/02/2023 PTH (para [...] anni rable . ----- 182.5 Not Available [facility] [address], [address], 06/05/2024 01:21:09 10/02/19 24 10/02/2023 phosp horus , serum or plasm a phosphorus 2 mg/dL 2.5-4. 9 low Not Available Test [facility] [address] [place], [address], 06/05/2024 01:21:08 10/02/19 24 10/02/2023 BMP, blood sodium 140 mmol/ L 136-14 5 Not Available [facility] [address], [place], [address], 06/05/2024 01:21:02 10/02/19 24 10/02/2023 BMP, blood potassium 2.9 mmol/ L 3.5-5. 1 low criti benjamin resul t(s) dial d to and read back by: vicky blanton at: 16:07 :22 10/01 by assp. ----- 2.9 Not Available [facility] [address], [place], [address], 06/05/2024 01:21:02 10/02/19 24 10/02/2023 BMP, blood chloride 110 mmol/ L 98-107 high Not Available [facility] [address], [place], [address], 06/05/2024 01:21:02 10/02/19 24 10/02/2023 BMP, blood CO2 24.9 mmol/ L 21.0-3 2.0 Not Available [facility] [address], [place], [address], 06/05/2024 01:21:02 10/02/19 24 10/02/2023 BMP, blood anion gap 5.1 mmol/ L 5.0-15 .0 Not Available [facility] [address] [facility] [address], [place], [address], 06/05/2024 01:21:02 10/02/19 24 10/02/2023 BMP, blood glucose 116 mg/dL 74-106 high Not Available [place] [address], [place], [address], 06/05/2024 01:21:02 10/02/19 24 10/02/2023 BMP, blood BUN 11 mg/dL 7-18 Not Available [place] [address], [place], [address], 06/05/2024 01:21:02 10/02/19 24 10/02/2023 BMP, blood creatinine 0.91 mg/dL 0.55-1 .02 Not Available [facility] [address], [place], [address], 06/05/2024 01:21:02 10/02/19 24 10/02/2023 BMP, blood calcium 7.8 mg/dL 8.5-10 .1 low Not Available [facility] [address] [facility] [address], [place], [address], 06/05/2024 01:21:02 10/02/19 24 10/02/2023 BMP, blood eGFR 70 mL/mi n/1.7 3_M2 >90 low Not Available [place] [address] [facility] [address], [place], [address], 06/05/2024 01:21:02 10/02/19 24 10/02/2023 BMP, blood calculated osmolality 290 mOsm/ kg refer ence range not estab lishe d ----- 290 Not Available [facility] [address], [place], [address], 06/05/2024 01:21:02 10/02/19 24 10/02/2023 BMP, blood [...] mL/mi n/1.7 3 m2 ----- Not Available [facility] [address], [place], [address], 06/05/2024 01:21:02 01/18/20 24 12/07/2022 imagi ng/di [...] Name and Address Organization Details Recorded Time 754619 adhesive tape environme nt,medica tion rash Not available Not available 07/03/20232013 91664 UNK React ion: Rash; Comme nt: Adhes messi Tape React ion Date: 27 Jul 2012 ; Not Available [facility] 22:47:28 623381 Cipro medicatio n Not available Not available Not available 07/03/20232013 46388 3 RxNorm Comme nt: React ion Date: 01 Jan 2013 ; Not Available [facility] 22:47:29 701008 succinylc holine chloride medicatio n Not available Not available Not available 07/03/20232015 3565 RxNorm Not Available [facility] 22:47:29 Medications Name Sig Start Date Stop Date Status Note LastModified by Organization Details LastModified Time Prescription - New active Icicle Machine Operator: NIMESH CHRISTIANSON (Audiology) , Sergey n Form [...] /min 123 mm[Hg] 74 mm[Hg] Tina cuello [facility] 14:41:31 Social History Question Answer Notes LastModified by [employer] Details LastModified Time Do You Have An [...] Do You Have A Medical Power Of Fresh Work Wrapper Layer? Yes [email or web address] Information not available 10/16/2023 What Was The Date Of Your Most Recent Tobacco Screening? 10/17/2023 [email or web address] Information not available 10/16/2023 What Is Your Relationship Status? Single [email or web address] Information not available 10/16/2023 Sex: Unknown Functional Status Question Answer Note LastModified by [employer] Details LastModified Time Do you use any [...] SNOMED-CT Code Diagnosis ICD10 Code Diagnosis Note [id number] [facility] ([place]) [address] [place] [address] 10/17/2023 14:31:01 10/18/2023 15:51:26 Hospital inpatient stay within past 30 days [id number] 106 Z76.89 Health Concerns Section Related Observation LastModified by Organization Detai ls LastModified Time None Recorded Concern Status LastModified by Organization Details LastModified Time None Recorded Advance Directives Directive Y: Payers Insurance Date Sequence Insurance Name Policy Number Policy Juares Covered Member ID Juares Member ID Guarantor Name 11/20/2023 1 [facility] ON OR AFTER 12/03/20 (MEDICAID REPLACEMENT - HMO) Louise Moore [id number] Louise Moore 10/02/2023 1 *SELF PAY* Sh [...] appointment scheduled for November 01 with GI FASHION MODEL for consultation. She is eating and drinking well. She denies n/v. YULISSA MARTINEZ, PROGRAM COUNSELOR-C [address] [place] [address], [id number], [facility] 10/17/2023 14:58:51 OBGyn Episode No OBEpisode recorded.
--- OUTSIDE RECORDS SUMMARY | 2024-10-21 10:43 | XMS_ITS | Encounter Summary ---
Author Organization [facility] Address [address] [place] [address] Care Team Providers Care Roving Or Yarn Color Checker Name Role Phone Priyank Zepeda MD Primary Care Provider [phone] Encounter Details Date Type Department Care Team (Late st Contact Info) Description 10/03/2023 Hospital Follow-up Call [facility] [address] [place] [address] Chelsea Bishop RN Social History Tobacco Use Types Packs/Day Years Used Date Smoking Tobacco: Never [facility] Utilities Answer Date Recorded In the past 12 months has e electric, gas, oil, or water [employer] threatened to shut off services in your [...] No 09/28/2023 Housing Stability Vital Sign Answer Bobyb e Recorded In the last 12 months, was t here a time when you were not able to pay the mortgage or rent on time? No 09/28/2023 In the past 12 months, how m any times have you moved where you were living? 1 09/28/2023 At any time in the past [address] [facility], were you homeless or living in a correction (including now)? No 09/28/2023 Comments Unknown Sex [...] on filedocumented in this encounter Care Teams Roving Or Yarn Color Checker Relationship Specialty Start Date End Date Priyank Zepeda MD [address] [place] [address] PCP - General INTERNAL MEDICINE 09/19/19 documented as of this encounter
--- OUTSIDE RECORDS SUMMARY | 2024-10-21 10:43 | XMS_ITS | Encounter Summary ---
Author Organization [facility] Address [address] [place] [address] Phone Care Team Providers Care Will Call Clerk Name Role Phone Priyank Zepeda MD Primary Care Provider [phone] Encounter Details Date Type Department Care Team (Late st Contact Info) Description 09/04/2024 Lab [facility] [address] [place] [address] Priyank Zepeda MD [address] [place] [address] Secondary hyperparathyroidism of renal origin [...] - 12.00 10(3)/mcL 09/04/2024 6:44 PM CDT [facility] RBC 3.31(L) 3.80 - 5.30 10(6)/mcL 09/04/2024 6:44 PM CDT [facility] HEMOGLOBIN (HGB) 10.2(L) 12.0 - 15.8 g/dL 09/04/2024 6:44 PM CDT [facility] HEMATOCRIT (HCT) 32.3(L) 36.0 - 47.0 % 09/04/2024 6:44 PM CDT [facility] MCV 97.6(H) 82.0 - 96.0 fL 09/04/2024 6:44 PM CDT [facility] MCH 30.8 26.0 - 34.0 pg 09/04/2024 6:44 PM CDT [facility] MCHC 31.6 31.0 - 36.0 g/dL 09/04/2024 6:44 PM CDT [facility] PLATELET COUNT 240 140 - 440 10(3)/mcL 09/04/2024 6:44 PM CDT [facility] RDW 18.8(H) 11.8 - 15.5 % 09/04/2024 6:44 PM CDT [facility] MPV 9.8 9.7 - 12.4 fL 09/04/2024 6:44 PM CDT [facility] NEUTROPHILS 75.4(H) 47.0 - 73.0 % 09/04/2024 6:44 PM CDT [facility] LYMPHOCYTES 11.9(L) 18.0 - 42.0 % 09/04/2024 6:44 PM CDT [facility] MONOCYTES 9.3 4.0 - 12.0 % 09/04/2024 6:44 PM CDT [facility] EOSINOPHILS 2.8 0.0 - 5.0 % 09/04/2024 6:44 PM CDT [facility] BASOPHILS 0.6 0.0 - 1.0 % 09/04/2024 6:44 PM CDT [facility] ABSOLUTE NEUTROPHILS 3.48 1.60 - 7.70 10(3)/mcL 09/04/2024 6:44 PM CDT [facility] ABSOLUTE LYMPHOCYTES 0.55(L) 1.30 - 3.20 10(3)/mcL 09/04/2024 6:44 PM CDT [facility] ABSOLUTE MONOCYTES 0.43 0.20 - 1.00 10(3)/mcL 09/04/2024 6:44 PM CDT [facility] ABSOLUTE EOSINOPHIL 0.13 0.00 - 0.40 10(3)/mcL 09/04/2024 6:44 PM CDT [facility] ABSOLUTE BASOPHILS 0.03 0.00 - 0.10 10(3)/mcL 09/04/2024 6:44 PM CDT [facility] NRBC PER 100 WBC 0 09/05/19 6:44 PM CDT [facility] RESULTS ARE CONSISTENT WITH PERIPHERAL SMEAR REVIEW Yes 09/04/2024 6:44 PM CDT [facility] RBC MORPHOLOGY CONSISTENT WITH INDICES Yes 09/04/2024 6:44 PM CDT [facility] Blood No Phlebotomy Charged / Unknown 09/04/2024 4:55 PM CDT 09/04/2024 6:06 PM CDT us Priyank Zepeda MD HEMATOLOGY ORDERABLES Final R esult [facility] [address] [place] [address] * (ABNORMAL) PREALBUMIN (PAB) (09/04/2024 4:55 PM CDT) Pathologist [facility] PRE ALBUMIN 13(L) 14 - 37 mg/dL 09/05/2024 6:00 PM CDT [facility] Blood No Phlebotomy Charged / Unknown 09/04/2024 4:55 PM CDT 09/04/2024 6:06 PM CDT us Priyank Zepeda MD CHEMISTRY ORDERABLES Final Re sult [facility] [address] [place] [address], * VITAMIN D, 25 HYDROXY TOTAL (09/04/2024 4:55 PM CDT) VITAMIN D, 25 HYDROX 19.0 ng/mL 09/04/2024 6:55 PM CDT [facility] Blood No Phlebotomy Charged / Unknown 09/04/2024 4:55 PM CDT 09/04/2024 6:06 PM CDT Narrative [facility] - 09/04/2024 6:55 PM CDT Published reference ranges for Vitamin D vary depending on time and place and method of testing, and on patient's age, sex, ethnicity and levels of other measured analytes such as parathormone, calcium and phosphorus. The result should be evaluated in conjunction with clinical findings and suspicions. [place] [employer] Clinical Practice Guidelines: Status Vitamin D levels (ng/mL) Deficient <=20 At risk of inadequacy 21-29 Sufficient 30-100 Centers of Disease Control and Prevention Guidelines: Status Vitamin D levels (ng/mL) Deficient <13 At risk of inadequacy 13-19 Sufficient 20-50 Possibly harmful >50 References: [place] [employer], 2010 Dietary reference intakes for calcium and vitamin D. [place]: The National Academies Press. Yo M, Blayne N, Sara LEES, et al., Evaluation, treatment, and prevention of Vitamin D deficiency: an Endocrinology Clinical Practice Guideline. JCEM 2011 96: 7 6633-2901. Kiet A, Dario C, Yemi D, et al., Vitamin D Status: [place], , DCHS data brief, no. 59, [place]: National Center for Health Statistics. 2011. us Priyank Zepeda MD CHEMISTRY ORDERABLES Final Re sult [facility] [address] [place] [address] * (ABNORMAL) THYROID STIMULATING HORMONE (TSH) (09/04/2024 4:55 PM CDT) TSH 9.593(H) 0.300 - 5.000 mIU/L 09/04/2024 6:56 PM CDT [facility] Blood No Phlebotomy Charged / Unknown 09/04/2024 4:55 PM CDT 09/04/2024 6:06 PM CDT us Priyank Zepeda MD CHEMISTRY ORDERABLES Final Re sult [facility] [address] [place] [address] * (ABNORMAL) PHOSPHORUS (PO4) (09/04/2024 4:55 PM CDT) PHOSPHORUS 2.3(L) 2.5 - 4.5 mg/dL 09/04/2024 6:39 PM CDT [facility] Blood No Phlebotomy Charged / Unknown 09/04/2024 4:55 PM CDT 09/04/2024 6:06 PM CDT us Priyank Zepeda MD CHEMISTRY ORDERABLES Final Re sult Performing Organization Address City/[facility]/ZIP Co de Phone Number [facility] [address] [place] [address] * (ABNORMAL) CMP (COMPREHENSIVE METABOLIC PANEL) (09/04/2024 4:55 PM CDT) SODIUM 143 136 - 145 mmol/L 09/04/2024 6:39 PM CDT [facility] POTASSIUM 4.0 3.5 - 5.1 mmol/L 09/04/2024 6:39 PM CDT [facility] CHLORIDE 114(H) 98 - 107 mmol/L 09/04/2024 6:39 PM CDT [facility] CO2, VENOUS 23 22 - 30 mmol/L 09/04/2024 6:39 PM CDT [facility] ANION GAP 10.0 <18.0 mmol/L 09/04/2024 6:39 PM CDT [facility] GLUCOSE 87 70 - 99 mg/dL 09/04/2024 6:39 PM CDT [facility] BUN 10 10 - 20 mg/dL 09/04/2024 6:39 PM CDT [facility] CREATININE, BLOOD 0.77 0.60 - 1.00 mg/dL 09/04/2024 6:39 PM [facility] BUN/CREATININE RATIO 13 12 - 20 ratio 09/04/2024 6:39 PM [facility] TOTAL PROTEIN 6.8 6.0 - 8.0 g/dL 09/04/2024 6:39 PM [facility] ALBUMIN 2.7(L) 3.5 - 5.0 g/dL 09/04/2024 6:39 PM [facility] A/G RATIO 0.7(L) 1.0 - 2.2 09/04/2024 6:39 PM [facility] CALCIUM 8.2(L) 8.7 - 10.5 mg/dL 09/04/2024 6:39 PM [facility] T BILI 0.4 0.2 - 1.2 mg/dL 09/04/2024 6:39 PM [facility] SGOT (AST) 52(H) <43 U/L 09/04/2024 6:39 PM [facility] SGPT (ALT) 37 <56 U/L 09/04/2024 6:39 PM [facility] ALKALINE PHOSPHATASE 137 40 - 150 U/L 09/04/2024 6:39 PM [facility] GFR, ESTIMATED >60 >=60 09/04/2024 6:39 PM [facility] Comment: Creatinine Clearance is the preferred criteria for selecting drug dose adjustments in renally impaired patients. The GFR is provided as additional pertinent clinical information. GFR is reported in mL/min/1.73 sq m. Calculation based on the Chronic Kidney Disease Epidemiology Collaboration (CKD- EPI) equation refit without adjustment for race. GFR, EST. >60 >=60 025 6:39 PM [facility] GFR, EST. NONAFRICAN >60 >=60 09/04/2024 6:39 PM [facility] Blood No Phlebotomy Charged / Unknown 09/04/2024 4:55 PM CDT 09/04/2024 6:06 PM CDT us Priyank Zepeda MD CHEMISTRY ORDERABLES Final Re sult [facility] [address] [place] [address] documented in this encounter Visit Diagnoses Diagnosis Secondary hyperparathyroidism of renal origin (HCC) Secondary hyperparathyroidism (of renal origin) Vitamin D deficiency, unspecified Hypothyroidism, unspecified documented in this encounter Care Teams Will Call Clerk Relationship Specialty Start Date End Date Priyank Zepeda MD [address] [place] [address] PCP - General Internal Medicine 08/08/24 documented as of this encounter
--- OUTSIDE RECORDS SUMMARY | 2024-10-21 10:43 | XMS_ITS | Clinical Summary ---
Author Organization [facility] Address [address] [address] Phone Care Team Providers Care Child And Youth Program Assistant Name Role Phone Priyank Zepeda MD Primary Care Provider [phone] Allergies No known active allergies Medications calcium [...] route 2 times per day Active Pancrelipase, Ina-Uecd-Limd, (CREON PO) Take 24,000 Units by mouth 3 times daily (with meals). Take 1 capsule by mouth 3 times daily with meals Active spironolactone (ALDACTONE) 25 MG Tablet Take 25 mg by mouth daily. Active BETA CAROTENE PO Take 7,500 mcg by mouth daily. Active Cyanocobalamin (VITAMIN B12 PO) Take 2,500 mcg by mouth daily. Active pancrelipase, lipase-protease- amylase, (Creon) [address] Particles Take 1 Capsule [...] 09/16/2024 1:30 PM CDT Home Care Visit [address] [address] Eloisa Ruiz, PT PT - OASIS DISCHARGE 09/15/2024 Nurse Triage [address] [address] Virginia Andres, RN Blood in Stools 09/12/2024 2:00 PM CDT Home Care Visit [address] [address] Viola Richard, WIND TURBINE ENGINEER PT - HOME VISIT 09/12/2024 10:00 AM CDT Home Care Visit [address] [address] Mary Perez, RN SN - DISCIPLINE DISCHARGE 09/12/2024 Travel 09/11/2024 1:30 PM CDT Home Care Visit [address] [address] Moni Mendoza OT OT - DISCIPLINE DISCHARGE 09/10/2024 2:30 PM CDT Home Care Visit [address] [address] Viola Richard, WIND TURBINE ENGINEER PT - HOME VISIT 09/06/2024 10:00 AM CDT Home Care Visit [address] [address] Asia Salazar, BARRY OT - HOME VISIT 09/06/2024 Home Care Visit [address] [address] Asia Salazar, BARRY CASE COMMUNICATION 09/04/2024 2:00 PM CDT Home Care Visit [address] [address] Mary Perez, RN SN - LAB 09/04/2024 10:30 AM CDT Home Care Visit [address] [address] Viola Richard, WIND TURBINE ENGINEER PT - HOME VISIT 09/04/2024 Lab Requisition [facility] Services [address] [place] [address] Priyank Zepeda MD Secondary hyperparathyroidism of renal origin (HCC); Vitamin D deficiency, unspecified; Hypothyroidism, unspecified 09/04/2024 Travel 09/03/2024 12:30 PM CDT Home Care Visit [address] [address] Asia Salazar, DIVISION SERVICE MANAGER OT - HOME VISIT 09/03/2024 11:00 AM CDT Home Care Visit [address] [address] Lawanda Fragoso LPN SN - HOME VISIT 09/02/2024 12:00 PM CDT Home Care Visit [address] [address] Eloisa Ruiz, PT PT - REASSESSMENT 08/30/2024 10:30 AM CDT Home Care Visit [address] [address] Asia Salazar, BARRY OT - HOME VISIT 08/29/2024 9:30 AM CDT Home Care Visit [address] [address] Viola Richard, WIND TURBINE ENGINEER PT - HOME VISIT 08/29/2024 Travel 08/28/2024 9:30 AM CDT Home Care Visit [address] [address] Asia Salazar, DIVISION SERVICE MANAGER OT - HOME VISIT 08/27/2024 1:00 PM CDT Home Care Visit [address] [address] Mary Perez RN SN - HOME VISIT 08/27/2024 11:00 AM CDT Home Care Visit [address] [address] Viola Richard, WIND TURBINE ENGINEER PT - HOME VISIT 08/27/2024 Travel 08/23/2024 12:00 PM CDT Home Care Visit [address] [address] Asia Salazar, BARRY OT - HOME VISIT 08/22/2024 1:00 PM CDT Home Care Visit [address] [address] Viola Richard, WIND TURBINE ENGINEER PT - HOME VISIT 08/20/2024 12:00 PM CDT Home Care Visit [address] [address] Mary Perez RN SN - HOME HEALTH INITIAL EVALUATION 08/20/2024 11:15 AM CDT Home Care Visit [address] [address] Moni Mendoza, OT OT - HOME VISIT 08/20/2024 10:00 AM CDT Home Care Visit [address] [address] Viola Richard, WIND TURBINE ENGINEER PT - HOME VISIT 08/20/2024 Travel 08/18/2024 Home Care Visit [address] [address] Eloisa Ruiz, PT CARE CONFERENCE 08/16/2024 1:30 PM CDT Home Care Visit [address] [address] Eloisa Ruiz, PT PT - HOME VISIT 08/16/2024 12:45 PM CDT Home Care Visit [address] [address] Moni Mendoza, OT OT - INITIAL EVALUATION 08/16/[address] [address] Eloisa Ruiz, PT Medication Management 08/14/2024 Home Care Visit [address] [address] Eloisa Ruiz, PT TELEPHONE ENCOUNTER 08/14/2024 Home Care Visit [address] [address] Eloisa Ruiz, PT TELEPHONE ENCOUNTER 08/13/2024 2:30 PM CDT Home Care Visit [address] [address] Eloisa Ruiz, PT PT - OASIS START OF CARE 08/13/[address] [address] Eloisa Ruiz, PT Medication Management 08/13/2024 Plan of Care Documentation [address] [address] from Last 3 Months Social History Tobacco [...] 19.0 ng/mL 09/04/2024 6:55 PM CDT [facility] Blood No Phlebotomy Charged / Unknown 09/04/2024 4:55 PM CDT 09/04/2024 6:06 PM CDT Narrative [facility] - 09/04/2024 6:55 PM CDT Published reference ranges for Vitamin D vary depending on time and place and method of testing, and on patient's age, sex, ethnicity and levels of other measured analytes such as parathormone, calcium and phosphorus. The result should be evaluated in conjunction with clinical findings and suspicions. [place] [employer] and Endocrine Clinical Practice Guidelines: Status Vitamin D levels (ng/mL) Deficient <=20 At risk of inadequacy 21-29 Sufficient 30-100 Centers of Disease Control and Prevention Guidelines: Status Vitamin D levels (ng/mL) Deficient <13 At risk of inadequacy 13-19 Sufficient 20-50 Possibly harmful >50 References: [place] [employer], 2010 Dietary reference intakes for calcium and vitamin D. [place]: The National Academies Press. Yo M, Blayne N, Sara LEES, et al., Evaluation, treatment, and prevention of Vitamin D deficiency: an Endocrinology Clinical Practice Guideline. JCEM 2011 96: 7 8651-8922. Kiet A, Dario C, Yemi D, et al., Vitamin D Status: [place], , [facility] data brief, no. 59, MD [place]: National Center for Health Statistics. 2011. us Priyank Zepeda MD CHEMISTRY ORDERABLES Final Re sult [facility] [place] [address] * (ABNORMAL) CBC WITH AUTO DIFFERENTIAL (09/04/2024 4:55 PM CDT) WBC 4.62 4.00 - 12.00 10(3)/mcL 09/04/2024 6:44 PM CDT [facility] RBC 3.31(L) 3.80 - 5.30 10(6)/mcL 09/04/2024 6:44 PM CDT [facility] HEMOGLOBIN (HGB) 10.2(L) 12.0 - 15.8 g/dL 09/04/2024 6:44 PM CDT [facility] HEMATOCRIT (HCT) 32.3(L) 36.0 - 47.0 % 09/04/2024 6:44 PM CDT [facility] MCV 97.6(H) 82.0 - 96.0 fL 09/04/2024 6:44 PM CDT [facility] MCH 30.8 26.0 - 34.0 pg 09/04/2024 6:44 PM CDT [facility] MCHC 31.6 31.0 - 36.0 g/dL 09/04/2024 6:44 PM CDT [facility] PLATELET COUNT 240 140 - 440 10(3)/mcL 09/04/2024 6:44 PM CDT [facility] RDW 18.8(H) 11.8 - 15.5 % 09/04/2024 6:44 PM CDT [facility] MPV 9.8 9.7 - 12.4 fL 09/04/2024 6:44 PM CDT [facility] NEUTROPHILS 75.4(H) 47.0 - 73.0 % 09/04/2024 6:44 PM CDT [facility] LYMPHOCYTES 11.9(L) 18.0 - 42.0 % 09/04/2024 6:44 PM CDT [facility] MONOCYTES 9.3 4.0 - 12.0 % 09/04/2024 6:44 PM CDT [facility] EOSINOPHILS 2.8 0.0 - 5.0 % 09/04/2024 6:44 PM CDT [facility] BASOPHILS 0.6 0.0 - 1.0 % 09/04/2024 6:44 PM CDT [facility] ABSOLUTE NEUTROPHILS 3.48 1.60 - 7.70 10(3)/mcL 09/04/2024 6:44 PM CDT [facility] ABSOLUTE LYMPHOCYTES 0.55(L) 1.30 - 3.20 10(3)/mcL 09/04/2024 6:44 PM CDT [facility] ABSOLUTE MONOCYTES 0.43 0.20 - 1.00 10(3)/mcL 09/04/2024 6:44 PM CDT [facility] ABSOLUTE EOSINOPHIL 0.13 0.00 - 0.40 10(3)/mcL 09/04/2024 6:44 PM CDT [facility] ABSOLUTE BASOPHILS 0.03 0.00 - 0.10 10(3)/mcL 09/04/2024 6:44 PM CDT [facility] NRBC PER 100 WBC 0 09/05/19 6:44 PM CDT [facility] RESULTS ARE CONSISTENT WITH PERIPHERAL SMEAR REVIEW Yes 09/04/2024 6:44 PM CDT [facility] RBC MORPHOLOGY CONSISTENT WITH INDICES Yes 09/04/2024 6:44 PM CDT [facility] Blood No Phlebotomy Charged / Unknown 09/04/2024 4:55 PM CDT 09/04/2024 6:06 PM CDT us Priyank Zepeda MD HEMATOLOGY ORDERABLES Final R esult Performing Organization Address City/[facility]/ZIP Co de Phone Number [facility] [place] [address] * (ABNORMAL) THYROID STIMULATING HORMONE (TSH) (09/04/2024 4:55 PM CDT) [facility] TSH 9.593(H) 0.300 - 5.000 mIU/L 09/04/2024 6:56 PM CDT [facility] Blood No Phlebotomy Charged / Unknown 09/04/2024 4:55 PM CDT 09/04/2024 6:06 PM CDT us Priyank Zepeda MD CHEMISTRY ORDERABLES Final Re sult [facility] [place] [address] * (ABNORMAL) PHOSPHORUS (PO4) (09/04/2024 4:55 PM CDT) PHOSPHORUS 2.3(L) 2.5 - 4.5 mg/dL 09/04/2024 6:39 PM CDT [facility] Blood No Phlebotomy Charged / Unknown 09/04/2024 4:55 PM CDT 09/04/2024 6:06 PM CDT us Priyank Zepeda MD CHEMISTRY ORDERABLES Final Re sult [facility] [place] [address] * (ABNORMAL) CMP (COMPREHENSIVE METABOLIC PANEL) (09/04/2024 4:55 PM CDT) Pathologist [facility] SODIUM 143 136 - 145 mmol/L 09/04/2024 6:39 PM CDT [facility] POTASSIUM 4.0 3.5 - 5.1 mmol/L 09/04/2024 6:39 PM CDT [facility] CHLORIDE 114(H) 98 - 107 mmol/L 09/04/2024 6:39 PM CDT [facility] CO2, VENOUS 23 22 - 30 mmol/L 09/04/2024 6:39 PM CDT [facility] ANION GAP 10.0 <18.0 mmol/L 09/04/2024 6:39 PM CDT [facility] GLUCOSE 87 70 - 99 mg/dL 09/04/2024 6:39 PM CDT [facility] BUN 10 10 - 20 mg/dL 09/04/2024 6:39 PM CDT [facility] CREATININE, BLOOD 0.77 0.60 - 1.00 mg/dL 09/04/2024 6:39 PM CDT [facility] BUN/CREATININE RATIO 13 12 - 20 ratio 09/04/2024 6:39 PM CDT [facility] TOTAL PROTEIN 6.8 6.0 - 8.0 g/dL 09/04/2024 6:39 PM CDT [facility] ALBUMIN 2.7(L) 3.5 - 5.0 g/dL 09/04/2024 6:39 PM CDT [facility] A/G RATIO 0.7(L) 1.0 - 2.2 09/04/2024 6:39 PM CDT [facility] CALCIUM 8.2(L) 8.7 - 10.5 mg/dL 09/04/2024 6:39 PM CDT [facility] T BILI 0.4 0.2 - 1.2 mg/dL 09/04/2024 6:39 PM CDT [facility] SGOT (AST) 52(H) <43 U/L 09/04/2024 6:39 PM CDT [facility] SGPT (ALT) 37 <56 U/L 09/04/2024 6:39 PM CDT [facility] ALKALINE PHOSPHATASE 137 40 - 150 U/L 09/04/2024 6:39 PM CDT [facility] GFR, ESTIMATED >60 >=60 09/04/2024 6:39 PM CDT [facility] Comment: Creatinine Clearance is the preferred criteria for selecting drug dose adjustments in renally impaired patients. The GFR is provided as additional pertinent clinical information. GFR is reported in mL/min/1.73 sq m. Calculation based on the Chronic Kidney Disease Epidemiology Collaboration (CKD- EPI) equation refit without adjustment for race. GFR, EST. >60 >=60 025 6:39 PM CDT [facility] GFR, EST. NONAFRICAN >60 >=60 09/04/2024 6:39 PM CDT [facility] Blood No Phlebotomy Charged / Unknown 09/04/2024 4:55 PM CDT 09/04/2024 6:06 PM CDT us Priyank Zepeda MD CHEMISTRY ORDERABLES Final Re sult [facility] [place] [address] * (ABNORMAL) PREALBUMIN (PAB) (09/04/2024 4:55 PM CDT) PRE ALBUMIN 13(L) 14 - 37 mg/dL 09/05/2024 6:00 PM [facility]T [facility] No Phlebotomy Charged / Unknown 09/04/2024 4:55 PM CDT 09/04/2024 6:06 PM CDT us Priyank Zepeda MD CHEMISTRY ORDERABLES Final Re sult [facility] [address] [place] [address], from Last 3 Months Insurance MEDICAID [employer] Advance Directives Documents on File Type Date Recorded Patient Pharmaceutical Salesperson Expl anation Power of Course Instructor for Health Care 08/26/2024 9:18 AM POA-HC Power of Course Instructor for Health Care 08/26/2024 9:18 AM POA-HC Power of Course Instructor for Health Care 08/26/2024 9:13 AM POA-HC Power of Course Instructor for Health Care 08/26/2024 9:08 AM POA-HC Power of Course Instructor for Health Care 08/14/2024 12:10 PM POA HC 07/30/2024 * Full Code (Latest Code Status on File) Date Activated Date Inactivated Comments 08/13/2024 10:26 PM Care Teams Child And Youth Program Assistant Relationship Specialty Start Date End Date Priyank Zepeda MD [address] [place] [address] PCP - General Internal Medicine 08/08/24
[2024-10-21 12:45] VITALS: BP 123/68; PULSE 68; RESP 16; TEMP 36.4; O2SAT 98
== END 2024-10-21 10:08 | disposition home or self-care (01) ==
PROVIDERS: PCP Internal Medicine; Visit Provider Internal Medicine
DX: D50.9 Iron deficiency anemia, unspecified (principal)
CPT/HCPCS: 96365; 96366; J1756; J7050

== ENCOUNTER 2024-11-04 10:04 | Outpatient (CLI) | payer OTHER, SELFPAY ==
[2024-11-04 10:08] VITALS: BMI 32.3
[2024-11-04] MEDS: IRON SUCROSE COMPLEX 300 MG in SODIUM CHLORIDE 0.9% IV 250 ML 125 MG IVPB (10:15)
[2024-11-04 10:29] VITALS: BP 135/80; PULSE 64; RESP 16; TEMP 36.6; O2SAT 97
--- OUTSIDE RECORDS SUMMARY | 2024-11-04 10:50 | XMS_ITS ---
Author Organization Unknown Address [address] [place] [id number] Phone Care Team Providers Care Direct Mail Coordinator Name Role Phone GARFIELD Ashby Attending Unavailable [...] em Smoking History Never smoker (Never Smoked) 110516371 SNOMED CT Sex Female Vital Signs Vital Sign Value Unit [place] Value [place] Unit Date/Time Recent/Initial? Code Code System Body Mass Index 30.45 kg/m2 11/13/2023 14:43 Initial 27202 -5 INC Systolic Blood Pressure 136 mm[Hg] 12/14/2023 08:17 Initial 8480- 6 LOINC Diastolic Blood Pressure 78 mm[Hg] 12/14/2023 08:17 Initial 8462- 4 INC Body Surface Area 1.95 m2 11/13/2023 14:43 Initial 3140- 1 LOINC Height 165.100 0 cm 65.00 in 11/13/2023 14:43 Initial 8302- 2 INC O2 Saturation 99 % 2023 08:17 Initial 59618 -5 INC Pulse 57.0 /min 12/14/2023 08:17 Initial 8867- 4 LOINC Respiration 20 /min 12/14/19 08:17 Initial 9279- 1 LOINC Temperature 36.2 Kait 97.1 F 12/14/19 24 08:17 Initial 8310- 5 LOINC Weight 83.01 kg 183.00 lbs 11/13/2023 14:43 Initial 56596 -7 [facility] Medications Medication Start Date End Date Route Frequency Dose Code Code System Medication Instructions Home Meds Vitamin B12 1000 MCG Sublingual Tablet 12/14/2023 Unknown SUBLINGUAL ONCE A DAY [address] 1000 MCG SUBLINGUAL ONCE A DAY Tums Extra Strength 750 MG Oral Tablet, Chewable 12/14/2023 Unknown ORAL NEEDED 750 MG 0599816 RxNorm TAKE 750 MG ORAL NEEDED Amitriptyline 10MG Oral Tablet 12/14/2023 Unknown ORAL TWICE A DAY 10 MILLIGRA MS 301767 RxNorm TAKE 10 MILLIGRAMS ORAL TWICE A DAY Calcitriol 0.5MCG Oral Capsule, Liquid Filled 12/14/2023 Unknown ORAL TWICE A DAY 2 CAPSULE 991639 RxNorm TAKE 2 CAPSULE ORAL TWICE A DAY Calcium Citrate Powder 12/14/2023 [address] ROUTE NOT APPLICABLE 1 unit(s) RxNorm 1 EACH ROUTE NOT APPLICABLE Eliquis 5MG Oral Tablet 12/14/2023 12/14/19 24 ORAL TWICE A DAY 5 MILLIGRA MS 3185906 RxNorm TAKE 5 MILLIGRAMS ORAL TWICE A DAY FLUoxetine 20MG/5ML Oral Solution 12/14/2023 Unknown ORAL TWICE A DAY 304660 RxNorm TAKE mL ORAL TWICE A DAY Iron 325MG Oral Tablet 12/14/2023 Unknown ORAL THREE TIMES A DAY 325 MILLIGRA MS 899782 RxNorm TAKE 325 MILLIGRAMS ORAL THREE TIMES A DAY Levothyroxine 125MCG Oral Tablet 12/14/2023 Unknown ORAL ONCE A DAY 0.5 TABLET 153974 RxNorm TAKE 0.5 TABLET ORAL ONCE A DAY Loratadine 10MG Oral Tablet 12/14/2023 Unknown ORAL NEEDED 10 MILLIGRA MS 763131 RxNorm TAKE 10 MILLIGRAMS ORAL NEEDED Metoprolol Succinate 50MG Oral Tablet, Extended Release 12/14/2023 Unknown ORAL ONCE A DAY 50 MILLIGRA MS 575735 RxNorm TAKE 50 MILLIGRAMS ORAL ONCE A DAY Potassium Chloride 20MEQ Oral Tablet, Extended Release 12/14/2023 Unknown ORAL TWICE A DAY 20 MEQ 5240812 RxNorm TAKE 20 MEQ ORAL TWICE A DAY Sodium Bicarbonate 650MG Oral Tablet 12/14/2023 Unknown ORAL THREE TIMES A DAY 650 MILLIGRA MS 775355 RxNorm TAKE 650 MILLIGRAMS ORAL THREE TIMES A DAY Tab-A-Ezio [id number] U-6MCG Oral Tablet 12/14/2023 Unknown ORAL ONCE A DAY 1 unit(s) 516332 RxNorm TAKE 1 EACH ORAL ONCE A [...] Code Syste m Vocal cord nodule completed 05980971 SNOMEDC T Fracture of tibia completed 42582378 SNOMEDC T Volvulus completed 1270086 SNOMEDCT APPENDECTOMY completed 96266382 SNOMEDCT Removal of kidney stone completed 5685727 S NOMEDCT Anesthesia for lower intesti nal endoscopic procedures, endoscope introduce 12/14/2023 completed 06616 CPT Gastric bypass completed 633949219 SNOMEDCT History of parathyroidectomy completed 2226140 08185768 SNOMEDCT Colonoscopy, flexible; with biopsy, single or multiple 12/14/2023 completed 74603 CPT Problems Problem Start Date Resolved Date Status Code Code System CHRONIC KIDNEY DISEASE, STAG E 3A active 188159798 SNOMED-CT Allergies and Adverse Reactions Allergy Substance Reaction Severity Start Date Concern Status Code Code System ADHESIVE Itching (SNOMED-CT: 841348514) Active SUCCINYLCHOLINE CHLORIDE HARD TO WAKE UP (SNOMED-CT: null) Active 3565 RxNorm CIPRO REDNESS IV ONLY (SNOMED-CT: null) Mild Active 230615 RxNorm No Known Drug Allergies Active 485221968 SNOMED-CT Plan of Treatment Colonoscopy 12/14/2023 Encounters Encounter Diagnosis Start Date Code Code Sys tem Noninfective gastroenteritis and colitis, unspecified 12/14/2023 SNOMED-CT Personal Care Team Section Performer Name Performer Role Active Date Inactive KIERAN Gilbert PCP - Primary care physician 2024-04-16 Procedures Notes
--- OUTSIDE RECORDS SUMMARY | 2024-11-04 10:50 | XMS_ITS | Encounter Summary ---
Author Organization [facility] Address [address] [place] [address] Phone Care Team Providers Care Mini Lab Operator Name Role Phone Priyank Zepeda MD Primary Care Provider [phone] Encounter Details Date Type Department Care Team (Late st Contact Info) Description 09/04/2024 Lab [facility]quisition [facility] [address] [place] [address] Priyank Zepeda MD [address] [place] [address] Secondary hyperparathyroidism of renal origin [...] [facility] [place] [address] * (ABNORMAL) PREALBUMIN (PAB) (09/04/2024 4:55 PM CDT) Pathologist [facility] PRE ALBUMIN 13(L) 14 - 37 mg/dL 09/05/2024 6:00 PM CDT [facility] Blood No Phlebotomy Charged / Unknown 09/04/2024 4:55 PM CDT 09/04/2024 6:06 PM CDT us Priyank Zepeda MD CHEMISTRY ORDERABLES Final Re sult [facility] [address] [place] [address], * VITAMIN D, 25 HYDROXY TOTAL (09/04/2024 [...] in conjunction with clinical findings and suspicions. [place] [facility] [employer] and Endocrine Clinical Practice Guidelines: Status Vitamin D levels (ng/mL) Deficient <=20 At risk of inadequacy 21-29 Sufficient 30-100 Centers of Disease Control and Prevention Guidelines: Status Vitamin D levels (ng/mL) Deficient <13 At risk of inadequacy 13-19 Sufficient 20-50 Possibly harmful >50 References: [place] [employer], 2010 Dietary reference intakes for calcium and vitamin D. [place]: The National Academies Press. Yo M, Blayne N, Sara LEES, et al., Evaluation, treatment, and prevention of Vitamin D deficiency: an Endocrinology Clinical Practice Guideline. JCEM 2011 96: 7 8736-5464. Kiet A, Dario C, Yemi D, et al., Vitamin D Status: [place], , [facility] data brief, no. 59, MD Lance: National Center for Health Statistics. 2011. us Priyank Zepeda MD CHEMISTRY ORDERABLES Final Re sult [facility] [place] [address] * (ABNORMAL) THYROID STIMULATING HORMONE (TSH) (09/04/2024 4:55 PM CDT) TSH 9.593(H) 0.300 - 5.000 mIU/L 09/04/2024 6:56 PM CDT [facility] Blood No Phlebotomy Charged / Unknown 09/04/2024 4:55 PM CDT 09/04/2024 6:06 PM CDT us Priyank Zepeda MD CHEMISTRY ORDERABLES Final Re sult [facility] [place] [address] * (ABNORMAL) PHOSPHORUS (PO4) (09/04/2024 4:55 PM CDT) PHOSPHORUS 2.3(L) 2.5 - 4.5 mg/dL 09/04/2024 6:39 PM CDT [facility] Blood No Phlebotomy Charged / Unknown 09/04/2024 4:55 PM CDT 09/04/2024 6:06 PM CDT us Priyank Zepeda MD CHEMISTRY ORDERABLES Final Re sult Performing Organization Address City/[facility]/ZIP Co de Phone Number [facility] [place] [address] * (ABNORMAL) CMP (COMPREHENSIVE METABOLIC PANEL) (09/04/2024 [...] 0.60 - 1.00 mg/dL 09/04/2024 6:[address] [facility] BUN/CREATININE RATIO 13 12 - 20 ratio 09/04/2024 6:[address] [facility] TOTAL PROTEIN 6.8 6.0 - 8.0 g/dL 09/04/2024 6:[address] [facility] ALBUMIN 2.7(L) 3.5 - 5.0 g/dL 09/04/2024 6:[address] [facility] A/G RATIO 0.7(L) 1.0 - 2.2 09/04/2024 6:[address] [facility] CALCIUM 8.2(L) 8.7 - 10.5 mg/dL 09/04/2024 6:[address] [facility] T BILI 0.4 0.2 - 1.2 mg/dL 09/04/2024 6:[address] [facility] SGOT (AST) 52(H) <43 U/L 09/04/2024 6:[address] [facility] SGPT (ALT) 37 <56 U/L 09/04/2024 6:[address] [facility] ALKALINE PHOSPHATASE 137 40 - 150 U/L 09/04/2024 6:[address] [facility] GFR, ESTIMATED >60 >=60 09/04/2024 6:[address] [facility] Comment: Creatinine Clearance is the preferred criteria for selecting drug dose adjustments in renally impaired patients. The GFR is provided as additional pertinent clinical information. GFR is reported in mL/min/1.73 sq m. Calculation based on the Chronic Kidney Disease Epidemiology Collaboration (CKD- EPI) equation refit without adjustment for race. GFR, EST. >60 >=60 025 6:[address] [facility] GFR, EST. NONAFRICAN >60 >=60 09/04/2024 6:[address] [facility] Blood No Phlebotomy Charged / Unknown 09/04/2024 4:55 PM CDT 09/04/2024 6:06 PM CDT us Priyank Zepeda MD CHEMISTRY ORDERABLES Final Re sult [facility] [place] [address] documented in this encounter Visit Diagnoses Diagnosis Secondary hyperparathyroidism of renal origin (HCC) Secondary hyperparathyroidism (of renal origin) Vitamin D deficiency, unspecified Hypothyroidism, unspecified documented in this encounter Care Teams Mini Lab Operator Relationship Specialty Start Date End Date Priyank Zepeda MD [address] [place] [address] PCP - General Internal Medicine 08/08/24 documented as of this encounter
--- OUTSIDE RECORDS SUMMARY | 2024-11-04 10:50 | XMS_ITS | Encounter Summary ---
Author Organization [facility] Address [address] [place] [address] Phone Care Team Providers Care Cooling Pan Tender Name Role Phone Priyank Zepeda MD Primary Care Provider [phone] Reason for Visit * Reason Onset Date Comments Medication Management 08/13/2024 Encounter Details Date Type Department Care Team (Late st Contact Info) Description 08/13/2024 Telephone [facility] [address] [place] [address] Eloisa Ruiz, PT Medication Management Social History [...] on filedocumented in this encounter Care Teams Cooling Pan Tender Relationship Specialty Start Date End Date Priyank Zepeda MD [address] [place] [address] PCP - General Internal Medicine 08/08/24 documented as of this encounter
--- OUTSIDE RECORDS SUMMARY | 2024-11-04 10:50 | XMS_ITS | Clinical Summary ---
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 [place] [address] PCP - General 03/11/02
--- OUTSIDE RECORDS SUMMARY | 2024-11-04 10:50 | XMS_ITS | Encounter Summary ---
Author Organization [facility] Address [address] [place] [address] Phone Care Team Providers Care Head Tennis Coach Name Role Phone Priyank Zepeda MD Primary Care Provider [phone] Reason for Visit * Reason Onset Date Comments Medication Management 08/16/2024 Encounter Details Date Type Department Care Team (Late st Contact Info) Description 08/16/2024 [facility] [address] [place] [address] Eloisa Ruiz, PT Medication Management Social History [...] [facility] patient was observation at [facility] for low potassium from /08/15/24. A [...] filedocumented in this encounter Care Teams Head Tennis Coach Relationship Specialty Start Date End Date Priyank Zepeda MD [address] [place] [address] PCP - General Internal Medicine 08/08/24 documented as of this encounter
--- OUTSIDE RECORDS SUMMARY | 2024-11-04 10:50 | XMS_ITS | Encounter Summary ---
Author Organization [facility] Address [address] [facility] [facility] [facility] [address] [place] [address] Phone Care Team Providers Care Automobile Tire Builder Name Role Phone Priyank Zepeda MD Primary Care Provider [phone] Encounter Details Date Type Department Care Team (Late Contact Info) Description 01/03/2020 Orders Only [facility]. [address] [facility] [address] [place] [id number] Kristofer Ortiz MD [address] [facility] [address] [place] [address] Chronic kidney disease stage 3 [...] Department Care Team (Late Contact Info) Description 04/22/2025 11:45 AM SALES RESEARCH ANALYST Office Visit [facility]. [address] [facility] [address] [place] [address] Kristofer Ortiz MD [address] [place] [address] [address] documented as of this encounter Visit Diagnoses Diagnosis Chronic kidney disease stage 3 (HCC) documented in this encounter Care Teams Automobile Tire Builder Relationship Specialty Start Date End Date Priyank Zepeda MD [address] [place] [address] PCP - General Internal Medicine 05/17/19 documented as of this encounter
--- OUTSIDE RECORDS SUMMARY | 2024-11-04 10:50 | XMS_ITS | Encounter Summary ---
Author Organization [facility] Address [address] [address] [place] [address] Phone Care Team Providers Care Scheduling Clerk Name Role Phone Priyank Zepeda MD Primary Care Provider [phone] Encounter Details Date Type Department Care Team (Late Contact Info) Description 12/06/2019 Orders Only [facility]. 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 [address] [facility] [address] [place] [address] Kristofer Ortiz MD [address] [place] [address] [address] documented as of this encounter Visit Diagnoses Diagnosis Chronic kidney disease stage 3 (HCC) documented in this encounter Care Teams Scheduling Clerk Relationship Specialty Start Date End Date Priyank Zepeda MD [address] [place] [address] PCP - General Internal Medicine 05/17/19 documented as of this encounter
--- OUTSIDE RECORDS SUMMARY | 2024-11-04 10:51 | XMS_ITS | Clinical Summary ---
Author Organization [facility] Address [address] [address] Phone Care Team Providers Care Route Agent Name Role Phone Priyank Zepeda MD Primary Care Provider [phone] Allergies No known active allergies Medications calcium [...] route 2 times per day Active Pancrelipase, Jup-Qntv-Ifhq, (CREON PO) Take 24,000 Units by mouth 3 times daily (with meals). Take 1 capsule by mouth 3 times daily with meals Active spironolactone (ALDACTONE) 25 MG Tablet Take 25 mg by mouth daily. Active BETA CAROTENE PO Take 7,500 mcg by mouth daily. Active Cyanocobalamin (VITAMIN B12 PO) Take 2,500 mcg by mouth daily. Active pancrelipase, lipase-protease- amylase, (Creon) [address] Particles Take 1 Capsule [...] 09/16/2024 1:30 PM CDT Home Care Visit [address] [address] Eloisa Ruiz, PT PT - OASIS DISCHARGE 09/15/2024 Nurse Triage [address] [address] Virginia Andres, RN Blood in Stools 09/12/2024 2:00 PM CDT Home Care Visit [address] [address] Viola Richard, REFRIGERATION REPAIR SUPERVISOR PT - HOME VISIT 09/12/2024 10:00 AM CDT Home Care Visit [address] [address] Mary Perez, RN SN - DISCIPLINE DISCHARGE 09/12/2024 Travel 09/11/2024 1:30 PM CDT Home Care Visit [address] [address] Moni Mendoza OT OT - DISCIPLINE DISCHARGE 09/10/2024 2:30 PM CDT Home Care Visit [address] [address] Viola Richard, REFRIGERATION REPAIR SUPERVISOR PT - HOME VISIT 09/06/2024 10:00 AM CDT Home Care Visit [address] [address] Asia Salazar, BARRY OT - HOME VISIT 09/06/2024 Home Care Visit [address] [address] Asia Salazar, BARRY CASE COMMUNICATION 09/04/2024 2:00 PM CDT Home Care Visit [address] [address] Mary Perez, RN SN - LAB 09/04/2024 10:30 AM CDT Home Care Visit [address] [address] Viola Richard, REFRIGERATION REPAIR SUPERVISOR PT - HOME VISIT 09/04/2024 Lab Requisition [facility] [address] [place] [address] Priyank Zepeda MD Secondary hyperparathyroidism of renal origin (HCC); Vitamin D deficiency, unspecified; Hypothyroidism, unspecified 09/04/2024 Travel 09/03/2024 12:30 PM CDT Home Care Visit [address] [address] Asia Salazar, VETERINARY MEDICAL OFFICER OT - HOME VISIT 09/03/2024 11:00 AM CDT Home Care Visit [address] [address] Lawanda Fragoso LPN SN - HOME VISIT 09/02/2024 12:00 PM CDT Home Care Visit [address] [address] Eloisa Ruiz, PT PT - REASSESSMENT 08/30/2024 10:30 AM CDT Home Care Visit [address] [address] Asia Salazar, BARRY OT - HOME VISIT 08/29/2024 9:30 AM CDT Home Care Visit [address] [address] Viola Richard, REFRIGERATION REPAIR SUPERVISOR PT - HOME VISIT 08/29/2024 Travel 08/28/2024 9:30 AM CDT Home Care Visit [address] [address] Asia Salazar, VETERINARY MEDICAL OFFICER OT - HOME VISIT 08/27/2024 1:00 PM CDT Home Care Visit [address] [address] Mary Perez RN SN - HOME VISIT 08/27/2024 11:00 AM CDT Home Care Visit [address] [address] Viola Richard, REFRIGERATION REPAIR SUPERVISOR PT - HOME VISIT 08/27/2024 Travel 08/23/2024 12:00 PM CDT Home Care Visit [address] [address] Asia Salazar, BARRY OT - HOME VISIT 08/22/2024 1:00 PM CDT Home Care Visit [address] [address] Viola Richard, REFRIGERATION REPAIR SUPERVISOR PT - HOME VISIT 08/20/2024 12:00 PM CDT Home Care Visit [address] [address] Mary Perez RN SN - HOME HEALTH INITIAL EVALUATION 08/20/2024 11:15 AM CDT Home Care Visit [address] [address] Moni Mendoza, OT OT - HOME VISIT 08/20/2024 10:00 AM CDT Home Care Visit [address] [address] Viola Richard, REFRIGERATION REPAIR SUPERVISOR PT - HOME VISIT 08/20/2024 Travel 08/18/2024 Home Care Visit [address] [address] Eloisa Ruiz, PT CARE CONFERENCE 08/16/2024 1:30 PM CDT Home Care Visit [address] [address] Eloisa Ruiz, PT PT - HOME VISIT 08/16/2024 12:45 PM CDT Home Care Visit [address] [address] Moni Mendoza, OT OT - INITIAL EVALUATION 08/16/[address] [address] Eloisa Ruiz, PT Medication Management 08/14/2024 Home Care Visit [address] [address] Eloisa Ruiz, PT TELEPHONE ENCOUNTER 08/14/2024 Home Care Visit [address] [address] Eloisa Ruiz, PT TELEPHONE ENCOUNTER 08/13/2024 2:30 PM CDT Home Care Visit [address] [address] Eloisa Ruiz, PT PT - OASIS START OF CARE 08/13/[address] [address] Eloisa Ruiz, PT Medication Management 08/13/2024 Plan of Care Documentation [address] [address] from Last 3 Months Social History Tobacco [...] 1:41 PM CDT Height 165.1 cm (5' 5) 08/16/2024 1:33 PM CDT Body Mass Index [...] 19.0 ng/mL 09/04/2024 6:55 PM CDT [facility] Blood No Phlebotomy Charged / Unknown 09/04/2024 4:55 PM CDT 09/04/2024 6:06 PM CDT Narrative [facility] - 09/04/2024 6:55 PM CDT Published reference ranges for Vitamin D vary depending on time and place and method of testing, and on patient's age, sex, ethnicity and levels of other measured analytes such as parathormone, calcium and phosphorus. The result should be evaluated in conjunction with clinical findings and suspicions. [employer] of [employer] and Endocrine Clinical Practice Guidelines: Status Vitamin D levels (ng/mL) Deficient <=20 At risk of inadequacy 21-29 Sufficient 30-100 Centers of Disease Control and Prevention Guidelines: Status Vitamin D levels (ng/mL) Deficient <13 At risk of inadequacy 13-19 Sufficient 20-50 Possibly harmful >50 References: [employer], 2010 Dietary reference intakes for calcium and vitamin D. [place]: The National Academies Press. Yo M, Blayne N, Sara LEES, et al., Evaluation, treatment, and prevention of Vitamin D deficiency: an Endocrinology Clinical Practice Guideline. JCEM 2011 96: 7 9939-1136. Kiet A, Dario C, Yemi D, et al., Vitamin D Status: [place], , [facility] data brief, no. 59, MD [place]: National Center for Health Statistics. 2011. us Priyank Zepeda MD CHEMISTRY ORDERABLES Final Re sult [facility] [place] [address] * (ABNORMAL) CBC WITH AUTO DIFFERENTIAL (09/04/2024 4:55 PM CDT) WBC 4.62 4.00 - 12.00 10(3)/mcL 09/04/2024 6:44 PM CDT [facility] RBC 3.31(L) 3.80 - 5.30 10(6)/mcL 09/04/2024 6:44 PM CDT [facility] HEMOGLOBIN (HGB) 10.2(L) 12.0 - 15.8 g/dL 09/04/2024 6:44 PM CDT [facility] HEMATOCRIT (HCT) 32.3(L) 36.0 - 47.0 % 09/04/2024 6:44 PM CDT [facility] MCV 97.6(H) 82.0 - 96.0 fL 09/04/2024 6:44 PM CDT [facility] MCH 30.8 26.0 - 34.0 pg 09/04/2024 6:44 PM CDT [facility] MCHC 31.6 31.0 - 36.0 g/dL 09/04/2024 6:44 PM CDT [facility] PLATELET COUNT 240 140 - 440 10(3)/mcL 09/04/2024 6:44 PM CDT [facility] RDW 18.8(H) 11.8 - 15.5 % 09/04/2024 6:44 PM CDT [facility] MPV 9.8 9.7 - 12.4 fL 09/04/2024 6:44 PM CDT [facility] NEUTROPHILS 75.4(H) 47.0 - 73.0 % 09/04/2024 6:44 PM CDT [facility] LYMPHOCYTES 11.9(L) 18.0 - 42.0 % 09/04/2024 6:44 PM CDT [facility] MONOCYTES 9.3 4.0 - 12.0 % 09/04/2024 6:44 PM CDT [facility] EOSINOPHILS 2.8 0.0 - 5.0 % 09/04/2024 6:44 PM CDT [facility] BASOPHILS 0.6 0.0 - 1.0 % 09/04/2024 6:44 PM CDT [facility] ABSOLUTE NEUTROPHILS 3.48 1.60 - 7.70 10(3)/mcL 09/04/2024 6:44 PM CDT [facility] ABSOLUTE LYMPHOCYTES 0.55(L) 1.30 - 3.20 10(3)/mcL 09/04/2024 6:44 PM CDT [facility] ABSOLUTE MONOCYTES 0.43 0.20 - 1.00 10(3)/mcL 09/04/2024 6:44 PM CDT [facility] ABSOLUTE EOSINOPHIL 0.13 0.00 - 0.40 10(3)/mcL 09/04/2024 6:44 PM CDT [facility] ABSOLUTE BASOPHILS 0.03 0.00 - 0.10 10(3)/mcL 09/04/2024 6:44 PM CDT [facility] NRBC PER 100 WBC 0 09/05/19 6:44 PM CDT [facility] RESULTS ARE CONSISTENT WITH PERIPHERAL SMEAR REVIEW Yes 09/04/2024 6:44 PM CDT [facility] RBC MORPHOLOGY CONSISTENT WITH INDICES Yes 09/04/2024 6:44 PM CDT [facility] Blood No Phlebotomy Charged / Unknown 09/04/2024 4:55 PM CDT 09/04/2024 6:06 PM CDT us Priyank Zepeda MD HEMATOLOGY ORDERABLES Final R esult Performing Organization Address City/[facility]/ZIP Co de Phone Number [facility] [place] [address] * (ABNORMAL) THYROID STIMULATING HORMONE (TSH) (09/04/2024 4:55 PM CDT) [facility] TSH 9.593(H) 0.300 - 5.000 mIU/L 09/04/2024 6:56 PM CDT [facility] Blood No Phlebotomy Charged / Unknown 09/04/2024 4:55 PM CDT 09/04/2024 6:06 PM CDT us Priyank Zepeda MD CHEMISTRY ORDERABLES Final Re sult [facility] [place] [address] * (ABNORMAL) PHOSPHORUS (PO4) (09/04/2024 4:55 PM CDT) PHOSPHORUS 2.3(L) 2.5 - 4.5 mg/dL 09/04/2024 6:39 PM CDT [facility] Blood No Phlebotomy Charged / Unknown 09/04/2024 4:55 PM CDT 09/04/2024 6:06 PM CDT us Priyank Zepeda MD CHEMISTRY ORDERABLES Final Re sult [facility] [place] [address] * (ABNORMAL) CMP (COMPREHENSIVE METABOLIC PANEL) (09/04/2024 4:55 PM CDT) Pathologist [facility] SODIUM 143 136 - 145 mmol/L 09/04/2024 6:39 PM CDT [facility] POTASSIUM 4.0 3.5 - 5.1 mmol/L 09/04/2024 6:39 PM CDT [facility] CHLORIDE 114(H) 98 - 107 mmol/L 09/04/2024 6:39 PM CDT [facility] CO2, VENOUS 23 22 - 30 mmol/L 09/04/2024 6:39 PM CDT [facility] ANION GAP 10.0 <18.0 mmol/L 09/04/2024 6:39 PM CDT [facility] GLUCOSE 87 70 - 99 mg/dL 09/04/2024 6:39 PM CDT [facility] BUN 10 10 - 20 mg/dL 09/04/2024 6:39 PM CDT [facility] CREATININE, BLOOD 0.77 0.60 - 1.00 mg/dL 09/04/2024 6:39 PM CDT [facility] BUN/CREATININE RATIO 13 12 - 20 ratio 09/04/2024 6:39 PM CDT [facility] TOTAL PROTEIN 6.8 6.0 - 8.0 g/dL 09/04/2024 6:39 PM CDT [facility] ALBUMIN 2.7(L) 3.5 - 5.0 g/dL 09/04/2024 6:39 PM CDT [facility] A/G RATIO 0.7(L) 1.0 - 2.2 09/04/2024 6:39 PM CDT [facility] CALCIUM 8.2(L) 8.7 - 10.5 mg/dL 09/04/2024 6:39 PM CDT [facility] T BILI 0.4 0.2 - 1.2 mg/dL 09/04/2024 6:39 PM CDT [facility] SGOT (AST) 52(H) <43 U/L 09/04/2024 6:39 PM CDT [facility] SGPT (ALT) 37 <56 U/L 09/04/2024 6:39 PM CDT [facility] ALKALINE PHOSPHATASE 137 40 - 150 U/L 09/04/2024 6:39 PM CDT [facility] GFR, ESTIMATED >60 >=60 09/04/2024 6:39 PM CDT [facility] Comment: Creatinine Clearance is the preferred criteria for selecting drug dose adjustments in renally impaired patients. The GFR is provided as additional pertinent clinical information. GFR is reported in mL/min/1.73 sq m. Calculation based on the Chronic Kidney Disease Epidemiology Collaboration (CKD- EPI) equation refit without adjustment for race. GFR, EST. >60 >=60 025 6:39 PM CDT [facility] GFR, EST. NONAFRICAN >60 >=60 09/04/2024 6:39 PM CDT [facility] Blood No Phlebotomy Charged / Unknown 09/04/2024 4:55 PM CDT 09/04/2024 6:06 PM CDT us Priyank Zepeda MD CHEMISTRY ORDERABLES Final Re sult [facility] [place] [address] * (ABNORMAL) PREALBUMIN (PAB) (09/04/2024 4:55 PM CDT) PRE ALBUMIN 13(L) 14 - 37 mg/dL 09/05/2024 6:00 PM CDT 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 Expl anation Power of Disintegrator Feeder for Health Care 08/26/2024 9:18 AM POA-HC Power of Disintegrator Feeder for Health Care 08/26/2024 9:18 AM POA-HC Power of Disintegrator Feeder for Health Care 08/26/2024 9:13 AM POA-HC Power of Disintegrator Feeder for Health Care 08/26/2024 9:08 AM POA-HC Power of Disintegrator Feeder for Health Care 08/14/2024 12:10 PM POA HC 07/30/2024 * Full Code (Latest Code Status on File) Date Activated Date Inactivated Comments 08/13/2024 10:26 PM Care Teams Route Agent Relationship Specialty Start Date End Date Priyank Zepeda MD [address] [place] [address] PCP - General Internal Medicine 08/08/24
--- OUTSIDE RECORDS SUMMARY | 2024-11-04 10:51 | XMS_ITS | Clinical Summary ---
Author Organization [facility] Address [address] [place] [address] Care Team Providers Care Pretzel Cooker Name Role Phone Priyank Zepeda MD Primary Care Provider [phone] Source Comments [facility],non-owned Affiliates and Associated Physician Practices is amultiple site organization consisting of ambulatory clinics and hospital sitesin [place], [place], [place]. This disclosure is being madepursuant to the Care Everywhere program and may not contain all information available regarding this patient. Last updated 18.[facility] [employer] Allergies Active Allergy Reactions Criticality Noted Date [...] once daily 42 Each 08/07/2024 1:10 PM [employer] 5 Active ferrous sulfate 325 (65 FE) MG tablet Take 1 (one) tablet by mouth once daily after lunch 30 tablet 08/07/2024 1:10 PM [employer] 5 Active folic acid (Folvite) 1 MG tablet Take 1 (one) tablet by mouth once daily 30 tablet 08/07/2024 1:10 PM [employer] 5 Active pantoprazole EC (Protonix) 40 MG tablet Take 1 (one) tablet by mouth 2 times daily, before breakfast and supper 60 tablet 08/07/2024 1:10 PM [employer] 5 Active sucralfate (Carafate) 1 GM/10ML suspension Take 10 mL by mouth 4 times daily - before meals & nightly 420 mL 08/07/2024 1:10 PM [employer] 5 Active Cholecalciferol (vitamin D3) 1.25 MG (39369 UT) capsule Take 1 (one) capsule by mouth every 7 days 5 capsule 5 Active furosemide (Lasix) 40 MG tablet Take 1 (one) tablet by mouth once daily 30 tablet 08/07/2024 1:10 PM [employer] 5 Active Calcium Carbonate Antacid (calcium carbonate, 500 mg elemental Ca/5 mL,) 1250 MG/5ML suspension Take 10 mL by mouth 3 times daily with meals 473 mL 1 5 Active pancrelipase (Creon 24,000) 11348-44746 units capsule Take 1 (one) capsule by [...] Department Care Team Description 07/28/2024 2:19 PM [employer] - 08/07/2024 4:44 PM [employer] Hospital Encounter [facility] [address] [place] [address] Yi Grier MD Fatima, Noor E, MD Zhu, He, Chika Flores MD Sampath, Roshni, MD Hospitalist Discharge Disposition: Home or Self Care from Last 3 Months Immunizations Immunization Administration [...] medical care, and heating? Somewhat hard 07/28/2024 [facility] of Occupat ional Health - Occupational Stress [...] time in the past [address] [facility], were you homeless or living in a [facility] (including now)? No 07/28/2024 Comments Unknown Sex and Gender Information Value Date Recorded Sex Assigned at Not on file Legal Sex Female 9:40 AM CDT Gender Identity Not on file Sexual Orientation Not on file Last Filed Vital Signs Vital Sign Reading Time Taken Comments Blood Pressure 112/78 08/07/2024 2:44 PM [employer] Pulse 93 08/07/2024 2:44 PM [employer] Temperature 37.5 C (99.5 F) 08/07/2024 11:33 AM [employer] Respiratory Rate 18 08/07/2024 11:3 3 AM [employer] Oxygen Saturation 97% 08/07/2024 2:44 PM [employer] Inhaled Oxygen Concentration - - Weight 87.5 kg (192 lb 14.4 oz) 025 12:04 AM [employer] Height 165.1 cm (5' 5) 07/28/2024 4:01 PM [employer] Body Mass Index 32.1 07/28/2024 4:01 PM [employer] Plan of Treatment Health Maintenance Due Date [...] CARDIAC RHYTHM STRIP ORDER 08/08/2024 11:03 PM [employer] APHERESIS/TRANSFUSIO N ORDER 08/08/2024 11:03 PM [employer] B-TYPE NATRIURETIC PEPTIDE AM Draw 08/07/2024 1:59 AM [employer] COMPREHENSIVE METABOLIC PANEL AM Draw 08/07/2024 1:59 AM [employer] VAS BILATERAL VENOUS DUPLEX LE PENDING DISCHARGE 08/06/2024 2:30 PM [employer] Bilateral leg edema MAGNESIUM BLOOD Routine 08/06/2024 6:07 AM [employer] BASIC METABOLIC PANEL (CALCIUM TOTAL) Routine 08/06/2024 6:07 AM [employer] PHOSPHORUS BLOOD Routine 08/06/2024 6:07 AM [employer] MRI LUMBAR SPINE WO CONTRAST Routine 08/05/2024 9:48 AM [employer] Acute midline low back pain without sciatica PHOSPHORUS BLOOD Routine 08/05/2024 6:53 AM [employer] COMPREHENSIVE METABOLIC PANEL AM Draw 08/05/2024 6:53 AM [employer] MAGNESIUM BLOOD AM Draw 08/05/2024 6:53 AM [employer] CBC W AUTO DIFFERENTIAL AM Draw 08/05/2024 6:53 AM [employer] PROTEIN URINE TIMED QUANTITATIVE Routine 08/04/2024 1:55 PM [employer] URIC ACID URINE TIMED Routine 08/04/2024 1:55 PM [employer] CREATININE CLEARANCE URINE TIMED + BLOOD Routine 08/04/2024 1:55 PM [employer] CALCIUM URINE TIMED Routine 08/04/2024 1 :55 PM [employer] COMPREHENSIVE METABOLIC PANEL AM Draw 08/04/2024 6:55 AM [employer] MAGNESIUM BLOOD AM Draw 08/04/2024 6:55 AM [employer] CBC W AUTO DIFFERENTIAL AM Draw 08/04/2024 6:55 AM [employer] from Last 3 Months Results * CARDIAC RHYTHM STRIP ORDER (08/08/2024 11:03 PM [employer]) Narrative 08/08/2024 11:03 PM [employer] Ordered by an unspecified provider. us Scanned Document CARDIAC SERVICES ORDERABLES Fin al Result * APHERESIS/TRANSFUSION ORDER (08/08/2024 11:03 PM [employer]) Narrative 08/08/2024 11:03 PM [employer] Ordered by an unspecified provider. us Scanned Document NURSING - VITAL SIGNS AND ASSES SMENT Final Result * B-TYPE NATRIURETIC PEPTIDE (08/07/2024 1:59 AM [employer]) Pathologist [facility] BNP 35 <=100 pg/mL 08/07/2024 2:52 AM [facility] Blood BLOOD SPECIMEN / Unknown Venipuncture / Unknown 08/07/2024 1:59 AM [employer] 08/07/2024 2:19 AM [employer] Chika Chew MD LAB - CHEMISTRY ORDERABLES Final Result [facility] [address] [place] [address] * (ABNORMAL) COMPREHENSIVE METABOLIC PANEL (08/07/2024 1:59 AM [employer]) Only the most recent of3 resultswithin the time period is included. [facility] Glucose 97 70 - 99 mg/dL 08/07/2024 2:55 AM [facility] Sodium 136 136 - 145 mmol/L 08/07/2024 2:55 AM [facility] Potassium 3.9 3.5 - 5.1 mmol/L 08/07/2024 2:55 AM [facility] Chloride 104 98 - 107 mmol/L 08/07/2024 2:55 AM [facility] CO2 23 22 - 29 mmol/L 08/07/2024 2:55 AM [facility] Calcium 6.8(L) 8.4 - 10.4 mg/dL 08/07/2024 2:55 AM [facility] Anion Gap 9 6 - 16 mmol/L 08/07/2024 2:55 AM [facility] BUN 9 7 - 26 mg/dL 08/07/2024 2:55 AM [facility] Creatinine 0.95 0.57 - 1.11 mg/dL 08/07/2024 2:55 AM [facility] Alkaline Phosphatase 91 40 - 150 U/L 08/07/2024 2:55 AM [facility] ALT 21 0 - 55 U/L 08/07/2024 2:55 AM [employer] [facility] AST 28 5 - 34 U/L 08/07/2024 2:55 AM [employer] [facility] Protein Total 4.9(L) 6.4 - 8.3 gm/dL 08/07/2024 2:55 AM [employer] [facility] Albumin 2.1(L) 3.4 - 5.0 gm/dL 08/07/2024 2:55 AM [employer] [facility] Bilirubin Total 0.6 0.2 - 1.2 mg/dL 08/07/2024 2:55 AM [employer] [facility] eGFR by CKD-EPI 66(L) >=90 mL/min/1.7 3 m2 08/07/2024 2:55 AM [employer] [facility] Blood BLOOD SPECIMEN / Unknown Venipuncture / Unknown 08/07/2024 1:59 AM [employer] 08/07/2024 2:19 AM [employer] us Chika Chew MD LAB - CHEMISTRY ORDERABLES Final Result Performing Organization Address City/State/[facility] Co de Phone Number [facility] [address] [place] [address] * VAS Bilateral Venous Duplex Le (08/06/2024 2:30 PM [employer]) Anatomical Region Laterality Modality Lower Extremity Ultrasound 08/06/2024 1:50 PM [employer] Narrative Procedure Note Jorge Barakat MD - 08/07/2024 [facility] [address] [place] [address] Lower Extremity Venous Ultrasound Report Pat.Name: SARAHY MOORE Pat.ID: [id number] .Date: 08/06/2024 Exam Time: 1:50:00 PM Study Type:LE Venous Age: 1 1960,64Y Sex: FEMALE Sonogrphr: Binh Eldridge RVT Pat. Stat.:Inpatient Room: [facility] ICD - 9: R60.0 CPT - 4: 03585 Reason for Study: Bilateral leg edema History / Clinical: CKD, Liver cirrhosis Procedures: Lower Extremity Venous - Bilateral Race: 1 Visit ID: [id number] ++++++++++++++++++++++++++++++++++++ SUMMARY: ++++++++++++++++++++++++++++++++++++ There is no evidence [...] METABOLIC PANEL (CALCIUM TOTAL) (08/06/2024 6:07 AM [employer]) Glucose 87 70 - 99 mg/dL 08/06/2024 8:46 AM [facility] Sodium 137 136 - 145 mmol/L 08/06/2024 8:46 AM [facility] Potassium 3.0(L) 3.5 - 5.1 mmol/L 08/06/2024 8:46 AM [facility] Chloride 103 98 - 107 mmol/L 08/06/2024 8:46 AM [facility] CO2 27 22 - 29 mmol/L 08/06/2024 8:46 AM [facility] Calcium 6.7(L) 8.4 - 10.4 mg/dL 08/06/2024 8:46 AM [facility] Anion Gap 7 6 - 16 mmol/L 08/06/2024 8:46 AM [employer] [facility] BUN 7 7 - 26 mg/dL 08/06/2024 8:46 AM [employer]IC [facility] Creatinine 0.81 0.57 - 1.11 mg/dL 08/06/2024 8:46 AM [facility] eGFR by CKD-EPI 81(L) >=90 mL/min/1.7 3 m2 08/06/2024 8:46 AM [employer]IC [facility] Blood BLOOD SPECIMEN / Unknown Venipuncture / Unknown 08/06/2024 6:07 AM [employer] 08/06/2024 6:11 AM [employer] Chika Chew MD LAB - CHEMISTRY ORDERABLES Final Result Performing Organization Address [facility] de Phone Number [facility] [address] [place] [id number] * PHOSPHORUS BLOOD (08/06/2024 6:07 AM [employer]) Only the most recent of2 resultswithin the time period is included. Phosphorus 3.7 2.5 - 4.5 mg/dL 08/06/2024 6:27 AM [employer] MECH[employer]IC [facility] Blood BLOOD SPECIMEN / Unknown Venipuncture / Unknown 08/06/2024 6:07 AM [employer] MECH[employer]IC 08/06/2024 6:11 AM [employer] MECH[employer]IC us Miguel Angel Mccain MD LAB - CHEMISTRY ORDERABLES Final Result Performing Organization Address [facility] de Phone Number [facility] [address] [place] [phone] * MAGNESIUM BLOOD (08/06/2024 6:07 AM [employer]) Only the most recent of3 resultswithin the time period is included. Magnesium 1.7 1.6 - 2.6 mg/dL 08/06/2024 8:43 AM [employer]IC [facility] Blood BLOOD SPECIMEN / Unknown Venipuncture / Unknown 08/06/2024 6:07 AM [employer]IC 08/06/2024 6:11 AM [employer]IC Chika Chew MD LAB - CHEMISTRY ORDERABLES Final Result [facility] [address] [place] [phone] * MRI Lumbar Spine Wo Contrast (08/05/2024 9:48 AM [employer]IC) Anatomical Region Laterality Modality Spine Magnetic Resonan ce 08/05/2024 9:51 AM [employer] Impressions 08/05/2024 11:53 AM [employer]IC IMPRESSION: Multilevel degenerative disc and joint disease. Mild foraminal narrowing at L3-L4 and L4-L5 levels. No canal narrowing seen. Minimal superior endplate compression at T12, associated with mild marrow edema, less than 25% loss of vertical height. Edited by Tressa Phillips on 08/05/2024 10:17 AM > Interpreting Provider: Stefani Zepeda MD on 08/05/2024 11:53 AM Narrative 08/05/2024 11:53 AM [employer] MECH[employer]IC PROCEDURE: MRI LUMBAR SPINE WO CONTRAST DATE/TIME [...] Stefani Zepeda MD on 08/05/2024 11:53 AM [facility] Kalyn BERNSTEIN MR ORDERABLES Final Result * (ABNORMAL) CBC W AUTO DIFFERENTIAL (08/05/2024 6:53 AM [facility]) Only the most recent of2 resultswithin the time period is included. WBC 6.8 4.0 - 10.7 x10E9/L 08/05/2024 7:01 AM [facility] RBC Count 2.80(L) 3.90 - 5.20 x10E12/L 08/05/2024 7:01 AM [facility] Hemoglobin 8.6(L) 11.9 - 15.8 g/dL 08/05/2024 7:01 AM [facility] Hematocrit 26.3(L) 34.8 - 46.1 % 08/05/2024 7:01 AM [facility] MCV 93.9 80.0 - 98.0 fL 08/05/2024 7:01 AM [facility] MCH 30.7 26.7 - 33.6 pg 08/05/2024 7:01 AM [facility] MCHC 32.7 31.7 - 36.3 g/dL 08/05/2024 7:01 AM [facility] RDW-CV 17.6(H) 11.3 - 14.8 % 08/05/2024 7:01 AM [facility] Platelet Count 111(L) 150 - 420 x10E9/L 08/05/2024 7:01 AM [facility] MPV 10.1 7.8 - 11.4 fL 08/05/2024 7:01 AM [facility] Neutrophil % 70.0 41.0 - 74.0 % 08/05/2024 7:01 AM [facility] Lymphocyte % 13.8(L) 17.0 - 47.0 % 08/05/2024 7:01 AM [facility] Monocyte % 11.7(H) 3.0 - 11.0 % 08/05/2024 7:01 AM [facility] Eosinophil % 3.7 0.0 - 7.0 % 08/05/2024 7:01 AM [facility] Basophil % 0.4 0.0 - 1.6 % 08/05/2024 7:01 AM [facility] Immature Granulocytes % 0.4 0.0 - 1.0 % 08/05/2024 7:01 AM [employer] [facility] Neutrophil Absolute 4.76 1.60 - 7.50 x10E9/L 08/05/2024 7:01 AM [employer] [facility] Lymphocyte Absolute 0.94(L) 1.00 - 4.40 x10E9/L 08/05/2024 7:01 AM [facility] Monocyte Absolute 0.80 0.15 - 1.00 x10E9/L 08/05/2024 7:01 AM [facility] Eosinophil Absolute 0.25 0.00 - 0.60 x10E9/L 08/05/2024 7:01 AM [facility] Basophil Absolute 0.03 0.00 - 0.13 x10E9/L 08/05/2024 7:01 AM [facility] Blood BLOOD SPECIMEN / Unknown Venipuncture / Unknown 08/05/2024 6:53 AM [employer] 08/05/2024 6:57 AM [employer] us Miguel Angel Mccain MD LAB - HEMATOLOGY ORDERABLES Manisha l Result Performing Organization Address City/State/[facility] Co de Phone Number [facility] [address] [place] [address] * URIC ACID URINE TIMED (08/04/2024 1:55 PM [employer]CH[employer]IC) [facility] Uric Acid 24 Hour Urine 205.0 142.3 - 713.2 mg/24 hr 08/06/2024 11:10 AM [employer] MECHANIC [facility]) Uric Acid Urine 20.5 Not Estab. mg/dL 08/06/2024 11:10 AM [employer] MECHANIC [facility] ([facility]) Urine TIMED URINE SPECIMEN / Unknown Timed Urine Volume Measurement / Unknown 08/04/2024 1:55 PM [employer] 08/04/2024 2:02 PM [employer] Narrative [facility] ([facility]) - 08/06/2024 11:10 AM [employer]IC Performed at: [facility] [id number] Sales Representative Printing: El Sood PhD, Phone: [phone] us Pete Olmos MD LAB - URINE CHEMISTRY ORDERABLE S Final Result [facility] ([facility]) [address] [place] [address] * PROTEIN URINE TIMED QUANTITATIVE (08/04/2024 1:55 PM [employer]) Volume 24 Hour Urine 1,000 mL 08/04/2024 2:25 PM [employer] Collection Time Hours 24 hrs 08/04/2024 2:25 PM [employer] Protein 24 Hour Urine 72 <300 mg/24hr 08/04/2024 2:25 PM [employer] Protein Urine 7.2 <11.9 mg/dL 08/04/2024 2:25 PM [employer] ME[employer]IC [facility] Urine TIMED URINE SPECIMEN / Unknown Timed Urine Volume Measurement / Unknown 08/04/2024 1:55 PM [employer]IC 08/04/2024 2:02 PM [employer] Pete Olmos MD LAB - URINE CHEMISTRY ORDERABLE S Final Result Performing Organization Address City/[facility]/ZIP Co de Phone Number [facility] [address] [place] [phone] * CREATININE CLEARANCE URINE TIMED + BLOOD (08/04/2024 1:55 PM [employer]) Volume 24 Hour Urine 1,000 mL 08/04/2024 2:28 PM [employer]CH[employer] Collection Time Hours 24 hrs 08/04/2024 2:28 PM [employer] [facility] Height Inches 65 inches 08/04/2024 2:28 PM [employer] [facility] Weight in Pounds 160 pounds 08/04/2024 2:28 PM [employer] [facility] Surface Area 1.80 08/04/2024 2:28 PM [employer]CH[employer] [facility] Creatinine 0.81 0.57 - 1.11 mg/dL 08/04/2024 2:28 PM [employer] Creatinine Urine 82.74 mg/dL 08/04/2024 2:28 PM [employer] [facility] Creatinine 24 Hour Urine 827 710 - 1,650 mg/24hr 08/04/2024 2:28 PM [employer] [facility] Creatinine Clearance 68 66 - 165 mL/min/1.73 m2 08/04/2024 2:28 PM [employer] Urine TIMED URINE SPECIMEN / Unknown Timed Urine Volume Measurement / Unknown 08/04/2024 1:55 PM [employer] 08/04/2024 2:02 PM [employer] Pete Olmos MD LAB - URINE CHEMISTRY ORDERABLE S Final Result Performing Organization Address City/[facility]/ZIP Co de Phone Number [facility] [address] [place] [phone] * (ABNORMAL) CALCIUM URINE TIMED (08/04/2024 1:55 PM [employer]IC) Calcium Random Urine <2.0 Not Established mg/dL 08/04/2024 7:00 PM [facility] Collection Time Timed Urine 24 Hrs 08/04/2024 7:00 PM [facility] Calcium 24 Hour Urine <20(L) 50 - 300 mg/24 hrs 08/04/2024 7:00 PM [facility] Comment:Unable to calculate excretion rate because the analyte concentration is outside the instrument measuring range. Volume Timed Urine 1,000 mL 08/04/2024 7:00 PM [facility] Urine TIMED URINE SPECIMEN / Unknown Timed Urine Volume Measurement / Unknown 08/04/2024 1:55 PM [employer] 08/04/2024 2:02 PM [employer] Pete Olmos MD LAB - URINE CHEMISTRY ORDERABLE S Final Result Performing Organization Address City/[facility]/ZIP Co de Phone Number [facility] [address] [place] [address], [facility] [phone] from Last 3 Months Insurance [facility] Advance Directives Documents on File Type Date Recorded Patient Manager Media Expl anation Adv Directive/Living Will/POA 08/08/2024 10:51 PM Adv Directive/Living Will/POA 08/01/2024 8:23 PM Adv Directive/Living Will/POA 07/31/2024 7:48 PM * Full Code (Latest Code Status on File) Date Activated Date Inactivated Comments 07/28/2024 3:11 PM 08/07/2024 5:49 PM Care Teams Pretzel Cooker Relationship Specialty Start Date End Date Priyank Zepeda MD [address] [place] [address] PCP - General 02/23/22
--- OUTSIDE RECORDS SUMMARY | 2024-11-04 10:51 | XMS_ITS | Data Portability ---
Author Organization [facility], [address] [place] [address] Neurology ([place]) Address [address] [address] Care Team Providers Care Securities Sales Associate Name Role Phone KIERAN CALL Primary Care Provider Assessment Encounter Date Assessment Date Assessment LastModified by Organization Details LastModified Time 10/17/2023 10/17/2023 - Keep already scheduled appointment with GI -secure an appointment with hematology -follow up with your PCP if needed -Call this office with any questions or concerns [email or web address] Not available 10/17/2023 14:57:46 Plan of Treatment [...] ----- 53.3 Not Available [facility] ([facility]) - All Sites [address] [place] [address] 240, [place], [address], 06/05/2024 01:21:09 10/02/19 24 10/02/2023 PTH (para [...] . ----- 182.5 Not Available [facility] [address], [address], 06/05/2024 01:21:09 10/02/19 24 10/02/2023 phosp horus , serum or plasm a phosphorus 2 mg/dL 2.5-4. 9 low Not Available Test [facility] [address] [place], [address], 06/05/2024 01:21:08 10/02/19 24 10/02/2023 BMP, blood sodium 140 mmol/ L 136-14 5 Not Available [facility] [address], [place], [address], 06/05/2024 01:21:02 10/02/19 24 10/02/2023 BMP, blood potassium 2.9 mmol/ L 3.5-5. 1 low criti benjamin resul t(s) dial d to and read back by: vicky blanton at: 16:07 :22 10/01 by assp. ----- 2.9 Not Available [facility] [address], [place], [address], 06/05/2024 01:21:02 10/02/19 24 10/02/2023 BMP, blood chloride 110 mmol/ L 98-107 high Not Available [facility] [address], [place], [address], 06/05/2024 01:21:02 10/02/19 24 10/02/2023 BMP, blood CO2 24.9 mmol/ L 21.0-3 2.0 Not Available [facility] [address], [place], [address], 06/05/2024 01:21:02 10/02/19 24 10/02/2023 BMP, blood anion gap 5.1 mmol/ L 5.0-15 .0 Not Available [facility] [address] [facility] [address] [address], [place], [address], 06/05/2024 01:21:02 10/02/19 24 10/02/2023 BMP, blood glucose 116 mg/dL 74-106 high Not Available [place] [address], [place], [address], 06/05/2024 01:21:02 10/02/19 24 10/02/2023 BMP, blood BUN 11 mg/dL 7-18 Not Available [place] [address], [place], [address], 06/05/2024 01:21:02 10/02/19 24 10/02/2023 BMP, blood creatinine 0.91 mg/dL 0.55-1 .02 Not Available [facility] [address], [place], [address], 06/05/2024 01:21:02 10/02/19 24 10/02/2023 BMP, blood calcium 7.8 mg/dL 8.5-10 .1 low Not Available [facility] [address] [facility] [address], [place], [address], 06/05/2024 01:21:02 10/02/19 24 10/02/2023 BMP, blood eGFR 70 mL/mi n/1.7 3_M2 >90 low Not Available [place] [address] [facility] [address], [place], [address], 06/05/2024 01:21:02 10/02/19 24 10/02/2023 BMP, blood calculated osmolality 290 mOsm/ kg refer ence range not estab lishe d ----- 290 Not Available [facility] [address], [place], [address], 06/05/2024 01:21:02 10/02/19 24 10/02/2023 BMP, blood [...] mL/mi n/1.7 3 m2 ----- Not Available [facility] [address], [place], [address], 06/05/2024 01:21:02 01/18/20 24 12/07/2022 imagi ng/di agnos tic resul t No observ ation record ed. [email or web address] Not Available 01/18/2024 03:50:12 04/01/20 24 07/28/2023 [...] Available Health Note 10/16/2023 16:10:23 Imaging Results None recorded. Procedure Notes None recorded. Medical Equipment None Reported. Allergies Allergen ID Allergen Name Allergen Category Reaction Reaction Severity Criticality Documentation Date Start Date Code Code System Note Provider Name and Address Organization Details Recorded Time 437283 adhesive tape environme nt,medica tion rash Not available Not available 07/03/20232013 06208 UNK React ion: Rash; Comme nt: Adhes messi Tape React ion Date: 27 Jul 2012 ; Not Available [facility] 4 22:47:28 081812 Cipro medicatio n Not available Not available Not available 07/03/20232013 76275 3 RxNorm Comme nt: React ion Date: 01 Jan 2013 ; Not Available [facility] 4 22:47:29 900537 succinylc holine chloride medicatio n Not available Not available Not available 07/03/20232015 3565 RxNorm Not Available [facility] 4 22:47:29 Medications Name Sig Start Date Stop Date Status Note LastModified by Organization Details LastModified Time Prescription - New active Leaf Stamper: MEGHAN NIMESH (Audiology) , Sergey n Form [...] /min 123 mm[Hg] 74 mm[Hg] Tina cuello [facility] 4 14:41:31 Social History Question [...] Do You Have A Medical Power Of Storekeeper Helper? Yes [email or web address] Information not available 10/16/2023 What Was The Date Of Your Most Recent Tobacco Screening? 10/17/2023 [email or web address] Information not available 10/16/2023 What Is Your Relationship Status? Single [email or web address] Information not available 10/16/2023 Sex: Unknown Functional Status Question Answer Note LastModified by Organizat ion Details LastModified Time Do you use any [...] SNOMED-CT Code Diagnosis ICD10 Code Diagnosis Note [id number] SUSU PENNY [facility] ([place]) [address] [place] [address] 10/17/2023 14:31:01 10/18/2023 15:51:26 Hospital inpatient stay within past 30 days [id number] 106 Z76.89 Health Concerns Section Related Observation LastModified by Organization Detai ls LastModified Time None Recorded Concern Status LastModified by Organization Details LastModified Time None Recorded Advance Directives Directive Y: Payers Insurance Date Sequence Insurance Name Policy Number Policy Juares Covered Member ID Juares Member ID Guarantor Name 11/20/2023 1 [facility] - DOS ON OR AFTER 20 (MEDICAID REPLACEMENT - HMO) Louise Moore [id number] Louise Bailey Teresa 10/02/2023 1 *SELF PAY* Sh nadeem Moore [...] appointment scheduled for November 01 with GI OUTSIDE INSTALLATION MACHINIST for consultation. She is eating and drinking well. She denies n/v. YULISSA MARTINEZ, QUALITY CONTROL TECH [employer] [address] [place] [address], [id number], [facility] 10/17/2023 14:58:51 OBGyn Episode No OBEpisode recorded.
--- OUTSIDE RECORDS SUMMARY | 2024-11-04 10:51 | XMS_ITS | Clinical Summary ---
Author Organization [facility] Facility Address [address] [address] Care Team Providers Care Business Services Officer Name Role Phone Priyank Zepeda MD Primary Care Provider [phone] Allergies Active Allergy Reactions Criticality Noted Date [...] 1 mg by mouth in the morning. 08/09/19 25 Active furosemide (LASIX) 40 MG tablet Take 40 mg by mouth in the morning. 08/08/19 25 Active Cholecalciferol (Vitamin D3) 1.25 MG (27412 UT) capsule Take 50,000 Units by mouth in the morning and 50,000 Units in the evening. Active calcium carbonate EX (TUMS EX) 750 MG chewable tablet Chew 750 mg 1 (one) time each day Active pancrelipase, Slr-Nctq-Xxyt, (CREON) 12569-90833 units capsule Take 1 capsule by mouth in the morning and 1 capsule at noon and 1 capsule in the evening. Take with meals. 08/08/19 25 025 Discontinued (Discontinue d by another clinician (does not appear on AVS)) Active Problems Problem Noted Date Diagnosed Date Acidosis 05/09/2019 Chronic kidney disease stage 2 05/09/2019 Essential hypertension 05/09/2019 Primary hyperparathyroidism 05/09/2019 Encounters Date Type Department Care Team Description 10/22/2024 10:45 AM CDT Office Visit [facility] Evgeny. [address] [facility] [place] [address] Kristofer Ortiz MD Chronic kidney disease, stage 2 (mild) (Primary Dx); Hypertension; Anemia in chronic kidney disease; Secondary hyperparathyroidism of renal origin (HCC) 10/22/2024 Orders Only [facility] [address] [place] [address] Ana Duran RN 10/10/2024 Documentation Only [facility] [address] [facility] [place] [id number] Kristofer Ortiz MD from Last 3 Months [...] Sign Reading Time Taken Comments Blood Pressure 114/68 10/22/2024 10:46 AM CDT Pulse 75 10/22/2024 10:46 AM CDT Temperature 36.6 C (97.9 F) 10/22/2024 10:46 AM CDT Respiratory Rate 18 05/15/2018 11:00 AM SWITCH CREW SUPERVISOR Oxygen Saturation 99% 10/22/2024 10:46 AM CDT Inhaled Oxygen Concentration - - Weight 63 kg (139 lb) 10/22/2024 10:46 AM CDT Height 160 cm (5' 3) 10/22/2024 10:46 AM CDT Body Mass Index 24.62 10/22/2024 10:46 AM CDT Plan of Treatment Upcoming Encounters Date Type Department Care Team (Late st Contact Info) Description 04/22/2025 11:45 AM SWITCH CREW SUPERVISOR Office Visit [facility] Evgeny. [address] [facility] [address] [place] [address] Kristofer Ortiz MD [address] [facility] [address] [place] [address] Health Maintenance Due Date Last Done Comments Breast Cancer Screening 1959 Pneumococcal Vaccine: 50+ Years (1 of 2 - PCV) 1978 Colorectal Cancer Screening: Colonoscopy Discontinued 12/14/2023, 11/04/2021 Influenza Vaccine Completed 03/19/2024, , 03/06/2022, Additional history exists Hepatitis B Vaccine Aged Out No longe r eligible based on patient's age to complete this topic Insurance [facility] Advance Directives Documents on File Type Date Recorded Patient Candle Pourer Expl anation Power of Identity Access Management Architect 10/25/2021 11:10 AM Othe r - POA Power of Identity Access Management Architect 10/25/2021 11:10 AM Othe r - POA Care Teams Business Services Officer Relationship Specialty Start Date End Date Priyank Zepeda MD [address] [place] [address] PCP - General Internal Medicine 05/17/19
[2024-11-04 12:41] VITALS: BP 128/80; PULSE 68; RESP 14; O2SAT 97
== END 2024-11-04 10:05 | disposition home or self-care (01) ==
PROVIDERS: PCP Internal Medicine; Visit Provider Internal Medicine
DX: D50.9 Iron deficiency anemia, unspecified (principal)
CPT/HCPCS: 96365; 96366; J1756; J7050

== ENCOUNTER 2024-12-18 14:10 | Outpatient (CLI) | payer OTHER, SELFPAY ==
--- OUTSIDE RECORDS SUMMARY | 2024-12-18 14:17 | XMS_ITS | Encounter Summary ---
Author Organization [facility] Address [address] [address] Phone Care Team Providers Care Bottom Scrubber Name Role Phone Priyank Zepeda MD Primary Care Provider [phone] Reason for Visit * Reason Onset Date Comments Medication Management 08/13/2024 Encounter Details Date Type Department Care Team (Late st Contact Info) Description 08/13/20[facility] [address] [place] [address] Eloisa Ruiz, PT Medication Management Social History [...] on filedocumented in this encounter Care Teams Bottom Scrubber Relationship Specialty Start Date End Date Priyank Zepeda MD [address] [place] [address] PCP - General Internal Medicine 08/08/24 documented as of this encounter
--- OUTSIDE RECORDS SUMMARY | 2024-12-18 14:17 | XMS_ITS | Encounter Summary ---
Author Organization [facility] Address [address] [place] [address] Phone Care Team Providers Care Vat House Supervisor Name Role Phone Priyank Zepeda MD Primary Care Provider [phone] Encounter Details Date Type Department Care Team (Late st Contact Info) Description 09/04/2024 [facility] [address] [place] [address] Priyank Zepeda MD [address] [place] [address] Secondary hyperparathyroidism of renal origin [...] - 12.00 10(3)/mcL 09/04/2024 6:44 PM CDT [facility] RBC 3.31(L) 3.80 - 5.30 10(6)/mcL 09/04/2024 6:44 PM CDT [facility] HEMOGLOBIN (HGB) 10.2(L) 12.0 - 15.8 g/dL 09/04/2024 6:44 PM CDT [facility] HEMATOCRIT (HCT) 32.3(L) 36.0 - 47.0 % 09/04/2024 6:44 PM CDT [facility] MCV 97.6(H) 82.0 - 96.0 fL 09/04/2024 6:44 PM CDT [facility] MCH 30.8 26.0 - 34.0 pg 09/04/2024 6:44 PM CDT [facility] MCHC 31.6 31.0 - 36.0 g/dL 09/04/2024 6:44 PM CDT [facility] PLATELET COUNT 240 140 - 440 10(3)/mcL 09/04/2024 6:44 PM CDT [facility] RDW 18.8(H) 11.8 - 15.5 % 09/04/2024 6:44 PM CDT [facility] MPV 9.8 9.7 - 12.4 fL 09/04/2024 6:44 PM CDT [facility] NEUTROPHILS 75.4(H) 47.0 - 73.0 % 09/04/2024 6:44 PM CDT [facility] LYMPHOCYTES 11.9(L) 18.0 - 42.0 % 09/04/2024 6:44 PM CDT [facility] MONOCYTES 9.3 4.0 - 12.0 % 09/04/2024 6:44 PM CDT [facility] EOSINOPHILS 2.8 0.0 - 5.0 % 09/04/2024 6:44 PM CDT [facility] BASOPHILS 0.6 0.0 - 1.0 % 09/04/2024 6:44 PM CDT [facility] ABSOLUTE NEUTROPHILS 3.48 1.60 - 7.70 10(3)/mcL 09/04/2024 6:44 PM CDT [facility] ABSOLUTE LYMPHOCYTES 0.55(L) 1.30 - 3.20 10(3)/mcL 09/04/2024 6:44 PM CDT [facility] ABSOLUTE MONOCYTES 0.43 0.20 - 1.00 10(3)/mcL 09/04/2024 6:44 PM CDT [facility] ABSOLUTE EOSINOPHIL 0.13 0.00 - 0.40 10(3)/mcL 09/04/2024 6:44 PM CDT [facility] ABSOLUTE BASOPHILS 0.03 0.00 - 0.10 10(3)/mcL 09/04/2024 6:44 PM CDT [facility] NRBC PER 100 WBC 0 09/05/19 6:44 PM CDT [facility] RESULTS ARE CONSISTENT WITH PERIPHERAL SMEAR REVIEW Yes 09/04/2024 6:44 PM CDT [facility] RBC MORPHOLOGY CONSISTENT WITH INDICES Yes 09/04/2024 6:44 PM CDT [facility] Blood No Phlebotomy Charged / Unknown 09/04/2024 4:55 PM CDT 09/04/2024 6:06 PM CDT us Priyank Zepeda MD HEMATOLOGY ORDERABLES Final R esult [facility] [address] [place] [address] * (ABNORMAL) PREALBUMIN (PAB) (09/04/2024 4:55 PM CDT) Pathologist [facility] PRE ALBUMIN 13(L) 14 - 37 mg/dL 09/05/2024 6:00 PM CDT [facility] Blood No Phlebotomy Charged / Unknown 09/04/2024 4:55 PM CDT 09/04/2024 6:06 PM CDT us Priyank Zepeda MD CHEMISTRY ORDERABLES Final Re sult [facility] [address] [place] [address], * VITAMIN D, 25 HYDROXY TOTAL (09/04/2024 4:55 PM CDT) VITAMIN D, 25 HYDROX 19.0 ng/mL 09/04/2024 6:55 PM CDT [facility] Blood No Phlebotomy Charged / Unknown 09/04/2024 4:55 PM CDT 09/04/2024 6:06 PM CDT Narrative [facility] - 09/04/2024 6:55 PM CDT Published reference ranges for Vitamin D vary depending on time and place and method of testing, and on patient's age, sex, ethnicity and levels of other measured analytes such as parathormone, calcium and phosphorus. The result should be evaluated in conjunction with clinical findings and suspicions. Tram of Medicine and Endocrine Clinical Practice Guidelines: Status Vitamin D levels (ng/mL) Deficient <=20 At risk of inadequacy 21-29 Sufficient 30-100 Centers of Disease Control and Prevention Guidelines: Status Vitamin D levels (ng/mL) Deficient <13 At risk of inadequacy 13-19 Sufficient 20-50 Possibly harmful >50 References: Tram of Medicine, 2010 Dietary reference intakes for calcium and vitamin D. [place]: The National Academies Press. Yo M, Blayne N, Sara LEES, et al., Evaluation, treatment, and prevention of Vitamin D deficiency: an Endocrinology Clinical Practice Guideline. JCEM 2011 96: 7 6416-3298. Kiet A, Dario C, Yemi D, et al., Vitamin D Status: [place], , IAHS data brief, no. 59, MD [place]: National Center for Health Statistics. 2011. us Priyank Zepeda MD CHEMISTRY ORDERABLES Final Re sult [facility] [address] [place] [address] * (ABNORMAL) THYROID STIMULATING HORMONE (TSH) (09/04/2024 4:55 PM CDT) TSH 9.593(H) 0.300 - 5.000 mIU/L 09/04/2024 6:56 PM CDT [facility] Blood No Phlebotomy Charged / Unknown 09/04/2024 4:55 PM CDT 09/04/2024 6:06 PM CDT us Priyank Zepeda MD CHEMISTRY ORDERABLES Final Re sult [facility] [address] [place] [address] * (ABNORMAL) PHOSPHORUS (PO4) (09/04/2024 4:55 PM CDT) PHOSPHORUS 2.3(L) 2.5 - 4.5 mg/dL 09/04/2024 6:39 PM CDT [facility] Blood No Phlebotomy Charged / Unknown 09/04/2024 4:55 PM CDT 09/04/2024 6:06 PM CDT us Priyank Zepeda MD CHEMISTRY ORDERABLES Final Re sult Performing Organization Address City/[facility]/ZIP Co de Phone Number [facility] [address] [place] [address] * (ABNORMAL) CMP (COMPREHENSIVE METABOLIC PANEL) (09/04/2024 4:55 PM CDT) SODIUM 143 136 - 145 mmol/L 09/04/2024 6:39 PM CDT [facility] POTASSIUM 4.0 3.5 - 5.1 mmol/L 09/04/2024 6:39 PM CDT [facility] CHLORIDE 114(H) 98 - 107 mmol/L 09/04/2024 6:39 PM CDT [facility] CO2, VENOUS 23 22 - 30 mmol/L 09/04/2024 6:39 PM CDT [facility] ANION GAP 10.0 <18.0 mmol/L 09/04/2024 6:39 PM CDT [facility] GLUCOSE 87 70 - 99 mg/dL 09/04/2024 6:39 PM CDT [facility] BUN 10 10 - 20 mg/dL 09/04/2024 6:39 PM CDT [facility] CREATININE, BLOOD 0.77 0.60 - 1.00 mg/dL 09/04/2024 6:39 PM [facility] BUN/CREATININE RATIO 13 12 - 20 ratio 09/04/2024 6:39 PM [facility] TOTAL PROTEIN 6.8 6.0 - 8.0 g/dL 09/04/2024 6:39 PM [facility] ALBUMIN 2.7(L) 3.5 - 5.0 g/dL 09/04/2024 6:39 PM [facility] A/G RATIO 0.7(L) 1.0 - 2.2 09/04/2024 6:39 PM [facility] CALCIUM 8.2(L) 8.7 - 10.5 mg/dL 09/04/2024 6:39 PM [facility] T BILI 0.4 0.2 - 1.2 mg/dL 09/04/2024 6:39 PM [facility] SGOT (AST) 52(H) <43 U/L 09/04/2024 6:39 PM [facility] SGPT (ALT) 37 <56 U/L 09/04/2024 6:39 PM [facility] ALKALINE PHOSPHATASE 137 40 - 150 U/L 09/04/2024 6:39 PM [facility] GFR, ESTIMATED >60 >=60 09/04/2024 6:39 PM [facility] Comment: Creatinine Clearance is the preferred criteria for selecting drug dose adjustments in renally impaired patients. The GFR is provided as additional pertinent clinical information. GFR is reported in mL/min/1.73 sq m. Calculation based on the Chronic Kidney Disease Epidemiology Collaboration (CKD- EPI) equation refit without adjustment for race. GFR, EST. >60 >=60 025 6:39 PM [facility] GFR, EST. NONAFRICAN >60 >=60 09/04/2024 6:39 PM [facility] Blood No Phlebotomy Charged / Unknown 09/04/2024 4:55 PM CDT 09/04/2024 6:06 PM CDT us Priyank Zepeda MD CHEMISTRY ORDERABLES Final Re sult [facility] [address] [place] [address] documented in this encounter Visit Diagnoses Diagnosis Secondary hyperparathyroidism of renal origin (HCC) Secondary hyperparathyroidism (of renal origin) Vitamin D deficiency, unspecified Hypothyroidism, unspecified documented in this encounter Care Teams Vat House Supervisor Relationship Specialty Start Date End Date Priyank Zepeda MD [address] [place] [address] PCP - General Internal Medicine 08/08/24 documented as of this encounter
--- OUTSIDE RECORDS SUMMARY | 2024-12-18 14:17 | XMS_ITS | Clinical Summary ---
Author Organization [facility] Address [address] [address] Phone Care Team Providers Care Art Objects Salesperson Name Role Phone Priyank Zepeda MD Primary Care Provider [phone] Allergies No known active allergies Medications calcium [...] route 2 times per day Active Pancrelipase, Eww-Qpqx-Qzvg, (CREON PO) Take 24,000 Units by mouth 3 times daily (with meals). Take 1 capsule by mouth 3 times daily with meals Active spironolactone (ALDACTONE) 25 MG Tablet Take 25 mg by mouth daily. Active BETA CAROTENE PO Take 7,500 mcg by mouth daily. Active Cyanocobalamin (VITAMIN B12 PO) Take 2,500 mcg by mouth daily. Active pancrelipase, lipase-protease- amylase, (Creon) [address]-[address] Particles Take 1 Capsule by mouth 3 times daily. 3 times daily with meals Active triamcinolone (KENALOG) 0.1 % Cream Apply 1 Application 2 times daily. Apply a thin layer to the affected areas (bilateral feet). Active albuterol (ProAir HFA) 108 (90 Base) MCG/ACT Aerosol Solution take 2 Puffs by inhalation every 4 hours as needed for Wheezing. Active Social History Tobacco Use Types Packs/Day Years [...] Cervical Cancer Screening (CCS) 1989 HPV/Cotest 1989 Cologuard 2004 Colonoscopy 2004 Colorectal Cancer Screening 2004 Immunochemical Fecal Occult Blood 2004 Mammogram 11/18/2021 11/18/2020, 11/03, 11/01/2019 SARS-COV-2 Immunization ( season) 2024 03/19/2024, 03/27/2023, 03/06/2022, Additional history exists Influenza Immunization (#1) 02/03/202503/05, 03/27/2023, 03/06/2022, Additional history exists TdaP Immunization Completed 12/20/2015 Respiratory Syncytial Virus (RSV) Immunization (Adult) Completed 04/17/2023 Zoster Immunization Completed 10/09/2023, Pneumococcal Immunization (50+ years) Completed 03/19/2024 Hepatitis B Immunization Aged Out No longer eligible based on patient's age to complete this topic Human Papillomavirus (HPV) Immunization Aged Out No longer eligible based on patient's age to complete this topic Meningococcal Immunization (ACWY) Aged Out No longer eligible based on patient's age to complete this topic Rotavirus Immunization Aged Out No lo nger eligible based on patient's age to complete this topic Insurance MEDICAID [employer] Advance Directives Documents on File Type Date Recorded Patient Educational Assistant Expl anation Power of Vulnerability Researcher for Health Care 08/26/2024 9:18 AM POA-HC Power of Vulnerability Researcher for Health Care 08/26/2024 9:18 AM POA-HC Power of Vulnerability Researcher for Health Care 08/26/2024 9:13 AM POA-HC Power of Vulnerability Researcher for Health Care 08/26/2024 9:08 AM POA-HC Power of Vulnerability Researcher for Health Care 08/14/2024 12:10 PM POA HC 07/30/2024 * Full Code (Latest Code Status on File) Date Activated Date Inactivated Comments 08/13/2024 10:26 PM Care Teams Art Objects Salesperson Relationship Specialty Start Date End Date Priyank Zepeda MD [address] [place] [address] PCP - General Internal Medicine 08/08/24
--- OUTSIDE RECORDS SUMMARY | 2024-12-18 14:17 | XMS_ITS | Clinical Summary ---
Author Organization [facility] Facility Address [address] [address] Care Team Providers Care Metal Spraying Machine Operator Name Role Phone Priyank Zepeda MD Primary Care Provider [phone] Allergies Active Allergy Reactions Criticality Noted Date [...] by mouth in the morning. 5 Active Cholecalciferol (Vitamin D3) 1.25 MG (35581 UT) capsule Take 50,000 Units by mouth in the morning and 50,000 Units in the evening. Active calcium carbonate EX (TUMS EX) 750 MG chewable tablet Chew 750 mg 1 (one) time each day Active Active Problems Problem Noted Date Diagnosed Date Acidosis 05/09/2019 Chronic kidney disease stage 2 05/09/2019 Essential hypertension 05/09/2019 Primary hyperparathyroidism 05/09/2019 Encounters Date Type Department Care Team Description 10/22/2024 10:45 AM CDT Office Visit [facility] [address] [place] [address] Kristofer Ortiz MD Chronic kidney disease, stage 2 (mild) (Primary Dx); Hypertension; Anemia in chronic kidney disease; Secondary hyperparathyroidism of renal origin (HCC) 10/22/2024 Orders Only [facility] [address] [place] [address] Ana Duran RN 10/10/2024 Documentation Only [facility] [address] [place] [address] Kristofer Ortiz MD from Last 3 [...] CDT Respiratory Rate 18 05/15/2018 11:00 AM BLOCKER METAL BASE Oxygen Saturation 99% 10/22/2024 10:46 AM CDT Inhaled Oxygen Concentration - - Weight 63 kg (139 lb) 10/22/2024 10:46 AM CDT Height 160 cm (5' 3) 10/22/2024 10:46 AM CDT Body Mass Index 24.62 10/22/2024 10:46 AM CDT Plan of Treatment Upcoming Encounters Date Type Department Care Team (Late st Contact Info) Description 04/22/2025 11:45 AM BLOCKER METAL BASE Office Visit [facility] [address] [place] [address] Kristofer Ortiz MD [address] [place] [address] Health Maintenance Due Date Last Done Comments Breast Cancer Screening 1959 Pneumococcal Vaccine: 50+ Years (1 of 2 - PCV) 1978 Influenza Vaccine (#1) 2025 , 03/27/2023, 03/06/2022, Additional history exists Colorectal Cancer Screening: Colonoscopy Discontinued 12/14/2023, 11/04/2021 Hepatitis B Vaccine Aged Out No longe r eligible based on patient's age to complete this topic Insurance [employer] Advance Directives Documents on File Type Date Recorded Patient Right Of Way Appraiser Expl anation Power of Local Area Network Systems Adminstrator 10/25/2021 11:10 AM Othe r - POA Power of Local Area Network Systems Adminstrator 10/25/2021 11:10 AM Othe r - POA Care Teams Metal Spraying Machine Operator Relationship Specialty Start Date End Date Priyank Zepeda MD [address] [place] [address] PCP - General Internal Medicine 05/17/19
--- OUTSIDE RECORDS SUMMARY | 2024-12-18 14:17 | XMS_ITS | Encounter Summary ---
Author Organization [facility] Address [address] [place] [address] Phone Care Team Providers Care Invasive Cardiovascular Technologist Name Role Phone Priyank Zepeda MD Primary Care Provider [phone] Reason for Visit * Reason Onset Date Comments Medication Management 08/16/2024 Encounter Details Date Type Department Care Team (Late st Contact Info) Description 08/16/2024 [facility] [address] [place] [address] Eloisa Ruiz, PT Medication Management Social History [...] [facility] patient was observation at [facility] for low potassium from /08/15/24. A -changes [...] on filedocumented in this encounter Care Teams Invasive Cardiovascular Technologist Relationship Specialty Start Date End Date Priyank Zepeda MD [address] [place] [address] PCP - General Internal Medicine 08/08/24 documented as of this encounter
--- OUTSIDE RECORDS SUMMARY | 2024-12-18 14:17 | XMS_ITS | Clinical Summary ---
Author Organization [facility] Address [address] [place] [address] Care Team Providers Care Recycling Sorter Name Role Phone Gayla Villar Primary Care Provider [phone] Social History Tobacco Use Types Packs/Day Years Used Date Smoking Tobacco: Never Assessed Comments Unknown Sex and Gender Information Value Date Recorded Sex Assigned at Not on file Legal Sex Female 4:22 PM CLAY CARMAN Gender Identity Not on file Sexual Orientation [...] VACCINE (2023- season) 2024 INFLUENZA VACCINE (#1) 2025 Adult RSV VACCINE (1 - 1-dose 75+ series) 2034 Insurance [place] Care Teams Recycling Sorter Relationship Specialty Start Date End Date Gayla Villar [address] [place] [address] PCP - General 03/11/02
--- OUTSIDE RECORDS SUMMARY | 2024-12-18 14:17 | XMS_ITS | Encounter Summary ---
Author Organization [facility] Address [address] [place] [address] Phone Care Team Providers Care Electrical Accessories Ii Assembler Name Role Phone Priyank Zepeda MD Primary Care Provider [phone] Encounter Details Date Type Department Care Team (Late Contact Info) Description 01/03/2020 Orders Only [facility] [address] [place] [address] Kristofer Ortiz MD [address] [place] [address] Chronic kidney disease stage 3 [...] (Late Contact Info) Description 04/22/2025 11:45 AM VP CARE MANAGEMENT Office Visit [facility] [address] [place] [address] Kristofer Ortiz MD [address] [place] [address] [address] documented as of this encounter Visit Diagnoses Diagnosis Chronic kidney disease stage 3 (HCC) documented in this encounter Care Teams Electrical Accessories Ii Assembler Relationship Specialty Start Date End Date Priyank Zepeda MD [address] [place] [address] PCP - General Internal Medicine 05/17/19 documented as of this encounter
--- OUTSIDE RECORDS SUMMARY | 2024-12-18 14:17 | XMS_ITS | Clinical Summary ---
Author Organization [facility] Address [address] [place] [address] Care Team Providers Care Cooker Mechanic Name Role Phone Priyank Zepeda MD Primary Care Provider [phone] Allergies Active Allergy Reactions Criticality Noted Date [...] Packs/Day Years Used Date Smoking Tobacco: Never [facility] [employer] Answer Date Recorded In the past 12 months has e [employer], [employer], oil, or water [employer] threatened to shut off services in your [...] were you homeless or living in a alf (including now)? No 11/17/2023 Comments Unknown Sex [...] A M CDT Height 165.1 cm (5' 5) 11/17/2023 12:41 AM CDT Body Mass Index 30.16 11/17/2023 12:41 AM CDT Plan of Treatment Health Maintenance Due Date Last Done Comments Hepatitis C 1977 Pneumococcal Vaccine: 50+ Years (1 of 1 - PCV) 2009 Colorectal Cancer Screening FIT/FOBT (1 Year) 08/06/2022 08/06/2021 Mammogram Screening 11/18/2022 11/18/2020, Dexa Scan (General) 2024 COVID-19 Vaccine ( season) 2024 03/19/2024, 03/27/2023, 03/06/2022, Additional history exists DTaP, Tdap and Td Vaccines (2 - [...] 1:27 AM 10/02/2023 3:59 PM Care Teams Cooker Mechanic Relationship Specialty Start Date End Date Priyank Zepeda MD [address] [place] [address] PCP - General INTERNAL MEDICINE 09/19/19
--- OUTSIDE RECORDS SUMMARY | 2024-12-18 14:17 | XMS_ITS | Encounter Summary ---
Author Organization [facility] Address [address] [place] [address] Phone Care Team Providers Care Staffing Recruiter Name Role Phone Priyank Zepeda MD Primary Care Provider [phone] Encounter Details Date Type Department Care Team (Late Contact Info) Description 12/06/2019 Orders Only [facility] [address] [place] [address] Kristofer Ortiz MD [address] [place] [address] Chronic kidney disease stage 3 [...] (Late Contact Info) Description 04/22/2025 11:45 AM REGENERATION OPERATOR Office Visit [facility] [address] [place] [address] Kristofer Ortiz MD [address] [place] [address] [address] documented as of this encounter Visit Diagnoses Diagnosis Chronic kidney disease stage 3 (HCC) documented in this encounter Care Teams Staffing Recruiter Relationship Specialty Start Date End Date Priyank Zepeda MD [address] [place] [address] PCP - General Internal Medicine 05/17/19 documented as of this encounter
--- OUTSIDE RECORDS SUMMARY | 2024-12-18 14:17 | XMS_ITS | Clinical Summary ---
Author Organization [facility] Address [address] [place] [address] Care Team Providers Care Shift Manager Name Role Phone Priyank Zepeda MD Primary Care Provider [phone] Source Comments [facility],non-owned Affiliates and Associated Physician Practices is amultiple site organization consisting of ambulatory clinics and hospital sitesin [place], [place] and [place]. This disclosure is being madepursuant to the Care Everywhere program and may not contain all information available regarding this patient. Last updated 18.[facility] [employer] Allergies Active Allergy Reactions Criticality Noted Date [...] once daily 42 Each 08/07/2024 1:10 PM TYPING ELEMENT MACHINE OPERATOR 5 Active ferrous sulfate 325 (65 FE) MG tablet Take 1 (one) tablet by mouth once daily after lunch 30 tablet 08/07/2024 1:10 PM TYPING ELEMENT MACHINE OPERATOR 5 Active folic acid (Folvite) 1 MG tablet Take 1 (one) tablet by mouth once daily 30 tablet 08/07/2024 1:10 PM TYPING ELEMENT MACHINE OPERATOR 5 Active pantoprazole EC (Protonix) 40 MG tablet Take 1 (one) tablet by mouth 2 times daily, before breakfast and supper 60 tablet 08/07/2024 1:10 PM TYPING ELEMENT MACHINE OPERATOR 5 Active sucralfate (Carafate) 1 GM/10ML suspension Take 10 mL by mouth 4 times daily - before meals & nightly 420 mL 08/07/2024 1:10 PM TYPING ELEMENT MACHINE OPERATOR 5 Active Cholecalciferol (vitamin D3) 1.25 MG (39865 UT) capsule Take 1 (one) capsule by mouth every 7 days 5 capsule 5 Active furosemide (Lasix) 40 MG tablet Take 1 (one) tablet by mouth once daily 30 tablet 08/07/2024 1:10 PM TYPING ELEMENT MACHINE OPERATOR 5 Active Calcium Carbonate Antacid (calcium carbonate, 500 mg elemental Ca/5 mL,) 1250 MG/5ML suspension Take 10 mL by mouth 3 times daily with meals 473 mL 1 5 Active pancrelipase (Creon 24,000) [address] units capsule Take 1 (one) capsule by [...] Gastrointestinal hemorrhage with melena 07/28/19 25 Immunizations Immunization Administration Dates Next Due COVID [...] medical care, and heating? Somewhat hard 07/28/2024 [facility] of Occupat ional Health - Occupational Stress [...] any time in the past 12 m [facility], were you homeless or living in a group home (including now)? No 07/28/2024 Comments Unknown Sex and Gender Information Value Date Recorded Sex Assigned at Not on file Legal Sex Female 9:40 AM CDT Gender Identity Not on file Sexual Orientation Not on file Last Filed Vital Signs Vital Sign Reading Time Taken Comments Blood Pressure 112/78 08/07/2024 2:44 PM TYPING ELEMENT MACHINE OPERATOR Pulse 93 08/07/2024 2:44 PM TYPING ELEMENT MACHINE OPERATOR Temperature 37.5 C (99.5 F) 08/07/2024 11:33 AM TYPING ELEMENT MACHINE OPERATOR Respiratory Rate 18 08/07/2024 11:3 3 AM TYPING ELEMENT MACHINE OPERATOR Oxygen Saturation 97% 08/07/2024 2:44 PM TYPING ELEMENT MACHINE OPERATOR Inhaled Oxygen Concentration - - Weight 87.5 kg (192 lb 14.4 oz) 025 12:04 AM TYPING ELEMENT MACHINE OPERATOR Height 165.1 cm (5' 5) 07/28/2024 4:01 PM TYPING ELEMENT MACHINE OPERATOR Body Mass Index 32.1 07/28/2024 4:01 PM TYPING ELEMENT MACHINE OPERATOR Plan of Treatment Health Maintenance Due Date Last Done Comments BONE DENSITY TESTING 1959 COLOGUARD (AGES 45-75) - COLON CA SCREENING 1959 CT COLONOGRAPHY - COLON CA SCREENING 1959 FIT - COLON CA SCREENING 1959 FLEX SIG - COLON CA SCREENING 1959 LIPID TESTING 1959 HIV SCREENING 1974 HEPATITIS C SCREENING 06/21/1977 DTAP/TDAP/TD VACCINES (1 - Tdap) 1978 PAP SMEAR 1980 PNEUMOCOCCAL VACCINE 50+ (1 of 1 - PCV) 2009 Respiratory Syncytial Virus (RSV) Vaccine Pt: or over 60 yrs (1 - Risk 60-74 years 1-dose series) 2019 MAMMOGRAM 11/18/2022 11/18/2020, 11/03, 11/01/2019 DEPRESSION SCREENING 06/05/2024 COVID-19 VACCINE ( season) 2024 03/19/2024, 03/27/2023, 03/06/2022, Additional history exists INFLUENZA VACCINE (#1) 2025 , 03/27/2023, 03/06/2022, Additional history exists COLON MONITORING 12/13/2033 12/14/2023 COLONOSCOPY - COLON CA SCREENING 12/13/2033 12/14/2023 Colorectal Cancer Screening 12/13/2033 ZOSTER VACCINE Completed 10/09/2023, 04/17/2023 HEPATITIS B VACCINE Aged Out No longe [...] patient's age to complete this topic Insurance [facility] Advance Directives Documents on File Type Date Recorded Patient Banquet Stewardess Expl anation Adv Directive/Living Will/POA 08/08/2024 10:51 PM Adv Directive/Living Will/POA 08/01/2024 8:23 PM Adv Directive/Living Will/POA 07/31/2024 7:48 PM * Full Code (Latest Code Status on File) Date Activated Date Inactivated Comments 07/28/2024 3:11 PM 08/07/2024 5:49 PM Care Teams Shift Manager Relationship Specialty Start Date End Date Priyank Zepeda MD [address] [place] [address] PCP - General 02/23/22
--- OUTSIDE RECORDS SUMMARY | 2024-12-18 14:17 | XMS_ITS | Data Portability ---
Author Organization [facility], [address] [facility] Address [address] [place] [address] Care Team Providers Care Reed Fixer Name Role Phone KIERAN CALL Primary Care Provider [phone] Assessment Encounter Date Assessment Date Assessment LastModified by Organization Details LastModified Time 10/17/2023 10/17/2023 - Keep already scheduled appointment with GI -secure an appointment with hematology -follow up with your PCP if needed -Call this office with any questions or concerns [email or web address] Not available 10/17/2023 14:57:46 Plan of Treatment [...] city possi ble) ----- 53.3 Not Available [facility] - All Sites [address], [place], [address], 06/05/2024 01:21:09 10/02/19 24 10/02/2023 PTH (para [...] anni rable . ----- 182.5 Not Available [facility] [address], [address], 06/05/2024 01:21:09 10/02/19 24 10/02/2023 phosp horus , serum or plasm a phosphorus 2 mg/dL 2.5-4. 9 low Not Available Test [facility] [address] [place], [address], 06/05/2024 01:21:08 10/02/19 24 10/02/2023 BMP, blood sodium 140 mmol/ L 136-14 5 Not Available [facility] [address], [place], [address], 06/05/2024 01:21:02 10/02/19 24 10/02/2023 BMP, blood potassium 2.9 mmol/ L 3.5-5. 1 low criti benjamin resul t(s) dial d to and read back by: vicky blanton at: 16:07 :22 10/01 by assp. ----- 2.9 Not Available [facility] [address], [place], [address], 06/05/2024 01:21:02 10/02/19 24 10/02/2023 BMP, blood chloride 110 mmol/ L 98-107 high Not Available [facility] [address], [place], [address], 06/05/2024 01:21:02 10/02/19 24 10/02/2023 BMP, blood CO2 24.9 mmol/ L 21.0-3 2.0 Not Available [facility] [address], [place], [address], 06/05/2024 01:21:02 10/02/19 24 10/02/2023 BMP, blood anion gap 5.1 mmol/ L 5.0-15 .0 Not Available [facility] [address], [place], [address], 06/05/2024 01:21:02 10/02/19 24 10/02/2023 BMP, blood glucose 116 mg/dL 74-106 high Not Available [facility] [address], [place], [address], 06/05/2024 01:21:02 10/02/19 24 10/02/2023 BMP, blood BUN 11 mg/dL 7-18 Not Available [facility] [address], [place], [address], 06/05/2024 01:21:02 10/02/19 24 10/02/2023 BMP, blood creatinine 0.91 mg/dL 0.55-1 .02 Not Available [facility] [address], [place], [address], 06/05/2024 01:21:02 10/02/19 24 10/02/2023 BMP, blood calcium 7.8 mg/dL 8.5-10 .1 low Not Available [facility] [address], [place], [address], 06/05/2024 01:21:02 10/02/19 24 10/02/2023 BMP, blood eGFR 70 mL/mi n/1.7 3_M2 >90 low Not Available [facility] [address] [place], [address], 06/05/2024 01:21:02 10/02/19 24 10/02/2023 BMP, blood calculated osmolality 290 mOsm/ kg refer ence range not estab lishe d ----- 290 Not Available [facility] [address], [place], [address], 06/05/2024 01:21:02 10/02/19 24 10/02/2023 BMP, blood GFR notes GFR refere nces: the estim ated GFR IS calcu lated using the 2020 CKD-e pi equat ion. the follo wing categ ories for gradi ng renal funct ion are recom bairon d by the inter natio [facility] ty of nephr ology (kdig o [...] mL/mi n/1.7 3 m2 ----- Not Available [facility] [address], [place], [address], 06/05/2024 01:21:02 01/18/20 24 12/07/2022 imagi ng/di agnos tic resul t No observ ation record ed. [email or web address] Not Available 01/18/2024 03:50:12 04/01/20 24 07/28/2023 imagi ng/di agnos tic resul t No observ ation record ed. [email or web address] Not Available 22:51:05 10/02/19 25 11/18/2020 imagi ng/di agnos tic resul t No observ ation record ed. [email or web address] Not Available 03:58:39 12/06/19 25 09/11/2017 imagi ng/di agnos tic resul t No observ ation record ed. [email or web address] Not Available 0 12/05/2024 23:50:00 12/06/19 25 09/17/2018 imagi ng/di agnos tic resul t No observ ation record ed. [email or web address] Not Available 0 12/05/2024 23:50:02 Result Notes None recorded. Procedures Surgical History [...] Name and Address Organization Details Recorded Time 945137 adhesive tape environme nt,medica tion rash Not available Not available 07/03/20232013 34281 UNK React ion: Rash; Comme nt: Adhes messi Tape React ion Date: 27 Jul 2012 ; Not Available [facility] 22:47:28 894150 Cipro medicatio n Not available Not available Not available 07/03/20232013 50893 3 RxNorm Comme nt: React ion Date: 01 Jan 2013 ; Not Available [facility] 22:47:29 535285 succinylc holine chloride medicatio n Not available Not available Not available 07/03/20232015 3565 RxNorm Not Available [facility] 4 22:47:29 Medications Name Sig Start Date Stop Date Status Note LastModified by Organization Details LastModified Time Prescription - New active Pipeline Integrity Engineer: ELENAELLISMariama NIMESH (Audiology) , Winnieesavel n Form Not Available Not Available Not Available Vitals Date Recorded Body height Oxygen saturation Oxygen saturation in Arterial blood by Pulse oximetry Heart rate Body temperature Respiratory rate Systolic And Diastolic Provider Name and Address Organization Details Last Updated DateTime 166.37 cm 97 % 97 % 64 /min 97.7 [degF] 18 /min 123/74 mm[Hg] Tina cuello [facility] 14:41:31 Social History Question Answer Notes [...] Do You Have A Medical Power Of Traffic Line Painter? Yes [email or web address] Information not available 10/16/2023 What [...] SNOMED-CT Code Diagnosis ICD10 Code Diagnosis Note [id number] [facility] [address] [place] [address] 10/17/2023 14:31:01 10/18/2023 15:51:26 Hospital inpatient stay within past 30 days [id number] 106 Z76.89 Health Concerns Section Related Observation LastModified by Organization Detai ls LastModified Time None Recorded Concern Status LastModified by Organization Details LastModified Time None Recorded Advance Directives Directive Y: Payers Insurance Date Sequence Insurance Name Policy Number Policy Juares Covered Member ID Juares Member ID Guarantor Name 11/20/2023 1 [facility] - DOS ON OR AFTER 20 (MEDICAID REPLACEMENT - HMO) Louise Moore [id number] Louise Moore 10/02/2023 1 *SELF PAY* Sh [...] appointment scheduled for November 01 with GI PARTY PLAN DEALER for consultation. She is eating and drinking well. She denies n/v. YULISSA MARTINEZ, MULTIMED[employer] ARTIST-C [address] [place] [address], [id number], [facility] 10/17/2023 14:58:51 OBGyn Episode No OBEpisode recorded.
--- OUTSIDE RECORDS SUMMARY | 2024-12-18 14:17 | XMS_ITS ---
Author Organization Unknown Address [address] [place] [address] [phone] Phone Care Team Providers Care Bending Roll Hand Name Role Phone GARFIELD Ashby Attending Unavailable [...] em Smoking History Never smoker (Never Smoked) 220544217 SNOMED CT Sex Female Vital Signs Vital Sign Value Unit [place] Value [place] Unit Date/Time Recent/Initial? Code Code System Body Mass Index 30.45 kg/m2 11/13/2023 14:43 Initial 91827 -5 INC Systolic Blood Pressure 136 mm[Hg] 12/14/2023 08:17 Initial 8480- 6 LOINC Diastolic Blood Pressure 78 mm[Hg] 12/14/2023 08:17 Initial 8462- 4 INC Body Surface Area 1.95 m2 11/13/2023 14:43 Initial 3140- 1 LOINC Height 165.100 0 cm 65.00 in 11/13/2023 14:43 Initial 8302- 2 INC O2 Saturation 99 % 2023 08:17 Initial 42325 -5 INC Pulse 57.0 /min 12/14/2023 08:17 Initial 8867- 4 LOINC Respiration 20 /min 12/14/19 08:17 Initial 9279- 1 LOINC Temperature 36.2 Kait 97.1 F 12/14/19 24 08:17 Initial 8310- 5 LOINC Weight 83.01 kg 183.00 lbs 11/13/2023 14:43 Initial 68716 -[address] [facility] Medications Medication Start Date End Date Route Frequency Dose Code Code System Medication Instructions Home Meds Vitamin B12 1000 MCG Sublingual Tablet 12/14/2023 Unknown SUBLINGUAL ONCE A DAY [address] 1000 MCG SUBLINGUAL ONCE A DAY Tums Extra Strength 750 MG Oral Tablet, Chewable 12/14/2023 Unknown ORAL NEEDED 750 MG 2642435 RxNorm TAKE 750 MG ORAL NEEDED Amitriptyline 10MG Oral Tablet 12/14/2023 Unknown ORAL TWICE A DAY 10 MILLIGRA MS 554147 RxNorm TAKE 10 MILLIGRAMS ORAL TWICE A DAY Calcitriol 0.5MCG Oral Capsule, Liquid Filled 12/14/2023 Unknown ORAL TWICE A DAY 2 CAPSULE 296545 RxNorm TAKE 2 CAPSULE ORAL TWICE A DAY Calcium Citrate Powder 12/14/[address]TE NOT APPLICABLE 1 unit(s) RxNorm 1 EACH ROUTE NOT APPLICABLE Eliquis 5MG Oral Tablet 12/14/2023 12/14/19 24 ORAL TWICE A DAY 5 MILLIGRA MS 1158409 RxNorm TAKE 5 MILLIGRAMS ORAL TWICE A DAY FLUoxetine 20MG/5ML Oral Solution 12/14/2023 Unknown ORAL TWICE A DAY 114324 RxNorm TAKE mL ORAL TWICE A DAY Iron 325MG Oral Tablet 12/14/2023 Unknown ORAL THREE TIMES A DAY 325 MILLIGRA MS 060860 RxNorm TAKE 325 MILLIGRAMS ORAL THREE TIMES A DAY Levothyroxine 125MCG Oral Tablet 12/14/2023 Unknown ORAL ONCE A DAY 0.5 TABLET 892654 RxNorm TAKE 0.5 TABLET ORAL ONCE A DAY Loratadine 10MG Oral Tablet 12/14/2023 Unknown ORAL NEEDED 10 MILLIGRA MS 494472 RxNorm TAKE 10 MILLIGRAMS ORAL NEEDED Metoprolol Succinate 50MG Oral Tablet, Extended Release 12/14/2023 Unknown ORAL ONCE A DAY 50 MILLIGRA MS 446036 RxNorm TAKE 50 MILLIGRAMS ORAL ONCE A DAY Potassium Chloride 20MEQ Oral Tablet, Extended Release 12/14/2023 Unknown ORAL TWICE A DAY 20 MEQ 6657617 RxNorm TAKE 20 MEQ ORAL TWICE A DAY Sodium Bicarbonate 650MG Oral Tablet 12/14/2023 Unknown ORAL THREE TIMES A DAY 650 MILLIGRA MS 054896 RxNorm TAKE 650 MILLIGRAMS ORAL THREE TIMES A DAY Tab-A-Ezio [id number]-[id number] U-6MCG Oral Tablet 12/14/2023 Unknown ORAL ONCE A DAY 1 unit(s) 911736 RxNorm TAKE 1 EACH ORAL ONCE A [...] Code Syste m Vocal cord nodule completed 91921468 SNOMEDC T Fracture of tibia completed 96225375 SNOMEDC T Volvulus completed 6605203 SNOMEDCT APPENDECTOMY completed 03441236 SNOMEDCT Removal of kidney stone completed 9526208 S NOMEDCT Anesthesia for lower intesti nal endoscopic procedures, endoscope introduce 12/14/2023 completed 69777 CPT Gastric bypass completed 843729267 SNOMEDCT History of parathyroidectomy completed 9194995 90957236 SNOMEDCT Colonoscopy, flexible; with biopsy, single or multiple 12/14/2023 completed 70095 CPT Problems Problem Start Date Resolved Date Status Code Code System CHRONIC KIDNEY DISEASE, STAG E 3A active 198810046 SNOMED-CT Allergies and Adverse Reactions Allergy Substance Reaction Severity Start Date Concern Status Code Code System ADHESIVE Itching (SNOMED-CT: 049941254) Active SUCCINYLCHOLINE CHLORIDE HARD TO WAKE UP (SNOMED-CT: null) Active 3565 RxNorm CIPRO REDNESS IV ONLY (SNOMED-CT: null) Mild Active 249657 RxNorm Plan of Treatment Colonoscopy 12/14/2023 Encounters Encounter Diagnosis Start Date Code Code Sys tem Noninfective gastroenteritis and colitis, unspecified 12/14/2023 SNOMED-CT Personal Care Team Section Performer Name Performer Role Active Date Inactive KIERAN Gilbert PCP - Primary care physician 2024-04-16 Procedures Notes
--- OUTSIDE RECORDS SUMMARY | 2024-12-18 14:17 | XMS_ITS | Encounter Summary ---
Author Organization [facility] Address [address] [place] [address] Care Team Providers Care Odd Ticket Clerk Name Role Phone Priyank Zepeda MD Primary Care Provider [phone] Encounter Details Date Type Department Care Team (Late st Contact Info) Description 10/03/2023 Hospital Follow-up Call [facility] Cardiovascular Care Unit [address] [place] [address] Chelsea Bishop RN Social History Tobacco Use Types Packs/Day Years Used Date Smoking Tobacco: Never [facility] Utilities Answer Date Recorded In the past 12 months has e electric, gas, oil, or water [employer] threatened to shut off services in your [...] on filedocumented in this encounter Care Teams Odd Ticket Clerk Relationship Specialty Start Date End Date Priyank Zepeda MD [address] [place] [address] PCP - General INTERNAL MEDICINE 09/19/19 documented as of this encounter
[2024-12-18 14:51] LABS: Hematocrit 37.3 % (35.0-42.0); Hemoglobin 11.8 g/dL (11.7-13.8); Immature Reticulocyte Fraction 12.9 % (2.0-16.52); Mean Corpuscular HGB Conc 31.6 g/dL (32-36); Mean Corpuscular Hemoglobin 29.3 pg (27.0-31.0); Mean Corpuscular Volume 92.6 fL (78.0-102.0); Platelet Count Result 112 K/mm3 (150-420); Red Blood Count 4.03 M/mm3 (4.20-5.40); Reticulocyte Hemoglobin Conten 32.3 pg (28.0-35.0); Reticulocytes Absolute 0.05 M/mm3 (0.02-0.10); White Blood Count 4.3 K/mm3 (4.8-10.8)
[2024-12-18 15:12] LABS: Anisocytosis 2+; Band Neutrophils Percent 0 % (0-6); Basophils Absolute Manual 0.08 K/mm3 (0-0.1); Basophils Percent Manual 2 % (0-1); Eosinophils Absolute Manual 0.17 K/mm3 (0.02-0.50); Eosinophils Percent Manual 4 % (1-6); Lymphocytes Absolute Manual 0.73 K/mm3 (1.1-4.5); Lymphocytes Percent Manual 17 % (18-44); Monocytes Absolute Manual 0.38 K/mm3 (0.1-0.90); Monocytes Percent Manual 9 % (3-9); Neutrophils Absolute Manual 2.92 K/mm3 (1.3-6.7); Neutrophils Percent Manual 68 % (46-73); Schistocytes None Seen; Total Cells Counted 100
[2024-12-18 15:13] LABS: Hypochromasia 1+
[2024-12-18 15:24] LABS: Iron 52 ug/dL (37-170)
[2024-12-18 15:34] LABS: Percent Iron Saturation 14 % (20-50)
[2024-12-18 16:32] LABS: Vitamin B12 > 1000.0 pg/mL (239-931)
== END 2024-12-18 14:11 | disposition home or self-care (01) ==
LOC: CHSLAB 14:11
PROVIDERS: PCP Internal Medicine; Visit Provider Internal Medicine Hematology
DX: I81 Portal vein thrombosis (principal)
CPT/HCPCS: 36415; 82607; 82746; 83540; 83550; 85025; 85046

== ENCOUNTER 2025-01-06 14:41 | Outpatient (CLI) | payer OTHER, SELFPAY ==
--- OUTSIDE RECORDS SUMMARY | 2025-01-06 15:00 | XMS_ITS | Encounter Summary ---
Author Organization [facility] Address [address] [place] [address] Phone Care Team Providers Care Rope Coiling Machine Operator Name Role Phone Priyank Zepeda MD Primary Care Provider [phone] Reason for Visit * Reason Onset Date Comments Medication Management 08/16/2024 Encounter Details Date Type Department Care Team (Late st Contact Info) Description 08/16/2024 [facility] [address] [place] [address] Eloisa Ruiz, PT Medication Management Social History [...] [facility] patient was observation at [facility] for low potassium from /08/15/24. A [...] on filedocumented in this encounter Care Teams Rope Coiling Machine Operator Relationship Specialty Start Date End Date Priyank Zepeda MD [address] [place] [address] PCP - General Internal Medicine 08/08/24 documented as of this encounter
--- OUTSIDE RECORDS SUMMARY | 2025-01-06 15:00 | XMS_ITS | Encounter Summary ---
Author Organization [facility] Address [address] [place] [address] Phone Care Team Providers Care Mds Nurse Name Role Phone Priyank Zepeda MD Primary Care Provider [phone] Encounter Details Date Type Department Care Team (Late Contact Info) Description 01/03/2020 Orders Only [facility] [address] [place] [address] Kristofer Ortiz MD [address] [place] [address] Chronic kidney disease stage 3 [...] (Late Contact Info) Description 04/22/2025 11:45 AM BEVEL FACE STONER AND POLISHER Office Visit [facility] [address] [place] [address] Kristofer Ortiz MD [address] [place] [address] [address] documented as of this encounter Visit Diagnoses Diagnosis Chronic kidney disease stage 3 (HCC) documented in this encounter Care Teams Mds Nurse Relationship Specialty Start Date End Date Priyank Zepeda MD [address] [place] [address] PCP - General Internal Medicine 05/17/19 documented as of this encounter
--- OUTSIDE RECORDS SUMMARY | 2025-01-06 15:00 | XMS_ITS | Encounter Summary ---
Author Organization [facility] Address [address] [place] [address] Care Team Providers Care Weatherization Operations Manager Name Role Phone Priyank Zepeda MD Primary Care Provider [phone] Encounter Details Date Type Department Care Team (Late st Contact Info) Description 10/03/2023 Hospital Follow-up Call [facility] Cardiovascular Care Unit [address] [place] [address] Chelsea Bishop RN Social History Tobacco Use Types Packs/Day Years Used Date Smoking Tobacco: Never [facility] Utilities Answer Date Recorded In the past 12 months has e electric, gas, oil, or water [employer] threatened to shut off services in your [...] time in the past 12 m [facility], were you homeless or living in a long-term (including now)? No 09/28/2023 Comments Unknown Sex [...] on filedocumented in this encounter Care Teams Weatherization Operations Manager Relationship Specialty Start Date End Date Priyank Zepeda MD [address] [place] [address] PCP - General INTERNAL MEDICINE 09/19/19 documented as of this encounter
--- OUTSIDE RECORDS SUMMARY | 2025-01-06 15:00 | XMS_ITS | Encounter Summary ---
Author Organization [facility] Address [address] [place] [address] Phone Care Team Providers Care Sales Development Consultant Name Role Phone Priyank Zepeda MD Primary Care Provider [phone] Encounter Details Date Type Department Care Team (Late st Contact Info) Description 09/04/2024 [facility] [address] [place] [address] Priyank Zepeda MD [address] [place] [address] Secondary hyperparathyroidism of renal origin [...] unspecified Hypothyroidism, unspecified PHOSPHORUS (PO4) Routine 09/04/2024 4:5 5 PM CDT Secondary hyperparathyroidism of renal origin [...] - 12.00 10(3)/mcL 09/04/2024 6:44 PM CDT [facility] RBC 3.31(L) 3.80 - 5.30 10(6)/mcL 09/04/2024 6:44 PM CDT [facility] HEMOGLOBIN (HGB) 10.2(L) 12.0 - 15.8 g/dL 09/04/2024 6:44 PM CDT [facility] HEMATOCRIT (HCT) 32.3(L) 36.0 - 47.0 % 09/04/2024 6:44 PM CDT [facility] MCV 97.6(H) 82.0 - 96.0 fL 09/04/2024 6:44 PM CDT [facility] MCH 30.8 26.0 - 34.0 pg 09/04/2024 6:44 PM CDT [facility] MCHC 31.6 31.0 - 36.0 g/dL 09/04/2024 6:44 PM CDT [facility] PLATELET COUNT 240 140 - 440 10(3)/[facility] 09/04/2024 6:44 PM CDT [facility] RDW 18.8(H) 11.8 - 15.5 % 09/04/2024 6:44 PM CDT [facility] MPV 9.8 9.7 - 12.4 fL 09/04/2024 6:44 PM CDT [facility] NEUTROPHILS 75.4(H) 47.0 - 73.0 % 09/04/2024 6:44 PM CDT [facility] LYMPHOCYTES 11.9(L) 18.0 - 42.0 % 09/04/2024 6:44 PM CDT [facility] MONOCYTES 9.3 4.0 - 12.0 % 09/04/2024 6:44 PM CDT [facility] EOSINOPHILS 2.8 0.0 - 5.0 % 09/04/2024 6:44 PM CDT [facility] BASOPHILS 0.6 0.0 - 1.0 % 09/04/2024 6:44 PM CDT [facility] ABSOLUTE NEUTROPHILS 3.48 1.60 - 7.70 10(3)/mcL 09/04/2024 6:44 PM CDT [facility] ABSOLUTE LYMPHOCYTES 0.55(L) 1.30 - 3.20 10(3)/mcL 09/04/2024 6:44 PM CDT [facility] ABSOLUTE MONOCYTES 0.43 0.20 - 1.00 10(3)/mcL 09/04/2024 6:44 PM CDT [facility] ABSOLUTE EOSINOPHIL 0.13 0.00 - 0.40 10(3)/mcL 09/04/2024 6:44 PM CDT [facility] ABSOLUTE BASOPHILS 0.03 0.00 - 0.10 10(3)/mcL 09/04/2024 6:44 PM CDT [facility] NRBC PER 100 WBC 0 09/05/19 6:44 PM CDT [facility] RESULTS ARE CONSISTENT WITH PERIPHERAL SMEAR REVIEW Yes 09/04/2024 6:44 PM CDT [facility] RBC MORPHOLOGY CONSISTENT WITH INDICES Yes 09/04/2024 6:44 PM CDT [facility] Blood No Phlebotomy Charged / Unknown 09/04/2024 4:55 PM CDT 09/04/2024 6:06 PM CDT us Priyank Zepeda MD HEMATOLOGY ORDERABLES Final R esult [facility] [address] [place] [address] * (ABNORMAL) PREALBUMIN (PAB) (09/04/2024 4:55 PM CDT) PRE ALBUMIN 13(L) 14 - 37 mg/dL 09/05/2024 6:00 PM CDT [facility] Blood No Phlebotomy Charged / Unknown 09/04/2024 4:55 PM CDT 09/04/2024 6:06 PM CDT us Priyank Zepeda MD CHEMISTRY ORDERABLES Final Re sult [facility] [address] [place] [address], * VITAMIN D, 25 HYDROXY TOTAL (09/04/2024 4:55 PM CDT) VITAMIN D, 25 HYDROX 19.0 ng/mL 09/04/2024 6:55 PM CDT [facility] Blood No Phlebotomy Charged / Unknown 09/04/2024 4:55 PM CDT 09/04/2024 6:06 PM CDT Narrative [facility] - 09/04/2024 6:55 PM CDT Published reference ranges for Vitamin D vary depending on time and place and method of testing, and on patient's age, sex, ethnicity and levels of other measured analytes such as parathormone, calcium and phosphorus. The result should be evaluated in conjunction with clinical findings and suspicions. [place] [employer] and [employer] Clinical Practice Guidelines: Status Vitamin D levels (ng/mL) Deficient <=20 At risk of inadequacy 21-29 Sufficient 30-100 Centers of Disease Control and Prevention Guidelines: Status Vitamin D levels (ng/mL) Deficient <13 At risk of inadequacy 13-19 Sufficient 20-50 Possibly harmful >50 References: [place] [employer], 2010 Dietary reference intakes for calcium and vitamin D. [place]: The National Academies Press. Yo M, Blayne N, Sara LEES, et al., Evaluation, treatment, and prevention of Vitamin D deficiency: an Endocrinology Clinical Practice Guideline. JCEM 2011 96: 7 1763-6375. Kiet A, Dario C, Yemi D, et al., Vitamin D Status: [place], , ARHS data brief, no. 59, [place]: National Center for Health Statistics. 2011. us Priyank Zepeda MD CHEMISTRY ORDERABLES Final Re sult [facility] [place] [address] * (ABNORMAL) THYROID STIMULATING HORMONE (TSH) (09/04/2024 4:55 PM CDT) TSH 9.593(H) 0.300 - 5.000 mIU/L 09/04/2024 6:56 PM CDT [facility] Blood No Phlebotomy Charged / Unknown 09/04/2024 4:55 PM CDT 09/04/2024 6:06 PM CDT us Priyank Zepeda MD CHEMISTRY ORDERABLES Final Re sult [facility] [address] [place] [address] * (ABNORMAL) PHOSPHORUS (PO4) (09/04/2024 4:55 PM CDT) PHOSPHORUS 2.3(L) 2.5 - 4.5 mg/dL 09/04/2024 6:39 PM CDT [facility] Blood No Phlebotomy Charged / Unknown 09/04/2024 4:55 PM CDT 09/04/2024 6:06 PM CDT us Priyank Zepeda MD CHEMISTRY ORDERABLES Final Re sult Performing Organization Address City/[facility]/ZIP Co de Phone Number [facility] [address] [place] [address] * (ABNORMAL) CMP (COMPREHENSIVE METABOLIC PANEL) (09/04/2024 4:55 PM CDT) SODIUM 143 136 - 145 mmol/L 09/04/2024 6:39 PM CDT [facility] POTASSIUM 4.0 3.5 - 5.1 mmol/L 09/04/2024 6:39 PM CDT [facility] CHLORIDE 114(H) 98 - 107 mmol/L 09/04/2024 6:39 PM CDT [facility] CO2, VENOUS 23 22 - 30 mmol/L 09/04/2024 6:39 PM CDT [facility] ANION GAP 10.0 <18.0 mmol/L 09/04/2024 6:39 PM CDT [facility] GLUCOSE 87 70 - 99 mg/dL 09/04/2024 6:39 PM CDT [facility] BUN 10 10 - 20 mg/dL 09/04/2024 6:39 PM CDT [facility] CREATININE, BLOOD 0.77 0.60 - 1.00 mg/dL 09/04/2024 6:39 PM [facility] BUN/CREATININE RATIO 13 12 - 20 ratio 09/04/2024 6:39 PM [facility] TOTAL PROTEIN 6.8 6.0 - 8.0 g/dL 09/04/2024 6:39 PM [facility] ALBUMIN 2.7(L) 3.5 - 5.0 g/dL 09/04/2024 6:39 PM [facility] A/G RATIO 0.7(L) 1.0 - 2.2 09/04/2024 6:39 PM [facility] CALCIUM 8.2(L) 8.7 - 10.5 mg/dL 09/04/2024 6:39 PM [facility] T BILI 0.4 0.2 - 1.2 mg/dL 09/04/2024 6:39 PM [facility] SGOT (AST) 52(H) <43 U/L 09/04/2024 6:39 PM [facility] SGPT (ALT) 37 <56 U/L 09/04/2024 6:39 PM [facility] ALKALINE PHOSPHATASE 137 40 - 150 U/L 09/04/2024 6:39 PM [facility] GFR, ESTIMATED >60 >=60 09/04/2024 6:39 PM [facility] Comment: Creatinine Clearance is the preferred criteria for selecting drug dose adjustments in renally impaired patients. The GFR is provided as additional pertinent clinical information. GFR is reported in mL/min/1.73 sq m. Calculation based on the Chronic Kidney Disease Epidemiology Collaboration (CKD- EPI) equation refit without adjustment for race. GFR, EST. >60 >=60 025 6:39 PM [facility] GFR, EST. NONAFRICAN >60 >=60 09/04/2024 6:39 PM [facility] Blood No Phlebotomy Charged / Unknown 09/04/2024 4:55 PM CDT 09/04/2024 6:06 PM CDT us Priyank Zepeda MD CHEMISTRY ORDERABLES Final Re sult [facility] [place] [address] documented in this encounter Visit Diagnoses Diagnosis Secondary hyperparathyroidism of renal origin (HCC) Secondary hyperparathyroidism (of renal origin) Vitamin D deficiency, unspecified Hypothyroidism, unspecified documented in this encounter Care Teams Sales Development Consultant Relationship Specialty Start Date End Date Priyank Zepeda MD [address] [place] [address] PCP - General Internal Medicine 08/08/24 documented as of this encounter
--- OUTSIDE RECORDS SUMMARY | 2025-01-06 15:00 | XMS_ITS | Clinical Summary ---
Author Organization [facility] [employer] Address [address] [place] [address] Care Team Providers Care Pipe Organ Technician Name Role Phone Priyank Zepeda MD Primary Care Provider Source Comments [facility],non-owned Affiliates and Associated Physician Practices is amultiple site organization consisting of ambulatory clinics and hospital sitesin [place], [place], [place] and [place]. This disclosure is being madepursuant to the Care Everywhere program and may not contain all information available regarding this patient. Last updated 18.[facility] [employer] Allergies Active Allergy Reactions Criticality Noted Date [...] once daily 42 Each 08/07/2024 1:10 PM BONDING SUPERVISOR 5 Active ferrous sulfate 325 (65 FE) MG tablet Take 1 (one) tablet by mouth once daily after lunch 30 tablet 08/07/2024 1:10 PM BONDING SUPERVISOR 5 Active folic acid (Folvite) 1 MG tablet Take 1 (one) tablet by mouth once daily 30 tablet 08/07/2024 1:10 PM BONDING SUPERVISOR 5 Active pantoprazole EC (Protonix) 40 MG tablet Take 1 (one) tablet by mouth 2 times daily, before breakfast and supper 60 tablet 08/07/2024 1:10 PM BONDING SUPERVISOR 5 Active sucralfate (Carafate) 1 GM/10ML suspension Take 10 mL by mouth 4 times daily - before meals & nightly 420 mL 08/07/2024 1:10 PM BONDING SUPERVISOR 5 Active Cholecalciferol (vitamin D3) 1.25 MG (24258 UT) capsule Take 1 (one) capsule by mouth every 7 days 5 capsule 5 Active furosemide (Lasix) 40 MG tablet Take 1 (one) tablet by mouth once daily 30 tablet 08/07/2024 1:10 PM BONDING SUPERVISOR 5 Active Calcium Carbonate Antacid (calcium carbonate, 500 mg elemental Ca/5 mL,) 1250 MG/5ML suspension Take 10 mL by mouth 3 times daily with meals 473 mL 1 5 Active pancrelipase (Creon 24,000) 39947-87890 units capsule Take 1 (one) capsule by [...] medical care, and heating? Somewhat hard 07/28/2024 [facility] [place] [facility] - Occupational Stress [...] any time in the past 12 m [facility], were you homeless or living in a jail (including now)? No 07/28/2024 Comments Unknown Sex and Gender Information Value Date Recorded Sex Assigned at Not on file Legal Sex Female 9:40 AM CDT Gender Identity Not on file Sexual Orientation Not on file Last Filed Vital Signs Vital Sign Reading Time Taken Comments Blood Pressure 112/78 08/07/2024 2:44 PM BONDING SUPERVISOR Pulse 93 08/07/2024 2:44 PM BONDING SUPERVISOR Temperature 37.5 C (99.5 F) 08/07/2024 11:33 AM BONDING SUPERVISOR Respiratory Rate 18 08/07/2024 11:3 3 AM BONDING SUPERVISOR Oxygen Saturation 97% 08/07/2024 2:44 PM BONDING SUPERVISOR Inhaled Oxygen Concentration - - Weight 87.5 kg (192 lb 14.4 oz) 025 12:04 AM BONDING SUPERVISOR Height 165.1 cm (5' 5) 07/28/2024 4:01 PM BONDING SUPERVISOR Body Mass Index 32.1 07/28/2024 4:01 PM BONDING SUPERVISOR Plan of Treatment Health Maintenance Due Date [...] patient's age to complete this topic Insurance [facility] Advance Directives Documents on File Type Date Recorded Patient Duplicator Punch Set Up Operator Expl anation Adv Directive/Living Will/POA 08/08/2024 10:51 PM Adv Directive/Living Will/POA 08/01/2024 8:23 PM Adv Directive/Living Will/POA 07/31/2024 7:48 PM * Full Code (Latest Code Status on File) Date Activated Date Inactivated Comments 07/28/2024 3:11 PM 08/07/2024 5:49 PM Care Teams Pipe Organ Technician Relationship Specialty Start Date End Date Priyank Zepeda MD [address] [place] [address] PCP - General 02/23/22
--- OUTSIDE RECORDS SUMMARY | 2025-01-06 15:00 | XMS_ITS | Clinical Summary ---
Author Organization [facility] Address [address] [place] [address] Care Team Providers Care Computer Lab Assistant Name Role Phone Priyank Zepeda MD Primary Care Provider [phone] Allergies Active Allergy Reactions Criticality Noted Date [...] Packs/Day Years Used Date Smoking Tobacco: Never [facility] [employer] Answer Date Recorded In the past 12 months has e [employer], oil, or water [employer] threatened to shut off services in your [...] living in a fdc (including now)? No 11/17/2023 Comments Unknown Sex [...] 1:27 AM 10/02/2023 3:59 PM Care Teams Computer Lab Assistant Relationship Specialty Start Date End Date Priyank Zepeda MD [address] [place] [address] PCP - General INTERNAL MEDICINE 09/19/19
--- OUTSIDE RECORDS SUMMARY | 2025-01-06 15:00 | XMS_ITS | Clinical Summary ---
Author Organization [facility] Address [address] [address] Care Team Providers Care Tire Curer Name Role Phone Priyank Zepeda MD Primary Care Provider [phone] Allergies Active Allergy Reactions Criticality Noted Date [...] 5 Active Cholecalciferol (Vitamin D3) 1.25 MG (84791 UT) capsule Take 50,000 Units by mouth [...] Description 10/22/2024 10:45 AM CDT Office Visit [facility] [address] [place] [address] Kristofer Ortiz MD Chronic kidney disease, stage 2 (mild) (Primary Dx); Hypertension; Anemia in chronic kidney disease; Secondary hyperparathyroidism of renal origin (HCC) 10/22/2024 Orders Only [facility] [address] [place] [address] Ana Duran RN 10/10/2024 Documentation Only [facility] [place] [address] Kristofer Ortiz MD from Last 3 [...] CDT Respiratory Rate 18 05/15/2018 11:00 AM BILINGUAL TEACHER ASSISTANT Oxygen Saturation 99% 10/22/2024 10:46 AM CDT Inhaled Oxygen Concentration - - Weight 63 kg (139 lb) 10/22/2024 10:46 AM CDT Height 160 cm (5' 3) 10/22/2024 10:46 AM CDT Body Mass Index 24.62 10/22/2024 10:46 AM CDT Plan of Treatment Upcoming Encounters Date Type Department Care Team (Late st Contact Info) Description 04/22/2025 11:45 AM BILINGUAL TEACHER ASSISTANT Office Visit [facility] [address] [place] [address] Kristofer Ortiz MD [address] [place] [address] Health Maintenance Due Date Last Done Comments Breast Cancer Screening 1960 Pneumococcal Vaccine: 50+ Years (1 of 2 - PCV) 1978 Influenza Vaccine (#1) 2025 , 03/27/2023, 03/06/2022, Additional history exists Colorectal Cancer Screening: Colonoscopy Discontinued 12/14/2023, 11/04/2021 Hepatitis B Vaccine Aged Out No longe r eligible based on patient's age to complete this topic Insurance [facility] Advance Directives Documents on File Type Date Recorded Patient Support Merchandiser Expl anation Power of Vegetable Farmer 10/25/2021 11:10 AM Othe r - POA Power of Vegetable Farmer 10/25/2021 11:10 AM Othe r - POA Care Teams Tire Curer Relationship Specialty Start Date End Date Priyank Zepeda MD [address] [place] [address] PCP - General Internal Medicine 05/17/19
--- OUTSIDE RECORDS SUMMARY | 2025-01-06 15:00 | XMS_ITS | Clinical Summary ---
Author Organization [facility] Address [address] [address] Phone Care Team Providers Care Visual Merchandiser Name Role Phone Priyank Zepeda MD Primary Care Provider [phone] Allergies No known active allergies Medications calcium [...] route 2 times per day Active Pancrelipase, Dip-Nfui-Fedp, (CREON PO) Take 24,000 Units by mouth 3 times daily (with meals). Take 1 capsule by mouth 3 times daily with meals Active spironolactone (ALDACTONE) 25 MG Tablet Take 25 mg by mouth daily. Active BETA CAROTENE PO Take 7,500 mcg by mouth daily. Active Cyanocobalamin (VITAMIN B12 PO) Take 2,500 mcg by mouth daily. Active pancrelipase, lipase-protease- amylase, (Creon) [address] Particles Take 1 Capsule [...] Documents on File Type Date Recorded Patient Registered Respiratory Technician Expl anation Power of Outreach Clinician for Health Care 08/26/2024 9:18 AM POA-HC Power of Outreach Clinician for Health Care 08/26/2024 9:18 AM POA-HC Power of Outreach Clinician for Health Care 08/26/2024 9:13 AM POA-HC Power of Outreach Clinician for Health Care 08/26/2024 9:08 AM POA-HC Power of Outreach Clinician for Health Care 08/14/2024 12:10 PM POA HC 07/30/2024 * Full Code (Latest Code Status on File) Date Activated Date Inactivated Comments 08/13/2024 10:26 PM Care Teams Visual Merchandiser Relationship Specialty Start Date End Date Priyank Zepeda MD [address] [place] [address] PCP - General Internal Medicine 08/08/24
--- OUTSIDE RECORDS SUMMARY | 2025-01-06 15:00 | XMS_ITS | Encounter Summary ---
Author Organization [facility] Address [address] [place] [address] Phone Care Team Providers Care Visual Training Aide Name Role Phone Priyank Zepeda MD Primary Care Provider [phone] Reason for Visit * Reason Onset Date Comments Medication Management 08/13/2024 Encounter Details Date Type Department Care Team (Late st Contact Info) Description 08/13/2024 [facility] [address] [place] [address] Eloisa Ruiz, PT Medication Management Social History [...] on filedocumented in this encounter Care Teams Visual Training Aide Relationship Specialty Start Date End Date Priyank Zepeda MD [address] [place] [address] PCP - General Internal Medicine 08/08/24 documented as of this encounter
[2025-01-06 15:27] LABS: Hematocrit 36.4 % (35.0-42.0); Hemoglobin 11.5 g/dL (11.7-13.8); Immature Granulocyte Percent A 0.2 % (0.0-0.0); Lymphocytes Absolute Auto 0.52 K/mm3 (1.10-4.50); Mean Corpuscular HGB Conc 31.6 g/dL (32-36); Mean Corpuscular Hemoglobin 29.4 pg (27.0-31.0); Mean Corpuscular Volume 93.1 fL (78.0-102.0); Nucleated Red Blood Cells Absolute Auto 0.00 K/mm3 (0.00-0.00); Nucleated Red Blood Cells Perc 0.0 % (0-0.0); Platelet Count Result 138 K/mm3 (150-420); Red Blood Count 3.91 M/mm3 (4.20-5.40); White Blood Count 5.3 K/mm3 (4.8-10.8)
[2025-01-06 15:30] LABS: Add Urine Microscopic? YES; Glucose Urine UA Negative (Negative); Leukocyte Esterase Ur 2+ (Negative); Nitrate Urine Negative (Negative); Specific Grav Ur <= 1.005 (1.010-1.020)
[2025-01-06 16:47] LABS: Alanine Aminotransferase 54 U/L (6-35); Albumin Level 3.4 g/dL (3.5-5.1); Alkaline Phosphatase 129 U/L (38-126); Anion Gap 7 mmol/L (4-12); Aspartate Amino Transferase 45 U/L (14-36); Bilirubin,Total 0.7 mg/dL (0.2-1.3); Blood Urea Nitrogen 23 mg/dL (7-17); Calcium 8.3 mg/dL (8.4-10.2); Carbon Dioxide 18 mmol/L (22-30); Chloride 113 mmol/L (98-107); Estimated Glomerular Filt Rate > 60; Glucose 105 mg/dL (65-110); Osmolality Calculated 289 mOsm/kg (285-295); Potassium 4.7 mmol/L (3.4-5.0); Sodium 138 mmol/L (137-145); Total Protein 6.7 g/dL (6.3-8.2)
[2025-01-06 16:56] LABS: Appearance Urine Sl Cloudy (Clear)
== END 2025-01-06 14:42 | disposition home or self-care (01) ==
PROVIDERS: PCP Internal Medicine; Visit Provider Nurse Practitioner Family
DX: R30.0 Dysuria (principal); K62.89 Other specified diseases of anus and rectum; R63.4 Abnormal weight loss
CPT/HCPCS: 36415; 80053; 81001; 85025; 85652; 87086

== ENCOUNTER 2025-01-07 10:39 | Outpatient (CLI) | payer OTHER, SELFPAY ==
--- OUTSIDE RECORDS SUMMARY | 2025-01-07 11:15 | XMS_ITS | Clinical Summary ---
Author Organization [facility] Address [address] [place] [address] Care Team Providers Care Wall And Floor Tiler Name Role Phone Priyank Zepeda MD Primary Care Provider Allergies Active Allergy Reactions Criticality Noted Date Comments Ciprofloxacin Rash Low 11/17/2023 Tape Redness 09/28/2023 Medications calcitriol (ROCALTROL) 0.5 MCG capsule Take 1 capsule (0.5 mcg total) by mouth daily. Active metoprolol succinate ER (TOPROL-XL) 50 MG 24 hr tablet Take 1 tablet (50 mg total) by mouth daily. Active multivitamin (TAB-A-SUDIHR/BETA CAROTENE) tablet Take 1 tablet by mouth [...] Packs/Day Years Used Date Smoking Tobacco: Never [facility] [employer] Answer Date Recorded In the past 12 months has e [employer], [employer], oil, or water [employer] threatened to shut off services in your [...] were you homeless or living in a mcfp (including now)? No 11/17/2023 Comments Unknown Sex [...] 1:27 AM 10/02/2023 3:59 PM Care Teams Wall And Floor Tiler Relationship Specialty Start Date End Date Priyank Zepeda MD [address] [place] [address] PCP - General INTERNAL MEDICINE 09/19/19
--- OUTSIDE RECORDS SUMMARY | 2025-01-07 11:15 | XMS_ITS | Clinical Summary ---
Author Organization [facility] Address [address] [place] [address] Care Team Providers Care Clinical Esthetician Name Role Phone Gayla Villar Primary Care Provider [phone] Social History Tobacco Use Types Packs/Day Years Used Date Smoking Tobacco: Never Assessed Comments Unknown Sex and Gender Information Value Date Recorded Sex Assigned at Not on file Legal Sex Female 4:22 PM BILLET HEATER Gender Identity Not on file Sexual Orientation Not on file Plan of Treatment Health Maintenance Due Date Last Done Comments CERVICAL CANCER SCREENING 1959 CT Colonography 1959 FIT Test 1959 FIT-DNA Test 1959 FLEXIBLE SIGMOIDOSCOPY 1959 HEPATITIS C SCREENING 1959 TDAP/TD VACCINE (1 - Tdap) 1970 DEPRESSION SCREENING 1971 HIV SCREENING 1974 COLONOSCOPY 2004 COLORECTAL CANCER SCREENING 2004 Pneumococcal Vaccine: 50+ Years (1 of 1 - PCV) 010 ZOSTER SERIES VACCINE (1 of 2) 2009 BREAST CANCER SCREENING 05/05/2014 OSTEOPOROSIS SCREENING 05/05/2014 COVID-19 VACCINE ( - 2023-25 season) 2024 INFLUENZA VACCINE (#1) 2025 Adult RSV VACCINE (1 - 1-dose 75+ series) 2034 Insurance [place] Care Teams Clinical Esthetician Relationship Specialty Start Date End Date Gayla Villar [address] [facility] [address] [place] [address] PCP - General 03/11/02
--- OUTSIDE RECORDS SUMMARY | 2025-01-07 11:15 | XMS_ITS | Encounter Summary ---
Author Organization [facility] Address [address] [place] [address] Phone Care Team Providers Care Hydration Plant Operator Name Role Phone Priyank Zepeda MD Primary Care Provider [phone] Reason for Visit * Reason Onset Date Comments Medication Management 08/13/2024 Encounter Details Date Type Department Care Team (Late st Contact Info) Description 08/13/20[facility] [address] [place] [address] Eloisa Ruiz, PT Medication Management Social History [...] on filedocumented in this encounter Care Teams Hydration Plant Operator Relationship Specialty Start Date End Date Priyank Zepeda MD [address] [place] [address] PCP - General Internal Medicine 08/08/24 documented as of this encounter
--- OUTSIDE RECORDS SUMMARY | 2025-01-07 11:15 | XMS_ITS | Encounter Summary ---
Author Organization [facility] Address [address] [place] [address] Phone Care Team Providers Care Cosmetics Supervisor Name Role Phone Priyank Zepeda MD Primary Care Provider [phone] Encounter Details Date Type Department Care Team (Late Contact Info) Description 01/03/2020 Orders Only [facility]. [address] [place] [address] Kristofer Ortiz MD [address] [place] [address] Chronic kidney disease stage 3 [...] (Late Contact Info) Description 04/22/2025 11:45 AM STACK CLERK Office Visit [facility] [address] [place] [address] Kristofer Ortiz MD [address] [place] [address] [address] documented as of this encounter Visit Diagnoses Diagnosis Chronic kidney disease stage 3 (HCC) documented in this encounter Care Teams Cosmetics Supervisor Relationship Specialty Start Date End Date Priyank Zepeda MD [address] [place] [address] PCP - General Internal Medicine 05/17/19 documented as of this encounter
--- OUTSIDE RECORDS SUMMARY | 2025-01-07 11:15 | XMS_ITS | Encounter Summary ---
Author Organization [facility] Address [address] [facility] [place] [address] Phone Care Team Providers Care Mail Handlers Supervisor Name Role Phone Priyank Zepeda MD Primary Care Provider [phone] Reason for Visit * Reason Onset Date Comments Medication Management 08/16/2024 Encounter Details Date Type Department Care Team (Late st Contact Info) Description 08/16/20[facility] [address] [place] [address] Eloisa Ruiz, PT Medication Management Social History [...] [facility] patient was observation at [facility] for low potassium from /08/15/24. A [...] on filedocumented in this encounter Care Teams Mail Handlers Supervisor Relationship Specialty Start Date End Date Priyank Zepeda MD [address] [place] [address] PCP - General Internal Medicine 08/08/24 documented as of this encounter
--- OUTSIDE RECORDS SUMMARY | 2025-01-07 11:15 | XMS_ITS | Clinical Summary ---
Author Organization [facility] Address [address] [place] [address] Care Team Providers Care Character Actress Name Role Phone Priyank Zepeda MD Primary Care Provider [phone] Source Comments [facility],non-owned Affiliates and Associated Physician Practices is amultiple site organization consisting of ambulatory clinics and hospital sitesin [place], [place], [place] and [place]. This disclosure is being madepursuant to the Care Everywhere program and may not contain all information available regarding this patient. Last updated 18.[facility] Allergies Active Allergy Reactions Criticality Noted Date [...] once daily 42 Each 08/07/2024 1:10 PM MAINTENANCE DIRECTOR 5 Active ferrous sulfate 325 (65 FE) MG tablet Take 1 (one) tablet by mouth once daily after lunch 30 tablet 08/07/2024 1:10 PM MAINTENANCE DIRECTOR 5 Active folic acid (Folvite) 1 MG tablet Take 1 (one) tablet by mouth once daily 30 tablet 08/07/2024 1:10 PM MAINTENANCE DIRECTOR 5 Active pantoprazole EC (Protonix) 40 MG tablet Take 1 (one) tablet by mouth 2 times daily, before breakfast and supper 60 tablet 08/07/2024 1:10 PM MAINTENANCE DIRECTOR 5 Active sucralfate (Carafate) 1 GM/10ML suspension Take 10 mL by mouth 4 times daily - before meals & nightly 420 mL 08/07/2024 1:10 PM MAINTENANCE DIRECTOR 5 Active Cholecalciferol (vitamin D3) 1.25 MG (81656 UT) capsule Take 1 (one) capsule by mouth every 7 days 5 capsule 5 Active furosemide (Lasix) 40 MG tablet Take 1 (one) tablet by mouth once daily 30 tablet 08/07/2024 1:10 PM MAINTENANCE DIRECTOR 5 Active Calcium Carbonate Antacid (calcium carbonate, 500 mg elemental Ca/5 mL,) 1250 MG/5ML suspension Take 10 mL by mouth 3 times daily with meals 473 mL 1 5 Active pancrelipase (Creon 24,000) 67[address] units capsule Take 1 (one) capsule by [...] medical care, and heating? Somewhat hard 07/28/2024 [facility] of Occupat ional Health - Occupational Stress [...] time in the past 12 m [facility], were you homeless or living in a half-way (including now)? No 07/28/2024 Comments Unknown Sex and Gender Information Value Date Recorded Sex Assigned at Not on file Legal Sex Female 9:40 AM CDT Gender Identity Not on file Sexual Orientation Not on file Last Filed Vital Signs Vital Sign Reading Time Taken Comments Blood Pressure 112/78 08/07/2024 2:44 PM MAINTENANCE DIRECTOR Pulse 93 08/07/2024 2:44 PM MAINTENANCE DIRECTOR Temperature 37.5 C (99.5 F) 08/07/2024 11:33 AM MAINTENANCE DIRECTOR Respiratory Rate 18 08/07/2024 11:3 3 AM MAINTENANCE DIRECTOR Oxygen Saturation 97% 08/07/2024 2:44 PM MAINTENANCE DIRECTOR Inhaled Oxygen Concentration - - Weight 87.5 kg (192 lb 14.4 oz) 025 12:04 AM MAINTENANCE DIRECTOR Height 165.1 cm (5' 5) 07/28/2024 4:01 PM MAINTENANCE DIRECTOR Body Mass Index 32.1 07/28/2024 4:01 PM MAINTENANCE DIRECTOR Plan of Treatment Health Maintenance Due Date [...] patient's age to complete this topic Insurance [facility] Advance Directives Documents on File Type Date Recorded Patient Cargoman Expl anation Adv Directive/Living Will/POA 08/08/2024 10:51 PM Adv Directive/Living Will/POA 08/01/2024 8:23 PM Adv Directive/Living Will/POA 07/31/2024 7:48 PM * Full Code (Latest Code Status on File) Date Activated Date Inactivated Comments 07/28/2024 3:11 PM 08/07/2024 5:49 PM Care Teams Character Actress Relationship Specialty Start Date End Date Priyank Zepeda MD [address] [place] [address] PCP - General 02/23/22
--- OUTSIDE RECORDS SUMMARY | 2025-01-07 11:15 | XMS_ITS | Clinical Summary ---
Author Organization [facility] Address [address] [address] Phone Care Team Providers Care Hand I Thermal Cutter Name Role Phone Priyank Zepeda MD Primary Care Provider [phone] Allergies No known active allergies Medications calcium [...] route 2 times per day Active Pancrelipase, Hbb-Orcy-Fnxs, (CREON PO) Take 24,000 Units by mouth 3 times daily (with meals). Take 1 capsule by mouth 3 times daily with meals Active spironolactone (ALDACTONE) 25 MG Tablet Take 25 mg by mouth daily. Active BETA CAROTENE PO Take 7,500 mcg by mouth daily. Active Cyanocobalamin (VITAMIN B12 PO) Take 2,500 mcg by mouth daily. Active pancrelipase, lipase-protease- amylase, (Creon) [address] Particles Take 1 Capsule [...] Documents on File Type Date Recorded Patient Ingot Car Operator Expl anation Power of Operations Intelligence Superintendent for Health Care 08/26/2024 9:18 AM POA-HC Power of Operations Intelligence Superintendent for Health Care 08/26/2024 9:18 AM POA-HC Power of Operations Intelligence Superintendent for Health Care 08/26/2024 9:13 AM POA-HC Power of Operations Intelligence Superintendent for Health Care 08/26/2024 9:08 AM POA-HC Power of Operations Intelligence Superintendent for Health Care 08/14/2024 12:10 PM POA HC 07/30/2024 * Full Code (Latest Code Status on File) Date Activated Date Inactivated Comments 08/13/2024 10:26 PM Care Teams Hand I Thermal Cutter Relationship Specialty Start Date End Date Priyank Zepeda MD [address] [place] [address] PCP - General Internal Medicine 08/08/24
--- OUTSIDE RECORDS SUMMARY | 2025-01-07 11:15 | XMS_ITS | Encounter Summary ---
Author Organization [facility] Address [address] [place] [address] Phone Care Team Providers Care Wallpaper Cleaner Name Role Phone Priyank Zepeda MD Primary Care Provider [phone] Encounter Details Date Type Department Care Team (Late Contact Info) Description 12/06/2019 Orders Only [facility] [address] [place] [address] Kristofer Ortiz MD [address] [place] [address] Chronic kidney disease stage 3 [...] (Late Contact Info) Description 04/22/2025 11:45 AM CHEMICAL PROCESSING LABORER Office Visit [facility]. [address] [place] [address] Kristofer Ortiz MD [address] [place] [address] [address] documented as of this encounter Visit Diagnoses Diagnosis Chronic kidney disease stage 3 (HCC) documented in this encounter Care Teams Wallpaper Cleaner Relationship Specialty Start Date End Date Priyank Zepeda MD [address] [place] [address] PCP - General Internal Medicine 05/17/19 documented as of this encounter
--- OUTSIDE RECORDS SUMMARY | 2025-01-07 11:15 | XMS_ITS | Encounter Summary ---
Author Organization [facility] Address [address] [facility] [place] [address] Phone Care Team Providers Care Residence Director Name Role Phone Priyank Zepeda MD Primary Care Provider [phone] Encounter Details Date Type Department Care Team (Late st Contact Info) Description 09/04/2024 [facility] [address] [place] [address] Priyank Zepeda MD [address] [place] [address] Secondary hyperparathyroidism of renal origin [...] - 12.00 10(3)/mcL 09/04/2024 6:44 PM CDT [facility] RBC 3.31(L) 3.80 - 5.30 10(6)/mcL 09/04/2024 6:44 PM CDT [facility] HEMOGLOBIN (HGB) 10.2(L) 12.0 - 15.8 g/dL 09/04/2024 6:44 PM CDT [facility] HEMATOCRIT (HCT) 32.3(L) 36.0 - 47.0 % 09/04/2024 6:44 PM CDT [facility] MCV 97.6(H) 82.0 - 96.0 fL 09/04/2024 6:44 PM CDT [facility] MCH 30.8 26.0 - 34.0 pg 09/04/2024 6:44 PM CDT [facility] MCHC 31.6 31.0 - 36.0 g/dL 09/04/2024 6:44 PM CDT [facility] PLATELET COUNT 240 140 - 440 10(3)/mcL 09/04/2024 6:44 PM CDT [facility] RDW 18.8(H) 11.8 - 15.5 % 09/04/2024 6:44 PM CDT [facility] MPV 9.8 9.7 - 12.4 fL 09/04/2024 6:44 PM CDT [facility] NEUTROPHILS 75.4(H) 47.0 - 73.0 % 09/04/2024 6:44 PM CDT [facility] LYMPHOCYTES 11.9(L) 18.0 - 42.0 % 09/04/2024 6:44 PM CDT [facility] MONOCYTES 9.3 4.0 - 12.0 % 09/04/2024 6:44 PM CDT [facility] EOSINOPHILS 2.8 0.0 - 5.0 % 09/04/2024 6:44 PM CDT [facility] BASOPHILS 0.6 0.0 - 1.0 % 09/04/2024 6:44 PM CDT [facility] ABSOLUTE NEUTROPHILS 3.48 1.60 - 7.70 10(3)/mcL 09/04/2024 6:44 PM CDT [facility] ABSOLUTE LYMPHOCYTES 0.55(L) 1.30 - 3.20 10(3)/mcL 09/04/2024 6:44 PM CDT [facility] ABSOLUTE MONOCYTES 0.43 0.20 - 1.00 10(3)/mcL 09/04/2024 6:44 PM CDT [facility] ABSOLUTE EOSINOPHIL 0.13 0.00 - 0.40 10(3)/mcL 09/04/2024 6:44 PM CDT [facility] ABSOLUTE BASOPHILS 0.03 0.00 - 0.10 10(3)/mcL 09/04/2024 6:44 PM CDT [facility] NRBC PER 100 WBC 0 09/05/19 6:44 PM CDT [facility] RESULTS ARE CONSISTENT WITH PERIPHERAL SMEAR REVIEW Yes 09/04/2024 6:44 PM CDT [facility] RBC MORPHOLOGY CONSISTENT WITH INDICES Yes 09/04/2024 6:44 PM CDT [facility] Blood No Phlebotomy Charged / Unknown 09/04/2024 4:55 PM CDT 09/04/2024 6:06 PM CDT us Priyank Zepeda MD HEMATOLOGY ORDERABLES Final R esult [facility] [address] [place] [address] * (ABNORMAL) PREALBUMIN (PAB) (09/04/2024 4:55 PM CDT) Pathologist [facility] PRE ALBUMIN 13(L) 14 - 37 mg/dL 09/05/2024 6:00 PM CDT [facility] Blood No Phlebotomy Charged / Unknown 09/04/2024 4:55 PM CDT 09/04/2024 6:06 PM CDT us Priyank Zepeda MD CHEMISTRY ORDERABLES Final Re sult [facility] [address] [place] [address], * VITAMIN D, 25 HYDROXY TOTAL (09/04/2024 4:55 PM CDT) VITAMIN D, 25 HYDROX 19.0 ng/mL 09/04/2024 6:55 PM CDT [facility] Blood No Phlebotomy Charged / Unknown 09/04/2024 4:55 PM CDT 09/04/2024 6:06 PM CDT Narrative [facility] - 09/04/2024 6:55 PM CDT Published reference ranges for Vitamin D vary depending on time and place and method of testing, and on patient's age, sex, ethnicity and levels of other measured analytes such as parathormone, calcium and phosphorus. The result should be evaluated in conjunction with clinical findings and suspicions. [place] of [employer] and Endocrine Clinical Practice Guidelines: Status Vitamin D levels (ng/mL) Deficient <=20 At risk of inadequacy 21-29 Sufficient 30-100 Centers of Disease Control and Prevention Guidelines: Status Vitamin D levels (ng/mL) Deficient <13 At risk of inadequacy 13-19 Sufficient 20-50 Possibly harmful >50 References: [place] [employer], 2010 Dietary reference intakes for calcium and vitamin D. [place]: The National Academies Press. Yo M, Blayne N, Sara LEES, et al., Evaluation, treatment, and prevention of Vitamin D deficiency: an Endocrinology Clinical Practice Guideline. JCEM 2011 96: 7 7901-6194. Kiet A, Dario C, Yemi D, et al., Vitamin D Status: [place], , WIHS data brief, no. 59, [place]: National Center for Health Statistics. 2011. us Priyank Zepeda MD CHEMISTRY ORDERABLES Final Re sult [facility] [address] [place] [address] * (ABNORMAL) THYROID STIMULATING HORMONE (TSH) (09/04/2024 4:55 PM CDT) TSH 9.593(H) 0.300 - 5.000 mIU/L 09/04/2024 6:56 PM CDT [facility] Blood No Phlebotomy Charged / Unknown 09/04/2024 4:55 PM CDT 09/04/2024 6:06 PM CDT us Priyank Zepeda MD CHEMISTRY ORDERABLES Final Re sult [facility] [address] [place] [address] * (ABNORMAL) PHOSPHORUS (PO4) (09/04/2024 4:55 PM CDT) PHOSPHORUS 2.3(L) 2.5 - 4.5 mg/dL 09/04/2024 6:39 PM CDT [facility] Blood No Phlebotomy Charged / Unknown 09/04/2024 4:55 PM CDT 09/04/2024 6:06 PM CDT us Priyank Zepeda MD CHEMISTRY ORDERABLES Final Re sult Performing Organization Address City/[facility]/ZIP Co de Phone Number [facility] [address] [place] [address] * (ABNORMAL) CMP (COMPREHENSIVE METABOLIC PANEL) (09/04/2024 4:55 PM CDT) SODIUM 143 136 - 145 mmol/L 09/04/2024 6:39 PM CDT [facility] POTASSIUM 4.0 3.5 - 5.1 mmol/L 09/04/2024 6:39 PM CDT [facility] CHLORIDE 114(H) 98 - 107 mmol/L 09/04/2024 6:39 PM CDT [facility] CO2, VENOUS 23 22 - 30 mmol/L 09/04/2024 6:39 PM CDT [facility] ANION GAP 10.0 <18.0 mmol/L 09/04/2024 6:39 PM CDT [facility] GLUCOSE 87 70 - 99 mg/dL 09/04/2024 6:39 PM CDT [facility] BUN 10 10 - 20 mg/dL 09/04/2024 6:39 PM CDT [facility] CREATININE, BLOOD 0.77 0.60 - 1.00 mg/dL 09/04/2024 6:39 PM [facility] BUN/CREATININE RATIO 13 12 - 20 ratio 09/04/2024 6:39 PM [facility] TOTAL PROTEIN 6.8 6.0 - 8.0 g/dL 09/04/2024 6:39 PM [facility] ALBUMIN 2.7(L) 3.5 - 5.0 g/dL 09/04/2024 6:39 PM [facility] A/G RATIO 0.7(L) 1.0 - 2.2 09/04/2024 6:39 PM [facility] CALCIUM 8.2(L) 8.7 - 10.5 mg/dL 09/04/2024 6:39 PM [facility] T BILI 0.4 0.2 - 1.2 mg/dL 09/04/2024 6:39 PM [facility] SGOT (AST) 52(H) <43 U/L 09/04/2024 6:39 PM [facility] SGPT (ALT) 37 <56 U/L 09/04/2024 6:39 PM [facility] ALKALINE PHOSPHATASE 137 40 - 150 U/L 09/04/2024 6:39 PM [facility] GFR, ESTIMATED >60 >=60 09/04/2024 6:39 PM [facility] Comment: Creatinine Clearance is the preferred criteria for selecting drug dose adjustments in renally impaired patients. The GFR is provided as additional pertinent clinical information. GFR is reported in mL/min/1.73 sq m. Calculation based on the Chronic Kidney Disease Epidemiology Collaboration (CKD- EPI) equation refit without adjustment for race. GFR, EST. >60 >=60 025 6:39 PM [facility] GFR, EST. NONAFRICAN >60 >=60 09/04/2024 6:39 PM [facility] Blood No Phlebotomy Charged / Unknown 09/04/2024 4:55 PM CDT 09/04/2024 6:06 PM CDT us Priyank Zepeda MD CHEMISTRY ORDERABLES Final Re sult [facility] [address] [place] [address] documented in this encounter Visit Diagnoses Diagnosis Secondary hyperparathyroidism of renal origin (HCC) Secondary hyperparathyroidism (of renal origin) Vitamin D deficiency, unspecified Hypothyroidism, unspecified documented in this encounter Care Teams Residence Director Relationship Specialty Start Date End Date Priyank Zepeda MD [address] [place] [address] PCP - General Internal Medicine 08/08/24 documented as of this encounter
--- OUTSIDE RECORDS SUMMARY | 2025-01-07 11:15 | XMS_ITS | Clinical Summary ---
Author Organization [facility] Facility Address [address] [address] Care Team Providers Care Rehab/Pre Vocational Counselor Name Role Phone Priyank Zepeda MD Primary Care Provider [phone] Allergies Active Allergy Reactions Criticality Noted Date [...] 5 Active Cholecalciferol (Vitamin D3) 1.25 MG (87065 UT) capsule Take 50,000 Units by mouth [...] Description 10/22/2024 10:45 AM CDT Office Visit [facility] [address] [place] [address] Kristofer Ortiz MD Chronic kidney disease, stage 2 (mild) (Primary Dx); Hypertension; Anemia in chronic kidney disease; Secondary hyperparathyroidism of renal origin (HCC) 10/22/2024 Orders Only [facility] [address] [place] [address] Ana Duran RN 10/10/2024 Documentation Only [facility] [address] [place] [address] Kristofer Ortiz MD from Last 3 [...] CDT Respiratory Rate 18 05/15/2018 11:00 AM MECHANICAL STRIPER Oxygen Saturation 99% 10/22/2024 10:46 AM CDT Inhaled Oxygen Concentration - - Weight 63 kg (139 lb) 10/22/2024 10:46 AM CDT Height 160 cm (5' 3) 10/22/2024 10:46 AM CDT Body Mass Index 24.62 10/22/2024 10:46 AM CDT Plan of Treatment Upcoming Encounters Date Type Department Care Team (Late st Contact Info) Description 04/22/2025 11:45 AM MECHANICAL STRIPER Office Visit [facility] [address] [place] [address] Kristofer Ortiz MD [address] [place] [address] Health Maintenance Due Date Last Done Comments Breast Cancer Screening 1960 Pneumococcal Vaccine: 50+ Years (1 of 2 - PCV) 1978 Influenza Vaccine (#1) 2025 , 03/27/2023, 03/06/2022, Additional history exists Colorectal Cancer Screening: Colonoscopy Discontinued 12/14/2023, 11/04/2021 Hepatitis B Vaccine Aged Out No longe r eligible based on patient's age to complete this topic Insurance [facility] Advance Directives Documents on File Type Date Recorded 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
--- OUTSIDE RECORDS SUMMARY | 2025-01-07 11:15 | XMS_ITS | Encounter Summary ---
Author Organization [facility] Address [address] [place] [address] Care Team Providers Care Tie Knitter Helper Name Role Phone Priyank Zepeda MD Primary Care Provider [phone] Encounter Details Date Type Department Care Team (Late st Contact Info) Description 10/03/2023 Hospital Follow-up Call [facility] Cardiovascular Care Unit [address] [place] [address] Chelsea Bishop RN Social History Tobacco Use Types Packs/Day Years Used Date Smoking Tobacco: Never [facility] Utilities Answer Date Recorded In the past 12 months has e electric, gas, oil, or water [employer] threatened to shut off services in your [...] any time in the past 12 m [facility], were you homeless or living in a custodial (including now)? No 09/28/2023 Comments Unknown Sex [...] on filedocumented in this encounter Care Teams Tie Knitter Helper Relationship Specialty Start Date End Date Priyank Zepeda MD [address] [place] [address] PCP - General INTERNAL MEDICINE 09/19/19 documented as of this encounter
[2025-01-07 16:38] LABS: Hematocrit 37.0 % (35.0-42.0); Hemoglobin 11.7 g/dL (11.7-13.8); Immature Granulocyte Percent A 0.4 % (0.0-0.0); Lymphocytes Absolute Auto 0.49 K/mm3 (1.10-4.50); Mean Corpuscular HGB Conc 31.6 g/dL (32-36); Mean Corpuscular Hemoglobin 29.5 pg (27.0-31.0); Mean Corpuscular Volume 93.4 fL (78.0-102.0); Nucleated Red Blood Cells Absolute Auto 0.00 K/mm3 (0.00-0.00); Nucleated Red Blood Cells Perc 0.0 % (0-0.0); Platelet Count Result 148 K/mm3 (150-420); Red Blood Count 3.96 M/mm3 (4.20-5.40); White Blood Count 4.8 K/mm3 (4.8-10.8)
[2025-01-09 14:08] LABS: Calprotectin, Fecal 93 ug/g (0-120)
[2025-01-09 15:09] LABS: Deamidated Gliadin Abs, IgA 16 units (0-19); Deamidated Gliadin Abs, IgG 4 units (0-19); Immunoglobulin A, Qn 601 mg/dL (87-352)
[2025-01-09 18:08] LABS: Lactoferrin, Fecal, Quant. 6.43 ug/mL(g) (0.00-7.24)
[2025-01-13 14:08] LABS: Saccharomyces cerevisiae, IgA 31.9 Units (0.0-24.9); Saccharomyces cerevisiae, IgG 74.2 Units (0.0-24.9)
== END 2025-01-07 10:40 | disposition home or self-care (01) ==
PROVIDERS: PCP Internal Medicine; Visit Provider Nurse Practitioner Family
DX: R30.0 Dysuria (principal); K62.89 Other specified diseases of anus and rectum; R63.4 Abnormal weight loss; K52.9 Noninfective gastroenteritis and colitis, unspecified
CPT/HCPCS: 36415; 82272; 82784; 83631; 83993; 85025; 85652; 86037; 86231; 86258; 86671

== ENCOUNTER 2025-01-08 10:51 | Outpatient (CLI) | payer OTHER, SELFPAY ==
--- OUTSIDE RECORDS SUMMARY | 2025-01-08 11:35 | XMS_ITS | Clinical Summary ---
Author Organization [facility] Address [address] [address] Phone Care Team Providers Care Communication Engineer Name Role Phone Priyank Zepeda MD Primary Care Provider [phone] Allergies No known active allergies Medications calcium [...] route 2 times per day Active Pancrelipase, Xqf-Iubj-Bqec, (CREON PO) Take 24,000 Units by mouth 3 times daily (with meals). Take 1 capsule by mouth 3 times daily with meals Active spironolactone (ALDACTONE) 25 MG Tablet Take 25 mg by mouth daily. Active BETA CAROTENE PO Take 7,500 mcg by mouth daily. Active Cyanocobalamin (VITAMIN B12 PO) Take 2,500 mcg by mouth daily. Active pancrelipase, lipase-protease- amylase, (Creon) [address] Particles Take 1 Capsule [...] Documents on File Type Date Recorded Patient Test Borer Expl anation Power of Warehousing Technician for Health Care 08/26/2024 9:18 AM POA-HC Power of Warehousing Technician for Health Care 08/26/2024 9:18 AM POA-HC Power of Warehousing Technician for Health Care 08/26/2024 9:13 AM POA-HC Power of Warehousing Technician for Health Care 08/26/2024 9:08 AM POA-HC Power of Warehousing Technician for Health Care 08/14/2024 12:10 PM POA HC 07/30/2024 * Full Code (Latest Code Status on File) Date Activated Date Inactivated Comments 08/13/2024 10:26 PM Care Teams Communication Engineer Relationship Specialty Start Date End Date Priyank Zepeda MD [address] [place] [address] PCP - General Internal Medicine 08/08/24
--- OUTSIDE RECORDS SUMMARY | 2025-01-08 11:35 | XMS_ITS | Encounter Summary ---
Author Organization [facility] Address [address] [facility] [place] [address] Phone Care Team Providers Care Cryogenics Engineer Name Role Phone Priyank Zepeda MD Primary Care Provider Encounter Details Date Type Department Care Team (Late Contact Info) Description 01/03/2020 Orders Only [facility] [address] [facility] [address] [place] [address] Kristofer Ortiz MD [address] [facility] [address] [place] [address] Chronic kidney disease stage 3 [...] (Late Contact Info) Description 04/22/2025 11:45 AM MARKETING LIAISON Office Visit [facility] [address] [facility] [facility] [address] [place] [address] Kristofer Ortiz MD [address] [place] [address] [address] documented as of this encounter Visit Diagnoses Diagnosis Chronic kidney disease stage 3 (HCC) documented in this encounter Care Teams Cryogenics Engineer Relationship Specialty Start Date End Date Priyank Zepeda MD [address] [place] [address] PCP - General Internal Medicine 05/17/19 documented as of this encounter
--- OUTSIDE RECORDS SUMMARY | 2025-01-08 11:35 | XMS_ITS | Encounter Summary ---
Author Organization [facility] Address [address] [facility] [address] Phone Care Team Providers Care Special Delivery Carrier Name Role Phone Priyank Zepeda MD Primary Care Provider [phone] Reason for Visit * Reason Onset Date Comments Medication Management 08/16/2024 Encounter Details Date Type Department Care Team (Late st Contact Info) Description 08/16/20[facility] [address] [place] [address] Eloisa Ruiz, PT Medication Management Social History [...] [facility] patient was observation at [facility] for low potassium from /08/15/24. [...] on filedocumented in this encounter Care Teams Special Delivery Carrier Relationship Specialty Start Date End Date Priyank Zepeda MD [address] [place] [address] PCP - General Internal Medicine 08/08/24 documented as of this encounter
--- OUTSIDE RECORDS SUMMARY | 2025-01-08 11:35 | XMS_ITS | Encounter Summary ---
Author Organization [facility] Address [address] [place] [address] Phone Care Team Providers Care Production Control Expediter Name Role Phone Priyank Zepeda MD Primary Care Provider [phone] Reason for Visit * Reason Onset Date Comments Medication Management 08/13/2024 Encounter Details Date Type Department Care Team (Late st Contact Info) Description 08/13/2024 [facility] [address] [place] [address] Eloisa Ruiz, PT Medication Management Social History [...] on filedocumented in this encounter Care Teams Production Control Expediter Relationship Specialty Start Date End Date Priyank Zepeda MD [address] [place] [address] PCP - General Internal Medicine 08/08/24 documented as of this encounter
--- OUTSIDE RECORDS SUMMARY | 2025-01-08 11:35 | XMS_ITS | Encounter Summary ---
Author Organization [facility] Address [address] [facility] [facility] [address] [place] [address] Phone Care Team Providers Care Vice President Underwriting Name Role Phone Priyank Zepeda MD Primary Care Provider [phone] Encounter Details Date Type Department Care Team (Late Contact Info) Description 12/06/2019 Orders Only [facility] [address] [facility] [address] [place] [address] Kristofer Ortiz MD [address] [facility] [address] [place] [address] Chronic kidney disease stage 3 [...] (Late Contact Info) Description 04/22/2025 11:45 AM SEMICONDUCTOR TESTING GROUP LEADER Office Visit [facility] [address] [facility] [address] [place] [address] Kristofer Ortiz MD [address] [place] [address] [address] documented as of this encounter Visit Diagnoses Diagnosis Chronic kidney disease stage 3 (HCC) documented in this encounter Care Teams Vice President Underwriting Relationship Specialty Start Date End Date Priyank Zepeda MD [address] [place] [address] PCP - General Internal Medicine 05/17/19 documented as of this encounter
--- OUTSIDE RECORDS SUMMARY | 2025-01-08 11:35 | XMS_ITS | Clinical Summary ---
Author Organization [facility] Address [address] [place] [address] Care Team Providers Care Health Plan Manager Name Role Phone Gayla Villar Primary Care Provider [phone] Social History Tobacco Use Types Packs/Day Years Used Date Smoking Tobacco: Never Assessed Comments Unknown Sex and Gender Information Value Date Recorded Sex Assigned at Not on file Legal Sex Female 4:22 PM RECREATIONAL SPORTS DIRECTOR Gender Identity Not on file Sexual Orientation [...] 75+ series) 2034 Insurance [place] Care Teams Health Plan Manager Relationship Specialty Start Date End Date Gayla Villar [address] [facility] [address] [place] [address] PCP - General 03/11/02
--- OUTSIDE RECORDS SUMMARY | 2025-01-08 11:35 | XMS_ITS | Encounter Summary ---
Author Organization [facility] Address [address] [place] [address] Phone Care Team Providers Care Termite Exterminator Name Role Phone Priyank Zepeda MD Primary Care Provider [phone] Encounter Details Date Type Department Care Team (Late st Contact Info) Description 09/04/2024 Lab [facility] [address] [place] [address] Priyank Zepeda MD [address] [place] [address] Secondary hyperparathyroidism of renal origin [...] - 12.00 10(3)/mcL 09/04/2024 6:44 PM CDT [facility] RBC 3.31(L) 3.80 - 5.30 10(6)/mcL 09/04/2024 6:44 PM CDT [facility] HEMOGLOBIN (HGB) 10.2(L) 12.0 - 15.8 g/dL 09/04/2024 6:44 PM CDT [facility] HEMATOCRIT (HCT) 32.3(L) 36.0 - 47.0 % 09/04/2024 6:44 PM CDT [facility] MCV 97.6(H) 82.0 - 96.0 fL 09/04/2024 6:44 PM CDT [facility] MCH 30.8 26.0 - 34.0 pg 09/04/2024 6:44 PM CDT [facility] MCHC 31.6 31.0 - 36.0 g/dL 09/04/2024 6:44 PM CDT [facility] PLATELET COUNT 240 140 - 440 10(3)/mcL 09/04/2024 6:44 PM CDT [facility] RDW 18.8(H) 11.8 - 15.5 % 09/04/2024 6:44 PM CDT [facility] MPV 9.8 9.7 - 12.4 fL 09/04/2024 6:44 PM CDT [facility] NEUTROPHILS 75.4(H) 47.0 - 73.0 % 09/04/2024 6:44 PM CDT [facility] LYMPHOCYTES 11.9(L) 18.0 - 42.0 % 09/04/2024 6:44 PM CD[address] [facility] MONOCYTES 9.3 4.0 - 12.0 % 09/04/2024 6:44 PM CDT [facility] EOSINOPHILS 2.8 0.0 - 5.0 % 09/04/2024 6:44 PM CD[address] [facility] BASOPHILS 0.6 0.0 - 1.0 % 09/04/2024 6:44 PM CDT [facility] ABSOLUTE NEUTROPHILS 3.48 1.60 - 7.70 10(3)/mcL 09/04/2024 6:44 PM CDT [facility] ABSOLUTE LYMPHOCYTES 0.55(L) 1.30 - 3.20 10(3)/mcL 09/04/2024 6:44 PM CDT [facility] ABSOLUTE MONOCYTES 0.43 0.20 - 1.00 10(3)/mcL 09/04/2024 6:44 PM CDT [facility] ABSOLUTE EOSINOPHIL 0.13 0.00 - 0.40 10(3)/mcL 09/04/2024 6:44 PM CDT [facility] ABSOLUTE BASOPHILS 0.03 0.00 - 0.10 10(3)/mcL 09/04/2024 6:44 PM CDT [facility] NRBC PER 100 WBC 0 09/05/19 6:44 PM CDT [facility] RESULTS ARE CONSISTENT WITH PERIPHERAL SMEAR REVIEW Yes 09/04/2024 6:44 PM CDT [facility] RBC MORPHOLOGY CONSISTENT WITH INDICES Yes 09/04/2024 6:44 PM CDT [facility] Blood No Phlebotomy Charged / Unknown 09/04/2024 4:55 PM CDT 09/04/2024 6:06 PM CDT us Priyank Zepeda MD HEMATOLOGY ORDERABLES Final R esult [facility] [address] [place] [address] * (ABNORMAL) PREALBUMIN (PAB) (09/04/2024 4:55 PM CDT) Pathologist [facility] PRE ALBUMIN 13(L) 14 - 37 mg/dL 09/05/2024 6:00 PM CDT [facility] Blood No Phlebotomy Charged / Unknown 09/04/2024 4:55 PM CDT 09/04/2024 6:06 PM CDT us Priyank Zepeda MD CHEMISTRY ORDERABLES Final Re sult [facility] [address] [place] [address], * VITAMIN D, 25 HYDROXY TOTAL (09/04/2024 4:55 PM CDT) VITAMIN D, 25 HYDROX 19.0 ng/mL 09/04/2024 6:55 PM CDT [facility] Blood No Phlebotomy Charged / Unknown 09/04/2024 4:55 PM CDT 09/04/2024 6:06 PM CDT Narrative [facility] - 09/04/2024 6:55 PM CDT Published reference ranges for Vitamin D vary depending on time and place and method of testing, and on patient's age, sex, ethnicity and levels of other measured analytes such as parathormone, calcium and phosphorus. The result should be evaluated in conjunction with clinical findings and suspicions. [place] of [employer] and Endocrine Clinical Practice Guidelines: Status Vitamin D levels (ng/mL) Deficient <=20 At risk of inadequacy 21-29 Sufficient 30-100 Centers of Disease Control and Prevention Guidelines: Status Vitamin D levels (ng/mL) Deficient <13 At risk of inadequacy 13-19 Sufficient 20-50 Possibly harmful >50 References: [place] of [employer], 2010 Dietary reference intakes for calcium and vitamin D. [place]: The National Academies Press. Yo M, Blayne N, Sara LEES, et al., Evaluation, treatment, and prevention of Vitamin D deficiency: an Endocrinology Clinical Practice Guideline. JCEM 2011 96: 7 6934-8752. Kiet A, Dario C, Yemi D, et al., Vitamin D Status: [place], , SDHS data brief, no. 59, [place]: National Center for Health Statistics. 2011. us Priyank Zepeda MD CHEMISTRY ORDERABLES Final Re sult [facility] [place] [address] * (ABNORMAL) THYROID STIMULATING HORMONE (TSH) (09/04/2024 4:55 PM CDT) TSH 9.593(H) 0.300 - 5.000 mIU/L 09/04/2024 6:56 PM CDT [facility] Blood No Phlebotomy Charged / Unknown 09/04/2024 4:55 PM CDT 09/04/2024 6:06 PM CDT us Priyank Zepeda MD CHEMISTRY ORDERABLES Final Re sult [facility] [address] [place] [address] * (ABNORMAL) PHOSPHORUS (PO4) (09/04/2024 4:55 PM CDT) PHOSPHORUS 2.3(L) 2.5 - 4.5 mg/dL 09/04/2024 6:39 PM CDT [facility] Blood No Phlebotomy Charged / Unknown 09/04/2024 4:55 PM CDT 09/04/2024 6:06 PM CDT us Priyank Zepeda MD CHEMISTRY ORDERABLES Final Re sult Performing Organization Address City/[facility]/ZIP Co de Phone Number [facility] [address] [place] [address] * (ABNORMAL) CMP (COMPREHENSIVE METABOLIC PANEL) (09/04/2024 4:55 PM CDT) SODIUM 143 136 - 145 mmol/L 09/04/2024 6:39 PM CDT [facility] POTASSIUM 4.0 3.5 - 5.1 mmol/L 09/04/2024 6:39 PM CDT [facility] CHLORIDE 114(H) 98 - 107 mmol/L 09/04/2024 6:39 PM CDT [facility] CO2, VENOUS 23 22 - 30 mmol/L 09/04/2024 6:39 PM CDT [facility] ANION GAP 10.0 <18.0 mmol/L 09/04/2024 6:39 PM CDT [facility] GLUCOSE 87 70 - 99 mg/dL 09/04/2024 6:39 PM CDT [facility] BUN 10 10 - 20 mg/dL 09/04/2024 6:39 PM CDT [facility] CREATININE, BLOOD 0.77 0.60 - 1.00 mg/dL 09/04/2024 6:39 PM [facility] BUN/CREATININE RATIO 13 12 - 20 ratio 09/04/2024 6:39 PM [facility] TOTAL PROTEIN 6.8 6.0 - 8.0 g/dL 09/04/2024 6:39 PM [facility] ALBUMIN 2.7(L) 3.5 - 5.0 g/dL 09/04/2024 6:39 PM [facility] A/G RATIO 0.7(L) 1.0 - 2.2 09/04/2024 6:39 PM [facility] CALCIUM 8.2(L) 8.7 - 10.5 mg/dL 09/04/2024 6:39 PM [facility] T BILI 0.4 0.2 - 1.2 mg/dL 09/04/2024 6:39 PM [facility] SGOT (AST) 52(H) <43 U/L 09/04/2024 6:39 PM [facility] SGPT (ALT) 37 <56 U/L 09/04/2024 6:39 PM [facility] ALKALINE PHOSPHATASE 137 40 - 150 U/L 09/04/2024 6:39 PM [facility] GFR, ESTIMATED >60 >=60 09/04/2024 6:39 PM [facility] Comment: Creatinine Clearance is the preferred criteria for selecting drug dose adjustments in renally impaired patients. The GFR is provided as additional pertinent clinical information. GFR is reported in mL/min/1.73 sq m. Calculation based on the Chronic Kidney Disease Epidemiology Collaboration (CKD- EPI) equation refit without adjustment for race. GFR, EST. >60 >=60 025 6:39 PM [facility] GFR, EST. NONAFRICAN >60 >=60 09/04/2024 6:39 PM [facility] Blood No Phlebotomy Charged / Unknown 09/04/2024 4:55 PM CDT 09/04/2024 6:06 PM CDT us Priyank Zepeda MD CHEMISTRY ORDERABLES Final Re sult [facility] [address] [place] [address] documented in this encounter Visit Diagnoses Diagnosis Secondary hyperparathyroidism of renal origin (HCC) Secondary hyperparathyroidism (of renal origin) Vitamin D deficiency, unspecified Hypothyroidism, unspecified documented in this encounter Care Teams Termite Exterminator Relationship Specialty Start Date End Date Priyank Zepeda MD [address] [place] [address] PCP - General Internal Medicine 08/08/24 documented as of this encounter
--- OUTSIDE RECORDS SUMMARY | 2025-01-08 11:35 | XMS_ITS | Clinical Summary ---
Author Organization [facility] Facility Address [address] [address] Care Team Providers Care Installation Tech Name Role Phone Priyank Zepeda MD Primary Care Provider [phone] Allergies Active Allergy Reactions Criticality Noted Date [...] 5 Active Cholecalciferol (Vitamin D3) 1.25 MG (32901 UT) capsule Take 50,000 Units by mouth [...] Description 10/22/2024 10:45 AM CDT Office Visit [facility] [address] [facility] [address] [place] [address] Kristofer Ortiz MD Chronic kidney disease, stage 2 (mild) (Primary Dx); Hypertension; Anemia in chronic kidney disease; Secondary hyperparathyroidism of renal origin (HCC) 10/22/2024 Orders Only [facility] [address] [facility] [address] [place] [address] Ana Duran RN 10/10/2024 Documentation Only [facility] [address] [place] [address] Kristofer Ortiz MD from Last 3 [...] CDT Respiratory Rate 18 05/15/2018 11:00 AM COORDINATOR OF PLACEMENT Oxygen Saturation 99% 10/22/2024 10:46 AM CDT Inhaled Oxygen Concentration - - Weight 63 kg (139 lb) 10/22/2024 10:46 AM CDT Height 160 cm (5' 3) 10/22/2024 10:46 AM CDT Body Mass Index 24.62 10/22/2024 10:46 AM CDT Plan of Treatment Upcoming Encounters Date Type Department Care Team (Late st Contact Info) Description 04/22/2025 11:45 AM COORDINATOR OF PLACEMENT Office Visit [facility] [address] [facility] [address] [facility] [address] [place] [address] Kristofer Ortiz MD [address] [facility] [address] [address] [place] [address] Health Maintenance Due Date Last Done Comments Breast Cancer Screening 1960 Pneumococcal Vaccine: 50+ Years (1 of 2 - PCV) 1978 Influenza Vaccine (#1) 2025 , 03/27/2023, 03/06/2022, Additional history exists Colorectal Cancer Screening: Colonoscopy Discontinued 12/14/2023, 11/04/2021 Hepatitis B Vaccine Aged Out No longe r eligible based on patient's age to complete this topic Insurance [facility] Advance Directives Documents on File Type Date Recorded Patient Academic Vice President Expl anation Power of Project Controller 10/25/2021 11:10 AM Othe r - POA Power of Project Controller 10/25/2021 11:10 AM Othe r - POA Care Teams Installation Tech Relationship Specialty Start Date End Date Priyank Zepeda MD [address] [place] [address] PCP - General Internal Medicine 05/17/19
--- OUTSIDE RECORDS SUMMARY | 2025-01-08 11:35 | XMS_ITS | Clinical Summary ---
Author Organization [facility] [employer] Address [address] [place] [address] Care Team Providers Care Marketing Database Consultant Name Role Phone Priyank Zepeda MD Primary Care Provider [phone] Source Comments [facility],non-owned Affiliates and Associated Physician Practices is amultiple site organization consisting of ambulatory clinics and hospital sitesin [place], [place], [place] and [place]. This disclosure is being madepursuant to the Care Everywhere program and may not contain all information available regarding this patient. Last updated 18.[facility] [employer] Allergies Active Allergy Reactions Criticality Noted Date [...] once daily 42 Each 08/07/2024 1:10 PM TURBO OPERATOR 5 Active ferrous sulfate 325 (65 FE) MG tablet Take 1 (one) tablet by mouth once daily after lunch 30 tablet 08/07/2024 1:10 PM TURBO OPERATOR 5 Active folic acid (Folvite) 1 MG tablet Take 1 (one) tablet by mouth once daily 30 tablet 08/07/2024 1:10 PM TURBO OPERATOR 5 Active pantoprazole EC (Protonix) 40 MG tablet Take 1 (one) tablet by mouth 2 times daily, before breakfast and supper 60 tablet 08/07/2024 1:10 PM TURBO OPERATOR 5 Active sucralfate (Carafate) 1 GM/10ML suspension Take 10 mL by mouth 4 times daily - before meals & nightly 420 mL 08/07/2024 1:10 PM TURBO OPERATOR 5 Active Cholecalciferol (vitamin D3) 1.25 MG (45988 UT) capsule Take 1 (one) capsule by mouth every 7 days 5 capsule 5 Active furosemide (Lasix) 40 MG tablet Take 1 (one) tablet by mouth once daily 30 tablet 08/07/2024 1:10 PM TURBO OPERATOR 5 Active Calcium Carbonate Antacid (calcium carbonate, 500 mg elemental Ca/5 mL,) 1250 MG/5ML suspension Take 10 mL by mouth 3 times daily with meals 473 mL 1 5 Active pancrelipase (Creon 24,000) 01921-[address] units capsule Take 1 (one) capsule by [...] medical care, and heating? Somewhat hard 07/28/2024 [facility] of Occupat ional Health - Occupational Stress [...] in a residential (including now)? No 07/28/2024 Comments Unknown Sex and Gender Information Value Date Recorded Sex Assigned at Not on file Legal Sex Female 9:40 AM CDT Gender Identity Not on file Sexual Orientation Not on file Last Filed Vital Signs Vital Sign Reading Time Taken Comments Blood Pressure 112/78 08/07/2024 2:44 PM TURBO OPERATOR Pulse 93 08/07/2024 2:44 PM TURBO OPERATOR Temperature 37.5 C (99.5 F) 08/07/2024 11:33 AM TURBO OPERATOR Respiratory Rate 18 08/07/2024 11:3 3 AM TURBO OPERATOR Oxygen Saturation 97% 08/07/2024 2:44 PM TURBO OPERATOR Inhaled Oxygen Concentration - - Weight 87.5 kg (192 lb 14.4 oz) 025 12:04 AM TURBO OPERATOR Height 165.1 cm (5' 5) 07/28/2024 4:01 PM TURBO OPERATOR Body Mass Index 32.1 07/28/2024 4:01 PM TURBO OPERATOR Plan of Treatment Health Maintenance Due [...] patient's age to complete this topic Insurance [facility] Advance Directives Documents on File Type Date Recorded Patient Rn Employee Health Expl anation Adv Directive/Living Will/POA 08/08/2024 10:51 PM Adv Directive/Living Will/POA 08/01/2024 8:23 PM Adv Directive/Living Will/POA 07/31/2024 7:48 PM * Full Code (Latest Code Status on File) Date Activated Date Inactivated Comments 07/28/2024 3:11 PM 08/07/2024 5:49 PM Care Teams Marketing Database Consultant Relationship Specialty Start Date End Date Priyank Zepeda MD [address] [place] [address] PCP - General 02/23/22
== END 2025-01-08 10:52 | disposition home or self-care (01) ==
PROVIDERS: PCP Internal Medicine; Visit Provider Internal Medicine
DX: R19.7 Diarrhea, unspecified (principal)
CPT/HCPCS: 99199

== ENCOUNTER 2025-01-14 10:20 | Outpatient (CLI) | payer OTHER, SELFPAY ==
--- OUTSIDE RECORDS SUMMARY | 2025-01-14 11:09 | XMS_ITS | Encounter Summary ---
Author Organization [facility] Address [address] [place] [address] Phone Care Team Providers Care Provider Network Mgr Name Role Phone Priyank Zepeda MD Primary Care Provider [phone] Reason for Visit * Reason Onset Date Comments Medication Management 08/13/2024 Encounter Details Date Type Department Care Team (Late st Contact Info) Description 08/13/20[facility] [address] [place] [address] Eloisa Ruiz, PT Medication Management Social History [...] on filedocumented in this encounter Care Teams Provider Network Mgr Relationship Specialty Start Date End Date Priyank Zepeda MD [address] [place] [address] PCP - General Internal Medicine 08/08/24 documented as of this encounter
--- OUTSIDE RECORDS SUMMARY | 2025-01-14 11:09 | XMS_ITS | Encounter Summary ---
Author Organization [facility] Address [address] [place] [address] Care Team Providers Care Maintenance Man Name Role Phone Priyank Zepdea MD Primary Care Provider [phone] Encounter Details Date Type Department Care Team (Late st Contact Info) Description 10/03/2023 Hospital Follow-up Call [facility] Unit [address] [place] [address] Chelsea Bishop RN Social History Tobacco Use Types Packs/Day Years Used Date Smoking Tobacco: Never [facility] Utilities Answer Date Recorded In the past 12 months has e electric, gas, oil, or water [employer] threatened to shut off services in your [...] on filedocumented in this encounter Care Teams Maintenance Man Relationship Specialty Start Date End Date Priyank Zepeda MD [address] [place] [address] PCP - General INTERNAL MEDICINE 09/19/19 documented as of this encounter
--- OUTSIDE RECORDS SUMMARY | 2025-01-14 11:09 | XMS_ITS | Encounter Summary ---
Author Organization [facility] Address [address] [facility] [address] Phone Care Team Providers Care Mechanical Fitter Name Role Phone Priyank Zepeda MD Primary Care Provider [phone] Encounter Details Date Type Department Care Team (Late st Contact Info) Description 09/04/2024 [facility] [address] [place] [address] Priyank Zepeda MD [address] [place] [address] Secondary hyperparathyroidism of renal origin [...] - 47.0 % 09/04/2024 6:[address] [facility] MCV 97.6(H) 82.0 - 96.0 fL 09/04/2024 6:44 PM CDT [facility] MCH 30.8 26.0 - 34.0 pg 09/04/2024 6:[address] [facility] MCHC 31.6 31.0 - 36.0 g/dL 09/04/2024 6:[address] [facility] PLATELET COUNT 240 140 - 440 10(3)/mcL 09/04/2024 6:[address] [facility] RDW 18.8(H) 11.8 - 15.5 % 09/04/2024 6:[address] [facility] MPV 9.8 9.7 - 12.4 fL 09/04/2024 6:[address] [facility] NEUTROPHILS 75.4(H) 47.0 - 73.0 % 09/04/2024 6:[address] [facility] LYMPHOCYTES 11.9(L) 18.0 - 42.0 % 09/04/2024 6:[address] [facility] MONOCYTES 9.3 4.0 - 12.0 % 09/04/2024 6:[address] [facility] EOSINOPHILS 2.8 0.0 - 5.0 % 09/04/2024 6:[address] [facility] BASOPHILS 0.6 0.0 - 1.0 % 09/04/2024 6:[address] [facility] ABSOLUTE NEUTROPHILS 3.48 1.60 - 7.70 10(3)/mcL 09/04/2024 6:[address] [facility] ABSOLUTE LYMPHOCYTES 0.55(L) 1.30 - 3.20 10(3)/mcL 09/04/2024 6:[address] [facility] ABSOLUTE MONOCYTES 0.43 0.20 - 1.00 10(3)/mcL 09/04/2024 6:[address] [facility] ABSOLUTE EOSINOPHIL 0.13 0.00 - 0.40 10(3)/mcL 09/04/2024 6:44 PM CDT [facility] ABSOLUTE BASOPHILS 0.03 0.00 - 0.10 10(3)/mcL 09/04/2024 6:[address] [facility] NRBC PER 100 WBC [...] Zepeda MD HEMATOLOGY ORDERABLES Final R esult [facility] [address] [place] [address] * (ABNORMAL) PREALBUMIN (PAB) (09/04/2024 4:55 PM CDT) Pathologist [facility] PRE ALBUMIN 13(L) 14 - 37 mg/dL 09/05/2024 6:00 PM CDT [facility] Blood No Phlebotomy Charged / Unknown 09/04/2024 4:55 PM CDT 09/04/2024 6:06 PM CDT us Priyank Zepeda MD CHEMISTRY ORDERABLES Final Re sult [facility] [address] [place] [address], * VITAMIN D, 25 HYDROXY TOTAL (09/04/2024 4:55 PM CDT) VITAMIN D, 25 HYDROX 19.0 ng/mL 09/04/2024 6:[address] [facility] Blood No Phlebotomy [...] in conjunction with clinical findings and suspicions. [place] of [employer] and Endocrine Clinical Practice Guidelines: Status Vitamin D levels (ng/mL) Deficient <=20 At risk of inadequacy 21-29 Sufficient 30-100 Centers of Disease Control and Prevention Guidelines: Status Vitamin D levels (ng/mL) Deficient <13 At risk of inadequacy 13-19 Sufficient 20-50 Possibly harmful >50 References: [place] of [employer], 2010 Dietary reference intakes for calcium and vitamin D. [place]: The National Academies Press. Yo M, Blayne N, Sara LEES, et al., Evaluation, treatment, and prevention of Vitamin D deficiency: an Endocrinology Clinical Practice Guideline. JCEM 2011 96: 7 1788-4881. Kiet A, Dario C, Yemi D, et al., Vitamin D Status: [place], , PAHS data brief, no. 59, [place]: National Center for Health Statistics. 2011. us Priyank Zepeda MD CHEMISTRY ORDERABLES Final Re sult [facility] [place] [address] * (ABNORMAL) THYROID STIMULATING HORMONE (TSH) (09/04/2024 4:55 PM CDT) TSH 9.593(H) 0.300 - 5.000 mIU/L 09/04/2024 6:56 PM CDT [facility] Blood No Phlebotomy Charged / Unknown 09/04/2024 4:55 PM CDT 09/04/2024 6:06 PM CDT us Priyank Zepeda MD CHEMISTRY ORDERABLES Final Re sult [facility] [address] [place] [address] * (ABNORMAL) PHOSPHORUS (PO4) (09/04/2024 4:55 PM CDT) PHOSPHORUS 2.3(L) 2.5 - 4.5 mg/dL 09/04/2024 6:39 PM CDT [facility] Blood No Phlebotomy Charged / Unknown 09/04/2024 4:55 PM CDT 09/04/2024 6:06 PM CDT us Priyank Zepeda MD CHEMISTRY ORDERABLES Final Re sult Performing Organization Address City/[facility]/ZIP Co de Phone Number [facility] [address] [place] [address] * (ABNORMAL) CMP (COMPREHENSIVE METABOLIC PANEL) (09/04/2024 4:55 PM CDT) SODIUM 143 136 - 145 mmol/L 09/04/2024 6:[address] [facility] POTASSIUM 4.0 3.5 - 5.1 mmol/L 09/04/2024 6:[address] [facility] CHLORIDE 114(H) 98 - 107 mmol/L 09/04/2024 6:[address] [facility] CO2, VENOUS 23 22 - 30 mmol/L 09/04/2024 6:[address] [facility] ANION GAP 10.0 <18.0 mmol/L 09/04/2024 6:[address] [facility] GLUCOSE 87 70 - 99 mg/dL 09/04/2024 6:[address] [facility] BUN 10 10 - 20 mg/dL 09/04/2024 6:[address] [facility] CREATININE, BLOOD 0.77 0.60 - 1.00 mg/dL 09/04/2024 6:39 PM [facility] BUN/CREATININE RATIO 13 12 - 20 ratio 09/04/2024 6:39 PM [facility] TOTAL PROTEIN 6.8 6.0 - 8.0 g/dL 09/04/2024 6:39 PM [facility] ALBUMIN 2.7(L) 3.5 - 5.0 g/dL 09/04/2024 6:39 PM [facility] A/G RATIO 0.7(L) 1.0 - 2.2 09/04/2024 6:39 PM [facility] CALCIUM 8.2(L) 8.7 - 10.5 mg/dL 09/04/2024 6:39 PM [facility] T BILI 0.4 0.2 - 1.2 mg/dL 09/04/2024 6:39 PM [facility] SGOT (AST) 52(H) <43 U/L 09/04/2024 6:39 PM [facility] SGPT (ALT) 37 <56 U/L 09/04/2024 6:39 PM [facility] ALKALINE PHOSPHATASE 137 40 - 150 U/L 09/04/2024 6:39 PM [facility] GFR, ESTIMATED >60 >=60 09/04/2024 6:39 PM [facility] Comment: Creatinine Clearance is the preferred criteria for selecting drug dose adjustments in renally impaired patients. The GFR is provided as additional pertinent clinical information. GFR is reported in mL/min/1.73 sq m. Calculation based on the Chronic Kidney Disease Epidemiology Collaboration (CKD- EPI) equation refit without adjustment for race. GFR, EST. >60 >=60 025 6:39 PM [facility] GFR, EST. NONAFRICAN >60 >=60 09/04/2024 6:39 PM [facility] Blood No Phlebotomy Charged / Unknown 09/04/2024 4:55 PM CDT 09/04/2024 6:06 PM CDT us Priyank Zepeda MD CHEMISTRY ORDERABLES Final Re sult [facility] [address] [place] [address] documented in this encounter Visit Diagnoses Diagnosis Secondary hyperparathyroidism of renal origin (HCC) Secondary hyperparathyroidism (of renal origin) Vitamin D deficiency, unspecified Hypothyroidism, unspecified documented in this encounter Care Teams Mechanical Fitter Relationship Specialty Start Date End Date Priyank Zepeda MD [address] [place] [address] PCP - General Internal Medicine 08/08/24 documented as of this encounter
--- OUTSIDE RECORDS SUMMARY | 2025-01-14 11:09 | XMS_ITS | Encounter Summary ---
Author Organization [facility] Address [address] [facility] [place] [address] Phone Care Team Providers Care Overhead Crane Technician Name Role Phone Priyank Zepeda MD Primary Care Provider [phone] Reason for Visit * Reason Onset Date Comments Medication Management 08/16/2024 Encounter Details Date Type Department Care Team (Late st Contact Info) Description 08/16/20[facility] [address] [place] [address] Eloisa Ruiz, PT Medication Management Social History [...] [facility] patient was observation at [facility] for low potassium from /08/15/24. A [...] on filedocumented in this encounter Care Teams Overhead Crane Technician Relationship Specialty Start Date End Date Priyank Zepeda MD [address] [place] [address] PCP - General Internal Medicine 08/08/24 documented as of this encounter
--- OUTSIDE RECORDS SUMMARY | 2025-01-14 11:09 | XMS_ITS | Clinical Summary ---
Author Organization [facility] Address [address] [place] [address] Care Team Providers Care Branch Maker Name Role Phone Priyank Zepeda MD Primary Care Provider [phone] Source Comments [facility],non-owned Affiliates and Associated Physician Practices is amultiple site organization consisting of ambulatory clinics and hospital sitesin [place], [place] and [place]. This disclosure is being madepursuant to the Care Everywhere program and may not contain all information available regarding this patient. Last updated 18.[facility] Allergies Active Allergy Reactions Criticality Noted Date [...] once daily 42 Each 08/07/2024 1:10 PM LONG TERM CARE PHARMACIST 5 Active ferrous sulfate 325 (65 FE) MG tablet Take 1 (one) tablet by mouth once daily after lunch 30 tablet 08/07/2024 1:10 PM LONG TERM CARE PHARMACIST 5 Active folic acid (Folvite) 1 MG tablet Take 1 (one) tablet by mouth once daily 30 tablet 08/07/2024 1:10 PM LONG TERM CARE PHARMACIST 5 Active pantoprazole EC (Protonix) 40 MG tablet Take 1 (one) tablet by mouth 2 times daily, before breakfast and supper 60 tablet 08/07/2024 1:10 PM LONG TERM CARE PHARMACIST 5 Active sucralfate (Carafate) 1 GM/10ML suspension Take 10 mL by mouth 4 times daily - before meals & nightly 420 mL 08/07/2024 1:10 PM LONG TERM CARE PHARMACIST 5 Active Cholecalciferol (vitamin D3) 1.25 MG (00440 UT) capsule Take 1 (one) capsule by mouth every 7 days 5 capsule 5 Active furosemide (Lasix) 40 MG tablet Take 1 (one) tablet by mouth once daily 30 tablet 08/07/2024 1:10 PM LONG TERM CARE PHARMACIST 5 Active Calcium Carbonate Antacid (calcium carbonate, 500 mg elemental Ca/5 mL,) 1250 MG/5ML suspension Take 10 mL by mouth 3 times daily with meals 473 mL 1 5 Active pancrelipase (Creon 24,000) 23093-65[address] units capsule Take 1 (one) capsule by [...] medical care, and heating? Somewhat hard 07/28/2024 [facility] [place] of Occupat ional Health - Occupational Stress [...] [place] [facility] [place] (including now)? No 07/28/2024 Comments Unknown Sex and Gender Information Value Date Recorded Sex Assigned at Not on file Legal Sex Female 9:40 AM CDT Gender Identity Not on file Sexual Orientation Not on file Last Filed Vital Signs Vital Sign Reading Time Taken Comments Blood Pressure 112/78 08/07/2024 2:44 PM LONG TERM CARE PHARMACIST Pulse 93 08/07/2024 2:44 PM LONG TERM CARE PHARMACIST Temperature 37.5 C (99.5 F) 08/07/2024 11:33 AM LONG TERM CARE PHARMACIST Respiratory Rate 18 08/07/2024 11:3 3 AM LONG TERM CARE PHARMACIST Oxygen Saturation 97% 08/07/2024 2:44 PM LONG TERM CARE PHARMACIST Inhaled Oxygen Concentration - - Weight 87.5 kg (192 lb 14.4 oz) 025 12:04 AM LONG TERM CARE PHARMACIST Height 165.1 cm (5' 5) 07/28/2024 4:01 PM LONG TERM CARE PHARMACIST Body Mass Index 32.1 07/28/2024 4:01 PM LONG TERM CARE PHARMACIST Plan of Treatment Health Maintenance Due Date [...] patient's age to complete this topic Insurance [facility] Advance Directives Documents on File Type Date Recorded Patient Helmet Coverer Expl anation Adv Directive/Living Will/POA 08/08/2024 10:51 PM Adv Directive/Living Will/POA 08/01/2024 8:23 PM Adv Directive/Living Will/POA 07/31/2024 7:48 PM * Full Code (Latest Code Status on File) Date Activated Date Inactivated Comments 07/28/2024 3:11 PM 08/07/2024 5:49 PM Care Teams Branch Maker Relationship Specialty Start Date End Date Priyank Zepeda MD [address] [place] [address] PCP - General 02/23/22
--- OUTSIDE RECORDS SUMMARY | 2025-01-14 11:09 | XMS_ITS | Encounter Summary ---
Author Organization [facility] Address [address] [place] [address] Phone Care Team Providers Care Metal Tile Setter Name Role Phone Priyank Zepeda MD Primary Care Provider [phone] Encounter Details Date Type Department Care Team (Late Contact Info) Description 12/06/2019 Orders Only [facility]. [address] [place] [address] Kristofer Ortiz MD [address] [place] [address] Chronic kidney disease stage 3 [...] (Late Contact Info) Description 04/22/2025 11:45 AM GAS METER READER Office Visit [facility] [address] [place] [address] Kristofer Ortiz MD [address] [place] [address] [address] documented as of this encounter Visit Diagnoses Diagnosis Chronic kidney disease stage 3 (HCC) documented in this encounter Care Teams Metal Tile Setter Relationship Specialty Start Date End Date Priyank Zepeda MD [address] [place] [address] PCP - General Internal Medicine 05/17/19 documented as of this encounter
--- OUTSIDE RECORDS SUMMARY | 2025-01-14 11:09 | XMS_ITS | Clinical Summary ---
Author Organization [facility] Address [address] [place] [address] Care Team Providers Care Bone Crusher Name Role Phone Priyank Zepeda MD Primary Care Provider [phone] Allergies Active Allergy Reactions Criticality Noted Date [...] Tobacco: Never [facility] Nfoshareities Answer Date Recorded In the past 12 months has e [employer], [employer], oil, or water [employer] threatened to shut off services in your [...] any time in the past 12 [facility], were you homeless or living in a penitentiary (including now)? No 11/17/2023 Comments Unknown Sex [...] 1:27 AM 10/02/2023 3:59 PM Care Teams Bone Crusher Relationship Specialty Start Date End Date Priyank Zepeda MD [address] [place] [address] PCP - General INTERNAL MEDICINE 09/19/19
--- OUTSIDE RECORDS SUMMARY | 2025-01-14 11:09 | XMS_ITS | Clinical Summary ---
Author Organization [facility] Address [address] [address] Care Team Providers Care Cold Mill Supervisor Name Role Phone Priyank Zepeda MD Primary Care Provider [phone] Allergies Active Allergy Reactions Criticality Noted Date [...] 5 Active Cholecalciferol (Vitamin D3) 1.25 MG (49391 UT) capsule Take 50,000 Units by mouth [...] Description 10/22/2024 10:45 AM CDT Office Visit [facility]y. [address] [place] [address] Kristofer Ortiz MD Chronic kidney disease, stage 2 (mild) (Primary Dx); Hypertension; Anemia in chronic kidney disease; Secondary hyperparathyroidism of renal origin (HCC) 10/22/2024 Orders Only [facility]. [address] [place] [address] Ana Duran RN from Last 3 Months Family History Medical [...] CDT Respiratory Rate 18 05/15/2018 11:00 AM FACING SLITTER Oxygen Saturation 99% 10/22/2024 10:46 AM CDT Inhaled Oxygen Concentration - - Weight 63 kg (139 lb) 10/22/2024 10:46 AM CDT Height 160 cm (5' 3) 10/22/2024 10:46 AM CDT Body Mass Index 24.62 10/22/2024 10:46 AM CDT Plan of Treatment Upcoming Encounters Date Type Department Care Team (Late st Contact Info) Description 04/22/2025 11:45 AM FACING SLITTER Office Visit [facility]. [address] [place] [address] Kristofer Ortiz MD [address] [place] [address] Health Maintenance Due Date Last Done Comments Breast Cancer Screening 1960 Pneumococcal Vaccine: 50+ Years (1 of 2 - PCV) 1978 Influenza Vaccine (#1) 2025 4, 03/27/2023, 03/06/2022, Additional history exists Colorectal Cancer Screening: Colonoscopy Discontinued 12/14/2023, 11/04/2021 Hepatitis B Vaccine Aged Out No longe r eligible based on patient's age to complete this topic Insurance [facility] Advance Directives Documents on File Type Date Recorded Patient Division Engineer Expl anation Power of Biomedical Electronics Technician 10/25/2021 11:10 AM Othe r - POA Power of Biomedical Electronics Technician 10/25/2021 11:10 AM Othe r - POA Care Teams Cold Mill Supervisor Relationship Specialty Start Date End Date Priyank Zepeda MD [address] [place] [address] PCP - General Internal Medicine 05/17/19
--- OUTSIDE RECORDS SUMMARY | 2025-01-14 11:09 | XMS_ITS | Clinical Summary ---
Author Organization [facility] Address [address] [address] Phone Care Team Providers Care Nurse Recruiter Name Role Phone Priyank Zepeda MD Primary Care Provider [phone] Allergies No known active allergies Medications calcium [...] route 2 times per day Active Pancrelipase, Kxy-Larh-Wdgo, (CREON PO) Take 24,000 Units by mouth 3 times daily (with meals). Take 1 capsule by mouth 3 times daily with meals Active spironolactone (ALDACTONE) 25 MG Tablet Take 25 mg by mouth daily. Active BETA CAROTENE PO Take 7,500 mcg by mouth daily. Active Cyanocobalamin (VITAMIN B12 PO) Take 2,500 mcg by mouth daily. Active pancrelipase, lipase-protease- amylase, (Creon) [address] Particles Take 1 Capsule [...] Documents on File Type Date Recorded Patient Cook Helper Meat Expl anation Power of Prosthetic Dentist for Health Care 08/26/2024 9:18 AM POA-HC Power of Prosthetic Dentist for Health Care 08/26/2024 9:18 AM POA-HC Power of Prosthetic Dentist for Health Care 08/26/2024 9:13 AM POA-HC Power of Prosthetic Dentist for Health Care 08/26/2024 9:08 AM POA-HC Power of Prosthetic Dentist for Health Care 08/14/2024 12:10 PM POA HC 07/30/2024 * Full Code (Latest Code Status on File) Date Activated Date Inactivated Comments 08/13/2024 10:26 PM Care Teams Nurse Recruiter Relationship Specialty Start Date End Date Priyank Zepeda MD [address] [place] [address] PCP - General Internal Medicine 08/08/24
--- OUTSIDE RECORDS SUMMARY | 2025-01-14 11:09 | XMS_ITS | Encounter Summary ---
Author Organization [facility] Address [address] [facility] [facility] [place] [address] Phone Care Team Providers Care Green Chain Puller Name Role Phone Priyank Zepeda MD Primary Care Provider [phone] Encounter Details Date Type Department Care Team (Late Contact Info) Description 01/03/2020 Orders Only [facility] [address] [facility] [facility] [address] [place] [address] Kristofer Ortiz MD [address] [facility] [facility] [address] [place] [address] Chronic kidney disease stage 3 [...] (Late Contact Info) Description 04/22/2025 11:45 AM DOPE WEIGH OPERATOR Office Visit [facility] [address] [facility] [place] [address] Kristofer Ortiz MD [address] [place] [address] [address] documented as of this encounter Visit Diagnoses Diagnosis Chronic kidney disease stage 3 (HCC) documented in this encounter Care Teams Green Chain Puller Relationship Specialty Start Date End Date Priyank Zepeda MD [address] [place] [address] PCP - General Internal Medicine 05/17/19 documented as of this encounter
[2025-01-14 11:24] LABS: Alanine Aminotransferase 97 U/L (6-35); Albumin Level 3.8 g/dL (3.5-5.1); Alkaline Phosphatase 146 U/L (38-126); Anion Gap 6 mmol/L (4-12); Aspartate Amino Transferase 85 U/L (14-36); Bilirubin,Total 0.7 mg/dL (0.2-1.3); Blood Urea Nitrogen 21 mg/dL (7-17); Calcium 9.2 mg/dL (8.4-10.2); Carbon Dioxide 24 mmol/L (22-30); Chloride 112 mmol/L (98-107); Estimated Glomerular Filt Rate 60; Glucose 101 mg/dL (65-110); Osmolality Calculated 297 mOsm/kg (285-295); Potassium 4.5 mmol/L (3.4-5.0); Sodium 142 mmol/L (137-145); Total Protein 7.3 g/dL (6.3-8.2)
== END 2025-01-14 10:21 | disposition home or self-care (01) ==
PROVIDERS: PCP Internal Medicine
DX: K76.6 Portal hypertension (principal)
CPT/HCPCS: 36415; 80053

== ENCOUNTER 2025-01-19 11:17 | Emergency (ER) | payer OTHER, SELFPAY ==
--- NOTE | ~2025-01-19 | XR_ITS ---
Right Shoulder Technique: AP and scapular Y views were obtained. Clinical History: Pain Findings: No fracture or dislocation is seen. Osseous alignment is anatomic. The glenohumeral and acr omioclavicular joint spaces are preserved. Soft tissues are unremarkable. Impression: Unremarkable right shoulder radiographs. Reviewed, dictated and finalized at [facility]. Impression: Unremarkable right shoulder radiographs.
--- NOTE | ~2025-01-19 | XR_ITS ---
AP view of the pelvis and AP and lateral views of the right hip Clinical history: Pain Findings: No acute fracture or dislocation is seen. Osseous alignment is anatomic. Bilateral hip and SI joint spaces are preserved. Soft tissues are unremarkable. Impression: No significant abnormality is seen. Reviewed, dictated and finalized at [facility]. Impression: No significant abnormality is seen.
[2025-01-19 11:18] VITALS: BP 121/76; PULSE 61; RESP 16; TEMP 36.2; O2SAT 100
--- OUTSIDE RECORDS SUMMARY | 2025-01-19 11:19 | XMS_ITS | Clinical Summary ---
Author Organization [facility] Address [address] [place] [address] Care Team Providers Care Tap And Die Maker Technician Name Role Phone Priyank Zepeda MD Primary Care Provider [phone] Allergies Active Allergy Reactions Criticality Noted Date [...] Packs/Day Years Used Date Smoking Tobacco: Never [facility] AdverseEventsities Answer Date Recorded In the past 12 months has e allyDVM, Rowl, oil, or water [employer] threatened to shut off services in your [...] any time in the past 12 m [facility], were you homeless or [...] 1:27 AM 10/02/2023 3:59 PM Care Teams Tap And Die Maker Technician Relationship Specialty Start Date End Date Priyank Zepeda MD [address] [place] [address] PCP - General INTERNAL MEDICINE 09/19/19
--- OUTSIDE RECORDS SUMMARY | 2025-01-19 11:19 | XMS_ITS | Clinical Summary ---
Author Organization [facility] Address [address] [address] Care Team Providers Care Stud Master/Mistress Name Role Phone Priyank Zepeda MD Primary Care Provider [phone] Allergies Active Allergy Reactions Criticality Noted Date [...] 5 Active Cholecalciferol (Vitamin D3) 1.25 MG (42467 UT) capsule Take 50,000 Units by mouth [...] Description 10/22/2024 10:45 AM CDT Office Visit [facility]. [address] [facility] [address] [place] [address] Kristofer Ortiz MD Chronic kidney disease, stage 2 (mild) (Primary Dx); Hypertension; Anemia in chronic kidney disease; Secondary hyperparathyroidism of renal origin (HCC) 10/22/2024 Orders Only [facility] [address] [facility] [address] [place] [address] Ana Duran RN from Last 3 Months [...] CDT Respiratory Rate 18 05/15/2018 11:00 AM SECURITIES SUPERVISOR Oxygen Saturation 99% 10/22/2024 10:46 AM CDT Inhaled Oxygen Concentration - - Weight 63 kg (139 lb) 10/22/2024 10:46 AM CDT Height 160 cm (5' 3) 10/22/2024 10:46 AM CDT Body Mass Index 24.62 10/22/2024 10:46 AM CDT Plan of Treatment Upcoming Encounters Date Type Department Care Team (Late st Contact Info) Description 04/22/2025 11:45 AM SECURITIES SUPERVISOR Office Visit [facility] [address] [facility] [address] [place] [address] Kristofer Ortiz MD [address] [facility] [address] [place] [address] Health Maintenance Due Date Last Done Comments [...] Documents on File Type Date Recorded Patient Auto Inspection Specialist Expl anation Power of Communication Instructor 10/25/2021 11:10 AM Othe r - POA Power of Communication Instructor 10/25/2021 11:10 AM Othe r - POA Care Teams Stud Master/Mistress Relationship Specialty Start Date End Date Priyank Zepeda MD [address] [place] [address] PCP - General Internal Medicine 05/17/19
--- OUTSIDE RECORDS SUMMARY | 2025-01-19 11:19 | XMS_ITS | Encounter Summary ---
Author Organization [facility] Address [address] [place] [address] Phone Care Team Providers Care Marine Oil Terminal Superintendent Name Role Phone Priyank Zepeda MD Primary Care Provider Encounter Details Date Type Department Care Team (Late st Contact Info) Description 09/04/2024 [facility] [address] [place] [address] Priyank Zepeda MD [address] [place] [address] Secondary hyperparathyroidism of renal origin [...] - 12.00 10(3)/mcL 09/04/2024 6:44 PM CDT [facility] RBC 3.31(L) 3.80 - 5.30 10(6)/mcL 09/04/2024 6:44 PM CDT [facility] HEMOGLOBIN (HGB) 10.2(L) 12.0 - 15.8 g/dL 09/04/2024 6:44 PM CDT [facility] HEMATOCRIT (HCT) 32.3(L) 36.0 - 47.0 % 09/04/2024 6:44 PM CDT [facility] MCV 97.6(H) 82.0 - 96.0 fL 09/04/2024 6:44 PM CDT [facility] MCH 30.8 26.0 - 34.0 pg 09/04/2024 6:44 PM CDT [facility] MCHC 31.6 31.0 - 36.0 g/dL 09/04/2024 6:44 PM CDT [facility] PLATELET COUNT 240 140 - 440 10(3)/mcL 09/04/2024 6:44 PM CDT [facility] RDW 18.8(H) 11.8 - 15.5 % 09/04/2024 6:44 PM CDT [facility] MPV 9.8 9.7 - 12.4 fL 09/04/2024 6:44 PM CDT [facility] NEUTROPHILS 75.4(H) 47.0 - 73.0 % 09/04/2024 6:44 PM CDT [facility] LYMPHOCYTES 11.9(L) 18.0 - 42.0 % 09/04/2024 6:44 PM CDT [facility] MONOCYTES 9.3 4.0 - 12.0 % 09/04/2024 6:44 PM CDT [facility] EOSINOPHILS 2.8 0.0 - 5.0 % 09/04/2024 6:44 PM CDT [facility] BASOPHILS 0.6 0.0 - 1.0 % 09/04/2024 6:44 PM CDT [facility] ABSOLUTE NEUTROPHILS 3.48 1.60 - 7.70 10(3)/mcL 09/04/2024 6:44 PM CDT [facility] ABSOLUTE LYMPHOCYTES 0.55(L) 1.30 - 3.20 10(3)/mcL 09/04/2024 6:44 PM CDT [facility] ABSOLUTE MONOCYTES 0.43 0.20 - 1.00 10(3)/mcL 09/04/2024 6:44 PM CDT [facility] ABSOLUTE EOSINOPHIL 0.13 0.00 - 0.40 10(3)/mcL 09/04/2024 6:44 PM CDT [facility] ABSOLUTE BASOPHILS 0.03 0.00 - 0.10 10(3)/mcL 09/04/2024 6:44 PM CDT [facility] NRBC PER 100 WBC 0 09/05/19 6:44 PM CDT [facility] RESULTS ARE CONSISTENT WITH PERIPHERAL SMEAR REVIEW Yes 09/04/2024 6:44 PM CDT [facility] RBC MORPHOLOGY CONSISTENT WITH INDICES Yes 09/04/2024 6:44 PM CDT [facility] Blood No Phlebotomy Charged / Unknown 09/04/2024 4:55 PM CDT 09/04/2024 6:06 PM CDT us Priyank Zepeda MD HEMATOLOGY ORDERABLES Final R esult [facility] [address] [place] [address] * (ABNORMAL) PREALBUMIN (PAB) (09/04/2024 4:55 PM CDT) Pathologist [facility] PRE ALBUMIN 13(L) 14 - 37 mg/dL 09/05/2024 6:00 PM CDT [facility] Blood No Phlebotomy Charged / Unknown 09/04/2024 4:55 PM CDT 09/04/2024 6:06 PM CDT us Priyank Zepeda MD CHEMISTRY ORDERABLES Final Re sult [facility] [address] [place] [address], * VITAMIN D, 25 HYDROXY TOTAL (09/04/2024 4:55 PM CDT) VITAMIN D, 25 HYDROX 19.0 ng/mL 09/04/2024 6:55 PM CDT [facility] Blood No Phlebotomy Charged / Unknown 09/04/2024 4:55 PM CDT 09/04/2024 6:06 PM CDT Narrative [facility] - 09/04/2024 6:55 PM CDT Published reference ranges for Vitamin D vary depending on time and place and method of testing, and on patient's age, sex, ethnicity and levels of other measured analytes such as parathormone, calcium and phosphorus. The result should be evaluated in conjunction with clinical findings and suspicions. [place] [employer] and Endocrine Clinical Practice Guidelines: Status Vitamin D levels (ng/mL) Deficient <=20 At risk of inadequacy 21-29 Sufficient 30-100 Centers of Disease Control and Prevention Guidelines: Status Vitamin D levels (ng/mL) Deficient <13 At risk of inadequacy 13-19 Sufficient 20-50 Possibly harmful >50 References: [place] [employer], 2010 Dietary reference intakes for calcium and vitamin D. [place]: The National Academies Press. Yo M, Blayne N, Sara LEES, et al., Evaluation, treatment, and prevention of Vitamin D deficiency: an Endocrinology Clinical Practice Guideline. JCEM 2011 96: 7 9451-5264. Kiet A, Dario C, Yemi D, et al., Vitamin D Status: [place], , VTHS data brief, no. 59, [place]: National Center for Health Statistics. 2011. us Priyank Zepeda MD CHEMISTRY ORDERABLES Final Re sult [facility] [address] [place] [address] * (ABNORMAL) THYROID STIMULATING HORMONE (TSH) (09/04/2024 4:55 PM CDT) TSH 9.593(H) 0.300 - 5.000 mIU/L 09/04/2024 6:56 PM CDT [facility] Blood No Phlebotomy Charged / Unknown 09/04/2024 4:55 PM CDT 09/04/2024 6:06 PM CDT us Priyank Zepeda MD CHEMISTRY ORDERABLES Final Re sult [facility] [address] [place] [address] * (ABNORMAL) PHOSPHORUS (PO4) (09/04/2024 4:55 PM CDT) PHOSPHORUS 2.3(L) 2.5 - 4.5 mg/dL 09/04/2024 6:39 PM CDT [facility] Blood No Phlebotomy Charged / Unknown 09/04/2024 4:55 PM CDT 09/04/2024 6:06 PM CDT us Priyank Zepeda MD CHEMISTRY ORDERABLES Final Re sult Performing Organization Address City/[facility]/ZIP Co de Phone Number [facility] [address] [place] [address] * (ABNORMAL) CMP (COMPREHENSIVE METABOLIC PANEL) (09/04/2024 4:55 PM CDT) SODIUM 143 136 - 145 mmol/L 09/04/2024 6:39 PM CDT [facility] POTASSIUM 4.0 3.5 - 5.1 mmol/L 09/04/2024 6:39 PM CDT [facility] CHLORIDE 114(H) 98 - 107 mmol/L 09/04/2024 6:39 PM CDT [facility] CO2, VENOUS 23 22 - 30 mmol/L 09/04/2024 6:39 PM CDT [facility] ANION GAP 10.0 <18.0 mmol/L 09/04/2024 6:39 PM CDT [facility] GLUCOSE 87 70 - 99 mg/dL 09/04/2024 6:39 PM CDT [facility] BUN 10 10 - 20 mg/dL 09/04/2024 6:39 PM CDT [facility] CREATININE, BLOOD 0.77 0.60 - 1.00 mg/dL 09/04/2024 6:39 PM [facility] BUN/CREATININE RATIO 13 12 - 20 ratio 09/04/2024 6:39 PM [facility] TOTAL PROTEIN 6.8 6.0 - 8.0 g/dL 09/04/2024 6:39 PM [facility] ALBUMIN 2.7(L) 3.5 - 5.0 g/dL 09/04/2024 6:39 PM [facility] A/G RATIO 0.7(L) 1.0 - 2.2 09/04/2024 6:39 PM [facility] CALCIUM 8.2(L) 8.7 - 10.5 mg/dL 09/04/2024 6:39 PM [facility] T BILI 0.4 0.2 - 1.2 mg/dL 09/04/2024 6:39 PM [facility] SGOT (AST) 52(H) <43 U/L 09/04/2024 6:39 PM [facility] SGPT (ALT) 37 <56 U/L 09/04/2024 6:39 PM [facility] ALKALINE PHOSPHATASE 137 40 - 150 U/L 09/04/2024 6:39 PM [facility] GFR, ESTIMATED >60 >=60 09/04/2024 6:39 PM [facility] Comment: Creatinine Clearance is the preferred criteria for selecting drug dose adjustments in renally impaired patients. The GFR is provided as additional pertinent clinical information. GFR is reported in mL/min/1.73 sq m. Calculation based on the Chronic Kidney Disease Epidemiology Collaboration (CKD- EPI) equation refit without adjustment for race. GFR, EST. >60 >=60 025 6:39 PM [facility] GFR, EST. NONAFRICAN >60 >=60 09/04/2024 6:39 PM [facility] Blood No Phlebotomy Charged / Unknown 09/04/2024 4:55 PM CDT 09/04/2024 6:06 PM CDT us Priyank Zepeda MD CHEMISTRY ORDERABLES Final Re sult [facility] [address] [place] [address] documented in this encounter Visit Diagnoses Diagnosis Secondary hyperparathyroidism of renal origin (HCC) Secondary hyperparathyroidism (of renal origin) Vitamin D deficiency, unspecified Hypothyroidism, unspecified documented in this encounter Care Teams Marine Oil Terminal Superintendent Relationship Specialty Start Date End Date Priyank Zepeda MD [address] [place] [address] PCP - General Internal Medicine 08/08/24 documented as of this encounter
--- OUTSIDE RECORDS SUMMARY | 2025-01-19 11:19 | XMS_ITS | Encounter Summary ---
Author Organization [facility] Address [address] [place] [address] Phone Care Team Providers Care Exhauster Engineer Name Role Phone Priyank Zepeda MD Primary Care Provider [phone] Reason for Visit * Reason Onset Date Comments Medication Management 08/13/2024 Encounter Details Date Type Department Care Team (Late st Contact Info) Description 08/13/2024 [facility] [address] [place] [address] Eloisa Ruiz, PT Medication Management Social History [...] on filedocumented in this encounter Care Teams Exhauster Engineer Relationship Specialty Start Date End Date Priyank Zepeda MD [address] [place] [address] PCP - General Internal Medicine 08/08/24 documented as of this encounter
--- OUTSIDE RECORDS SUMMARY | 2025-01-19 11:19 | XMS_ITS | Encounter Summary ---
Author Organization [facility] Address [address] [place] [address] Care Team Providers Care Edge Sander Name Role Phone Priyank Zepeda MD Primary Care Provider [phone] Encounter Details Date Type Department Care Team (Late st Contact Info) Description 10/03/2023 Hospital Follow-up Call [facility] [address] [place] [address] Chelsea Bishop RN Social History Tobacco Use Types Packs/Day Years Used Date Smoking Tobacco: Never [facility] Utilities Answer Date Recorded In the past 12 months has e electric, gas, oil, or water [employer] threatened to shut off services in your [...] any time in the past 12 m [facility], were you homeless or living in a long term (including now)? No 09/28/2023 Comments Unknown Sex [...] on filedocumented in this encounter Care Teams Edge Sander Relationship Specialty Start Date End Date Priyank Zepeda MD [address] [place] [address] PCP - General INTERNAL MEDICINE 09/19/19 documented as of this encounter
--- OUTSIDE RECORDS SUMMARY | 2025-01-19 11:19 | XMS_ITS | Encounter Summary ---
Author Organization [facility] Address [address] [facility] [address] [place] [address] Phone Care Team Providers Care Technical Agronomist Name Role Phone Priyank Zepeda MD Primary Care Provider [phone] Encounter Details Date Type Department Care Team (Late Contact Info) Description 12/06/2019 Orders Only [facility] [address] [address] [place] [address] Kristofer Ortiz MD [address] [facility] [facility] [address] [place] [address] Chronic kidney disease stage 3 [...] (Late Contact Info) Description 04/22/2025 11:45 AM COST REDUCTION ENGINEER Office Visit [facility] [address] [address] [place] [address] Kristofer Ortiz MD [address] [place] [address] [address] documented as of this encounter Visit Diagnoses Diagnosis Chronic kidney disease stage 3 (HCC) documented in this encounter Care Teams Technical Agronomist Relationship Specialty Start Date End Date Priyank Zepeda MD [address] [place] [address] PCP - General Internal Medicine 05/17/19 documented as of this encounter
--- OUTSIDE RECORDS SUMMARY | 2025-01-19 11:19 | XMS_ITS | Clinical Summary ---
Author Organization [facility] Address [address] [place] [address] Care Team Providers Care Gasket Notcher Name Role Phone Priyank Zepeda MD Primary Care Provider [phone] Source Comments [facility],non-owned Affiliates and Associated Physician Practices is amultiple site organization consisting of ambulatory clinics and hospital sitesin [place], [place], [place] and [place]. This disclosure is being madepursuant to the Care Everywhere program and may not contain all information available regarding this patient. Last updated 18.[facility] Allergies Active Allergy Reactions Criticality Noted Date [...] once daily 42 Each 08/07/2024 1:10 PM AERIAL ERECTOR 5 Active ferrous sulfate 325 (65 FE) MG tablet Take 1 (one) tablet by mouth once daily after lunch 30 tablet 08/07/2024 1:10 PM AERIAL ERECTOR 5 Active folic acid (Folvite) 1 MG tablet Take 1 (one) tablet by mouth once daily 30 tablet 08/07/2024 1:10 PM AERIAL ERECTOR 5 Active pantoprazole EC (Protonix) 40 MG tablet Take 1 (one) tablet by mouth 2 times daily, before breakfast and supper 60 tablet 08/07/2024 1:10 PM AERIAL ERECTOR 5 Active sucralfate (Carafate) 1 GM/10ML suspension Take 10 mL by mouth 4 times daily - before meals & nightly 420 mL 08/07/2024 1:10 PM AERIAL ERECTOR 5 Active Cholecalciferol (vitamin D3) 1.25 MG (37223 UT) capsule Take 1 (one) capsule by mouth every 7 days 5 capsule 5 Active furosemide (Lasix) 40 MG tablet Take 1 (one) tablet by mouth once daily 30 tablet 08/07/2024 1:10 PM AERIAL ERECTOR 5 Active Calcium Carbonate Antacid (calcium carbonate, 500 mg elemental Ca/5 mL,) 1250 MG/5ML suspension Take 10 mL by mouth 3 times daily with meals 473 mL 1 5 Active pancrelipase (Creon 24,000) [address]36[address] units capsule Take 1 (one) capsule by [...] medical care, and heating? Somewhat hard 07/28/2024 [facility] Occupat ional Health - Occupational Stress [...] any time in the past 12 m [facility], were you homeless or living in a long-term (including now)? No 07/28/2024 Comments Unknown Sex and Gender Information Value Date Recorded Sex Assigned at Not on file Legal Sex Female 9:40 AM CDT Gender Identity Not on file Sexual Orientation Not on file Last Filed Vital Signs Vital Sign Reading Time Taken Comments Blood Pressure 112/78 08/07/2024 2:44 PM AERIAL ERECTOR Pulse 93 08/07/2024 2:44 PM AERIAL ERECTOR Temperature 37.5 C (99.5 F) 08/07/2024 11:33 AM AERIAL ERECTOR Respiratory Rate 18 08/07/2024 11:3 3 AM AERIAL ERECTOR Oxygen Saturation 97% 08/07/2024 2:44 PM AERIAL ERECTOR Inhaled Oxygen Concentration - - Weight 87.5 kg (192 lb 14.4 oz) 025 12:04 AM AERIAL ERECTOR Height 165.1 cm (5' 5) 07/28/2024 4:01 PM AERIAL ERECTOR Body Mass Index 32.1 07/28/2024 4:01 PM AERIAL ERECTOR Plan of Treatment Health Maintenance Due Date [...] patient's age to complete this topic Insurance [facility] Advance Directives Documents on File Type Date Recorded 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
--- OUTSIDE RECORDS SUMMARY | 2025-01-19 11:19 | XMS_ITS | Encounter Summary ---
Author Organization [facility] Address [address] [facility] [address] [place] [address] Phone Care Team Providers Care Psychosocial Rehabilitation Counselor Name Role Phone Priyank Zepeda MD Primary Care Provider [phone] Encounter Details Date Type Department Care Team (Late Contact Info) Description 01/03/2020 Orders Only [facility] [address] [facility] [address] [place] [address] Kristofer Ortiz MD [address] [facility] [address] [place] [address] Chronic kidney disease stage 3 [...] (Late Contact Info) Description 04/22/2025 11:45 AM WINDOW SHADE INSTALLER Office Visit [facility] [address] [facility] [address] [place] [address] Kristofer Ortiz MD [address] [place] [address] [address] documented as of this encounter Visit Diagnoses Diagnosis Chronic kidney disease stage 3 (HCC) documented in this encounter Care Teams Psychosocial Rehabilitation Counselor Relationship Specialty Start Date End Date Priyank Zepeda MD [address] [place] [address] PCP - General Internal Medicine 05/17/19 documented as of this encounter
--- OUTSIDE RECORDS SUMMARY | 2025-01-19 11:19 | XMS_ITS | Clinical Summary ---
Author Organization [facility] Address [address] [place] [address] Care Team Providers Care Spice Blender Name Role Phone Gayla Villar Primary Care Provider [phone] Social History Tobacco Use Types Packs/Day Years Used Date Smoking Tobacco: Never Assessed Comments Unknown Sex and Gender Information Value Date Recorded Sex Assigned at Not on file Legal Sex Female 4:22 PM VIDEO PRODUCTION ENGINEER Gender Identity Not on file Sexual Orientation [...] 75+ series) 2034 Insurance [place] Care Teams Spice Blender Relationship Specialty Start Date End Date Gayla Villar [address] [facility] [address] [place] [address] PCP - General 03/11/02
--- OUTSIDE RECORDS SUMMARY | 2025-01-19 11:19 | XMS_ITS | Clinical Summary ---
Author Organization [facility] Address [address] [address] Phone Care Team Providers Care Workforce Consultant Name Role Phone Priyank Zepeda MD Primary Care Provider [phone] Allergies No known active allergies Medications calcium [...] route 2 times per day Active Pancrelipase, Pvp-Wbru-Hmqf, (CREON PO) Take 24,000 Units by mouth 3 times daily (with meals). Take 1 capsule by mouth 3 times daily with meals Active spironolactone (ALDACTONE) 25 MG Tablet Take 25 mg by mouth daily. Active BETA CAROTENE PO Take 7,500 mcg by mouth daily. Active Cyanocobalamin (VITAMIN B12 PO) Take 2,500 mcg by mouth daily. Active pancrelipase, lipase-protease- amylase, (Creon) [address]-[address] Particles Take 1 Capsule [...] Documents on File Type Date Recorded Patient Primary Care Coordinator Expl anation Power of Director Pharmacovigilance for Health Care 08/26/2024 9:18 AM POA-HC Power of Director Pharmacovigilance for Health Care 08/26/2024 9:18 AM POA-HC Power of Director Pharmacovigilance for Health Care 08/26/2024 9:13 AM POA-HC Power of Director Pharmacovigilance for Health Care 08/26/2024 9:08 AM POA-HC Power of Director Pharmacovigilance for Health Care 08/14/2024 12:10 PM POA HC 07/30/2024 * Full Code (Latest Code Status on File) Date Activated Date Inactivated Comments 08/13/2024 10:26 PM Care Teams Workforce Consultant Relationship Specialty Start Date End Date Priyank Zepeda MD [address] [place] [address] PCP - General Internal Medicine 08/08/24
--- OUTSIDE RECORDS SUMMARY | 2025-01-19 11:19 | XMS_ITS | Encounter Summary ---
Author Organization [facility] Address [address] [place] [address] Phone Care Team Providers Care Boat Rigger Name Role Phone Priynak Zepeda MD Primary Care Provider [phone] Reason for Visit * Reason Onset Date Comments Medication Management 08/16/2024 Encounter Details Date Type Department Care Team (Late st Contact Info) Description 08/16/2024 [facility] [address] [place] [address] Eloisa Ruiz, PT Medication Management Social History [...] Home Health patient was observation at [facility] for low potassium from /08/15/24. [...] on filedocumented in this encounter Care Teams Boat Rigger Relationship Specialty Start Date End Date Priyank Zepeda MD [address] [place] [address] PCP - General Internal Medicine 08/08/24 documented as of this encounter
--- NOTE | 2025-01-19 11:22 | ED.GENADULT ---
HPI - General Adult General Chief complaint: Extremity Injury, Upper Stated complaint: fall, right shoulder pain Time Seen by Provider: 01/19/25 11:19 History of Present Illness HPI narrative: Louise is a 64F with a PMH of OA, anxiety, hypothyroidism, HTN, portal vein thrombosis, trichotillomania that presented to the ED via EMS after a fall. She tripped over her cane at [employer]ian[employer] and fell onto her right hip and shoulder. She did not hit her head or neck. No LOC. No CP, dyspnea, palpitations or lightheadeness. Related Data Home Medications ?Medication ?Instructions ?Recorded ?Confirmed ?Last Taken ?Type amitriptyline 10 mg tablet 10 mg PO BID 10/24/19 11/04/24 02/27/24 History fluoxetine 40 mg capsule 40 mg PO BID 10/24/19 11/04/24 02/27/24 History cyanocobalamin (vitamin B-12) 2,500 mcg PO DAILY 02/15/22 11/04/24 02/27/24 History beta carotene 30 mg capsule 30 mg PO DAILY 02/25/22 11/04/24 02/27/24 History ergocalciferol (vitamin D2) 1,250 1,250 mcg PO WEEKLY 09/27/23 11/04/24 02/26/24 History mcg (50,000 unit) capsule (Vitamin D2) calcium carbonate (Tums) 200 mg PO BID 12/25/23 11/04/24 02/27/24 History pantoprazole 40 mg tablet,delayed 40 mg PO BID 12/25/23 11/04/24 02/27/24 History release albuterol sulfate 90 mcg/actuation 2 puff inhalation Q4-6H PRN 07/27/24 11/04/24 Unknown History aerosol inhaler shortness of breath or wheezing apixaban 5 mg tablet (Eliquis) 5 mg PO BID 07/27/24 11/04/24 Unknown History ascorbate calcium (vitamin C) 814 mg PO 01/06/25 Unknown History mg/gram oral powder calcitriol 0.5 mcg capsule 1 mcg PO TID 01/06/25 Unknown History levothyroxine 125 mcg tablet 125 mcg PO TID 01/06/25 Unknown History potassium chloride 20 mEq 10 meq PO TID 01/06/25 Unknown History tablet,extended release(part/cryst) spironolactone 25 mg tablet 25 mg PO BID 01/06/25 Unknown History Allergies Allergy/AdvReac Type Severity Reaction Status Date / Time adhesive Allergy Mild Rash Verified 01/19/25 11:22 ciprofloxacin (From Cipro) Allergy Other Verified 01/19/25 11:22 succinylcholine AdvReac Intermediate Unknown Verified 01/19/25 11:22 Review of Systems Review of Systems: All systems reviewed & are unremarkable except as noted in HPI and below PMFSH Past Medical History Medical History Hypocalcemia Hypokalemia Portal vein thrombosis CKD (chronic kidney disease) Bradycardia Hypothyroidism Hyperparathyroidism HTN (hypertension) Renal tubular acidosis Trichotillomania Surgical History Surgical History History of colon surgery 02/15/22 Open right hemicolectomy with ileocolic anastomosis History of extraction of renal calculus History of colonoscopy with polypectomy May 2021 with benign polypectomy History of laparoscopic cholecystectomy cholecystectomy during her laparoscopic gastric surgery History of laparoscopic appendectomy H/O knee surgery H/O gastric bypass 2002 in [place] - laparoscopic duodenal switch procedure H/O parathyroidectomy Family History Family History Father Asthma Hypertension Mother Breast cancer Sibling Diabetes mellitus Hypertension Grandparent Cancer Grandparent Diabetes mellitus Cancer Other No pertinent family history Social History Social History Smoking status: Never smoker Second hand tobacco smoke exposure: No Alcohol intake: never Substance use: never Substance use type: does not use Other substance usage details: none Do You Feel Safe in your Home?: Yes Lack of Transportation: No Lack of Food: Never True Current Housing: I Have Housing Concerned About Future Housing: No Difficulty Paying Gas/Electric Bills: No Difficulty Paying for Meds: No Currently Unemployed: No Education: Bachelor's Degree Difficulty w/ Childcare or Family Care: No Occupation/Education: other Additional occupation/education comments: on disability Spiritual care concerns: No Exam Const: General: cooperative, healthy appearing, comfortable, no acute distress, well developed, alert, awake and Physically active Orientation/consciousness: oriented to person, oriented to place and oriented to time HENMT: Head: normal to inspection, normocephalic and atraumatic Ears: hearing grossly normal bilaterally and external ears normal Face/Nose/Sinus: Normal external nose present Eyes: General: appearance normal, both eyes and all related structures Periorbital: periorbital findings normal Sclera: sclerae normal Pupils: Equal, round and reactive pupils present Neck: Neck: normal visual inspection Chest: Chest palpation & inspection: normal inspection of the chest Resp: Effort & Inspection: normal respiratory effort, able to speak in complete sentences and no respiratory distress Cardio: Jugular venous distension: no JVD Skin: General skin exam: normal color and no rashes or lesions noted Neuro: General: oriented to person, oriented to place and oriented to time Cranial nerves: Yes Equal, round and reactive pupils present Extrem: General: normal to inspection Other: Full ROM of the right shoulder and right hip Course Course Emergency Course: declined pain meds Right Shoulder Technique: AP and scapular Y views were obtained. Clinical History: Pain Findings: No fracture or dislocation is seen. Osseous alignment is anatomic. The glenohumeral and acromioclavicular joint spaces are preserved. Soft tissues are unremarkable. Impression: Unremarkable right shoulder radiographs. AP view of the pelvis and AP and lateral views of the right hip Clinical history: Pain Findings: No acute fracture or dislocation is seen. Osseous alignment is anatomic. Bilateral hip and SI joint spaces are preserved. Soft tissues are unremarkable. Impression: No significant abnormality is seen. Vital Signs Vital signs: Vital Signs Temperature 97.2 F L 01/19/25 11:18 Pulse Rate 61 01/19/25 11:18 Respiratory Rate 16 01/19/25 11:18 Blood Pressure 121/76 01/19/25 11:18 Pulse Oximetry 100 01/19/25 11:18 Oxygen Delivery Room Air 01/19/25 11:18 Temperature 97.2 F L 01/19/25 11:18 Pulse Rate 61 01/19/25 11:18 Respiratory Rate 16 01/19/25 11:18 Blood Pressure 121/76 01/19/25 11:18 Pulse Oximetry 100 01/19/25 11:18 Oxygen Delivery Room Air 01/19/25 11:18 Medical Decision Making Vital Signs Vital Signs: Vital Signs Temperature 97.2 F L 01/19/25 11:18 Pulse Rate 61 01/19/25 11:18 Respiratory Rate 16 01/19/25 11:18 Blood Pressure 121/76 01/19/25 11:18 Pulse Oximetry 100 01/19/25 11:18 Oxygen Delivery Room Air 01/19/25 11:18 Temperature 97.2 F L 01/19/25 11:18 Pulse Rate 61 01/19/25 11:18 Respiratory Rate 16 01/19/25 11:18 Blood Pressure 121/76 01/19/25 11:18 Pulse Oximetry 100 01/19/25 11:18 Oxygen Delivery Room Air 01/19/25 11:18 Discharge Plan Discharge Clinical Impression: Fall Patient Disposition: Home Condition: Stable Instructions: Fall Prevention (ED) Patient Language: Croatian Prescriptions: No Action cyanocobalamin (vitamin B-12) 2,500 mcg PO DAILY ergocalciferol (vitamin D2) [Vitamin D2] 1,250 mcg (50,000 unit) Capsule 1,250 mcg PO WEEKLY Patient Comments: On Mondays fluoxetine 40 mg capsule 40 mg PO BID amitriptyline 10 mg tablet 10 mg PO BID calcitriol 0.5 mcg capsule 1 mcg PO TID Rx Instructions: 2 CAPSULES IN THE MORNING AND EVENING albuterol sulfate 90 mcg/actuation HFA aerosol inhaler 2 puff INHALATION Q4-6H PRN (Reason: shortness of breath or wheezing) Eliquis 5 mg tablet 5 mg PO BID levothyroxine 125 mcg tablet 125 mcg PO TID furosemide 40 mg Tablet 40 mg PO DAILY Qty: 30 0RF sodium bicarbonate 650 mg Tablet 1,950 mg PO DAILY Qty: 90 0RF ascorbate calcium (vitamin C) 814 mg/gram powder PO potassium chloride 20 mEq tablet,ER particles/crystals 10 meq PO TID spironolactone 25 mg tablet 25 mg PO BID beta carotene 30 mg capsule 30 mg PO DAILY pantoprazole 40 mg tablet,delayed release (DR/EC) 40 mg PO BID calcium carbonate [Tums] 200 mg calcium (500 mg) tablet,chewable 200 mg PO BID Follow-up/Referrals: Priyank Zepeda MD [Primary Care Provider] -
[2025-01-19 12:02] VITALS: BP 121/76; PULSE 61; RESP 16; TEMP 36.2; O2SAT 100
--- OUTSIDE RECORDS SUMMARY | 2025-01-19 12:13 | XMS_ITS | Encounter Summary ---
Author Organization [facility] Address [address] [place] [address] Phone Care Team Providers Care Decorator Street And Building Name Role Phone Priyank Zepeda MD Primary Care Provider [phone] Encounter Details Date Type Department Care Team (Late st Contact Info) Description 09/04/2024 [facility] [address] [place] [address] Priyank Zepeda MD [address] [place] [address] Secondary hyperparathyroidism of renal origin [...] - 12.00 10(3)/mcL 09/04/2024 6:44 PM CDT [facility] RBC 3.31(L) 3.80 - 5.30 10(6)/mcL 09/04/2024 6:44 PM CDT [facility] HEMOGLOBIN (HGB) 10.2(L) 12.0 - 15.8 g/dL 09/04/2024 6:44 PM CDT [facility] HEMATOCRIT (HCT) 32.3(L) 36.0 - 47.0 % 09/04/2024 6:44 PM CDT [facility] MCV 97.6(H) 82.0 - 96.0 fL 09/04/2024 6:44 PM CDT [facility] MCH 30.8 26.0 - 34.0 pg 09/04/2024 6:44 PM CDT [facility] MCHC 31.6 31.0 - 36.0 g/dL 09/04/2024 6:44 PM CDT [facility] PLATELET COUNT 240 140 - 440 10(3)/mcL 09/04/2024 6:44 PM CDT [facility] RDW 18.8(H) 11.8 - 15.5 % 09/04/2024 6:44 PM CDT [facility] MPV 9.8 9.7 - 12.4 fL 09/04/2024 6:44 PM CDT [facility] NEUTROPHILS 75.4(H) 47.0 - 73.0 % 09/04/2024 6:44 PM CDT [facility] LYMPHOCYTES 11.9(L) 18.0 - 42.0 % 09/04/2024 6:44 PM CDT [facility] MONOCYTES 9.3 4.0 - 12.0 % 09/04/2024 6:44 PM CDT [facility] EOSINOPHILS 2.8 0.0 - 5.0 % 09/04/2024 6:44 PM CDT [facility] BASOPHILS 0.6 0.0 - 1.0 % 09/04/2024 6:44 PM CDT [facility] ABSOLUTE NEUTROPHILS 3.48 1.60 - 7.70 10(3)/mcL 09/04/2024 6:44 PM CDT [facility] ABSOLUTE LYMPHOCYTES 0.55(L) 1.30 - 3.20 10(3)/mcL 09/04/2024 6:44 PM CDT [facility] ABSOLUTE MONOCYTES 0.43 0.20 - 1.00 10(3)/mcL 09/04/2024 6:44 PM CDT [facility] ABSOLUTE EOSINOPHIL 0.13 0.00 - 0.40 10(3)/mcL 09/04/2024 6:44 PM CDT [facility] ABSOLUTE BASOPHILS 0.03 0.00 - 0.10 10(3)/mcL 09/04/2024 6:44 PM CDT [facility] NRBC PER 100 WBC 0 09/05/19 6:44 PM CDT [facility] RESULTS ARE CONSISTENT WITH PERIPHERAL SMEAR REVIEW Yes 09/04/2024 6:44 PM CDT [facility] RBC MORPHOLOGY CONSISTENT WITH INDICES Yes 09/04/2024 6:44 PM CDT [facility] Blood No Phlebotomy Charged / Unknown 09/04/2024 4:55 PM CDT 09/04/2024 6:06 PM CDT us Priyank Zepeda MD HEMATOLOGY ORDERABLES Final R esult [facility] [place] [address] * (ABNORMAL) PREALBUMIN (PAB) (09/04/2024 4:55 PM CDT) Pathologist [facility] PRE ALBUMIN 13(L) 14 - 37 mg/dL 09/05/2024 6:00 PM CDT [facility] Blood No Phlebotomy Charged / Unknown 09/04/2024 4:55 PM CDT 09/04/2024 6:06 PM CDT us Priyank Zepeda MD CHEMISTRY ORDERABLES Final Re sult [facility] [address] [place] [address], * VITAMIN D, 25 HYDROXY TOTAL (09/04/2024 4:55 PM CDT) VITAMIN D, 25 HYDROX 19.0 ng/mL 09/04/2024 6:55 PM CDT [facility] Blood No Phlebotomy Charged / Unknown 09/04/2024 4:55 PM CDT 09/04/2024 6:06 PM CDT Narrative [facility] - 09/04/2024 6:55 PM CDT Published reference ranges for Vitamin D vary depending on time and place and method of testing, and on patient's age, sex, ethnicity and levels of other measured analytes such as parathormone, calcium and phosphorus. The result should be evaluated in conjunction with clinical findings and suspicions. [place] of [employer] and Endocrine Clinical Practice Guidelines: Status Vitamin D levels (ng/mL) Deficient <=20 At risk of inadequacy 21-29 Sufficient 30-100 Centers of Disease Control and Prevention Guidelines: Status Vitamin D levels (ng/mL) Deficient <13 At risk of inadequacy 13-19 Sufficient 20-50 Possibly harmful >50 References: [place] [employer], 2010 Dietary reference intakes for calcium and vitamin D. [place]: The National Academies Press. Yo M, Blayne N, Sara LEES, et al., Evaluation, treatment, and prevention of Vitamin D deficiency: an Endocrinology Clinical Practice Guideline. JCEM 2011 96: 7 8708-6075. Kiet A, Dario C, Yemi D, et al., Vitamin D Status: [place], , LAHS data brief, no. 59, [place]: National Center for Health Statistics. 2011. us Priyank Zepeda MD CHEMISTRY ORDERABLES Final Re sult [facility] [place] [address] * (ABNORMAL) THYROID STIMULATING HORMONE (TSH) (09/04/2024 4:55 PM CDT) TSH 9.593(H) 0.300 - 5.000 mIU/L 09/04/2024 6:56 PM CDT [facility] Blood No Phlebotomy Charged / Unknown 09/04/2024 4:55 PM CDT 09/04/2024 6:06 PM CDT us Priyank Zepeda MD CHEMISTRY ORDERABLES Final Re sult [facility] [place] [address] * (ABNORMAL) PHOSPHORUS (PO4) (09/04/2024 4:55 PM CDT) PHOSPHORUS 2.3(L) 2.5 - 4.5 mg/dL 09/04/2024 6:39 PM CDT [facility] Blood No Phlebotomy Charged / Unknown 09/04/2024 4:55 PM CDT 09/04/2024 6:06 PM CDT us Priyank Zepeda MD CHEMISTRY ORDERABLES Final Re sult Performing Organization Address City/[facility]/ZIP Co de Phone Number [facility] [place] [address] * (ABNORMAL) CMP (COMPREHENSIVE METABOLIC PANEL) (09/04/2024 [...] 0.60 - 1.00 mg/dL 09/04/2024 6:39 PM [facility] BUN/CREATININE RATIO 13 12 - 20 ratio 09/04/2024 6:39 PM [facility] TOTAL PROTEIN 6.8 6.0 - 8.0 g/dL 09/04/2024 6:39 PM [facility] ALBUMIN 2.7(L) 3.5 - 5.0 g/dL 09/04/2024 6:39 PM [facility] A/G RATIO 0.7(L) 1.0 - 2.2 09/04/2024 6:39 PM [facility] CALCIUM 8.2(L) 8.7 - 10.5 mg/dL 09/04/2024 6:39 PM [facility] T BILI 0.4 0.2 - 1.2 mg/dL 09/04/2024 6:39 PM [facility] SGOT (AST) 52(H) <43 U/L 09/04/2024 6:39 PM [facility] SGPT (ALT) 37 <56 U/L 09/04/2024 6:39 PM [facility] ALKALINE PHOSPHATASE 137 40 - 150 U/L 09/04/2024 6:39 PM [facility] GFR, ESTIMATED >60 >=60 09/04/2024 6:39 PM [facility] Comment: Creatinine Clearance is the preferred criteria for selecting drug dose adjustments in renally impaired patients. The GFR is provided as additional pertinent clinical information. GFR is reported in mL/min/1.73 sq m. Calculation based on the Chronic Kidney Disease Epidemiology Collaboration (CKD- EPI) equation refit without adjustment for race. GFR, EST. >60 >=60 025 6:39 PM [facility] GFR, EST. NONAFRICAN >60 >=60 09/04/2024 6:39 PM [facility] Blood No Phlebotomy Charged / Unknown 09/04/2024 4:55 PM CDT 09/04/2024 6:06 PM CDT us Priyank Zepeda MD CHEMISTRY ORDERABLES Final Re sult [facility] [place] [address] documented in this encounter Visit Diagnoses Diagnosis Secondary hyperparathyroidism of renal origin (HCC) Secondary hyperparathyroidism (of renal origin) Vitamin D deficiency, unspecified Hypothyroidism, unspecified documented in this encounter Care Teams Decorator Street And Building Relationship Specialty Start Date End Date Priyank Zepeda MD [address] [place] [address] PCP - General Internal Medicine 08/08/24 documented as of this encounter
--- OUTSIDE RECORDS SUMMARY | 2025-01-19 12:13 | XMS_ITS | Encounter Summary ---
Author Organization [facility] Address [address] [facility] [place] [address] Phone Care Team Providers Care Coater Helper Name Role Phone Priyank Zepeda MD Primary Care Provider [phone] Reason for Visit * Reason Onset Date Comments Medication Management 08/16/2024 Encounter Details Date Type Department Care Team (Late st Contact Info) Description 08/16/2024 [facility] [address] [place] [address] Eloisa Ruiz, PT Medication Management Social History [...] OS Home Health patient was observation at [facility] for low potassium from /08/15/24. A [...] on filedocumented in this encounter Care Teams Coater Helper Relationship Specialty Start Date End Date Priyank Zepeda MD [address] [place] [address] PCP - General Internal Medicine 08/08/24 documented as of this encounter
--- OUTSIDE RECORDS SUMMARY | 2025-01-19 12:13 | XMS_ITS | Encounter Summary ---
Author Organization [facility] Address [address] [place] [address] Phone Care Team Providers Care Weld Technician Name Role Phone Priyank Zepeda MD Primary Care Provider [phone] Encounter Details Date Type Department Care Team (Late Contact Info) Description 12/06/2019 Orders Only [facility]. [address] [place] [id number] Kristofer Ortiz MD [address] [place] [address] Chronic kidney disease stage [...] (Late Contact Info) Description 04/22/2025 11:45 AM AUTO DEALER Office Visit [facility]. [address] [place] [address] Kristofer Ortiz MD [address] [place] [address] [address] documented as of this encounter Visit Diagnoses Diagnosis Chronic kidney disease stage 3 (HCC) documented in this encounter Care Teams Weld Technician Relationship Specialty Start Date End Date Priyank Zepeda MD [address] [place] [address] PCP - General Internal Medicine 05/17/19 documented as of this encounter
--- OUTSIDE RECORDS SUMMARY | 2025-01-19 12:13 | XMS_ITS | Encounter Summary ---
Author Organization [facility] Address [address] [place] [address] Care Team Providers Care Director Digital Communications Name Role Phone rPiyank Zepeda MD Primary Care Provider [phone] Encounter Details Date Type Department Care Team (Late st Contact Info) Description 10/03/2023 Hospital Follow-up Call [facility] [address] [place] [address] Chelsea Bishop RN Social History Tobacco Use Types Packs/Day Years Used Date Smoking Tobacco: Never [facility] Utilities Answer Date Recorded In the past 12 months has e electric, gas, oil, or water [employer] threatened to shut off services in your [...] any time in the past 12 m [facility], were you homeless or living in a assisted (including now)? No 09/28/2023 Comments Unknown Sex [...] filedocumented in this encounter Care Teams Director Digital Communications Relationship Specialty Start Date End Date Priyank Zepeda MD [address] [place] [address] PCP - General INTERNAL MEDICINE 09/19/19 documented as of this encounter
--- OUTSIDE RECORDS SUMMARY | 2025-01-19 12:13 | XMS_ITS | Clinical Summary ---
Author Organization [facility] Address [address] [place] [address] Care Team Providers Care Stone And Concrete Washer Name Role Phone Priyank Zepeda MD Primary Care Provider [phone] Source Comments [facility],non-owned Affiliates and Associated Physician Practices is amultiple site organization consisting of ambulatory clinics and hospital sitesin [place], [place], [place] and [place]. This disclosure is being madepursuant to the Care Everywhere program and may not contain all information available regarding this patient. Last updated 18.[facility] Allergies Active Allergy Reactions Criticality Noted Date [...] once daily 42 Each 08/07/2024 1:10 PM TRANSPORT RN 5 Active ferrous sulfate 325 (65 FE) MG tablet Take 1 (one) tablet by mouth once daily after lunch 30 tablet 08/07/2024 1:10 PM TRANSPORT RN 5 Active folic acid (Folvite) 1 MG tablet Take 1 (one) tablet by mouth once daily 30 tablet 08/07/2024 1:10 PM TRANSPORT RN 5 Active pantoprazole EC (Protonix) 40 MG tablet Take 1 (one) tablet by mouth 2 times daily, before breakfast and supper 60 tablet 08/07/2024 1:10 PM TRANSPORT RN 5 Active sucralfate (Carafate) 1 GM/10ML suspension Take 10 mL by mouth 4 times daily - before meals & nightly 420 mL 08/07/2024 1:10 PM TRANSPORT RN 5 Active Cholecalciferol (vitamin D3) 1.25 MG (03181 UT) capsule Take 1 (one) capsule by mouth every 7 days 5 capsule 5 Active furosemide (Lasix) 40 MG tablet Take 1 (one) tablet by mouth once daily 30 tablet 08/07/2024 1:10 PM TRANSPORT RN 5 Active Calcium Carbonate Antacid (calcium carbonate, 500 mg elemental Ca/5 mL,) 1250 MG/5ML suspension Take 10 mL by mouth 3 times daily with meals 473 mL 1 5 Active pancrelipase (Creon 24,000) 77053-[address]67 units capsule Take 1 (one) capsule by [...] medical care, and heating? Somewhat hard 07/28/2024 [facility] [place] of Occupat ional Health - Occupational Stress [...] any time in the past 12 m [facility], were you homeless or living in a intermediate (including now)? No 07/28/2024 Comments Unknown Sex and Gender Information Value Date Recorded Sex Assigned at Not on file Legal Sex Female 9:40 AM CDT Gender Identity Not on file Sexual Orientation Not on file Last Filed Vital Signs Vital Sign Reading Time Taken Comments Blood Pressure 112/78 08/07/2024 2:44 PM TRANSPORT RN Pulse 93 08/07/2024 2:44 PM TRANSPORT RN Temperature 37.5 C (99.5 F) 08/07/2024 11:33 AM TRANSPORT RN Respiratory Rate 18 08/07/2024 11:3 3 AM TRANSPORT RN Oxygen Saturation 97% 08/07/2024 2:44 PM TRANSPORT RN Inhaled Oxygen Concentration - - Weight 87.5 kg (192 lb 14.4 oz) 025 12:04 AM TRANSPORT RN Height 165.1 cm (5' 5) 07/28/2024 4:01 PM TRANSPORT RN Body Mass Index 32.1 07/28/2024 4:01 PM TRANSPORT RN Plan of Treatment Health Maintenance Due Date [...] patient's age to complete this topic Insurance [facility] Advance Directives Documents on File Type Date Recorded Patient Residential Life Director Expl anation Adv Directive/Living Will/POA 08/08/2024 10:51 PM Adv Directive/Living Will/POA 08/01/2024 8:23 PM Adv Directive/Living Will/POA 07/31/2024 7:48 PM * Full Code (Latest Code Status on File) Date Activated Date Inactivated Comments 07/28/2024 3:11 PM 08/07/2024 5:49 PM Care Teams Stone And Concrete Washer Relationship Specialty Start Date End Date Priyank Zepeda MD [address] [place] [address] PCP - General 02/23/22
--- OUTSIDE RECORDS SUMMARY | 2025-01-19 12:13 | XMS_ITS | Encounter Summary ---
Author Organization [facility] Address [address] [place] [address] Phone Care Team Providers Care Production Scheduler Name Role Phone Priyank Zepeda MD Primary Care Provider [phone] Reason for Visit * Reason Onset Date Comments Medication Management 08/13/2024 Encounter Details Date Type Department Care Team (Late st Contact Info) Description 08/13/2024 [facility] [address] [place] [address] Eloisa Ruiz, PT Medication Management Social History [...] filedocumented in this encounter Care Teams Production Scheduler Relationship Specialty Start Date End Date Priyank Zepeda MD [address] [place] [address] PCP - General Internal Medicine 08/08/24 documented as of this encounter
--- OUTSIDE RECORDS SUMMARY | 2025-01-19 12:13 | XMS_ITS | Clinical Summary ---
Author Organization [facility] Facility Address [address] [address] Care Team Providers Care Road Freight Conductor Name Role Phone Priyank Zepeda MD Primary Care Provider [phone] Allergies Active Allergy Reactions Criticality Noted Date [...] 5 Active Cholecalciferol (Vitamin D3) 1.25 MG (18472 UT) capsule Take 50,000 Units by mouth [...] Description 10/22/2024 10:45 AM CDT Office Visit [facility] [address] [facility] [address] [facility] [place] [address] Kristofer Ortiz MD Chronic kidney disease, stage 2 (mild) (Primary Dx); Hypertension; Anemia in chronic kidney disease; Secondary hyperparathyroidism of renal origin (HCC) 10/22/2024 Orders Only [facility] [address] [facility] [address] [facility] [address] [address] [place] [address] Ana Duran RN from Last 3 Months [...] CDT Respiratory Rate 18 05/15/2018 11:00 AM PHOTOGRAPHY SALES ASSOCIATE Oxygen Saturation 99% 10/22/2024 10:46 AM CDT Inhaled Oxygen Concentration - - Weight 63 kg (139 lb) 10/22/2024 10:46 AM CDT Height 160 cm (5' 3) 10/22/2024 10:46 AM CDT Body Mass Index 24.62 10/22/2024 10:46 AM CDT Plan of Treatment Upcoming Encounters Date Type Department Care Team (Late st Contact Info) Description 04/22/2025 11:45 AM PHOTOGRAPHY SALES ASSOCIATE Office Visit [facility] [address] [facility] [address] [place] [address] Kristofer Ortiz MD [address] [facility] [address] [place] [address] Health Maintenance Due Date Last Done Comments Breast Cancer Screening 1960 Pneumococcal Vaccine: 50+ Years (1 of 2 - PCV) 1978 Influenza Vaccine (#1) 2025 4, 03/27/2023, 03/06/2022, Additional history exists Colorectal Cancer Screening: Colonoscopy Discontinued 12/14/2023, 11/04/2021 Hepatitis B Vaccine Aged Out No longe r eligible based on patient's age to complete this topic Insurance [facility] Advance Directives Documents on File Type Date Recorded Patient Sewer System Supervisor Expl anation Power of Financial Investigator 10/25/2021 11:10 AM Othe r - POA Power of Financial Investigator 10/25/2021 11:10 AM Othe r - POA Care Teams Road Freight Conductor Relationship Specialty Start Date End Date Priyank Zepeda MD [address] [place] [address] PCP - General Internal Medicine 05/17/19
--- OUTSIDE RECORDS SUMMARY | 2025-01-19 12:13 | XMS_ITS | Clinical Summary ---
Author Organization [facility] Address [address] [place] [address] Care Team Providers Care Director Client Services Name Role Phone Gayla Villar Primary Care Provider [phone] Social History Tobacco Use Types Packs/Day Years Used Date Smoking Tobacco: Never Assessed Comments Unknown Sex and Gender Information Value Date Recorded Sex Assigned at Not on file Legal Sex Female 4:22 PM TERRITORY SALES EXECUTIVE Gender Identity Not on file Sexual Orientation [...] 75+ series) 2034 Insurance [place] Care Teams Director Client Services Relationship Specialty Start Date End Date Gayla Villar [address] [facility] [address] [place] [address] PCP - General 03/11/02
--- OUTSIDE RECORDS SUMMARY | 2025-01-19 12:13 | XMS_ITS | Encounter Summary ---
Author Organization [facility] Address [address] [facility] [place] [address] Phone Care Team Providers Care Log Sawyer Name Role Phone Priyank Zepeda MD Primary Care Provider [phone] Encounter Details Date Type Department Care Team (Late Contact Info) Description 01/03/2020 Orders Only [facility]. [address] [facility] [address] [place] [address] Kristofer Ortiz MD [address] [facility] [place] [address] Chronic kidney disease stage 3 [...] (Late Contact Info) Description 04/22/2025 11:45 AM TAX EXAMINER Office Visit [facility] [address] [facility] [place] [address] Kristofer Ortiz MD [address] [place] [address] [address] documented as of this encounter Visit Diagnoses Diagnosis Chronic kidney disease stage 3 (HCC) documented in this encounter Care Teams Log Sawyer Relationship Specialty Start Date End Date Priyank Zepeda MD [address] [place] [address] PCP - General Internal Medicine 05/17/19 documented as of this encounter
--- OUTSIDE RECORDS SUMMARY | 2025-01-19 12:13 | XMS_ITS | Clinical Summary ---
Author Organization [facility] Address [address] [address] Phone Care Team Providers Care Critical Care Clinical Nurse Specialist Name Role Phone Priyank Zepeda MD Primary Care Provider [phone] Allergies No known active allergies Medications calcium [...] route 2 times per day Active Pancrelipase, Zuf-Uafu-Lctp, (CREON PO) Take 24,000 Units by mouth 3 times daily (with meals). Take 1 capsule by mouth 3 times daily with meals Active spironolactone (ALDACTONE) 25 MG Tablet Take 25 mg by mouth daily. Active BETA CAROTENE PO Take 7,500 mcg by mouth daily. Active Cyanocobalamin (VITAMIN B12 PO) Take 2,500 mcg by mouth daily. Active pancrelipase, lipase-protease- amylase, (Creon) [address] Particles Take 1 Capsule [...] Documents on File Type Date Recorded Patient Data Conversion Analyst Expl anation Power of Poke In for Health Care 08/26/2024 9:18 AM POA-HC Power of Poke In for Health Care 08/26/2024 9:18 AM POA-HC Power of Poke In for Health Care 08/26/2024 9:13 AM POA-HC Power of Poke In for Health Care 08/26/2024 9:08 AM POA-HC Power of Poke In for Health Care 08/14/2024 12:10 PM POA HC 07/30/2024 * Full Code (Latest Code Status on File) Date Activated Date Inactivated Comments 08/13/2024 10:26 PM Care Teams Critical Care Clinical Nurse Specialist Relationship Specialty Start Date End Date Priyank Zepeda MD [address] [place] [address] PCP - General Internal Medicine 08/08/24
--- OUTSIDE RECORDS SUMMARY | 2025-01-19 12:13 | XMS_ITS | Clinical Summary ---
Author Organization [facility] Address [address] [place] [address] Care Team Providers Care Associate Director Regulatory Affairs Name Role Phone Priyank Zepeda MD Primary Care Provider [phone] Allergies Active Allergy Reactions Criticality Noted Date [...] Packs/Day Years Used Date Smoking Tobacco: Never [facility] [employer] Answer Date Recorded In the past 12 months has e [employer], [employer], oil, or water [employer] threatened to shut off services in your [...] in the [facility] 12 m [facility], were you homeless or living in [...] 1:27 AM 10/02/2023 3:59 PM Care Teams Associate Director Regulatory Affairs Relationship Specialty Start Date End Date Priyank Zepeda MD [address] [place] [address] PCP - General INTERNAL MEDICINE 09/19/19
== END 2025-01-19 12:02 | disposition home or self-care (01) ==
LOC: CHSED 12:12
PROVIDERS: Emergency Provider Family Medicine; PCP Internal Medicine
DX: M25.511 Pain in right shoulder (principal); E03.9 Hypothyroidism, unspecified; I12.9 Hypertensive chronic kidney disease with stage 1 through stage 4 chronic kidney disease, or unspecified chronic kidney disease; N18.9 Chronic kidney disease, unspecified; W01.0XXA Fall on same level from slipping, tripping and stumbling without subsequent striking against object, initial encounter
CPT/HCPCS: 73030; 73502; 99284

== ENCOUNTER 2025-01-21 10:49 | Outpatient (CLI) | payer OTHER, SELFPAY ==
[2025-01-21 12:45] LABS: Alanine Aminotransferase 101 U/L (6-35); Albumin Level 3.5 g/dL (3.5-5.1); Alkaline Phosphatase 125 U/L (38-126); Anion Gap 6 mmol/L (4-12); Aspartate Amino Transferase 92 U/L (14-36); Bilirubin,Total 1.1 mg/dL (0.2-1.3); Blood Urea Nitrogen 9 mg/dL (7-17); Calcium 8.6 mg/dL (8.4-10.2); Carbon Dioxide 25 mmol/L (22-30); Chloride 109 mmol/L (98-107); Estimated Glomerular Filt Rate > 60; Glucose 97 mg/dL (65-110); Osmolality Calculated 288 mOsm/kg (285-295); Potassium 3.7 mmol/L (3.4-5.0); Sodium 140 mmol/L (137-145); Total Protein 6.8 g/dL (6.3-8.2)
== END 2025-01-21 10:50 | disposition home or self-care (01) ==
LOC: CHSLAB 10:53
PROVIDERS: PCP Internal Medicine
DX: E03.9 Hypothyroidism, unspecified (principal)
CPT/HCPCS: 36415; 80053; 82306

== ENCOUNTER 2025-01-30 11:20 | Outpatient (CLI) | payer OTHER, SELFPAY ==
--- NOTE | ~2025-01-30 | XR_ITS ---
EXAMINATION: XR chest 2V 01/30/2025 11:44 INDICATION: Pleurodynia PROCEDURE: 2 view chest COMPARISON: Comparison to multiple prior studies sequentially, with oldest reviewed study dated 05/06/2021. FINDINGS: The lungs are clear. The cardiomediastinal silhouette is within normal limits. There are no pleural effusions. There is no pneumothorax suspected. IMPRESSION: 1: NO ACUTE CARDIOPULMONARY DISEASE. Reviewed, dictated and finalized at location O.
--- OUTSIDE RECORDS SUMMARY | 2025-01-30 11:24 | XMS_ITS | Encounter Summary ---
Author Organization [facility] Address [address] [place] [address] Phone Care Team Providers Care Electrical Solderer Name Role Phone Priyank Zepeda MD Primary Care Provider [phone] Encounter Details Date Type Department Care Team (Late Contact Info) Description 01/03/2020 Orders Only [facility] [address] [place] [address] Kristofer Ortiz MD [address] [place] [address] Chronic kidney disease stage 3 [...] (Late Contact Info) Description 04/22/2025 11:45 AM STUDENT LIFE ADVISOR Office Visit [facility] [address] [place] [address] Kristofer Ortiz MD [address] [place] [address] [address] documented as of this encounter Visit Diagnoses Diagnosis Chronic kidney disease stage 3 (HCC) documented in this encounter Care Teams Electrical Solderer Relationship Specialty Start Date End Date Priyank Zepeda MD [address] [place] [address] PCP - General Internal Medicine 05/17/19 documented as of this encounter
--- OUTSIDE RECORDS SUMMARY | 2025-01-30 11:24 | XMS_ITS | Encounter Summary ---
Author Organization [facility] Address [address] [place] [address] Care Team Providers Care Briquette Operator Name Role Phone Priyank Zepeda MD Primary Care Provider [phone] Encounter Details Date Type Department Care Team (Late st Contact Info) Description 10/03/2023 Hospital Follow-up Call [facility] [address] [place] [address] Chelsea Bishop RN Social History Tobacco Use Types Packs/Day Years Used Date Smoking Tobacco: Never [facility] Utilities Answer Date Recorded In the past 12 months has e electric, gas, oil, or water Shut Down threatened to shut off services in your [...] time in the past 12 m [facility], were you homeless or living in a halfway (including now)? No 09/28/2023 Comments Unknown Sex [...] on filedocumented in this encounter Care Teams Briquette Operator Relationship Specialty Start Date End Date Priyank Zepeda MD [address] [place] [address] PCP - General INTERNAL MEDICINE 09/19/19 documented as of this encounter
--- OUTSIDE RECORDS SUMMARY | 2025-01-30 11:24 | XMS_ITS | Encounter Summary ---
Author Organization [facility] Address [address] [place] [address] Phone Care Team Providers Care Exterior Designer Name Role Phone Priyank Zepeda MD Primary Care Provider [phone] Reason for Visit * Reason Onset Date Comments Medication Management 08/13/2024 Encounter Details Date Type Department Care Team (Late st Contact Info) Description 08/13/2024 [facility]phone [facility] [address] [place] [address] Eloisa Ruiz, PT Medication Management Social History [...] on filedocumented in this encounter Care Teams Exterior Designer Relationship Specialty Start Date End Date Priyank Zepeda MD [address] [place] [address] PCP - General Internal Medicine 08/08/24 documented as of this encounter
--- OUTSIDE RECORDS SUMMARY | 2025-01-30 11:24 | XMS_ITS | Clinical Summary ---
Author Organization [facility] Facility Address [address] [address] Care Team Providers Care Ground Intelligence Officer Name Role Phone Priyank Zepeda MD Primary Care Provider [phone] Allergies Active Allergy Reactions Criticality Noted Date [...] 5 Active Cholecalciferol (Vitamin D3) 1.25 MG (29055 UT) capsule Take 50,000 Units by mouth [...] CDT Respiratory Rate 18 05/15/2018 11:00 AM WRAPPER STEMMER HAND Oxygen Saturation 99% 10/22/2024 10:46 AM CDT Inhaled Oxygen Concentration - - Weight 63 kg (139 lb) 10/22/2024 10:46 AM CDT Height 160 cm (5' 3) 10/22/2024 10:46 AM CDT Body Mass Index 24.62 10/22/2024 10:46 AM CDT Plan of Treatment Upcoming Encounters Date Type Department Care Team (Late st Contact Info) Description 04/22/2025 11:45 AM WRAPPER STEMMER HAND Office Visit [facility] [address] [place] [address] Kristofer Ortiz MD [address] [place] [address] Health Maintenance Due Date Last Done Comments Breast Cancer Screening 1960 Pneumococcal Vaccine: 50+ Years (1 of 2 - PCV) 1978 Influenza Vaccine (#1) 2025 4, 03/27/2023, 03/06/2022, Additional history exists Colorectal Cancer Screening: Colonoscopy Discontinued 12/14/2023, 11/04/2021 Hepatitis B Vaccine Aged Out No longe r eligible based on patient's age to complete this topic Insurance [facility] Advance Directives Documents on File Type Date Recorded Patient Habilitation Worker Expl anation Power of Muck Boss 10/25/2021 11:10 AM Othe r - POA Power of Muck Boss 10/25/2021 11:10 AM Othe r - POA Care Teams Ground Intelligence Officer Relationship Specialty Start Date End Date Priyank Zepeda MD [address] [place] [address] PCP - General Internal Medicine 05/17/19
--- OUTSIDE RECORDS SUMMARY | 2025-01-30 11:24 | XMS_ITS | Encounter Summary ---
Author Organization [facility] Address [address] [place] [address] Phone Care Team Providers Care Storage Garage Attendant Name Role Phone Priyank Zepeda MD Primary Care Provider [phone] Reason for Visit * Reason Onset Date Comments Medication Management 08/16/2024 Encounter Details Date Type Department Care Team (Late st Contact Info) Description 08/16/2024 [facility] [address] [place] [address] Eloisa Ruiz, PT Medication Management Social History [...] on filedocumented in this encounter Care Teams Storage Garage Attendant Relationship Specialty Start Date End Date Priyank Zepeda MD [address] [place] [address] PCP - General Internal Medicine 08/08/24 documented as of this encounter
--- OUTSIDE RECORDS SUMMARY | 2025-01-30 11:24 | XMS_ITS | Clinical Summary ---
Author Organization [facility] Address [address] [address] Phone Care Team Providers Care Steel Welder Name Role Phone Priyank Zepeda MD Primary Care Provider [phone] Allergies No known active allergies Medications calcium [...] route 2 times per day Active Pancrelipase, Wfx-Exio-Oyfu, (CREON PO) Take 24,000 Units by mouth 3 times daily (with meals). Take 1 capsule by mouth 3 times daily with meals Active spironolactone (ALDACTONE) 25 MG Tablet Take 25 mg by mouth daily. Active BETA CAROTENE PO Take 7,500 mcg by mouth daily. Active Cyanocobalamin (VITAMIN B12 PO) Take 2,500 mcg by mouth daily. Active pancrelipase, lipase-protease- amylase, (Creon) [address] Particles Take 1 Capsule [...] Documents on File Type Date Recorded Patient Content Creation Manager Expl anation Power of Enterprise Application Analyst for Health Care 08/26/2024 9:18 AM POA-HC Power of Enterprise Application Analyst for Health Care 08/26/2024 9:18 AM POA-HC Power of Enterprise Application Analyst for Health Care 08/26/2024 9:13 AM POA-HC Power of Enterprise Application Analyst for Health Care 08/26/2024 9:08 AM POA-HC Power of Enterprise Application Analyst for Health Care 08/14/2024 12:10 PM POA HC 07/30/2024 * Full Code (Latest Code Status on File) Date Activated Date Inactivated Comments 08/13/2024 10:26 PM Care Teams Steel Welder Relationship Specialty Start Date End Date Priyank Zepeda MD [address] [place] [address] PCP - General Internal Medicine 08/08/24
--- OUTSIDE RECORDS SUMMARY | 2025-01-30 11:24 | XMS_ITS | Clinical Summary ---
Author Organization [facility] Address [address] [place] [address] Care Team Providers Care Records Management Specialist Name Role Phone Gayla Villar Primary Care Provider [phone] Social History Tobacco Use Types Packs/Day Years Used Date Smoking Tobacco: Never Assessed Comments Unknown Sex and Gender Information Value Date Recorded Sex Assigned at Not on file Legal Sex Female 4:22 PM BLOCKER AND POLISHER GOLD WHEEL Gender Identity Not on file Sexual Orientation [...] 75+ series) 2034 Insurance [place] Care Teams Records Management Specialist Relationship Specialty Start Date End Date Gayla Villar [address] [facility] [address] [place] [address] PCP - General 03/11/02
--- OUTSIDE RECORDS SUMMARY | 2025-01-30 11:24 | XMS_ITS | Clinical Summary ---
Author Organization [facility] Address [address] [place] [address] Care Team Providers Care Production Expediter Name Role Phone Priyank Zepeda MD Primary Care Provider [phone] Allergies Active Allergy Reactions Criticality Noted Date [...] Packs/Day Years Used Date Smoking Tobacco: Never [facility] [employer] Group[employer] Answer Date Recorded In the past 12 months has e [employer], oil, or water [employer] threatened to shut off services in your [...] any time in the past 12 m [facility], were you homeless or [...] topic Meningococcal Vaccine Aged Out No moe kie eligible based on patient's age to complete [...] 1:27 AM 10/02/2023 3:59 PM Care Teams Production Expediter Relationship Specialty Start Date End Date Priyank Zepeda MD [address] [place] [address] PCP - General INTERNAL MEDICINE 09/19/19
--- OUTSIDE RECORDS SUMMARY | 2025-01-30 11:24 | XMS_ITS | Encounter Summary ---
Author Organization [facility] Address [address] [facility] [place] [address] Phone Care Team Providers Care Desulfurizer Machine Name Role Phone Priyank Zepeda MD Primary Care Provider [phone] Encounter Details Date Type Department Care Team (Late st Contact Info) Description 09/04/2024 [facility] [address] [place] [address] Priyank Zepeda MD [address] [place] [address] Secondary hyperparathyroidism of renal origin [...] - 12.00 10(3)/mcL 09/04/2024 6:44 PM CDT [facility] RBC 3.31(L) 3.80 - 5.30 10(6)/mcL 09/04/2024 6:44 PM CDT [facility] HEMOGLOBIN (HGB) 10.2(L) 12.0 - 15.8 g/dL 09/04/2024 6:44 PM CDT [facility] HEMATOCRIT (HCT) 32.3(L) 36.0 - 47.0 % 09/04/2024 6:44 PM CDT [facility] MCV 97.6(H) 82.0 - 96.0 fL 09/04/2024 6:44 PM CDT [facility] MCH 30.8 26.0 - 34.0 pg 09/04/2024 6:44 PM CDT [facility] MCHC 31.6 31.0 - 36.0 g/dL 09/04/2024 6:44 PM CDT [facility] PLATELET COUNT 240 140 - 440 10(3)/mcL 09/04/2024 6:44 PM CDT [facility] RDW 18.8(H) 11.8 - 15.5 % 09/04/2024 6:44 PM CDT [facility] MPV 9.8 9.7 - 12.4 fL 09/04/2024 6:44 PM CDT [facility] NEUTROPHILS 75.4(H) 47.0 - 73.0 % 09/04/2024 6:44 PM CDT [facility] LYMPHOCYTES 11.9(L) 18.0 - 42.0 % 09/04/2024 6:44 PM CDT [facility] MONOCYTES 9.3 4.0 - 12.0 % 09/04/2024 6:44 PM CDT [facility] EOSINOPHILS 2.8 0.0 - 5.0 % 09/04/2024 6:44 PM CDT [facility] BASOPHILS 0.6 0.0 - 1.0 % 09/04/2024 6:44 PM CDT [facility] ABSOLUTE NEUTROPHILS 3.48 1.60 - 7.70 10(3)/mcL 09/04/2024 6:44 PM CDT [facility] ABSOLUTE LYMPHOCYTES 0.55(L) 1.30 - 3.20 10(3)/mcL 09/04/2024 6:44 PM CDT [facility] ABSOLUTE MONOCYTES 0.43 0.20 - 1.00 10(3)/mcL 09/04/2024 6:44 PM CDT [facility] ABSOLUTE EOSINOPHIL 0.13 0.00 - 0.40 10(3)/mcL 09/04/2024 6:44 PM CDT [facility] ABSOLUTE BASOPHILS 0.03 0.00 - 0.10 10(3)/mcL 09/04/2024 6:44 PM CDT [facility] NRBC PER 100 WBC 0 09/05/19 6:44 PM CDT [facility] RESULTS ARE CONSISTENT WITH PERIPHERAL SMEAR REVIEW Yes 09/04/2024 6:44 PM CDT [facility] RBC MORPHOLOGY CONSISTENT WITH INDICES Yes 09/04/2024 6:44 PM CDT [facility] Blood No Phlebotomy Charged / Unknown 09/04/2024 4:55 PM CDT 09/04/2024 6:06 PM CDT us Priyank Zepeda MD HEMATOLOGY ORDERABLES Final R esult [facility] [address] [place] [address] * (ABNORMAL) PREALBUMIN (PAB) (09/04/2024 4:55 PM CDT) Pathologist [facility] PRE ALBUMIN 13(L) 14 - 37 mg/dL 09/05/2024 6:00 PM CDT [facility] Blood No Phlebotomy Charged / Unknown 09/04/2024 4:55 PM CDT 09/04/2024 6:06 PM CDT us Priyank Zepeda MD CHEMISTRY ORDERABLES Final Re sult [facility] [address] [place] [address], * VITAMIN D, 25 HYDROXY TOTAL (09/04/2024 4:55 PM CDT) VITAMIN D, 25 HYDROX 19.0 ng/mL 09/04/2024 6:55 PM CDT [facility] Blood No Phlebotomy Charged / Unknown 09/04/2024 4:55 PM CDT 09/04/2024 6:06 PM CDT Narrative [facility] - 09/04/2024 6:55 PM CDT Published reference ranges for Vitamin D vary depending on time and place and method of testing, and on patient's age, sex, ethnicity and levels of other measured analytes such as parathormone, calcium and phosphorus. The result should be evaluated in conjunction with clinical findings and suspicions. [employer] of [employer] and Endocrine Clinical Practice Guidelines: Status Vitamin D levels (ng/mL) Deficient <=20 At risk of inadequacy 21-29 Sufficient 30-100 Centers of Disease Control and Prevention Guidelines: Status Vitamin D levels (ng/mL) Deficient <13 At risk of inadequacy 13-19 Sufficient 20-50 Possibly harmful >50 References: [employer], 2010 Dietary reference intakes for calcium and vitamin D. [place]: The National Academies Press. Yo M, Blayne N, Sara LEES, et al., Evaluation, treatment, and prevention of Vitamin D deficiency: an Endocrinology Clinical Practice Guideline. JCEM 2011 96: 7 2673-5216. Kiet A, Dario C, Yemi D, et al., Vitamin D Status: [place], , GAHS data brief, no. 59, [place]: National Center for Health Statistics. 2011. us Priyank Zepeda MD CHEMISTRY ORDERABLES Final Re sult [facility] [place] [address] * (ABNORMAL) THYROID STIMULATING HORMONE (TSH) (09/04/2024 4:55 PM CDT) TSH 9.593(H) 0.300 - 5.000 mIU/L 09/04/2024 6:56 PM CDT [facility] Blood No Phlebotomy Charged / Unknown 09/04/2024 4:55 PM CDT 09/04/2024 6:06 PM CDT us Priyank Zepeda MD CHEMISTRY ORDERABLES Final Re sult [facility] [address] [place] [address] * (ABNORMAL) PHOSPHORUS (PO4) (09/04/2024 4:55 PM CDT) PHOSPHORUS 2.3(L) 2.5 - 4.5 mg/dL 09/04/2024 6:39 PM CDT [facility] Blood No Phlebotomy Charged / Unknown 09/04/2024 4:55 PM CDT 09/04/2024 6:06 PM CDT us Priyank Zepeda MD CHEMISTRY ORDERABLES Final Re sult Performing Organization Address City/[facility]/ZIP Co de Phone Number [facility] [address] [place] [address] * (ABNORMAL) CMP (COMPREHENSIVE METABOLIC PANEL) (09/04/2024 4:55 PM CDT) SODIUM 143 136 - 145 mmol/L 09/04/2024 6:39 PM CDT [facility] POTASSIUM 4.0 3.5 - 5.1 mmol/L 09/04/2024 6:39 PM CDT [facility] CHLORIDE 114(H) 98 - 107 mmol/L 09/04/2024 6:39 PM CDT [facility] CO2, VENOUS 23 22 - 30 mmol/L 09/04/2024 6:39 PM CDT [facility] ANION GAP 10.0 <18.0 mmol/L 09/04/2024 6:39 PM CDT [facility] GLUCOSE 87 70 - 99 mg/dL 09/04/2024 6:39 PM CDT [facility] BUN 10 10 - 20 mg/dL 09/04/2024 6:39 PM CDT [facility] CREATININE, BLOOD 0.77 0.60 - 1.00 mg/dL 09/04/2024 6:39 PM [facility] BUN/CREATININE RATIO 13 12 - 20 ratio 09/04/2024 6:39 PM [facility] TOTAL PROTEIN 6.8 6.0 - 8.0 g/dL 09/04/2024 6:39 PM [facility] ALBUMIN 2.7(L) 3.5 - 5.0 g/dL 09/04/2024 6:39 PM [facility] A/G RATIO 0.7(L) 1.0 - 2.2 09/04/2024 6:39 PM [facility] CALCIUM 8.2(L) 8.7 - 10.5 mg/dL 09/04/2024 6:39 PM [facility] T BILI 0.4 0.2 - 1.2 mg/dL 09/04/2024 6:39 PM [facility] SGOT (AST) 52(H) <43 U/L 09/04/2024 6:39 PM [facility] SGPT (ALT) 37 <56 U/L 09/04/2024 6:39 PM [facility] ALKALINE PHOSPHATASE 137 40 - 150 U/L 09/04/2024 6:39 PM [facility] GFR, ESTIMATED >60 >=60 09/04/2024 6:39 PM [facility] Comment: Creatinine Clearance is the preferred criteria for selecting drug dose adjustments in renally impaired patients. The GFR is provided as additional pertinent clinical information. GFR is reported in mL/min/1.73 sq m. Calculation based on the Chronic Kidney Disease Epidemiology Collaboration (CKD- EPI) equation refit without adjustment for race. GFR, EST. >60 >=60 025 6:39 PM [facility] GFR, EST. NONAFRICAN >60 >=60 09/04/2024 6:39 PM [facility] Blood No Phlebotomy Charged / Unknown 09/04/2024 4:55 PM CDT 09/04/2024 6:06 PM CDT us Priyank Zepeda MD CHEMISTRY ORDERABLES Final Re sult [facility] [address] [place] [address] documented in this encounter Visit Diagnoses Diagnosis Secondary hyperparathyroidism of renal origin (HCC) Secondary hyperparathyroidism (of renal origin) Vitamin D deficiency, unspecified Hypothyroidism, unspecified documented in this encounter Care Teams Desulfurizer Machine Relationship Specialty Start Date End Date Priyank Zepeda MD [address] [place] [address] PCP - General Internal Medicine 08/08/24 documented as of this encounter
--- OUTSIDE RECORDS SUMMARY | 2025-01-30 11:24 | XMS_ITS | Encounter Summary ---
Author Organization [facility] Address [address] [place] [address] Phone Care Team Providers Care Makeup Instructor Name Role Phone Priyank Zepeda MD Primary Care Provider [phone] Encounter Details Date Type Department Care Team (Late Contact Info) Description 12/06/2019 Orders Only [facility]. [address] [place] [address] Kristofer Ortiz MD [address] [place] [address] Chronic kidney disease stage 3 [...] (Late Contact Info) Description 04/22/2025 11:45 AM REVIEW CONSULTANT Office Visit [facility] [address] [place] [address] Kristofer Ortiz MD [address] [place] [address] [address] documented as of this encounter Visit Diagnoses Diagnosis Chronic kidney disease stage 3 (HCC) documented in this encounter Care Teams Makeup Instructor Relationship Specialty Start Date End Date Priyank Zepeda MD [address] [place] [address] PCP - General Internal Medicine 05/17/19 documented as of this encounter
--- OUTSIDE RECORDS SUMMARY | 2025-01-30 11:25 | XMS_ITS | Clinical Summary ---
Author Organization [facility] [employer] Address [address] [place] [address] Care Team Providers Care Sugar Plantation Manager Name Role Phone Priyank Zepeda MD Primary Care Provider [phone] Source Comments [facility],non-owned Affiliates and Associated Physician Practices is amultiple site organization consisting of ambulatory clinics and hospital sitesin [place], [place]. This disclosure is being madepursuant to the Care Everywhere program and may not contain all information available regarding this patient. Last updated 18.[facility] [employer] Allergies Active Allergy Reactions Criticality Noted Date [...] once daily 42 Each 08/07/2024 1:10 PM [employer] 5 Active ferrous sulfate 325 (65 FE) MG tablet Take 1 (one) tablet by mouth once daily after lunch 30 tablet 08/07/2024 1:10 PM [employer] 5 Active folic acid (Folvite) 1 MG tablet Take 1 (one) tablet by mouth once daily 30 tablet 08/07/2024 1:10 PM [employer] 5 Active pantoprazole EC (Protonix) 40 MG tablet Take 1 (one) tablet by mouth 2 times daily, before breakfast and supper 60 tablet 08/07/2024 1:10 PM [employer] 5 Active sucralfate (Carafate) 1 GM/10ML suspension Take 10 mL by mouth 4 times daily - before meals & nightly 420 mL 08/07/2024 1:10 PM [employer] 5 Active Cholecalciferol (vitamin D3) 1.25 MG (07584 UT) capsule Take 1 (one) capsule by mouth every 7 days 5 capsule 5 Active furosemide (Lasix) 40 MG tablet Take 1 (one) tablet by mouth once daily 30 tablet 08/07/2024 1:10 PM [employer] 5 Active Calcium Carbonate Antacid (calcium carbonate, 500 mg elemental Ca/5 mL,) 1250 MG/5ML suspension Take 10 mL by mouth 3 times daily with meals 473 mL 1 5 Active pancrelipase (Creon 24,000) 935[address] units capsule Take 1 (one) capsule by [...] medical care, and heating? Somewhat hard 07/28/2024 [facility] [place] [facility] Occupat ional Health - Occupational Stress [...] living in a usp (including now)? No 07/28/2024 Comments Unknown Sex and Gender Information Value Date Recorded Sex Assigned at Not on file Legal Sex Female 9:40 AM CDT Gender Identity Not on file Sexual Orientation Not on file Last Filed Vital Signs Vital Sign Reading Time Taken Comments Blood Pressure 112/78 08/07/2024 2:44 PM [employer] Pulse 93 08/07/2024 2:44 PM [employer] Temperature 37.5 C (99.5 F) 08/07/2024 11:33 AM [employer] Respiratory Rate 18 08/07/2024 11:3 3 AM [employer] Oxygen Saturation 97% 08/07/2024 2:44 PM [employer] Inhaled Oxygen Concentration - - Weight 87.5 kg (192 lb 14.4 oz) 025 12:04 AM [employer] Height 165.1 cm (5' 5) 07/28/2024 4:01 PM [employer] Body Mass Index 32.1 07/28/2024 4:01 PM [employer] Plan of Treatment Health Maintenance Due Date [...] to complete this topic Insurance [facility] Advance Directives Documents on File Type Date Recorded Patient Crusher And Blender Operator Expl anation Adv Directive/Living Will/POA 08/08/2024 10:51 PM Adv Directive/Living Will/POA 08/01/2024 8:23 PM Adv Directive/Living Will/POA 07/31/2024 7:48 PM * Full Code (Latest Code Status on File) Date Activated Date Inactivated Comments 07/28/2024 3:11 PM 08/07/2024 5:49 PM Care Teams Sugar Plantation Manager Relationship Specialty Start Date End Date Priyank Zepeda MD [address] [place] [address] PCP - General 02/23/22
== END 2025-01-30 11:21 | disposition home or self-care (01) ==
PROVIDERS: PCP Internal Medicine; Visit Provider Nurse Practitioner Family
DX: R07.81 Pleurodynia (principal)
CPT/HCPCS: 71046

== ENCOUNTER 2025-03-06 23:05 | Emergency (ER) | payer OTHER, SELFPAY ==
--- NOTE | ~2025-03-06 | XR_ITS ---
EXAMINATION: XR ribs RT 2V, 03/06/2025 23:17 CDT HISTORY: FALL 6 DAYS AGO. LATERAL RIGHT RIB PAIN. COMPARISON: No comparisons available. Findings: No acute fracture or malalignment. No significant degenerative changes. Soft tissues unremarkable. Impression: No acute fracture or malalignment. Reviewed, dictated and finalized at location P. Impression: No acute fracture or malalignment.
--- OUTSIDE RECORDS SUMMARY | 2025-03-06 23:08 | XMS_ITS | Encounter Summary ---
Author Organization [facility] Address [address] [place] [address] Phone Care Team Providers Care Aoc Plans Intelligence Officer Name Role Phone Priyank Zepeda MD Primary Care Provider [phone] Reason for Visit * Reason Onset Date Comments Medication Management 08/16/2024 Encounter Details Date Type Department Care Team (Late st Contact Info) Description 08/16/2024 [facility] [address] [place] [address] Eloisa Ruiz, PT Medication Management Social History [...] [facility] patient was observation at [facility] for low potassium from /08/15/24. A [...] on filedocumented in this encounter Care Teams Aoc Plans Intelligence Officer Relationship Specialty Start Date End Date Priyank Zepeda MD [address] [place] [address] PCP - General Internal Medicine 08/08/24 documented as of this encounter
--- OUTSIDE RECORDS SUMMARY | 2025-03-06 23:08 | XMS_ITS | Encounter Summary ---
Author Organization [facility] Address [address] [place] [address] Phone Care Team Providers Care Insurance Coder Name Role Phone Priyank Zepeda MD Primary Care Provider [phone] Encounter Details Date Type Department Care Team (Late Contact Info) Description 12/06/2019 Orders Only [facility] [address] [place] [address] Kristofer Ortiz MD [address] [place] [address] Chronic kidney disease stage 3 [...] (Late Contact Info) Description 04/22/2025 11:45 AM STORAGE AND BACKUP ADMINISTRATOR Office Visit [facility] [address] [place] [address] Kristofer Ortiz MD [address] [place] [address] [address] documented as of this encounter Visit Diagnoses Diagnosis Chronic kidney disease stage 3 (HCC) documented in this encounter Care Teams Insurance Coder Relationship Specialty Start Date End Date Priyank Zepeda MD [address] [place] [address] PCP - General Internal Medicine 05/17/19 documented as of this encounter
--- OUTSIDE RECORDS SUMMARY | 2025-03-06 23:08 | XMS_ITS | Data Portability ---
Author Organization [facility], [address] [facility] Address [address] [place] [address] Care Team Providers Care Sales Leader Name Role Phone KIERAN CALL Primary Care Provider Assessment Encounter Date Assessment Date Assessment LastModified by Organization Details LastModified Time 10/17/2023 10/17/2023 - Keep already scheduled appointment with GI -secure an appointment with hematology -follow up with your PCP if needed -Call this office with any questions or concerns [email or web address] Not available 10/17/2023 14:57:46 Plan of Treatment [...] city possi ble) ----- 53.3 Not Available [facility] - All Sites [address], [place], [address], 06/05/2024 01:21:09 10/02/19 24 10/02/2023 PTH (para [...] Not Available [facility] [address], [address], 06/05/2024 01:21:09 10/02/19 24 10/02/2023 phosp horus , serum or plasm a phosphorus 2 mg/dL 2.5-4. 9 low Not Available Test [facility] [address] [place], [address], 06/05/2024 01:21:08 10/02/19 24 10/02/2023 BMP, blood sodium 140 mmol/ L 136-14 5 Not Available [facility] [address], [place], [address], 06/05/2024 01:21:02 10/02/19 24 10/02/2023 BMP, blood potassium 2.9 mmol/ L 3.5-5. 1 low criti benjamin resul t(s) dial d to and read back by: vicky blanton at: 16:07 :22 10/01 by assp. ----- 2.9 Not Available [facility] [address], [place], [address], 06/05/2024 01:21:02 10/02/19 24 10/02/2023 BMP, blood chloride 110 mmol/ L 98-107 high Not Available [facility] [address], [place], [address], 06/05/2024 01:21:02 10/02/19 24 10/02/2023 BMP, blood CO2 24.9 mmol/ L 21.0-3 2.0 Not Available [facility] [address], [place], [address], 06/05/2024 01:21:02 10/02/19 24 10/02/2023 BMP, blood anion gap 5.1 mmol/ L 5.0-15 .0 Not Available [facility] [address], [place], [address], 06/05/2024 01:21:02 10/02/19 24 10/02/2023 BMP, blood glucose 116 mg/dL 74-106 high Not Available [facility] [address], [place], [address], 06/05/2024 01:21:02 10/02/19 24 10/02/2023 BMP, blood BUN 11 mg/dL 7-18 Not Available [facility] [address], [place], [address], 06/05/2024 01:21:02 10/02/19 24 10/02/2023 BMP, blood creatinine 0.91 mg/dL 0.55-1 .02 Not Available [facility] [address], [place], [address], 06/05/2024 01:21:02 10/02/19 24 10/02/2023 BMP, blood calcium 7.8 mg/dL 8.5-10 .1 low Not Available [facility] [address], [place], [address], 06/05/2024 01:21:02 10/02/19 24 10/02/2023 BMP, blood eGFR 70 mL/mi n/1.7 3_M2 >90 low Not Available [facility] [address] [place], [address], 06/05/2024 01:21:02 10/02/19 24 10/02/2023 BMP, blood calculated osmolality 290 mOsm/ kg refer ence range not estab lishe d ----- 290 Not Available [facility] [address], [place], [address], 06/05/2024 01:21:02 10/02/19 24 10/02/2023 BMP, blood GFR notes GFR refere nces: the estim ated GFR IS calcu lated using the 2020 CKD-e pi equat ion. the follo wing categ ories for gradi ng renal funct ion are recom bairon d by the [facility] ty of nephr ology (kdig [...] n/1.7 3 m2 ----- Not Available [facility] [address], [place], [address], 06/05/2024 01:21:02 01/18/20 24 12/07/2022 imagi ng/di [...] Name and Address Organization Details Recorded Time 710583 adhesive tape environme nt,medica tion rash Not available Not available 07/03/20232013 React ion: Rash; Comme nt: Adhes messi Tape React ion Date: 27 Jul 2012 ; Not Available [facility] 22:47:28 475745 Cipro medicatio n Not available Not available Not available 07/03/20232013 71233 3 RxNorm Comme nt: React ion Date: 01 Jan 2013 ; Not Available [facility] 4 22:47:29 864988 succinylc holine chloride medicatio n Not available Not available Not available 07/03/20232015 3565 RxNorm Not Available [facility] 4 22:47:29 Medications Name Sig Start Date Stop Date Status Note LastModified by Organization Details LastModified Time Prescription - New active Riverboat Captain: MEGHAN NIMESH (Audiology) , Sergey n Form Not Available Not Available Not Available Vitals Date Recorded Body height Oxygen saturation Oxygen saturation in Arterial blood by Pulse oximetry Heart rate Body temperature Respiratory rate Systolic And Diastolic Provider Name and Address Organization Details Last Updated DateTime 166.37 cm 97 % 97 % 64 /min 97.7 [degF] 18 /min 123/74 mm[Hg] Tina cuello [facility] 14:41:31 Social History Question Answer [...] Do You Have A Medical Power Of Distillation Operator Helper? Yes [id number] Information not available 10/16/2023 [...] Condition Response Anxiety Disorder Y Diabetes N Attention-deficit Hyperactivity Disorder N Bleeding Disorder N High Blood Pressure Y Arthritis [...] Diagnosis SNOMED-CT Code Diagnosis ICD10 Code Diagnosis IMO Codes Diagnosis Note [id number] SUSU PENNY [facility] [address] [place] [address] 10/17/2023 14:31:01 10/18/2023 15:51:26 Hospital inpatient stay within past 30 days 5320757704 106 Z76.89 Health Concerns Section Related Observation LastModified by Organization Detai ls LastModified Time None Recorded Concern Status LastModified by Organization Details LastModified Time None Recorded Advance Directives Directive Y: Payers Insurance Date Sequence Insurance Name Policy Number Policy Juares Covered Member ID Juares Member ID Guarantor Name 11/20/2023 1 [facility] - DOS ON OR AFTER 20 (MEDICAID REPLACEMENT - HMO) Louise Moore [id number] Louise Moore 10/02/2023 1 *SELF PAY* Sh nadeem Moore Notes Date Note Type Note Provider Name and Address Organization Details Recorded Time 10/17/2023 text/html Pt presents to the office today for a hospital follow up. [...] appointment scheduled for November 01 with GI LEAN COACH for consultation. She is eating and drinking well. She denies n/v. YULISSA MARTINEZ, SEAT BUILDER-C [address] [place] [address], [phone], [facility] 10/17/2023 14:58:51 OBGyn Episode No OBEpisode recorded.
--- OUTSIDE RECORDS SUMMARY | 2025-03-06 23:08 | XMS_ITS | Clinical Summary ---
Author Organization [facility] Address [address] [place] [address] Care Team Providers Care Job Training Supervisor Name Role Phone Priyank Zepeda MD Primary Care Provider [phone] Allergies Active Allergy Reactions Criticality Noted Date [...] Packs/Day Years Used Date Smoking Tobacco: Never [facility] Capillary Technologiesities Answer Date Recorded In the past 12 months has e Shook, Pag[employer], oil, or water Linguee threatened to shut off services in your [...] Scan (General) 2024 COVID-19 Vaccine ( season) 2025 03/19/2024, 03/27/2023, 03/06/2022, Additional history exists DTaP, [...] AM 10/02/2023 3:59 PM Care Teams Job Training Supervisor Relationship Specialty Start Date End Date Priyank Zepeda MD [address] [place] [address] PCP - General INTERNAL MEDICINE 09/19/19
--- OUTSIDE RECORDS SUMMARY | 2025-03-06 23:08 | XMS_ITS | Clinical Summary ---
Author Organization [facility] Address [address] [place] [address] Care Team Providers Care Podiatric Foot And Ankle Specialist Name Role Phone Gayla Villar Primary Care Provider [phone] Social History Tobacco Use Types Packs/Day Years Used Date Smoking Tobacco: Never Assessed Comments Unknown Sex and Gender Information Value Date Recorded Sex Assigned at Not on file Legal Sex Female 4:22 PM MEETING FACILITATOR Gender Identity Not on file Sexual Orientation [...] OSTEOPOROSIS SCREENING 05/05/2014 COVID-19 VACCINE ( - 2023- season) 2025 INFLUENZA VACCINE (#1) 2025 Adult RSV VACCINE (1 - 1-dose 75+ series) 2034 Insurance [place] Care Teams Podiatric Foot And Ankle Specialist Relationship Specialty Start Date End Date Gayla Villar [address] [facility] [address] [place] [id number] PCP - General 03/11/02
--- OUTSIDE RECORDS SUMMARY | 2025-03-06 23:08 | XMS_ITS | Clinical Summary ---
Author Organization [facility] Address [address] [address] Phone Care Team Providers Care Land Surveying Party Chief Name Role Phone Priyank Zepeda MD Primary Care Provider [phone] Allergies No known active allergies Medications calcium [...] route 2 times per day Active Pancrelipase, Cyr-Zwoh-Hpdr, (CREON PO) Take 24,000 Units by mouth 3 times daily (with meals). Take 1 capsule by mouth 3 times daily with meals Active spironolactone (ALDACTONE) 25 MG Tablet Take 25 mg by mouth daily. Active BETA CAROTENE PO Take 7,500 mcg by mouth daily. Active Cyanocobalamin (VITAMIN B12 PO) Take 2,500 mcg by mouth daily. Active pancrelipase, lipase-protease- amylase, (Creon) [address]-[address] Particles Take 1 Capsule [...] Blood 2004 Mammogram 11/18/2021 11/18/2020, 11/03, 11/01/2019 Influenza Immunization (#1) 02/03/202503/05, 03/27/2023, 03/06/2022, Additional history exists SARS-COV-2 Immunization ( season) 2025 03/19/2024, 03/27/2023, 03/06/2022, Additional history exists TdaP [...] Documents on File Type Date Recorded Patient Principal Archaeologist Expl anation Power of Family Preservation Worker for Health Care 08/26/2024 9:18 AM POA-HC Power of Family Preservation Worker for Health Care 08/26/2024 9:18 AM POA-HC Power of Family Preservation Worker for Health Care 08/26/2024 9:13 AM POA-HC Power of Family Preservation Worker for Health Care 08/26/2024 9:08 AM POA-HC Power of Family Preservation Worker for Health Care 08/14/2024 12:10 PM POA HC 07/30/2024 * Full Code (Latest Code Status on File) Date Activated Date Inactivated Comments 08/13/2024 10:26 PM Care Teams Land Surveying Party Chief Relationship Specialty Start Date End Date Priyank Zepeda MD [address] [place] [address] PCP - General Internal Medicine 08/08/24
--- OUTSIDE RECORDS SUMMARY | 2025-03-06 23:08 | XMS_ITS | Clinical Summary ---
Author Organization [facility] Facility Address [address] [address] Care Team Providers Care Mobile Qa Tester Name Role Phone Priyank Zepeda MD Primary Care Provider [phone] Allergies Active Allergy Reactions Criticality Noted Date [...] 5 Active Cholecalciferol (Vitamin D3) 1.25 MG (83101 UT) capsule Take 50,000 Units by mouth [...] CDT Respiratory Rate 18 05/15/2018 11:00 AM CARDIAC CATH RN Oxygen Saturation 99% 10/22/2024 10:46 AM CDT Inhaled Oxygen Concentration - - Weight 63 kg (139 lb) 10/22/2024 10:46 AM CDT Height 160 cm (5' 3) 10/22/2024 10:46 AM CDT Body Mass Index 24.62 10/22/2024 10:46 AM CDT Plan of Treatment Upcoming Encounters Date Type Department Care Team (Late st Contact Info) Description 04/22/2025 11:45 AM CARDIAC CATH RN Office Visit [facility] Evgeny. [address] [facility] [address] [place] [address] Kristofer Ortiz MD [address] [facility] [address] [place] [address] Health Maintenance Due Date Last Done Comments Breast Cancer Screening 1960 Pneumococcal Vaccine: 50+ Years (1 of 2 - PCV) 1978 Influenza Vaccine (#1) 2025 4, 03/27/2023, 03/06/2022, Additional history exists Colorectal Cancer Screening: Colonoscopy Discontinued 12/14/2023, 11/04/2021 Hepatitis B Vaccine Aged Out No longe r eligible based on patient's age to complete this topic Insurance [facility] Advance Directives Documents on File Type Date Recorded Patient Quality Improvement Coordinator Expl anation Power of Import Coordinator 10/25/2021 11:10 AM Othe r - POA Power of Import Coordinator 10/25/2021 11:10 AM Othe r - POA Care Teams Mobile Qa Tester Relationship Specialty Start Date End Date Priyank Zepeda MD [address] [place] [address] PCP - General Internal Medicine 05/17/19
--- OUTSIDE RECORDS SUMMARY | 2025-03-06 23:08 | XMS_ITS | Encounter Summary ---
Author Organization [facility] Address [address] [place] [address] Phone Care Team Providers Care Vehicle Glass Technician Name Role Phone Priyank Zepeda MD Primary Care Provider [phone] Encounter Details Date Type Department Care Team (Late st Contact Info) Description 09/04/2024 Lab [facility] [address] [place] [address] Priyank Zepeda MD [address] [place] [address] Secondary hyperparathyroidism of renal origin [...] - 12.00 10(3)/mcL 09/04/2024 6:44 PM CDT [facility] RBC 3.31(L) 3.80 - 5.30 10(6)/mcL 09/04/2024 6:44 PM CDT [facility] HEMOGLOBIN (HGB) 10.2(L) 12.0 - 15.8 g/dL 09/04/2024 6:44 PM CDT [facility] HEMATOCRIT (HCT) 32.3(L) 36.0 - 47.0 % 09/04/2024 6:[address] [facility] MCV 97.6(H) 82.0 - 96.0 fL 09/04/2024 6:44 PM CDT [facility] MCH 30.8 26.0 - 34.0 pg 09/04/2024 6:[address] [facility] MCHC 31.6 31.0 - 36.0 g/dL 09/04/2024 6:[address] [facility] PLATELET COUNT 240 140 - 440 10(3)/mcL 09/04/2024 6:[address] [facility] RDW 18.8(H) 11.8 - 15.5 % 09/04/2024 6:[address] [facility] MPV 9.8 9.7 - 12.4 fL 09/04/2024 6:[address] [facility] NEUTROPHILS 75.4(H) 47.0 - 73.0 % 09/04/2024 6:[address] [facility] LYMPHOCYTES 11.9(L) 18.0 - 42.0 % 09/04/2024 6:[address] [facility] MONOCYTES 9.3 4.0 - 12.0 % 09/04/2024 6:[address] [facility] EOSINOPHILS 2.8 0.0 - 5.0 % 09/04/2024 6:[address] [facility] BASOPHILS 0.6 0.0 - 1.0 % 09/04/2024 6:[address] [facility] ABSOLUTE NEUTROPHILS 3.48 1.60 - 7.70 10(3)/mcL 09/04/2024 6:[address] [facility] ABSOLUTE LYMPHOCYTES 0.55(L) 1.30 - 3.20 10(3)/mcL 09/04/2024 6:[address] [facility] ABSOLUTE MONOCYTES 0.43 0.20 - 1.00 10(3)/mcL 09/04/2024 6:[address] [facility] ABSOLUTE EOSINOPHIL 0.13 0.00 - 0.40 10(3)/mcL 09/04/2024 6:44 PM CDT [facility] ABSOLUTE BASOPHILS 0.03 0.00 - 0.10 10(3)/mcL 09/04/2024 6:[address] [facility] NRBC PER 100 WBC 0 09/05/19 6:44 PM CDT [facility] RESULTS ARE CONSISTENT WITH PERIPHERAL SMEAR REVIEW Yes 09/04/2024 6:44 PM CDT [facility] RBC MORPHOLOGY CONSISTENT WITH INDICES Yes 09/04/2024 6:44 PM CDT [facility] Blood No Phlebotomy Charged / Unknown 09/04/2024 4:55 PM CDT 09/04/2024 6:06 PM CDT us Priyank Zepeda MD HEMATOLOGY ORDERABLES Final R esult [facility] [address] [place] [address] * (ABNORMAL) PREALBUMIN (PAB) (09/04/2024 4:55 PM CDT) Pathologist [facility] PRE ALBUMIN 13(L) 14 - 37 mg/dL 09/05/2024 6:00 PM CDT [facility] Blood No Phlebotomy Charged / Unknown 09/04/2024 4:55 PM CDT 09/04/2024 6:06 PM CDT us Priyank Zepeda MD CHEMISTRY ORDERABLES Final Re sult [facility] [address] [place] [address], * VITAMIN D, 25 HYDROXY TOTAL (09/04/2024 4:55 PM CDT) VITAMIN D, 25 HYDROX 19.0 ng/mL 09/04/2024 6:[address] [facility] Blood No Phlebotomy Charged / Unknown 09/04/2024 4:55 PM CDT 09/04/2024 6:06 PM CDT Narrative [facility] - 09/04/2024 6:55 PM CDT Published reference ranges for Vitamin D vary depending on time and place and method of testing, and on patient's age, sex, ethnicity and levels of other measured analytes such as parathormone, calcium and phosphorus. The result should be evaluated in conjunction with clinical findings and suspicions. [employer] of Medicine and Endocrine Clinical Practice Guidelines: Status Vitamin D levels (ng/mL) Deficient <=20 At risk of inadequacy 21-29 Sufficient 30-100 Centers of Disease Control and Prevention Guidelines: Status Vitamin D levels (ng/mL) Deficient <13 At risk of inadequacy 13-19 Sufficient 20-50 Possibly harmful >50 References: [employer] of Medicine, 2010 Dietary reference intakes for calcium and vitamin D. [place]: The National Academies Press. Yo M, Blayne N, Sara LEES, et al., Evaluation, treatment, and prevention of Vitamin D deficiency: an Endocrinology Clinical Practice Guideline. JCEM 2011 96: 7 2035-9576. Kiet A, Dario C, Yemi D, et al., Vitamin D Status: [place], , AZHS data brief, no. 59, [place]: National Center for Health Statistics. 2011. us Priyank Zepeda MD CHEMISTRY ORDERABLES Final Re sult [facility] [address] [place] [address] * (ABNORMAL) THYROID STIMULATING HORMONE (TSH) (09/04/2024 4:55 PM CDT) TSH 9.593(H) 0.300 - 5.000 mIU/L 09/04/2024 6:56 PM CDT [facility] Blood No Phlebotomy Charged / Unknown 09/04/2024 4:55 PM CDT 09/04/2024 6:06 PM CDT us Priyank Zepeda MD CHEMISTRY ORDERABLES Final Re sult [facility] [address] [place] [address] * (ABNORMAL) PHOSPHORUS (PO4) (09/04/2024 4:55 PM CDT) PHOSPHORUS 2.3(L) 2.5 - 4.5 mg/dL 09/04/2024 6:39 PM CDT [facility] Blood No Phlebotomy Charged / Unknown 09/04/2024 4:55 PM CDT 09/04/2024 6:06 PM CDT us Priyank Zepeda MD CHEMISTRY ORDERABLES Final Re sult Performing Organization Address City/[facility]/ZIP Co de Phone Number [facility] [address] [place] [address] * (ABNORMAL) CMP (COMPREHENSIVE METABOLIC PANEL) (09/04/2024 4:55 PM CDT) SODIUM 143 136 - 145 mmol/L 09/04/2024 6:[address] [facility] POTASSIUM 4.0 3.5 - 5.1 mmol/L 09/04/2024 6:[address] [facility] CHLORIDE 114(H) 98 - 107 mmol/L 09/04/2024 6:[address] [facility] CO2, VENOUS 23 22 - 30 mmol/L 09/04/2024 6:[address] [facility] ANION GAP 10.0 <18.0 mmol/L 09/04/2024 6:[address] [facility] GLUCOSE 87 70 - 99 mg/dL 09/04/2024 6:[address] [facility] BUN 10 10 - 20 mg/dL 09/04/2024 6:[address] [facility] CREATININE, BLOOD 0.77 0.60 - 1.00 mg/dL 09/04/2024 6:39 PM [facility] BUN/CREATININE RATIO 13 12 - 20 ratio 09/04/2024 6:39 PM [facility] TOTAL PROTEIN 6.8 6.0 - 8.0 g/dL 09/04/2024 6:39 PM [facility] ALBUMIN 2.7(L) 3.5 - 5.0 g/dL 09/04/2024 6:39 PM [facility] A/G RATIO 0.7(L) 1.0 - 2.2 09/04/2024 6:39 PM [facility] CALCIUM 8.2(L) 8.7 - 10.5 mg/dL 09/04/2024 6:39 PM [facility] T BILI 0.4 0.2 - 1.2 mg/dL 09/04/2024 6:39 PM [facility] SGOT (AST) 52(H) <43 U/L 09/04/2024 6:39 PM [facility] SGPT (ALT) 37 <56 U/L 09/04/2024 6:39 PM [facility] ALKALINE PHOSPHATASE 137 40 - 150 U/L 09/04/2024 6:39 PM [facility] GFR, ESTIMATED >60 >=60 09/04/2024 6:39 PM [facility] Comment: Creatinine Clearance is the preferred criteria for selecting drug dose adjustments in renally impaired patients. The GFR is provided as additional pertinent clinical information. GFR is reported in mL/min/1.73 sq m. Calculation based on the Chronic Kidney Disease Epidemiology Collaboration (CKD- EPI) equation refit without adjustment for race. GFR, EST. >60 >=60 025 6:39 PM [facility] GFR, EST. NONAFRICAN >60 >=60 09/04/2024 6:39 PM [facility] Blood No Phlebotomy Charged / Unknown 09/04/2024 4:55 PM CDT 09/04/2024 6:06 PM CDT us Priyank Zepeda MD CHEMISTRY ORDERABLES Final Re sult [facility] [address] [place] [address] documented in this encounter Visit Diagnoses Diagnosis Secondary hyperparathyroidism of renal origin Secondary hyperparathyroidism (of renal origin) Vitamin D deficiency, unspecified Hypothyroidism, unspecified documented in this encounter Care Teams Vehicle Glass Technician Relationship Specialty Start Date End Date Priyank Zepeda MD [address] [place] [address] PCP - General Internal Medicine 08/08/24 documented as of this encounter
--- OUTSIDE RECORDS SUMMARY | 2025-03-06 23:08 | XMS_ITS | Clinical Summary ---
Author Organization [facility] Address [address] [place] [address] Care Team Providers Care Music Adapter Name Role Phone Priyank Zepeda MD Primary Care Provider [phone] Source Comments [facility],non-owned Affiliates and Associated Physician Practices is amultiple site organization consisting of ambulatory clinics and hospital sitesin [place], [place], [place] and [place]. This disclosure is being madepursuant to the Care Everywhere program and may not contain all information available regarding this patient. Last updated 18.[facility] Allergies Active Allergy Reactions Criticality Noted Date [...] once daily 42 Each 08/07/2024 1:10 PM HOSPICE VOLUNTEER COORDINATOR 5 Active ferrous sulfate 325 (65 FE) MG tablet Take 1 (one) tablet by mouth once daily after lunch 30 tablet 08/07/2024 1:10 PM HOSPICE VOLUNTEER COORDINATOR 5 Active folic acid (Folvite) 1 MG tablet Take 1 (one) tablet by mouth once daily 30 tablet 08/07/2024 1:10 PM HOSPICE VOLUNTEER COORDINATOR 5 Active pantoprazole EC (Protonix) 40 MG tablet Take 1 (one) tablet by mouth 2 times daily, before breakfast and supper 60 tablet 08/07/2024 1:10 PM HOSPICE VOLUNTEER COORDINATOR 5 Active sucralfate (Carafate) 1 GM/10ML suspension Take 10 mL by mouth 4 times daily - before meals & nightly 420 mL 08/07/2024 1:10 PM HOSPICE VOLUNTEER COORDINATOR 5 Active Cholecalciferol (vitamin D3) 1.25 MG (60795 UT) capsule Take 1 (one) capsule by mouth every 7 days 5 capsule 5 Active furosemide (Lasix) 40 MG tablet Take 1 (one) tablet by mouth once daily 30 tablet 08/07/2024 1:10 PM HOSPICE VOLUNTEER COORDINATOR 5 Active Calcium Carbonate Antacid (calcium carbonate, 500 mg elemental Ca/5 mL,) 1250 MG/5ML suspension Take 10 mL by mouth 3 times daily with meals 473 mL 1 5 Active pancrelipase (Creon 24,000) 64[address] units capsule Take 1 (one) capsule by [...] medical care, and heating? Somewhat hard 07/28/2024 [facility] [place] [facility] Occupat ional Health - Occupational Stress [...] time in the [facility] were you homeless or living in a assisted (including now)? No 07/28/2024 Comments Unknown Sex and Gender Information Value Date Recorded Sex Assigned at Not on file Legal Sex Female 9:40 AM CDT Gender Identity Not on file Sexual Orientation Not on file Last Filed Vital Signs Vital Sign Reading Time Taken Comments Blood Pressure 112/78 08/07/2024 2:44 PM HOSPICE VOLUNTEER COORDINATOR Pulse 93 08/07/2024 2:44 PM HOSPICE VOLUNTEER COORDINATOR Temperature 37.5 C (99.5 F) 08/07/2024 11:33 AM HOSPICE VOLUNTEER COORDINATOR Respiratory Rate 18 08/07/2024 11:3 3 AM HOSPICE VOLUNTEER COORDINATOR Oxygen Saturation 97% 08/07/2024 2:44 PM HOSPICE VOLUNTEER COORDINATOR Inhaled Oxygen Concentration - - Weight 87.5 kg (192 lb 14.4 oz) 025 12:04 AM HOSPICE VOLUNTEER COORDINATOR Height 165.1 cm (5' 5) 07/28/2024 4:01 PM HOSPICE VOLUNTEER COORDINATOR Body Mass Index 32.1 07/28/2024 4:01 PM HOSPICE VOLUNTEER COORDINATOR Plan of Treatment Health Maintenance Due Date [...] DEPRESSION SCREENING 06/05/2024 COVID-19 VACCINE ( season) 2025 03/19/2024, 03/27/2023, 03/06/2022, Additional history exists INFLUENZA [...] patient's age to complete this topic Insurance [facility] Advance Directives Documents on File Type Date Recorded Patient Fire Services Plumber Expl anation Adv Directive/Living Will/POA 08/08/2024 10:51 PM Adv Directive/Living Will/POA 08/01/2024 8:23 PM Adv Directive/Living Will/POA 07/31/2024 7:48 PM * Full Code (Latest Code Status on File) Date Activated Date Inactivated Comments 07/28/2024 3:11 PM 08/07/2024 5:49 PM Care Teams Music Adapter Relationship Specialty Start Date End Date Priyank Zepeda MD [address] [place] [address] PCP - General 02/23/22
--- OUTSIDE RECORDS SUMMARY | 2025-03-06 23:08 | XMS_ITS | Encounter Summary ---
Author Organization [facility] Address [address] [place] [address] Care Team Providers Care Car Lot Attendant Name Role Phone Priyank Zepeda MD Primary Care Provider [phone] Encounter Details Date Type Department Care Team (Late st Contact Info) Description 10/03/2023 Hospital Follow-up Call [facility] Cardi[facility] Unit [address] [place] [address] Chelsea Bishop RN Social History Tobacco Use Types Packs/Day Years Used Date Smoking Tobacco: Never [facility] Utilities Answer Date Recorded In the past 12 months has e electric, gas, oil, or water [employer] threatened to shut off services in your [...] any time in the past 12 m [facility], were you homeless or [...] on filedocumented in this encounter Care Teams Car Lot Attendant Relationship Specialty Start Date End Date Priyank Zepeda MD [address] [place] [address] PCP - General INTERNAL MEDICINE 09/19/19 documented as of this encounter
--- OUTSIDE RECORDS SUMMARY | 2025-03-06 23:08 | XMS_ITS | Encounter Summary ---
Author Organization [facility] Address [address] [place] [address] Phone Care Team Providers Care Octave Board Racker Name Role Phone Priyank Zepeda MD Primary Care Provider [phone] Encounter Details Date Type Department Care Team (Late Contact Info) Description 01/03/2020 Orders Only [facility] Evgeny. [address] [place] [address] Kristofer Ortiz MD [address] [place] [address] Chronic kidney disease stage 3 [...] (Late Contact Info) Description 04/22/2025 11:45 AM PUBLIC WORKS INSPECTOR Office Visit [facility] [address]. [address] [place] [address] Kristofer Ortiz MD [address] [place] [address] [address] documented as of this encounter Visit Diagnoses Diagnosis Chronic kidney disease stage 3 (HCC) documented in this encounter Care Teams Octave Board Racker Relationship Specialty Start Date End Date Priyank Zepeda MD [address] [place] [address] PCP - General Internal Medicine 05/17/19 documented as of this encounter
[2025-03-06 23:10] VITALS: BP 146/81; PULSE 79; RESP 18; TEMP 36.8; O2SAT 96
--- NOTE | 2025-03-06 23:21 | ED.FALL ---
HPI - Fall General Chief Complaint: Fall Stated Complaint: FALL Source: patient Mode of arrival: ambulatory Limitations: no limitations History of Present Illness HPI Narrative: this is a 64-year-old female that had a fall approximately 1 week ago and injured her right rib area and has gotten worse over the last couple of days did have some Tylenol that she took with some and has some minimal relief otherwise no shortness of breath no chest pain no fever chills no other injuries. MD complaint: fall Onset (ago): week(s) Fall from: standing Fall witnessed: yes, by family Place fall occurred: home Loss of consciousness: none Prolonged down time: no Related Data Home Medications ?Medication ?Instructions ?Recorded ?Confirmed ?Last Taken ?Type amitriptyline 10 mg tablet 10 mg PO BID 10/24/19 11/04/24 02/27/24 History fluoxetine 40 mg capsule 40 mg PO BID 10/24/19 11/04/24 02/27/24 History cyanocobalamin (vitamin B-12) 2,500 mcg PO DAILY 02/15/22 11/04/24 02/27/24 History beta carotene 30 mg capsule 30 mg PO DAILY 02/25/22 11/04/24 02/27/24 History ergocalciferol (vitamin D2) 1,250 1,250 mcg PO WEEKLY 09/27/23 11/04/24 02/26/24 History mcg (50,000 unit) capsule (Vitamin D2) calcium carbonate (Tums) 200 mg PO BID 12/25/23 11/04/24 02/27/24 History pantoprazole 40 mg tablet,delayed 40 mg PO BID 12/25/23 11/04/24 02/27/24 History release albuterol sulfate 90 mcg/actuation 2 puff inhalation Q4-6H PRN 07/27/24 11/04/24 Unknown History aerosol inhaler shortness of breath or wheezing apixaban 5 mg tablet (Eliquis) 5 mg PO BID 07/27/24 11/04/24 Unknown History ascorbate calcium (vitamin C) 814 mg PO 01/06/25 Unknown History mg/gram oral powder calcitriol 0.5 mcg capsule 1 mcg PO TID 01/06/25 Unknown History levothyroxine 125 mcg tablet 125 mcg PO TID 01/06/25 Unknown History potassium chloride 20 mEq 10 meq PO TID 01/06/25 Unknown History tablet,extended release(part/cryst) spironolactone 25 mg tablet 25 mg PO BID 01/06/25 Unknown History Allergies Allergy/AdvReac Type Severity Reaction Status Date / Time adhesive Allergy Mild Rash Verified 01/19/25 11:22 ciprofloxacin (From Cipro) Allergy Other Verified 01/19/25 11:22 succinylcholine AdvReac Intermediate Unknown Verified 01/19/25 11:22 Review of Systems Review of Systems: All systems reviewed & are unremarkable except as noted in HPI and below PMFSH Past Medical History Medical History Hypocalcemia Hypokalemia Portal vein thrombosis CKD (chronic kidney disease) Bradycardia Hypothyroidism Hyperparathyroidism HTN (hypertension) Renal tubular acidosis Trichotillomania Surgical History Surgical History History of colon surgery 02/15/22 Open right hemicolectomy with ileocolic anastomosis History of extraction of renal calculus History of colonoscopy with polypectomy May 2021 with benign polypectomy History of laparoscopic cholecystectomy cholecystectomy during her laparoscopic gastric surgery History of laparoscopic appendectomy H/O knee surgery H/O gastric bypass 2002 in [place] - laparoscopic duodenal switch procedure H/O parathyroidectomy Family History Family History Father Asthma Hypertension Mother Breast cancer Sibling Diabetes mellitus Hypertension Grandparent Cancer Grandparent Diabetes mellitus Cancer Other No pertinent family history Social History Social History Smoking status: Never smoker Second hand tobacco smoke exposure: No Alcohol intake: never Substance use: never Substance use type: does not use Other substance usage details: none Do You Feel Safe in your Home?: Yes Lack of Transportation: No Lack of Food: Never True Current Housing: I Have Housing Concerned About Future Housing: No Difficulty Paying Gas/Electric Bills: No Difficulty Paying for Meds: No Currently Unemployed: No Education: Bachelor's Degree Difficulty w/ Childcare or Family Care: No Occupation/Education: other Additional occupation/education comments: on disability Spiritual care concerns: No Exam Const: General: healthy appearing and no acute distress Nutritional Appearance: well nourished Orientation/consciousness: patient oriented x3 Limitations: no limitations Chest: Other: Tenderness right rib area with palpation Resp: Effort & Inspection: normal respiratory effort Auscultation: clear to auscultation bilaterally Cardio: Rate: regular rate Rhythm: regular rhythm GI: GI Palp: Yes Soft to palpation Auscultation: normal bowel sounds Back/Spine/Pelvis: Back: no CVA tenderness Skin: General skin exam: normal color Rashes: no rashes Neuro: General: patient oriented x3 and moves all extremities Course Course Emergency Course: patient received 30mg IM Toradol, x-ray performed right rib area reviewed with patient. Vital Signs Vital signs: Vital Signs Temperature 36.8 C 03/06/25 23:10 Pulse Rate 79 03/06/25 23:10 Respiratory Rate 18 03/06/25 23:10 Blood Pressure 146/81 H 03/06/25 23:10 Pulse Oximetry 96 03/06/25 23:10 Oxygen Delivery Room Air 03/06/25 23:10 Temperature 36.8 C 03/06/25 23:10 Pulse Rate 79 03/06/25 23:10 Respiratory Rate 18 03/06/25 23:10 Blood Pressure 146/81 H 03/06/25 23:10 Pulse Oximetry 96 03/06/25 23:10 Oxygen Delivery Room Air 03/06/25 23:10 Critical Care Time Critical Care Time Critical Care Time: No Discharge Plan Discharge Clinical Impression: Closed rib fracture Qualifiers: Encounter type: initial encounter Rib fracture type: single rib Laterality: right Qualified Code(s): S22.31XA - Fracture of one rib, right side, initial encounter for closed fracture Patient Disposition: Home Condition: Stable Instructions: Antibiotic Form, Rib Fracture (ED) Additional Instructions: advised take medication as prescribed and follow-up with primary care physician within the next 3 to 5 days further evaluation treatment. Patient Language: Jordanian Prescriptions: New oxycodone-acetaminophen [Percocet] 5-325 mg tablet 1 tablet PO Q6H PRN (Reason: pain) Qty: 20 0RF No Action cyanocobalamin (vitamin B-12) 2,500 mcg PO DAILY ergocalciferol (vitamin D2) [Vitamin D2] 1,250 mcg (50,000 unit) Capsule 1,250 mcg PO WEEKLY Patient Comments: On Mondays fluoxetine 40 mg capsule 40 mg PO BID amitriptyline 10 mg tablet 10 mg PO BID calcitriol 0.5 mcg capsule 1 mcg PO TID Rx Instructions: 2 CAPSULES IN THE MORNING AND EVENING albuterol sulfate 90 mcg/actuation HFA aerosol inhaler 2 puff INHALATION Q4-6H PRN (Reason: shortness of breath or wheezing) Eliquis 5 mg tablet 5 mg PO BID levothyroxine 125 mcg tablet 125 mcg PO TID furosemide 40 mg Tablet 40 mg PO DAILY Qty: 30 0RF sodium bicarbonate 650 mg Tablet 1,950 mg PO DAILY Qty: 90 0RF ascorbate calcium (vitamin C) 814 mg/gram powder PO potassium chloride 20 mEq tablet,ER particles/crystals 10 meq PO TID spironolactone 25 mg tablet 25 mg PO BID beta carotene 30 mg capsule 30 mg PO DAILY pantoprazole 40 mg tablet,delayed release (DR/EC) 40 mg PO BID calcium carbonate [Tums] 200 mg calcium (500 mg) tablet,chewable 200 mg PO BID Follow-up/Referrals: Priyank Zepeda MD [Primary Care Provider, Internal Medicine]
[2025-03-06] MEDS: KETOROLAC 30 MG/ML VIAL (*BKC) IM (23:40)
[2025-03-07 00:10] VITALS: BP 135/80; PULSE 75; RESP 16; TEMP 36.8; O2SAT 98
== END 2025-03-07 00:10 | disposition home or self-care (01) ==
PROVIDERS: Emergency Provider Emergency Medicine; PCP Internal Medicine
DX: S22.31XA Fracture of one rib, right side, initial encounter for closed fracture (principal); I12.9 Hypertensive chronic kidney disease with stage 1 through stage 4 chronic kidney disease, or unspecified chronic kidney disease; N18.9 Chronic kidney disease, unspecified; E03.9 Hypothyroidism, unspecified; W19.XXXA Unspecified fall, initial encounter
CPT/HCPCS: 71100; 96372; 99283; J1885

== ENCOUNTER 2025-03-07 11:31 | Outpatient (CLI) | payer OTHER, SELFPAY ==
--- OUTSIDE RECORDS SUMMARY | 2025-03-07 11:35 | XMS_ITS | Encounter Summary ---
Author Organization [facility] Address [address] [facility] [place] [address] Phone Care Team Providers Care Blunger Name Role Phone Priyank Zepeda MD Primary Care Provider [phone] Reason for Visit * Reason Onset Date Comments Medication Management 08/16/2024 Encounter Details Date Type Department Care Team (Late st Contact Info) Description 08/16/2024 [facility] [address] [place] [address] Eloisa Ruiz, PT Medication Management Social History [...] on filedocumented in this encounter Care Teams Blunger Relationship Specialty Start Date End Date Priyank Zepeda MD [address] [place] [address] PCP - General Internal Medicine 08/08/24 documented as of this encounter
--- OUTSIDE RECORDS SUMMARY | 2025-03-07 11:35 | XMS_ITS | Encounter Summary ---
Author Organization [facility] Address [address] [facility] [address] [place] [address] Phone Care Team Providers Care Construction Management Instructor Name Role Phone Priyank Zepeda MD Primary Care Provider [phone] Encounter Details Date Type Department Care Team (Late Contact Info) Description 12/06/2019 Orders Only [facility] [address] [facility] [address] [place] [id number] Kristofer Ortiz MD [address] [facility] [address] [place] [address] Chronic kidney disease stage 3 [...] (Late Contact Info) Description 04/22/2025 11:45 AM BLOCK TRADER Office Visit [facility] [address] [facility] [address] [place] [address] Kristofer Ortiz MD [address] [place] [address] [address] documented as of this encounter Visit Diagnoses Diagnosis Chronic kidney disease stage 3 (HCC) documented in this encounter Care Teams Construction Management Instructor Relationship Specialty Start Date End Date Priyank Zepeda MD [address] [place] [address] PCP - General Internal Medicine 05/17/19 documented as of this encounter
--- OUTSIDE RECORDS SUMMARY | 2025-03-07 11:35 | XMS_ITS | Encounter Summary ---
Author Organization [facility] Address [address] [facility] [address] [place] [address] Phone Care Team Providers Care Senior Game Advisor Name Role Phone Priyank Zepeda MD Primary Care Provider [phone] Encounter Details Date Type Department Care Team (Late Contact Info) Description 01/03/2020 Orders Only [facility] [address] [facility] [address] [place] [phone] Kristofer Ortiz MD [address] [facility] [address] [place] [address] Chronic kidney disease stage 3 [...] (Late Contact Info) Description 04/22/2025 11:45 AM CARTOGRAPHY TECHNICIAN Office Visit [facility] [address] [facility] [address] [place] [address] Kristofer Ortiz MD [address] [place] [address] [address] documented as of this encounter Visit Diagnoses Diagnosis Chronic kidney disease stage 3 (HCC) documented in this encounter Care Teams Senior Game Advisor Relationship Specialty Start Date End Date Priyank Zepeda MD [address] [place] [address] PCP - General Internal Medicine 05/17/19 documented as of this encounter
--- OUTSIDE RECORDS SUMMARY | 2025-03-07 11:35 | XMS_ITS | Clinical Summary ---
Author Organization [facility] Address [address] [place] [address] Care Team Providers Care Application Release Manager Name Role Phone Priyank Zepeda MD Primary Care Provider [phone] Allergies Active Allergy Reactions Criticality Noted Date [...] Packs/Day Years Used Date Smoking Tobacco: Never [facility] [employer] Answer Date Recorded In the past 12 months has e [employer], [employer], oil, or water [employer] threatened to shut off services in your [...] living in a long-term (including now)? No 11/17/2023 Comments Unknown Sex [...] 1:27 AM 10/02/2023 3:59 PM Care Teams Application Release Manager Relationship Specialty Start Date End Date Priyank Zepeda MD [address] [place] [address] PCP - General INTERNAL MEDICINE 09/19/19
--- OUTSIDE RECORDS SUMMARY | 2025-03-07 11:35 | XMS_ITS | Clinical Summary ---
Author Organization [facility] Address [address] [address] Phone Care Team Providers Care Traffic Personnel Supervisor Name Role Phone Priyank Zepeda MD Primary Care Provider [phone] Allergies No known active allergies Medications calcium [...] route 2 times per day Active Pancrelipase, Cmo-Wlae-Adar, (CREON PO) Take 24,000 Units by mouth 3 times daily (with meals). Take 1 capsule by mouth 3 times daily with meals Active spironolactone (ALDACTONE) 25 MG Tablet Take 25 mg by mouth daily. Active BETA CAROTENE PO Take 7,500 mcg by mouth daily. Active Cyanocobalamin (VITAMIN B12 PO) Take 2,500 mcg by mouth daily. Active pancrelipase, lipase-protease- amylase, (Creon) [address] Particles Take 1 Capsule [...] Documents on File Type Date Recorded Patient Materials Inspector Expl anation Power of Manager Of Network for Health Care 08/26/2024 9:18 AM POA-HC Power of Manager Of Network for Health Care 08/26/2024 9:18 AM POA-HC Power of Manager Of Network for Health Care 08/26/2024 9:13 AM POA-HC Power of Manager Of Network for Health [facility] 08/26/2024 9:08 AM POA-HC Power of Manager Of Network for Health [facility] 08/14/2024 12:10 PM POA HC 07/30/2024 * Full Code (Latest Code Status on File) Date Activated Date Inactivated Comments 08/13/2024 10:26 PM Care Teams Traffic Personnel Supervisor Relationship Specialty Start Date End Date Priyank Zepeda MD [address] [place] [address] PCP - General Internal Medicine 08/08/24
--- OUTSIDE RECORDS SUMMARY | 2025-03-07 11:35 | XMS_ITS | Encounter Summary ---
Author Organization [facility] Address [address] [place] [address] Phone Care Team Providers Care Microsoft Systems Engineer Name Role Phone Priyank Zepeda MD Primary Care Provider [phone] Reason for Visit * Reason Onset Date Comments Medication Management 08/13/2024 Encounter Details Date Type Department Care Team (Late st Contact Info) Description 08/13/2024 [facility]phone [facility] [address] [place] [address] Eloisa Ruiz, PT Medication Management Social History [...] filedocumented in this encounter Care Teams Microsoft Systems Engineer Relationship Specialty Start Date End Date Priyank Zepeda MD [address] [place] [address] PCP - General Internal Medicine 08/08/24 documented as of this encounter
--- OUTSIDE RECORDS SUMMARY | 2025-03-07 11:35 | XMS_ITS | Encounter Summary ---
Author Organization [facility] Address [address] [place] [address] Phone Care Team Providers Care Balloon Dipper Name Role Phone Priyank Zepeda MD Primary Care Provider [phone] Encounter Details Date Type Department Care Team (Late st Contact Info) Description 09/04/2024 [facility] [address] [place] [address] Priyank Zepeda MD [address] [place] [address] Secondary hyperparathyroidism of renal origin [...] - 12.00 10(3)/mcL 09/04/2024 6:44 PM CDT [facility] RBC 3.31(L) 3.80 - 5.30 10(6)/mcL 09/04/2024 6:44 PM CDT [facility] HEMOGLOBIN (HGB) 10.2(L) 12.0 - 15.8 g/dL 09/04/2024 6:44 PM CDT [facility] HEMATOCRIT (HCT) 32.3(L) 36.0 - 47.0 % 09/04/2024 6:44 PM CDT [facility] MCV 97.6(H) 82.0 - 96.0 fL 09/04/2024 6:44 PM CDT [facility] MCH 30.8 26.0 - 34.0 pg 09/04/2024 6:44 PM CDT [facility] MCHC 31.6 31.0 - 36.0 g/dL 09/04/2024 6:44 PM CDT [facility] PLATELET COUNT 240 140 - 440 10(3)/mcL 09/04/2024 6:44 PM CDT [facility] RDW 18.8(H) 11.8 - 15.5 % 09/04/2024 6:44 PM CDT [facility] MPV 9.8 9.7 - 12.4 fL 09/04/2024 6:44 PM CDT [facility] NEUTROPHILS 75.4(H) 47.0 - 73.0 % 09/04/2024 6:44 PM CDT [facility] LYMPHOCYTES 11.9(L) 18.0 - 42.0 % 09/04/2024 6:44 PM CDT [facility] MONOCYTES 9.3 4.0 - 12.0 % 09/04/2024 6:44 PM CDT [facility] EOSINOPHILS 2.8 0.0 - 5.0 % 09/04/2024 6:44 PM CDT [facility] BASOPHILS 0.6 0.0 - 1.0 % 09/04/2024 6:44 PM CDT [facility] ABSOLUTE NEUTROPHILS 3.48 1.60 - 7.70 10(3)/mcL 09/04/2024 6:44 PM CDT [facility] ABSOLUTE LYMPHOCYTES 0.55(L) 1.30 - 3.20 10(3)/mcL 09/04/2024 6:44 PM CDT [facility] ABSOLUTE MONOCYTES 0.43 0.20 - 1.00 10(3)/mcL 09/04/2024 6:44 PM CDT [facility] ABSOLUTE EOSINOPHIL 0.13 0.00 - 0.40 10(3)/mcL 09/04/2024 6:44 PM CDT [facility] ABSOLUTE BASOPHILS 0.03 0.00 - 0.10 10(3)/mcL 09/04/2024 6:44 PM CDT [facility] NRBC PER 100 WBC 0 09/05/19 6:44 PM CDT [facility] RESULTS ARE CONSISTENT WITH PERIPHERAL SMEAR REVIEW Yes 09/04/2024 6:44 PM CDT [facility] RBC MORPHOLOGY CONSISTENT WITH INDICES Yes 09/04/2024 6:44 PM CDT [facility] Blood No Phlebotomy Charged / Unknown 09/04/2024 4:55 PM CDT 09/04/2024 6:06 PM CDT us Priyank Zepeda MD HEMATOLOGY ORDERABLES Final R esult [facility] [place] [address] * (ABNORMAL) PREALBUMIN (PAB) (09/04/2024 4:55 PM CDT) Pathologist [facility] PRE ALBUMIN 13(L) 14 - 37 mg/dL 09/05/2024 6:00 PM CDT [facility] Blood No Phlebotomy Charged / Unknown 09/04/2024 4:55 PM CDT 09/04/2024 6:06 PM CDT us Priyank Zepeda MD CHEMISTRY ORDERABLES Final Re sult [facility] [address] [place] [address], * VITAMIN D, 25 HYDROXY TOTAL (09/04/2024 4:55 PM CDT) VITAMIN D, 25 HYDROX 19.0 ng/mL 09/04/2024 6:55 PM CDT [facility] Blood No Phlebotomy Charged / Unknown 09/04/2024 4:55 PM CDT 09/04/2024 6:06 PM CDT Narrative [facility] - 09/04/2024 6:55 PM CDT Published reference ranges for Vitamin D vary depending on time and place and method of testing, and on patient's age, sex, ethnicity and levels of other measured analytes such as parathormone, calcium and phosphorus. The result should be evaluated in conjunction with clinical findings and suspicions. [place] of [employer] and Endocrine Clinical Practice Guidelines: Status Vitamin D levels (ng/mL) Deficient <=20 At risk of inadequacy 21-29 Sufficient 30-100 Centers of Disease Control and Prevention Guidelines: Status Vitamin D levels (ng/mL) Deficient <13 At risk of inadequacy 13-19 Sufficient 20-50 Possibly harmful >50 References: [place] [employer], 2010 Dietary reference intakes for calcium and vitamin D. [place]: The National Academies Press. Yo M, Blayne N, Sara LEES, et al., Evaluation, treatment, and prevention of Vitamin D deficiency: an Endocrinology Clinical Practice Guideline. JCEM 2011 96: 7 2372-6264. Kiet A, Dario C, Yemi D, et al., Vitamin D Status: [place], , MNHS data brief, no. 59, [place]: National Center for Health Statistics. 2011. us Priyank Zepeda MD CHEMISTRY ORDERABLES Final Re sult [facility] [place] [address] * (ABNORMAL) THYROID STIMULATING HORMONE (TSH) (09/04/2024 4:55 PM CDT) TSH 9.593(H) 0.300 - 5.000 mIU/L 09/04/2024 6:56 PM CDT [facility] Blood No Phlebotomy Charged / Unknown 09/04/2024 4:55 PM CDT 09/04/2024 6:06 PM CDT us Priyank Zepeda MD CHEMISTRY ORDERABLES Final Re sult [facility] [address] [place] [address] * (ABNORMAL) PHOSPHORUS (PO4) (09/04/2024 4:55 PM CDT) PHOSPHORUS 2.3(L) 2.5 - 4.5 mg/dL 09/04/2024 6:39 PM CDT [facility] Blood No Phlebotomy Charged / Unknown 09/04/2024 4:55 PM CDT 09/04/2024 6:06 PM CDT us Priyank Zepeda MD CHEMISTRY ORDERABLES Final Re sult Performing Organization Address City/[facility]/ZIP Co de Phone Number [facility] [place] [address] * (ABNORMAL) CMP (COMPREHENSIVE METABOLIC PANEL) (09/04/2024 4:55 PM CDT) SODIUM 143 136 - 145 mmol/L 09/04/2024 6:39 PM CDT [facility] POTASSIUM 4.0 3.5 - 5.1 mmol/L 09/04/2024 6:39 PM CDT [facility] CHLORIDE 114(H) 98 - 107 mmol/L 09/04/2024 6:39 PM CDT [facility] CO2, VENOUS 23 22 - 30 mmol/L 09/04/2024 6:39 PM CDT [facility] ANION GAP 10.0 <18.0 mmol/L 09/04/2024 6:39 PM CDT [facility] GLUCOSE 87 70 - 99 mg/dL 09/04/2024 6:39 PM CDT [facility] BUN 10 10 - 20 mg/dL 09/04/2024 6:39 PM CDT [facility] CREATININE, BLOOD 0.77 0.60 - 1.00 mg/dL 09/04/2024 6:39 PM [facility] BUN/CREATININE RATIO 13 12 - 20 ratio 09/04/2024 6:39 PM [facility] TOTAL PROTEIN 6.8 6.0 - 8.0 g/dL 09/04/2024 6:39 PM [facility] ALBUMIN 2.7(L) 3.5 - 5.0 g/dL 09/04/2024 6:39 PM [facility] A/G RATIO 0.7(L) 1.0 - 2.2 09/04/2024 6:39 PM [facility] CALCIUM 8.2(L) 8.7 - 10.5 mg/dL 09/04/2024 6:39 PM [facility] T BILI 0.4 0.2 - 1.2 mg/dL 09/04/2024 6:39 PM [facility] SGOT (AST) 52(H) <43 U/L 09/04/2024 6:39 PM [facility] SGPT (ALT) 37 <56 U/L 09/04/2024 6:39 PM [facility] ALKALINE PHOSPHATASE 137 40 - 150 U/L 09/04/2024 6:39 PM [facility] GFR, ESTIMATED >60 >=60 09/04/2024 6:39 PM [facility] Comment: Creatinine Clearance is the preferred criteria for selecting drug dose adjustments in renally impaired patients. The GFR is provided as additional pertinent clinical information. GFR is reported in mL/min/1.73 sq m. Calculation based on the Chronic Kidney Disease Epidemiology Collaboration (CKD- EPI) equation refit without adjustment for race. GFR, EST. >60 >=60 025 6:39 PM [facility] GFR, EST. NONAFRICAN >60 >=60 09/04/2024 6:39 PM [facility] Blood No Phlebotomy Charged / Unknown 09/04/2024 4:55 PM CDT 09/04/2024 6:06 PM CDT us Priyank Zepeda MD CHEMISTRY ORDERABLES Final Re sult [facility] [place] [address] documented in this encounter Visit Diagnoses Diagnosis Secondary hyperparathyroidism of renal origin Secondary hyperparathyroidism (of renal origin) Vitamin D deficiency, unspecified Hypothyroidism, unspecified documented in this encounter Care Teams Balloon Dipper Relationship Specialty Start Date End Date Priyank Zepeda MD [address] [place] [address] PCP - General Internal Medicine 08/08/24 documented as of this encounter
--- OUTSIDE RECORDS SUMMARY | 2025-03-07 11:36 | XMS_ITS | Clinical Summary ---
Author Organization [facility] Address [address] [place] [address] Care Team Providers Care Records Clerk Name Role Phone Gayla Villar Primary Care Provider [phone] Social History Tobacco Use Types Packs/Day Years Used Date Smoking Tobacco: Never Assessed Comments Unknown Sex and Gender Information Value Date Recorded Sex Assigned at Not on file Legal Sex Female 4:22 PM CUSTOM PROTECTION OFFICER Gender Identity Not on file Sexual Orientation [...] series) 2034 Insurance [place] Care Teams Records Clerk Relationship Specialty Start Date End Date Gayla Villar [address] [facility] [address] [place] [address] PCP - General 03/11/02
--- OUTSIDE RECORDS SUMMARY | 2025-03-07 11:36 | XMS_ITS | Encounter Summary ---
Author Organization [facility] Address [address] [place] [address] Care Team Providers Care Tire Cord Weaver Name Role Phone Priyank Zepeda MD Primary Care Provider [phone] Encounter Details Date Type Department Care Team (Late st Contact Info) Description 10/03/2023 Hospital Follow-up Call [facility] Cardiovascular Care Unit [address] [place] [address] Chelsea Bishop RN Social History Tobacco Use Types Packs/Day Years Used Date Smoking Tobacco: Never [facility] Utilities Answer Date Recorded In the past 12 months has e electric, gas, oil, or water [employer] threatened to shut off services in your [...] any time in the past [address] [place], were you homeless or living [...] on filedocumented in this encounter Care Teams Tire Cord Weaver Relationship Specialty Start Date End Date Priyank Zepeda MD [address] [place] [address] PCP - General INTERNAL MEDICINE 09/19/19 documented as of this encounter
--- OUTSIDE RECORDS SUMMARY | 2025-03-07 11:36 | XMS_ITS | Clinical Summary ---
Author Organization [facility] Address [address] [place] [address] Care Team Providers Care Rn Urology Name Role Phone Priyank Zepeda MD Primary Care Provider [phone] Source Comments [facility],non-owned Affiliates and Associated Physician Practices is amultiple site organization consisting of ambulatory clinics and hospital sitesin [place], [place], [place] and [place]. This disclosure is being madepursuant to the Care Everywhere program and may not contain all information available regarding this patient. Last updated 18.[facility] Med[employer]ion Allergies Active Allergy Reactions Criticality Noted Date [...] daily 42 Each 08/07/2024 1:10 PM MAINTENANCE ENGINEER 5 Active ferrous sulfate 325 (65 FE) MG tablet Take 1 (one) tablet by mouth once daily after lunch 30 tablet 08/07/2024 1:10 PM MAINTENANCE ENGINEER 5 Active folic acid (Folvite) 1 MG tablet Take 1 (one) tablet by mouth once daily 30 tablet 08/07/2024 1:10 PM MAINTENANCE ENGINEER 5 Active pantoprazole EC (Protonix) 40 MG tablet Take 1 (one) tablet by mouth 2 times daily, before breakfast and supper 60 tablet 08/07/2024 1:10 PM MAINTENANCE ENGINEER 5 Active sucralfate (Carafate) 1 GM/10ML suspension Take 10 mL by mouth 4 times daily - before meals & nightly 420 mL 08/07/2024 1:10 PM MAINTENANCE ENGINEER 5 Active Cholecalciferol (vitamin D3) 1.25 MG (22644 UT) capsule Take 1 (one) capsule by mouth every 7 days 5 capsule 5 Active furosemide (Lasix) 40 MG tablet Take 1 (one) tablet by mouth once daily 30 tablet 08/07/2024 1:10 PM MAINTENANCE ENGINEER 5 Active Calcium Carbonate Antacid (calcium carbonate, 500 mg elemental Ca/5 mL,) 1250 MG/5ML suspension Take 10 mL by mouth 3 times daily with meals 473 mL 1 5 Active pancrelipase (Creon 24,000) 35848-95253 units capsule Take 1 (one) capsule by [...] medical care, and heating? Somewhat hard 07/28/2024 [facility] Occup[facility] - Occupational Stress [...] in a fci (including now)? No 07/28/2024 Comments Unknown Sex and Gender Information Value Date Recorded Sex Assigned at Not on file Legal Sex Female 9:40 AM CDT Gender Identity Not on file Sexual Orientation Not on file Last Filed Vital Signs Vital Sign Reading Time Taken Comments Blood Pressure 112/78 08/07/2024 2:44 PM MAINTENANCE ENGINEER Pulse 93 08/07/2024 2:44 PM MAINTENANCE ENGINEER Temperature 37.5 C (99.5 F) 08/07/2024 11:33 AM MAINTENANCE ENGINEER Respiratory Rate 18 08/07/2024 11:3 3 AM MAINTENANCE ENGINEER Oxygen Saturation 97% 08/07/2024 2:44 PM MAINTENANCE ENGINEER Inhaled Oxygen Concentration - - Weight 87.5 kg (192 lb 14.4 oz) 025 12:04 AM MAINTENANCE ENGINEER Height 165.1 cm (5' 5) 07/28/2024 4:01 PM MAINTENANCE ENGINEER Body Mass Index 32.1 07/28/2024 4:01 PM MAINTENANCE ENGINEER Plan of Treatment Health Maintenance Due Date [...] patient's age to complete this topic Insurance [facility] Advance Directives Documents on File Type Date Recorded Patient River Transportation Worker Expl anation Adv Directive/Living Will/POA 08/08/2024 10:51 PM Adv Directive/Living Will/POA 08/01/2024 8:23 PM Adv Directive/Living Will/POA 07/31/2024 7:48 PM * Full Code (Latest Code Status on File) Date Activated Date Inactivated Comments 07/28/2024 3:11 PM 08/07/2024 5:49 PM Care Teams Rn Urology Relationship Specialty Start Date End Date Priyank Zepeda MD [address] [place] [address] PCP - General 02/23/22
--- OUTSIDE RECORDS SUMMARY | 2025-03-07 11:36 | XMS_ITS | Clinical Summary ---
Author Organization [facility] Address [address] [address] Care Team Providers Care Franchise Business Consultant Name Role Phone Priyank Zepeda MD Primary Care Provider [phone] Allergies Active Allergy Reactions Criticality Noted Date [...] 5 Active Cholecalciferol (Vitamin D3) 1.25 MG (07350 UT) capsule Take 50,000 Units by mouth [...] CDT Respiratory Rate 18 05/15/2018 11:00 AM APPLIED TECHNOLOGIST Oxygen Saturation 99% 10/22/2024 10:46 AM CDT Inhaled Oxygen Concentration - - Weight 63 kg (139 lb) 10/22/2024 10:46 AM CDT Height 160 cm (5' 3) 10/22/2024 10:46 AM CDT Body Mass Index 24.62 10/22/2024 10:46 AM CDT Plan of Treatment Upcoming Encounters Date Type Department Care Team (Late st Contact Info) Description 04/22/2025 11:45 AM APPLIED TECHNOLOGIST Office Visit [facility] Evgeny. [address] [facility] [address] [place] [address] Kristofer Ortiz MD [address] [facility] [address] [place] [address] Health Maintenance Due Date Last Done Comments Breast Cancer Screening 1960 Pneumococcal Vaccine: 50+ Years (1 of 2 - PCV) 1978 Influenza Vaccine (#1) 2025 4, 03/27/2023, 03/06/2022, Additional history exists Colorectal Cancer Screening: Colonoscopy Discontinued 12/14/2023, 11/04/2021 Hepatitis B Vaccine Aged Out No longe r eligible based on patient's age to complete this topic Insurance [facility] Advance Directives Documents on File Type Date Recorded Patient General Office Assistant Expl anation Power of Care Transitions Nurse 10/25/2021 11:10 AM Othe r - POA Power of Care Transitions Nurse 10/25/2021 11:10 AM Othe r - POA Care Teams Franchise Business Consultant Relationship Specialty Start Date End Date Priyank Zepeda MD [address] [place] [address] PCP - General Internal Medicine 05/17/19
[2025-03-07 12:36] LABS: Anion Gap 11 mmol/L (4-12); Blood Urea Nitrogen 14 mg/dL (7-17); Calcium 8.5 mg/dL (8.4-10.2); Carbon Dioxide 16 mmol/L (22-30); Chloride 116 mmol/L (98-107); Estimated Glomerular Filt Rate > 60; Glucose 91 mg/dL (65-110); Osmolality Calculated 296 mOsm/kg (285-295); Potassium 3.8 mmol/L (3.4-5.0); Sodium 143 mmol/L (137-145)
[2025-03-10 07:51] LABS: Parathyroid Intact 97.8
== END 2025-03-07 11:32 | disposition home or self-care (01) ==
PROVIDERS: PCP Internal Medicine
DX: E21.1 Secondary hyperparathyroidism, not elsewhere classified (principal); E55.9 Vitamin D deficiency, unspecified
CPT/HCPCS: 36415; 80048; 82306; 83970; 84100

== ENCOUNTER 2025-03-19 14:07 | Outpatient (CLI) | payer OTHER, SELFPAY ==
[2025-03-19 14:33] LABS: Hematocrit 36.8 % (35.0-42.0); Hemoglobin 11.5 g/dL (11.7-13.8); Immature Granulocyte Percent A 0.5 % (0.0-0.0); Lymphocytes Absolute Auto 0.59 K/mm3 (1.10-4.50); Mean Corpuscular HGB Conc 31.3 g/dL (32-36); Mean Corpuscular Hemoglobin 30.3 pg (27.0-31.0); Mean Corpuscular Volume 97.1 fL (78.0-102.0); Nucleated Red Blood Cells Absolute Auto 0.00 K/mm3 (0.00-0.00); Nucleated Red Blood Cells Perc 0.0 % (0-0.0); Platelet Count Result 144 K/mm3 (150-420); Red Blood Count 3.79 M/mm3 (4.20-5.40); White Blood Count 4.1 K/mm3 (4.8-10.8)
[2025-03-19 14:57] LABS: Iron 84 ug/dL (37-170)
[2025-03-19 15:07] LABS: Percent Iron Saturation 22 % (20-50)
--- OUTSIDE RECORDS SUMMARY | 2025-03-19 16:27 | XMS_ITS | Clinical Summary ---
Author Organization [facility] Address [address] [place] [address] Care Team Providers Care Data Consultant Name Role Phone Priyank Zepeda MD Primary Care Provider [phone] Allergies Active Allergy Reactions Criticality Noted Date [...] Packs/Day Years Used Date Smoking Tobacco: Never [facility] Profess[employer] de Plantãoities Answer Date Recorded In the past 12 months has e [email or web address], [employer], oil, or water [employer] threatened to shut off services in your [...] living in a longterm (including now)? No 11/17/2023 Comments Unknown Sex [...] 2025 03/19/2024, 03/27/2023, 03/06/2022, Additional history exists Influenza Adult (#1) 2025 03/19/2024, 03/27/2023, 03/06/2022, Additional history exists DTaP, Tdap and Td Vaccines (2 - Td or Tdap) 12/19/2025 12/20/2015, 10/23/1992 RSV Immunization or 60+ Years Completed 04/17/2023 Zoster Vaccines Completed 10/09/2023, 04/17/2023 Hepatitis A Vaccines Aged Out No long er eligible based on patient's age to complete this topic Meningococcal B Vaccine Aged Out No l [...] Most Recently Relevant to Health Maintenance Insurance [employer] Advance Directives * Full Code (Latest Code Status on File) Date Activated Date Inactivated Comments 11/17/2023 1:12 AM 11/18/2023 5:01 PM * Full Code Date Activated Date Inactivated Comments 09/28/2023 1:27 AM 10/02/2023 3:59 PM Care Teams Data Consultant Relationship Specialty Start Date End Date Priyank Zepeda MD [address] [place] [address] PCP - General INTERNAL MEDICINE 09/19/19
--- OUTSIDE RECORDS SUMMARY | 2025-03-19 16:27 | XMS_ITS | Clinical Summary ---
Author Organization [facility] Address [address] [address] Phone Care Team Providers Care Thumb Sewer Name Role Phone Priyank Zepeda MD Primary Care Provider [phone] Allergies No known active allergies Medications calcium [...] route 2 times per day Active Pancrelipase, Xau-Pupj-Nygu, (CREON PO) Take 24,000 Units by mouth 3 times daily (with meals). Take 1 capsule by mouth 3 times daily with meals Active spironolactone (ALDACTONE) 25 MG Tablet Take 25 mg by mouth daily. Active BETA CAROTENE PO Take 7,500 mcg by mouth daily. Active Cyanocobalamin (VITAMIN B12 PO) Take 2,500 mcg by mouth daily. Active pancrelipase, lipase-protease- amylase, (Creon) [address] Particles Take 1 Capsule [...] Documents on File Type Date Recorded Patient Skiing Instructor Expl anation Power of Medical Office Professional Instructor for Health Care 08/26/2024 9:18 AM POA-HC Power of Medical Office Professional Instructor for Health Care 08/26/2024 9:18 AM POA-HC Power of Medical Office Professional Instructor for Health Care 08/26/2024 9:13 AM POA-HC Power of Medical Office Professional Instructor for Health Care 08/26/2024 9:08 AM POA-HC Power of Medical Office Professional Instructor for Health Care 08/14/2024 12:10 PM POA HC 07/30/2024 * Full Code (Latest Code Status on File) Date Activated Date Inactivated Comments 08/13/2024 10:26 PM Care Teams Thumb Sewer Relationship Specialty Start Date End Date Priyank Zepeda MD [address] [place] [address] PCP - General Internal Medicine 08/08/24
--- OUTSIDE RECORDS SUMMARY | 2025-03-19 16:27 | XMS_ITS | Encounter Summary ---
Author Organization [facility] Address [address] [place] [address] Care Team Providers Care Lab Aide Name Role Phone Priyank Zepeda MD Primary Care Provider [phone] Encounter Details Date Type Department Care Team (Late st Contact Info) Description 10/03/2023 Hospital Follow-up Call [facility] Cardiovascular Care Unit [address] [place] [address] Chelsea Bishop RN Social History Tobacco Use Types Packs/Day Years Used Date Smoking Tobacco: Never [facility] Utilities Answer Date Recorded In the past 12 months has e electric, gas, oil, or water [employer] threatened to shut off services in your [...] on filedocumented in this encounter Care Teams Lab Aide Relationship Specialty Start Date End Date Priyank Zepeda MD [address] [place] [address] PCP - General INTERNAL MEDICINE 09/19/19 documented as of this encounter
--- OUTSIDE RECORDS SUMMARY | 2025-03-19 16:27 | XMS_ITS | Clinical Summary ---
Author Organization [facility] Address [address] [place] [address] Care Team Providers Care Sap Bw Bi Developer Name Role Phone Gayla Villar Primary Care Provider [phone] Social History Tobacco Use Types Packs/Day Years Used Date Smoking Tobacco: Never Assessed Comments Unknown Sex and Gender Information Value Date Recorded Sex Assigned at Not on file Legal Sex Female 4:22 PM COMPUTER BOOKKEEPER Gender Identity Not on file Sexual Orientation [...] OSTEOPOROSIS SCREENING 05/05/2014 COVID-19 VACCINE ( - 2024-26 season) 2025 INFLUENZA VACCINE (#1) 2025 Adult RSV VACCINE (1 - 1-dose 75+ series) 2034 Insurance [place] Care Teams Sap Bw Bi Developer Relationship Specialty Start Date End Date Gayla Villar [address] [facility] [address] [place] [address] PCP - General 03/11/02
--- OUTSIDE RECORDS SUMMARY | 2025-03-19 16:27 | XMS_ITS | Encounter Summary ---
Author Organization [facility] Address [address] [place] [address] Phone Care Team Providers Care Perinatal Nurse Name Role Phone Priyank Zepeda MD Primary Care Provider Reason for Visit * Reason Onset Date Comments Medication Management 08/16/2024 Encounter Details Date Type Department Care Team (Late st Contact Info) Description [facility] [address] [place] [address] Eloisa Ruiz, PT Medication Management Social History [...] on filedocumented in this encounter Care Teams Perinatal Nurse Relationship Specialty Start Date End Date Priyank Zepeda MD [address] [place] [address] PCP - General Internal Medicine 08/08/24 documented as of this encounter
--- OUTSIDE RECORDS SUMMARY | 2025-03-19 16:27 | XMS_ITS | Encounter Summary ---
Author Organization [facility] Address [address] [place] [address] Phone Care Team Providers Care Design And Sales Consultant Name Role Phone Priyank Zepeda MD Primary Care Provider [phone] Reason for Visit * Reason Onset Date Comments Medication Management 08/13/2024 Encounter Details Date Type Department Care Team (Late st Contact Info) Description [facility] [address] [place] [address] Eloisa Ruiz, PT Medication Management Social History [...] on filedocumented in this encounter Care Teams Design And Sales Consultant Relationship Specialty Start Date End Date Priyank Zepeda MD [address] [place] [address] PCP - General Internal Medicine 08/08/24 documented as of this encounter
--- OUTSIDE RECORDS SUMMARY | 2025-03-19 16:27 | XMS_ITS | Encounter Summary ---
Author Organization [facility] Address [address] [place] [address] Phone Care Team Providers Care Annealing Furnace Operator Name Role Phone Priyank Zepeda MD Primary Care Provider [phone] Encounter Details Date Type Department Care Team (Late st Contact Info) Description 09/04/2024 [facility] [address] [place] [address] Priyank Zepeda MD [address] [place] [address] Secondary hyperparathyroidism of renal origin [...] - 12.00 10(3)/mcL 09/04/2024 6:44 PM CDT [facility] RBC 3.31(L) 3.80 - 5.30 10(6)/mcL 09/04/2024 6:44 PM CDT [facility] HEMOGLOBIN (HGB) 10.2(L) 12.0 - 15.8 g/dL 09/04/2024 6:44 PM CDT [facility] HEMATOCRIT (HCT) 32.3(L) 36.0 - 47.0 % 09/04/2024 6:44 PM CDT [facility] MCV 97.6(H) 82.0 - 96.0 fL 09/04/2024 6:44 PM CDT [facility] MCH 30.8 26.0 - 34.0 pg 09/04/2024 6:44 PM CDT [facility] MCHC 31.6 31.0 - 36.0 g/dL 09/04/2024 6:44 PM CDT [facility] PLATELET COUNT 240 140 - 440 10(3)/mcL 09/04/2024 6:44 PM CDT [facility] RDW 18.8(H) 11.8 - 15.5 % 09/04/2024 6:44 PM CDT [facility] MPV 9.8 9.7 - 12.4 fL 09/04/2024 6:44 PM CDT [facility] NEUTROPHILS 75.4(H) 47.0 - 73.0 % 09/04/2024 6:44 PM CDT [facility] LYMPHOCYTES 11.9(L) 18.0 - 42.0 % 09/04/2024 6:44 PM CDT [facility] MONOCYTES 9.3 4.0 - 12.0 % 09/04/2024 6:44 PM CDT [facility] EOSINOPHILS 2.8 0.0 - 5.0 % 09/04/2024 6:44 PM CDT [facility] BASOPHILS 0.6 0.0 - 1.0 % 09/04/2024 6:44 PM CDT [facility] ABSOLUTE NEUTROPHILS 3.48 1.60 - 7.70 10(3)/mcL 09/04/2024 6:44 PM CDT [facility] ABSOLUTE LYMPHOCYTES 0.55(L) 1.30 - 3.20 10(3)/mcL 09/04/2024 6:44 PM CDT [facility] ABSOLUTE MONOCYTES 0.43 0.20 - 1.00 10(3)/mcL 09/04/2024 6:44 PM CDT [facility] ABSOLUTE EOSINOPHIL 0.13 0.00 - 0.40 10(3)/mcL 09/04/2024 6:44 PM CDT [facility] ABSOLUTE BASOPHILS 0.03 0.00 - 0.10 10(3)/mcL 09/04/2024 6:44 PM CDT [facility] NRBC PER 100 WBC 0 09/05/19 6:44 PM CDT [facility] RESULTS ARE CONSISTENT WITH PERIPHERAL SMEAR REVIEW Yes 09/04/2024 6:44 PM CDT [facility] RBC MORPHOLOGY CONSISTENT WITH INDICES Yes 09/04/2024 6:44 PM CDT [facility] Blood No Phlebotomy Charged / Unknown 09/04/2024 4:55 PM CDT 09/04/2024 6:06 PM CDT us Priyank Zepeda MD HEMATOLOGY ORDERABLES Final R esult [facility] [address] [place] [address] * (ABNORMAL) PREALBUMIN (PAB) (09/04/2024 4:55 PM CDT) Pathologist [facility] PRE ALBUMIN 13(L) 14 - 37 mg/dL 09/05/2024 6:00 PM CDT [facility] Blood No Phlebotomy Charged / Unknown 09/04/2024 4:55 PM CDT 09/04/2024 6:06 PM CDT us Priyank Zepeda MD CHEMISTRY ORDERABLES Final Re sult [facility] [address] [place] [address], * VITAMIN D, 25 HYDROXY TOTAL (09/04/2024 4:55 PM CDT) VITAMIN D, 25 HYDROX 19.0 ng/mL 09/04/2024 6:55 PM CDT [facility] Blood No Phlebotomy Charged / Unknown 09/04/2024 4:55 PM CDT 09/04/2024 6:06 PM CDT Narrative [facility] - 09/04/2024 6:55 PM CDT Published reference ranges for Vitamin D vary depending on time and place and method of testing, and on patient's age, sex, ethnicity and levels of other measured analytes such as parathormone, calcium and phosphorus. The result should be evaluated in conjunction with clinical findings and suspicions. [place] [employer] and Endocrine Clinical Practice Guidelines: Status Vitamin D levels (ng/mL) Deficient <=20 At risk of inadequacy 21-29 Sufficient 30-100 Centers of Disease Control and Prevention Guidelines: Status Vitamin D levels (ng/mL) Deficient <13 At risk of inadequacy 13-19 Sufficient 20-50 Possibly harmful >50 References: [place] [employer] [facility], 2010 Dietary reference intakes for calcium and vitamin D. [place]: The National Academies Press. Yo M, Blayne N, Sara LEES, et al., Evaluation, treatment, and prevention of Vitamin D deficiency: an Endocrinology Clinical Practice Guideline. JCEM 2011 96: 7 5491-8198. Kiet A, Dario C, Yemi D, et al., Vitamin D Status: [place], , MTHS data brief, no. 59, [place]: National Center for Health Statistics. 2011. us Priyank Zepeda MD CHEMISTRY ORDERABLES Final Re sult [facility] [address] [place] [address] * (ABNORMAL) THYROID STIMULATING HORMONE (TSH) (09/04/2024 4:55 PM CDT) TSH 9.593(H) 0.300 - 5.000 mIU/L 09/04/2024 6:56 PM CDT [facility] Blood No Phlebotomy Charged / Unknown 09/04/2024 4:55 PM CDT 09/04/2024 6:06 PM CDT us Priyank Zepeda MD CHEMISTRY ORDERABLES Final Re sult [facility] [address] [place] [address] * (ABNORMAL) PHOSPHORUS (PO4) (09/04/2024 4:55 PM CDT) PHOSPHORUS 2.3(L) 2.5 - 4.5 mg/dL 09/04/2024 6:39 PM CDT [facility] Blood No Phlebotomy Charged / Unknown 09/04/2024 4:55 PM CDT 09/04/2024 6:06 PM CDT us Priyank Zepeda MD CHEMISTRY ORDERABLES Final Re sult Performing Organization Address City/[facility]/ZIP Co de Phone Number [facility] [address] [place] [address] * (ABNORMAL) CMP (COMPREHENSIVE METABOLIC PANEL) (09/04/2024 4:55 PM CDT) SODIUM 143 136 - 145 mmol/L 09/04/2024 6:39 PM CDT [facility] POTASSIUM 4.0 3.5 - 5.1 mmol/L 09/04/2024 6:39 PM CDT [facility] CHLORIDE 114(H) 98 - 107 mmol/L 09/04/2024 6:39 PM CDT [facility] CO2, VENOUS 23 22 - 30 mmol/L 09/04/2024 6:39 PM CDT [facility] ANION GAP 10.0 <18.0 mmol/L 09/04/2024 6:39 PM CDT [facility] GLUCOSE 87 70 - 99 mg/dL 09/04/2024 6:39 PM CDT [facility] BUN 10 10 - 20 mg/dL 09/04/2024 6:39 PM CDT [facility] CREATININE, BLOOD 0.77 0.60 - 1.00 mg/dL 09/04/2024 6:39 PM [facility] BUN/CREATININE RATIO 13 12 - 20 ratio 09/04/2024 6:39 PM [facility] TOTAL PROTEIN 6.8 6.0 - 8.0 g/dL 09/04/2024 6:39 PM [facility] ALBUMIN 2.7(L) 3.5 - 5.0 g/dL 09/04/2024 6:39 PM [facility] A/G RATIO 0.7(L) 1.0 - 2.2 09/04/2024 6:39 PM [facility] CALCIUM 8.2(L) 8.7 - 10.5 mg/dL 09/04/2024 6:39 PM [facility] T BILI 0.4 0.2 - 1.2 mg/dL 09/04/2024 6:39 PM [facility] SGOT (AST) 52(H) <43 U/L 09/04/2024 6:39 PM [facility] SGPT (ALT) 37 <56 U/L 09/04/2024 6:39 PM [facility] ALKALINE PHOSPHATASE 137 40 - 150 U/L 09/04/2024 6:39 PM [facility] GFR, ESTIMATED >60 >=60 09/04/2024 6:39 PM [facility] Comment: Creatinine Clearance is the preferred criteria for selecting drug dose adjustments in renally impaired patients. The GFR is provided as additional pertinent clinical information. GFR is reported in mL/min/1.73 sq m. Calculation based on the Chronic Kidney Disease Epidemiology Collaboration (CKD- EPI) equation refit without adjustment for race. GFR, EST. >60 >=60 025 6:39 PM [facility] GFR, EST. NONAFRICAN >60 >=60 09/04/2024 6:39 PM [facility] Blood No Phlebotomy Charged / Unknown 09/04/2024 4:55 PM CDT 09/04/2024 6:06 PM CDT us Priyank Zepeda MD CHEMISTRY ORDERABLES Final Re sult [facility] [place] [address] documented in this encounter Visit Diagnoses Diagnosis Secondary hyperparathyroidism of renal origin Secondary hyperparathyroidism (of renal origin) Vitamin D deficiency, unspecified Hypothyroidism, unspecified documented in this encounter Care Teams Annealing Furnace Operator Relationship Specialty Start Date End Date Priyank Zepeda MD [address] [place] [address] PCP - General Internal Medicine 08/08/24 documented as of this encounter
== END 2025-03-19 14:08 | disposition home or self-care (01) ==
PROVIDERS: PCP Internal Medicine; Visit Provider Internal Medicine Hematology
DX: M81.0 Age-related osteoporosis without current pathological fracture (principal); D50.9 Iron deficiency anemia, unspecified
CPT/HCPCS: 36415; 83540; 83550; 85025

== ENCOUNTER 2025-04-10 09:44 | Outpatient (CLI) | payer OTHER, SELFPAY ==
[2025-04-10 10:03] LABS: Hematocrit 37.7 % (35.0-42.0); Hemoglobin 11.9 g/dL (11.7-13.8); Mean Corpuscular HGB Conc 31.6 g/dL (32-36); Mean Corpuscular Hemoglobin 30.1 pg (27.0-31.0); Mean Corpuscular Volume 95.4 fL (78.0-102.0); Platelet Count Result 110 K/mm3 (150-420); Red Blood Count 3.95 M/mm3 (4.20-5.40); White Blood Count 3.6 K/mm3 (4.8-10.8)
[2025-04-10 10:07] LABS: Add Urine Microscopic? YES; Appearance Urine Sl Cloudy (Clear); Glucose Urine UA Negative (Negative); Leukocyte Esterase Ur 3+ LEU/UL (Negative); Nitrate Urine Negative (Negative); Specific Grav Ur 1.010 (1.010-1.020)
[2025-04-10 10:31] LABS: Band Neutrophils Percent 0 % (0-6); Basophils Absolute Manual 0.00 K/mm3 (0-0.1); Basophils Percent Manual 0 % (0-1); Eosinophils Absolute Manual 0.21 K/mm3 (0.02-0.50); Eosinophils Percent Manual 6 % (1-6); Lymphocytes Absolute Manual 0.82 K/mm3 (1.1-4.5); Lymphocytes Percent Manual 23 % (18-44); Monocytes Absolute Manual 0.93 K/mm3 (0.1-0.90); Monocytes Percent Manual 26 % (3-9); Neutrophils Absolute Manual 1.98 K/mm3 (1.3-6.7); Neutrophils Percent Manual 55 % (46-73); Total Cells Counted 100
[2025-04-10 10:54] LABS: Iron 92 ug/dL (37-170)
[2025-04-10 10:56] LABS: Albumin Level 4.1 g/dL (3.5-5.1); Anion Gap 8 mmol/L (4-12); Blood Urea Nitrogen 16 mg/dL (7-17); Calcium 8.9 mg/dL (8.4-10.2); Carbon Dioxide 27 mmol/L (22-30); Chloride 108 mmol/L (98-107); Estimated Glomerular Filt Rate 52; Glucose 91 mg/dL (65-110); Osmolality Calculated 297 mOsm/kg (285-295); Potassium 4.3 mmol/L (3.4-5.0); Sodium 143 mmol/L (137-145)
[2025-04-10 11:04] LABS: Percent Iron Saturation 23 % (20-50)
--- OUTSIDE RECORDS SUMMARY | 2025-04-10 18:13 | XMS_ITS | Clinical Summary ---
Author Organization [facility] Address [address] [place] [address] Care Team Providers Care Chair And Couch Maker Name Role Phone Priyank Zepeda MD Primary Care Provider [phone] Allergies Active Allergy Reactions Criticality Noted Date [...] Packs/Day Years Used Date Smoking Tobacco: Never [facility] Entassoities Answer Date Recorded In the past 12 months has e [employer], [employer], oil, or water [employer] threatened to shut off services in your [...] any time in the past 12 m [facility], were you homeless or living in a [...] Most Recently Relevant to Health Maintenance Insurance [employer] Advance Directives * Full Code (Latest Code Status on File) Date Activated Date Inactivated Comments 11/17/2023 1:12 AM 11/18/2023 5:01 PM * Full Code Date Activated Date Inactivated Comments 09/28/2023 1:27 AM 10/02/2023 3:59 PM Care Teams Chair And Couch Maker Relationship Specialty Start Date End Date Priyank Zepeda MD [address] [place] [address] PCP - General INTERNAL MEDICINE 09/19/19
--- OUTSIDE RECORDS SUMMARY | 2025-04-10 18:13 | XMS_ITS | Encounter Summary ---
Author Organization [facility] Address [address] [place] [address] Phone Care Team Providers Care Attending Radiologist Name Role Phone Priyank Zepeda MD Primary Care Provider [phone] Reason for Visit * Reason Onset Date Comments Medication Management 08/16/2024 Encounter Details Date Type Department Care Team (Late st Contact Info) Description [facility]16[facility] [address] [place] [address] Eloisa Ruiz, PT Medication Management Social History [...] [facility] patient was observation at [facility] for low potassium from /08/15/24. [...] on filedocumented in this encounter Care Teams Attending Radiologist Relationship Specialty Start Date End Date Priyank Zepeda MD [address] [place] [address] PCP - General Internal Medicine 08/08/24 documented as of this encounter
--- OUTSIDE RECORDS SUMMARY | 2025-04-10 18:13 | XMS_ITS | Encounter Summary ---
Author Organization [facility] Address [address] [place] [address] Phone Care Team Providers Care Title Clerk Name Role Phone Priyank Zepeda MD Primary Care Provider [phone] Reason for Visit * Reason Onset Date Comments Medication Management 08/13/2024 Encounter Details Date Type Department Care Team (Late st Contact Info) Description 08/13/2024 Telephone [facility] [address] [place] [address] Eloisa Ruiz, PT Medication Management Social History [...] on filedocumented in this encounter Care Teams Title Clerk Relationship Specialty Start Date End Date Priyank Zepeda MD [address] [place] [address] PCP - General Internal Medicine 08/08/24 documented as of this encounter
--- OUTSIDE RECORDS SUMMARY | 2025-04-10 18:13 | XMS_ITS | Clinical Summary ---
Author Organization [facility] Address [address] [place] [address] Care Team Providers Care Restaurant Management Internship Name Role Phone Priyank Zepeda MD Primary Care Provider [phone] Source Comments [facility],non-owned Affiliates and Associated Physician Practices is amultiple site organization consisting of ambulatory clinics and hospital sitesin [place], [place], [place] and [place]. This disclosure is being madepursuant to the Care Everywhere program and may not contain all information available regarding this patient. Last updated 18.[facility] Allergies Active Allergy Reactions Criticality Noted Date Comments Adhesive Sensitivity Itching 07/28/2024 Ciprofloxacin Itching 07/28/2024 Succinylcholine Other 10/20/2015 Medications * Be aware that medications may not be up to date on this document. Always verify current medications with the patient. apixaban (Eliquis) [...] once daily 42 Each 08/07/2024 1:10 PM AUTO STRIPER 5 Active ferrous sulfate 325 (65 FE) MG tablet Take 1 (one) tablet by mouth once daily after lunch 30 tablet 08/07/2024 1:10 PM AUTO STRIPER 5 Active folic acid (Folvite) 1 MG tablet Take 1 (one) tablet by mouth once daily 30 tablet 08/07/2024 1:10 PM AUTO STRIPER 5 Active pantoprazole EC (Protonix) 40 MG tablet Take 1 (one) tablet by mouth 2 times daily, before breakfast and supper 60 tablet 08/07/2024 1:10 PM AUTO STRIPER 5 Active sucralfate (Carafate) 1 GM/10ML suspension Take 10 mL by mouth 4 times daily - before meals & nightly 420 mL 08/07/2024 1:10 PM AUTO STRIPER 5 Active Cholecalciferol (vitamin D3) 1.25 MG (95487 UT) capsule Take 1 (one) capsule by mouth every 7 days 5 capsule 5 Active furosemide (Lasix) 40 MG tablet Take 1 (one) tablet by mouth once daily 30 tablet 08/07/2024 1:10 PM AUTO STRIPER 5 Active Calcium Carbonate Antacid (calcium carbonate, 500 mg elemental Ca/5 mL,) 1250 MG/5ML suspension Take 10 mL by mouth 3 times daily with meals 473 mL 1 5 Active pancrelipase (Creon 24,000) 44940-89877 units capsule Take 1 (one) capsule by [...] medical care, and heating? Somewhat hard 07/28/2024 [facility] Skippers of Occupat ional Health - Occupational Stress [...] in a nursing home (including now)? No 07/28/2024 Comments Unknown Sex and Gender Information Value Date Recorded Sex Assigned at Not on file Legal Sex Female 9:40 AM CDT Gender Identity Not on file Sexual Orientation Not on file Last Filed Vital Signs Vital Sign Reading Time Taken Comments Blood Pressure 112/78 08/07/2024 2:44 PM AUTO STRIPER Pulse 93 08/07/2024 2:44 PM AUTO STRIPER Temperature 37.5 C (99.5 F) 08/07/2024 11:33 AM AUTO STRIPER Respiratory Rate 18 08/07/2024 11:3 3 AM AUTO STRIPER Oxygen Saturation 97% 08/07/2024 2:44 PM AUTO STRIPER Inhaled Oxygen Concentration - - Weight 87.5 kg (192 lb 14.4 oz) 025 12:04 AM AUTO STRIPER Height 165.1 cm (5' 5) 07/28/2024 4:01 PM AUTO STRIPER Body Mass Index 32.1 07/28/2024 4:01 PM AUTO STRIPER Plan of Treatment Health Maintenance Due Date [...] patient's age to complete this topic Insurance [facility] [place] [phone] Advance Directives Documents on File Type Date Recorded 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
--- OUTSIDE RECORDS SUMMARY | 2025-04-10 18:13 | XMS_ITS | Clinical Summary ---
Author Organization [facility] Address [address] [address] Phone Care Team Providers Care Criminology Professor Name Role Phone Priyank Zepeda MD Primary Care Provider [phone] Allergies No known active allergies Medications calcium [...] route 2 times per day Active Pancrelipase, Bbq-Lssw-Prho, (CREON PO) Take 24,000 Units by mouth 3 times daily (with meals). Take 1 capsule by mouth 3 times daily with meals Active spironolactone (ALDACTONE) 25 MG Tablet Take 25 mg by mouth daily. Active BETA CAROTENE PO Take 7,500 mcg by mouth daily. Active Cyanocobalamin (VITAMIN B12 PO) Take 2,500 mcg by mouth daily. Active pancrelipase, lipase-protease- amylase, (Creon) [address] Particles Take 1 Capsule [...] Documents on File Type Date Recorded Patient Ivory Polisher Expl anation Power of Marina Porter for Health Care 08/26/2024 9:18 AM POA-HC Power of Marina Porter for Health Care 08/26/2024 9:18 AM POA-HC Power of Marina Porter for Health Care 08/26/2024 9:13 AM POA-HC Power of Marina Porter for Health Care 08/26/2024 9:08 AM POA-HC Power of Marina Porter for Health Care 08/14/2024 12:10 PM POA HC 07/30/2024 * Full Code (Latest Code Status on File) Date Activated Date Inactivated Comments 08/13/2024 10:26 PM Care Teams Criminology Professor Relationship Specialty Start Date End Date Priyank Zepeda MD [address] [place] [address] PCP - General Internal Medicine 08/08/24
--- OUTSIDE RECORDS SUMMARY | 2025-04-10 18:13 | XMS_ITS | Clinical Summary ---
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 [place] [address] PCP - General 03/11/02
--- OUTSIDE RECORDS SUMMARY | 2025-04-10 18:13 | XMS_ITS | Encounter Summary ---
Author Organization [facility] Address [address] [place] [address] Care Team Providers Care Nurse Unit Manager Name Role Phone Priyank Zepeda MD Primary Care Provider Encounter Details Date Type Department Care Team (Late st Contact Info) Description 10/03/2023 Hospital Follow-up Call [facility] Cardiovascular Care Unit [address] [place] [address] Chelsea Bishop RN Social History Tobacco Use Types Packs/Day Years Used Date Smoking Tobacco: Never [facility] Utilities Answer Date Recorded In the past 12 months has e electric, gas, oil, or water [employer] threatened to shut off services in your [...] on filedocumented in this encounter Care Teams Nurse Unit Manager Relationship Specialty Start Date End Date Priyank Zepeda MD [address] [place] [address] PCP - General INTERNAL MEDICINE 09/19/19 documented as of this encounter
--- OUTSIDE RECORDS SUMMARY | 2025-04-10 18:13 | XMS_ITS | Encounter Summary ---
Author Organization [facility] Address [address] [place] [address] Phone Care Team Providers Care Independent Crop Consultant Name Role Phone Priyank Zepeda MD Primary Care Provider [phone] Encounter Details Date Type Department Care Team (Late st Contact Info) Description 09/04/2024 Lab Requisition [facility] [address] [place] [address] Priyank Zepeda MD [address] [place] [address] Secondary hyperparathyroidism of renal origin [...] - 12.00 10(3)/mcL 09/04/2024 6:[address] [facility] RBC 3.31(L) 3.80 - 5.30 10(6)/mcL 09/04/2024 6:[address] [facility] HEMOGLOBIN (HGB) 10.2(L) 12.0 - 15.8 g/dL 09/04/2024 6:44 PM CDT [facility] HEMATOCRIT (HCT) 32.3(L) 36.0 - 47.0 % 09/04/2024 6:44 PM CDT [facility] MCV 97.6(H) 82.0 - 96.0 fL 09/04/2024 6:44 PM CDT [facility] MCH 30.8 26.0 - 34.0 pg 09/04/2024 6:44 PM CDT [facility] MCHC 31.6 31.0 - 36.0 g/dL 09/04/2024 6:44 PM CDT [facility] PLATELET COUNT 240 140 - 440 10(3)/mcL 09/04/2024 6:44 PM CDT [facility] RDW 18.8(H) 11.8 - 15.5 % 09/04/2024 6:44 PM CDT [facility] MPV 9.8 9.7 - 12.4 fL 09/04/2024 6:44 PM CDT [facility] NEUTROPHILS 75.4(H) 47.0 - 73.0 % 09/04/2024 6:44 PM CDT [facility] LYMPHOCYTES 11.9(L) 18.0 - 42.0 % 09/04/2024 6:44 PM CDT [facility] MONOCYTES 9.3 4.0 - 12.0 % 09/04/2024 6:44 PM CDT [facility] EOSINOPHILS 2.8 0.0 - 5.0 % 09/04/2024 6:44 PM CDT [facility] BASOPHILS 0.6 0.0 - 1.0 % 09/04/2024 6:44 PM CDT [facility] ABSOLUTE NEUTROPHILS 3.48 1.60 - 7.70 10(3)/mcL 09/04/2024 6:44 PM CDT [facility] ABSOLUTE LYMPHOCYTES 0.55(L) 1.30 - 3.20 10(3)/mcL 09/04/2024 6:44 PM CDT [facility] ABSOLUTE MONOCYTES 0.43 0.20 - 1.00 10(3)/mcL 09/04/2024 6:44 PM CDT [facility] ABSOLUTE EOSINOPHIL 0.13 0.00 - 0.40 10(3)/mcL 09/04/2024 6:[address] [facility] ABSOLUTE BASOPHILS 0.03 0.00 - 0.10 10(3)/mcL 09/04/2024 6:44 PM CDT [facility] NRBC PER 100 WBC 0 09/05/19 25 6:[address] [facility] RESULTS ARE CONSISTENT WITH PERIPHERAL SMEAR REVIEW Yes 09/04/2024 6:[address] [facility] RBC MORPHOLOGY CONSISTENT WITH INDICES Yes 09/04/2024 6:[address] [facility] Blood No Phlebotomy Charged / Unknown 09/04/2024 4:55 PM CDT 09/04/2024 6:06 PM CDT Priyank Zepeda MD HEMATOLOGY ORDERABLES Final R esult [facility] [address] [place] [address] * (ABNORMAL) PREALBUMIN (PAB) (09/04/2024 4:55 PM CDT) PRE ALBUMIN 13(L) 14 - 37 mg/dL 09/05/2024 6:[address] [facility] Blood No Phlebotomy Charged / Unknown 09/04/2024 4:55 PM CDT 09/04/2024 6:06 PM CDT Priyank Zepeda MD CHEMISTRY ORDERABLES Final Re sult [facility] [address] [place] [address], * VITAMIN D, 25 HYDROXY TOTAL (09/04/2024 4:55 PM CDT) VITAMIN D, 25 HYDROX 19.0 ng/mL 09/04/2024 6:55 PM CDT [facility] Blood No Phlebotomy Charged / Unknown 09/04/2024 4:55 PM CDT 09/04/2024 6:06 PM CDT Narrative [facility] - 09/04/2024 6:55 PM CDT Published reference ranges for Vitamin D vary depending on time and place and method of testing, and on patient's age, sex, ethnicity and levels of other measured analytes such as parathormone, calcium and phosphorus. The result should be evaluated in conjunction with clinical findings and suspicions. [employer] and Endocrine Clinical Practice Guidelines: Status Vitamin D levels (ng/mL) Deficient <=20 At risk of inadequacy 21-29 Sufficient 30-100 Centers of Disease Control and Prevention Guidelines: Status Vitamin D levels (ng/mL) Deficient <13 At risk of inadequacy 13-19 Sufficient 20-50 Possibly harmful >50 References: [employer], 2010 Dietary reference intakes for calcium and vitamin D. [place]: The National Academies Press. Yo M, Blayne N, Sara LEES, et al., Evaluation, treatment, and prevention of Vitamin D deficiency: an Endocrinology Clinical Practice Guideline. JCEM 2011 96: 7 2223-7816. Kiet A, Dario C, Yemi D, et al., Vitamin D Status: [place], 0025-1541, [facility] data brief, no. 59, [place]: National Center for Health Statistics. 2011. us Priyank Zepeda MD CHEMISTRY ORDERABLES Final Re sult [facility] [address] [place] [address] * (ABNORMAL) THYROID STIMULATING HORMONE (TSH) (09/04/2024 4:55 PM CDT) TSH 9.593(H) 0.300 - 5.000 mIU/L 09/04/2024 6:[address] [facility] Blood No Phlebotomy Charged / Unknown 09/04/2024 4:55 PM CDT 09/04/2024 6:06 PM CDT us Priyank Zepeda MD CHEMISTRY ORDERABLES Final Re sult [facility] [address] [place] [address] * (ABNORMAL) PHOSPHORUS (PO4) (09/04/2024 4:55 PM CDT) PHOSPHORUS 2.3(L) 2.5 - 4.5 mg/dL 09/04/2024 6:[address] [facility] Blood No Phlebotomy Charged / Unknown 09/04/2024 4:55 PM CDT 09/04/2024 6:06 PM CDT Priyank Zepeda MD CHEMISTRY ORDERABLES Final Re sult Performing Organization Address City/[facility]/ZIP Co de Phone Number [facility] [address] [place] [address] * (ABNORMAL) CMP (COMPREHENSIVE METABOLIC PANEL) (09/04/2024 4:55 PM CDT) SODIUM 143 136 - 145 mmol/L 09/04/2024 6:39 PM CDT [facility] POTASSIUM 4.0 3.5 - 5.1 mmol/L 09/04/2024 6:[address] [facility] CHLORIDE 114(H) 98 - 107 mmol/L 09/04/2024 6:39 PM CDT [facility] CO2, VENOUS 23 22 - 30 mmol/L 09/04/2024 6:[address] [facility] ANION GAP 10.0 <18.0 mmol/L 09/04/2024 6:[address] [facility] GLUCOSE 87 70 - 99 mg/dL 09/04/2024 6:[address] [facility] BUN 10 10 - 20 mg/dL 09/04/2024 6:[address] [facility] CREATININE, BLOOD 0.77 0.60 - 1.00 mg/dL 09/04/2024 6:39 PM T [facility] BUN/CREATININE RATIO 13 12 - 20 ratio 09/04/2024 6:39 PM [facility] TOTAL PROTEIN 6.8 6.0 - 8.0 g/dL 09/04/2024 6:39 PM T [facility] ALBUMIN 2.7(L) 3.5 - 5.0 g/dL 09/04/2024 6:39 PM T [facility] A/G RATIO 0.7(L) 1.0 - 2.2 09/04/2024 6:39 PM [facility] CALCIUM 8.2(L) 8.7 - 10.5 mg/dL 09/04/2024 6:39 PM T [facility] T BILI 0.4 0.2 - 1.2 mg/dL 09/04/2024 6:39 PM [facility] SGOT (AST) 52(H) <43 U/L 09/04/2024 6:39 PM T [facility] SGPT (ALT) 37 <56 U/L 09/04/2024 6:39 PM [facility] ALKALINE PHOSPHATASE 137 40 - 150 U/L 09/04/2024 6:39 PM T [facility] GFR, ESTIMATED >60 >=60 09/04/2024 6:39 PM T [facility] Comment: Creatinine Clearance is the preferred criteria for selecting drug dose adjustments in renally impaired patients. The GFR is provided as additional pertinent clinical information. GFR is reported in mL/min/1.73 sq m. Calculation based on the Chronic Kidney Disease Epidemiology Collaboration (CKD- EPI) equation refit without adjustment for race. GFR, EST. >60 >=60 025 6:39 PM T [facility] GFR, EST. NONAFRICAN >60 >=60 09/04/2024 6:39 PM [facility] Blood No Phlebotomy Charged / Unknown 09/04/2024 4:55 PM CDT 09/04/2024 6:06 PM CDT us Priyank Zepeda MD CHEMISTRY ORDERABLES Final Re sult [facility] [address] [place] [address] documented in this encounter Visit Diagnoses Diagnosis Secondary hyperparathyroidism of renal origin Secondary hyperparathyroidism (of renal origin) Vitamin D deficiency, unspecified Hypothyroidism, unspecified documented in this encounter Care Teams Independent Crop Consultant Relationship Specialty Start Date End Date Priyank Zepeda MD [address] [place] [address] PCP - General Internal Medicine 08/08/24 documented as of this encounter
[2025-04-11 09:57] LABS: Parathyroid Intact 60.1 (7.5-53.5)
== END 2025-04-10 09:45 | disposition home or self-care (01) ==
LOC: CHSLAB 09:46
PROVIDERS: PCP Internal Medicine; Visit Provider Internal Medicine Nephrology
DX: I12.9 Hypertensive chronic kidney disease with stage 1 through stage 4 chronic kidney disease, or unspecified chronic kidney disease (principal); N18.2 Chronic kidney disease, stage 2 (mild); D63.1 Anemia in chronic kidney disease; N25.81 Secondary hyperparathyroidism of renal origin; R82.90 Unspecified abnormal findings in urine
CPT/HCPCS: 36415; 80069; 81001; 83540; 83550; 83970; 85025; 87086; 87186

== ENCOUNTER 2025-04-25 11:14 | Outpatient (CLI) | payer OTHER, SELFPAY ==
--- OUTSIDE RECORDS SUMMARY | 2025-04-25 11:17 | XMS_ITS | Encounter Summary ---
Author Organization [facility] Address [address] [place] [address] Phone Care Team Providers Care Crimp Setter Name Role Phone Priyank Zepeda MD Primary Care Provider [phone] Encounter Details Date Type Department Care Team (Late Contact Info) Description 12/06/2019 Orders Only [facility] [address] [place] [address] Kristofer Ortiz MD [address] [place] [address] Chronic kidney disease stage 3 [...] Department Care Team (Late Contact Info) Description 10/21/2025 11:00 AM CDT Office Visit [facility] [address] [place] [address] Kristofer Ortiz MD [address] [place] [address] [address] documented as of this encounter Visit Diagnoses Diagnosis Chronic kidney disease stage 3 (HCC) documented in this encounter Care Teams Crimp Setter Relationship Specialty Start Date End Date Priyank Zepeda MD [address] [place] [address] PCP - General Internal Medicine 05/17/19 documented as of this encounter
--- OUTSIDE RECORDS SUMMARY | 2025-04-25 11:17 | XMS_ITS ---
Author Organization Unknown Address [address] [place] [id number] Phone Care Team Providers Care Drill Sergeant Name Role Phone GARFIELD Ashby Attending Unavailable [...] em Smoking History Never smoker (Never Smoked) [id number] SNOMED CT Sex Female Vital Signs Vital Sign Value Unit Zavala Value Z[facility]ala Unit Date/Time Recent/Initial? Code Code System Body Mass Index 30.45 kg/m2 11/13/2023 14:43 Initial 05066 -5 INC Systolic Blood Pressure 136 mm[Hg] 12/14/2023 08:17 Initial 8480- 6 LOINC Diastolic Blood Pressure 78 mm[Hg] 12/14/2023 08:17 Initial 8462- 4 INC Body Surface Area 1.95 m2 11/13/2023 14:43 Initial 3140- 1 LOINC Height 165.100 0 cm 65.00 in 11/13/2023 14:43 Initial 8302- 2 INC O2 Saturation 99 % 2023 08:17 Initial 14314 -5 INC Pulse 57.0 /min 12/14/2023 08:17 Initial 8867- 4 LOINC Respiration 20 /min 12/14/19 08:17 Initial 9279- 1 LOINC Temperature 36.2 Kait 97.1 F 12/14/19 24 08:17 Initial 8310- 5 LOINC Weight 83.01 kg 183.00 lbs 11/13/2023 14:43 Initial 16039 -7 [facility] Medications Medication Start Date End Date Route Frequency Dose Code Code System Medication Instructions Home Meds Vitamin B12 1000 MCG Sublingual Tablet 12/14/2023 Unknown SUBLINGUAL ONCE A DAY [address] 1000 MCG SUBLINGUAL ONCE A DAY Tums Extra Strength 750 MG Oral Tablet, Chewable 12/14/2023 Unknown ORAL NEEDED 750 MG 7983098 RxNorm TAKE 750 MG ORAL NEEDED Amitriptyline 10MG Oral Tablet 12/14/2023 Unknown ORAL TWICE A DAY 10 MILLIGRA MS 254114 RxNorm TAKE 10 MILLIGRAMS ORAL TWICE A DAY Calcitriol 0.5MCG Oral Capsule, Liquid Filled 12/14/2023 Unknown ORAL TWICE A DAY 2 CAPSULE 120180 RxNorm TAKE 2 CAPSULE ORAL TWICE A DAY Calcium Citrate Powder 12/14/[address]TE NOT APPLICABLE 1 unit(s) RxNorm 1 EACH ROUTE NOT APPLICABLE Eliquis 5MG Oral Tablet 12/14/2023 12/14/19 24 ORAL TWICE A DAY 5 MILLIGRA MS 3362508 RxNorm TAKE 5 MILLIGRAMS ORAL TWICE A DAY FLUoxetine 20MG/5ML Oral Solution 12/14/2023 Unknown ORAL TWICE A DAY 228259 RxNorm TAKE mL ORAL TWICE A DAY Iron 325MG Oral Tablet 12/14/2023 Unknown ORAL THREE TIMES A DAY 325 MILLIGRA MS 251656 RxNorm TAKE 325 MILLIGRAMS ORAL THREE TIMES A DAY Levothyroxine 125MCG Oral Tablet 12/14/2023 Unknown ORAL ONCE A DAY 0.5 TABLET 358332 RxNorm TAKE 0.5 TABLET ORAL ONCE A DAY Loratadine 10MG Oral Tablet 12/14/2023 Unknown ORAL NEEDED 10 MILLIGRA MS 332563 RxNorm TAKE 10 MILLIGRAMS ORAL NEEDED Metoprolol Succinate 50MG Oral Tablet, Extended Release 12/14/2023 Unknown ORAL ONCE A DAY 50 MILLIGRA MS 761826 RxNorm TAKE 50 MILLIGRAMS ORAL ONCE A DAY Potassium Chloride 20MEQ Oral Tablet, Extended Release 12/14/2023 Unknown ORAL TWICE A DAY 20 MEQ 3867798 RxNorm TAKE 20 MEQ ORAL TWICE A DAY Sodium Bicarbonate 650MG Oral Tablet 12/14/2023 Unknown ORAL THREE TIMES A DAY 650 MILLIGRA MS 168065 RxNorm TAKE 650 MILLIGRAMS ORAL THREE TIMES A DAY Tab-A-Ezio [id number] U-6MCG Oral Tablet 12/14/2023 Unknown ORAL ONCE A DAY 1 unit(s) 163520 RxNorm TAKE 1 EACH ORAL ONCE A [...] Code Syste m Vocal cord nodule completed 14444153 SNOMEDC T Fracture of tibia completed 63159942 SNOMEDC T Volvulus completed 0354121 SNOMEDCT APPENDECTOMY completed 93396821 SNOMEDCT Removal of kidney stone completed 0036462 S NOMEDCT Anesthesia for lower intesti nal endoscopic procedures, endoscope introduce 12/14/2023 completed 37809 CPT Gastric bypass completed 959514594 SNOMEDCT History of parathyroidectomy completed 0722771 25588462 SNOMEDCT Colonoscopy, flexible; with biopsy, single or multiple 12/14/2023 completed 05315 CPT Problems Problem Start Date Resolved Date Status Code Code System CHRONIC KIDNEY DISEASE, STAG E 3A active 644492540 SNOMED-CT Allergies and Adverse Reactions Allergy Substance Reaction Severity Start Date Concern Status Code Code System ADHESIVE Itching (SNOMED-CT: 358328400) Active SUCCINYLCHOLINE CHLORIDE HARD TO WAKE UP (SNOMED-CT: null) Active 3565 RxNorm CIPRO REDNESS IV ONLY (SNOMED-CT: null) Mild Active 115384 RxNorm Plan of Treatment Colonoscopy 12/14/2023 Encounters Encounter Diagnosis Start Date Code Code Sys tem Noninfective gastroenteritis and colitis, unspecified 12/14/2023 SNOMED-CT Personal Care Team Section Performer Name Performer Role Active Date Inactive KIERAN Gilbert PCP - Primary care physician 2024-04-16 Procedures Notes
--- OUTSIDE RECORDS SUMMARY | 2025-04-25 11:17 | XMS_ITS | Encounter Summary ---
Author Organization [facility] Address [address] [place] [address] Phone Care Team Providers Care Chemical Laboratory Tester Name Role Phone Priyank Zepeda MD Primary Care Provider [phone] Encounter Details Date Type Department Care Team (Late Contact Info) Description 01/03/2020 Orders Only [facility] [address] [place] [address] Kristofer Ortiz MD [address] [place] [address] Chronic kidney disease stage 3 [...] Description 10/21/2025 11:00 AM CDT Office Visit [facility] [address] [place] [address] Kristofer Ortiz MD [address] [place] [address] [address] documented as of this encounter Visit Diagnoses Diagnosis Chronic kidney disease stage 3 (HCC) documented in this encounter Care Teams Chemical Laboratory Tester Relationship Specialty Start Date End Date Priyank Zepeda MD [address] [place] [address] PCP - General Internal Medicine 05/17/19 documented as of this encounter
--- OUTSIDE RECORDS SUMMARY | 2025-04-25 11:17 | XMS_ITS | Encounter Summary ---
Author Organization [facility] Address [address] [place] [address] Care Team Providers Care Crime Investigator Special Agent Name Role Phone Priyank Zepeda MD Primary Care Provider [phone] Encounter Details Date Type Department Care Team (Late st Contact Info) Description 10/03/2023 Hospital Follow-up Call [facility] [address] [place] [address] Chelsea Bishop RN Social History Tobacco Use Types Packs/Day Years Used Date Smoking Tobacco: Never [facility] Utilities Answer Date Recorded In the past 12 months has e electric, gas, oil, or water [employer] threatened to shut off services in your [...] time in the past 12 m [facility], were you homeless or living in a fci (including now)? No 09/28/2023 Comments Unknown Sex [...] on filedocumented in this encounter Care Teams Crime Investigator Special Agent Relationship Specialty Start Date End Date Priyank Zepeda MD [address] [place] [address] PCP - General INTERNAL MEDICINE 09/19/19 documented as of this encounter
--- OUTSIDE RECORDS SUMMARY | 2025-04-25 11:17 | XMS_ITS | Clinical Summary ---
Author Organization [facility] Address [address] [place] [address] Care Team Providers Care Senior Controls Technician Name Role Phone Gayla Villar Primary Care Provider [phone] Social History Tobacco Use Types Packs/Day Years Used Date Smoking Tobacco: Never Assessed Comments Unknown Sex and Gender Information Value Date Recorded Sex Assigned at Not on file Legal Sex Female 4:22 PM CONFIGURATION SPECIALIST Gender Identity Not on file Sexual Orientation [...] series) 2034 Insurance [place] Care Teams Senior Controls Technician Relationship Specialty Start Date End Date Gayla Villar [address] [place] [address] PCP - General 03/11/02
--- OUTSIDE RECORDS SUMMARY | 2025-04-25 11:17 | XMS_ITS | Encounter Summary ---
Author Organization [facility] Address [address] [place] [address] Phone Care Team Providers Care Web Applications Architect Name Role Phone Priyank Zepeda MD Primary Care Provider [phone] Reason for Visit * Reason Onset Date Comments Medication Management 08/13/2024 Encounter Details Date Type Department Care Team (Late st Contact Info) Description 08/13/2024 Telephone [facility] [address] [place] [address] Eloisa Ruiz, PT Medication Management Social History Tobacco Use Types Packs/Day Years Used Date Smoking Tobacco: Never Assessed Comments Unknown Sex and Gender Information Value Date Recorded Sex Assigned at Not on file Legal Sex Female 11:40 PM CDT Gender Identity Not on file Sexual Orientation Not on file documented as of this encounter Functional Status * BP Answer Date of Assessment Author 120/78 08/16/2024 2:02 PM CDT Yury Ruiz, PT * Temp Answer Date of Assessment Author 97.3 08/16/2024 2:02 PM CDT Yury Ruiz, PT * Pulse Answer Date of Assessment Author 77 08/16/2024 2:02 PM CDT Yury Ruiz, PT * Resp Answer Date of Assessment Author 16 08/16/2024 2:02 PM CDT Yury Ruiz, PT * SpO2 Answer Date of Assessment Author 99 08/16/2024 2:02 PM CDT Yury Ruiz, PT * Height Answer Date of Assessment Author 65 08/16/2024 1:33 PM CDT Vilma Mendoza OT documented as of this encounter Mental Status * BP Answer Entry Date Author 120/78 08/16/2024 2:02 PM CDT Yury Ruiz, PT * Temp Answer Entry Date Author 97.3 08/16/2024 2:02 PM CDT Yury Ruiz, PT * Pulse Answer Entry Date Author 77 08/16/2024 2:02 PM CDT Yury Ruiz, PT * SpO2 Answer Entry Date Author 99 08/16/2024 2:02 PM CDT Eloisa Ruiz, PT documented in this encounter Miscellaneous Notes * Telephone Encounter - Eloisa Ruiz, PT - 08/13/2024 10:37 PM CDT S - Medication discrepancies B - Current [facility] patient admitted on 08/13/24 for [...] on filedocumented in this encounter Care Teams Web Applications Architect Relationship Specialty Start Date End Date Priyank Zepeda MD [address] [place] [address] PCP - General Internal Medicine 08/08/24 documented as of this encounter
--- OUTSIDE RECORDS SUMMARY | 2025-04-25 11:17 | XMS_ITS | Encounter Summary ---
Author Organization [facility] Address [address] [place] [address] Phone Care Team Providers Care Seating Captain Name Role Phone Priyank Zepeda MD Primary Care Provider [phone] Reason for Visit * Reason Onset Date Comments Medication Management 08/16/2024 Encounter Details Date Type Department Care Team (Late st Contact Info) Description 08/16/2024 Telephone [facility] [address] [place] [address] Eloisa Ruiz, PT Medication Management Social History [...] B - Current [facility] patient was observation at [facility] for low potassium from /08/15/24. A [...] discrepancies and update the medication list in [facility] to reflect theany changes. Notify Home Health when complete to facilitate patient education. documented in this encounter Plan of Treatment Not on file documented as of this encounter Visit Diagnoses Not on filedocumented in this encounter Care Teams Seating Captain Relationship Specialty Start Date End Date Priyank Zepeda MD [address] [place] [address] PCP - General Internal Medicine 08/08/24 documented as of this encounter
--- OUTSIDE RECORDS SUMMARY | 2025-04-25 11:17 | XMS_ITS | Encounter Summary ---
Author Organization [facility] Address [address] [place] [address] Phone Care Team Providers Care Motor Vehicle Inspector Name Role Phone Priyank Zepeda MD Primary Care Provider [phone] Encounter Details Date Type Department Care Team (Late st Contact Info) Description 09/04/2024 Lab Requisition [facility] [address] [place] [address] Priyank Zepeda MD [address] [place] [address] Secondary hyperparathyroidism of renal origin [...] * BP Answer Date of Assessment Author 110/75 09/06/2024 11:08 AM CDT Azar Salazar ANY COMMODITY BUYER * Temp Answer Date of Assessment Author 97.3 09/06/2024 11:08 AM CDT Azar Salazar, BARRY * Pulse Answer Date of Assessment Author 88 09/06/2024 11:08 AM CDT Azar Salazar, ANY COMMODITY BUYER * Resp Answer Date of Assessment Author 18 09/06/2024 11:08 AM CDT Azar Salazar, ANY COMMODITY BUYER * SpO2 Answer Date of Assessment Author 98 09/06/2024 11:08 AM CDT Laws, Da wn D, ANY COMMODITY BUYER * Weight Answer Date of Assessment Author 2866 09/06/2024 11:08 AM CDT Laws, Da wn D, ANY COMMODITY BUYER documented as of this encounter Mental Status * BP Answer Entry Date Author 110/75 09/06/2024 11:08 AM CDT Laws, Da wn D, ANY COMMODITY BUYER * Temp Answer Entry Date Author 97.3 09/06/2024 11:08 AM CDT Laws, Da wn D, ANY COMMODITY BUYER * Pulse Answer Entry Date Author 88 09/06/2024 11:08 AM CDT Laws, Da wn D, ANY COMMODITY BUYER * SpO2 Answer Entry Date Author 98 09/06/2024 11:08 AM CDT Laws, Da wn D, ANY COMMODITY BUYER * Weight Answer Entry Date Author 2866 09/06/2024 11:08 AM CDT Laws, Da wn D, ANY COMMODITY BUYER documented in this encounter Plan of Treatment Scheduled Orders [...] - 15.8 g/dL 09/04/2024 6:[address] [facility] HEMATOCRIT (HCT) 32.3(L) 36.0 - 47.0 % 09/04/2024 6:[address] [facility] MCV 97.6(H) 82.0 - 96.0 fL 09/04/2024 6:[address] [facility] MCH 30.8 26.0 - 34.0 pg 09/04/2024 6:[address] [facility] MCHC 31.6 31.0 - 36.0 g/dL 09/04/2024 6:[address] [facility] PLATELET COUNT 240 140 - 440 10(3)/mcL 09/04/2024 6:[address] [facility] RDW 18.8(H) 11.8 - 15.5 % 09/04/2024 6:[address] [facility] MPV 9.8 9.7 - 12.4 fL 09/04/2024 6:[address] [facility] NEUTROPHILS 75.4(H) 47.0 - 73.0 % 09/04/2024 6:[address] [facility] LYMPHOCYTES 11.9(L) 18.0 - 42.0 % 09/04/2024 6:[address] [facility] MONOCYTES 9.3 4.0 - 12.0 % 09/04/2024 6:[address] [facility] EOSINOPHILS 2.8 0.0 - 5.0 % 09/04/2024 6:[address] [facility] BASOPHILS 0.6 0.0 - 1.0 % 09/04/2024 6:44 PM CDT [facility] ABSOLUTE NEUTROPHILS 3.48 1.60 - 7.70 10(3)/[facility] 09/04/2024 6:44 PM CDT [facility] ABSOLUTE LYMPHOCYTES 0.55(L) 1.30 - 3.20 10(3)/[facility] 09/04/2024 6:44 PM CDT [facility] ABSOLUTE MONOCYTES 0.43 0.20 - 1.00 10(3)/[facility] 09/04/2024 6:44 PM CDT [facility] ABSOLUTE EOSINOPHIL 0.13 0.00 - 0.40 10(3)/[facility] 09/04/2024 6:44 PM CDT [facility] ABSOLUTE BASOPHILS 0.03 0.00 - 0.10 10(3)/[facility] 09/04/2024 6:44 PM CDT [facility] NRBC PER 100 WBC 0 09/05/19 6:44 PM CDT [facility] RESULTS ARE CONSISTENT WITH PERIPHERAL SMEAR REVIEW Yes 09/04/2024 6:44 PM CDT [facility] RBC MORPHOLOGY CONSISTENT WITH INDICES Yes 09/04/2024 6:44 PM CDT [facility] Blood No Phlebotomy Charged / Unknown 09/04/2024 4:55 PM CDT 09/04/2024 6:06 PM CDT us Priyank Zepeda MD HEMATOLOGY ORDERABLES Final R esult [facility] [place] [address] * (ABNORMAL) PREALBUMIN (PAB) (09/04/2024 4:55 PM CDT) PRE ALBUMIN 13(L) 14 - 37 mg/dL 09/05/2024 6:00 PM CDT [facility] Blood No Phlebotomy Charged / Unknown 09/04/2024 4:55 PM CDT 09/04/2024 6:06 PM CDT Priyank Zepeda MD CHEMISTRY ORDERABLES Final Re sult Performing Organization Address City/[facility]/ZIP Co de Phone Number [facility] [address] [place] [address], * VITAMIN D, 25 HYDROXY TOTAL (09/04/2024 4:55 PM CDT) VITAMIN D, 25 HYDROX 19.0 ng/mL 09/04/2024 6:55 PM CDT [facility] Blood No Phlebotomy Charged / Unknown 09/04/2024 4:55 PM CDT 09/04/2024 6:06 PM CDT Narrative [facility] - 09/04/2024 6:55 PM CDT Published reference ranges for Vitamin D vary depending on time and place and method of testing, and on patient's age, sex, ethnicity and levels of other measured analytes such as parathormone, calcium and phosphorus. The result should be evaluated in conjunction with clinical findings and suspicions. [place] of [employer] and Endocrine Clinical Practice Guidelines: Status Vitamin D levels (ng/mL) Deficient <=20 At risk of inadequacy 21-29 Sufficient 30-100 Centers of Disease Control and Prevention Guidelines: Status Vitamin D levels (ng/mL) Deficient <13 At risk of inadequacy 13-19 Sufficient 20-50 Possibly harmful >50 References: [place] of [employer], 2010 Dietary reference intakes for calcium and vitamin D. [place]: The National Academies Press. Yo M, Blayne N, Sara LEES, et al., Evaluation, treatment, and prevention of Vitamin D deficiency: an Endocrinology Clinical Practice Guideline. JCEM 2011 96: 7 3966-0808. Kiet A, Dario C, Yemi D, et al., Vitamin D Status: [place], 6544-3795, [facility] data brief, no. 59, MD Lance: [facility] for Health Statistics. 2011. Priyank Zepeda MD CHEMISTRY ORDERABLES Final Re sult Performing Organization Address City/[facility]/ZIP Co de Phone Number [facility] [place] [address] * (ABNORMAL) THYROID STIMULATING HORMONE (TSH) (09/04/2024 4:55 PM CDT) TSH 9.593(H) 0.300 - 5.000 mIU/L 09/04/2024 6:[address] [facility] Blood No Phlebotomy Charged / Unknown 09/04/2024 4:55 PM CDT 09/04/2024 6:06 PM CDT us Priyank Zepeda MD CHEMISTRY ORDERABLES Final Re sult [facility] [place] [address] * (ABNORMAL) PHOSPHORUS (PO4) (09/04/2024 4:55 PM CDT) PHOSPHORUS 2.3(L) 2.5 - 4.5 mg/dL 09/04/2024 6:[address] [facility] Blood No Phlebotomy Charged / Unknown 09/04/2024 4:55 PM CDT 09/04/2024 6:06 PM CDT us Priyank Zepeda MD CHEMISTRY ORDERABLES Final Re sult [facility] [place] [address] * (ABNORMAL) CMP (COMPREHENSIVE METABOLIC PANEL) (09/04/2024 4:55 PM CDT) SODIUM 143 136 - 145 mmol/L 09/04/2024 6:[address] [facility] POTASSIUM 4.0 3.5 - 5.1 mmol/L 09/04/2024 6:[address] [facility] CHLORIDE 114(H) 98 - 107 mmol/L 09/04/2024 6:39 PM CDT [facility] CO2, VENOUS 23 22 - 30 mmol/L 09/04/2024 6:39 PM CDT [facility] ANION GAP 10.0 <18.0 mmol/L 09/04/2024 6:39 PM CDT [facility] GLUCOSE 87 70 - 99 mg/dL 09/04/2024 6:39 PM CDT [facility] BUN 10 10 - 20 mg/dL 09/04/2024 6:39 PM CDT [facility] CREATININE, BLOOD 0.77 0.60 - 1.00 mg/dL 09/04/2024 6:39 PM CDT [facility] BUN/CREATININE RATIO 13 12 - 20 ratio 09/04/2024 6:39 PM CDT [facility] TOTAL PROTEIN 6.8 6.0 - 8.0 g/dL 09/04/2024 6:39 PM CDT [facility] ALBUMIN 2.7(L) 3.5 - 5.0 g/dL 09/04/2024 6:39 PM CDT [facility] A/G RATIO 0.7(L) 1.0 - 2.2 09/04/2024 6:39 PM CDT [facility] CALCIUM 8.2(L) 8.7 - 10.5 mg/dL 09/04/2024 6:[address] [facility] T BILI 0.4 0.2 - 1.2 mg/dL 09/04/2024 6:[address] [facility] SGOT (AST) 52(H) <43 U/L 09/04/2024 6:[address] [facility] SGPT (ALT) 37 <56 U/L 09/04/2024 6:[address] [facility] ALKALINE PHOSPHATASE 137 40 - 150 U/L 09/04/2024 6:[address] [facility] GFR, ESTIMATED >60 >=60 09/04/2024 6:[address] [facility] Comment: Creatinine Clearance is the preferred criteria for selecting drug dose adjustments in renally impaired patients. The GFR is provided as additional pertinent clinical information. GFR is reported in mL/min/1.73 sq m. Calculation based on the Chronic Kidney Disease Epidemiology Collaboration (CKD- EPI) equation refit without adjustment for race. GFR, EST. >60 >=60 025 6:[address] [facility] GFR, EST. NONAFRICAN >60 >=60 09/04/2024 6:[address] [facility] Blood No Phlebotomy Charged / Unknown 09/04/2024 4:55 PM CDT 09/04/2024 6:06 PM CDT us Priyank Zepeda MD CHEMISTRY ORDERABLES Final Re sult [facility] [place] [address] documented in this encounter Visit Diagnoses Diagnosis Secondary hyperparathyroidism of renal origin Secondary hyperparathyroidism (of renal origin) Vitamin D deficiency, unspecified Hypothyroidism, unspecified documented in this encounter Care Teams Motor Vehicle Inspector Relationship Specialty Start Date End Date Priyank Zepeda MD [address] [place] [address] PCP - General Internal Medicine 08/08/24 documented as of this encounter
--- OUTSIDE RECORDS SUMMARY | 2025-04-25 11:17 | XMS_ITS | Encounter Summary ---
Author Organization [facility] Address [address] [place] [address] Phone Care Team Providers Care Draftsperson Name Role Phone Priyank Zepeda MD Primary Care Provider [phone] Encounter Details Date Type Department Care Team ([facility] Contact Info) Description 04/23/2025 Orders Only [facility]. [address] [place] [address] Ana Duran, RN [address] [place] [address] Social History Tobacco Use Types Packs/Day Years [...] Upcoming Encounters Date Type Department Care Team ([facility] Contact Info) Description 10/21/2025 11:00 AM CDT Office Visit [facility]. [address] [place] [address] Kristofer Ortiz MD [address] [place] [address] [id number] documented as of this encounter Visit Diagnoses Not on filedocumented in this encounter Care Teams Draftsperson Relationship Specialty Start Date End Date Priyank Zepeda MD [address] [place] [address] PCP - General Internal Medicine 05/17/19 documented as of this encounter
--- OUTSIDE RECORDS SUMMARY | 2025-04-25 11:17 | XMS_ITS | Clinical Summary ---
Author Organization [facility] Address [address] [address] Phone Care Team Providers Care Police Pilot Name Role Phone Priyank Zepeda MD Primary Care Provider [phone] Allergies No known active allergies Medications calcium [...] route 2 times per day Active Pancrelipase, Rsx-Uzmm-Eshp, (CREON PO) Take 24,000 Units by mouth 3 times daily (with meals). Take 1 capsule by mouth 3 times daily with meals Active spironolactone (ALDACTONE) 25 MG Tablet Take 25 mg by mouth daily. Active BETA CAROTENE PO Take 7,500 mcg by mouth daily. Active Cyanocobalamin (VITAMIN B12 PO) Take 2,500 mcg by mouth daily. Active pancrelipase, lipase-protease- amylase, (Creon) [address] Particles Take 1 Capsule [...] 1959 Hepatitis C Virus (HCV) Screening 1959 Varicella Immunization (1 of 2 - 13+ 2-dose series) 1972 Pap Smear 1980 Cervical Cancer Screening (CCS) [...] Documents on File Type Date Recorded Patient Grinder Operator Expl anation Power of Online Marketing Manager for Health Care 08/26/2024 9:18 AM POA-HC Power of Online Marketing Manager for Health Care 08/26/2024 9:18 AM POA-HC Power of Online Marketing Manager for Health Care 08/26/2024 9:13 AM POA-HC Power of Online Marketing Manager for Health Care 08/26/2024 9:08 AM POA-HC Power of Online Marketing Manager for Health Care 08/14/2024 12:10 PM POA HC 07/30/2024 * Full Code (Latest Code Status on File) Date Activated Date Inactivated Comments 08/13/2024 10:26 PM Care Teams Police Pilot Relationship Specialty Start Date End Date Priyank Zepeda MD [address] [place] [address] PCP - General Internal Medicine 08/08/24
--- OUTSIDE RECORDS SUMMARY | 2025-04-25 11:17 | XMS_ITS | Clinical Summary ---
Author Organization [facility] Address [address] [place] [address] Care Team Providers Care Billboard Erector Helper Name Role Phone Priyank Zepeda MD Primary Care Provider [phone] Allergies Active Allergy Reactions Criticality Noted Date [...] Packs/Day Years Used Date Smoking Tobacco: Never [facility] Field Dailiesities Answer Date Recorded In the past 12 months has e [employer], [employer], oil, or water [employer] threatened to shut off services in your [...] in a group home (including now)? No 11/17/2023 Comments Unknown [...] Most Recently Relevant to Health Maintenance Insurance [place] Advance Directives * Full Code (Latest Code Status on File) Date Activated Date Inactivated Comments 11/17/2023 1:12 AM 11/18/2023 5:01 PM * Full Code Date Activated Date Inactivated Comments 09/28/2023 1:27 AM 10/02/2023 3:59 PM Care Teams Billboard Erector Helper Relationship Specialty Start Date End Date Priyank Zepeda MD [address] [place] [address] PCP - General INTERNAL MEDICINE 09/19/19
--- OUTSIDE RECORDS SUMMARY | 2025-04-25 11:18 | XMS_ITS | Clinical Summary ---
Author Organization [facility] Address [address] [place] [address] Care Team Providers Care Hot Strip Mill Supervisor Name Role Phone Priyank Zepeda MD Primary Care Provider [phone] Source Comments [facility],non-owned Affiliates and Associated Physician Practices is amultiple site organization consisting of ambulatory clinics and hospital sitesin [place], [place], [place] and [place]. This disclosure is being madepursuant to the Care Everywhere program and may not contain all information available regarding this patient. Last updated 18.[facility] Allergies Active Allergy Reactions Criticality Noted Date [...] once daily 42 Each 08/07/2024 1:10 PM GAS ENGINE PERFORMANCE ENGINEER 5 Active ferrous sulfate 325 (65 FE) MG tablet Take 1 (one) tablet by mouth once daily after lunch 30 tablet 08/07/2024 1:10 PM GAS ENGINE PERFORMANCE ENGINEER 5 Active folic acid (Folvite) 1 MG tablet Take 1 (one) tablet by mouth once daily 30 tablet 08/07/2024 1:10 PM GAS ENGINE PERFORMANCE ENGINEER 5 Active pantoprazole EC (Protonix) 40 MG tablet Take 1 (one) tablet by mouth 2 times daily, before breakfast and supper 60 tablet 08/07/2024 1:10 PM GAS ENGINE PERFORMANCE ENGINEER 5 Active sucralfate (Carafate) 1 GM/10ML suspension Take 10 mL by mouth 4 times daily - before meals & nightly 420 mL 08/07/2024 1:10 PM GAS ENGINE PERFORMANCE ENGINEER 5 Active Cholecalciferol (vitamin D3) 1.25 MG (89337 UT) capsule Take 1 (one) capsule by mouth every 7 days 5 capsule 5 Active furosemide (Lasix) 40 MG tablet Take 1 (one) tablet by mouth once daily 30 tablet 08/07/2024 1:10 PM GAS ENGINE PERFORMANCE ENGINEER 5 Active Calcium Carbonate Antacid (calcium carbonate, 500 mg elemental Ca/5 mL,) 1250 MG/5ML suspension Take 10 mL by mouth 3 times daily with meals 473 mL 1 5 Active pancrelipase (Creon 24,000) [address] units capsule Take 1 (one) capsule by [...] medical care, and heating? Somewhat hard 07/28/2024 [facility] [place] of Occupat ional Health - Occupational Stress [...] Comments Blood Pressure 112/78 08/07/2024 2:44 PM GAS ENGINE PERFORMANCE ENGINEER Pulse 93 08/07/2024 2:44 PM GAS ENGINE PERFORMANCE ENGINEER Temperature 37.5 C (99.5 F) 08/07/2024 11:33 AM GAS ENGINE PERFORMANCE ENGINEER Respiratory Rate 18 08/07/2024 11:3 3 AM GAS ENGINE PERFORMANCE ENGINEER Oxygen Saturation 97% 08/07/2024 2:44 PM GAS ENGINE PERFORMANCE ENGINEER Inhaled Oxygen Concentration - - Weight 87.5 kg (192 lb 14.4 oz) 025 12:04 AM GAS ENGINE PERFORMANCE ENGINEER Height 165.1 cm (5' 5) 07/28/2024 4:01 PM GAS ENGINE PERFORMANCE ENGINEER Body Mass Index 32.1 07/28/2024 4:01 PM GAS ENGINE PERFORMANCE ENGINEER Plan of Treatment Health Maintenance Due Date Last Done Comments BONE DENSITY TESTING 1959 COLOGUARD (AGES 45-75) - COLON CA SCREENING 1959 CT COLONOGRAPHY - COLON CA SCREENING 1959 FIT - COLON CA SCREENING 1959 FLEX SIG - COLON CA SCREENING 1959 LIPID TESTING 1959 HIV SCREENING 1974 HEPATITIS C SCREENING 06/21/1977 DTAP/TDAP/TD VACCINES (1 - Tdap) 1978 Cervical Cancer Screening 1980 PAP SMEAR 1980 PAP with HPV 1989 PNEUMOCOCCAL VACCINE 50+ (1 of 1 - PCV) 2009 Respiratory Syncytial Virus (RSV) Vaccine Pt: or over 60 yrs (1 - Risk 50-74 years 1-dose series) 2009 MAMMOGRAM 11/18/2022 11/18/2020, 11/03, 11/01/2019 DEPRESSION [...] patient's age to complete this topic Insurance [facility] Advance Directives Documents on File Type Date Recorded Patient Student Support Services Director Expl anation Adv Directive/Living Will/POA 08/08/2024 10:51 PM Adv Directive/Living Will/POA 08/01/2024 8:23 PM Adv Directive/Living Will/POA 07/31/2024 7:48 PM * Full Code (Latest Code Status on File) Date Activated Date Inactivated Comments 07/28/2024 3:11 PM 08/07/2024 5:49 PM Care Teams Hot Strip Mill Supervisor Relationship Specialty Start Date End Date Priyank Zepeda MD [address] [place] [address] PCP - General 02/23/22
--- OUTSIDE RECORDS SUMMARY | 2025-04-25 11:18 | XMS_ITS | Clinical Summary ---
Author Organization [facility] Facility Address [address] [address] Care Team Providers Care Provider Network Manager Name Role Phone Priyank Zepeda MD Primary Care Provider [phone] Allergies Active Allergy Reactions Criticality Noted Date Comments Ciprofloxacin Other (see comments) 05/09/2019 Allergy not confirmed, she has never had a problem with oral Cipro. Patient had IV Cipro years ago and had a red line near IV after her last dose. Succinylcholine Chloride Other (see comments) 05/09/2019 Medications amitriptyline (ELAVIL) 10 MG tablet Take [...] and 5 mg in the evening. Active pantoprazole (PROTONIX) 40 MG EC tablet [...] 5 Active Cholecalciferol (Vitamin D3) 1.25 MG (13322 UT) capsule Take 50,000 Units by mouth in the morning and 50,000 Units in the evening. Active calcium carbonate EX (TUMS EX) 750 MG chewable tablet Chew 750 mg 1 (one) time each day Active Pancrelipase, Ckf-Jdvl-Ngrd, (Creon) 07511-529335 units capsule delayed-release particles Take 36,000 Units by mouth 3 times daily with meals and 2 times daily with snacks. Active carvedilol (COREG) 6.25 MG tablet Take 6.25 mg by mouth in the morning and 6.25 mg in the evening. Take with meals. Active ferrous sulfate 325 (65 Fe) MG EC tablet Take 325 mg by mouth 1 (one) time each day with breakfast Do not crush, chew, or split. 04/14/20 25 Discontinu ed(Therapy completed) ciprofloxacin (CIPRO) 250 MG tablet Take 250 mg by mouth 1 (one) time each day 04/14/20 25 Discontinu ed(Reorder (does not appear on AVS)) ciprofloxacin (CIPRO) 250 MG tablet Take 1 tablet (250 mg total) by mouth 1 (one) time each day for 7 days 7 tablet 5 04/21/20 25 Active Problems Problem Noted Date Diagnosed Date Acidosis 05/09/2019 Chronic kidney disease stage 2 05/09/2019 Essential hypertension 05/09/2019 Primary hyperparathyroidism 05/09/2019 Encounters Date Type Department Care Team Description 04/23/2025 Orders Only [facility]. [address] [place] [id number] Ana Duran RN 04/22/2025 11:45 AM TIMBER GRADER Office Visit [facility]. [address] [place] [id number] Kristofer Ortiz MD Chronic kidney disease, stage 2 (mild) (Primary Dx); Secondary hyperparathyroidism of renal origin (HCC) 04/14/2025 Orders Only [facility] [address]. [address] [place] [phone] Ana Paula MA 04/14/2025 Orders Only [facility]. [address] [place] [phone] Ana Paula MA from Last 3 Months Family History Medical [...] CDT Respiratory Rate 18 05/15/2018 11:00 AM TIMBER GRADER Oxygen Saturation 99% 10/22/2024 10:46 AM CDT Inhaled Oxygen Concentration - - Weight 63 kg (139 lb) 10/22/2024 10:46 AM CDT Height 160 cm (5' 3) 10/22/2024 10:46 AM CDT Body Mass Index 24.62 10/22/2024 10:46 AM CDT Plan of Treatment Upcoming Encounters Date Type Department Care Team (Late st Contact Info) Description 10/21/2025 11:00 AM CDT Office Visit [facility]. [address] [place] [address] Kristofer Ortiz MD [address] [place] [address] Health Maintenance Due Date Last Done Comments Breast Cancer Screening 1960 Pneumococcal Vaccine: 50+ Years (1 of 2 - PCV) 1978 Influenza Vaccine (#1) 2025 , 03/27/2023, 03/06/2022, Additional history exists Colorectal Cancer Screening: Colonoscopy Discontinued 12/14/2023, 11/04/2021 Hepatitis B Vaccine Aged Out No longe r eligible based on patient's age to complete this topic Insurance [facility] Advance Directives Documents on File Type Date Recorded Patient [employer] anation Power of Aqueduct [employer] Reservoir Keeper 10/25/2021 11:10 AM Othe r - POA Power of Aqueduct And Reservoir Keeper 10/25/2021 11:10 AM Othe r - POA Care Teams Provider Network Manager Relationship Specialty Start Date End Date Priyank Zepeda MD [address] [place] [address] [phone] (work) PCP - General Internal Medicine 05/17/19
[2025-04-25 11:36] LABS: Add Urine Microscopic? YES; Appearance Urine Clear (Clear); Glucose Urine UA Negative (Negative); Leukocyte Esterase Ur 1+ (Negative); Nitrate Urine Negative (Negative); Specific Grav Ur 1.010 (1.010-1.020)
== END 2025-04-25 11:15 | disposition home or self-care (01) ==
PROVIDERS: PCP Internal Medicine; Visit Provider Internal Medicine
DX: N39.0 Urinary tract infection, site not specified (principal)
CPT/HCPCS: 81001; 87086